=== PATIENT | female | born 1945 | race Caucasian/White ===

== ENCOUNTER → 2016-06-01 | Outpatient (CLI) | payer MEDICARE, OTHER ==
--- NOTE | 2016-06-01 11:43 | MM ---
Reason for exam: additional evaluation requested from prior study. Last mammogram was performed 1 year ago. History: Patient is postmenopausal. Benign MG pre op needle loc LT of the left breast, September 06, 2015. Physical Findings: Nurse did not find any significant physical abnormalities on exam. MG 3D Diag Mammo W/Cad DAMIEN Bilateral CC and MLO view(s) were taken. Prior study comparison: May 20, 2015, left breast MG 3d diag mammo w/cad LT. February 09, 2015, bilateral MG screening mammo w CAD. There are scattered fibroglandular densities. Surgical clips in the left breast. Surgical maker on left breast. These results were verbally communicated with the patient and result sheet given to the patient on 06/01/16. ASSESSMENT: Benign, BI-RAD 2 RECOMMENDATION: Routine screening mammogram of both breasts in 1 year.
== END | disposition home or self-care (01) ==
LOC: RADMAMWWP 10:39
PROVIDERS: ATTEND Surgery
DX: R92.8 Other abnormal and inconclusive findings on diagnostic imaging of breast (principal)
CPT/HCPCS: G0204; G0279

== ENCOUNTER → 2016-09-17 | Outpatient (CLI) | payer MEDICARE, OTHER ==
[~2016-09-17] MED LIST: REGADENOSON 0.4 MG/5 ML SYRINGE IV ONE
--- NOTE | 2016-09-17 10:57 | EST ---
DATE OF SERVICE: 09/17/2016 AGE: 71Y SEX: F HT: 5'7" WT: 267 lbs. Lexiscan Cardiolite Stress Test *Heart Rate Blood Pressure *Rest: 102 Rest: 185/76 * *Max. Achieved: 116 Maximum BP: 237/75 85% PMHR: 128 100% PMHR: 151 *METS: - INDICATIONS: Coronary artery disease. MEDICATIONS: - Baseline EKG revealed a sinus rhythm with sinus tachycardia without significant ST-T changes. With Lexiscan administration, patient complained of fatigue and transient nausea that resolved. Heart rate was about 110 beats per minute, blood pressure changed to 180/70 to 220/80 and came back to baseline. EKG revealed inferolateral ST abnormality of a mild degree raising the possibility of ischemia without subjective symptoms of angina or arrhythmia. By EKG criteria, this is a borderline positive stress test with Lexiscan administration, without subjective symptoms of angina. The nuclear scan results, which are more pertinent, will be reported by the radiologist.
--- NOTE | 2016-09-17 11:21 | NM ---
EXAMINATION TYPE: NM stress lexiscan cardiolite DATE OF EXAM: 09/17/2016 11:03 AM COMPARISON: 07/30/2015 HISTORY: Precordial chest pain TECHNIQUE: After the intravenous administration of 10.5 mCi Tc 99m Sestamibi - Cardiolite resting SP ECT images acquired 45 minutes post injection. The patient received 0.4mg Lexiscan, 26.6 mCi Tc 99m Sestamibi - Stress images obtained [address] injection FINDINGS: Review of stress and rest SPECT images demonstrates stress-induced decreased perfusion involving the lateral wall, cardiac apex as well as the anterior wall compatible with stress-induced ischemia. [place] d analysis shows normal wall motion with an estimated left ventricular ejection fraction of 48 %. Hyp okinesia anterior wall. Left ventricular cavity appears to be slightly enlarged. IMPRESSION: Findings compatible with stress-induced ischemia.
== END | disposition home or self-care (01) ==
LOC: RADNMMAIN 08:27
PROVIDERS: ATTEND Family Medicine
DX: I99.8 Other disorder of circulatory system (principal); I25.10 Atherosclerotic heart disease of native coronary artery without angina pectoris
CPT/HCPCS: 93017; 78452; A9500; J2785

== ENCOUNTER → 2016-09-23 | Outpatient (CLI) | payer MEDICARE, OTHER ==
[2016-09-23 17:28] LABS: CH 25.3; CHCM 30.5; HCT 37.8 % (34.0-46.0); HDW 2.58; HGB 11.7 gm/dL (11.4-16.0); Hypochromasia Moderate; MCH 25.7 pg (25.0-35.0); MCHC 30.9 g/dL (31.0-37.0); MCV 83.1 fL (80.0-100.0); RBC 4.55 m/uL (3.80-5.40); RDW 15.7 % (11.5-15.5); WBC 10.1 k/uL (3.8-10.6)
[2016-09-23 17:35] LABS: Anion Gap 10 mmol/L; Blood Urea Nitrogen 15 mg/dL (7-17); Carbon Dioxide 28 mmol/L (22-30); Chloride 100 mmol/L (98-107); Non-African American GFR(MDRD) >60 (>60 ml/min/1.73 sqM); Potassium 4.4 mmol/L (3.5-5.1); Sodium 138 mmol/L (137-145)
== END | disposition home or self-care (01) ==
LOC: LABPAT 16:48
PROVIDERS: ATTEND Internal Medicine Cardiovascular Disease
DX: Z01.812 Encounter for preprocedural laboratory examination (principal); R94.30 Abnormal result of cardiovascular function study, unspecified
CPT/HCPCS: 80051; 82565; 84520; 85027

== ENCOUNTER 2016-09-24 10:47 | Day surgery (SDC) | payer MEDICARE, OTHER ==
[2016-09-23 11:21] VITALS: BMI 41.5
[~2016-09-24 10:47] MED LIST changes: +ALPRAZolam 0.25 MG TAB PO PRN; +ASPIRIN 325 MG TAB PO ONE; +NITROGLYCERIN SL TABS 0.4 MG TAB SUBLINGUAL PRN; -REGADENOSON 0.4 MG/5 ML SYRINGE IV ONE; +SODIUM CHLORIDE 0.9% 1,000 ML in EMPTY BAG 1 BAG IV ONE
[2016-09-24 11:20] LABS: Glucose,Whole Blood 193 mg/dL (75-99)
[2016-09-24 11:21] VITALS: RESP 16
[2016-09-24] MEDS ORDERED: SODIUM CHLORIDE 0.9% 1,000 ML IV ONE (11:21)
[2016-09-24 11:26] LABS: Basophils % (A) 0 %; CH 25.2; CHCM 30.6; Eosinophils # (A) 0.2 k/uL (0-0.7); Eosinophils % (A) 2 %; HCT 40.5 % (34.0-46.0); HDW 2.63; HGB 12.5 gm/dL (11.4-16.0); Hypochromasia Moderate; Luc # (Auto) 0.21; Luc % (Auto) 2; Lymphocytes # (A) 2.5 k/uL (1.0-4.8); Lymphocytes % (A) 24 %; MCH 25.6 pg (25.0-35.0); MCHC 30.9 g/dL (31.0-37.0); MCV 82.9 fL (80.0-100.0); Mean Platelet Volume 6.9; Monocytes # (A) 0.4 k/uL (0-1.0); Monocytes % (A) 4 %; Neutrophils # (A) 7.2 k/uL (1.3-7.7); Neutrophils % (A) 68 %; RBC 4.88 m/uL (3.80-5.40); RDW 15.5 % (11.5-15.5); WBC 10.6 k/uL (3.8-10.6); WBC (Perox) 10.93
[2016-09-24 11:39] LABS: Anion Gap 9 mmol/L; Blood Urea Nitrogen 15 mg/dL (7-17); Calcium 9.5 mg/dL (8.4-10.2); Carbon Dioxide 29 mmol/L (22-30); Chloride 103 mmol/L (98-107); Glucose 180 mg/dL (74-99); Non-African American GFR(MDRD) >60 (>60 ml/min/1.73 sqM); Sodium 141 mmol/L (137-145)
[2016-09-24] MEDS ORDERED: LIDOCAINE 2% INJ 20 MG/ML (20 ML MDV) ONE (12:19)
[2016-09-24] MEDS ORDERED: MIDAZOLAM 2 MG/2 ML VIAL IV ONE (12:20)
[2016-09-24] MEDS ORDERED: fentaNYL (PF) 50 MCG/ML 2 ML AMP ONE (12:21)
[2016-09-24] MEDS ORDERED: MIDAZOLAM 2 MG/2 ML VIAL ONE (12:21)
[2016-09-24] MEDS ORDERED: fentaNYL (PF) 50 MCG/ML 2 ML AMP IV ONE ×2 (12:22)
[2016-09-24] MEDS ORDERED: LIDOCAINE 2% INJ 20 MG/ML SQ ONE (12:26)
[2016-09-24] MEDS ORDERED: IOHEXOL 350 MG/ML 125ML BOTTLE INJ ONE (12:49)
[2016-09-24] MEDS ORDERED: RX INFO: IV CONTRAST WAS GIVEN 1 EACH MISC MISCELLANE PRN (12:56)
[2016-09-24] MEDS ORDERED: SODIUM CHLORIDE 0.9% 1,000 ML IV SCH (13:00)
[2016-09-24 13:47] LABS: Glucose,Whole Blood 142 mg/dL (75-99)
[2016-09-24] MEDS ORDERED: NITROGLYCERIN SL TABS 0.4 MG TAB SUBLINGUAL PRN (15:02)
[2016-09-24] MEDS ORDERED: amLODIPine 5 MG TAB ONE (15:09)
[2016-09-24] MEDS ORDERED: NITROGLYCERIN OINT 1 INCH/GM PACKET TOPICAL ONE (15:09)
[2016-09-24] MEDS ORDERED: NITROGLYCERIN OINT 1 INCH/GM PACKET TOPICAL STA (15:15)
[2016-09-24] MEDS ORDERED: amLODIPine 5 MG TAB PO STA (15:15)
[2016-09-24] MEDS ORDERED: METOCLOPRAMIDE 10 MG TAB PO SCH (16:00)
[2016-09-24 17:17] LABS: Glucose,Whole Blood 188 mg/dL (75-99)
[2016-09-24] MEDS ORDERED: INSULIN LISPRO (humaLOG) 300 UNIT/3 ML VIAL SQ SCH (17:30)
[2016-09-24 19:35] VITALS: TEMP 98.5
[2016-09-24 20:24] LABS: Glucose,Whole Blood 222 mg/dL (75-99)
[2016-09-24] MEDS ORDERED: traMADol 50 MG TAB PO SCH (21:00)
[2016-09-24] MEDS ORDERED: METOPROLOL TARTRATE 50 MG TAB PO SCH (21:00)
[2016-09-24] MEDS ORDERED: MONTELUKAST 10 MG TAB PO SCH (21:00)
[2016-09-24] MEDS ORDERED: ASPIRIN 325 MG TAB PO SCH (21:00)
[2016-09-24] MEDS ORDERED: PANTOPRAZOLE 40 MG TABLET PO SCH (21:00)
[2016-09-24 21:08] VITALS: BP 161/78; PULSE 74
[2016-09-24 21:10] LABS: Glucose,Whole Blood 253 mg/dL (75-99)
[2016-09-25] MEDS ORDERED: CLOPIDOGREL 75 MG TAB PO SCH (09:00)
[2016-09-25] MEDS ORDERED: LISINOPRIL 20 MG TAB PO SCH (09:00)
[2016-09-25] MEDS ORDERED: ISOSORBIDE MONONITRATE ER 60 MG TAB.ER.24H PO SCH (09:00)
[2016-09-25] MEDS ORDERED: [UNRECOGNIZED DRUG - OTHER] PO SCH (09:00)
[2016-09-25] MEDS ORDERED: MAGNESIUM OXIDE 400 MG TAB PO SCH (09:00)
[2016-09-25] MEDS ORDERED: MULTIVITAMINS, THERA 1 EACH TAB PO SCH (12:00)
[2016-09-25] MEDS ORDERED: CHOLECALCIFEROL 1,000 UNIT TAB PO SCH (12:00)
[2016-09-25] MEDS ORDERED: B COMPLEX-VIT C-VIT E-ZINC 1 EACH TAB PO SCH (12:00)
--- NOTE | 2016-09-30 00:06 | P.PCN ---
Date of Procedure: 09/24/16 Preoperative Diagnosis: Chest pain and positive stress test. History of previous stent placement Postoperative Diagnosis: Stable coronary artery disease with patent stents Procedure(s) Performed: Implants: Indications for Procedure: Operative Findings: Description of Procedure: HISTORY: This is a 71-year-old female with history of multiple stents in the LAD , RCA and also circumflex was been experiencing increasing chest pains. Patient was evaluated by stress correlation study. This study was reported as showing ischemia in the anteroapical area. Patient is advised to have a cardiac catheterization for definitive diagnosis. CONSENT:I have discussed the risks, benefits and alternative therapies for the above-mentioned procedure and for both sedation/analgesia as well as necessary blood product administration, if indicated, as they pertain to this patient. The patient has indicated understanding and acceptance of the risks and procedures discussed. PROCEDURE: Patient was brought to the lab in a fasting state. Patient was give IV Versed and fentanyl for conscious sedation. The duration of the sedation was about 15-20 minutes. The right groin is infiltrated with lidocaine and right femoral artery was entered using Seldinger technique. A 6-Nepali catheter was left in place and selective coronary arteriography and left ventriculography was performed. Patient tolerated the procedure well. Femoral angiogram was performed and Angio-Seal was applied for hemostasis. No immediate complications were noted and patient was transferred to [facility] in a stable condition HEMODYNAMICS: The aortic pressure is 150/80. Left ankle end-diastolic pressure is 15-20. There was no gradient across the aortic valve. SELECTIVE CORONARY ARTERIOGRAPHY: LEFT MAIN: This is a normal length and patent. THE LEFT ANTERIOR DESCENDING CORONARY ARTERY: This is a good caliber vessel with patent stent in the proximal portion. There is a stenosis of the diagonal branch at the ostium which is chronic without any significant change. The second diagonal branch which also has ostial stenosis. THE LEFT CIRCUMFLEX AND IS CORONARY ARTERY: This is a good caliber vessel with a diffuse irregularities with patent stent in the midportion. THE RIGHT CORONARY ARTERY: This is a moderate caliber vessel giving rise to good-sized acute marginal branch. The vessel is patent with mild diffuse plaque without any significant focal lesion LEFT VENTRICULOGRAPHY: Not performed FINAL IMPRESSION: Stable coronary artery disease with patent stents in the LAD, circumflex and right coronary artery. Significant ostial stenosis of the first diagonal and also significant stenosis of the second diagonals, which is a small branch. These stenoses are stable PLAN: Maximum medical therapy and this factor modification PROGNOSIS: Fair
== END 2016-09-24 21:35 | disposition home or self-care (01) ==
LOC: CATHCVL 10:47 → 3OBS 11:15 → CATHCVL 21:35
PROVIDERS: ATTEND Internal Medicine Cardiovascular Disease
DX: I25.110 Atherosclerotic heart disease of native coronary artery with unstable angina pectoris (principal); Z95.5 Presence of coronary angioplasty implant and graft; I10 Essential (primary) hypertension; Z87.891 Personal history of nicotine dependence; E11.9 Type 2 diabetes mellitus without complications; Z79.4 Long term (current) use of insulin; Z79.84 Long term (current) use of oral hypoglycemic drugs; E78.2 Mixed hyperlipidemia; Z79.02 Long term (current) use of antithrombotics/antiplatelets; Z79.82 Long term (current) use of aspirin; Z79.891 Long term (current) use of opiate analgesic; Z79.899 Other long term (current) drug therapy
CPT/HCPCS: 93458; 80048; 85025; 99152; 99153; C1894; C1769; J2001; J2250; J3010; Q9967

== ENCOUNTER 2016-10-30 07:52 | Day surgery (SDC) | payer MEDICARE, OTHER ==
[2016-10-27 16:02] VITALS: BMI 41.3
[~2016-10-30 07:52] MED LIST changes: -ALPRAZolam 0.25 MG TAB PO PRN; -ASPIRIN 325 MG TAB PO ONE; +LACTATED RINGERS 1,000 ML IV SCH; +LIDOCAINE 1% 20 ML VIAL (10MG/ML) FOR IV START INTRADERMA PRN; -NITROGLYCERIN SL TABS 0.4 MG TAB SUBLINGUAL PRN; -SODIUM CHLORIDE 0.9% 1,000 ML in EMPTY BAG 1 BAG IV ONE
[2016-10-30 08:07] VITALS: RESP 16; TEMP 98.2
[2016-10-30 08:14] LABS: Glucose,Whole Blood 185 mg/dL (75-99)
[2016-10-30] MEDS ORDERED: PROPOFOL 10 MG/ML 20 ML VIAL IV ONE (08:22)
--- NOTE | 2016-10-30 08:35 | P.GSHP ---
History of Present Illness H&P Date: 10/30/16 Chief Complaint: GERD This is a 71-year-old female for from Dr. Medardo Cee. Patient presents today for EGD. She's had issues with GERD. Past Medical History Past Medical History: Asthma, Coronary Artery Disease (CAD), Chest Pain / Angina , COPD, Diabetes Mellitus, GERD/Reflux, Hyperlipidemia, Hypertension, Myocardial Infarction ([place]), Osteoarthritis (OA), Pneumonia, Sleep Apnea/CPAP/ BIPAP Additional Past Medical History / Comment(s): hx migraines, NEUROPATHY FEET, [place] x 2, no cpap used, Last Myocardial Infarction Date:: 02/2015 History of Any Multi-Drug Resistant Organisms: None Reported Past Surgical History: Appendectomy, Breast Surgery, Cholecystectomy, Heart Catheterization With Stent Additional Past Surgical History / Comment(s): left breast biopsy, Heart cath x 3 with stents (2008 & 2014)., 06/2013 thoracotomy R lung Past Anesthesia/Blood Transfusion Reactions: Family History of Problems w/ Anesthesia, Motion Sickness, Postoperative Nausea & Vomiting (PONV) Additional Past Anesthesia/Blood Transfusion Reaction / Comment(s): Pt has received blood without reaction, "sister had problem coming out" Date of Last Stent Placement:: 2014 Smoking Status: Former smoker - Past Family History Father Family Medical History: Coronary Artery Disease (CAD), Myocardial Infarction ([place] ) Additional Family Medical History / Comment(s): Father of a [place] at the age of 77yrs. Mother Family Medical History: Cancer Additional Family Medical History / Comment(s): Mother of a [place] at the age of 74yrs. Medications and Allergies Home Medications Medication Instructions Recorded Confirmed Type Aspirin EC [Ecotrin] 325 mg PO HS 02/26/15 10/30/16 History Cholecalciferol [Vitamin D3] 1,000 unit PO DAILY 02/26/15 10/30/16 History Insulin Aspart [NovoLOG Flexpen] 22 units SQ BID-W/MEALS 02/26/15 10/30/16 History Isosorbide Mononitrate ER [Imdur] 30 mg PO DAILY 02/26/15 10/30/16 History Metoclopramide [Reglan] 10 mg PO QID 02/26/15 10/30/16 History Multivitamins, Thera [Multivitamin 1 tab PO DAILY 02/26/15 10/30/16 History (formulary)] Simvastatin [Zocor] 20 mg PO HS 02/26/15 10/30/16 History Vitamin B Complex 1 cap PO DAILY 02/26/15 10/30/16 History Clopidogrel [Plavix] 75 mg PO QAM 09/05/15 10/30/16 History Omeprazole 20 mg PO HS 09/05/15 10/30/16 History metFORMIN HCL 1,000 mg PO BID 09/05/15 10/30/16 History traMADol HCL [Ultram] 50 mg PO Q12HR 09/23/16 10/30/16 History Fat Fightner 1 tab PO BID 10/27/16 10/30/16 History Lisinopril [Zestril] 40 mg PO DAILY 10/27/16 10/30/16 History Magnesium Oxide [Magnesium] 250 mg PO PC-SUPPER 10/27/16 10/30/16 History Allergies Allergy/AdvReac Type Severity Reaction Status Date / Time adhesive tape Allergy bruises Verified 10/30/16 07:56 Surgical - Exam Vital Signs Temp Pulse Resp BP Pulse Ox 98.2 F 83 16 144/62 98 10/30/16 08:06 10/30/16 08:06 10/30/16 08:06 10/30/16 08:06 10/30/16 08:06 - General well developed, no distress - Eyes PERRL - ENT normal pinna - Neck no masses - Respiratory normal expansion, normal respiratory effort - Cardiovascular Rhythm: regular - Abdomen Abdomen: soft, non tender Results - Labs Abnormal Lab Results - Last 24 Hours (Table) 10/30/16 Range/Units 08:10 POC Glucose (mg/dL) 185 H (75-99) mg/dL Assessment and Plan Plan: GERD. We'll perform EGD.
--- NOTE | 2016-10-30 08:43 | P.OP ---
Date of Procedure: 10/30/16 Preoperative Diagnosis: GERD Postoperative Diagnosis: Gastritis Mild esophagitis Procedure(s) Performed: EGD Implants: Anesthesia: MAC Surgeon: Gino Santacruz Pathology: other (Antrum, esophagus) Condition: stable Disposition: PACU Indications for Procedure: Operative Findings: Description of Procedure: The patient's placed on the endoscopy table lateral position. She received IV sedation. The gastro-placed oropharynx and passed into the esophagus and stomach. Scope was then placed through the pylorus. The first and second portion of the duodenum appeared normal. The scope was then brought back the antrum and this appeared mildly inflamed. A biopsy was performed. The scope was then retroflexed and remainder stomach appeared normal. There was a minimal hiatal hernia. The GE junction was at 40 cm. The distal esophagus appeared mildly inflamed a biopsies performed. The proximal esophagus appeared normal. The scope was withdrawn for patient.
[2016-10-30 09:00] VITALS: BP 104/60; PULSE 67
[2016-10-30 09:00] LABS: Glucose,Whole Blood 197 mg/dL (75-99)
== END 2016-10-30 09:29 | disposition home or self-care (01) ==
LOC: ORWHC2ENDO 07:52
PROVIDERS: ATTEND Surgery
DX: K21.0 Gastro-esophageal reflux disease with esophagitis (principal); K29.50 Unspecified chronic gastritis without bleeding; K44.9 Diaphragmatic hernia without obstruction or gangrene; I25.10 Atherosclerotic heart disease of native coronary artery without angina pectoris; I10 Essential (primary) hypertension; Z95.5 Presence of coronary angioplasty implant and graft; E78.5 Hyperlipidemia, unspecified; J44.9 Chronic obstructive pulmonary disease, unspecified; G47.33 Obstructive sleep apnea (adult) (pediatric); E11.9 Type 2 diabetes mellitus without complications; Z79.4 Long term (current) use of insulin; Z79.84 Long term (current) use of oral hypoglycemic drugs; I25.2 Old myocardial infarction; Z87.891 Personal history of nicotine dependence; M19.90 Unspecified osteoarthritis, unspecified site; Z79.02 Long term (current) use of antithrombotics/antiplatelets; Z79.891 Long term (current) use of opiate analgesic; Z79.899 Other long term (current) drug therapy; Z91.09 Other allergy status, other than to drugs and biological substances
CPT/HCPCS: 88305; 88342; 43239; J2704

== ENCOUNTER 2017-11-28 19:44 | Inpatient (IN) | payer MEDICARE, OTHER ==
[2017-11-28] MEDS ORDERED: ASPIRIN 81 MG PO STA (20:06)
[2017-11-28] MEDS ORDERED: HEPARIN SODIUM,PORCINE 5,000 UNIT/ML 1 ML VIAL IV STA (20:19)
[2017-11-28] MEDS ORDERED: NITROGLYCERIN OINT 1 INCH/GM PACKET TOPICAL STA (20:19)
--- NOTE | 2017-11-28 20:20 | ED ---
General Adult HPI - General Chief complaint: Chest Pain Stated complaint: chest pain Time Seen by Provider: 11/28/17 20:06 Source: patient Mode of arrival: wheelchair Limitations: no limitations - History of Present Illness Initial comments: Lorelei is a 72-year-old female with extensive past medical history most significant for coronary artery disease status post stenting multiple times in the past. The patient presents to the emergency department today for evaluation of chest pain. Patient reports that over the past month she's had increasing frequency of chest pain which she describes as feeling as though her heart is squeezing and palpating. She reports that she has made an appointment with her primary care physician to follow up about this. However over the past 2 days the patient states that she has had nearly constant chest pain. It's worse when she is laying down and she begins to feel palpitations and chest pressure. She states that she's taken approximately 5 nitro per day for the past 2-3 days due to the pain. She reports that her pain improves momentarily after the nitro but then recurs. Patient reports that this afternoon she attempted to rest but began feeling palpitations and chest pain. She then stood and felt as though there is a knife stabbing through her chest and that her heart squeezing. She took a nitro with only minimal improvement which time she told her son who decided to bring her to the ER for evaluation. Is currently on Plavix and states that she is compliant with her daily full dose aspirin. Her last aspirin dose was last night. Her last nitro was a couple hours prior to arrival. Patient also reports episodic shortness of breath, she does have a history of COPD. She has attempted using breathing treatments for improvement of her chest pain with minimal improvement. She denies any fevers, chills, nausea, vomiting, change in appetite or activity. She denies any change in bowel or bladder habits. Patient reports that she previously followed closely with the sales representative supervisor however due to insurance problems she has been unable follow up recently. She states she is concerned because she is about to run out of her nitro doesn't know what to do that she's having more chest pain. - Related Data Home Medications Medication Instructions Recorded Confirmed Aspirin EC [Ecotrin] 325 mg PO HS 02/26/15 11/28/17 Cholecalciferol [Vitamin D3] 1,000 unit PO DAILY 02/26/15 11/28/17 Insulin Aspart [NovoLOG Flexpen] 22 units SQ BID-W/MEALS 02/26/15 11/28/17 Isosorbide Mononitrate ER [Imdur] 30 mg PO DAILY 02/26/15 11/28/17 Metoclopramide [Reglan] 10 mg PO QID 02/26/15 11/28/17 Multivitamins, Thera [Multivitamin 1 tab PO DAILY 02/26/15 11/28/17 (formulary)] Simvastatin [Zocor] 20 mg PO HS 02/26/15 11/28/17 Vitamin B Complex 1 cap PO DAILY 02/26/15 11/28/17 Clopidogrel [Plavix] 75 mg PO QAM 09/05/15 11/28/17 metFORMIN HCL 1,000 mg PO BID 09/05/15 11/28/17 Lisinopril [Zestril] 40 mg PO DAILY 10/27/16 11/28/17 Magnesium Oxide [Magnesium] 250 mg PO PC-SUPPER 10/27/16 11/28/17 Melatonin 5 mg PO HS 11/28/17 11/28/17 Multivit with Calcium,Iron,Min 1 tab PO DAILY 11/28/17 11/28/17 [Women's Multivitamin] Quinapril HCl 10 mg PO DAILY 11/28/17 11/28/17 rOPINIRole HCL 0.5 mg PO HS 11/28/17 11/28/17 Previous Rx's Medication Instructions Recorded Sucralfate [Carafate] 1 gm PO QID #120 tablet 03/04/15 Metoprolol Tartrate [Lopressor] 50 mg PO BID #60 tab 10/25/15 Montelukast Sodium [Singulair] 10 mg PO HS #30 tab 10/25/15 Nitroglycerin Sl Tabs [Nitrostat] 0.4 mg SUBLINGUAL Q5M PRN #0 tab 09/24/16 Allergies Allergy/AdvReac Type Severity Reaction Status Date / Time adhesive tape Allergy bruises Verified 11/28/17 19:51 Review of Systems ROS Statement: Those systems with pertinent positive or pertinent negative responses have been documented in the HPI. ROS Other: All systems not noted in ROS Statement are negative. Constitutional: Denies: fever Respiratory: Reports: dyspnea, wheezes. Denies: cough Cardiovascular: Reports: chest pain, palpitations, dyspnea on exertion, edema. Denies: syncope Endocrine: Denies: fatigue Gastrointestinal: Denies: abdominal pain, nausea, vomiting Genitourinary: Denies: urgency, dysuria Musculoskeletal: Denies: back pain Skin: Denies: rash Neurological: Denies: headache, weakness Psychiatric: Denies: anxiety, depression Hematological/Lymphatic: Reports: easy bleeding, easy bruising Past Medical History Past Medical History: Asthma, Coronary Artery Disease (CAD), Chest Pain / Angina , COPD, Diabetes Mellitus, GERD/Reflux, Hyperlipidemia, Hypertension, Myocardial Infarction ([place]), Osteoarthritis (OA), Pneumonia, Sleep Apnea/CPAP/ BIPAP Additional Past Medical History / Comment(s): hx migraines, NEUROPATHY FEET, [place] x 2, no cpap used, restless leg syndrome Last Myocardial Infarction Date:: 02/2015 History of Any Multi-Drug Resistant Organisms: None Reported Past Surgical History: Appendectomy, Breast Surgery, Cholecystectomy, Heart Catheterization With Stent Additional Past Surgical History / Comment(s): left breast biopsy, Heart cath x 3 with stents (2008 & 2014)., 06/2013 thoracotomy R lung Past Anesthesia/Blood Transfusion Reactions: Family History of Problems w/ Anesthesia, Motion Sickness, Postoperative Nausea & Vomiting (PONV) Additional Past Anesthesia/Blood Transfusion Reaction / Comment(s): Pt has received blood without reaction, "sister had problem coming out" Date of Last Stent Placement:: 2014 Past Psychological History: No Psychological Hx Reported Smoking Status: Former smoker Past Alcohol Use History: None Reported Past Drug Use History: None Reported - Past Family History Father Family Medical History: Coronary Artery Disease (CAD), Myocardial Infarction ([place] ) Additional Family Medical History / Comment(s): Father of a [place] at the age of 77yrs. Mother Family Medical History: Cancer Additional Family Medical History / Comment(s): Mother of a [place] at the age of 74yrs. General Exam Limitations: no limitations General appearance: alert, in no apparent distress Head exam: Present: atraumatic, normocephalic Eye exam: Present: PERRL ENT exam: Present: normal exam Respiratory exam: Present: normal lung sounds bilaterally Cardiovascular Exam: Present: regular rate GI/Abdominal exam: Present: soft. Absent: distended Rectal exam: Present: deferred Extremities exam: Present: normal inspection Back exam: Present: normal inspection Neurological exam: Present: alert, oriented X3 Psychiatric exam: Present: normal affect, normal mood Skin exam: Present: warm, dry Course Vital Signs 11/28/17 11/28/17 11/28/17 19:47 20:12 20:43 Temperature 99.1 F Pulse Rate 91 87 84 Respiratory 18 22 18 Rate Blood Pressure 216/99 184/72 181/77 O2 Sat by Pulse 92 L 95 95 Oximetry Medical Decision Making - Medical Decision Making The patient was seen and evaluated, history was obtained from the patient and son at bedside Patient has a significant cardiac history including multiple stents, currently on Plavix and aspirin. Patient increasingly experiencing chest pain which is relieved momentarily by nitro. Patient reports taking 5 nitro per day in the past 2 days. Workup was ordered EKG reveals sinus rhythm with a first-degree AV block. There are no acute ST elevations or depressions. Cardiac workup, nitro ointment, aspirin and heparin were ordered Labs with no elevation of troponin cardiac markers Chest x-ray with no acute findings EKG was normal sinus rhythm, rate of 93, normal axis, prolonged NM 212, acute ST elevations or depressions. No evidence of acute ischemia or infarction Patient care was discussed with patient's PCP Dr. Grande who agrees with plan to admit the patient for cardiology evaluation. - Lab Data Result diagrams: 11/28/17 20:41 11/28/17 19:55 Lab Results 11/28/17 11/28/17 11/28/17 Range/Units 19:55 19:55 19:55 WBC (3.8-10.6) k/uL RBC (3.80-5.40) m/uL Hgb (11.4-16.0) gm/dL Hct (34.0-46.0) % MCV (80.0-100.0) fL MCH (25.0-35.0) pg MCHC (31.0-37.0) g/dL RDW (11.5-15.5) % Plt Count (150-450) k/uL Neutrophils % % Lymphocytes % % Monocytes % % Eosinophils % % Basophils % % Neutrophils # (1.3-7.7) k/uL Lymphocytes # (1.0-4.8) k/uL Monocytes # (0-1.0) k/uL Eosinophils # (0-0.7) k/uL Basophils # (0-0.2) k/uL Anisocytosis Microcytosis PT 9.3 (9.0-12.0) sec INR 0.9 (<1.2) APTT 18.0 L (22.0-30.0) sec Sodium 138 (137-145) mmol/L Potassium 4.4 (3.5-5.1) mmol/L Chloride 103 (98-107) mmol/L Carbon Dioxide 25 (22-30) mmol/L Anion Gap 10 mmol/L BUN 26 H (7-17) mg/dL Creatinine 0.80 (0.52-1.04) mg/dL Est GFR (CKD-EPI)AfAm 87 (>60 ml/min/1.73 sqM) Est GFR (CKD-EPI)NonAf 75 (>60 ml/min/1.73 sqM) Glucose 162 H (74-99) mg/dL Calcium 9.9 (8.4-10.2) mg/dL Magnesium 1.6 (1.6-2.3) mg/dL Total Bilirubin 0.2 (0.2-1.3) mg/dL AST 33 (14-36) U/L ALT 42 (9-52) U/L Alkaline Phosphatase 115 (38-126) U/L Total Creatine Kinase 30 (30-135) U/L CK-MB (CK-2) 0.6 (0.0-2.4) ng/mL CK-MB (CK-2) Rel Index 2.0 Troponin I <0.012 (0.000-0.034) ng/mL Total Protein 6.5 (6.3-8.2) g/dL Albumin 3.7 (3.5-5.0) g/dL 11/28/17 Range/Units 20:41 WBC 9.6 (3.8-10.6) k/uL RBC 5.03 (3.80-5.40) m/uL Hgb 11.9 (11.4-16.0) gm/dL Hct 38.5 (34.0-46.0) % MCV 76.5 L (80.0-100.0) fL MCH 23.7 L (25.0-35.0) pg MCHC 31.0 (31.0-37.0) g/dL RDW 16.2 H (11.5-15.5) % Plt Count 245 (150-450) k/uL Neutrophils % 61 % Lymphocytes % 29 % Monocytes % 6 % Eosinophils % 2 % Basophils % 0 % Neutrophils # 5.8 (1.3-7.7) k/uL Lymphocytes # 2.8 (1.0-4.8) k/uL Monocytes # 0.5 (0-1.0) k/uL Eosinophils # 0.2 (0-0.7) k/uL Basophils # 0.0 (0-0.2) k/uL Anisocytosis Slight Microcytosis Slight PT (9.0-12.0) sec INR (<1.2) APTT (22.0-30.0) sec Sodium (137-145) mmol/L Potassium (3.5-5.1) mmol/L Chloride (98-107) mmol/L Carbon Dioxide (22-30) mmol/L Anion Gap mmol/L BUN (7-17) mg/dL Creatinine (0.52-1.04) mg/dL Est GFR (CKD-EPI)AfAm (>60 ml/min/1.73 sqM) Est GFR (CKD-EPI)NonAf (>60 ml/min/1.73 sqM) Glucose (74-99) mg/dL Calcium (8.4-10.2) mg/dL Magnesium (1.6-2.3) mg/dL Total Bilirubin (0.2-1.3) mg/dL AST (14-36) U/L ALT (9-52) U/L Alkaline Phosphatase (38-126) U/L Total Creatine Kinase (30-135) U/L CK-MB (CK-2) (0.0-2.4) ng/mL CK-MB (CK-2) Rel Index Troponin I (0.000-0.034) ng/mL Total Protein (6.3-8.2) g/dL Albumin (3.5-5.0) g/dL Disposition Clinical Impression: Chest pain Disposition: ADMITTED IP TO THIS HOSP Referrals: Medardo Grande MD [Primary Care Provider] - 1-2 days Decision Time: 21:16
[2017-11-28] MEDS ORDERED: HEPARIN SOD,PORK IN 0.45% NACL 25,000 UNIT in 0.45% NACL 1 500ML.BAG IV SCH (20:30)
[2017-11-28 20:40] LABS: Albumin 3.7 g/dL (3.5-5.0); Calcium 9.9 mg/dL (8.4-10.2); Magnesium 1.6 mg/dL (1.6-2.3); Potassium 4.4 mmol/L (3.5-5.1); Total Bilirubin 0.2 mg/dL (0.2-1.3); Total Protein 6.5 g/dL (6.3-8.2)
--- NOTE | 2017-11-28 20:42 | XR ---
EXAMINATION TYPE: XR chest 2V DATE OF EXAM: 11/28/2017 COMPARISON: Prior chest 10/22/2015 HISTORY: Chest pain TECHNIQUE: Frontal and lateral views of the chest are obtained. FINDINGS: There is no focal air space opacity, pleural effusion, or pneumothorax seen. The cardiac silhouette size is stable. There is chronic elevation of the right hemidiaphragm. The osseous struct ures are unchanged, deformity the posterior right sixth rib again noted. There are overlying cardiac leads. IMPRESSION: No acute cardiopulmonary process.
[2017-11-28 20:45] LABS: INR 0.9 (<1.2); Prothrombin Time 9.3 sec (9.0-12.0)
[2017-11-28 20:49] LABS: Anisocytosis Slight; Basophils % (A) 0 %; Eosinophils # (A) 0.2 k/uL (0-0.7); Eosinophils % (A) 2 %; HCT 38.5 % (34.0-46.0); HGB 11.9 gm/dL (11.4-16.0); Lymphocytes # (A) 2.8 k/uL (1.0-4.8); Lymphocytes % (A) 29 %; MCH 23.7 pg (25.0-35.0); MCV 76.5 fL (80.0-100.0); Mean Platelet Volume 6.8; Microcytosis Slight; Monocytes # (A) 0.5 k/uL (0-1.0); Monocytes % (A) 6 %; Neutrophils # (A) 5.8 k/uL (1.3-7.7); Neutrophils % (A) 61 %; Platelet Count 245 k/uL (150-450); RBC 5.03 m/uL (3.80-5.40); RDW 16.2 % (11.5-15.5); WBC 9.6 k/uL (3.8-10.6)
[2017-11-28 20:56] LABS: Creatine Kinase 30 U/L (30-135)
[2017-11-28 21:05] LABS: Creatine Kinase MB 0.6 ng/mL (0.0-2.4)
[2017-11-28 21:09] LABS: Troponin I <0.012 ng/mL (0.000-0.034)
[2017-11-28] MEDS ORDERED: NALOXONE 0.4 MG/ML 1 ML VIAL IV PRN (21:16)
[2017-11-28 22:33] VITALS: BMI 42.3
[2017-11-29] MEDS: METOCLOPRAMIDE 10 MG TAB PO SCH ×5 (00:51→20:34)
[2017-11-29] MEDS: METOPROLOL TARTRATE 50 MG TAB PO SCH ×3 (00:52→20:34)
[2017-11-29] MEDS: MELATONIN 5 MG TABLET PO SCH ×2 (00:52→20:34)
[2017-11-29] MEDS: MONTELUKAST 10 MG TAB PO SCH ×2 (00:52→20:34)
[2017-11-29] MEDS: metFORMIN 500 MG TAB PO SCH ×3 (00:52→18:02)
[2017-11-29] MEDS: SUCRALFATE 1 GM TAB PO SCH ×5 (00:52→20:34)
[2017-11-29] MEDS: ATORVASTATIN 10 MG TAB PO SCH ×2 (01:33→20:34)
[2017-11-29 07:58] LABS: Glucose,Whole Blood 194 mg/dL (75-99)
[2017-11-29 08:05] LABS: Creatine Kinase 29 U/L (30-135)
[2017-11-29 08:18] LABS: Creatine Kinase MB 0.8 ng/mL (0.0-2.4); Troponin I <0.012 ng/mL (0.000-0.034)
[2017-11-29] MEDS ORDERED: AMINOPHYLLINE 500 MG/20 ML VIAL IV PRN (08:36)
[2017-11-29] MEDS ORDERED: REGADENOSON 0.4 MG/5 ML SYRINGE IV ONE (08:36)
--- NOTE | 2017-11-29 08:54 | P.CRDCN ---
History of Present Illness History of present illness: Patient interviewed and examined. Known CAD presenting with recurrent chest discomfort when she lies flat in bed that is relieved with nitroglycerin. Suggest proceed with Lexiscan cardio light stress test and further recommendations thereafter. Please see full dictation is practitioner Past Medical History Past Medical History: Asthma, Coronary Artery Disease (CAD), Chest Pain / Angina , COPD, Diabetes Mellitus, GERD/Reflux, Hyperlipidemia, Hypertension, Myocardial Infarction ([place]), Osteoarthritis ([place]), Pneumonia, Sleep Apnea/CPAP/ BIPAP Additional Past Medical History / Comment(s): hx migraines, NEUROPATHY FEET, [place] x 2, no cpap used, restless leg syndrome Last Myocardial Infarction Date:: 02/2015 History of Any Multi-Drug Resistant Organisms: None Reported Past Surgical History: Appendectomy, Breast Surgery, Cholecystectomy, Heart Catheterization With Stent Additional Past Surgical History / Comment(s): left breast biopsy, Heart cath x 3 with stents (2008 & 2014)., 06/2013 thoracotomy R lung Past Anesthesia/Blood Transfusion Reactions: Family History of Problems w/ Anesthesia, Motion Sickness, Postoperative Nausea & Vomiting (PONV) Additional Past Anesthesia/Blood Transfusion Reaction / Comment(s): Pt has received blood without reaction, "sister had problem coming out" Date of Last Stent Placement:: 2014 Past Psychological History: No Psychological Hx Reported Additional Psychological History / Comment(s): claustrophobia Smoking Status: Former smoker Past Alcohol Use History: None Reported Additional Past Alcohol Use History / Comment(s): STARTED SMOKING AGE 18 (1963) AND QUIT 1994. SMOKED 1 PPD. STATES SHE IS AN ALCOHOLIC AND QUIT DRINKING 27 yrs ago Past Drug Use History: None Reported - Past Family History Father Family Medical History: Coronary Artery Disease (CAD), Myocardial Infarction ([place] ) Additional Family Medical History / Comment(s): Father of a [place] at the age of 77yrs. Mother Family Medical History: Cancer Additional Family Medical History / Comment(s): Mother of a [place] at the age of 74yrs. Medications and Allergies Home Medications Medication Instructions Recorded Confirmed Type Aspirin EC [Ecotrin] 325 mg PO HS 02/26/15 11/28/17 History Cholecalciferol [Vitamin D3] 1,000 unit PO DAILY 02/26/15 11/28/17 History Insulin Aspart [NovoLOG Flexpen] 22 units SQ BID-W/MEALS 02/26/15 11/28/17 History Isosorbide Mononitrate ER [Imdur] 30 mg PO DAILY 02/26/15 11/28/17 History Metoclopramide [Reglan] 10 mg PO QID 02/26/15 11/28/17 History Multivitamins, Thera [Multivitamin 1 tab PO DAILY 02/26/15 11/28/17 History (formulary)] Simvastatin [Zocor] 20 mg PO HS 02/26/15 11/28/17 History Vitamin B Complex 1 cap PO DAILY 02/26/15 11/28/17 History Sucralfate [Carafate] 1 gm PO QID #120 tablet 03/04/15 11/28/17 Rx Clopidogrel [Plavix] 75 mg PO QAM 09/05/15 11/28/17 History metFORMIN HCL 1,000 mg PO BID 09/05/15 11/28/17 History Metoprolol Tartrate [Lopressor] 50 mg PO BID #60 tab 10/25/15 11/28/17 Rx Montelukast Sodium [Singulair] 10 mg PO HS #30 tab 10/25/15 11/28/17 Rx Nitroglycerin Sl Tabs [Nitrostat] 0.4 mg SUBLINGUAL Q5M PRN #0 tab 09/24/16 Rx Lisinopril [Zestril] 40 mg PO DAILY 10/27/16 11/28/17 History Magnesium Oxide [Magnesium] 250 mg PO PC-SUPPER 10/27/16 11/28/17 History Melatonin 5 mg PO HS 11/28/17 11/28/17 History Multivit with Calcium,Iron,Min 1 tab PO DAILY 11/28/17 11/28/17 History [Women's Multivitamin] Quinapril HCl 10 mg PO DAILY 11/28/17 11/28/17 History rOPINIRole HCL 0.5 mg PO HS 11/28/17 11/28/17 History Allergies Allergy/AdvReac Type Severity Reaction Status Date / Time adhesive tape Allergy bruises Verified 11/28/17 19:51 Physical Exam Vitals: Vital Signs Temp Pulse Pulse Resp BP BP BP 11/29/17 08:07 11/29/17 08:00 98.1 F 68 18 163/73 11/29/17 04:00 98.5 F 73 16 167/90 11/29/17 03:41 16 11/29/17 00:00 73 16 11/28/17 22:00 98.3 F 79 16 168/84 11/28/17 21:30 98.0 F 77 18 164/75 11/28/17 20:43 84 18 181/77 11/28/17 20:12 87 22 184/72 11/28/17 19:47 99.1 F 91 18 216/99 Pulse Ox 11/29/17 08:07 96 11/29/17 08:00 96 11/29/17 04:00 96 11/29/17 03:41 11/29/17 00:00 11/28/17 22:00 93 L 11/28/17 21:30 99 11/28/17 20:43 95 11/28/17 20:12 95 11/28/17 19:47 92 L Intake and Output 11/28/17 11/29/17 11/29/17 22:59 06:59 14:59 Intake Total 136.101 Balance 136.101 Intake: Intake, IV Titration 136.101 Amount Heparin Sod,Pork in 0.45% 136.101 NaCl 25,000 unit In 0.45 % NaCl 1 500ml.bag @ 8 UNITS/KG/HR 19.63 mls/hr IV .Q24H [facility] Rx#: [id number] Other: Voiding Method Toilet Toilet # Voids 1 3 Weight 122.742 kg Results 11/28/17 20:41 11/28/17 19:55 Cardiac Enzymes 11/28/17 11/28/17 11/29/17 Range/Units 19:55 19:55 06:53 AST 33 (14-36) U/L CK-MB (CK-2) 0.6 0.8 (0.0-2.4) ng/mL Troponin I <0.012 <0.012 (0.000-0.034) ng/mL Coagulation 11/28/17 11/29/17 Range/Units 19:55 03:21 PT 9.3 (9.0-12.0) sec APTT 18.0 L 25.3 (22.0-30.0) sec CBC 11/28/17 Range/Units 20:41 WBC 9.6 (3.8-10.6) k/uL RBC 5.03 (3.80-5.40) m/uL Hgb 11.9 (11.4-16.0) gm/dL Hct 38.5 (34.0-46.0) % Plt Count 245 (150-450) k/uL Comprehensive Metabolic Panel 11/28/17 Range/Units 19:55 Sodium 138 (137-145) mmol/L Potassium 4.4 (3.5-5.1) mmol/L Chloride 103 (98-107) mmol/L Carbon Dioxide 25 (22-30) mmol/L BUN 26 H (7-17) mg/dL Creatinine 0.80 (0.52-1.04) mg/dL Glucose 162 H (74-99) mg/dL Calcium 9.9 (8.4-10.2) mg/dL AST 33 (14-36) U/L ALT 42 (9-52) U/L Alkaline Phosphatase 115 (38-126) U/L Total Protein 6.5 (6.3-8.2) g/dL Albumin 3.7 (3.5-5.0) g/dL Current Medications Generic Name Dose Route Start Last Admin Trade Name Freq PRN Reason Stop Dose Admin Aminophylline 100 mg 11/29/17 08:36 Aminophylline IV 11/29/17 23:59 ONCE PRN Patient Response Atorvastatin Calcium 10 mg 11/28/17 23:45 11/29/17 01:33 Lipitor PO Not Given HS [facility] Cholecalciferol 1,000 unit 11/29/17 09:00 Vitamin D3 PO DAILY [facility] Clopidogrel Bisulfate 75 mg 11/29/17 09:00 Plavix PO QAM [facility] Insulin Aspart 22 unit 11/29/17 07:30 Novolog SQ BID-W/MEALS [facility] Isosorbide Mononitrate 30 mg 11/29/17 09:00 Imdur PO DAILY [facility] Lisinopril 40 mg 11/29/17 09:00 Zestril PO DAILY [facility] Magnesium Oxide 200 mg 11/29/17 18:30 Mag-Ox PO PC-SUPPER [facility] Melatonin 5 mg 11/28/17 23:45 11/29/17 00:52 Melatonin PO 5 mg HS [facility] Administration Metformin HCl 1,000 mg 11/28/17 23:45 11/29/17 00:52 Glucophage PO 1,000 mg AC-BID [facility] Administration Metoclopramide HCl 10 mg 11/28/17 23:45 11/29/17 00:51 Reglan PO 10 mg QID [facility] Administration Metoprolol Tartrate 50 mg 11/28/17 23:45 11/29/17 00:52 Lopressor PO 50 mg BID [facility] Administration Montelukast Sodium 10 mg 11/28/17 23:45 11/29/17 00:52 Singulair PO 10 mg HS [facility] Administration Multivitamins 1 each 11/29/17 09:00 Theragran PO DAILY [facility] Naloxone HCl 0.2 mg 11/28/17 21:16 Narcan IV Q2M PRN Opioid Reversal Ropinirole HCl 0.5 mg 11/28/17 23:45 11/29/17 00:51 Requip PO 0.5 mg HS [facility] Administration Sucralfate 1 gm 11/28/17 23:45 11/29/17 00:52 Carafate PO 1 gm ACHS [facility] Administration Vitamin B Complex/Vit C/Vit E/Zinc 1 each 11/29/17 09:00 Z-Bec PO DAILY [facility] Intake and Output 11/28/17 11/29/17 11/29/17 22:59 06:59 14:59 Intake Total 136.101 Balance 136.101 Intake: Intake, IV Titration 136.101 Amount Heparin Sod,Pork in 0.45% 136.101 NaCl 25,000 unit In 0.45 % NaCl 1 500ml.bag @ 8 UNITS/KG/HR 19.63 mls/hr IV .Q24H [facility] Rx#: [id number] Other: Voiding Method Toilet Toilet # Voids 1 3 Weight 122.742 kg 11/28/17 20:41 11/28/17 19:55
[2017-11-29] MEDS: B COMPLEX-VIT C-VIT E-ZINC 1 EACH TAB PO SCH (08:56)
[2017-11-29] MEDS: MULTIVITAMINS, THERA 1 EACH TAB PO SCH (08:56)
[2017-11-29] MEDS: CHOLECALCIFEROL 1,000 UNIT TAB PO SCH (08:56)
[2017-11-29] MEDS: CLOPIDOGREL 75 MG TAB PO SCH (08:56)
[2017-11-29] MEDS ORDERED: NON-FORMULARY DRUG (Multivit With Calcium,Iron,Min [Women's Multivitamin] 1 TAB) PO SCH (09:00)
[2017-11-29] MEDS ORDERED: LISINOPRIL 20 MG TAB PO SCH (09:00)
[2017-11-29] MEDS ORDERED: QUINAPRIL HCL 10 MG PO SCH (09:00)
--- NOTE | 2017-11-29 11:28 | HP ---
HISTORY AND PHYSICAL CHIEF COMPLAINT: A 72-year-old white female with recurrent chest pain when she lies flat in bed. Relieved with nitroglycerin. Admitted to rule out myocardial infarct. No tachypnea, tachycardia. No dysuria. No hemoptysis, no lightheadedness, dizziness or syncope. PAST MEDICAL HISTORY: Coronary artery disease, chest pain, angina, diabetes mellitus, GERD, dyslipidemia, hypertension, myocardial infarction, osteoarthritis, pneumonia, sleep apnea, restless legs syndrome, neuropathy of the feet, migraines. SURGICAL HISTORY: Appendectomy, breast surgery, cholecystectomy, heart catheterization with stents, left breast biopsy, thoracotomy right lung. SOCIAL HISTORY: Former smoker. No alcohol. Started smoking at 18, one pack a day, quit 27 years ago. FAMILY HISTORY: Father, coronary disease, myocardial infarction. Mother with cancer, age 74. MEDICATIONS INCLUDE: 1. Ecotrin. 2. Vitamin D. 3. Novolog Flex Pen. 4. Imdur. 5. Reglan. 6. Multivitamin. 7. Zocor. 8. Vitamin B. 9. Carafate. 10.[QAMARKER. 11.Metformin. 12.Metoprolol. 13.Singular. 14.Nitrostat. 15.Zestril. 16.Magnesium. 17.Quinapril. 18. . ALLERGIES: ADHESIVE TAPE. PHYSICAL EXAM: Temp 98.1, pulse 60s to 70s, blood pressure 160s to 216/70s to 90s, O2 92%-98% on room air. CARDIOVASCULAR: S1, S2. LUNGS: Scattered wheeze x4. GI: Soft, distant endocrine, BMI is over 40. : No suprapubic tenderness. HEMATOLOGIC: Negative Homans VASCULAR: Normal dorsalis pedis, posterior tibial pulses. BUN 26, creatinine 0.8. White count 9.6, hemoglobin is 11.9, BUN is 138, potassium 4.4. ASSESSMENT: 1. Atypical chest pain. Rule out myocardial infarction. 2. Asthma. 3. Coronary artery disease. 4. Chronic obstructive pulmonary disease. 5. Diabetes mellitus. 6. Gastroesophageal reflux disease. 7. Dyslipidemia. 8. Hypertension. 9. Osteoarthritis. 10.Sleep apnea. 11.History of migraines. 12.Neuropathy. 13.Restless legs syndrome. PLAN: Continue with current treatment. Stress test will be done to rule out myocardial infarction. Follow up in next 24 to 48 hours. MMODL / IJN: [id number] /
[2017-11-29] MEDS: HYDROcodone/APAP 7.5-325MG 1 EACH TAB PO PRN (11:37)
[2017-11-29] MEDS: ISOSORBIDE MONONITRATE ER 30 MG TAB.ER.24H PO SCH (12:05)
[2017-11-29 12:14] LABS: Hemoglobin A1C 7.9 % (4.0-6.0)
[2017-11-29 12:29] LABS: Glucose,Whole Blood 228 mg/dL (75-99)
[2017-11-29] MEDS: INSULIN ASPART 100 UNIT/ML 1 ML 10 ML VIAL SQ SCH ×2 (12:55→20:35)
--- NOTE | 2017-11-29 13:12 | P.CRDCN ---
History of Present Illness History of present illness: Mrs. Brand is a pleasant 72-year-old female past medical history significant for coronary artery disease, asthma, COPD, diabetes mellitus, dyslipidemia, hypertension, sleep apnea and gastroesophageal reflux disease. She follows with Dr. Mcculluogh in the office. Most recent cardiac catheterization performed September 2016 revealed a patent stent of the proximal LAD, mid circumflex and RCA with ostial disease of both first and second diagonal branches. Maximal medical therapy was recommended at that time. We've asked to see her in consultation for symptoms of chest pain. She c/o squeezing type pain mid-sternal/epigastric region intermittently for the last month. Pain is worse when she lays down, improves with sitting up. has been taking more SL nitro lately. If she takes a nitro the pain goes away but then once she lays down again the pain comes back. She denies associated shortness of breath, dizziness, palpitations, nausea, vomiting or diaphoresis. He states he been going on for approximately one month. Blood pressure on admission 216/99. This morning 167/90 heart rate 73. EKG reveals sinus mechanism with first-degree AV block. Chest x-ray negative for an acute cardiopulmonary process. Laboratory data reviewed, hemoglobin 11.9, platelets 245, sodium 138, potassium 4.4, magnesium 1.6, cardiac enzymes negative 3, proBNP 207. Current cardiac medications include aspirin 325 mg daily, Plavix 75 mg daily, Imdur 30 mg daily, lisinopril 40 mg daily, Lopressor 50 mg twice a day, simvastatin 20 mg daily and quinapril 10 mg daily. She also takes Ultram, ropinirole, metformin, Carafate, insulin and Singulair. Review of Systems At the time of my exam: CONSTITUTIONAL: Denies fever. Denies chills. EYES: Denies blurred vision. Denies vision changes. Denies eye pain. EARS, NOSE, MOUTH & THROAT: Denies headache. Denies sore throat. Denies ear pain. CARDIOVASCULAR: Denies chest pain. Denies shortness of breath. Denies orthopnea. Denies PND. Denies palpitations. RESPIRATORY: Denies cough. GASTROINTESTINAL: Denies abdominal pain. Denies diarrhea. Denies constipation. Denies nausea. Denies vomiting. MUSCULOSKELETAL: Denies myalgias. INTEGUMENTARY: Denies pruitis. Denies rash. NEUROLOGIC: Denies numbness. Denies tingling. Denies weakness. PSYCHIATRIC: Denies anxiety. Denies depression. ENDOCRINE: Denies fatigue. Denies weight change. Denies polydipsia. Denies polyurina. GENITOURINARY: Denies burning, hematuria or urgency with micturation. HEMATOLOGIC: Denies history of anemia. Denies bleeding. Past Medical History Past Medical History: Asthma, Coronary Artery Disease (CAD), Chest Pain / Angina , COPD, Diabetes Mellitus, GERD/Reflux, Hyperlipidemia, Hypertension, Myocardial Infarction ([place]), Osteoarthritis (OA), Pneumonia, Sleep Apnea/CPAP/ BIPAP Additional Past Medical History / Comment(s): hx migraines, NEUROPATHY FEET, [place] x 2, no cpap used, restless leg syndrome Last Myocardial Infarction Date:: 02/2015 History of Any Multi-Drug Resistant Organisms: None Reported Past Surgical History: Appendectomy, Breast Surgery, Cholecystectomy, Heart Catheterization With Stent Additional Past Surgical History / Comment(s): left breast biopsy, Heart cath x 3 with stents (2008 & 2014)., 06/2013 thoracotomy R lung Past Anesthesia/Blood Transfusion Reactions: Family History of Problems w/ Anesthesia, Motion Sickness, Postoperative Nausea & Vomiting (PONV) Additional Past Anesthesia/Blood Transfusion Reaction / Comment(s): Pt has received blood without reaction, "sister had problem coming out" Date of Last Stent Placement:: 2014 Past Psychological History: No Psychological Hx Reported Additional Psychological History / Comment(s): claustrophobia Smoking Status: Former smoker Past Alcohol Use History: None Reported Additional Past Alcohol Use History / Comment(s): STARTED SMOKING AGE 18 (1963) AND QUIT 1994. SMOKED 1 PPD. STATES SHE IS AN ALCOHOLIC AND QUIT DRINKING 27 yrs ago Past Drug Use History: None Reported - Past Family History Father Family Medical History: Coronary Artery Disease (CAD), Myocardial Infarction ([place] ) Additional Family Medical History / Comment(s): Father of a [place] at the age of 77yrs. Mother Family Medical History: Cancer Additional Family Medical History / Comment(s): Mother of a [place] at the age of 74yrs. Medications and Allergies Home Medications Medication Instructions Recorded Confirmed Type Aspirin EC [Ecotrin] 325 mg PO HS 02/26/15 11/29/17 History Cholecalciferol [Vitamin D3] 1,000 unit PO DAILY 02/26/15 11/29/17 History Insulin Aspart [NovoLOG Flexpen] 22 units SQ BID-W/MEALS 02/26/15 11/28/17 History Isosorbide Mononitrate ER [Imdur] 30 mg PO DAILY 02/26/15 11/29/17 History Metoclopramide [Reglan] 10 mg PO QID 02/26/15 11/29/17 History Multivitamins, Thera [Multivitamin 1 tab PO DAILY 02/26/15 11/29/17 History (formulary)] Simvastatin [Zocor] 20 mg PO HS 02/26/15 11/29/17 History Vitamin B Complex 1 cap PO DAILY 02/26/15 11/29/17 History Sucralfate [Carafate] 1 gm PO QID #120 tablet 03/04/15 11/29/17 Rx Clopidogrel [Plavix] 75 mg PO QAM 09/05/15 11/29/17 History metFORMIN HCL 1,000 mg PO BID 09/05/15 11/29/17 History Metoprolol Tartrate [Lopressor] 50 mg PO BID #60 tab 10/25/15 11/29/17 Rx Montelukast Sodium [Singulair] 10 mg PO HS #30 tab 10/25/15 11/29/17 Rx Nitroglycerin Sl Tabs [Nitrostat] 0.4 mg SUBLINGUAL Q5M PRN #0 tab 09/24/16 Rx Lisinopril [Zestril] 40 mg PO DAILY 10/27/16 11/29/17 History Magnesium Oxide [Magnesium] 250 mg PO PC-SUPPER 10/27/16 11/29/17 History Melatonin 5 mg PO HS 11/28/17 11/28/17 History Quinapril HCl 10 mg PO DAILY 11/28/17 11/29/17 History rOPINIRole HCL 0.5 mg PO HS 11/28/17 11/29/17 History Insulin Aspart [NovoLOG Flexpen] See Protocol SQ AC-TID 11/29/17 11/29/17 History Webb-3 Fatty Acids/Fish Oil [Fish 1 cap PO DAILY 11/29/17 11/29/17 History Oil 1,000 mg Softgel] traMADol HCL [Ultram] 50 mg PO Q12H PRN 11/29/17 11/29/17 History Allergies Allergy/AdvReac Type Severity Reaction Status Date / Time adhesive tape Allergy bruises Verified 11/29/17 09:11 Physical Exam Vitals: Vital Signs Temp Pulse Pulse Resp BP BP Pulse Ox 11/29/17 08:07 96 11/29/17 04:00 98.5 F 73 16 167/90 96 11/29/17 03:41 16 11/29/17 00:00 73 16 11/28/17 22:00 98.3 F 79 16 168/84 93 L 11/28/17 21:30 98.0 F 77 18 164/75 99 11/28/17 20:43 84 18 181/77 95 11/28/17 20:12 87 22 184/72 95 11/28/17 19:47 99.1 F 91 18 216/99 92 L Intake and Output 11/28/17 11/29/17 11/29/17 22:59 06:59 14:59 Intake Total 136.101 Balance 136.101 Intake: Intake, IV Titration 136.101 Amount Heparin Sod,Pork in 0.45% 136.101 NaCl 25,000 unit In 0.45 % NaCl 1 500ml.bag @ 8 UNITS/KG/HR 19.63 mls/hr IV .Q24H [facility] Rx#: [id number] Other: Voiding Method Toilet # Voids 1 3 Weight 122.742 kg GENERAL: This is a 72-year-old occasion female in no apparent distress at the time of my examination. Morbidly obese. HEENT: Head is atraumatic, normocephalic. Pupils are equal, round. Sclerae anicteric. Conjunctivae are clear. Mucous membranes of the mouth are moist. Neck is supple. There is no jugular venous distention. No carotid bruit is heard. LUNGS: Clear to auscultation no wheezes, rales or rhonchi. No chest wall tenderness is noted on palpation or with deep breathing. HEART: Regular rate and rhythm without murmurs, rubs or gallops. S1 and S2 heard. ABDOMEN: Soft, nontender. Bowel sounds are heard. No organomegaly noted. EXTREMITIES: No evidence of peripheral edema and no calf tenderness noted. VASCULAR: Radial and dorsalis pedis pulses palpated, no evidence of clubbing. NEUROLOGIC: Patient is awake, alert and oriented x3. Results 11/28/17 20:41 11/28/17 19:55 Cardiac Enzymes 11/28/17 11/28/17 Range/Units 19:55 19:55 AST 33 (14-36) U/L CK-MB (CK-2) 0.6 (0.0-2.4) ng/mL Troponin I <0.012 (0.000-0.034) ng/mL Coagulation 11/28/17 11/29/17 Range/Units 19:55 03:21 PT 9.3 (9.0-12.0) sec APTT 18.0 L 25.3 (22.0-30.0) sec CBC 11/28/17 Range/Units 20:41 WBC 9.6 (3.8-10.6) k/uL RBC 5.03 (3.80-5.40) m/uL Hgb 11.9 (11.4-16.0) gm/dL Hct 38.5 (34.0-46.0) % Plt Count 245 (150-450) k/uL Comprehensive Metabolic Panel 11/28/17 Range/Units 19:55 Sodium 138 (137-145) mmol/L Potassium 4.4 (3.5-5.1) mmol/L Chloride 103 (98-107) mmol/L Carbon Dioxide 25 (22-30) mmol/L BUN 26 H (7-17) mg/dL Creatinine 0.80 (0.52-1.04) mg/dL Glucose 162 H (74-99) mg/dL Calcium 9.9 (8.4-10.2) mg/dL AST 33 (14-36) U/L ALT 42 (9-52) U/L Alkaline Phosphatase 115 (38-126) U/L Total Protein 6.5 (6.3-8.2) g/dL Albumin 3.7 (3.5-5.0) g/dL Current Medications Generic Name Dose Route Start Last Admin Trade Name Freq PRN Reason Stop Dose Admin Atorvastatin Calcium 10 mg 11/28/17 23:45 11/29/17 01:33 Lipitor PO Not Given HS [facility] Cholecalciferol 1,000 unit 11/29/17 09:00 Vitamin D3 PO DAILY [facility] Clopidogrel Bisulfate 75 mg 11/29/17 09:00 Plavix PO QAM [facility] Heparin Sodium/Sodium Chloride 500 mls @ 19.63 mls/hr 11/28/17 20:30 03:59 25,000 unit/ Sodium Chloride IV 11.2 units/kg/hr .Q24H [facility] 27.5 mls/hr Titration Protocol 8 UNITS/KG/HR Insulin Aspart 22 unit 11/29/17 07:30 Novolog SQ BID-W/MEALS [facility] Isosorbide Mononitrate 30 mg 11/29/17 09:00 Imdur PO DAILY [facility] Lisinopril 40 mg 11/29/17 09:00 Zestril PO DAILY [facility] Magnesium Oxide 200 mg 11/29/17 18:30 Mag-Ox PO PC-SUPPER [facility] Melatonin 5 mg 11/28/17 23:45 11/29/17 00:52 Melatonin PO 5 mg HS [facility] Administration Metformin HCl 1,000 mg 11/28/17 23:45 11/29/17 00:52 Glucophage PO 1,000 mg AC-BID [facility] Administration Metoclopramide HCl 10 mg 11/28/17 23:45 11/29/17 00:51 Reglan PO 10 mg QID [facility] Administration Metoprolol Tartrate 50 mg 11/28/17 23:45 11/29/17 00:52 Lopressor PO 50 mg BID [facility] Administration Montelukast Sodium 10 mg 11/28/17 23:45 11/29/17 00:52 Singulair PO 10 mg HS [facility] Administration Multivitamins 1 each 11/29/17 09:00 Theragran PO DAILY [facility] Naloxone HCl 0.2 mg 11/28/17 21:16 Narcan IV Q2M PRN Opioid Reversal Ropinirole HCl 0.5 mg 11/28/17 23:45 11/29/17 00:51 Requip PO 0.5 mg HS [facility] Administration Sucralfate 1 gm 11/28/17 23:45 11/29/17 00:52 Carafate PO 1 gm ACHS [facility] Administration Vitamin B Complex/Vit C/Vit E/Zinc 1 each 11/29/17 09:00 Z-Bec PO DAILY [facility] Intake and Output 11/28/17 11/29/17 11/29/17 22:59 06:59 14:59 Intake Total 136.101 Balance 136.101 Intake: Intake, IV Titration 136.101 Amount Heparin Sod,Pork in 0.45% 136.101 NaCl 25,000 unit In 0.45 % NaCl 1 500ml.bag @ 8 UNITS/KG/HR 19.63 mls/hr IV .Q24H [facility] Rx#: [id number] Other: Voiding Method Toilet # Voids 1 3 Weight 122.742 kg 11/28/17 20:41 11/28/17 19:55 Assessment and Plan Assessment: ASSESSMENT Chest pain, atypical. An acute coronary event has been ruled out with no EKG evidence of ischemia and negative cardiac enzymes. Hypertension, accelerated History of coronary artery disease recent cardiac catheterization last year revealed patent stents of the LAD, circumflex and RCA with 70-80% ostial disease of first and second diagonal branches. Maximum medical therapy recommended at that time. Dyslipidemia Diabetes mellitus COPD Sleep apnea Gastroesophageal reflux disease PLAN Discontinue Nitropaste. Obtain 2-D echocardiogram and Doppler study to assess cardiac structure and function. Perform Lexiscan stress test to assess for reversible cardiac ischemia. Check lipid panel. Increase lisinopril to 40 mg twice a day. Add small dose amlodipine 5 mg daily. Continue with aspirin, Imdur, Lopressor and simvastatin as was previously ordered. Further recommendations to follow based upon clinical course. Thank you kindly for this consultation. Nurse Practitioner note has been reviewed, I agree with a documented findings and plan of care. Patient was seen and examined.
--- NOTE | 2017-11-29 13:14 | NM ---
EXAMINATION TYPE: NM stress lexiscan cardiolite DATE OF EXAM: 11/29/2017 COMPARISON: 09/17/2016. HISTORY: 72-year-old female with chest pain TECHNIQUE: After the intravenous administration of 10.7 mCi Tc 99m Sestamibi - Cardiolite resting SP ECT images acquired 45 minutes post injection. The patient received 0.4mg Lexiscan, 26.0 mCi Tc 99m Sestamibi - Stress images obtained 120 minutes p ost injection FINDINGS: Review of stress and rest SPECT images demonstrates reversibility along the mid to apical anterior, a nterolateral wall and inferior apex. Some thinning of the anterior wall on both rest and stress may r elate to attenuation artifacts. Gated analysis shows dyskinesia along the anterolateral and lateral w all with an estimated left ventricular ejection fraction of 43 %. TIS is calculated at 0.99, within normal limits. IMPRESSION: 1. Redemonstrated findings suggesting inducible ischemia along the anterior, anterolateral wall, and inferior apex. 2. Decreased LVEF of 43% versus 48%, previously.
[2017-11-29] MEDS ORDERED: NITROGLYCERIN SL TABS 0.4 MG TAB SUBLINGUAL PRN (14:42)
[2017-11-29] MEDS ORDERED: SODIUM CHLORIDE 0.9% 1,000 ML in EMPTY BAG 1 BAG IV ONE (14:42)
[2017-11-29] MEDS ORDERED: ALPRAZolam 0.25 MG TAB PO PRN (14:42)
[2017-11-29 14:58] LABS: Cholesterol 144 mg/dL (<200); HDL Cholesterol 99 mg/dL (40-60); Triglycerides 435 mg/dL (<150)
[2017-11-29] MEDS: amLODIPine 5 MG TAB PO SCH (15:00)
--- NOTE | 2017-11-29 15:04 | ECHOF ---
Referral Reason:cp MEASUREMENTS -------- HEIGHT: 170.2 cm WEIGHT: 122.5 kg BP: IVSd: 1.5 cm (0.6 - 1.1) LVIDd: 5.1 cm (3.9 - 5.3) LVPWd: 1.4 cm (0.6 - 1.1) IVSs: 1.8 cm LVIDs: 3.5 cm LVPWs: 1.9 cm RVIDd: 3.7 cm (< 3.3) Ao Diam: 3.4 cm (2.0 - 3.7) LA Diam: 4.1 cm (2.7 - 3.8) AV Cusp: 1.7 cm (1.5 - 2.6) MV E Dorian: 1.06 m/s MV DecT: 134 ms MV A Dorian: 1.13 m/s MV E/A Ratio: 0.94 FINDINGS -------- Sinus rhythm. This was a techncally difficult study with suboptimal views, , Lumason utilized for enhancement of im ages. The left ventricular size is normal. There is moderate concentric left ventricular hypertrophy. O verall left ventricular systolic function is low-normal with, an EF between 50 - 55 %. The right ventricle is moderately enlarged. The left atrium is mildly dilated. The right atrial size is normal. There is mild aortic valve sclerosis. There is no evidence of aortic regurgitation. Mild mitral annular calcification present. Mild mitral regurgitation is present. Mild tricuspid regurgitation present. Right ventricular systolic pressure is normal at < 35 mmHg. There is no evidence of pulmonary hypertension. There is no pulmonic regurgitation present. The aortic root size is normal. There is no pericardial effusion. CONCLUSIONS -------- 1. This was a techncally difficult study with suboptimal views, , Lumason utilized for enhancement of images. 2. The left ventricular size is normal. 3. There is moderate concentric left ventricular hypertrophy. 4. Overall left ventricular systolic function is low-normal with, an EF between 50 - 55 %. 5. The right ventricle is moderately enlarged. 6. The left atrium is mildly dilated. 7. The right atrial size is normal. 8. There is mild aortic valve sclerosis. 9. Mild mitral annular calcification present. 10. Mild mitral regurgitation is present. 11. Mild tricuspid regurgitation present. 12. Right ventricular systolic pressure is normal at < 35 mmHg. 13. There is no evidence of pulmonary hypertension. 14. There is no pulmonic regurgitation present. 15. The aortic root size is normal. 16. There is no pericardial effusion. STACKER AND SORTER OPERATOR: Sarah England RDCS
[2017-11-29 15:38] LABS: Creatine Kinase MB 0.9 ng/mL (0.0-2.4); Troponin I 0.019 ng/mL (0.000-0.034)
--- NOTE | 2017-11-29 16:04 | EST ---
EXERCISE STRESS AGE: 72 SEX: Female HT: 67" WT: 270 PROTOCOL: Lexiscan Cardiolite STAGE: DURATION OF EXERCISE: HEART RATE REST: 79 BLOOD PRESSURE REST: 160/100 MAXIMUM HEART RATE ACHIEVED: 96 MAXIMUM BLOOD PRESSURE: 176/89 85% MPHR: 128 100% MPHR: 150 METS: INDICATIONS: Recurrent chest pain. CLINICAL INFORMATION: Baseline heart rate 79 beats per minute. Baseline blood pressure 160/100 Hg. Baseline 12-lead ECG shows normal sinus rhythm with normal cardiac intervals. The patient received Lexiscan infusion per protocol. There was no significant change in her heart rate or blood pressure. She complained of chest pain through the infusion. ST depression of 1 mm was noted inferolaterally. Nuclear portion of the stress test will be reported separately. MMODL / IJN: [id number] /
[2017-11-29 17:24] LABS: Glucose,Whole Blood 165 mg/dL (75-99)
[2017-11-29] MEDS: MAGNESIUM OXIDE 400 MG TAB PO SCH (17:56)
[2017-11-29 20:19] LABS: Glucose,Whole Blood 240 mg/dL (75-99)
[2017-11-29] MEDS: LISINOPRIL 20 MG TAB PO SCH (20:34)
[2017-11-29] MEDS ORDERED: diphenhydrAMINE 25 MG CAP PO STA (23:29)
[2017-11-29] MEDS: ALPRAZolam 0.5 MG TAB PO PRN (23:37)
[2017-11-30] MEDS: ALPRAZolam 0.5 MG TAB PO PRN (05:14)
[2017-11-30] MEDS: ISOSORBIDE MONONITRATE ER 30 MG TAB.ER.24H PO SCH (06:40)
[2017-11-30] MEDS: CLOPIDOGREL 75 MG TAB PO SCH (06:40)
[2017-11-30] MEDS: amLODIPine 5 MG TAB PO SCH (06:40)
[2017-11-30] MEDS: METOPROLOL TARTRATE 50 MG TAB PO SCH ×2 (06:40→20:22)
[2017-11-30] MEDS: LISINOPRIL 20 MG TAB PO SCH ×2 (06:41→20:22)
[2017-11-30 06:49] LABS: Glucose,Whole Blood 221 mg/dL (75-99)
[2017-11-30] MEDS: metFORMIN 500 MG TAB PO SCH ×2 (08:36→17:11)
[2017-11-30] MEDS: INSULIN ASPART 100 UNIT/ML 1 ML 10 ML VIAL SQ SCH ×2 (08:36→17:35)
[2017-11-30] MEDS: SUCRALFATE 1 GM TAB PO SCH ×4 (08:36→22:04)
[2017-11-30] MEDS: ASPIRIN 325 MG TAB PO SCH (08:47)
[2017-11-30] MEDS ORDERED: IV FLUID CONTINUATION 475 ML IV ONE (10:25)
[2017-11-30] MEDS: fentaNYL (PF) 50 MCG/ML 2 ML AMP IV ONE ×2 (10:43→11:22)
[2017-11-30] MEDS ORDERED: fentaNYL (PF) 50 MCG/ML 2 ML AMP ONE (10:43)
[2017-11-30] MEDS ORDERED: LIDOCAINE 2% SYG (PF) 100 MG/5 ML MISCELLANE ONE (10:46)
[2017-11-30] MEDS ORDERED: BIVALIRUDIN BOLUS 250 MG/50 ML IV ONE (11:17)
[2017-11-30] MEDS ORDERED: BIVALIRUDIN 250 MG in SODIUM CHLORIDE 0.9% 50 ML IV ONE (11:18)
[2017-11-30] MEDS ORDERED: CLOPIDOGREL 75 MG TAB ONE (11:30)
[2017-11-30] MEDS ORDERED: CLOPIDOGREL 75 MG TAB PO ONE (11:31)
[2017-11-30] MEDS ORDERED: IOPAMIDOL-370 125ML BTL INJ ONE (11:33)
[2017-11-30] MEDS ORDERED: IOPAMIDOL-370 100ML BTL INJ ONE (11:34)
[2017-11-30] MEDS ORDERED: RX INFO: IV CONTRAST WAS GIVEN 1 EACH MISC MISCELLANE PRN (11:40)
[2017-11-30] MEDS ORDERED: NITROGLYCERIN SL TABS 0.4 MG TAB SUBLINGUAL PRN (11:40)
[2017-11-30] MEDS ORDERED: ZOLPIDEM 5 MG TAB PO PRN (11:40)
[2017-11-30] MEDS ORDERED: ATROPINE SULFATE 0.1 MG/ML 10ML SYRINGE IV PRN (11:40)
[2017-11-30] MEDS ORDERED: MAG HYDROX/AL HYDROX/SIMETH 30 ML CUP PO PRN (11:40)
[2017-11-30] MEDS ORDERED: SODIUM CHLORIDE 0.9% 1,000 ML IV SCH (11:45)
[2017-11-30] MEDS: MULTIVITAMINS, THERA 1 EACH TAB PO SCH (12:42)
[2017-11-30] MEDS: CHOLECALCIFEROL 1,000 UNIT TAB PO SCH (12:43)
[2017-11-30] MEDS: HYDROcodone/APAP 7.5-325MG 1 EACH TAB PO PRN ×2 (12:45→22:04)
[2017-11-30] MEDS: METOCLOPRAMIDE 10 MG TAB PO SCH ×4 (12:52→22:04)
--- NOTE | 2017-11-30 12:53 | PTCA ---
PERCUTANEOUSTRANS CORORONARY ANGIOGRAPHY DATE OF SERVICE: 11/30/2017 PERFORMING PHYSICIAN: Freddie Caro MD, produce associate. PROCEDURE PERFORMED: Successful stenting of the mid left circumflex using 2.75 x 15 mm Xience GLEN with good angiographic results. INDICATION: This is a pleasant 72-year-old female patient who is known to have coronary artery disease and prior stenting of the LAD and left circumflex was experiencing chest discomfort. The patient does follow with Dr. Mccullough. She underwent a heart catheterization and that revealed severe disease involving the mid left circumflex with patent stent in the OM branch of the left circumflex. APPROACH: Right common femoral artery. COMPLICATION: None. LEVEL OF SEDATION: Moderate, sedation length of 21 minutes. PROCEDURE DESCRIPTION: After diagnostic heart catheterization was performed by Dr. Mccullough and after reviewing the angiogram, we decided to pursue with intervention on the left circumflex. Anticoagulation was initiated using Angiomax. Subsequently I did engage the left main using JL4 guide. I did wire the left circumflex using a whisper wire, angioplasty using 2.5 x 12 mm balloon before I deployed a 2.75 x 15 mm Xience GLEN where the stent was positioned under fluoroscopy guidance and deployed under 10 atmospheres for 20 seconds with the following angiogram showing good angiographic results. The procedure was completed without any complication. POSTPROCEDURE MANAGEMENT: 1. Dual antiplatelet therapy. 2. Risk factor modifications. 3. Follow up with the patient. MMODL / IJN: [id number] /
[2017-11-30 13:02] LABS: Glucose,Whole Blood 204 mg/dL (75-99)
[2017-11-30] MEDS: B COMPLEX-VIT C-VIT E-ZINC 1 EACH TAB PO SCH (16:06)
[2017-11-30 16:55] LABS: Glucose,Whole Blood 211 mg/dL (75-99)
[2017-11-30] MEDS: MAGNESIUM OXIDE 400 MG TAB PO SCH (18:31)
[2017-11-30] MEDS: ATORVASTATIN 10 MG TAB PO SCH (20:22)
[2017-11-30 20:56] LABS: Glucose,Whole Blood 203 mg/dL (75-99)
[2017-11-30] MEDS: MONTELUKAST 10 MG TAB PO SCH (22:04)
[2017-11-30] MEDS: MELATONIN 5 MG TABLET PO SCH (22:35)
--- NOTE | 2017-11-30 23:23 | PN ---
PROGRESS NOTE SUBJECTIVE: A 72-year-old white female, status post angioplasty of right coronary artery. She is having less chest pain, less shortness of breath. VITAL SIGNS: Stable, afebrile. CARDIOVASCULAR: S1, S2. LUNGS: Transmitted upper breath sounds. HEMATOLOGIC: Negative Homans'. ASSESSMENT: Status post percutaneous transluminal coronary angioplasty for unstable angina, right coronary artery. Risk factor modifications explained to her, medications adjusted. Possible discharge home in the next 24-48 hours. MMODL / IJN: [id number] /
[2017-12-01] MEDS: metFORMIN 500 MG TAB PO SCH (05:14)
[2017-12-01 06:02] LABS: Glucose,Whole Blood 215 mg/dL (75-99)
[2017-12-01] MEDS: SUCRALFATE 1 GM TAB PO SCH ×2 (06:59→11:43)
[2017-12-01] MEDS: INSULIN ASPART 100 UNIT/ML 1 ML 10 ML VIAL SQ SCH (06:59)
[2017-12-01 07:00] LABS: Anisocytosis Slight; Basophils # (A) 0.1 k/uL (0-0.2); Basophils % (A) 1 %; Eosinophils # (A) 0.3 k/uL (0-0.7); Eosinophils % (A) 3 %; HCT 38.7 % (34.0-46.0); HGB 12.2 gm/dL (11.4-16.0); Hypochromasia Slight; Lymphocytes # (A) 2.9 k/uL (1.0-4.8); Lymphocytes % (A) 31 %; MCH 24.9 pg (25.0-35.0); MCHC 31.6 g/dL (31.0-37.0); MCV 78.8 fL (80.0-100.0); Mean Platelet Volume 6.6; Microcytosis Slight; Monocytes # (A) 0.5 k/uL (0-1.0); Monocytes % (A) 6 %; Neutrophils # (A) 5.4 k/uL (1.3-7.7); Neutrophils % (A) 57 %; Platelet Count 254 k/uL (150-450); RBC 4.91 m/uL (3.80-5.40); RDW 16.6 % (11.5-15.5); WBC 9.4 k/uL (3.8-10.6)
[2017-12-01 07:35] LABS: Calcium 9.3 mg/dL (8.4-10.2); Potassium 4.5 mmol/L (3.5-5.1)
--- NOTE | 2017-12-01 08:52 | P.CARDCATH ---
Date of Procedure: 12/01/17 Preoperative Diagnosis: Chest pain with positive stress test Postoperative Diagnosis: Significant lesion involving the mid circumflex with patent stents with a distal circumflex, RCA and LAD. Critical lesion involving the ostium of the diagonal Procedure(s) Performed: Stent placement of circumflex Description of Procedure: HISTORY: This is a 72-year-old female with history of ischemic heart disease with multiple stents placement who was admitted to the hospital with chest pain and patient had a Lexiscan stress test yesterday and developed be ST-T changes during the infusion. Nuclear stress test was reported as showing ischemia involving the anterior, anterolateral, and also inferoapical regions. She was advised to have a cardiac cath for definitive diagnosis. CONSENT:I have discussed the risks, benefits and alternative therapies for the above-mentioned procedure and for both sedation/analgesia as well as necessary blood product administration, if indicated, as they pertain to this patient. The patient has indicated understanding and acceptance of the risks and procedures discussed. PROCEDURE: Patient was brought to the lab in a fasting state. Patient was given some IV sedation. The right groin is infiltrated with lidocaine and right femoral artery was entered using Seldinger technique. A 6-Nepali catheter was left in place and selective coronary arteriography was performed. Patient tolerated the procedure well. . No immediate complications were noted and patient went on to have stent placement of circumflex by Dr. Gonzalez Conscious Sedation: Versed 0.5 mg Fentanyl 25 g Duration 25 minutes HEMODYNAMICS:. The aortic pressure is about 120/70. Left ankle end-diastolic pressure is about 15-18. There was no gradient across the aortic valve SELECTIVE CORONARY ARTERIOGRAPHY: LEFT MAIN: Short and patent THE LEFT ANTERIOR DESCENDING CORONARY ARTERY:. This is a moderate caliber vessel with mild diffuse disease with a patent stent in the proximal portion. There is a moderate caliber diagonal branch which has about 80-90% ostial stenosis which is unchanged compared to the previous studies. THE LEFT CIRCUMFLEX AND IS CORONARY ARTERY: This is a moderate caliber vessel with a patent stent in the distal portion involving the PLV branch. There is about 70-80% stenosis involving the mid circumflex THE RIGHT CORONARY ARTERY:. This is a moderate caliber vessel with a patent stent in the proximal and midportion. The rest of the vessel is diffuse disease without any significant obstructive disease LEFT VENTRICULOGRAPHY:. Not performed FINAL IMPRESSION:. Critical lesion involving mid circumflex with patent stents in the distal circumflex, proximal RCA and also proximal LAD PLAN: Stent placement of the midcircumflex to be done by Dr. Gonzalez PROGNOSIS: Fair
[2017-12-01] MEDS: LISINOPRIL 20 MG TAB PO SCH (09:33)
[2017-12-01] MEDS: MULTIVITAMINS, THERA 1 EACH TAB PO SCH (09:33)
[2017-12-01] MEDS: CLOPIDOGREL 75 MG TAB PO SCH (09:33)
[2017-12-01] MEDS: ISOSORBIDE MONONITRATE ER 30 MG TAB.ER.24H PO SCH (09:33)
[2017-12-01] MEDS: METOPROLOL TARTRATE 50 MG TAB PO SCH (09:33)
[2017-12-01] MEDS: amLODIPine 5 MG TAB PO SCH (09:33)
[2017-12-01] MEDS: ASPIRIN 325 MG TAB PO SCH (09:33)
[2017-12-01] MEDS: METOCLOPRAMIDE 10 MG TAB PO SCH ×2 (09:34→15:39)
[2017-12-01] MEDS: CHOLECALCIFEROL 1,000 UNIT TAB PO SCH (09:34)
[2017-12-01 11:46] LABS: Glucose,Whole Blood 242 mg/dL (75-99)
[2017-12-01 12:23] VITALS: RESP 18
--- NOTE | 2017-12-01 14:44 | P.PN ---
Subjective Progress Note Date: 12/01/17 This is a pleasant 72-year-old female with a past medical history significant for CAD, asthma, COPD, diabetes mellitus, dyslipidemia, hypertension , sleep apnea and gastroesophageal reflux disease. She follows with Dr. Mccullough in the office. She presented to the emergency department with symptoms of chest discomfort. He complained of a squeezing type pain midsternal /epigastric region intermittently for the last month. Pain is worse placed down and improves with sitting. She's been taking more sublingual nitro lately. She underwent a Lexiscan Cardiolite stress test that showed findings suggesting inducible ischemia along the anterior, anterolateral wall and inferior apex with a decreased LV ejection fraction of 43%. She subsequently underwent cardiac catheterization by Dr. Mccullough which revealed significant lesion involving the mid circumflex with patent stents within the distal circumflex, RCA and LAD as well as a critical lesion involving the ostium of the diagonal. She subsequently underwent successful stent placement to the mid circumflex by Dr. Caro. On examination, patient is resting comfortably in bed. Denies further complaints of chest discomfort. He has no shortness of breath , dizziness, lightheadedness or edema. Objective - Vital Signs Vital signs: Vital Signs Temp 98.4 F 12/01/17 09:38 Pulse 75 12/01/17 11:28 Resp 20 12/01/17 11:28 BP 139/78 12/01/17 09:38 Pulse Ox 91 L 12/01/17 09:38 Intake & Output 11/30/17 12/01/17 12/01/17 18:59 06:59 18:59 Intake Total 581.33 480 Balance 581.33 480 Intake: IV 101.33 Oral 480 480 Other: Voiding Method Toilet Toilet Toilet # Voids 3 # Bowel Movements 2 - Exam PHYSICAL EXAMINATION: HEENT: Head is atraumatic, normocephalic. Pupils equal, round. Neck is supple. There is no elevated jugular venous pressure. HEART EXAMINATION: Heart sounds regular, S1 and S2 normal. No murmur or gallop heard. CHEST EXAMINATION: Lungs are clear to auscultation and precussion. No chest wall tenderness is noted on palpation or with deep breathing. Right femoral puncture site soft without ecchymosis or hematoma ABDOMEN: Soft, nontender. Bowel sounds are heard. No organomegaly noted. EXTREMITIES: 2+ peripheral pulses with no evidence of peripheral edema and no calf tenderness noted. NEUROLOGIC patient is awake, alert and oriented x3. . - Labs CBC & Chem 7: 12/01/17 06:28 18 06:28 Labs: Abnormal Lab Results - Last 24 Hours (Table) 11/30/17 11/30/17 11/30/17 Range/Units 12:26 16:45 20:54 MCV (80.0-100.0) fL MCH (25.0-35.0) pg RDW (11.5-15.5) % BUN (7-17) mg/dL Glucose (74-99) mg/dL POC Glucose (mg/dL) 204 H 211 H 203 H (75-99) mg/dL 12/01/17 12/01/17 12/01/17 Range/Units 06:00 06:28 06:28 MCV 78.8 L (80.0-100.0) fL MCH 24.9 L (25.0-35.0) pg RDW 16.6 H (11.5-15.5) % BUN 18 H (7-17) mg/dL Glucose 197 H (74-99) mg/dL POC Glucose (mg/dL) 215 H (75-99) mg/dL 12/01/17 Range/Units 11:34 MCV (80.0-100.0) fL MCH (25.0-35.0) pg RDW (11.5-15.5) % BUN (7-17) mg/dL Glucose (74-99) mg/dL POC Glucose (mg/dL) 242 H (75-99) mg/dL Assessment and Plan Assessment: #1 CAD with symptoms of atypical chest pain, status post stent placement to the mid circumflex and critical lesion involving the ostium of the diagonal patent stents of the distal circumflex, RCA and LAD. #2 hypertension #3 dyslipidemia #4 diabetes mellitus #5 COPD #6 sleep apnea #7 gastroesophageal reflux disease Plan: From cardiology perspective, continue Norvasc 5 mg by mouth daily, aspirin, atorvastatin, Plavix, Imdur, lisinopril and metoprolol. Patient may be discharged home today and follow-up with Dr. Peralta in one week. HOOP BENDER TANK note has been reviewed, I agree with a documented findings and plan of care. Patient was seen and examined.
[2017-12-01 15:35] VITALS: BP 127/57; PULSE 70; TEMP 97.7
== END 2017-12-01 16:25 | disposition home or self-care (01) | DRG 247 ==
LOC: EC 19:44 → 3SUR 21:22 → 3OBS 11-29 07:39 → OBSVTOIN 11-29 15:38 → 6SEL 11-30 11:35
PROVIDERS: ADMIT Family Medicine; ATTEND Family Medicine
PROC: 4A023N7 Measurement of Cardiac Sampling and Pressure, Left Heart, Percutaneous Approach (ICD-10-PCS; principal; 2017-11-29)
PROC: 027034Z Dilation of Coronary Artery, One Artery with Drug-eluting Intraluminal Device, Percutaneous Approach (ICD-10-PCS; 2017-11-29)
PROC: B2111ZZ Fluoroscopy of Multiple Coronary Arteries using Low Osmolar Contrast (ICD-10-PCS; 2017-11-29)
DX: I25.110 Atherosclerotic heart disease of native coronary artery with unstable angina pectoris (principal); Z68.41 Body mass index [BMI] 40.0-44.9, adult; I10 Essential (primary) hypertension; Z95.5 Presence of coronary angioplasty implant and graft; Z87.891 Personal history of nicotine dependence; E78.5 Hyperlipidemia, unspecified; F40.240 Claustrophobia; G25.81 Restless legs syndrome; G47.30 Sleep apnea, unspecified; E11.42 Type 2 diabetes mellitus with diabetic polyneuropathy; Z79.4 Long term (current) use of insulin; I25.2 Old myocardial infarction; I44.0 Atrioventricular block, first degree; J44.9 Chronic obstructive pulmonary disease, unspecified; K21.9 Gastro-esophageal reflux disease without esophagitis; M19.90 Unspecified osteoarthritis, unspecified site; Z79.02 Long term (current) use of antithrombotics/antiplatelets; Z79.82 Long term (current) use of aspirin; Z79.899 Other long term (current) drug therapy; Z80.9 Family history of malignant neoplasm, unspecified; Z82.49 Family history of ischemic heart disease and other diseases of the circulatory system; E66.01 Morbid (severe) obesity due to excess calories; F10.21 Alcohol dependence, in remission; Z87.01 Personal history of pneumonia (recurrent); I25.9 Chronic ischemic heart disease, unspecified
CPT/HCPCS: 36415; 71046; 78452; 80048; 80053; 80061; 82550; 82553; 83036; 83735; 83880; 84484; 85025; 85610; 85730; 93005; 93017; 93306; 93454; 94760; 96365; 96376; 99285

== ENCOUNTER → 2018-01-05 | Outpatient (CLI) | payer MEDICARE, OTHER ==
--- NOTE | 2018-01-05 09:09 | MM ---
Reason for exam: additional evaluation requested from prior study. Last mammogram was performed 1 year and 7 months ago. History: Patient is postmenopausal. Benign MG pre op needle loc LT of the left breast, September 06, 2015. Physical Findings: Nurse did not find any significant physical abnormalities on exam. MG 3D Diag Mammo W/Cad DAMIEN Bilateral CC and MLO view(s) were taken. Prior study comparison: June 01, 2016, bilateral MG 3d diag mammo w/cad DAMIEN. May 20, 2015, left breast MG 3d diag mammo w/cad LT. There are scattered fibroglandular densities. No significant new findings when compared with previous films. These results were verbally communicated with the patient and result sheet given to the patient on 01/05/18. ASSESSMENT: Benign, BI-RAD 2 RECOMMENDATION: Routine screening mammogram of both breasts in 1 year.
== END | disposition home or self-care (01) ==
LOC: RADMAMWWP 07:36
PROVIDERS: ATTEND Family Medicine
DX: R92.8 Other abnormal and inconclusive findings on diagnostic imaging of breast (principal)
CPT/HCPCS: 77066; G0279; 77062

== ENCOUNTER → 2018-01-06 | Outpatient (CLI) | payer MEDICARE, OTHER ==
--- NOTE | 2018-01-06 12:13 | CT ---
EXAMINATION TYPE: CT chest w con DATE OF EXAM: 01/06/2018 COMPARISON: Prior chest CT 07/18/2013 HISTORY: Hypoxia CT DLP: 886.1 mGycm Automated exposure control for dose reduction was used. CONTRAST: CT scan of the chest is performed with IV Contrast, patient injected with 100 mL of Isovue 300. FINDINGS: LUNGS: The lungs are grossly clear, there is no concerning parenchymal mass or nodule identified. Em physematous change present in the upper lobes. There is no pleural effusion or pneumothorax seen. Th e tracheobronchial tree is patent. MEDIASTINUM: There are no greater than 1 cm hilar or mediastinal lymph nodes. No pericardial effusi on is seen. Coronary artery calcifications are present. AORTA: No additional significant abnormality is seen. OTHER: Clinical clips left breast. Posterior rib deformities from radiation oncology on the right kn ee. Low-attenuation within the liver could be due to hepatic steatosis, patient is post cholecystecto my. IMPRESSION: Emphysema. Additional findings above.
== END | disposition home or self-care (01) ==
LOC: RADCTMAIN 07:34
PROVIDERS: ATTEND Family Medicine
DX: J43.9 Emphysema, unspecified (principal)
CPT/HCPCS: 82565; 84520; 71260; 36415; Q9967

== ENCOUNTER 2018-02-15 06:56 | Day surgery (SDC) | payer MEDICARE, OTHER ==
[2018-02-09 16:13] VITALS: BMI 42.5
[2018-02-15 07:16] VITALS: TEMP 98.8
[2018-02-15 07:23] LABS: Glucose,Whole Blood 146 mg/dL (75-99)
[2018-02-15] MEDS ORDERED: LACTATED RINGERS 1,000 ML IV ONE ×2 (07:26)
[2018-02-15] MEDS ORDERED: MIDAZOLAM 2 MG/2 ML VIAL ONE (07:49)
[2018-02-15] MEDS ORDERED: PROPOFOL 10 MG/ML 20 ML VIAL IV ONE (07:49)
--- NOTE | 2018-02-15 07:55 | P.GSHP ---
History of Present Illness H&P Date: 02/15/18 Chief Complaint: GERD This is a 72-year-old female who presents today for EGD. Patient's had issues with GERD. Past Medical History Past Medical History: Asthma, Coronary Artery Disease (CAD), Chest Pain / Angina , COPD, Diabetes Mellitus, GERD/Reflux, Hyperlipidemia, Hypertension, Myocardial Infarction ([place]), Osteoarthritis (OA), Pneumonia, Sleep Apnea/CPAP/ BIPAP Additional Past Medical History / Comment(s): hx migraines, NEUROPATHY FEET, [place] x 2, has cpap, restless leg syndrome Last Myocardial Infarction Date:: 02/2015 History of Any Multi-Drug Resistant Organisms: None Reported Past Surgical History: Appendectomy, Breast Surgery, Cholecystectomy, Heart Catheterization With Stent Additional Past Surgical History / Comment(s): left breast biopsy, Heart cath with stents x5 ., thoracotomy R lung Past Anesthesia/Blood Transfusion Reactions: Family History of Problems w/ Anesthesia, Motion Sickness, Postoperative Nausea & Vomiting (PONV) Additional Past Anesthesia/Blood Transfusion Reaction / Comment(s): Pt has received blood without reaction Date of Last Stent Placement:: 11/30/2017 Smoking Status: Former smoker - Past Family History Brother(s) Family Medical History: Cancer Father Family Medical History: Coronary Artery Disease (CAD), Myocardial Infarction ([place] ) Additional Family Medical History / Comment(s): Father of a [place] at the age of 77yrs. Mother Family Medical History: Cancer Additional Family Medical History / Comment(s): Mother of a [place] at the age of 74yrs. Medications and Allergies Home Medications Medication Instructions Recorded Confirmed Type Cholecalciferol [Vitamin D3] 1,000 unit PO DAILY 02/26/15 02/09/18 History Isosorbide Mononitrate ER [Imdur] 30 mg PO DAILY 02/26/15 02/09/18 History Multivitamins, Thera [Multivitamin 1 tab PO DAILY 02/26/15 02/09/18 History (formulary)] Simvastatin [Zocor] 20 mg PO HS 02/26/15 02/09/18 History Sucralfate [Carafate] 1 gm PO QID #120 tablet 03/04/15 02/09/18 Rx Clopidogrel [Plavix] 75 mg PO QAM 09/05/15 02/09/18 History metFORMIN HCL 1,000 mg PO BID 09/05/15 02/09/18 History Montelukast Sodium [Singulair] 10 mg PO HS #30 tab 10/25/15 02/09/18 Rx Nitroglycerin Sl Tabs [Nitrostat] 0.4 mg SUBLINGUAL Q5M PRN #0 tab 09/24/16 Rx rOPINIRole HCL 0.5 mg PO BID 11/28/17 02/09/18 History Aspirin 325 mg PO DAILY tab 12/01/17 02/09/18 Rx Lisinopril [Zestril] 40 mg PO BID tab 12/01/17 02/09/18 Rx amLODIPine [Norvasc] 5 mg PO DAILY tab 12/01/17 02/09/18 Rx Dulaglutide [Trulicity] 0.75 mg SQ SA 02/09/18 02/09/18 History HYDROcodone/APAP 7.5-325MG [[place] 1 tab PO BID 02/09/18 02/09/18 History 7.5-325] Insulin Aspart Protam & Aspart 30 unit SQ AC-BID 02/09/18 02/09/18 History [NovoLOG MIX 70-30 Flexpen] Melatonin 5 mg PO HS 02/09/18 02/09/18 History Metoclopramide [Reglan] 10 mg PO ACHS 02/09/18 02/09/18 History Metoprolol Tartrate [Lopressor] 50 mg PO BID 02/09/18 02/09/18 History [place]-3 Acid Ethyl Esters [Lovaza] 2 tab PO BID 02/09/18 02/09/18 History Ranitidine HCl 300 mg PO DAILY 02/09/18 02/09/18 History Allergies Allergy/AdvReac Type Severity Reaction Status Date / Time adhesive tape Allergy bruises Verified 02/09/18 15:38 Iodine and Iodide Containing Allergy Anaphylaxis Verified 02/09/18 15:39 Produc sun dried tomatoes Allergy Swelling Uncoded 02/09/18 16:23 Surgical - Exam Vital Signs Temp Pulse Resp BP Pulse Ox 98.8 F 77 20 179/76 93 L 02/15/18 07:14 02/15/18 07:14 02/15/18 07:14 02/15/18 07:14 02/15/18 07:14 Patient's morbid obesity BMI 43 - General well developed, no distress - Eyes PERRL - ENT normal pinna - Neck no masses - Abdomen Abdomen: soft, non tender Results - Labs Abnormal Lab Results - Last 24 Hours (Table) 02/15/18 Range/Units 07:20 POC Glucose (mg/dL) 146 H (75-99) mg/dL Assessment and Plan Assessment: GERD. We'll perform EGD.
--- NOTE | 2018-02-15 08:06 | P.OP ---
Date of Procedure: 02/15/18 Preoperative Diagnosis: GERD Postoperative Diagnosis: Antral gastritis Hiatal hernia Mild esophagitis Procedure(s) Performed: EGD Anesthesia: MAC Surgeon: Gino Santacruz Pathology: other (Antrum, esophagus) Condition: stable Disposition: PACU Description of Procedure: The patient's placed on the endoscopy table in the lateral position. She received IV sedation. The gastroscope some placed oropharynx passed in the esophagus and stomach. Scope was placed through the pylorus. The first and second portion of the duodenum appeared normal. Scope was then brought back the antrum this. Mildly inflamed. A biopsies performed. Scope was retroflexed and remainder stomach appeared normal. The GE junction was at 39 cm. There was a sliding hiatal hernia. The distal esophagus appeared mildly inflamed a biopsies performed. The proximal esophagus appeared normal. Scope was withdrawn from patient.
[2018-02-15 08:34] VITALS: BP 161/78; PULSE 71; RESP 18
== END 2018-02-15 08:51 | disposition home or self-care (01) ==
LOC: ORWHC2ENDO 06:56
PROVIDERS: ATTEND Surgery
DX: K29.50 Unspecified chronic gastritis without bleeding (principal); K21.0 Gastro-esophageal reflux disease with esophagitis; K44.9 Diaphragmatic hernia without obstruction or gangrene; I13.0 Hypertensive heart and chronic kidney disease with heart failure and stage 1 through stage 4 chronic kidney disease, or unspecified chronic kidney disease; N18.3 Chronic kidney disease, stage 3 (moderate); I50.30 Unspecified diastolic (congestive) heart failure; E11.22 Type 2 diabetes mellitus with diabetic chronic kidney disease; E11.42 Type 2 diabetes mellitus with diabetic polyneuropathy; J44.9 Chronic obstructive pulmonary disease, unspecified; E66.01 Morbid (severe) obesity due to excess calories; Z68.41 Body mass index [BMI] 40.0-44.9, adult; M51.16 Intervertebral disc disorders with radiculopathy, lumbar region; K58.9 Irritable bowel syndrome, unspecified; E78.5 Hyperlipidemia, unspecified; I25.110 Atherosclerotic heart disease of native coronary artery with unstable angina pectoris; G47.33 Obstructive sleep apnea (adult) (pediatric); M75.00 Adhesive capsulitis of unspecified shoulder; N60.29 Fibroadenosis of unspecified breast; L84 Corns and callosities; F32.9 Major depressive disorder, single episode, unspecified; L30.9 Dermatitis, unspecified; B35.1 Tinea unguium; M17.10 Unilateral primary osteoarthritis, unspecified knee; G47.09 Other insomnia; N95.2 Postmenopausal atrophic vaginitis; G25.81 Restless legs syndrome; G43.909 Migraine, unspecified, not intractable, without status migrainosus; I25.2 Old myocardial infarction; Z99.89 Dependence on other enabling machines and devices; Z95.5 Presence of coronary angioplasty implant and graft; Z79.82 Long term (current) use of aspirin; Z79.4 Long term (current) use of insulin; Z79.891 Long term (current) use of opiate analgesic; Z79.52 Long term (current) use of systemic steroids; Z79.02 Long term (current) use of antithrombotics/antiplatelets; Z79.899 Other long term (current) drug therapy; Z91.018 Allergy to other foods; Z91.048 Other nonmedicinal substance allergy status; Z91.09 Other allergy status, other than to drugs and biological substances; Z90.49 Acquired absence of other specified parts of digestive tract; Z87.891 Personal history of nicotine dependence
CPT/HCPCS: 88305; 43239; J2250; J2704

== ENCOUNTER 2018-05-24 06:46 | Day surgery (SDC) | payer MEDICARE, OTHER ==
[2018-05-18 14:58] VITALS: BMI 42.4
[~2018-05-24 06:46] MED LIST changes: -LIDOCAINE 1% 20 ML VIAL (10MG/ML) FOR IV START INTRADERMA PRN
[2018-05-24 07:21] VITALS: TEMP 98.8
[2018-05-24] MEDS ORDERED: LACTATED RINGERS 1,000 ML IV ONE ×2 (07:25)
[2018-05-24 07:30] LABS: Glucose,Whole Blood 131 mg/dL (75-99)
[2018-05-24] MEDS ORDERED: LIDOCAINE 1% INJ 10MG/ML (20 ML MDV) ONE (07:42)
[2018-05-24] MEDS ORDERED: PROPOFOL 10 MG/ML 20 ML VIAL IV ONE (07:42)
--- NOTE | 2018-05-24 07:48 | P.GSHP ---
History of Present Illness H&P Date: 05/24/18 Chief Complaint: History of diarrhea This is a 72-year-old female referred from Dr. Medardo Cee. Patient's liquid diarrhea. She presents today for colonoscopy. Past Medical History Past Medical History: Asthma, Coronary Artery Disease (CAD), Chest Pain / Angina , COPD, Diabetes Mellitus, GERD/Reflux, Hyperlipidemia, Hypertension, Myocardial Infarction ([place]), Osteoarthritis (OA), Pneumonia, Sleep Apnea/CPAP/ BIPAP Additional Past Medical History / Comment(s): hx NEUROPATHY FEET, [place] x 2, has cpap, restless leg syndrome Last Myocardial Infarction Date:: 02/2015 History of Any Multi-Drug Resistant Organisms: None Reported Past Surgical History: Appendectomy, Breast Surgery, Cholecystectomy, Heart Catheterization With Stent Additional Past Surgical History / Comment(s): left breast biopsy, Heart cath with stents x5 ., thoracotomy R lung Past Anesthesia/Blood Transfusion Reactions: Motion Sickness, Postoperative Nausea & Vomiting (PONV) Additional Past Anesthesia/Blood Transfusion Reaction / Comment(s): Pt has received blood without reaction Date of Last Stent Placement:: 11/30/2017 Smoking Status: Former smoker - Past Family History Brother(s) Family Medical History: Cancer Father Family Medical History: Coronary Artery Disease (CAD), Myocardial Infarction ([place] ) Additional Family Medical History / Comment(s): Father of a [place] at the age of 77yrs. Mother Family Medical History: Cancer Additional Family Medical History / Comment(s): Mother of a [place] at the age of 74yrs. Medications and Allergies Home Medications Medication Instructions Recorded Confirmed Type Cholecalciferol [Vitamin D3] 1,000 unit PO DAILY 02/26/15 05/18/18 History Isosorbide Mononitrate ER [Imdur] 30 mg PO QAM 02/26/15 05/18/18 History Simvastatin [Zocor] 20 mg PO HS 02/26/15 05/18/18 History Sucralfate [Carafate] 1 gm PO QID #120 tablet 03/04/15 05/18/18 Rx Clopidogrel [Plavix] 75 mg PO QAM 09/05/15 05/18/18 History metFORMIN HCL 1,000 mg PO BID 09/05/15 05/18/18 History Montelukast Sodium [Singulair] 10 mg PO HS #30 tab 10/25/15 05/18/18 Rx Nitroglycerin Sl Tabs [Nitrostat] 0.4 mg SUBLINGUAL Q5M PRN #0 tab 09/24/1607/05 Rx rOPINIRole HCL 0.5 mg PO BID 11/28/17 05/18/18 History Aspirin 325 mg PO DAILY tab 12/01/17 05/18/18 Rx Lisinopril [Zestril] 40 mg PO BID tab 12/01/17 05/18/18 Rx Dulaglutide [Trulicity] 0.75 mg SQ SA 02/09/18 05/18/18 History HYDROcodone/APAP 7.5-325MG [[place] 1 tab PO BID 02/09/18 05/18/18 History 7.5-325] Insulin Aspart Protam & Aspart 30 unit SQ AC-BID 02/09/18 05/18/18 History [NovoLOG MIX 70-30 Flexpen] Melatonin 5 mg PO HS 02/09/18 05/18/18 History Metoclopramide [Reglan] 10 mg PO ACHS 02/09/18 05/18/18 History Metoprolol Tartrate [Lopressor] 50 mg PO BID 02/09/18 05/18/18 History [place]-3 Acid Ethyl Esters [Lovaza] 2 tab PO BID 02/09/18 05/18/18 History Ranitidine HCl 300 mg PO DAILY 02/09/18 05/18/18 History Dicyclomine [Bentyl] 10 mg PO DAILY 05/18/18 05/18/18 History Fluticasone/Umeclidin/Vilanter 1 inhalation INHALATION QAM 05/18/18 05/18/18 History [Trelegy Ellipta 100-62.5-25] amLODIPine [Norvasc] 5 mg PO QAM 05/18/18 05/18/18 History Allergies Allergy/AdvReac Type Severity Reaction Status Date / Time adhesive tape Allergy bruises,"paper Verified 05/18/18 14:47 tape is ok" Iodinated Contrast- Oral and Allergy Anaphylaxis Verified 05/18/18 14:47 IV Dye Iodine and Iodide Containing Allergy Anaphylaxis Verified 05/18/18 14:47 Produc stress test injection Allergy Anaphylaxis Uncoded 05/18/18 14:47 sun dried tomatoes Allergy lip Uncoded 05/18/18 14:47 swelling Surgical - Exam Vital Signs Pulse Resp BP Pulse Ox 63 18 130/60 95 05/24/18 07:19 05/24/18 07:19 05/24/18 07:19 05/24/18 07:19 - General well developed, no distress - Eyes PERRL - ENT normal pinna - Neck no masses - Respiratory normal expansion - Cardiovascular Rhythm: regular - Abdomen Abdomen: soft, non tender Results - Labs Abnormal Lab Results - Last 24 Hours (Table) 05/24/18 Range/Units 07:26 POC Glucose (mg/dL) 131 H (75-99) mg/dL Assessment and Plan Assessment: Diarrhea. We'll perform colonoscopy.
--- NOTE | 2018-05-24 08:06 | P.OP ---
Date of Procedure: 05/24/18 Preoperative Diagnosis: Diarrhea Postoperative Diagnosis: External hemorrhoids Rectal polyp Severe diverticulosis of sigmoid and left colon Procedure(s) Performed: Colonoscopy Anesthesia: MAC Surgeon: Gino Santacruz Pathology: other (Rectal polyp) Condition: stable Disposition: PACU Description of Procedure: The patient's placed on the endoscopy table in the lateral position. She received IV sedation. Digital rectal exam was performed which revealed external hemorrhoids. The flexible colonoscope was then placed patient anus and passed throughout the entire colon. The ileocecal valve sutures. The cecum , ascending and transverse colon appeared normal. In the descending and sigmoid colon there is moderate to severe diverticulosis. There is no evidence of diverticulitis. The scope was then brought back the rectum and a small sessile polyp was visualized. This was removed with the cold forcep. Scope was withdrawn for patient and external hemorrhoids were noted.
[2018-05-24 08:09] LABS: Glucose,Whole Blood 134 mg/dL (75-99)
[2018-05-24 08:20] VITALS: BP 110/67; PULSE 62; RESP 20
== END 2018-05-24 08:30 | disposition home or self-care (01) ==
LOC: ORWHC2ENDO 06:46
PROVIDERS: ATTEND Surgery
DX: K57.30 Diverticulosis of large intestine without perforation or abscess without bleeding (principal); K62.1 Rectal polyp; K64.4 Residual hemorrhoidal skin tags; I25.119 Atherosclerotic heart disease of native coronary artery with unspecified angina pectoris; J44.9 Chronic obstructive pulmonary disease, unspecified; K21.9 Gastro-esophageal reflux disease without esophagitis; E78.5 Hyperlipidemia, unspecified; I10 Essential (primary) hypertension; M19.90 Unspecified osteoarthritis, unspecified site; G47.30 Sleep apnea, unspecified; E11.40 Type 2 diabetes mellitus with diabetic neuropathy, unspecified; G25.81 Restless legs syndrome; I25.2 Old myocardial infarction; Z90.49 Acquired absence of other specified parts of digestive tract; Z95.5 Presence of coronary angioplasty implant and graft; Z99.89 Dependence on other enabling machines and devices; Z79.02 Long term (current) use of antithrombotics/antiplatelets; Z79.82 Long term (current) use of aspirin; Z79.4 Long term (current) use of insulin; Z79.51 Long term (current) use of inhaled steroids; Z79.899 Other long term (current) drug therapy; Z91.041 Radiographic dye allergy status; Z91.018 Allergy to other foods; Z91.048 Other nonmedicinal substance allergy status; Z91.09 Other allergy status, other than to drugs and biological substances; Z87.891 Personal history of nicotine dependence
CPT/HCPCS: 88305; 45380; J2001; J2704

== ENCOUNTER → 2018-09-29 | Outpatient (CLI) | payer MEDICARE, OTHER ==
[2018-09-29 13:22] LABS: Anisocytosis Slight; HGB 10.7 gm/dL (11.4-16.0); Hypochromasia Moderate; MCH 22.9 pg (25.0-35.0); MCHC 29.8 g/dL (31.0-37.0); MCV 76.7 fL (80.0-100.0); Mean Platelet Volume 6.7; Microcytosis Slight; Platelet Count 295 k/uL (150-450); RDW 16.9 % (11.5-15.5); WBC 10.2 k/uL (3.8-10.6)
[2018-09-29 13:35] LABS: Potassium 4.9 mmol/L (3.5-5.1)
== END | disposition home or self-care (01) ==
LOC: LABPAT 11:52
PROVIDERS: ATTEND Internal Medicine Cardiovascular Disease
DX: Z01.812 Encounter for preprocedural laboratory examination (principal)
CPT/HCPCS: 80051; 82565; 84520; 85027

== ENCOUNTER 2018-09-30 06:36 | Day surgery (SDC) | payer MEDICARE, OTHER ==
[2018-09-29 13:46] VITALS: BMI 43.8
[~2018-09-30 06:36] MED LIST changes: +ALPRAZolam 0.25 MG TAB PO PRN; +ALPRAZolam 0.5 MG TAB PO PRN; +ASPIRIN 325 MG TAB PO STA; +ATORVASTATIN 80 MG TAB PO STA; -LACTATED RINGERS 1,000 ML IV SCH; +NITROGLYCERIN SL TABS 0.4 MG TAB SUBLINGUAL PRN; +SODIUM CHLORIDE 0.9% 1,000 ML in EMPTY BAG 1 BAG IV ONE
[2018-09-30] MEDS ORDERED: diphenhydrAMINE 50 MG CAP PO ONE ×2 (06:48→07:24)
[2018-09-30] MEDS ORDERED: predniSONE 50 MG TAB PO ONE (06:48)
[2018-09-30] MEDS ORDERED: FAMOTIDINE 20 MG TAB PO STA (06:50)
[2018-09-30] MEDS ORDERED: ASPIRIN 325 MG TAB PO ONE (07:07)
[2018-09-30] MEDS ORDERED: METOPROLOL TARTRATE 50 MG TAB PO ONE ×2 (07:08→16:44)
[2018-09-30] MEDS ORDERED: CLOPIDOGREL 75 MG TAB PO ONE (07:08)
[2018-09-30] MEDS ORDERED: amLODIPine 5 MG TAB PO ONE ×2 (07:09→14:36)
[2018-09-30] MEDS ORDERED: HEPARIN SODIUM 1,000 UN/ML (10ML VL) ONE (07:18)
[2018-09-30] MEDS ORDERED: VERAPAMIL 2.5 MG/ML 2 ML AMP ONE (07:18)
[2018-09-30] MEDS ORDERED: fentaNYL (PF) 50 MCG/ML 2 ML AMP ONE (07:18)
[2018-09-30] MEDS ORDERED: LIDOCAINE 1% INJ 10MG/ML (20 ML MDV) ONE (07:18)
[2018-09-30] MEDS ORDERED: SODIUM CHLORIDE 0.9% 1,000 ML IV ONE (07:19)
[2018-09-30] MEDS ORDERED: INSULIN ASPART (NovoLOG) 100 UNIT/ML VIAL SQ ONE ×2 (07:19→12:20)
[2018-09-30 07:20] LABS: Glucose,Whole Blood 255 mg/dL (75-99)
[2018-09-30] MEDS ORDERED: FAMOTIDINE 20 MG TAB PO ONE (07:23)
[2018-09-30] MEDS: amLODIPine 5 MG TAB PO SCH (07:27)
[2018-09-30] MEDS: ISOSORBIDE MONONITRATE ER 30 MG TAB.ER.24H PO SCH (07:27)
[2018-09-30] MEDS: METOPROLOL TARTRATE 50 MG TAB PO SCH ×2 (07:28→16:49)
[2018-09-30] MEDS: LISINOPRIL 20 MG TAB PO SCH (07:28)
[2018-09-30] MEDS ORDERED: MIDAZOLAM (PF) 2 MG/2 ML VIAL IV ONE (07:42)
[2018-09-30] MEDS ORDERED: fentaNYL (PF) 50 MCG/ML 2 ML AMP IV ONE (07:42)
[2018-09-30] MEDS ORDERED: LIDOCAINE 1% INJ 10MG/ML (20 ML MDV) SQ ONE (07:45)
[2018-09-30] MEDS: VERAPAMIL SYRINGE (5 MG/10 ML) INTRAARTER ONE ×2 (07:46→08:03)
[2018-09-30] MEDS ORDERED: HEPARIN SODIUM 1,000 UN/ML (10ML VL) IV ONE (07:52)
[2018-09-30] MEDS ORDERED: ENALAPRILAT 1.25 MG/ML 1 ML VIAL ONE (07:54)
[2018-09-30] MEDS ORDERED: ENALAPRILAT 1.25 MG/ML 1 ML VIAL IV ONE (07:56)
[2018-09-30] MEDS ORDERED: METOPROLOL TARTRATE 5 MG/5 ML VIAL IVP ONE ×2 (08:01→08:03)
[2018-09-30] MEDS ORDERED: IOPAMIDOL-370 125ML BTL INJ ONE (08:04)
[2018-09-30] MEDS ORDERED: RX INFO: IV CONTRAST WAS GIVEN 1 EACH MISC MISCELLANE PRN (08:15)
[2018-09-30] MEDS ORDERED: NITROGLYCERIN OINT 1 INCH/GM PACKET TOPICAL ONE ×2 (08:18)
--- NOTE | 2018-09-30 08:29 | P.CARDCATH ---
Date of Procedure: 09/30/18 Preoperative Diagnosis: New-onset angina Postoperative Diagnosis: Diffuse but stable coronary artery disease Procedure(s) Performed: Left heart catheterization without left ventriculography Description of Procedure: HISTORY: This is a 73-year-old female with history of ischemic heart disease with previous stent placement of the right coronary artery LAD and also circumflex. Patient came to the office with complaints of recurrent chest pains size to of angina which is new onset. Patient is advised to have cardiac catheterization for definitive diagnosis CONSENT:I have discussed the risks, benefits and alternative therapies for the above-mentioned procedure and for both sedation/analgesia as well as necessary blood product administration, if indicated, as they pertain to this patient. The patient has indicated understanding and acceptance of the risks and procedures discussed. PROCEDURE: Patient was brought to the lab in a fasting state. Patient was given some IV sedation. The right wrist is infiltrated with lidocaine and right radial artery was entered using Seldinger technique. A 6-[place] catheter was left in place and selective coronary arteriography was performed. Patient tolerated the procedure well. TR band was applied for hemostasis. No immediate complications were noted and patient was transferred to [facility] in a stable condition Conscious Sedation: Versed 1mg Fentanyl 50 g Duration 21minutes HEMODYNAMICS: The aortic pressure was about 190/90. Left ventricular end- diastolic pressure is 20. There was no gradient across the aortic valve SELECTIVE CORONARY ARTERIOGRAPHY: LEFT MAIN: Short and free of any significant focal lesions. The whole coronary system is calcified THE LEFT ANTERIOR DESCENDING CORONARY ARTERY: Good caliber vessel giving rise to 3 diagonal branches. The first diagonal branch ostial 95% stenosis which is chronic. The rest of the LAD is diffuse mild plaque without any Sigmund focal occlusive lesions THE LEFT CIRCUMFLEX AND IS CORONARY ARTERY:. This is a good caliber vessel. The vessel is free of any significant focal lesions. The previous stents are patent. There is diffuse plaque involving the small caliber distal PLV branch. THE RIGHT CORONARY ARTERY: This is a nondominant in distribution. Appears to be free of any significant occlusive disease LEFT VENTRICULOGRAPHY: Not performed FINAL IMPRESSION: Stable diffuse coronary artery disease with patent stents in the LAD, circumflex, and also PDA of the right. Critical lesion involving first diagonal branch. Seemed to be stable compared to the previous studies PLAN: Maximum medical therapy and this factor modification PROGNOSIS: Fair
[2018-09-30 08:36] LABS: Glucose,Whole Blood 270 mg/dL (75-99)
[2018-09-30] MEDS ORDERED: NITROGLYCERIN SL TABS 0.4 MG TAB SUBLINGUAL PRN (08:39)
[2018-09-30] MEDS ORDERED: ASPIRIN 325 MG TAB PO SCH (09:00)
[2018-09-30] MEDS ORDERED: CLOPIDOGREL 75 MG TAB PO SCH (09:00)
[2018-09-30] MEDS ORDERED: VILANTER INHALATION SCH (09:00)
[2018-09-30] MEDS ORDERED: [UNRECOGNIZED DRUG - OTHER] INHALATION SCH (09:00)
[2018-09-30] MEDS ORDERED: NON-FORMULARY DRUG (Vitamin B Complex [Vitamin B Complex] 1 EACH) PO SCH (09:00)
[2018-09-30] MEDS ORDERED: UMECLIDIN INHALATION SCH (09:00)
[2018-09-30] MEDS ORDERED: OMEGA PO SCH (09:00)
[2018-09-30] MEDS ORDERED: FLUTICASONE INHALATION SCH (09:00)
[2018-09-30] MEDS ORDERED: FATTY ACIDS PO SCH (09:00)
[2018-09-30] MEDS ORDERED: INSULN ASP PRT/INSULIN ASPART 100 UNIT/ML 10 ML VIAL SQ ONE (10:30)
[2018-09-30] MEDS ORDERED: LABETALOL SYRINGE 5 MG/ML IVP STA (12:24)
[2018-09-30] MEDS ORDERED: amLODIPine 5 MG TAB PO STA (12:25)
[2018-09-30 12:41] LABS: Glucose,Whole Blood 342 mg/dL (75-99)
[2018-09-30] MEDS ORDERED: LABETALOL 5 MG/ML VIAL MDV IVP ONE (14:36)
[2018-09-30] MEDS ORDERED: cloNIDine HCL 0.1 MG TAB PO STA (15:07)
[2018-09-30] MEDS: SODIUM CHLORIDE 0.9% 1,000 ML IV SCH (16:10)
[2018-09-30 16:22] LABS: Glucose,Whole Blood 306 mg/dL (75-99)
[2018-09-30] MEDS: INSULIN ASPART (NovoLOG) 100 UNIT/ML VIAL SQ SCH ×2 (16:45→21:53)
[2018-09-30] MEDS: SUCRALFATE 1 GM TAB PO SCH ×2 (16:45→21:47)
[2018-09-30] MEDS: REPAGLINIDE 1 MG TAB PO SCH (16:53)
[2018-09-30] MEDS: METOCLOPRAMIDE 10 MG TAB PO SCH ×2 (16:53→21:49)
[2018-09-30] MEDS: DICYCLOMINE 10 MG CAP PO SCH (20:13)
[2018-09-30 20:18] LABS: Glucose,Whole Blood 309 mg/dL (75-99)
[2018-09-30] MEDS: INSULN ASP PRT/INSULIN ASPART 100 UNIT/ML 10 ML VIAL SQ SCH (20:20)
[2018-09-30] MEDS: CHOLECALCIFEROL 1,000 UNIT TAB PO SCH (20:20)
[2018-09-30] MEDS: ALBUTEROL NEBULIZED 2.5 MG/3 ML INHALATION SCH ×2 (20:32→23:13)
[2018-09-30] MEDS: SYMBICORT 80-4.5 MCG INHALER INHALATION SCH (20:32)
[2018-09-30] MEDS: IPRATROPIUM 0.5 MG/2.5 ML NEBU INHALATION SCH (20:41)
[2018-09-30] MEDS ORDERED: ATORVASTATIN 10 MG TAB PO SCH (21:00)
[2018-09-30] MEDS ORDERED: MONTELUKAST 10 MG TAB PO SCH (21:00)
[2018-09-30] MEDS: HYDROcodone/APAP 7.5-325MG 1 EACH TAB PO SCH (21:47)
[2018-10-01 00:19] LABS: Glucose,Whole Blood 188 mg/dL (75-99)
[2018-10-01] MEDS: SODIUM CHLORIDE 0.9% 1,000 ML IV SCH (02:35)
[2018-10-01] MEDS: ALBUTEROL NEBULIZED 2.5 MG/3 ML INHALATION SCH ×3 (03:19→12:01)
[2018-10-01 06:02] LABS: Glucose,Whole Blood 134 mg/dL (75-99)
[2018-10-01] MEDS: INSULIN ASPART (NovoLOG) 100 UNIT/ML VIAL SQ SCH ×2 (06:04→12:13)
[2018-10-01] MEDS: INSULN ASP PRT/INSULIN ASPART 100 UNIT/ML 10 ML VIAL SQ SCH (06:35)
[2018-10-01] MEDS: LISINOPRIL 20 MG TAB PO SCH (08:44)
[2018-10-01] MEDS: CHOLECALCIFEROL 1,000 UNIT TAB PO SCH (08:44)
[2018-10-01] MEDS: DICYCLOMINE 10 MG CAP PO SCH (08:44)
[2018-10-01] MEDS: SUCRALFATE 1 GM TAB PO SCH (08:44)
[2018-10-01] MEDS: ISOSORBIDE MONONITRATE ER 30 MG TAB.ER.24H PO SCH (08:45)
[2018-10-01] MEDS: METOCLOPRAMIDE 10 MG TAB PO SCH (08:45)
[2018-10-01] MEDS: amLODIPine 5 MG TAB PO SCH (08:45)
[2018-10-01] MEDS: METOPROLOL TARTRATE 50 MG TAB PO SCH (08:45)
[2018-10-01] MEDS: HYDROcodone/APAP 7.5-325MG 1 EACH TAB PO SCH (08:45)
[2018-10-01] MEDS: SYMBICORT 80-4.5 MCG INHALER INHALATION SCH (08:47)
[2018-10-01] MEDS: IPRATROPIUM 0.5 MG/2.5 ML NEBU INHALATION SCH ×2 (08:47→12:01)
[2018-10-01] MEDS ORDERED: cloNIDine HCL 0.1 MG TAB PO SCH (09:00)
[2018-10-01] MEDS ORDERED: FAMOTIDINE 20 MG TAB PO SCH (09:00)
[2018-10-01] MEDS ORDERED: CLOPIDOGREL 75 MG TAB PO SCH (09:00)
[2018-10-01] MEDS ORDERED: ASPIRIN 325 MG TAB PO SCH (09:00)
[2018-10-01 09:20] VITALS: RESP 20
--- NOTE | 2018-10-01 11:18 | PN ---
PROGRESS NOTE Mrs. Brand is a 73-year-old female who has underwent cardiac catheterization yesterday by Dr. Mccullough and was found to have no evidence of progression of disease. She was kept overnight because her blood pressure is elevated. She is doing well this morning. Her breathing has been stable. She denies any dizziness or palpitation. She denies any nausea. She continues to be on amlodipine 5 mg daily, aspirin once a day, atorvastatin 10 mg daily, clonidine 0.1 mg daily, Plavix 75 mg daily, insulin, lisinopril 40 mg daily, metoprolol 50 mg twice a day. PHYSICAL EXAMINATION: Blood pressure 138/60 with a heart rate in the 80s. LUNGS: Clear. HEART: Regular rate and rhythm, S1, S2. No S3. No rub. ABDOMEN: Soft, nontender, obese. EXTREMITIES: No edema. Right radial pulse intact. IMPRESSION: 1. Coronary artery disease with no evidence of progression of disease. 2. History of hypertension. 3. Hyperlipidemia. 4. Diabetes mellitus. RECOMMENDATION: Patient should be able to be discharged home today and followed as an outpatient with Dr. Mccullough. MMODL / IJN: [id number] /
[2018-10-01 11:54] LABS: Glucose,Whole Blood 171 mg/dL (75-99)
[2018-10-01 12:00] VITALS: BP 101/49; PULSE 76; TEMP 98.5
[2018-10-01] MEDS: REPAGLINIDE 1 MG TAB PO SCH (12:07)
== END 2018-10-01 15:14 | disposition home or self-care (01) ==
LOC: CATHCVL 06:36 → 3SCARD 18:20 → CATHCVL 10-01 15:14
PROVIDERS: ATTEND Internal Medicine Cardiovascular Disease
DX: I25.119 Atherosclerotic heart disease of native coronary artery with unspecified angina pectoris (principal); E11.9 Type 2 diabetes mellitus without complications; E78.2 Mixed hyperlipidemia; F17.210 Nicotine dependence, cigarettes, uncomplicated; I10 Essential (primary) hypertension; Z95.5 Presence of coronary angioplasty implant and graft; Z91.041 Radiographic dye allergy status; Z79.02 Long term (current) use of antithrombotics/antiplatelets; Z79.4 Long term (current) use of insulin; Z79.899 Other long term (current) drug therapy
CPT/HCPCS: 94640 ×2; 93458; C1894; J2001; J3010; J1644; Q9967; J2250

== ENCOUNTER 2018-11-16 09:49 | Observation (INO) | payer MEDICARE, OTHER ==
[2018-11-16] MEDS ORDERED: SODIUM CHLORIDE 0.9% 1,000 ML IV STA ×2 (10:14)
--- NOTE | 2018-11-16 10:28 | ED ---
Chest Pain HPI - General Chief Complaint: Chest Pain Stated Complaint: Abnormal EKG Time Seen by Provider: 11/16/18 09:55 Source: patient, RN notes reviewed, old records reviewed Mode of arrival: wheelchair Limitations: no limitations - History of Present Illness Initial Comments: is a 73-year-old female with a history of intermittent chest pain, dyspnea on exertion for the past few weeks. She states that she was taking nitro at home to relieve the chest pain. She's had previous cardiac history including 5 stents. Patient states that she went to her primary care doctor's office today with initial complaint of lower back pain with walking. Patient states that she told her primary care Dr. Aviles symptoms of chest pain and EKG was performed. Patient's PCP sent her to emergency department for further evaluation due to abnormal EKG at that time. Patient states she has no chest pain upon arrival. She states that she has no significant back pain as well, but only with walking. She denies any nausea, vomiting, fevers, chills, or coughing. She denies any lower extremity swelling. - Related Data Home Medications Medication Instructions Recorded Confirmed Cholecalciferol [Vitamin D3 (25 1,000 unit PO DAILY 02/26/15 11/16/18 Mcg = 1000 Iu)] Isosorbide Mononitrate ER [Imdur] 30 mg PO QAM 02/26/15 11/16/18 Simvastatin [Zocor] 20 mg PO HS 02/26/15 11/16/18 Clopidogrel [Plavix] 75 mg PO QAM 09/05/15 11/16/18 metFORMIN HCL 1,000 mg PO BID 09/05/15 11/16/18 Dulaglutide [Trulicity] 0.75 mg SQ SA 02/09/18 11/16/18 HYDROcodone/APAP 7.5-325MG [[place] 1 tab PO BID 02/09/18 11/16/18 7.5-325] Insulin Aspart Protam & Aspart 30 unit SQ AC-BID 02/09/18 11/16/18 [NovoLOG MIX 70-30 Flexpen] Melatonin 5 mg PO HS 02/09/18 11/16/18 Metoclopramide [Reglan] 10 mg PO QID 02/09/18 11/16/18 Metoprolol Tartrate [Lopressor] 50 mg PO BID 02/09/18 11/16/18 Ranitidine HCl 300 mg PO DAILY 02/09/18 11/16/18 Dicyclomine [Bentyl] 10 mg PO DAILY 05/18/18 11/16/18 amLODIPine [Norvasc] 5 mg PO QAM 05/18/18 11/16/18 Albuterol Inhaler [Ventolin Hfa 1 puff INHALATION RT-Q4H 09/29/18 11/16/18 Inhaler] Fluticasone/Umeclidin/Vilanter 1 puff INHALATION RT-DAILY 09/29/18 11/16/18 [Trelegy Ellipta 100-62.5-25] Lisinopril [Zestril] 40 mg PO DAILY 09/29/18 11/16/18 [place]-3 Fatty Acids [[place]-3] 2,000 mg PO QAM 09/29/18 11/16/18 Repaglinide [Prandin] 0.5 mg PO QAM 09/29/18 11/16/18 Vitamin B Complex 1 cap PO DAILY 09/29/18 11/16/18 rOPINIRole HCL [Requip] 1 mg PO TID 09/29/18 11/16/18 Previous Rx's Medication Instructions Recorded Sucralfate [Carafate] 1 gm PO QID #120 tablet 03/04/15 Montelukast Sodium [Singulair] 10 mg PO HS #30 tab 10/25/15 Nitroglycerin Sl Tabs [Nitrostat] 0.4 mg SUBLINGUAL Q5M PRN #0 tab 09/24/16 Aspirin 325 mg PO DAILY tab 12/01/17 Allergies Allergy/AdvReac Type Severity Reaction Status Date / Time adhesive tape Allergy bruises,"paper Verified 11/16/18 09:59 tape is ok" Iodinated Contrast- Oral and Allergy Anaphylaxis Verified 11/16/18 09:59 IV Dye Iodine and Iodide Containing Allergy Anaphylaxis Verified 11/16/18 09:59 Produc albuterol AdvReac Rapid Verified 11/16/18 09:59 Heart Rate stress test injection Allergy Anaphylaxis Uncoded 11/16/18 09:59 sun dried tomatoes Allergy lip Uncoded 11/16/18 09:59 swelling Review of Systems ROS Statement: Those systems with pertinent positive or pertinent negative responses have been documented in the HPI. ROS Other: All systems not noted in ROS Statement are negative. EKG Findings - EKG Comments: EKG Findings:: EKG performed at 1004 shows sinus rhythm first degree AV block. Nonspecific ST and T wave abnormality. Abnormal EKG. Ventricular rate of 64 bpm. Pulse 226 most seconds. QRS duration is 98 ms. QT QTc is 416/429 ms. Past Medical History Past Medical History: Asthma, COPD, Diabetes Mellitus, Myocardial Infarction (AR), Osteoarthritis (OA), Pneumonia, Sleep Apnea/CPAP/BIPAP Additional Past Medical History / Comment(s): hx NEUROPATHY FEET, AR x 2, hx migraines, restless leg syndrome, see Dr Mccullough H&P, no cpap used, uses oxygen 2L at night, diarrhea, Last Myocardial Infarction Date:: 2017 History of Any Multi-Drug Resistant Organisms: None Reported Past Surgical History: Appendectomy, Breast Surgery, Cholecystectomy, Heart Catheterization With Stent Additional Past Surgical History / Comment(s): left breast biopsy, Heart cath with stents x5 , thoracotomy R lung, Past Anesthesia/Blood Transfusion Reactions: No Reported Reaction Additional Past Anesthesia/Blood Transfusion Reaction / Comment(s): severe claustrophobia Date of Last Stent Placement:: 11/30/2017 Past Psychological History: No Psychological Hx Reported Smoking Status: Former smoker Past Alcohol Use History: None Reported Past Drug Use History: None Reported - Past Family History Brother(s) Family Medical History: Cancer Father Additional Family Medical History / Comment(s): Father of a AR at the age of 77yrs. Mother Family Medical History: Cancer Additional Family Medical History / Comment(s): Mother of a AR at the age of 74yrs. General Exam - General Exam Comments Initial Comments: 73-year-old female. Alert and oriented 3. No significant distress. Limitations: no limitations General appearance: alert, in no apparent distress Head exam: Present: atraumatic, normocephalic, normal inspection Eye exam: Present: normal appearance, PERRL, EOMI. Absent: scleral icterus, conjunctival injection, periorbital swelling ENT exam: Present: normal exam, mucous membranes moist Neck exam: Present: normal inspection. Absent: tenderness, meningismus, lymphadenopathy Respiratory exam: Present: normal lung sounds bilaterally. Absent: respiratory distress, wheezes, rales, rhonchi, stridor Cardiovascular Exam: Present: regular rate, normal rhythm, normal heart sounds. Absent: systolic murmur, diastolic murmur, rubs, gallop, clicks GI/Abdominal exam: Present: soft, normal bowel sounds. Absent: distended, tenderness, guarding, rebound, rigid Extremities exam: Present: normal inspection, full ROM, normal capillary refill. Absent: tenderness, pedal edema, joint swelling, calf tenderness Back exam: Present: normal inspection Neurological exam: Present: alert Psychiatric exam: Present: normal affect, normal mood Skin exam: Present: warm, dry, intact, normal color. Absent: rash Course Vital Signs 11/16/18 11/16/18 09:51 10:50 Temperature 98.2 F Pulse Rate 77 65 Respiratory 18 Rate Blood Pressure 199/75 152/66 O2 Sat by Pulse 96 96 Oximetry Chest Pain [facility] Patient is a 73-year-old female who presented to the emergency department after seeing her PCP. Patient complaint of her PCP was lower back pain worse with walking. She also mentioned she was having some chest pain, and dyspnea on exertion and EKG was performed out patiently. Patient was sent in for abnormal EKG. She is extensive cardiac history including 5 stents. Her bridal consultant is Dr. Mccullough. I did review patient's EKG there are some acute changes with T-wave inversions over the lateral lead. Patient states initial troponin test is negative. Chest x-ray is normal. Patient is given an aspirin. Her lumbar spine x-ray was negative for any acute process. No acute fracture or malalignment is seen in the lumbar spine. Moderate multilevel degenerative changes of the spine. Chest x-ray is negative for any acute cardiac process. Patient's case discussed with Dr. Mccoy Will discuss this patient's PCP Dr. Grande. Patient will be admitted at this time with consult to cardiology. Disposition Clinical Impression: CAD (coronary artery disease), Diabetes, HTN (hypertension), Hyperlipemia, Chronic lower back pain Disposition: ADMITTED IP TO THIS HOSP Condition: Good Is patient prescribed a controlled substance at d/c from ED?: No Referrals: Medardo Grande MD [Primary Care Provider] - 1-2 days Time of Disposition: 12:04
[2018-11-16 10:47] LABS: Anisocytosis Slight; Basophils % (A) 0 %; Eosinophils # (A) 0.2 k/uL (0-0.7); Eosinophils % (A) 2 %; HCT 35.9 % (34.0-46.0); Hypochromasia Slight; Lymphocytes # (A) 2.6 k/uL (1.0-4.8); Lymphocytes % (A) 23 %; MCH 22.8 pg (25.0-35.0); MCHC 30.6 g/dL (31.0-37.0); MCV 74.6 fL (80.0-100.0); Mean Platelet Volume 6.6; Microcytosis Moderate; Monocytes # (A) 0.6 k/uL (0-1.0); Monocytes % (A) 5 %; Neutrophils # (A) 7.8 k/uL (1.3-7.7); Neutrophils % (A) 68 %; Platelet Count 313 k/uL (150-450); RBC 4.82 m/uL (3.80-5.40); RDW 17.4 % (11.5-15.5); WBC 11.4 k/uL (3.8-10.6)
--- NOTE | 2018-11-16 10:51 | XR ---
EXAMINATION TYPE: XR chest 2V DATE OF EXAM: 11/16/2018 COMPARISON: 11/28/2018 HISTORY: Chest pain TECHNIQUE: Frontal and lateral views of the chest are obtained. FINDINGS: There is no focal air space opacity, pleural effusion, or pneumothorax seen. The cardiac silhouette size is mildly enlarged. Chronic elevation of the right hemidiaphragm is noted. Old rib f racture deformity of the posterior sixth right rib. Chronic blunting of the right costophrenic angle likely from pleural reaction. The osseous structures are intact. Mild degenerative changes of the spi ne. Left breast surgical clips. IMPRESSION: No acute cardiopulmonary process.
[2018-11-16 10:55] LABS: Albumin 3.7 g/dL (3.5-5.0); Calcium 9.6 mg/dL (8.4-10.2); Magnesium 1.5 mg/dL (1.6-2.3); Potassium 4.9 mmol/L (3.5-5.1); Total Bilirubin 0.3 mg/dL (0.2-1.3); Total Protein 6.4 g/dL (6.3-8.2)
[2018-11-16 10:59] LABS: INR 0.9 (<1.2); Partial Thromboplastin Time 23.6 sec (22.0-30.0); Prothrombin Time 9.4 sec (9.0-12.0)
--- NOTE | 2018-11-16 11:37 | XR ---
EXAMINATION TYPE: XR lumbar spine 2 or 3V DATE OF EXAM: 11/16/2018 CLINICAL HISTORY: Back pain TECHNIQUE: Frontal and lateral images of the lumbar spine are obtained. COMPARISON: None FINDINGS: There are 5 lumbar type vertebral bodies identified. Mild multilevel degenerative changes are seen as small anterior osteophytes and multilevel facet arthropathy. Extensive atherosclerosis o f the abdominal aorta. The lumbar spine shows satisfactory alignment without evidence of acute fractu re or dislocation. Vertebral body heights and disk space heights are within normal limits.. The over lying soft tissue appears unremarkable. Cholecystectomy clips are noted. Mild generalized osseous dem ineralization. IMPRESSION: No acute fracture or malalignment is seen in the lumbar spine. Moderate multilevel degen erative changes of the spine.
[2018-11-16] MEDS ORDERED: NITROGLYCERIN SL TABS 0.4 MG TAB SUBLINGUAL PRN ×2 (12:13→13:36)
[2018-11-16] MEDS ORDERED: HEPARIN SODIUM,PORCINE 5,000 UNIT/ML 1 ML VIAL IV STA (12:15)
[2018-11-16] MEDS: HEPARIN SOD,PORK IN 0.45% NACL 25,000 UNIT in 0.45% NACL 1 250ML.BAG IV SCH (12:27)
--- NOTE | 2018-11-16 12:59 | HP ---
HISTORY AND PHYSICAL SUBJECTIVE: This is a 73-year-old white female with unstable angina with exertional chest pain for which she takes nitroglycerin sublingual. EKG in my office today with chest pain showed ischemia in all the anterior lateral leads, greatly changed from August 2018 EKG at which time she was admitted for unstable angina with Cardiology consult. She apparently had some kind of reaction to the last stress test she had. She had a heart catheterization 3 or 4 months ago which was okay with no acute coronary artery occlusions but due to worsening unstable angina, relieved by nitroglycerin and abnormal EKG, she is admitted to the cardiac floor for 23 hours. She has a history insulin-dependent diabetes mellitus, coronary artery disease, obesity, obstructive sleep apnea, asthma. MEDICATIONS: See list. REVIEW OF SYSTEMS: As mentioned above. Otherwise, 14-point review of systems negative. VITAL SIGNS: Stable, afebrile. CARDIOVASCULAR: S1, S2. LUNGS: Wheezes x4. ENDOCRINE: BMI is over 40. PSYCH: Fair mood and affect. NEUROLOGIC: Alert and orient x3. GI: Soft, nontender. HEMATOLOGY: 2 to 3+ edema. ASSESSMENT: Unstable angina, exertional chest pain, abnormal EKG, rule out myocardial infarction. Cardiology possibly do a heart catheterization. MMODL / IJN: [id number] /
[2018-11-16] MEDS ORDERED: Magnesium Replacement Protocol 1 EACH MISC MISCELLANE PRN (13:36)
[2018-11-16] MEDS ORDERED: IPRATROPIUM-ALBUTEROL 3 ML NEB INHALATION PRN (13:40)
[2018-11-16] MEDS: HYDROcodone/APAP 7.5-325MG 1 EACH TAB PO PRN (14:06)
[2018-11-16] MEDS: MAGNESIUM SULFATE-D5W PMX 1 GM in DEXTROSE/WATER 1 100ML.BAG IVPB SCH ×2 (14:24→16:22)
[2018-11-16] MEDS: IPRATROPIUM-ALBUTEROL 3 ML NEB INHALATION SCH ×2 (14:52→18:32)
[2018-11-16 16:37] LABS: Glucose,Whole Blood 155 mg/dL (75-99)
[2018-11-16] MEDS: INSULN ASP PRT/INSULIN ASPART 100 UNIT/ML 10 ML VIAL SQ SCH (17:08)
[2018-11-16] MEDS: INSULIN ASPART (NovoLOG) 100 UNIT/ML VIAL SQ SCH ×2 (17:08→20:37)
[2018-11-16] MEDS: SUCRALFATE 1 GM TAB PO SCH ×2 (17:09→20:36)
[2018-11-16] MEDS: METOCLOPRAMIDE 10 MG TAB PO SCH ×2 (17:09→20:36)
[2018-11-16] MEDS: HEPARIN SODIUM,PORCINE 5,000 UNIT/ML 1 ML VIAL IV PRN (18:11)
[2018-11-16] MEDS ORDERED: ACETAMINOPHEN TAB 325 MG TAB PO PRN (18:16)
[2018-11-16 20:13] LABS: Glucose,Whole Blood 144 mg/dL (75-99)
[2018-11-16] MEDS: metFORMIN 500 MG TAB PO SCH (20:36)
[2018-11-16] MEDS: METOPROLOL TARTRATE 50 MG TAB PO SCH (20:36)
[2018-11-16] MEDS ORDERED: MELATONIN 5 MG TABLET PO SCH (21:00)
[2018-11-16] MEDS ORDERED: ATORVASTATIN 10 MG TAB PO SCH (21:00)
[2018-11-16] MEDS ORDERED: MONTELUKAST 10 MG TAB PO SCH (21:00)
[2018-11-17] MEDS: HYDROcodone/APAP 7.5-325MG 1 EACH TAB PO PRN (01:26)
[2018-11-17] MEDS: HEPARIN SODIUM,PORCINE 5,000 UNIT/ML 1 ML VIAL IV PRN (02:06)
[2018-11-17] MEDS: HEPARIN SOD,PORK IN 0.45% NACL 25,000 UNIT in 0.45% NACL 1 250ML.BAG IV SCH (02:26)
[2018-11-17 04:01] VITALS: RESP 16
[2018-11-17 07:00] LABS: Glucose,Whole Blood 102 mg/dL (75-99)
[2018-11-17 07:33] VITALS: BP 174/80; PULSE 77; TEMP 98.7
[2018-11-17] MEDS: IPRATROPIUM-ALBUTEROL 3 ML NEB INHALATION SCH ×2 (07:48→10:29)
[2018-11-17] MEDS ORDERED: SYMBICORT 80-4.5 MCG INHALER INHALATION SCH (08:00)
[2018-11-17] MEDS: INSULIN ASPART (NovoLOG) 100 UNIT/ML VIAL SQ SCH ×2 (08:57→12:30)
[2018-11-17] MEDS ORDERED: ASPIRIN 325 MG TAB PO SCH (09:00)
[2018-11-17] MEDS ORDERED: FAMOTIDINE 20 MG TAB PO SCH (09:00)
[2018-11-17] MEDS ORDERED: CLOPIDOGREL 75 MG TAB PO SCH (09:00)
[2018-11-17] MEDS ORDERED: OMEGA PO SCH (09:00)
[2018-11-17] MEDS ORDERED: amLODIPine 5 MG TAB PO SCH (09:00)
[2018-11-17] MEDS ORDERED: LISINOPRIL 20 MG TAB PO SCH (09:00)
[2018-11-17] MEDS ORDERED: CHOLECALCIFEROL 1,000 UNIT TAB PO SCH (09:00)
[2018-11-17] MEDS ORDERED: DICYCLOMINE 10 MG CAP PO SCH (09:00)
[2018-11-17] MEDS ORDERED: REPAGLINIDE 1 MG TAB PO SCH (09:00)
[2018-11-17] MEDS ORDERED: NON-FORMULARY DRUG (Vitamin B Complex [Vitamin B Complex] 1 CAP) PO SCH (09:00)
[2018-11-17] MEDS ORDERED: FATTY ACIDS PO SCH (09:00)
--- NOTE | 2018-11-17 09:06 | P.CRDCN ---
History of Present Illness Consult date: 11/17/18 History of present illness: This is a 73-year-old female with history of ischemic heart disease with a previous stent placement of the right coronary , left anterior and also circumflex and is coronary artery. Patient had a cardiac catheterization in September of this year because of recurrent chest pain suggestive of angina. Cardiac catheterization revealed patent stents in all 3 vessels. There was a critical lesion in the small diagonal branch which was chronic. Patient was advised the maximum medical therapy. Yesterday patient went to see Dr. Bergman mainly complrandy armstrong of lower back pain. She also mentions that she's been getting intermittent chest pains the last episode being about a week ago. She claims she takes couple of nitroglycerin with relief. So far EKGs showed mild nonspecific ST-T abnormalities. Enzymes 1 is negative. If subsequent to enzymes are negative, patient could be discharged home. Further evaluation as an outpatient may be considered. Patient may be having angina from small diagonal branch. However, at this time, patient could be discharged home on medical therapy. Review of Systems As per the chart Past Medical History Past Medical History: Asthma, COPD, Diabetes Mellitus, Myocardial Infarction ([place]), Osteoarthritis ([place]), Pneumonia, Sleep Apnea/CPAP/BIPAP Additional Past Medical History / Comment(s): hx NEUROPATHY FEET, [place] x 2, hx migraines, restless leg syndrome, see Dr Mccullough H&P, no cpap used, uses oxygen 2L at night, diarrhea, Last Myocardial Infarction Date:: 2017 History of Any Multi-Drug Resistant Organisms: None Reported Past Surgical History: Appendectomy, Breast Surgery, Cholecystectomy, Heart Catheterization With Stent Additional Past Surgical History / Comment(s): left breast biopsy, Heart cath with stents x5 , thoracotomy R lung, Past Anesthesia/Blood Transfusion Reactions: No Reported Reaction Additional Past Anesthesia/Blood Transfusion Reaction / Comment(s): severe claustrophobia Date of Last Stent Placement:: 11/30/2017 Past Psychological History: No Psychological Hx Reported Additional Psychological History / Comment(s): claustrophobia Smoking Status: Former smoker Past Alcohol Use History: None Reported Additional Past Alcohol Use History / Comment(s): STARTED SMOKING AGE 18 (1963) AND QUIT 1994. SMOKED 1 PPD. STATES SHE IS AN ALCOHOLIC AND QUIT DRINKING 29 yrs ago Past Drug Use History: None Reported - Past Family History Brother(s) Family Medical History: Cancer Father Additional Family Medical History / Comment(s): Father of a [place] at the age of 77yrs. Mother Family Medical History: Cancer Additional Family Medical History / Comment(s): Mother of a [place] at the age of 74yrs. Medications and Allergies Home Medications Medication Instructions Recorded Confirmed Type Cholecalciferol [Vitamin D3 (25 1,000 unit PO DAILY 02/26/15 11/16/18 History Mcg = 1000 Iu)] Isosorbide Mononitrate ER [Imdur] 30 mg PO QAM 02/26/15 11/16/18 History Simvastatin [Zocor] 20 mg PO HS 02/26/15 11/16/18 History Sucralfate [Carafate] 1 gm PO QID #120 tablet 03/04/15 11/16/18 Rx Clopidogrel [Plavix] 75 mg PO QAM 09/05/15 11/16/18 History metFORMIN HCL 1,000 mg PO BID 09/05/15 11/16/18 History Montelukast Sodium [Singulair] 10 mg PO HS #30 tab 10/25/15 11/16/18 Rx Nitroglycerin Sl Tabs [Nitrostat] 0.4 mg SUBLINGUAL Q5M PRN #0 tab 09/24/16 11/16/18 Rx Aspirin 325 mg PO DAILY tab 12/01/17 11/16/18 Rx Dulaglutide [Trulicity] 0.75 mg SQ SA 02/09/18 11/16/18 History HYDROcodone/APAP 7.5-325MG [[place] 1 tab PO BID 02/09/18 11/16/18 History 7.5-325] Insulin Aspart Protam & Aspart 30 unit SQ AC-BID 02/09/18 11/16/18 History [NovoLOG MIX 70-30 Flexpen] Melatonin 5 mg PO HS 02/09/18 11/16/18 History Metoclopramide [Reglan] 10 mg PO QID 02/09/18 11/16/18 History Metoprolol Tartrate [Lopressor] 50 mg PO BID 02/09/18 11/16/18 History Ranitidine HCl 300 mg PO DAILY 02/09/18 11/16/18 History Dicyclomine [Bentyl] 10 mg PO DAILY 05/18/18 11/16/18 History amLODIPine [Norvasc] 5 mg PO QAM 05/18/18 11/16/18 History Albuterol Inhaler [Ventolin Hfa 1 puff INHALATION RT-Q4H 09/29/18 11/16/18 History Inhaler] Fluticasone/Umeclidin/Vilanter 1 puff INHALATION RT-DAILY 09/29/18 11/16/18 History [Trelegy Ellipta 100-62.5-25] Lisinopril [Zestril] 40 mg PO DAILY 09/29/18 11/16/18 History [place]-3 Fatty Acids [[place]-3] 2,000 mg PO QAM 09/29/18 11/16/18 History Repaglinide [Prandin] 0.5 mg PO QAM 09/29/18 11/16/18 History Vitamin B Complex 1 cap PO DAILY 09/29/18 11/16/18 History rOPINIRole HCL [Requip] 1 mg PO TID 09/29/18 11/16/18 History Allergies Allergy/AdvReac Type Severity Reaction Status Date / Time adhesive tape Allergy bruises,"paper Verified 11/16/18 09:59 tape is ok" Iodinated Contrast- Oral and Allergy Anaphylaxis Verified 11/16/18 09:59 IV Dye Iodine and Iodide Containing Allergy Anaphylaxis Verified 11/16/18 09:59 Produc albuterol AdvReac Rapid Verified 11/16/18 09:59 Heart Rate stress test injection Allergy Anaphylaxis Uncoded 11/16/18 09:59 sun dried tomatoes Allergy lip Uncoded 11/16/18 09:59 swelling Physical Exam Vitals: Vital Signs Temp Pulse Pulse Resp BP BP BP 11/17/18 07:32 98.7 F 77 16 174/80 11/17/18 04:00 98.0 F 72 16 159/64 11/16/18 23:41 98.2 F 74 18 176/75 11/16/18 19:39 98.3 F 76 16 178/70 11/16/18 15:45 11/16/18 15:44 97.9 F 84 18 149/78 11/16/18 13:04 97.7 F 69 18 154/71 11/16/18 12:00 67 16 158/71 11/16/18 11:00 64 16 152/66 11/16/18 10:50 65 152/66 11/16/18 09:51 98.2 F 77 18 199/75 Pulse Ox 11/17/18 07:32 93 L 11/17/18 04:00 90 L 11/16/18 23:41 92 L 11/16/18 19:39 90 L 11/16/18 15:45 98 11/16/18 15:44 94 L 11/16/18 13:04 92 L 11/16/18 12:00 94 L 11/16/18 11:00 96 11/16/18 10:50 96 11/16/18 09:51 96 Intake and Output 11/16/18 11/17/18 11/17/18 22:59 06:59 14:59 Intake Total 477.644 142.626 Balance 477.644 142.626 Intake: Intake, IV Titration 57.644 142.626 Amount Heparin Sod,Pork in 0.45% 57.644 142.626 NaCl 25,000 unit In 0.45 % NaCl 1 250ml.bag @ 7.76 UNITS/KG/HR 9.996 mls/hr IV .Q24H [facility] Rx#: [id number] Oral 420 Other: Voiding Method Toilet Toilet Toilet # Voids 2 1 GENERAL EXAM: Patient is alert and oriented and doesn't appear to be in any acute distress HEENT: Normocephalic. Normal reaction of pupils, equal size, normal range of extraocular motion. No erythema or exudates in the throat. NECK: No masses, no nuchal rigidity. CHEST: No chest wall deformity. LUNGS: Equal air entry with no crackles or wheeze. HEART: S1 and S2 normal with no audible mumurs or gallops. Regular rhythm, femorals equal on both sides.. ABDOMEN: No hepatosplenomegaly, normal bowel sounds, no guarding or rigidity. SKIN: No rashes CENTRAL NERVOUS SYSTEM: No focal deficits. EXTREMITIES: No cyanosis, clubbing or edema. Results 11/16/18 10:17 11/16/18 10:17 Cardiac Enzymes 11/16/18 11/16/18 11/16/18 Range/Units 10:17 10:17 17:17 AST 30 (14-36) U/L Troponin I <0.012 <0.012 (0.000-0.034) ng/mL 11/16/18 Range/Units 22:31 AST (14-36) U/L Troponin I <0.012 (0.000-0.034) ng/mL Coagulation 11/16/18 11/16/18 11/17/18 Range/Units 10:17 17:17 01:18 PT 9.4 (9.0-12.0) sec APTT 23.6 26.3 42.7 H (22.0-30.0) sec CBC 11/16/18 Range/Units 10:17 WBC 11.4 H (3.8-10.6) k/uL RBC 4.82 (3.80-5.40) m/uL Hgb 11.0 L (11.4-16.0) gm/dL Hct 35.9 (34.0-46.0) % Plt Count 313 (150-450) k/uL Comprehensive Metabolic Panel 11/16/18 Range/Units 10:17 Sodium 137 (137-145) mmol/L Potassium 4.9 (3.5-5.1) mmol/L Chloride 101 (98-107) mmol/L Carbon Dioxide 25 (22-30) mmol/L BUN 17 (7-17) mg/dL Creatinine 0.77 (0.52-1.04) mg/dL Glucose 96 (74-99) mg/dL Calcium 9.6 (8.4-10.2) mg/dL AST 30 (14-36) U/L ALT 33 (9-52) U/L Alkaline Phosphatase 85 (38-126) U/L Total Protein 6.4 (6.3-8.2) g/dL Albumin 3.7 (3.5-5.0) g/dL Current Medications Generic Name Dose Route Start Last Admin Trade Name Freq PRN Reason Stop Dose Admin Acetaminophen 650 mg 11/16/18 18:16 Tylenol Tab PO Q6HR PRN Fever and/ or Mild Pain Hydrocodone Bitart/Acetaminophen 1 each 11/16/18 13:36 11/17/18 01:26 [place] 7.5-325 PO 1 each BID PRN Administration Pain Albuterol/Ipratropium 3 ml 11/16/18 16:00 11/17/18 07:48 Duoneb 0.5 Mg-3 Mg/3 Ml Soln INHALATION Not Given RT-QID [facility] Albuterol/Ipratropium 3 ml 11/16/18 13:40 Duoneb 0.5 Mg-3 Mg/3 Ml Soln INHALATION RT-Q2H PRN Shortness Of Breath Or Wheezing Amlodipine Besylate 5 mg 11/17/18 09:00 Norvasc PO QAM [facility] Aspirin 325 mg 11/17/18 09:00 Aspirin PO DAILY [facility] Atorvastatin Calcium 10 mg 11/16/18 21:00 11/16/18 20:35 Lipitor PO 10 mg HS [facility] Administration Budesonide/Formoterol Fumarate 2 puff 11/17/18 08:00 11/17/18 07:48 Symbicort 80-4.5 Mcg Inhaler INHALATION 2 puff RT-BID [facility] Administration Cholecalciferol 1,000 unit 11/17/18 09:00 Vitamin D3 (25 Mcg = 1000 Iu) PO DAILY [facility] Clopidogrel Bisulfate 75 mg 11/17/18 09:00 Plavix PO QAM [facility] Dicyclomine HCl 10 mg 11/17/18 09:00 Bentyl PO DAILY [facility] Famotidine 40 mg 11/17/18 09:00 Pepcid PO DAILY [facility] Heparin Sodium (Porcine) 0 unit 11/16/18 17:55 11/17/18 02:06 Heparin IV 3,200 unit PER PROTOCOL PRN Administration Low PTT Protocol Heparin Sodium/Sodium Chloride 250 mls @ 9.996 mls/hr 11/16/18 12:15 11/17/18 02:26 25,000 unit/ Sodium Chloride IV 15.35 units/kg/hr .Q24H [facility] 19.774 mls/hr Administration Protocol 7.76 UNITS/KG/HR Insulin Aspart 30 unit 11/16/18 17:30 11/16/18 17:08 Novolog Mix 70-30 Vial SQ 30 unit AC-BID [facility] Administration Insulin Aspart 0 unit 11/16/18 17:30 11/17/18 08:57 Novolog SQ Not Given ACHS [facility] Protocol Isosorbide Mononitrate 30 mg 11/17/18 09:00 Imdur PO QAM [facility] Lisinopril 40 mg 11/17/18 09:00 Zestril PO DAILY [facility] Melatonin 5 mg 11/16/18 21:00 11/16/18 20:36 Melatonin PO 5 mg HS [facility] Administration Metformin HCl 1,000 mg 11/16/18 21:00 07/03/19 20:36 Glucophage PO 1,000 mg BID [facility] Administration Metoclopramide HCl 10 mg 11/16/18 18:00 11/16/18 20:36 Reglan PO 10 mg QID [facility] Administration Metoprolol Tartrate 50 mg 11/16/18 21:00 11/16/18 20:36 Lopressor PO 50 mg BID [facility] Administration Miscellaneous Information 1 each 11/16/18 13:36 Magnesium Per Protocol MISCELLANE DAILY PRN Per Protocol Protocol Montelukast Sodium 10 mg 11/16/18 21:00 11/16/18 20:36 Singulair PO 10 mg HS [facility] Administration Nitroglycerin 0.4 mg 11/16/18 12:13 Nitrostat SUBLINGUAL Q5M PRN Chest Pain Non-Formulary Medication 0.75 mg 11/19/18 12:00 Dulaglutide [Trulicity] SQ SA [facility] Repaglinide 0.5 mg 11/17/18 09:00 Prandin PO QAM [facility] Ropinirole HCl 1 mg 11/16/18 16:00 11/16/18 20:36 Requip PO 1 mg TID [facility] Administration Sucralfate 1 gm 11/16/18 18:00 11/16/18 20:36 Carafate PO 1 gm QID [facility] Administration Intake and Output 11/16/18 11/17/18 11/17/18 22:59 06:59 14:59 Intake Total 477.644 142.626 Balance 477.644 142.626 Intake: Intake, IV Titration 57.644 142.626 Amount Heparin Sod,Pork in 0.45% 57.644 142.626 NaCl 25,000 unit In 0.45 % NaCl 1 250ml.bag @ 7.76 UNITS/KG/HR 9.996 mls/hr IV .Q24H [facility] Rx#: [id number] Oral 420 Other: Voiding Method Toilet Toilet Toilet # Voids 2 1 11/16/18 10:17 11/16/18 10:17 EKG Interpretations (text) Sinus rhythm with mild nonspecific changes, especially in the lateral leads Assessment and Plan (1) CAD (coronary artery disease) Current Visit: Yes Status: Acute Code(s): I25.10 - ATHSCL HEART DISEASE OF [place] CORONARY ARTERY W/O ANG PCTRS SNOMED Code(s): 47601637 (2) Chronic lower back pain Current Visit: Yes Status: Acute Code(s): M54.5 - LOW BACK PAIN; G89.29 - OTHER CHRONIC PAIN SNOMED Code(s): 114352819 (3) Diabetes Current Visit: Yes Status: Acute Code(s): E11.9 - TYPE 2 DIABETES MELLITUS WITHOUT COMPLICATIONS SNOMED Code(s): 87316980 (4) HTN (hypertension) Current Visit: Yes Status: Acute Code(s): I10 - ESSENTIAL (PRIMARY) HYPERTENSION SNOMED Code(s): 89703448 (5) Hyperlipemia Current Visit: Yes Status: Acute Code(s): E78.5 - HYPERLIPIDEMIA, UNSPECIF IED SNOMED Code(s): 73284136 (6) Chest pain Current Visit: No Status: Acute Code(s): R07.9 - CHEST PAIN, UNSPECIFIED SNOMED Code(s): 13761376 Plan: Patient has been having intermittent chest pains which has been chronic. Patient is also complaining of lower back pain. EKGs show nonspecific changes. She had a cardiac catheterization in September of this year which showed patent stents in all 3 vessels except had significant lesion in the small diagonal branch. We'll maximize medical therapy. If cardiac enzymes are negative, patient could be discharged home.
[2018-11-17] MEDS: INSULN ASP PRT/INSULIN ASPART 100 UNIT/ML 10 ML VIAL SQ SCH (09:07)
[2018-11-17] MEDS: METOCLOPRAMIDE 10 MG TAB PO SCH (09:08)
[2018-11-17] MEDS: metFORMIN 500 MG TAB PO SCH (09:08)
[2018-11-17] MEDS: SUCRALFATE 1 GM TAB PO SCH (09:08)
[2018-11-17] MEDS: METOPROLOL TARTRATE 50 MG TAB PO SCH (09:09)
[2018-11-17 09:14] LABS: Calcium 9.4 mg/dL (8.4-10.2); Magnesium 1.7 mg/dL (1.6-2.3); Potassium 4.2 mmol/L (3.5-5.1)
[2018-11-17] MEDS: ISOSORBIDE MONONITRATE ER 30 MG TAB.ER.24H PO SCH ×2 (09:15→12:30)
[2018-11-17 09:34] LABS: Anisocytosis Slight; Basophils # (A) 0.1 k/uL (0-0.2); Basophils % (A) 1 %; Eosinophils # (A) 0.2 k/uL (0-0.7); Eosinophils % (A) 2 %; HCT 37.3 % (34.0-46.0); HGB 11.3 gm/dL (11.4-16.0); Hypochromasia Moderate; Lymphocytes # (A) 2.4 k/uL (1.0-4.8); Lymphocytes % (A) 24 %; MCH 23.1 pg (25.0-35.0); MCHC 30.2 g/dL (31.0-37.0); MCV 76.2 fL (80.0-100.0); Mean Platelet Volume 6.6; Microcytosis Slight; Monocytes # (A) 0.5 k/uL (0-1.0); Monocytes % (A) 5 %; Neutrophils # (A) 6.4 k/uL (1.3-7.7); Neutrophils % (A) 66 %; Platelet Count 259 k/uL (150-450); RDW 17.6 % (11.5-15.5); WBC 9.7 k/uL (3.8-10.6)
--- NOTE | 2018-11-17 11:31 | P.DS ---
Providers Date of admission: 11/16/18 11:52 Expected date of discharge: 11/17/18 Attending physician: Medardo Grande Consults: 11/16/18 12:13 Consult Physician Urgent Consulting Provider: Sergey Mccullough Consult Reason/Comments: Chest pain Do you want consulting provider notified?: Yes Primary care physician: Medardo Grande [facility] Course: Final Diagnoses: -Unstable angina, exertional chest pain, abnormal EKG. Recent cardiac catheterization reporting patent stents, significant lesion in the small diagonal branch. Evaluated by cardiology, maximizing medical therapy. -CAD -Hypertension -Chronic lower back pain -DM -Morbid obesity, BMI 44.5 Hospital course: This is a 73-year-old female admitted with exertional chest pain, unstable angina, abnormal EKG-refer to H&P for specific, full details. Troponin is negative 3. Follow-up EKG reporting sinus rhythm with first-degree AV block, nonspecific ST/T-wave abnormalities. Evaluated by cardiology, maximizing medical therapy. No further chest pain, back pain controlled.Significant clinical improvement. Patient is being discharged home in a stable condition with guarded prognosis. EXAM: GENERAL: Sitting up in bed, no acute distress. CARDIOVASCULAR: S1, S2 regular.. No murmur RESPIRATION: Breath sounds diminished in the bases. No rhonchi or crackles. No bronchial breathing. ABDOMEN: Soft, nontender . No guarding. no masses palpable. Bowel sounds heard. NERVOUS SYSTEM: No focal deficits. The impression and plan of care has been dictated as directed. : I performed a history and examination of this patient, discussed the same with the dictator. I agree with the dictator's note ,documented as a scribe. Any additional findings or plans will be noted. Time taken: 35 minutes Patient Condition at Discharge: Stable Plan - Discharge Summary Discharge Rx Participant: No New Discharge Prescriptions: New Isosorbide Mononitrate ER [Imdur] 60 mg PO DAILY #30 tab.er.24h amLODIPine [Norvasc] 10 mg PO QAM #30 tab Continue Simvastatin [Zocor] 20 mg PO HS Cholecalciferol [Vitamin D3 (25 Mcg = 1000 Iu)] 1,000 unit PO DAILY Sucralfate [Carafate] 1 gm PO QID #120 tablet Clopidogrel [Plavix] 75 mg PO QAM metFORMIN HCL 1,000 mg PO BID Montelukast Sodium [Singulair] 10 mg PO HS #30 tab Nitroglycerin Sl Tabs [Nitrostat] 0.4 mg SUBLINGUAL Q5M PRN #0 tab PRN Reason: Chest Pain Aspirin 325 mg PO DAILY tab Metoprolol Tartrate [Lopressor] 50 mg PO BID Metoclopramide [Reglan] 10 mg PO QID Melatonin 5 mg PO HS Ranitidine HCl 300 mg PO DAILY Insulin Aspart Protam & Aspart [NovoLOG MIX 70-30 Flexpen] 30 unit SQ AC-BID HYDROcodone/APAP 7.5-325MG [[place] 7.5-325] 1 tab PO BID Dulaglutide [Trulicity] 0.75 mg SQ SA Dicyclomine [Bentyl] 10 mg PO DAILY Albuterol Inhaler [Ventolin Hfa Inhaler] 1 puff INHALATION RT-Q4H Fluticasone/Umeclidin/Vilanter [Trelegy Ellipta 100-62.5-25] 1 puff INHALATION RT-DAILY Lisinopril [Zestril] 40 mg PO DAILY [place]-3 Fatty Acids [[place]-3] 2,000 mg PO QAM Repaglinide [Prandin] 0.5 mg PO QAM rOPINIRole HCL [Requip] 1 mg PO TID Vitamin B Complex 1 cap PO DAILY Discontinued Isosorbide Mononitrate ER [Imdur] 30 mg PO QAM amLODIPine [Norvasc] 5 mg PO QAM Discharge Medication List Cholecalciferol [Vitamin D3 (25 Mcg = 1000 Iu)] 1,000 unit PO DAILY 02/26/15 [History] Simvastatin [Zocor] 20 mg PO HS 02/26/15 [History] Sucralfate [Carafate] 1 gm PO QID #120 tablet 03/04/15 [Rx] Clopidogrel [Plavix] 75 mg PO QAM 09/05/15 [History] metFORMIN HCL 1,000 mg PO BID 09/05/15 [History] Montelukast Sodium [Singulair] 10 mg PO HS #30 tab 10/25/15 [Rx] Nitroglycerin Sl Tabs [Nitrostat] 0.4 mg SUBLINGUAL Q5M PRN #0 tab 09/24/16 [Rx] Aspirin 325 mg PO DAILY tab 12/01/17 [Rx] Dulaglutide [Trulicity] 0.75 mg SQ SA 02/09/18 [History] HYDROcodone/APAP 7.5-325MG [[place] 7.5-325] 1 tab PO BID 02/09/18 [History] Insulin Aspart Protam & Aspart [NovoLOG MIX 70-30 Flexpen] 30 unit SQ AC-BID 02/09/18 [History] Melatonin 5 mg PO HS 02/09/18 [History] Metoclopramide [Reglan] 10 mg PO QID 02/09/18 [History] Metoprolol Tartrate [Lopressor] 50 mg PO BID 02/09/18 [History] Ranitidine HCl 300 mg PO DAILY 02/09/18 [History] Dicyclomine [Bentyl] 10 mg PO DAILY 05/18/18 [History] Albuterol Inhaler [Ventolin Hfa Inhaler] 1 puff INHALATION RT-Q4H 09/29/18 [History] Fluticasone/Umeclidin/Vilanter [Trelegy Ellipta 100-62.5-25] 1 puff INHALATION RT-DAILY 09/29/18 [History] Lisinopril [Zestril] 40 mg PO DAILY 09/29/18 [History] [place]-3 Fatty Acids [[place]-3] 2,000 mg PO QAM 09/29/18 [History] Repaglinide [Prandin] 0.5 mg PO QAM 09/29/18 [History] Vitamin B Complex 1 cap PO DAILY 09/29/18 [History] rOPINIRole HCL [Requip] 1 mg PO TID 09/29/18 [History] Isosorbide Mononitrate ER [Imdur] 60 mg PO DAILY #30 tab.er.24h 11/17/18 [Rx] amLODIPine [Norvasc] 10 mg PO QAM #30 tab 11/17/18 [Rx] Follow up Appointment(s)/Referral(s): Medardo Grande MD [Primary Care Provider] - 1 Week Sergey Mccullough MD [STAFF PHYSICIAN] - 1 Week Ambulatory/Diagnostic Orders: Complete Blood Count w/diff [LAB.AMB] Time Frame: 3 Days, Location: None Selected
[2018-11-18] MEDS ORDERED: amLODIPine 10 MG TAB PO SCH (09:00)
[2018-11-18] MEDS ORDERED: ISOSORBIDE MONONITRATE ER 60 MG TAB.ER.24H PO SCH (09:00)
[2018-11-19] MEDS ORDERED: NON-FORMULARY DRUG (Dulaglutide [Trulicity] 0.75 MG) SQ SCH (12:00)
== END 2018-11-17 12:40 ==
LOC: EC 09:49 → 1SOBS 11:52
PROVIDERS: ADMIT Family Medicine; ATTEND Family Medicine
DX: I25.110 Atherosclerotic heart disease of native coronary artery with unstable angina pectoris (principal); G89.29 Other chronic pain; M54.5 Low back pain; E11.40 Type 2 diabetes mellitus with diabetic neuropathy, unspecified; E66.01 Morbid (severe) obesity due to excess calories; Z68.41 Body mass index [BMI] 40.0-44.9, adult; I44.0 Atrioventricular block, first degree; J44.9 Chronic obstructive pulmonary disease, unspecified; I10 Essential (primary) hypertension; E78.5 Hyperlipidemia, unspecified; G47.33 Obstructive sleep apnea (adult) (pediatric); I25.2 Old myocardial infarction; M19.90 Unspecified osteoarthritis, unspecified site; G25.81 Restless legs syndrome; G43.909 Migraine, unspecified, not intractable, without status migrainosus; R19.7 Diarrhea, unspecified; Z99.81 Dependence on supplemental oxygen; F40.240 Claustrophobia; Z90.49 Acquired absence of other specified parts of digestive tract; Z87.01 Personal history of pneumonia (recurrent); Z87.891 Personal history of nicotine dependence; Z95.5 Presence of coronary angioplasty implant and graft; Z79.02 Long term (current) use of antithrombotics/antiplatelets; Z79.4 Long term (current) use of insulin; Z79.899 Other long term (current) drug therapy; Z79.891 Long term (current) use of opiate analgesic; Z79.82 Long term (current) use of aspirin; Z91.041 Radiographic dye allergy status; Z88.8 Allergy status to other drugs, medicaments and biological substances; Z91.018 Allergy to other foods; Z91.048 Other nonmedicinal substance allergy status; Z82.49 Family history of ischemic heart disease and other diseases of the circulatory system; Z80.9 Family history of malignant neoplasm, unspecified
CPT/HCPCS: 96366 ×2; 96368; 96376 ×3; 96361; 96365; 99285; 36415; 94640; 93005; 83880; 80061; 80053; 80048; 83735 ×2; 84484; 85025 ×2; 85610; 85730 ×2; 72100; 71046; G0378 ×2; J1644 ×4; J3475

== ENCOUNTER 2019-04-16 05:14 | Observation (INO) | payer MEDICARE, OTHER ==
[2019-04-16] MEDS ORDERED: ASPIRIN 81 MG PO STA ×2 (05:39→05:51)
[2019-04-16 05:51] LABS: Anisocytosis Slight; Basophils % (A) 0 %; Eosinophils # (A) 0.3 k/uL (0-0.7); Eosinophils % (A) 2 %; HCT 36.9 % (34.0-46.0); HGB 11.6 gm/dL (11.4-16.0); Hypochromasia Slight; Lymphocytes % (A) 24 %; MCH 24.3 pg (25.0-35.0); MCHC 31.6 g/dL (31.0-37.0); MCV 77.1 fL (80.0-100.0); Mean Platelet Volume 6.6; Microcytosis Slight; Monocytes # (A) 0.7 k/uL (0-1.0); Monocytes % (A) 6 %; Neutrophils # (A) 8.1 k/uL (1.3-7.7); Neutrophils % (A) 65 %; Platelet Count 311 k/uL (150-450); RBC 4.79 m/uL (3.80-5.40); RDW 16.8 % (11.5-15.5); WBC 12.5 k/uL (3.8-10.6)
[2019-04-16] MEDS ORDERED: NITROGLYCERIN OINT 1 INCH/GM PACKET TOPICAL STA (05:51)
[2019-04-16 05:52] LABS: Appearance,Urine Clear (Clear); Bilirubin,Urine Negative (Negative); Blood,Urine Negative (Negative); Color,Urine Light Yellow; Glucose,Urine (UA) Negative (Negative); Ketones,Urine Negative (Negative); Leukocyte Esterase,Urine Negative (Negative); Nitrite,Urine Negative (Negative); Protein,Urine 1+ (Negative); RBC,Urine 1 /hpf (0-5); Specific Gravity,Urine 1.007 (1.001-1.035); Squamous Epithelial Cell,Urine <1 /hpf (0-4); Urobilinogen,Urine <2.0 mg/dL (<2.0); WBC,Urine 1 /hpf (0-5)
--- NOTE | 2019-04-16 05:57 | ED ---
Chest Pain HPI - General Chief Complaint: Chest Pain Stated Complaint: Chest Pressure Time Seen by Provider: 04/16/19 05:39 Source: patient Mode of arrival: ambulatory Limitations: no limitations - History of Present Illness Initial Comments: Patient 73-year-old woman presenting to be evaluated for substernal chest discomfort. She states this been going on for perhaps a month or so. She has seen her physician Dr. Grande. She states that she also does have some exertional dyspnea associated. She does have some bilateral leg edema area the patient states that since arriving here she is feeling a little bit better and is not having chest discomfort at my history and physical. MD Complaint: chest pain Onset/Timin -: month(s) Onset: during rest Pain Location: substernal Pain Radiation: none Severity: moderate Quality: heaviness Consistency: constant Improves With: nitroglycerin Worsens With: exertion Treatments Prior to Arrival: none - Related Data Home Medications Medication Instructions Recorded Confirmed Cholecalciferol [Vitamin D3 (25 1,000 unit PO DAILY 02/26/15 04/16/19 Mcg = 1000 Iu)] Simvastatin [Zocor] 20 mg PO HS 02/26/15 04/16/19 Clopidogrel [Plavix] 75 mg PO QAM 09/05/15 04/16/19 metFORMIN HCL 1,000 mg PO BID 09/05/15 04/16/19 HYDROcodone/APAP 7.5-325MG [[place] 1 tab PO QID 02/09/18 04/16/19 7.5-325] Insulin Aspart Protam & Aspart 30 unit SQ AC-BID 02/09/18 04/16/19 [NovoLOG MIX 70-30 Flexpen] Melatonin 5 mg PO HS 02/09/18 04/16/19 Metoclopramide [Reglan] 10 mg PO QID PRN 02/09/18 04/16/19 Metoprolol Tartrate [Lopressor] 50 mg PO BID 02/09/18 04/16/19 Ranitidine HCl 300 mg PO DAILY 02/09/18 04/16/19 Fluticasone/Umeclidin/Vilanter 1 puff INHALATION RT-DAILY 09/29/18 04/16/19 [Trelegy Ellipta 100-62.5-25] Lisinopril [Zestril] 40 mg PO DAILY 09/29/18 04/16/19 [place]-3 Fatty Acids [[place]-3] 2,000 mg PO QAM 09/29/18 04/16/19 Vitamin B Complex 1 cap PO DAILY 09/29/18 04/16/19 rOPINIRole HCL [Requip] 1 mg PO QID 09/29/18 04/16/19 Dicyclomine [Bentyl] 10 mg PO DAILY 04/16/19 04/16/19 Furosemide [Lasix] 20 mg PO DAILY 04/16/19 04/16/19 Potassium Chlor 20meq Packet 1 packet PO DAILY 04/16/19 04/16/19 Previous Rx's Medication Instructions Recorded Sucralfate [Carafate] 1 gm PO QID #120 tablet 03/04/15 Montelukast Sodium [Singulair] 10 mg PO HS #30 tab 10/25/15 Nitroglycerin Sl Tabs [Nitrostat] 0.4 mg SUBLINGUAL Q5M PRN #0 tab 09/24/16 Isosorbide Mononitrate ER [Imdur] 60 mg PO DAILY #30 tab.er.24h 11/17/18 Aspirin 81 mg PO DAILY chew 04/17/19 Ranolazine [Ranexa] 500 mg PO Q12HR #60 tab.er.12h 04/17/19 amLODIPine [Norvasc] 10 mg PO QAM #30 tab 04/17/19 Allergies Allergy/AdvReac Type Severity Reaction Status Date / Time adhesive tape Allergy bruises,"paper Verified 04/16/19 07:55 tape is ok" albuterol AdvReac Rapid Verified 04/16/19 07:55 Heart Rate stress test injection Allergy Anaphylaxis Uncoded 04/16/19 05:26 sun dried tomatoes Allergy lip Uncoded 04/16/19 05:26 swelling Review of Systems ROS Statement: Those systems with pertinent positive or pertinent negative responses have been documented in the HPI. ROS Other: All systems not noted in ROS Statement are negative. Constitutional: Denies: fever, chills Respiratory: Reports: dyspnea. Denies: cough, wheezes Cardiovascular: Reports: chest pain, orthopnea. Denies: palpitations, dyspnea on exertion, edema, syncope Gastrointestinal: Denies: abdominal pain, nausea, vomiting, diarrhea Musculoskeletal: Denies: back pain Skin: Denies: rash Neurological: Denies: headache, weakness, numbness Past Medical History Past Medical History: Asthma, COPD, Diabetes Mellitus, Myocardial Infarction ([place]), Osteoarthritis ([place]), Pneumonia, Sleep Apnea/CPAP/BIPAP Additional Past Medical History / Comment(s): hx NEUROPATHY FEET, [place] x 2, hx migraines, restless leg syndrome, see Dr Mccullough H&P, no cpap used, uses oxygen 2L at night, diarrhea, Last Myocardial Infarction Date:: 2017 History of Any Multi-Drug Resistant Organisms: None Reported Past Surgical History: Appendectomy, Breast Surgery, Cholecystectomy, Heart Catheterization With Stent Additional Past Surgical History / Comment(s): left breast biopsy, Heart cath with stents x5 , thoracotomy R lung, Past Anesthesia/Blood Transfusion Reactions: No Reported Reaction Additional Past Anesthesia/Blood Transfusion Reaction / Comment(s): severe claustrophobia Date of Last Stent Placement:: 11/30/2017 Past Psychological History: No Psychological Hx Reported Smoking Status: Former smoker Past Alcohol Use History: None Reported Past Drug Use History: None Reported - Past Family History Brother(s) Family Medical History: Cancer Father Additional Family Medical History / Comment(s): Father of a [place] at the age of 77yrs. Mother Family Medical History: Cancer Additional Family Medical History / Comment(s): Mother of a [place] at the age of 74yrs. General Exam Limitations: no limitations General appearance: alert, in no apparent distress Head exam: Present: atraumatic, normocephalic Eye exam: Present: normal appearance. Absent: scleral icterus, conjunctival injection Respiratory exam: Present: rales (Bilateral bases). Absent: respiratory distress, wheezes, rhonchi, stridor, accessory muscle use, decreased breath so unds, prolonged expiratory Cardiovascular Exam: Present: regular rate, normal rhythm, normal heart sounds. Absent: systolic murmur, diastolic murmur, rubs, gallop GI/Abdominal exam: Present: soft. Absent: distended, tenderness, guarding, rebound, rigid Extremities exam: Present: normal inspection, normal capillary refill, pedal edema (Mild edema to above the ankle bilaterally). Absent: calf tenderness Neurological exam: Present: alert Skin exam: Present: warm, dry, intact, normal color. Absent: rash Course Vital Signs 12/01/19 12/01/19 12/01/19 05:22 05:44 06:50 Temperature 98.5 F 98.4 F Pulse Rate 85 70 Pulse Rate [ Pulse Oximetery ] Respiratory 28 H 18 18 Rate Blood Pressure 180/67 152/53 Blood Pressure [Left Arm] O2 Sat by Pulse 92 L 98 Oximetry 04/16/19 04/16/19 07:15 07:28 Temperature 98.5 F Pulse Rate 70 Pulse Rate [ 82 Pulse Oximetery ] Respiratory 118 H 20 Rate Blood Pressure 150/64 Blood Pressure 222/86 [Left Arm] O2 Sat by Pulse 97 92 L Oximetry Disposition Clinical Impression: Chest pain Disposition: ADMITTED IP TO THIS HOSP Condition: Fair Is patient prescribed a controlled substance at d/c from ED?: No
[2019-04-16 06:02] LABS: Albumin 4.1 g/dL (3.5-5.0); Calcium 9.5 mg/dL (8.4-10.2); Magnesium 1.6 mg/dL (1.6-2.3); Potassium 4.5 mmol/L (3.5-5.1); Total Bilirubin 0.4 mg/dL (0.2-1.3); Total Protein 7.1 g/dL (6.3-8.2)
--- NOTE | 2019-04-16 06:15 | XR ---
EXAM: XR Chest, 2 Views CLINICAL HISTORY: Chest pain. TECHNIQUE: Frontal and lateral views of the chest. COMPARISON: 11/16/2018. FINDINGS: Lungs: Unremarkable. No consolidation. Pleural space: Unremarkable. No pneumothorax. Heart: Mild cardiomegaly. Mediastinum: Unremarkable. Bones/joints: Osteopenia. Upper abdomen: There is minimal elevation of the right hemidiaphragm, unchanged. Other findings: There is hypoaeration. Minimal blunting of the right CP angle, unchanged. IMPRESSION: Hypoaeration. Mild cardiomegaly. Blunting of the right CP angle. Osteopenia. These findings are stable and unchanged from 11/16/2018.
[2019-04-16 06:32] LABS: INR 0.8 (<1.2); Partial Thromboplastin Time 23.6 sec (22.0-30.0); Prothrombin Time 9.4 sec (9.0-12.0)
[2019-04-16] MEDS ORDERED: NITROGLYCERIN SL TABS 0.4 MG TAB SUBLINGUAL PRN (06:53)
[2019-04-16] MEDS ORDERED: ALBUTEROL NEBULIZED 2.5 MG/3 ML INHALATION SCH (08:00)
[2019-04-16] MEDS ORDERED: SYMBICORT 80-4.5 MCG INHALER INHALATION SCH (08:00)
[2019-04-16] MEDS: ISOSORBIDE MONONITRATE ER 60 MG TAB.ER.24H PO SCH (08:30)
[2019-04-16] MEDS: METOPROLOL TARTRATE 50 MG TAB PO SCH ×2 (08:30→20:18)
[2019-04-16] MEDS: CHOLECALCIFEROL 1,000 UNIT TAB PO SCH (08:30)
[2019-04-16] MEDS: CLOPIDOGREL 75 MG TAB PO SCH (08:30)
[2019-04-16] MEDS: DICYCLOMINE 10 MG CAP PO SCH (08:30)
[2019-04-16] MEDS: amLODIPine 10 MG TAB PO SCH (08:30)
[2019-04-16] MEDS: METOCLOPRAMIDE 10 MG TAB PO SCH ×4 (08:30→20:18)
[2019-04-16] MEDS: SUCRALFATE 1 GM TAB PO SCH ×4 (08:30→20:18)
[2019-04-16] MEDS: LISINOPRIL 20 MG TAB PO SCH (08:30)
[2019-04-16 08:56] LABS: Glucose,Whole Blood 187 mg/dL (75-99)
[2019-04-16] MEDS ORDERED: FAMOTIDINE 20 MG TAB PO SCH (09:00)
[2019-04-16] MEDS ORDERED: HYDROcodone/APAP 7.5-325MG 1 EACH TAB PO SCH (09:00)
[2019-04-16] MEDS: metFORMIN 500 MG TAB PO SCH ×2 (10:40→17:25)
[2019-04-16] MEDS: REPAGLINIDE 1 MG TAB PO SCH (10:40)
[2019-04-16] MEDS: IPRATROPIUM 0.5 MG/2.5 ML NEBU INHALATION SCH ×2 (10:48→11:13)
[2019-04-16 11:55] LABS: Glucose,Whole Blood 263 mg/dL (75-99)
[2019-04-16] MEDS ORDERED: POTASSIUM CHLORIDE ER 20 MEQ TAB.ER PO SCH ×2 (14:00→14:09)
[2019-04-16] MEDS: ACETAMINOPHEN TAB 325 MG TAB PO PRN (14:48)
[2019-04-16] MEDS: FUROSEMIDE 20 MG TAB PO SCH (15:41)
[2019-04-16] MEDS: HYDROcodone/APAP 7.5-325MG 1 EACH TAB PO SCH ×2 (15:42→22:43)
[2019-04-16] MEDS: [UNRECOGNIZED DRUG - OTHER] INHALATION SCH (15:54)
[2019-04-16] MEDS: POTASSIUM CHLORIDE 20 MEQ PO SCH (15:54)
[2019-04-16] MEDS: TRELEGY ELLIPTA INHALATION SCH (15:54)
[2019-04-16 16:55] LABS: Glucose,Whole Blood 166 mg/dL (75-99)
[2019-04-16] MEDS: INSULIN ASPART (NovoLOG) 100 UNIT/ML VIAL SQ SCH ×2 (17:24→20:37)
[2019-04-16] MEDS: INSULN ASP PRT/INSULIN ASPART 100 UNIT/ML 10 ML VIAL SQ SCH (17:24)
[2019-04-16 20:35] LABS: Glucose,Whole Blood 145 mg/dL (75-99)
[2019-04-16] MEDS ORDERED: MELATONIN 5 MG TABLET PO SCH (21:00)
[2019-04-16] MEDS ORDERED: ATORVASTATIN 10 MG TAB PO SCH (21:00)
[2019-04-16] MEDS ORDERED: MONTELUKAST 10 MG TAB PO SCH (21:00)
[2019-04-16 23:06] LABS: Cholesterol 127 mg/dL (<200); HDL Cholesterol 46 mg/dL (40-60); LDL Cholesterol,Calculated 39 mg/dL (0-99); Triglycerides 211 mg/dL (<150)
--- NOTE | 2019-04-17 01:35 | HP ---
HISTORY AND PHYSICAL CHIEF COMPLAINT: A 73-year-old white female admitted with substernal chest discomfort, taking 3-4 nitroglycerin a day. Woke up in the middle of the night with severe chest pain despite wearing her CPAP machine at night. The chest pain has been recurrent exertional and worse over the past few weeks. Substernal chest pressure, moderate severity, heaviness with exertion; nitroglycerin off. HOME MEDICATIONS: See list. ALLERGIES: See list. REVIEW OF SYSTEMS: Fourteen-point review of systems negative except for mentioned in HPI. PAST MEDICAL HISTORY: Asthma, COPD, diabetes mellitus, myocardial infarction, osteoarthritis, pneumonia, sleep apnea, CPAP, neuropathy, migraines, restless legs syndrome. SURGERIES: Appendectomy, breast surgery, cholecystectomy, heart catheterization with stent, left breast biopsy, heart catheterization, stent x5, thoracic right lung thoracotomy in the right lung. SOCIAL HISTORY: Former smoker, she gained a lot of weight, a lot of swelling of the legs recently; increased her Lasix due to significant swelling in her legs. FAMILY HISTORY: Brother with cancer. Father myocardial infarction in his 70s. Mother cancer in her 70s. HEENT normocephalic atraumatic. BMI is over 40. PSYCH: Alert and oriented x3. VASCULAR: Normal dorsalis pedis, posterior tibial and radial pulse 2+ pedal edema, bilaterally. CARDIOVASCULAR: Regular rate and rhythm. LUNGS: How wheezes, rhonchi, decreased breath sounds. GI soft, nontender. NEUROLOGIC: Alert and oriented x3. SKIN: Warm, dry, intact. Temp 98.5, pulse 80 to 85, respiratory rate 18 to 28, blood pressure 188/67, O2 92% on room air. ASSESSMENT: 1. Atypical chest pain. Unstable angina. 2. History of coronary disease with stents. Heart catheterization will be done tomorrow. Continue on current med. Please see further orders. MMODL / IJN: [id number] /
[2019-04-17] MEDS: metFORMIN 500 MG TAB PO SCH ×2 (04:35→17:19)
[2019-04-17] MEDS: HYDROcodone/APAP 7.5-325MG 1 EACH TAB PO SCH ×2 (06:10→13:30)
[2019-04-17 06:15] LABS: Glucose,Whole Blood 158 mg/dL (75-99)
[2019-04-17] MEDS: INSULIN ASPART (NovoLOG) 100 UNIT/ML VIAL SQ SCH ×3 (06:22→17:21)
[2019-04-17] MEDS: [UNRECOGNIZED DRUG - OTHER] INHALATION SCH (07:29)
[2019-04-17] MEDS: TRELEGY ELLIPTA INHALATION SCH (07:29)
[2019-04-17] MEDS ORDERED: ASPIRIN 325 MG TAB PO SCH ×2 (09:00)
[2019-04-17] MEDS ORDERED: FAMOTIDINE 20 MG TAB PO SCH (09:00)
[2019-04-17] MEDS ORDERED: TRELEGY ELLIPTA INHALATION SCH (09:00)
[2019-04-17] MEDS ORDERED: CAFFEINE CITRATE 60 MG/3 ML VIAL IV PRN (09:54)
[2019-04-17] MEDS ORDERED: AMINOPHYLLINE 500 MG/20 ML VIAL IV PRN (09:54)
[2019-04-17] MEDS ORDERED: RANOLAZINE 500 MG TAB.ER.12H PO SCH (10:00)
[2019-04-17] MEDS ORDERED: DIPYRIDAMOLE 70 MG in SODIUM CHLORIDE 0.9% 50 ML IV ONE (10:00)
--- NOTE | 2019-04-17 10:49 | PN ---
PROGRESS NOTE Mrs. Brand is a 73-year-old female with known history of coronary artery disease, hypertension, hyperlipidemia, diabetes mellitus, who presented with symptoms of chest discomfort. She has underwent cardiac catheterization by Dr. Mccullough in September, was found to have a patent stent with obstructive disease in a small diagonal branch that has been chronic. She continues to have episodes of chest discomfort on and off with no enzymatic or electrocardiographic changes. Her breathing is stable. She has occasional palpitation. Continues to be on amlodipine 10 mg daily, aspirin once a day, Lipitor 10 mg daily, Plavix 75 mg daily, furosemide 20 mg daily, isosorbide mononitrate 60 mg daily, lisinopril 40 mg daily, metformin 1 gram twice a day, metoprolol tartrate 50 mg twice a day. PHYSICAL EXAMINATION: Blood pressure running in the 130s with a heart rate in the 60s. LUNGS: Clear. HEART: Regular rate and rhythm, S1, S2. No S3 with systolic ejection murmur, no diastolic murmur. ABDOMEN: Soft, nontender. EXTREMITIES: No edema. LAB DATA: Revealed troponin less than 0.012. BUN and creatinine 31 and 1.17, potassium of 4.5. LDL is 127. IMPRESSION: 1. Chest discomfort of unclear etiology. Patient had a cardiac catheterization in September and revealed no progression of disease. There is no enzymatic or electrocardiographic changes. 2. History of coronary artery disease with multiple stenting, patent. 3. Hypertension. 4. Hyperlipidemia. 5. Diabetes mellitus. RECOMMENDATION: I have added to her regimen Ranexa 500 mg twice a day. I will increase the dose of her statin. I would recommend to proceed with a myocardial perfusion imaging to have to assess her cardiac perfusion and depending on that, further recommendation will be made. The rationale behind the procedure as well as the plan were discussed with the patient. She is in full understanding and agreement. MMODL / IJN: [id number] /
[2019-04-17] MEDS: INSULN ASP PRT/INSULIN ASPART 100 UNIT/ML 10 ML VIAL SQ SCH ×2 (11:39→17:21)
[2019-04-17] MEDS: SUCRALFATE 1 GM TAB PO SCH ×3 (11:53→17:20)
[2019-04-17] MEDS: METOCLOPRAMIDE 10 MG TAB PO SCH ×3 (11:53→17:20)
[2019-04-17] MEDS: DICYCLOMINE 10 MG CAP PO SCH (11:53)
[2019-04-17] MEDS: FUROSEMIDE 20 MG TAB PO SCH (11:53)
[2019-04-17] MEDS: METOPROLOL TARTRATE 50 MG TAB PO SCH (11:53)
[2019-04-17] MEDS: ISOSORBIDE MONONITRATE ER 60 MG TAB.ER.24H PO SCH (11:53)
[2019-04-17] MEDS: CHOLECALCIFEROL 1,000 UNIT TAB PO SCH (11:54)
[2019-04-17] MEDS: REPAGLINIDE 1 MG TAB PO SCH (11:54)
[2019-04-17] MEDS: amLODIPine 10 MG TAB PO SCH (11:54)
[2019-04-17] MEDS: ACETAMINOPHEN TAB 325 MG TAB PO PRN (11:54)
[2019-04-17] MEDS: LISINOPRIL 20 MG TAB PO SCH (11:54)
[2019-04-17] MEDS: CLOPIDOGREL 75 MG TAB PO SCH (11:54)
[2019-04-17] MEDS: POTASSIUM CHLORIDE 20 MEQ PO SCH (11:55)
[2019-04-17 11:56] LABS: Glucose,Whole Blood 138 mg/dL (75-99)
--- NOTE | 2019-04-17 15:34 | NM ---
EXAMINATION TYPE: NM myocardial SPECT single DATE OF EXAM: 04/17/2019 COMPARISON: Prior stress test November 29, 2017 HISTORY: Chest pain and difficulty breathing.. History of hypertension and diabetes as well as three- vessel angioplasty. History of COPD and asthma and family history of heart attack. Following administration of 9.72 mCi Tc 99m Sestamibi. Images obtained 55 minutes post injection. FINDINGS: Some nonspecific diminished uptake rest images anterolateral wall near apex. Patient refuse d stress imaging to further evaluate this level. Calculated ejection fraction is 46% on current study. IMPRESSION: As above. Incomplete/nondiagnostic study.
[2019-04-17 16:17] VITALS: BP 171/70; PULSE 63; RESP 16; TEMP 98.6
[2019-04-17 17:12] LABS: Glucose,Whole Blood 185 mg/dL (75-99)
[2019-04-17] MEDS ORDERED: ATORVASTATIN 40 MG TAB PO SCH (21:00)
[2019-04-18] MEDS ORDERED: ASPIRIN 81 MG PO SCH (09:00)
--- NOTE | 2019-04-21 10:36 | DS ---
DISCHARGE SUMMARY DATE OF ADMISSION: 04/16/2019. DATE OF DISCHARGE: 04/17/2019. DISCHARGE MEDICATIONS: 1. Zocor 20 mg daily. 2. Carafate 1 g q.i.d. 3. Plavix 75 mg daily. 4. Metformin 1000 b.i.d. 5. Singulair 10 daily. 6. Nitrostat sublingual p.r.n. 7. Aspirin 325 daily. 8. Lopressor 50 b.i.d. 9. Reglan 10 mg q.i.d. 10.Melatonin 5 daily. 11.Ranitidine 300 daily. 12.Insulin nebulizer 70/30. 13.FlexPen 30 units subcu b.i.d. 14.[place] 7.5 q.i.d. 15.Trelegy Ellipta 100/2.5 twenty-five one daily. 16.Zestril 40 mg daily. 17.[place]-3 fatty acids 2000 mg q.a.m. 18.Requip 1 mg q.i.d.. 19.Imdur 60 mg daily. 20.Lasix 20 mg daily. 21.Bentyl 10 mg daily. 22.Potassium chloride 20 mEq packet daily. 23.Norvasc 5 mg daily. 24.Aspirin 81 mg daily. 25.Norvasc 10 mg daily. 26.Ranexa 500 mg b.i.d. CONDITION: Stable. PROGNOSIS: Guarded. Ambulate as tolerated. A 73-year-old white white female came in to the hospital with atypical chest pain, unstable angina. Cardiology saw her, did some kind of SPECT scan, inflammatory process Nuclear medicine test which is a myocardial SPECT test. It is an incomplete study as patient refused imaging with dye due to allergies at which time Dr. Hernandez, Filler Picker cleared her for discharge to follow up as an outpatient. There is no enzymatic increase for cardiac enzymes or EKG changes. He added Ranexa 500 b.i.d. to her regimen. Increased her statins and follow up as an outpatient. MMODL / IJN: [id number] /
[2019-04-22] MEDS ORDERED: NON FORMULARY DRUG (Dulaglutide [Trulicity] 0.75 MG) SQ SCH (09:00)
== END 2019-04-17 18:07 | disposition home or self-care (01) ==
LOC: EC 05:14 → 3SCARD 06:53
PROVIDERS: ADMIT Family Medicine; ATTEND Family Medicine
DX: I20.0 Unstable angina (principal); I10 Essential (primary) hypertension; Z87.891 Personal history of nicotine dependence; R06.00 Dyspnea, unspecified; R60.0 Localized edema; J44.9 Chronic obstructive pulmonary disease, unspecified; E11.42 Type 2 diabetes mellitus with diabetic polyneuropathy; Z79.4 Long term (current) use of insulin; M19.90 Unspecified osteoarthritis, unspecified site; G47.30 Sleep apnea, unspecified; Z99.89 Dependence on other enabling machines and devices; Z87.01 Personal history of pneumonia (recurrent); G43.909 Migraine, unspecified, not intractable, without status migrainosus; G25.81 Restless legs syndrome; F40.240 Claustrophobia; Z90.49 Acquired absence of other specified parts of digestive tract; Z95.5 Presence of coronary angioplasty implant and graft; E78.5 Hyperlipidemia, unspecified; Z82.49 Family history of ischemic heart disease and other diseases of the circulatory system; Z80.9 Family history of malignant neoplasm, unspecified; Z79.02 Long term (current) use of antithrombotics/antiplatelets; Z79.82 Long term (current) use of aspirin; Z79.891 Long term (current) use of opiate analgesic; Z99.81 Dependence on supplemental oxygen; Z79.51 Long term (current) use of inhaled steroids; Z79.899 Other long term (current) drug therapy; Z88.8 Allergy status to other drugs, medicaments and biological substances; Z91.018 Allergy to other foods; Z91.09 Other allergy status, other than to drugs and biological substances
CPT/HCPCS: 93005 ×2; 99285; 36415; 94640; 94760 ×2; 83880; 80061; 80053; 83735; 84484; 85025; 85610; 85730; 81001; 71046; 78451; G0378 ×2; A9500

== ENCOUNTER 2019-06-13 10:25 | Inpatient (IN) | payer MEDICARE, OTHER ==
[2019-06-13] MEDS ORDERED: NITROGLYCERIN SL TABS 0.4 MG TAB SUBLINGUAL PRN (13:09)
[2019-06-13] MEDS ORDERED: METOCLOPRAMIDE 10 MG TAB PO PRN (13:09)
[2019-06-13] MEDS ORDERED: RANOLAZINE 500 MG TAB.ER.12H PO SCH (13:15)
[2019-06-13 13:50] LABS: Anisocytosis Slight; HCT 37.1 % (34.0-46.0); HGB 11.5 gm/dL (11.4-16.0); Hypochromasia Slight; MCH 23.6 pg (25.0-35.0); MCHC 31.1 g/dL (31.0-37.0); Microcytosis Slight; Platelet Count 362 k/uL (150-450); RBC 4.89 m/uL (3.80-5.40); RDW 16.6 % (11.5-15.5); WBC 14.3 k/uL (3.8-10.6)
[2019-06-13 13:59] LABS: Calcium 9.4 mg/dL (8.4-10.2)
[2019-06-13 14:35] LABS: Potassium 6.2 mmol/L (3.5-5.1)
[2019-06-13] MEDS: SODIUM CHLORIDE 0.9% 1,000 ML IV SCH (14:55)
[2019-06-13] MEDS ORDERED: PIPERACILLIN-TAZOBACTAM 3.375 GM in SODIUM CHLORIDE 0.9% 100 ML IVPB SCH (16:00)
[2019-06-13 16:41] LABS: Glucose,Whole Blood 106 mg/dL (75-99)
[2019-06-13] MEDS: SUCRALFATE 1 GM TAB PO SCH ×2 (17:16→21:01)
[2019-06-13] MEDS: FUROSEMIDE 40 MG TAB PO SCH (17:16)
[2019-06-13] MEDS: metFORMIN 500 MG TAB PO SCH (17:17)
[2019-06-13] MEDS: INSULIN ASPART (NovoLOG) 100 UNIT/ML VIAL SQ SCH ×2 (17:18→21:04)
[2019-06-13] MEDS: INSULN ASP PRT/INSULIN ASPART 100 UNIT/ML 10 ML VIAL SQ SCH (17:22)
[2019-06-13 18:47] LABS: Amorphous Sediment,Urine Rare /hpf; Appearance,Urine Clear (Clear); Bacteria,Urine Many /hpf; Bilirubin,Urine Negative (Negative); Blood,Urine Negative (Negative); Color,Urine Yellow; Glucose,Urine (UA) Negative (Negative); Ketones,Urine Negative (Negative); Leukocyte Esterase,Urine Small (Negative); Mucus,Urine Rare /hpf; Nitrite,Urine Positive (Negative); PH, Urine 5.5 (5.0-8.0); Protein,Urine Negative (Negative); RBC,Urine <1 /hpf (0-5); Specific Gravity,Urine 1.011 (1.001-1.035); Squamous Epithelial Cell,Urine 1 /hpf (0-4); Urobilinogen,Urine <2.0 mg/dL (<2.0); WBC,Urine 5 /hpf (0-5)
[2019-06-13 20:15] LABS: Glucose,Whole Blood 87 mg/dL (75-99)
[2019-06-13] MEDS: MELATONIN 5 MG TABLET PO SCH (20:50)
[2019-06-13] MEDS: METOPROLOL TARTRATE 50 MG TAB PO SCH (20:50)
[2019-06-13] MEDS: ATORVASTATIN 10 MG TAB PO SCH (20:50)
[2019-06-13] MEDS: RANOLAZINE 500 MG TAB.ER.12H PO SCH (20:51)
[2019-06-13] MEDS: MONTELUKAST 10 MG TAB PO SCH (20:51)
[2019-06-13] MEDS: HYDROcodone/APAP 7.5-325MG 1 EACH TAB PO PRN (20:57)
[2019-06-13] MEDS ORDERED: SULFAMETHOX-TMP 800-160MG 1 EACH TAB PO SCH (21:00)
[2019-06-13] MEDS: AMPICILLIN-SULBACTAM 3 GM in SODIUM CHLORIDE 0.9% 100 ML IVPB SCH (23:25)
[2019-06-14 02:20] LABS: Hemoglobin A1C 7.1 % (4.0-6.0)
[2019-06-14 06:45] LABS: Glucose,Whole Blood 105 mg/dL (75-99)
--- NOTE | 2019-06-14 07:57 | CONS ---
CONSULTATION DATE OF SERVICE: 06/13/2019 REASON FOR CONSULTATION: Bilateral diabetic foot wound and cellulitis. HISTORY OF PRESENT ILLNESS: The patient is a 73-year-old female, past medical history significant for diabetes mellitus. The patient has developed a callus on bilateral feet, on the right foot at the base of the first metatarsal head and left more on the medial side of the big toe. The patient had these for a while. Apparently the patient tried to open and cut her left foot callus that had led to superficial ulceration. However, she mentioned that the right foot callus has opened by itself with evidence of ulceration. She has been treated in the outpatient setting with antibiotic and local wound care with Silvadene. However, the patient did have persistent bleeding from it. The patient's primary care physician was called and who advised the patient to go to the hospital for admission. She has been admitted to the observation unit. Infectious Disease had been consulted for further recommendations. The patient did have underlying diabetic neuropathy and hence denies pain to the bilateral foot ulceration area. She did have some blood-stained drainage with minimal surrounding swelling and redness, but no foul smelling drainage. Denies high-grade fever. The patient on admission to the hospital had elevated white count at 14.3. She was started on Zosyn. Infectious Disease was consulted for further recommendations regarding antibiotic. REVIEW OF SYSTEMS: Positive points have been mentioned in HPI. Rest of systems negative. PAST MEDICAL HISTORY: Diabetes mellitus, osteoarthritis, [place], asthma, pneumonia, sleep apnea. PAST SURGICAL HISTORY: Appendectomy, cholecystectomy, heart catheterization with stent, left breast biopsy. SOCIAL HISTORY: Remote history of smoking. No drinking or drug use. FAMILY HISTORY: No pertinent findings noticed. ALLERGIES: ALBUTEROL and SUN-DRIED TOMATO. MEDICATIONS: Medications include the patient is currently on Bactrim DS, Carafate, saline, Requip, Ranexa, Zosyn, Trulicity, Nitrostat, Singulair, Lopressor, Reglan, Glucophage, melatonin, Zestril, Imdur, NovoLog, Lasix, Pepcid, Bentyl, Lipitor, aspirin, Norvasc, and [place]. PHYSICAL EXAMINATION: Blood pressure 125/67 with pulse of 76, temperature 97.2. She is 92% on room air. General description is an elderly female lying in bed in no distress. No tachypnea or accessory muscle of respiration use. HEENT: Examination shows no pallor or scleral icterus. Oral mucous membranes dry. No pharyngeal erythema or thrush. NECK: Trachea central. No thyromegaly. LUNGS: Unlabored breathing, clear to auscultation anteriorly. No wheeze or crackle. HEART: S1, S2. Regular rate and rhythm. No added sounds. ABDOMEN: Soft, no tenderness. EXTREMITIES: No edema of the feet. Examination of right foot plantar wound with surrounding callus. The wound base is clean. Minimal surrounding redness, slightly warm. No purulent drainage. Left medial foot callus, no open wound, significant swelling, redness or any drainage. LABS: Hemoglobin is 11.5, white count 14.3. BUN of 44, creatinine is 1.71. Wound cultures obtained currently pending. DIAGNOSTIC IMPRESSION AND PLAN: Patient with bilateral diabetic foot wound with secondary cellulitis likely secondary to a gram-positive skin myesha, infection not entirely excluded, currently with no evidence of any deep infection clinically. PLAN: 1. Discontinue Zosyn and Bactrim DS. 2. Start the patient on Unasyn 3 grams q.6 hours. 3. Local wound care with dry Aquacel silver dressing and Kerlix. Keep the area off the pressure. 4. We will follow her clinical condition and culture to further adjust medication if needed. Thank you for this consultation. Will follow this patient along with you. MMODL / IJN: [id number] /
[2019-06-14] MEDS: SYMBICORT 80-4.5 MCG INHALER INHALATION SCH ×2 (08:12→19:42)
[2019-06-14] MEDS: IPRATROPIUM 0.5 MG/2.5 ML NEBU INHALATION SCH ×4 (08:12→19:42)
[2019-06-14] MEDS: INSULIN ASPART (NovoLOG) 100 UNIT/ML VIAL SQ SCH ×4 (08:21→21:26)
[2019-06-14] MEDS: AMPICILLIN-SULBACTAM 3 GM in SODIUM CHLORIDE 0.9% 100 ML IVPB SCH ×4 (08:33→23:38)
[2019-06-14] MEDS: INSULN ASP PRT/INSULIN ASPART 100 UNIT/ML 10 ML VIAL SQ SCH ×2 (08:33→17:12)
[2019-06-14] MEDS: SUCRALFATE 1 GM TAB PO SCH ×4 (08:35→21:24)
[2019-06-14] MEDS: ASPIRIN 81 MG PO SCH (08:36)
[2019-06-14] MEDS: RANOLAZINE 500 MG TAB.ER.12H PO SCH ×2 (08:36→20:18)
[2019-06-14] MEDS: FUROSEMIDE 40 MG TAB PO SCH ×2 (08:36→16:27)
[2019-06-14] MEDS: metFORMIN 500 MG TAB PO SCH ×2 (08:36→17:12)
[2019-06-14] MEDS: CHOLECALCIFEROL 1,000 UNIT TAB PO SCH (08:36)
[2019-06-14] MEDS: amLODIPine 10 MG TAB PO SCH (08:36)
[2019-06-14] MEDS: CLOPIDOGREL 75 MG TAB PO SCH (08:36)
[2019-06-14] MEDS: HYDROcodone/APAP 7.5-325MG 1 EACH TAB PO PRN ×3 (08:37→21:47)
[2019-06-14] MEDS: METOPROLOL TARTRATE 50 MG TAB PO SCH ×2 (08:37→20:18)
[2019-06-14] MEDS: ISOSORBIDE MONONITRATE ER 60 MG TAB.ER.24H PO SCH (08:37)
[2019-06-14] MEDS: DICYCLOMINE 10 MG CAP PO SCH (08:37)
[2019-06-14] MEDS: SODIUM CHLORIDE 0.9% 1,000 ML IV SCH ×2 (08:38→12:17)
[2019-06-14] MEDS: FAMOTIDINE 20 MG TAB PO SCH (08:48)
[2019-06-14] MEDS ORDERED: FATTY ACIDS PO SCH (09:00)
[2019-06-14] MEDS ORDERED: LISINOPRIL 20 MG TAB PO SCH (09:00)
[2019-06-14] MEDS ORDERED: POTASSIUM CHLORIDE ER 20 MEQ TAB.ER PO SCH (09:00)
[2019-06-14] MEDS ORDERED: NON FORMULARY DRUG (Vitamin B Complex [Vitamin B Complex] 1 CAP) PO SCH (09:00)
[2019-06-14] MEDS ORDERED: OMEGA PO SCH (09:00)
[2019-06-14 11:41] LABS: Glucose,Whole Blood 123 mg/dL (75-99)
--- NOTE | 2019-06-14 12:28 | CONS ---
CONSULTATION REASON FOR CONSULT: Renal failure, hyperkalemia. HISTORY OF PRESENT ILLNESS: Patient is a 73-year-old female who was admitted to the hospital with complaints of drainage from her wounds in the feet mainly on the right foot and as well as the left big toe. Patient states that she initially had a vesicle which she popped at home and then had significant bleeding from it as well. She denied any fever, chills, nausea, vomiting, abdominal pain. There is no history of any prior kidney issues. Patient denied any previous history of high potassium. However, she states that her potassium had been low and her primary care physician had prescribed potassium supplementation about 2-3 weeks ago. Patient denied use of any nonsteroidal anti-inflammatory agents prior. Serum potassium was 6.2 it and it is down to 5.3 this morning. Creatinine was 1.7 and review of previous labs shows a serum creatinine of 0.78 on 11/17/2018 and 1.17 on 04/16/2019. Patient was maintained on PAPI inhibitors at home. PAST MEDICAL HISTORY: Diabetes, hypertension, history of obstructive sleep apnea, osteoarthritis, coronary artery disease, history of [place]. PAST SURGICAL HISTORY: Appendectomy, cholecystectomy, cardiac catheterization, coronary stent placement, left breast biopsy. SOCIAL HISTORY: No history of smoking, drug abuse or alcohol abuse. There is a remote history of smoking. FAMILY HISTORY: Noncontributory. REVIEW OF SYSTEMS: As per HPI. Other systems negative. MEDICATIONS: Prior to admission included Zocor, Nitrostat, Singulair, Reglan, melatonin, Trulicity, Bactrim, Lasix, potassium, metformin, Requip, vitamin B, Carafate, ranitidine, lisinopril, Lopressor, Imdur, [place], Bentyl, Plavix, Norvasc, vitamin D3, Ranexa, aspirin. PHYSICAL EXAMINATION: On examination, patient is comfortable, awake, alert, oriented x3, not in any acute distress. Blood pressure was 139/82, heart rate 72 per minute. She is afebrile. Examination of the heart S1, S2. Examination of the lungs, bilateral breath sounds are heard. Abdomen is soft, nontender, obese. Examination of the lower extremities shows both feet to be currently wrapped, no significant edema noted bilaterally. 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 Labs show sodium 129, potassium 6.2, chloride 97, CO2 is 19, BUN 44, creatinine 1.7. UA shows nitrite positive, WBCs 5, no protein. Hemoglobin 11.5, white cell count 14.3. ASSESSMENT: 1. Acute kidney injury associated with use of Bactrim as well as possible acute tubular necrosis and an element of intravascular volume depletion. Currently nonoliguric. We will repeat labs today. Maintain patient off PAPI inhibitors as well as Bactrim. Check ultrasound of the kidneys. UA does not show any proteinuria or hematuria. 2. Hyperkalemia associated with acute kidney injury, use of Bactrim and use of PAPI inhibitors prior to admission, currently improved. Maintain patient off PAPI inhibitors and Bactrim. 3. Hyponatremia, possibly hypovolemic. PLAN: 1. Maintain patient on IV fluids. Repeat labs today as well as in a.m. Discontinue potassium supplementation. DC lisinopril as well and hold off on Bactrim, repeat labs today and then again in a.m. Check ultrasound of the kidneys as well. 2. Wounds bilateral feet being followed by ID, maintained on antibiotics. 3. Hypertension. 4. History of hypokalemia, currently hyperkalemic. 5. Thank you for this consultation. Will continue to follow the patient with you during her hospitalization. MMODL / IJN: [id number] /
[2019-06-14 12:50] LABS: Calcium 9.2 mg/dL (8.4-10.2); Potassium 5.2 mmol/L (3.5-5.1)
--- NOTE | 2019-06-14 13:49 | US ---
EXAMINATION TYPE: US kidneys/renal and bladder DATE OF EXAM: 06/14/2019 COMPARISON: CT abdomen pelvis dated 02/26/2015 CLINICAL HISTORY: rf. Renal failure EXAM MEASUREMENTS: Right Kidney: 11.7 x 4.6 x 5.7 cm Left Kidney: 12.1 x 5.5 x 5.5 cm Large pt body habitus, difficult exam Right Kidney: Visualized portions appeared wnl Left Kidney: Visualized portions appeared wnl Bladder: Empty, pt just voided prior to exam There is no evidence for hydronephrosis at this point in time. No nephrolithiasis is seen. No keke s are identified. The urinary bladder is anechoic. Bilateral ureteral jets are seen. IMPRESSION: No hydronephrosis nor nephrolithiasis. No sonographic sequela of chronic medical renal di sease.
--- NOTE | 2019-06-14 14:29 | NM ---
EXAMINATION TYPE: NM bone 3 phase DATE OF EXAM: 06/14/2019 COMPARISON: NONE HISTORY: Osteomyelitis. Bilateral plantar decubitus ulceration. Triple phase bone scintigraphy was performed following the injection of 23.1 mCi Tc 99m MDP. Immedia te images and 6 hours post injection images acquired. FINDINGS: There is symmetric flow to the bilateral lower extremities. There is a nearly symmetric flow to the b ilateral lower extremity. Delayed images demonstrate multifocal uptake within the hindfeet and mid fe et and forefeet predominantly the first metatarsophalangeal joints of the forefeet. Additionally ther e is a punctate focus of radiotracer uptake of the plantar surface of the right calcaneus on the late ral delayed image. IMPRESSION: Overall symmetric and diffuse uptake on all 3 phases of the bilateral lower extremities is most sugge stive of degenerative change. There is a punctate focus of uptake of the right plantar surface of the calcaneal that could represent early osteomyelitis given the calcaneal plantar ulcer.
--- NOTE | 2019-06-14 15:34 | HP ---
HISTORY AND PHYSICAL A 73-year-old white female with diabetes mellitus who developed three open wounds on bilateral feet at the base of the first metatarsal heads bilaterally and on the top of the left anterior toes with increased swelling and redness. She was admitted to the hospital with cellulitis of the legs, rule out osteomyelitis. She was admitted and placed on IV antibiotics. White count was elevated at 14.3. Started on Zosyn. Consult with Infectious Disease. Bone scan was pending. A 14-point review of systems is negative except for mentioned in the HPI. PAST SURGICAL HISTORY: Appendectomy, cholecystectomy, heart catheterization with stent, left breast biopsy. SOCIAL HISTORY: No history of smoking. No drinking or drugs. ALLERGIES: ALBUTEROL AND TOMATOES. MEDICATIONS: 1. Bactrim DS. 2. Carafate. 3. Requip. 4. Ranexa. 5. Zosyn. 6. Trulicity. 7. Singulair. 8. Nitrostat. 9. Lopressor. 10.Reglan. 11.Glucophage. 12.Melatonin. 13.Zestril. 14.Imdur. 15.NovoLog. 16.Lipitor. 17.Norvasc. 18.Aspirin. 19.Pepcid. 20.[place]. PHYSICAL EXAMINATION: Blood pressure 120s over 60s, pulse 67, temperature 97.2, O2 92% on room air. ENDOCRINE: BMI is over 40. LUNGS: Scattered rhonchi and wheeze x4. HEART: S1, S2. NECK: No mass. ABDOMEN: Distended, obesity. EXTREMITIES: 2+ edema bilaterally. Stasis changes. She has open wounds on bilateral metatarsophalangeal joints of the great toes bilaterally and in the dorsum of the left anterior midfoot, which is slightly warm. Labs are reviewed with elevated white count. Cultures were taken. ASSESSMENT: Bilateral diabetic wound infections, cellulitis of the skin, rule out bone involvement with a bone scan. Continue with broad-spectrum IV antibiotics. Unasyn 3 grams q.6 hours through the IV has been ordered. Aquacel, silver, and Kerlix dressing changes. Await bone scan report. Please see further orders. Home medicines will be restarted. MMODL / IJN: [id number] /
[2019-06-14 16:37] LABS: Glucose,Whole Blood 97 mg/dL (75-99)
--- NOTE | 2019-06-14 17:40 | PN ---
PROGRESS NOTE DATE OF SERVICE: 06/14/2019 REASON FOR FOLLOWUP: Bilateral diabetic foot ulcers and cellulitis. INTERVAL HISTORY: The patient is currently afebrile. The patient is breathing comfortably. Pain to the bilateral foot plantar wound areas is currently controlled. Denies having any chest pain, shortness of breath or cough. No abdominal pain or diarrhea. PHYSICAL EXAMINATION: Blood pressure 137/68 with a pulse of 74, temperature is 97.7. She is 93% on room air. General description is an elderly female lying in bed in no distress. RESPIRATORY SYSTEM: Unlabored breathing. Clear to auscultation anteriorly. HEART: S1, S2. Regular rate and rhythm. ABDOMEN: Soft. No tenderness. Right foot plantar wound has no slough tissue, minimal drainage. Surrounding redness is improved. LABS: Wound culture currently pending. DIAGNOSTIC IMPRESSION AND PLAN: Patient with bilateral diabetic foot wounds with ulcers on the plantar aspects with secondary cellulitis. Cultures are currently pending. To continue with Unasyn, adjusting antibiotic further on the basis of culture report. Local care to continue with Aquacel Silver dressing and continue supportive care. MMODL / IJN: [id number] /
[2019-06-14] MEDS: ATORVASTATIN 10 MG TAB PO SCH (20:18)
[2019-06-14] MEDS: MELATONIN 5 MG TABLET PO SCH (20:18)
[2019-06-14] MEDS: MONTELUKAST 10 MG TAB PO SCH (20:18)
[2019-06-14 20:45] LABS: Glucose,Whole Blood 145 mg/dL (75-99)
[2019-06-15] MEDS: AMPICILLIN-SULBACTAM 3 GM in SODIUM CHLORIDE 0.9% 100 ML IVPB SCH ×4 (06:40→23:10)
[2019-06-15] MEDS: SODIUM CHLORIDE 0.9% 1,000 ML IV SCH (06:41)
[2019-06-15 06:45] LABS: Glucose,Whole Blood 110 mg/dL (75-99)
[2019-06-15] MEDS: SYMBICORT 80-4.5 MCG INHALER INHALATION SCH ×2 (08:06→19:30)
[2019-06-15] MEDS: IPRATROPIUM 0.5 MG/2.5 ML NEBU INHALATION SCH ×4 (08:06→19:30)
[2019-06-15] MEDS: INSULIN ASPART (NovoLOG) 100 UNIT/ML VIAL SQ SCH ×4 (09:17→20:12)
[2019-06-15] MEDS: INSULN ASP PRT/INSULIN ASPART 100 UNIT/ML 10 ML VIAL SQ SCH ×2 (09:24→17:23)
[2019-06-15] MEDS: SUCRALFATE 1 GM TAB PO SCH ×4 (09:25→20:12)
[2019-06-15] MEDS: CLOPIDOGREL 75 MG TAB PO SCH (09:25)
[2019-06-15] MEDS: FAMOTIDINE 20 MG TAB PO SCH (09:25)
[2019-06-15] MEDS: METOPROLOL TARTRATE 50 MG TAB PO SCH ×2 (09:25→20:11)
[2019-06-15] MEDS: CHOLECALCIFEROL 1,000 UNIT TAB PO SCH (09:25)
[2019-06-15] MEDS: ISOSORBIDE MONONITRATE ER 60 MG TAB.ER.24H PO SCH (09:25)
[2019-06-15] MEDS: RANOLAZINE 500 MG TAB.ER.12H PO SCH ×2 (09:25→20:11)
[2019-06-15] MEDS: FUROSEMIDE 40 MG TAB PO SCH ×2 (09:25→17:22)
[2019-06-15] MEDS: ASPIRIN 81 MG PO SCH (09:25)
[2019-06-15] MEDS: DICYCLOMINE 10 MG CAP PO SCH (09:25)
[2019-06-15] MEDS: amLODIPine 10 MG TAB PO SCH (09:25)
[2019-06-15] MEDS: metFORMIN 500 MG TAB PO SCH ×2 (09:26→17:22)
[2019-06-15] MEDS: HYDROcodone/APAP 7.5-325MG 1 EACH TAB PO PRN ×3 (09:35→23:09)
[2019-06-15 10:24] LABS: Calcium 9.1 mg/dL (8.4-10.2); Potassium 4.9 mmol/L (3.5-5.1)
[2019-06-15 11:42] LABS: Glucose,Whole Blood 91 mg/dL (75-99)
--- NOTE | 2019-06-15 12:23 | PN ---
PROGRESS NOTE Patient is seen for followup for acute kidney injury and hyperkalemia. She is currently maintained on IV fluids, renal function has improved. Patient is eating fairly well. I will discontinue the IV fluids. The potassium has improved as well. It is down to 4.9 from 6.2 on initial admission. PHYSICAL EXAMINATION: Patient is comfortable. Blood pressure is 137/75, heart rate 75 per minute, she is afebrile examination of the heart S1, S2. Examination of the lungs, bilateral breath sounds are heard. Abdomen is soft, non-tender. Examination of the lower extremities shows no significant edema. Both feet are currently wrapped. 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 LABS: Revealed sodium 133, potassium 4.9, chloride 97, BUN 33, creatinine 1.29. ASSESSMENT: 1. Acute kidney injury associated with use of Bactrim, some degree of volume depletion in the setting of use of PAPI inhibitors currently improved. 2. Hyperkalemia associated with acute kidney injury, use of Bactrim and PAPI inhibitors, now resolved. Continue with low-dose loop diuretics. Maintain patient on low-potassium diet. 3. Hypovolemic, hyponatremia now improved. PLAN: Discontinue IV fluids, may continue with low-dose loop diuretics to maintain normal kalemia. Repeat labs as outpatient. Follow up as outpatient for CKD. Follow up as outpatient as well. MMODL / IJN: [id number] /
[2019-06-15 16:53] LABS: Glucose,Whole Blood 103 mg/dL (75-99)
[2019-06-15 19:58] LABS: Glucose,Whole Blood 102 mg/dL (75-99)
[2019-06-15] MEDS: MONTELUKAST 10 MG TAB PO SCH (20:11)
[2019-06-15] MEDS: ATORVASTATIN 10 MG TAB PO SCH (20:11)
[2019-06-15] MEDS: MELATONIN 5 MG TABLET PO SCH (20:11)
--- NOTE | 2019-06-15 23:02 | PN ---
PROGRESS NOTE DATE OF SERVICE: 06/15/2019. REASON FOR FOLLOWUP: Bilateral diabetic foot wounds and cellulitis. INTERVAL HISTORY: The patient is currently afebrile. The patient has been breathing comfortably. Denies having any chest pain or any cough. No nausea, vomiting, abdominal pain or pain to the bilateral foot areas. PHYSICAL EXAMINATION: Blood pressure 135/71 with a pulse of 79, temperature 98. She is 98% on room air. General description is an elderly female lying in bed in no distress. RESPIRATORY SYSTEM: Unlabored breathing. Clear to auscultation anteriorly. HEART: S1, S2. Regular rate and rhythm. ABDOMEN: Soft. No tenderness. Bilateral foot wounds are currently dressed up. No drainage on the dressings. LABS: BUN of 33, creatinine 1.29. Wound culture is currently pending. DIAGNOSTIC IMPRESSION AND PLAN: Patient with bilateral diabetic foot wounds with secondary cellulitis. Overall wounds look clean. Cellulitis has improved. Patient did have a bone scan ordered by Admitting which has been mostly cellulitis and osteoarthritis. Clinical suspicion low for underlying osteomyelitis. Plan will be to finish therapy with oral Augmentin. Local care with Aquacel Silver dressing. Continue with supportive care. MMODL / IJN: [id number] /
--- NOTE | 2019-06-16 06:30 | PN ---
PROGRESS NOTE A 73-year-old white female remains on IV antibiotics, awaiting culture sensitivity to put in a PICC line and see and determine how long IV antibiotics will be needed, orally versus IV. Diabetes has been controlled. She has history of coronary artery disease. She is stable. VITAL SIGNS: Stable, afebrile. CARDIOVASCULAR: S1, S2. LUNGS: Clear. GI: Soft. EXTREMITIES:With decreasing redness and sores. Wilbur wraps and gauze wraps with antibiotic cream were being used. ASSESSMENT: 1. Cellulitis of the legs. 2. Possible osteomyelitis of the feet. 3. Possible PICC line, long-standing IV antibiotics. 4. custodial versus home will be worked on. 5. Continue with diabetes control. 6. Chronic obstructive pulmonary disease. 7. Congestive heart failure. 8. Coronary artery disease. Treatment will be continued. ANTHONY / FELICITASN: [id number] /
[2019-06-16] MEDS: AMPICILLIN-SULBACTAM 3 GM in SODIUM CHLORIDE 0.9% 100 ML IVPB SCH ×3 (06:57→17:18)
[2019-06-16 07:15] LABS: Glucose,Whole Blood 127 mg/dL (75-99)
[2019-06-16] MEDS: IPRATROPIUM 0.5 MG/2.5 ML NEBU INHALATION SCH ×4 (07:36→19:29)
[2019-06-16] MEDS: SYMBICORT 80-4.5 MCG INHALER INHALATION SCH ×2 (07:36→19:29)
[2019-06-16] MEDS: INSULIN ASPART (NovoLOG) 100 UNIT/ML VIAL SQ SCH ×3 (07:38→16:52)
[2019-06-16 07:50] VITALS: RESP 18
[2019-06-16] MEDS: DICYCLOMINE 10 MG CAP PO SCH (08:26)
[2019-06-16] MEDS: metFORMIN 500 MG TAB PO SCH ×2 (08:26→17:18)
[2019-06-16] MEDS: ISOSORBIDE MONONITRATE ER 60 MG TAB.ER.24H PO SCH (08:26)
[2019-06-16] MEDS: SUCRALFATE 1 GM TAB PO SCH ×3 (08:26→18:22)
[2019-06-16] MEDS: METOPROLOL TARTRATE 50 MG TAB PO SCH (08:27)
[2019-06-16] MEDS: FAMOTIDINE 20 MG TAB PO SCH (08:27)
[2019-06-16] MEDS: amLODIPine 10 MG TAB PO SCH (08:27)
[2019-06-16] MEDS: CLOPIDOGREL 75 MG TAB PO SCH (08:27)
[2019-06-16] MEDS: INSULN ASP PRT/INSULIN ASPART 100 UNIT/ML 10 ML VIAL SQ SCH ×2 (08:27→17:19)
[2019-06-16] MEDS: CHOLECALCIFEROL 1,000 UNIT TAB PO SCH (08:27)
[2019-06-16] MEDS: RANOLAZINE 500 MG TAB.ER.12H PO SCH (08:27)
[2019-06-16] MEDS: FUROSEMIDE 40 MG TAB PO SCH ×2 (08:27→17:18)
[2019-06-16] MEDS: ASPIRIN 81 MG PO SCH (08:27)
[2019-06-16 10:24] LABS: Anisocytosis Slight; HCT 36.2 % (34.0-46.0); HGB 11.5 gm/dL (11.4-16.0); MCH 23.8 pg (25.0-35.0); MCHC 31.8 g/dL (31.0-37.0); MCV 74.7 fL (80.0-100.0); Microcytosis Moderate; Platelet Count 323 k/uL (150-450); RBC 4.84 m/uL (3.80-5.40); RDW 17.1 % (11.5-15.5)
[2019-06-16] MEDS ORDERED: ACETAMINOPHEN TAB 325 MG TAB PO PRN (10:28)
[2019-06-16 10:34] LABS: Calcium 9.7 mg/dL (8.4-10.2); Potassium 4.7 mmol/L (3.5-5.1)
--- NOTE | 2019-06-16 11:46 | PN ---
PROGRESS NOTE Patient is seen for followup for acute kidney injury and hyperkalemia. Her serum creatinine is down to 1.10. She is currently doing very well. Patient denies any nausea, vomiting, abdominal pain or diarrhea. PHYSICAL EXAMINATION: On examination, blood pressure was 110/68, heart rate 79 per minute, she is afebrile. Examination of the heart S1, S2. Examination of the lungs, bilateral breath sounds are heard. Abdomen is soft, nontender. Examination of the lower extremities shows no evidence of edema. 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 LABS: Show sodium 130, potassium 4.7, chloride 94, CO2 is 24, BUN 36, creatinine 1.10. ASSESSMENT: 1. Acute kidney injury associated with use of Bactrim, some degree of volume depletion in the setting of use of PAPI inhibitors currently significantly improved. The blood pressure remains elevated. Patient can be restarted on her PAPI inhibitors as outpatient. 2. Hypertension, currently controlled. 3. Hyperkalemia associated with acute kidney injury use of PPAI inhibitors and Bactrim, now resolved and patient was on potassium supplements, which are currently on hold. 4. Mild volume overload maintained on Lasix which patient can continue post discharge as well. PLAN: Patient is stable for discharge from Nephrology standpoint. She should continue to avoid use of NSAIDs. Avoid Bactrim in the future. She can resume the PAPI inhibitors as outpatient. If blood pressure is elevated, currently it is good at systolic of 110- 120 mmHg and monitor labs periodically as outpatient. MMODL / IJN: [id number] /
[2019-06-16 11:52] LABS: Glucose,Whole Blood 116 mg/dL (75-99)
[2019-06-16 13:29] VITALS: BMI 42.3
--- NOTE | 2019-06-16 13:45 | CDI ---
Documentation Clarification Form Date: 06/16/2019 01:26:42 PM From: Courtney Lopez RN CCDS Admit Date: 06/14/2019 03:16:00 PM Patient Name: Lorelei Brand Visit Number: [id number] Discharge Date: ATTENTION: The Clinical Documentation Specialists (CDI) and [facility] Coding Staff appreciate your assistance in clarifying documentation. Please respond to the clarification below the line at the bottom and electronically sign. The CDI & [facility] Coding staff will review the response and follow-up if needed. Please note: Queries are made part of the Legal Health Record. If you have any questions, please contact the author of this message via ITS. Dr. Medardo Grande Congestive heart failure is documented in your progress note 06/15/19 History/Risk Factors: 73-year-old female presents to the ED with open wounds on bilateral feet. Medical history of DM; NC; Clinical Indicators: Nephrology progress note 06/16/19 mild volume overload maintained on Lasix which can continue post discharge as well. VS/Pulse OX: 145/71 77 98.2 94% ra Echocardiogram Results: 11/29/2017 Moderate concentric left ventricular hypertrophy. Overall left ventricular systolic function is low normal with, an EF between 50 -55% right ventricles is moderately enlarged, left atrium is mildly dilated, Treatment: 06/13 Lasix po BID; 06/14 Imdur 60mg po Daily; In your professional opinion, can you please clarify the acuity and type of CHF if known? * Chronic Diastolic Heart Failure: * Heart failure ruled out * Unable to Determine * Other, please specify (Last Revision: August 2017) MTDD
[2019-06-16 16:14] VITALS: BP 146/75; PULSE 78; TEMP 98
--- NOTE | 2019-06-16 16:14 | P.DS ---
Providers Date of admission: 06/14/19 15:16 Expected date of discharge: 06/16/19 Attending physician: Medardo Grande Consults: 06/13/19 13:01 Consult Physician Routine Consulting Provider: Joanne Perez Consult Reason/Comments: diabetic ulcer/foot wounds Do you want consulting provider notified?: Yes 06/13/19 16:24 Consult Physician Routine Consulting Provider: Angeles Watt Consult Reason/Comments: acute renal failure Do you want consulting provider notified?: Yes [facility] Course: Final diagnoses bilateral diabetic foot wounds with secondary cellulitis, improving. Acute renal failure secondary to dehydration, medications-Bactrim, PAPI inhibitor Hyperkalemia secondary to renal failure Diabetes mellitus Former nicotine dependence Acute mild CHF exacerbation, EF currently unknown echo pending COPD CAD Hospital course is a 73-year-old female admitted with bilateral foot wounds, secondary cellulitis. Bone scan completed reporting mostly cellulitis and osteoarthritis with low suspicion for underlying osteomyelitis. Wound cultures reporting moderate anaerobic gram positive cocci. Evaluated by infectious disease. Maintained on IV antibiotic therapy and local wound care. Patient will be discharged to [facility] subacute rehab in a stable condition with guarded prognosis pending ID clearance, discharge antibiotic and wound care recommendations. PHYSICAL EXAM: GENERAL: Sitting up in bed, no acute distress. Alert and oriented 3. CARDIOVASCULAR: S1, S2 regular. No murmur RESPIRATION: Breath sounds diminished in the bases. ABDOMEN: Soft, nontender . No guarding. no masses palpable. Bowel sounds heard. EXTREMITIES: Bilateral foot dressings clean dry and intact. NERVOUS SYSTEM:No focal deficits. The impression and plan of care has been dictated as directed. : I performed a history and examination of this patient, discussed the same with the dictator. I agree with the dictator's note ,documented as a scribe. Any additional findings or plans will be noted. Patient Condition at Discharge: Stable Plan - Discharge Summary Discharge Rx Participant: No New Discharge Prescriptions: New HYDROcodone/APAP 7.5-325MG [[place] 7.5-325] 1 each PO QID PRN #12 tab PRN Reason: Moderate pain INSULIN LISPRO (HumaLOG) [humaLOG] 0 unit SQ ACHS #1 vial Continue Simvastatin [Zocor] 20 mg PO HS Cholecalciferol [Vitamin D3 (25 Mcg = 1000 Iu)] 1,000 unit PO DAILY Sucralfate [Carafate] 1 gm PO QID #120 tablet Clopidogrel [Plavix] 75 mg PO QAM metFORMIN HCL 1,000 mg PO BID Montelukast Sodium [Singulair] 10 mg PO HS #30 tab Nitroglycerin Sl Tabs [Nitrostat] 0.4 mg SUBLINGUAL Q5M PRN #0 tab PRN Reason: Chest Pain Metoprolol Tartrate [Lopressor] 50 mg PO BID Metoclopramide [Reglan] 10 mg PO QID PRN PRN Reason: Nausea Melatonin 5 mg PO HS Ranitidine HCl 300 mg PO DAILY Insulin Aspart Protam & Aspart [NovoLOG MIX 70-30 Flexpen] 30 unit SQ AC-BID Fluticasone/Umeclidin/Vilanter [Trelegy Ellipta 100-62.5-25] 1 puff INHALATION RT-DAILY Etoile-3 Fatty Acids [Etoile-3] 2,000 mg PO QAM rOPINIRole HCL [Requip] 1 mg PO QID Vitamin B Complex 1 cap PO DAILY Isosorbide Mononitrate ER [Imdur] 60 mg PO DAILY #30 tab.er.24h Dicyclomine [Bentyl] 10 mg PO DAILY Aspirin 81 mg PO DAILY chew amLODIPine [Norvasc] 10 mg PO QAM #30 tab Ranolazine [Ranexa] 500 mg PO Q12HR #60 tab.er.12h Furosemide [Lasix] 40 mg PO BID Ranolazine [Ranolazine ER] 500 mg PO Q12H Potassium Chloride ER [K-Dur 20] 40 meq PO DAILY Discontinued HYDROcodone/APAP 7.5-325MG [[place] 7.5-325] 1 tab PO QID SILVER sulfADIAZINE Cream [Silvadene 1% Cream] 1 applic TOPICAL BID Sulfamethox-Tmp 800-160Mg [Bactrim DS 800-160 mg] 1 tab PO Q12HR Dulaglutide [Trulicity] 1.5 mg SQ SA Discharge Medication List Cholecalciferol [Vitamin D3 (25 Mcg = 1000 Iu)] 1,000 unit PO DAILY 02/26/15 [History] Simvastatin [Zocor] 20 mg PO HS 02/26/15 [History] Sucralfate [Carafate] 1 gm PO QID #120 tablet 03/04/15 [Rx] Clopidogrel [Plavix] 75 mg PO QAM 09/05/15 [History] metFORMIN HCL 1,000 mg PO BID 09/05/15 [History] Montelukast Sodium [Singulair] 10 mg PO HS #30 tab 10/25/15 [Rx] Nitroglycerin Sl Tabs [Nitrostat] 0.4 mg SUBLINGUAL Q5M PRN #0 tab 09/24/16 [Rx] Insulin Aspart Protam & Aspart [NovoLOG MIX 70-30 Flexpen] 30 unit SQ AC-BID 02/09/18 [History] Melatonin 5 mg PO HS 02/09/18 [History] Metoclopramide [Reglan] 10 mg PO QID PRN 02/09/18 [History] Metoprolol Tartrate [Lopressor] 50 mg PO BID 02/09/18 [History] Ranitidine HCl 300 mg PO DAILY 02/09/18 [History] Fluticasone/Umeclidin/Vilanter [Trelegy Ellipta 100-62.5-25] 1 puff INHALATION RT-DAILY 09/29/18 [History] Etoile-3 Fatty Acids [Etoile-3] 2,000 mg PO QAM 09/29/18 [History] Vitamin B Complex 1 cap PO DAILY 09/29/18 [History] rOPINIRole HCL [Requip] 1 mg PO QID 09/29/18 [History] Isosorbide Mononitrate ER [Imdur] 60 mg PO DAILY #30 tab.er.24h 11/17/18 [Rx] Dicyclomine [Bentyl] 10 mg PO DAILY 04/16/19 [History] Aspirin 81 mg PO DAILY chew 04/17/19 [Rx] Ranolazine [Ranexa] 500 mg PO Q12HR #60 tab.er.12h 04/17/19 [Rx] amLODIPine [Norvasc] 10 mg PO QAM #30 tab 04/17/19 [Rx] Furosemide [Lasix] 40 mg PO BID 06/13/19 [History] Potassium Chloride ER [K-Dur 20] 40 meq PO DAILY 06/13/19 [History] Ranolazine [Ranolazine ER] 500 mg PO Q12H 06/13/19 [History] HYDROcodone/APAP 7.5-325MG [[place] 7.5-325] 1 each PO QID PRN #12 tab 06/16/19 [Rx] INSULIN LISPRO (HumaLOG) [humaLOG] 0 unit SQ ACHS #1 vial 06/16/19 [Rx] Activity/Diet/Wound Care/Special Instructions: [facility]. Trulicity on hold while at rehab. DC antibiotics/Wound Care as per infectious disease CBC, BMP Diet: Consistent carb Discharge Disposition: TRANSFER TO SNF/ECF
[2019-06-16 16:32] LABS: Glucose,Whole Blood 130 mg/dL (75-99)
[2019-06-16] MEDS: HYDROcodone/APAP 7.5-325MG 1 EACH TAB PO PRN (18:25)
--- NOTE | 2019-06-16 19:17 | ECHOF ---
Referral Reason:LV fx MEASUREMENTS -------- HEIGHT: 170.2 cm WEIGHT: 122.5 kg BP: RVIDd: 3.4 cm (< 3.3) IVSd: 1.3 cm (0.6 - 1.1) LVIDd: 3.5 cm (3.9 - 5.3) LVPWd: 1.8 cm (0.6 - 1.1) IVSs: 1.9 cm LVIDs: 2.0 cm LVPWs: 2.1 cm Ao Diam: 2.7 cm (2.0 - 3.7) AV Cusp: 1.8 cm (1.5 - 2.6) LA Diam: 3.2 cm (2.7 - 3.8) MV EXCURSION: 10.412 mm (> 18.000) MV EF SLOPE: 32 mm/s (70 - 150) EPSS: 1.1 cm MV E Dorian: 0.84 m/s MV DecT: 207 ms MV A Dorian: 1.08 m/s MV E/A Ratio: 0.78 RAP: 5.00 mmHg RVSP: 11.51 mmHg FINDINGS -------- Sinus rhythm. This was a technically difficult study with suboptimal views. The left ventricular size is normal. There is moderate concentric left ventricular hypertrophy. O verall left ventricular systolic function is normal with, an EF between 55 - 60 %. The right ventricle is mildly enlarged. The left atrial size is normal. The right atrial size is normal. xx ml of Lumason was utilized for enhancement of images. The aortic valve was not well visualized. The mitral valve is normal. There is trace mitral regurgitation. The tricuspid valve appears structurally normal. Trace tricuspid regurgitation present. Right kaya tricular systolic pressure is normal at < 35 mmHg. There is no pulmonic regurgitation present. The aortic root size is normal. IVC Not well visulized. There is no pericardial effusion. CONCLUSIONS -------- 1. Sinus rhythm. 2. This was a technically difficult study with suboptimal views. 3. The left ventricular size is normal. 4. There is moderate concentric left ventricular hypertrophy. 5. Overall left ventricular systolic function is normal with, an EF between 55 - 60 %. 6. The right ventricle is mildly enlarged. 7. The left atrial size is normal. 8. The right atrial size is normal. 9. xx ml of Lumason was utilized for enhancement of images. 10. The aortic valve was not well visualized. 11. The mitral valve is normal. 12. There is trace mitral regurgitation. 13. The tricuspid valve appears structurally normal. 14. Trace tricuspid regurgitation present. 15. Right ventricular systolic pressure is normal at < 35 mmHg. 16. There is no pulmonic regurgitation present. 17. The aortic root size is normal. 18. IVC Not well visulized. 19. There is no pericardial effusion. HARDWARE [employer]PPLIES SALES REPRESENTATIVE: Nathalie Acosta RDCS
--- NOTE | 2019-06-16 21:49 | PN ---
PROGRESS NOTE DATE OF SERVICE: 06/16/2019 REASON FOR FOLLOWUP: Bilateral diabetic foot wound and cellulitis. INTERVAL HISTORY: The patient was seen on rounds early this afternoon. The patient has been afebrile, breathing comfortably. Denies any chest pain or cough. No nausea, vomiting. No abdominal pain. No pain about the foot wound or area. PHYSICAL EXAMINATION: Blood pressure 146/75 with a pulse of 78, temperature of 98. She is 91% on 3 L nasal cannula. General description is an elderly female lying in bed in no distress. Respiratory system: Unlabored breathing. Clear to auscultation anteriorly. Heart S1, S2. Regular rate and rhythm. Abdomen soft, no tenderness. Right foot plantar wound surrounding redness improved. No drainage. LABS: Hemoglobin is 11.5, white count 20,000. Wound culture aerobic gram-positive cocci. DIAGNOSTIC IMPRESSION AND PLAN: Patient with bilateral diabetic foot wound with secondary cellulitis of the right foot. Local wound care to continue with Aquacel Silver dressing. Offloading shoes. Antibiotic switched to Augmentin 875 b.i.d. Prescription was sent to the pharmacy. Continue supportive care. MMODL / IJN: [id number] /
[2019-06-17] MEDS ORDERED: Dulaglutide [Trulicity] 1.5 MG SQ SCH (09:00)
[2019-06-17] MEDS ORDERED: FAMOTIDINE 20 MG TAB PO SCH (09:00)
--- NOTE | 2019-06-17 13:10 | DS ---
DISCHARGE SUMMARY ADDENDUM TO DISCHARGE SUMMARY: Acute on chronic diastolic heart failure. MMODL / IJN: [id number] /
== END 2019-06-16 19:36 | DRG 637 ==
LOC: 1SOBS 12:12 → OBSVTOIN 06-14 15:16 → 1SOBS 06-14 23:50
PROVIDERS: ADMIT Family Medicine; ATTEND Family Medicine
DX: E11.628 Type 2 diabetes mellitus with other skin complications (principal); I50.33 Acute on chronic diastolic (congestive) heart failure; L03.115 Cellulitis of right lower limb; L03.116 Cellulitis of left lower limb; E87.1 Hypo-osmolality and hyponatremia; Z68.41 Body mass index [BMI] 40.0-44.9, adult; L97.511 Non-pressure chronic ulcer of other part of right foot limited to breakdown of skin; N17.9 Acute kidney failure, unspecified; L97.521 Non-pressure chronic ulcer of other part of left foot limited to breakdown of skin; E11.40 Type 2 diabetes mellitus with diabetic neuropathy, unspecified; E11.621 Type 2 diabetes mellitus with foot ulcer; I11.0 Hypertensive heart disease with heart failure; M19.90 Unspecified osteoarthritis, unspecified site; J44.9 Chronic obstructive pulmonary disease, unspecified; G47.33 Obstructive sleep apnea (adult) (pediatric); E87.5 Hyperkalemia; I25.10 Atherosclerotic heart disease of native coronary artery without angina pectoris; E86.0 Dehydration; T36.8X5A Adverse effect of other systemic antibiotics, initial encounter; T46.4X5A Adverse effect of angiotensin-converting-enzyme inhibitors, initial encounter; E86.1 Hypovolemia; L84 Corns and callosities; E66.9 Obesity, unspecified; B96.89 Other specified bacterial agents as the cause of diseases classified elsewhere; I25.2 Old myocardial infarction; Z71.3 Dietary counseling and surveillance; Z79.02 Long term (current) use of antithrombotics/antiplatelets; Z79.82 Long term (current) use of aspirin; Z79.4 Long term (current) use of insulin; Z79.899 Other long term (current) drug therapy; Z90.49 Acquired absence of other specified parts of digestive tract; Z95.5 Presence of coronary angioplasty implant and graft; Z98.890 Other specified postprocedural states; Z87.01 Personal history of pneumonia (recurrent); Z87.891 Personal history of nicotine dependence; Z88.8 Allergy status to other drugs, medicaments and biological substances; Z91.018 Allergy to other foods
CPT/HCPCS: 76770; 78315; 80048; 81001; 83036; 84132; 85027; 85652; 87070; 87075; 87205; 93306; 94640; 94760

== ENCOUNTER 2019-06-25 06:36 | Inpatient (IN) | payer MEDICARE, OTHER ==
[2019-06-25] MEDS ORDERED: SODIUM CHLORIDE 0.9% 500 ML 500 ML IV ONE (06:46)
[2019-06-25] MEDS ORDERED: SODIUM CHLORIDE 0.9% 1,000 ML IV ONE (06:46)
[2019-06-25] MEDS ORDERED: ONDANSETRON 4 MG/2 ML VIAL IVP STA (06:46)
[2019-06-25] MEDS ORDERED: DIAZEPAM 5 MG/ML 2 ML INJ IVP STA (06:52)
[2019-06-25] MEDS ORDERED: ACETAMINOPHEN TAB 325 MG TAB PO STA (07:08)
--- NOTE | 2019-06-25 07:12 | ED ---
General Adult HPI - General Source: patient, EMS, RN notes reviewed Mode of arrival: EMS Limitations: no limitations <Sundar Choi - Last Filed: 06/25/19 08:37> <Maria Luisa Campbell - Last Filed: 07/01/19 18:03> - General Chief complaint: Nausea/Vomiting/Diarrhea Stated complaint: V/D Time Seen by Provider: 06/25/19 06:38 - History of Present Illness Initial comments: This is a 73-year-old female presents emergency Department with chief complaint of nausea vomiting diarrhea. Patient was recently discharged from the hospital tomorrow would for rehab and treatment of her wound on her feet. Patient states that last night she ate a salad states that she did not feel well, has been dry heaving, vomiting throughout the night. Patient states she has diffuse abdominal discomfort but states that she was constipated for last 5 days and they have bowel movement but recent started having diarrhea. She has no compl aints of dysuria denies any chest pain, shortness breath, cough or any URI symptoms. Patient was given 4 Zofran by EMS states that she still feels nauseated. Patient states that she has restless leg syndrome has not been able take her Requip. Patient denies knowing that she had a fever, current temp 100.1. (Sundar Choi) - Related Data Home Medications Medication Instructions Recorded Confirmed Cholecalciferol [Vitamin D3 (25 1,000 unit PO DAILY 02/26/15 06/25/19 Mcg = 1000 Iu)] Simvastatin [Zocor] 20 mg PO HS 02/26/15 06/25/19 Clopidogrel [Plavix] 75 mg PO QAM 09/05/15 06/25/19 Melatonin 5 mg PO HS 02/09/18 06/25/19 Metoclopramide [Reglan] 10 mg PO QID PRN 02/09/18 06/25/19 Metoprolol Tartrate [Lopressor] 50 mg PO BID 02/09/18 06/25/19 Ranitidine HCl 300 mg PO DAILY 02/09/18 06/25/19 Fluticasone/Umeclidin/Vilanter 1 puff INHALATION RT-DAILY 09/29/18 06/25/19 [Trelestan Ellipta 100-62.5-25] Seltzer-3 Fatty Acids [Seltzer-3] 2,000 mg PO QAM 09/29/18 06/25/19 Vitamin B Complex 1 cap PO DAILY 09/29/18 06/25/19 rOPINIRole HCL [Requip] 1 mg PO QID 09/29/18 06/25/19 Dicyclomine [Bentyl] 10 mg PO DAILY 04/16/19 06/25/19 Ranolazine [Ranolazine ER] 500 mg PO Q12H 06/13/19 06/25/19 INSULIN LISPRO (HumaLOG) [humaLOG] See Protocol SQ ACHS 06/21/19 06/25/19 Lisinopril 40 mg PO DAILY 06/21/19 06/25/19 Previous Rx's Medication Instructions Recorded Sucralfate [Carafate] 1 gm PO QID #120 tablet 03/04/15 Montelukast Sodium [Singulair] 10 mg PO HS #30 tab 10/25/15 Nitroglycerin Sl Tabs [Nitrostat] 0.4 mg SUBLINGUAL Q5M PRN #0 tab 09/24/16 Isosorbide Mononitrate ER [Imdur] 60 mg PO DAILY #30 tab.er.24h 11/17/18 Aspirin 81 mg PO DAILY chew 04/17/19 amLODIPine [Norvasc] 10 mg PO QAM #30 tab 04/17/19 Acetaminophen Tab [Tylenol] 500 mg PO Q6HR PRN tab 06/23/19 HYDROcodone/APAP 7.5-325MG [[place] 1 tab PO QID PRN #12 tab 06/29/19 7.5-325] metroNIDAZOLE [Flagyl] 500 mg PO TID #30 tab 06/29/19 Allergies Allergy/AdvReac Type Severity Reaction Status Date / Time adhesive tape AdvReac bruises,"paper Verified 06/25/19 09:43 tape is ok" albuterol AdvReac Rapid Verified 06/25/19 09:43 Heart Rate stress test injection Allergy Anaphylaxis Uncoded 06/25/19 06:43 sun dried tomatoes Allergy lip Uncoded 06/25/19 06:43 swelling Review of Systems ROS Other: All systems not noted in ROS Statement are negative. <Sundar Choi - Last Filed: 06/25/19 08:37> ROS Other: All systems not noted in ROS Statement are negative. <Damer,Maria Luisa A - Last Filed: 07/01/19 18:03> ROS Statement: Those systems with pertinent positive or pertinent negative responses have been documented in the HPI. Past Medical History Past Medical History: Asthma, Coronary Artery Disease (CAD), Heart Failure, COPD, Diabetes Mellitus, Hyperlipidemia, Hypertension, Myocardial Infarction (KS), Osteoarthritis (OA), Pneumonia, Renal Disease, Skin Disorder, Sleep Apnea/CPAP/BIPAP Additional Past Medical History / Comment(s): Pt recently admitted to [facility] on 06/14/19 with bilateral diabetic foot wounds with 2ndary cellulitis. Other hx: Pt states she recently has been told that she has some renal insufficiency, NIDDM type II, neuropathy bilateral feet, IRA with no device, home oxygen at 2L/NC at HS, RLS, diarrhea. Last Myocardial Infarction Date:: 2017 History of Any Multi-Drug Resistant Organisms: None Reported Past Surgical History: Appendectomy, Breast Surgery, Cholecystectomy, Heart Catheterization, Heart Catheterization With Stent Additional Past Surgical History / Comment(s): PCI with stents, R lung thoracotomy/decortication for empyema, L breast benign bx, colonoscopy Past Anesthesia/Blood Transfusion Reactions: No Reported Reaction Additional Past Anesthesia/Blood Transfusion Reaction / Comment(s): severe claustrophobia Date of Last Stent Placement:: 11/30/2017 Past Psychological History: No Psychological Hx Reported Smoking Status: Former smoker - Past Family History Brother(s) Family Medical History: Cancer Father Additional Family Medical History / Comment(s): Father of a KS at the age of 77yrs. Mother Family Medical History: Cancer Additional Family Medical History / Comment(s): Mother of a KS at the age of 74yrs. <Sundar Choi - Last Filed: 06/25/19 08:37> General Exam Limitations: no limitations General appearance: alert, in no apparent distress Head exam: Present: atraumatic, normocephalic, normal inspection ENT exam: Present: normal exam, mucous membranes moist Neck exam: Present: normal inspection. Absent: tenderness, meningismus, lymphadenopathy Respiratory exam: Present: decreased breath sounds. Absent: normal lung sounds bilaterally, respiratory distress, wheezes, rales, rhonchi, stridor Cardiovascular Exam: Present: normal rhythm, tachycardia, normal heart sounds. Absent: systolic murmur, diastolic murmur, rubs, gallop, clicks GI/Abdominal exam: Present: soft, tenderness (Mild diffuse), normal bowel sounds. Absent: distended, guarding, rebound, rigid Back exam: Absent: CVA tenderness (R), CVA tenderness (L) Neurological exam: Present: alert, oriented X3 Skin exam: Present: warm, dry, intact, normal color. Absent: rash <Sundar Choi - Last Filed: 06/25/19 08:37> Course Vital Signs 06/25/19 06/25/19 06/25/19 06:39 07:03 07:23 Temperature 100.1 F H Pulse Rate 109 H 108 H Respiratory 18 16 Rate Blood Pressure 193/79 183/86 O2 Sat by Pulse 90 L 90 L 95 Oximetry 06/25/19 06/25/19 06/25/19 08:00 08:11 09:00 Temperature 99.3 F Pulse Rate 107 H 107 H 105 H Respiratory 18 18 18 Rate Blood Pressure 185/80 165/65 O2 Sat by Pulse 98 98 95 Oximetry Medical Decision Making - Lab Data Result diagrams: 06/25/19 06:47 06/25/19 06:47 <Sundar Choi - Last Filed: 06/25/19 08:37> - Lab Data Result diagrams: 06/29/19 07:26 06/29/19 07:26 <Maria Luisa Campbell - Last Filed: 07/01/19 18:03> - Medical Decision Making Chest x-ray reveals evidence of right lung pneumonia, CT of abdomen and pelvis was obtained which shows left-sided colitis. Patient was given initial dose of Rocephin will be given Flagyl at this time. Patient does have moderate marina kocytosis, dehydration. Patient will be admitted for IV and Biaxin hydration and further evaluation. (Sundar Choi) I was available for consultation in the emergency department. The history and physical exam were done by the midlevel provider. I was consulted for this fadi ents care. I reviewed the case with the midlevel provider and based on their presentation of the patient, I agree with the assessment, medical decision making and plan of care as documented. Chart was dictated using [facility] dictation software. Attempts were made to correct any dictation errors however some typographical errors may persist. (Maria Luisa Campbell) - Lab Data Lab Results 06/25/19 06/25/19 06/25/19 Range/Units 06:47 06:47 06:47 WBC 21.7 H (3.8-10.6) k/uL RBC 5.29 (3.80-5.40) m/uL Hgb 12.4 (11.4-16.0) gm/dL Hct 39.2 (34.0-46.0) % MCV 74.1 L (80.0-100.0) fL MCH 23.5 L (25.0-35.0) pg MCHC 31.7 (31.0-37.0) g/dL RDW 17.5 H (11.5-15.5) % Plt Count 371 (150-450) k/uL Neutrophils % 88 % Lymphocytes % 8 % Monocytes % 3 % Eosinophils % 0 % Basophils % 1 % Neutrophils # 19.1 H (1.3-7.7) k/uL Lymphocytes # 1.8 (1.0-4.8) k/uL Monocytes # 0.6 (0-1.0) k/uL Eosinophils # 0.1 (0-0.7) k/uL Basophils # 0.1 (0-0.2) k/uL Anisocytosis Slight Microcytosis Moderate Sodium 127 L (137-145) mmol/L Potassium 4.4 (3.5-5.1) mmol/L Chloride 93 L (98-107) mmol/L Carbon Dioxide 19 L (22-30) mmol/L Anion Gap 15 mmol/L BUN 14 (7-17) mg/dL Creatinine 0.79 (0.52-1.04) mg/dL Est GFR (CKD-EPI)AfAm 88 (>60 ml/min/1.73 sqM) Est GFR (CKD-EPI)NonAf 76 (>60 ml/min/1.73 sqM) Glucose 283 H (74-99) mg/dL Plasma Lactic Acid Mesfin (0.7-2.0) mmol/L Calcium 10.1 (8.4-10.2) mg/dL Total Bilirubin 0.6 (0.2-1.3) mg/dL AST 30 (14-36) U/L ALT 24 (4-34) U/L Alkaline Phosphatase 95 (38-126) U/L Total Protein 7.3 (6.3-8.2) g/dL Albumin 4.2 (3.5-5.0) g/dL Lipase 50 (23-300) U/L Influenza Type A RNA Not Detected (Not Detectd) Influenza Type B (PCR) Not Detected (Not Detectd) 06/25/19 Range/Units 07:23 WBC (3.8-10.6) k/uL RBC (3.80-5.40) m/uL Hgb (11.4-16.0) gm/dL Hct (34.0-46.0) % MCV (80.0-100.0) fL MCH (25.0-35.0) pg MCHC (31.0-37.0) g/dL RDW (11.5-15.5) % Plt Count (150-450) k/uL Neutrophils % % Lymphocytes % % Monocytes % % Eosinophils % % Basophils % % Neutrophils # (1.3-7.7) k/uL Lymphocytes # (1.0-4.8) k/uL Monocytes # (0-1.0) k/uL Eosinophils # (0-0.7) k/uL Basophils # (0-0.2) k/uL Anisocytosis Microcytosis Sodium (137-145) mmol/L Potassium (3.5-5.1) mmol/L Chloride (98-107) mmol/L Carbon Dioxide (22-30) mmol/L Anion Gap mmol/L BUN (7-17) mg/dL Creatinine (0.52-1.04) mg/dL Est GFR (CKD-EPI)AfAm (>60 ml/min/1.73 sqM) Est GFR (CKD-EPI)NonAf (>60 ml/min/1.73 sqM) Glucose (74-99) mg/dL Plasma Lactic Acid Mesfin 1.5 (0.7-2.0) mmol/L Calcium (8.4-10.2) mg/dL Total Bilirubin (0.2-1.3) mg/dL AST (14-36) U/L ALT (4-34) U/L Alkaline Phosphatase (38-126) U/L Total Protein (6.3-8.2) g/dL Albumin (3.5-5.0) g/dL Lipase (23-300) U/L Influenza Type A RNA (Not Detectd) Influenza Type B (PCR) (Not Detectd) Disposition <Sundar Choi - Last Filed: 06/25/19 08:37> <Maria Luisa Campbell - Last Filed: 07/01/19 18:03> Clinical Impression: Nausea & vomiting, Hyponatremia, Pneumonia, Colitis Disposition: ADMITTED IP TO THIS HOSP Condition: Stable
[2019-06-25 07:17] LABS: Anisocytosis Slight; Basophils # (A) 0.1 k/uL (0-0.2); Basophils % (A) 1 %; Eosinophils # (A) 0.1 k/uL (0-0.7); Eosinophils % (A) 0 %; HCT 39.2 % (34.0-46.0); HGB 12.4 gm/dL (11.4-16.0); Lymphocytes # (A) 1.8 k/uL (1.0-4.8); Lymphocytes % (A) 8 %; MCH 23.5 pg (25.0-35.0); MCHC 31.7 g/dL (31.0-37.0); MCV 74.1 fL (80.0-100.0); Mean Platelet Volume 6.5; Microcytosis Moderate; Monocytes # (A) 0.6 k/uL (0-1.0); Monocytes % (A) 3 %; Neutrophils # (A) 19.1 k/uL (1.3-7.7); Neutrophils % (A) 88 %; Platelet Count 371 k/uL (150-450); RBC 5.29 m/uL (3.80-5.40); RDW 17.5 % (11.5-15.5); WBC 21.7 k/uL (3.8-10.6)
[2019-06-25 07:26] LABS: Albumin 4.2 g/dL (3.5-5.0); Calcium 10.1 mg/dL (8.4-10.2); Potassium 4.4 mmol/L (3.5-5.1); Total Bilirubin 0.6 mg/dL (0.2-1.3); Total Protein 7.3 g/dL (6.3-8.2)
--- NOTE | 2019-06-25 07:48 | XR ---
EXAMINATION TYPE: XR chest 2V DATE OF EXAM: 06/25/2019 HISTORY: fever. REFERENCE: Previous study dated 06/20/2019. FINDINGS: Heart size upper limits of normal. There is chronic apparent elevation right hemidiaphragm. There is a patchy infiltrate in the right midlung. This is progressed from previous. The left lung i s clear. I could not exclude a small right effusion. IMPRESSION: 1. SMALL INFILTRATE, RIGHT MIDLUNG. 2. I CANNOT EXCLUDE A SMALL RIGHT EFFUSION.
[2019-06-25] MEDS ORDERED: cefTRIAXone IN SWFI 1,000 MG/10 ML SYRINGE IVP STA (07:54)
--- NOTE | 2019-06-25 08:19 | CT ---
EXAMINATION TYPE: CT abdomen pelvis w con DATE OF EXAM: 06/25/2019 REFERENCE: Previous study dated 02/26/2015 HISTORY: Abdominal pain, fever HISTORY: Nausea and lower pelvic pain CT DLP: 2306.6 mGy Automated exposure control for dose reduction was used. TECHNIQUE: Helical acquisition through the abdomen and pelvis was obtained following the oral ingesti on of without Oral Contrast and following intravenous administration of 100 mL of Isovue 300. The maurice a was reformatted in axial, coronal and sagittal projections. FINDINGS: Visualized portions of the lungs are clear. There is no pleural or pericardial fluid. The heart is mildly enlarged. There is a mild hiatal hernia. Within the abdomen, the gallbladder has been removed. The liver is prominent measuring 19 cm. This is largely due to a prominent Jaquan's lobe. The spleen is unremarkable. Both adrenal glands are normal. Both kidneys demonstrate function. There is a stable fatty lesion in the periphery of the mid polar r egion of the right kidney measuring approximately 1.5 cm. This undoubtedly represents an angiomyolipo ma. The pancreas appears unremarkable. There is moderate atheromatous calcification of the visualized arterial tree. There is no significant retroperitoneal, iliac or inguinal adenopathy. There is follicular change in the right ovary. Left ovary is unremarkable. The uterus is unremarkable . The bladder is mildly distended but otherwise unremarkable. There is diffuse thickening of the sigmoid colon, descending colon and much of the transverse colon. There is diverticular change within the sigmoid colon. There is no radiographic evidence of diverticu litis. The appendix is not visualized with certainty. Small bowel loops are of normal caliber. There is no free fluid and no free air. There is facet arthropathy in the lower lumbar spine and there is hypertrophic spondylosis in the low er dorsal spine. IMPRESSION: 1. FINDINGS CONSISTENT WITH DIFFUSE LEFT-SIDED COLITIS. 2. UNCOMPLICATED DIVERTICULOSIS OF THE LEFT SIDE OF THE COLON. 3. MILD HEPATOMEGALY. 4. MILD CARDIOMEGALY. 5. 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 6. SMALL HIATAL HERNIA.
[2019-06-25] MEDS ORDERED: metroNIDAZOLE-NS PMX 500 MG in SALINE 1 100ML.BAG IVPB STA (08:39)
[2019-06-25] MEDS ORDERED: PIPERACILLIN-TAZOBACTAM 3.375 GM in SODIUM CHLORIDE 0.9% 100 ML IVPB STA (08:40)
[2019-06-25] MEDS ORDERED: LEVOFLOXACIN 750MG-D5W PMX 750 MG in DEXTROSE/WATER 1 150ML.BAG IVPB STA (08:40)
[2019-06-25] MEDS ORDERED: PNEUMONIA PROTOCOL UTILIZED 1 EACH MISC PO PRN (08:40)
[2019-06-25 09:09] LABS: Appearance,Urine Clear (Clear); Bilirubin,Urine Negative (Negative); Blood,Urine Small (Negative); Color,Urine Light Yellow; Glucose,Urine (UA) 4+ (Negative); Ketones,Urine Negative (Negative); Leukocyte Esterase,Urine Negative (Negative); Mucus,Urine Rare /hpf; Nitrite,Urine Negative (Negative); Protein,Urine 2+ (Negative); RBC,Urine 2 /hpf (0-5); Specific Gravity,Urine 1.031 (1.001-1.035); Urobilinogen,Urine <2.0 mg/dL (<2.0); WBC,Urine 1 /hpf (0-5)
[2019-06-25] MEDS: SODIUM CHLORIDE 0.9% 1,000 ML IV SCH (09:14)
[2019-06-25] MEDS: ONDANSETRON 4 MG/2 ML VIAL IVP PRN ×2 (11:46→17:35)
[2019-06-25] MEDS: HYDROmorphone 0.5 MG/0.5 ML SYRINGE IVP PRN ×3 (11:46→19:30)
[2019-06-25 11:51] LABS: Glucose,Whole Blood 239 mg/dL (75-99)
[2019-06-25] MEDS: INSULIN ASPART (NovoLOG) 100 UNIT/ML VIAL SQ SCH ×3 (13:14→21:48)
[2019-06-25] MEDS ORDERED: ACETAMINOPHEN TAB 500 MG TAB PO PRN (14:09)
[2019-06-25] MEDS ORDERED: NITROGLYCERIN SL TABS 0.4 MG TAB SUBLINGUAL PRN (14:09)
[2019-06-25] MEDS ORDERED: ALPRAZolam 0.25 MG TAB PO PRN (14:12)
[2019-06-25] MEDS ORDERED: TEMAZEPAM 15 MG CAP PO PRN (14:12)
[2019-06-25] MEDS: DICYCLOMINE 10 MG CAP PO SCH (15:22)
[2019-06-25] MEDS: ASPIRIN 81 MG PO SCH (15:22)
[2019-06-25] MEDS: CLOPIDOGREL 75 MG TAB PO SCH (15:22)
[2019-06-25] MEDS: amLODIPine 10 MG TAB PO SCH (15:29)
[2019-06-25] MEDS: RANOLAZINE 500 MG TAB.ER.12H PO SCH (15:49)
[2019-06-25] MEDS: metroNIDAZOLE-NS PMX 500 MG in SALINE 1 100ML.BAG IVPB SCH (15:49)
[2019-06-25] MEDS ORDERED: metroNIDAZOLE-NS PMX 500 MG in SALINE 1 100ML.BAG IVPB SCH (16:00)
[2019-06-25] MEDS: IPRATROPIUM 0.5 MG/2.5 ML NEBU INHALATION SCH ×2 (16:26→19:08)
[2019-06-25 17:04] LABS: Glucose,Whole Blood 178 mg/dL (75-99)
[2019-06-25] MEDS: SUCRALFATE 1 GM TAB PO SCH ×2 (17:35→21:47)
[2019-06-25] MEDS: VANCOMYCIN ORAL SOLUTION 250 MG/5 ML BOTTLE PO SCH (17:36)
--- NOTE | 2019-06-25 19:22 | HP ---
HISTORY AND PHYSICAL I am covering for Dr. Grande. DATE OF SERVICE: 06/25/2019 CHIEF COMPLAINT: Nausea, vomiting, diarrhea, abdominal discomfort. HISTORY OF PRESENT ILLNESS: This 73-year-old woman with a past medical history of multiple medical problems including history of asthma, CAD, COPD, CHF, history of diabetes, hypertension, history of DJD, history of sleep apnea, being followed by Dr. Grande in the outpatient setting was recently admitted to [facility] with renal failure, weakness. The patient also had a fall also. The patient also lactic acidemia. The patient also had bilateral leg ulcers, diabetic ulcers. The patient improved significantly. Patient subsequently was evaluated by the PT/OT and the patient was under the care of [facility], but the patient was initially on IV Unasyn and 5 days of Augmentin was recommended by Dr. Perez, but after going to the rehab, the patient had significant abdominal discomfort, diarrhea, nausea, vomiting, unable to keep anything down. The patient also had diffuse abdominal discomfort and the patient came to [facility] and was admitted to the hospital for further evaluation and treatment. The patient previously had constipation. There is no history of fever, rigors or chills. No history of headache, loss of consciousness, seizures. Patient had some Zofran from the EMS with some relief at this time. PAST MEDICAL HISTORY: History of recent renal failure, gait dysfunction and weakness. Otherwise, asthma, CHF, COPD, diabetes type 2, hypertension, history of myocardial infarction, DJD, history of sleep apnea, history of appendectomy, breast surgery. MEDICATIONS: Home medications are: 1. Melatonin 5 mg q.h.s. 2. Requip 1 mg p.o. q.i.d. 3. Norvasc 10 mg q.a.m. 4. Vitamin B complex 1 p.o. daily. 5. Carafate 1 g p.o. q.i.d. 6. Zocor 20 mg q.h.s. 7. Penicillin 500 mg p.o. b.i.d. 8. Ranitidine 300 mg p.o. daily. 9. [place]-3 2 g q.a.m. 10.Nitrostat 0.4 sublingual p.r.n. 11.Singulair 10 mg at bedtime. 12.Lopressor 50 mg p.o. b.i.d. 13.Reglan 10 mg q.i.d. p.r.n. 14.Lisinopril 40 mg p.o. daily. 15.Imdur 60 mg p.o. daily. 16.Humalog before meals and q.h.s. 17.[place]wingle 1 tab q.i.d. p.r.n. 18.Trilogy 1 puff daily. 19.Bentyl 10 mg p.o. daily. 20.Plavix 75 mg q.a.m. 21.Vitamin D3 1000 daily. 22.Aspirin 81 mg. 23.Augmentin 875 mg 1 p.o. b.i.d. 24.Tylenol 500 mg q.6h p.r.n. ALLERGIES: ADHESIVE TAPE, ALBUTEROL, STRESS TEST INJECTION, FAMILY HISTORY: Cancer. SOCIAL HISTORY: Previous history of smoking. No history of current smoking or alcohol intake. REVIEW OF SYSTEMS: ENT: No diminished vision. No diminished hearing. CARDIOVASCULAR system: No angina or palpitations. RESPIRATORY: As mentioned earlier. GASTROINTESTINAL: As mentioned earlier. : As mentioned earlier. Nervous system as mentioned earlier. ALLERGY/IMMUNOLOGY: As mentioned earlier. MUSCULOSKELETAL: As mentioned earlier. HEMATOLOGY/ONCOLOGY: No history of anemia. ENDOCRINE: As mentioned earlier. CONSTITUTIONAL: As mentioned earlier. DERMATOLOGY: Negative. RHEUMATOLOGY negative. PSYCHIATRY as mentioned earlier. PHYSICAL EXAMINATION: The patient is alert and oriented times three. Pulse 107, blood pressure 160/66, respiration 18, temperature 99.2, pulse ox 98% on 2 L. HEENT: Conjunctivae normal. Oral mucosa dry. NECK is no jugular venous distention. No carotid bruit. No lymph node enlargement. Cardiovascular system: S1, S2 muffled. No S3, no S4. RESPIRATORY: Breath sounds diminished in the bases. A few scattered rhonchi and crackles. ABDOMEN: Soft, obese, nontender. No mass palpable. LEGS: No edema. No swelling. Diabetic ulcer present. NERVOUS SYSTEM: Higher functions as mentioned earlier. Moves all 4 limbs. Mild diffuse weakness. Lymphatics: No lymph nodes palpable in the neck, axillae or groin. SKIN: No ulcer, no rashes and no bleeding. JOINTS: No active deforming arthropathy. LABS: WBC 21.6, hemoglobin 12.1, sodium 127. ASSESSMENT: 1. Acute nausea, vomiting and diarrhea, possible acute gastroenteritis, rule out C difficile colitis. 2. Dehydration, present on admission. 3. Hyponatremia, possibly hypovolemic. 4. Increased WBC possibly reactive. 5. History of asthma, chronic obstructive pulmonary disease. 6. History of recent renal failure with lactic acidemia. 7. Gait dysfunction and falls. 8. Chronic kidney stage 3 history. 9. History of asthma/chronic obstructive pulmonary disease. 10.History of congestive heart failure, ejection fraction unknown. 11.Diabetes type 2. 12.Hypertension. 13.Hyperlipidemia. 14.History of myocardial infarction. 15.History of degenerative joint disease. 16.History of pneumonia. 17.History of sleep apnea. 18.History of bilateral diabetic foot wounds with secondary cellulitis. 19.Chronic hypoxic respiratory failure on 2 L nasal cannula at home. 20.History of appendectomy. 21.History of breast surgery. 22.History of coronary artery disease/stent. 23.Remote history of nicotine dependence. 24.Obesity with body mass index of 42.6. RECOMMENDATIONS AND DISCUSSION: This 73-year-old woman who presented with multiple complex medical issues, at this time, I recommend to continue the current medications, management and symptomatic treatment. We will check C difficile and treat accordingly. I would also recommend to continue with consult with Dr. Perez regarding the ongoing management of the diabetic wounds. The possibility of either C difficile colitis or to be considered. Resume the rest of the home medications. Monitor blood pressure closely. Continue IV fluids. Prognosis extremely guarded because of multiple complex medical issues. Discussed with the patient who understands and agrees. Further recommendations to follow. A copy of this dictation being forwarded to Dr. Grande who is the primary physician. Dr. Dr. Grande will follow tomorrow. JEYL / FELICITASN: [id number] / MTDD
[2019-06-25 21:21] LABS: Glucose,Whole Blood 190 mg/dL (75-99)
[2019-06-25] MEDS: ATORVASTATIN 10 MG TAB PO SCH (21:47)
[2019-06-25] MEDS: MONTELUKAST 10 MG TAB PO SCH (21:47)
[2019-06-25] MEDS: METOPROLOL TARTRATE 50 MG TAB PO SCH (21:47)
[2019-06-25] MEDS: MELATONIN 5 MG TABLET PO SCH (21:47)
[2019-06-25] MEDS: HEPARIN SODIUM,PORCINE 5,000 UNIT/ML 1 ML VIAL SQ SCH (21:48)
--- NOTE | 2019-06-25 22:13 | P.CONS ---
History of Present Illness - Reason for Consult Consult date: 06/25/19 colitis Requesting physician: Marcelle Gee - Chief Complaint diarrhea 1 day - History of Present Illness patient is a 73-year-old female who was recently admitted to this facility with bilateral diabetic foot plantar wound with secondary cellulitis for the patient was treated with IV Unasyn subsequent discharged to assisted on Wednesday with a short course of oral Augmentin, patient did not have any diarrhea during her hospital stay and the patient mentioned she was constipated she was given laxative and afterwards the patient did have persistent diarrhea over the last 24 hours patient did have multiple loose stool with no blood or mucus in the stool. the patient has been complaining of pain to the left lower abdominal area which is radiating across lower abdomen more of a sharp characteristic intensity about 7 out of 10, patient has complaining of nausea but no vomiting denies having any chest pain shortness of cough no pain to bilateral foot plantar wound with the symptoms and the patient was sent back to the [facility] ER with the patient was evaluated on admission the patient did have low-grade fever 100.1 she was tachycardic and did have a white count of 21,000 patient did have a CT of abdominal pelvis that has been suggestive of colitis influenza serology negative stool for C. diff requested are completed patient has been admitted to the hospital infectious disease was consulted for further recommendation of her antibiotic therapy Review of Systems Positive point has been mentioned in the HPI rest of the systems are negative Past Medical History Past Medical History: Asthma, Coronary Artery Disease (CAD), Heart Failure, COPD, Diabetes Mellitus, Hyperlipidemia, Hypertension, Myocardial Infarction (MA), Osteoarthritis (OA), Pneumonia, Renal Disease, Skin Disorder, Sleep Apnea/CPAP/BIPAP Additional Past Medical History / Comment(s): Pt recently admitted to [facility] on 06/14/19 with bilateral diabetic foot wounds with 2ndary cellulitis. Other hx: Pt states she recently has been told that she has some renal insufficiency, N IDDM type II, neuropathy bilateral feet, IRA with no device, home oxygen at 2L/NC at HS, RLS, diarrhea. Last Myocardial Infarction Date:: 2017 History of Any Multi-Drug Resistant Organisms: None Reported Past Surgical History: Appendectomy, Breast Surgery, Cholecystectomy, Heart Catheterization, Heart Catheterization With Stent Additional Past Surgical History / Comment(s): PCI with stents, R lung thoracotomy/decortication for empyema, L breast benign bx, colonoscopy Past Anesthesia/Blood Transfusion Reactions: No Reported Reaction Additional Past Anesthesia/Blood Transfusion Reaction / Comm: severe claustrophobia Date of Last Stent Placement:: 11/30/2017 Past Psychological History: No Psychological Hx Reported Additional Psychological History / Comment(s): Severe claustrophobia. Pt resides alone in her home. Currently at [facility] for rehab, 06/25/19. She has 14 stair steps to get up to her bathroom/bedroom. She is established with [facility] home care. Her son, Frank, is assisting her with wound dressings on her bilateral feet. Smoking Status: Former smoker Past Alcohol Use History: None Reported Additional Past Alcohol Use History / Comment(s): STARTED SMOKING AGE 18 (1963) AND QUIT 1994. SMOKED 1 PPD. STATES SHE IS AN ALCOHOLIC AND QUIT DRINKING 29 yrs ago Past Drug Use History: None Reported - Past Family History Brother(s) Family Medical History: Cancer Father Additional Family Medical History / Comment(s): Father of a MA at the age of 77yrs. Mother Family Medical History: Cancer Additional Family Medical History / Comment(s): Mother of a MA at the age of 74yrs. Medications and Allergies Home Medications Medication Instructions Recorded Confirmed Type Cholecalciferol [Vitamin D3 (25 1,000 unit PO DAILY 02/26/15 06/25/19 History Mcg = 1000 Iu)] Simvastatin [Zocor] 20 mg PO HS 02/26/15 06/25/19 History Sucralfate [Carafate] 1 gm PO QID #120 tablet 03/04/15 06/25/19 Rx Clopidogrel [Plavix] 75 mg PO QAM 09/05/15 06/25/19 History Montelukast Sodium [Singulair] 10 mg PO HS #30 tab 10/25/15 06/25/19 Rx Nitroglycerin Sl Tabs [Nitrostat] 0.4 mg SUBLINGUAL Q5M PRN #0 tab 09/24/16 06/25/19 Rx Melatonin 5 mg PO HS 02/09/18 06/25/19 History Metoclopramide [Reglan] 10 mg PO QID PRN 02/09/18 06/25/19 History Metoprolol Tartrate [Lopressor] 50 mg PO BID 02/09/18 06/25/19 History Ranitidine HCl 300 mg PO DAILY 02/09/18 06/25/19 History Fluticasone/Umeclidin/Vilanter 1 puff INHALATION RT-DAILY 09/29/18 06/25/19 History [Stoney Ellipta 100-62.5-25] [place]-3 Fatty Acids [[place]-3] 2,000 mg PO QAM 09/29/18 06/25/19 History Vitamin B Complex 1 cap PO DAILY 09/29/18 06/25/19 History rOPINIRole HCL [Requip] 1 mg PO QID 09/29/18 06/25/19 History Isosorbide Mononitrate ER [Imdur] 60 mg PO DAILY #30 tab.er.24h 11/17/18 06/25/19 Rx Dicyclomine [Bentyl] 10 mg PO DAILY 04/16/19 06/25/19 History Aspirin 81 mg PO DAILY chew 04/17/19 06/25/19 Rx amLODIPine [Norvasc] 10 mg PO QAM #30 tab 04/17/19 06/25/19 Rx Ranolazine [Ranolazine ER] 500 mg PO Q12H 06/13/19 06/25/19 History INSULIN LISPRO (HumaLOG) [humaLOG] See Protocol SQ ACHS 06/21/19 06/25/19 History Lisinopril 40 mg PO DAILY 06/21/19 06/25/19 History Acetaminophen Tab [Tylenol] 500 mg PO Q6HR PRN tab 06/23/19 06/25/19 Rx Amoxic-Pot Clav 875-125Mg 1 tab PO Q12HR 5 Days #20 tablet 06/23/19 06/25/19 Rx [Augmentin 875-125] HYDROcodone/APAP 7.5-325MG [[place] 1 tab PO QID PRN #12 tab 06/23/19 06/25/19 Rx 7.5-325] Allergies Allergy/AdvReac Type Severity Reaction Status Date / Time adhesive tape AdvReac bruises,"paper Verified 06/25/19 09:43 tape is ok" albuterol AdvReac Rapid Verified 06/25/19 09:43 Heart Rate stress test injection Allergy Anaphylaxis Uncoded 06/25/19 06:43 sun dried tomatoes Allergy lip Uncoded 06/25/19 06:43 swelling Physical Exam Vitals: Vital Signs Temp Pulse Pulse Resp BP BP Pulse Ox 06/25/19 15:39 98.3 F 96 18 158/79 92 L 06/25/19 09:00 105 H 18 165/65 95 06/25/19 08:11 99.3 F 107 H 18 98 06/25/19 08:00 107 H 18 185/80 98 06/25/19 07:23 95 06/25/19 07:03 108 H 16 183/86 90 L 06/25/19 06:39 100.1 F H 109 H 18 193/79 90 L Intake and Output 06/25/19 06/25/19 06/25/19 06:59 14:59 22:59 Intake Total 925 Balance 925 Intake: IV 850 Levofloxacin 750Mg-D5w 150 Pmx 750 mg In Dextrose/ Water 1 150ml.bag @ 100 mls/hr IVPB ONCE STA Rx#: [id number] Sodium Chloride 0.9% 1, 600 000 ml @ 75 mls/hr IV . [id number] [facility] Rx#:[id number] metroNIDAZOLE-NS PMX 500 100 mg In Saline 1 100ml.bag @ 100 mls/hr IVPB ONCE STA Rx#:[id number] Amount of Fluid Infused ( 75 ml) Oral 0 Other: # Voids 1 1 Weight 123.377 kg 123.377 kg GENERAL DESCRIPTION: elderly female lying in bed, no distress. No tachypnea or accessory muscle of respiration use. HEENT: Shows Pallor , no scleral icterus. Oral mucous membrane is dry. No pharyngeal erythema or thrush NECK: Trachea central, no thyromegaly. LUNGS: Unlabored breathing. Clear to auscultation anteriorly. No wheeze or crackle. HEART: S1, S2, regular rate and rhythm. No loud murmur ABDOMEN: Soft, lower abdominal tenderness , no guarding or rigidity, no organomegaly EXTREMITIES: No edema of feet. bilateral foot plantar wounds have dried out no cellulitis SKIN: No rash, no masses palpable. NEUROLOGICAL: The patient is awake, alert, oriented x3, mood and affect normal. Results CBC & Chem 7: 06/25/19 06:47 06/25/19 06:47 Labs: Abnormal Lab Results - Last 24 Hours (Table) 06/25/19 06/25/19 06/25/19 Range/Units 06:47 06:47 08:46 WBC 21.7 H (3.8-10.6) k/uL MCV 74.1 L (80.0-100.0) fL MCH 23.5 L (25.0-35.0) pg RDW 17.5 H (11.5-15.5) % Neutrophils # 19.1 H (1.3-7.7) k/uL Sodium 127 L (137-145) mmol/L Chloride 93 L (98-107) mmol/L Carbon Dioxide 19 L (22-30) mmol/L Glucose 283 H (74-99) mg/dL POC Glucose (mg/dL) (75-99) mg/dL Urine Protein 2+ H (Negative) Urine Glucose (UA) 4+ H (Negative) Urine Blood Small H (Negative) Urine Mucus Rare H (None) /hpf 06/25/19 06/25/19 06/25/19 Range/Units 11:50 17:02 21:20 WBC (3.8-10.6) k/uL MCV (80.0-100.0) fL MCH (25.0-35.0) pg RDW (11.5-15.5) % Neutrophils # (1.3-7.7) k/uL Sodium (137-145) mmol/L Chloride (98-107) mmol/L Carbon Dioxide (22-30) mmol/L Glucose (74-99) mg/dL POC Glucose (mg/dL) 239 H 178 H 190 H (75-99) mg/dL Urine Protein (Negative) Urine Glucose (UA) (Negative) Urine Blood (Negative) Urine Mucus (None) /hpf Assessment and Plan Assessment: 1- patient presented to hospital with sepsis in this patient who did have a fever tachycardia and elevated white count in this patient did have significant diarrhea the CT showing colitis likely representing C. diff colitis in this patient recently hospitalized exposed to anybody for her diabetic foot ulcers (1) Colitis Current Visit: Yes Status: Acute Code(s): K52.9 - NONINFECTIVE GASTROENTERITIS AND COLITIS, UNSPECIFIED SNOMED Code(s): 44607379 (2) Sepsis Current Visit: No Status: Acute Code(s): A41.9 - SEPSIS, UNSPECIFIED ORGANISM SNOMED Code(s): 40132232 Plan: 1-we will check stool for C. diff 2-vancomycin 250 mg by mouth every 6 hours 3-Questran 4 g twice a day and avoid antimotility agent 4- IV fluid We will follow on clinical condition and cultures to further adjust medication if needed Thank you for this consultation will follow this patient with you Time with Patient: Greater than 30
[2019-06-26] MEDS: metroNIDAZOLE-NS PMX 500 MG in SALINE 1 100ML.BAG IVPB SCH ×4 (00:03→23:10)
[2019-06-26] MEDS: ONDANSETRON 4 MG/2 ML VIAL IVP PRN ×3 (00:03→16:17)
[2019-06-26] MEDS: SODIUM CHLORIDE 0.9% 1,000 ML IV SCH ×3 (00:04→23:08)
[2019-06-26] MEDS: VANCOMYCIN ORAL SOLUTION 250 MG/5 ML BOTTLE PO SCH ×5 (00:05→23:07)
[2019-06-26] MEDS: HYDROmorphone 0.5 MG/0.5 ML SYRINGE IVP PRN ×5 (00:16→23:17)
[2019-06-26] MEDS: RANOLAZINE 500 MG TAB.ER.12H PO SCH ×2 (03:18→16:17)
[2019-06-26 07:10] LABS: Anisocytosis Slight; Basophils # (A) 0.1 k/uL (0-0.2); Basophils % (A) 0 %; Eosinophils # (A) 0.1 k/uL (0-0.7); Eosinophils % (A) 1 %; HCT 39.2 % (34.0-46.0); HGB 12.5 gm/dL (11.4-16.0); Hypochromasia Slight; Lymphocytes # (A) 2.5 k/uL (1.0-4.8); Lymphocytes % (A) 13 %; MCH 24.3 pg (25.0-35.0); MCHC 31.7 g/dL (31.0-37.0); MCV 76.6 fL (80.0-100.0); Microcytosis Slight; Monocytes # (A) 0.9 k/uL (0-1.0); Monocytes % (A) 5 %; Neutrophils # (A) 14.8 k/uL (1.3-7.7); Neutrophils % (A) 80 %; Platelet Count 350 k/uL (150-450); RBC 5.12 m/uL (3.80-5.40); RDW 17.4 % (11.5-15.5); WBC 18.6 k/uL (3.8-10.6)
[2019-06-26 07:23] LABS: Glucose,Whole Blood 218 mg/dL (75-99)
[2019-06-26 07:27] LABS: African American GFR (CKD) >90 (>60 ml/min/1.73 sqM); Anion Gap 10 mmol/L; Blood Urea Nitrogen 9 mg/dL (7-17); Calcium 9.2 mg/dL (8.4-10.2); Carbon Dioxide 25 mmol/L (22-30); Chloride 95 mmol/L (98-107); Glucose 190 mg/dL (74-99); Non-African American GFR(CKD) 85 (>60 ml/min/1.73 sqM); Potassium 4.8 mmol/L (3.5-5.1); Sodium 130 mmol/L (137-145)
[2019-06-26] MEDS: INSULIN ASPART (NovoLOG) 100 UNIT/ML VIAL SQ SCH ×4 (07:37→21:05)
--- NOTE | 2019-06-26 08:30 | XR ---
EXAMINATION TYPE: XR chest 2V DATE OF EXAM: 06/26/2019 COMPARISON: 06/25/2019 HISTORY: Clinical pneumonia. Shortness of breath. TECHNIQUE: Frontal and lateral views of the chest are obtained. FINDINGS: Mild diffuse interstitial prominence is unchanged. Very trace right pleural effusion blun ts the costophrenic angle. No pneumothorax. The cardiac silhouette size is within normal limits. The osseous structures are intact. IMPRESSION: Mild diffuse interstitial prominence remains unchanged. This may be on the basis of very mild interstitial edema or atypical pneumonia.
[2019-06-26] MEDS: FATTY ACIDS PO SCH (09:17)
[2019-06-26] MEDS: amLODIPine 10 MG TAB PO SCH (09:17)
[2019-06-26] MEDS: FAMOTIDINE 20 MG TAB PO SCH (09:17)
[2019-06-26] MEDS: DICYCLOMINE 10 MG CAP PO SCH (09:17)
[2019-06-26] MEDS: METOPROLOL TARTRATE 50 MG TAB PO SCH ×2 (09:17→20:28)
[2019-06-26] MEDS: ASPIRIN 81 MG PO SCH (09:17)
[2019-06-26] MEDS: CHOLECALCIFEROL 1,000 UNIT TAB PO SCH (09:17)
[2019-06-26] MEDS: HEPARIN SODIUM,PORCINE 5,000 UNIT/ML 1 ML VIAL SQ SCH ×2 (09:17→20:28)
[2019-06-26] MEDS: ISOSORBIDE MONONITRATE ER 60 MG TAB.ER.24H PO SCH (09:17)
[2019-06-26] MEDS: OMEGA PO SCH (09:17)
[2019-06-26] MEDS: CLOPIDOGREL 75 MG TAB PO SCH (09:17)
[2019-06-26] MEDS: NON FORMULARY DRUG (Vitamin B Complex [Vitamin B Complex] 1 CAP) PO SCH (09:18)
[2019-06-26] MEDS: HYDROcodone/APAP 7.5-325MG 1 EACH TAB PO PRN ×2 (09:29→20:27)
[2019-06-26] MEDS: SUCRALFATE 1 GM TAB PO SCH ×4 (09:30→21:05)
[2019-06-26] MEDS: CHOLESTYRAMINE (WITH SUGAR) 4 GM PACKET PO SCH ×2 (09:30→21:06)
[2019-06-26] MEDS: LISINOPRIL 20 MG TAB PO SCH (09:30)
[2019-06-26] MEDS: SYMBICORT 80-4.5 MCG INHALER INHALATION SCH ×2 (09:46→19:45)
[2019-06-26] MEDS: IPRATROPIUM 0.5 MG/2.5 ML NEBU INHALATION SCH ×4 (09:47→19:45)
[2019-06-26 12:07] LABS: Glucose,Whole Blood 167 mg/dL (75-99)
[2019-06-26 17:08] LABS: Glucose,Whole Blood 182 mg/dL (75-99)
--- NOTE | 2019-06-26 17:16 | P.PN ---
Subjective Progress Note Date: 06/26/19 This is 73-year-old female admitted with sepsis, nausea vomiting, diarrhea, possibly colitis, ruling out C. difficile and multiple other medical issues. Maintained on oral vancomycin as per ID. CT of abdomen and pelvis suggestive of colitis. Afebrile, WBC trending down to 18.6. Maintained on gentle IV fluid hydration, sodium improving, up to 130. Good Diet intake, consuming 75%. Fluctuating nausea. No diarrhea. Complains of abdominal cramping. Chest x-ray reports unchanged, mild interstitial edema or atypical pneumonia. Objective - Vital Signs Vital signs: Vital Signs Temp 98.5 F 06/26/19 07:20 Pulse 83 06/26/19 07:20 Resp 16 06/26/19 07:20 BP 149/76 06/26/19 07:20 Pulse Ox 95 06/26/19 07:20 Intake & Output 06/25/19 06/26/19 06/26/19 18:59 06:59 18:59 Intake Total 925 1200 600 Balance 925 1200 600 Weight 123.377 kg Intake: IV 850 1200 600 Levofloxacin 750Mg-D5w 150 Pmx 750 mg In Dextrose/ Water 1 150ml.bag @ 100 mls/hr IVPB ONCE STA Rx#: [id number] Sodium Chloride 0.9% 1, 600 1200 600 000 ml @ 75 mls/hr IV . [id number] [facility] Rx#:[id number] metroNIDAZOLE-NS PMX 500 100 mg In Saline 1 100ml.bag @ 100 mls/hr IVPB ONCE STA Rx#:[id number] Amount of Fluid Infused ( 75 ml) Oral 0 Other: Voiding Method Toilet Toilet # Voids 1 1 1 # Bowel Movements 0 - Exam PHYSICAL EXAM: VITAL SIGNS: [As above] GENERAL: Sitting up in bed, no acute distress HEENT: Conjunctivae normal. eyes normal. NECK: No JVD. No thyroid enlargement. No LNs CARDIOVASCULAR: S1, S2 regular.. No murmur RESPIRATION: Nonlabored, Breath sounds diminished in the bases. No rhonchi or crackles. No bronchial breathing. ABDOMEN: Soft, nondistended, bilateral lower quadrant tenderness, No guarding. no masses palpable. No ascites, No hepatosplenomegaly.Bowel sounds heard. LEGS: No edema. no swelling PSYCHIATRY: Alert and oriented X3, mood and affect normal. NERVOUS SYSTEM: Cranial N 2-12 grossly normal. Diffuse weakness No focal deficits. Strength and sensation grossly intact. Skin: no rash. No cellulitis. Bilateral plantar foot wounds dry. - Labs CBC & Chem 7: 06/26/19 06:24 06/26/19 06:24 Labs: Abnormal Lab Results - Last 24 Hours (Table) 06/25/19 06/25/19 06/26/19 Range/Units 17:02 21:20 06:24 WBC 18.6 H (3.8-10.6) k/uL MCV 76.6 L (80.0-100.0) fL MCH 24.3 L (25.0-35.0) pg RDW 17.4 H (11.5-15.5) % Neutrophils # 14.8 H (1.3-7.7) k/uL Sodium (137-145) mmol/L Chloride (98-107) mmol/L Glucose (74-99) mg/dL POC Glucose (mg/dL) 178 H 190 H (75-99) mg/dL 06/26/19 06/26/19 06/26/19 Range/Units 06:24 07:22 12:04 WBC (3.8-10.6) k/uL MCV (80.0-100.0) fL MCH (25.0-35.0) pg RDW (11.5-15.5) % Neutrophils # (1.3-7.7) k/uL Sodium 130 L (137-145) mmol/L Chloride 95 L (98-107) mmol/L Glucose 190 H (74-99) mg/dL POC Glucose (mg/dL) 218 H 167 H (75-99) mg/dL Microbiology - Last 24 Hours (Table) 06/25/19 10:41 Blood Culture - Preliminary Blood No Growth after 24 hours 06/25/19 10:48 Blood Culture - Preliminary Blood No Growth after 24 hours 06/25/19 06:47 Blood Culture - Preliminary Blood No Growth after 24 hours Assessment and Plan Assessment: Acute nausea vomiting and diarrhea, possible acute gastroenteritis, ruling out C. difficile colitis Sepsis, present on admission secondary to the above Leukocytosis secondary to the above Dehydration, secondary to the above, present on admission Hyponatremia, hypovolemic Chronic kidney disease stage III Diabetes mellitus CAD, history of ID Chronic intermittent asthma, stable COPD, stable Degenerative joint disease with gait dysfunction with history of falls Recently hospitalized with bilateral diabetic foot wounds with secondary cellulitis Chronic hypoxic respiratory failure, wears 2 L nasal cannula at home History of nicotine dependence Morbid obesity, BMI 42.6 Plan: Continue on current medication regime ,monitoring and symptomatic treatment. Gentle IV fluid hydration. Questran between meals .Stool for C. diff pending. Maintained on oral vancomycin as per infectious disease. The impression and plan of care has been dictated as directed. : I performed a history and examination of this patient, discussed the same with the dictator. I agree with the dictator's note ,documented as a scribe. Any additional findings or plans will be noted.
[2019-06-26] MEDS: ATORVASTATIN 10 MG TAB PO SCH (20:27)
[2019-06-26] MEDS: MELATONIN 5 MG TABLET PO SCH (20:27)
[2019-06-26] MEDS: MONTELUKAST 10 MG TAB PO SCH (20:28)
[2019-06-26 20:36] LABS: Glucose,Whole Blood 167 mg/dL (75-99)
[2019-06-27] MEDS: RANOLAZINE 500 MG TAB.ER.12H PO SCH ×2 (01:49→14:54)
[2019-06-27] MEDS: ONDANSETRON 4 MG/2 ML VIAL IVP PRN ×2 (04:25→19:52)
[2019-06-27] MEDS: HYDROmorphone 0.5 MG/0.5 ML SYRINGE IVP PRN ×4 (04:26→19:51)
[2019-06-27] MEDS: VANCOMYCIN ORAL SOLUTION 250 MG/5 ML BOTTLE PO SCH ×3 (05:53→17:32)
--- NOTE | 2019-06-27 06:23 | PN ---
PROGRESS NOTE DATE OF SERVICE: 06/26/2019. REASON FOR FOLLOWUP: Colitis, likely C difficile. INTERVAL HISTORY: The patient is currently afebrile, has been breathing comfortably. The patient overall diarrhea has improved. Still some nausea but no vomiting. Still complaining of abdominal pain though decreased intensity. No chest pain, shortness of breath or cough. PHYSICAL EXAMINATION: Blood pressure 151/79 with a pulse of 87, temperature 98.2. She is 94% on 2 L nasal cannula. General description is an elderly female who is lying in bed in no distress. Respiratory system: Unlabored breathing. Clear to auscultation anteriorly. Heart S1, S2. Regular rate and rhythm. Abdomen soft, not as tender as it was yesterday. No guarding or rigidity. LABS: Hemoglobin is 12.5, white count down to 18.6. Creatinine is normal. Stool for C diff requested. Not done as apparently the patient did have any further bowel movement. DIAGNOSTIC IMPRESSION AND PLAN: Patient admitted to hospital with acute nausea, vomiting, diarrhea and abdominal pain in this patient who did have evidence of colitis, possible likely C difficile. We are waiting for the stool for C diff to finalize. The patient is covered with oral vancomycin and Questran to continue to monitor clinical course closely. Continue supportive care. MMODL / IJN: [id number] /
[2019-06-27] MEDS: SYMBICORT 80-4.5 MCG INHALER INHALATION SCH ×2 (07:00→21:18)
[2019-06-27] MEDS: IPRATROPIUM 0.5 MG/2.5 ML NEBU INHALATION SCH ×4 (07:00→21:19)
[2019-06-27 07:47] LABS: Glucose,Whole Blood 174 mg/dL (75-99)
[2019-06-27 07:50] LABS: Anisocytosis Slight; Basophils # (A) 0.1 k/uL (0-0.2); Basophils % (A) 1 %; Eosinophils # (A) 0.2 k/uL (0-0.7); Eosinophils % (A) 1 %; HCT 37.9 % (34.0-46.0); HGB 11.6 gm/dL (11.4-16.0); Lymphocytes % (A) 20 %; MCH 23.7 pg (25.0-35.0); MCHC 30.7 g/dL (31.0-37.0); MCV 77.2 fL (80.0-100.0); Mean Platelet Volume 7.1; Microcytosis Slight; Monocytes # (A) 0.8 k/uL (0-1.0); Monocytes % (A) 5 %; Neutrophils # (A) 10.6 k/uL (1.3-7.7); Neutrophils % (A) 72 %; Platelet Count 288 k/uL (150-450); RBC 4.91 m/uL (3.80-5.40); RDW 17.9 % (11.5-15.5); WBC 14.9 k/uL (3.8-10.6)
[2019-06-27] MEDS: metroNIDAZOLE-NS PMX 500 MG in SALINE 1 100ML.BAG IVPB SCH (07:50)
[2019-06-27] MEDS: INSULIN ASPART (NovoLOG) 100 UNIT/ML VIAL SQ SCH ×4 (07:50→20:57)
[2019-06-27 07:58] LABS: African American GFR (CKD) >90 (>60 ml/min/1.73 sqM); Anion Gap 8 mmol/L; Blood Urea Nitrogen 9 mg/dL (7-17); Calcium 8.8 mg/dL (8.4-10.2); Carbon Dioxide 27 mmol/L (22-30); Chloride 93 mmol/L (98-107); Glucose 153 mg/dL (74-99); Non-African American GFR(CKD) 89 (>60 ml/min/1.73 sqM); Potassium 4.6 mmol/L (3.5-5.1); Sodium 128 mmol/L (137-145)
[2019-06-27] MEDS: OMEGA PO SCH (09:04)
[2019-06-27] MEDS: NON FORMULARY DRUG (Vitamin B Complex [Vitamin B Complex] 1 CAP) PO SCH (09:04)
[2019-06-27] MEDS: FATTY ACIDS PO SCH (09:04)
[2019-06-27] MEDS: CHOLESTYRAMINE (WITH SUGAR) 4 GM PACKET PO SCH ×2 (09:10→20:48)
[2019-06-27] MEDS: ISOSORBIDE MONONITRATE ER 60 MG TAB.ER.24H PO SCH (09:24)
[2019-06-27] MEDS: CLOPIDOGREL 75 MG TAB PO SCH (09:24)
[2019-06-27] MEDS: METOPROLOL TARTRATE 50 MG TAB PO SCH ×2 (09:24→20:48)
[2019-06-27] MEDS: ASPIRIN 81 MG PO SCH (09:24)
[2019-06-27] MEDS: amLODIPine 10 MG TAB PO SCH (09:24)
[2019-06-27] MEDS: CHOLECALCIFEROL 1,000 UNIT TAB PO SCH (09:24)
[2019-06-27] MEDS: SUCRALFATE 1 GM TAB PO SCH ×4 (09:24→20:49)
[2019-06-27] MEDS: FAMOTIDINE 20 MG TAB PO SCH (09:24)
[2019-06-27] MEDS: LISINOPRIL 20 MG TAB PO SCH (09:24)
[2019-06-27] MEDS: DICYCLOMINE 10 MG CAP PO SCH (09:24)
[2019-06-27] MEDS: HEPARIN SODIUM,PORCINE 5,000 UNIT/ML 1 ML VIAL SQ SCH ×2 (09:25→20:49)
[2019-06-27 11:37] LABS: Glucose,Whole Blood 198 mg/dL (75-99)
[2019-06-27] MEDS: SODIUM CHLORIDE 0.9% 1,000 ML IV SCH ×2 (14:55→19:12)
--- NOTE | 2019-06-27 16:38 | P.PN ---
Subjective Progress Note Date: 06/27/19 This is 73-year-old female admitted with sepsis, nausea vomiting, diarrhea, possibly colitis, ruling out C. difficile and multiple other medical issues. Maintained on oral vancomycin as per ID. CT of abdomen and pelvis suggestive of colitis. Afebrile, WBC trending down to 18.6. Maintained on gentle IV fluid hydration, sodium improving, up to 130. Good Diet intake, consuming 75%. Fluctuating nausea. No diarrhea. Complains of abdominal cramping. Chest x-ray reports unchanged, mild interstitial edema or atypical pneumonia. [id number] reports nausea with exertion, declining to work with PT. No emesis, No flatus, no diarrhea, no bowel movement. Currently Denies abdominal pain, but talks of fluctuating bilateral lower abdominal cramping. Afebrile. Denies chest pain, palpitations or shortness of breath. Maintained on oral vancomycin. Diet intake fluctuates from 0-75%. Objective - Vital Signs Vital signs: Vital Signs Temp 98.4 F 06/27/19 07:00 Pulse 84 06/27/19 07:00 Resp 16 06/27/19 07:00 BP 130/78 06/27/19 07:00 Pulse Ox 92 L 06/27/19 07:00 Intake & Output 06/26/19 06/27/19 06/27/19 18:59 06:59 18:59 Intake Total 600 825 0 Balance 600 825 0 Intake: IV 600 825 Sodium Chloride 0.9% 1, 600 825 000 ml @ 75 mls/hr IV . [id number] [facility] Rx#:[id number] Oral 0 Other: Voiding Method Toilet Toilet # Voids 1 2 1 # Bowel Movements 0 - Exam PHYSICAL EXAM: VITAL SIGNS: [As above] GENERAL: Sitting up in bed, no acute distress, conversing HEENT: Conjunctivae normal. eyes normal. NECK: No JVD. No thyroid enlargement. No LNs CARDIOVASCULAR: S1, S2 regular.. No murmur RESPIRATION: Nonlabored, Breath sounds diminished in the bases. No rhonchi or crackles. No wheezing. ABDOMEN: Soft, nontender, nondistended, bilateral lower quadrant tenderness, No guarding. no masses palpable. Bowel sounds heard. LEGS: No edema. no swelling PSYCHIATRY: Alert and oriented X3, mood and affect normal. NERVOUS SYSTEM: Cranial N 2-12 grossly normal. Diffuse weakness No focal deficits. Strength and sensation grossly intact. Skin: no rash. No cellulitis. Bilateral plantar foot wounds dry. - Labs CBC & Chem 7: 06/27/19 06:37 06/27/19 06:37 Labs: Abnormal Lab Results - Last 24 Hours (Table) 06/26/19 06/26/19 06/27/19 Range/Units 17:05 20:35 06:37 WBC 14.9 H (3.8-10.6) k/uL MCV 77.2 L (80.0-100.0) fL MCH 23.7 L (25.0-35.0) pg MCHC 30.7 L (31.0-37.0) g/dL RDW 17.9 H (11.5-15.5) % Neutrophils # 10.6 H (1.3-7.7) k/uL Sodium (137-145) mmol/L Chloride (98-107) mmol/L Glucose (74-99) mg/dL POC Glucose (mg/dL) 182 H 167 H (75-99) mg/dL 06/27/19 06/27/19 06/27/19 Range/Units 06:37 07:44 11:35 WBC (3.8-10.6) k/uL MCV (80.0-100.0) fL MCH (25.0-35.0) pg MCHC (31.0-37.0) g/dL RDW (11.5-15.5) % Neutrophils # (1.3-7.7) k/uL Sodium 128 L (137-145) mmol/L Chloride 93 L (98-107) mmol/L Glucose 153 H (74-99) mg/dL POC Glucose (mg/dL) 174 H 198 H (75-99) mg/dL Microbiology - Last 24 Hours (Table) 06/25/19 10:48 Blood Culture - Preliminary Blood No Growth after 48 hours 06/25/19 10:41 Blood Culture - Preliminary Blood No Growth after 48 hours 06/25/19 06:47 Blood Culture - Preliminary Blood No Growth after 48 hours Assessment and Plan Assessment: Acute nausea vomiting and diarrhea, possible acute gastroenteritis, ruling out C. difficile colitis Sepsis, present on admission secondary to the above Leukocytosis secondary to the above Dehydration, secondary to the above, present on admission Hyponatremia, hypovolemic Chronic kidney disease stage III Diabetes mellitus CAD, history of [place] Chronic intermittent asthma, stable COPD, stable Degenerative joint disease with gait dysfunction with history of falls Recently hospitalized with bilateral diabetic foot wounds with secondary cellulitis Chronic hypoxic respiratory failure, wears 2 L nasal cannula at home History of nicotine dependence Morbid obesity, BMI 42.6 Plan: Continue on current medication regime ,monitoring and symptomatic treatment. Gentle IV fluid hydration. Questran between meals .Stool for C. diff pending. Maintained on oral vancomycin as per infectious disease. Surgery consulted. The impression and plan of care has been dictated as directed. : I performed a history and examination of this patient, discussed the same with the dictator. I agree with the dictator's note ,documented as a scribe. Any additional findings or plans will be noted.
[2019-06-27 16:51] LABS: Glucose,Whole Blood 174 mg/dL (75-99)
[2019-06-27] MEDS: MELATONIN 5 MG TABLET PO SCH (20:48)
[2019-06-27] MEDS: ATORVASTATIN 10 MG TAB PO SCH (20:49)
[2019-06-27] MEDS: MONTELUKAST 10 MG TAB PO SCH (20:49)
[2019-06-27 20:59] LABS: Glucose,Whole Blood 190 mg/dL (75-99)
--- NOTE | 2019-06-27 23:27 | PN ---
PROGRESS NOTE DATE OF SERVICE: 06/27/2019 REASON FOR FOLLOWUP: Colitis, likely C difficile. INTERVAL HISTORY: The patient is currently afebrile. The patient has been breathing comfortably. The patient denies having any diarrhea. Her abdominal pain has improved. The patient denies having any chest pain or shortness of breath or cough. PHYSICAL EXAMINATION: On examination, her blood pressure is 130/78 with a pulse of 84, temperature 98.4. She is 95% on room air. General description is an elderly female up in the bed in no distress. RESPIRATORY SYSTEM: Unlabored breathing. Clear to auscultation anteriorly. HEART: S1, S2. Regular rate and rhythm. ABDOMEN: Soft. No tenderness. LABS: Hemoglobin is 11.6, white count 14.9, and creatinine 0.66. DIAGNOSTIC IMPRESSION AND PLAN: Patient presented to hospital with intractable diarrhea, abdominal pain and vomiting with CT suggestive of colitis, highly suspicion for C difficile colitis. Unfortunately, stool studies were not collected. Patient to continue with vancomycin and was to increase probiotic and yogurt intake and continue with supportive care. MMODL / IJN: [id number] /
[2019-06-28] MEDS: VANCOMYCIN ORAL SOLUTION 250 MG/5 ML BOTTLE PO SCH ×5 (01:41→23:24)
[2019-06-28] MEDS: RANOLAZINE 500 MG TAB.ER.12H PO SCH ×2 (02:21→17:10)
[2019-06-28] MEDS: ONDANSETRON 4 MG/2 ML VIAL IVP PRN ×2 (04:19→17:12)
[2019-06-28] MEDS: HYDROmorphone 0.5 MG/0.5 ML SYRINGE IVP PRN ×4 (04:20→20:05)
[2019-06-28] MEDS: SYMBICORT 80-4.5 MCG INHALER INHALATION SCH ×2 (06:49→20:26)
[2019-06-28] MEDS: IPRATROPIUM 0.5 MG/2.5 ML NEBU INHALATION SCH ×4 (06:50→20:26)
[2019-06-28 07:14] LABS: Glucose,Whole Blood 187 mg/dL (75-99)
[2019-06-28] MEDS: INSULIN ASPART (NovoLOG) 100 UNIT/ML VIAL SQ SCH ×4 (07:32→22:02)
[2019-06-28 07:59] LABS: Anisocytosis Slight; Basophils # (A) 0.1 k/uL (0-0.2); Basophils % (A) 0 %; Eosinophils # (A) 0.2 k/uL (0-0.7); Eosinophils % (A) 1 %; HCT 37.5 % (34.0-46.0); HGB 11.7 gm/dL (11.4-16.0); Lymphocytes # (A) 3.1 k/uL (1.0-4.8); Lymphocytes % (A) 23 %; MCH 23.7 pg (25.0-35.0); MCV 76.3 fL (80.0-100.0); Mean Platelet Volume 6.9; Microcytosis Slight; Monocytes # (A) 0.7 k/uL (0-1.0); Monocytes % (A) 6 %; Neutrophils # (A) 9.1 k/uL (1.3-7.7); Neutrophils % (A) 68 %; Platelet Count 306 k/uL (150-450); RBC 4.92 m/uL (3.80-5.40); RDW 17.7 % (11.5-15.5); WBC 13.3 k/uL (3.8-10.6)
[2019-06-28 08:01] LABS: ALT 16 U/L (4-34); AST 20 U/L (14-36); African American GFR (CKD) >90 (>60 ml/min/1.73 sqM); Albumin 3.2 g/dL (3.5-5.0); Alkaline Phosphatase 78 U/L (38-126); Anion Gap 6 mmol/L; Blood Urea Nitrogen 8 mg/dL (7-17); Calcium 8.5 mg/dL (8.4-10.2); Carbon Dioxide 28 mmol/L (22-30); Chloride 92 mmol/L (98-107); Glucose 164 mg/dL (74-99); Non-African American GFR(CKD) 88 (>60 ml/min/1.73 sqM); Potassium 4.3 mmol/L (3.5-5.1); Sodium 126 mmol/L (137-145); Total Bilirubin 0.4 mg/dL (0.2-1.3); Total Protein 5.8 g/dL (6.3-8.2)
[2019-06-28] MEDS ORDERED: POLYETHYLENE GLYCOL 3350 17 GM POWD.PACK PO PRN (08:22)
[2019-06-28] MEDS: HEPARIN SODIUM,PORCINE 5,000 UNIT/ML 1 ML VIAL SQ SCH ×2 (10:17→22:05)
[2019-06-28] MEDS: FAMOTIDINE 20 MG TAB PO SCH (10:18)
[2019-06-28] MEDS: ISOSORBIDE MONONITRATE ER 60 MG TAB.ER.24H PO SCH (10:18)
[2019-06-28] MEDS: LISINOPRIL 20 MG TAB PO SCH (10:18)
[2019-06-28] MEDS: CLOPIDOGREL 75 MG TAB PO SCH (10:18)
[2019-06-28] MEDS: SUCRALFATE 1 GM TAB PO SCH ×4 (10:18→22:02)
[2019-06-28] MEDS: amLODIPine 10 MG TAB PO SCH (10:19)
[2019-06-28] MEDS: CHOLECALCIFEROL 1,000 UNIT TAB PO SCH (10:19)
[2019-06-28] MEDS: METOPROLOL TARTRATE 50 MG TAB PO SCH ×2 (10:19→22:03)
[2019-06-28] MEDS: ASPIRIN 81 MG PO SCH (10:19)
[2019-06-28] MEDS: DICYCLOMINE 10 MG CAP PO SCH (10:19)
[2019-06-28] MEDS: OMEGA PO SCH (10:20)
[2019-06-28] MEDS: NON FORMULARY DRUG (Vitamin B Complex [Vitamin B Complex] 1 CAP) PO SCH (10:20)
[2019-06-28] MEDS: FATTY ACIDS PO SCH (10:20)
[2019-06-28] MEDS: CHOLESTYRAMINE (WITH SUGAR) 4 GM PACKET PO SCH ×2 (10:44→22:05)
[2019-06-28 11:42] LABS: Glucose,Whole Blood 229 mg/dL (75-99)
[2019-06-28 13:43] VITALS: BMI 42.5
[2019-06-28 16:47] LABS: Glucose,Whole Blood 165 mg/dL (75-99)
[2019-06-28] MEDS: SODIUM CHLORIDE 0.9% 1,000 ML IV SCH ×2 (17:10→22:36)
--- NOTE | 2019-06-28 17:57 | P.PN ---
Subjective Progress Note Date: 06/28/19 This is 73-year-old female admitted with sepsis, nausea vomiting, diarrhea, possibly colitis, ruling out C. difficile and multiple other medical issues. Maintained on oral vancomycin as per ID. CT of abdomen and pelvis suggestive of colitis. Afebrile, WBC trending down to 18.6. Maintained on gentle IV fluid hydration, sodium improving, up to 130. Good Diet intake, consuming 75%. Fluctuating nausea. No diarrhea. Complains of abdominal cramping. Chest x-ray reports unchanged, mild interstitial edema or atypical pneumonia. reports nausea with exertion, declining to work with PT. No emesis, No flatus, no diarrhea, no bowel movement. Currently Denies abdominal pain, but talks of fluctuating bilateral lower abdominal cramping. Afebrile. Denies chest pain, palpitations or shortness of breath. Maintained on oral vancomycin. Diet intake fluctuates from 0-75%. 06/28/2019 patient reports she had been up with physical therapy, tolerated well with no nausea or vomiting. Diffuse abdominal pain continues. Surgical consult in place, recommendations pending. Afebrile, WBC trending down to 13.3. Blood cultures reporting no growth at 72 hours. Objective - Vital Signs Vital signs: Vital Signs Temp 98.9 F 06/28/19 15:00 Pulse 72 06/28/19 15:00 Resp 17 06/28/19 15:00 BP 150/66 06/28/19 15:00 Pulse Ox 91 L 06/28/19 15:00 Intake & Output 06/27/19 06/28/19 06/28/19 18:59 06:59 18:59 Intake Total 0 Output Total 500 Balance 0 -500 Weight 123.377 kg Intake: Oral 0 Output: Urine 500 Other: Voiding Method Toilet Toilet # Voids 1 2 1 # Bowel Movements 0 - Exam PHYSICAL EXAM: VITAL SIGNS: [As above] GENERAL: Sitting up in bed, no acute distress, conversing HEENT: Conjunctivae normal. eyes normal. NECK: No JVD. No thyroid enlargement. No LNs CARDIOVASCULAR: S1, S2 regular.. No murmur RESPIRATION: Nonlabored, Breath sounds diminished in the bases. No rhonchi or crackles. No wheezing. ABDOMEN: Soft, nontender, nondistended, diffuse tenderness, No guarding. no masses palpable. Bowel sounds heard. LEGS: No edema. no swelling PSYCHIATRY: Alert and oriented X3, mood and affect normal. NERVOUS SYSTEM: Cranial N 2-12 grossly normal. Diffuse weakness No focal deficits. Strength and sensation grossly intact. Skin: no rash. No cellulitis. Bilateral plantar foot wounds dry. - Labs CBC & Chem 7: 06/28/19 06:38 06/28/19 06:38 Labs: Abnormal Lab Results - Last 24 Hours (Table) 06/27/19 06/28/19 06/28/19 Range/Units 20:50 06:38 06:38 WBC 13.3 H (3.8-10.6) k/uL MCV 76.3 L (80.0-100.0) fL MCH 23.7 L (25.0-35.0) pg RDW 17.7 H (11.5-15.5) % Neutrophils # 9.1 H (1.3-7.7) k/uL Sodium 126 L (137-145) mmol/L Chloride 92 L (98-107) mmol/L Glucose 164 H (74-99) mg/dL POC Glucose (mg/dL) 190 H (75-99) mg/dL Total Protein 5.8 L (6.3-8.2) g/dL Albumin 3.2 L (3.5-5.0) g/dL 06/28/19 06/28/19 06/28/19 Range/Units 07:12 11:41 16:45 WBC (3.8-10.6) k/uL MCV (80.0-100.0) fL MCH (25.0-35.0) pg RDW (11.5-15.5) % Neutrophils # (1.3-7.7) k/uL Sodium (137-145) mmol/L Chloride (98-107) mmol/L Glucose (74-99) mg/dL POC Glucose (mg/dL) 187 H 229 H 165 H (75-99) mg/dL Total Protein (6.3-8.2) g/dL Albumin (3.5-5.0) g/dL Microbiology - Last 24 Hours (Table) 06/25/19 10:48 Blood Culture - Preliminary Blood No Growth after 72 hours 06/25/19 10:41 Blood Culture - Preliminary Blood No Growth after 72 hours 06/25/19 06:47 Blood Culture - Preliminary Blood No Growth after 72 hours Assessment and Plan Assessment: Acute nausea vomiting and diarrhea, possible acute gastroenteritis, ruling out C. difficile colitis Sepsis, present on admission secondary to the above Leukocytosis secondary to the above Dehydration, secondary to the above, present on admission Hyponatremia, hypovolemic Chronic kidney disease stage III Diabetes mellitus CAD, history of [place] Chronic intermittent asthma, stable COPD, stable Degenerative joint disease with gait dysfunction with history of falls Recently hospitalized with bilateral diabetic foot wounds with secondary cellulitis Chronic hypoxic respiratory failure, wears 2 L nasal cannula at home History of nicotine dependence Morbid obesity, BMI 42.6 Plan: Continue on current medication regime ,monitoring and symptomatic treatment. Surgical consult in place, recommendations pending. Patient requesting different ECF at discharge. Discharge planning in progress for tomorrow. The impression and plan of care has been dictated as directed. : I performed a history and examination of this patient, discussed the same with the dictator. I agree with the dictator's note ,documented as a scribe. Any additional findings or plans will be noted.
[2019-06-28 21:03] LABS: Glucose,Whole Blood 235 mg/dL (75-99)
[2019-06-28] MEDS: MELATONIN 5 MG TABLET PO SCH (22:02)
[2019-06-28] MEDS: ATORVASTATIN 10 MG TAB PO SCH (22:03)
[2019-06-28] MEDS: MONTELUKAST 10 MG TAB PO SCH (22:03)
--- NOTE | 2019-06-28 22:43 | PN ---
PROGRESS NOTE DATE OF SERVICE: 06/28/2019. REASON FOR FOLLOWUP: Colitis, possible C difficile colitis. INTERVAL HISTORY: The patient is currently afebrile. She has been breathing comfortably. Denies having any chest pain or shortness of breath or cough. No nausea, no vomiting. Abdominal pain has slightly decreased in intensity. She did not have any bowel movement. PHYSICAL EXAMINATION: Blood pressure 152/73 with a pulse of 72, temperature 98.5. She is 93% on 2 L nasal cannula. General description is an elderly female lying in bed in no distress. RESPIRATORY SYSTEM: Unlabored breathing. Clear to auscultation anteriorly. HEART: S1, S2. Regular rate and rhythm. ABDOMEN: Soft. No tenderness. LABS: White count is down to 13,000. DIAGNOSTIC IMPRESSION AND PLAN: Patient with presentation to hospital acute nausea, vomiting and diarrhea and concern for colitis, likely Clostridium difficile, in this patient who has been exposed to antibiotic recently. Patient has clinically responded to vancomycin. That will continue. We will discontinue the Questran and monitor clinical course closely. MMODL / IJN: [id number] /
[2019-06-29] MEDS: RANOLAZINE 500 MG TAB.ER.12H PO SCH ×2 (01:35→14:41)
[2019-06-29] MEDS: VANCOMYCIN ORAL SOLUTION 250 MG/5 ML BOTTLE PO SCH ×2 (05:52→12:03)
[2019-06-29 07:13] LABS: Glucose,Whole Blood 171 mg/dL (75-99)
[2019-06-29] MEDS: INSULIN ASPART (NovoLOG) 100 UNIT/ML VIAL SQ SCH ×2 (07:36→12:02)
[2019-06-29] MEDS: ONDANSETRON 4 MG/2 ML VIAL IVP PRN (07:38)
--- NOTE | 2019-06-29 07:48 | P.GSCN ---
History of Present Illness Consult date: 06/28/19 History of present illness: CHIEF COMPLAINT: Abdominal pain HISTORY OF PRESENT ILLNESS: 73-year-old female who presented to the emergency room a chief complaint of abdominal pain and diarrhea. Patient states she was constipated prior to coming to the hospital and received some [id number] medication to help her have a bowel movement. She reports she had some episodes of diarrhea after that. She denies having any diarrhea or bowel movement at all since coming to the hospital. She reports lower quadrant abdominal pain. Tolerating diaper reports decreased intake. Denies nausea or vomiting. PAST MEDICAL HISTORY: See list. PAST SURGICAL HISTORY: See list. SOCIAL HISTORY: No illicit drug use. REVIEW OF SYSTEMS: CONSTITUTIONAL: Denies fever or chills. HEENT: Denies blurred vision, vision changes, or eye pain. Denies hemoptysis CARDIOVASCULAR: Denies chest pain or pressure. RESPIRATORY: No shortness of breath. GASTROINTESTINAL: Refer to [facility] for pertinent findings HEMATOLOGIC: Denies bleeding disorders. GENITOURINARY: Denies any blood in urine. SKIN: Denies pruitis. Denies rash. PHYSICAL EXAM: VITAL SIGNS: Reviewed. GENERAL: Well-developed in no acute distress. HEENT: No sclera icterus. Extraocular movements grossly intact. Moist buccal mucosa. Head is atraumatic, normocephalic. ABDOMEN: Soft. Nondistended. Mild tenderness with palpation to bilateral lower quadrants. NEUROLOGIC: Alert and oriented. Cranial nerves II through XII grossly intact. LABORATORY DATA: WBC 13.3. Hemoglobin 11.7. Platelet count 306. IMAGING: CT abdomen and pelvis: Diffuse left-sided colitis. Uncomplicated diverticulosis of the left side of the colon. ASSESSMENT: 1. Abdominal pain 2. Left-sided colitis 3. Diverticulosis PLAN: Continue antibiotics per infectious disease. Continue diet as tolerated. No surgical regimen recommended. We will continue to follow and make recommendations as needed. Thank you for this consultation Nurse practitioner note has been reviewed by physician. Signing provider agrees with the documented findings, assessment, and plan of care. Past Medical History Past Medical History: Asthma, Coronary Artery Disease (CAD), Heart Failure, COPD, Diabetes Mellitus, Hyperlipidemia, Hypertension, Myocardial Infarction ([place]), Osteoarthritis (OA), Pneumonia, Renal Disease, Skin Disorder, Sleep Apnea/CPAP/BIPAP Additional Past Medical History / Comment(s): Pt recently admitted to [facility] on 06/14/19 with bilateral diabetic foot wounds with 2ndary cellulitis. Other hx: Pt states she recently has been told that she has some renal insufficiency, NIDDM type II, neuropathy bilateral feet, IRA with no device, home oxygen at 2L/NC at HS, RLS, diarrhea. Last Myocardial Infarction Date:: 2017 History of Any Multi-Drug Resistant Organisms: None Reported Past Surgical History: Appendectomy, Breast Surgery, Cholecystectomy, Heart Catheterization, Heart Catheterization With Stent Additional Past Surgical History / Comment(s): PCI with stents, R lung thoracotomy/decortication for empyema, L breast benign bx, colonoscopy Past Anesthesia/Blood Transfusion Reactions: No Reported Reaction Additional Past Anesthesia/Blood Transfusion Reaction / Comm: severe claustrophobia Date of Last Stent Placement:: 11/30/2017 Past Psychological History: No Psychological Hx Reported Additional Psychological History / Comment(s): Severe claustrophobia. Pt resides alone in her home. Currently at [facility] for rehab, 06/25/19. She has 14 stair steps to get up to her bathroom/bedroom. She is established with [facility] home care. Her son, Frank, is assisting her with wound dressings on her bilateral feet. Smoking Status: Former smoker Past Alcohol Use History: None Reported Additional Past Alcohol Use History / Comment(s): STARTED SMOKING AGE 18 (1963) AND QUIT 1994. SMOKED 1 PPD. STATES SHE IS AN ALCOHOLIC AND QUIT DRINKING 29 yrs ago Past Drug Use History: None Reported - Past Family History Brother(s) Family Medical History: Cancer Father Additional Family Medical History / Comment(s): Father of a [place] at the age of 77yrs. Mother Family Medical History: Cancer Additional Family Medical History / Comment(s): Mother of a [place] at the age of 74yrs. Medications and Allergies Home Medications Medication Instructions Recorded Confirmed Type Cholecalciferol [Vitamin D3 (25 1,000 unit PO DAILY 02/26/15 06/25/19 History Mcg = 1000 Iu)] Simvastatin [Zocor] 20 mg PO HS 02/26/15 06/25/19 History Sucralfate [Carafate] 1 gm PO QID #120 tablet 03/04/15 06/25/19 Rx Clopidogrel [Plavix] 75 mg PO QAM 09/05/15 06/25/19 History Montelukast Sodium [Singulair] 10 mg PO HS #30 tab 10/25/15 06/25/19 Rx Nitroglycerin Sl Tabs [Nitrostat] 0.4 mg SUBLINGUAL Q5M PRN #0 tab 09/24/16 06/25/19 Rx Melatonin 5 mg PO HS 02/09/18 06/25/19 History Metoclopramide [Reglan] 10 mg PO QID PRN 02/09/18 06/25/19 History Metoprolol Tartrate [Lopressor] 50 mg PO BID 02/09/18 06/25/19 History Ranitidine HCl 300 mg PO DAILY 02/09/18 06/25/19 History Fluticasone/Umeclidin/Vilanter 1 puff INHALATION RT-DAILY 09/29/18 06/25/19 History [Trelestan Ellipta 100-62.5-25] Dawson-3 Fatty Acids [Dawson-3] 2,000 mg PO QAM 09/29/18 06/25/19 History Vitamin B Complex 1 cap PO DAILY 09/29/18 06/25/19 History rOPINIRole HCL [Requip] 1 mg PO QID 09/29/18 06/25/19 History Isosorbide Mononitrate ER [Imdur] 60 mg PO DAILY #30 tab.er.24h 11/17/18 06/25/19 Rx Dicyclomine [Bentyl] 10 mg PO DAILY 04/16/19 06/25/19 History Aspirin 81 mg PO DAILY chew 04/17/19 06/25/19 Rx amLODIPine [Norvasc] 10 mg PO QAM #30 tab 04/17/19 06/25/19 Rx Ranolazine [Ranolazine ER] 500 mg PO Q12H 06/13/19 06/25/19 History INSULIN LISPRO (HumaLOG) [humaLOG] See Protocol SQ ACHS 06/21/19 06/25/19 History Lisinopril 40 mg PO DAILY 06/21/19 06/25/19 History Acetaminophen Tab [Tylenol] 500 mg PO Q6HR PRN tab 06/23/19 06/25/19 Rx Amoxic-Pot Clav 875-125Mg 1 tab PO Q12HR 5 Days #20 tablet 06/23/19 06/25/19 Rx [Augmentin 875-125] HYDROcodone/APAP 7.5-325MG [[place] 1 tab PO QID PRN #12 tab 06/23/19 06/25/19 Rx 7.5-325] Allergies Allergy/AdvReac Type Severity Reaction Status Date / Time adhesive tape AdvReac bruises,"paper Verified 06/25/19 09:43 tape is ok" albuterol AdvReac Rapid Verified 06/25/19 09:43 Heart Rate stress test injection Allergy Anaphylaxis Uncoded 06/25/19 06:43 sun dried tomatoes Allergy lip Uncoded 06/25/19 06:43 swelling Surgical - Exam Vital Signs Temp Pulse Resp BP Pulse Ox 100.1 F H 109 H 18 193/79 90 L 06/25/19 06:39 06/25/19 06:39 06/25/19 06:39 06/25/19 06:39 06/25/19 06:39 Results - Labs 06/28/19 06:38 06/28/19 06:38 Abnormal Lab Results - Last 24 Hours (Table) 06/27/19 06/27/19 06/27/19 Range/Units 11:35 16:49 20:50 WBC (3.8-10.6) k/uL MCV (80.0-100.0) fL MCH (25.0-35.0) pg RDW (11.5-15.5) % Neutrophils # (1.3-7.7) k/uL Sodium (137-145) mmol/L Chloride (98-107) mmol/L Glucose (74-99) mg/dL POC Glucose (mg/dL) 198 H 174 H 190 H (75-99) mg/dL Total Protein (6.3-8.2) g/dL Albumin (3.5-5.0) g/dL 06/28/19 06/28/19 06/28/19 Range/Units 06:38 06:38 07:12 WBC 13.3 H (3.8-10.6) k/uL MCV 76.3 L (80.0-100.0) fL MCH 23.7 L (25.0-35.0) pg RDW 17.7 H (11.5-15.5) % Neutrophils # 9.1 H (1.3-7.7) k/uL Sodium 126 L (137-145) mmol/L Chloride 92 L (98-107) mmol/L Glucose 164 H (74-99) mg/dL POC Glucose (mg/dL) 187 H (75-99) mg/dL Total Protein 5.8 L (6.3-8.2) g/dL Albumin 3.2 L (3.5-5.0) g/dL Microbiology - Last 24 Hours (Table) 06/25/19 06:47 Blood Culture - Preliminary Blood No Growth after 72 hours 06/25/19 10:48 Blood Culture - Preliminary Blood No Growth after 48 hours 06/25/19 10:41 Blood Culture - Preliminary Blood No Growth after 48 hours Diabetes panel 06/28/19 Range/Units 06:38 Sodium 126 L (137-145) mmol/L Potassium 4.3 (3.5-5.1) mmol/L Chloride 92 L (98-107) mmol/L Carbon Dioxide 28 (22-30) mmol/L BUN 8 (7-17) mg/dL Creatinine 0.68 (0.52-1.04) mg/dL Glucose 164 H (74-99) mg/dL Calcium 8.5 (8.4-10.2) mg/dL AST 20 (14-36) U/L ALT 16 (4-34) U/L Alkaline Phosphatase 78 (38-126) U/L Total Protein 5.8 L (6.3-8.2) g/dL Albumin 3.2 L (3.5-5.0) g/dL Calcium panel 06/28/19 Range/Units 06:38 Calcium 8.5 (8.4-10.2) mg/dL Albumin 3.2 L (3.5-5.0) g/dL Pituitary panel 06/28/19 Range/Units 06:38 Sodium 126 L (137-145) mmol/L Potassium 4.3 (3.5-5.1) mmol/L Chloride 92 L (98-107) mmol/L Carbon Dioxide 28 (22-30) mmol/L BUN 8 (7-17) mg/dL Creatinine 0.68 (0.52-1.04) mg/dL Glucose 164 H (74-99) mg/dL Calcium 8.5 (8.4-10.2) mg/dL Adrenal panel 06/28/19 Range/Units 06:38 Sodium 126 L (137-145) mmol/L Potassium 4.3 (3.5-5.1) mmol/L Chloride 92 L (98-107) mmol/L Carbon Dioxide 28 (22-30) mmol/L BUN 8 (7-17) mg/dL Creatinine 0.68 (0.52-1.04) mg/dL Glucose 164 H (74-99) mg/dL Calcium 8.5 (8.4-10.2) mg/dL Total Bilirubin 0.4 (0.2-1.3) mg/dL AST 20 (14-36) U/L ALT 16 (4-34) U/L Alkaline Phosphatase 78 (38-126) U/L Total Protein 5.8 L (6.3-8.2) g/dL Albumin 3.2 L (3.5-5.0) g/dL
[2019-06-29 07:52] VITALS: BP 171/74; RESP 17; TEMP 99
[2019-06-29 08:24] LABS: Anisocytosis Slight; Basophils % (A) 0 %; Eosinophils # (A) 0.2 k/uL (0-0.7); Eosinophils % (A) 1 %; HCT 37.8 % (34.0-46.0); HGB 11.8 gm/dL (11.4-16.0); Lymphocytes # (A) 2.5 k/uL (1.0-4.8); Lymphocytes % (A) 19 %; MCH 23.6 pg (25.0-35.0); MCHC 31.3 g/dL (31.0-37.0); MCV 75.4 fL (80.0-100.0); Mean Platelet Volume 6.8; Microcytosis Moderate; Monocytes # (A) 0.7 k/uL (0-1.0); Monocytes % (A) 5 %; Neutrophils # (A) 9.9 k/uL (1.3-7.7); Neutrophils % (A) 74 %; Platelet Count 312 k/uL (150-450); RBC 5.01 m/uL (3.80-5.40); RDW 17.7 % (11.5-15.5); WBC 13.5 k/uL (3.8-10.6)
[2019-06-29 08:35] LABS: African American GFR (CKD) >90 (>60 ml/min/1.73 sqM); Anion Gap 10 mmol/L; Blood Urea Nitrogen 8 mg/dL (7-17); Calcium 8.6 mg/dL (8.4-10.2); Carbon Dioxide 25 mmol/L (22-30); Chloride 91 mmol/L (98-107); Glucose 170 mg/dL (74-99); Non-African American GFR(CKD) 89 (>60 ml/min/1.73 sqM); Potassium 4.3 mmol/L (3.5-5.1); Sodium 126 mmol/L (137-145)
[2019-06-29] MEDS: DICYCLOMINE 10 MG CAP PO SCH (08:46)
[2019-06-29] MEDS: LISINOPRIL 20 MG TAB PO SCH (08:46)
[2019-06-29] MEDS: ASPIRIN 81 MG PO SCH (08:46)
[2019-06-29] MEDS: amLODIPine 10 MG TAB PO SCH (08:46)
[2019-06-29] MEDS: ISOSORBIDE MONONITRATE ER 60 MG TAB.ER.24H PO SCH (08:46)
[2019-06-29] MEDS: CLOPIDOGREL 75 MG TAB PO SCH (08:46)
[2019-06-29] MEDS: OMEGA PO SCH (08:47)
[2019-06-29] MEDS: FAMOTIDINE 20 MG TAB PO SCH (08:47)
[2019-06-29] MEDS: CHOLECALCIFEROL 1,000 UNIT TAB PO SCH (08:47)
[2019-06-29] MEDS: HEPARIN SODIUM,PORCINE 5,000 UNIT/ML 1 ML VIAL SQ SCH (08:47)
[2019-06-29] MEDS: NON FORMULARY DRUG (Vitamin B Complex [Vitamin B Complex] 1 CAP) PO SCH (08:47)
[2019-06-29] MEDS: FATTY ACIDS PO SCH (08:47)
[2019-06-29] MEDS: SUCRALFATE 1 GM TAB PO SCH ×3 (08:47→17:22)
[2019-06-29] MEDS: HYDROmorphone 0.5 MG/0.5 ML SYRINGE IVP PRN (08:47)
[2019-06-29] MEDS: METOPROLOL TARTRATE 50 MG TAB PO SCH (08:47)
[2019-06-29] MEDS: SYMBICORT 80-4.5 MCG INHALER INHALATION SCH (08:54)
[2019-06-29] MEDS: IPRATROPIUM 0.5 MG/2.5 ML NEBU INHALATION SCH ×3 (08:55→15:12)
--- NOTE | 2019-06-29 10:38 | P.DS ---
Providers Date of admission: 06/25/19 08:41 Expected date of discharge: 06/29/19 Attending physician: Medardo Grande Consults: 06/25/19 14:08 Consult Physician Routine Consulting Provider: Joanne Perez Consult Reason/Comments: c diff Do you want consulting provider notified?: Yes 06/27/19 12:28 Consult Physician Routine Consulting Provider: Gino Santacruz Consult Reason/Comments: abdominal pain Do you want consulting provider notified?: Yes Primary care physician: [place] [facility] Course: Final Diagnoses: Acute nausea vomiting and diarrhea, possible acute gastroenteritis, possible left-sided colitis, C. difficile colitisculture pending Sepsis, present on admission secondary to the above, resolved Leukocytosis secondary to the above Dehydration, secondary to the above, present on admission Hyponatremia, hypovolemic Chronic kidney disease stage III Diabetes mellitus CAD, history of [place] Chronic intermittent asthma, stable COPD, stable Degenerative joint disease with gait dysfunction with history of falls Recently hospitalized with bilateral diabetic foot wounds with secondary cellulitis Chronic hypoxic respiratory failure, wears 2 L nasal cannula at home History of nicotine dependence Morbid obesity, BMI 42.6 Hospital course: This is 73-year-old female admitted with sepsis, nausea vomiting, diarrhea, possibly colitis, ruling out C. difficile and multiple other medical issues. Maintained on oral vancomycin as per ID. CT of abdomen and pelvis suggestive of colitis. Afebrile, WBC trending down to 18.6. Maintained on gentle IV fluid hydration, sodium improving, up to 130. Good Diet intake, consuming 75%. Fluctuating nausea. No diarrhea. Complains of abdominal cramping. Chest x-ray reports unchanged, mild interstitial edema or atypical pneumonia. reports nausea with exertion, declining to work with PT. No emesis, No flatus, no diarrhea, no bowel movement. Currently Denies abdominal pain, but talks of fluctuating bilateral lower abdominal cramping. Afebrile. Denies chest pain, palpitations or shortness of breath. Maintained on oral vancomycin. Diet intake fluctuates from 0-75%. 06/28/2019 patient reports she had been up with physical therapy, tolerated well with no nausea or vomiting. Diffuse abdominal pain continues. Surgical consult in place, recommendations pending. Afebrile, WBC trending down to 13.3. Blood cultures reporting no growth at 72 hours. Evaluated by surgery, no surgical intervention recommended at this time. C. difficile culture are pending. Patient will be discharged to [facility] in a stable condition with guarded prognosis, pending clearance and final DC recommendations from surgery and infectious disease. EXAM: GENERAL: A&OX3,NAD CARDIOVASCULAR: S1, S2 regular.. No murmur RESPIRATION: Nonlabored, Breath sounds diminished in the bases. ABDOMEN: Soft, nontender, nondistended, no tenderness, No guarding. no masses palpable. Bowel sounds heard. NERVOUS SYSTEM: Cranial N 2-12 grossly normal. Diffuse weakness No focal deficits. The impression and plan of care has been dictated as directed. : I performed a history and examination of this patient, discussed the same with the dictator. I agree with the dictator's note ,documented as a scribe. Any additional findings or plans will be noted. Patient Condition at Discharge: Stable Plan - Discharge Summary Discharge Rx Participant: No New Discharge Prescriptions: Continue Simvastatin [Zocor] 20 mg PO HS Cholecalciferol [Vitamin D3 (25 Mcg = 1000 Iu)] 1,000 unit PO DAILY Sucralfate [Carafate] 1 gm PO QID #120 tablet Clopidogrel [Plavix] 75 mg PO QAM Montelukast Sodium [Singulair] 10 mg PO HS #30 tab Nitroglycerin Sl Tabs [Nitrostat] 0.4 mg SUBLINGUAL Q5M PRN #0 tab PRN Reason: Chest Pain Metoprolol Tartrate [Lopressor] 50 mg PO BID Metoclopramide [Reglan] 10 mg PO QID PRN PRN Reason: Nausea Melatonin 5 mg PO HS Ranitidine HCl 300 mg PO DAILY Fluticasone/Umeclidin/Vilanter [Trelegy Ellipta 100-62.5-25] 1 puff INHALATION RT-DAILY [place]-3 Fatty Acids [[place]-3] 2,000 mg PO QAM rOPINIRole HCL [Requip] 1 mg PO QID Vitamin B Complex 1 cap PO DAILY Isosorbide Mononitrate ER [Imdur] 60 mg PO DAILY #30 tab.er.24h Dicyclomine [Bentyl] 10 mg PO DAILY Aspirin 81 mg PO DAILY chew amLODIPine [Norvasc] 10 mg PO QAM #30 tab Ranolazine [Ranolazine ER] 500 mg PO Q12H INSULIN LISPRO (HumaLOG) [humaLOG] See Protocol SQ ACHS Lisinopril 40 mg PO DAILY Acetaminophen Tab [Tylenol] 500 mg PO Q6HR PRN tab PRN Reason: Fever And/ Or Pain HYDROcodone/APAP 7.5-325MG [[place] 7.5-325] 1 tab PO QID PRN #12 tab PRN Reason: Moderate pain Discontinued Amoxic-Pot Clav 875-125Mg [Augmentin 875-125] 1 tab PO Q12HR 5 Days #20 tablet Discharge Medication List Cholecalciferol [Vitamin D3 (25 Mcg = 1000 Iu)] 1,000 unit PO DAILY 02/26/15 [History] Simvastatin [Zocor] 20 mg PO HS 02/26/15 [History] Sucralfate [Carafate] 1 gm PO QID #120 tablet 03/04/15 [Rx] Clopidogrel [Plavix] 75 mg PO QAM 09/05/15 [History] Montelukast Sodium [Singulair] 10 mg PO HS #30 tab 10/25/15 [Rx] Nitroglycerin Sl Tabs [Nitrostat] 0.4 mg SUBLINGUAL Q5M PRN #0 tab 09/24/16 [Rx] Melatonin 5 mg PO HS 02/09/18 [History] Metoclopramide [Reglan] 10 mg PO QID PRN 02/09/18 [History] Metoprolol Tartrate [Lopressor] 50 mg PO BID 02/09/18 [History] Ranitidine HCl 300 mg PO DAILY 02/09/18 [History] Fluticasone/Umeclidin/Vilanter [Trelegy Ellipta 100-62.5-25] 1 puff INHALATION RT-DAILY 09/29/18 [History] [place]-3 Fatty Acids [[place]-3] 2,000 mg PO QAM 09/29/18 [History] Vitamin B Complex 1 cap PO DAILY 09/29/18 [History] rOPINIRole HCL [Requip] 1 mg PO QID 09/29/18 [History] Isosorbide Mononitrate ER [Imdur] 60 mg PO DAILY #30 tab.er.24h 11/17/18 [Rx] Dicyclomine [Bentyl] 10 mg PO DAILY 04/16/19 [History] Aspirin 81 mg PO DAILY chew 04/17/19 [Rx] amLODIPine [Norvasc] 10 mg PO QAM #30 tab 04/17/19 [Rx] Ranolazine [Ranolazine ER] 500 mg PO Q12H 06/13/19 [History] INSULIN LISPRO (HumaLOG) [humaLOG] See Protocol SQ ACHS 06/21/19 [History] Lisinopril 40 mg PO DAILY 06/21/19 [History] Acetaminophen Tab [Tylenol] 500 mg PO Q6HR PRN tab 06/23/19 [Rx] HYDROcodone/APAP 7.5-325MG [[place] 7.5-325] 1 tab PO QID PRN #12 tab 06/29/19 [Rx] Follow up Appointment(s)/Referral(s): Medardo Grande MD [Primary Care Provider] - 3 Days Gino Santacruz MD [STAFF PHYSICIAN] - 1 Week Activity/Diet/Wound Care/Special Instructions: PH MEDI cbc,bmp in 3 days Antibiotics as per ID, C. diff culture pending
--- NOTE | 2019-06-29 11:07 | CDI ---
Documentation Clarification Form Date: 06/29/2019 10:55:38 AM From: Jennifer BalLermaDIAMOND stubbs, CCDS Admit Date: 06/25/2019 08:41:00 AM Patient Name: Lorelei Brand Visit Number: [id number] Discharge Date: ATTENTION: The Clinical Documentation Specialists (CDI) and [facility] Coding Staff appreciate your assistance in clarifying documentation. Please respond to the clarification below the line at the bottom and electronically sign. The CDI & [facility] Coding staff will review the response and follow-up if needed. Please note: Queries are made part of the Legal Health Record. If you have any questions, please contact the author of this message via ITS. Dr. Medardo Grande: Per the 06/29 Discharge Summary: "Complains of abdominal cramping. Chest x-ray reports unchanged, mild interstitial edema or atypical pneumonia." Referring to 06/26 CXR: "Mild diffuse interstitial prominence remains unchanged. This may be on the basis of very mild interstitial edema or atypical pneumonia." History/Risk Factors: Asthma, CAD, COPD, CHF, DM, Hypertension, DJD, Sleep apnea, SC & former smoker. Clinical Indicators: Presented to the ED on 06/25 with nausea, vomiting, diarrhea & abdominal discomfort. Diagnosed with Sepsis secondary to "likely" C Diff colitis per Infectious Disease & as stated in the discharge summary. Vital signs 06/25: T 100.1^, P 109^, R 18, BP 193/79, PO 90 RA to 90 4Lnc. LAB: WBC 21.7^, Neut 19.1^, Lactic Acid 1.5. Blood cultures x2 06/25: negative after 72 hrs. RAD: 06/25 CXR: Small infiltrate, right midlung. Cannot exclude small right effusion. 06/26 CXR: Mild interstitial edema or atypical pneumonia. Lung Assessment: 06/25: SOB, subsequent days: normal, non-labored Treatment 06/25: IV Zofran, IV fluid bolus x2, IV Rocephin, IV Flagyl, IV Levaquin, INH, Albuterol & Symbicort (ordered, not given.) In order to capture the severity of condition, please clarify if the condition signifies and you are treating for: Pneumonia is ruled out Viral Pneumonia, specify casual organism (if known) Healthcare Acquired Pneumonia/Pneumonia, unspecified Other, please specify Unable to determine (Last Revision: August 2017) MTDD
[2019-06-29 11:48] LABS: Glucose,Whole Blood 205 mg/dL (75-99)
[2019-06-29] MEDS: HYDROcodone/APAP 7.5-325MG 1 EACH TAB PO PRN (12:05)
--- NOTE | 2019-06-29 15:16 | P.PN ---
Subjective Progress Note Date: 06/29/19 CHIEF COMPLAINT: Abdominal pain HISTORY OF PRESENT ILLNESS: Patient examined at the bedside. She denies abdominal pain. Denies nausea or vomiting. She is tolerating diet. Passing flatus. Reports BM today. PHYSICAL EXAM: VITAL SIGNS: Reviewed. GENERAL: Well-developed in no acute distress. HEENT: No sclera icterus. Extraocular movements grossly intact. Moist buccal mucosa. Head is atraumatic, normocephalic. ABDOMEN: Soft. Nondistended. Nontender. NEUROLOGIC: Alert and oriented. Cranial nerves II through XII grossly intact. ASSESSMENT: 1. Abdominal pain 2. Left-sided colitis 3. Diverticulosis PLAN: Continue antibiotics per infectious disease. Continue diet as tolerated. No surgical regimen recommended. She is stable for discharge from a surgical standpoint. Nurse practitioner note has been reviewed by physician. Signing provider agrees with the documented findings, assessment, and plan of care. Objective - Vital Signs Vital signs: Vital Signs Temp 99 F 06/29/19 07:05 Pulse 82 06/29/19 12:36 Resp 17 06/29/19 07:05 BP 171/74 06/29/19 07:05 Pulse Ox 91 L 06/29/19 07:05 Intake & Output 06/28/19 06/29/19 06/29/19 18:59 06:59 18:59 Output Total 1 Balance -1 Weight 123.377 kg Output: Urine 1 Other: Voiding Method Toilet Toilet Toilet # Voids 1 1 1 # Bowel Movements 2 - Labs CBC & Chem 7: 06/29/19 07:26 06/29/19 07:26 Labs: Abnormal Lab Results - Last 24 Hours (Table) 06/28/19 06/28/19 06/29/19 Range/Units 16:45 21:02 07:10 WBC (3.8-10.6) k/uL MCV (80.0-100.0) fL MCH (25.0-35.0) pg RDW (11.5-15.5) % Neutrophils # (1.3-7.7) k/uL Sodium (137-145) mmol/L Chloride (98-107) mmol/L Glucose (74-99) mg/dL POC Glucose (mg/dL) 165 H 235 H 171 H (75-99) mg/dL 02/06/29/19 06/29/19 Range/Units 07:26 07:26 11:47 WBC 13.5 H (3.8-10.6) k/uL MCV 75.4 L (80.0-100.0) fL MCH 23.6 L (25.0-35.0) pg RDW 17.7 H (11.5-15.5) % Neutrophils # 9.9 H (1.3-7.7) k/uL Sodium 126 L (137-145) mmol/L Chloride 91 L (98-107) mmol/L Glucose 170 H (74-99) mg/dL POC Glucose (mg/dL) 205 H (75-99) mg/dL Microbiology - Last 24 Hours (Table) 06/25/19 10:48 Blood Culture - Preliminary Blood No Growth after 96 hours 06/25/19 10:41 Blood Culture - Preliminary Blood No Growth after 96 hours 06/25/19 06:47 Blood Culture - Preliminary Blood No Growth after 96 hours
[2019-06-29 15:24] VITALS: PULSE 80
--- NOTE | 2019-06-29 15:50 | PN ---
PROGRESS NOTE DATE OF SERVICE: 06/29/2019 REASON FOR FOLLOWUP: Colitis, possibly infectious. INTERVAL HISTORY: The patient is currently afebrile. The patient has been feeling better, breathing comfortably. The patient's abdominal pain has improved. Denies having any nausea, no vomiting. The patient did have soft bowel movement with no blood or mucus in the stool. PHYSICAL EXAMINATION: Blood pressure 171/74 with a pulse of 81, temperature 99. She is 91% on room air. General description is an elderly female lying in bed in no distress. RESPIRATORY SYSTEM: Unlabored breathing. Clear to auscultation anteriorly. HEART: S1, S2. Regular rate and rhythm. ABDOMEN: Soft. No tenderness. LABS: White count of 13.5. Stool for C difficile came back negative. DIAGNOSTIC IMPRESSION AND PLAN: Patient admitted to hospital with acute nausea, vomiting and diarrhea in this patient whose CT did show evidence of colitis. Plan at this point is to finish therapy with oral Flagyl 500 mg p.o. q.8 hours, as the patient's white count apparently did improve IV Flagyl, and that will cover other pathogens besides the C difficile. Monitor clinical course closely. MMODL / IJN: [id number] /
--- NOTE | 2019-06-30 05:34 | DS ---
DISCHARGE SUMMARY ADDITION TO THE DISCHARGE SUMMARY: Please add to the discharge summary: Community-acquired pneumonia. MMODL / IJN: [id number] /
== END 2019-06-29 18:13 | disposition home or self-care (01) | DRG 871 ==
LOC: EC 06:36 → 4SSUR 08:41
PROVIDERS: ADMIT Family Medicine; ATTEND Family Medicine
DX: A41.9 Sepsis, unspecified organism (principal); J18.9 Pneumonia, unspecified organism; Z68.41 Body mass index [BMI] 40.0-44.9, adult; E87.1 Hypo-osmolality and hyponatremia; J96.11 Chronic respiratory failure with hypoxia; A04.72 Enterocolitis due to Clostridium difficile, not specified as recurrent; I13.0 Hypertensive heart and chronic kidney disease with heart failure and stage 1 through stage 4 chronic kidney disease, or unspecified chronic kidney disease; J44.0 Chronic obstructive pulmonary disease with (acute) lower respiratory infection; L97.919 Non-pressure chronic ulcer of unspecified part of right lower leg with unspecified severity; L97.929 Non-pressure chronic ulcer of unspecified part of left lower leg with unspecified severity; M19.90 Unspecified osteoarthritis, unspecified site; N18.3 Chronic kidney disease, stage 3 (moderate); E11.22 Type 2 diabetes mellitus with diabetic chronic kidney disease; E78.5 Hyperlipidemia, unspecified; I25.10 Atherosclerotic heart disease of native coronary artery without angina pectoris; I50.9 Heart failure, unspecified; K59.00 Constipation, unspecified; E86.0 Dehydration; J45.20 Mild intermittent asthma, uncomplicated; R26.9 Unspecified abnormalities of gait and mobility; K57.90 Diverticulosis of intestine, part unspecified, without perforation or abscess without bleeding; G25.81 Restless legs syndrome; E86.1 Hypovolemia; E11.622 Type 2 diabetes mellitus with other skin ulcer; E66.01 Morbid (severe) obesity due to excess calories; I25.2 Old myocardial infarction; Z99.89 Dependence on other enabling machines and devices; Z90.89 Acquired absence of other organs; Z98.890 Other specified postprocedural states; Z91.81 History of falling; Z79.02 Long term (current) use of antithrombotics/antiplatelets; Z79.899 Other long term (current) drug therapy; Z79.82 Long term (current) use of aspirin; Z87.01 Personal history of pneumonia (recurrent); Z90.49 Acquired absence of other specified parts of digestive tract; Z87.891 Personal history of nicotine dependence; Z82.49 Family history of ischemic heart disease and other diseases of the circulatory system; Z95.5 Presence of coronary angioplasty implant and graft; Z91.013 Allergy to seafood; Z88.8 Allergy status to other drugs, medicaments and biological substances; Z91.048 Other nonmedicinal substance allergy status
CPT/HCPCS: 36415; 71046; 74177; 80048; 80053; 81001; 83605; 83690; 85025; 87040; 87324; 87502; 94640; 96361; 96374; 96375; 99285

== ENCOUNTER 2019-07-07 11:56 | Inpatient (IN) | payer MEDICARE, OTHER ==
[2019-07-07 12:33] LABS: Glucose,Whole Blood 242 mg/dL (75-99)
[2019-07-07] MEDS ORDERED: PANTOPRAZOLE 40 MG/10 ML VIAL IVP STA (12:37)
[2019-07-07] MEDS ORDERED: HYDROmorphone 1 MG/ML 1 ML SYRINGE IVP STA ×2 (12:37→15:30)
[2019-07-07] MEDS ORDERED: ONDANSETRON 4 MG/2 ML VIAL IVP STA (12:37)
[2019-07-07] MEDS ORDERED: SODIUM CHLORIDE 0.9% 1,000 ML IV STA ×2 (12:37)
[2019-07-07] MEDS ORDERED: LABETALOL 5 MG/ML VIAL MDV IVP STA (12:54)
[2019-07-07] MEDS ORDERED: ACETAMINOPHEN TAB 500 MG TAB PO STA (12:55)
--- NOTE | 2019-07-07 12:55 | ED ---
Abdominal Pain HPI - General Chief Complaint: Abdominal Pain Stated Complaint: Abdominal Pain Time Seen by Provider: 07/07/19 12:21 Source: EMS, RN notes reviewed, old records reviewed Mode of arrival: EMS Limitations: no limitations - History of Present Illness Initial Comments: 73 -year-old female presents today for evaluation for nausea, weakness, w orsening abdominal pain. [facility] [place] She was recently treated at this hospital for colitis and pneumonia. She is complaining of some generalized abdominal pain worsening over the last 3-4 days. She reports that she was treated with Flagyl for colitis. At that time patient's C. diff testing was negative. She had consults to surgery and infectious disease at that time. She states she has a poor appetite from this. She reports that she's also been having some diarrhea. She denies any changes in urination. She does feel nauseated but denies vomiting. - Related Data Home Medications Medication Instructions Recorded Confirmed Cholecalciferol [Vitamin D3 (25 1,000 unit PO DAILY 02/26/15 06/25/19 Mcg = 1000 Iu)] Simvastatin [Zocor] 20 mg PO HS 02/26/15 06/25/19 Clopidogrel [Plavix] 75 mg PO QAM 09/05/15 06/25/19 Melatonin 5 mg PO HS 02/09/18 06/25/19 Metoclopramide [Reglan] 10 mg PO QID PRN 02/09/18 06/25/19 Metoprolol Tartrate [Lopressor] 50 mg PO BID 02/09/18 06/25/19 Ranitidine HCl 300 mg PO DAILY 02/09/18 06/25/19 Fluticasone/Umeclidin/Vilanter 1 puff INHALATION RT-DAILY 09/29/18 06/25/19 [Trel[place]an Ellipta 100-62.5-25] Jonancy-3 Fatty Acids [Jonancy-3] 2,000 mg PO QAM 09/29/18 06/25/19 Vitamin B Complex 1 cap PO DAILY 09/29/18 06/25/19 rOPINIRole HCL [Requip] 1 mg PO QID 09/29/18 06/25/19 Dicyclomine [Bentyl] 10 mg PO DAILY 04/16/19 06/25/19 Ranolazine [Ranolazine ER] 500 mg PO Q12H 06/13/19 06/25/19 INSULIN LISPRO (HumaLOG) [humaLOG] See Protocol SQ ACHS 06/21/19 06/25/19 Lisinopril 40 mg PO DAILY 06/21/19 06/25/19 Previous Rx's Medication Instructions Recorded Sucralfate [Carafate] 1 gm PO QID #120 tablet 03/04/15 Montelukast Sodium [Singulair] 10 mg PO HS #30 tab 10/25/15 Nitroglycerin Sl Tabs [Nitrostat] 0.4 mg SUBLINGUAL Q5M PRN #0 tab 09/24/16 Isosorbide Mononitrate ER [Imdur] 60 mg PO DAILY #30 tab.er.24h 11/17/18 Aspirin 81 mg PO DAILY chew 04/17/19 amLODIPine [Norvasc] 10 mg PO QAM #30 tab 04/17/19 Acetaminophen Tab [Tylenol] 500 mg PO Q6HR PRN tab 06/23/19 HYDROcodone/APAP 7.5-325MG [[place] 1 tab PO QID PRN #12 tab 06/29/19 7.5-325] metroNIDAZOLE [Flagyl] 500 mg PO TID #30 tab 06/29/19 Allergies Allergy/AdvReac Type Severity Reaction Status Date / Time adhesive tape AdvReac bruises,"paper Verified 07/07/19 12:07 tape is ok" albuterol AdvReac Rapid Verified 07/07/19 12:07 Heart Rate stress test injection Allergy Anaphylaxis Uncoded 07/07/19 12:07 sun dried tomatoes Allergy lip Uncoded 07/07/19 12:07 swelling Review of Systems ROS Statement: Those systems with pertinent positive or pertinent negative responses have been documented in the HPI. ROS Other: All systems not noted in ROS Statement are negative. Past Medical History Past Medical History: Asthma, Coronary Artery Disease (CAD), Heart Failure, COPD, Diabetes Mellitus, Hyperlipidemia, Hypertension, Myocardial Infarction (VA), Osteoarthritis (OA), Pneumonia, Renal Disease, Skin Disorder, Sleep Apnea/CPAP/BIPAP Additional Past Medical History / Comment(s): Pt recently admitted to [facility] on 06/14/19 with bilateral diabetic foot wounds with 2ndary cellulitis. Other hx: Pt states she recently has been told that she has some renal insufficiency, NIDDM type II, neuropathy bilateral feet, IRA with no device, home oxygen at 2L/NC at HS, RLS, diarrhea. Last Myocardial Infarction Date:: 2017 History of Any Multi-Drug Resistant Organisms: None Reported Past Surgical History: Appendectomy, Breast Surgery, Cholecystectomy, Heart Catheterization, Heart Catheterization With Stent Additional Past Surgical History / Comment(s): PCI with stents, R lung thoracotomy/decortication for empyema, L breast benign bx, colonoscopy Past Anesthesia/Blood Transfusion Reactions: No Reported Reaction Additional Past Anesthesia/Blood Transfusion Reaction / Comment(s): severe claustrophobia Date of Last Stent Placement:: 11/30/2017 Past Psychological History: No Psychological Hx Reported Smoking Status: Former smoker Past Alcohol Use History: None Reported Past Drug Use History: None Reported - Past Family History Brother(s) Family Medical History: Cancer Father Additional Family Medical History / Comment(s): Father of a VA at the age of 77yrs. Mother Family Medical History: Cancer Additional Family Medical History / Comment(s): Mother of a VA at the age of 74yrs. General Exam - General Exam Comments Initial Comments: This is a 73-year-old female. Alert and oriented. Patient appears in no significant distress. Limitations: no limitations General appearance: alert, in no apparent distress Head exam: Present: atraumatic, normocephalic, normal inspection Eye exam: Present: normal appearance, PERRL, EOMI. Absent: scleral icterus, conjunctival injection, periorbital swelling ENT exam: Present: normal exam, mucous membranes moist Neck exam: Present: normal inspection Respiratory exam: Present: normal lung sounds bilaterally Cardiovascular Exam: Present: regular rate, normal rhythm, normal heart sounds. Absent: systolic murmur, diastolic murmur, rubs, gallop, clicks GI/Abdominal exam: Present: soft, tenderness (Diffuse abdominal tenderness), normal bowel sounds. Absent: distended, guarding, rebound, rigid Extremities exam: Present: normal inspection, full ROM, normal capillary refill. Absent: tenderness, pedal edema, joint swelling, calf tenderness Back exam: Present: normal inspection Neurological exam: Present: alert, oriented X3, CN II-XII intact Psychiatric exam: Present: normal affect, normal mood Course Vital Signs 07/07/19 07/07/19 07/07/19 12:01 12:04 14:00 Temperature 99.8 F H Pulse Rate 72 81 Respiratory 16 21 Rate Blood Pressure 198/92 204/81 O2 Sat by Pulse 100 100 Oximetry 07/07/19 14:21 Temperature Pulse Rate Respiratory Rate Blood Pressure 169/75 O2 Sat by Pulse Oximetry Medical Decision Making - Medical Decision Making 73-[facility] presents for generalized weakness worsening abdominal pain. General low-grade temperature 99.8 and was hypertensive. Patient has had no bowel movements or vomiting and emergency department. She does have some minor abdominal discomfort to palpation. Patient at this time has hyponatremia with a sodium level of 123. She is given fluid boluses. Fay ent was given Dilaudid, Zofran and Protonix. She is given labetalol for blood pressure. On reevaluation patient's previous charts she had been on Unasyn and Augmentin prior to being on Flagyl. I discussed at this time repeating checking for C. diff stool sample. Patient's case was discussed with Dr. Butler from discussed the case with Dr. Ramsay. Once a consult to GI and Dr. Oquendo. - Lab Data Result diagrams: 07/07/19 13:25 07/07/19 13:25 Lab Results 07/07/19 07/07/19 07/07/19 Range/Units 12:32 13:25 13:25 WBC 10.1 (3.8-10.6) k/uL RBC 5.13 (3.80-5.40) m/uL Hgb 12.4 (11.4-16.0) gm/dL Hct 38.7 (34.0-46.0) % MCV 75.4 L (80.0-100.0) fL MCH 24.1 L (25.0-35.0) pg MCHC 32.0 (31.0-37.0) g/dL RDW 17.7 H (11.5-15.5) % Plt Count 366 (150-450) k/uL Neutrophils % 76 % Lymphocytes % 18 % Monocytes % 3 % Eosinophils % 1 % Basophils % 0 % Neutrophils # 7.7 (1.3-7.7) k/uL Lymphocytes # 1.8 (1.0-4.8) k/uL Monocytes # 0.3 (0-1.0) k/uL Eosinophils # 0.1 (0-0.7) k/uL Basophils # 0.0 (0-0.2) k/uL Anisocytosis Slight Microcytosis Moderate PT (9.0-12.0) sec INR (<1.2) APTT (22.0-30.0) sec Sodium 123 L (137-145) mmol/L Potassium 4.6 (3.5-5.1) mmol/L Chloride 90 L (98-107) mmol/L Carbon Dioxide 22 (22-30) mmol/L Anion Gap 11 mmol/L BUN 15 (7-17) mg/dL Creatinine 0.72 (0.52-1.04) mg/dL Est GFR (CKD-EPI)AfAm >90 (>60 ml/min/1.73 sqM) Est GFR (CKD-EPI)NonAf 85 (>60 ml/min/1.73 sqM) Glucose 225 H (74-99) mg/dL POC Glucose (mg/dL) 242 H (75-99) mg/dL POC Glu Technical Specialist Marjan Saldana Plasma Lactic Acid Mesfin (0.7-2.0) mmol/L Calcium 8.9 (8.4-10.2) mg/dL Total Bilirubin 0.5 (0.2-1.3) mg/dL AST 40 H (14-36) U/L ALT 32 (4-34) U/L Alkaline Phosphatase 86 (38-126) U/L Troponin I (0.000-0.034) ng/mL Total Protein 6.4 (6.3-8.2) g/dL Albumin 3.5 (3.5-5.0) g/dL Amylase 31 (30-110) U/L Lipase 58 (23-300) U/L Urine Color Urine Appearance (Clear) Urine pH (5.0-8.0) Ur Specific [place] (1.001-1.035) Urine Protein (Negative) Urine Glucose (UA) (Negative) Urine Ketones (Negative) Urine Blood (Negative) Urine Nitrite (Negative) Urine Bilirubin (Negative) Urine Urobilinogen (<2.0) mg/dL Ur Leukocyte Esterase (Negative) Urine WBC (0-5) /hpf Ur Squamous Epith Cells (0-4) /hpf Urine Bacteria (None) /hpf Urine Mucus (None) /hpf Influenza Type A RNA (Not Detectd) Influenza Type B (PCR) (Not Detectd) 07/07/19 07/07/19 07/07/19 Range/Units 13:25 13:25 13:30 WBC (3.8-10.6) k/uL RBC (3.80-5.40) m/uL Hgb (11.4-16.0) gm/dL Hct (34.0-46.0) % MCV (80.0-100.0) fL MCH (25.0-35.0) pg MCHC (31.0-37.0) g/dL RDW (11.5-15.5) % Plt Count (150-450) k/uL Neutrophils % % Lymphocytes % % Monocytes % % Eosinophils % % Basophils % % Neutrophils # (1.3-7.7) k/uL Lymphocytes # (1.0-4.8) k/uL Monocytes # (0-1.0) k/uL Eosinophils # (0-0.7) k/uL Basophils # (0-0.2) k/uL Anisocytosis Microcytosis PT (9.0-12.0) sec INR (<1.2) APTT (22.0-30.0) sec Sodium (137-145) mmol/L Potassium (3.5-5.1) mmol/L Chloride (98-107) mmol/L Carbon Dioxide (22-30) mmol/L Anion Gap mmol/L BUN (7-17) mg/dL Creatinine (0.52-1.04) mg/dL Est GFR (CKD-EPI)AfAm (>60 ml/min/1.73 sqM) Est GFR (CKD-EPI)NonAf (>60 ml/min/1.73 sqM) Glucose (74-99) mg/dL POC Glucose (mg/dL) (75-99) mg/dL POC Glu Technical Specialist ID Plasma Lactic Acid Mesfin 2.0 (0.7-2.0) mmol/L Calcium (8.4-10.2) mg/dL Total Bilirubin (0.2-1.3) mg/dL AST (14-36) U/L ALT (4-34) U/L Alkaline Phosphatase (38-126) U/L Troponin I <0.012 (0.000-0.034) ng/mL Total Protein (6.3-8.2) g/dL Albumin (3.5-5.0) g/dL Amylase (30-110) U/L Lipase (23-300) U/L Urine Color Urine Appearance (Clear) Urine pH (5.0-8.0) Ur Specific [place] (1.001-1.035) Urine Protein (Negative) Urine Glucose (UA) (Negative) Urine Ketones (Negative) Urine Blood (Negative) Urine Nitrite (Negative) Urine Bilirubin (Negative) Urine Urobilinogen (<2.0) mg/dL Ur Leukocyte Esterase (Negative) Urine WBC (0-5) /hpf Ur Squamous Epith Cells (0-4) /hpf Urine Bacteria (None) /hpf Urine Mucus (None) /hpf Influenza Type A RNA Not Detected (Not Detectd) Influenza Type B (PCR) Not Detected (Not Detectd) 07/07/19 07/07/19 Range/Units 14:07 14:15 WBC (3.8-10.6) k/uL RBC (3.80-5.40) m/uL Hgb (11.4-16.0) gm/dL Hct (34.0-46.0) % MCV (80.0-100.0) fL MCH (25.0-35.0) pg MCHC (31.0-37.0) g/dL RDW (11.5-15.5) % Plt Count (150-450) k/uL Neutrophils % % Lymphocytes % % Monocytes % % Eosinophils % % Basophils % % Neutrophils # (1.3-7.7) k/uL Lymphocytes # (1.0-4.8) k/uL Monocytes # (0-1.0) k/uL Eosinophils # (0-0.7) k/uL Basophils # (0-0.2) k/uL Anisocytosis Microcytosis PT 10.6 (9.0-12.0) sec INR 1.0 (<1.2) APTT 21.8 L (22.0-30.0) sec Sodium (137-145) mmol/L Potassium (3.5-5.1) mmol/L Chloride (98-107) mmol/L Carbon Dioxide (22-30) mmol/L Anion Gap mmol/L BUN (7-17) mg/dL Creatinine (0.52-1.04) mg/dL Est GFR (CKD-EPI)AfAm (>60 ml/min/1.73 sqM) Est GFR (CKD-EPI)NonAf (>60 ml/min/1.73 sqM) Glucose (74-99) mg/dL POC Glucose (mg/dL) (75-99) mg/dL POC Glu Technical Specialist ID Plasma Lactic Acid Mesfin (0.7-2.0) mmol/L Calcium (8.4-10.2) mg/dL Total Bilirubin (0.2-1.3) mg/dL AST (14-36) U/L ALT (4-34) U/L Alkaline Phosphatase (38-126) U/L Troponin I (0.000-0.034) ng/mL Total Protein (6.3-8.2) g/dL Albumin (3.5-5.0) g/dL Amylase (30-110) U/L Lipase (23-300) U/L Urine Color Light Yellow Urine Appearance Clear (Clear) Urine pH 7.0 (5.0-8.0) Ur Specific [place] 1.008 (1.001-1.035) Urine Protein 1+ H (Negative) Urine Glucose (UA) 3+ H (Negative) Urine Ketones 1+ H (Negative) Urine Blood Negative (Negative) Urine Nitrite Negative (Negative) Urine Bilirubin Negative (Negative) Urine Urobilinogen <2.0 (<2.0) mg/dL Ur Leukocyte Esterase Negative (Negative) Urine WBC <1 (0-5) /hpf Ur Squamous Epith Cells 2 (0-4) /hpf Urine Bacteria Rare H (None) /hpf Urine Mucus Rare H (None) /hpf Influenza Type A RNA (Not Detectd) Influenza Type B (PCR) (Not Detectd) 07/07/19 15:03 EKG performed at 1252 shows sinus rhythm with first-degree AV block. Otherwise normal EKG. Ventricular rate of 75 bpm. Verbal is 05/18/2013 milliseconds. QS ration is 96 most seconds pre-QT QTc is 424/473 ms. - Radiology Data Radiology results: report reviewed Chest x-ray is negative for any acute crit a primary process. KUB is negative for any acute process. Disposition Clinical Impression: Hyponatremia, Nausea & vomiting, Abdominal pain Disposition: ADMITTED IP TO THIS HOSP Condition: Stable Is patient prescribed a controlled substance at d/c from ED?: No Referrals: Medardo Grande MD [Primary Care Provider] - 1-2 days Time of Disposition: 15:35
[2019-07-07] MEDS ORDERED: IBUPROFEN IV 800 MG in SODIUM CHLORIDE 0.9% 250 ML IV ONE (12:56)
[2019-07-07 13:44] LABS: Anisocytosis Slight; Basophils % (A) 0 %; Eosinophils # (A) 0.1 k/uL (0-0.7); Eosinophils % (A) 1 %; HCT 38.7 % (34.0-46.0); HGB 12.4 gm/dL (11.4-16.0); Lymphocytes # (A) 1.8 k/uL (1.0-4.8); Lymphocytes % (A) 18 %; MCH 24.1 pg (25.0-35.0); MCV 75.4 fL (80.0-100.0); Mean Platelet Volume 7.3; Microcytosis Moderate; Monocytes # (A) 0.3 k/uL (0-1.0); Monocytes % (A) 3 %; Neutrophils # (A) 7.7 k/uL (1.3-7.7); Neutrophils % (A) 76 %; Platelet Count 366 k/uL (150-450); RBC 5.13 m/uL (3.80-5.40); RDW 17.7 % (11.5-15.5); WBC 10.1 k/uL (3.8-10.6)
[2019-07-07 13:57] LABS: ALT 32 U/L (4-34); AST 40 U/L (14-36); African American GFR (CKD) >90 (>60 ml/min/1.73 sqM); Albumin 3.5 g/dL (3.5-5.0); Alkaline Phosphatase 86 U/L (38-126); Amylase 31 U/L (30-110); Anion Gap 11 mmol/L; Blood Urea Nitrogen 15 mg/dL (7-17); Calcium 8.9 mg/dL (8.4-10.2); Carbon Dioxide 22 mmol/L (22-30); Chloride 90 mmol/L (98-107); Glucose 225 mg/dL (74-99); Non-African American GFR(CKD) 85 (>60 ml/min/1.73 sqM); Potassium 4.6 mmol/L (3.5-5.1); Sodium 123 mmol/L (137-145); Total Bilirubin 0.5 mg/dL (0.2-1.3); Total Protein 6.4 g/dL (6.3-8.2)
--- NOTE | 2019-07-07 14:07 | XR ---
EXAMINATION TYPE: XR chest 2V DATE OF EXAM: 07/07/2019 COMPARISON: Colitis abdominal pain vomiting INDICATION: 06/26/2019 TECHNIQUE: Frontal and lateral views of the chest are obtained. FINDINGS: The heart size is normal. The pulmonary vasculature is normal. The lungs are clear. IMPRESSION: 1. No acute pulmonary process.
--- NOTE | 2019-07-07 14:16 | XR ---
KUB HISTORY: Pain and vomiting Frontal KUB and 2 images correlated to prior CT dated 06/25/2019 Surgical clips are present in the right upper quadrant. Generative disc changes are present in the vi sualized spine. Lung bases are clear. There are vascular calcifications within the pelvis. No evident pneumoperitoneum or bowel obstruction. Oval areas of increased attenuation in the right lower quadra nt may be related to bowel content. IMPRESSION: No acute abnormality is evident. Additional findings above.
[2019-07-07 14:28] LABS: Appearance,Urine Clear (Clear); Bacteria,Urine Rare /hpf; Bilirubin,Urine Negative (Negative); Blood,Urine Negative (Negative); Color,Urine Light Yellow; Glucose,Urine (UA) 3+ (Negative); Ketones,Urine 1+ (Negative); Leukocyte Esterase,Urine Negative (Negative); Mucus,Urine Rare /hpf; Nitrite,Urine Negative (Negative); Protein,Urine 1+ (Negative); Specific Gravity,Urine 1.008 (1.001-1.035); Squamous Epithelial Cell,Urine 2 /hpf (0-4); Urobilinogen,Urine <2.0 mg/dL (<2.0); WBC,Urine <1 /hpf (0-5)
[2019-07-07 14:59] LABS: Partial Thromboplastin Time 21.8 sec (22.0-30.0); Prothrombin Time 10.6 sec (9.0-12.0)
[2019-07-07] MEDS ORDERED: HYDROmorphone 1 MG/ML 1 ML SYRINGE IVP PRN (15:36)
[2019-07-07] MEDS ORDERED: ACETAMINOPHEN TAB 325 MG TAB PO PRN (15:36)
[2019-07-07] MEDS ORDERED: HYDROmorphone 0.5 MG/0.5 ML SYRINGE IVP PRN (15:36)
[2019-07-07] MEDS ORDERED: NALOXONE 0.4 MG/ML 1 ML VIAL IV PRN (15:36)
[2019-07-07] MEDS ORDERED: IBUPROFEN 400 MG TAB PO PRN (15:36)
[2019-07-07] MEDS: ONDANSETRON 4 MG/2 ML VIAL IVP PRN (15:49)
[2019-07-07] MEDS: SODIUM CHLORIDE 0.9% 1,000 ML IV SCH (16:09)
[2019-07-07] MEDS ORDERED: ACETAMINOPHEN TAB 500 MG TAB PO PRN (16:28)
[2019-07-07 17:24] LABS: Glucose,Whole Blood 233 mg/dL (75-99)
[2019-07-07] MEDS: INSULIN ASPART (NovoLOG) 100 UNIT/ML VIAL SQ SCH ×2 (17:40→21:29)
[2019-07-07] MEDS: IOPAMIDOL CONTRAST (ORAL USE) VIAL PO PRN ×2 (17:40→18:25)
--- NOTE | 2019-07-07 19:54 | CT ---
EXAMINATION TYPE: CT abdomen pelvis w con DATE OF EXAM: 07/07/2019 COMPARISON: 06/25/2019 . HISTORY: abdominal pain CT DLP: 4.8 mGycm Automated exposure control for dose reduction was used. CONTRAST: Performed with IV Contrast, patient injected with 100 mL of Isovue 300. Multiple axial sections were obtained from the diaphragm to the floor the pelvis with oral and intrav enous contrast. FINDINGS: Lung bases are clear of infiltrate. There is no pleural effusion. Heart size is normal. There is no p ericardial effusion. There are clips from cholecystectomy. Liver spleen stomach pancreas appear corinne l. Bile ducts are not dilated. There is no adrenal mass. Kidneys show satisfactory contrast opacification. There is no hydronephrosi s. There is no retroperitoneal adenopathy. There are numerous diverticula in the sigmoid colon. There is no evidence of diverticulitis. There is no inguinal hernia. Bladder distends smoothly. There is n o free fluid in the pelvis. Appendix is not seen. No sign of thickened appendix. Small bowel pattern is normal. There is no ascites. There is no free air. There is no evidence of a bowel obstruction. Vertebra have normal alignment. Posterior elements are intact. Bony pelvis intact. IMPRESSION: There is some colonic diverticulosis without diverticulitis. No sign of acute abdomen and pelvis. Ath erosclerotic vascular disease. No adverse change compared to old exam.
[2019-07-07 20:16] LABS: Glucose,Whole Blood 173 mg/dL (75-99)
[2019-07-07] MEDS ORDERED: NON FORMULARY DRUG (Omeprazole [Omeprazole] 20 MG) PO SCH (21:00)
[2019-07-07] MEDS: MELATONIN 5 MG TABLET PO SCH (21:29)
[2019-07-07] MEDS: metroNIDAZOLE 500 MG TAB PO SCH (21:29)
[2019-07-07] MEDS: METOPROLOL TARTRATE 50 MG TAB PO SCH (21:29)
[2019-07-07] MEDS: MONTELUKAST 10 MG TAB PO SCH (21:29)
[2019-07-08 07:08] LABS: Glucose,Whole Blood 166 mg/dL (75-99)
[2019-07-08] MEDS: PANTOPRAZOLE 40 MG/10 ML VIAL IV SCH (08:09)
[2019-07-08] MEDS: ONDANSETRON 4 MG/2 ML VIAL IVP PRN (08:10)
[2019-07-08] MEDS: INSULIN ASPART (NovoLOG) 100 UNIT/ML VIAL SQ SCH ×4 (08:17→21:05)
[2019-07-08] MEDS: ASPIRIN 81 MG PO SCH (08:17)
[2019-07-08] MEDS: CLOPIDOGREL 75 MG TAB PO SCH (08:17)
[2019-07-08] MEDS: CHOLECALCIFEROL 1,000 UNIT TAB PO SCH (08:17)
[2019-07-08] MEDS: amLODIPine 10 MG TAB PO SCH (08:17)
[2019-07-08] MEDS: ISOSORBIDE MONONITRATE ER 60 MG TAB.ER.24H PO SCH (08:17)
[2019-07-08] MEDS: METOPROLOL TARTRATE 50 MG TAB PO SCH ×2 (08:18→21:05)
[2019-07-08] MEDS: metroNIDAZOLE 500 MG TAB PO SCH (08:18)
[2019-07-08] MEDS ORDERED: OMEGA PO SCH (09:00)
[2019-07-08] MEDS ORDERED: FATTY ACIDS PO SCH (09:00)
[2019-07-08] MEDS: SYMBICORT 80-4.5 MCG INHALER INHALATION SCH ×2 (09:22→20:14)
[2019-07-08] MEDS: IPRATROPIUM 0.5 MG/2.5 ML NEBU INHALATION SCH ×4 (09:22→20:14)
--- NOTE | 2019-07-08 10:04 | CONS ---
CONSULTATION DATE OF DICTATION: 07/08/2019 REASON FOR CONSULTATION: Epigastric pain, nausea, weakness for the last 3 days' duration. HISTORY OF PRESENT ILLNESS: This patient is a 73-year-old pleasant white female who is presently at [facility] undergoing rehab therapy. She was just discharged from the hospital a week ago, at which time she was admitted for possible C difficile colitis, though C difficile toxin was negative as well as pneumonia. All her symptoms started about 3 weeks ago when she had a fall at home and was admitted to the hospital with dehydration and subsequently diagnosed with pneumonia, treated with antibiotics and was discharged. She came back on July 01 with abdominal pain and diarrhea. C difficile was negative, but she was treated empirically with Flagyl and was discharged back to the senior care for rehab therapy on Flagyl and currently receiving it. For the last few days she started developing intense nausea, epigastric discomfort, decreased appetite, not feeling well, continued to have 3-4 loose bowel movements daily. No blood or mucus in the stool. She did not feel well despite getting Zofran and hence was brought back to the emergency room and now admitted to the hospital for further evaluation. Today she still has some epigastric discomfort. No emesis. She has been receiving IV Zofran every 8 hours and the nausea is much better. She had 3 loose watery bowel movements yesterday. No blood in the stool. MEDICATIONS: Medications at home include Zocor, Plavix, melatonin, Reglan, Lopressor, vitamin D3, Zantac, Bentyl, Humalog, lisinopril, and she just finished a course of Flagyl. ALLERGIES: ALBUTEROL, ADHESIVE TAPE. SOCIAL HISTORY: No smoking. No alcohol use. PAST MEDICAL HISTORY: Asthma, coronary artery disease, congestive heart failure, COPD, diabetes mellitus, hypertension, hyperlipidemia, coronary artery disease, degenerative joint disease, recent pneumonia. PAST SURGICAL HISTORY: Breast surgery, appendectomy, cholecystectomy, cardiac catheterization, PCI with stents, right lung thoracotomy, left breast biopsy, colonoscopy. FAMILY HISTORY: Father at age 77. Mother had some cancer. REVIEW OF SYSTEMS: CARDIOPULMONARY: She denies any chest pain or shortness of breath. GENITOURINARY: No dysuria or hematuria. MUSCULOSKELETAL: Unremarkable other than weakness. NEUROLOGY: Unremarkable. PSYCHIATRIC: Unremarkable. ENT/VISION: Unremarkable. CONSTITUTIONAL: Weight loss of 10 pounds. No fever, chills, night sweats. HEMATOLOGY: Unremarkable. ENDOCRINE: Unremarkable. PHYSICAL EXAMINATION: She appears comfortable. No apparent distress. Vital signs are stable. Blood pressure 149/79, temperature 98, pulse rate 62. HEENT examination unremarkable. Conjunctivae pink. Sclerae anicteric. Oral cavity no lesions. NECK: No JVD or lymph node enlargement. CHEST: Clear to auscultation. HEART: Regular rate and rhythm. ABDOMEN: Very benign. Bowel sounds are positive. No organomegaly. It was non-tender. EXTREMITIES: No pedal edema. SKIN: No rashes. NEUROLOGIC: Alert and oriented x3. No focal deficits. LABS: WBC 10.1, hemoglobin 12.4, platelets normal. Basic metabolic panel is within normal limits. Sodium was 123, potassium 4.6, chloride 90, CO2 22. BUN and creatinine normal. AST, ALT, T-bilirubin, alkaline phosphatase are within normal limits. Urinalysis is negative. Stool occult blood was negative. Repeat C difficile toxin yesterday was negative. IMPRESSION: 1. This is a lady who had 2 hospitalizations in the last one month, the first one with diabetic foot ulcers/pneumonia treated with antibiotics, and the last admission was for severe diarrhea, possible Clostridium difficile colitis, but C difficile toxin was negative. She was treated both times with antibiotics. The last one was with Flagyl. She was discharged to [facility]. While there she has been having persistent nausea with some epigastric discomfort, which she never had in the past. No history of peptic ulcer disease. No recent NSAID use. Most likely we are dealing with medication-related side effects, especially with the Flagyl. Doubt peptic ulcer disease. 2. Diarrhea for the last 2 weeks. C difficile toxin on two different occasions was negative. She is at present having 3-4 loose bowel movements daily. Repeat C difficile was negative yesterday. She just finished a course of Flagyl for 10 days and she was also treated with vancomycin during her last hospitalization. 3. Mild abdominal pain. CT of the abdomen done in the emergency room yesterday was unremarkable. 4. History of congestive heart failure/coronary artery disease. 5. Recent pneumonia, treated with antibiotics, and recent diabetic foot ulcer, treated with antibiotics. RECOMMENDATIONS: 1. Continue with Protonix 40 mg daily. 2. Zofran as needed. 3. Discontinue Flagyl. 4. clear liquids and advance diet as tolerated. 5. If she continues to have symptoms, then we will consider an endoscopic intervention during this hospitalization, but for now we will continue with conservative approach. Thank you for this consultation. ANTHONY / JIMENA: [id number] /
--- NOTE | 2019-07-08 10:49 | P.CONS ---
History of Present Illness - Reason for Consult Consult date: 07/07/19 colitis Requesting physician: Medardo Grande - Chief Complaint abdominal pain and nausea x 1 day - History of Present Illness Patient is a 73-year female who was recently admitted to this facility with the patient initially was treated for bilateral diabetic foot ulcer with second cellulitis with oral vancomycin after Augmentin with subsequent resolution of her cellulitis subsequently the patient was admitted to hospital with abdominal pain and diarrhea patient did have CT of abdominal pelvis last admission we did shows evidence of colitis with concern for likely C. difficile she was treated with oral vancomycin with subsequent resolution of her diarrhea and her white count normalized stool for C. difficile came back negative and the patient was discharged back to correction on oral Flagyl patient is now presenting to the hospital with a chief complaints of abdominal pain patient pain is mostly in the upper abdominal area more of a dull aching to sharp intensity could be a 5 out of 10 and no radiation the patient felt nauseated did mention overall resolution of her diarrhea at the patient did have soft bowel movement with no blood or mucus in the stool with the symptom had the patient has been evaluated by the ER physician on arrival to the ER the patient have low-grade fever of 99.8, the patient have a normal white count, patient did have stool for C. difficile which came back negative influenza serology is negative patient did have a acute abdominal series that was negative patient has been admitted to hospital effectively was consulted for colitis. Review of Systems Positive point has been mentioned HPI rest of the systems are negative. Past Medical History Past Medical History: Asthma, Coronary Artery Disease (CAD), Heart Failure, COPD, Diabetes Mellitus, Hyperlipidemia, Hypertension, Myocardial Infarction (MA), Osteoarthritis (OA), Pneumonia, Renal Disease, Skin Disorder, Sleep Apnea/CPAP/BIPAP Additional Past Medical History / Comment(s): Pt recently admitted to [facility] on 06/14/19 with bilateral diabetic foot wounds with 2ndary cellulitis. Other hx: Pt states she recently has been told that she has some renal insufficiency, NIDDM type II, neuropathy bilateral feet, IRA with no device, home oxygen at 2L/NC at HS, RLS, diarrhea. Last Myocardial Infarction Date:: 2017 History of Any Multi-Drug Resistant Organisms: None Reported Past Surgical History: Appendectomy, Breast Surgery, Cholecystectomy, Heart Catheterization, Heart Catheterization With Stent Additional Past Surgical History / Comment(s): PCI with stents, R lung thoracotomy/decortication for empyema, L breast benign bx, colonoscopy Past Anesthesia/Blood Transfusion Reactions: No Reported Reaction Additional Past Anesthesia/Blood Transfusion Reaction / Comm: severe claustrophobia Date of Last Stent Placement:: 11/30/2017 Past Psychological History: No Psychological Hx Reported Smoking Status: Former smoker Past Alcohol Use History: None Reported Past Drug Use History: None Reported - Past Family History Brother(s) Family Medical History: Cancer Father Additional Family Medical History / Comment(s): Father of a MA at the age of 77yrs. Mother Family Medical History: Cancer Additional Family Medical History / Comment(s): Mother of a MA at the age of 74yrs. Medications and Allergies Home Medications Medication Instructions Recorded Confirmed Type Cholecalciferol [Vitamin D3 (25 1,000 unit PO DAILY 02/26/15 07/07/19 History Mcg = 1000 Iu)] Clopidogrel [Plavix] 75 mg PO QAM 09/05/15 07/07/19 History Montelukast Sodium [Singulair] 10 mg PO HS #30 tab 10/25/15 07/07/19 Rx Nitroglycerin Sl Tabs [Nitrostat] 0.4 mg SUBLINGUAL Q5M PRN #0 tab 09/24/16 07/07/19 Rx Melatonin 5 mg PO HS 02/09/18 07/07/19 History Metoprolol Tartrate [Lopressor] 50 mg PO BID 02/09/18 07/07/19 History [place]-3 Fatty Acids [[place]-3] 2,000 mg PO QAM 09/29/18 07/07/19 History Isosorbide Mononitrate ER [Imdur] 60 mg PO DAILY #30 tab.er.24h 11/17/18 07/07/19 Rx Dicyclomine [Bentyl] 10 mg PO DAILY@1400 04/16/19 07/07/19 History Aspirin 81 mg PO DAILY chew 04/17/19 07/07/19 Rx INSULIN LISPRO (HumaLOG) [humaLOG] See Protocol SQ ACHS 06/21/19 07/07/19 History Acetaminophen Tab [Tylenol] 500 mg PO Q6HR PRN tab 06/23/19 07/07/19 Rx metroNIDAZOLE [Flagyl] 500 mg PO TID #30 tab 06/29/19 07/07/19 Rx Fluticasone/Umeclidin/Vilanter 1 puff INHALATION RT-DAILY 07/07/19 07/07/19 History [Trelegy Ellipta 100-62.5-25] HYDROcodone/APAP 7.5-325MG [[place] 1 tab PO Q6H PRN 07/07/19 07/07/19 History 7.5-325] Omeprazole 20 mg PO HS 07/07/19 07/07/19 History Allergies Allergy/AdvReac Type Severity Reaction Status Date / Time adhesive tape AdvReac bruises,"paper Verified 07/07/19 16:20 tape is ok" albuterol AdvReac Rapid Verified 07/07/19 16:20 Heart Rate stress test injection Allergy Anaphylaxis Uncoded 07/07/19 12:07 sun dried tomatoes Allergy lip Uncoded 07/07/19 12:07 swelling Physical Exam Vitals: Vital Signs Temp Pulse Resp BP Pulse Ox 07/07/19 16:30 18 07/07/19 16:22 98.1 F 92 18 127/63 97 07/07/19 15:00 88 16 190/86 07/07/19 14:21 169/75 07/07/19 14:00 81 21 204/81 07/07/19 12:04 99.8 F H 72 16 198/92 100 07/07/19 12:01 100 Intake and Output 07/07/19 07/07/19 07/07/19 06:59 14:59 22:59 Other: Weight 114.305 kg GENERAL DESCRIPTION: Elderly female lying in bed, no distress. No tachypnea or accessory muscle of respiration use. HEENT: Shows Pallor , no scleral icterus. Oral mucous membrane is dry. No pharyngeal erythema or thrush NECK: Trachea central, no thyromegaly. LUNGS: Unlabored breathing. Clear to auscultation anteriorly. No wheeze or crackle. HEART: S1, S2, regular rate and rhythm. No loud murmur ABDOMEN: Soft, mild epigastric tenderness , guarding or rigidity, no organomegaly EXTREMITIES: No edema of feet. SKIN: No rash, no masses palpable. NEUROLOGICAL: The patient is awake, alert, oriented x3, mood and affect normal. Results CBC & Chem 7: 07/07/19 13:25 07/07/19 13:25 Labs: Abnormal Lab Results - Last 24 Hours (Table) 07/07/19 07/07/19 07/07/19 Range/Units 12:32 13:25 13:25 MCV 75.4 L (80.0-100.0) fL MCH 24.1 L (25.0-35.0) pg RDW 17.7 H (11.5-15.5) % APTT (22.0-30.0) sec Sodium 123 L (137-145) mmol/L Chloride 90 L (98-107) mmol/L Glucose 225 H (74-99) mg/dL POC Glucose (mg/dL) 242 H (75-99) mg/dL AST 40 H (14-36) U/L Urine Protein (Negative) Urine Glucose (UA) (Negative) Urine Ketones (Negative) Urine Bacteria (None) /hpf Urine Mucus (None) /hpf 07/07/19 07/07/19 Range/Units 14:07 14:15 MCV (80.0-100.0) fL MCH (25.0-35.0) pg RDW (11.5-15.5) % APTT 21.8 L (22.0-30.0) sec Sodium (137-145) mmol/L Chloride (98-107) mmol/L Glucose (74-99) mg/dL POC Glucose (mg/dL) (75-99) mg/dL AST (14-36) U/L Urine Protein 1+ H (Negative) Urine Glucose (UA) 3+ H (Negative) Urine Ketones 1+ H (Negative) Urine Bacteria Rare H (None) /hpf Urine Mucus Rare H (None) /hpf Assessment and Plan Assessment: 1-patient presented to the hospital abdominal pain and nausea this patient recently treated for colitis thought to be infectious in this patient diarrhea is currently resolved and predominantly has pain in the epigastric area with nausea with a question of possible gastritis versus underlying pancreatitis, colitis less likely in view of the patient with no fever elevated white count a nd no diarrhea (1) Abdominal pain Current Visit: Yes Status: Acute Code(s): R10.9 - UNSPECIFIED ABDOMINAL PAIN SNOMED Code(s): 48443564 (2) Nausea & vomiting Current Visit: Yes Status: Acute Code(s): R11.2 - NAUSEA WITH VOMITING, UNSPECIFIED SNOMED Code(s): 62222120 Plan: 1-we will obtain a CT of abdominal pelvis with IV and oral contrast to better define underlying intra-abdominal pathology 2-hold on any systemic antibiotic therapy at this point 3-symptomatic treatment of her nausea and vomiting 4-IV fluid We will follow on clinical condition and cultures to further adjust medication if needed Thank you for this consultation will follow this patient along with you Time with Patient: Greater than 30
[2019-07-08] MEDS: HYDROcodone/APAP 7.5-325MG 1 EACH TAB PO PRN ×2 (11:01→21:04)
[2019-07-08] MEDS: SODIUM CHLORIDE 0.9% 1,000 ML IV SCH ×2 (11:02→12:58)
[2019-07-08 11:18] LABS: Glucose,Whole Blood 215 mg/dL (75-99)
[2019-07-08] MEDS: DICYCLOMINE 10 MG CAP PO SCH (12:55)
--- NOTE | 2019-07-08 13:52 | PN ---
PROGRESS NOTE DATE OF SERVICE: 07/08/2019 REASON FOR FOLLOWUP: Colitis. INTERVAL HISTORY: The patient is currently afebrile. The patient's symptoms of have resolved. The patient currently denies having any diarrhea. The patient denies having any chest pain or shortness of breath or cough and no nausea or vomiting. PHYSICAL EXAMINATION: Blood pressure 131/57 with a pulse of 66, temperature 98.1. She is % on room air. General description is an elderly female up in the bed in no distress. RESPIRATORY SYSTEM: Unlabored breathing. Clear to auscultation anteriorly. HEART: S1, S2. Regular rate and rhythm. ABDOMEN: Soft. No tenderness. LABS/IMAGING: INR is 1.0. Her white count was normal yesterday, not repeated today. She did have a CT of abdomen and pelvis with no evidence of any colitis. DIAGNOSTIC IMPRESSION AND PLAN: Patient admitted to hospital with nausea, possibly medication-related. There was concern about colitis, as she did recently have colitis with elevated white count. However, CT completed last night did not show any evidence of colitis. There is no need for antibiotic therapy at this point. Patient's Flagyl has been discontinued, which may have been responsible for symptoms of nausea. Questions and concerns were answered. MMODL / IJN: [id number] /
[2019-07-08 17:02] LABS: Glucose,Whole Blood 209 mg/dL (75-99)
[2019-07-08 20:06] LABS: Glucose,Whole Blood 197 mg/dL (75-99)
[2019-07-08] MEDS: MONTELUKAST 10 MG TAB PO SCH (21:05)
[2019-07-08] MEDS: MELATONIN 5 MG TABLET PO SCH (21:05)
--- NOTE | 2019-07-08 23:02 | HP ---
HISTORY AND PHYSICAL CHIEF COMPLAINT: A 73-year-old white female with 3 days history of epigastric pain, nausea, weakness and vomiting. She was discharged a week ago for possible C diff colitis, treated for C diff colitis and pneumonia. States she was dehydrated 3 weeks ago, diagnosed with pneumonia and discharge with empiric treatment with Flagyl. Sent back to the hospital due to severe nausea and epigastric pain and not feeling well. She is given Zofran for nausea, some epigastric discomfort, 3 watery bowel movements since admission. No blood in the stool. HOME MEDICINES: Zocor, Plavix, melatonin, Reglan, Lopressor, Zantac, Bentyl, Humalog, lisinopril, vitamin D3. SOCIAL HISTORY: No smoking. No alcohol. ALLERGIES: ALBUTEROL, ADHESIVE. SURGICAL HISTORY: Breast surgery, appendectomy, cholecystectomy, heart catheterization, PCI with stents, right lung thoracotomy, left breast biopsy, colonoscopy. FAMILY HISTORY: Father age 77. Mother had some cancer. REVIEW OF SYSTEMS: Fourteen-point review of systems negative except for mentioned in HPI. Hematology: 2+ edema. Endocrine: BMI is over 40. Cardiovascular: S1, S2. Lungs: Rales at the base. Psych: Fair mood and affect. ASSESSMENT: 1. Colitis of unclear etiology. 2. Dehydration. 3. Abdominal pain. 4. Colitis. 5. History of congestive heart failure. 6. Diabetes mellitus. 7. Coronary artery disease. 8. Gastroparesis. 9. Recent pneumonia. 10.Recent diabetic foot ulcers treated with antibiotics. Continue with Protonix, Zofran, discontinue vaginal, clear liquid diet, possibly endoscopy if she continues to have symptoms. Otherwise, see if Liya gets rid of her GI upset by stopping it. Please see further orders. MMODL / IJN: [id number] /
[2019-07-09] MEDS: SODIUM CHLORIDE 0.9% 1,000 ML IV SCH ×3 (06:01→17:51)
[2019-07-09 07:09] LABS: Glucose,Whole Blood 170 mg/dL (75-99)
[2019-07-09] MEDS: NITROGLYCERIN SL TABS 0.4 MG TAB SUBLINGUAL PRN ×2 (07:18→17:08)
[2019-07-09 07:34] LABS: Anisocytosis Slight; Basophils % (A) 1 %; Eosinophils # (A) 0.2 k/uL (0-0.7); Eosinophils % (A) 2 %; HCT 37.1 % (34.0-46.0); HGB 11.6 gm/dL (11.4-16.0); Lymphocytes # (A) 2.1 k/uL (1.0-4.8); Lymphocytes % (A) 26 %; MCH 24.2 pg (25.0-35.0); MCHC 31.3 g/dL (31.0-37.0); MCV 77.5 fL (80.0-100.0); Microcytosis Slight; Monocytes # (A) 0.5 k/uL (0-1.0); Monocytes % (A) 6 %; Neutrophils # (A) 4.9 k/uL (1.3-7.7); Neutrophils % (A) 62 %; Platelet Count 369 k/uL (150-450); RBC 4.79 m/uL (3.80-5.40); RDW 18.3 % (11.5-15.5); WBC 7.9 k/uL (3.8-10.6)
[2019-07-09 07:55] LABS: ALT 25 U/L (4-34); AST 30 U/L (14-36); African American GFR (CKD) >90 (>60 ml/min/1.73 sqM); Albumin 3.1 g/dL (3.5-5.0); Alkaline Phosphatase 65 U/L (38-126); Anion Gap 6 mmol/L; Blood Urea Nitrogen 8 mg/dL (7-17); Calcium 8.9 mg/dL (8.4-10.2); Carbon Dioxide 23 mmol/L (22-30); Chloride 103 mmol/L (98-107); Glucose 161 mg/dL (74-99); Non-African American GFR(CKD) 89 (>60 ml/min/1.73 sqM); Potassium 4.6 mmol/L (3.5-5.1); Sodium 132 mmol/L (137-145); Total Bilirubin 0.5 mg/dL (0.2-1.3); Total Protein 5.7 g/dL (6.3-8.2)
[2019-07-09] MEDS: INSULIN ASPART (NovoLOG) 100 UNIT/ML VIAL SQ SCH ×4 (08:18→20:10)
[2019-07-09] MEDS: PANTOPRAZOLE 40 MG/10 ML VIAL IV SCH (08:18)
[2019-07-09] MEDS: METOPROLOL TARTRATE 50 MG TAB PO SCH ×2 (08:19→20:11)
[2019-07-09] MEDS: CLOPIDOGREL 75 MG TAB PO SCH (08:19)
[2019-07-09] MEDS: ASPIRIN 81 MG PO SCH (08:19)
[2019-07-09] MEDS: ISOSORBIDE MONONITRATE ER 60 MG TAB.ER.24H PO SCH (08:20)
[2019-07-09] MEDS: amLODIPine 10 MG TAB PO SCH (08:20)
[2019-07-09] MEDS: CHOLECALCIFEROL 1,000 UNIT TAB PO SCH (08:20)
[2019-07-09] MEDS: HYDROcodone/APAP 7.5-325MG 1 EACH TAB PO PRN ×2 (08:20→20:12)
[2019-07-09] MEDS: IPRATROPIUM 0.5 MG/2.5 ML NEBU INHALATION SCH ×4 (08:26→21:21)
[2019-07-09] MEDS: SYMBICORT 80-4.5 MCG INHALER INHALATION SCH ×3 (08:26→21:20)
[2019-07-09] MEDS: ONDANSETRON 4 MG/2 ML VIAL IVP PRN (08:26)
--- NOTE | 2019-07-09 11:12 | PN ---
PROGRESS NOTE DATE OF DICTATION: July 09, 2019 Patient is a 73-year-old pleasant white female admitted to hospital with epigastric pain, nausea, and loose stools going on for the last few days duration. She was recently treated for possible C difficile colitis with Flagyl on an outpatient basis and the patient felt that her symptoms were related to antibiotic therapy. Flagyl was discontinued yesterday. Repeat stool studies are still pending. Today, she is feeling much better. Abdominal pain has improved. Nausea has improved. On a regular diet tolerating well. She had about 2-3 loose, soft bowel movements yesterday. She had a CT of the abdomen and pelvis done that showed some colonic diverticulosis without diverticulitis, otherwise unremarkable. PHYSICAL EXAMINATION: She appears comfortable. No apparent distress. Vital signs stable. Blood pressure is 190/80, pulse rate 80, temperature 97.8. HEENT examination unremarkable. Conjunctivae pink. Sclerae anicteric. Oral cavity no lesions. NECK: No JVD or lymph node enlargement. CHEST: Clear to auscultation. HEART: Regular rate and rhythm. ABDOMEN: Soft. Bowel sounds are positive. No organomegaly. EXTREMITIES: No pedal edema. SKIN no rashes. NEUROLOGIC: Alert and oriented x3. No focal deficits. LABS: WBC 7.9, hemoglobin 11.6, platelets normal. Basic metabolic panel is normal. Stool for C difficile toxin is negative. Occult blood is negative. IMPRESSION: 1. Nausea, vomiting, and epigastric pain, probably medication related side effects. She is feeling much better today. Flagyl has been discontinued yesterday. Overall doing well. 2. History of C diff colitis, recent C difficile is negative. 3. Hyponatremia gradually improving. 4. Mild anemia. RECOMMENDATIONS: 1. Advance diet as tolerated. 2. Continue with Protonix 40 mg twice daily. 3. No plans for any endoscopy intervention at the present time as the symptoms are gradually improving. 4. We will follow with you closely. Thank you for this consultation. MMODL / IJN: [id number] /
[2019-07-09 11:30] LABS: Glucose,Whole Blood 200 mg/dL (75-99)
[2019-07-09] MEDS: DICYCLOMINE 10 MG CAP PO SCH (14:00)
[2019-07-09 17:17] LABS: Glucose,Whole Blood 149 mg/dL (75-99)
--- NOTE | 2019-07-09 17:24 | PN ---
PROGRESS NOTE DATE OF SERVICE: 07/09/2019 REASON FOR FOLLOW UP: Abdominal pain and question of colitis. INTERVAL HISTORY: The patient is currently afebrile. The patient mentioned she was having some chest pain this morning that seemed to have resolved. The patient currently denies having any further nausea, vomiting. No abdominal pain and no diarrhea. PHYSICAL EXAMINATION: Blood pressure 150/79 with a pulse of 59, temperature 98.7, she is 99% on 2 L nasal cannula. General description is an elderly female up in the chair in no distress. Respiratory system: Unlabored breathing. Clear to auscultation anteriorly. Heart S1, S2. Regular rate and rhythm. Abdomen soft, no tenderness. LABS: Hemoglobin 11.6, white count 10.9, BUN of 8, creatinine 0.67. DIAGNOSTIC IMPRESSION AND PLAN: Patient presented to hospital with epigastric discomfort, unknown more likely related to the gastritis. CT was negative for any colitis. The patient has no fever and no diarrhea and hence no need for any systemic antibiotic therapy at this point. Son was present at bedside. His questions and concerns were answered. MMODL / IJN: [id number] /
[2019-07-09 19:34] LABS: Glucose,Whole Blood 181 mg/dL (75-99)
[2019-07-09] MEDS: MONTELUKAST 10 MG TAB PO SCH (20:11)
[2019-07-09] MEDS: MELATONIN 5 MG TABLET PO SCH (22:02)
--- NOTE | 2019-07-09 22:31 | PN ---
PROGRESS NOTE SUBJECTIVE: 73-year-old white female came in to the hospital with abdominal pain, nausea, loose stools. She has been better since she has been off Flagyl. Had 2-3 loose bowel movements yesterday. PHYSICAL EXAMINATION: Vital signs reviewed. Cardiovascular S1-S2. Lungs soft. GI increased bowel sounds. White count 7.9, hemoglobin 11.6. Stool C diff is negative. Occult blood is negative. ASSESSMENT/PLAN: 1. Acute drug reaction due to Flagyl, gastroenteritis. 2. History of C diff colitis. 3. Hyponatremia, improving. 4. Mild anemia. 5. Advance diet. 6. Protonix. 7. Possible discharge home in next 24-48 hours. MMODL / IJN: [id number] /
[2019-07-10] MEDS: SODIUM CHLORIDE 0.9% 1,000 ML IV SCH ×2 (05:02→12:56)
[2019-07-10 07:00] LABS: Glucose,Whole Blood 163 mg/dL (75-99)
[2019-07-10] MEDS: INSULIN ASPART (NovoLOG) 100 UNIT/ML VIAL SQ SCH ×4 (08:01→21:23)
[2019-07-10] MEDS: METOPROLOL TARTRATE 50 MG TAB PO SCH ×2 (08:01→21:24)
[2019-07-10] MEDS: ASPIRIN 81 MG PO SCH (08:01)
[2019-07-10] MEDS: PANTOPRAZOLE 40 MG/10 ML VIAL IV SCH (08:01)
[2019-07-10] MEDS: amLODIPine 10 MG TAB PO SCH (08:02)
[2019-07-10] MEDS: ISOSORBIDE MONONITRATE ER 60 MG TAB.ER.24H PO SCH (08:02)
[2019-07-10] MEDS: CHOLECALCIFEROL 1,000 UNIT TAB PO SCH (08:02)
[2019-07-10] MEDS: CLOPIDOGREL 75 MG TAB PO SCH (08:02)
[2019-07-10] MEDS: IPRATROPIUM 0.5 MG/2.5 ML NEBU INHALATION SCH ×4 (08:24→19:19)
[2019-07-10] MEDS: SYMBICORT 80-4.5 MCG INHALER INHALATION SCH ×2 (08:24→19:19)
[2019-07-10 11:28] LABS: Glucose,Whole Blood 208 mg/dL (75-99)
[2019-07-10] MEDS: DICYCLOMINE 10 MG CAP PO SCH (12:56)
[2019-07-10 16:54] LABS: Glucose,Whole Blood 206 mg/dL (75-99)
--- NOTE | 2019-07-10 18:26 | DS ---
DISCHARGE SUMMARY DATE OF DISCHARGE: 07/10/2019 DISCHARGE MEDICATIONS: 1. Norvasc 10 mg daily. 2. Aspirin 81 mg daily. 3. Symbicort 2 puffs b.i.d. 80/4.5. 4. Vitamin D 1000 units daily. 5. Plavix 75 daily. 6. Bentyl 10 mg before meals t.i.d. 7. [place] 7.5 q.8 hours. 8. Accu-Chek protocol before meals and at bedtime. 9. DuoNeb updrafts q.i.d. 10.Imdur 60 mg daily. 11.Melatonin 5 mg daily. 12.Lopressor 50 b.i.d. 13.Singular 10 daily. 14.Protonix 40 mg daily. 15.Requip 1 mg t.i.d. CONDITION: Stable. PROGNOSIS: Guarded. Ambulate as tolerated. Patient came in with severe abdominal pain, acute colitis flare. Flagyl was discontinued. Seen by the GI doctor, cleared her for discharge. She was stabilized and was sent home on medications as mentioned above. I will follow up with her in the [facility]. Continue with PT and OT for generalized weakness. Set her up for [facility] for discharge when she leaves the [facility]. MMODL / IJN: [id number] /
[2019-07-10] MEDS: HYDROcodone/APAP 7.5-325MG 1 EACH TAB PO PRN (19:39)
[2019-07-10 20:24] LABS: Glucose,Whole Blood 209 mg/dL (75-99)
[2019-07-10] MEDS: MELATONIN 5 MG TABLET PO SCH (21:23)
[2019-07-10] MEDS: MONTELUKAST 10 MG TAB PO SCH (21:24)
[2019-07-11 04:38] VITALS: BP 172/72; PULSE 74; RESP 20; TEMP 98.1
[2019-07-11] MEDS: SODIUM CHLORIDE 0.9% 1,000 ML IV SCH (05:38)
[2019-07-11 07:09] LABS: Glucose,Whole Blood 214 mg/dL (75-99)
[2019-07-11] MEDS ORDERED: PANTOPRAZOLE 40 MG TABLET PO SCH (07:30)
[2019-07-11] MEDS: CLOPIDOGREL 75 MG TAB PO SCH (07:40)
[2019-07-11] MEDS: ISOSORBIDE MONONITRATE ER 60 MG TAB.ER.24H PO SCH (07:40)
[2019-07-11] MEDS: METOPROLOL TARTRATE 50 MG TAB PO SCH (07:40)
[2019-07-11] MEDS: amLODIPine 10 MG TAB PO SCH (07:40)
[2019-07-11] MEDS: ASPIRIN 81 MG PO SCH (07:40)
[2019-07-11] MEDS: INSULIN ASPART (NovoLOG) 100 UNIT/ML VIAL SQ SCH ×2 (07:41→12:23)
[2019-07-11] MEDS: CHOLECALCIFEROL 1,000 UNIT TAB PO SCH (07:41)
[2019-07-11] MEDS: SYMBICORT 80-4.5 MCG INHALER INHALATION SCH (08:08)
[2019-07-11] MEDS: IPRATROPIUM 0.5 MG/2.5 ML NEBU INHALATION SCH ×2 (08:09→12:01)
[2019-07-11 11:26] LABS: Glucose,Whole Blood 171 mg/dL (75-99)
[2019-07-11] MEDS: DICYCLOMINE 10 MG CAP PO SCH (12:23)
== END 2019-07-11 14:52 | DRG 394 ==
LOC: EC 11:56 → 5NMEDONC 14:55 → OBSVTOIN 14:55 → 5NMEDONC 17:15
PROVIDERS: ADMIT Family Medicine; ATTEND Family Medicine
DX: K52.1 Toxic gastroenteritis and colitis (principal); E87.1 Hypo-osmolality and hyponatremia; L97.519 Non-pressure chronic ulcer of other part of right foot with unspecified severity; E11.40 Type 2 diabetes mellitus with diabetic neuropathy, unspecified; K31.84 Gastroparesis; I11.0 Hypertensive heart disease with heart failure; E11.43 Type 2 diabetes mellitus with diabetic autonomic (poly)neuropathy; I50.9 Heart failure, unspecified; E11.621 Type 2 diabetes mellitus with foot ulcer; D64.9 Anemia, unspecified; K57.30 Diverticulosis of large intestine without perforation or abscess without bleeding; L97.529 Non-pressure chronic ulcer of other part of left foot with unspecified severity; E78.5 Hyperlipidemia, unspecified; E86.0 Dehydration; T37.3X5A Adverse effect of other antiprotozoal drugs, initial encounter; J44.9 Chronic obstructive pulmonary disease, unspecified; G47.33 Obstructive sleep apnea (adult) (pediatric); G25.81 Restless legs syndrome; I25.10 Atherosclerotic heart disease of native coronary artery without angina pectoris; I25.2 Old myocardial infarction; M19.90 Unspecified osteoarthritis, unspecified site; Z79.82 Long term (current) use of aspirin; Z79.51 Long term (current) use of inhaled steroids; Z79.4 Long term (current) use of insulin; Z79.02 Long term (current) use of antithrombotics/antiplatelets; Z79.899 Other long term (current) drug therapy; Z87.01 Personal history of pneumonia (recurrent); Z90.49 Acquired absence of other specified parts of digestive tract; Z95.5 Presence of coronary angioplasty implant and graft; Z87.891 Personal history of nicotine dependence; Z86.19 Personal history of other infectious and parasitic diseases; Z98.890 Other specified postprocedural states; Z88.8 Allergy status to other drugs, medicaments and biological substances; Z91.018 Allergy to other foods; Z91.048 Other nonmedicinal substance allergy status; Z80.9 Family history of malignant neoplasm, unspecified; Z82.49 Family history of ischemic heart disease and other diseases of the circulatory system; Z91.81 History of falling
CPT/HCPCS: 36415; 71046; 74018; 74177; 80053; 81001; 82150; 82272; 83605; 83690; 84484; 85025; 85610; 85730; 87040; 87045; 87046; 87324; 87502; 93005; 94640; 96361; 96365; 96375; 96376; 99285

== ENCOUNTER 2019-08-15 10:46 | Inpatient (IN) | payer MEDICARE, OTHER ==
[2019-08-15 12:11] LABS: Glucose,Whole Blood 113 mg/dL (75-99)
[2019-08-15] MEDS: INSULIN ASPART (NovoLOG) 100 UNIT/ML VIAL SQ SCH ×3 (13:11→20:40)
[2019-08-15] MEDS ORDERED: NITROGLYCERIN SL TABS 0.4 MG TAB SUBLINGUAL PRN (14:36)
[2019-08-15] MEDS ORDERED: METOCLOPRAMIDE 10 MG TAB PO PRN (14:36)
[2019-08-15] MEDS ORDERED: ACETAMINOPHEN TAB 500 MG TAB PO PRN (14:36)
[2019-08-15] MEDS: SODIUM CHLORIDE 0.9% 1,000 ML IV SCH (14:40)
[2019-08-15] MEDS: HYDROcodone/APAP 7.5-325MG 1 EACH TAB PO PRN (15:58)
[2019-08-15] MEDS: PIPERACILLIN-TAZOBACTAM 3.375 GM in SODIUM CHLORIDE 0.9% 100 ML IVPB SCH (16:00)
[2019-08-15 17:12] LABS: Glucose,Whole Blood 154 mg/dL (75-99)
[2019-08-15] MEDS: SUCRALFATE 1 GM TAB PO SCH ×2 (17:30→20:41)
[2019-08-15] MEDS: SYMBICORT 80-4.5 MCG INHALER INHALATION SCH (19:26)
[2019-08-15] MEDS: IPRATROPIUM 0.5 MG/2.5 ML NEBU INHALATION SCH (19:28)
[2019-08-15 20:07] LABS: Glucose,Whole Blood 177 mg/dL (75-99)
[2019-08-15] MEDS: METOPROLOL TARTRATE 50 MG TAB PO SCH (20:41)
[2019-08-15] MEDS: MONTELUKAST 10 MG TAB PO SCH (20:43)
[2019-08-15] MEDS: metFORMIN 500 MG TAB PO SCH (20:43)
[2019-08-15] MEDS: PANTOPRAZOLE 40 MG TABLET PO SCH (20:43)
[2019-08-15] MEDS: FUROSEMIDE 40 MG TAB PO SCH (20:43)
[2019-08-15] MEDS: MELATONIN 5 MG TABLET PO SCH (20:43)
[2019-08-15] MEDS: INSULN ASP PRT/INSULIN ASPART 100 UNIT/ML 10 ML VIAL SQ SCH (20:49)
--- NOTE | 2019-08-15 21:53 | XR ---
EXAMINATION TYPE: XR foot complete bilateral DATE OF EXAM: 08/15/2019 COMPARISON: NONE HISTORY: Osteomyelitis. TECHNIQUE: 3 views each foot FINDINGS: There is bilateral plantar calcaneal spurring. There is right side Achilles calcaneal spurr ing. There is soft tissue swelling of the forefoot bilaterally. There is ulceration of the plantar as pect of the forefoot on the lateral view of both feet. I see no focal bone destruction. There is no s ign of fracture nor dislocation. There is some spurring at the first MP joints. IMPRESSION: No specific sign of osteomyelitis. Ulcer soft tissue defect on the plantar aspect of the forefoot bilaterally. Soft tissue swelling.
[2019-08-15 22:18] LABS: Anisocytosis Slight; Basophils % (A) 0 %; Eosinophils # (A) 0.2 k/uL (0-0.7); Eosinophils % (A) 1 %; HCT 32.6 % (34.0-46.0); HGB 10.4 gm/dL (11.4-16.0); Hypochromasia Slight; Lymphocytes # (A) 2.8 k/uL (1.0-4.8); Lymphocytes % (A) 21 %; MCH 24.6 pg (25.0-35.0); MCHC 31.8 g/dL (31.0-37.0); MCV 77.3 fL (80.0-100.0); Mean Platelet Volume 7.2; Microcytosis Slight; Monocytes # (A) 0.6 k/uL (0-1.0); Monocytes % (A) 5 %; Neutrophils # (A) 9.4 k/uL (1.3-7.7); Neutrophils % (A) 70 %; Platelet Count 441 k/uL (150-450); RBC 4.21 m/uL (3.80-5.40); RDW 16.5 % (11.5-15.5); WBC 13.3 k/uL (3.8-10.6)
[2019-08-15 22:22] LABS: Albumin 3.6 g/dL (3.5-5.0); Calcium 9.1 mg/dL (8.4-10.2); Potassium 3.5 mmol/L (3.5-5.1); Total Bilirubin 0.4 mg/dL (0.2-1.3); Total Protein 6.7 g/dL (6.3-8.2)
[2019-08-15 23:13] LABS: Erythrocyte Sedimentation Rate 64 mm/hr (0-20)
[2019-08-16] MEDS: PIPERACILLIN-TAZOBACTAM 3.375 GM in SODIUM CHLORIDE 0.9% 100 ML IVPB SCH ×3 (00:10→15:49)
[2019-08-16 06:57] LABS: Glucose,Whole Blood 147 mg/dL (75-99)
[2019-08-16] MEDS: HYDROcodone/APAP 7.5-325MG 1 EACH TAB PO PRN ×3 (08:09→21:27)
[2019-08-16] MEDS: ASPIRIN 81 MG PO SCH (08:10)
[2019-08-16] MEDS: FUROSEMIDE 40 MG TAB PO SCH ×2 (08:10→21:29)
[2019-08-16] MEDS: INSULN ASP PRT/INSULIN ASPART 100 UNIT/ML 10 ML VIAL SQ SCH ×2 (08:10→21:29)
[2019-08-16] MEDS: DICYCLOMINE 10 MG CAP PO SCH (08:10)
[2019-08-16] MEDS: CHOLECALCIFEROL 1,000 UNIT TAB PO SCH (08:10)
[2019-08-16] MEDS: amLODIPine 10 MG TAB PO SCH (08:11)
[2019-08-16] MEDS: METOPROLOL TARTRATE 50 MG TAB PO SCH ×2 (08:11→21:28)
[2019-08-16] MEDS: SUCRALFATE 1 GM TAB PO SCH ×4 (08:11→21:28)
[2019-08-16] MEDS: ISOSORBIDE MONONITRATE ER 60 MG TAB.ER.24H PO SCH (08:11)
[2019-08-16] MEDS: metFORMIN 500 MG TAB PO SCH ×2 (08:11→21:28)
[2019-08-16] MEDS: CLOPIDOGREL 75 MG TAB PO SCH (08:11)
[2019-08-16] MEDS: INSULIN ASPART (NovoLOG) 100 UNIT/ML VIAL SQ SCH ×4 (08:12→21:29)
[2019-08-16] MEDS ORDERED: Potassium Replacement Protocol 1 EACH MISC MISCELLANE PRN (08:44)
--- NOTE | 2019-08-16 08:58 | P.CONS ---
History of Present Illness - Reason for Consult Consult date: 08/15/19 bilateral feet wounds and cellulitis Requesting physician: Medardo Grande - Chief Complaint bilateral feet wounds and redness x few days - History of Present Illness Patient is a 74-year female with a past medical he significant for diabetes mellitus the patient also has a history of bilateral foot plantar callus at the base of big toe both feet which apparently has been debrided by the wound care nurse at [facility] on the bee x2 for the last 2 weeks patient says she was discharged from [facility] last patient did have a follow-up visit with her primary care physician this morning she was noted to have significant swelling of bilateral feet along with redness with concern for diabetic foot wound infection she has been admitted directly to the hospital infectious disease was consulted for further management of the wound and antibiotic therapy. Patient denies having any fever or any chills patient to have diabetic neuropathy denies significant pain to the ulcer area patient did have a swelling or redness which is mostly bound to the left foot she did have some drainage no significant foul-smelling though currently no nausea no vomiting no abdominal pain or any diarrhea. Review of Systems Positive point has been mentioned in HPI rest of the systems are negative Past Medical History Past Medical History: Asthma, Coronary Artery Disease (CAD), Heart Failure, COPD, Diabetes Mellitus, Hyperlipidemia, Hypertension, Myocardial Infarction (CO), Osteoarthritis (OA), Pneumonia, Renal Disease, Skin Disorder, Sleep Apnea/CPAP/BIPAP Additional Past Medical History / Comment(s): NIDDM type II, neuropathy bilateral feet, bilateral diabetic great toe ulcers with 2ndary cellulitis, colitis with recent flare, recent r side pneumonia, renal insufficiency, IRA with no device, home oxygen at 2L/NC at HS, RLS, diarrhea. Last Myocardial Infarction Date:: 2017 History of Any Multi-Drug Resistant Organisms: None Reported Past Surgical History: Appendectomy, Breast Surgery, Cholecystectomy, Heart Catheterization, Heart Catheterization With Stent Additional Past Surgical History / Comment(s): PCI with stents, R lung thoracotomy/decortication for empyema, L breast benign bx, colonoscopy Past Anesthesia/Blood Transfusion Reactions: No Reported Reaction Additional Past Anesthesia/Blood Transfusion Reaction / Comm: severe claustrophobia Date of Last Stent Placement:: 11/30/2017 Smoking Status: Former smoker - Past Family History Brother(s) Family Medical History: Cancer Father Family Medical History: Chest Pain / Angina Additional Family Medical History / Comment(s): Father of a CO at the age of 77yrs. Mother Family Medical History: Chest Pain / Angina Additional Family Medical History / Comment(s): Mother of a CO at the age of 74yrs. Medications and Allergies Home Medications Medication Instructions Recorded Confirmed Type Cholecalciferol [Vitamin D3 (25 1,000 unit PO DAILY 02/26/15 08/15/19 History Mcg = 1000 Iu)] Clopidogrel [Plavix] 75 mg PO QAM 09/05/15 08/15/19 History Montelukast Sodium [Singulair] 10 mg PO HS #30 tab 10/25/15 08/15/19 Rx Nitroglycerin Sl Tabs [Nitrostat] 0.4 mg SUBLINGUAL Q5M PRN #0 tab 09/24/16 08/15/19 Rx Melatonin 5 mg PO HS 02/09/18 08/15/19 History Metoprolol Tartrate [Lopressor] 50 mg PO BID 02/09/18 08/15/19 History Roxbury-3 Fatty Acids [Roxbury-3] 2,000 mg PO QAM 09/29/18 08/15/19 History Isosorbide Mononitrate ER [Imdur] 60 mg PO DAILY #30 tab.er.24h 11/17/18 08/15/19 Rx Dicyclomine [Bentyl] 10 mg PO DAILY 04/16/19 08/15/19 History Aspirin 81 mg PO DAILY chew 04/17/19 08/15/19 Rx Acetaminophen Tab [Tylenol] 500 mg PO Q6HR PRN tab 06/23/19 08/15/19 Rx Fluticasone/Umeclidin/Vilanter 1 puff INHALATION RT-DAILY 07/07/19 08/15/19 History [Trelegy Ellipta 100-62.5-25] HYDROcodone/APAP 7.5-325MG [Geff 1 tab PO Q6H PRN 07/07/19 08/15/19 History 7.5-325] Omeprazole 20 mg PO HS 07/07/19 08/15/19 History amLODIPine [Norvasc] 10 mg PO QAM tab 07/09/19 08/15/19 Rx rOPINIRole HCL [Requip] 1 mg PO TID tab 07/09/19 08/15/19 Rx Dulaglutide [Trulicity] 1.5 mg SQ WE 08/15/19 08/15/19 History Furosemide [Lasix] 40 mg PO BID 08/15/19 08/15/19 History Insulin Aspart Protam & Aspart 30 unit SQ BID 08/15/19 08/15/19 History [NovoLOG MIX 70-30 Flexpen] Metoclopramide [Reglan] 10 mg PO QID PRN 08/15/19 08/15/19 History Sucralfate [Carafate] 1 gm PO QID 08/15/19 08/15/19 History Sulfamethoxazole/Trimethoprim 1 tab PO BID 08/15/19 08/15/19 History [Sulfamethoxazole-Tmp Ds Tablet] metFORMIN HCL 1,000 mg PO BID 08/15/19 08/15/19 History Allergies Allergy/AdvReac Type Severity Reaction Status Date / Time adhesive tape AdvReac bruises,"paper Verified 08/15/19 12:33 tape is ok" albuterol AdvReac Rapid Verified 08/15/19 12:33 Heart Rate stress test injection Allergy Anaphylaxis Uncoded 07/07/19 12:07 sun dried tomatoes Allergy lip Uncoded 07/07/19 12:07 swelling Physical Exam Vitals: Vital Signs Temp Pulse Resp BP Pulse Ox 08/15/19 11:50 98.1 F 76 18 141/60 93 L Intake and Output 08/15/19 08/15/19 08/15/19 06:59 14:59 22:59 Other: # Voids 1 Weight 120.656 kg GENERAL DESCRIPTION: Elderly female lying in bed, no distress. No tachypnea or accessory muscle of respiration use. HEENT: Shows Pallor , no scleral icterus. Oral mucous membrane is dry. NECK: Trachea central, no thyromegaly. LUNGS: Unlabored breathing. Clear to auscultation anteriorly. No wheeze or crackle. HEART: S1, S2, regular rate and rhythm. ABDOMEN: Soft, no tenderness , guarding or rigidity EXTREMITIES: Bilateral feet plantar ulcers at the base of the big toe minimal slough tissue at the base with surrounding swelling and redness no significant foul-smelling drainage. SKIN: No rash, no masses palpable. NEUROLOGICAL: The patient is awake, alert, oriented x3, mood and affect normal. Results CBC & Chem 7: 08/15/19 21:40 08/15/19 21:40 Labs: Abnormal Lab Results - Last 24 Hours (Table) 08/15/19 08/15/19 Range/Units 12:10 17:10 POC Glucose (mg/dL) 113 H 154 H (75-99) mg/dL Microbiology - Last 24 Hours (Table) 08/15/19 12:15 Wound Culture - Preliminary Foot - Left 08/15/19 12:15 Anaerobic Culture - Preliminary Foot - Left 08/15/19 12:15 Wound Culture - Preliminary Foot - Right 08/15/19 12:15 Anaerobic Culture - Preliminary Foot - Right Assessment and Plan Assessment: patient with bilateral diabetic foot ulcers from debridement of calluses now with evidence of secondary cellulitis most marked on the left foot compared to the right foot and this patient has been in the hospital will need to call for resistant gram negatives in addition to the skin myesha (1) Diabetic foot ulcer Current Visit: Yes Status: Acute Code(s): E11.621 - TYPE 2 DIABETES MELLITUS WITH FOOT ULCER; L97.509 - NON-PRESSURE CHRONIC ULCER OTH PRT UNSP FOOT W UNSP SEVERITY SNOMED Code(s): 054931036 (2) Cellulitis of both feet Current Visit: Yes Status: Acute Code(s): L03.115 - CELLULITIS OF RIGHT LOWER LIMB; L03.116 - CELLULITIS OF LEFT LOWER LIMB SNOMED Code(s): 134958339 Plan: 1-wound culture has been obtained to guide further antibiotic therapy 2-x-ray done did not show any evidence of bony changes in the wound does not track down to the bone either clinically 3-continue with empiric Zosyn at 3.375 g every 8 hour 4-local wound care with the meta honey followed by moist dressing We will follow on clinical condition and cultures to further adjust medication if needed Thank you for this consultation we will follow the patient along with you Time with Patient: Greater than 30
[2019-08-16] MEDS: SYMBICORT 80-4.5 MCG INHALER INHALATION SCH ×2 (09:00→20:19)
--- NOTE | 2019-08-16 10:49 | NM ---
EXAMINATION TYPE: NM bone 3 phase DATE OF EXAM: 08/16/2019 COMPARISON: NONE HISTORY: bilat foot wounds Triple phase bone scintigraphy was performed following the injection of 24.1 mCi Tc 99m MDP. Immedia te images and 3.25 hours post injection images acquired. FINDINGS: On the angiographic and blood images. There is mild increased soft tissue uptake identified involving the soft tissues about the great toes bilaterally. No additional increased uptake is seen. On the delayed images there is increased uptake involving the first metatarsophalangeal joints bilat erally compatible with degenerative uptake. IMPRESSION: Soft tissue uptake suggests cellulitis. I do not see evidence for osteomyelitis at this time.
[2019-08-16] MEDS: IPRATROPIUM 0.5 MG/2.5 ML NEBU INHALATION SCH ×3 (11:12→20:19)
[2019-08-16 11:41] LABS: Glucose,Whole Blood 141 mg/dL (75-99)
--- NOTE | 2019-08-16 13:58 | HP ---
HISTORY AND PHYSICAL A 74-year-old white female recently got discharged from the nursing [facility]hab center where she had calluses on the bottom of both feet at the big toe debrided less than a week ago. They have been treating her with wound care at home, which she has increased swelling and foul discharge from both holes on the bottom of her big toes at the base of the big toe. She is a diabetic. Her sugars have been running in the little high also. She is admitted for possible osteomyelitis with severe diabetic wound infection of the legs with foul smelling discharge from both wounds. She has history of diabetic neuropathy, unable to tell if her feet hurt. Significant drainage, foul smelling. No nausea, vomiting, or diarrhea. 14 POINT REVIEW OF SYSTEMS: Negative except for as mentioned in HPI. PAST MEDICAL HISTORY: Type 2 diabetes, bilateral neuropathy of the legs, COPD, coronary artery disease with stents, chronic renal insufficiency, obstructive sleep apnea. SURGERIES: Appendectomy, breast surgeries, cholecystectomy, heart catheterization with stents. She has had stents in her heart, right lung thoracotomy, decortication for empyema, left breast benign biopsy. She has severe claustrophobia. She recently quit smoking. FAMILY HISTORY: Brother cancer. Father angina. Mother with angina and heart problems. MEDICATIONS: At home, see list. ALLERGIES: ADHESIVE TAPE, ALBUTEROL, and possibly STRESS TEST INJECTION MATERIAL. PHYSICAL EXAMINATION: Temp 98.1, pulse 70s to 80s, respiratory rate 16-20, blood pressure 130s to 140s/60s to 70s, O2 is 93% on room air. Endocrine BMI is over 40. HEENT sounds shows some pallor. No scleral icterus. Lungs shows wheezes x4. Mild unlabored breathing. HEART: S1, S2. Abdomen is soft, distended due to obesity. EXTREMITIES: She has quarter-sized lesions on the plantar ulcers at the base of the big toe with deep wounds with foul smelling drainage of the left pad of the left foot. INTEGUMENT: Redness throughout the big toes, going up to the mid foot bilaterally. NEUROLOGIC: Alert, oriented x3. Labs are reviewed. Cultures were taken. ASSESSMENT: Diabetic foot ulcer, cellulitis of bilateral feet, rule out osteomyelitis, left foot is worse than the right foot, wound cultures are pending. Continue with antibiotics. X- ray and bone scan are done. Again, Medihoiris on the wounds. Please see further orders. MMODL / IJN: [id number] /
[2019-08-16] MEDS: SODIUM CHLORIDE 0.9% 1,000 ML IV SCH (15:15)
[2019-08-16 15:16] LABS: Hemoglobin A1C 7.9 % (4.0-6.0)
[2019-08-16 16:47] LABS: Glucose,Whole Blood 130 mg/dL (75-99)
--- NOTE | 2019-08-16 16:49 | PN ---
PROGRESS NOTE DATE OF SERVICE: 08/16/2019 REASON FOR FOLLOWUP: Bilateral diabetic foot wound and cellulitis. INTERVAL HISTORY: The patient is currently afebrile. The patient has been breathing comfortably. The patient denies having any chest pain or shortness of breath or cough. No nausea or vomiting. No abdominal pain or pain to the bilateral foot wound areas. PHYSICAL EXAMINATION: Blood pressure 119/50 with a pulse of 83, temperature 98.1. She is 93% on room air. General description is an elderly female lying in bed in no distress. RESPIRATORY SYSTEM: Unlabored breathing. Clear to auscultation anteriorly. HEART: S1, S2. Regular rate and rhythm. ABDOMEN: Soft. No tenderness. LABS: Wound culture now showing Enterococcus. Bone scan was negative for any osteomyelitis. DIAGNOSTIC IMPRESSION AND PLAN: Patient with bilateral diabetic foot wounds with secondary cellulitis. Culture now showing Enterococcus. Antibiotic will be adjusted to Unasyn 3 grams q.6 hours. Local wound care to continue with Santyl followed by moist dressing and monitor her clinical course closely. Continue with supportive care. MMODL / IJN: [id number] /
[2019-08-16 20:58] LABS: Glucose,Whole Blood 175 mg/dL (75-99)
[2019-08-16] MEDS: MELATONIN 5 MG TABLET PO SCH (21:26)
[2019-08-16] MEDS: MONTELUKAST 10 MG TAB PO SCH (21:26)
[2019-08-16] MEDS: PANTOPRAZOLE 40 MG TABLET PO SCH (21:29)
[2019-08-16] MEDS: AMPICILLIN-SULBACTAM 3 GM in SODIUM CHLORIDE 0.9% 100 ML IVPB SCH (23:41)
[2019-08-17] MEDS: AMPICILLIN-SULBACTAM 3 GM in SODIUM CHLORIDE 0.9% 100 ML IVPB SCH ×3 (05:22→17:22)
[2019-08-17 07:08] LABS: Glucose,Whole Blood 129 mg/dL (75-99)
[2019-08-17] MEDS: INSULIN ASPART (NovoLOG) 100 UNIT/ML VIAL SQ SCH ×4 (07:16→21:36)
[2019-08-17] MEDS: SYMBICORT 80-4.5 MCG INHALER INHALATION SCH ×2 (08:25→21:10)
[2019-08-17] MEDS: IPRATROPIUM 0.5 MG/2.5 ML NEBU INHALATION SCH ×4 (08:25→21:09)
[2019-08-17] MEDS: METOPROLOL TARTRATE 50 MG TAB PO SCH ×2 (08:41→21:39)
[2019-08-17] MEDS: metFORMIN 500 MG TAB PO SCH ×2 (08:41→21:38)
[2019-08-17] MEDS: SUCRALFATE 1 GM TAB PO SCH ×4 (08:42→21:38)
[2019-08-17] MEDS: ASPIRIN 81 MG PO SCH (08:42)
[2019-08-17] MEDS: CHOLECALCIFEROL 1,000 UNIT TAB PO SCH (08:42)
[2019-08-17] MEDS: FUROSEMIDE 40 MG TAB PO SCH ×2 (08:42→21:38)
[2019-08-17] MEDS: DICYCLOMINE 10 MG CAP PO SCH (08:42)
[2019-08-17] MEDS: ISOSORBIDE MONONITRATE ER 60 MG TAB.ER.24H PO SCH (08:42)
[2019-08-17] MEDS: INSULN ASP PRT/INSULIN ASPART 100 UNIT/ML 10 ML VIAL SQ SCH ×2 (08:42→21:37)
[2019-08-17] MEDS: amLODIPine 10 MG TAB PO SCH (08:42)
[2019-08-17] MEDS: CLOPIDOGREL 75 MG TAB PO SCH (08:42)
[2019-08-17] MEDS: HYDROcodone/APAP 7.5-325MG 1 EACH TAB PO PRN ×3 (08:49→21:37)
[2019-08-17] MEDS: METOCLOPRAMIDE 10 MG TAB PO SCH ×4 (10:06→21:42)
--- NOTE | 2019-08-17 11:48 | CDI ---
Documentation Clarification Form Date: 08/17/2019 11:29:05 AM From: Courtney Lopez RN CCDS Admit Date: 08/15/2019 11:01:00 AM Patient Name: Lorelei Brand Visit Number: [id number] Discharge Date: ATTENTION: The Clinical Documentation Specialists (CDI) and [facility] Coding Staff appreciate your assistance in clarifying documentation. Please respond to the clarification below the line at the bottom and electronically sign. The CDI & [facility] Coding staff will review the response and follow-up if needed. Please note: Queries are made part of the Legal Health Record. If you have any questions, please contact the author of this message via ITS. Dr. Medardo Grande Heart Failure is documented in the ID consult 08/15/19 History/Risk Factors: [id number] female presents to [facility] for Increased swelling and foul discharge from bilateral diabetic great toe ulcers. Medical history DM 2, home oxygen 2Lns at , CAD, HLD, HTN and CT in 2017 Clinical Indicators: VS/Pulse OX: 08/15 140/69 92 98.3 Temporal 92% room air 08/15/19 BNP: 840 06/16/19 Echocardiogram Results: There is moderate concentric left ventricular hypertrophy. Overall left ventricular systolic function is normal with an EF between 55-60%. The right ventricle is mildly enlarged. Treatment: 08/14 Lasix 40mg po Bid, Imdur 60mg po Daily, Lopressor 50mg po Bid, In your professional opinion, can you please clarify the acuity and type of CHF if known? Chronic Diastolic Heart Failure Heart Failure Ruled Out. Unable to Determine Other, please specify (Last Revision: August 2017) MTDD
[2019-08-17] MEDS: SODIUM CHLORIDE 0.9% 1,000 ML IV SCH (11:52)
[2019-08-17 12:17] LABS: Glucose,Whole Blood 103 mg/dL (75-99)
[2019-08-17 17:10] LABS: Glucose,Whole Blood 104 mg/dL (75-99)
[2019-08-17 20:57] LABS: Glucose,Whole Blood 149 mg/dL (75-99)
[2019-08-17] MEDS: MELATONIN 5 MG TABLET PO SCH (21:38)
[2019-08-17] MEDS: MONTELUKAST 10 MG TAB PO SCH (21:38)
[2019-08-17] MEDS: PANTOPRAZOLE 40 MG TABLET PO SCH (21:38)
[2019-08-18] MEDS: AMPICILLIN-SULBACTAM 3 GM in SODIUM CHLORIDE 0.9% 100 ML IVPB SCH ×5 (00:34→23:45)
[2019-08-18] MEDS: HYDROcodone/APAP 7.5-325MG 1 EACH TAB PO PRN ×4 (04:22→21:06)
--- NOTE | 2019-08-18 05:08 | PN ---
PROGRESS NOTE DATE OF SERVICE: 08/17/2019 REASON FOR FOLLOWUP: Bilateral diabetic foot wound with cellulitis. INTERVAL HISTORY: The patient is currently afebrile, has been breathing comfortably. Denies having any chest pain. No shortness of breath or cough. No nausea, vomiting, abdominal pain. No pain to the bilateral foot wound area. PHYSICAL EXAMINATION: Blood pressure 118/66 with a pulse of 77 temperature is 97.8. She is 97% on room air. General description is an elderly female lying in bed in no distress. RESPIRATORY SYSTEM: Unlabored breathing, clear to auscultation anteriorly. HEART: S1, S2. Regular rate and rhythm. ABDOMEN: Soft. No tenderness. Examination of bilateral foot overall swelling and redness have improved, no drainage. LABS: Wound culture with Enterococcus faecalis. No CBC was done. DIAGNOSTIC IMPRESSION AND PLAN: Patient with bilateral diabetic foot wound with secondary cellulitis, culture with Enterococcus faecalis. Bone scan was negative for osteomyelitis. Antibiotic will be switched over to oral Augmentin on discharge. The patient will be re-evaluated tomorrow. Local care to continue with [facility]. Continue with supportive care. MMODL / IJN: [id number] /
[2019-08-18 07:02] LABS: Glucose,Whole Blood 128 mg/dL (75-99)
[2019-08-18] MEDS: CLOPIDOGREL 75 MG TAB PO SCH (07:56)
[2019-08-18] MEDS: metFORMIN 500 MG TAB PO SCH ×2 (07:56→22:24)
[2019-08-18] MEDS: FUROSEMIDE 40 MG TAB PO SCH ×2 (07:56→21:11)
[2019-08-18] MEDS: METOPROLOL TARTRATE 50 MG TAB PO SCH ×2 (07:56→21:19)
[2019-08-18] MEDS: SUCRALFATE 1 GM TAB PO SCH ×4 (07:56→21:18)
[2019-08-18] MEDS: DICYCLOMINE 10 MG CAP PO SCH (07:56)
[2019-08-18] MEDS: METOCLOPRAMIDE 10 MG TAB PO SCH ×4 (07:56→22:27)
[2019-08-18] MEDS: CHOLECALCIFEROL 1,000 UNIT TAB PO SCH (07:56)
[2019-08-18] MEDS: INSULN ASP PRT/INSULIN ASPART 100 UNIT/ML 10 ML VIAL SQ SCH ×2 (07:57→21:11)
[2019-08-18] MEDS: ISOSORBIDE MONONITRATE ER 60 MG TAB.ER.24H PO SCH (07:57)
[2019-08-18] MEDS: amLODIPine 10 MG TAB PO SCH (07:57)
[2019-08-18] MEDS: ASPIRIN 81 MG PO SCH (07:57)
[2019-08-18] MEDS: INSULIN ASPART (NovoLOG) 100 UNIT/ML VIAL SQ SCH ×4 (08:02→21:21)
[2019-08-18] MEDS: IPRATROPIUM 0.5 MG/2.5 ML NEBU INHALATION SCH ×4 (08:04→19:59)
[2019-08-18] MEDS: SYMBICORT 80-4.5 MCG INHALER INHALATION SCH ×2 (08:04→20:01)
[2019-08-18] MEDS: SODIUM CHLORIDE 0.9% 1,000 ML IV SCH (10:35)
[2019-08-18 12:06] LABS: Glucose,Whole Blood 88 mg/dL (75-99)
[2019-08-18 17:14] LABS: Glucose,Whole Blood 130 mg/dL (75-99)
[2019-08-18 20:03] LABS: Glucose,Whole Blood 202 mg/dL (75-99)
--- NOTE | 2019-08-18 20:47 | PN ---
PROGRESS NOTE This patient is a 74-year-old white female with osteomyelitis of the feet, cellulitis of the feet. Waiting for wound cultures. If positive, going to start her on Augmentin and possibly send her home tomorrow with wound care. She still has some pus coming out of the left foot on the dorsum of the big toe. Vital signs are stable. Afebrile. CARDIOVASCULAR: S1, S2. LUNGS: Clear. GI: Soft. HEMATOLOGY: Negative Homans. PSYCH: Fair mood and affect. Microbiology on the wounds came back positive for Enterococcus faecalis of the right foot, left foot Enterococcus faecalis, anaerobic Gram-positive cocci. Dr. Preez wants her discharged home on IV Zosyn tonight and then switch to oral antibiotics in the morning for diabetic wound infection for discharge home on local care with Medihoney and Augmentin. MMODL / IJN: [id number] /
[2019-08-18] MEDS: MELATONIN 5 MG TABLET PO SCH (21:18)
[2019-08-18] MEDS: PANTOPRAZOLE 40 MG TABLET PO SCH (21:20)
[2019-08-18] MEDS: MONTELUKAST 10 MG TAB PO SCH (22:24)
[2019-08-19] MEDS: HYDROcodone/APAP 7.5-325MG 1 EACH TAB PO PRN ×2 (02:09→08:05)
[2019-08-19] MEDS: AMPICILLIN-SULBACTAM 3 GM in SODIUM CHLORIDE 0.9% 100 ML IVPB SCH ×2 (05:37→10:59)
[2019-08-19 07:07] LABS: Glucose,Whole Blood 149 mg/dL (75-99)
[2019-08-19] MEDS: INSULIN ASPART (NovoLOG) 100 UNIT/ML VIAL SQ SCH ×2 (07:32→12:23)
[2019-08-19] MEDS: SYMBICORT 80-4.5 MCG INHALER INHALATION SCH (07:55)
[2019-08-19] MEDS: IPRATROPIUM 0.5 MG/2.5 ML NEBU INHALATION SCH ×2 (07:56→12:36)
[2019-08-19] MEDS: METOCLOPRAMIDE 10 MG TAB PO SCH ×2 (08:06→12:22)
[2019-08-19] MEDS: ISOSORBIDE MONONITRATE ER 60 MG TAB.ER.24H PO SCH (08:06)
[2019-08-19] MEDS: FUROSEMIDE 40 MG TAB PO SCH (08:06)
[2019-08-19] MEDS: metFORMIN 500 MG TAB PO SCH (08:07)
[2019-08-19] MEDS: DICYCLOMINE 10 MG CAP PO SCH (08:07)
[2019-08-19] MEDS: SUCRALFATE 1 GM TAB PO SCH ×2 (08:07→12:23)
[2019-08-19] MEDS: amLODIPine 10 MG TAB PO SCH (08:07)
[2019-08-19] MEDS: METOPROLOL TARTRATE 50 MG TAB PO SCH (08:08)
[2019-08-19] MEDS: CLOPIDOGREL 75 MG TAB PO SCH (08:08)
[2019-08-19] MEDS: ASPIRIN 81 MG PO SCH (08:08)
[2019-08-19] MEDS: CHOLECALCIFEROL 1,000 UNIT TAB PO SCH (08:08)
[2019-08-19] MEDS: INSULN ASP PRT/INSULIN ASPART 100 UNIT/ML 10 ML VIAL SQ SCH (08:09)
[2019-08-19 11:35] LABS: Glucose,Whole Blood 163 mg/dL (75-99)
[2019-08-19 13:42] VITALS: BP 158/71; PULSE 78; RESP 14; TEMP 98.1
--- NOTE | 2019-08-21 08:09 | CDI ---
Documentation Clarification Form Date: 08/17/2019 11:29:05 AM From: Courtney Lopez RN CCDS Admit Date: 08/15/2019 11:01:00 AM Patient Name: Lorelei Brand Visit Number: [id number] Discharge Date: ATTENTION: The Clinical Documentation Specialists (CDI) and [facility] Coding Staff appreciate your assistance in clarifying documentation. Please respond to the clarification below the line at the bottom and electronically sign. The CDI & [facility] Coding staff will review the response and follow-up if needed. Please note: Queries are made part of the Legal Health Record. If you have any questions, please contact the author of this message via ITS. Dr. Medadro Grande Heart Failure is documented in the ID consult 08/15/19 History/Risk Factors: [id number] female presents to [facility] for Increased swelling and foul discharge from bilateral diabetic great toe ulcers. Medical history DM 2, home oxygen 2Lns at , CAD, HLD, HTN and [place] in 2017 Clinical Indicators: VS/Pulse OX: 08/15 140/69 92 98.3 Temporal 92% room air 08/15/19 BNP: 840 06/16/19 Echocardiogram Results: There is moderate concentric left ventricular hypertrophy. Overall left ventricular systolic function is normal with an EF between 55-60%. The right ventricle is mildly enlarged. Treatment: 08/14 Lasix 40mg po Bid, Imdur 60mg po Daily, Lopressor 50mg po Bid, In your professional opinion, can you please clarify the acuity and type of CHF if known? Chronic Diastolic Heart Failure Heart Failure Ruled Out. Unable to Determine Other, please specify (Last Revision: August 2017) MTDD
--- NOTE | 2019-08-21 12:59 | DS ---
DISCHARGE SUMMARY ADDENDUM: Please add to discharge summary acute on chronic diastolic heart failure. MMODL / IJN: [id number] /
--- NOTE | 2019-08-22 07:20 | CDI ---
Documentation Clarification Form Date: 08/22/2019 07:03:19 AM From: Farideh Jimenez Phone: If you have a question about this query, please contact Mary Dalton, Finish Inspector at [phone] between 8am and 5pm. Admit Date: 08/15/2019 11:01:00 AM Patient Name: Lorelei Brand Visit Number: [id number] Discharge Date: 08/19/2019 02:07:00 PM ATTENTION: The Clinical Documentation Specialists (CDI) and [facility] Coding Staff appreciate your assistance in clarifying documentation. Please respond to the clarification below the line at the bottom and electronically sign. The CDI & [facility] Coding staff will review the response and follow-up if needed. Please note: Queries are made part of the Legal Health Record. If you have any questions, please contact the author of this message via ITS. Dr. Medardo Grande Conflicting documentation has been found in the medical record: 08/15 Bone scan "no evidence for osteomyelitis at this time. PN 08/17 74 y/o w/f with osteomyelitis cellulitis. Per ID consult, "wound does not track down to bone." Please clarify, did patient have osteomyelitis or was this ruled out. History/Risk Factors:DM neuropathy, cellulitis bilateral lower limbs recent foot debridement, recently quit smoking, bilateral DFU's Clinical Indicators: Treatment: Continue empiric Zosyn at 3.375 g every 8 hr. Local wound care with the metahoney followed by moist dressings. In your opinion, what is the most clinically appropriate diagnosis for this patient? Osteomyelitis Osteomyelitis ruled out Other explanation of clinical findings Unable to determine (no explanation for clinical findings) MTDD
--- NOTE | 2019-08-28 10:52 | CDI ---
Documentation Clarification Form Date: 08/22/2019 06:03:00 AM From: Farideh Jimenez Phone: If you have a question about this query, please contact Mary Dalton, Program Director Substance Abuse at [phone] between 8am and 5pm. Admit Date: 08/15/2019 11:01:00 AM Patient Name: Lorelei Brand Visit Number: [id number] Discharge Date: 08/19/2019 02:07:00 PM ATTENTION: The Clinical Documentation Specialists (CDI) and [facility] Coding Staff appreciate your assistance in clarifying documentation. Please respond to the clarification below the line at the bottom and electronically sign. The CDI & [facility] Coding staff will review the response and follow-up if needed. Please note: Queries are made part of the Legal Health Record. If you have any questions, please contact the author of this message via ITS. Dr. Medardo Grande Conflicting documentation has been found in the medical record: 08/15 Bone scan "no evidence for osteomyelitis at this time. PN 08/17 74 y/o w/f with osteomyelitis cellulitis. Per ID consult, "wound does not track down to bone." Please clarify, did patient have osteomyelitis or was this ruled out. History/Risk Factors:DM neuropathy, cellulitis bilateral lower limbs recent foot debridement, recently quit smoking, bilateral DFU's Clinical Indicators: Treatment: Continue empiric Zosyn at 3.375 g every 8 hr. Local wound care with the metahoney followed by moist dressings. In your opinion, what is the most clinically appropriate diagnosis for this patient? Osteomyelitis Osteomyelitis ruled out Other explanation of clinical findings Unable to determine (no explanation for clinical findings) MTDD
--- NOTE | 2019-08-28 23:29 | DS ---
DISCHARGE SUMMARY ADDENDUM TO DISCHARGE SUMMARY: Osteomyelitis ruled out. Cellulitis and diabetic wound infections of the foot into the deep dermis. MMODL / IJN: [id number] /
== END 2019-08-19 14:07 | disposition home health service (06) | DRG 637 ==
LOC: 6NMEDSUR 11:01
PROVIDERS: ADMIT Family Medicine; ATTEND Family Medicine
DX: E11.621 Type 2 diabetes mellitus with foot ulcer (principal); I50.33 Acute on chronic diastolic (congestive) heart failure; L03.116 Cellulitis of left lower limb; L03.115 Cellulitis of right lower limb; I13.0 Hypertensive heart and chronic kidney disease with heart failure and stage 1 through stage 4 chronic kidney disease, or unspecified chronic kidney disease; Z68.41 Body mass index [BMI] 40.0-44.9, adult; E11.628 Type 2 diabetes mellitus with other skin complications; B95.2 Enterococcus as the cause of diseases classified elsewhere; Z79.4 Long term (current) use of insulin; E11.22 Type 2 diabetes mellitus with diabetic chronic kidney disease; E11.40 Type 2 diabetes mellitus with diabetic neuropathy, unspecified; E78.5 Hyperlipidemia, unspecified; F40.240 Claustrophobia; I25.10 Atherosclerotic heart disease of native coronary artery without angina pectoris; I25.2 Old myocardial infarction; J44.9 Chronic obstructive pulmonary disease, unspecified; L84 Corns and callosities; L97.519 Non-pressure chronic ulcer of other part of right foot with unspecified severity; L97.529 Non-pressure chronic ulcer of other part of left foot with unspecified severity; N18.9 Chronic kidney disease, unspecified; Z79.02 Long term (current) use of antithrombotics/antiplatelets; Z79.82 Long term (current) use of aspirin; Z79.899 Other long term (current) drug therapy; Z82.49 Family history of ischemic heart disease and other diseases of the circulatory system; Z87.891 Personal history of nicotine dependence; Z95.5 Presence of coronary angioplasty implant and graft; Z87.01 Personal history of pneumonia (recurrent); Z99.89 Dependence on other enabling machines and devices; M19.90 Unspecified osteoarthritis, unspecified site; E66.9 Obesity, unspecified
CPT/HCPCS: 78315; 80053; 83036; 83880; 84443; 85025; 85652; 87040; 87070; 87075; 87077; 87186; 87205; 94640; 94760

== ENCOUNTER 2019-08-30 11:08 | Inpatient (IN) | payer MEDICARE, OTHER ==
[2019-08-30] MEDS ORDERED: ACETAMINOPHEN TAB 500 MG TAB PO PRN (12:58)
[2019-08-30] MEDS ORDERED: NITROGLYCERIN SL TABS 0.4 MG TAB SUBLINGUAL PRN (12:58)
[2019-08-30] MEDS ORDERED: PIPERACILLIN-TAZOBACTAM 3.375 GM in SODIUM CHLORIDE 0.9% 100 ML IVPB SCH (13:00)
[2019-08-30] MEDS ORDERED: PATIENT'S OWN MED (Dulaglutide [Trulicity] 1.5 MG) SQ SCH (13:00)
[2019-08-30] MEDS: CLOPIDOGREL 75 MG TAB PO SCH (14:15)
[2019-08-30] MEDS: amLODIPine 10 MG TAB PO SCH (14:15)
[2019-08-30] MEDS: ISOSORBIDE MONONITRATE ER 60 MG TAB.ER.24H PO SCH (14:16)
[2019-08-30] MEDS: metFORMIN 500 MG TAB PO SCH ×2 (14:16→20:37)
[2019-08-30] MEDS: LISINOPRIL 20 MG TAB PO SCH (14:16)
[2019-08-30] MEDS: DICYCLOMINE 10 MG CAP PO SCH (14:16)
[2019-08-30] MEDS: PANTOPRAZOLE 40 MG/10 ML VIAL IVP SCH (14:16)
[2019-08-30] MEDS: METOPROLOL TARTRATE 50 MG TAB PO SCH ×2 (14:16→20:37)
[2019-08-30] MEDS ORDERED: HYDROcodone/APAP 7.5-325MG 1 EACH TAB ONE (14:23)
[2019-08-30] MEDS: HYDROcodone/APAP 7.5-325MG 1 EACH TAB PO PRN ×2 (14:27→21:12)
[2019-08-30] MEDS: FUROSEMIDE 40 MG TAB PO SCH (14:28)
[2019-08-30] MEDS ORDERED: VANCOMYCIN IV PER PHARMACY 1 EACH MISC MISCELLANE PRN (14:49)
[2019-08-30 15:15] LABS: Basophils % (A) 0 %; Eosinophils # (A) 0.6 k/uL (0-0.7); Eosinophils % (A) 4 %; HCT 33.3 % (34.0-46.0); HGB 10.4 gm/dL (11.4-16.0); Hypochromasia Moderate; Lymphocytes # (A) 3.3 k/uL (1.0-4.8); Lymphocytes % (A) 24 %; MCH 24.2 pg (25.0-35.0); MCHC 31.3 g/dL (31.0-37.0); MCV 77.4 fL (80.0-100.0); Mean Platelet Volume 6.9; Microcytosis Slight; Monocytes # (A) 0.6 k/uL (0-1.0); Monocytes % (A) 5 %; Neutrophils # (A) 9.2 k/uL (1.3-7.7); Neutrophils % (A) 66 %; Platelet Count 413 k/uL (150-450); RDW 15.5 % (11.5-15.5)
[2019-08-30] MEDS ORDERED: VANCOMYCIN 1,750 MG in SODIUM CHLORIDE 0.9% 500 ML 500 ML IVPB ONE (15:15)
--- NOTE | 2019-08-30 15:20 | XR ---
EXAMINATION TYPE: XR foot complete bilateral DATE OF EXAM: 08/30/2019 CLINICAL HISTORY: pain TECHNIQUE: Frontal, lateral and oblique images of the right foot are obtained. COMPARISON: None. FINDINGS: There is no acute fracture/dislocation evident. The joint spaces appear within normal bella its. Ulceration noted plantar aspect of the right. No evidence for osteomyelitis. Soft tissue swelli ng noted likely reflecting cellulitis. Plantar calcaneal spur formation. Moderate hallux valgus defor mity first metatarsophalangeal joint. IMPRESSION: Ulceration noted plantar aspect of the right. No evidence for osteomyelitis. Soft tissue swelling no severo likely reflecting cellulitis. ICD 10 NO FRACTURE, INITIAL EVALUATION EXAMINATION TYPE: XR foot complete bilateral DATE OF EXAM: 08/30/2019 CLINICAL HISTORY: pain TECHNIQUE: Frontal, lateral and oblique images of the left foot are obtained. COMPARISON: None. FINDINGS: There is no acute fracture/dislocation evident. The joint spaces appear within normal bella its. Ulceration noted plantar aspect of the left. No evidence for osteomyelitis. Soft tissue swelling noted likely reflecting cellulitis. IMPRESSION: Ulceration noted plantar aspect of the left. No evidence for osteomyelitis. Soft tissue swelling note d likely reflecting cellulitis. ICD 10 NO FRACTURE, INITIAL EVALUATION
[2019-08-30 15:23] LABS: Albumin 3.7 g/dL (3.5-5.0); Calcium 9.4 mg/dL (8.4-10.2); Potassium 3.7 mmol/L (3.5-5.1); Total Bilirubin 0.4 mg/dL (0.2-1.3); Total Protein 6.9 g/dL (6.3-8.2)
[2019-08-30] MEDS ORDERED: IPRATROPIUM 0.5 MG/2.5 ML NEBU INHALATION ONE (15:45)
[2019-08-30] MEDS: COLLAGENASE 250 UNIT/GM OINTMENT 30 GM TUBE TOPICAL SCH (16:59)
[2019-08-30 17:08] LABS: Glucose,Whole Blood 138 mg/dL (75-99)
[2019-08-30 17:30] LABS: Erythrocyte Sedimentation Rate 74 mm/hr (0-20)
[2019-08-30] MEDS: metroNIDAZOLE 500 MG TAB PO SCH ×2 (17:41→21:18)
[2019-08-30] MEDS: INSULIN ASPART (NovoLOG) 100 UNIT/ML VIAL SQ SCH ×2 (17:41→21:18)
[2019-08-30] MEDS: SUCRALFATE 1 GM TAB PO SCH ×2 (18:17→20:37)
[2019-08-30] MEDS: METOCLOPRAMIDE 10 MG TAB PO SCH ×2 (18:18→20:37)
[2019-08-30] MEDS: INSULN ASP PRT/INSULIN ASPART 100 UNIT/ML 10 ML VIAL SQ SCH (18:18)
[2019-08-30] MEDS: AMPICILLIN-SULBACTAM 3 GM in SODIUM CHLORIDE 0.9% 100 ML IVPB SCH (20:06)
[2019-08-30 20:30] LABS: Glucose,Whole Blood 127 mg/dL (75-99)
--- NOTE | 2019-08-30 20:35 | PCN ---
PROCEDURE NOTE This is a 74-year-old female patient who has a diagnosis of bilateral chronic wounds, right and left foot, plantar aspect base of the big toe. Right foot wound measures 2 x 2 cm and left measures 2 x 0.5 cm with some callus formation and some devitalized tissue. Patient has a history of neuropathy. Wound was prepped and drapes were applied in the usual sterile manner. Using sharp scissors, we did selective debridement. Some devitalized tissue was removed, which was sent for deep culture. No active bleeding was noted. Then the left foot was prepped and drapes were applied in a sterile manner. Using sharp scissors, we did selective debridement. Devitalized tissue was removed. Some callus was also removed. No active bleeding was noted. Wound was irrigated with saline. Santyl cream was applied to the wound. PLAN: Change the wound dressing daily with Santyl cream, and if she is discharged from the hospital, patient will follow up in the wound clinic. MMODL / IJN: [id number] /
[2019-08-30] MEDS: ATORVASTATIN 10 MG TAB PO SCH (20:36)
[2019-08-30] MEDS: MELATONIN 5 MG TABLET PO SCH (20:36)
[2019-08-30] MEDS: MONTELUKAST 10 MG TAB PO SCH (20:37)
[2019-08-30] MEDS: CALCIUM CARBONATE 500 MG CHEWABLE PO PRN (21:20)
--- NOTE | 2019-08-30 22:09 | CONS ---
DATE OF CONSULTATION: 08/30/2019 This is a 74-year-old diabetic female. She has a history of callus formation noted on the plantar aspect of the right and left foot, base of the big toe, for the last one month. The patient has been treated with local wound care using Medihoney and she came in with infected wound of right and left foot. The patient is under the care of Infectious Disease and is at present on IV antibiotic. MEDICAL HISTORY: History of diabetes, coronary artery disease, post coronary artery stent. On examination, neck is supple. Trachea central. CHEST: Clear on auscultation. ABDOMEN: Soft. Femorals are 1+, PT, DP Doppler. Patient has a right foot plantar aspect wound measuring 2 x 2 cm with some devitalized tissue. Left foot has a wound on the plantar aspect base of the big toe, 2 x 1.5 cm, with some devitalized tissue and some callus formation. PLAN: Debridement of the wound and deep culture. IV antibiotic. Follow with you. MMODL / IJN: [id number] / SE
--- NOTE | 2019-08-30 23:34 | CONS ---
CONSULTATION DATE OF SERVICE: 08/30/2019 REASON FOR CONSULTATION: Bilateral diabetic foot wounds and cellulitis. HISTORY OF PRESENT ILLNESS: The patient is a 74-year-old female with a past medical history significant for bilateral plantar wounds with secondary cellulitis. She was recently admitted at this facility. Local wound cultures were positive for enterococcus and anaerobes. The patient was treated with IV Unasyn. She did have a bone scan that was negative for any osteomyelitis. After overall significant improvement, she was discharged home on oral Augmentin. Unfortunately, the patient developed some blisters but no rash, so she stopped taking her Augmentin. The patient is currently being followed in the home care setting by home care nurses, and apparently they noticed some maceration around the wound, calling it pus pocket, which is not correct. Subsequently the patient has been admitted to the hospital for worsening of her wound. She was started on Zosyn. Infectious Disease was consulted for further recommendations regarding antibiotic therapy. The patient currently denies having any fever or any chills. Denies having any chest pain or shortness of breath or cough. No abdominal pain or any diarrhea. She did have underlying diabetic neuropathy and hence denies significant pain to bilateral diabetic foot wound areas. REVIEW OF SYSTEMS: Positive points have been mentioned in HPI. Rest of systems negative. PAST MEDICAL HISTORY: Asthma, coronary artery disease, heart failure, COPD, diabetes mellitus, hypertension, hyperlipidemia, [place], osteoarthritis, pneumonia, renal insufficiency, sleep apnea and diabetic foot ulcer with cellulitis. PAST SURGICAL HISTORY: Appendectomy, cholecystectomy, PTCA with stent and bilateral diabetic foot wound debridement. SOCIAL HISTORY: Remote history of smoking. No drinking or drug use. FAMILY HISTORY: Father with history of angina. Mother also has history of angina, from [place] at the age of 74. ALLERGIES: Listed as AUGMENTIN. However, it was mostly oral sores and FLAGYL was gastric upset and not true allergies. MEDICATIONS: The patient is currently on Tylenol, [place], Norvasc, Zosyn, Symbicort, Tums, vitamin D3, Plavix, Bentyl, Lasix, NovoLog, Zestril, melatonin, Glucophage, Reglan, Lopressor, Singulair, Protonix, Requip and Carafate. PHYSICAL EXAMINATION: On examination, her blood pressure is 125/67 with a pulse of 84, temperature 98.3. She is 90% on room air. General description is an elderly female lying in bed in no distress. No tachypnea or accessory muscle of respiration use. HEENT examination shows pallor. No scleral icterus. Oral mucosa membrane is dry. No pharyngeal erythema or thrush. NECK: Trachea is central. No thyromegaly. LUNGS: Unlabored breathing. Clear to auscultation anteriorly. No wheeze or crackle. HEART: S1, S2. Regular rate and rhythm. No added sound. ABDOMEN: Soft. No tenderness. No guarding or rigidity. EXTREMITIES: No edema of the feet. On examination of bilateral feet, the plantar aspect did have a wound with some slough tissue, especially the right foot plantar wound area, with minimal surrounding swelling, redness. No foul-smelling drainage. Neurologically the patient is awake, alert, oriented x3. Mood and affect normal. LABS/IMAGING: Hemoglobin is 10.4, white count of 14. BUN of 17, creatinine 0.80. Electrolytes have been normal. Liver enzymes are normal. X-rays were negative for any bony changes. DIAGNOSTIC IMPRESSION AND PLAN: 1. Patient with bilateral diabetic foot plantar ulcers with secondary cellulitis in this patient with recent culture positive for enterococcus and anaerobes. The patient did have a bedside debridement of these wounds by Vascular Surgery. Hopefully culture has been sent, which will be followed. We will need to cover for the same pathogen she grew last time after the new cultures are available. 2. Patient with a listed allergy to Augmentin and Flagyl, which is more of a side effect than true allergies. PLAN: 1. Discontinue Zosyn. 2. Start the patient on Unasyn 3 grams q.6 hours. 3. Local wound care with Santyl followed by moist dressing. 4. Will follow on clinical condition and culture to further adjust medication if needed. Thank you for this consultation. Will follow this patient along with you. MMODL / IJN: [id number] / MTDD
[2019-08-31] MEDS: AMPICILLIN-SULBACTAM 3 GM in SODIUM CHLORIDE 0.9% 100 ML IVPB SCH ×5 (01:06→23:01)
[2019-08-31] MEDS: HYDROcodone/APAP 7.5-325MG 1 EACH TAB PO PRN ×3 (05:31→20:39)
[2019-08-31 07:07] LABS: Glucose,Whole Blood 132 mg/dL (75-99)
--- NOTE | 2019-08-31 07:32 | HP ---
HISTORY AND PHYSICAL A 74-year-old white female with past medical history of plantar wounds secondary cellulitis admitted after failing outpatient treatment after having a PICC line for multiple weeks. She was admitted with worsening redness and swelling to her entire feet with deepening wounds into her feet for which need debridement. She is probably high risk for losing her toes and part of her feet bilaterally. She denies abdominal pain, diarrhea, or some mild chills but no fevers, high risk for recurrent infection and possible osteomyelitis. PAST MEDICAL HISTORY: Asthma, coronary artery disease, COPD, heart failure, diabetes mellitus, hypertension, myocardial infarction, osteoarthritis, pneumonia, renal insufficiency, sleep apnea, diabetic foot ulcer, cellulitis. SURGICAL HISTORY: Appendectomy, cholecystectomy, PTCA with stents, bilateral diabetic foot wound debridement. SOCIAL HISTORY: Remote history of smoking. No drinking. No drug use. FAMILY HISTORY: Mother with angina. Dad from [place]. ALLERGIES: Questionable if she is allergic to any FLAGYL or AUGMENTIN. MEDICATIONS: See list. PHYSICAL EXAMINATION: Blood pressure is 120s over 60s, O2 saturation is 90% on room air. She is a little bit short of breath also. Temp 98.3, pulse 84. CARDIOVASCULAR: S1, S2. LUNGS: Show rales at the bases. HEART: S1, S2. ABDOMEN: Soft. EXTREMITIES: Edema, redness, swelling, deep ulcerations into the bilateral plantar wound areas of bilateral feet with foul smelling discharge. NEUROLOGIC: Alert and orient x3. LABS: Hemoglobin is 10.4, white count 14. BUN is 17, creatinine 0.8. LFTs are normal. ASSESSMENT: Bilateral diabetic foot plantar ulcers with cellulitis with diabetic wound infections, deep. Will need incision and drainage in the OR with Dr. Bowles and IV antibiotics are being started. Local wound care will be done. Infectious Disease and Vascular consults for debridement. MMODL / IJN: [id number] /
[2019-08-31] MEDS: INSULN ASP PRT/INSULIN ASPART 100 UNIT/ML 10 ML VIAL SQ SCH ×2 (07:52→17:03)
[2019-08-31] MEDS: INSULIN ASPART (NovoLOG) 100 UNIT/ML VIAL SQ SCH ×4 (07:54→20:30)
[2019-08-31] MEDS: PANTOPRAZOLE 40 MG/10 ML VIAL IVP SCH (07:55)
[2019-08-31] MEDS: ASPIRIN 81 MG PO SCH (08:00)
[2019-08-31] MEDS ORDERED: NON FORMULARY DRUG (Fluticasone/Umeclidin/Vilanter [Trelegy Ellipta 100-62.5-25] 1 PUFF) INHALATION SCH (08:00)
[2019-08-31] MEDS: ISOSORBIDE MONONITRATE ER 60 MG TAB.ER.24H PO SCH (08:00)
[2019-08-31] MEDS: amLODIPine 10 MG TAB PO SCH (08:00)
[2019-08-31] MEDS: metFORMIN 500 MG TAB PO SCH ×2 (08:00→20:36)
[2019-08-31] MEDS: CLOPIDOGREL 75 MG TAB PO SCH (08:00)
[2019-08-31] MEDS: DICYCLOMINE 10 MG CAP PO SCH (08:00)
[2019-08-31] MEDS: SUCRALFATE 1 GM TAB PO SCH ×4 (08:00→20:36)
[2019-08-31] MEDS: FUROSEMIDE 40 MG TAB PO SCH ×2 (08:01→15:29)
[2019-08-31] MEDS: METOPROLOL TARTRATE 50 MG TAB PO SCH ×2 (08:01→20:36)
[2019-08-31] MEDS: LISINOPRIL 20 MG TAB PO SCH (08:01)
[2019-08-31] MEDS: METOCLOPRAMIDE 10 MG TAB PO SCH ×4 (08:02→20:36)
[2019-08-31] MEDS: CHOLECALCIFEROL 1,000 UNIT TAB PO SCH (08:02)
[2019-08-31] MEDS: COLLAGENASE 250 UNIT/GM OINTMENT 30 GM TUBE TOPICAL SCH (08:02)
[2019-08-31 08:19] LABS: Basophils % (A) 0 %; Eosinophils # (A) 0.5 k/uL (0-0.7); Eosinophils % (A) 3 %; HCT 33.8 % (34.0-46.0); HGB 10.7 gm/dL (11.4-16.0); Hypochromasia Slight; Lymphocytes % (A) 15 %; MCH 24.4 pg (25.0-35.0); MCHC 31.6 g/dL (31.0-37.0); MCV 77.2 fL (80.0-100.0); Microcytosis Slight; Monocytes # (A) 0.7 k/uL (0-1.0); Monocytes % (A) 5 %; Neutrophils % (A) 74 %; Platelet Count 402 k/uL (150-450); RBC 4.38 m/uL (3.80-5.40); RDW 15.9 % (11.5-15.5); WBC 13.5 k/uL (3.8-10.6)
[2019-08-31] MEDS: IPRATROPIUM 0.5 MG/2.5 ML NEBU INHALATION SCH ×4 (08:32→19:56)
[2019-08-31 08:39] LABS: African American GFR (CKD) >90 (>60 ml/min/1.73 sqM); Anion Gap 9 mmol/L; Blood Urea Nitrogen 15 mg/dL (7-17); Calcium 9.3 mg/dL (8.4-10.2); Carbon Dioxide 30 mmol/L (22-30); Chloride 95 mmol/L (98-107); Glucose 136 mg/dL (74-99); Non-African American GFR(CKD) 87 (>60 ml/min/1.73 sqM); Potassium 3.9 mmol/L (3.5-5.1); Sodium 134 mmol/L (137-145)
[2019-08-31] MEDS: SYMBICORT 80-4.5 MCG INHALER INHALATION SCH ×2 (08:48→19:58)
[2019-08-31] MEDS ORDERED: OMEGA PO SCH (09:00)
[2019-08-31] MEDS ORDERED: FATTY ACIDS PO SCH (09:00)
[2019-08-31 11:57] LABS: Glucose,Whole Blood 109 mg/dL (75-99)
--- NOTE | 2019-08-31 15:25 | P.CNPUL ---
History of Present Illness Consult date: 08/31/19 Reason for consult: dyspnea, COPD Chief complaint: Shortness of breath History of present illness: This is a 74-year-old female who was seen evaluated examined, patient to admitted into the hospital with bilateral plantar wound also has a baseline history of COPD and GERD, patient denies any chest pain breathing has been stable, bilateral plantar wound have been debrided by Dr. Bowles polymicrobial bacteria has been noted positive for enterococcus and anaerobes, on specific questioning patient denies any chest pain or shortness of breath currently her COPD has been stable, she is getting broad-spectrum antibiotics for her plantar wound, Review of Systems All systems: negative Past Medical History Past Medical History: Asthma, Coronary Artery Disease (CAD), Heart Failure, COPD, Diabetes Mellitus, Hyperlipidemia, Hypertension, Myocardial Infarction ([place]), Osteoarthritis (OA), Pneumonia, Renal Disease, Skin Disorder, Sleep Apnea/ CPAP/BIPAP Additional Past Medical History / Comment(s): NIDDM type II, neuropathy bilateral feet, bilateral diabetic great toe ulcers with 2ndary cellulitis, colitis with recent flare, recent r side pneumonia, renal insufficiency, IRA with no device, home oxygen at 2L/NC at HS, RLS, diarrhea. Last Myocardial Infarction Date:: 2017 History of Any Multi-Drug Resistant Organisms: None Reported Past Surgical History: Appendectomy, Breast Surgery, Cholecystectomy, Heart Catheterization, Heart Catheterization With Stent Additional Past Surgical History / Comment(s): PCI with stents, R lung thoracotomy/decortication for empyema, L breast benign bx, colonoscopy Past Anesthesia/Blood Transfusion Reactions: No Reported Reaction Additional Past Anesthesia/Blood Transfusion Reaction / Comment(s): severe claustrophobia Date of Last Stent Placement:: 11/30/2017 Past Psychological History: No Psychological Hx Reported Additional Psychological History / Comment(s): Severe claustrophobia. Pt resides alone in her home. She has 14 stair steps to get up to her bathroom/bedroom. She is established with [facility]- a nurse for wound care and PT. Smoking Status: Former smoker Past Alcohol Use History: None Reported Additional Past Alcohol Use History / Comment(s): STARTED SMOKING AGE 18 (1963) AND QUIT 1994. SMOKED 1 PPD. STATES SHE IS AN ALCOHOLIC AND QUIT DRINKING 29 yrs ago Past Drug Use History: None Reported - Past Family History Brother(s) Family Medical History: Cancer Father Family Medical History: Chest Pain / Angina Additional Family Medical History / Comment(s): Father of a MT at the age of 77yrs. Mother Family Medical History: Chest Pain / Angina Additional Family Medical History / Comment(s): Mother of a MT at the age of 74yrs. Medications and Allergies Home Medications Medication Instructions Recorded Confirmed Type Cholecalciferol [Vitamin D3 (25 1,000 unit PO DAILY 02/26/15 08/30/19 History Mcg = 1000 Iu)] Clopidogrel [Plavix] 75 mg PO DAILY 09/05/15 08/30/19 History Montelukast Sodium [Singulair] 10 mg PO HS #30 tab 10/25/15 08/30/19 Rx Nitroglycerin Sl Tabs [Nitrostat] 0.4 mg SUBLINGUAL Q5M PRN #0 tab 09/24/16 08/30/19 Rx Melatonin 5 mg PO HS 02/09/18 08/30/19 History Metoprolol Tartrate [Lopressor] 50 mg PO BID 02/09/18 08/30/19 History Downs-3 Fatty Acids [Downs-3] 2,000 mg PO DAILY 09/29/18 08/30/19 History Isosorbide Mononitrate ER [Imdur] 60 mg PO DAILY #30 tab.er.24h 11/17/18 08/30/19 Rx Dicyclomine [Bentyl] 10 mg PO DAILY 04/16/19 08/30/19 History Aspirin 81 mg PO DAILY chew 04/17/19 08/30/19 Rx Acetaminophen Tab [Tylenol] 500 mg PO Q6HR PRN tab 06/23/19 08/30/19 Rx Fluticasone/Umeclidin/Vilanter 1 puff INHALATION RT-DAILY 07/07/19 08/30/19 History [Trelegy Ellipta 100-62.5-25] HYDROcodone/APAP 7.5-325MG [[place] 1 tab PO Q6H PRN 07/07/19 08/30/19 History 7.5-325] Omeprazole 20 mg PO HS 07/07/19 08/30/19 History rOPINIRole HCL [Requip] 1 mg PO TID tab 07/09/19 08/30/19 Rx Dulaglutide [Trulicity] 1.5 mg SQ WE 08/15/19 08/30/19 History Furosemide [Lasix] 40 mg PO BID 08/15/19 08/30/19 History Insulin Aspart Protam & Aspart 30 unit SQ BID 08/15/19 08/30/19 History [NovoLOG MIX 70-30 Flexpen] Metoclopramide [Reglan] 10 mg PO QID 08/15/19 08/30/19 History Sucralfate [Carafate] 1 gm PO QID 08/15/19 08/30/19 History metFORMIN HCL 1,000 mg PO BID 08/15/19 08/30/19 History Ciprofloxacin HCl [Cipro] 500 mg PO Q12H 08/30/19 08/30/19 History Lisinopril 40 mg PO DAILY 08/30/19 08/30/19 History Simvastatin [Zocor] 20 mg PO HS 08/30/19 08/30/19 History amLODIPine [Norvasc] 10 mg PO DAILY 08/30/19 08/30/19 History Allergies Allergy/AdvReac Type Severity Reaction Status Date / Time amoxicillin [From Augmentin] Allergy Rash/Hives Verified 08/30/19 12:27 clavulanic acid Allergy Rash/Hives Verified 08/30/19 12:27 [From Augmentin] metronidazole [From Flagyl] Allergy Nausea & Verified 08/30/19 15:31 Vomiting adhesive tape AdvReac bruises,"paper Verified 08/15/19 12:33 tape is ok" albuterol AdvReac Rapid Verified 08/15/19 12:33 Heart Rate stress test injection Allergy Anaphylaxis Uncoded 07/07/19 12:07 sun dried tomatoes Allergy lip Uncoded 07/07/19 12:07 swelling Physical Exam Vitals: Vital Signs Temp Pulse Pulse Resp BP Pulse Ox 08/31/19 12:06 84 08/31/19 12:00 88 08/31/19 08:39 86 08/31/19 08:00 89 17 08/31/19 07:00 98.6 F 89 17 140/78 97 08/30/19 20:00 86 08/30/19 19:58 98.3 F 84 17 125/67 90 L 08/30/19 19:53 86 Intake and Output 08/31/19 08/31/19 08/31/19 06:59 14:59 22:59 Other: # Voids 1 - Constitutional General appearance: average body habitus, cooperative, disheveled, no acute distress - EENT Eyes: EOMI, PERRLA ENT: normal oropharynx Ears: bilateral: normal - Neck Carotids: bilateral: upstroke normal Thyroid: bilateral: normal size - Respiratory Respiratory: bilateral: CTA - Cardiovascular Rhythm: regular Heart sounds: normal: S1, S2 - Gastrointestinal General gastrointestinal: soft - Integumentary Integumentary: normal turgor - Neurologic Neurologic: CNII-XII intact - Musculoskeletal Musculoskeletal: gait normal, generalized weakness, strength equal bilaterally - Psychiatric Psychiatric: A&O x's 3, appropriate affect, intact judgment & insight Results - Laboratory Findings CBC and BMP: 08/31/19 07:32 08/31/19 07:32 Abnormal lab findings: Abnormal Labs 08/30/19 08/30/19 08/30/19 14:51 14:51 17:06 WBC 14.0 H Hgb 10.4 L Hct 33.3 L MCV 77.4 L MCH 24.2 L RDW Neutrophils # 9.2 H ESR 74 H Sodium 133 L Chloride 93 L Glucose 139 H POC Glucose (mg/dL) 138 H 08/30/19 08/31/19 08/31/19 20:29 07:05 07:32 WBC 13.5 H Hgb 10.7 L Hct 33.8 L MCV 77.2 L MCH 24.4 L RDW 15.9 H Neutrophils # 10.0 H ESR Sodium Chloride Glucose POC Glucose (mg/dL) 127 H 132 H 08/31/19 08/31/19 07:32 11:54 WBC Hgb Hct MCV MCH RDW Neutrophils # ESR Sodium 134 L Chloride 95 L Glucose 136 H POC Glucose (mg/dL) 109 H Assessment and Plan Assessment: COPD without any exacerbation respiratory status stable Bilateral plantar infection of both feet on antibiotics status post wound deep wound cleaning Congestive heart failure Type 2 diabetes mellitus Hypertension hypertensive cardiovascular disease [place] Prior history of pneumonia Obstructive sleep apnea Recent cellulitis and diabetic foot Plan: From pulmonary standpoint monitor and observe patient closely can do nebulizer as needed Continue broad-spectrum antibiotics bilateral plantar wounds Increase activity as tolerated Follow clinical course closely Time with Patient: Greater than 30
[2019-08-31 16:53] LABS: Glucose,Whole Blood 120 mg/dL (75-99)
[2019-08-31 20:28] LABS: Glucose,Whole Blood 124 mg/dL (75-99)
[2019-08-31] MEDS: MONTELUKAST 10 MG TAB PO SCH (20:36)
[2019-08-31] MEDS: MELATONIN 5 MG TABLET PO SCH (20:36)
[2019-08-31] MEDS: ATORVASTATIN 10 MG TAB PO SCH (20:36)
--- NOTE | 2019-08-31 21:51 | PN ---
PROGRESS NOTE DATE OF SERVICE: 08/31/2019 REASON FOR FOLLOWUP: Bilateral diabetic foot ulcer and cellulitis. INTERVAL HISTORY: The patient is currently afebrile. She is breathing comfortably. The patient denies having any chest pain or shortness of breath or cough. No nausea or vomiting. Pain to the foot area is currently controlled. PHYSICAL EXAMINATION: Blood pressure 132/63 with a pulse of 79, temperature 98.5. She is 93% on room air. General description is an elderly female up in the room in no distress. RESPIRATORY SYSTEM: Unlabored breathing. Clear to auscultation anteriorly. HEART: S1, S2. Regular rate and rhythm. ABDOMEN: Soft. No tenderness. LABS: White count 13.5. Wound culture currently pending. Creatinine 0.70. DIAGNOSTIC IMPRESSION AND PLAN: Patient with bilateral diabetic foot infection, status post debridement of the wounds. Cultures are currently pending. We will continue the patient on Unasyn, adjusting antibiotic further on the basis of the culture report. Continue with supportive care. MMODL / IJN: [id number] /
[2019-09-01] MEDS: HYDROcodone/APAP 7.5-325MG 1 EACH TAB PO PRN ×4 (03:22→20:13)
[2019-09-01] MEDS: AMPICILLIN-SULBACTAM 3 GM in SODIUM CHLORIDE 0.9% 100 ML IVPB SCH ×3 (06:04→17:34)
[2019-09-01 06:55] LABS: Glucose,Whole Blood 126 mg/dL (75-99)
[2019-09-01] MEDS: INSULIN ASPART (NovoLOG) 100 UNIT/ML VIAL SQ SCH ×4 (06:56→21:09)
[2019-09-01] MEDS: SYMBICORT 80-4.5 MCG INHALER INHALATION SCH ×2 (07:17→19:38)
[2019-09-01] MEDS: IPRATROPIUM 0.5 MG/2.5 ML NEBU INHALATION SCH ×4 (07:17→19:37)
[2019-09-01] MEDS: COLLAGENASE 250 UNIT/GM OINTMENT 30 GM TUBE TOPICAL SCH (08:14)
[2019-09-01] MEDS: ASPIRIN 81 MG PO SCH (08:15)
[2019-09-01] MEDS: LISINOPRIL 20 MG TAB PO SCH (08:16)
[2019-09-01] MEDS: CHOLECALCIFEROL 1,000 UNIT TAB PO SCH (08:16)
[2019-09-01] MEDS: DICYCLOMINE 10 MG CAP PO SCH (08:16)
[2019-09-01] MEDS: ISOSORBIDE MONONITRATE ER 60 MG TAB.ER.24H PO SCH (08:16)
[2019-09-01] MEDS: amLODIPine 10 MG TAB PO SCH (08:16)
[2019-09-01] MEDS: SUCRALFATE 1 GM TAB PO SCH ×4 (08:16→20:26)
[2019-09-01] MEDS: CLOPIDOGREL 75 MG TAB PO SCH (08:16)
[2019-09-01] MEDS: FUROSEMIDE 40 MG TAB PO SCH ×2 (08:16→16:00)
[2019-09-01] MEDS: METOPROLOL TARTRATE 50 MG TAB PO SCH ×2 (08:16→20:26)
[2019-09-01] MEDS: metFORMIN 500 MG TAB PO SCH ×2 (08:16→21:08)
[2019-09-01] MEDS: METOCLOPRAMIDE 10 MG TAB PO SCH ×4 (08:17→20:26)
[2019-09-01] MEDS: PANTOPRAZOLE 40 MG/10 ML VIAL IVP SCH (08:20)
[2019-09-01] MEDS: INSULN ASP PRT/INSULIN ASPART 100 UNIT/ML 10 ML VIAL SQ SCH ×2 (08:25→17:33)
[2019-09-01 11:09] LABS: Glucose,Whole Blood 121 mg/dL (75-99)
[2019-09-01 16:33] LABS: Glucose,Whole Blood 114 mg/dL (75-99)
--- NOTE | 2019-09-01 18:40 | P.PN ---
Subjective Progress Note Date: 09/01/19 This is a 74-year-old female admitted with plantar infection of bilateral feet and multiple other medical issues. Status post debridement, tolerated well. Pain controlled. Maintained on Unasyn. Blood sugars controlled. Denies any chest pain, palpitations or shortness of breath. Objective - Vital Signs Vital signs: Vital Signs Temp 97.6 F 09/01/19 14:06 Pulse 76 09/01/19 15:42 Resp 15 09/01/19 14:06 BP 133/74 09/01/19 14:06 Pulse Ox 94 L 09/01/19 14:06 Intake & Output 08/31/19 09/01/19 09/01/19 18:59 06:59 18:59 Intake Total 580 856 Balance 580 856 Intake: Intake, IV Titration 100 100 Amount Ampicillin-Sulbactam 3 gm 100 100 In Sodium Chloride 0.9% 100 ml @ 200 mls/hr IVPB Q6HR REPLACED BY [facility] Rx#:[id number] Oral 480 756 Other: Voiding Method Toilet Toilet # Voids 1 2 - Exam PHYSICAL EXAM: VITAL SIGNS: As above GENERAL: Sitting up in bed, no acute distress HEENT: Conjunctivae normal. eyes normal. Oral mucosa moist NECK: No JVD. No thyroid enlargement. No LNs CARDIOVASCULAR: S1, S2 regular.. No murmur RESPIRATION: Breath sounds diminished in the bases. No rhonchi or crackles. ABDOMEN: Soft, nontender . No guarding. no masses palpable. Bowel sounds heard. LEGS: Bilateral feet dressings clean dry and intact PSYCHIATRY: Alert and oriented X3, mood and affect normal. NERVOUS SYSTEM: Cranial N 2-12 grossly normal. Moves all 4 limbs. Diffuse weakness No focal deficits. Strength and sensation grossly intact.. Skin: no lesions, no rash Joints: No active swelling. No inflammation. Lymphatic system. No LN neck axilla or groin. Microbiology 08/30/19 16:40 Toe - Left First Anaerobic Culture - Preliminary 08/30/19 16:40 Toe - Left First Gram Stain - Preliminary 08/30/19 16:40 Toe - Left First Wound Culture - Preliminary - Labs CBC & Chem 7: 08/31/19 07:32 08/31/19 07:32 Labs: Abnormal Lab Results - Last 24 Hours (Table) 08/31/19 09/01/19 09/01/19 Range/Units 20:23 06:54 11:08 POC Glucose (mg/dL) 124 H 126 H 121 H (75-99) mg/dL 09/01/19 Range/Units 16:32 POC Glucose (mg/dL) 114 H (75-99) mg/dL Microbiology - Last 24 Hours (Table) 08/30/19 16:40 Anaerobic Culture - Preliminary Toe - Left First Assessment and Plan Assessment: Chronic Plantar wounds of bilateral feet status post I&D. Refer to nursing documentation. Recently hospitalized with bilateral diabetic foot wounds with secondary cellulitis COPD, stable CHF Diabetes mellitus type II hypertension CAD, history of [place] Obstructive sleep apnea Morbid obesity, BMI 39.8 Chronic kidney disease stage III Degenerative joint disease with gait dysfunction, history of falls Chronic hypoxic respiratory failure, wears 2 L nasal cannula at home History of nicotine dependence Plan: Continue on current medication regime ,monitoring and symptomatic treatment. Maintain nebulized bronchodilators and wound care as per infectious disease. Potential PICC line pending final cultures. Discharge planning in progress for possibly Wednesday to [facility] subacute rehab. The impression and plan of care has been dictated as directed. : I performed a history and examination of this patient, discussed the same with the dictator. I agree with the dictator's note ,documented as a scribe. Any additional findings or plans will be noted.
[2019-09-01] MEDS: MONTELUKAST 10 MG TAB PO SCH (20:25)
[2019-09-01] MEDS: MELATONIN 5 MG TABLET PO SCH (20:26)
[2019-09-01] MEDS: ATORVASTATIN 10 MG TAB PO SCH (20:26)
[2019-09-01 20:47] LABS: Glucose,Whole Blood 131 mg/dL (75-99)
[2019-09-02] MEDS: AMPICILLIN-SULBACTAM 3 GM in SODIUM CHLORIDE 0.9% 100 ML IVPB SCH ×4 (00:34→18:23)
--- NOTE | 2019-09-02 00:44 | PN ---
PROGRESS NOTE DATE OF SERVICE: 09/01/2019. REASON FOR FOLLOWUP: Bilateral diabetic foot ulcers and cellulitis. INTERVAL HISTORY: The patient is currently afebrile. She is breathing comfortably. Denies having any chest pain or shortness of breath or cough. No nausea, vomiting or pain to the bilateral foot wound area. PHYSICAL EXAMINATION: Blood pressure 130/62 with a pulse of 72, temperature 98.7. She is 93% on room air. General description is an elderly female up in the room in no distress. Respiratory system: Unlabored breathing. Clear to auscultation anteriorly. Heart S1, S2. Regular rate and rhythm. Abdomen soft, no tenderness. Examination of bilateral foot wound overall surrounding swelling, redness has improved. No drainage was noticed. LABS: Wound cultures so far negative. DIAGNOSTIC IMPRESSION AND PLAN: Patient with bilateral diabetic foot ulcer with secondary cellulitis, status post debridement. Culture has been negative for resistant pathogen. The patient is covered with Unasyn to continue local wound care with Santyl and monitor clinical course closely. MMODL / IJN: [id number] /
[2019-09-02] MEDS: HYDROcodone/APAP 7.5-325MG 1 EACH TAB PO PRN ×4 (03:31→21:58)
[2019-09-02] MEDS: CALCIUM CARBONATE 500 MG CHEWABLE PO PRN ×3 (03:32→19:18)
[2019-09-02 06:46] LABS: Glucose,Whole Blood 146 mg/dL (75-99)
[2019-09-02 06:56] LABS: Basophils % (A) 0 %; Eosinophils # (A) 0.6 k/uL (0-0.7); Eosinophils % (A) 5 %; HCT 30.2 % (34.0-46.0); HGB 9.6 gm/dL (11.4-16.0); Hypochromasia Marked; Lymphocytes # (A) 2.3 k/uL (1.0-4.8); Lymphocytes % (A) 19 %; MCH 24.8 pg (25.0-35.0); MCHC 31.8 g/dL (31.0-37.0); MCV 77.8 fL (80.0-100.0); Mean Platelet Volume 7.2; Microcytosis Slight; Monocytes # (A) 0.6 k/uL (0-1.0); Monocytes % (A) 5 %; Neutrophils # (A) 8.6 k/uL (1.3-7.7); Neutrophils % (A) 69 %; Platelet Count 386 k/uL (150-450); RBC 3.89 m/uL (3.80-5.40); RDW 15.2 % (11.5-15.5); WBC 12.4 k/uL (3.8-10.6)
[2019-09-02 07:12] LABS: African American GFR (CKD) >90 (>60 ml/min/1.73 sqM); Anion Gap 11 mmol/L; Blood Urea Nitrogen 18 mg/dL (7-17); Calcium 8.9 mg/dL (8.4-10.2); Carbon Dioxide 25 mmol/L (22-30); Chloride 97 mmol/L (98-107); Glucose 121 mg/dL (74-99); Non-African American GFR(CKD) 86 (>60 ml/min/1.73 sqM); Sodium 133 mmol/L (137-145)
[2019-09-02] MEDS: INSULIN ASPART (NovoLOG) 100 UNIT/ML VIAL SQ SCH ×4 (08:18→20:48)
[2019-09-02] MEDS: IPRATROPIUM 0.5 MG/2.5 ML NEBU INHALATION SCH ×5 (08:19→20:19)
[2019-09-02] MEDS: SYMBICORT 80-4.5 MCG INHALER INHALATION SCH ×2 (08:19→20:18)
[2019-09-02] MEDS: PANTOPRAZOLE 40 MG/10 ML VIAL IVP SCH (08:20)
[2019-09-02] MEDS: INSULN ASP PRT/INSULIN ASPART 100 UNIT/ML 10 ML VIAL SQ SCH ×2 (08:20→18:01)
[2019-09-02] MEDS: METOPROLOL TARTRATE 50 MG TAB PO SCH ×2 (08:21→20:49)
[2019-09-02] MEDS: metFORMIN 500 MG TAB PO SCH ×2 (08:21→20:49)
[2019-09-02] MEDS: METOCLOPRAMIDE 10 MG TAB PO SCH ×4 (08:21→20:49)
[2019-09-02] MEDS: CLOPIDOGREL 75 MG TAB PO SCH (08:22)
[2019-09-02] MEDS: ISOSORBIDE MONONITRATE ER 60 MG TAB.ER.24H PO SCH (08:22)
[2019-09-02] MEDS: amLODIPine 10 MG TAB PO SCH (08:22)
[2019-09-02] MEDS: DICYCLOMINE 10 MG CAP PO SCH (08:22)
[2019-09-02] MEDS: SUCRALFATE 1 GM TAB PO SCH ×4 (08:22→20:49)
[2019-09-02] MEDS: ASPIRIN 81 MG PO SCH (08:22)
[2019-09-02] MEDS: LISINOPRIL 20 MG TAB PO SCH (08:22)
[2019-09-02] MEDS: FUROSEMIDE 40 MG TAB PO SCH ×2 (08:22→15:12)
[2019-09-02 11:46] LABS: Glucose,Whole Blood 184 mg/dL (75-99)
[2019-09-02] MEDS: COLLAGENASE 250 UNIT/GM OINTMENT 30 GM TUBE TOPICAL SCH (13:02)
[2019-09-02] MEDS: CHOLECALCIFEROL 1,000 UNIT TAB PO SCH (13:02)
--- NOTE | 2019-09-02 15:39 | P.PN ---
Subjective Progress Note Date: 09/01/19 Principal diagnosis: COPD without any exacerbation respiratory status stable Bilateral plantar infection of both feet on antibiotics status post wound deep wound cleaning Congestive heart failure Type 2 diabetes mellitus Hypertension hypertensive cardiovascular disease [place] Prior history of pneumonia Obstructive sleep apnea Recent cellulitis and diabetic foot 09/01/2019, patient seen and evaluated examined during the rounds labs reviewed medications reviewed respiratory status remains stable, patient is getting long- term antibioticsc will be placed in ECF This is a 74-year-old female who was seen evaluated examined, patient to admitted into the hospital with bilateral plantar wound also has a baseline history of COPD and GERD, patient denies any chest pain breathing has been stable, bilateral plantar wound have been debrided by Dr. Bowles polymicrobial bacteria has been noted positive for enterococcus and anaerobes, on specific questioning patient denies any chest pain or shortness of breath currently her COPD has been stable, she is getting broad-spectrum antibiotics for her plantar wound, Objective - Vital Signs Vital signs: Vital Signs Temp 98.6 F Pulse 72 Resp 18 BP 165/73 Pulse Ox 96 on 2 L nasal cannula - Exam - Constitutional General appearance: average body habitus, cooperative, disheveled, no acute distress - EENT Eyes: EOMI, PERRLA ENT: normal oropharynx Ears: bilateral: normal - Neck Carotids: bilateral: upstroke normal Thyroid: bilateral: normal size - Respiratory Respiratory: bilateral: CTA - Cardiovascular Rhythm: regular Heart sounds: normal: S1, S2 - Gastrointestinal General gastrointestinal: soft - Integumentary Integumentary: normal turgor - Neurologic Neurologic: CNII-XII intact - Musculoskeletal Musculoskeletal: gait normal, generalized weakness, strength equal bilaterally - Psychiatric Psychiatric: A&O x's 3, appropriate affect, intact judgment & insight - Labs CBC & Chem 7: 09/02/19 06:12 09/02/19 06:12 Labs: Abnormal Lab Results - Last 24 Hours (Table) 09/01/19 09/01/19 09/02/19 Range/Units 16:32 20:42 06:12 WBC 12.4 H (3.8-10.6) k/uL Hgb 9.6 L (11.4-16.0) gm/dL Hct 30.2 L (34.0-46.0) % MCV 77.8 L (80.0-100.0) fL MCH 24.8 L (25.0-35.0) pg Neutrophils # 8.6 H (1.3-7.7) k/uL Sodium (137-145) mmol/L Chloride (98-107) mmol/L BUN (7-17) mg/dL Glucose (74-99) mg/dL POC Glucose (mg/dL) 114 H 131 H (75-99) mg/dL 09/02/19 09/02/19 09/02/19 Range/Units 06:12 06:45 11:45 WBC (3.8-10.6) k/uL Hgb (11.4-16.0) gm/dL Hct (34.0-46.0) % MCV (80.0-100.0) fL MCH (25.0-35.0) pg Neutrophils # (1.3-7.7) k/uL Sodium 133 L (137-145) mmol/L Chloride 97 L (98-107) mmol/L BUN 18 H (7-17) mg/dL Glucose 121 H (74-99) mg/dL POC Glucose (mg/dL) 146 H 184 H (75-99) mg/dL Microbiology - Last 24 Hours (Table) 08/30/19 16:40 Gram Stain - Final Toe - Left First Wound Culture - Final 08/30/19 16:40 Anaerobic Culture - Preliminary Toe - Left First Assessment and Plan Assessment: COPD without any exacerbation respiratory status stable Bilateral plantar infection of both feet on antibiotics status post wound deep wound cleaning Congestive heart failure Type 2 diabetes mellitus Hypertension hypertensive cardiovascular disease [place] Prior history of pneumonia Obstructive sleep apnea Recent cellulitis and diabetic foot Plan: From pulmonary standpoint monitor and observe patient closely can do nebulizer as needed Continue broad-spectrum antibiotics bilateral plantar wounds Increase activity as tolerated Follow clinical course closely Time with Patient: Greater than 30
--- NOTE | 2019-09-02 15:41 | P.PN ---
Subjective Progress Note Date: 09/02/19 Principal diagnosis: COPD without any exacerbation respiratory status stable Bilateral plantar infection of both feet on antibiotics status post wound deep wound cleaning Congestive heart failure Type 2 diabetes mellitus Hypertension hypertensive cardiovascular disease [place] Prior history of pneumonia Obstructive sleep apnea Recent cellulitis and diabetic foot 09/02/2019 patient seen and evaluated examined doing well denies any chest pain respiratory status remained stable and denies any cough or sputum production Ammann patient is being considered for long-term antibiotic and placement ECF 09/01/2019, patient seen and evaluated examined during the rounds labs reviewed medications reviewed respiratory status remains stable, patient is getting long- term antibioticsc will be placed in ECF This is a 74-year-old female who was seen evaluated examined, patient to a dmitted into the hospital with bilateral plantar wound also has a baseline history of COPD and GERD, patient denies any chest pain breathing has been stable, bilateral plantar wound have been debrided by Dr. Bowles polymicrobial bacteria has been noted positive for enterococcus and anaerobes, on specific questioning patient denies any chest pain or shortness of breath currently her COPD has been stable, she is getting broad-spectrum antibiotics for her plantar wound, Objective - Vital Signs Vital signs: Vital Signs Temp 98.4 F 09/02/19 15:00 Pulse 76 09/02/19 15:38 Resp 18 09/02/19 15:00 BP 148/63 09/02/19 15:00 Pulse Ox 96 09/02/19 15:00 Intake & Output 09/01/19 09/02/19 09/02/19 18:59 06:59 18:59 Intake Total 856 300 Balance 856 300 Intake: Intake, IV Titration 100 Amount Ampicillin-Sulbactam 3 gm 100 In Sodium Chloride 0.9% 100 ml @ 200 mls/hr IVPB Q6HR [facility] Rx#:[id number] Oral 756 300 Other: Voiding Method Toilet Toilet # Voids 1 - Exam - Constitutional General appearance: average body habitus, cooperative, disheveled, no acute distress - EENT Eyes: EOMI, PERRLA ENT: normal oropharynx Ears: bilateral: normal - Neck Carotids: bilateral: upstroke normal Thyroid: bilateral: normal size - Respiratory Respiratory: bilateral: CTA - Cardiovascular Rhythm: regular Heart sounds: normal: S1, S2 - Gastrointestinal General gastrointestinal: soft - Integumentary Integumentary: normal turgor - Neurologic Neurologic: CNII-XII intact - Musculoskeletal Musculoskeletal: gait normal, generalized weakness, strength equal bilaterally - Psychiatric Psychiatric: A&O x's 3, appropriate affect, intact judgment & insight - Labs CBC & Chem 7: 09/02/19 06:12 09/02/19 06:12 Labs: Abnormal Lab Results - Last 24 Hours (Table) 09/01/19 09/01/19 09/02/19 Range/Units 16:32 20:42 06:12 WBC 12.4 H (3.8-10.6) k/uL Hgb 9.6 L (11.4-16.0) gm/dL Hct 30.2 L (34.0-46.0) % MCV 77.8 L (80.0-100.0) fL MCH 24.8 L (25.0-35.0) pg Neutrophils # 8.6 H (1.3-7.7) k/uL Sodium (137-145) mmol/L Chloride (98-107) mmol/L BUN (7-17) mg/dL Glucose (74-99) mg/dL POC Glucose (mg/dL) 114 H 131 H (75-99) mg/dL 09/02/19 09/02/19 09/02/19 Range/Units 06:12 06:45 11:45 WBC (3.8-10.6) k/uL Hgb (11.4-16.0) gm/dL Hct (34.0-46.0) % MCV (80.0-100.0) fL MCH (25.0-35.0) pg Neutrophils # (1.3-7.7) k/uL Sodium 133 L (137-145) mmol/L Chloride 97 L (98-107) mmol/L BUN 18 H (7-17) mg/dL Glucose 121 H (74-99) mg/dL POC Glucose (mg/dL) 146 H 184 H (75-99) mg/dL Microbiology - Last 24 Hours (Table) 08/30/19 16:40 Gram Stain - Final Toe - Left First Wound Culture - Final 08/30/19 16:40 Anaerobic Culture - Preliminary Toe - Left First Assessment and Plan Assessment: COPD without any exacerbation respiratory status stable Bilateral plantar infection of both feet on antibiotics status post wound deep wound cleaning Congestive heart failure Type 2 diabetes mellitus Hypertension hypertensive cardiovascular disease [place] Prior history of pneumonia Obstructive sleep apnea Recent cellulitis and diabetic foot Plan: From pulmonary standpoint monitor and observe patient closely can do nebulizer as needed Continue broad-spectrum antibiotics bilateral plantar wounds Increase activity as tolerated Follow clinical course closely agree with discharge planning Time with Patient: Greater than 30
[2019-09-02 16:49] LABS: Glucose,Whole Blood 110 mg/dL (75-99)
[2019-09-02 20:28] LABS: Glucose,Whole Blood 150 mg/dL (75-99)
[2019-09-02] MEDS: ATORVASTATIN 10 MG TAB PO SCH (20:49)
[2019-09-02] MEDS: MONTELUKAST 10 MG TAB PO SCH (20:49)
[2019-09-02] MEDS: MELATONIN 5 MG TABLET PO SCH (20:49)
--- NOTE | 2019-09-02 23:47 | PN ---
PROGRESS NOTE DATE OF SERVICE: 09/02/2019 REASON FOR FOLLOWUP: Bilateral diabetic foot wound and cellulitis. INTERVAL HISTORY: The patient is currently afebrile. She is breathing comfortably. Denies having any chest pain or any cough. No nausea, vomiting. No abdominal pain. Pain to the bilateral foot wound is currently controlled. PHYSICAL EXAMINATION: Blood pressure 135/73 with a pulse of 92, temperature 98.8. She is 95% on room air. General description: The patient is an elderly female up in the chair in no distress. Respiratory system: Unlabored breathing. Clear to auscultation anteriorly. Heart S1, S2. Regular rate and rhythm. ABDOMEN: Soft, no tenderness. Bilateral foot wounds are currently dressed up. No obvious drainage on the dressing. LABS: Hemoglobin 9.6, white count 13.4, BUN of 18, creatinine 0.71. DIAGNOSTIC IMPRESSION AND PLAN: Patient with bilateral diabetic foot ulcers and secondary cellulitis. Previous culture positive for Enterococcus faecalis and anaerobes. The patient is covered with Unasyn. She will get a mid line on Wednesday to continue with IV antibiotic for another 10 days to 2 weeks. Local care to continue with Santyl along with offloading shoes. Continue supportive care. MMODL / IJN: [id number] /
--- NOTE | 2019-09-03 00:18 | PN ---
PROGRESS NOTE 74-year-old white female. Remains on IV Zosyn and Santyl, Bentyl for cellulitis versus osteomyelitis of the lower bilateral feet, 1st digit tarsal head. Cardiovascular S1-S2. Lungs transmitted upper airway sounds. Hematology negative Homans. Psych: Fair mood and affect. PLANS: Continue current treatment. Follow up in the next 24 to 48 hours. Continue current treatments with a PICC line. Follow up in the next 24-48 hours. MMODL / IJN: [id number] /
[2019-09-03] MEDS: AMPICILLIN-SULBACTAM 3 GM in SODIUM CHLORIDE 0.9% 100 ML IVPB SCH ×5 (00:23→23:29)
[2019-09-03] MEDS: HYDROcodone/APAP 7.5-325MG 1 EACH TAB PO PRN ×4 (04:10→22:04)
[2019-09-03 06:53] LABS: Glucose,Whole Blood 123 mg/dL (75-99)
[2019-09-03] MEDS: CALCIUM CARBONATE 500 MG CHEWABLE PO PRN ×2 (07:04→15:08)
[2019-09-03 07:08] LABS: Basophils % (A) 0 %; Eosinophils # (A) 0.5 k/uL (0-0.7); Eosinophils % (A) 5 %; HCT 30.8 % (34.0-46.0); HGB 9.5 gm/dL (11.4-16.0); Hypochromasia Slight; Lymphocytes # (A) 2.6 k/uL (1.0-4.8); Lymphocytes % (A) 24 %; MCH 24.1 pg (25.0-35.0); MCHC 30.9 g/dL (31.0-37.0); MCV 77.7 fL (80.0-100.0); Mean Platelet Volume 7.4; Microcytosis Slight; Monocytes # (A) 0.6 k/uL (0-1.0); Monocytes % (A) 6 %; Neutrophils # (A) 6.8 k/uL (1.3-7.7); Neutrophils % (A) 62 %; Platelet Count 381 k/uL (150-450); RBC 3.97 m/uL (3.80-5.40); RDW 15.7 % (11.5-15.5)
[2019-09-03] MEDS: PANTOPRAZOLE 40 MG/10 ML VIAL IVP SCH (07:19)
[2019-09-03] MEDS: amLODIPine 10 MG TAB PO SCH (07:20)
[2019-09-03] MEDS: LISINOPRIL 20 MG TAB PO SCH (07:20)
[2019-09-03] MEDS: METOPROLOL TARTRATE 50 MG TAB PO SCH ×2 (07:21→21:13)
[2019-09-03] MEDS: ISOSORBIDE MONONITRATE ER 60 MG TAB.ER.24H PO SCH (07:21)
[2019-09-03] MEDS: ASPIRIN 81 MG PO SCH (07:21)
[2019-09-03] MEDS: metFORMIN 500 MG TAB PO SCH ×2 (07:21→21:13)
[2019-09-03] MEDS: METOCLOPRAMIDE 10 MG TAB PO SCH ×4 (07:22→21:13)
[2019-09-03] MEDS: CHOLECALCIFEROL 1,000 UNIT TAB PO SCH (07:22)
[2019-09-03] MEDS: SUCRALFATE 1 GM TAB PO SCH ×4 (07:22→21:13)
[2019-09-03] MEDS: FUROSEMIDE 40 MG TAB PO SCH ×2 (07:22→16:35)
[2019-09-03] MEDS: DICYCLOMINE 10 MG CAP PO SCH (07:22)
[2019-09-03] MEDS: CLOPIDOGREL 75 MG TAB PO SCH (07:22)
[2019-09-03] MEDS: COLLAGENASE 250 UNIT/GM OINTMENT 30 GM TUBE TOPICAL SCH (07:24)
[2019-09-03 07:31] LABS: Albumin 3.2 g/dL (3.5-5.0); Calcium 8.8 mg/dL (8.4-10.2); Total Bilirubin 0.3 mg/dL (0.2-1.3); Total Protein 6.5 g/dL (6.3-8.2)
[2019-09-03] MEDS: IPRATROPIUM 0.5 MG/2.5 ML NEBU INHALATION SCH ×4 (07:57→19:06)
[2019-09-03] MEDS: SYMBICORT 80-4.5 MCG INHALER INHALATION SCH ×2 (07:57→19:09)
[2019-09-03] MEDS: INSULIN ASPART (NovoLOG) 100 UNIT/ML VIAL SQ SCH ×4 (07:58→21:13)
[2019-09-03] MEDS: INSULN ASP PRT/INSULIN ASPART 100 UNIT/ML 10 ML VIAL SQ SCH ×2 (07:59→17:16)
[2019-09-03 11:55] LABS: Glucose,Whole Blood 87 mg/dL (75-99)
--- NOTE | 2019-09-03 13:09 | P.PN ---
Subjective Progress Note Date: 09/03/19 Principal diagnosis: COPD without any exacerbation respiratory status stable Bilateral plantar infection of both feet on antibiotics status post wound deep wound cleaning Congestive heart failure Type 2 diabetes mellitus Hypertension hypertensive cardiovascular disease [place] Prior history of pneumonia Obstructive sleep apnea Recent cellulitis and diabetic foot 09/03/2019 the patient sitting upright in the chair breathing comfortably remains on room air, 92% oxygen saturation, remains afebrile, blood pressure is 154/60 to denies any chest pain cough congestion shortness of breath patient is scheduled for PICC line tomorrow 09/02/2019 patient seen and evaluated examined doing well denies any chest pain respiratory status remained stable and denies any cough or sputum production Ammann patient is being considered for long-term antibiotic and placement ECF 09/01/2019, patient seen and evaluated examined during the rounds labs reviewed medications reviewed respiratory status remains stable, patient is getting long- term antibioticsc will be placed in ECF This is a 74-year-old female who was seen evaluated examined, patient to admitted into the hospital with bilateral plantar wound also has a baseline history of COPD and GERD, patient denies any chest pain breathing has been stable, bilateral plantar wound have been debrided by Dr. Bowles polymicrobial bacteria has been noted positive for enterococcus and anaerobes, on specific questioning patient denies any chest pain or shortness of breath currently her COPD has been stable, she is getting broad-spectrum antibiotics for her plantar wound, Objective - Vital Signs Vital signs: Vital Signs Temp 98.0 F 09/03/19 07:00 Pulse 76 09/03/19 11:38 Resp 18 09/03/19 07:00 BP 154/62 09/03/19 07:00 Pulse Ox 92 L 09/03/19 07:00 Intake & Output 09/02/19 09/03/19 09/03/19 18:59 06:59 18:59 Other: Voiding Method Toilet - Exam - Constitutional General appearance: average body habitus, cooperative, disheveled, no acute distress - EENT Eyes: EOMI, PERRLA ENT: normal oropharynx Ears: bilateral: normal - Neck Carotids: bilateral: upstroke normal Thyroid: bilateral: normal size - Respiratory Respiratory: bilateral: CTA - Cardiovascular Rhythm: regular Heart sounds: normal: S1, S2 - Gastrointestinal General gastrointestinal: soft - Integumentary Integumentary: normal turgor - Neurologic Neurologic: CNII-XII intact - Musculoskeletal Musculoskeletal: gait normal, generalized weakness, strength equal bilaterally - Psychiatric Psychiatric: A&O x's 3, appropriate affect, intact judgment & insight - Labs CBC & Chem 7: 09/03/19 05:46 09/03/19 05:46 Labs: Abnormal Lab Results - Last 24 Hours (Table) 09/02/19 09/02/19 09/03/19 Range/Units 16:48 20:26 05:46 WBC 11.0 H (3.8-10.6) k/uL Hgb 9.5 L (11.4-16.0) gm/dL Hct 30.8 L (34.0-46.0) % MCV 77.7 L (80.0-100.0) fL MCH 24.1 L (25.0-35.0) pg MCHC 30.9 L (31.0-37.0) g/dL RDW 15.7 H (11.5-15.5) % Sodium (137-145) mmol/L Chloride (98-107) mmol/L BUN (7-17) mg/dL Glucose (74-99) mg/dL POC Glucose (mg/dL) 110 H 150 H (75-99) mg/dL Albumin (3.5-5.0) g/dL 09/03/19 09/03/19 Range/Units 05:46 06:52 WBC (3.8-10.6) k/uL Hgb (11.4-16.0) gm/dL Hct (34.0-46.0) % MCV (80.0-100.0) fL MCH (25.0-35.0) pg MCHC (31.0-37.0) g/dL RDW (11.5-15.5) % Sodium 132 L (137-145) mmol/L Chloride 95 L (98-107) mmol/L BUN 18 H (7-17) mg/dL Glucose 115 H (74-99) mg/dL POC Glucose (mg/dL) 123 H (75-99) mg/dL Albumin 3.2 L (3.5-5.0) g/dL Assessment and Plan Assessment: COPD without any exacerbation respiratory status stable Bilateral plantar infection of both feet on antibiotics status post wound deep wound cleaning Congestive heart failure Type 2 diabetes mellitus Hypertension hypertensive cardiovascular disease [place] Prior history of pneumonia Obstructive sleep apnea Recent cellulitis and diabetic foot Plan: From pulmonary standpoint monitor and observe patient closely can do nebulizer as needed Continue broad-spectrum antibiotics bilateral plantar wounds Increase activity as tolerated Follow clinical course closely agree with discharge planning Time with Patient: Greater than 30
[2019-09-03 16:52] LABS: Glucose,Whole Blood 161 mg/dL (75-99)
[2019-09-03 21:04] LABS: Glucose,Whole Blood 133 mg/dL (75-99)
[2019-09-03] MEDS: MELATONIN 5 MG TABLET PO SCH (21:12)
[2019-09-03] MEDS: ATORVASTATIN 10 MG TAB PO SCH (21:13)
[2019-09-03] MEDS: MONTELUKAST 10 MG TAB PO SCH (22:04)
--- NOTE | 2019-09-04 00:05 | PN ---
PROGRESS NOTE SUBJECTIVE: A 74-year-old white female who was admitted for cellulitis, chronic wound infections. CARDIOVASCULAR: S1, S2. LUNGS: Transmitted upper airway sounds. GI: Soft. HEMATOLOGY: Negative Homans. PSYCH: Fair mood, affect. INTEGUMENT: Bilateral feet dorsum of the great toe is open wounds. Continue with IV antibiotics through a PICC line and go to the rehab center over the next 24 to 48 hours. MMODL / IJN: [id number] /
--- NOTE | 2019-09-04 02:49 | PN ---
PROGRESS NOTE DATE OF SERVICE: 09/03/2019 REASON FOR FOLLOWUP: Bilateral diabetic foot ulcer and cellulitis. INTERVAL HISTORY: The patient is currently afebrile. She is breathing comfortably. Denies having any chest pain or cough. No nausea, vomiting, or abdominal pain. Pain to the bilateral foot wound area. PHYSICAL EXAMINATION: Blood pressure 146/62 with a pulse of 91, temperature 99.1. She is 94% on room air. General description is an elderly female up in the chair in no distress. RESPIRATORY SYSTEM: Unlabored breathing, clear to auscultation anteriorly. HEART: S1, S2. Regular rate and rhythm. ABDOMEN: Soft, no tenderness. Bilateral foot wounds are currently dressed up. No obvious drainage on the dressing. LABS: Hemoglobin 9.5, white count 11. Wound culture anaerobic gram-positive cocci. DIAGNOSTIC IMPRESSION AND PLAN: Patient with bilateral diabetic foot plantar ulcer with secondary cellulitis. The patient wound culture with anaerobic gram-positive. The patient is covered with Unasyn. She will get a Midline tomorrow to continue with IV Unasyn 3 grams q.6 hours for 2 weeks. Local care with Santyl and moist dressing keep the area off the pressure. MMODL / IJN: [id number] /
[2019-09-04 05:24] VITALS: RESP 18
[2019-09-04] MEDS: AMPICILLIN-SULBACTAM 3 GM in SODIUM CHLORIDE 0.9% 100 ML IVPB SCH ×2 (06:01→15:35)
[2019-09-04 07:07] LABS: Glucose,Whole Blood 123 mg/dL (75-99)
[2019-09-04] MEDS: INSULIN ASPART (NovoLOG) 100 UNIT/ML VIAL SQ SCH ×3 (07:29→18:18)
[2019-09-04] MEDS: IPRATROPIUM 0.5 MG/2.5 ML NEBU INHALATION SCH ×3 (07:42→15:52)
[2019-09-04] MEDS: SYMBICORT 80-4.5 MCG INHALER INHALATION SCH (07:42)
[2019-09-04] MEDS: ISOSORBIDE MONONITRATE ER 60 MG TAB.ER.24H PO SCH (07:43)
[2019-09-04] MEDS: HYDROcodone/APAP 7.5-325MG 1 EACH TAB PO PRN ×2 (07:43→15:35)
[2019-09-04] MEDS: CLOPIDOGREL 75 MG TAB PO SCH (07:43)
[2019-09-04] MEDS: metFORMIN 500 MG TAB PO SCH (07:43)
[2019-09-04] MEDS: FUROSEMIDE 40 MG TAB PO SCH ×2 (07:43→15:35)
[2019-09-04] MEDS: CHOLECALCIFEROL 1,000 UNIT TAB PO SCH (07:44)
[2019-09-04] MEDS: LISINOPRIL 20 MG TAB PO SCH (07:44)
[2019-09-04] MEDS: ASPIRIN 81 MG PO SCH (07:44)
[2019-09-04] MEDS: METOPROLOL TARTRATE 50 MG TAB PO SCH (07:44)
[2019-09-04] MEDS: DICYCLOMINE 10 MG CAP PO SCH (07:45)
[2019-09-04] MEDS: INSULN ASP PRT/INSULIN ASPART 100 UNIT/ML 10 ML VIAL SQ SCH ×2 (07:45→18:18)
[2019-09-04] MEDS: SUCRALFATE 1 GM TAB PO SCH ×3 (07:54→18:41)
[2019-09-04] MEDS: METOCLOPRAMIDE 10 MG TAB PO SCH ×3 (07:54→18:18)
[2019-09-04] MEDS: amLODIPine 10 MG TAB PO SCH (07:54)
[2019-09-04] MEDS: COLLAGENASE 250 UNIT/GM OINTMENT 30 GM TUBE TOPICAL SCH (07:54)
[2019-09-04] MEDS: PANTOPRAZOLE 40 MG/10 ML VIAL IVP SCH (08:08)
[2019-09-04 11:26] LABS: Glucose,Whole Blood 98 mg/dL (75-99)
--- NOTE | 2019-09-04 14:25 | P.DS ---
Providers Date of admission: 08/30/19 11:41 Expected date of discharge: 09/04/19 Attending physician: Medardo Grande Consults: 08/30/19 12:55 Consult Physician Routine Consulting Provider: Joanne Perez Consult Reason/Comments: bilateral LE wounds/cellulitis Do you want consulting provider notified?: Yes Placement Type Exists?: Yes 08/30/19 14:45 Consult Physician Routine Consulting Provider: Phi Bowles Consult Reason/Comments: wound debridement Do you want consulting provider notified?: Yes 08/31/19 07:05 Consult Physician Routine Consulting Provider: Helder Browne Consult Reason/Comments: copd Do you want consulting provider notified?: Yes [facility] Course: Final Diagnoses: Chronic Plantar wounds of bilateral feet status post I&D. Refer to nursing documentation. Cultures reporting Anaerobic Gram Positive Cocci. Recently hospitalized with bilateral diabetic foot wounds with secondary cellulitis COPD, stable CHF Diabetes mellitus type II hypertension CAD, history of [place] Obstructive sleep apnea Morbid obesity, BMI 39.8 Chronic kidney disease stage III Degenerative joint disease with gait dysfunction, history of falls Chronic hypoxic respiratory failure, wears 2 L nasal cannula at home History of nicotine dependence Hospital course:This is a 74-year-old female admitted with plantar infection of bilateral feet and multiple other medical issues. Status post debridement, tolerated well. Pain controlled. Maintained on Unasyn. Blood sugars controlled. Denies any chest pain, palpitations or shortness of breath. Maintained on wound care/and IV antibiotics as per infectious disease. Significant clinical improvement. Patient will be discharged to subacute rehab in a stable condition with guarded prognosis pending midline placement, discharge IV antibiotics of Unasyn as per ID. Microbiology 08/30/19 16:40 Toe - Left First Anaerobic Culture - Final Anaerobic Gram Positive Cocci 08/30/19 16:40 Toe - Left First Gram Stain - Final 08/30/19 16:40 Toe - Left First Wound Culture - Final The impression and plan of care has been dictated as directed. : I performed a history and examination of this patient, discussed the same with the dictator. I agree with the dictator's note ,documented as a scribe. Any additional findings or plans will be noted. Patient Condition at Discharge: Stable Plan - Discharge Summary Discharge Rx Participant: Yes New Discharge Prescriptions: No Action Cholecalciferol [Vitamin D3 (25 Mcg = 1000 Iu)] 1,000 unit PO DAILY Clopidogrel [Plavix] 75 mg PO DAILY Montelukast Sodium [Singulair] 10 mg PO HS #30 tab Nitroglycerin Sl Tabs [Nitrostat] 0.4 mg SUBLINGUAL Q5M PRN #0 tab PRN Reason: Chest Pain Metoprolol Tartrate [Lopressor] 50 mg PO BID Melatonin 5 mg PO HS [place]-3 Fatty Acids [[place]-3] 2,000 mg PO DAILY Isosorbide Mononitrate ER [Imdur] 60 mg PO DAILY #30 tab.er.24h Dicyclomine [Bentyl] 10 mg PO DAILY Aspirin 81 mg PO DAILY chew Acetaminophen Tab [Tylenol] 500 mg PO Q6HR PRN tab PRN Reason: Fever And/ Or Pain HYDROcodone/APAP 7.5-325MG [[place] 7.5-325] 1 tab PO Q6H PRN PRN Reason: Pain Omeprazole 20 mg PO HS Fluticasone/Umeclidin/Vilanter [Trelegy Ellipta 100-62.5-25] 1 puff INHALATION RT-DAILY rOPINIRole HCL [Requip] 1 mg PO TID tab Sucralfate [Carafate] 1 gm PO QID Insulin Aspart Protam & Aspart [NovoLOG MIX 70-30 Flexpen] 30 unit SQ BID Dulaglutide [Trulicity] 1.5 mg SQ WE Metoclopramide [Reglan] 10 mg PO QID metFORMIN HCL 1,000 mg PO BID Furosemide [Lasix] 40 mg PO BID Simvastatin [Zocor] 20 mg PO HS Lisinopril 40 mg PO DAILY Ciprofloxacin HCl [Cipro] 500 mg PO Q12H amLODIPine [Norvasc] 10 mg PO DAILY Discharge Medication List Cholecalciferol [Vitamin D3 (25 Mcg = 1000 Iu)] 1,000 unit PO DAILY 02/26/15 [History] Clopidogrel [Plavix] 75 mg PO DAILY 09/05/15 [History] Montelukast Sodium [Singulair] 10 mg PO HS #30 tab 10/25/15 [Rx] Nitroglycerin Sl Tabs [Nitrostat] 0.4 mg SUBLINGUAL Q5M PRN #0 tab 09/24/16 [Rx] Melatonin 5 mg PO HS 02/09/18 [History] Metoprolol Tartrate [Lopressor] 50 mg PO BID 02/09/18 [History] [place]-3 Fatty Acids [[place]-3] 2,000 mg PO DAILY 09/29/18 [History] Isosorbide Mononitrate ER [Imdur] 60 mg PO DAILY #30 tab.er.24h 11/17/18 [Rx] Dicyclomine [Bentyl] 10 mg PO DAILY 04/16/19 [History] Aspirin 81 mg PO DAILY chew 04/17/19 [Rx] Acetaminophen Tab [Tylenol] 500 mg PO Q6HR PRN tab 06/23/19 [Rx] Fluticasone/Umeclidin/Vilanter [Trelegy Ellipta 100-62.5-25] 1 puff INHALATION RT-DAILY 07/07/19 [History] HYDROcodone/APAP 7.5-325MG [[place] 7.5-325] 1 tab PO Q6H PRN 07/07/19 [History] Omeprazole 20 mg PO HS 07/07/19 [History] rOPINIRole HCL [Requip] 1 mg PO TID tab 07/09/19 [Rx] Dulaglutide [Trulicity] 1.5 mg SQ WE 08/15/19 [History] Furosemide [Lasix] 40 mg PO BID 08/15/19 [History] Insulin Aspart Protam & Aspart [NovoLOG MIX 70-30 Flexpen] 30 unit SQ BID 08/15/19 [History] Metoclopramide [Reglan] 10 mg PO QID 08/15/19 [History] Sucralfate [Carafate] 1 gm PO QID 08/15/19 [History] metFORMIN HCL 1,000 mg PO BID 08/15/19 [History] Ciprofloxacin HCl [Cipro] 500 mg PO Q12H 08/30/19 [History] Lisinopril 40 mg PO DAILY 08/30/19 [History] Simvastatin [Zocor] 20 mg PO HS 08/30/19 [History] amLODIPine [Norvasc] 10 mg PO DAILY 08/30/19 [History] Follow up Appointment(s)/Referral(s): Wound Healing,Center [NON-STAFF] - 1 Week (Wednesday with Dr Bowles) Activity/Diet/Wound Care/Special Instructions: Carrie alejandre,lotus in 3 days [facility] [phone] Discharge Disposition: TRANSFER TO SNF/ECF
[2019-09-04 15:44] VITALS: BP 129/54; PULSE 78; TEMP 98.2
[2019-09-04 16:26] LABS: Glucose,Whole Blood 133 mg/dL (75-99)
--- NOTE | 2019-09-04 19:26 | CDI ---
Documentation Clarification Form Date: 09/04/2019 07:17:07 PM From: Eulalia Greer RN, CCDS Admit Date: 08/30/2019 11:41:00 AM Patient Name: Lorelei Brand Visit Number: [id number] ATTENTION: The Clinical Documentation Specialists (CDI) and [facility] Coding Staff appreciate your assistance in clarifying documentation. Please respond to the clarification below the line at the bottom and electronically sign. The CDI & [facility] Coding staff will review the response and follow-up if needed. Please note: Queries are made part of the Legal Health Record. If you have any questions, please contact the author of this message via ITS. Dr. Medardo Grande CHF is documented in the H&P, progress notes, and D/C Summary and requires further specificity. History/Risk Factors: CHF, ISAC, HTN, AK, DM2, CKD stage 3 Clinical Indicators: 08/29 1303 VS/Pulse OX: Temp 98.3, HR 80, RR 18, B/P 101/60, Spo2 93% ra BNP: not checked 06/16/2019 Echocardiogram Results: EF 55-60%, moderate concentric lvh Treatment: Norvasc 10 mg PO QD Lasix 40 mg PO QD Imdur 60 mg PO QD Zestril 40 mg PO QD Lopressor 50 mg PO BID In your professional opinion, can you please clarify the acuity and type of CHF if known? Diastolic Heart Failure: Acute Chronic Acute on Chronic Systolic & Diastolic Heart Failure: Acute Chronic Acute on Chronic Heart Failure Unable to Determine Other, please specify (Last Revision: August 2017) MTDD
--- NOTE | 2019-09-04 19:34 | CDI ---
Documentation Clarification Form Date: 09/04/2019 07:27:49 PM From: Eulalia Greer RN, CCDS Admit Date: 08/30/2019 11:41:00 AM Patient Name: Lorelei Brand Visit Number: [id number] ATTENTION: The Clinical Documentation Specialists (CDI) and [facility] Coding Staff appreciate your assistance in clarifying documentation. Please respond to the clarification below the line at the bottom and electronically sign. The CDI & [facility] Coding staff will review the response and follow-up if needed. Please note: Queries are made part of the Legal Health Record. If you have any questions, please contact the author of this message via ITS. Dr. Phi Bowles Per your progress notes/operative note, a debridement was performed on 08/30/2019 History/Risk Factors: "This is a 74-year-old female patient who has a diagnosis of bilateral chronic wounds, right and left foot, plantar aspect base of the big toe. Right foot wound measures 2 x 2 cm and left measures 2 x 0.5 cm with some callus formation and some devitalized tissue. Patient has a history of neuropathy." Clinical Indicators & Treatment: 08/29 Procedure note: "Using sharp scissors, we did selective debridement. Some devitalized tissue was removed, which was sent for deep culture. Then the left foot was prepped and drapes were applied in a sterile manner. Using sharp scissors, we did selective debridement. Devitalized tissue was removed. Some callus was also removed" Five elements required for accurate and compliant documentation of a debridement: 1. Technique used (e.g., excisional, excised, cutting, etc.) 2. Instrument(s) used (e.g., scalpel, curette, etc.) 3. Nature of the tissue removed (e.g., necrotic, devitalized tissues, non- viable tissue, etc.) 4. Appearance and size of the wound (e.g., down to fresh bleeding tissue, 7cm x 10cm, etc.) 5. Depth of the debridement* (e.g., skin, subcutaneous tissue, fascia, muscle, bone, etc.) In order to capture the severity of condition and code the appropriate procedure; could you please document the following: Excisional debridement (the removal of necrotic, devitalized tissue or slough by means of cutting away of tissue) Non-excisional debridement (the removal of necrotic, devitalized tissue or slough by means of flushing, brushing, or washing. (Irrigation) Other; please specify Unable to determine (Last Revision: August 2017) MTDD
--- NOTE | 2019-09-11 13:38 | CDI ---
Documentation Clarification Form 2nd Request Date: 09/04/2019 07:27:49 PM From: Eulalia Greer RN, CCDS Admit Date: 08/30/2019 11:41:00 AM Patient Name: Lorelei Brand Visit Number: [id number] ATTENTION: The Clinical Documentation Specialists (CDI) and [facility] Coding Staff appreciate your assistance in clarifying documentation. Please respond to the clarification below the line at the bottom and electronically sign. The CDI & [facility] Coding staff will review the response and follow-up if needed. Please note: Queries are made part of the Legal Health Record. If you have any questions, please contact the author of this message via ITS. Dr. Phi Bowles Per your progress notes/operative note, a debridement was performed on 08/30/2019 History/Risk Factors: "This is a 74-year-old female patient who has a diagnosis of bilateral chronic wounds, right and left foot, plantar aspect base of the big toe. Right foot wound measures 2 x 2 cm and left measures 2 x 0.5 cm with some callus formation and some devitalized tissue. Patient has a history of neuropathy." Clinical Indicators & Treatment: 08/29 Procedure note: "Using sharp scissors, we did selective debridement. Some devitalized tissue was removed, which was sent for deep culture. Then the left foot was prepped and drapes were applied in a sterile manner. Using sharp scissors, we did selective debridement. Devitalized tissue was removed. Some callus was also removed" Five elements required for accurate and compliant documentation of a debridement: 1. Technique used (e.g., excisional, excised, cutting, etc.) 2. Instrument(s) used (e.g., scalpel, curette, etc.) 3. Nature of the tissue removed (e.g., necrotic, devitalized tissues, non- viable tissue, etc.) 4. Appearance and size of the wound (e.g., down to fresh bleeding tissue, 7cm x 10cm, etc.) 5. Depth of the debridement* (e.g., skin, subcutaneous tissue, fascia, muscle, bone, etc.) In order to capture the severity of condition and code the appropriate procedure; could you please document the following: Excisional debridement (the removal of necrotic, devitalized tissue or slough by means of cutting away of tissue) Non-excisional debridement (the removal of necrotic, devitalized tissue or slough by means of flushing, brushing, or washing. (Irrigation) Other; please specify Unable to determine (Last Revision: August 2017) MTDD
--- NOTE | 2019-09-18 10:59 | CDI ---
Documentation Clarification Form 3rd request Date: 09/04/2019 07:27:49 PM From: Eulalia Greer RN, CCDS Admit Date: 08/30/2019 11:41:00 AM Patient Name: Lorelei Brand Visit Number: [id number] ATTENTION: The Clinical Documentation Specialists (CDI) and [facility] Coding Staff appreciate your assistance in clarifying documentation. Please respond to the clarification below the line at the bottom and electronically sign. The CDI & [facility] Coding staff will review the response and follow-up if needed. Please note: Queries are made part of the Legal Health Record. If you have any questions, please contact the author of this message via ITS. Dr. Phi Bowles Per your progress notes/operative note, a debridement was performed on 08/30/2019 History/Risk Factors: "This is a 74-year-old female patient who has a diagnosis of bilateral chronic wounds, right and left foot, plantar aspect base of the big toe. Right foot wound measures 2 x 2 cm and left measures 2 x 0.5 cm with some callus formation and some devitalized tissue. Patient has a history of neuropathy." Clinical Indicators & Treatment: 08/29 Procedure note: "Using sharp scissors, we did selective debridement. Some devitalized tissue was removed, which was sent for deep culture. Then the left foot was prepped and drapes were applied in a sterile manner. Using sharp scissors, we did selective debridement. Devitalized tissue was removed. Some callus was also removed" Five elements required for accurate and compliant documentation of a debridement: 1. Technique used (e.g., excisional, excised, cutting, etc.) 2. Instrument(s) used (e.g., scalpel, curette, etc.) 3. Nature of the tissue removed (e.g., necrotic, devitalized tissues, non- viable tissue, etc.) 4. Appearance and size of the wound (e.g., down to fresh bleeding tissue, 7cm x 10cm, etc.) 5. Depth of the debridement* (e.g., skin, subcutaneous tissue, fascia, muscle, bone, etc.) In order to capture the severity of condition and code the appropriate procedure; could you please document the following: Excisional debridement (the removal of necrotic, devitalized tissue or slough by means of cutting away of tissue) Non-excisional debridement (the removal of necrotic, devitalized tissue or slough by means of flushing, brushing, or washing. (Irrigation) Other; please specify Unable to determine (Last Revision: August 2017) Excisional Debridement MTDD
--- NOTE | 2019-09-21 14:33 | CDI ---
Subcutaneous tissue Documentation Clarification Form Date: 09/21/19 From: Sofie Calderón CCS Phone: If you have a question about this query, please contact Mary Dalton, [employer] at [phone] between 8am and 5pm. Admit Date: 08/30/19 Discharge Date:09/04/19 Patient Name: Lorelei Brand Visit Number: [id number] ATTENTION: The Clinical Documentation Specialists (CDI) and [facility] Coding Staff appreciate your assistance in clarifying documentation. Please respond to the clarification below the line at the bottom and electronically sign. The CDI & [facility] Coding staff will review the response and follow-up if needed. Please note: Queries are made part of the Legal Health Record. If you have any questions, please contact the author of this message via ITS. Dear Dr. Bowles, Per your progress notes/operative note, an excisional debridement was performed on 08/29 History/Risk Factors: DM w/ foot ulcer, HTN, Cellulitis, CKD, Morbid Obesity Clinical Indicators: Bilateral chronic wounds Treatment: Excisional Debridement In order to capture the severity of condition and code the appropriate procedure; could you please document the following: Depth of the debridement* (e.g., skin, subcutaneous tissue, fascia, muscle, bone, etc.) Other; please specify __subcutaneous tissue Unable to determine MTDD
== END 2019-09-04 19:39 | DRG 623 ==
LOC: 4SSUR 11:41
PROVIDERS: ADMIT Family Medicine; ATTEND Family Medicine
PROC: 0JBR0ZZ Excision of Left Foot Subcutaneous Tissue and Fascia, Open Approach (ICD-10-PCS; principal; 2019-08-30)
PROC: 0JBQ0ZZ Excision of Right Foot Subcutaneous Tissue and Fascia, Open Approach (ICD-10-PCS; 2019-08-30)
PROC: 05HC33Z Insertion of Infusion Device into Left Basilic Vein, Percutaneous Approach (ICD-10-PCS; 2019-09-04)
DX: E11.621 Type 2 diabetes mellitus with foot ulcer (principal); J96.11 Chronic respiratory failure with hypoxia; I13.0 Hypertensive heart and chronic kidney disease with heart failure and stage 1 through stage 4 chronic kidney disease, or unspecified chronic kidney disease; L03.116 Cellulitis of left lower limb; L03.115 Cellulitis of right lower limb; E11.40 Type 2 diabetes mellitus with diabetic neuropathy, unspecified; L97.521 Non-pressure chronic ulcer of other part of left foot limited to breakdown of skin; L97.511 Non-pressure chronic ulcer of other part of right foot limited to breakdown of skin; I50.9 Heart failure, unspecified; E11.628 Type 2 diabetes mellitus with other skin complications; N18.3 Chronic kidney disease, stage 3 (moderate); E11.22 Type 2 diabetes mellitus with diabetic chronic kidney disease; J44.9 Chronic obstructive pulmonary disease, unspecified; I25.10 Atherosclerotic heart disease of native coronary artery without angina pectoris; M19.90 Unspecified osteoarthritis, unspecified site; E66.01 Morbid (severe) obesity due to excess calories; E78.5 Hyperlipidemia, unspecified; K21.9 Gastro-esophageal reflux disease without esophagitis; B95.2 Enterococcus as the cause of diseases classified elsewhere; G47.33 Obstructive sleep apnea (adult) (pediatric); Z68.39 Body mass index [BMI] 39.0-39.9, adult; F40.240 Claustrophobia; I25.2 Old myocardial infarction; Z79.02 Long term (current) use of antithrombotics/antiplatelets; Z79.82 Long term (current) use of aspirin; Z79.4 Long term (current) use of insulin; Z79.899 Other long term (current) drug therapy; Z99.81 Dependence on supplemental oxygen; Z87.01 Personal history of pneumonia (recurrent); Z95.5 Presence of coronary angioplasty implant and graft; Z90.49 Acquired absence of other specified parts of digestive tract; Z87.891 Personal history of nicotine dependence; Z91.81 History of falling; Z87.19 Personal history of other diseases of the digestive system; Z88.1 Allergy status to other antibiotic agents; Z88.0 Allergy status to penicillin; Z82.49 Family history of ischemic heart disease and other diseases of the circulatory system
CPT/HCPCS: 36410; 76937; 80048; 80053; 84484; 85025; 85652; 87070; 87075; 87205; 93005; 94640

== ENCOUNTER 2019-11-02 12:32 | Inpatient (IN) | payer MEDICARE, OTHER ==
[2019-11-02] MEDS ORDERED: IPRATROPIUM-ALBUTEROL 3 ML NEB INHALATION PRN (15:08)
[2019-11-02] MEDS ORDERED: ACETAMINOPHEN TAB 325 MG TAB PO PRN (15:16)
[2019-11-02 15:36] LABS: Anisocytosis Slight; Basophils % (A) 0 %; Eosinophils # (A) 0.3 k/uL (0-0.7); Eosinophils % (A) 2 %; HGB 9.4 gm/dL (11.4-16.0); Hypochromasia Marked; Lymphocytes # (A) 3.2 k/uL (1.0-4.8); Lymphocytes % (A) 21 %; MCH 21.6 pg (25.0-35.0); MCHC 29.5 g/dL (31.0-37.0); MCV 73.1 fL (80.0-100.0); Mean Platelet Volume 6.3; Microcytosis Moderate; Monocytes # (A) 0.7 k/uL (0-1.0); Monocytes % (A) 5 %; Neutrophils # (A) 10.8 k/uL (1.3-7.7); Neutrophils % (A) 71 %; Platelet Count 418 k/uL (150-450); RBC 4.38 m/uL (3.80-5.40); RDW 16.9 % (11.5-15.5); WBC 15.2 k/uL (3.8-10.6)
[2019-11-02 15:43] LABS: Albumin 3.9 g/dL (3.5-5.0); Calcium 9.6 mg/dL (8.4-10.2); Potassium 3.8 mmol/L (3.5-5.1); Total Bilirubin 0.3 mg/dL (0.2-1.3); Total Protein 7.3 g/dL (6.3-8.2)
[2019-11-02] MEDS: SODIUM CHLORIDE 0.9% 1,000 ML IV SCH (16:04)
[2019-11-02] MEDS: PANTOPRAZOLE 40 MG/10 ML VIAL IVP SCH (16:06)
[2019-11-02 17:10] LABS: Glucose,Whole Blood 160 mg/dL (75-99)
[2019-11-02] MEDS: INSULIN ASPART (NovoLOG) 100 UNIT/ML VIAL SQ SCH ×2 (17:21→20:41)
[2019-11-02] MEDS: AMPICILLIN-SULBACTAM 3 GM in SODIUM CHLORIDE 0.9% 100 ML IVPB SCH (17:21)
[2019-11-02] MEDS: HYDROcodone/APAP 7.5-325MG 1 EACH TAB PO PRN (17:55)
[2019-11-02] MEDS ORDERED: AMPICILLIN-SULBACTAM 3 GM VIAL IVPB SCH (18:00)
[2019-11-02] MEDS: IPRATROPIUM-ALBUTEROL 3 ML NEB INHALATION SCH ×2 (19:30→19:51)
[2019-11-02] MEDS: SYMBICORT 160-4.5 MCG INHALER INHALATION SCH (19:51)
[2019-11-02 20:28] LABS: Glucose,Whole Blood 210 mg/dL (75-99)
[2019-11-02] MEDS: rOPINIRole HCL 4 MG TABLET PO SCH (20:41)
[2019-11-02] MEDS: MELATONIN 5 MG TABLET PO SCH (20:41)
[2019-11-03] MEDS: AMPICILLIN-SULBACTAM 3 GM in SODIUM CHLORIDE 0.9% 100 ML IVPB SCH ×5 (01:20→23:53)
[2019-11-03] MEDS: HYDROcodone/APAP 7.5-325MG 1 EACH TAB PO PRN ×3 (02:46→18:10)
[2019-11-03 06:51] LABS: Glucose,Whole Blood 216 mg/dL (75-99)
[2019-11-03] MEDS: rOPINIRole HCL 4 MG TABLET PO SCH ×3 (06:58→22:04)
[2019-11-03] MEDS: PANTOPRAZOLE 40 MG/10 ML VIAL IVP SCH (06:58)
[2019-11-03] MEDS: INSULIN ASPART (NovoLOG) 100 UNIT/ML VIAL SQ SCH ×4 (06:58→22:06)
[2019-11-03 07:13] LABS: Anisocytosis Slight; Basophils % (A) 0 %; Eosinophils # (A) 0.1 k/uL (0-0.7); Eosinophils % (A) 1 %; HCT 31.2 % (34.0-46.0); HGB 9.2 gm/dL (11.4-16.0); Hypochromasia Marked; Lymphocytes # (A) 1.8 k/uL (1.0-4.8); Lymphocytes % (A) 16 %; MCH 21.3 pg (25.0-35.0); MCHC 29.6 g/dL (31.0-37.0); Mean Platelet Volume 6.8; Microcytosis Moderate; Monocytes # (A) 0.5 k/uL (0-1.0); Monocytes % (A) 5 %; Neutrophils # (A) 8.8 k/uL (1.3-7.7); Neutrophils % (A) 77 %; Platelet Count 375 k/uL (150-450); RBC 4.34 m/uL (3.80-5.40); RDW 17.5 % (11.5-15.5); WBC 11.4 k/uL (3.8-10.6)
[2019-11-03 07:22] LABS: African American GFR (CKD) >90 (>60 ml/min/1.73 sqM); Anion Gap 8 mmol/L; Blood Urea Nitrogen 15 mg/dL (7-17); Calcium 9.1 mg/dL (8.4-10.2); Carbon Dioxide 26 mmol/L (22-30); Chloride 102 mmol/L (98-107); Glucose 193 mg/dL (74-99); Non-African American GFR(CKD) 88 (>60 ml/min/1.73 sqM); Potassium 4.1 mmol/L (3.5-5.1); Sodium 136 mmol/L (137-145)
--- NOTE | 2019-11-03 07:59 | P.CONS ---
History of Present Illness - Reason for Consult Consult date: 11/02/19 Bilateral diabetic foot ulcer and cellulitis Requesting physician: Medardo Grande - Chief Complaint Bilateral foot ulcer with redness x few days - History of Present Illness Patient is a 74-year-old female with a past medical history significant for bilateral feet plantar ulcers with the patient has for a couple of months now patient is currently being treated for the results of by her home care nurse practitioner Ann, patient mentioned that had been using some special time of dressing on these wounds, patient was evaluated by her primary care physician in the office today where she was noticed to have more redness around the wound with concern for cellulitis patient has been admitted directly to the hospital and facet disease was consulted for further management of antibiotic therapy, on today's evaluation that is 11/02/2019 but denies having any fever or any chills, she been coming of some dull aching pressure-like pain around the wound with a density about 3-4 out of 10 and no radiation but denies any foul-smelling drainage from the wound, denies having any chest pain shortness of breath or cough no nausea no vomiting no abdominal pain no di arrhea, patient was noticed to have elevated white count 15,000 on admission Review of Systems Positive point has been mentioned in the HPI rest of the systems are negative Past Medical History Past Medical History: Asthma, Coronary Artery Disease (CAD), Heart Failure, COPD, Diabetes Mellitus, Hyperlipidemia, Hypertension, Myocardial Infarction ([place]), Osteoarthritis (OA), Pneumonia, Renal Disease, Skin Disorder, Sleep Apnea/CPAP/BIPAP Additional Past Medical History / Comment(s): NIDDM type II, neuropathy bilateral feet, bilateral diabetic great toe ulcers with 2ndary cellulitis, colitis with recent flare, recent r side pneumonia, renal insufficiency, IRA with no device, home oxygen at 2L/NC at HS, RLS, diarrhea. Last Myocardial Infarction Date:: 2017 History of Any Multi-Drug Resistant Organisms: None Reported Past Surgical History: Appendectomy, Breast Surgery, Cholecystectomy, Heart Catheterization, Heart Catheterization With Stent Additional Past Surgical History / Comment(s): PCI with stents, R lung thoracotomy/decortication for empyema, L breast benign bx, colonoscopy Past Anesthesia/Blood Transfusion Reactions: No Reported Reaction Additional Past Anesthesia/Blood Transfusion Reaction / Comm: severe claustrophobia Date of Last Stent Placement:: 11/30/2017 Past Psychological History: No Psychological Hx Reported Additional Psychological History / Comment(s): Severe claustrophobia. Pt resides alone in her home. She has 14 stair steps to get up to her bathroom/bedroom. She is established with [facility]- a nurse for wound care and PT. Smoking Status: Former smoker Past Alcohol Use History: None Reported Additional Past Alcohol Use History / Comment(s): STARTED SMOKING AGE 18 (1963) AND QUIT 1994. SMOKED 1 PPD. STATES SHE IS AN ALCOHOLIC AND QUIT DRINKING 29 y rs ago Past Drug Use History: None Reported - Past Family History Brother(s) Family Medical History: Cancer Father Family Medical History: Chest Pain / Angina Additional Family Medical History / Comment(s): Father of a [place] at the age of 77yrs. Mother Family Medical History: Chest Pain / Angina Additional Family Medical History / Comment(s): Mother of a [place] at the age of 74yrs. Medications and Allergies Home Medications Medication Instructions Recorded Confirmed Type Cholecalciferol [Vitamin D3 (25 1,000 unit PO DAILY 02/26/15 11/02/19 History Mcg = 1000 Iu)] Clopidogrel [Plavix] 75 mg PO DAILY 09/05/15 11/02/19 History Montelukast Sodium [Singulair] 10 mg PO HS #30 tab 10/25/15 11/02/19 Rx Nitroglycerin Sl Tabs [Nitrostat] 0.4 mg SUBLINGUAL Q5M PRN #0 tab 09/24/16 11/02/19 Rx Metoprolol Tartrate [Lopressor] 50 mg PO BID 02/09/18 11/02/19 History [place]-3 Fatty Acids [[place]-3] 2,000 mg PO DAILY 09/29/18 11/02/19 History Isosorbide Mononitrate ER [Imdur] 60 mg PO DAILY #30 tab.er.24h 11/17/18 11/02/19 Rx Dicyclomine [Bentyl] 10 mg PO DAILY 04/16/19 11/02/19 History Aspirin 81 mg PO DAILY chew 04/17/19 11/02/19 Rx Acetaminophen Tab [Tylenol] 500 mg PO Q6HR PRN tab 06/23/19 11/02/19 Rx Fluticasone/Umeclidin/Vilanter 1 puff INHALATION RT-DAILY 07/07/19 11/02/19 History [Stoney Ellipta 100-62.5-25] Omeprazole 20 mg PO HS 07/07/19 11/02/19 History Dulaglutide [Trulicity] 1.5 mg SQ KISER 08/15/19 11/02/19 History Furosemide [Lasix] 40 mg PO BID 08/15/19 11/02/19 History Insulin Aspart Protam & Aspart 30 unit SQ BID 08/15/19 11/02/19 History [NovoLOG MIX 70-30 Flexpen] Metoclopramide [Reglan] 10 mg PO QID PRN 08/15/19 11/02/19 History Sucralfate [Carafate] 1 gm PO QID 08/15/19 11/02/19 History metFORMIN HCL 1,000 mg PO BID 08/15/19 11/02/19 History Lisinopril 40 mg PO DAILY 08/30/19 11/02/19 History Simvastatin [Zocor] 20 mg PO HS 08/30/19 11/02/19 History amLODIPine [Norvasc] 10 mg PO DAILY 08/30/19 11/02/19 History HYDROcodone/APAP 7.5-325MG [[place] 1 tab PO Q6H PRN #12 tab 09/04/19 11/02/19 Rx 7.5-325] Magnesium Oxide 400 mg PO DAILY 11/02/19 11/02/19 History Potassium Chloride ER [K-Dur 20] 20 meq PO BID 11/02/19 11/02/19 History rOPINIRole HCL [Requip] 4 mg PO TID 11/02/19 11/02/19 History Allergies Allergy/AdvReac Type Severity Reaction Status Date / Time amoxicillin [From Augmentin] Allergy Rash/Hives Verified 11/02/19 16:19 clavulanic acid Allergy Rash/Hives Verified 11/02/19 16:19 [From Augmentin] metronidazole [From Flagyl] Allergy Nausea & Verified 11/02/19 16:19 Vomiting adhesive tape AdvReac bruises,"paper Verified 11/02/19 16:19 tape is ok" albuterol AdvReac Rapid Verified 11/02/19 16:19 Heart Rate stress test injection Allergy Anaphylaxis Uncoded 07/07/19 12:07 sun dried tomatoes Allergy lip Uncoded 07/07/19 12:07 swelling Physical Exam Vitals: Vital Signs Temp Pulse Resp BP Pulse Ox 11/02/19 16:00 16 11/02/19 15:00 98.9 F 82 16 145/63 92 L Intake and Output 11/02/19 11/02/19 11/02/19 06:59 14:59 22:59 Other: Weight 119.748 kg GENERAL DESCRIPTION: An elderly female lying in bed, no distress. No tachypnea or accessory muscle of respiration use. HEENT: Shows Pallor , no scleral icterus. Oral mucous membrane is dry. No pharyn geal erythema or thrush NECK: Trachea central, no thyromegaly. LUNGS: Unlabored breathing. Clear to auscultation anteriorly. No wheeze or crackle. HEART: S1, S2, regular rate and rhythm. No loud murmur ABDOMEN: Soft, no tenderness , guarding or rigidity, no organomegaly EXTREMITIES: Bilateral feet plantar ulcers at the base of the first metatarsal head wound base is no significant slough tissue or any foul-smelling drainage however there is some surrounding erythema and swelling slightly warm to touch SKIN: No rash, no masses palpable. NEUROLOGICAL: The patient is awake, alert, oriented x3, mood and affect normal. Results CBC & Chem 7: 11/03/19 06:21 11/03/19 06:21 Labs: Abnormal Lab Results - Last 24 Hours (Table) 11/02/19 11/02/19 Range/Units 15:26 15:26 WBC 15.2 H (3.8-10.6) k/uL Hgb 9.4 L (11.4-16.0) gm/dL Hct 32.0 L (34.0-46.0) % MCV 73.1 L (80.0-100.0) fL MCH 21.6 L (25.0-35.0) pg MCHC 29.5 L (31.0-37.0) g/dL RDW 16.9 H (11.5-15.5) % Neutrophils # 10.8 H (1.3-7.7) k/uL Sodium 134 L (137-145) mmol/L BUN 23 H (7-17) mg/dL Glucose 162 H (74-99) mg/dL ALT 36 H (4-34) U/L Assessment and Plan Assessment: 1- patient with bilateral diabetic foot ulcer with secondary cellulitis in this patient predominantly has grown gram-positive in her cultures from previous admissions 2-Patient with multiple antibiotic ALLERGIES that would limit the number of antibiotic safe to use (1) Diabetes mellitus with foot ulcer Current Visit: Yes Status: Acute Code(s): E11.621 - TYPE 2 DIABETES MELLITUS WITH FOOT ULCER; L97.509 - NON-PRESSURE CHRONIC ULCER OTH PRT UNSP FOOT W UNSP SEVERITY SNOMED Code(s): 45471655 (2) Cellulitis of both feet Current Visit: Yes Status: Acute Code(s): L03.115 - CELLULITIS OF RIGHT LOWER LIMB; L03.116 - CELLULITIS OF LEFT LOWER LIMB SNOMED Code(s): 159886259 Plan: 1- we will obtain local wound culture both aerobic and anaerobic 2-x-rays of both feet to rule out any bony changes 3- Unasyn 3 g every 6 hours 4- local wound care with Aquacel silver dressing and keep the area of the pressure We will follow on clinical condition and cultures to further adjust medication if needed Thank you for this consultation will follow this patient with you
[2019-11-03] MEDS ORDERED: NON FORMULARY DRUG (Fluticasone/Umeclidin/Vilanter [Trelegy Ellipta 100-62.5-25] 1 PUFF) INHALATION SCH (08:00)
[2019-11-03] MEDS ORDERED: OMEGA PO SCH (09:45)
[2019-11-03] MEDS ORDERED: FATTY ACIDS PO SCH (09:45)
--- NOTE | 2019-11-03 09:51 | HP ---
HISTORY AND PHYSICAL A 74-year-old white female sent to the hospital for worsening wound infection of the bilateral feet, of the great toe, metatarsal, tarsal joints with open ulcerations and increased redness surrounding entire big toes on bilateral feet, extending up to mid foot. She was admitted with IV antibiotics and Infectious Disease consult. She has also been having increasing amounts of unstable angina. She has 5 stents in her cardiac history. She takes 6 nitroglycerin every day due to severe pain in her chest, which relieves the pain. EKG shows STT inversions in multiple leads. Cardiology is consulted for possible heart catheterization also. In the mean time, she will stay on IV antibiotics with Rocephin which was started with Infectious Disease consult. She has increasing shortness of breath in the house and worsening chest pain as mentioned above. Home medicines include Requip 4 mg t.i.d. for restless legs syndrome, Mag oxide 400 mg daily, metformin 1000 b.i.d., Norvasc 10 mg daily, Carafate 1 g q.i.d., potassium chloride 20 mEq b.i.d., Lopressor 50 b.i.d., lisinopril 40 mg daily, Imdur 60 mg daily, 70/30 NovoLog insulin, 30 units subcu b.i.d., Sinclair 7.5 q.i.d., Lasix 40 mg b.i.d., 1 puff daily, Bentyl 10 mg daily, Plavix 75 mg daily, aspirin 81 mg daily, Zocor 20 mg daily, omeprazole 20 mg daily, Singulair 10 mg daily, Reglan 10 mg q.i.d. for gastroparesis, Trulicity 1.5 mg subcu weekly. 14 POINT REVIEW OF SYSTEMS: Negative except for as mentioned in HPI. Temperature 97.9, pulse is 70s to 80s, respiratory 16 to 18, blood pressure is 113/70s, O2 94% on 2 L. CARDIOVASCULAR: S1-S2. LUNGS: Show wheezes x4. She has been without her nebulizer treatments at home, although she does take Incruse and Symbicort for inhalers every day and Ventolin. ENDOCRINE: BMI is over 40. GI: Distended, obesity. PSYCH: Fair mood and affect. NEUROLOGIC: Moves all 4 extremities. INTEGUMENT: Shows swelling over the bilateral big toes and surrounding half-dollar type ulcerations extending a cm deep into bilateral feet and half-dollar size on both dorsum of each foot at the tarsometatarsal of the great toe joint area. I do not see much of a purulent drainage from those areas, but there is increasing redness around the entire toe and up to the mid foot area. ASSESSMENT: Severe cellulitis, diabetic foot wound infection, bilateral feet, unstable angina, abnormal EKG, suspect she may need a heart catheterization. Continue with IV antibiotics. Wait for Cardiology Infectious Disease consults. Continue home medications. Accu-Chek protocol, continue DuoNeb updrafts for COPD and restless leg medications. Hypertension medications, cholesterol medications. Please see further orders. MMODL / IJN: [id number] /
[2019-11-03] MEDS: ASPIRIN 81 MG PO SCH (10:20)
[2019-11-03] MEDS: FUROSEMIDE 40 MG TAB PO SCH ×2 (10:20→22:06)
[2019-11-03] MEDS: amLODIPine 10 MG TAB PO SCH (10:20)
[2019-11-03] MEDS: LISINOPRIL 20 MG TAB PO SCH (10:20)
[2019-11-03] MEDS: metFORMIN 500 MG TAB PO SCH ×2 (10:20→22:05)
[2019-11-03] MEDS: ISOSORBIDE MONONITRATE ER 60 MG TAB.ER.24H PO SCH (10:20)
[2019-11-03] MEDS: MAGNESIUM OXIDE 400 MG TAB PO SCH (10:21)
[2019-11-03] MEDS: DICYCLOMINE 10 MG CAP PO SCH (10:21)
[2019-11-03] MEDS: CHOLECALCIFEROL 1,000 UNIT TAB PO SCH (10:21)
[2019-11-03] MEDS: CLOPIDOGREL 75 MG TAB PO SCH (10:21)
[2019-11-03] MEDS: METOPROLOL TARTRATE 50 MG TAB PO SCH ×2 (10:21→22:04)
[2019-11-03] MEDS: INSULN ASP PRT/INSULIN ASPART 100 UNIT/ML 10 ML VIAL SQ SCH ×2 (10:22→22:06)
[2019-11-03] MEDS: ONDANSETRON 4 MG/2 ML VIAL IVP PRN ×2 (10:39→18:03)
[2019-11-03] MEDS: NITROGLYCERIN SL TABS 0.4 MG TAB SUBLINGUAL PRN ×6 (10:39→22:44)
[2019-11-03] MEDS: SYMBICORT 160-4.5 MCG INHALER INHALATION SCH ×2 (11:30→18:55)
[2019-11-03] MEDS: IPRATROPIUM-ALBUTEROL 3 ML NEB INHALATION SCH ×4 (11:30→18:55)
[2019-11-03] MEDS: SODIUM CHLORIDE 0.9% 1,000 ML IV SCH (11:31)
[2019-11-03 11:34] LABS: Glucose,Whole Blood 285 mg/dL (75-99)
[2019-11-03] MEDS ORDERED: TRIMETHOBENZAMIDE 100 MG/ML 2 ML VIAL IM ONE (12:04)
[2019-11-03] MEDS: RANOLAZINE 500 MG TAB.ER.12H PO SCH ×2 (13:17→22:05)
[2019-11-03] MEDS: NITROGLYCERIN OINT 1 INCH/GM PACKET TOPICAL SCH ×3 (15:15→23:53)
[2019-11-03] MEDS: SUCRALFATE 1 GM TAB PO SCH ×4 (15:16→22:04)
[2019-11-03] MEDS: METOCLOPRAMIDE 10 MG TAB PO PRN (15:19)
[2019-11-03] MEDS: ACETAMINOPHEN TAB 500 MG TAB PO PRN (15:23)
--- NOTE | 2019-11-03 15:54 | P.CRDCN ---
History of Present Illness Consult date: 11/03/19 History of present illness: This is a 80-year-old female with history of ischemic heart disease with a previous stent placement of the heart. 3 vessels with recent Cardec catheterization showing patent stents, COPD, diabetes, hyperlipidemia and hypertension is admitted to the hospital with a cellulitis. Infectious disease consult is initiated for further care. Patient has been complaining of some chest pain. Today she is complaining more and abdominal discomfort and nausea. The chest discomfort apparently was relieved with nitroglycerin. EKG showed some ST depression in inferolateral leads suggestive of possible ischemia. Patient was once again admitted to the fourth floor and subsequently transferred to stepdown unit. Patient incision and Nitropaste. Cardiac enzymes are being followed. Patient needs treatment for nausea and abdominal discomfort. Further examination depend upon the findings on the about testing. If the troponins are positive, may need cardiac catheterization. If not, we'll continue maximal medical therapy. We'll make add Ranexa for anginal control. Last Cardec catheterization revealed patent stents in all 3 major vessels with a stable disease in the diagonal Review of Systems As per the chart Past Medical History Past Medical History: Asthma, Coronary Artery Disease (CAD), Heart Failure, COPD, Diabetes Mellitus, Hyperlipidemia, Hypertension, Myocardial Infarction (DC), Osteoarthritis (OA), Pneumonia, Renal Disease, Skin Disorder, Sleep Apnea/CPAP/BIPAP Additional Past Medical History / Comment(s): NIDDM type II, neuropathy bilateral feet, bilateral diabetic great toe ulcers with 2ndary cellulitis, colitis with recent flare, recent r side pneumonia, renal insufficiency, IRA with no device, home oxygen at 2L/NC at HS, RLS, diarrhea. Last Myocardial Infarction Date:: 2017 History of Any Multi-Drug Resistant Organisms: None Reported Past Surgical History: Appendectomy, Breast Surgery, Cholecystectomy, Heart Catheterization, Heart Catheterization With Stent Additional Past Surgical History / Comment(s): PCI with stents, R lung thoracotomy/decortication for empyema, L breast benign bx, colonoscopy Past Anesthesia/Blood Transfusion Reactions: No Reported Reaction Additional Past Anesthesia/Blood Transfusion Reaction / Comment(s): severe claustrophobia Date of Last Stent Placement:: 11/30/2017 Past Psychological History: No Psychological Hx Reported Additional Psychological History / Comment(s): Severe claustrophobia. Pt resides alone in her home. She has 14 stair steps to get up to her bathroom/bedroom. She is established with [facility]- a nurse for wound care and PT. Smoking Status: Former smoker Past Alcohol Use History: None Reported Additional Past Alcohol Use History / Comment(s): STARTED SMOKING AGE 18 (1963) AND QUIT 1994. SMOKED 1 PPD. STATES SHE IS AN ALCOHOLIC AND QUIT DRINKING 29 yrs ago Past Drug Use History: None Reported - Past Family History Brother(s) Family Medical History: Cancer Father Family Medical History: Chest Pain / Angina Additional Family Medical History / Comment(s): Father of a DC at the age of 77yrs. Mother Family Medical History: Chest Pain / Angina Additional Family Medical History / Comment(s): Mother of a DC at the age of 74yrs. Medications and Allergies Home Medications Medication Instructions Recorded Confirmed Type Cholecalciferol [Vitamin D3 (25 1,000 unit PO DAILY 02/26/15 11/02/19 History Mcg = 1000 Iu)] Clopidogrel [Plavix] 75 mg PO DAILY 09/05/15 11/02/19 History Montelukast Sodium [Singulair] 10 mg PO HS #30 tab 10/25/15 11/02/19 Rx Nitroglycerin Sl Tabs [Nitrostat] 0.4 mg SUBLINGUAL Q5M PRN #0 tab 09/24/16 11/02/19 Rx Metoprolol Tartrate [Lopressor] 50 mg PO BID 02/09/18 11/02/19 History [place]-3 Fatty Acids [[place]-3] 2,000 mg PO DAILY 09/29/18 11/02/19 History Isosorbide Mononitrate ER [Imdur] 60 mg PO DAILY #30 tab.er.24h 11/17/18 11/02/19 Rx Dicyclomine [Bentyl] 10 mg PO DAILY 04/16/19 11/02/19 History Aspirin 81 mg PO DAILY chew 04/17/19 11/02/19 Rx Acetaminophen Tab [Tylenol] 500 mg PO Q6HR PRN tab 06/23/19 11/02/19 Rx Fluticasone/Umeclidin/Vilanter 1 puff INHALATION RT-DAILY 07/07/19 11/02/19 History [Trelegy Ellipta 100-62.5-25] Omeprazole 20 mg PO HS 07/07/19 11/02/19 History Dulaglutide [Trulicity] 1.5 mg SQ KISER 08/15/19 11/02/19 History Furosemide [Lasix] 40 mg PO BID 08/15/19 11/02/19 History Insulin Aspart Protam & Aspart 30 unit SQ BID 08/15/19 11/02/19 History [NovoLOG MIX 70-30 Flexpen] Metoclopramide [Reglan] 10 mg PO QID PRN 08/15/19 11/02/19 History Sucralfate [Carafate] 1 gm PO QID 08/15/19 11/02/19 History metFORMIN HCL 1,000 mg PO BID 08/15/19 11/02/19 History Lisinopril 40 mg PO DAILY 08/30/19 11/02/19 History Simvastatin [Zocor] 20 mg PO HS 08/30/19 11/02/19 History amLODIPine [Norvasc] 10 mg PO DAILY 08/30/19 11/02/19 History HYDROcodone/APAP 7.5-325MG [[place] 1 tab PO Q6H PRN #12 tab 09/04/19 11/02/19 Rx 7.5-325] Magnesium Oxide 400 mg PO DAILY 11/02/19 11/02/19 History Potassium Chloride ER [K-Dur 20] 20 meq PO BID 11/02/19 11/02/19 History rOPINIRole HCL [Requip] 4 mg PO TID 11/02/19 11/02/19 History Allergies Allergy/AdvReac Type Severity Reaction Status Date / Time amoxicillin [From Augmentin] Allergy Rash/Hives Verified 11/02/19 16:19 clavulanic acid Allergy Rash/Hives Verified 11/02/19 16:19 [From Augmentin] metronidazole [From Flagyl] Allergy Nausea & Verified 11/02/19 16:19 Vomiting adhesive tape AdvReac bruises,"paper Verified 11/02/19 16:19 tape is ok" albuterol AdvReac Rapid Verified 11/02/19 16:19 Heart Rate stress test injection Allergy Anaphylaxis Uncoded 07/07/19 12:07 sun dried tomatoes Allergy lip Uncoded 07/07/19 12:07 swelling Physical Exam Vitals: Vital Signs Temp Pulse Pulse Resp BP Pulse Ox 11/03/19 14:57 72 18 132/62 92 L 11/03/19 12:31 93 131/69 06/19/20 12:27 94 114/75 11/03/19 11:45 82 11/03/19 11:30 74 11/03/19 10:53 102 H 133/66 11/03/19 10:47 91 134/65 94 L 11/03/19 07:45 17 11/03/19 07:00 98.1 F 91 17 139/77 96 11/03/19 03:19 88 11/03/19 03:11 86 11/03/19 00:33 97.9 F 86 16 137/73 94 L 11/02/19 20:02 76 11/02/19 19:53 72 11/02/19 19:05 99.0 F 87 16 151/62 92 L 11/02/19 16:00 16 Intake and Output 11/03/19 11/03/19 11/03/19 06:59 14:59 22:59 Intake Total 200 Balance 200 Intake: Intake, IV Titration 200 Amount Sodium Chloride 0.9% 1, 200 000 ml @ 50 mls/hr IV . Q20H [facility] Rx#:[id number] GENERAL EXAM: Patient is alert and oriented and doesn't appear to be in any acute distress HEENT: Normocephalic. Normal reaction of pupils, equal size, normal range of extraocular motion. No erythema or exudates in the throat. NECK: No masses, no nuchal rigidity. CHEST: No chest wall deformity. LUNGS: Equal air entry with no crackles or wheeze. HEART: S1 and S2 normal with no audible mumurs or gallops. Regular rhythm, femorals equal on both sides.. ABDOMEN: No hepatosplenomegaly, normal bowel sounds, no guarding or rigidity. SKIN: No rashes CENTRAL NERVOUS SYSTEM: No focal deficits. EXTREMITIES: Also some cellulitis as described by ID Results 11/03/19 06:21 11/03/19 06:21 Cardiac Enzymes 11/02/19 11/03/19 Range/Units 15:26 06:21 Troponin I <0.012 0.016 (0.000-0.034) ng/mL CBC 11/03/19 Range/Units 06:21 WBC 11.4 H (3.8-10.6) k/uL RBC 4.34 (3.80-5.40) m/uL Hgb 9.2 L (11.4-16.0) gm/dL Hct 31.2 L (34.0-46.0) % Plt Count 375 (150-450) k/uL Comprehensive Metabolic Panel 11/03/19 Range/Units 06:21 Sodium 136 L (137-145) mmol/L Potassium 4.1 (3.5-5.1) mmol/L Chloride 102 (98-107) mmol/L Carbon Dioxide 26 (22-30) mmol/L BUN 15 (7-17) mg/dL Creatinine 0.67 (0.52-1.04) mg/dL Glucose 193 H (74-99) mg/dL Calcium 9.1 (8.4-10.2) mg/dL Current Medications Generic Name Dose Route Start Last Admin Trade Name Freq PRN Reason Stop Dose Admin Acetaminophen 500 mg 11/03/19 09:39 11/03/19 15:23 Tylenol Tab PO 500 mg Q6HR PRN Administration Fever and/ or Pain Hydrocodone Bitart/Acetaminophen 1 each 11/02/19 17:43 11/03/19 09:53 [place] 7.5-325 PO 1 each Q6H PRN Administration Pain Albuterol/Ipratropium 3 ml 11/02/19 16:00 11/03/19 11:50 Duoneb 0.5 Mg-3 Mg/3 Ml Soln INHALATION Not Given RT-QID ANDREW Albuterol/Ipratropium 3 ml 11/02/19 15:08 11/03/19 03:11 Duoneb 0.5 Mg-3 Mg/3 Ml Soln INHALATION 3 ml RT-Q2H PRN Administration Shortness Of Breath Or Wheezing Amlodipine Besylate 10 mg 11/03/19 09:45 11/03/19 10:20 Norvasc PO 10 mg DAILY ANDREW Administration Aspirin 81 mg 11/03/19 09:45 11/03/19 10:20 Aspirin PO 81 mg DAILY ANDREW Administration Atorvastatin Calcium 10 mg 11/03/19 21:00 Lipitor PO HS [facility] Budesonide/Formoterol Fumarate 2 puff 11/02/19 20:00 11/03/19 11:30 Symbicort 160-4.5 Mcg Inhaler INHALATION 2 puff RT-BID ANDREW Administration Cholecalciferol 1,000 unit 11/03/19 09:45 11/03/19 10:21 Vitamin D3 (25 Mcg = 1000 Iu) PO 1,000 unit DAILY ANDREW Administration Clopidogrel Bisulfate 75 mg 11/03/19 09:45 11/03/19 10:21 Plavix PO 75 mg DAILY ANDREW Administration Dicyclomine HCl 10 mg 11/03/19 09:45 11/03/19 10:21 Bentyl PO 10 mg DAILY ANDREW Administration Furosemide 40 mg 11/03/19 09:45 11/03/19 10:20 Lasix PO 40 mg BID ANDREW Administration Sodium Chloride 1,000 mls @ 50 mls/hr 11/02/19 15:15 11/03/19 11:31 Saline 0.9% IV 50 mls/hr .Q20H ANDREW Administration Ampicillin Sodium/Sulbactam 100 mls @ 200 mls/hr 11/02/19 18:00 11/03/19 11:33 Sodium 3 gm/ Sodium Chloride IVPB 200 mls/hr Q6HR ANDREW Administration Insulin Aspart 0 unit 11/02/19 17:30 11/03/19 11:37 Novolog SQ 7 unit ACHS ANDREW Administration Protocol Insulin Aspart 30 unit 11/03/19 09:45 11/03/19 10:22 Novolog Mix 70-30 Vial SQ 30 unit BID ANDREW Administration Isosorbide Mononitrate 60 mg 11/03/19 09:45 11/03/19 10:20 Imdur PO 60 mg DAILY ANDREW Administration Lisinopril 40 mg 11/03/19 09:45 11/03/19 10:20 Zestril PO 40 mg DAILY ANDREW Administration Magnesium Oxide 400 mg 11/03/19 09:45 11/03/19 10:21 Mag-Ox PO 400 mg DAILY ANDREW Administration Melatonin 5 mg 11/02/19 21:00 11/02/19 20:41 Melatonin PO 5 mg HS ANDREW Administration Metformin HCl 1,000 mg 11/03/19 09:45 11/03/19 10:20 Glucophage PO 1,000 mg BID ANDREW Administration Metoclopramide HCl 10 mg 11/03/19 09:39 11/03/19 15:19 Reglan PO 10 mg QID PRN Administration Nausea Metoprolol Tartrate 50 mg 11/03/19 09:45 11/03/19 10:21 Lopressor PO 50 mg BID ANDREW Administration Montelukast Sodium 10 mg 11/03/19 21:00 Singulair PO HS ANDREW Nitroglycerin 0.4 mg 11/03/19 09:39 11/03/19 12:23 Nitrostat SUBLINGUAL 0.4 mg Q5M PRN Administration Chest Pain Nitroglycerin 1 inch 11/03/19 14:00 11/03/19 15:15 Nitro-Bid Oint TOPICAL 1 inch Q6HR ANDREW Administration (Dulaglutide [ 1.5 mg 11/05/19 09:00 Trulicity] 1.5 Mg) SQ KISER ANDREW Ondansetron HCl 4 mg 11/03/19 10:24 11/03/19 10:39 Zofran IVP 4 mg Q6HR PRN Administration Nausea And Vomiting Pantoprazole Sodium 40 mg 11/02/19 15:15 11/03/19 06:58 Protonix IVP 40 mg DAILY ANDREW Administration Ranolazine 500 mg 11/03/19 11:30 11/03/19 13:17 Ranexa PO Not Given Q12HR ANDREW Ropinirole HCl 4 mg 11/02/19 22:00 11/03/19 06:58 Requip PO 4 mg TID ANDREW Administration Sucralfate 1 gm 11/03/19 13:00 11/03/19 15:19 Carafate PO 1 gm QID ANDREW Administration Intake and Output 11/03/19 11/03/19 11/03/19 06:59 14:59 22:59 Intake Total 200 Balance 200 Intake: Intake, IV Titration 200 Amount Sodium Chloride 0.9% 1, 200 000 ml @ 50 mls/hr IV . Q20H ANDREW Rx#:[id number] 11/03/19 06:21 11/03/19 06:21 EKG Interpretations (text) Sinus rhythm with a diffuse ST-T changes inferolateral leads Assessment and Plan (1) Cellulitis of both feet Current Visit: Yes Status: Acute Code(s): L03.115 - CELLULITIS OF RIGHT LOWER LIMB; L03.116 - CELLULITIS OF LEFT LOWER LIMB SNOMED Code(s): 192067415 (2) Diabetes mellitus with foot ulcer Current Visit: Yes Status: Acute Code(s): E11.621 - TYPE 2 DIABETES MELLITUS WITH FOOT ULCER; L97.509 - NON-PRESSURE CHRONIC ULCER OTH PRT UNSP FOOT W UNSP SEVERITY SNOMED Code(s): 48834739 (3) Abdominal pain Current Visit: No Status: Acute Code(s): R10.9 - UNSPECIFIED ABDOMINAL PAIN SNOMED Code(s): 39343887 (4) CAD (coronary artery disease) Current Visit: No Status: Acute Code(s): I25.10 - ATHSCL HEART DISEASE OF [place] CORONARY ARTERY W/O ANG PCTRS SNOMED Code(s): 68143456 (5) Chest pain Current Visit: No Status: Acute Code(s): R07.9 - CHEST PAIN, UNSPECIFIED SNOMED Code(s): 20064453 Plan: Continue to monitor her Cardec enzymes. Add nitro paste and Ranexa. Get an echocardiogram. ID consult. Further recommendation will depend upon the clinical course
--- NOTE | 2019-11-03 16:00 | ECHOF ---
Referral Reason:chest pain MEASUREMENTS -------- HEIGHT: 170.2 cm WEIGHT: 119.7 kg BP: RVIDd: 2.8 cm (< 3.3) IVSd: 1.6 cm (0.6 - 1.1) LVIDd: 3.9 cm (3.9 - 5.3) LVPWd: 1.8 cm (0.6 - 1.1) IVSs: 2.0 cm LVIDs: 2.0 cm LVPWs: 2.6 cm Ao Diam: 2.5 cm (2.0 - 3.7) AV Cusp: 1.9 cm (1.5 - 2.6) LA Diam: 4.0 cm (2.7 - 3.8) MV EXCURSION: 11.280 mm (> 18.000) MV EF SLOPE: 64 mm/s (70 - 150) EPSS: 1.3 cm MV E Dorian: 0.98 m/s MV DecT: 224 ms MV A Dorian: 0.99 m/s MV E/A Ratio: 0.99 RAP: 5.00 mmHg RVSP: 8.15 mmHg FINDINGS -------- Sinus rhythm. This was a technically difficult study with suboptimal views. The left ventricular size is normal. There is severe concentric left ventricular hypertrophy. Ove rall left ventricular systolic function is normal with, an EF between 55 - 60 %. The right ventricle is normal in size. The left atrial size is normal. The right atrial size is normal. xx ml of Lumason was utilized for enhancement of images. The aortic valve is trileaflet and appears structurally normal. The mitral valve was not well visualized. The tricuspid valve was not well visualized. The pulmonic valve was not well visualized. The aortic root size is normal. There is no pericardial effusion. CONCLUSIONS -------- 1. Sinus rhythm. 2. This was a technically difficult study with suboptimal views. 3. The left ventricular size is normal. 4. There is severe concentric left ventricular hypertrophy. 5. Overall left ventricular systolic function is normal with, an EF between 55 - 60 %. 6. The right ventricle is normal in size. 7. The left atrial size is normal. 8. The right atrial size is normal. 9. xx ml of Lumason was utilized for enhancement of images. 10. The aortic valve is trileaflet and appears structurally normal. 11. The mitral valve was not well visualized. 12. The tricuspid valve was not well visualized. 13. The pulmonic valve was not well visualized. 14. The aortic root size is normal. 15. There is no pericardial effusion. [employer]: Nathalie Acosta RDCS
[2019-11-03 16:47] LABS: Glucose,Whole Blood 218 mg/dL (75-99)
[2019-11-03 20:10] LABS: Glucose,Whole Blood 244 mg/dL (75-99)
[2019-11-03] MEDS ORDERED: NON FORMULARY DRUG (Omeprazole [Omeprazole] 20 MG) PO SCH (21:00)
[2019-11-03] MEDS: MELATONIN 5 MG TABLET PO SCH (22:05)
[2019-11-03] MEDS: MONTELUKAST 10 MG TAB PO SCH (22:05)
[2019-11-03] MEDS: ATORVASTATIN 10 MG TAB PO SCH (22:06)
[2019-11-03] MEDS ORDERED: HYDROmorphone 0.5 MG/0.5 ML SYRINGE IVP STA (22:51)
[2019-11-03] MEDS ORDERED: HEPARIN SODIUM,PORCINE 5,000 UNIT/ML 1 ML VIAL IV ONE (22:54)
[2019-11-03] MEDS ORDERED: HEPARIN SODIUM,PORCINE 5,000 UNIT/ML 1 ML VIAL IV PRN (22:54)
[2019-11-03] MEDS: HEPARIN SOD,PORK IN 0.45% NACL 25,000 UNIT in 0.45% NACL 1 250ML.BAG IV SCH (23:07)
--- NOTE | 2019-11-03 23:11 | PN ---
PROGRESS NOTE DATE OF SERVICE: 11/03/2019 REASON FOR FOLLOWUP: Bilateral diabetic foot wounds and cellulitis. INTERVAL HISTORY: The patient was seen on rounds this morning. The patient was complaining of nausea and episodes of vomiting and some epigastric discomfort. No chest pain or shortness of breath or cough. No abdominal pain or pain to the bilateral foot areas. PHYSICAL EXAMINATION: Blood pressure 139/77 with a pulse of 91, temperature 98.1. She is 96% on 2 L nasal cannula. General description is an elderly female up in the bed in no distress. RESPIRATORY SYSTEM: Unlabored breathing with decreased breath sounds at the base. No wheeze. HEART: S1, S2. Regular rate and rhythm. ABDOMEN: Soft. No tenderness. Bilateral foot wounds are currently dressed up. No obvious drainage on the dressing. LABS: Hemoglobin 9.2, white count 11.4, BUN of 15, creatinine 0.67. DIAGNOSTIC IMPRESSION AND PLAN: Patient with bilateral diabetic foot wounds with secondary cellulitis in this patient who did have x-rays of the feet in the outpatient setting showing soft tissue ulcers but no evidence of osteomyelitis. The plan is to continue with Unasyn 3 grams q.6 hours. Local care with Aquacel Silver dressing and cultures will be followed. MMODL / IJN: [id number] /
[2019-11-03 23:48] LABS: Anisocytosis Slight; Basophils % (A) 0 %; Eosinophils # (A) 0.1 k/uL (0-0.7); Eosinophils % (A) 0 %; HCT 32.6 % (34.0-46.0); HGB 9.3 gm/dL (11.4-16.0); Hypochromasia Marked; Lymphocytes # (A) 1.2 k/uL (1.0-4.8); Lymphocytes % (A) 9 %; MCH 20.7 pg (25.0-35.0); MCHC 28.6 g/dL (31.0-37.0); MCV 72.5 fL (80.0-100.0); Mean Platelet Volume 7.1; Microcytosis Moderate; Monocytes # (A) 0.5 k/uL (0-1.0); Monocytes % (A) 4 %; Neutrophils % (A) 86 %; Platelet Count 395 k/uL (150-450); RBC 4.49 m/uL (3.80-5.40); RDW 17.5 % (11.5-15.5); WBC 13.8 k/uL (3.8-10.6)
[2019-11-03 23:53] LABS: INR 0.9 (<1.2); Prothrombin Time 9.8 sec (9.0-12.0)
[2019-11-04] MEDS: AMPICILLIN-SULBACTAM 3 GM in SODIUM CHLORIDE 0.9% 100 ML IVPB SCH ×4 (05:56→23:51)
[2019-11-04] MEDS: NITROGLYCERIN OINT 1 INCH/GM PACKET TOPICAL SCH ×4 (05:56→23:52)
[2019-11-04 06:03] LABS: Anisocytosis Slight; Basophils % (A) 0 %; Eosinophils % (A) 0 %; HCT 31.8 % (34.0-46.0); HGB 9.6 gm/dL (11.4-16.0); Hypochromasia Marked; Lymphocytes % (A) 14 %; MCH 21.7 pg (25.0-35.0); MCHC 30.2 g/dL (31.0-37.0); Mean Platelet Volume 6.8; Microcytosis Moderate; Monocytes # (A) 0.5 k/uL (0-1.0); Monocytes % (A) 4 %; Neutrophils # (A) 11.5 k/uL (1.3-7.7); Neutrophils % (A) 81 %; Platelet Count 417 k/uL (150-450); RBC 4.42 m/uL (3.80-5.40); RDW 17.6 % (11.5-15.5); WBC 14.1 k/uL (3.8-10.6)
[2019-11-04] MEDS: HYDROcodone/APAP 7.5-325MG 1 EACH TAB PO PRN ×3 (06:09→23:52)
[2019-11-04] MEDS: ONDANSETRON 4 MG/2 ML VIAL IVP PRN ×3 (06:10→20:45)
[2019-11-04 06:29] LABS: Glucose,Whole Blood 221 mg/dL (75-99)
[2019-11-04] MEDS: INSULIN ASPART (NovoLOG) 100 UNIT/ML VIAL SQ SCH ×4 (07:01→20:43)
[2019-11-04] MEDS: SODIUM CHLORIDE 0.9% 1,000 ML IV SCH (07:06)
[2019-11-04 07:44] LABS: Erythrocyte Sedimentation Rate 58 mm/hr (0-20)
[2019-11-04] MEDS: SYMBICORT 160-4.5 MCG INHALER INHALATION SCH ×2 (07:58→19:23)
[2019-11-04] MEDS: IPRATROPIUM-ALBUTEROL 3 ML NEB INHALATION SCH ×4 (07:58→19:22)
[2019-11-04] MEDS: LISINOPRIL 20 MG TAB PO SCH (09:53)
[2019-11-04] MEDS: DICYCLOMINE 10 MG CAP PO SCH (09:53)
[2019-11-04] MEDS: rOPINIRole HCL 4 MG TABLET PO SCH ×3 (09:53→20:44)
[2019-11-04] MEDS: PANTOPRAZOLE 40 MG/10 ML VIAL IVP SCH (09:53)
[2019-11-04] MEDS: INSULN ASP PRT/INSULIN ASPART 100 UNIT/ML 10 ML VIAL SQ SCH ×2 (09:53→20:43)
[2019-11-04] MEDS: metFORMIN 500 MG TAB PO SCH ×2 (09:54→20:43)
[2019-11-04] MEDS: ISOSORBIDE MONONITRATE ER 60 MG TAB.ER.24H PO SCH (09:54)
[2019-11-04] MEDS: METOCLOPRAMIDE 10 MG TAB PO PRN ×3 (09:54→23:53)
[2019-11-04] MEDS: ASPIRIN 81 MG PO SCH (09:54)
[2019-11-04] MEDS: SUCRALFATE 1 GM TAB PO SCH ×4 (09:54→20:45)
[2019-11-04] MEDS: CHOLECALCIFEROL 1,000 UNIT TAB PO SCH (09:54)
[2019-11-04] MEDS: METOPROLOL TARTRATE 50 MG TAB PO SCH ×2 (09:54→20:45)
[2019-11-04] MEDS: amLODIPine 10 MG TAB PO SCH (09:54)
[2019-11-04] MEDS: MAGNESIUM OXIDE 400 MG TAB PO SCH (09:54)
[2019-11-04] MEDS: FUROSEMIDE 40 MG TAB PO SCH ×2 (09:54→20:44)
[2019-11-04] MEDS: RANOLAZINE 500 MG TAB.ER.12H PO SCH ×2 (09:54→20:44)
[2019-11-04] MEDS: CLOPIDOGREL 75 MG TAB PO SCH (09:54)
[2019-11-04 12:20] LABS: Glucose,Whole Blood 167 mg/dL (75-99)
--- NOTE | 2019-11-04 15:26 | P.PN ---
Subjective Progress Note Date: 11/11/19 This patient with history of ischemic heart disease and also cellulitis and ulcers in the foot, was admitted to the hospital with nausea, abdominal discomfort and also some chest discomfort. Patient has been having intermittent chest and also abdominal discomfort with nausea. Her troponins have been nor mal. EKG showed nonspecific ST-T abnormalities. The etiology of her symptomatology not clear. She is being treated with antibiotics for cellulitis. I'm going to ask J consult for evaluation of his nausea and abdominal pain. If that work is negative, we'll may consider further cardiac evaluation. Meanwhile we'll treat him to telemetry for the anti-angina medications. Objective - Vital Signs Vital signs: Vital Signs Temp 97.9 F 11/04/19 08:00 Pulse 66 11/04/19 12:00 Resp 19 11/04/19 12:00 BP 158/72 11/04/19 12:00 Pulse Ox 99 11/04/19 12:00 Intake & Output 11/03/19 11/04/19 11/04/19 18:59 06:59 18:59 Intake Total 200 74.724 283.62 Output Total 1300 Balance 200 -1225.276 283.62 Weight 118.1 kg Intake: Intake, IV Titration 200 74.724 103.62 Amount Heparin Sod,Pork in 0.45% 74.724 103.62 NaCl 25,000 unit In 0.45 % NaCl 1 250ml.bag @ 8 UNITS/KG/HR 9.58 mls/hr IV .Q24H ANDREW Rx#: [id number] Sodium Chloride 0.9% 1, 200 000 ml @ 50 mls/hr IV . Q20H ANDREW Rx#:[id number] Oral 180 Output: Urine 1300 Other: Voiding Method Toilet # Voids 0 # Bowel Movements 0 - Exam GENERAL EXAM: Patient is alert and oriented and doesn't appear to be in any acute distress HEENT: Normocephalic. Normal reaction of pupils, equal size, normal range of extraocular motion. No erythema or exudates in the throat. NECK: No masses, no nuchal rigidity. CHEST: No chest wall deformity. LUNGS: Equal air entry with no crackles or wheeze. HEART: S1 and S2 normal with no audible mumurs or gallops. Regular rhythm, femorals equal on both sides.. ABDOMEN: No hepatosplenomegaly, normal bowel sounds, no guarding or rigidity. SKIN: No rashes CENTRAL NERVOUS SYSTEM: No focal deficits. EXTREMITIES: Also on the right foot - Labs CBC & Chem 7: 11/04/19 05:22 11/03/19 06:21 Labs: Abnormal Lab Results - Last 24 Hours (Table) 11/03/19 11/03/19 11/03/19 Range/Units 16:46 20:08 23:07 WBC 13.8 H (3.8-10.6) k/uL Hgb 9.3 L (11.4-16.0) gm/dL Hct 32.6 L (34.0-46.0) % MCV 72.5 L (80.0-100.0) fL MCH 20.7 L (25.0-35.0) pg MCHC 28.6 L (31.0-37.0) g/dL RDW 17.5 H (11.5-15.5) % Neutrophils # 12.0 H (1.3-7.7) k/uL ESR (0-20) mm/hr POC Glucose (mg/dL) 218 H 244 H (75-99) mg/dL C-Reactive Protein (<10.0) mg/L 11/04/19 11/04/19 11/04/19 Range/Units 05:22 05:22 06:28 WBC 14.1 H (3.8-10.6) k/uL Hgb 9.6 L (11.4-16.0) gm/dL Hct 31.8 L (34.0-46.0) % MCV 72.0 L (80.0-100.0) fL MCH 21.7 L (25.0-35.0) pg MCHC 30.2 L (31.0-37.0) g/dL RDW 17.6 H (11.5-15.5) % Neutrophils # 11.5 H (1.3-7.7) k/uL ESR 58 H (0-20) mm/hr POC Glucose (mg/dL) 221 H (75-99) mg/dL C-Reactive Protein 51.7 H (<10.0) mg/L 11/04/19 Range/Units 12:18 WBC (3.8-10.6) k/uL Hgb (11.4-16.0) gm/dL Hct (34.0-46.0) % MCV (80.0-100.0) fL MCH (25.0-35.0) pg MCHC (31.0-37.0) g/dL RDW (11.5-15.5) % Neutrophils # (1.3-7.7) k/uL ESR (0-20) mm/hr POC Glucose (mg/dL) 167 H (75-99) mg/dL C-Reactive Protein (<10.0) mg/L Assessment and Plan (1) Cellulitis of both feet Current Visit: Yes Status: Acute Code(s): L03.115 - CELLULITIS OF RIGHT LOWER LIMB; L03.116 - CELLULITIS OF LEFT LOWER LIMB SNOMED Code(s): 558037200 (2) Diabetes mellitus with foot ulcer Current Visit: Yes Status: Acute Code(s): E11.621 - TYPE 2 DIABETES MELLITUS WITH FOOT ULCER; L97.509 - NON-PRESSURE CHRONIC ULCER OTH PRT UNSP FOOT W UNSP SEVERITY SNOMED Code(s): 23285041 (3) Abdominal pain Current Visit: No Status: Acute Code(s): R10.9 - UNSPECIFIED ABDOMINAL PAIN SNOMED Code(s): 92736866 (4) CAD (coronary artery disease) Current Visit: No Status: Acute Code(s): I25.10 - ATHSCL HEART DISEASE OF [place] CORONARY ARTERY W/O ANG PCTRS SNOMED Code(s): 85318117 (5) Chest pain Current Visit: No Status: Acute Code(s): R07.9 - CHEST PAIN, UNSPECIFIED SNOMED Code(s): 05159772 Plan: Still having intermittent abdominal pain, nausea and also some chest pain. Troponins have been negative. GI consult is being obtained. Continue current antibiotic therapy. Further recommended lipid about critical course
[2019-11-04 16:35] LABS: Glucose,Whole Blood 154 mg/dL (75-99)
[2019-11-04 20:33] LABS: Glucose,Whole Blood 166 mg/dL (75-99)
[2019-11-04] MEDS: MELATONIN 5 MG TABLET PO SCH (20:44)
[2019-11-04] MEDS: ATORVASTATIN 10 MG TAB PO SCH (20:44)
[2019-11-04] MEDS: MONTELUKAST 10 MG TAB PO SCH (20:45)
[2019-11-04] MEDS: HEPARIN SOD,PORK IN 0.45% NACL 25,000 UNIT in 0.45% NACL 1 250ML.BAG IV SCH (21:10)
--- NOTE | 2019-11-04 22:37 | PN ---
PROGRESS NOTE 74-year-old white female who had severe heartburn and GERD last night. Took 4 nitros. She was seen by Cardiology. Troponins have been normal. Nonspecific ST changes. She has a history of 5 stents. She is on IV antibiotics for cellulitis abscess of the feet. Wastewater Superintendent has seen her and recommends GI recommendations, which we will do. Abdomen with increased bowel sounds. No guarding. Psych fair mood and affect. Lungs are clear. Heart S1, S2. Neck is supple. Neurologic alert orient x3. White count 14 1, hemoglobin 9.6. Sodium 136, potassium 4.1, BUN is 15, creatinine 0.67. ASSESSMENT: 1. Cellulitis of both feet. 2. Diabetes mellitus. 3. Foot ulcer. 4. Abdominal pain. 5. Possible severe gastroesophageal reflux disease. 6. Coronary artery disease. 7. Atypical chest pain. His troponins have been negative. GI consult is obtained. Further recommendations from Cardiology and GI. MMPERIL / JIMENA: [id number] /
--- NOTE | 2019-11-04 23:10 | PN ---
PROGRESS NOTE DATE OF SERVICE: 11/04/2019 REASON FOR FOLLOWUP: Bilateral diabetic foot ulcers and cellulitis. INTERVAL HISTORY: Patient is currently afebrile, has been breathing comfortably. Still complaining of nausea and a question of some vomiting and epigastric discomfort. No chest pain, shortness of breath or cough. Pain to the bilateral foot wound area. PHYSICAL EXAMINATION: Blood pressure 151/75, pulse of 83, temperature 98.3. She is 92% on room air. General description is an elderly female up in the bed in no distress. Respiratory system: Unlabored breathing, clear to auscultation anteriorly. Heart S1, S2. Regular rate and rhythm. Abdomen soft, no tenderness. LABS: White count 14.1. Wound culture so far negative. DIAGNOSTIC IMPRESSION AND PLAN: Patient admitted to hospital with bilateral diabetic foot ulcer with secondary cellulitis. X-rays were negative for any osteomyelitis. Wound cultures currently pending. Continue with Unasyn. Local wound care with Aquacel Silver dressing and monitor clinical course closely. MMODL / IJN: [id number] /
[2019-11-05] MEDS: SODIUM CHLORIDE 0.9% 1,000 ML IV SCH ×2 (05:14→23:01)
[2019-11-05 05:54] LABS: Glucose,Whole Blood 90 mg/dL (75-99)
[2019-11-05] MEDS: AMPICILLIN-SULBACTAM 3 GM in SODIUM CHLORIDE 0.9% 100 ML IVPB SCH ×4 (05:59→23:01)
[2019-11-05] MEDS: NITROGLYCERIN OINT 1 INCH/GM PACKET TOPICAL SCH ×4 (05:59→23:00)
[2019-11-05] MEDS: INSULIN ASPART (NovoLOG) 100 UNIT/ML VIAL SQ SCH ×4 (06:59→21:31)
[2019-11-05] MEDS: SYMBICORT 160-4.5 MCG INHALER INHALATION SCH ×2 (08:18→19:12)
[2019-11-05] MEDS: IPRATROPIUM-ALBUTEROL 3 ML NEB INHALATION SCH ×4 (08:18→19:11)
[2019-11-05] MEDS ORDERED: (Dulaglutide [Trulicity] 1.5 MG) SQ SCH (09:00)
[2019-11-05] MEDS: PANTOPRAZOLE 40 MG/10 ML VIAL IVP SCH ×2 (09:19→21:33)
[2019-11-05] MEDS: INSULN ASP PRT/INSULIN ASPART 100 UNIT/ML 10 ML VIAL SQ SCH ×2 (09:20→21:31)
[2019-11-05] MEDS: ONDANSETRON 4 MG/2 ML VIAL IVP PRN (09:20)
[2019-11-05] MEDS: HYDROcodone/APAP 7.5-325MG 1 EACH TAB PO PRN ×2 (09:20→17:27)
[2019-11-05] MEDS: metFORMIN 500 MG TAB PO SCH ×2 (09:21→21:32)
[2019-11-05] MEDS: ASPIRIN 81 MG PO SCH (09:21)
[2019-11-05] MEDS: ISOSORBIDE MONONITRATE ER 60 MG TAB.ER.24H PO SCH (09:21)
[2019-11-05] MEDS: CHOLECALCIFEROL 1,000 UNIT TAB PO SCH (09:21)
[2019-11-05] MEDS: CLOPIDOGREL 75 MG TAB PO SCH (09:21)
[2019-11-05] MEDS: LISINOPRIL 20 MG TAB PO SCH (09:22)
[2019-11-05] MEDS: DICYCLOMINE 10 MG CAP PO SCH (09:22)
[2019-11-05] MEDS: METOPROLOL TARTRATE 50 MG TAB PO SCH ×2 (09:22→21:32)
[2019-11-05] MEDS: SUCRALFATE 1 GM TAB PO SCH ×4 (09:22→21:33)
[2019-11-05] MEDS: RANOLAZINE 500 MG TAB.ER.12H PO SCH ×2 (09:22→21:32)
[2019-11-05] MEDS: MAGNESIUM OXIDE 400 MG TAB PO SCH (09:22)
[2019-11-05] MEDS: rOPINIRole HCL 4 MG TABLET PO SCH ×3 (09:22→21:33)
[2019-11-05] MEDS: amLODIPine 10 MG TAB PO SCH (09:22)
[2019-11-05] MEDS: FUROSEMIDE 40 MG TAB PO SCH ×2 (09:22→21:33)
[2019-11-05] MEDS: HEPARIN SOD,PORK IN 0.45% NACL 25,000 UNIT in 0.45% NACL 1 250ML.BAG IV SCH (09:25)
[2019-11-05 11:27] LABS: Glucose,Whole Blood 135 mg/dL (75-99)
[2019-11-05] MEDS: METOCLOPRAMIDE 10 MG TAB PO PRN ×2 (12:04→17:27)
--- NOTE | 2019-11-05 12:44 | P.PN ---
Subjective Progress Note Date: 11/05/19 This patient with history of ischemic heart disease and also cellulitis and ulcers in the foot, was admitted to the hospital with nausea, abdominal discomfort and also some chest discomfort. Patient has been having intermittent chest and also abdominal discomfort with nausea. Her troponins have been nor mal. EKG showed nonspecific ST-T abnormalities. The etiology of her symptomatology not clear. She is being treated with antibiotics for cellulitis. I'm going to ask J consult for evaluation of his nausea and abdominal pain. If that work is negative, we'll may consider further cardiac evaluation. Meanwhile we'll treat him to telemetry for the anti-angina medications. 11/04: Patient states that she does not feel too good right now. She is still experiencing abdominal and chest pain after eating. There is a GI consult in place. She has been afebrile, heart rate 89, blood pressure 176/74, pulse ox 90% on room air. Echocardiogram reveals EF of 55-60% with severe concentric left ventricular hypertrophy. Physical examination: GENERAL EXAM: Patient is alert and oriented and doesn't appear to be in any acute distress HEENT: Normocephalic. Normal reaction of pupils, equal size, normal range of extraocular motion. No erythema or exudates in the throat. NECK: No masses, no nuchal rigidity. CHEST: No chest wall deformity. LUNGS: Equal air entry with no crackles or wheeze. HEART: S1 and S2 normal with no audible mumurs or gallops. Regular rhythm, femorals equal on both sides.. ABDOMEN: No hepatosplenomegaly, normal bowel sounds, no guarding or rigidity. SKIN: No rashes CENTRAL NERVOUS SYSTEM: No focal deficits. EXTREMITIES: Diabetic foot ulcers Assessment: Atypical chest pain with negative troponins, acute coronary syndrome ruled out History of coronary artery disease Abdominal pain Bilateral diabetic foot wounds and cellulitis Diabetes mellitus Plan: Discontinue heparin drip Obtain GI consult regarding abdominal pain Treat diabetic ulcers Continue current cardiac medications Nurse practitioner note has been reviewed, I agree with documented findings and plan of care. Patient was seen and examined. Objective - Vital Signs Vital signs: Vital Signs Temp 97.9 F 11/05/19 04:00 Pulse 64 11/05/19 04:00 Resp 17 11/05/19 04:00 BP 135/59 11/05/19 04:00 Pulse Ox 91 L 11/05/19 04:00 Intake & Output 11/04/19 11/05/19 11/05/19 18:59 06:59 18:59 Intake Total 643.62 71.935 509.034 Balance 643.62 71.935 509.034 Weight 117.6 kg Intake: Intake, IV Titration 103.62 71.935 249.034 Amount Heparin Sod,Pork in 0.45% 103.62 71.935 249.034 NaCl 25,000 unit In 0.45 % NaCl 1 250ml.bag @ 8 UNITS/KG/HR 9.58 mls/hr IV .Q24H [facility] Rx#: [id number] Oral 540 260 Other: Voiding Method Toilet Toilet # Voids 0 1 # Bowel Movements 0 - Labs CBC & Chem 7: 11/04/19 05:22 11/03/19 06:21 Labs: Abnormal Lab Results - Last 24 Hours (Table) 11/04/19 11/04/19 11/04/19 Range/Units 12:18 16:33 20:32 APTT (22.0-30.0) sec POC Glucose (mg/dL) 167 H 154 H 166 H (75-99) mg/dL 11/05/19 Range/Units 03:37 APTT 43.8 H (22.0-30.0) sec POC Glucose (mg/dL) (75-99) mg/dL Microbiology - Last 24 Hours (Table) 11/02/19 17:24 Gram Stain - Final Foot - Left Wound Culture - Final
[2019-11-05 16:28] LABS: Glucose,Whole Blood 102 mg/dL (75-99)
--- NOTE | 2019-11-05 17:34 | P.CONS ---
History of Present Illness - Reason for Consult Consult date: 11/05/19 Epigastric abdominal pain Requesting physician: Medardo Grande - Chief Complaint Lower extremity redness and bilateral ulcers - History of Present Illness 74-year-old female with multiple medical comorbidities including COPD, diabetes mellitus, hyperlipidemia, hypertension, coronary artery disease, osteoarthritis who was sent into the hospital for evaluation of lower extremity erythema. Currently she is being treated for bilateral cellulitis in association with bilateral plantar foot ulcers. Patient has complained of chest pain on her admission. She reports chest pain which she states has been similar when she is had myocardial infarctions in the past as well as with her reflux. The patient was seen by the cardiology service requested gastroenterology see the patient. She has a long-standing history of reflux disease and is on therapy in the outpatient setting with Carafate and Prilosec on questioning the patient does not take her Prilosec prior to meals. She denies any dysphagia or odynophagia but does report nausea and occasional regurgitation. She reports use of Tums at home for breakthrough reflux. The patient was given nitroglycerin for chest pain with no improvement of her symptoms. She has had endoscopic evaluation in the past with upper endoscopy for evaluation of reflux on 10/30/2016 significant for gastritis and esophagitis and upper endoscopy on 02/15/2018 significant for esophagitis, gastritis and a hiatal hernia. Last colonoscopy was in 05/24/2018 and significant for hemorrhoids and a rectal polyp. Laboratory evaluation significant for WBC 14.1, hemoglobin 9.6 and platelet count of 417,000. Review of Systems REVIEW OF SYSTEMS: CONSTITUTIONAL: Denies any fevers, chills, weight change or fatigue. CARDIOVASCULAR: Denies any palpitations, high or low blood pressure, but did rep ort chest pain unrelieved with nitroglycerin. RESPIRATORY: Denies any shortness of breath, hemoptysis or cough. GENITOURINARY: No dysuria or hematuria. MUSCULOSKELETAL: No weakness reported. SKIN: Denies any jaundice or pallor, does have bilateral lower extremity erythema and plantar ulcers. PSYCHIATRIC: Denies any depression or anxiety. NEUROLOGY: Denies headache, denies any new focal deficits. EARS/NOSE/THROAT: No recent hearing change, congestion, nasal discharge or sore throat. EYES: No pain in eyes, discharge or change in vision. GASTROINTESTINAL: As per HPI. Past Medical History Past Medical History: Asthma, Coronary Artery Disease (CAD), Heart Failure, COPD, Diabetes Mellitus, Hyperlipidemia, Hypertension, Myocardial Infarction ([place]), Osteoarthritis (OA), Pneumonia, Renal Disease, Skin Disorder, Sleep Apnea/CPAP/BIPAP Additional Past Medical History / Comment(s): NIDDM type II, neuropathy bilater al feet, bilateral diabetic great toe ulcers with 2ndary cellulitis, colitis with recent flare, recent r side pneumonia, renal insufficiency, IRA with no device, home oxygen at 2L/NC at HS, RLS, diarrhea. Last Myocardial Infarction Date:: 2017 History of Any Multi-Drug Resistant Organisms: None Reported Past Surgical History: Appendectomy, Breast Surgery, Cholecystectomy, Heart Catheterization, Heart Catheterization With Stent Additional Past Surgical History / Comment(s): PCI with stents, R lung thoracotomy/decortication for empyema, L breast benign bx, colonoscopy Past Anesthesia/Blood Transfusion Reactions: No Reported Reaction Additional Past Anesthesia/Blood Transfusion Reaction / Comm: severe claustrophobia Date of Last Stent Placement:: 11/30/2017 Past Psychological History: No Psychological Hx Reported Additional Psychological History / Comment(s): Severe claustrophobia. Pt resides alone in her home. She has 14 stair steps to get up to her bathroom/be droom. She is established with [facility]- a nurse for wound care and PT. Smoking Status: Former smoker Past Alcohol Use History: None Reported Additional Past Alcohol Use History / Comment(s): STARTED SMOKING AGE 18 (1963) AND QUIT 1994. SMOKED 1 PPD. STATES SHE IS AN ALCOHOLIC AND QUIT DRINKING 29 yrs ago Past Drug Use History: None Reported - Past Family History Brother(s) Family Medical History: Cancer Father Family Medical History: Chest Pain / Angina Additional Family Medical History / Comment(s): Father of a KS at the age of 77yrs. Mother Family Medical History: Chest Pain / Angina Additional Family Medical History / Comment(s): Mother of a KS at the age of 74yrs. Medications and Allergies Home Medications Medication Instructions Recorded Confirmed Type Cholecalciferol [Vitamin D3 (25 1,000 unit PO DAILY 02/26/15 11/02/19 History Mcg = 1000 Iu)] Clopidogrel [Plavix] 75 mg PO DAILY 09/05/15 11/02/19 History Montelukast Sodium [Singulair] 10 mg PO HS #30 tab 10/25/15 11/02/19 Rx Nitroglycerin Sl Tabs [Nitrostat] 0.4 mg SUBLINGUAL Q5M PRN #0 tab 09/24/16 11/02/19 Rx Metoprolol Tartrate [Lopressor] 50 mg PO BID 02/09/18 11/02/19 History [place]-3 Fatty Acids [[place]-3] 2,000 mg PO DAILY 09/29/18 11/02/19 History Isosorbide Mononitrate ER [Imdur] 60 mg PO DAILY #30 tab.er.24h 11/17/18 11/02/19 Rx Dicyclomine [Bentyl] 10 mg PO DAILY 04/16/19 11/02/19 History Aspirin 81 mg PO DAILY chew 04/17/19 11/02/19 Rx Acetaminophen Tab [Tylenol] 500 mg PO Q6HR PRN tab 06/23/19 11/02/19 Rx Fluticasone/Umeclidin/Vilanter 1 puff INHALATION RT-DAILY 07/07/19 11/02/19 History [Trelegy Ellipta 100-62.5-25] Omeprazole 20 mg PO HS 07/07/19 11/02/19 History Dulaglutide [Trulicity] 1.5 mg SQ KISER 08/15/19 11/02/19 History Furosemide [Lasix] 40 mg PO BID 08/15/19 11/02/19 History Insulin Aspart Protam & Aspart 30 unit SQ BID 08/15/19 11/02/19 History [NovoLOG MIX 70-30 Flexpen] Metoclopramide [Reglan] 10 mg PO QID PRN 08/15/19 11/02/19 History Sucralfate [Carafate] 1 gm PO QID 08/15/19 11/02/19 History metFORMIN HCL 1,000 mg PO BID 08/15/19 11/02/19 History Lisinopril 40 mg PO DAILY 08/30/19 11/02/19 History Simvastatin [Zocor] 20 mg PO HS 08/30/19 11/02/19 History amLODIPine [Norvasc] 10 mg PO DAILY 08/30/19 11/02/19 History HYDROcodone/APAP 7.5-325MG [[place] 1 tab PO Q6H PRN #12 tab 09/04/19 11/02/19 Rx 7.5-325] Magnesium Oxide 400 mg PO DAILY 11/02/19 11/02/19 History Potassium Chloride ER [K-Dur 20] 20 meq PO BID 11/02/19 11/02/19 History rOPINIRole HCL [Requip] 4 mg PO TID 11/02/19 11/02/19 History Allergies Allergy/AdvReac Type Severity Reaction Status Date / Time amoxicillin [From Augmentin] Allergy Rash/Hives Verified 11/02/19 16:19 clavulanic acid Allergy Rash/Hives Verified 11/02/19 16:19 [From Augmentin] metronidazole [From Flagyl] Allergy Nausea & Verified 11/02/19 16:19 Vomiting adhesive tape AdvReac bruises,"paper Verified 11/02/19 16:19 tape is ok" albuterol AdvReac Rapid Verified 11/02/19 16:19 Heart Rate stress test injection Allergy Anaphylaxis Uncoded 07/07/19 12:07 sun dried tomatoes Allergy lip Uncoded 07/07/19 12:07 swelling Physical Exam Vitals: Vital Signs Temp Pulse Pulse Resp BP Pulse Ox 11/05/19 04:00 97.9 F 64 17 135/59 91 L 11/05/19 00:00 98.4 F 67 19 151/67 94 L 11/04/19 20:00 98.3 F 83 18 151/75 92 L 11/04/19 19:35 90 11/04/19 19:23 88 11/04/19 16:00 90 72 20 135/61 98 11/04/19 15:45 90 99 11/04/19 12:00 66 19 158/72 99 11/04/19 11:21 88 11/04/19 11:11 80 Intake and Output 11/04/19 11/05/19 11/05/19 22:59 06:59 14:59 Intake Total 431.935 509.034 Balance 431.935 509.034 Intake: Intake, IV Titration 71.935 249.034 Amount Heparin Sod,Pork in 0.45% 71.935 249.034 NaCl 25,000 unit In 0.45 % NaCl 1 250ml.bag @ 8 UNITS/KG/HR 9.58 mls/hr IV .Q24H [facility] Rx#: [id number] Oral 360 260 Other: Voiding Method Toilet Toilet # Voids 1 1 Weight 117.6 kg On physical examination, patient appears comfortable in no apparent distress. HEAD: Normocephalic, atraumatic. EYES: No scleral icterus. No conjunctival injection. MOUTH: No lesions, tongue midline. NECK: Trachea midline, no gross abnormalities. CHEST: Decreased air entry in all lung [place]. HEART: S1-S2 appreciated. ABDOMEN: Soft, obese. Bowel sounds are positive. No organomegaly. No guarding or rigidity. EXTREMITIES: No pedal edema. SKIN: Bilateral lower extremity erythema and plantar ulcers with wounds currently dressed. NEUROLOGIC: Alert and oriented x3. No focal deficits. Results CBC & Chem 7: 11/04/19 05:22 11/03/19 06:21 Labs: Abnormal Lab Results - Last 24 Hours (Table) 11/04/19 11/04/19 11/04/19 Range/Units 12:18 16:33 20:32 APTT (22.0-30.0) sec POC Glucose (mg/dL) 167 H 154 H 166 H (75-99) mg/dL 11/05/19 Range/Units 03:37 APTT 43.8 H (22.0-30.0) sec POC Glucose (mg/dL) (75-99) mg/dL Microbiology - Last 24 Hours (Table) 11/02/19 17:24 Gram Stain - Final Foot - Left Wound Culture - Final Assessment and Plan (1) Abdominal pain Narrative/Plan: 74-year-old female with multiple medical comorbidities currently hospitalized with bilateral lower extremity cellulitis and plantar ulcers who is complained of chest pain. Gravity to be noncardiac in nature at this time with cardiology evaluating the patient and her reporting no improvement in symptoms with nitroglycerin. She does have a long-standing history of gastroesophageal reflux disease with endoscopies performed in evaluation of reflux in 2017 and 2018 significant for gastritis, esophagitis and a moderate hiatal hernia. Patient's current reflux regimen includes Carafate and Prilosec which she takes at night. Patient denies any dysphagia or odynophagia. She does report some nausea and occasional regurgitation. She uses Tums at home for breakthrough reflux. Unclear etiology of pain with suspicion for uncontrolled reflux disease. Extensive discussion with patient about GERD lifestyle modifications. However cannot rule out other etiology of symptoms including diabetic gastroparesis, functional bowel disorder, peptic ulcer disease or other etiology. Current Visit: No Status: Acute Code(s): R10.9 - UNSPECIFIED ABDOMINAL PAIN SNOMED Code(s): 14180120 (2) Hiatal hernia Current Visit: Yes Status: Acute Code(s): K44.9 - DIAPHRAGMATIC HERNIA WITHOUT OBSTRUCTION OR GANGRENE SNOMED Code(s): 97388832 (3) GERD (gastroesophageal reflux disease) Current Visit: Yes Status: Acute Code(s): K21.9 - GASTRO-ESOPHAGEAL REFLUX DISEASE WITHOUT ESOPHAGITIS SNOMED Code(s): 316483442 Plan: Supportive care Okay for diet as tolerated Reports from a prior endoscopic evaluations reviewed Continue Carafate 4 times a day Protonix increased to twice daily and patient instructed to take PPI therapy including her home omeprazole prior to eating for optimal results Pepcid daily at bedtime added Continue Bentyl therapy, can consider increasing to 20 mg if patient remains symptomatic Gastric emptying study can be considered in the outpatient setting however the patient would have to be off of any narcotic therapy which she is currently receiving or prokinetic such as Reglan Thank you for allowing us to participate in the care of this patient we will racheal gatica to follow
--- NOTE | 2019-11-05 20:06 | PN ---
PROGRESS NOTE DATE OF SERVICE: 11/05/2019 REASON FOR FOLLOWUP: Bilateral diabetic foot ulcer with cellulitis. INTERVAL HISTORY: Patient is currently afebrile. The patient is breathing comfortably. Still complaining of feeling nauseated and vomiting. Did have MRSA this morning. Abdominal pain has improved. No chest pain, shortness of breath or cough. No pain to bilateral foot wound area. PHYSICAL EXAMINATION: Blood pressure 162/70 with a pulse of 67, temperature 98. She is 93% on 2 L nasal cannula. General description is an elderly female up in the bed in no distress. Respiratory system: Unlabored breathing. Clear to auscultation anteriorly. Heart S1, S2. Regular rate and rhythm. Abdomen soft, no tenderness. Bilateral foot secondary wounds currently dressed up. No obvious drainage on the dressing. LABS: No new labs have been obtained today. The wound culture so far negative. DIAGNOSTIC IMPRESSION AND PLAN: Patient bilateral diabetic foot ulcer with secondary cellulitis. Currently covered with Unasyn. Local care to continue with Aquacel dressing and monitor clinical course closely. Continue supportive care. MMODL / IJN: [id number] /
[2019-11-05 21:01] LABS: Glucose,Whole Blood 135 mg/dL (75-99)
[2019-11-05] MEDS: MONTELUKAST 10 MG TAB PO SCH (21:32)
[2019-11-05] MEDS: MELATONIN 5 MG TABLET PO SCH (21:32)
[2019-11-05] MEDS: FAMOTIDINE 20 MG TAB PO SCH (21:33)
[2019-11-05] MEDS: ATORVASTATIN 10 MG TAB PO SCH (21:33)
[2019-11-06 00:34] LABS: Glucose,Whole Blood 74 mg/dL (75-99)
[2019-11-06 00:52] LABS: Glucose,Whole Blood 107 mg/dL (75-99)
[2019-11-06 05:52] LABS: Glucose,Whole Blood 115 mg/dL (75-99)
[2019-11-06] MEDS: NITROGLYCERIN OINT 1 INCH/GM PACKET TOPICAL SCH ×4 (06:16→23:05)
[2019-11-06] MEDS: AMPICILLIN-SULBACTAM 3 GM in SODIUM CHLORIDE 0.9% 100 ML IVPB SCH ×4 (06:16→23:05)
[2019-11-06] MEDS: INSULIN ASPART (NovoLOG) 100 UNIT/ML VIAL SQ SCH ×4 (06:46→20:47)
--- NOTE | 2019-11-06 07:31 | PN ---
PROGRESS NOTE 74 -year-old white female who has had greatly improved abdominal pain, nausea, vomiting, and GI upset. No chest pain overnight. Cultures are negative for osteomyelitis. Home IV antibiotics are being assessed with antibiotics per culture and sensitivity. Lungs are clear. Cardiovascular S1, S2. GI is minimal tenderness epigastric, distended. Obesity. Psych: Fair mood and affect. ASSESSMENT: 1. Atypical chest pain. 2. Coronary artery disease 5 stents. 3. Stable angina. 4. Suspect gastroesophageal reflux disease versus peptic ulcer disease, irritable bowel syndrome, gastroparesis. 5. Diabetic foot infection, bilateral feet with ulcerations, deep into the dermis on both 1st tarsals. Continue current treatment. Please see further orders. MMODL / IJN: [id number] /
[2019-11-06] MEDS: IPRATROPIUM-ALBUTEROL 3 ML NEB INHALATION SCH ×4 (08:41→20:18)
[2019-11-06] MEDS: SYMBICORT 160-4.5 MCG INHALER INHALATION SCH ×2 (08:41→20:18)
[2019-11-06] MEDS: CLOPIDOGREL 75 MG TAB PO SCH (09:45)
[2019-11-06] MEDS: METOCLOPRAMIDE 10 MG TAB PO PRN ×2 (09:45→16:18)
[2019-11-06] MEDS: ASPIRIN 81 MG PO SCH (09:45)
[2019-11-06] MEDS: CHOLECALCIFEROL 1,000 UNIT TAB PO SCH (09:45)
[2019-11-06] MEDS: ISOSORBIDE MONONITRATE ER 60 MG TAB.ER.24H PO SCH (09:45)
[2019-11-06] MEDS: HYDROcodone/APAP 7.5-325MG 1 EACH TAB PO PRN ×2 (09:45→16:18)
[2019-11-06] MEDS: DICYCLOMINE 10 MG CAP PO SCH (09:45)
[2019-11-06] MEDS: RANOLAZINE 500 MG TAB.ER.12H PO SCH ×2 (09:46→20:46)
[2019-11-06] MEDS: METOPROLOL TARTRATE 50 MG TAB PO SCH ×2 (09:46→20:46)
[2019-11-06] MEDS: SUCRALFATE 1 GM TAB PO SCH ×4 (09:46→20:46)
[2019-11-06] MEDS: LISINOPRIL 20 MG TAB PO SCH (09:46)
[2019-11-06] MEDS: metFORMIN 500 MG TAB PO SCH ×2 (09:46→20:46)
[2019-11-06] MEDS: rOPINIRole HCL 4 MG TABLET PO SCH ×3 (09:47→21:21)
[2019-11-06] MEDS: MAGNESIUM OXIDE 400 MG TAB PO SCH (09:47)
[2019-11-06] MEDS: PANTOPRAZOLE 40 MG/10 ML VIAL IVP SCH ×2 (09:47→20:46)
[2019-11-06] MEDS: amLODIPine 10 MG TAB PO SCH (09:47)
[2019-11-06] MEDS: INSULN ASP PRT/INSULIN ASPART 100 UNIT/ML 10 ML VIAL SQ SCH ×2 (09:47→20:47)
[2019-11-06] MEDS: FUROSEMIDE 40 MG TAB PO SCH ×2 (09:47→20:46)
[2019-11-06] MEDS: MAG HYDROX/AL HYDROX/SIMETH 30 ML CUP PO SCH ×3 (11:36→20:46)
[2019-11-06] MEDS: ONDANSETRON 4 MG/2 ML VIAL IVP PRN (11:36)
[2019-11-06] MEDS ORDERED: LACTATED RINGERS 1,000 ML IV SCH (12:45)
[2019-11-06 13:27] LABS: Glucose,Whole Blood 125 mg/dL (75-99)
--- NOTE | 2019-11-06 14:21 | P.PN ---
Subjective Progress Note Date: 11/06/19 This is 74-year-old female patient with history of ischemic heart disease and cellulitis with ulcers in the foot who was admitted to the hospital with nausea and abdominal discomfort and some vague chest discomfort. Troponins were negative, EKG showed normal sinus rhythm with nonspecific ST-T wave changes. She is currently on antibiotics for the cellulitis. She was seen in consultation by Dr. Mccullough for her atypical chest pain. Troponins were negative. EKG showed a normal sinus rhythm with ST-T wave changes noted in the inferior lateral leads. Patient has had a similar EKG to that in the past. Objective - Vital Signs Vital signs: Vital Signs Temp 98.4 F 11/06/19 12:00 Pulse 68 11/06/19 12:00 Resp 16 11/06/19 12:00 BP 165/71 11/06/19 12:00 Pulse Ox 97 11/06/19 12:00 Intake & Output 11/05/19 11/06/19 11/06/19 18:59 06:59 18:59 Intake Total 589.034 540 120 Output Total 4 2 Balance 589.034 536 118 Weight 117.4 kg Intake: Intake, IV Titration 249.034 Amount Heparin Sod,Pork in 0.45% 249.034 NaCl 25,000 unit In 0.45 % NaCl 1 250ml.bag @ 8 UNITS/KG/HR 9.58 mls/hr IV .Q24H [facility] Rx#: [id number] Oral 340 540 120 Output: Stool 4 2 Other: Voiding Method Toilet Toilet # Voids 0 - Exam GENERAL EXAM: Patient is alert and oriented and doesn't appear to be in any acute distress HEENT: Normocephalic. Normal reaction of pupils, equal size, normal range of extraocular motion. No erythema or exudates in the throat. NECK: No masses, no nuchal rigidity. CHEST: No chest wall deformity. LUNGS: Equal air entry with no crackles or wheeze. HEART: S1 and S2 normal with no audible mumurs or gallops. Regular rhythm, femorals equal on both sides.. ABDOMEN: No hepatosplenomegaly, normal bowel sounds, no guarding or rigidity. SKIN: No rashes CENTRAL NERVOUS SYSTEM: No focal deficits. EXTREMITIES: Diabetic foot ulcers - Labs CBC & Chem 7: 11/04/19 05:22 11/03/19 06:21 Labs: Abnormal Lab Results - Last 24 Hours (Table) 11/05/19 11/05/19 11/06/19 Range/Units 16:27 21:00 00:32 POC Glucose (mg/dL) 102 H 135 H 74 L (75-99) mg/dL 11/06/19 11/06/19 11/06/19 Range/Units 00:50 05:51 13:25 POC Glucose (mg/dL) 107 H 115 H 125 H (75-99) mg/dL Assessment and Plan Plan: Assessment and plan: #1 Atypical chest pain with negative troponins, acute coronary syndrome ruled out #2 History of coronary artery disease #3 Abdominal pain #4 Bilateral diabetic foot wounds and cellulitis #5 Diabetes mellitus #6 hyperlipidemia Plan From cardiology's perspective, we will follow this patient along with you now on an as-needed basis only, her echo revealed a normal left ventricular systolic function. On discharge we recommend an appointment in the office. DNP note has been reviewed, I agree with a documented findings and plan of care. Patient was seen and examined.
[2019-11-06] MEDS: ACETAMINOPHEN TAB 500 MG TAB PO PRN (15:09)
[2019-11-06 16:28] LABS: Glucose,Whole Blood 126 mg/dL (75-99)
--- NOTE | 2019-11-06 16:38 | PN ---
PROGRESS NOTE DATE OF DICTATION: 11/06/2019 This patient is a 74-year-old pleasant white female admitted to the hospital with epigastric pain associated with nausea and vomiting for the last 3-4 days' duration. Her symptoms are progressively getting worse. She is on Protonix 40 mg twice daily, Carafate and antiemetics, and continues to remain symptomatic. She continues to complain of severe heartburn. Her last upper endoscopy in October of 2016 showed evidence of gastritis and esophagitis. PHYSICAL EXAMINATION: Appears comfortable. No apparent distress. VITAL SIGNS: Stable. Blood pressure 112/82, pulse rate 86 and afebrile. HEENT EXAMINATION: Unremarkable. Conjunctivae pink. Sclerae anicteric. Oral cavity no lesions. NECK: No JVD or lymph node enlargement. CHEST: Clear to auscultation. HEART: Regular rate and rhythm. ABDOMEN: Soft. Bowel sounds are positive. Mild tenderness in the epigastric area. EXTREMITIES: No pedal edema. SKIN: No rashes. NEUROLOGIC: Alert and oriented x3. No focal deficits. LABS: No labs are available from today. IMPRESSION: 1. Epigastric pain associated with nausea, vomiting, and lower sternal chest pain for the last 3-4 days' duration. The patient has longstanding history of GERD and has been on Prilosec at home. Cardiac workup so far has been negative. 2. 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 Rule out occult GI blood loss. 3. History of hypertension and hypercholesteremia. 4. History of diabetes mellitus. RECOMMENDATIONS: 1. Hold aspirin and Plavix. 2. Will proceed with an upper endoscopy tomorrow. 3. Continue with Protonix 40 mg twice daily as well as Carafate as needed. 4. We will follow with you closely. Thank you for this consultation. MMODL / IJN: [id number] /
--- NOTE | 2019-11-06 18:29 | PN ---
PROGRESS NOTE DATE OF SERVICE: 11/06/2019 REASON FOR FOLLOWUP: Bilateral diabetic foot ulcers with cellulitis. INTERVAL HISTORY: Patient is currently afebrile. The patient has been complaining of feeling nauseated but no vomiting. No chest pain. No shortness of breath or cough. No abdominal pain or pain to the bilateral foot wound areas. PHYSICAL EXAMINATION: Blood pressure is 163/71 with a pulse of 66, temperature 97.5. She is 93% on room air. General description is an elderly female up in the chair in no distress. RESPIRATORY SYSTEM: Unlabored breathing. Clear to auscultation anteriorly. HEART: S1, S2. Regular rate and rhythm. ABDOMEN: Soft. No tenderness. Bilateral foot wounds are currently dressed up. Overall swelling and redness have improved. LABS: No new labs have been obtained today. DIAGNOSTIC IMPRESSION AND PLAN: Patient with bilateral diabetic foot ulcers with cellulitis. Patient is currently covered with Unasyn. Culture has been negative. X-rays were negative for any bony changes. Currently on Unasyn; to continue and finish therapy with oral antibiotics and monitor her clinical course closely. MMODL / IJN: [id number] /
[2019-11-06 20:30] LABS: Glucose,Whole Blood 159 mg/dL (75-99)
[2019-11-06] MEDS: SODIUM CHLORIDE 0.9% 1,000 ML IV SCH (20:35)
[2019-11-06] MEDS: ATORVASTATIN 10 MG TAB PO SCH (20:46)
[2019-11-06] MEDS: FAMOTIDINE 20 MG TAB PO SCH (20:46)
[2019-11-06] MEDS: MONTELUKAST 10 MG TAB PO SCH (20:46)
[2019-11-06] MEDS: MELATONIN 5 MG TABLET PO SCH (20:46)
[2019-11-07 00:59] LABS: Glucose,Whole Blood 68 mg/dL (75-99)
[2019-11-07 01:15] LABS: Glucose,Whole Blood 77 mg/dL (75-99)
[2019-11-07 02:24] LABS: Glucose,Whole Blood 109 mg/dL (75-99)
[2019-11-07] MEDS: AMPICILLIN-SULBACTAM 3 GM in SODIUM CHLORIDE 0.9% 100 ML IVPB SCH ×4 (05:35→23:08)
[2019-11-07] MEDS: NITROGLYCERIN OINT 1 INCH/GM PACKET TOPICAL SCH ×4 (05:35→23:08)
[2019-11-07 06:05] LABS: Glucose,Whole Blood 97 mg/dL (75-99)
[2019-11-07] MEDS: INSULIN ASPART (NovoLOG) 100 UNIT/ML VIAL SQ SCH ×4 (06:07→20:21)
[2019-11-07] MEDS: IPRATROPIUM-ALBUTEROL 3 ML NEB INHALATION SCH ×4 (07:51→18:47)
[2019-11-07] MEDS: SYMBICORT 160-4.5 MCG INHALER INHALATION SCH ×2 (07:51→18:47)
[2019-11-07] MEDS: amLODIPine 10 MG TAB PO SCH (08:07)
[2019-11-07] MEDS: metFORMIN 500 MG TAB PO SCH ×2 (08:07→20:28)
[2019-11-07] MEDS: RANOLAZINE 500 MG TAB.ER.12H PO SCH ×2 (08:07→20:27)
[2019-11-07] MEDS: LISINOPRIL 20 MG TAB PO SCH (08:07)
[2019-11-07] MEDS: MAG HYDROX/AL HYDROX/SIMETH 30 ML CUP PO SCH ×4 (08:07→20:28)
[2019-11-07] MEDS: FUROSEMIDE 40 MG TAB PO SCH ×2 (08:07→20:28)
[2019-11-07] MEDS: PANTOPRAZOLE 40 MG/10 ML VIAL IVP SCH ×2 (08:07→20:28)
[2019-11-07] MEDS: MAGNESIUM OXIDE 400 MG TAB PO SCH (08:08)
[2019-11-07] MEDS: CHOLECALCIFEROL 1,000 UNIT TAB PO SCH (08:08)
[2019-11-07] MEDS: ISOSORBIDE MONONITRATE ER 60 MG TAB.ER.24H PO SCH (08:08)
[2019-11-07] MEDS: ASPIRIN 81 MG PO SCH (08:08)
[2019-11-07] MEDS: DICYCLOMINE 10 MG CAP PO SCH (08:08)
[2019-11-07] MEDS: CLOPIDOGREL 75 MG TAB PO SCH (08:08)
[2019-11-07] MEDS: HYDROcodone/APAP 7.5-325MG 1 EACH TAB PO PRN ×2 (08:08→17:49)
[2019-11-07] MEDS: SUCRALFATE 1 GM TAB PO SCH ×4 (08:08→20:27)
[2019-11-07] MEDS: METOCLOPRAMIDE 10 MG TAB PO PRN ×2 (08:08→17:49)
[2019-11-07] MEDS: METOPROLOL TARTRATE 50 MG TAB PO SCH ×2 (08:08→20:28)
[2019-11-07] MEDS: INSULN ASP PRT/INSULIN ASPART 100 UNIT/ML 10 ML VIAL SQ SCH ×2 (08:10→20:21)
[2019-11-07] MEDS: rOPINIRole HCL 4 MG TABLET PO SCH ×3 (08:12→20:27)
--- NOTE | 2019-11-07 08:50 | PN ---
PROGRESS NOTE DATE OF SERVICE: 11/06/2019 74-year-old white female. She continues to have bilateral feet cellulitis been seeing Dr. Perez. She will have an EGD tomorrow for progressive nausea, epigastric pain, affecting her breathing at night, not responding to PPIs and Carafate and Reglan. PHYSICAL EXAMINATION: Vital signs are reviewed. Cardiovascular S1-S2. Psych: Fair mood and affect. Neurologic: Alert and oriented x3. ASSESSMENT: 1. Bilateral feet cellulitis, open wounds, diabetic wound infections. 2. Insulin-dependent diabetes mellitus. 3. Gastroesophageal reflux disease. 4. Atypical chest pain, coronary artery disease with stents. Cardiology wants GI workup, which is going to be EGD tomorrow. 5. See further orders. MMODL / IJN: [id number] /
[2019-11-07 11:48] LABS: Glucose,Whole Blood 62 mg/dL (75-99)
[2019-11-07] MEDS ORDERED: DEXTROSE 5%-0.9% NACL 1,000 ML IV SCH (12:00)
[2019-11-07 12:07] LABS: Glucose,Whole Blood 75 mg/dL (75-99)
--- NOTE | 2019-11-07 12:12 | CDI ---
Documentation Clarification Form Date: 11/07/2019 11:56:41 AM From: Jennifer BalLermaDIAMOND stubbs, CCDS Admit Date: 11/02/2019 02:23:00 PM Patient Name: Lorelei Brand Visit Number: [id number] Discharge Date: ATTENTION: The Clinical Documentation Specialists (CDI) and [facility] Coding Staff appreciate your assistance in clarifying documentation. Please respond to the clarification below the line at the bottom and electronically sign. The CDI & [facility] Coding staff will review the response and follow-up if needed. Please note: Queries are made part of the Legal Health Record. If you have any questions, please contact the author of this message via ITS. Dr. Nader Altman: Heart Failure without further specificity is documented in the Cardiology Consult, the Gastrointestinal Consult & the Infectious Disease Consult. History/Risk Factors: CAD w/coronary stents, DM with neuropathy, Hyperlipidemia, COPD, Sleep apnea, Pneumonia, Home O2 dependent. Former smoker. Clinical Indicators: Admit on 11/01 from home with ulcerations bilateral feet & increased redness on big toes up to mid foot. Wheezing, unlabored breathing. Swelling & erythema surrounding big toes, no pedal edema. Diagnosed with severe cellulitis, diabetic foot wound infections bilateral feet and unstable angina with abnormal EKG. VS on admission: T 98.9, P 82, R 16, BP 145/63, PO 92 RA LAB 11/01: WBC 15.2^, Hgb 9.4*, Neut 10.8^, Na 134*, BUN 23^, Gluc 162^. BNP: not done Echocardiogram Results 11/02: Technically difficult study. Severe concentric LVH. Systolic wnl w/EF 55-60%, Chest X Ray: No chest CR this admission. EKG 11/01: R 89 sinus rhythm w/1st deg AV block. 11/02: R 84 sinus rhythm w/1st deg AV block w/PVCs. 11/02: R 95 nsr w/sinus arrhythmia. Treatment: INH Albuterol/Ipratropium duoneb, IV Protonix, IV [place], IV Ampicilin, po ASA, po Plavix, po Lasix 40 mg BID (home dose) on 11/02. In your professional opinion, can you please clarify the acuity and type of CHF if known? Heart Failure is ruled out Systolic Heart Failure: o Chronic o Acute on Chronic Diastolic Heart Failure: o Chronic o Acute on Chronic Systolic & Diastolic Heart Failure: o Chronic o Acute on Chronic Heart Failure Unable to Determine Other, please specify (Last Revision: August 2017) MTDD
[2019-11-07 12:18] LABS: Glucose,Whole Blood 68 mg/dL (75-99)
--- NOTE | 2019-11-07 12:23 | CDI ---
Documentation Clarification Form Date: 11/07/2019 12:13:56 PM From: Jennifer Lerma CCS, CCDS Admit Date: 11/02/2019 02:23:00 PM Patient Name: Lorelei Brand Visit Number: [id number] Discharge Date: ATTENTION: The Clinical Documentation Specialists (CDI) and [facility] Coding Staff appreciate your assistance in clarifying documentation. Please respond to the clarification below the line at the bottom and electronically sign. The CDI & [facility] Coding staff will review the response and follow-up if needed. Please note: Queries are made part of the Legal Health Record. If you have any questions, please contact the author of this message via ITS. Dr. Medardo Grande: Renal insufficiency is documented in the Cardiology, Infectious Disease & Gastrointestinal Consults on 11/01 & 11/02 without further specificity. History/Risk Factors: CAD with previous [place] & coronary stents, CHF nos, IDDM II,Neuropathy bilateral feet, Hyperlipidemia, Hypertension, Osteoarthritis, Pneumonia, "Renal Disease", Sleep apnea on home O2. Patients Historical BUN/CR/GFR: GFR 09/24/2016: >60, GFR 11/03/2019: 88. Clinical Indicators: Patient presented with bilateral foot & toe diabetic ulcers. Current BUN/Creatinine & GFR: 23^/Cr 0.87/67 - 88 Treatment: INH Duoneb, IV Protonix, IV Ampicillin, Insulin sq 30 units BID po Metformin 1,000 mg BID, IV Dextrose 1000 mls @ 50/hr Nephrology is not consulted. In order to capture the severity of condition, please clarify the stage of the CKD, if known: CKD is ruled out CKD Stage 1 (GFR > 90) CKD Stage 2 (GFR 60-89) Other, please specify Unable to determine (Last Revision: June 2019) MTDD
[2019-11-07 12:33] LABS: Glucose,Whole Blood 70 mg/dL (75-99)
[2019-11-07 12:50] LABS: Glucose,Whole Blood 68 mg/dL (75-99)
[2019-11-07] MEDS ORDERED: LIDOCAINE 1% INJ 10MG/ML (20 ML MDV) ONE (13:05)
[2019-11-07] MEDS ORDERED: PROPOFOL 10 MG/ML 20 ML VIAL IV ONE (13:05)
[2019-11-07] MEDS ORDERED: IV FLUID CONTINUATION 1,000 ML IV ONE ×2 (13:09)
[2019-11-07 13:16] LABS: Glucose,Whole Blood 68 mg/dL (75-99)
--- NOTE | 2019-11-07 13:29 | P.PCN ---
Date of Procedure: 11/07/19 Procedure(s) Performed: BRIEF HISTORY: Patient is a 74-year-old, pleasant, female via hospital with acute onset of severe epigastric pain associated with nausea vomiting for the last 3 days' duration. She is hence scheduled for an upper endoscopy to evaluate further.. PROCEDURE PERFORMED: Esophagogastroduodenoscopy. PREOPERATIVE DIAGNOSIS: Epigastric pain/nausea vomiting of 3 days' duration. IV sedation per anesthesia. PROCEDURE: After informed consent was obtained, the patient was brought into the endoscopy unit. IV sedation was administered by Anesthesia under continuous monitoring. Initially the Olympus GIF-140 video endoscope was inserted into the mouth. Esophagus intubated without any difficulty. It was gradually advanced into the stomach and duodenum and carefully examined. The bulb and the second part of the duodenum appeared normal. The scope at this time was withdrawn to the stomach, adequately insufflated with air, and upon careful examination, mucosa of the antrum had mild diffuse gastritis. Biopsies were not done because patient is on Plavix. The, body, cardia and the fundus appeared normal. The scope was then withdrawn into the esophagus. The GE junction was located at 39 cm from the incisors. The esophagus appeared normal. There were no erosions or ulcerations seen and the patient tolerated the procedure well. IMPRESSION: 1. Mild diffuse antral gastritis. 2. No evidence of esophagitis or peptic ulcer. RECOMMENDATIONS: The findings of this examination were discussed with the patient. She'll continue with Protonix 40 mg daily and antiemetics for now. We'll advance diet as tolerated..
[2019-11-07 16:43] LABS: Glucose,Whole Blood 114 mg/dL (75-99)
[2019-11-07 19:58] LABS: Glucose,Whole Blood 128 mg/dL (75-99)
[2019-11-07] MEDS: MONTELUKAST 10 MG TAB PO SCH (20:27)
[2019-11-07] MEDS: FAMOTIDINE 20 MG TAB PO SCH (20:28)
[2019-11-07] MEDS: MELATONIN 5 MG TABLET PO SCH (20:28)
[2019-11-07] MEDS: ATORVASTATIN 10 MG TAB PO SCH (20:28)
--- NOTE | 2019-11-07 23:40 | PN ---
PROGRESS NOTE DATE OF SERVICE: 11/07/2019. REASON FOR FOLLOWUP: Bilateral diabetic foot ulcer and cellulitis. INTERVAL HISTORY: The patient is currently afebrile. The patient is breathing comfortably. The nausea and vomiting has improved. She was able to tolerate her lunch. Denies any pain to the lower extremity. PHYSICAL EXAMINATION: Blood pressure 153/69 with a pulse of 75, temperature 98.2. She is 93% on 2 L nasal cannula. General description is an elderly female up in the bed in no distress. RESPIRATORY SYSTEM: Unlabored breathing, clear to auscultation anteriorly. HEART: S1, S2. Regular rate and rhythm. ABDOMEN: Soft. No tenderness. Bilateral foot wounds are currently dressed up, no obvious drainage on the dressing. LABS: No new labs have been obtained today. DIAGNOSTIC IMPRESSION AND PLAN: Patient with bilateral diabetic foot ulcer with secondary cellulitis. Culture had been negative for resistant pathogen. The patient is currently on Unasyn to finish therapy with oral antibiotics. Local care to continue with Aquacel Silver dressing and continue supportive care. MMODL / IJN: [id number] /
--- NOTE | 2019-11-08 02:49 | PN ---
PROGRESS NOTE A 74-year-old white female with bilateral feet cellulitis on IV antibiotics and switched to oral. EGD showed significant findings. CARDIOVASCULAR: S1, S2. LUNGS: Clear. ABDOMEN: Soft. EXTREMITIES: No cyanosis, clubbing, edema. Ulcerations of the tarsal posterior bilateral great toes. Continue current treatment. ASSESSMENT: 1. Bilateral feet cellulitis. 2. Insulin-dependent diabetes mellitus. 3. Possible gastroparesis. Current treatment, possible discharge home if cleared by Cardiology. MMODL / IJN: [id number] /
[2019-11-08 03:38] VITALS: RESP 20
[2019-11-08] MEDS: NITROGLYCERIN OINT 1 INCH/GM PACKET TOPICAL SCH ×2 (05:16→12:12)
[2019-11-08] MEDS: AMPICILLIN-SULBACTAM 3 GM in SODIUM CHLORIDE 0.9% 100 ML IVPB SCH ×2 (05:16→12:29)
[2019-11-08 06:05] LABS: Glucose,Whole Blood 130 mg/dL (75-99)
[2019-11-08] MEDS: INSULIN ASPART (NovoLOG) 100 UNIT/ML VIAL SQ SCH ×2 (06:09→12:12)
[2019-11-08] MEDS: SYMBICORT 160-4.5 MCG INHALER INHALATION SCH (07:30)
[2019-11-08] MEDS: IPRATROPIUM-ALBUTEROL 3 ML NEB INHALATION SCH ×3 (07:30→15:28)
--- NOTE | 2019-11-08 08:05 | CDI ---
Documentation Clarification Form Date: 11/07/2019 12:13:00 PM From: Jennifer Lerma CCS, CCDS Admit Date: 11/02/2019 02:23:00 PM Patient Name: Lorelei Brand Visit Number: [id number] Discharge Date: ATTENTION: The Clinical Documentation Specialists (CDI) and [facility] Coding Staff appreciate your assistance in clarifying documentation. Please respond to the clarification below the line at the bottom and electronically sign. The CDI & [facility] Coding staff will review the response and follow-up if needed. Please note: Queries are made part of the Legal Health Record. If you have any questions, please contact the author of this message via ITS. Dr. Medardo Grande: Renal insufficiency is documented in the Cardiology, Infectious Disease & Gastrointestinal Consults on 11/01 & 11/02 without further specificity. History/Risk Factors: CAD with previous [place] & coronary stents, CHF nos, IDDM II,Neuropathy bilateral feet, Hyperlipidemia, Hypertension, Osteoarthritis, Pneumonia, "Renal Disease", Sleep apnea on home O2. Patients Historical BUN/CR/GFR: GFR 09/24/2016: >60, GFR 11/03/2019: 88. Clinical Indicators: Patient presented with bilateral foot & toe diabetic ulcers. Current BUN/Creatinine & GFR: 23^/Cr 0.87/67 - 88 Treatment: INH Duoneb, IV Protonix, IV Ampicillin, Insulin sq 30 units BID po Metformin 1,000 mg BID, IV Dextrose 1000 mls @ 50/hr Nephrology is not consulted. In order to capture the severity of condition, please clarify the stage of the CKD, if known: CKD is ruled out CKD Stage 1 (GFR > 90) CKD Stage 2 (GFR 60-89) Other Renal Insufficiency, please specify: Other, please specify Unable to determine (Last Revision: June 2019) MTDD
[2019-11-08] MEDS: FUROSEMIDE 40 MG TAB PO SCH (09:23)
[2019-11-08] MEDS: amLODIPine 10 MG TAB PO SCH (09:23)
[2019-11-08] MEDS: METOPROLOL TARTRATE 50 MG TAB PO SCH (09:23)
[2019-11-08] MEDS: RANOLAZINE 500 MG TAB.ER.12H PO SCH (09:23)
[2019-11-08] MEDS: CLOPIDOGREL 75 MG TAB PO SCH (09:23)
[2019-11-08] MEDS: LISINOPRIL 20 MG TAB PO SCH (09:23)
[2019-11-08] MEDS: SUCRALFATE 1 GM TAB PO SCH ×3 (09:23→16:02)
[2019-11-08] MEDS: MAGNESIUM OXIDE 400 MG TAB PO SCH (09:23)
[2019-11-08] MEDS: DICYCLOMINE 10 MG CAP PO SCH (09:23)
[2019-11-08] MEDS: ISOSORBIDE MONONITRATE ER 60 MG TAB.ER.24H PO SCH (09:23)
[2019-11-08] MEDS: CHOLECALCIFEROL 1,000 UNIT TAB PO SCH (09:23)
[2019-11-08] MEDS: MAG HYDROX/AL HYDROX/SIMETH 30 ML CUP PO SCH ×2 (09:23→12:29)
[2019-11-08] MEDS: rOPINIRole HCL 4 MG TABLET PO SCH (09:24)
[2019-11-08] MEDS: ASPIRIN 81 MG PO SCH (09:24)
[2019-11-08] MEDS: metFORMIN 500 MG TAB PO SCH (09:32)
[2019-11-08] MEDS: PANTOPRAZOLE 40 MG/10 ML VIAL IVP SCH (09:33)
[2019-11-08] MEDS: INSULN ASP PRT/INSULIN ASPART 100 UNIT/ML 10 ML VIAL SQ SCH (09:33)
[2019-11-08 12:10] LABS: Glucose,Whole Blood 106 mg/dL (75-99)
[2019-11-08] MEDS ORDERED: METOCLOPRAMIDE 10 MG TAB PO SCH (12:30)
[2019-11-08 13:08] VITALS: BP 119/56; PULSE 62; TEMP 97.9
--- NOTE | 2019-11-08 15:31 | PN ---
PROGRESS NOTE DATE OF SERVICE: 11/08/2019 REASON FOR FOLLOWUP: Bilateral diabetic foot ulcer and cellulitis. INTERVAL HISTORY: The patient is currently afebrile. She is complaining of some lower abdominal pain. No further nausea, vomiting and no diarrhea. No chest pain, shortness of breath or cough. No pain to the bilateral foot wound areas. PHYSICAL EXAMINATION: Blood pressure 119/56, pulse of 62, temperature 97.9. She is 96% on 2 L nasal cannula. General description is an elderly female up in the chair in no distress. RESPIRATORY SYSTEM: Unlabored breathing. Clear to auscultation anteriorly. HEART: S1, S2. Regular rate and rhythm. ABDOMEN: Soft. No tenderness. Bilateral feet are currently dressed up. No obvious drainage on the dressings. LABS: No new labs have been obtained today. DIAGNOSTIC IMPRESSION AND PLAN: Patient with bilateral diabetic foot ulcers with secondary cellulitis. Cultures have been negative for any resistant pathogen. Overall improvement on Unasyn. Switch antibiotic therapy to oral mg 3 times a day for another 10 days. Local wound care with dry Aquacel Silver dressing and close outpatient followup. MMODL / IJN: [id number] /
--- NOTE | 2019-11-08 16:44 | PN ---
PROGRESS NOTE DATE OF DICTATION: 11/08/2019 This patient is a 74-year-old pleasant white female admitted to the hospital with severe epigastric pain, nausea, vomiting for 3 or 4 days' duration. She had an upper endoscopy done that showed mild diffuse gastritis. She is on Protonix 40 mg daily, Reglan and Carafate, and is doing much better. She had some epigastric pain this morning but overall feeling much better. PHYSICAL EXAMINATION: Appears comfortable. No apparent distress. VITAL SIGNS: Stable. Blood pressure 119/56, pulse rate 62, temperature 97.9. HEENT examination unremarkable. Conjunctivae pink. Sclerae anicteric. Oral cavity no lesions. NECK: No JVD or lymph node enlargement. CHEST: Clear to auscultation. HEART: Regular rate and rhythm. ABDOMEN: Soft. Bowel sounds are positive. No organomegaly. EXTREMITIES: No pedal edema. NEUROLOGIC: Alert and oriented x3. No focal deficits. LABS: No labs from today. IMPRESSION: 1. Severe epigastric pain associated with nausea and vomiting for the last few days' duration, status post esophagogastroduodenoscopy yesterday that showed diffuse gastritis. Overall she is doing much better on Protonix, Reglan and Carafate. 2. Microcytic anemia. 3. History of irritable bowel syndrome. 4. History of hypertension and hyperlipidemia. RECOMMENDATIONS: 1. Continue with Protonix, Reglan and Carafate. 2. Advance diet as tolerated. 3. Small frequent meals. 4. Patient is being discharged home today. She was advised to follow up in the office in 2 weeks following discharge from the hospital. Thank you for this consultation. MMODL / IJN: [id number] /
--- NOTE | 2019-11-09 08:48 | CDI ---
Documentation Clarification Form Date: 11/07/2019 12:13:00 PM From: Jennifer Lerma CCS, CCDS Admit Date: 11/02/2019 02:23:00 PM Patient Name: Lorelei Brand Visit Number: [id number] Discharge Date: 11/08/2019 04:49:00 PM ATTENTION: The Clinical Documentation Specialists (CDI) and [facility] Coding Staff appreciate your assistance in clarifying documentation. Please respond to the clarification below the line at the bottom and electronically sign. The CDI & [facility] Coding staff will review the response and follow-up if needed. Please note: Queries are made part of the Legal Health Record. If you have any questions, please contact the author of this message via ITS. Dr. Medardo Grande: Renal insufficiency is documented in the Cardiology, Infectious Disease & Gastrointestinal Consults on 11/01 & 11/02 without further specificity. History/Risk Factors: CAD with previous [place] & coronary stents, CHF nos, IDDM II,Neuropathy bilateral feet, Hyperlipidemia, Hypertension, Osteoarthritis, Pneumonia, "Renal Disease", Sleep apnea on home O2. Patients Historical BUN/CR/GFR: GFR 09/24/2016: >60, GFR 11/03/2019: 88. Clinical Indicators: Patient presented with bilateral foot & toe diabetic ulcers. Current BUN/Creatinine & GFR: 23^/Cr 0.87/67 - 88 Treatment: INH Duoneb, IV Protonix, IV Ampicillin, Insulin sq 30 units BID po Metformin 1,000 mg BID, IV Dextrose 1000 mls @ 50/hr Nephrology is not consulted. In order to capture the severity of condition, please clarify the stage of the CKD, if known: CKD is ruled out CKD Stage 1 (GFR > 90) CKD Stage 2 (GFR 60-89) Other, please specify Unable to determine (Last Revision: June 2019) Query response documented in 11/08 Discharge Summary: Dr Grande on 11/08. RAJINDER/eveline MTDD
--- NOTE | 2019-11-09 15:59 | P.DS ---
Providers Date of admission: 11/02/19 14:23 Expected date of discharge: 11/08/19 Attending physician: Medardo Grande Consults: 11/02/19 16:00 Consult Physician Routine Consulting Provider: Freddie Caro Consult Reason/Comments: [place] Do you want consulting provider notified?: Yes 11/02/19 16:01 Consult Physician Routine Consulting Provider: Joanne Perez Consult Reason/Comments: cellulitis feet Do you want consulting provider notified?: Yes 11/04/19 15:22 Consult Physician Routine Consulting Provider: Zunilda Altman Consult Reason/Comments: abd pain,nausea Do you want consulting provider notified?: Yes 11/04/19 21:33 Consult Physician Routine Consulting Provider: Zunilda Altman Consult Reason/Comments: epigastric pain Do you want consulting provider notified?: Yes Primary care physician: [facility] Course: Final Diagnoses: Atypical chest pain, negative troponins, acute coronary syndrome ruled out Epigastric pain with nausea, vomiting .Status post EGD reporting mild diffuse antral gastritis, no esophagitis or peptic ulcer disease bilateral diabetic foot wounds with secondary cellulitis Chronic Plantar wounds of bilateral feet, recent post I&D. Refer to nursing documentation. Prior Cultures reporting Anaerobic Gram Positive Cocci. COPD, stable CHF Diabetes mellitus type II hypertension CAD, history of CT Obstructive sleep apnea Morbid obesity, BMI 39.8 Chronic kidney disease stage III Degenerative joint disease with gait dysfunction, history of falls Chronic hypoxic respiratory failure, wears 2 L nasal cannula at home History of nicotine dependence Hospital course: This a 74-year-old female admitted with multiple medical issues including chest pain, abdominal pain, nausea, vomiting, bilateral diabetic foot ulcers with secondary cellulitis with prior cultures predominantly growing gram- positive cocci. Evaluated by cardiology, GI and infectious disease. Ranexa added to med regimen as per cardiology. Maintained on IV antibiotics and local wound care. Underwent EGD reporting mild diffuse antral gastritis, no evidence of esophagitis or peptic ulcer disease. Maintained on Protonix 40 mg daily. Tolerated diet advancement and no further nausea vomiting or diarrhea. Clear bile consults for discharge. Patient is being discharged home in stable condition with guarded prognosis. The impression and plan of care has been dictated as directed. : I performed a history and examination of this patient, discussed the same with the dictator. I agree with the dictator's note ,documented as a scribe. Any additional findings or plans will be noted. Patient Condition at Discharge: Stable Plan - Discharge Summary New Discharge Prescriptions: New Ranolazine [Ranexa] 500 mg PO Q12HR #60 tab.er.12h Omeprazole [PriLOSEC] 40 mg PO HS #30 cap Cephalexin [Keflex] 500 mg PO Q8HR #30 cap Continue Cholecalciferol [Vitamin D3 (25 Mcg = 1000 Iu)] 1,000 unit PO DAILY Clopidogrel [Plavix] 75 mg PO DAILY Montelukast Sodium [Singulair] 10 mg PO HS #30 tab Nitroglycerin Sl Tabs [Nitrostat] 0.4 mg SUBLINGUAL Q5M PRN #0 tab PRN Reason: Chest Pain Metoprolol Tartrate [Lopressor] 50 mg PO BID Lennox-3 Fatty Acids [Lennox-3] 2,000 mg PO DAILY Isosorbide Mononitrate ER [Imdur] 60 mg PO DAILY #30 tab.er.24h Dicyclomine [Bentyl] 10 mg PO DAILY Aspirin 81 mg PO DAILY chew Acetaminophen Tab [Tylenol] 500 mg PO Q6HR PRN tab PRN Reason: Fever And/ Or Pain Fluticasone/Umeclidin/Vilanter [Trelegy Ellipta 100-62.5-25] 1 puff INHALATION RT-DAILY Sucralfate [Carafate] 1 gm PO QID Insulin Aspart Protam & Aspart [NovoLOG MIX 70-30 Flexpen] 30 unit SQ BID Dulaglutide [Trulicity] 1.5 mg SQ KISER Metoclopramide [Reglan] 10 mg PO QID PRN PRN Reason: Nausea metFORMIN HCL 1,000 mg PO BID Furosemide [Lasix] 40 mg PO BID Simvastatin [Zocor] 20 mg PO HS Lisinopril 40 mg PO DAILY amLODIPine [Norvasc] 10 mg PO DAILY HYDROcodone/APAP 7.5-325MG [[place] 7.5-325] 1 tab PO Q6H PRN #12 tab PRN Reason: Pain rOPINIRole HCL [Requip] 4 mg PO TID Potassium Chloride ER [K-Dur 20] 20 meq PO BID Magnesium Oxide 400 mg PO DAILY Discontinued Omeprazole 20 mg PO HS Discharge Medication List Cholecalciferol [Vitamin D3 (25 Mcg = 1000 Iu)] 1,000 unit PO DAILY 02/26/15 [History] Clopidogrel [Plavix] 75 mg PO DAILY 09/05/15 [History] Montelukast Sodium [Singulair] 10 mg PO HS #30 tab 10/25/15 [Rx] Nitroglycerin Sl Tabs [Nitrostat] 0.4 mg SUBLINGUAL Q5M PRN #0 tab 09/24/16 [Rx] Metoprolol Tartrate [Lopressor] 50 mg PO BID 02/09/18 [History] Lennox-3 Fatty Acids [Lennox-3] 2,000 mg PO DAILY 09/29/18 [History] Isosorbide Mononitrate ER [Imdur] 60 mg PO DAILY #30 tab.er.24h 11/17/18 [Rx] Dicyclomine [Bentyl] 10 mg PO DAILY 04/16/19 [History] Aspirin 81 mg PO DAILY chew 04/17/19 [Rx] Acetaminophen Tab [Tylenol] 500 mg PO Q6HR PRN tab 06/23/19 [Rx] Fluticasone/Umeclidin/Vilanter [Trelegy Ellipta 100-62.5-25] 1 puff INHALATION RT-DAILY 07/07/19 [History] Dulaglutide [Trulicity] 1.5 mg SQ KISER 08/15/19 [History] Furosemide [Lasix] 40 mg PO BID 08/15/19 [History] Insulin Aspart Protam & Aspart [NovoLOG MIX 70-30 Flexpen] 30 unit SQ BID 08/15/19 [History] Metoclopramide [Reglan] 10 mg PO QID PRN 08/15/19 [History] Sucralfate [Carafate] 1 gm PO QID 08/15/19 [History] metFORMIN HCL 1,000 mg PO BID 08/15/19 [History] Lisinopril 40 mg PO DAILY 08/30/19 [History] Simvastatin [Zocor] 20 mg PO HS 08/30/19 [History] amLODIPine [Norvasc] 10 mg PO DAILY 08/30/19 [History] HYDROcodone/APAP 7.5-325MG [[place] 7.5-325] 1 tab PO Q6H PRN #12 tab 09/04/19 [Rx] Magnesium Oxide 400 mg PO DAILY 11/02/19 [History] Potassium Chloride ER [K-Dur 20] 20 meq PO BID 11/02/19 [History] rOPINIRole HCL [Requip] 4 mg PO TID 11/02/19 [History] Cephalexin [Keflex] 500 mg PO Q8HR #30 cap 11/08/19 [Rx] Omeprazole [PriLOSEC] 40 mg PO HS #30 cap 11/08/19 [Rx] Ranolazine [Ranexa] 500 mg PO Q12HR #60 tab.er.12h 11/08/19 [Rx] Follow up Appointment(s)/Referral(s): Medardo Grande MD [Primary Care Provider] - 11/13/19 1:45 am Patient Instructions/Handouts: Cellulitis (DC) Activity/Diet/Wound Care/Special Instructions: Pending DC recommendations including antibiotics, wound care, clearance as per ID. Attendant Home [facility]: [phone] Diet consistent carb Discharge Disposition: HOME SELF-CARE
--- NOTE | 2019-11-09 23:24 | DS ---
DISCHARGE SUMMARY Chronic kidney disease stage 3. MMODL / IJN: [id number] /
--- NOTE | 2019-11-10 22:43 | DS ---
DISCHARGE SUMMARY ADDENDUM TO DISCHARGE SUMMARY: Chronic renal disease, stage 2. MMODL / IJN: [id number] /
== END 2019-11-08 16:49 | disposition home health service (06) | DRG 638 ==
LOC: 4SSUR 14:23 → 3SCARD 11-03 13:47
PROVIDERS: ADMIT Family Medicine; ATTEND Family Medicine
PROC: 0DJ08ZZ Inspection of Upper Intestinal Tract, Via Natural or Artificial Opening Endoscopic (ICD-10-PCS; principal; 2019-11-07 13:10)
DX: E11.621 Type 2 diabetes mellitus with foot ulcer (principal); L03.115 Cellulitis of right lower limb; J96.11 Chronic respiratory failure with hypoxia; I13.0 Hypertensive heart and chronic kidney disease with heart failure and stage 1 through stage 4 chronic kidney disease, or unspecified chronic kidney disease; L03.116 Cellulitis of left lower limb; L02.612 Cutaneous abscess of left foot; L02.611 Cutaneous abscess of right foot; I50.32 Chronic diastolic (congestive) heart failure; D63.1 Anemia in chronic kidney disease; E11.43 Type 2 diabetes mellitus with diabetic autonomic (poly)neuropathy; E11.22 Type 2 diabetes mellitus with diabetic chronic kidney disease; E11.42 Type 2 diabetes mellitus with diabetic polyneuropathy; E11.628 Type 2 diabetes mellitus with other skin complications; L97.521 Non-pressure chronic ulcer of other part of left foot limited to breakdown of skin; L97.511 Non-pressure chronic ulcer of other part of right foot limited to breakdown of skin; J44.9 Chronic obstructive pulmonary disease, unspecified; E66.01 Morbid (severe) obesity due to excess calories; Z79.4 Long term (current) use of insulin; K31.84 Gastroparesis; G25.81 Restless legs syndrome; M19.90 Unspecified osteoarthritis, unspecified site; E78.5 Hyperlipidemia, unspecified; G47.33 Obstructive sleep apnea (adult) (pediatric); K44.9 Diaphragmatic hernia without obstruction or gangrene; K29.70 Gastritis, unspecified, without bleeding; K21.9 Gastro-esophageal reflux disease without esophagitis; I25.10 Atherosclerotic heart disease of native coronary artery without angina pectoris; R07.89 Other chest pain; K58.9 Irritable bowel syndrome, unspecified; I25.2 Old myocardial infarction; Z68.39 Body mass index [BMI] 39.0-39.9, adult; Z79.02 Long term (current) use of antithrombotics/antiplatelets; Z79.82 Long term (current) use of aspirin; N18.2 Chronic kidney disease, stage 2 (mild); Z79.899 Other long term (current) drug therapy; Z91.81 History of falling; Z86.010 Personal history of colon polyps; Z95.5 Presence of coronary angioplasty implant and graft; Z87.01 Personal history of pneumonia (recurrent); Z99.81 Dependence on supplemental oxygen; Z90.49 Acquired absence of other specified parts of digestive tract; Z98.890 Other specified postprocedural states; Z91.048 Other nonmedicinal substance allergy status; Z87.891 Personal history of nicotine dependence; Z88.1 Allergy status to other antibiotic agents; Z88.0 Allergy status to penicillin; Z88.8 Allergy status to other drugs, medicaments and biological substances; Z91.018 Allergy to other foods; Z82.49 Family history of ischemic heart disease and other diseases of the circulatory system
CPT/HCPCS: 43235; 80048; 80053; 84484; 85025; 85610; 85652; 85730; 86140; 87070; 87075; 87205; 87324; 93005; 93306; 94640

== ENCOUNTER → 2019-11-02 | Outpatient (CLI) | payer MEDICARE, OTHER ==
--- NOTE | 2019-11-02 14:34 | XR ---
EXAMINATION TYPE: XR foot complete bilateral DATE OF EXAM: 11/02/2019 CLINICAL HISTORY: Bilateral diabetic foot ulcers. TECHNIQUE: Frontal, lateral, and oblique images of the bilateral feet are obtained. COMPARISON: Prior bilateral feet x-ray August 30, 2019. FINDINGS: Left foot demonstrate demineralization. Overlying gauze or bandage material near first prox imal phalanx proximal metadiaphysis remains present. Ulcer along the plantar surface near this level again seen. Hallux valgus positioning first metatarsophalangeal joint. Flexion in the toes. No suspic ious new cortical destruction or periosteal reaction. Small inferior calcaneal spur redemonstrated. M oderate diffuse subcutaneous edema again seen. Right foot shows demineralization with more prominent hallux valgus positioning first metatarsophalan geal joint. Overlying gauze or bandage material near this level is now present. Lucency consistent wi th ulceration along the plantar surface appears slightly larger in length on the lateral view versus prior radiograph. No suspicious new cortical destruction or periosteal reaction is present. Persisten t fairly large superior and inferior calcaneal spurs. Flexion in the toes is redemonstrated. IMPRESSION: There is redemonstration of known soft tissue foot ulcers without convincing new radiogr aphic evidence for acute osteomyelitis.
== END | disposition home or self-care (01) ==
LOC: RADXRMAIN 13:57
PROVIDERS: ATTEND Family Medicine
DX: L97.529 Non-pressure chronic ulcer of other part of left foot with unspecified severity (principal); L97.519 Non-pressure chronic ulcer of other part of right foot with unspecified severity

== ENCOUNTER 2019-11-26 19:40 | Inpatient (IN) | payer MEDICARE, OTHER ==
[2019-11-26] MEDS ORDERED: ASPIRIN 81 MG PO STA (19:55)
[2019-11-26] MEDS ORDERED: NITROGLYCERIN-D5W PMX 50 MG in DEXTROSE/WATER 1 250ML.BAG IV STA (19:55)
--- NOTE | 2019-11-26 19:56 | ED ---
General Adult HPI - General Chief complaint: Chest Pain Stated complaint: Chest pain Time Seen by Provider: 11/26/19 19:45 Source: patient, RN notes reviewed, old records reviewed Mode of arrival: ambulatory Limitations: no limitations - History of Present Illness Initial comments: This is a 74-year-old female with a past medical history significant for diabetes 5 stent placements hypertension high cholesterol and COPD. Patient comes in today because she started having chest pain at 6:00 is in the center of her chest and it has no radiation but it does make her short of breath. Patient states she also was diaphoretic when she had the pain. Patient states the pain is very reminiscent of the pain she's had in the past when she's had a heart att ack. Patient denies any recent fever chills or cough per patient denies lightheadedness or dizziness. Patient states she took 5 nitroglycerin and they did not have any effect. Patient states she has not yet taken her aspirin for the day. Patient denies any abdominal pain patient denies nausea vomiting diarrhea. - Related Data Home Medications Medication Instructions Recorded Confirmed Cholecalciferol [Vitamin D3 (25 1,000 unit PO DAILY 02/26/15 11/02/19 Mcg = 1000 Iu)] Clopidogrel [Plavix] 75 mg PO DAILY 09/05/15 11/02/19 Metoprolol Tartrate [Lopressor] 50 mg PO BID 02/09/18 11/02/19 Omro-3 Fatty Acids [Omro-3] 2,000 mg PO DAILY 09/29/18 11/02/19 Dicyclomine [Bentyl] 10 mg PO DAILY 04/16/19 11/02/19 Fluticasone/Umeclidin/Vilanter 1 puff INHALATION RT-DAILY 07/07/19 11/02/19 [Trelegy Ellipta 100-62.5-25] Dulaglutide [Trulicity] 1.5 mg SQ KISER 08/15/19 11/02/19 Furosemide [Lasix] 40 mg PO BID 08/15/19 11/02/19 Insulin Aspart Protam & Aspart 30 unit SQ BID 08/15/19 11/02/19 [NovoLOG MIX 70-30 Flexpen] Metoclopramide [Reglan] 10 mg PO QID PRN 08/15/19 11/02/19 Sucralfate [Carafate] 1 gm PO QID 08/15/19 11/02/19 metFORMIN HCL 1,000 mg PO BID 08/15/19 11/02/19 Lisinopril 40 mg PO DAILY 08/30/19 11/02/19 Simvastatin [Zocor] 20 mg PO HS 08/30/19 11/02/19 amLODIPine [Norvasc] 10 mg PO DAILY 08/30/19 11/02/19 Magnesium Oxide 400 mg PO DAILY 11/02/19 11/02/19 Potassium Chloride ER [K-Dur 20] 20 meq PO BID 11/02/19 11/02/19 rOPINIRole HCL [Requip] 4 mg PO TID 11/02/19 11/02/19 Previous Rx's Medication Instructions Recorded Montelukast Sodium [Singulair] 10 mg PO HS #30 tab 10/25/15 Nitroglycerin Sl Tabs [Nitrostat] 0.4 mg SUBLINGUAL Q5M PRN #0 tab 09/24/16 Isosorbide Mononitrate ER [Imdur] 60 mg PO DAILY #30 tab.er.24h 11/17/18 Aspirin 81 mg PO DAILY chew 04/17/19 Acetaminophen Tab [Tylenol] 500 mg PO Q6HR PRN tab 06/23/19 HYDROcodone/APAP 7.5-325MG [[place] 1 tab PO Q6H PRN #12 tab 09/04/19 7.5-325] Cephalexin [Keflex] 500 mg PO Q8HR #30 cap 11/08/19 Omeprazole [PriLOSEC] 40 mg PO HS #30 cap 11/08/19 Ranolazine [Ranexa] 500 mg PO Q12HR #60 tab.er.12h 11/08/19 Allergies Allergy/AdvReac Type Severity Reaction Status Date / Time amoxicillin [From Augmentin] Allergy Rash/Hives Verified 11/26/19 19:46 clavulanic acid Allergy Rash/Hives Verified 11/26/19 19:46 [From Augmentin] metronidazole [From Flagyl] Allergy Nausea & Verified 11/26/19 19:46 Vomiting adhesive tape AdvReac bruises,"paper Verified 11/26/19 19:46 tape is ok" albuterol AdvReac Rapid Verified 11/26/19 19:46 Heart Rate stress test injection Allergy Anaphylaxis Uncoded 11/26/19 19:46 sun dried tomatoes Allergy lip Uncoded 11/26/19 19:46 swelling Review of Systems ROS Statement: Those systems with pertinent positive or pertinent negative responses have been documented in the HPI. ROS Other: All systems not noted in ROS Statement are negative. Past Medical History Past Medical History: Asthma, Coronary Artery Disease (CAD), Heart Failure, COPD, Diabetes Mellitus, Hyperlipidemia, Hypertension, Myocardial Infarction (SC), Osteoarthritis (OA), Pneumonia, Renal Disease, Skin Disorder, Sleep Apnea/CPAP/BIPAP Additional Past Medical History / Comment(s): NIDDM type II, neuropathy bilateral feet, bilateral diabetic great toe ulcers with 2ndary cellulitis, colitis with recent flare, recent r side pneumonia, renal insufficiency, IRA with no device, home oxygen at 2L/NC at HS, RLS, diarrhea. Last Myocardial Infarction Date:: 2017 History of Any Multi-Drug Resistant Organisms: None Reported Past Surgical History: Appendectomy, Breast Surgery, Cholecystectomy, Heart Ca theterization, Heart Catheterization With Stent Additional Past Surgical History / Comment(s): PCI with stents, R lung thoracotomy/decortication for empyema, L breast benign bx, colonoscopy Past Anesthesia/Blood Transfusion Reactions: No Reported Reaction Additional Past Anesthesia/Blood Transfusion Reaction / Comment(s): severe claustrophobia Date of Last Stent Placement:: 11/30/2017 Past Psychological History: No Psychological Hx Reported Smoking Status: Former smoker Past Alcohol Use History: None Reported Past Drug Use History: None Reported - Past Family History Brother(s) Family Medical History: Cancer Father Family Medical History: Chest Pain / Angina Additional Family Medical History / Comment(s): Father of a SC at the age of 77yrs. Mother Family Medical History: Chest Pain / Angina Additional Family Medical History / Comment(s): Mother of a SC at the age of 74yrs. General Exam - General Exam Comments Initial Comments: GENERAL: Patient is well-developed and well-nourished. Patient is nontoxic and well- hydrated and is in mild distress. ENT: Neck is soft and supple. No significant lymphadenopathy is noted. Oropharynx is clear. Moist mucous membranes. Neck has full range of motion without eliciting any pain. EYES: The sclera were anicteric and conjunctiva were pink and moist. Extraocular movements were intact and pupils were equal round and reactive to light. Eyelids were unremarkable. PULMONARY: Unlabored respirations. Good breath sounds bilaterally. No audible rales rhonchi or wheezing was noted. CARDIOVASCULAR: There is a regular rate and rhythm without any murmurs gallops or rubs. ABDOMEN: Soft and nontender with normal bowel sounds. SKIN: Skin is clear with no lesions or rashes and otherwise unremarkable. NEUROLOGIC: Patient is alert and oriented x3. Cranial nerves II through XII are grossly intact. Motor and sensory are also intact. Normal speech, volume and content. Symmetrical smile. MUSCULOSKELETAL: Normal extremities with adequate strength and full range of motion. Patient had no calf tenderness bilaterally LYMPHATICS: No significant lymphadenopathy is noted PSYCHIATRIC: Normal psychiatric evaluation. Limitations: no limitations Course Vital Signs 11/26/19 11/26/19 11/26/19 19:43 19:51 20:07 Temperature 99.4 F Pulse Rate 95 96 94 Respiratory 22 24 24 Rate Blood Pressure 145/70 161/92 167/75 O2 Sat by Pulse 96 92 L 97 Oximetry 11/26/19 11/26/19 11/26/19 20:15 20:21 20:41 Temperature Pulse Rate 95 96 98 Respiratory 20 20 24 Rate Blood Pressure 148/85 141/92 115/76 O2 Sat by Pulse 97 95 96 Oximetry Medical Decision Making - Medical Decision Making EKG shows normal sinus rhythm at 97 bpm VA interval is 200 QRS is 98 QT interval 376 QTC is 477. Patient's EKG shows no ST segment elevation however there is slight ST segment depression in leads II, III, and F aVF however there was seen on an old EKG. EKG shows sinus rhythm with occasional PAC at 96 bpm VA interval is 196 dresses 104 QT interval 382 QTC is 482. Patient's EKG shows no ST segment elevation or depression. Chest x-ray shows no acute abnormality. I started the patient heparin. I spoke with Dr. Medardo Grande he agreed to admit the patient admitted the patient remaining orders consult cardiology continued heparin Nitropaste on the floor - Lab Data Result diagrams: 11/26/19 19:56 11/26/19 19:56 Lab Results 11/26/19 11/26/19 11/26/19 Range/Units 19:56 19:56 19:56 WBC 15.1 H (3.8-10.6) k/uL RBC 4.59 (3.80-5.40) m/uL Hgb 9.2 L (11.4-16.0) gm/dL Hct 31.8 L (34.0-46.0) % MCV 69.4 L (80.0-100.0) fL MCH 20.1 L (25.0-35.0) pg MCHC 29.0 L (31.0-37.0) g/dL RDW 18.0 H (11.5-15.5) % Plt Count 503 H (150-450) k/uL Neutrophils % 65 % Lymphocytes % 26 % Monocytes % 5 % Eosinophils % 2 % Basophils % 1 % Neutrophils # 9.8 H (1.3-7.7) k/uL Lymphocytes # 3.9 (1.0-4.8) k/uL Monocytes # 0.8 (0-1.0) k/uL Eosinophils # 0.3 (0-0.7) k/uL Basophils # 0.1 (0-0.2) k/uL Hypochromasia Marked Poikilocytosis Slight Anisocytosis Slight Microcytosis Marked PT 9.6 (9.0-12.0) sec INR 0.9 (<1.2) APTT 23.2 (22.0-30.0) sec Sodium 131 L (137-145) mmol/L Potassium 4.7 (3.5-5.1) mmol/L Chloride 96 L (98-107) mmol/L Carbon Dioxide 21 L (22-30) mmol/L Anion Gap 14 mmol/L BUN 25 H (7-17) mg/dL Creatinine 1.21 H (0.52-1.04) mg/dL Est GFR (CKD-EPI)AfAm 52 (>60 ml/min/1.73 sqM) Est GFR (CKD-EPI)NonAf 45 (>60 ml/min/1.73 sqM) Glucose 198 H (74-99) mg/dL Calcium 9.6 (8.4-10.2) mg/dL Magnesium 1.7 (1.6-2.3) mg/dL Total Bilirubin 0.4 (0.2-1.3) mg/dL AST 22 (14-36) U/L ALT 22 (4-34) U/L Alkaline Phosphatase 138 H (38-126) U/L Troponin I (0.000-0.034) ng/mL Total Protein 7.2 (6.3-8.2) g/dL Albumin 4.0 (3.5-5.0) g/dL 11/26/19 Range/Units 19:56 WBC (3.8-10.6) k/uL RBC (3.80-5.40) m/uL Hgb (11.4-16.0) gm/dL Hct (34.0-46.0) % MCV (80.0-100.0) fL MCH (25.0-35.0) pg MCHC (31.0-37.0) g/dL RDW (11.5-15.5) % Plt Count (150-450) k/uL Neutrophils % % Lymphocytes % % Monocytes % % Eosinophils % % Basophils % % Neutrophils # (1.3-7.7) k/uL Lymphocytes # (1.0-4.8) k/uL Monocytes # (0-1.0) k/uL Eosinophils # (0-0.7) k/uL Basophils # (0-0.2) k/uL Hypochromasia Poikilocytosis Anisocytosis Microcytosis PT (9.0-12.0) sec INR (<1.2) APTT (22.0-30.0) sec Sodium (137-145) mmol/L Potassium (3.5-5.1) mmol/L Chloride (98-107) mmol/L Carbon Dioxide (22-30) mmol/L Anion Gap mmol/L BUN (7-17) mg/dL Creatinine (0.52-1.04) mg/dL Est GFR (CKD-EPI)AfAm (>60 ml/min/1.73 sqM) Est GFR (CKD-EPI)NonAf (>60 ml/min/1.73 sqM) Glucose (74-99) mg/dL Calcium (8.4-10.2) mg/dL Magnesium (1.6-2.3) mg/dL Total Bilirubin (0.2-1.3) mg/dL AST (14-36) U/L ALT (4-34) U/L Alkaline Phosphatase (38-126) U/L Troponin I 0.013 (0.000-0.034) ng/mL Total Protein (6.3-8.2) g/dL Albumin (3.5-5.0) g/dL Critical Care Time Critical Care Time: Yes Total Critical Care Time: 35 Disposition Clinical Impression: Unstable angina pectoris Disposition: ADMITTED IP TO THIS HOSP Referrals: Medardo Grande MD [Primary Care Provider] - 1-2 days Time of Disposition: 20:52
[2019-11-26 20:05] LABS: Anisocytosis Slight; Basophils # (A) 0.1 k/uL (0-0.2); Basophils % (A) 1 %; Eosinophils # (A) 0.3 k/uL (0-0.7); Eosinophils % (A) 2 %; HCT 31.8 % (34.0-46.0); HGB 9.2 gm/dL (11.4-16.0); Hypochromasia Marked; Lymphocytes # (A) 3.9 k/uL (1.0-4.8); Lymphocytes % (A) 26 %; MCH 20.1 pg (25.0-35.0); MCV 69.4 fL (80.0-100.0); Mean Platelet Volume 6.7; Microcytosis Marked; Monocytes # (A) 0.8 k/uL (0-1.0); Monocytes % (A) 5 %; Neutrophils # (A) 9.8 k/uL (1.3-7.7); Neutrophils % (A) 65 %; Platelet Count 503 k/uL (150-450); Poikilocytosis Slight; RBC 4.59 m/uL (3.80-5.40); WBC 15.1 k/uL (3.8-10.6)
[2019-11-26 20:19] LABS: INR 0.9 (<1.2); Partial Thromboplastin Time 23.2 sec (22.0-30.0); Prothrombin Time 9.6 sec (9.0-12.0)
[2019-11-26 20:28] LABS: Calcium 9.6 mg/dL (8.4-10.2); Magnesium 1.7 mg/dL (1.6-2.3); Potassium 4.7 mmol/L (3.5-5.1); Total Bilirubin 0.4 mg/dL (0.2-1.3); Total Protein 7.2 g/dL (6.3-8.2)
--- NOTE | 2019-11-26 20:49 | XR ---
EXAMINATION TYPE: XR chest 2V DATE OF EXAM: 11/26/2019 COMPARISON: 07/07/2019 HISTORY: Colitis. Pain. TECHNIQUE: 2 views FINDINGS: There is some blunting right costophrenic angle. There is no heart failure nor confluent pn eumonic infiltrate. Heart appears slightly enlarged. IMPRESSION: Mild pleural reaction right lung base. Heart appears increased in size compared to old ex am. There is no gross heart failure.
[2019-11-26] MEDS ORDERED: NITROGLYCERIN SL TABS 0.4 MG TAB SUBLINGUAL PRN (20:52)
[2019-11-26] MEDS ORDERED: HYDROcodone/APAP 7.5-325MG 1 EACH TAB PO ONE (21:22)
[2019-11-26] MEDS ORDERED: rOPINIRole HCL 4 MG TABLET PO STA (21:23)
[2019-11-26] MEDS ORDERED: MORPHINE SULFATE 2 MG/ML SYRINGE IVP STA (21:24)
[2019-11-26] MEDS: rOPINIRole HCL 4 MG TABLET PO SCH (23:21)
[2019-11-26] MEDS: HYDROcodone/APAP 7.5-325MG 1 EACH TAB PO PRN (23:21)
[2019-11-26] MEDS: MORPHINE SULFATE 2 MG/ML SYRINGE IVP PRN (23:22)
[2019-11-27] MEDS: NITROGLYCERIN OINT 1 INCH/GM PACKET TOPICAL SCH ×2 (01:40→01:42)
[2019-11-27] MEDS ORDERED: HEPARIN SODIUM,PORCINE 5,000 UNIT/ML 1 ML VIAL IV ONE (03:32)
[2019-11-27] MEDS ORDERED: HEPARIN SODIUM,PORCINE 5,000 UNIT/ML 1 ML VIAL IV PRN (03:32)
[2019-11-27] MEDS ORDERED: HEPARIN SOD,PORK IN 0.45% NACL 25,000 UNIT in 0.45% NACL 1 250ML.BAG IV SCH (03:45)
[2019-11-27 06:05] LABS: Glucose,Whole Blood 203 mg/dL (75-99)
[2019-11-27 06:07] LABS: Cholesterol 128 mg/dL (<200); HDL Cholesterol 59 mg/dL (40-60); LDL Cholesterol,Calculated 47 mg/dL (0-99); Triglycerides 110 mg/dL (<150)
[2019-11-27] MEDS: INSULIN ASPART (NovoLOG) 100 UNIT/ML VIAL SQ SCH ×3 (06:59→17:21)
[2019-11-27] MEDS: rOPINIRole HCL 4 MG TABLET PO SCH ×3 (08:27→21:59)
[2019-11-27] MEDS: HYDROcodone/APAP 7.5-325MG 1 EACH TAB PO PRN ×2 (08:27→21:57)
[2019-11-27] MEDS ORDERED: ASPIRIN 325 MG TAB PO SCH (09:00)
[2019-11-27] MEDS ORDERED: FUROSEMIDE 10 MG/ML 4 ML VIAL IV STA (09:42)
[2019-11-27] MEDS ORDERED: IPRATROPIUM-ALBUTEROL 3 ML NEB INHALATION PRN (09:43)
[2019-11-27] MEDS: MORPHINE SULFATE 2 MG/ML SYRINGE IVP PRN ×2 (10:44→14:35)
[2019-11-27] MEDS ORDERED: LIDOCAINE 1% INJ 10MG/ML (20 ML MDV) ONE (11:43)
[2019-11-27 11:55] LABS: Glucose,Whole Blood 218 mg/dL (75-99)
[2019-11-27] MEDS ORDERED: IV FLUID CONTINUATION 1,000 ML IV ONE (12:00)
[2019-11-27] MEDS ORDERED: MIDAZOLAM 2 MG/2 ML VIAL IVP ONE (12:04)
[2019-11-27] MEDS ORDERED: LIDOCAINE 1% INJ 10MG/ML (20 ML MDV) SQ ONE (12:07)
[2019-11-27] MEDS: IPRATROPIUM-ALBUTEROL 3 ML NEB INHALATION SCH ×4 (12:33→21:06)
--- NOTE | 2019-11-27 12:45 | P.CARDCATH ---
Date of Procedure: 11/27/19 Preoperative Diagnosis: Non-STEMI with chest pains Postoperative Diagnosis: Total occlusion of the RCA Procedure(s) Performed: Left heart cath without left ventriculography Description of Procedure: HISTORY: This is a 74-year-old female with history of ischemic or disease and multiple stent placement in multiple vessels was admitted to the hospital with complaints of chest pain and mild ST-T changes in inferior leads. Patient has positive troponins with ongoing chest pains. Patient is advised to have a cardiac cath for definitive diagnosis CONSENT:I have discussed the risks, benefits and alternative therapies for the above-mentioned procedure and for both sedation/analgesia as well as necessary blood product administration, if indicated, as they pertain to this patient. The patient has indicated understanding and acceptance of the risks and procedures discussed. PROCEDURE: Patient was brought to the lab in a fasting state. Patient was given some IV sedation. The right groin is infiltrated with lidocaine and right femoral artery was entered using Seldinger technique. A 6-Urdu catheter was left in place and selective coronary arteriography was performed. Patient tolerated the procedure well. No immediate complications were noted . Patient is waiting to have stent placement of the RCA by Dr. Gonzalez Conscious Sedation: Versed 1mg Fentanyl 0 g Duration 22minutes HEMODYNAMICS: The aortic pressure is 130/70. Left ventricle end-diastolic pressures were not measured SELECTIVE CORONARY ARTERIOGRAPHY: LEFT MAIN: The left main coronary artery is short and divides into left anterior descending and also left coronary system artery. The left coronary system is calcified THE LEFT ANTERIOR DESCENDING CORONARY ARTERY: This is a fair caliber vessel with stent in the proximal portion. There appears to be some in-stent stenosis involving the proximal area with eccentric 70-80% lesion. Rest of the vessel appears to be free of any significant occlusive disease . THE LEFT CIRCUMFLEX AND IS CORONARY ARTERY: This is a fair caliber vessel with patent stent in the midportion. The right coronary artery: This is totally occluded in the proximal portion. There are collaterals from the left system to the right LEFT VENTRICULOGRAPHY: Not performed FINAL IMPRESSION: Total occlusion of the RCA. Possible critical lesion in the proximal LAD. Patent stent in the circumflex PLAN: Dr. Gonzalez to evaluate patient for possible stenting of the RCA and also look at the knees in the LAD and if necessary do FFR PROGNOSIS: Guarded
[2019-11-27] MEDS ORDERED: IOPAMIDOL-370 100ML BTL INJ ONE ×2 (13:02→13:41)
[2019-11-27] MEDS ORDERED: MORPHINE SULFATE 4 MG/ML SYRINGE ONE (13:14)
[2019-11-27] MEDS ORDERED: FUROSEMIDE 10 MG/ML 4 ML VIAL ONE (13:14)
--- NOTE | 2019-11-27 13:16 | CONS ---
CONSULTATION This is a 74-year-old lady, a patient who sees Dr. Mccullough in the outpatient setting, came into the hospital with episode of chest discomfort suggestive of angina. Initial troponin was normal. Subsequently, she had recurrent chest pain requiring morphine while I was rounding and troponin also went up to 1.79. She has history of diabetes, multivessel stenting in the past. She has hypertension, hyperlipidemia. She apparently had diaphoresis, shortness of breath and took some nitroglycerin, felt lightheaded and came into the hospital. She was having discomfort in the chest, but there was significant improvement with the morphine. She is resting comfortably without symptoms. PAST MEDICAL HISTORY: 1. CAD with multivessel PCI. 2. Hypertension. 3. Hyperlipidemia. 4. Type 2 diabetes mellitus. 5. History of sleep apnea syndrome wears a CPAP. MEDICATIONS: At home include Lasix 40 mg b.i.d. insulin, Reglan 10 mg b.i.d., metformin 1000 mg b.i.d., lisinopril 40 mg daily, Zocor 20 mg daily, amlodipine 10 mg daily. She also takes Singulair 10 mg daily, Ranexa 500 mg b.i.d. EXAMINATION: On examination, blood pressure is 138/70, pulse rate is about 90 per minute regular HEENT unremarkable. Fundus was not examined by me. NECK: Supple there is JVD of 1 cm. No carotid bruit heart exam reveals S1, S2 with a short systolic murmur. Lungs reveal diminished air entry. Abdomen is soft, nontender. Lower extremities reveal diminished pulses. Central nervous system grossly no focal deficits but there is generalized weakness EKG revealed a sinus mechanism, mild IVCD, mild IVCD and nonspecific ST and T abnormality wave abnormality. LAB: Data revealed a troponin went up to 1.79. IMPRESSION: 1. Non ST elevation [place]. 2. Type 2 diabetes. 3. History of CAD with multivessel PCI. 4. Hypertension. 5. Hyperlipidemia. RECOMMENDATIONS: I am recommending that we continue heparin and also other medications. I am advising coronary angiography to be performed as soon as possible. Rationale, risks, benefits, and options explained to the patient. She understands all details and wishes to proceed. Dr. Mccullough will perform the procedure today. She has had a previous multivessel stenting performed by Dr. Skaf. Discussed my thoughts in detail with the patient. She will go for coronary angiography today. MMODL / IJN: [id number] /
[2019-11-27] MEDS: FUROSEMIDE 10 MG/ML 4 ML VIAL IV ONE ×2 (13:17→13:23)
[2019-11-27] MEDS: MORPHINE SULFATE 4 MG/ML SYRINGE IV ONE ×2 (13:18→13:28)
[2019-11-27] MEDS ORDERED: BIVALIRUDIN BOLUS 250 MG/50 ML IV ONE (13:22)
[2019-11-27] MEDS ORDERED: BIVALIRUDIN 250 MG in SODIUM CHLORIDE 0.9% 50 ML IV ONE (13:23)
[2019-11-27] MEDS ORDERED: NITROGLYCERIN 1000MCG/10ML SYRINGE INTRACORON ONE (13:25)
[2019-11-27] MEDS ORDERED: CLOPIDOGREL 75 MG TAB ONE (13:47)
[2019-11-27] MEDS ORDERED: CLOPIDOGREL 75 MG TAB PO ONE (13:49)
[2019-11-27 14:05] LABS: Glucose,Whole Blood 205 mg/dL (75-99)
[2019-11-27] MEDS ORDERED: ATROPINE SULFATE 0.1 MG/ML 10ML SYRINGE IV PRN (14:14)
[2019-11-27] MEDS ORDERED: ZOLPIDEM 5 MG TAB PO PRN (14:14)
[2019-11-27] MEDS ORDERED: RX INFO: IV CONTRAST WAS GIVEN 1 EACH MISC MISCELLANE PRN (14:14)
[2019-11-27] MEDS ORDERED: MAG HYDROX/AL HYDROX/SIMETH 30 ML CUP PO PRN (14:14)
--- NOTE | 2019-11-27 14:21 | P.CNPUL ---
History of Present Illness Consult date: 11/27/19 Reason for consult: dyspnea, chest pain, COPD, obstructive sleep apnea Chief complaint: Shortness of breath, wheezing History of present illness: This is a 74-year-old morbidly obese female history of sleep disorder breathing and sleep apnea patient presented into the hospital with the episode ache chest pain at the time admission and the prolapse were within normal limit her pain subsided but she had a relapse of pain followed by a rise in troponin they were nonspecific anterior lead changes are present, patient was seen evaluated by cardiovascular services had a cardiac cath and angiogram and stent has been flora nahun in LAD proximal part she has a prior history of diffuse coronary artery disease with multiple stent placement in the past as well, with respect to her hypertension dyslipidemia morbid obesity and also has sleeps disorder breathing and sleep apnea she was evaluated after cardiac cath angiogram very short of breath and wheezing Review of Systems All systems: negative Past Medical History Past Medical History: Asthma, Coronary Artery Disease (CAD), Heart Failure, COPD, Diabetes Mellitus, Hyperlipidemia, Hypertension, Myocardial Infarction (FL), Osteoarthritis (OA), Pneumonia, Renal Disease, Skin Disorder, Sleep Apnea/CPAP/BIPAP Additional Past Medical History / Comment(s): NIDDM type II, neuropathy bilateral feet, bilateral diabetic ulcers with 2ndary cellulitis, colitis with recent flare, recent r side pneumonia, renal insufficiency, IRA with no device, home oxygen at 2L/NC at HS, RLS, diarrhea. Last Myocardial Infarction Date:: 2017 History of Any Multi-Drug Resistant Organisms: None Reported Past Surgical History: Appendectomy, Breast Surgery, Cholecystectomy, Heart Catheterization, Heart Catheterization With Stent Additional Past Surgical History / Comment(s): PCI with stents, R lung thoracotomy/decortication for empyema, L breast benign bx, colonoscopy Past Anesthesia/Blood Transfusion Reactions: No Reported Reaction Additional Past Anesthesia/Blood Transfusion Reaction / Comment(s): severe claustrophobia Date of Last Stent Placement:: 11/30/2017 Past Psychological History: No Psychological Hx Reported Additional Psychological History / Comment(s): Severe claustrophobia. Pt resides alone in her home. She has 14 stair steps to get up to her bathroom/bedroom. She is established with [facility]- a nurse for wound care and PT. Smoking Status: Former smoker Past Alcohol Use History: None Reported Additional Past Alcohol Use History / Comment(s): STARTED SMOKING AGE 18 (1963) AND QUIT 1994. SMOKED 1 PPD. STATES SHE IS AN ALCOHOLIC AND QUIT DRINKING 29 yrs ago Past Drug Use History: None Reported - Past Family History Brother(s) Family Medical History: Cancer Father Family Medical History: Chest Pain / Angina Additional Family Medical History / Comment(s): Father of a FL at the age of 77yrs. Mother Family Medical History: Chest Pain / Angina Additional Family Medical History / Comment(s): Mother of a FL at the age of 74yrs. Medications and Allergies Home Medications Medication Instructions Recorded Confirmed Type Cholecalciferol [Vitamin D3 (25 1,000 unit PO DAILY 02/26/15 11/26/19 History Mcg = 1000 Iu)] Clopidogrel [Plavix] 75 mg PO DAILY 09/05/15 11/26/19 History Montelukast Sodium [Singulair] 10 mg PO HS #30 tab 10/25/15 11/26/19 Rx Nitroglycerin Sl Tabs [Nitrostat] 0.4 mg SUBLINGUAL Q5M PRN #0 tab 09/24/16 11/26/19 Rx Metoprolol Tartrate [Lopressor] 50 mg PO BID 02/09/18 11/26/19 History [place]-3 Fatty Acids [[place]-3] 2,000 mg PO DAILY 09/29/18 11/26/19 History Isosorbide Mononitrate ER [Imdur] 60 mg PO DAILY #30 tab.er.24h 11/17/18 11/26/19 Rx Dicyclomine [Bentyl] 10 mg PO DAILY 04/16/19 11/26/19 History Aspirin 81 mg PO DAILY chew 04/17/19 11/26/19 Rx Acetaminophen Tab [Tylenol] 500 mg PO Q6HR PRN tab 06/23/19 11/26/19 Rx Fluticasone/Umeclidin/Vilanter 1 puff INHALATION RT-DAILY 07/07/19 11/26/19 History [Trelegy Ellipta 100-62.5-25] Dulaglutide [Trulicity] 1.5 mg SQ KISER 08/15/19 11/26/19 History Furosemide [Lasix] 40 mg PO BID 08/15/19 11/26/19 History Insulin Aspart Protam & Aspart 30 unit SQ BID 08/15/19 11/26/19 History [NovoLOG MIX 70-30 Flexpen] Metoclopramide [Reglan] 10 mg PO QID PRN 08/15/19 11/26/19 History Sucralfate [Carafate] 1 gm PO QID 08/15/19 11/26/19 History metFORMIN HCL 1,000 mg PO BID 08/15/19 11/26/19 History Lisinopril 40 mg PO DAILY 08/30/19 11/26/19 History Simvastatin [Zocor] 20 mg PO HS 08/30/19 11/26/19 History amLODIPine [Norvasc] 10 mg PO DAILY 08/30/19 11/26/19 History HYDROcodone/APAP 7.5-325MG [Sharon 1 tab PO Q6H PRN #12 tab 09/04/19 11/26/19 Rx 7.5-325] Magnesium Oxide 400 mg PO DAILY 11/02/19 11/26/19 History Potassium Chloride ER [K-Dur 20] 20 meq PO BID 11/02/19 11/26/19 History rOPINIRole HCL [Requip] 4 mg PO TID 11/02/19 11/26/19 History Omeprazole [PriLOSEC] 40 mg PO HS #30 cap 11/08/19 11/26/19 Rx Ranolazine [Ranexa] 500 mg PO Q12HR #60 tab.er.12h 11/08/19 11/26/19 Rx Formoterol Fumarate [Perforomist] 20 mcg INHALATION RT-BID 11/26/19 11/26/19 History Levalbuterol HCl 0.63 mg INHALATION RT-QID 11/26/19 11/26/19 History Allergies Allergy/AdvReac Type Severity Reaction Status Date / Time amoxicillin [From Augmentin] Allergy Rash/Hives Verified 11/26/19 22:06 clavulanic acid Allergy Rash/Hives Verified 11/26/19 22:06 [From Augmentin] metronidazole [From Flagyl] Allergy Nausea & Verified 11/26/19 22:06 Vomiting adhesive tape AdvReac bruises,"paper Verified 11/26/19 22:06 tape is ok" albuterol AdvReac Rapid Verified 11/26/19 22:06 Heart Rate stress test injection Allergy Anaphylaxis Uncoded 11/26/19 22:07 sun dried tomatoes Allergy lip Uncoded 11/26/19 22:07 swelling Physical Exam Vitals: Vital Signs Temp Pulse Pulse Resp BP BP Pulse Ox 11/27/19 11:10 97.7 F 18 119/56 97 11/27/19 08:15 98.3 F 87 16 131/64 88 L 11/27/19 04:00 98.1 F 94 20 144/86 98 11/27/19 00:00 100 20 11/26/19 21:48 98.5 F 100 20 152/90 99 11/26/19 21:41 98.3 F 98 26 H 127/75 96 11/26/19 21:24 100 28 H 139/90 94 L 11/26/19 21:18 99 28 H 143/69 96 11/26/19 21:02 94 26 H 127/56 96 11/26/19 20:46 98 26 H 105/92 97 11/26/19 20:41 98 24 115/76 96 11/26/19 20:21 96 20 141/92 95 11/26/19 20:15 95 20 148/85 97 11/26/19 20:07 94 24 167/75 97 11/26/19 19:51 96 24 161/92 92 L 11/26/19 19:43 99.4 F 95 22 145/70 96 Intake and Output 11/26/19 11/27/19 11/27/19 22:59 06:59 14:59 Intake Total 2.1 340 Balance 2.1 340 Intake: IV 340 Intake, IV Titration 2.1 Amount Nitroglycerin-D5w Pmx 50 2.1 mg In Dextrose/Water 1 250ml.bag @ 10 MCG/MIN 3 mls/hr IV .Q24H [facility] Rx#: [id number] Oral 0 Other: Weight 117.934 kg 119.2 kg - Constitutional General appearance: disheveled, mild distress, morbidly obese - EENT Eyes: EOMI, PERRLA ENT: hard of hearing Ears: bilateral: normal - Neck Neck: normal ROM Carotids: bilateral: upstroke normal Thyroid: bilateral: normal size - Respiratory Respiratory: bilateral: diminished, wheezing - Cardiovascular Rhythm: regular Heart sounds: normal: S1, S2 - Gastrointestinal General gastrointestinal: distended, normal bowel sounds, soft - Integumentary Integumentary: decreased turgor - Neurologic Neurologic: CNII-XII intact - Musculoskeletal Musculoskeletal: gait normal, generalized weakness, strength equal bilaterally - Psychiatric Psychiatric: A&O x's 3, appropriate affect, intact judgment & insight Results - Laboratory Findings CBC and BMP: 11/26/19 19:56 11/26/19 19:56 PT/INR, D-dimer PT 9.6 sec (9.0-12.0) 11/26/19 19:56 INR 0.9 (<1.2) 11/26/19 19:56 D-Dimer 1.55 mg/L FEU (<0.60) H 11/27/19 07:11 Abnormal lab findings: Abnormal Labs 11/26/19 11/26/19 11/27/19 19:56 19:56 02:03 WBC 15.1 H Hgb 9.2 L Hct 31.8 L MCV 69.4 L MCH 20.1 L MCHC 29.0 L RDW 18.0 H Plt Count 503 H Neutrophils # 9.8 H D-Dimer Sodium 131 L Chloride 96 L Carbon Dioxide 21 L BUN 25 H Creatinine 1.21 H Glucose 198 H POC Glucose (mg/dL) Alkaline Phosphatase 138 H Troponin I 1.790 H* 11/27/19 11/27/19 11/27/19 06:03 07:11 11:29 WBC Hgb Hct MCV MCH MCHC RDW Plt Count Neutrophils # D-Dimer 1.55 H Sodium Chloride Carbon Dioxide BUN Creatinine Glucose POC Glucose (mg/dL) 203 H 218 H Alkaline Phosphatase Troponin I 11/27/19 14:03 WBC Hgb Hct MCV MCH MCHC RDW Plt Count Neutrophils # D-Dimer Sodium Chloride Carbon Dioxide BUN Creatinine Glucose POC Glucose (mg/dL) 205 H Alkaline Phosphatase Troponin I - Diagnostic Findings Chest x-ray: report reviewed, image reviewed (Right lower lobe pneumonia cannot be excluded) Assessment and Plan Assessment: Non-ST segment elevated [place] Coronary artery disease with new stent placement in proximal LAD with history of multiple stent placement Acute COPD exacerbation Right lower lobe pneumonia cannot be excluded Sleep disorder breathing and sleep apnea Hypertension and hypertensive cardiovascular disease Dyslipidemia Plan: Cardiovascular services evaluation as noted above and outlined Will continue patient on bronchodilator with DuoNeb and Pulmicort We will give her Rocephin 1 g daily IV steroids Supplemental oxygen as needed Monitor clinical course closely further recommendations pending as per clinical response of the patient Time with Patient: Greater than 30
[2019-11-27] MEDS ORDERED: MORPHINE SULFATE 2 MG/ML SYRINGE IVP STA (14:31)
[2019-11-27] MEDS ORDERED: LORazepam 2 MG/ML INJ ONE (14:49)
[2019-11-27] MEDS: LORazepam 2 MG/ML INJ IV PRN ×2 (14:53→22:23)
--- NOTE | 2019-11-27 15:09 | PTCA ---
PERCUTANEOUSTRANS CORORONARY ANGIOGRAPHY DATE OF SERVICE: 11/26/2019 PERFORMING PHYSICIAN: Freddie Caro MD. PROCEDURE PERFORMED: Successful stenting of the proximal left anterior descending artery, using 3.0 x 15 mm Xience GLEN which was post-dilated using 3.25 mm balloon with an excellent angiographic result and reduction of stenosis from 80% to 0%. INDICATION: This is a very pleasant 74-year-old female patient with prior angioplasty of the LAD, LCX, and RCA who sees Dr. Mccullough and presented to the hospital with chest discomfort and underwent a heart catheterization by Dr. Mccullough. The heart catheterization revealed critical disease involving the proximal left anterior descending artery. Because of that, we decided to pursue an intervention on the LAD. APPROACH: Right common femoral artery. COMPLICATION: None. LEVEL OF SEDATION: Moderate with sedation length of 47 minutes. PROCEDURE DESCRIPTION: Please refer to diagnostic heart catheterization was performed by Dr. Mccullough. Anticoagulation was initiated using Angiomax. Subsequently, I did engage the left main using JL3.5 guide. I did wire the LAD using a run-through wire. Balloon angioplasty was achieved by 2.5 mm AngioSculpt balloon. After that, I deployed a 3.0 x 15 mm Xience GLEN where the stent was positioned under fluoroscopy guidance and deployed under 14 atmospheres for 20 seconds. I post-dilated the stent using 3.25 mm NC balloon which was inflated under 22 atmospheres for 20 seconds with the following angiogram showed good angiographic results and the procedure was completed without any complication. MMODL / IJN: [id number] /
--- NOTE | 2019-11-27 15:12 | XR ---
EXAMINATION TYPE: XR chest 1V DATE OF EXAM: 11/27/2019 HISTORY: Shortness of breath. COMPARISON: 11/26/2019 TECHNIQUE: Single view of the chest is submitted. FINDINGS: Demonstrated are scattered senescent parenchymal change. Noted are mixed interstitial and alveolar infiltrates with interval progression identified. Small rig ht-sided pleural effusion. The heart is stable. Hilar and mediastinal structures are within normal limits. Degenerative changes are seen of the dorsal spine. IMPRESSION: 1. Noted are mixed interstitial and alveolar infiltrates with interval progression identified. Small right-sided pleural effusion.
[2019-11-27] MEDS ORDERED: LEVALBUTEROL HCL 0.63 MG INHALATION SCH (16:00)
[2019-11-27 16:01] LABS: Glucose,Whole Blood 315 mg/dL (75-99)
[2019-11-27] MEDS: FUROSEMIDE 40 MG TAB PO SCH (16:13)
[2019-11-27 16:14] LABS: ABG Base Excess 0.5 mmol/L; ABG HCO3 26 mmol/L (21-25); ABG Oxygen Saturation 89.7 % (94-97); ABG PCO2 44 mmHg (35-45); ABG PH 7.38 (7.35-7.45); ABG PO2 62 mmHg (83-108); ABG TCO2 27 mmol/L (19-24); Allen Test Performed? Yes
[2019-11-27] MEDS ORDERED: METOPROLOL TARTRATE 5 MG/5 ML VIAL IVP SCH (16:45)
[2019-11-27] MEDS: methylPREDNISolone SOD SUCCI 40 MG/ML 1 ML VIAL IV SCH ×2 (16:46→22:04)
[2019-11-27] MEDS: SUCRALFATE 1 GM TAB PO SCH ×2 (17:11→21:52)
--- NOTE | 2019-11-27 17:11 | P.PN ---
Subjective Progress Note Date: 11/27/19 (Critical care time 35 minutes) Principal diagnosis: Acute on chronic systolic heart failure, acute respiratory failure, altered mental status, pulmonary edema, Rapid response was called on this patient, patient was extremely short of breath, 40 mg of Lasix have been given IV followed by placement of Jauregui's catheter 1.1 L of urine has been evacuated patient remains very short of breath and lethargic transferred to the ICU does open eyes due to simple commands recommended using a BiPAP she declined continue to wear 100% nonrebreather mask subsequently switched to high flow oxygen, chest x-ray reviewed significant change compared to admit x-ray consistent with fluid overload and pulmonary edema, plan is to give another dose of Lasix later on tonight and also check a chemistry if patient becomes more somnolent and lethargic we'll use the BiPAP, arterial blood gases revealed pH of 7.38 pCO2 44 pO2 only 6200% oxygen blood drink was went up to 315, lactic acid 4.6 BNP is 7440 This is a 74-year-old morbidly obese female history of sleep disorder breathing and sleep apnea patient presented into the hospital with the episode ache chest pain at the time admission and the prolapse were within normal limit her pain subsided but she had a relapse of pain followed by a rise in troponin they were nonspecific anterior lead changes are present, patient was seen evaluated by cardiovascular services had a cardiac cath and angiogram and stent has been placed in LAD proximal part she has a prior history of diffuse coronary artery disease with multiple stent placement in the past as well, with respect to her hypertension dyslipidemia morbid obesity and also has sleeps disorder breathing and sleep apnea she was evaluated after cardiac cath angiogram very short of breath and wheezing Objective - Vital Signs Vital signs: Vital Signs Temp 97.7 F 11/27/19 11:10 Pulse 90 11/27/19 17:00 Resp 29 H 11/27/19 17:00 BP 90/36 11/27/19 16:50 Pulse Ox 92 L 11/27/19 17:00 Intake & Output 11/26/19 11/27/19 11/27/19 18:59 06:59 18:59 Intake Total 2.1 390 Output Total 0 Balance 2.1 390 Weight 119.2 kg Intake: IV 390 cefTRIAXone 1 gm In 50 Sodium Chloride 0.9% 50 ml @ 100 mls/hr IVPB Q24HR [facility] Rx#:[id number] Intake, IV Titration 2.1 Amount Nitroglycerin-D5w Pmx 50 2.1 mg In Dextrose/Water 1 250ml.bag @ 10 MCG/MIN 3 mls/hr IV .Q24H [facility] Rx#: [id number] Oral 0 Output: Urine 0 Other: # Voids 0 - Exam - Constitutional General appearance: disheveled, moderate to severe respiratory distress, morbidly obese - EENT Eyes: EOMI, PERRLA ENT: hard of hearing Ears: bilateral: normal - Neck Neck: normal ROM Carotids: bilateral: upstroke normal Thyroid: bilateral: normal size - Respiratory Respiratory: bilateral: diminished, wheezing, bilateral crackles - Cardiovascular Rhythm: regular Heart sounds: normal: S1, S2 - Gastrointestinal General gastrointestinal: distended, normal bowel sounds, soft - Integumentary Integumentary: decreased turgor - Neurologic Neurologic: CNII-XII intact - Musculoskeletal Musculoskeletal: gait normal, generalized weakness, strength equal bilaterally - Psychiatric Psychiatric: A&O x's 3, somnolent but arousable appropriate affect, intact judgment & insight - Labs CBC & Chem 7: 11/26/19 19:56 11/26/19 19:56 Labs: Abnormal Lab Results - Last 24 Hours (Table) 11/26/19 11/26/19 11/27/19 Range/Units 19:56 19:56 02:03 WBC 15.1 H (3.8-10.6) k/uL Hgb 9.2 L (11.4-16.0) gm/dL Hct 31.8 L (34.0-46.0) % MCV 69.4 L (80.0-100.0) fL MCH 20.1 L (25.0-35.0) pg MCHC 29.0 L (31.0-37.0) g/dL RDW 18.0 H (11.5-15.5) % Plt Count 503 H (150-450) k/uL Neutrophils # 9.8 H (1.3-7.7) k/uL D-Dimer (<0.60) mg/L FEU ABG pO2 (83-108) mmHg ABG HCO3 (21-25) mmol/L ABG Total CO2 (19-24) mmol/L ABG O2 Saturation (94-97) % Sodium 131 L (137-145) mmol/L Chloride 96 L (98-107) mmol/L Carbon Dioxide 21 L (22-30) mmol/L BUN 25 H (7-17) mg/dL Creatinine 1.21 H (0.52-1.04) mg/dL Glucose 198 H (74-99) mg/dL POC Glucose (mg/dL) (75-99) mg/dL Plasma Lactic Acid Mesfin (0.7-2.0) mmol/L Alkaline Phosphatase 138 H (38-126) U/L Troponin I 1.790 H* (0.000-0.034) ng/mL 11/27/19 11/27/19 11/27/19 Range/Units 06:03 07:11 11:29 WBC (3.8-10.6) k/uL Hgb (11.4-16.0) gm/dL Hct (34.0-46.0) % MCV (80.0-100.0) fL MCH (25.0-35.0) pg MCHC (31.0-37.0) g/dL RDW (11.5-15.5) % Plt Count (150-450) k/uL Neutrophils # (1.3-7.7) k/uL D-Dimer 1.55 H (<0.60) mg/L FEU ABG pO2 (83-108) mmHg ABG HCO3 (21-25) mmol/L ABG Total CO2 (19-24) mmol/L ABG O2 Saturation (94-97) % Sodium (137-145) mmol/L Chloride (98-107) mmol/L Carbon Dioxide (22-30) mmol/L BUN (7-17) mg/dL Creatinine (0.52-1.04) mg/dL Glucose (74-99) mg/dL POC Glucose (mg/dL) 203 H 218 H (75-99) mg/dL Plasma Lactic Acid Mesfin (0.7-2.0) mmol/L Alkaline Phosphatase (38-126) U/L Troponin I (0.000-0.034) ng/mL 11/27/19 11/27/19 11/27/19 Range/Units 14:03 14:42 15:22 WBC (3.8-10.6) k/uL Hgb (11.4-16.0) gm/dL Hct (34.0-46.0) % MCV (80.0-100.0) fL MCH (25.0-35.0) pg MCHC (31.0-37.0) g/dL RDW (11.5-15.5) % Plt Count (150-450) k/uL Neutrophils # (1.3-7.7) k/uL D-Dimer (<0.60) mg/L FEU ABG pO2 62 L (83-108) mmHg ABG HCO3 26 H (21-25) mmol/L ABG Total CO2 27 H (19-24) mmol/L ABG O2 Saturation 89.7 L (94-97) % Sodium (137-145) mmol/L Chloride (98-107) mmol/L Carbon Dioxide (22-30) mmol/L BUN (7-17) mg/dL Creatinine (0.52-1.04) mg/dL Glucose (74-99) mg/dL POC Glucose (mg/dL) 205 H (75-99) mg/dL Plasma Lactic Acid Mesfin 4.6 H* (0.7-2.0) mmol/L Alkaline Phosphatase (38-126) U/L Troponin I (0.000-0.034) ng/mL 11/27/19 Range/Units 15:41 WBC (3.8-10.6) k/uL Hgb (11.4-16.0) gm/dL Hct (34.0-46.0) % MCV (80.0-100.0) fL MCH (25.0-35.0) pg MCHC (31.0-37.0) g/dL RDW (11.5-15.5) % Plt Count (150-450) k/uL Neutrophils # (1.3-7.7) k/uL D-Dimer (<0.60) mg/L FEU ABG pO2 (83-108) mmHg ABG HCO3 (21-25) mmol/L ABG Total CO2 (19-24) mmol/L ABG O2 Saturation (94-97) % Sodium (137-145) mmol/L Chloride (98-107) mmol/L Carbon Dioxide (22-30) mmol/L BUN (7-17) mg/dL Creatinine (0.52-1.04) mg/dL Glucose (74-99) mg/dL POC Glucose (mg/dL) 315 H (75-99) mg/dL Plasma Lactic Acid Mesfin (0.7-2.0) mmol/L Alkaline Phosphatase (38-126) U/L Troponin I (0.000-0.034) ng/mL Assessment and Plan Assessment: Acute pulmonary edema Acute hypoxic respiratory failure Altered mental status multifactorial related to benzodiazepine given for the procedure as well as sleep apnea and pulmonary edema Non-ST segment elevated [place] Coronary artery disease with new stent placement in proximal LAD with history of multiple stent placement Acute COPD exacerbation Right lower lobe pneumonia cannot be excluded Sleep disorder breathing and sleep apnea Hypertension and hypertensive cardiovascular disease Dyslipidemia Plan: Continue diuresis as planned noted above BiPAP/air wall as tolerated We'll observe closely in ICU [facility] evaluation as noted above and outlined Will continue patient on bronchodilator with DuoNeb and Pulmicort Rocephin 1 g daily IV steroids Supplemental oxygen as needed to keep saturation over 92% Monitor clinical course closely further recommendations pending as per clinical response of the patient Time with Patient: Greater than 30
[2019-11-27] MEDS ORDERED: METOPROLOL TARTRATE 5 MG/5 ML VIAL IVP ONE (17:13)
[2019-11-27 17:17] LABS: Glucose,Whole Blood 264 mg/dL (75-99)
[2019-11-27] MEDS ORDERED: FUROSEMIDE 10 MG/ML 4 ML VIAL IV ONE (18:00)
[2019-11-27] MEDS ORDERED: FORMOTEROL FUMARATE 20 MCG/2 ML NEBU INHALATION SCH (20:00)
[2019-11-27] MEDS ORDERED: BUDESONIDE 0.5 MG/2 ML NEBU INHALATION SCH (20:00)
[2019-11-27] MEDS ORDERED: METOPROLOL TARTRATE 50 MG TAB PO SCH (21:00)
[2019-11-27] MEDS ORDERED: ATORVASTATIN 10 MG TAB PO SCH (21:00)
[2019-11-27 21:01] LABS: Calcium 9.3 mg/dL (8.4-10.2); Potassium 4.8 mmol/L (3.5-5.1)
[2019-11-27 21:09] LABS: Glucose,Whole Blood 285 mg/dL (75-99)
[2019-11-27] MEDS: SYMBICORT 80-4.5 MCG INHALER INHALATION SCH (21:44)
[2019-11-27] MEDS ORDERED: INSULIN ASPART (NovoLOG) 100 UNIT/ML VIAL SQ ONE (21:45)
[2019-11-27] MEDS: PANTOPRAZOLE 40 MG TABLET PO SCH (21:52)
[2019-11-27] MEDS: POTASSIUM CHLORIDE ER 20 MEQ TAB.ER PO SCH (21:52)
[2019-11-27] MEDS: MONTELUKAST 10 MG TAB PO SCH (21:52)
[2019-11-27] MEDS: RANOLAZINE 500 MG TAB.ER.12H PO SCH (21:59)
[2019-11-27] MEDS: INSULN ASP PRT/INSULIN ASPART 100 UNIT/ML 10 ML VIAL SQ SCH (21:59)
--- NOTE | 2019-11-27 23:32 | HP ---
HISTORY AND PHYSICAL A 74-year-old white female who came in today with elevated troponin and recurrent chest pain. She was recently seen by Cardiology in the hospital less than 2 weeks ago and was cleared for worsening chest pain. 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 She had stenting of the proximal LAD, 80% to 0%. She went to the ICU due to shortness of breath. She is on Accu-Chek protocol. She went to ICU for worsening breathing tonight, status post stent placement. She has diabetes mellitus, hypertensive, COPD, asthma, renal disease, skin disorder, sleep apnea, colitis, obstructive sleep apnea. SURGERIES: Appendectomy, breast surgery, cholecystectomy, heart catheterization with stents, PCI with stents, right lung thoracotomy, decortication for empyema, left breast benign biopsy, colonoscopy. She has claustrophobia. She smoked a pack a day, quit in 1994. She was an alcoholic, quit 29 years ago. FAMILY HISTORY: Brother had cancer. Father chest pain and angina. Mother chest pain and angina. HOME MEDICATIONS: See list. REVIEW OF SYSTEMS: Fourteen-point review of systems negative except for mentioned in HPI. PHYSICAL EXAMINATION: Temperature 98 to 99, pulse 90s, respiratory rate 18 to 22, blood pressure 120s to 160s over 70s to 90s, O2 of 94% to 96% on room air. CARDIOVASCULAR: S1, S2. Cardiac regular rate and rhythm. LUNGS: Mild wheeze. ABDOMEN: Soft, nontender. EXTREMITIES: No cyanosis, clubbing, edema. White count 15.1, hemoglobin 9.2, BUN 25, creatinine to 1.21, sodium 131. ASSESSMENT: 1. [id number] elevated myocardial infarction. 2. Coronary artery disease with new stent in the LAD, which accounts for chest pain for a long time. 3. Acute chronic obstructive pulmonary disease exacerbation. 4. Right lower lobe pneumonia. 5. Possibly obstructive sleep apnea. 6. Hypertensive. 7. Dyslipidemia. Continue bronchodilators, DuoNeb, Pulmicort, Rocephin for antibiotics, IV steroids, sliding scale for sugar. ICU TIME: 60 minutes. Prognosis guarded. Much better since she had a stent in her LAD. MMODL / IJN: [id number] /
[2019-11-28 02:54] LABS: Glucose,Whole Blood 256 mg/dL (75-99)
[2019-11-28 04:29] LABS: Anisocytosis Slight; Basophils % (A) 0 %; Eosinophils % (A) 0 %; HCT 33.5 % (34.0-46.0); HGB 9.6 gm/dL (11.4-16.0); Hypochromasia Marked; Lymphocytes # (A) 1.2 k/uL (1.0-4.8); Lymphocytes % (A) 8 %; MCH 20.2 pg (25.0-35.0); MCHC 28.6 g/dL (31.0-37.0); MCV 70.9 fL (80.0-100.0); Mean Platelet Volume 7.1; Microcytosis Marked; Monocytes # (A) 0.4 k/uL (0-1.0); Monocytes % (A) 2 %; Neutrophils # (A) 14.6 k/uL (1.3-7.7); Neutrophils % (A) 89 %; Platelet Count 502 k/uL (150-450); Poikilocytosis Slight; RBC 4.73 m/uL (3.80-5.40); WBC 16.3 k/uL (3.8-10.6)
[2019-11-28 04:46] LABS: Calcium 9.4 mg/dL (8.4-10.2); Potassium 5.4 mmol/L (3.5-5.1)
[2019-11-28 06:40] LABS: Glucose,Whole Blood 303 mg/dL (75-99)
[2019-11-28] MEDS: INSULIN ASPART (NovoLOG) 100 UNIT/ML VIAL SQ SCH ×4 (06:43→20:58)
[2019-11-28] MEDS: METOCLOPRAMIDE 10 MG TAB PO PRN (07:11)
[2019-11-28] MEDS: SUCRALFATE 1 GM TAB PO SCH ×4 (07:11→21:00)
[2019-11-28] MEDS ORDERED: IPRATROPIUM 0.5 MG/2.5 ML NEBU INHALATION SCH (08:00)
--- NOTE | 2019-11-28 08:46 | XR ---
EXAMINATION TYPE: XR chest 1V DATE OF EXAM: 11/28/2019 COMPARISON: 11/27/2019 INDICATION: Short of breath TECHNIQUE: Single frontal view of the chest is obtained. FINDINGS: The heart size is borderline prominent. The pulmonary vasculature is prominent. There is small bilateral pleural effusions. Mild left lower lobe infiltrate is present. Findings are worsening from comparison. IMPRESSION: 1. Clinical correlation recommended for worsening congestive heart failure.
[2019-11-28] MEDS: IPRATROPIUM-ALBUTEROL 3 ML NEB INHALATION SCH ×4 (08:57→20:14)
[2019-11-28] MEDS: SYMBICORT 80-4.5 MCG INHALER INHALATION SCH ×2 (08:58→20:14)
[2019-11-28] MEDS ORDERED: FATTY ACIDS PO SCH (09:00)
[2019-11-28] MEDS ORDERED: amLODIPine 10 MG TAB PO SCH (09:00)
[2019-11-28] MEDS ORDERED: lisinopriL 20 MG TAB PO SCH (09:00)
[2019-11-28] MEDS ORDERED: OMEGA PO SCH (09:00)
--- NOTE | 2019-11-28 09:09 | P.PN ---
Subjective Progress Note Date: 11/28/19 (Critical care time 35 minutes) Principal diagnosis: Acute on chronic systolic heart failure, acute respiratory failure, altered mental status, pulmonary edema, 11/28/2019, patient seen and evaluated examined during the rounds labs reviewed medications reviewed, patient is still very short of breath tachypneic on high flow oxygen, labs from today's reviewed white cell count is up to 16,000, hemoglobin is 9.6, sodium is 132 potential 5.4, BUN/creatinine is 28 1.02, chest x-ray reviewed consistent with congestive heart failure and pulmonary edema findings along with left lower lobe pneumonia is seen patient remained short of breath however able to complete full sentences, we'll continue to observe closely in ICU, continue bronchodilators and IV steroids and antibiotics and gentle diuresis, repeat labs including x-ray for tomorrow Rapid response was called on this patient, patient was extremely short of breath, 40 mg of Lasix have been given IV followed by placement of Jauregui's catheter 1.1 L of urine has been evacuated patient remains very short of breath and lethargic transferred to the ICU does open eyes due to simple commands recommended using a BiPAP she declined continue to wear 100% nonrebreather mask subsequently switched to high flow oxygen, chest x-ray reviewed significant change compared to admit x-ray consistent with fluid overload and pulmonary becca ma, plan is to give another dose of Lasix later on tonight and also check a chemistry if patient becomes more somnolent and lethargic we'll use the BiPAP, arterial blood gases revealed pH of 7.38 pCO2 44 pO2 only 6200% oxygen blood drink was went up to 315, lactic acid 4.6 BNP is 7440 This is a 74-year-old morbidly obese female history of sleep disorder breathing and sleep apnea patient presented into the hospital with the episode ache chest pain at the time admission and the prolapse were within normal limit her pain subsided but she had a relapse of pain followed by a rise in troponin they were nonspecific anterior lead changes are present, patient was seen evaluated by cardiovascular services had a cardiac cath and angiogram and stent has been placed in LAD proximal part she has a prior history of diffuse coronary artery disease with multiple stent placement in the past as well, with respect to her hypertension dyslipidemia morbid obesity and also has sleeps disorder breathing and sleep apnea she was evaluated after cardiac cath angiogram very short of breath and wheezing Objective - Vital Signs Vital signs: Vital Signs Temp 98.2 F 11/28/19 04:00 Pulse 82 11/28/19 08:59 Resp 23 11/28/19 07:00 BP 97/69 11/28/19 07:00 Pulse Ox 95 11/28/19 07:00 Intake & Output 11/27/19 11/28/19 11/28/19 18:59 06:59 18:59 Intake Total 390 110 10 Output Total 1675 757 60 Balance -1285 -647 -50 Weight 112 kg Intake: IV 390 110 10 .9 110 10 cefTRIAXone 1 gm In 50 Sodium Chloride 0.9% 50 ml @ 100 mls/hr IVPB Q24HR [facility] Rx#:[id number] Oral 0 Output: Urine 2180 757 60 Other: Voiding Method Indwelling Catheter Indwelling Catheter - Exam - Constitutional General appearance: disheveled, moderate to severe respiratory distress, morbidly obese - EENT Eyes: EOMI, PERRLA ENT: hard of hearing Ears: bilateral: normal - Neck Neck: normal ROM Carotids: bilateral: upstroke normal Thyroid: bilateral: normal size - Respiratory Respiratory: bilateral: diminished, wheezing, bilateral crackles - Cardiovascular Rhythm: regular Heart sounds: normal: S1, S2 - Gastrointestinal General gastrointestinal: distended, normal bowel sounds, soft - Integumentary Integumentary: decreased turgor - Neurologic Neurologic: CNII-XII intact - Musculoskeletal Musculoskeletal: gait normal, generalized weakness, strength equal bilaterally - Psychiatric Psychiatric: A&O x's 3, somnolent but arousable appropriate affect, intact judgment & insight - Labs CBC & Chem 7: 11/28/19 03:34 11/28/19 03:34 Labs: Abnormal Lab Results - Last 24 Hours (Table) 11/27/19 11/27/19 11/27/19 Range/Units 11:29 14:03 14:42 WBC (3.8-10.6) k/uL Hgb (11.4-16.0) gm/dL Hct (34.0-46.0) % MCV (80.0-100.0) fL MCH (25.0-35.0) pg MCHC (31.0-37.0) g/dL RDW (11.5-15.5) % Plt Count (150-450) k/uL Neutrophils # (1.3-7.7) k/uL ABG pO2 (83-108) mmHg ABG HCO3 (21-25) mmol/L ABG Total CO2 (19-24) mmol/L ABG O2 Saturation (94-97) % Sodium (137-145) mmol/L Potassium (3.5-5.1) mmol/L Chloride (98-107) mmol/L BUN (7-17) mg/dL Glucose (74-99) mg/dL POC Glucose (mg/dL) 218 H 205 H (75-99) mg/dL Plasma Lactic Acid Mesfin 4.6 H* (0.7-2.0) mmol/L Troponin I (0.000-0.034) ng/mL 11/27/19 11/27/19 11/27/19 Range/Units 15:22 15:41 17:16 WBC (3.8-10.6) k/uL Hgb (11.4-16.0) gm/dL Hct (34.0-46.0) % MCV (80.0-100.0) fL MCH (25.0-35.0) pg MCHC (31.0-37.0) g/dL RDW (11.5-15.5) % Plt Count (150-450) k/uL Neutrophils # (1.3-7.7) k/uL ABG pO2 62 L (83-108) mmHg ABG HCO3 26 H (21-25) mmol/L ABG Total CO2 27 H (19-24) mmol/L ABG O2 Saturation 89.7 L (94-97) % Sodium (137-145) mmol/L Potassium (3.5-5.1) mmol/L Chloride (98-107) mmol/L BUN (7-17) mg/dL Glucose (74-99) mg/dL POC Glucose (mg/dL) 315 H 264 H (75-99) mg/dL Plasma Lactic Acid Mesfin (0.7-2.0) mmol/L Troponin I (0.000-0.034) ng/mL 11/27/19 11/27/19 11/27/19 Range/Units 17:37 20:35 21:08 WBC (3.8-10.6) k/uL Hgb (11.4-16.0) gm/dL Hct (34.0-46.0) % MCV (80.0-100.0) fL MCH (25.0-35.0) pg MCHC (31.0-37.0) g/dL RDW (11.5-15.5) % Plt Count (150-450) k/uL Neutrophils # (1.3-7.7) k/uL ABG pO2 (83-108) mmHg ABG HCO3 (21-25) mmol/L ABG Total CO2 (19-24) mmol/L ABG O2 Saturation (94-97) % Sodium 133 L (137-145) mmol/L Potassium (3.5-5.1) mmol/L Chloride 96 L (98-107) mmol/L BUN 24 H (7-17) mg/dL Glucose 263 H (74-99) mg/dL POC Glucose (mg/dL) 285 H (75-99) mg/dL Plasma Lactic Acid Mesfin 2.3 H* (0.7-2.0) mmol/L Troponin I (0.000-0.034) ng/mL 11/28/19 11/28/19 11/28/19 Range/Units 02:52 03:34 03:34 WBC 16.3 H (3.8-10.6) k/uL Hgb 9.6 L (11.4-16.0) gm/dL Hct 33.5 L (34.0-46.0) % MCV 70.9 L (80.0-100.0) fL MCH 20.2 L (25.0-35.0) pg MCHC 28.6 L (31.0-37.0) g/dL RDW 18.0 H (11.5-15.5) % Plt Count 502 H (150-450) k/uL Neutrophils # 14.6 H (1.3-7.7) k/uL ABG pO2 (83-108) mmHg ABG HCO3 (21-25) mmol/L ABG Total CO2 (19-24) mmol/L ABG O2 Saturation (94-97) % Sodium 132 L (137-145) mmol/L Potassium 5.4 H (3.5-5.1) mmol/L Chloride 97 L (98-107) mmol/L BUN 28 H (7-17) mg/dL Glucose 245 H (74-99) mg/dL POC Glucose (mg/dL) 256 H (75-99) mg/dL Plasma Lactic Acid Mesfin (0.7-2.0) mmol/L Troponin I (0.000-0.034) ng/mL 11/28/19 11/28/19 Range/Units 03:34 06:38 WBC (3.8-10.6) k/uL Hgb (11.4-16.0) gm/dL Hct (34.0-46.0) % MCV (80.0-100.0) fL MCH (25.0-35.0) pg MCHC (31.0-37.0) g/dL RDW (11.5-15.5) % Plt Count (150-450) k/uL Neutrophils # (1.3-7.7) k/uL ABG pO2 (83-108) mmHg ABG HCO3 (21-25) mmol/L ABG Total CO2 (19-24) mmol/L ABG O2 Saturation (94-97) % Sodium (137-145) mmol/L Potassium (3.5-5.1) mmol/L Chloride (98-107) mmol/L BUN (7-17) mg/dL Glucose (74-99) mg/dL POC Glucose (mg/dL) 303 H (75-99) mg/dL Plasma Lactic Acid Mesfin (0.7-2.0) mmol/L Troponin I 22.900 H* (0.000-0.034) ng/mL Assessment and Plan Assessment: Acute pulmonary edema Acute hypoxic respiratory failure Altered mental status multifactorial related to benzodiazepine given for the procedure as well as sleep apnea and pulmonary edema, improved now Non-ST segment elevated [place] Coronary artery disease with new stent placement in proximal LAD with history of multiple stent placement, together she have total of 6 to stand now Acute COPD exacerbation Left lower lobe pneumonia Sleep disorder breathing and sleep apnea Hypertension and hypertensive cardiovascular disease Dyslipidemia Plan: Continue diuresis as planned noted above BiPAP/air vo/high flow oxygen as tolerated and keep saturation around 92% and above We'll observe closely in ICU Repeat labs and x-ray tomorrow Continue IV steroids antibiotics bronchodilators for now Keep eyes and nose are negative side 500-1 L Cardiovascular services evaluation as noted above and outlined Will continue patient on bronchodilator with DuoNeb and Pulmicort Rocephin 1 g daily IV steroids Supplemental oxygen as needed to keep saturation over 92% Monitor clinical course closely further recommendations pending as per clinical response of the patient Time with Patient: Greater than 30
[2019-11-28] MEDS: ISOSORBIDE MONONITRATE ER 60 MG TAB.ER.24H PO SCH (09:29)
[2019-11-28] MEDS: methylPREDNISolone SOD SUCCI 40 MG/ML 1 ML VIAL IV SCH ×2 (09:29→20:59)
[2019-11-28] MEDS: FUROSEMIDE 40 MG TAB PO SCH ×2 (09:29→17:01)
[2019-11-28] MEDS: MAGNESIUM OXIDE 400 MG TAB PO SCH (09:29)
[2019-11-28] MEDS: ASPIRIN 81 MG PO SCH (09:29)
[2019-11-28] MEDS: METOPROLOL TARTRATE 25 MG TAB PO SCH ×3 (09:29→21:00)
[2019-11-28] MEDS: CLOPIDOGREL 75 MG TAB PO SCH (09:29)
[2019-11-28] MEDS: lisinopriL 10 MG TAB PO SCH ×2 (09:31→21:02)
[2019-11-28] MEDS: POTASSIUM CHLORIDE ER 20 MEQ TAB.ER PO SCH (09:41)
[2019-11-28] MEDS: INSULN ASP PRT/INSULIN ASPART 100 UNIT/ML 10 ML VIAL SQ SCH ×2 (09:51→20:52)
[2019-11-28 10:26] VITALS: BMI 38.7
[2019-11-28] MEDS: DICYCLOMINE 10 MG CAP PO SCH (10:32)
[2019-11-28] MEDS: RANOLAZINE 500 MG TAB.ER.12H PO SCH ×2 (10:33→21:07)
[2019-11-28] MEDS: rOPINIRole HCL 4 MG TABLET PO SCH ×3 (10:33→21:00)
[2019-11-28] MEDS: HYDROcodone/APAP 7.5-325MG 1 EACH TAB PO PRN (10:33)
--- NOTE | 2019-11-28 10:41 | PN ---
PROGRESS NOTE Mrs Brand is a patient who has significant CAD, diabetes. She had a stenting of LAD, which was the restenotic lesion by Dr. Caro. Post procedure, she had some shortness of breath, but this morning she feels very well. She has no chest pain. Breathing is easier. Troponin has gone up to 22. She has a total RCA occlusion, patent circumflex and stent in the RCA, which was redilated yesterday and re-stented. Vitals are stable., no JVD S1, S2 heard normally. ESM audible. Lungs revealed diminished air entry. Abdomen and lower extremity exam unchanged. I am recommending a repeat echocardiogram and another troponin. I will decrease the Lopressor to 25 mg t.i.d. and decrease lisinopril in view of hyperkalemia and also discontinue potassium supplements. EKG shows Inf ST abn Plan is to continue current medical regimen. I explained to the patient that she did have a non-ST elevation DC. We will continue medical therapy for now and see how she does. MMODL / IJN: [id number] / MTDD
[2019-11-28 11:51] LABS: Glucose,Whole Blood 222 mg/dL (75-99)
--- NOTE | 2019-11-28 13:47 | ECHOF ---
Referral Reason:post cardiac stenting MEASUREMENTS -------- HEIGHT: 170.2 cm WEIGHT: 111.6 kg BP: RVIDd: 3.5 cm (< 3.3) IVSd: 1.3 cm (0.6 - 1.1) LVIDd: 5.1 cm (3.9 - 5.3) LVPWd: 1.4 cm (0.6 - 1.1) IVSs: 1.6 cm LVIDs: 4.0 cm LVPWs: 1.9 cm LA Diam: 5.5 cm (2.7 - 3.8) LAESV Index (A-L): 40.71 ml/m Ao Diam: 3.1 cm (2.0 - 3.7) AV Cusp: 1.7 cm (1.5 - 2.6) LA Diam: 4.1 cm (2.7 - 3.8) MV EXCURSION: 16.009 mm (> 18.000) MV EF SLOPE: 38 mm/s (70 - 150) EPSS: 1.5 cm MV E Dorian: 0.68 m/s MV DecT: 188 ms MV A Odrian: 0.76 m/s MV E/A Ratio: 0.90 RAP: 5.00 mmHg RVSP: 10.49 mmHg FINDINGS -------- Sinus rhythm. This was a techncally difficult study with suboptimal views, , Lumason utilized for enhancement of im ages. The left ventricular size is normal. There is mild concentric left ventricular hypertrophy. Overa ll left ventricular systolic function is moderate-severely impaired with, an EF between 30 - 35 %. Mid anterior LV wall motion is hypokinetic. Mid anteroseptal LV wall motion is hypokinetic. Api jan anterior LV wall motion is hypokinetic. Apical lateral LV wall motion is hypokinetic. Apica l inferior LV wall motion is hypokinetic. Apical septum LV wall motion is hypokinetic. The right ventricle is mildly enlarged. LA is severely dilated >40 ml/m2 The right atrial size is normal. 5.0mg OF Lumason UTLIZED: 2 OR MORE WALL SEGMENTS NOT VISUALIZED. There is mild aortic valve sclerosis. Mild mitral annular calcification present. Mild mitral regurgitation is present. Mild tricuspid regurgitation present. Right ventricular systolic pressure is normal at < 35 mmHg. There is no pulmonic regurgitation present. The aortic root size is normal. There is no pericardial effusion. CONCLUSIONS -------- 1. This was a techncally difficult study with suboptimal views, , Lumason utilized for enhancement of images. 2. There is mild concentric left ventricular hypertrophy. 3. Overall left ventricular systolic function is moderate-severely impaired with, an EF between 30 - 35 %. 4. Mid anterior LV wall motion is hypokinetic. 5. Mid anteroseptal LV wall motion is hypokinetic. 6. Apical anterior LV wall motion is hypokinetic. 7. Apical lateral LV wall motion is hypokinetic. 8. Apical inferior LV wall motion is hypokinetic. 9. Apical septum LV wall motion is hypokinetic. 10. The right ventricle is mildly enlarged. 11. LA is severely dilated >40 ml/m2 12. 5.0mg OF Lumason UTLIZED: 2 OR MORE WALL SEGMENTS NOT VISUALIZED. 13. There is mild aortic valve sclerosis. 14. Mild mitral annular calcification present. 15. Mild mitral regurgitation is present. 16. Mild tricuspid regurgitation present. 17. There is no pericardial effusion. HAT MODEL: Sarah England RDCS
[2019-11-28 16:54] LABS: Glucose,Whole Blood 239 mg/dL (75-99)
[2019-11-28] MEDS: ATORVASTATIN 40 MG TAB PO SCH (20:59)
[2019-11-28] MEDS: MONTELUKAST 10 MG TAB PO SCH (20:59)
[2019-11-28] MEDS: PANTOPRAZOLE 40 MG TABLET PO SCH (20:59)
[2019-11-28 21:21] LABS: Glucose,Whole Blood 251 mg/dL (75-99)
--- NOTE | 2019-11-28 23:11 | PN ---
PROGRESS NOTE Status post PTCA of the LAD 80% ejection fraction 30% to 35%, hypokinetic left ventricular wall and mid anterior septal LV wall. Left atrium severely dilated. She has mild regurgitation of multiple valves. Cardiology is stabilizing her, trying to wean her off oxygen, as she went into cardiogenic shock, status post PTCA and non- STEMI. Remains in the ICU. Breathing is easier. Ejection fraction 30% to 35%. Prognosis guarded. Wean oxygen. PT/OT. Possible discharge home soon; 24 to 48 hours. Medications reviewed. ICU time 20 minutes. MMPERIL / IJN: [id number] /
[2019-11-29 04:37] LABS: Anisocytosis Slight; Basophils % (A) 0 %; Eosinophils # (A) 0.1 k/uL (0-0.7); Eosinophils % (A) 0 %; HCT 30.8 % (34.0-46.0); HGB 9.1 gm/dL (11.4-16.0); Hypochromasia Marked; Lymphocytes # (A) 1.2 k/uL (1.0-4.8); Lymphocytes % (A) 8 %; MCH 21.4 pg (25.0-35.0); MCHC 29.5 g/dL (31.0-37.0); MCV 72.4 fL (80.0-100.0); Mean Platelet Volume 6.7; Microcytosis Moderate; Monocytes # (A) 0.4 k/uL (0-1.0); Monocytes % (A) 3 %; Neutrophils # (A) 12.4 k/uL (1.3-7.7); Neutrophils % (A) 88 %; Platelet Count 452 k/uL (150-450); Poikilocytosis Slight; RBC 4.25 m/uL (3.80-5.40); RDW 17.7 % (11.5-15.5); WBC 14.2 k/uL (3.8-10.6)
[2019-11-29 04:38] LABS: Calcium 9.2 mg/dL (8.4-10.2); Potassium 5.1 mmol/L (3.5-5.1)
[2019-11-29 06:35] LABS: Glucose,Whole Blood 279 mg/dL (75-99)
[2019-11-29] MEDS: INSULIN ASPART (NovoLOG) 100 UNIT/ML VIAL SQ SCH ×7 (06:47→21:49)
[2019-11-29] MEDS: SUCRALFATE 1 GM TAB PO SCH ×4 (06:47→20:01)
[2019-11-29] MEDS: METOCLOPRAMIDE 10 MG TAB PO PRN ×2 (07:00→12:14)
--- NOTE | 2019-11-29 07:12 | XR ---
EXAMINATION TYPE: XR chest 1V portable DATE OF EXAM: 11/29/2019 HISTORY: Shortness of breath. COMPARISON: 11/28/2019 TECHNIQUE: Single view of the chest is submitted. FINDINGS: Demonstrated are scattered senescent parenchymal change. Patchy basilar infiltrates and small effusions remain unchanged. Pulmonary venous congestion also not ed. The heart is stable. Hilar and mediastinal structures are within normal limits. Degenerative changes are seen of the dorsal spine. IMPRESSION: 1. Essentially stable chest.
[2019-11-29] MEDS: IPRATROPIUM-ALBUTEROL 3 ML NEB INHALATION SCH ×4 (07:49→20:21)
[2019-11-29] MEDS: SYMBICORT 80-4.5 MCG INHALER INHALATION SCH ×2 (07:49→20:21)
[2019-11-29] MEDS: methylPREDNISolone SOD SUCCI 40 MG/ML 1 ML VIAL IV SCH ×2 (08:40→20:02)
[2019-11-29] MEDS: lisinopriL 10 MG TAB PO SCH ×2 (08:40→20:03)
[2019-11-29] MEDS: amLODIPine 5 MG TAB PO SCH (08:40)
[2019-11-29] MEDS: METOPROLOL TARTRATE 25 MG TAB PO SCH ×3 (08:40→20:02)
[2019-11-29] MEDS: CLOPIDOGREL 75 MG TAB PO SCH (08:40)
[2019-11-29] MEDS: ASPIRIN 81 MG PO SCH (08:40)
[2019-11-29] MEDS: FUROSEMIDE 10 MG/ML 4 ML VIAL IV SCH ×2 (08:40→20:02)
[2019-11-29] MEDS: INSULN ASP PRT/INSULIN ASPART 100 UNIT/ML 10 ML VIAL SQ SCH ×2 (08:41→21:49)
[2019-11-29] MEDS: ISOSORBIDE MONONITRATE ER 60 MG TAB.ER.24H PO SCH (08:41)
[2019-11-29] MEDS: rOPINIRole HCL 4 MG TABLET PO SCH ×3 (08:42→21:41)
[2019-11-29] MEDS: DICYCLOMINE 10 MG CAP PO SCH (08:43)
[2019-11-29] MEDS: RANOLAZINE 500 MG TAB.ER.12H PO SCH ×2 (08:43→21:41)
[2019-11-29] MEDS: HYDROcodone/APAP 7.5-325MG 1 EACH TAB PO PRN ×3 (08:59→20:01)
[2019-11-29] MEDS: MAGNESIUM OXIDE 400 MG TAB PO SCH (09:21)
--- NOTE | 2019-11-29 10:47 | P.PN ---
Subjective Progress Note Date: 11/29/19 Principal diagnosis: Acute on chronic systolic heart failure, acute respiratory failure, altered mental status, pulmonary edema, 11/29/2019, patient seen eval examined during the rounds labs reviewed medications reviewed care plan discussed with the patient as well as RN at [facility] patient remains on high flow oxygen however oxygen gradually being titrated, patient denies any cough or sputum production shortness of breath activity is been present, echocardiogram results and reports have been reviewed ejection fraction 35%, labs reviewed white cell count continue to come down, he renal functions have been stable, patient is in process of being moved out of ICU to the [facility] care 11/28/2019, patient seen and evaluated examined during the rounds labs reviewed medications reviewed, patient is still very short of breath tachypneic on high flow oxygen, labs from today's reviewed white cell count is up to 16,000, hemoglobin is 9.6, sodium is 132 potential 5.4, BUN/creatinine is 28 1.02, chest x-ray reviewed consistent with congestive heart failure and pulmonary edema find ings along with left lower lobe pneumonia is seen patient remained short of breath however able to complete full sentences, we'll continue to observe closely in ICU, continue bronchodilators and IV steroids and antibiotics and gentle diuresis, repeat labs including x-ray for tomorrow Rapid response was called on this patient, patient was extremely short of breath, 40 mg of Lasix have been given IV followed by placement of Jauregui's catheter 1.1 L of urine has been evacuated patient remains very short of breath and lethargic transferred to the ICU does open eyes due to simple commands recommended using a BiPAP she declined continue to wear 100% nonrebreather mask subsequently switched to high flow oxygen, chest x-ray reviewed significant change compared to admit x-ray consistent with fluid overload and pulmonary edema, plan is to give another dose of Lasix later on tonight and also check a chemistry if patient becomes more somnolent and lethargic we'll use the BiPAP, arterial blood gases revealed pH of 7.38 pCO2 44 pO2 only 6200% oxygen blood drink was went up to 315, lactic acid 4.6 BNP is 7440 This is a 74-year-old morbidly obese female history of sleep disorder breathing and sleep apnea patient presented into the hospital with the episode ache chest pain at the time admission and the prolapse were within normal limit her pain subsided but she had a relapse of pain followed by a rise in troponin they were nonspecific anterior lead changes are present, patient was seen evaluated by cardiovascular services had a cardiac cath and angiogram and stent has been placed in LAD proximal part she has a prior history of diffuse coronary artery disease with multiple stent placement in the past as well, with respect to her hypertension dyslipidemia morbid obesity and also has sleeps disorder breathing and sleep apnea she was evaluated after cardiac cath angiogram very short of b reath and wheezing Objective - Vital Signs Vital signs: Vital Signs Temp 98.5 F 11/29/19 04:00 Pulse 82 11/29/19 08:00 Resp 17 11/29/19 07:00 BP 130/62 11/29/19 07:00 Pulse Ox 100 11/29/19 07:00 Intake & Output 11/28/19 11/29/19 11/29/19 18:59 06:59 18:59 Intake Total 780 480 Output Total 530 825 Balance 250 -345 Weight 112 kg 116 kg Intake: IV 210 130 .9 110 130 cefTRIAXone 1 gm In 100 Sodium Chloride 0.9% 50 ml @ 100 mls/hr IVPB Q24HR [facility] Rx#:[id number] Oral 570 150 Tube Feeding 200 Output: Urine 530 825 Other: Voiding Method Indwelling Catheter Indwelling Catheter - Exam - Constitutional General appearance: disheveled, moderate to severe respiratory distress, morbidly obese - EENT Eyes: EOMI, PERRLA ENT: hard of hearing Ears: bilateral: normal - Neck Neck: normal ROM Carotids: bilateral: upstroke normal Thyroid: bilateral: normal size - Respiratory Respiratory: bilateral: diminished, wheezing, bilateral crackles - Cardiovascular Rhythm: regular Heart sounds: normal: S1, S2 - Gastrointestinal General gastrointestinal: distended, normal bowel sounds, soft - Integumentary Integumentary: decreased turgor - Neurologic Neurologic: CNII-XII intact - Musculoskeletal Musculoskeletal: gait normal, generalized weakness, strength equal bilaterally - Psychiatric Psychiatric: A&O x's 3, somnolent but arousable appropriate affect, intact judgment & insight - Labs CBC & Chem 7: 11/29/19 03:31 11/29/19 03:31 Labs: Abnormal Lab Results - Last 24 Hours (Table) 11/28/19 11/28/19 11/28/19 Range/Units 11:49 16:53 20:45 WBC (3.8-10.6) k/uL Hgb (11.4-16.0) gm/dL Hct (34.0-46.0) % MCV (80.0-100.0) fL MCH (25.0-35.0) pg MCHC (31.0-37.0) g/dL RDW (11.5-15.5) % Plt Count (150-450) k/uL Neutrophils # (1.3-7.7) k/uL Sodium (137-145) mmol/L Chloride (98-107) mmol/L BUN (7-17) mg/dL Glucose (74-99) mg/dL POC Glucose (mg/dL) 222 H 239 H 251 H (75-99) mg/dL 11/29/19 11/29/19 11/29/19 Range/Units 03:31 03:31 06:32 WBC 14.2 H (3.8-10.6) k/uL Hgb 9.1 L (11.4-16.0) gm/dL Hct 30.8 L (34.0-46.0) % MCV 72.4 L (80.0-100.0) fL MCH 21.4 L (25.0-35.0) pg MCHC 29.5 L (31.0-37.0) g/dL RDW 17.7 H (11.5-15.5) % Plt Count 452 H (150-450) k/uL Neutrophils # 12.4 H (1.3-7.7) k/uL Sodium 130 L (137-145) mmol/L Chloride 96 L (98-107) mmol/L BUN 35 H (7-17) mg/dL Glucose 222 H (74-99) mg/dL POC Glucose (mg/dL) 279 H (75-99) mg/dL Microbiology - Last 24 Hours (Table) 11/27/19 14:42 Blood Culture - Preliminary Blood No Growth after 24 hours Assessment and Plan Assessment: Acute pulmonary edema Acute hypoxic respiratory failure Altered mental status multifactorial related to benzodiazepine given for the procedure as well as sleep apnea and pulmonary edema, improved now Non-ST segment elevated [place] Ischemic cardiomyopathy with acute on chronic systolic failure echocardiogram recent revealed ejection fraction of 35% Coronary artery disease with new stent placement in proximal LAD with history of multiple stent placement, together she have total of 6 to stand now Acute COPD exacerbation Left lower lobe pneumonia Sleep disorder breathing and sleep apnea Hypertension and hypertensive cardiovascular disease Dyslipidemia Plan: Continue diuresis as planned noted above BiPAP/air vo/high flow oxygen as tolerated and keep saturation around 92% and above Patient can be moved out of the ICU Continue IV steroids antibiotics bronchodilators for now Cardiovascular services evaluation as noted above and outlined Will continue patient on bronchodilator with DuoNeb and Pulmicort Rocephin 1 g daily IV steroids Supplemental oxygen as needed to keep saturation over 92% Monitor clinical course closely further recommendations pending as per clinical response of the patient Time with Patient: Greater than 30
--- NOTE | 2019-11-29 11:41 | CDI ---
Documentation Clarification Form Date: 11/29/2019 11:25:18 AM From: Eulalia Greer RN, CCDS Admit Date: 11/28/2019 07:21:00 AM Patient Name: Lorelei Brand Visit Number: [id number] ATTENTION: The Clinical Documentation Specialists (CDI) and [facility] Coding Staff appreciate your assistance in clarifying documentation. Please respond to the clarification below the line at the bottom and electronically sign. The CDI & [facility] Coding staff will review the response and follow-up if needed. Please note: Queries are made part of the Legal Health Record. If you have any questions, please contact the author of this message via ITS. Dr. Medardo Grande Altered Mental Status was documented in the 11/26-11/28 Pulmonary Progress Notes. History/Risk Factors: NSTEMI, Cardiogenic shock, acute hypoxic respiratory failure, acute COPD Exacerbation, IRA Clinical Indicators: 11/26-11/28 Pulmonary Progress: Altered mental status multifactorial related to benzodiazepine given for the procedure as well as sleep apnea and pulmonary edema, improved now." 11/25-11/28 Labs: WBC 15.1/16.3/14.2, Hgb 9.2/9.6/9.1, K+ 4.8/5.4/5.1, BUN 25/24/28/35, cr 1.21/1.01/1.02/1.04, troponin .031/1.79/19.4 11/25 CXR: "Mild pleural reaction right lung base. Heart appears increased in size compared to old exam. There is no gross heart failure." Treatment: [place] 7.5/325 PO Q 6 hrs PRN MS IVP 2mg IVP Q 4hrs PRN Ceftriaxone 1 gm IVPB Q 24 hrs Ativan .5mg IVP Q 6 hrs PRN In your professional opinion, please clarify the etiology of the Altered Mental Status, if known. Toxic Encephalopathy (specify Underlying Medical Illness) Metabolic Encephalopathy (specify Underlying Medical Illness) Other condition (please specify) Unable to determine (Last Revision: August 2017) MTDD
[2019-11-29 12:01] LABS: Glucose,Whole Blood 206 mg/dL (75-99)
--- NOTE | 2019-11-29 14:30 | PN ---
PROGRESS NOTE Mrs. Brand underwent stenting of the RCA. She is doing better. She has mild congestive heart failure. However, she is breathing much easier. Vitals are stable. JVD 1 cm, no carotid bruit. S1-S2 heard normally, short systolic murmur noted. Lungs reveal bilateral fine rales. Abdomen and lower extremity exam unchanged. Plan is to continue the Lasix but we will switch her from oral to IV Lasix and decrease the amlodipine. Continue cautious diuresis. Same medications, watch her renal function and see how she does. Prognosis remains guarded. MMODL / IJN: [id number] /
[2019-11-29 17:07] LABS: Glucose,Whole Blood 286 mg/dL (75-99)
[2019-11-29] MEDS: MONTELUKAST 10 MG TAB PO SCH (20:02)
[2019-11-29] MEDS: PANTOPRAZOLE 40 MG TABLET PO SCH (20:02)
[2019-11-29] MEDS: ATORVASTATIN 40 MG TAB PO SCH (20:02)
[2019-11-29 21:11] LABS: Glucose,Whole Blood 344 mg/dL (75-99)
[2019-11-30 06:38] LABS: Anisocytosis Slight; Basophils % (A) 0 %; Eosinophils % (A) 0 %; HCT 29.1 % (34.0-46.0); HGB 8.6 gm/dL (11.4-16.0); Hypochromasia Marked; Lymphocytes # (A) 1.2 k/uL (1.0-4.8); Lymphocytes % (A) 12 %; MCH 21.3 pg (25.0-35.0); MCHC 29.6 g/dL (31.0-37.0); Mean Platelet Volume 6.7; Microcytosis Moderate; Monocytes # (A) 0.5 k/uL (0-1.0); Monocytes % (A) 5 %; Neutrophils # (A) 8.9 k/uL (1.3-7.7); Neutrophils % (A) 82 %; Platelet Count 439 k/uL (150-450); Poikilocytosis Slight; RBC 4.04 m/uL (3.80-5.40); RDW 17.4 % (11.5-15.5); WBC 10.8 k/uL (3.8-10.6)
[2019-11-30 06:50] LABS: Calcium 8.8 mg/dL (8.4-10.2); Potassium 5.2 mmol/L (3.5-5.1)
[2019-11-30 06:58] LABS: Glucose,Whole Blood 319 mg/dL (75-99)
[2019-11-30] MEDS: INSULIN ASPART (NovoLOG) 100 UNIT/ML VIAL SQ SCH ×7 (06:59→21:24)
--- NOTE | 2019-11-30 07:40 | XR ---
EXAMINATION TYPE: XR chest 1V portable DATE OF EXAM: 11/30/2019 COMPARISON: Prior chest x-ray 11/29/2019 HISTORY: Shortness of breath TECHNIQUE: Single frontal view of the chest is obtained. FINDINGS: Bibasilar densities are similar, interstitium is mildly increased. Heart is enlarged. Ther e is no evident pneumothorax. Aorta is dense. IMPRESSION: There may be basilar atelectasis versus edema, correlate for possible interstitial edema , pneumonia not excluded.
[2019-11-30] MEDS: INSULN ASP PRT/INSULIN ASPART 100 UNIT/ML 10 ML VIAL SQ SCH ×2 (07:52→21:25)
[2019-11-30] MEDS: rOPINIRole HCL 4 MG TABLET PO SCH ×3 (07:53→21:24)
[2019-11-30] MEDS: RANOLAZINE 500 MG TAB.ER.12H PO SCH ×2 (07:53→21:24)
[2019-11-30] MEDS: methylPREDNISolone SOD SUCCI 40 MG/ML 1 ML VIAL IV SCH ×2 (07:54→21:26)
[2019-11-30] MEDS: FUROSEMIDE 10 MG/ML 4 ML VIAL IV SCH (07:55)
[2019-11-30] MEDS: DICYCLOMINE 10 MG CAP PO SCH (07:58)
[2019-11-30] MEDS: METOPROLOL TARTRATE 25 MG TAB PO SCH ×3 (07:58→21:23)
[2019-11-30] MEDS: ISOSORBIDE MONONITRATE ER 60 MG TAB.ER.24H PO SCH (07:58)
[2019-11-30] MEDS: lisinopriL 10 MG TAB PO SCH ×2 (07:58→21:23)
[2019-11-30] MEDS: MAGNESIUM OXIDE 400 MG TAB PO SCH (07:58)
[2019-11-30] MEDS: ASPIRIN 81 MG PO SCH (07:58)
[2019-11-30] MEDS: CLOPIDOGREL 75 MG TAB PO SCH (07:58)
[2019-11-30] MEDS: amLODIPine 5 MG TAB PO SCH (07:58)
[2019-11-30] MEDS: IPRATROPIUM-ALBUTEROL 3 ML NEB INHALATION SCH ×4 (08:04→19:57)
[2019-11-30] MEDS: SYMBICORT 80-4.5 MCG INHALER INHALATION SCH ×2 (08:04→19:56)
[2019-11-30] MEDS: SUCRALFATE 1 GM TAB PO SCH ×4 (08:20→21:24)
[2019-11-30] MEDS: HYDROcodone/APAP 7.5-325MG 1 EACH TAB PO PRN ×3 (08:21→21:37)
[2019-11-30] MEDS ORDERED: FUROSEMIDE 40 MG TAB PO SCH (09:00)
[2019-11-30] MEDS: METOCLOPRAMIDE 10 MG TAB PO PRN ×3 (09:25→19:19)
--- NOTE | 2019-11-30 09:51 | P.PN ---
Subjective Progress Note Date: 11/30/19 Principal diagnosis: Acute on chronic systolic heart failure, acute respiratory failure, altered mental status, pulmonary edema, 11/30/2019, patient seen eval examined during the rounds labs reviewed medications reviewed him a hemodynamic status stable saturation 92% on high flow oxygen 40%, test x-ray stable no specific complaints except shortness of breath Exertion and activity, patient can be moved out of the ICU 11/29/2019, patient seen eval examined during the rounds labs reviewed medications reviewed care plan discussed with the patient as well as RN at length patient remains on high flow oxygen however oxygen gradually being titrated, patient denies any cough or sputum production shortness of breath activity is been present, echocardiogram results and reports have been reviewed ejection fraction 35%, labs reviewed white cell count continue to come down, he renal functions have been stable, patient is in process of being moved out of ICU to [facility] care 11/28/2019, patient seen and evaluated examined during the rounds labs reviewed medications reviewed, patient is still very short of breath tachypneic on high flow oxygen, labs from today's reviewed white cell count is up to 16,000, hemoglobin is 9.6, sodium is 132 potential 5.4, BUN/creatinine is 28 1.02, chest x-ray reviewed consistent with congestive heart failure and pulmonary edema findings along with left lower lobe pneumonia is seen patient remained short of breath however able to complete full sentences, we'll continue to observe closely in ICU, continue bronchodilators and IV steroids and antibiotics and gentle diuresis, repeat labs including x-ray for tomorrow Rapid response was called on this patient, patient was extremely short of breath, 40 mg of Lasix have been given IV followed by placement of Jauregui's catheter 1.1 L of urine has been evacuated patient remains very short of breath and lethargic transferred to the ICU does open eyes due to simple commands recommended using a BiPAP she declined continue to wear 100% nonrebreather mask subsequently switched to high flow oxygen, chest x-ray reviewed significant change compared to admit x-ray consistent with fluid overload and pulmonary edema, plan is to give another dose of Lasix later on tonight and also check a chemistry if patient becomes more somnolent and lethargic we'll use the BiPAP, arterial blood gases revealed pH of 7.38 pCO2 44 pO2 only 6200% oxygen blood drink was went up to 315, lactic acid 4.6 BNP is 7440 This is a 74-year-old morbidly obese female history of sleep disorder breathing and sleep apnea patient presented into the hospital with the episode ache chest pain at the time admission and the prolapse were within normal limit her pain subsided but she had a relapse of pain followed by a rise in troponin they were nonspecific anterior lead changes are present, patient was seen evaluated by cardiovascular services had a cardiac cath and angiogram and stent has been placed in LAD proximal part she has a prior history of diffuse coronary artery disease with multiple stent placement in the past as well, with respect to her hypertension dyslipidemia morbid obesity and also has sleeps disorder breathing and sleep apnea she was evaluated after cardiac cath angiogram very short of breath and wheezing Objective - Vital Signs Vital signs: Vital Signs Temp 97.8 F 11/30/19 08:00 Pulse 86 11/30/19 09:00 Resp 21 11/30/19 09:00 BP 136/61 11/30/19 09:00 Pulse Ox 92 L 11/30/19 09:00 Intake & Output 11/29/19 11/30/19 11/30/19 18:59 06:59 18:59 Intake Total 1210 120 360 Output Total 1065 1475 1200 Balance 145 -1355 -840 Weight 119 kg Intake: IV 190 120 120 .9 90 120 20 cefTRIAXone 1 gm In 100 100 Sodium Chloride 0.9% 50 ml @ 100 mls/hr IVPB Q24HR [facility] Rx#:[id number] Oral 1020 240 Output: Urine 1065 1475 1200 Other: Voiding Method Indwelling Catheter Indwelling Catheter - Exam - Constitutional General appearance: disheveled, moderate to severe respiratory distress, morbidly obese - EENT Eyes: EOMI, PERRLA ENT: hard of hearing Ears: bilateral: normal - Neck Neck: normal ROM Carotids: bilateral: upstroke normal Thyroid: bilateral: normal size - Respiratory Respiratory: bilateral: diminished, wheezing, bilateral crackles - Cardiovascular Rhythm: regular Heart sounds: normal: S1, S2 - Gastrointestinal General gastrointestinal: distended, normal bowel sounds, soft - Integumentary Integumentary: decreased turgor - Neurologic Neurologic: CNII-XII intact - Musculoskeletal Musculoskeletal: gait normal, generalized weakness, strength equal bilaterally - Psychiatric Psychiatric: A&O x's 3, somnolent but arousable appropriate affect, intact judgment & insight - Labs CBC & Chem 7: 11/30/19 05:48 11/30/19 05:48 Labs: Abnormal Lab Results - Last 24 Hours (Table) 11/29/19 11/29/19 11/29/19 Range/Units 12:00 17:05 21:09 WBC (3.8-10.6) k/uL Hgb (11.4-16.0) gm/dL Hct (34.0-46.0) % MCV (80.0-100.0) fL MCH (25.0-35.0) pg MCHC (31.0-37.0) g/dL RDW (11.5-15.5) % Neutrophils # (1.3-7.7) k/uL Sodium (137-145) mmol/L Potassium (3.5-5.1) mmol/L Chloride (98-107) mmol/L BUN (7-17) mg/dL Glucose (74-99) mg/dL POC Glucose (mg/dL) 206 H 286 H 344 H (75-99) mg/dL 11/30/19 11/30/19 11/30/19 Range/Units 05:48 05:48 06:57 WBC 10.8 H (3.8-10.6) k/uL Hgb 8.6 L (11.4-16.0) gm/dL Hct 29.1 L (34.0-46.0) % MCV 72.0 L (80.0-100.0) fL MCH 21.3 L (25.0-35.0) pg MCHC 29.6 L (31.0-37.0) g/dL RDW 17.4 H (11.5-15.5) % Neutrophils # 8.9 H (1.3-7.7) k/uL Sodium 129 L (137-145) mmol/L Potassium 5.2 H (3.5-5.1) mmol/L Chloride 96 L (98-107) mmol/L BUN 37 H (7-17) mg/dL Glucose 273 H (74-99) mg/dL POC Glucose (mg/dL) 319 H (75-99) mg/dL Microbiology - Last 24 Hours (Table) 11/27/19 14:42 Blood Culture - Preliminary Blood No Growth after 48 hours Assessment and Plan Assessment: Acute pulmonary edema Acute hypoxic respiratory failure Altered mental status multifactorial related to benzodiazepine given for the p rocedure as well as sleep apnea and pulmonary edema, improved now Non-ST segment elevated ID Ischemic cardiomyopathy with acute on chronic systolic failure echocardiogram recent revealed ejection fraction of 35% Coronary artery disease with new stent placement in proximal LAD with history of multiple stent placement, together she have total of 6 to stand now Acute COPD exacerbation Left lower lobe pneumonia Sleep disorder breathing and sleep apnea Hypertension and hypertensive cardiovascular disease Dyslipidemia Plan: Continue diuresis as planned noted above BiPAP/air vo/high flow oxygen as tolerated and keep saturation around 92% and above Patient can be moved out of the ICU Continue IV steroids antibiotics bronchodilators for now Cardiovascular services evaluation as noted above and outlined Will continue patient on bronchodilator with DuoNeb and Pulmicort Rocephin 1 g daily IV steroids Supplemental oxygen as needed to keep saturation over 92% Monitor clinical course closely further recommendations pending as per clinical response of the patient Time with Patient: Greater than 30
[2019-11-30 11:55] LABS: Glucose,Whole Blood 254 mg/dL (75-99)
--- NOTE | 2019-11-30 14:33 | PN ---
PROGRESS NOTE Mrs. Brand underwent stenting of circumflex performed by Dr. Caro. She is doing better today. She still requires BiPAP at night. Vital signs stable. JVD 1 cm. No carotid bruit. S1-S2 heard normally. Lungs reveal diminished air entry. Abdomen and lower extremity exam unchanged. PLAN: Plan is to discontinue IV Lasix and switch her to oral Lasix 40 mg b.i.d. and continue to see how she does. Hopefully she will be weaned off her BiPAP by Dr. Browne, who will be seeing her shortly. Prognosis remains guarded. Cardiac-agosto, she is more stable today. MMODL / IJN: [id number] /
--- NOTE | 2019-11-30 15:03 | PN ---
PROGRESS NOTE This 74-year-old white female remains in ICU at this time, status post PTCA and cardiogenic shock of the LAD stent. She is doing much better. She has IV Lasix. Since her breathing is improved, we are going to cut it from IV to oral and Pepcid. Wean some blood pressure medicines due to lower blood pressure. She is doing much better. She feels much better than yesterday. Sitting up in a chair in the ICU. Lungs are rales at the bases, otherwise clear. GI is distended, obesity. Cardiovascular S1-S2. Psych fair mood and affect. Hematologic 2+ edema. Continue current treatments. Wean oxygen. Wean blood pressure pills. PT OT. Possible discharge home in the next 24-48 hours. ICU time 20 minutes. ANTHONY / JIMENA: [id number] /
[2019-11-30] MEDS: FUROSEMIDE 40 MG TAB PO SCH (16:09)
[2019-11-30 16:58] LABS: Glucose,Whole Blood 247 mg/dL (75-99)
[2019-11-30 20:35] LABS: Glucose,Whole Blood 297 mg/dL (75-99)
--- NOTE | 2019-11-30 20:42 | DS ---
DISCHARGE SUMMARY ADDENDUM TO DISCHARGE SUMMARY: Metabolic encephalopathy. MMODL / IJN: [id number] /
[2019-11-30] MEDS: ATORVASTATIN 40 MG TAB PO SCH (21:24)
[2019-11-30] MEDS: PANTOPRAZOLE 40 MG TABLET PO SCH (21:24)
[2019-11-30] MEDS: MONTELUKAST 10 MG TAB PO SCH (21:24)
--- NOTE | 2019-12-01 00:36 | PN ---
PROGRESS NOTE A 74-year-old white female, status post circumflex stenting by Dr. Caro, doing better, is on BiPAP at night. Breathing is greatly improved. CARDIOVASCULAR: S1, S2. GI: Soft. HEMATOLOGY: Negative Homans. ASSESSMENT: Status post stenting right coronary artery. Continue current treatment. Follow up in next 24 to 48 hours for possible discharge. improved. Breathing is improved. Wean oxygen as tolerated. ICU TIME: 20 minutes. MMODL / IJN: [id number] /
[2019-12-01 05:37] LABS: Anisocytosis Slight; Basophils % (A) 0 %; Eosinophils # (A) 0.1 k/uL (0-0.7); Eosinophils % (A) 1 %; HCT 31.7 % (34.0-46.0); HGB 9.5 gm/dL (11.4-16.0); Hypochromasia Marked; Lymphocytes # (A) 1.5 k/uL (1.0-4.8); Lymphocytes % (A) 12 %; MCH 21.7 pg (25.0-35.0); MCHC 29.9 g/dL (31.0-37.0); MCV 72.5 fL (80.0-100.0); Mean Platelet Volume 6.5; Microcytosis Moderate; Monocytes # (A) 0.7 k/uL (0-1.0); Monocytes % (A) 6 %; Neutrophils # (A) 10.8 k/uL (1.3-7.7); Neutrophils % (A) 81 %; Platelet Count 471 k/uL (150-450); Poikilocytosis Slight; RBC 4.37 m/uL (3.80-5.40); RDW 17.2 % (11.5-15.5); WBC 13.3 k/uL (3.8-10.6)
[2019-12-01 05:47] LABS: Albumin 3.9 g/dL (3.5-5.0); Calcium 9.4 mg/dL (8.4-10.2); Potassium 5.3 mmol/L (3.5-5.1); Total Bilirubin 0.5 mg/dL (0.2-1.3)
[2019-12-01 06:56] LABS: Glucose,Whole Blood 264 mg/dL (75-99)
[2019-12-01] MEDS: HYDROcodone/APAP 7.5-325MG 1 EACH TAB PO PRN ×2 (06:58→14:57)
[2019-12-01] MEDS: METOCLOPRAMIDE 10 MG TAB PO PRN ×2 (06:58)
[2019-12-01] MEDS: SUCRALFATE 1 GM TAB PO SCH ×4 (06:59→21:44)
[2019-12-01] MEDS: INSULIN ASPART (NovoLOG) 100 UNIT/ML VIAL SQ SCH ×7 (06:59→20:55)
[2019-12-01] MEDS: SYMBICORT 80-4.5 MCG INHALER INHALATION SCH ×2 (07:19→21:22)
[2019-12-01] MEDS: IPRATROPIUM-ALBUTEROL 3 ML NEB INHALATION SCH ×4 (07:19→21:21)
[2019-12-01] MEDS: lisinopriL 10 MG TAB PO SCH ×2 (08:31→20:54)
[2019-12-01] MEDS: ASPIRIN 81 MG PO SCH (08:31)
[2019-12-01] MEDS: METOPROLOL TARTRATE 25 MG TAB PO SCH ×3 (08:32→20:54)
[2019-12-01] MEDS: CLOPIDOGREL 75 MG TAB PO SCH (08:34)
[2019-12-01] MEDS: FUROSEMIDE 40 MG TAB PO SCH ×2 (08:34→15:02)
[2019-12-01] MEDS: MAGNESIUM OXIDE 400 MG TAB PO SCH (08:34)
[2019-12-01] MEDS: ISOSORBIDE MONONITRATE ER 60 MG TAB.ER.24H PO SCH (08:35)
[2019-12-01] MEDS: methylPREDNISolone SOD SUCCI 40 MG/ML 1 ML VIAL IV SCH (08:35)
[2019-12-01] MEDS: INSULN ASP PRT/INSULIN ASPART 100 UNIT/ML 10 ML VIAL SQ SCH ×2 (08:36→20:55)
[2019-12-01 08:37] LABS: Glucose,Whole Blood 248 mg/dL (75-99)
[2019-12-01] MEDS: rOPINIRole HCL 4 MG TABLET PO SCH ×2 (08:38→15:02)
[2019-12-01] MEDS: RANOLAZINE 500 MG TAB.ER.12H PO SCH ×2 (08:38→20:53)
[2019-12-01] MEDS: DICYCLOMINE 10 MG CAP PO SCH (08:39)
[2019-12-01] MEDS: amLODIPine 5 MG TAB PO SCH (08:41)
[2019-12-01] MEDS: hydroCHLOROthiazide 25 MG TAB PO SCH (08:59)
--- NOTE | 2019-12-01 09:32 | PN ---
PROGRESS NOTE Mrs Brand is doing better, feels better. She is off the Airvoo and on 4-5 L of nasal cannula. No chest pain. Shortness of breath is better. Sodium has come up to 133. Vitals are stable. JVD 1 cm. No carotid bruit S1-S2 heard normally, short systolic murmur. Lungs reveal improved air entry. Abdomen and lower extremity exam is unchanged. This patient has potassium which is slightly higher. I will add hydrochlorothiazide 25 mg daily to her regimen and continue her other medications. Hopefully she can be moved to telemetry if bed is available. MMODL / IJN: [id number] / MTDD
--- NOTE | 2019-12-01 10:34 | P.PN ---
Subjective Progress Note Date: 12/01/19 Principal diagnosis: Acute on chronic systolic heart failure, acute respiratory failure, altered mental status, pulmonary edema, 12/01/2019, patient seen eval examined during the rounds labs reviewed medications reviewed care plan discussed, patient is on 5 L oxygen now sitting u pright in chair breathing comfortably denies any chest pain remains afebrile hemodynamic status is stable, on 5 L oxygen is 95%, he shouldn't is being stepped down to selective 11/30/2019, patient seen eval examined during the rounds labs reviewed medications reviewed him a hemodynamic status stable saturation 92% on high flow oxygen 40%, test x-ray stable no specific complaints except shortness of breath Exertion and activity, patient can be moved out of the ICU 11/29/2019, patient seen eval examined during the rounds labs reviewed medications reviewed care plan discussed with the patient as well as RN at length patient remains on high flow oxygen however oxygen gradually being titrated, patient denies any cough or sputum production shortness of breath activity is been present, echocardiogram results and reports have been reviewed ejection fraction 35%, labs reviewed white cell count continue to come down, he renal functions have been stable, patient is in process of being moved out of ICU to selective care 11/28/2019, patient seen and evaluated examined during the rounds labs reviewed medications reviewed, patient is still very short of breath tachypneic on high flow oxygen, labs from today's reviewed white cell count is up to 16,000, hemoglobin is 9.6, sodium is 132 potential 5.4, BUN/creatinine is 28 1.02, chest x-ray reviewed consistent with congestive heart failure and pulmonary edema findings along with left lower lobe pneumonia is seen patient remained short of breath however able to complete full sentences, we'll continue to observe closely in ICU, continue bronchodilators and IV steroids and antibiotics and gentle diuresis, repeat labs including x-ray for tomorrow Rapid response was called on this patient, patient was extremely short of breath, 40 mg of Lasix have been given IV followed by placement of Jauregui's catheter 1.1 L of urine has been evacuated patient remains very short of breath and lethargic transferred to the ICU does open eyes due to simple commands recommended using a BiPAP she declined continue to wear 100% nonrebreather mask subsequently switched to high flow oxygen, chest x-ray reviewed significant change compared to admit x-ray consistent with fluid overload and pulmonary edema, plan is to give another dose of Lasix later on tonight and also check a chemistry if patient becomes more somnolent and lethargic we'll use the BiPAP, arterial blood gases revealed pH of 7.38 pCO2 44 pO2 only 6200% oxygen blood drink was went up to 315, lactic acid 4.6 BNP is 7440 This is a 74-year-old morbidly obese female history of sleep disorder breathing and sleep apnea patient presented into the hospital with the episode ache chest pain at the time admission and the prolapse were within normal limit her pain subsided but she had a relapse of pain followed by a rise in troponin they were nonspecific anterior lead changes are present, patient was seen evaluated by cardiovascular services had a cardiac cath and angiogram and stent has been placed in LAD proximal part she has a prior history of diffuse coronary artery disease with multiple stent placement in the past as well, with respect to her hypertension dyslipidemia morbid obesity and also has sleeps disorder breathing and sleep apnea she was evaluated after cardiac cath angiogram very short of breath and wheezing Objective - Vital Signs Vital signs: Vital Signs Temp 97.7 F 12/01/19 08:00 Pulse 87 12/01/19 08:00 Resp 13 12/01/19 08:00 BP 125/52 12/01/19 08:00 Pulse Ox 96 12/01/19 08:00 Intake & Output 11/30/19 12/01/19 12/01/19 18:59 06:59 18:59 Intake Total 1290 400 Output Total 4000 1050 150 Balance -2710 -650 -150 Weight 117.3 kg Intake: IV 150 .9 50 cefTRIAXone 1 gm In 100 Sodium Chloride 0.9% 50 ml @ 100 mls/hr IVPB Q24HR [facility] Rx#:[id number] Oral 1140 400 Output: Urine 4000 1050 150 Other: Voiding Method Indwelling Catheter Indwelling Catheter Indwelling Catheter - Exam - Constitutional General appearance: disheveled, moderate to severe respiratory distress, morbidly obese - EENT Eyes: EOMI, PERRLA ENT: hard of hearing Ears: bilateral: normal - Neck Neck: normal ROM Carotids: bilateral: upstroke normal Thyroid: bilateral: normal size - Respiratory Respiratory: bilateral: diminished, wheezing, bilateral crackles - Cardiovascular Rhythm: regular Heart sounds: normal: S1, S2 - Gastrointestinal General gastrointestinal: distended, normal bowel sounds, soft - Integumentary Integumentary: decreased turgor - Neurologic Neurologic: CNII-XII intact - Musculoskeletal Musculoskeletal: gait normal, generalized weakness, strength equal bilaterally - Psychiatric Psychiatric: A&O x's 3, somnolent but arousable appropriate affect, intact judgment & insight - Labs CBC & Chem 7: 12/01/19 05:12 12/01/19 05:12 Labs: Abnormal Lab Results - Last 24 Hours (Table) 11/30/19 11/30/19 11/30/19 Range/Units 11:53 16:57 20:33 WBC (3.8-10.6) k/uL Hgb (11.4-16.0) gm/dL Hct (34.0-46.0) % MCV (80.0-100.0) fL MCH (25.0-35.0) pg MCHC (31.0-37.0) g/dL RDW (11.5-15.5) % Plt Count (150-450) k/uL Neutrophils # (1.3-7.7) k/uL Sodium (137-145) mmol/L Potassium (3.5-5.1) mmol/L Chloride (98-107) mmol/L BUN (7-17) mg/dL Glucose (74-99) mg/dL POC Glucose (mg/dL) 254 H 247 H 297 H (75-99) mg/dL ALT (4-34) U/L 12/01/19 12/01/19 12/01/19 Range/Units 05:12 05:12 06:54 WBC 13.3 H (3.8-10.6) k/uL Hgb 9.5 L (11.4-16.0) gm/dL Hct 31.7 L (34.0-46.0) % MCV 72.5 L (80.0-100.0) fL MCH 21.7 L (25.0-35.0) pg MCHC 29.9 L (31.0-37.0) g/dL RDW 17.2 H (11.5-15.5) % Plt Count 471 H (150-450) k/uL Neutrophils # 10.8 H (1.3-7.7) k/uL Sodium 133 L (137-145) mmol/L Potassium 5.3 H (3.5-5.1) mmol/L Chloride 97 L (98-107) mmol/L BUN 35 H (7-17) mg/dL Glucose 267 H (74-99) mg/dL POC Glucose (mg/dL) 264 H (75-99) mg/dL ALT 43 H (4-34) U/L 12/01/19 Range/Units 08:36 WBC (3.8-10.6) k/uL Hgb (11.4-16.0) gm/dL Hct (34.0-46.0) % MCV (80.0-100.0) fL MCH (25.0-35.0) pg MCHC (31.0-37.0) g/dL RDW (11.5-15.5) % Plt Count (150-450) k/uL Neutrophils # (1.3-7.7) k/uL Sodium (137-145) mmol/L Potassium (3.5-5.1) mmol/L Chloride (98-107) mmol/L BUN (7-17) mg/dL Glucose (74-99) mg/dL POC Glucose (mg/dL) 248 H (75-99) mg/dL ALT (4-34) U/L Microbiology - Last 24 Hours (Table) 11/27/19 14:42 Blood Culture - Preliminary Blood No Growth after 72 hours Assessment and Plan Assessment: Acute pulmonary edema Acute hypoxic respiratory failure Altered mental status multifactorial related to benzodiazepine given for the procedure as well as sleep apnea and pulmonary edema, improved now Non-ST segment elevated RI Ischemic cardiomyopathy with acute on chronic systolic failure echocardiogram recent revealed ejection fraction of 35% Coronary artery disease with new stent placement in proximal LAD with history of multiple stent placement, together she have total of 6 to stand now Acute COPD exacerbation Left lower lobe pneumonia Sleep disorder breathing and sleep apnea Hypertension and hypertensive cardiovascular disease Dyslipidemia Plan: Continue diuresis as planned noted above Titrate oxygen as tolerated and keep saturation around 92% and above Patient can be moved out of the ICU Continue IV steroids, however can be tapered down to 40 mg daily, continue antibiotics bronchodilators for now Cardiovascular services evaluation as noted above and outlined Will continue patient on bronchodilator with DuoNeb and Pulmicort Rocephin 1 g daily Supplemental oxygen as needed to keep saturation over 92% Monitor clinical course closely further recommendations pending as per clinical response of the patient Time with Patient: Greater than 30
[2019-12-01 12:06] LABS: Glucose,Whole Blood 158 mg/dL (75-99)
[2019-12-01 17:01] LABS: Glucose,Whole Blood 288 mg/dL (75-99)
[2019-12-01 19:48] LABS: Glucose,Whole Blood 418 mg/dL (75-99)
[2019-12-01] MEDS: MONTELUKAST 10 MG TAB PO SCH (20:54)
[2019-12-01] MEDS: ATORVASTATIN 40 MG TAB PO SCH (20:54)
[2019-12-01] MEDS: PANTOPRAZOLE 40 MG TABLET PO SCH (20:54)
--- NOTE | 2019-12-02 05:59 | PN ---
PROGRESS NOTE The patient is seen. She is sitting up in bed. She is down to 2 L oxygen. Await for her improvement in her oxygen level prior to going home. Cardiovascular S1, S2. Lungs clear. GI is soft. Hematology negative Homans. Status post STEMI, acute on chronic anemia, hyponatremia, hyperkalemia, pulmonary edema, acute hypoxemic respiratory failure, altered mental status, non STEMI, ischemic cardiomyopathy, coronary artery disease with stent in LAD, COPD, left lower lobe pneumonia, sleep disorder, hypotension, vascular disease. Prognosis is extremely guarded, but is improving slowly. Once she weans off oxygen, to be able to be discharged when she is down to 2 L. Get PT OT to get moving and possible to be discharged home in the next 24-48 hours. ICU time 30 minutes. ANTHONY / JIMENA: [id number] /
[2019-12-02 06:30] LABS: Glucose,Whole Blood 173 mg/dL (75-99)
[2019-12-02] MEDS: INSULIN ASPART (NovoLOG) 100 UNIT/ML VIAL SQ SCH ×7 (06:55→21:02)
[2019-12-02 07:08] LABS: Anisocytosis Slight; Basophils % (A) 0 %; Eosinophils # (A) 0.2 k/uL (0-0.7); Eosinophils % (A) 1 %; HCT 34.8 % (34.0-46.0); HGB 10.3 gm/dL (11.4-16.0); Hypochromasia Marked; Lymphocytes % (A) 22 %; MCH 20.4 pg (25.0-35.0); MCHC 29.7 g/dL (31.0-37.0); Mean Platelet Volume 6.3; Microcytosis Marked; Monocytes # (A) 1.2 k/uL (0-1.0); Monocytes % (A) 9 %; Neutrophils % (A) 65 %; Platelet Count 527 k/uL (150-450); Poikilocytosis Slight; RBC 5.05 m/uL (3.80-5.40); RDW 17.3 % (11.5-15.5); WBC 13.7 k/uL (3.8-10.6)
[2019-12-02 07:21] LABS: Albumin 3.9 g/dL (3.5-5.0); Calcium 9.7 mg/dL (8.4-10.2); Potassium 4.2 mmol/L (3.5-5.1); Total Bilirubin 0.6 mg/dL (0.2-1.3); Total Protein 7.1 g/dL (6.3-8.2)
[2019-12-02] MEDS: IPRATROPIUM-ALBUTEROL 3 ML NEB INHALATION SCH ×4 (07:42→19:50)
[2019-12-02] MEDS: SYMBICORT 80-4.5 MCG INHALER INHALATION SCH ×2 (07:42→19:50)
[2019-12-02] MEDS: RANOLAZINE 500 MG TAB.ER.12H PO SCH ×2 (09:18→21:00)
[2019-12-02] MEDS: CLOPIDOGREL 75 MG TAB PO SCH (09:18)
[2019-12-02] MEDS: lisinopriL 20 MG TAB PO SCH ×3 (09:18→21:01)
[2019-12-02] MEDS: MAGNESIUM OXIDE 400 MG TAB PO SCH (09:18)
[2019-12-02] MEDS: ASPIRIN 81 MG PO SCH (09:18)
[2019-12-02] MEDS: ISOSORBIDE MONONITRATE ER 60 MG TAB.ER.24H PO SCH (09:19)
[2019-12-02] MEDS: DICYCLOMINE 10 MG CAP PO SCH (09:19)
[2019-12-02] MEDS: SUCRALFATE 1 GM TAB PO SCH ×4 (09:19→21:01)
[2019-12-02] MEDS: METOPROLOL TARTRATE 25 MG TAB PO SCH ×3 (09:19→21:00)
[2019-12-02] MEDS: FUROSEMIDE 40 MG TAB PO SCH ×2 (09:19→16:25)
[2019-12-02] MEDS: hydroCHLOROthiazide 25 MG TAB PO SCH (09:19)
[2019-12-02] MEDS: INSULN ASP PRT/INSULIN ASPART 100 UNIT/ML 10 ML VIAL SQ SCH ×2 (09:23→21:02)
[2019-12-02] MEDS: HYDROcodone/APAP 7.5-325MG 1 EACH TAB PO PRN ×3 (10:05→20:59)
[2019-12-02] MEDS: rOPINIRole HCL 4 MG TABLET PO SCH ×3 (10:06→20:59)
--- NOTE | 2019-12-02 10:20 | P.PN ---
Subjective Progress Note Date: 12/02/19 Principal diagnosis: Acute on chronic systolic heart failure, acute respiratory failure, altered mental status, pulmonary edema, 12/02/2019, patient seen eval examined during the rounds labs reviewed medications reviewed patient is on 2 L oxygen shortness of breath and respirator y status significantly improved cuff congestion is better, 12/01/2019, patient seen eval examined during the rounds labs reviewed medications reviewed care plan discussed, patient is on 5 L oxygen now sitting upright in chair breathing comfortably denies any chest pain remains afebrile hemodynamic status is stable, on 5 L oxygen is 95%, he shouldn't is being stepped down to selective 11/30/2019, patient seen eval examined during the rounds labs reviewed medications reviewed him a hemodynamic status stable saturation 92% on high flow oxygen 40%, test x-ray stable no specific complaints except shortness of breath Exertion and activity, patient can be moved out of the ICU 11/29/2019, patient seen eval examined during the rounds labs reviewed medications reviewed care plan discussed with the patient as well as RN at length patient remains on high flow oxygen however oxygen gradually being titrated, patient denies any cough or sputum production shortness of breath activity is been present, echocardiogram results and reports have been reviewed ejection fraction 35%, labs reviewed white cell count continue to come down, he renal functions have been stable, patient is in process of being moved out of ICU to selective care 11/28/2019, patient seen and evaluated examined during the rounds labs reviewed medications reviewed, patient is still very short of breath tachypneic on high flow oxygen, labs from today's reviewed white cell count is up to 16,000, hemoglobin is 9.6, sodium is 132 potential 5.4, BUN/creatinine is 28 1.02, chest x-ray reviewed consistent with congestive heart failure and pulmonary edema findings along with left lower lobe pneumonia is seen patient remained short of breath however able to complete full sentences, we'll continue to observe closely in ICU, continue bronchodilators and IV steroids and antibiotics and gentle diuresis, repeat labs including x-ray for tomorrow Rapid response was called on this patient, patient was extremely short of breath, 40 mg of Lasix have been given IV followed by placement of Jauregui's catheter 1.1 L of urine has been evacuated patient remains very short of breath and lethargic transferred to the ICU does open eyes due to simple commands recommended using a BiPAP she declined continue to wear 100% nonrebreather mask subsequently switched to high flow oxygen, chest x-ray reviewed significant change compared to admit x-ray consistent with fluid overload and pulmonary edema, plan is to give another dose of Lasix later on tonight and also check a chemistry if patient becomes more somnolent and lethargic we'll use the BiPAP, arterial blood gases revealed pH of 7.38 pCO2 44 pO2 only 6200% oxygen blood drink was went up to 315, lactic acid 4.6 BNP is 7440 This is a 74-year-old morbidly obese female history of sleep disorder breathing and sleep apnea patient presented into the hospital with the episode ache chest pain at the time admission and the prolapse were within normal limit her pain subsided but she had a relapse of pain followed by a rise in troponin they were nonspecific anterior lead changes are present, patient was seen evaluated by cardiovascular services had a cardiac cath and angiogram and stent has been placed in LAD proximal part she has a prior history of diffuse coronary artery disease with multiple stent placement in the past as well, with respect to her hypertension dyslipidemia morbid obesity and also has sleeps disorder breathing and sleep apnea she was evaluated after cardiac cath angiogram very short of breath and wheezing Objective - Vital Signs Vital signs: Vital Signs Temp 98.7 F 12/02/19 09:06 Pulse 77 12/02/19 09:06 Resp 18 12/02/19 09:06 BP 123/72 12/02/19 09:06 Pulse Ox 97 12/02/19 09:06 Intake & Output 12/01/19 12/02/19 12/02/19 18:59 06:59 18:59 Intake Total 400 120 Output Total 2150 3050 Balance -1750 -3050 120 Weight 110.4 kg Intake: Oral 400 120 Output: Urine 2150 3050 Other: Voiding Method Indwelling Catheter Indwelling Catheter # Bowel Movements 1 - Exam - Constitutional General appearance: disheveled, moderate to severe respiratory distress, morbidly obese - EENT Eyes: EOMI, PERRLA ENT: hard of hearing Ears: bilateral: normal - Neck Neck: normal ROM Carotids: bilateral: upstroke normal Thyroid: bilateral: normal size - Respiratory Respiratory: bilateral: diminished, wheezing, bilateral crackles - Cardiovascular Rhythm: regular Heart sounds: normal: S1, S2 - Gastrointestinal General gastrointestinal: distended, normal bowel sounds, soft - Integumentary Integumentary: decreased turgor - Neurologic Neurologic: CNII-XII intact - Musculoskeletal Musculoskeletal: gait normal, generalized weakness, strength equal bilaterally - Psychiatric Psychiatric: A&O x's 3, somnolent but arousable appropriate affect, intact judgment & insight - Labs CBC & Chem 7: 12/02/19 06:58 12/02/19 06:58 Labs: Abnormal Lab Results - Last 24 Hours (Table) 12/01/19 12/01/19 12/01/19 Range/Units 12:05 16:59 19:47 WBC (3.8-10.6) k/uL Hgb (11.4-16.0) gm/dL MCV (80.0-100.0) fL MCH (25.0-35.0) pg MCHC (31.0-37.0) g/dL RDW (11.5-15.5) % Plt Count (150-450) k/uL Neutrophils # (1.3-7.7) k/uL Monocytes # (0-1.0) k/uL Sodium (137-145) mmol/L Chloride (98-107) mmol/L Carbon Dioxide (22-30) mmol/L BUN (7-17) mg/dL Glucose (74-99) mg/dL POC Glucose (mg/dL) 158 H 288 H 418 H (75-99) mg/dL ALT (4-34) U/L 12/02/19 12/02/19 12/02/19 Range/Units 06:29 06:58 06:58 WBC 13.7 H (3.8-10.6) k/uL Hgb 10.3 L (11.4-16.0) gm/dL MCV 69.0 L (80.0-100.0) fL MCH 20.4 L (25.0-35.0) pg MCHC 29.7 L (31.0-37.0) g/dL RDW 17.3 H (11.5-15.5) % Plt Count 527 H (150-450) k/uL Neutrophils # 9.0 H (1.3-7.7) k/uL Monocytes # 1.2 H (0-1.0) k/uL Sodium 134 L (137-145) mmol/L Chloride 92 L (98-107) mmol/L Carbon Dioxide 33 H (22-30) mmol/L BUN 35 H (7-17) mg/dL Glucose 140 H (74-99) mg/dL POC Glucose (mg/dL) 173 H (75-99) mg/dL ALT 36 H (4-34) U/L Microbiology - Last 24 Hours (Table) 11/27/19 14:42 Blood Culture - Preliminary Blood No Growth after 96 hours Assessment and Plan Assessment: Acute pulmonary edema Acute hypoxic respiratory failure Altered mental status multifactorial related to benzodiazepine given for the procedure as well as sleep apnea and pulmonary edema, improved now Non-ST segment elevated FL Ischemic cardiomyopathy with acute on chronic systolic failure echocardiogram recent revealed ejection fraction of 35% Coronary artery disease with new stent placement in proximal LAD with history of multiple stent placement, together she have total of 6 to stand now Acute COPD exacerbation Left lower lobe pneumonia Sleep disorder breathing and sleep apnea Hypertension and hypertensive cardiovascular disease Dyslipidemia Plan: Continue diuresis as planned noted above Titrate oxygen as tolerated and keep saturation around 92% and above Continue antibiotics however can be changed to oral as well as steroid bronchodilators for now Cardiovascular services evaluation as noted above and outlined Will continue patient on bronchodilator with DuoNeb and Pulmicort Supplemental oxygen as needed to keep saturation over 92% Monitor clinical course closely further recommendations pending as per clinical response of the patient Time with Patient: Greater than 30
[2019-12-02] MEDS: METOCLOPRAMIDE 10 MG TAB PO PRN ×2 (11:42→16:24)
[2019-12-02 11:49] LABS: Glucose,Whole Blood 169 mg/dL (75-99)
--- NOTE | 2019-12-02 16:18 | PN ---
PROGRESS NOTE Mrs Brand is a lady with history of COPD, bronchial asthma, CAD prior and PCI. Her blood pressure is reasonably well controlled. Her ejection fraction is in the 35% to 40% range. We will discontinue amlodipine, increase lisinopril 20 mg b.i.d. Breathing is somewhat easier today. No chest discomfort. Vitals are stable. JVD is evident. S1-S2 heard normally. Short systolic murmur noted. Lungs reveal fair air entry. Abdomen and lower extremity exam unchanged. PLAN: Continue current medications. Based on clinical course we will make further recommendations. Hopefully she can be discharged soon. MMODL / IJN: [id number] /
[2019-12-02 16:53] LABS: Glucose,Whole Blood 234 mg/dL (75-99)
[2019-12-02 20:43] LABS: Glucose,Whole Blood 179 mg/dL (75-99)
[2019-12-02] MEDS: ATORVASTATIN 40 MG TAB PO SCH (21:00)
[2019-12-02] MEDS: PANTOPRAZOLE 40 MG TABLET PO SCH (21:01)
[2019-12-02] MEDS: MONTELUKAST 10 MG TAB PO SCH (21:01)
--- NOTE | 2019-12-02 23:19 | PN ---
PROGRESS NOTE 74-year-old white female, acute on chronic systolic heart failure, acute respiratory distress, pulmonary edema, altered mental status, status post STEMI, PTCA to the LAD. She has weaned down to 2 L. Temp 97, pulse 77, respiratory 16-20, blood pressure 123/72, O2 97. Cardiovascular S1-S2. Lungs transmitted upper airway sounds. Hematology negative Homans. Psych fair mood and affect. Neurologic, alert orient x3. Ophthalmologic, pupils equal, round, reactive to light and accommodation. Neurologic alert orient x3. Psych fair mood and affect. White count 30.7, hemoglobin 10.3, BUN 35, creatinine 0.95. ASSESSMENT: 1. Chronic obstructive pulmonary disease exacerbation. 2. Left lower lobe pneumonia. 3. Sleep disorder. 4. Hypertension. 5. Dyslipidemia. 6. Insulin-dependent diabetes mellitus. 7. Acute pulmonary edema. 8. Acute hypoxemic respiratory failure. 9. Non ST elevated myocardial infarction. 10.Ischemic cardiomyopathy, ejection fraction 35%. 11.Coronary artery disease with stent to left anterior descending, six stents. Prognosis guarded. Follow up as an outpatient. Hopefully discharge in 24 to 48 hours. MMODL / IJN: [id number] /
[2019-12-03 06:22] LABS: Glucose,Whole Blood 161 mg/dL (75-99)
[2019-12-03] MEDS: INSULIN ASPART (NovoLOG) 100 UNIT/ML VIAL SQ SCH ×4 (07:09→12:41)
[2019-12-03] MEDS: METOPROLOL TARTRATE 25 MG TAB PO SCH ×2 (08:00→15:09)
[2019-12-03] MEDS: FUROSEMIDE 40 MG TAB PO SCH ×2 (08:00→15:10)
[2019-12-03] MEDS: hydroCHLOROthiazide 25 MG TAB PO SCH (08:00)
[2019-12-03] MEDS: ASPIRIN 81 MG PO SCH (08:00)
[2019-12-03] MEDS: RANOLAZINE 500 MG TAB.ER.12H PO SCH (08:01)
[2019-12-03] MEDS: DICYCLOMINE 10 MG CAP PO SCH (08:01)
[2019-12-03] MEDS: HYDROcodone/APAP 7.5-325MG 1 EACH TAB PO PRN ×2 (08:01→15:10)
[2019-12-03] MEDS: CLOPIDOGREL 75 MG TAB PO SCH (08:01)
[2019-12-03] MEDS: SUCRALFATE 1 GM TAB PO SCH ×3 (08:01→15:10)
[2019-12-03] MEDS: METOCLOPRAMIDE 10 MG TAB PO PRN ×3 (08:02→15:09)
[2019-12-03] MEDS: MAGNESIUM OXIDE 400 MG TAB PO SCH (08:02)
[2019-12-03] MEDS: ISOSORBIDE MONONITRATE ER 60 MG TAB.ER.24H PO SCH (08:02)
[2019-12-03] MEDS: lisinopriL 20 MG TAB PO SCH (08:02)
[2019-12-03] MEDS: INSULN ASP PRT/INSULIN ASPART 100 UNIT/ML 10 ML VIAL SQ SCH (08:03)
[2019-12-03] MEDS: IPRATROPIUM-ALBUTEROL 3 ML NEB INHALATION SCH ×3 (08:07→16:12)
[2019-12-03] MEDS: SYMBICORT 80-4.5 MCG INHALER INHALATION SCH (08:07)
[2019-12-03 08:48] LABS: Anisocytosis Slight; Basophils % (A) 0 %; Eosinophils # (A) 0.3 k/uL (0-0.7); Eosinophils % (A) 2 %; HCT 35.6 % (34.0-46.0); HGB 10.2 gm/dL (11.4-16.0); Hypochromasia Marked; Lymphocytes # (A) 2.9 k/uL (1.0-4.8); Lymphocytes % (A) 21 %; MCHC 28.6 g/dL (31.0-37.0); Mean Platelet Volume 6.8; Microcytosis Marked; Monocytes # (A) 0.8 k/uL (0-1.0); Monocytes % (A) 6 %; Neutrophils # (A) 9.6 k/uL (1.3-7.7); Neutrophils % (A) 69 %; Platelet Count 523 k/uL (150-450); RBC 5.08 m/uL (3.80-5.40); RDW 17.3 % (11.5-15.5)
[2019-12-03 08:55] LABS: Albumin 3.4 g/dL (3.5-5.0); Calcium 9.2 mg/dL (8.4-10.2); Potassium 4.4 mmol/L (3.5-5.1); Total Bilirubin 0.5 mg/dL (0.2-1.3); Total Protein 6.4 g/dL (6.3-8.2)
[2019-12-03 11:23] LABS: Glucose,Whole Blood 128 mg/dL (75-99)
--- NOTE | 2019-12-03 13:38 | PN ---
PROGRESS NOTE Mrs. Brand is doing better. She is comfortable resting. Denies any chest pain or shortness of breath. She had stenting of circumflex performed. Vitals are stable. There is JVD of 1 cm. No carotid bruit. S1-S2 heard normally. Short systolic murmur noted. Lungs reveal improved air entry. Abdomen and lower extremity exam unchanged. Plan is to continue current medications and increase activity and she can be discharged today. MMODL / IJN: [id number] /
[2019-12-03 15:09] VITALS: BP 102/56; RESP 16; TEMP 99
[2019-12-03 16:33] VITALS: PULSE 80
[2019-12-03 16:55] LABS: Glucose,Whole Blood 224 mg/dL (75-99)
== END 2019-12-03 17:05 | disposition home or self-care (01) | DRG 246 ==
LOC: EC 19:40 → 3SCARD 20:53 → 3NCARDOBS 11-27 04:19 → 3SCARD 11-27 04:24 → 2SICU 11-27 15:35 → OBSVTOIN 11-28 07:21 → 3SCARD 12-01 18:47
PROVIDERS: ADMIT Family Medicine; ATTEND Family Medicine
PROC: 027034Z Dilation of Coronary Artery, One Artery with Drug-eluting Intraluminal Device, Percutaneous Approach (ICD-10-PCS; principal; 2019-11-27 13:55)
PROC: B2111ZZ Fluoroscopy of Multiple Coronary Arteries using Low Osmolar Contrast (ICD-10-PCS; 2019-11-27 13:55)
PROC: 4A023N7 Measurement of Cardiac Sampling and Pressure, Left Heart, Percutaneous Approach (ICD-10-PCS; 2019-11-27 13:55)
DX: I21.4 Non-ST elevation (NSTEMI) myocardial infarction (principal); I50.23 Acute on chronic systolic (congestive) heart failure; J96.01 Acute respiratory failure with hypoxia; G93.41 Metabolic encephalopathy; J18.9 Pneumonia, unspecified organism; R57.0 Cardiogenic shock; J44.1 Chronic obstructive pulmonary disease with (acute) exacerbation; J44.0 Chronic obstructive pulmonary disease with (acute) lower respiratory infection; I11.0 Hypertensive heart disease with heart failure; G47.33 Obstructive sleep apnea (adult) (pediatric); E87.5 Hyperkalemia; E78.5 Hyperlipidemia, unspecified; E66.01 Morbid (severe) obesity due to excess calories; E78.00 Pure hypercholesterolemia, unspecified; E11.40 Type 2 diabetes mellitus with diabetic neuropathy, unspecified; I25.5 Ischemic cardiomyopathy; I25.10 Atherosclerotic heart disease of native coronary artery without angina pectoris; Z20.828 Contact with and (suspected) exposure to other viral communicable diseases; M19.90 Unspecified osteoarthritis, unspecified site; Z87.891 Personal history of nicotine dependence; Z79.899 Other long term (current) drug therapy; Z95.5 Presence of coronary angioplasty implant and graft; Z79.82 Long term (current) use of aspirin; Z79.4 Long term (current) use of insulin; Z79.02 Long term (current) use of antithrombotics/antiplatelets; Z88.0 Allergy status to penicillin; Z88.8 Allergy status to other drugs, medicaments and biological substances; Z91.018 Allergy to other foods; Z91.09 Other allergy status, other than to drugs and biological substances; Z87.01 Personal history of pneumonia (recurrent); I25.2 Old myocardial infarction; Z68.38 Body mass index [BMI] 38.0-38.9, adult; Z90.49 Acquired absence of other specified parts of digestive tract; Z90.89 Acquired absence of other organs; Z98.890 Other specified postprocedural states; Z80.9 Family history of malignant neoplasm, unspecified; Z82.49 Family history of ischemic heart disease and other diseases of the circulatory system
CPT/HCPCS: 36415; 36600; 71045; 71046; 80048; 80053; 80061; 82805; 83605; 83735; 83880; 84484; 85025; 85379; 85610; 85730; 87040; 93005; 93306; 93454; 94640; 94660; 94760; 96365; 96366; 96375; 99291

== ENCOUNTER 2020-02-09 09:37 | Inpatient (IN) | payer MEDICARE, OTHER ==
[2020-02-09] MEDS ORDERED: MORPHINE SULFATE 4 MG/ML SYRINGE IV STA (09:54)
[2020-02-09] MEDS ORDERED: ASPIRIN 81 MG PO STA (09:54)
[2020-02-09] MEDS ORDERED: NITROGLYCERIN SL TABS 0.4 MG TAB SUBLINGUAL STA (09:54)
[2020-02-09] MEDS ORDERED: ONDANSETRON 4 MG/2 ML VIAL IVP STA ×2 (09:59→17:26)
--- NOTE | 2020-02-09 09:59 | ED ---
General Adult HPI - General Chief complaint: Chest Pain Stated complaint: Chest pain sob nausea Time Seen by Provider: 02/09/20 09:44 Source: patient Mode of arrival: wheelchair Limitations: no limitations - History of Present Illness Initial comments: Dictation was produced using [employer] dictation software. please excuse any grammatical, word or spelling errors. This patient was cared for during a federal and state declared state of emergency secondary to Covid 19 Chief Complaint: 74-year-old feel past medical history of coronary artery disease presents with chest pain History of Present Illness: Patient is a 74-year-old female presents today with chest pain. Patient has history of coronary artery disease. Most recently she had a coronary artery stent placed one month ago here at our hospital. Patient states she has a pressure-like sensation over her anterior chest. Denies any relation to the shoulders jaw or extremities. Patient states that pain is constant. She complains of nausea and diaphoresis. Patient explained exposure does not take any other anticoagulation medications. Patient states she's been trying to take nitroglycerin at home with no improvement of her pain symptoms. The ROS documented in this emergency department record has been reviewed and confirmed by me. Those systems with pertinent positive or negative responses have been documented in the HPI. All other systems are other negative and/or noncontributory. PHYSICAL EXAM: General Impression: Alert and oriented x3, mild distress secondary to pain HEENT: Normocephalic atraumatic, extra-ocular movements intact, pupils equal and reactive to light bilaterally, mucous membranes moist. Cardiovascular: Heart regular rate and rhythm, no murmurs Chest: Able to complete full sentences, no retractions, no tachypnea, lungs clear to auscultation bilaterally Abdomen: abdomen soft, non-tender, non-distended, no organomegaly Musculoskeletal: Pulses present and equal in all extremities, no peripheral edema Motor: no focal deficits noted Neurological: CN II-XII grossly intact, no focal motor or sensory deficits noted Skin: Intact with no visualized rashes Psych: Normal affect and mood ED course: 74-year-old female presents with chest pain concerning for acute coronary syndrome signs upon arrival are within acceptable limits. Chart review was performed. On November 26 patient and identified 80% blockage of left anterior descending artery. Coronary stent was placed at that time. EKG today is benign showing no findings of infarction. There is perhaps mild ST depressions in the lateral precordial leads. Patient given aspirin and nitroglycerin. Serial EKGs were ordered showing no dynamic changes. Patient reevaluated at bedside still has some chest symptoms and dizziness. Perhaps patient's symptoms are GI in nature. Patient given GI cocktail. So far at this point there is no objective findings to suggest that patient's symptoms are secondary to acute coronary syndrome. Patient given aspirin. Nonetheless patient will be admitted for cardiac monitoring, cardiology consult. Patient is agreeable to plan. EKG interpretation: Ventricular rate 83, sinus rhythm, MI interval 212, QRS 90, QTc 453. No MI prolongation, no QTC prolongation. When compared to EKG from 11/26/[address] depressions in lateral precordial leads. - Related Data Home Medications Medication Instructions Recorded Confirmed Cholecalciferol [Vitamin D3 (25 1,000 unit PO DAILY 02/26/15 02/09/20 Mcg = 1000 Iu)] Clopidogrel [Plavix] 75 mg PO DAILY 09/05/15 02/09/20 [place]-3 Fatty Acids [[place]-3] 2,000 mg PO DAILY 09/29/18 02/09/20 Dicyclomine [Bentyl] 10 mg PO DAILY 04/16/19 02/09/20 Fluticasone/Umeclidin/Vilanter 1 puff INHALATION RT-DAILY 07/07/19 02/09/20 [Trelegy Ellipta 100-62.5-25] Dulaglutide [Trulicity] 1.5 mg SQ KISER 08/15/19 02/09/20 Furosemide [Lasix] 40 mg PO BID 08/15/19 02/09/20 Insulin Aspart Protam & Aspart 30 unit SQ BID 08/15/19 02/09/20 [NovoLOG MIX 70-30 Flexpen] Metoclopramide [Reglan] 10 mg PO QID PRN 08/15/19 02/09/20 Magnesium Oxide 400 mg PO DAILY 11/02/19 02/09/20 rOPINIRole HCL [Requip] 4 mg PO TID 11/02/19 02/09/20 Formoterol Fumarate [Perforomist] 20 mcg INHALATION RT-BID 11/26/19 02/09/20 levalbuterol HCL [Levalbuterol HCl] 0.63 mg INHALATION RT-QID 11/26/19 02/09/20 Aspirin EC [Ecotrin] 325 mg PO DAILY 02/09/20 02/09/20 Atorvastatin [Lipitor] 80 mg PO HS 02/09/20 02/09/20 Ciprofloxacin HCl [Cipro] 500 mg PO Q12HR 02/09/20 02/09/20 Ferrous Sulfate [Feosol] 325 mg PO DAILY 02/09/20 02/09/20 Metoprolol Tartrate [Lopressor] 50 mg PO BID 02/09/20 02/09/20 metFORMIN HCL 1,000 mg PO BID 02/09/20 02/09/20 Previous Rx's Medication Instructions Recorded Montelukast Sodium [Singulair] 10 mg PO HS #30 tab 10/25/15 Nitroglycerin Sl Tabs [Nitrostat] 0.4 mg SUBLINGUAL Q5M PRN #0 tab 09/24/16 Isosorbide Mononitrate ER [Imdur] 60 mg PO DAILY #30 tab.er.24h 11/17/18 Acetaminophen Tab [Tylenol] 500 mg PO Q6HR PRN tab 06/23/19 HYDROcodone/APAP 7.5-325MG [Peel 1 tab PO Q6H PRN #12 tab 09/04/19 7.5-325] Omeprazole [PriLOSEC] 40 mg PO HS #30 cap 11/08/19 Ranolazine [Ranexa] 500 mg PO Q12HR #60 tab.er.12h 11/08/19 lisinopriL [Zestril] 20 mg PO BID tab 12/03/19 Allergies Allergy/AdvReac Type Severity Reaction Status Date / Time amoxicillin [From Augmentin] Allergy Rash/Hives Verified 02/09/20 10:47 clavulanic acid Allergy Rash/Hives Verified 02/09/20 10:47 [From Augmentin] metronidazole [From Flagyl] Allergy Nausea & Verified 02/09/20 10:47 Vomiting adhesive tape AdvReac bruises,"paper Verified 02/09/20 10:47 tape is ok" albuterol AdvReac Rapid Verified 02/09/20 10:47 Heart Rate stress test injection Allergy Anaphylaxis Uncoded 02/09/20 09:41 sun dried tomatoes Allergy lip Uncoded 02/09/20 09:41 swelling Review of Systems ROS Statement: Those systems with pertinent positive or pertinent negative responses have been documented in the HPI. ROS Other: All systems not noted in ROS Statement are negative. Past Medical History Past Medical History: Asthma, Coronary Artery Disease (CAD), Heart Failure, COPD, Diabetes Mellitus, Hyperlipidemia, Hypertension, Myocardial Infarction ([place]), Osteoarthritis (OA), Pneumonia, Renal Disease, Skin Disorder, Sleep Apnea/CPAP/BIPAP Additional Past Medical History / Comment(s): NIDDM type II, neuropathy bilateral feet, bilateral diabetic ulcers with 2ndary cellulitis, colitis with recent flare, recent r side pneumonia, renal insufficiency, IRA with no device, home oxygen at 2L/NC at HS, RLS, diarrhea. Last Myocardial Infarction Date:: 2017 History of Any Multi-Drug Resistant Organisms: None Reported Past Surgical History: Appendectomy, Breast Surgery, Cholecystectomy, Heart Catheterization, Heart Catheterization With Stent Additional Past Surgical History / Comment(s): PCI with stents, R lung thoracotomy/decortication for empyema, L breast benign bx, colonoscopy Past Anesthesia/Blood Transfusion Reactions: No Reported Reaction Additional Past Anesthesia/Blood Transfusion Reaction / Comment(s): severe claustrophobia Date of Last Stent Placement:: 11/30/2017 Past Psychological History: No Psychological Hx Reported Smoking Status: Former smoker Past Alcohol Use History: None Reported Past Drug Use History: None Reported - Past Family History Brother(s) Family Medical History: Cancer Father Family Medical History: Chest Pain / Angina Additional Family Medical History / Comment(s): Father of a [place] at the age of 77yrs. Mother Family Medical History: Chest Pain / Angina Additional Family Medical History / Comment(s): Mother of a [place] at the age of 74yrs. General Exam Limitations: no limitations Course Vital Signs 02/09/20 02/09/20 02/09/20 09:38 10:30 12:24 Temperature 98.2 F Pulse Rate 71 73 79 Respiratory 18 20 16 Rate Blood Pressure 173/75 160/72 189/79 O2 Sat by Pulse 98 96 97 Oximetry Medical Decision Making - Lab Data Result diagrams: 02/09/20 10:17 02/09/20 10:17 Lab Results 02/09/20 02/09/20 02/09/20 Range/Units 10:17 10:17 10:17 WBC 16.3 H (3.8-10.6) k/uL RBC 5.06 (3.80-5.40) m/uL Hgb 10.4 L (11.4-16.0) gm/dL Hct 33.8 L (34.0-46.0) % MCV 66.8 L (80.0-100.0) fL MCH 20.5 L (25.0-35.0) pg MCHC 30.7 L (31.0-37.0) g/dL RDW 17.3 H (11.5-15.5) % Plt Count 446 (150-450) k/uL Neutrophils % 73 % Lymphocytes % 20 % Monocytes % 4 % Eosinophils % 2 % Basophils % 0 % Neutrophils # 11.9 H (1.3-7.7) k/uL Lymphocytes # 3.2 (1.0-4.8) k/uL Monocytes # 0.6 (0-1.0) k/uL Eosinophils # 0.3 (0-0.7) k/uL Basophils # 0.0 (0-0.2) k/uL Hypochromasia Marked Anisocytosis Slight Microcytosis Marked PT 9.4 (9.0-12.0) sec INR 0.9 (<1.2) APTT 24.2 (22.0-30.0) sec D-Dimer 1.58 H (<0.60) mg/L FEU Sodium 125 L (137-145) mmol/L Potassium 5.2 H (3.5-5.1) mmol/L Chloride 91 L (98-107) mmol/L Carbon Dioxide 23 (22-30) mmol/L Anion Gap 11 mmol/L BUN 14 (7-17) mg/dL Creatinine 0.76 (0.52-1.04) mg/dL Est GFR (CKD-EPI)AfAm >90 (>60 ml/min/1.73 sqM) Est GFR (CKD-EPI)NonAf 79 (>60 ml/min/1.73 sqM) Glucose 130 H (74-99) mg/dL Calcium 9.6 (8.4-10.2) mg/dL Magnesium 1.3 L (1.6-2.3) mg/dL Total Bilirubin 0.5 (0.2-1.3) mg/dL AST 33 (14-36) U/L ALT 24 (4-34) U/L Alkaline Phosphatase 104 (38-126) U/L Troponin I (0.000-0.034) ng/mL Total Protein 7.2 (6.3-8.2) g/dL Albumin 4.0 (3.5-5.0) g/dL Lipase 68 (23-300) U/L 02/09/20 Range/Units 10:17 WBC (3.8-10.6) k/uL RBC (3.80-5.40) m/uL Hgb (11.4-16.0) gm/dL Hct (34.0-46.0) % MCV (80.0-100.0) fL MCH (25.0-35.0) pg MCHC (31.0-37.0) g/dL RDW (11.5-15.5) % Plt Count (150-450) k/uL Neutrophils % % Lymphocytes % % Monocytes % % Eosinophils % % Basophils % % Neutrophils # (1.3-7.7) k/uL Lymphocytes # (1.0-4.8) k/uL Monocytes # (0-1.0) k/uL Eosinophils # (0-0.7) k/uL Basophils # (0-0.2) k/uL Hypochromasia Anisocytosis Microcytosis PT (9.0-12.0) sec INR (<1.2) APTT (22.0-30.0) sec D-Dimer (<0.60) mg/L FEU Sodium (137-145) mmol/L Potassium (3.5-5.1) mmol/L Chloride (98-107) mmol/L Carbon Dioxide (22-30) mmol/L Anion Gap mmol/L BUN (7-17) mg/dL Creatinine (0.52-1.04) mg/dL Est GFR (CKD-EPI)AfAm (>60 ml/min/1.73 sqM) Est GFR (CKD-EPI)NonAf (>60 ml/min/1.73 sqM) Glucose (74-99) mg/dL Calcium (8.4-10.2) mg/dL Magnesium (1.6-2.3) mg/dL Total Bilirubin (0.2-1.3) mg/dL AST (14-36) U/L ALT (4-34) U/L Alkaline Phosphatase (38-126) U/L Troponin I <0.012 (0.000-0.034) ng/mL Total Protein (6.3-8.2) g/dL Albumin (3.5-5.0) g/dL Lipase (23-300) U/L Disposition Clinical Impression: Chest pain Disposition: ADMITTED IP TO THIS HOSP Condition: Fair Referrals: Medardo Grande MD [Primary Care Provider] - 1-2 days Decision Time: 12:38
[2020-02-09 10:36] LABS: Anisocytosis Slight; Basophils % (A) 0 %; Eosinophils # (A) 0.3 k/uL (0-0.7); Eosinophils % (A) 2 %; HCT 33.8 % (34.0-46.0); HGB 10.4 gm/dL (11.4-16.0); Hypochromasia Marked; Lymphocytes # (A) 3.2 k/uL (1.0-4.8); Lymphocytes % (A) 20 %; MCH 20.5 pg (25.0-35.0); MCHC 30.7 g/dL (31.0-37.0); MCV 66.8 fL (80.0-100.0); Mean Platelet Volume 6.3; Microcytosis Marked; Monocytes # (A) 0.6 k/uL (0-1.0); Monocytes % (A) 4 %; Neutrophils # (A) 11.9 k/uL (1.3-7.7); Neutrophils % (A) 73 %; Platelet Count 446 k/uL (150-450); RBC 5.06 m/uL (3.80-5.40); RDW 17.3 % (11.5-15.5); WBC 16.3 k/uL (3.8-10.6)
--- NOTE | 2020-02-09 10:38 | XR ---
EXAMINATION TYPE: XR chest 2V DATE OF EXAM: 02/09/2020 COMPARISON: 11/30/2019 INDICATION: Short of breath TECHNIQUE: Frontal and lateral views of the chest are obtained. FINDINGS: The heart size is normal. The pulmonary vasculature is somewhat prominent. The lungs are clear. IMPRESSION: 1. Correlate for mild volume overload.
[2020-02-09 10:49] LABS: ALT 24 U/L (4-34); AST 33 U/L (14-36); African American GFR (CKD) >90 (>60 ml/min/1.73 sqM); Alkaline Phosphatase 104 U/L (38-126); Anion Gap 11 mmol/L; Blood Urea Nitrogen 14 mg/dL (7-17); Calcium 9.6 mg/dL (8.4-10.2); Carbon Dioxide 23 mmol/L (22-30); Chloride 91 mmol/L (98-107); Glucose 130 mg/dL (74-99); Magnesium 1.3 mg/dL (1.6-2.3); Non-African American GFR(CKD) 79 (>60 ml/min/1.73 sqM); Potassium 5.2 mmol/L (3.5-5.1); Sodium 125 mmol/L (137-145); Total Bilirubin 0.5 mg/dL (0.2-1.3); Total Protein 7.2 g/dL (6.3-8.2)
[2020-02-09 10:51] LABS: INR 0.9 (<1.2); Partial Thromboplastin Time 24.2 sec (22.0-30.0); Prothrombin Time 9.4 sec (9.0-12.0)
[2020-02-09 11:06] LABS: D-Dimer 1.58 mg/L FEU (<0.60)
--- NOTE | 2020-02-09 12:24 | CT ---
EXAMINATION TYPE: CT angio chest DATE OF EXAM: 02/09/2020 COMPARISON: CT 01/06/2018 HISTORY: Shortness of breath and chest pain CT DLP: 467.5 mGycm Automated exposure control for dose reduction was used. CONTRAST: CTA scan of the thorax is performed with IV Contrast, patient injected with 100 mL of Isovue 300, pul monary embolism protocol. MIP images are created and reviewed. 3D reconstructed images are created on an independent workstation and reviewed. FINDINGS: LUNGS: The lungs are stable, there is no concerning parenchymal mass or nodule identified, centrilobu lar emphysematous changes are again noted. There is no pleural effusion or pneumothorax seen. The tracheobronchial tree is patent. AORTA: No additional significant abnormality is seen. MEDIASTINUM: There is satisfactory enhancement of the pulmonary artery and its branches, there is no CT evidence for pulmonary embolism. There are no greater than 1 cm hilar or mediastinal lymph nodes. Intimal pericardial effusion is seen. There are coronary artery calcifications. OTHER: Distortion of the posterior right ribs is again seen. IMPRESSION: NO PULMONARY EMBOLISM. EMPHYSEMA. CORONARY ARTERY DISEASE.
[2020-02-09] MEDS ORDERED: METOCLOPRAMIDE 5 MG/ML 2 ML VIAL IVP STA (12:25)
[2020-02-09] MEDS ORDERED: MAG HYDROX/AL HYDROX/SIMETH 30 ML, HYOSCYAMINE ELIXIR 10 ML, LIDOCAINE VISCOUS 2% 10 ML PO STA ×3 (12:30)
[2020-02-09] MEDS ORDERED: SODIUM CHLORIDE 0.9% 1,000 ML IV STA (12:41)
[2020-02-09] MEDS: MAGNESIUM SULFATE-D5W PMX 1 GM in DEXTROSE/WATER 1 100ML.BAG IVPB SCH ×2 (12:52→15:46)
--- NOTE | 2020-02-09 14:44 | P.CRDCN ---
History of Present Illness Consult date: 02/09/20 Chief complaint: Chest pain History of present illness: This is a very pleasant 74-year-old female patient was coronary artery disease and prior coronary stenting where she underwent double vessel stenting in the past as well as diabetes and hypertension and dyslipidemia presented to the emergency room complaining of chest discomfort. The patient was in her usual state of health until earlier today when she started experiencing discomfort in the mid of the chest as a pressure on the chest without any radiation to the arms or neck or shoulders and without any associated symptoms of sweating or dizziness or lightheadedness or feeling of heart racing or fluttering or syncope. Currently she is chest pain-free. The EKG showed sinus mechanism without any significant ST or T-wave abnormalities. The first set of troponin came in to be unremarkable. D-dimer came in to be elevated but subsequent CTA of the chest did not show any pulmonary embolism. As a mentioned earlier the patient currently chest pain-free. Her WBC came in to be elevated presented to the hospital. The patient stated that she has been compliant with all of her m edications until she presented to the hospital. Past Medical History Past Medical History: Asthma, Coronary Artery Disease (CAD), Heart Failure, COPD, Diabetes Mellitus, GERD/Reflux, Hyperlipidemia, Hypertension, Myocardial Infarction (MO), Osteoarthritis (OA), Pneumonia, Renal Disease, Skin Disorder, Sleep Apnea/CPAP/BIPAP Additional Past Medical History / Comment(s): Pt states just admitted to [facility] as a direct admit for bilateral foot sores/infection and they determined she did not have osteomyelitis. 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 with cardiogenic shock/pulmonary edema/respiratory failure, cardiomyopathy, NIDDM type II, neuropathy bilateral feet, bilateral diabetic foot ulcers, past cellulitis, pneumonias, past R lung pne with empyema/surgery, gastritis, colitis/frequent diarrhea, benign colon polyps, renal disease stage III, IRA with no device used d/t severe clausterphobia, home oxygen at 2L/NC at HS, occasional lower leg edema, RLS, Last Myocardial Infarction Date:: 2019 History of Any Multi-Drug Resistant Organisms: None Reported Past Surgical History: Appendectomy, Breast Surgery, Cholecystectomy, Heart Catheterization, Heart Catheterization With Stent Additional Past Surgical History / Comment(s): PCI with stents, R lung thoracotomy/decortication for empyema, bilateral feet/sores debrided, L breast benign bx, colonoscopy/benign polypectomy, EGD Past Anesthesia/Blood Transfusion Reactions: No Reported Reaction Additional Past Anesthesia/Blood Transfusion Reaction / Comment(s): severe claustrophobia Date of Last Stent Placement:: 11/27/19 Past Psychological History: No Psychological Hx Reported Additional Psychological History / Comment(s): Severe claustrophobia. Pt resides alone in her home. She has 14 stair steps to get up to her bathroom/bedroom. She is established with [facility]- a nurse for wound care and PT and has Dr. Kebede for home wound care. Smoking Status: Former smoker Past Alcohol Use History: None Reported Additional Past Alcohol Use History / Comment(s): STARTED SMOKING AGE 18 (1961) AND QUIT 1994. SMOKED 1 PPD. STATES SHE IS AN ALCOHOLIC AND QUIT DRINKING over 30 yrs ago Past Drug Use History: None Reported - Past Family History Brother(s) Family Medical History: Cancer Additional Family Medical History / Comment(s): Colon cancer Father Family Medical History: Chest Pain / Angina Additional Family Medical History / Comment(s): Father of a MO at the age of 77yrs. Mother Family Medical History: Chest Pain / Angina Additional Family Medical History / Comment(s): Mother of a MO at the age of 74yrs. Medications and Allergies Home Medications Medication Instructions Recorded Confirmed Type Cholecalciferol [Vitamin D3 (25 1,000 unit PO DAILY 02/26/15 02/09/20 History Mcg = 1000 Iu)] Clopidogrel [Plavix] 75 mg PO DAILY 09/05/15 02/09/20 History Montelukast Sodium [Singulair] 10 mg PO HS #30 tab 10/25/15 02/09/20 Rx Nitroglycerin Sl Tabs [Nitrostat] 0.4 mg SUBLINGUAL Q5M PRN #0 tab 09/24/16 02/09/20 Rx [place]-3 Fatty Acids [[place]-3] 2,000 mg PO DAILY 09/29/18 02/09/20 History Isosorbide Mononitrate ER [Imdur] 60 mg PO DAILY #30 tab.er.24h 11/17/18 02/09/20 Rx Dicyclomine [Bentyl] 10 mg PO DAILY 04/16/19 02/09/20 History Acetaminophen Tab [Tylenol] 500 mg PO Q6HR PRN tab 06/23/19 02/09/20 Rx Fluticasone/Umeclidin/Vilanter 1 puff INHALATION RT-DAILY 07/07/19 02/09/20 History [[place] Ellipta 100-62.5-25] Dulaglutide [Trulicity] 1.5 mg SQ KISER 08/15/19 02/09/20 History Furosemide [Lasix] 40 mg PO BID 08/15/19 02/09/20 History Insulin Aspart Protam & Aspart 30 unit SQ BID 08/15/19 02/09/20 History [NovoLOG MIX 70-30 Flexpen] Metoclopramide [Reglan] 10 mg PO QID PRN 08/15/19 02/09/20 History HYDROcodone/APAP 7.5-325MG [[place] 1 tab PO Q6H PRN #12 tab 09/04/19 02/09/20 Rx 7.5-325] Magnesium Oxide 400 mg PO DAILY 11/02/19 02/09/20 History rOPINIRole HCL [Requip] 4 mg PO TID 11/02/19 02/09/20 History Omeprazole [PriLOSEC] 40 mg PO HS #30 cap 11/08/19 02/09/20 Rx Ranolazine [Ranexa] 500 mg PO Q12HR #60 tab.er.12h 11/08/19 02/09/20 Rx Formoterol Fumarate [Perforomist] 20 mcg INHALATION RT-BID 11/26/19 02/09/20 History levalbuterol HCL [Levalbuterol HCl] 0.63 mg INHALATION RT-QID 11/26/19 02/09/20 History lisinopriL [Zestril] 20 mg PO BID tab 12/03/19 02/09/20 Rx Aspirin EC [Ecotrin] 325 mg PO DAILY 02/09/20 02/09/20 History Atorvastatin [Lipitor] 80 mg PO HS 02/09/20 02/09/20 History Ciprofloxacin HCl [Cipro] 500 mg PO Q12HR 02/09/20 02/09/20 History Ferrous Sulfate [Feosol] 325 mg PO DAILY 02/09/20 02/09/20 History Metoprolol Tartrate [Lopressor] 50 mg PO BID 02/09/20 02/09/20 History metFORMIN HCL 1,000 mg PO BID 02/09/20 02/09/20 History Allergies Allergy/AdvReac Type Severity Reaction Status Date / Time amoxicillin [From Augmentin] Allergy Rash/Hives Verified 02/09/20 10:47 clavulanic acid Allergy Rash/Hives Verified 02/09/20 10:47 [From Augmentin] metronidazole [From Flagyl] Allergy Nausea & Verified 02/09/20 10:47 Vomiting adhesive tape AdvReac bruises,"paper Verified 02/09/20 10:47 tape is ok" albuterol AdvReac Rapid Verified 02/09/20 10:47 Heart Rate stress test injection Allergy Anaphylaxis Uncoded 02/09/20 09:41 sun dried tomatoes Allergy lip Uncoded 02/09/20 09:41 swelling Physical Exam Vitals: Vital Signs Temp Pulse Resp BP Pulse Ox 02/09/20 14:05 85 16 163/67 99 02/09/20 12:24 79 16 189/79 97 02/09/20 10:30 73 20 160/72 96 02/09/20 09:38 98.2 F 71 18 173/75 98 Intake and Output 02/08/20 02/09/20 02/09/20 22:59 06:59 14:59 Other: Weight 109.769 kg - Constitutional General appearance: no acute distress - Respiratory Respiratory: bilateral: CTA - Cardiovascular Rhythm: regular Heart sounds: normal: S1, S2 Results 02/09/20 10:17 02/09/20 10:17 Cardiac Enzymes 02/09/20 02/09/20 Range/Units 10:17 10:17 AST 33 (14-36) U/L Troponin I <0.012 (0.000-0.034) ng/mL Coagulation 02/09/20 Range/Units 10:17 PT 9.4 (9.0-12.0) sec APTT 24.2 (22.0-30.0) sec CBC 02/09/20 Range/Units 10:17 WBC 16.3 H (3.8-10.6) k/uL RBC 5.06 (3.80-5.40) m/uL Hgb 10.4 L (11.4-16.0) gm/dL Hct 33.8 L (34.0-46.0) % Plt Count 446 (150-450) k/uL Comprehensive Metabolic Panel 02/09/20 Range/Units 10:17 Sodium 125 L (137-145) mmol/L Potassium 5.2 H (3.5-5.1) mmol/L Chloride 91 L (98-107) mmol/L Carbon Dioxide 23 (22-30) mmol/L BUN 14 (7-17) mg/dL Creatinine 0.76 (0.52-1.04) mg/dL Glucose 130 H (74-99) mg/dL Calcium 9.6 (8.4-10.2) mg/dL AST 33 (14-36) U/L ALT 24 (4-34) U/L Alkaline Phosphatase 104 (38-126) U/L Total Protein 7.2 (6.3-8.2) g/dL Albumin 4.0 (3.5-5.0) g/dL Current Medications Generic Name Dose Route Start Last Admin Trade Name Freq PRN Reason Stop Dose Admin Aspirin 325 mg 02/10/20 09:00 Aspirin 325 Mg Tab PO DAILY ANDREW Magnesium Sulfate/Dextrose 1 100 mls @ 100 mls/hr 02/09/20 12:45 02/09/20 12:52 gm/ IV Solution IVPB 02/09/20 14:44 100 mls/hr Q1H ANDREW Administration Nitroglycerin 0.4 mg 02/09/20 12:35 Nitroglycerin Sl Tabs 0.4 Mg Tab SUBLINGUAL Q5M PRN Chest Pain Intake and Output 02/08/20 02/09/20 02/09/20 22:59 06:59 14:59 Other: Weight 109.769 kg Patient Weight 02/10/20 06:59 Weight 109.769 kg 02/09/20 10:17 02/09/20 10:17 Assessment and Plan Assessment: Assessment #1 chest discomfort which has improved #2 coronary artery disease #3 hypertension #4 dyslipidemia #5 elevated WBC Plan #1 rule out acute coronary event #2 PE was ruled out #3 monitor the patient for additional 24 hours #4 further recommendation to follow that #5 of pressure control #6 follow up with the patient
[2020-02-09] MEDS: NITROGLYCERIN SL TABS 0.4 MG TAB SUBLINGUAL PRN ×6 (15:55→21:10)
[2020-02-09 17:56] LABS: Glucose,Whole Blood 245 mg/dL (75-99)
[2020-02-09] MEDS ORDERED: NITROGLYCERIN OINT 1 INCH/GM PACKET TOPICAL STA (19:10)
[2020-02-09 20:04] LABS: Glucose,Whole Blood 242 mg/dL (75-99)
[2020-02-09] MEDS ORDERED: ACETAMINOPHEN TAB 500 MG TAB PO PRN (20:39)
[2020-02-09] MEDS ORDERED: CIPROFLOXACIN HCL 500 MG TAB PO SCH (21:00)
[2020-02-09] MEDS ORDERED: METOPROLOL TARTRATE 50 MG TAB PO SCH (21:00)
[2020-02-09] MEDS: ONDANSETRON 4 MG/2 ML VIAL IVP PRN (21:06)
[2020-02-09] MEDS ORDERED: amLODIPine 5 MG TAB PO STA (21:38)
[2020-02-09] MEDS ORDERED: hydrALAZINE HCL 50 MG TAB PO PRN (21:41)
[2020-02-09] MEDS ORDERED: Magnesium Replacement Protocol 1 EACH MISC MISCELLANE PRN (21:42)
[2020-02-09] MEDS ORDERED: FUROSEMIDE 10 MG/ML 2 ML VIAL IV ONE (21:42)
--- NOTE | 2020-02-09 21:51 | P.HPIM ---
History of Present Illness On-call hospitalist covering for Dr. Grande This is a pleasant 74 years old female with multiple medical problems including asthma/COPD, coronary artery disease, heart failure, diabetes mellitus, hypertension, hyperlipidemia, GERD, osteoarthritis, sleep apnea on CPAP/BiPAP. Diabetic neuropathy, CTD stage III, chronic respiratory failure on 3L oxygen via nasal cannula. Patient was recently discharged from [facility] for Bilateral Feet Source with No Evidence of Osteomyelitis As per Patient. Presents Because of Chest Pain Which Started Yesterday and Last Night about 3- 4/10 in Severity, Central Nonradiating and [place] like Pressure Associated with Little Dyspnea and Nausea with Vomiting Once, Mainly Bile with No Blood. However Patient Denies Abdominal Pain and No Change in Her Urine Habits or Bowel Habits. She Denies Smoking, Alcohol or Illicit Drugs. Vitals are stable, blood pressure on the high side 183/77. Heart rate is 92. Labs showing WBC of 16.3 K, however her WBC is chronically elevated with baseline 11-16 K. Hemoglobin and platelets are normal, d-dimer was 1.5. Sodium was low is 125, however its chronically low around 130-133. EKG showed normal sinus rhythm at [address]-T changes. On admission she has CTA which was negative for PE Review of Systems CONSTITUTIONAL: No fever, no malaise, no fatigue. HEENT: No recent visual problems or hearing problems. Denied any sore throat. CARDIOVASCULAR: No orthopnea, PND, no palpitations, no syncope. PULMONARY: No shortness of breath, no cough, no hemoptysis. GASTROINTESTINAL: No diarrhea, no nausea, no vomiting, no abdominal pain. Normoactive bowel sounds. NEUROLOGICAL: No headaches, no weakness, no numbness. HEMATOLOGICAL: Denies any bleeding or petechiae. GENITOURINARY: Denies any burning micturition, frequency, or urgency. MUSCULOSKELETAL/RHEUMATOLOGICAL: Denies any joint pain, swelling, or any muscle pain. ENDOCRINE: Denies any polyuria or polydipsia. Past Medical History Past Medical History: Asthma, Coronary Artery Disease (CAD), Heart Failure, COPD, Diabetes Mellitus, GERD/Reflux, Hyperlipidemia, Hypertension, Myocardial Infarction (LA), Osteoarthritis (OA), Pneumonia, Renal Disease, Skin Disorder, Sleep Apnea/CPAP/BIPAP Additional Past Medical History / Comment(s): Pt states just admitted to [facility] as a direct admit for bilateral foot sores/infection and they determined she did not have osteomyelitis. Other hx: MIs with last LA 11/2019 with cardiogenic shock/pulmonary edema/respiratory failure, cardiomyopathy, NIDDM type II, neuropathy bilateral feet, bilateral diabetic foot ulcers, past cellulitis, pneumonias, past R lung pne with empyema/surgery, gastritis, colitis/frequent diarrhea, benign colon polyps, renal disease stage III, IRA with no device used d/t severe clausterphobia, home oxygen at 2L/NC at HS, occasional lower leg edema, RLS, Last Myocardial Infarction Date:: 2019 History of Any Multi-Drug Resistant Organisms: None Reported Past Surgical History: Appendectomy, Breast Surgery, Cholecystectomy, Heart Catheterization, Heart Catheterization With Stent Additional Past Surgical History / Comment(s): PCI with stents, R lung thoracotomy/decortication for empyema, bilateral feet/sores debrided, L breast benign bx, colonoscopy/benign polypectomy, EGD Past Anesthesia/Blood Transfusion Reactions: No Reported Reaction Additional Past Anesthesia/Blood Transfusion Reaction / Comment(s): severe claustrophobia Date of Last Stent Placement:: 11/27/19 Past Psychological History: No Psychological Hx Reported Additional Psychological History / Comment(s): Severe claustrophobia. Pt resides alone in her home. She has 14 stair steps to get up to her bathr oom/bedroom. She is established with [facility]- a nurse for wound care and PT and has Dr. Kebede for home wound care. Smoking Status: Former smoker Past Alcohol Use History: None Reported Additional Past Alcohol Use History / Comment(s): STARTED SMOKING AGE 18 (1961) AND QUIT 1994. SMOKED 1 PPD. STATES SHE IS AN ALCOHOLIC AND QUIT DRINKING over 30 yrs ago Past Drug Use History: None Reported - Past Family History Brother(s) Family Medical History: Cancer Additional Family Medical History / Comment(s): Colon cancer Father Family Medical History: Chest Pain / Angina Additional Family Medical History / Comment(s): Father of a LA at the age of 77yrs. Mother Family Medical History: Chest Pain / Angina Additional Family Medical History / Comment(s): Mother of a LA at the age of 74yrs. Medications and Allergies Home Medications Medication Instructions Recorded Confirmed Type Cholecalciferol [Vitamin D3 (25 1,000 unit PO DAILY 02/26/15 02/09/20 History Mcg = 1000 Iu)] Clopidogrel [Plavix] 75 mg PO DAILY 09/05/15 02/09/20 History Montelukast Sodium [Singulair] 10 mg PO HS #30 tab 10/25/15 02/09/20 Rx Nitroglycerin Sl Tabs [Nitrostat] 0.4 mg SUBLINGUAL Q5M PRN #0 tab 09/24/16 02/09/20 Rx [place]-3 Fatty Acids [[place]-3] 2,000 mg PO DAILY 09/29/18 02/09/20 History Isosorbide Mononitrate ER [Imdur] 60 mg PO DAILY #30 tab.er.24h 11/17/18 02/09/20 Rx Dicyclomine [Bentyl] 10 mg PO DAILY 04/16/19 02/09/20 History Acetaminophen Tab [Tylenol] 500 mg PO Q6HR PRN tab 06/23/19 02/09/20 Rx Fluticasone/Umeclidin/Vilanter 1 puff INHALATION RT-DAILY 07/07/19 02/09/20 History [[place] Ellipta 100-62.5-25] Dulaglutide [Trulicity] 1.5 mg SQ KISER 08/15/19 02/09/20 History Furosemide [Lasix] 40 mg PO BID 08/15/19 02/09/20 History Insulin Aspart Protam & Aspart 30 unit SQ BID 08/15/19 02/09/20 History [NovoLOG MIX 70-30 Flexpen] Metoclopramide [Reglan] 10 mg PO QID PRN 08/15/19 02/09/20 History HYDROcodone/APAP 7.5-325MG [[place] 1 tab PO Q6H PRN #12 tab 09/04/19 02/09/20 Rx 7.5-325] Magnesium Oxide 400 mg PO DAILY 11/02/19 02/09/20 History rOPINIRole HCL [Requip] 4 mg PO TID 11/02/19 02/09/20 History Omeprazole [PriLOSEC] 40 mg PO HS #30 cap 11/08/19 02/09/20 Rx Ranolazine [Ranexa] 500 mg PO Q12HR #60 tab.er.12h 11/08/19 02/09/20 Rx Formoterol Fumarate [Perforomist] 20 mcg INHALATION RT-BID 11/26/19 02/09/20 History levalbuterol HCL [Levalbuterol HCl] 0.63 mg INHALATION RT-QID 11/26/19 02/09/20 History lisinopriL [Zestril] 20 mg PO BID tab 12/03/19 02/09/20 Rx Aspirin EC [Ecotrin] 325 mg PO DAILY 02/09/20 02/09/20 History Atorvastatin [Lipitor] 80 mg PO HS 02/09/20 02/09/20 History Ciprofloxacin HCl [Cipro] 500 mg PO Q12HR 02/09/20 02/09/20 History Ferrous Sulfate [Feosol] 325 mg PO DAILY 02/09/20 02/09/20 History Metoprolol Tartrate [Lopressor] 50 mg PO BID 02/09/20 02/09/20 History metFORMIN HCL 1,000 mg PO BID 02/09/20 02/09/20 History Allergies Allergy/AdvReac Type Severity Reaction Status Date / Time amoxicillin [From Augmentin] Allergy Rash/Hives Verified 02/09/20 10:47 clavulanic acid Allergy Rash/Hives Verified 02/09/20 10:47 [From Augmentin] metronidazole [From Flagyl] Allergy Nausea & Verified 02/09/20 10:47 Vomiting adhesive tape AdvReac bruises,"paper Verified 02/09/20 10:47 tape is ok" albuterol AdvReac Rapid Verified 02/09/20 10:47 Heart Rate stress test injection Allergy Anaphylaxis Uncoded 02/09/20 09:41 sun dried tomatoes Allergy lip Uncoded 02/09/20 09:41 swelling Physical Exam Vitals: Vital Signs Temp Pulse Resp BP Pulse Ox 02/09/20 14:05 85 16 163/67 99 02/09/20 12:24 79 16 189/79 97 02/09/20 10:30 73 20 160/72 96 02/09/20 09:38 98.2 F 71 18 173/75 98 Intake and Output 02/09/20 02/09/20 02/09/20 06:59 14:59 22:59 Other: Weight 109.769 kg -GENERAL: The patient is alert and oriented x3, not in any acute distress. obese HEENT: Pupils are round and equally reacting to light. EOMI. No scleral icterus. No conjunctival pallor. Normocephalic, atraumatic. No pharyngeal erythema. No thyromegaly. CARDIOVASCULAR: S1 and S2 present. No murmurs, rubs, or gallops. PULMONARY: Chest is clear to auscultation, no wheezing or crackles. ABDOMEN: Soft, nontender, nondistended, normoactive bowel sounds. No palpable organomegaly. MUSCULOSKELETAL: No joint swelling or deformity. -EXTREMITIES: No cyanosis, clubbing,. Bilateral mild pedal edema. Bilateral small ulcers, deep about half inch in depth with clear-cut margin and no surrounding cellulitis NEUROLOGICAL: Gross neurological examination did not reveal any focal deficits. SKIN: No rashes. No petechiae Results CBC & Chem 7: 02/09/20 10:17 02/09/20 10:17 Labs: Abnormal Lab Results - Last 24 Hours (Table) 02/09/20 02/09/20 02/09/20 Range/Units 10:17 10:17 10:17 WBC 16.3 H (3.8-10.6) k/uL Hgb 10.4 L (11.4-16.0) gm/dL Hct 33.8 L (34.0-46.0) % MCV 66.8 L (80.0-100.0) fL MCH 20.5 L (25.0-35.0) pg MCHC 30.7 L (31.0-37.0) g/dL RDW 17.3 H (11.5-15.5) % Neutrophils # 11.9 H (1.3-7.7) k/uL D-Dimer 1.58 H (<0.60) mg/L FEU Sodium 125 L (137-145) mmol/L Potassium 5.2 H (3.5-5.1) mmol/L Chloride 91 L (98-107) mmol/L Glucose 130 H (74-99) mg/dL Magnesium 1.3 L (1.6-2.3) mg/dL Thrombosis Risk Factor Assmnt - Choose All That Apply Any of the Below Risk Factors Present?: Yes Each Factor Represents 1 point: Abnormal pulmonary function (COPD), Obesity (BMI >25), Swollen legs (current) Other Risk Factors: Yes Each Risk Factor Represents 2 Points: Age 61-74 years Other congenital or acquired thrombophilia - If yes, enter type in comment: No Thrombosis Risk Factor Assessment Total Risk Factor Score: 5 Thrombosis Risk Factor Assessment Level: High Risk Assessment and Plan Assessment: Chest pain, rule out cardiac causes. Chronic leukocytosis Recent history of bilateral small infections, she has bilateral small wounds with no surrounding cellulitis. Rule out DVT Hyponatremia Diabetes mellitus type 2 Hypertension, uncontrolled Hyperlipidemia Heart failure, chronic History of coronary artery disease COPD/asthma, not an active tissue GERD Osteoarthritis Sleep apnea on CPAP/BiPAP Diabetic neuropathy Chronic kidney disease stage III Chronic respiratory hypoxic failure on 2 L oxygen via nasal cannula Obesity Plan: This is a pleasant 74 years old female who presents with chest pain. Cardiology consult. Serial troponin. Check Doppler of the lower extremity to rule out DV T. Labs and medication were reviewed.. Continue same treatment. Continue with symptomatic treatment. Resume home medication. Monitor lytes and vitals. DVT and GI prophylaxis. Further recommendations depends on the clinical course of the patient DVT prophylaxis: Subcutaneous heparin GI Prophylaxis: Pepcid Prognosis is guarded
[2020-02-09] MEDS: HYDROcodone/APAP 7.5-325MG 1 EACH TAB PO PRN (21:56)
[2020-02-09] MEDS: ATORVASTATIN 80 MG TAB PO SCH (22:00)
[2020-02-09] MEDS: MONTELUKAST 10 MG TAB PO SCH (22:00)
[2020-02-09] MEDS: METOPROLOL TARTRATE 50 MG TAB PO SCH (22:00)
[2020-02-09] MEDS: lisinopriL 20 MG TAB PO SCH (22:00)
[2020-02-09] MEDS: RANOLAZINE 500 MG TAB.ER.12H PO SCH (22:00)
--- NOTE | 2020-02-09 22:31 | US ---
EXAMINATION TYPE: US venous doppler duplex LE DATE OF EXAM: 02/09/2020 10:17 PM COMPARISON: US CLINICAL HISTORY: Rule out DVT. Prior Right upper Femoral Vein and Upper DFV non occluding DVT 2013; severe chest pains, on Plavix; coronary artery stents per patient. SIDE PERFORMED: Bilateral TECHNIQUE: The lower extremity deep venous system is examined utilizing real time linear array sonog patricio with graded compression, doppler sonography and color-flow sonography. VESSELS IMAGED: Common Femoral Vein Deep Femoral Vein Greater Saphenous Vein * Femoral Vein Popliteal Vein Small Saphenous Vein * Proximal Calf Veins (* superficial vessels) Right Leg: is Positive for non occluding DVT Right upper Deep Femoral Vein (echogenic wall changes a re seen) Left Leg: Negative for DVT. Limited evaluation here as patient was having severe chest pains with co nstant patient movement and patient' s RN was at bedside. IMPRESSION: No evidence of deep vein thrombosis in the left leg. There is some chronic deep vein thro mbosis in the right leg.
[2020-02-09 23:17] LABS: Glucose,Whole Blood 228 mg/dL (75-99)
[2020-02-09] MEDS: rOPINIRole HCL 4 MG TABLET PO SCH (23:45)
[2020-02-09] MEDS: INSULIN ASPART (NovoLOG) 100 UNIT/ML VIAL SQ SCH (23:45)
[2020-02-10] MEDS: ONDANSETRON 4 MG/2 ML VIAL IVP PRN ×2 (03:06→17:05)
[2020-02-10 06:35] LABS: Glucose,Whole Blood 240 mg/dL (75-99)
[2020-02-10] MEDS: INSULIN ASPART (NovoLOG) 100 UNIT/ML VIAL SQ SCH ×4 (06:46→21:21)
[2020-02-10] MEDS: SYMBICORT 80-4.5 MCG INHALER INHALATION SCH ×2 (07:18→19:25)
[2020-02-10] MEDS: FORMOTEROL FUMARATE 20 MCG/2 ML NEBU INHALATION SCH ×2 (07:18→19:26)
[2020-02-10] MEDS: IPRATROPIUM 0.5 MG/2.5 ML NEBU INHALATION SCH ×4 (07:18→19:26)
[2020-02-10 07:47] LABS: Anisocytosis Slight; Basophils % (A) 0 %; Eosinophils # (A) 0.1 k/uL (0-0.7); Eosinophils % (A) 0 %; HCT 36.6 % (34.0-46.0); HGB 11.1 gm/dL (11.4-16.0); Hypochromasia Moderate; Lymphocytes # (A) 2.2 k/uL (1.0-4.8); Lymphocytes % (A) 11 %; MCHC 30.3 g/dL (31.0-37.0); MCV 65.8 fL (80.0-100.0); Mean Platelet Volume 6.7; Microcytosis Marked; Monocytes % (A) 5 %; Neutrophils % (A) 82 %; Platelet Count 497 k/uL (150-450); RBC 5.56 m/uL (3.80-5.40); RDW 17.6 % (11.5-15.5); WBC 19.5 k/uL (3.8-10.6)
[2020-02-10 08:04] LABS: African American GFR (CKD) >90 (>60 ml/min/1.73 sqM); Anion Gap 12 mmol/L; Blood Urea Nitrogen 11 mg/dL (7-17); Calcium 9.6 mg/dL (8.4-10.2); Carbon Dioxide 28 mmol/L (22-30); Chloride 86 mmol/L (98-107); Cholesterol 113 mg/dL (<200); Glucose 206 mg/dL (74-99); HDL Cholesterol 70 mg/dL (40-60); LDL Cholesterol,Calculated 21 mg/dL (0-99); Magnesium 1.6 mg/dL (1.6-2.3); Non-African American GFR(CKD) 87 (>60 ml/min/1.73 sqM); Potassium 4.5 mmol/L (3.5-5.1); Sodium 126 mmol/L (137-145); Triglycerides 110 mg/dL (<150)
[2020-02-10] MEDS: METOPROLOL TARTRATE 50 MG TAB PO SCH ×2 (08:31→20:00)
[2020-02-10] MEDS: DICYCLOMINE 10 MG CAP PO SCH (08:32)
[2020-02-10] MEDS: HEPARIN SODIUM,PORCINE 5,000 UNIT/ML 1 ML VIAL SQ SCH ×2 (08:32→19:59)
[2020-02-10] MEDS: ISOSORBIDE MONONITRATE ER 60 MG TAB.ER.24H PO SCH (08:32)
[2020-02-10] MEDS: CHOLECALCIFEROL 1,000 UNIT TAB PO SCH (08:32)
[2020-02-10] MEDS: lisinopriL 20 MG TAB PO SCH ×2 (08:32→20:00)
[2020-02-10] MEDS: amLODIPine 10 MG TAB PO SCH (08:32)
[2020-02-10] MEDS: MAGNESIUM OXIDE 400 MG TAB PO SCH (08:32)
[2020-02-10] MEDS: FERROUS SULFATE 325 MG TAB PO SCH (08:32)
[2020-02-10] MEDS: ASPIRIN 325 MG TAB PO SCH ×2 (08:32)
[2020-02-10] MEDS: RANOLAZINE 500 MG TAB.ER.12H PO SCH ×2 (08:32→20:01)
[2020-02-10] MEDS: CLOPIDOGREL 75 MG TAB PO SCH (08:32)
[2020-02-10] MEDS: rOPINIRole HCL 4 MG TABLET PO SCH ×3 (08:32→21:21)
[2020-02-10] MEDS ORDERED: FUROSEMIDE 10 MG/ML 4 ML VIAL IV STA (10:00)
--- NOTE | 2020-02-10 10:01 | P.PN ---
Subjective On-call hospitalist covering for Dr. Grande This is a pleasant 74 years old female with multiple medical problems including asthma/COPD, coronary artery disease, heart failure, diabetes mellitus, hypertension, hyperlipidemia, GERD, osteoarthritis, sleep apnea on CPAP/BiPAP. Diabetic neuropathy, CTD stage III, chronic respiratory failure on 3L oxygen via nasal cannula. Patient was recently discharged from [facility] for Bilateral Feet Source with No Evidence of Osteomyelitis As per Patient. Presents Because of Chest Pain Which Started Yesterday and Last Night about 3- 4/10 in Severity, Central Nonradiating and [place] like Pressure Associated with Little Dyspnea and Nausea with Vomiting Once, Mainly Bile with No Blood. However Patient Denies Abdominal Pain and No Change in Her Urine Habits or Bowel Habits. She Denies Smoking, Alcohol or Illicit Drugs. Vitals are stable, blood pressure on the high side 183/77. Heart rate is 92. Labs showing WBC of 16.3 K, however her WBC is chronically elevated with baseline 11-16 K. Hemoglobin and platelets are normal, d-dimer was 1.5. Sodium was low is 125, however its chronically low around 130-133. EKG showed normal sinus rhythm at [address]-T changes. On admission she has CTA which was negative for PE 02/10/2020 Patient is awake and alert, she was sitting at the bedside. She had dropped night because she complains from pain attack during the night and her left breast area that states was 10 point pain but now this is down to 2/10, however on palpation her pain was mainly in the xiphisternal Angle. Patient also complaining of from significant nausea but no vomiting, she was able to eat some of her breakfast this morning about 25%. We will start patient on IV Protonix. And will follow up with buffet waiter/waitress team about recommendation. The has been ruled out. Her WBC went up to 19.5 K today. Patient told me she supposed to be on Cipro for 14 days which is been added Sodium is a slightly improved to 126. We will give 1 dose of Lasix today. Doppler showing chronic right leg DVT. Review of systems CONSTITUTIONAL: No fever, no malaise, no fatigue. HEENT: No recent visual problems or hearing problems. Denied any sore throat. CARDIOVASCULAR: No orthopnea, PND, no palpitations, no syncope. PULMONARY: No shortness of breath, no cough, no hemoptysis. GASTROINTESTINAL: No diarrhea, no nausea, no vomiting, no abdominal pain. Normoactive bowel sounds. NEUROLOGICAL: No headaches, no weakness, no numbness. HEMATOLOGICAL: Denies any bleeding or petechiae. GENITOURINARY: Denies any burning micturition, frequency, or urgency. MUSCULOSKELETAL/RHEUMATOLOGICAL: Denies any joint pain, swelling, or any muscle pain. ENDOCRINE: Denies any polyuria or polydipsia. Active Medications Generic Name Dose Route Start Last Admin Trade Name Freq PRN Reason Stop Dose Admin Acetaminophen 500 mg 02/09/20 20:39 Acetaminophen Tab 500 Mg Tab PO Q6HR PRN Fever and/ or Pain Hydrocodone Bitart/Acetaminophen 1 each 02/09/20 20:39 02/09/20 21:56 Hydrocodone/Apap 7.5-325mg 1 Each Tab PO 1 each Q6H PRN Administration Pain Amlodipine Besylate 10 mg 02/10/20 09:00 02/10/20 08:32 Amlodipine 10 Mg Tab PO 10 mg DAILY ANRDEW Administration Aspirin 325 mg 02/10/20 09:00 02/10/20 08:32 Aspirin 325 Mg Tab PO 325 mg DAILY ANDREW Administration Aspirin 325 mg 02/10/20 09:00 02/10/20 08:32 Aspirin 325 Mg Tab PO Not Given DAILY ANDREW Atorvastatin Calcium 80 mg 02/09/20 21:00 02/09/20 22:00 Atorvastatin 80 Mg Tab PO 80 mg HS ANDREW Administration Budesonide/Formoterol Fumarate 2 puff 02/10/20 08:00 02/10/20 07:18 Symbicort 80-4.5 Mcg Inhaler INHALATION Not Given RT-BID ANDREW Cholecalciferol 1,000 unit 02/10/20 09:00 02/10/20 08:32 Cholecalciferol 1,000 Unit Tab PO 1,000 unit DAILY ANDREW Administration Ciprofloxacin 500 mg 02/10/20 10:00 Ciprofloxacin Hcl 500 Mg Tab PO BID ANDREW Clopidogrel Bisulfate 75 mg 02/10/20 09:00 02/10/20 08:32 Clopidogrel 75 Mg Tab PO 75 mg DAILY ANDREW Administration Dicyclomine HCl 10 mg 02/10/20 09:00 02/10/20 08:32 Dicyclomine 10 Mg Cap PO 10 mg DAILY ANDREW Administration Ferrous Sulfate 325 mg 02/10/20 09:00 02/10/20 08:32 Ferrous Sulfate 325 Mg Tab PO 325 mg DAILY ANDREW Administration Formoterol Fumarate 20 mcg 02/10/20 08:00 02/10/20 07:18 Formoterol Fumarate 20 Mcg/2 Ml Nebu INHALATION Not Given RT-BID ANDREW Heparin Sodium (Porcine) 5,000 unit 02/10/20 09:00 02/10/20 08:32 Heparin Sodium,Porcine 5,000 Unit/Ml 1 Ml Vial SQ 5,000 unit Q12HR ANDREW Administration Hydralazine HCl 100 mg 02/09/20 21:41 Hydralazine Hcl 50 Mg Tab PO ONCE PRN Blood Pressure - High Insulin Aspart 0 unit 02/09/20 22:48 02/10/20 06:46 Insulin Aspart (Novolog) 100 Unit/Ml Vial SQ 5 unit ACHS ANDREW Administration Protocol Ipratropium [place] 0.5 mg 02/10/20 08:00 02/10/20 07:18 Ipratropium 0.5 Mg/2.5 Ml Nebu INHALATION Not Given RT-QID ANDREW Isosorbide Mononitrate 60 mg 02/10/20 09:00 02/10/20 08:32 Isosorbide Mononitrate Er 60 Mg Tab.Er.24h PO 60 mg DAILY ANDREW Administration Lisinopril 20 mg 02/09/20 21:00 02/10/20 08:32 Lisinopril 20 Mg Tab PO 20 mg BID ANDREW Administration Magnesium Oxide 400 mg 02/10/20 09:00 02/10/20 08:32 Magnesium Oxide 400 Mg Tab PO 400 mg DAILY ANDREW Administration Metoclopramide HCl 10 mg 02/09/20 20:39 Metoclopramide 10 Mg Tab PO QID PRN Nausea Metoprolol Tartrate 100 mg 02/09/20 21:45 02/10/20 08:31 Metoprolol Tartrate 50 Mg Tab PO 100 mg BID ANDREW Administration Miscellaneous Information 1 each 02/09/20 21:42 Magnesium Replacement Protocol 1 Each Misc MISCELLANE DAILY PRN Per Protocol Protocol Montelukast Sodium 10 mg 02/09/20 21:00 02/09/20 22:00 Montelukast 10 Mg Tab PO 10 mg HS ANDREW Administration Nitroglycerin 0.4 mg 02/09/20 12:35 02/09/20 21:10 Nitroglycerin Sl Tabs 0.4 Mg Tab SUBLINGUAL 0.4 mg Q5M PRN Administration Chest Pain Ondansetron HCl 4 mg 02/09/20 17:27 02/10/20 03:06 Ondansetron 4 Mg/2 Ml Vial IVP 4 mg Q6HR PRN Administration Nausea And Vomiting Ranolazine 500 mg 02/09/20 21:00 02/10/20 08:32 Ranolazine 500 Mg Tab.Er.12h PO 500 mg Q12HR ANDREW Administration Ropinirole HCl 4 mg 02/09/20 22:00 02/10/20 08:32 Ropinirole Hcl 4 Mg Tablet PO 4 mg TID ANDREW Administration Objective - Vital Signs Vital signs: Vital Signs Temp 98.4 F 02/10/20 08:00 Pulse 80 02/10/20 08:00 Resp 18 02/10/20 08:00 BP 169/82 02/10/20 08:00 Pulse Ox 96 02/10/20 08:00 Intake & Output 02/09/20 02/10/20 02/10/20 18:59 06:59 18:59 Intake Total 125 Output Total 1500 Balance -1500 125 Weight 109.769 kg 108.4 kg Intake: Oral 125 Output: Urine 1500 Other: Voiding Method Bedside Commode Diaper # Voids 1 - Exam -GENERAL: The patient is alert and oriented x3, not in any acute distress. obese HEENT: Pupils are round and equally reacting to light. EOMI. No scleral icterus. No conjunctival pallor. Normocephalic, atraumatic. No pharyngeal erythema. No thyromegaly. -CARDIOVASCULAR: S1 and S2 present. No murmurs, rubs, or gallops. Mild xiphisternal tenderness PULMONARY: Chest is clear to auscultation, no wheezing or crackles. ABDOMEN: Soft, nontender, nondistended, normoactive bowel sounds. No palpable organomegaly. MUSCULOSKELETAL: No joint swelling or deformity. -EXTREMITIES: No cyanosis, clubbing,. Bilateral mild pedal edema. Bilateral small ulcers, deep about half inch in depth with clear-cut margin and no surrounding cellulitis NEUROLOGICAL: Gross neurological examination did not reveal any focal deficits. SKIN: No rashes. No petechiae - Labs CBC & Chem 7: 02/10/20 06:52 02/10/20 06:52 Labs: Abnormal Lab Results - Last 24 Hours (Table) 02/09/20 02/09/20 02/09/20 Range/Units 10:17 10:17 10:17 WBC 16.3 H (3.8-10.6) k/uL RBC (3.80-5.40) m/uL Hgb 10.4 L (11.4-16.0) gm/dL Hct 33.8 L (34.0-46.0) % MCV 66.8 L (80.0-100.0) fL MCH 20.5 L (25.0-35.0) pg MCHC 30.7 L (31.0-37.0) g/dL RDW 17.3 H (11.5-15.5) % Plt Count (150-450) k/uL Neutrophils # 11.9 H (1.3-7.7) k/uL D-Dimer 1.58 H (<0.60) mg/L FEU Sodium 125 L (137-145) mmol/L Potassium 5.2 H (3.5-5.1) mmol/L Chloride 91 L (98-107) mmol/L Glucose 130 H (74-99) mg/dL POC Glucose (mg/dL) (75-99) mg/dL Magnesium 1.3 L (1.6-2.3) mg/dL HDL Cholesterol (40-60) mg/dL 02/09/20 02/09/20 02/09/20 Range/Units 17:55 20:02 23:15 WBC (3.8-10.6) k/uL RBC (3.80-5.40) m/uL Hgb (11.4-16.0) gm/dL Hct (34.0-46.0) % MCV (80.0-100.0) fL MCH (25.0-35.0) pg MCHC (31.0-37.0) g/dL RDW (11.5-15.5) % Plt Count (150-450) k/uL Neutrophils # (1.3-7.7) k/uL D-Dimer (<0.60) mg/L FEU Sodium (137-145) mmol/L Potassium (3.5-5.1) mmol/L Chloride (98-107) mmol/L Glucose (74-99) mg/dL POC Glucose (mg/dL) 245 H 242 H 228 H (75-99) mg/dL Magnesium (1.6-2.3) mg/dL HDL Cholesterol (40-60) mg/dL 02/10/20 02/10/20 02/10/20 Range/Units 06:34 06:52 06:52 WBC 19.5 H (3.8-10.6) k/uL RBC 5.56 H (3.80-5.40) m/uL Hgb 11.1 L (11.4-16.0) gm/dL Hct (34.0-46.0) % MCV 65.8 L (80.0-100.0) fL MCH 20.0 L (25.0-35.0) pg MCHC 30.3 L (31.0-37.0) g/dL RDW 17.6 H (11.5-15.5) % Plt Count 497 H (150-450) k/uL Neutrophils # 16.0 H (1.3-7.7) k/uL D-Dimer (<0.60) mg/L FEU Sodium 126 L (137-145) mmol/L Potassium (3.5-5.1) mmol/L Chloride 86 L (98-107) mmol/L Glucose 206 H (74-99) mg/dL POC Glucose (mg/dL) 240 H (75-99) mg/dL Magnesium (1.6-2.3) mg/dL HDL Cholesterol 70 H (40-60) mg/dL Assessment and Plan Assessment: Chest pain, rule out cardiac causes. Differential diagnosis including esophagitis, gastritis. Chronic leukocytosis Recent history of bilateral small infections, she has bilateral small wounds with no surrounding cellulitis. It was suspicious for osteomyelitis however bone scan was negative as per ID team. Continue with Cipro Rule out DVT Hyponatremia bilateral leg edema and chronic right leg DVT, new onset Diabetes mellitus type 2 Hypertension, uncontrolled Hyperlipidemia Heart failure, chronic History of coronary artery disease COPD/asthma, not an active tissue GERD Osteoarthritis Sleep apnea on CPAP/BiPAP Diabetic neuropathy Chronic kidney disease stage III Chronic respiratory hypoxic failure on 2 L oxygen via nasal cannula Obesity Plan: This is a pleasant 74 years old female who presents with chest pain. Cardiology consult. Serial troponin. Continue with Protonix. Follow cardiology's recommendation. Monitor sodium level. So the patient on Cipro on follow-up WBC. Consult hematology for chronic right leg DVT. Labs and medication were reviewed.. Continue same treatment. Continue with symptomatic treatment. Resume home medication. Monitor lytes and vitals. DVT and GI prophylaxis. Further recommendations depends on the clinical course of the patient DVT prophylaxis: Subcutaneous heparin GI Prophylaxis: Pepcid Prognosis is guarded
--- NOTE | 2020-02-10 10:46 | P.PN ---
Subjective Progress Note Date: 02/10/20 Principal diagnosis: Chest pain This is a very pleasant 74-year-old female patient was coronary artery disease and prior coronary stenting where she underwent double vessel stenting in the past as well as diabetes and hypertension and dyslipidemia presented to the emergency room complaining of chest discomfort. The patient was in her usual state of health until earlier today when she started experiencing discomfort in the mid of the chest as a pressure on the chest without any radiation to the arms or neck or shoulders and without any associated symptoms of sweating or di zziness or lightheadedness or feeling of heart racing or fluttering or syncope. Currently she is chest pain-free. The EKG showed sinus mechanism without any significant ST or T-wave abnormalities. The first set of troponin came in to be unremarkable. D-dimer came in to be elevated but subsequent CTA of the chest did not show any pulmonary embolism. The patient was seen today February [id number]. She is chest pain-free. WBCs elevated and currently she is on antibiotic for possible osteomyelitis. The blood pressure is elevated and she is on maximize medical treatment. I am going to add hydrochlorothiazide to the current medical regimen. We will continue following up with the patient Objective - Vital Signs Vital signs: Vital Signs Temp 98.4 F 02/10/20 08:00 Pulse 80 02/10/20 08:00 Resp 18 02/10/20 08:00 BP 169/82 02/10/20 08:00 Pulse Ox 96 02/10/20 08:00 Intake & Output 02/09/20 02/10/20 02/10/20 18:59 06:59 18:59 Intake Total 125 Output Total 1500 Balance -1500 125 Weight 109.769 kg 108.4 kg Intake: Oral 125 Output: Urine 1500 Other: Voiding Method Bedside Commode Diaper # Voids 1 - Constitutional General appearance: Present: no acute distress - Respiratory Respiratory: bilateral: CTA - Cardiovascular Rhythm: regular Heart sounds: normal: S1, S2 - Labs CBC & Chem 7: 02/10/20 06:52 02/10/20 06:52 Labs: Abnormal Lab Results - Last 24 Hours (Table) 02/09/20 02/09/20 02/09/20 Range/Units 10:17 10:17 17:55 WBC (3.8-10.6) k/uL RBC (3.80-5.40) m/uL Hgb (11.4-16.0) gm/dL MCV (80.0-100.0) fL MCH (25.0-35.0) pg MCHC (31.0-37.0) g/dL RDW (11.5-15.5) % Plt Count (150-450) k/uL Neutrophils # (1.3-7.7) k/uL D-Dimer 1.58 H (<0.60) mg/L FEU Sodium 125 L (137-145) mmol/L Potassium 5.2 H (3.5-5.1) mmol/L Chloride 91 L (98-107) mmol/L Glucose 130 H (74-99) mg/dL POC Glucose (mg/dL) 245 H (75-99) mg/dL Magnesium 1.3 L (1.6-2.3) mg/dL HDL Cholesterol (40-60) mg/dL 02/09/20 02/09/20 02/10/20 Range/Units 20:02 23:15 06:34 WBC (3.8-10.6) k/uL RBC (3.80-5.40) m/uL Hgb (11.4-16.0) gm/dL MCV (80.0-100.0) fL MCH (25.0-35.0) pg MCHC (31.0-37.0) g/dL RDW (11.5-15.5) % Plt Count (150-450) k/uL Neutrophils # (1.3-7.7) k/uL D-Dimer (<0.60) mg/L FEU Sodium (137-145) mmol/L Potassium (3.5-5.1) mmol/L Chloride (98-107) mmol/L Glucose (74-99) mg/dL POC Glucose (mg/dL) 242 H 228 H 240 H (75-99) mg/dL Magnesium (1.6-2.3) mg/dL HDL Cholesterol (40-60) mg/dL 02/10/20 02/10/20 Range/Units 06:52 06:52 WBC 19.5 H (3.8-10.6) k/uL RBC 5.56 H (3.80-5.40) m/uL Hgb 11.1 L (11.4-16.0) gm/dL MCV 65.8 L (80.0-100.0) fL MCH 20.0 L (25.0-35.0) pg MCHC 30.3 L (31.0-37.0) g/dL RDW 17.6 H (11.5-15.5) % Plt Count 497 H (150-450) k/uL Neutrophils # 16.0 H (1.3-7.7) k/uL D-Dimer (<0.60) mg/L FEU Sodium 126 L (137-145) mmol/L Potassium (3.5-5.1) mmol/L Chloride 86 L (98-107) mmol/L Glucose 206 H (74-99) mg/dL POC Glucose (mg/dL) (75-99) mg/dL Magnesium (1.6-2.3) mg/dL HDL Cholesterol 70 H (40-60) mg/dL Assessment and Plan Assessment: Assessment #1 chest discomfort which has improved #2 coronary artery disease #3 hypertension #4 dyslipidemia #5 elevated WBC Plan #1 acute coronary syndrome was ruled out #2 pulmonary embolism was ruled out #3 add hydrochlorothiazide to the current medical regimen #4 follow-up with the patient
[2020-02-10] MEDS: PANTOPRAZOLE 40 MG/10 ML VIAL IVP SCH ×2 (11:41→19:59)
[2020-02-10] MEDS: CIPROFLOXACIN HCL 500 MG TAB PO SCH ×2 (11:41→20:00)
[2020-02-10 11:59] LABS: Glucose,Whole Blood 206 mg/dL (75-99)
[2020-02-10] MEDS: METOCLOPRAMIDE 10 MG TAB PO PRN (13:04)
[2020-02-10] MEDS: HYDROcodone/APAP 7.5-325MG 1 EACH TAB PO PRN ×2 (14:56→19:59)
[2020-02-10 17:09] LABS: Glucose,Whole Blood 193 mg/dL (75-99)
[2020-02-10] MEDS: MONTELUKAST 10 MG TAB PO SCH (20:00)
[2020-02-10] MEDS: ATORVASTATIN 80 MG TAB PO SCH (20:00)
[2020-02-10 20:17] LABS: Glucose,Whole Blood 189 mg/dL (75-99)
[2020-02-11] MEDS: ONDANSETRON 4 MG/2 ML VIAL IVP PRN (00:05)
[2020-02-11 02:02] LABS: Magnesium 1.6 mg/dL (1.6-2.3); Potassium 4.1 mmol/L (3.5-5.1)
[2020-02-11] MEDS: MAGNESIUM SULFATE-D5W PMX 1 GM in DEXTROSE/WATER 1 100ML.BAG IVPB SCH ×2 (02:36→04:09)
[2020-02-11] MEDS: INSULIN ASPART (NovoLOG) 100 UNIT/ML VIAL SQ SCH ×4 (06:56→20:55)
[2020-02-11 07:01] LABS: Glucose,Whole Blood 203 mg/dL (75-99)
[2020-02-11] MEDS: FORMOTEROL FUMARATE 20 MCG/2 ML NEBU INHALATION SCH ×2 (07:49→19:00)
[2020-02-11] MEDS: SYMBICORT 80-4.5 MCG INHALER INHALATION SCH ×2 (07:49→19:00)
[2020-02-11] MEDS: IPRATROPIUM 0.5 MG/2.5 ML NEBU INHALATION SCH ×4 (07:49→19:00)
[2020-02-11] MEDS: ASPIRIN 325 MG TAB PO SCH ×2 (08:36→08:46)
[2020-02-11] MEDS: ISOSORBIDE MONONITRATE ER 60 MG TAB.ER.24H PO SCH (08:45)
[2020-02-11] MEDS: CHOLECALCIFEROL 1,000 UNIT TAB PO SCH (08:45)
[2020-02-11] MEDS: MAGNESIUM OXIDE 400 MG TAB PO SCH (08:45)
[2020-02-11] MEDS: lisinopriL 20 MG TAB PO SCH ×2 (08:46→20:53)
[2020-02-11] MEDS: PANTOPRAZOLE 40 MG/10 ML VIAL IVP SCH ×2 (08:46→20:55)
[2020-02-11] MEDS: amLODIPine 10 MG TAB PO SCH (08:46)
[2020-02-11] MEDS: CLOPIDOGREL 75 MG TAB PO SCH (08:46)
[2020-02-11] MEDS: CIPROFLOXACIN HCL 500 MG TAB PO SCH ×2 (08:46→20:52)
[2020-02-11] MEDS: FERROUS SULFATE 325 MG TAB PO SCH (08:46)
[2020-02-11] MEDS: DICYCLOMINE 10 MG CAP PO SCH (08:46)
[2020-02-11] MEDS: RANOLAZINE 500 MG TAB.ER.12H PO SCH ×2 (08:46→20:54)
[2020-02-11] MEDS: rOPINIRole HCL 4 MG TABLET PO SCH ×3 (08:46→20:55)
[2020-02-11] MEDS: METOPROLOL TARTRATE 50 MG TAB PO SCH ×2 (08:46→20:54)
[2020-02-11] MEDS: HEPARIN SODIUM,PORCINE 5,000 UNIT/ML 1 ML VIAL SQ SCH ×2 (08:47→20:55)
[2020-02-11] MEDS ORDERED: hydroCHLOROthiazide 25 MG TAB PO SCH (09:00)
[2020-02-11] MEDS ORDERED: TRIMETHOBENZAMIDE 300 MG CAP PO PRN (09:15)
[2020-02-11 09:30] LABS: Anisocytosis Slight; Basophils % (A) 0 %; Eosinophils # (A) 0.1 k/uL (0-0.7); Eosinophils % (A) 1 %; HCT 34.8 % (34.0-46.0); HGB 11.1 gm/dL (11.4-16.0); Hypochromasia Moderate; Lymphocytes # (A) 2.3 k/uL (1.0-4.8); Lymphocytes % (A) 16 %; MCH 21.1 pg (25.0-35.0); MCHC 31.9 g/dL (31.0-37.0); MCV 66.1 fL (80.0-100.0); Mean Platelet Volume 6.7; Microcytosis Marked; Monocytes # (A) 0.9 k/uL (0-1.0); Monocytes % (A) 6 %; Neutrophils # (A) 10.7 k/uL (1.3-7.7); Neutrophils % (A) 76 %; Platelet Count 426 k/uL (150-450); Poikilocytosis Slight; RBC 5.26 m/uL (3.80-5.40); RDW 17.6 % (11.5-15.5); WBC 14.2 k/uL (3.8-10.6)
[2020-02-11 09:39] LABS: African American GFR (CKD) >90 (>60 ml/min/1.73 sqM); Anion Gap 9 mmol/L; Blood Urea Nitrogen 11 mg/dL (7-17); Calcium 9.3 mg/dL (8.4-10.2); Carbon Dioxide 27 mmol/L (22-30); Chloride 86 mmol/L (98-107); Glucose 227 mg/dL (74-99); Magnesium 1.8 mg/dL (1.6-2.3); Non-African American GFR(CKD) 90 (>60 ml/min/1.73 sqM); Potassium 4.5 mmol/L (3.5-5.1); Sodium 122 mmol/L (137-145)
--- NOTE | 2020-02-11 12:31 | P.PN ---
Subjective Progress Note Date: 02/11/20 Principal diagnosis: Chest pain This is a very pleasant 74-year-old female patient was coronary artery disease and prior coronary stenting where she underwent double vessel stenting in the past as well as diabetes and hypertension and dyslipidemia presented to the emergency room complaining of chest discomfort. The patient was in her usual state of health until earlier today when she started experiencing discomfort in the mid of the chest as a pressure on the chest without any radiation to the arms or neck or shoulders and without any associated symptoms of sweating or di zziness or lightheadedness or feeling of heart racing or fluttering or syncope. Currently she is chest pain-free. The EKG showed sinus mechanism without any significant ST or T-wave abnormalities. The first set of troponin came in to be unremarkable. D-dimer came in to be elevated but subsequent CTA of the chest did not show any pulmonary embolism. The patient was seen today 02/11/2020. She continues to have abdominal discomfort and the abdomen is tender on examination. She might need to have a CT of the abdomen and pelvis to rule out any intra-abdominal process. Otherwise she denies any chest pain or chest discomfort. No shortness of breath. Hemodynamically she continues to be hypertensive. She is on maximize dose of metoprolol, lisinopril, and Norvasc. I am going to add Aldactone to the current medical regimen. Beside that she did have an episode of torsade yesterday which was aborted spontaneously. She has been given Zofran quite often which could be contributing to her episode of torsade. The magnesium was within normal limits. The potassium was on the low side. Objective - Vital Signs Vital signs: Vital Signs Temp 98.2 F 02/11/20 08:00 Pulse 82 02/11/20 08:00 Resp 18 02/11/20 08:00 BP 180/81 02/11/20 08:00 Pulse Ox 92 L 02/11/20 08:00 Intake & Output 02/10/20 02/11/20 02/11/20 18:59 06:59 18:59 Intake Total 275 Output Total 750 300 Balance -475 -300 Weight 108.4 kg 108.1 kg Intake: Oral 275 Output: Urine 750 300 Other: Voiding Method Toilet # Voids 1 - Constitutional General appearance: Present: no acute distress - Respiratory Respiratory: bilateral: CTA - Cardiovascular Rhythm: regular Heart sounds: normal: S1, S2 - Labs CBC & Chem 7: 02/11/20 08:58 02/11/20 08:58 Labs: Abnormal Lab Results - Last 24 Hours (Table) 02/10/20 02/10/20 02/11/20 Range/Units 17:01 20:13 06:50 WBC (3.8-10.6) k/uL Hgb (11.4-16.0) gm/dL MCV (80.0-100.0) fL MCH (25.0-35.0) pg RDW (11.5-15.5) % Neutrophils # (1.3-7.7) k/uL Sodium (137-145) mmol/L Chloride (98-107) mmol/L Glucose (74-99) mg/dL POC Glucose (mg/dL) 193 H 189 H 203 H (75-99) mg/dL 02/11/20 02/11/20 Range/Units 08:58 08:58 WBC 14.2 H (3.8-10.6) k/uL Hgb 11.1 L (11.4-16.0) gm/dL MCV 66.1 L (80.0-100.0) fL MCH 21.1 L (25.0-35.0) pg RDW 17.6 H (11.5-15.5) % Neutrophils # 10.7 H (1.3-7.7) k/uL Sodium 122 L (137-145) mmol/L Chloride 86 L (98-107) mmol/L Glucose 227 H (74-99) mg/dL POC Glucose (mg/dL) (75-99) mg/dL Assessment and Plan Assessment: Assessment #1 chest discomfort which has improved #2 coronary artery disease #3 hypertension not well-controlled #4 dyslipidemia #5 elevated WBC Plan #1 acute coronary syndrome was ruled out #2 pulmonary embolism was ruled out #3 continue the current medical regimen #4 add Aldactone to the current medical regimen #5 monitor the potassium and magnesium #6 we advise obtaining a computed tomography scan to rule out any intra- abdominal process Follow-up with the patient
[2020-02-11 12:51] LABS: Glucose,Whole Blood 190 mg/dL (75-99)
[2020-02-11] MEDS: HYDROcodone/APAP 7.5-325MG 1 EACH TAB PO PRN ×2 (12:52→20:53)
[2020-02-11] MEDS ORDERED: SENNOSIDES 8.6 MG TAB PO PRN (13:07)
[2020-02-11] MEDS: IOPAMIDOL CONTRAST (ORAL USE) VIAL PO PRN ×2 (13:33→14:46)
[2020-02-11] MEDS ORDERED: IOPAMIDOL CONTRAST (ORAL USE) VIAL PO PRN (13:38)
--- NOTE | 2020-02-11 13:45 | P.PN ---
Subjective On-call hospitalist covering for Dr. Grande This is a pleasant 74 years old female with multiple medical problems including asthma/COPD, coronary artery disease, heart failure, diabetes mellitus, hypertension, hyperlipidemia, GERD, osteoarthritis, sleep apnea on CPAP/BiPAP. Diabetic neuropathy, CTD stage III, chronic respiratory failure on 3L oxygen via nasal cannula. Patient was recently discharged from [facility] for Bilateral Feet Source with No Evidence of Osteomyelitis As per Patient. Presents Because of Chest Pain Which Started Yesterday and Last Night about 3- 4/10 in Severity, Central Nonradiating and [place] like Pressure Associated with Little Dyspnea and Nausea with Vomiting Once, Mainly Bile with No Blood. However Patient Denies Abdominal Pain and No Change in Her Urine Habits or Bowel Habits. She Denies Smoking, Alcohol or Illicit Drugs. Vitals are stable, blood pressure on the high side 183/77. Heart rate is 92. Labs showing WBC of 16.3 K, however her WBC is chronically elevated with baseline 11-16 K. Hemoglobin and platelets are normal, d-dimer was 1.5. Sodium was low is 125, however its chronically low around 130-133. EKG showed normal sinus rhythm at [address]-T changes. On admission she has CTA which was negative for PE 02/10/2020 Patient is awake and alert, she was sitting at the bedside. She had dropped night because she complains from pain attack during the night and her left breast area that states was 10 point pain but now this is down to 2/10, however on palpation her pain was mainly in the xiphisternal Angle. Patient also complaining of from significant nausea but no vomiting, she was able to eat some of her breakfast this morning about 25%. We will start patient on IV Protonix. And will follow up with plastics nurse team about recommendation. The has been ruled out. Her WBC went up to 19.5 K today. Patient told me she supposed to be on Cipro for 14 days which is been added Sodium is a slightly improved to 126. We will give 1 dose of Lasix today. Doppler showing chronic right leg DVT. 02/11/2020 Patient is awake and alert, no chest pain or dyspnea, however she still have persistent nausea, cardiology recommended CAT scan of the abdomen, we ordered a CT of the abdomen and pelvis with oral contrast only, I talked to the CAT scan Department and informed him to do the test comes with oral contrast and no IV contrast Her sodium went down to 123 today, I think that because she got hydrochlorothiazide which was stopped now, sent for urine and serum osmolality, also for urine sodium. Hydrochlorothiazide was discontinued already 2. sodium closely. Also CONSULT GI team for persistent nausea. Doppler showing chronic right leg DVT, we'll consult hematology Care of the patient will be resumed by Dr. Grande tomorrow Review of systems CONSTITUTIONAL: No fever, no malaise, no fatigue. HEENT: No recent visual problems or hearing problems. Denied any sore throat. CARDIOVASCULAR: No orthopnea, PND, no palpitations, no syncope. PULMONARY: No shortness of breath, no cough, no hemoptysis. GASTROINTESTINAL: No diarrhea, no nausea, no vomiting, no abdominal pain. Normoactive bowel sounds. NEUROLOGICAL: No headaches, no weakness, no numbness. HEMATOLOGICAL: Denies any bleeding or petechiae. GENITOURINARY: Denies any burning micturition, frequency, or urgency. MUSCULOSKELETAL/RHEUMATOLOGICAL: Denies any joint pain, swelling, or any muscle pain. ENDOCRINE: Denies any polyuria or polydipsia. Active Medications Generic Name Dose Route Start Last Admin Trade Name Freq PRN Reason Stop Dose Admin Acetaminophen 500 mg 02/09/20 20:39 Acetaminophen Tab 500 Mg Tab PO Q6HR PRN Fever and/ or Pain Hydrocodone Bitart/Acetaminophen 1 each 02/09/20 20:39 02/11/20 12:52 Hydrocodone/Apap 7.5-325mg 1 Each Tab PO 1 each Q6H PRN Administration Pain Amlodipine Besylate 10 mg 02/10/20 09:00 02/11/20 08:46 Amlodipine 10 Mg Tab PO 10 mg DAILY ANDREW Administration Aspirin 325 mg 02/10/20 09:00 02/11/20 08:46 Aspirin 325 Mg Tab PO 325 mg DAILY ANDREW Administration Aspirin 325 mg 02/10/20 09:00 02/11/20 08:36 Aspirin 325 Mg Tab PO Not Given DAILY ANDREW Atorvastatin Calcium 80 mg 02/09/20 21:00 02/10/20 20:00 Atorvastatin 80 Mg Tab PO 80 mg HS ANDREW Administration Budesonide/Formoterol Fumarate 2 puff 02/10/20 08:00 02/11/20 07:49 Symbicort 80-4.5 Mcg Inhaler INHALATION Not Given RT-BID ANDREW Cholecalciferol 1,000 unit 02/10/20 09:00 02/11/20 08:45 Cholecalciferol 1,000 Unit Tab PO 1,000 unit DAILY ANDREW Administration Ciprofloxacin 500 mg 02/10/20 10:00 02/11/20 08:46 Ciprofloxacin Hcl 500 Mg Tab PO 500 mg BID ANDREW Administration Clopidogrel Bisulfate 75 mg 02/10/20 09:00 02/11/20 08:46 Clopidogrel 75 Mg Tab PO 75 mg DAILY ANDREW Administration Dicyclomine HCl 10 mg 02/10/20 09:00 02/11/20 08:46 Dicyclomine 10 Mg Cap PO 10 mg DAILY ANDREW Administration Ferrous Sulfate 325 mg 02/10/20 09:00 02/11/20 08:46 Ferrous Sulfate 325 Mg Tab PO 325 mg DAILY ANDREW Administration Formoterol Fumarate 20 mcg 02/10/20 08:00 02/11/20 07:49 Formoterol Fumarate 20 Mcg/2 Ml Nebu INHALATION Not Given RT-BID ANDREW Heparin Sodium (Porcine) 5,000 unit 02/10/20 09:00 02/11/20 08:47 Heparin Sodium,Porcine 5,000 Unit/Ml 1 Ml Vial SQ 5,000 unit Q12HR ANDREW Administration Hydralazine HCl 100 mg 02/09/20 21:41 Hydralazine Hcl 50 Mg Tab PO ONCE PRN Blood Pressure - High Insulin Aspart 0 unit 02/09/20 22:48 02/11/20 12:51 Insulin Aspart (Novolog) 100 Unit/Ml Vial SQ 3 unit ACHS ANDREW Administration Protocol Iopamidol 30 ml 02/11/20 12:46 02/11/20 13:33 Iopamidol Contrast (Oral Use) Vial PO 02/12/20 12:47 30 ml Q60M PRN Administration CT Scan Ipratropium [place] 0.5 mg 02/10/20 08:00 02/11/20 10:56 Ipratropium 0.5 Mg/2.5 Ml Nebu INHALATION Not Given RT-QID ANDREW Isosorbide Mononitrate 60 mg 02/10/20 09:00 02/11/20 08:45 Isosorbide Mononitrate Er 60 Mg Tab.Er.24h PO 60 mg DAILY ANDREW Administration Lisinopril 20 mg 02/09/20 21:00 02/11/20 08:46 Lisinopril 20 Mg Tab PO 20 mg BID ANDREW Administration Magnesium Oxide 400 mg 02/10/20 09:00 02/11/20 08:45 Magnesium Oxide 400 Mg Tab PO 400 mg DAILY ANDREW Administration Metoclopramide HCl 10 mg 02/09/20 20:39 02/10/20 13:04 Metoclopramide 10 Mg Tab PO 10 mg QID PRN Administration Nausea Metoprolol Tartrate 100 mg 02/09/20 21:45 02/11/20 08:46 Metoprolol Tartrate 50 Mg Tab PO 100 mg BID ANDREW Administration Miscellaneous Information 1 each 02/09/20 21:42 Magnesium Replacement Protocol 1 Each Misc MISCELLANE DAILY PRN Per Protocol Protocol Montelukast Sodium 10 mg 02/09/20 21:00 02/10/20 20:00 Montelukast 10 Mg Tab PO 10 mg HS ANDREW Administration Nitroglycerin 0.4 mg 02/09/20 12:35 02/09/20 21:10 Nitroglycerin Sl Tabs 0.4 Mg Tab SUBLINGUAL 0.4 mg Q5M PRN Administration Chest Pain Ondansetron HCl 4 mg 02/09/20 17:27 02/11/20 00:05 Ondansetron 4 Mg/2 Ml Vial IVP 4 mg Q6HR PRN Administration Nausea And Vomiting Pantoprazole Sodium 40 mg 02/10/20 10:00 02/11/20 08:46 Pantoprazole 40 Mg/10 Ml Vial IVP 40 mg BID ANDREW Administration Ranolazine 500 mg 02/09/20 21:00 02/11/20 08:46 Ranolazine 500 Mg Tab.Er.12h PO 500 mg Q12HR ANDREW Administration Ropinirole HCl 4 mg 02/09/20 22:00 02/11/20 08:46 Ropinirole Hcl 4 Mg Tablet PO 4 mg TID ANDREW Administration Senna 8.6 mg 02/11/20 13:07 Sennosides 8.6 Mg Tab PO BID PRN Constipation Spironolactone 25 mg 02/12/20 09:00 Spironolactone 25 Mg Tab PO DAILY ANDREW Trimethobenzamide HCl 300 mg 02/11/20 09:15 Trimethobenzamide 300 Mg Cap PO TID PRN Nausea Objective - Vital Signs Vital signs: Vital Signs Temp 98.1 F 02/11/20 12:00 Pulse 64 02/11/20 12:00 Resp 18 02/11/20 12:00 BP 160/74 02/11/20 12:00 Pulse Ox 93 L 02/11/20 12:00 Intake & Output 02/10/20 02/11/20 02/11/20 18:59 06:59 18:59 Intake Total 275 Output Total 750 300 Balance -475 -300 Weight 108.4 kg 108.1 kg Intake: Oral 275 Output: Urine 750 300 Other: Voiding Method Toilet # Voids 1 - Exam -GENERAL: The patient is alert and oriented x3, not in any acute distress. obese HEENT: Pupils are round and equally reacting to light. EOMI. No scleral icterus. No conjunctival pallor. Normocephalic, atraumatic. No pharyngeal erythema. No thyromegaly. -CARDIOVASCULAR: S1 and S2 present. No murmurs, rubs, or gallops. Mild xiphisternal tenderness PULMONARY: Chest is clear to auscultation, no wheezing or crackles. ABDOMEN: Soft, nontender, nondistended, normoactive bowel sounds. No palpable or ganomegaly. MUSCULOSKELETAL: No joint swelling or deformity. -EXTREMITIES: No cyanosis, clubbing,. Bilateral mild pedal edema. Bilateral small ulcers, deep about half inch in depth with clear-cut margin and no surrounding cellulitis NEUROLOGICAL: Gross neurological examination did not reveal any focal deficits. SKIN: No rashes. No petechiae - Labs CBC & Chem 7: 02/11/20 08:58 02/11/20 08:58 Labs: Abnormal Lab Results - Last 24 Hours (Table) 02/10/20 02/10/20 02/11/20 Range/Units 17:01 20:13 06:50 WBC (3.8-10.6) k/uL Hgb (11.4-16.0) gm/dL MCV (80.0-100.0) fL MCH (25.0-35.0) pg RDW (11.5-15.5) % Neutrophils # (1.3-7.7) k/uL Sodium (137-145) mmol/L Chloride (98-107) mmol/L Glucose (74-99) mg/dL POC Glucose (mg/dL) 193 H 189 H 203 H (75-99) mg/dL 02/11/20 02/11/2020 Range/Units 08:58 08:58 12:50 WBC 14.2 H (3.8-10.6) k/uL Hgb 11.1 L (11.4-16.0) gm/dL MCV 66.1 L (80.0-100.0) fL MCH 21.1 L (25.0-35.0) pg RDW 17.6 H (11.5-15.5) % Neutrophils # 10.7 H (1.3-7.7) k/uL Sodium 122 L (137-145) mmol/L Chloride 86 L (98-107) mmol/L Glucose 227 H (74-99) mg/dL POC Glucose (mg/dL) 190 H (75-99) mg/dL Assessment and Plan Assessment: Chest pain, rule out cardiac causes. Differential diagnosis including esophagit is, gastritis. Worsening hyponatremia, multifactorial could be medication induced Persistent nausea Chronic leukocytosis Recent history of bilateral small infections, she has bilateral small wounds wi th no surrounding cellulitis. It was suspicious for osteomyelitis however bone scan was negative as per ID team. Continue with Cipro Rule out DVT Hyponatremia bilateral leg edema and chronic right leg DVT, new onset Diabetes mellitus type 2 Hypertension, uncontrolled Hyperlipidemia Heart failure, chronic History of coronary artery disease COPD/asthma, not an active tissue GERD Osteoarthritis Sleep apnea on CPAP/BiPAP Diabetic neuropathy Chronic kidney disease stage III Chronic respiratory hypoxic failure on 2 L oxygen via nasal cannula Obesity Plan: This is a pleasant 74 years old female who presents with chest pain. However she has multiple problems. Continue with Cipro for her bilateral feet infection and her leukocytosis is improving. However she developed worsening hyponatremia and we'll consult the nephrology team. Hydrochlorothiazide was stopped. With the patient on a fluid restriction 1500 mL per day. Also we'll do a CT of the abdomen and pelvis for persistent nausea and consult GI team. It looks like she has a right leg DVT on Doppler and we're consulted hematology team Cardiology team also on board, however her chest and looks improved no Labs and medication were reviewed.. Continue same treatment. Continue with symptomatic treatment. Resume home medication. Monitor lytes and vitals. DVT and GI prophylaxis. Further recommendations depends on the clinical course of the patient DVT prophylaxis: Subcutaneous heparin GI Prophylaxis: Pepcid Prognosis is guarded Dr. Mullally will resume the care of the patient tomorrow
[2020-02-11 17:21] LABS: Glucose,Whole Blood 184 mg/dL (75-99)
--- NOTE | 2020-02-11 19:17 | CT ---
EXAMINATION TYPE: CT abdomen pelvis wo con DATE OF EXAM: 02/11/2020 COMPARISON: 07/07/2019 HISTORY: Persistent nausea CT DLP: 1455.4 mGycm Automated exposure control for dose reduction was used. Lung bases are clear of infiltrate. There is no pleural effusion. Heart is slightly enlarged. There are clips from cholecystectomy. Liver spleen stomach pancreas appear intact. The bile ducts are not dilated. There is 1.5 cm hepato pancreatic lymph node. There is no adrenal mass. Kidneys have normal size and contour. There is no hydronephrosis. Ureters a re not dilated. There is no retroperitoneal adenopathy. Abdominal aorta is atheromatous. Bladder distends smoothly. There is no inguinal hernia. There are numerous diverticula in the sigmoid colon. There is oral contrast extending down to the ileum. There is no sign of a bowel obstruction. Appendix is not seen. There is no sign of thickened appendix. There is no mesenteric edema. There is no ascites or free air. There is no bowel obstruction. Lumbar vertebra have normal alignment. There is no compression fracture. The bony pelvis appears inta ct. Proximal femurs and hip joints are intact. Abdominal aorta is atheromatous. IMPRESSION: Sigmoid diverticulosis without diverticulitis. No sign of acute abdomen and pelvis. No evidence of shamir wel obstruction. No adverse change compared to old exam.
[2020-02-11 20:26] LABS: Glucose,Whole Blood 179 mg/dL (75-99)
[2020-02-11] MEDS: MONTELUKAST 10 MG TAB PO SCH (20:53)
[2020-02-11] MEDS: ATORVASTATIN 80 MG TAB PO SCH (20:54)
[2020-02-12] MEDS: HEPARIN SODIUM,PORCINE 5,000 UNIT/ML 1 ML VIAL SQ SCH ×3 (03:14→20:53)
[2020-02-12 06:22] LABS: Glucose,Whole Blood 192 mg/dL (75-99)
[2020-02-12] MEDS: INSULIN ASPART (NovoLOG) 100 UNIT/ML VIAL SQ SCH ×4 (06:47→21:14)
[2020-02-12 08:46] LABS: Anisocytosis Slight; Basophils # (A) 0.1 k/uL (0-0.2); Basophils % (A) 0 %; Eosinophils # (A) 0.1 k/uL (0-0.7); Eosinophils % (A) 1 %; HCT 34.3 % (34.0-46.0); HGB 10.4 gm/dL (11.4-16.0); Hypochromasia Moderate; Lymphocytes # (A) 2.5 k/uL (1.0-4.8); Lymphocytes % (A) 18 %; MCHC 30.3 g/dL (31.0-37.0); MCV 65.8 fL (80.0-100.0); Mean Platelet Volume 6.6; Microcytosis Marked; Monocytes # (A) 0.8 k/uL (0-1.0); Monocytes % (A) 6 %; Neutrophils % (A) 74 %; Platelet Count 442 k/uL (150-450); RBC 5.21 m/uL (3.80-5.40); RDW 17.8 % (11.5-15.5); WBC 13.6 k/uL (3.8-10.6)
[2020-02-12] MEDS: IPRATROPIUM 0.5 MG/2.5 ML NEBU INHALATION SCH ×4 (08:47→20:46)
[2020-02-12] MEDS: SYMBICORT 80-4.5 MCG INHALER INHALATION SCH ×2 (08:47→20:46)
[2020-02-12] MEDS: FORMOTEROL FUMARATE 20 MCG/2 ML NEBU INHALATION SCH ×2 (08:47→20:46)
[2020-02-12 09:04] LABS: African American GFR (CKD) >90 (>60 ml/min/1.73 sqM); Anion Gap 8 mmol/L; Blood Urea Nitrogen 12 mg/dL (7-17); Calcium 9.2 mg/dL (8.4-10.2); Carbon Dioxide 29 mmol/L (22-30); Chloride 82 mmol/L (98-107); Glucose 215 mg/dL (74-99); Magnesium 1.3 mg/dL (1.6-2.3); Non-African American GFR(CKD) 90 (>60 ml/min/1.73 sqM); Potassium 4.5 mmol/L (3.5-5.1)
[2020-02-12 09:17] LABS: Sodium 119 mmol/L (137-145)
[2020-02-12] MEDS: ISOSORBIDE MONONITRATE ER 60 MG TAB.ER.24H PO SCH (09:32)
[2020-02-12] MEDS: CHOLECALCIFEROL 1,000 UNIT TAB PO SCH (09:32)
[2020-02-12] MEDS: rOPINIRole HCL 4 MG TABLET PO SCH ×3 (09:32→21:03)
[2020-02-12] MEDS: CLOPIDOGREL 75 MG TAB PO SCH (09:32)
[2020-02-12] MEDS: ASPIRIN 81 MG PO SCH (09:32)
[2020-02-12] MEDS: RANOLAZINE 500 MG TAB.ER.12H PO SCH ×2 (09:32→21:08)
[2020-02-12] MEDS: METOCLOPRAMIDE 10 MG TAB PO PRN (09:33)
[2020-02-12] MEDS: lisinopriL 20 MG TAB PO SCH ×2 (09:33→20:57)
[2020-02-12] MEDS: FERROUS SULFATE 325 MG TAB PO SCH (09:33)
[2020-02-12] MEDS: amLODIPine 10 MG TAB PO SCH (09:33)
[2020-02-12] MEDS: CIPROFLOXACIN HCL 500 MG TAB PO SCH ×2 (09:33→21:08)
[2020-02-12] MEDS: DICYCLOMINE 10 MG CAP PO SCH (09:33)
[2020-02-12] MEDS: METOPROLOL TARTRATE 50 MG TAB PO SCH ×2 (09:33→20:53)
[2020-02-12] MEDS: MAGNESIUM OXIDE 400 MG TAB PO SCH (09:33)
[2020-02-12] MEDS: SPIRONOLACTONE 25 MG TAB PO SCH (09:34)
[2020-02-12] MEDS: PANTOPRAZOLE 40 MG/10 ML VIAL IVP SCH ×2 (09:34→21:03)
[2020-02-12] MEDS: HYDROcodone/APAP 7.5-325MG 1 EACH TAB PO PRN ×3 (09:40→21:13)
[2020-02-12] MEDS ORDERED: TOLVAPTAN 15 MG 1/2 TABLET PO ONE (10:59)
[2020-02-12] MEDS ORDERED: FUROSEMIDE 10 MG/ML 2 ML VIAL IV STA (10:59)
[2020-02-12] MEDS ORDERED: Magnesium Replacement Protocol 1 EACH MISC MISCELLANE PRN (11:14)
--- NOTE | 2020-02-12 11:15 | CDI ---
Documentation Clarification Form Date: 02/12/2020 10:58:40 AM From: Eulalia Greer RN, CCDS Admit Date: 02/09/2020 12:35:00 PM Patient Name: Lorelei Brand Visit Number: [id number] ATTENTION: The Clinical Documentation Specialists (CDI) and [facility] Coding Staff appreciate your assistance in clarifying documentation. Please respond to the clarification below the line at the bottom and electronically sign. The CDI & [facility] Coding staff will review the response and follow-up if needed. Please note: Queries are made part of the Legal Health Record. If you have any questions, please contact the author of this message via ITS. Dr. Medardo Grande CHF is documented in the H&P and progress notes and requires further specificity. History/Risk Factors: DM, HTN, Chronic CHF, CKD stage 3, CAD, COPD, Asthma, Chronic hypoxic respiratory failure with home O2 Clinical Indicators: 02/08-02/10 H&P and attending progress notes: "Heart failure, chronic" VS/Pulse OX: Temp 98.2, HR 71, RR 18, B/P 1173/75, spo2 98% ra BNP: not checked 11/28/2019 Echocardiogram Results: EF 30-35%, hypokinetic LV valadez. LA is severely dilated 02/08 Chest X Ray: mild volume overload Treatment: Norvasc 10 mg PO QD, 02/08 Lasix 20 mg IVP x 1 dose 02/09 Lasix 40 mg IVP x 1 dose 02/10 Hydroduiril 25 mg po QD x 1 dose Imdur 60 mg po QD Lopressor 100 mg Po BID In your professional opinion, can you please clarify the acuity and type of CHF if known? Systolic Heart Failure: Acute Chronic Acute on Chronic Systolic & Diastolic Heart Failure: Acute Chronic Acute on Chronic Heart Failure Unable to Determine Other, please specify (Last Revision: August 2017) MTDD
--- NOTE | 2020-02-12 11:19 | P.PN ---
Subjective Progress Note Date: 02/12/20 This is a 74-year-old female with history of coronary artery disease and prior PCI, diabetes, hypertension, hyperlipidemia, who presented to the hospital with symptoms of chest and abdominal discomfort. She was seen in consultation over the weekend by Dr. Gonzalez. Her troponin came back to be unr emarkable. The d-dimer did come back elevated but the CTA of the chest was negative for pulmonary embolism. A CAT scan of the abdomen was performed which showed sigmoid diverticulosis without any diverticulitis. No sign of acute abdomen and pelvis. No evidence of bowel obstruction. Blood pressure 146/68 with a heart rate in the 60s, 95% on 2 L of oxygen. White blood cell count 13.6, hemoglobin 10.4, platelet count 442. Sodium 119, potassium 4.5, BUN 12, creatinine 0.6. Magnesium level I.3. Patient was seen and examined this morning, generally stating that she just does not feel well, still having some nausea with dry heaves. Objective - Vital Signs Vital signs: Vital Signs Temp 97.9 F 02/12/20 09:30 Pulse 62 02/12/20 09:30 Resp 16 02/12/20 09:30 BP 147/68 02/12/20 09:30 Pulse Ox 95 02/12/20 09:30 Intake & Output 02/11/20 02/12/20 02/12/20 18:59 06:59 18:59 Intake Total 0 358 Output Total 850 Balance 0 -850 358 Weight 106.6 kg Intake: Oral 0 358 Output: Urine 850 Other: Voiding Method Toilet Toilet # Voids 1 - Exam PHYSICAL EXAMINATION: GENERAL: 74-year-old female in no acute distress at the time of my examination HEENT: Head is atraumatic, normocephalic. Pupils equal, round. Sclera anicteric. Conjunctiva are clear. Mucous membranes of the mouth are moist. Neck is supple. There is no elevated jugular venous pressure. No carotid bruit is heard. HEART EXAMINATION: Heart S1, S2 normal. No murmur or gallop heard. CHEST EXAMINATION: Lungs are clear to auscultation and precussion. No chest wall tenderness is noted on palpation or with deep breathing. ABDOMEN: Soft, nontender. Bowel sounds are heard. No organomegaly noted. EXTREMITIES: 2+ peripheral pulses with no evidence of peripheral edema and no calf tenderness noted. NEUROLOGIC patient is awake, alert and oriented 3 . - Labs CBC & Chem 7: 02/12/20 08:09 02/12/20 08:09 Labs: Abnormal Lab Results - Last 24 Hours (Table) 02/11/20 02/11/20 02/11/20 Range/Units 08:58 12:50 17:20 WBC (3.8-10.6) k/uL Hgb (11.4-16.0) gm/dL MCV (80.0-100.0) fL MCH (25.0-35.0) pg MCHC (31.0-37.0) g/dL RDW (11.5-15.5) % Neutrophils # (1.3-7.7) k/uL Sodium (137-145) mmol/L Chloride (98-107) mmol/L Glucose (74-99) mg/dL POC Glucose (mg/dL) 190 H 184 H (75-99) mg/dL Osmolality 262 L (280-301) mosm/kg Magnesium (1.6-2.3) mg/dL 02/11/20 02/12/20 02/12/20 Range/Units 20:20 06:18 08:09 WBC (3.8-10.6) k/uL Hgb (11.4-16.0) gm/dL MCV (80.0-100.0) fL MCH (25.0-35.0) pg MCHC (31.0-37.0) g/dL RDW (11.5-15.5) % Neutrophils # (1.3-7.7) k/uL Sodium 119 L* (137-145) mmol/L Chloride 82 L (98-107) mmol/L Glucose 215 H (74-99) mg/dL POC Glucose (mg/dL) 179 H 192 H (75-99) mg/dL Osmolality (280-301) mosm/kg Magnesium 1.3 L (1.6-2.3) mg/dL 02/12/20 Range/Units 08:09 WBC 13.6 H (3.8-10.6) k/uL Hgb 10.4 L (11.4-16.0) gm/dL MCV 65.8 L (80.0-100.0) fL MCH 20.0 L (25.0-35.0) pg MCHC 30.3 L (31.0-37.0) g/dL RDW 17.8 H (11.5-15.5) % Neutrophils # 10.0 H (1.3-7.7) k/uL Sodium (137-145) mmol/L Chloride (98-107) mmol/L Glucose (74-99) mg/dL POC Glucose (mg/dL) (75-99) mg/dL Osmolality (280-301) mosm/kg Magnesium (1.6-2.3) mg/dL Assessment and Plan Plan: Assessment #1 chest discomfort , atypical, acute coronary syndrome ruled out. #2 coronary artery disease, with prior PCI #3 hypertension #4 dyslipidemia #5 elevated WBC #6 abdominal discomfort with nausea. CT of the abdomen did not reveal any acute findings. Plan We will add some hydralazine to the patient's medication regime to optimize blood pressure control. Continue the rest of her medications. DNP note has been reviewed, I agree with a documented findings and plan of care. Patient was seen and examined.
[2020-02-12 11:58] LABS: Glucose,Whole Blood 196 mg/dL (75-99)
[2020-02-12] MEDS: MAGNESIUM SULFATE-D5W PMX 1 GM in DEXTROSE/WATER 1 100ML.BAG IVPB SCH ×3 (12:50→15:07)
[2020-02-12] MEDS: polyethylene glycoL 3350 17 GM POWD.PACK PO SCH (12:50)
[2020-02-12] MEDS: METOCLOPRAMIDE 10 MG TAB PO SCH ×3 (12:51→20:54)
[2020-02-12] MEDS: hydrALAZINE HCL 25 MG TAB PO SCH ×2 (12:52→20:54)
--- NOTE | 2020-02-12 13:35 | P.CONS ---
History of Present Illness - Reason for Consult Consult date: 02/12/20 Wound care - History of Present Illness This is a 74-year-old patient being seen on 3 S. by the wound care center for nonhealing ulcerations to bilateral plantar aspects of the forefoot. Patient states that the ulcerations have been there since June. She has been seen a visiting physician who has been doing wound care to the site. Patient states that they've been utilizing silver. Patient states that x-rays have been done and no ostium myelitis was seen. Patient past medical history significant for asthma, and coronary artery disease, heart failure, COPD, diabetes, acid reflux, hyperlipidemia, hypertension, myocardial infection, osteoporosis, neuropathy to bilateral feet, obstructive sleep apnea. Review of Systems Review Of Systems: Constitutional: No fever, no chills, no night sweats. No weight change. No weakness, fatigue or lethargy. No daytime sleepiness. Integumentary:reports wounds, no lesions. No rash or pruritus. No unusual bruising. No change in hair or nails. Past Medical History Past Medical History: Asthma, Coronary Artery Disease (CAD), Heart Failure, COPD, Diabetes Mellitus, GERD/Reflux, Hyperlipidemia, Hypertension, Myocardial Infarction (MD), Osteoarthritis (OA), Pneumonia, Renal Disease, Skin Disorder, Sleep Apnea/CPAP/BIPAP Additional Past Medical History / Comment(s): Pt states just admitted to [facility] as a direct admit for bilateral foot sores/infection and they determined she did not have osteomyelitis. 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 with cardiogenic shock/pulmonary edema/respiratory failure, cardiomyopathy, NIDDM type II, neuropathy bilateral feet, bilateral diabetic foot ulcers, past cellulitis, pneumonias, past R lung pne with empyema/surgery, gastritis, colitis/frequent diarrhea, benign colon polyps, renal disease stage III, IRA with no device used d/t severe clausterphobia, home oxygen at 2L/NC at HS, occasional lower leg edema, RLS, Last Myocardial Infarction Date:: 2019 History of Any Multi-Drug Resistant Organisms: None Reported Past Surgical History: Appendectomy, Breast Surgery, Cholecystectomy, Heart Catheterization, Heart Catheterization With Stent Additional Past Surgical History / Comment(s): PCI with stents, R lung th oracotomy/decortication for empyema, bilateral feet/sores debrided, L breast benign bx, colonoscopy/benign polypectomy, EGD Past Anesthesia/Blood Transfusion Reactions: No Reported Reaction Additional Past Anesthesia/Blood Transfusion Reaction / Comm: severe claustrophobia Date of Last Stent Placement:: 11/27/19 Past Psychological History: No Psychological Hx Reported Additional Psychological History / Comment(s): Severe claustrophobia. Pt resides alone in her home. She has 14 stair steps to get up to her bathroom/bedroom. She is established with [facility]- a nurse for wound care and PT and has Dr. Kebede for home wound care. Smoking Status: Former smoker Past Alcohol Use History: None Reported Additional Past Alcohol Use History / Comment(s): STARTED SMOKING AGE 18 (1961) AND QUIT 1994. SMOKED 1 PPD. STATES SHE IS AN ALCOHOLIC AND QUIT DRINKING over 30 yrs ago Past Drug Use History: None Reported - Past Family History Brother(s) Family Medical History: Cancer Additional Family Medical History / Comment(s): Colon cancer Father Family Medical History: Chest Pain / Angina Additional Family Medical History / Comment(s): Father of a MD at the age of 77yrs. Mother Family Medical History: Chest Pain / Angina Additional Family Medical History / Comment(s): Mother of a MD at the age of 74yrs. Medications and Allergies Home Medications Medication Instructions Recorded Confirmed Type Cholecalciferol [Vitamin D3 (25 1,000 unit PO DAILY 02/26/15 02/09/20 History Mcg = 1000 Iu)] Clopidogrel [Plavix] 75 mg PO DAILY 09/05/15 02/09/20 History Montelukast Sodium [Singulair] 10 mg PO HS #30 tab 10/25/15 02/09/20 Rx Nitroglycerin Sl Tabs [Nitrostat] 0.4 mg SUBLINGUAL Q5M PRN #0 tab 09/24/16 02/09/20 Rx [place]-3 Fatty Acids [[place]-3] 2,000 mg PO DAILY 09/29/18 02/09/20 History Isosorbide Mononitrate ER [Imdur] 60 mg PO DAILY #30 tab.er.24h 11/17/18 02/09/20 Rx Dicyclomine [Bentyl] 10 mg PO DAILY 04/16/19 02/09/20 History Acetaminophen Tab [Tylenol] 500 mg PO Q6HR PRN tab 06/23/19 02/09/20 Rx Fluticasone/Umeclidin/Vilanter 1 puff INHALATION RT-DAILY 07/07/19 02/09/20 His tory [Trelegy Ellipta 100-62.5-25] Dulaglutide [Trulicity] 1.5 mg SQ KISER 08/15/19 02/09/20 History Furosemide [Lasix] 40 mg PO BID 08/15/19 02/09/20 History Insulin Aspart Protam & Aspart 30 unit SQ BID 08/15/19 02/09/20 History [NovoLOG MIX 70-30 Flexpen] Metoclopramide [Reglan] 10 mg PO QID PRN 08/15/19 02/09/20 History HYDROcodone/APAP 7.5-325MG [[place] 1 tab PO Q6H PRN #12 tab 09/04/19 02/09/20 Rx 7.5-325] Magnesium Oxide 400 mg PO DAILY 11/02/19 02/09/20 History rOPINIRole HCL [Requip] 4 mg PO TID 11/02/19 02/09/20 History Omeprazole [PriLOSEC] 40 mg PO HS #30 cap 11/08/19 02/09/20 Rx Ranolazine [Ranexa] 500 mg PO Q12HR #60 tab.er.12h 11/08/19 02/09/20 Rx Formoterol Fumarate [Perforomist] 20 mcg INHALATION RT-BID 11/26/19 02/09/20 History levalbuterol HCL [Levalbuterol HCl] 0.63 mg INHALATION RT-QID 11/26/19 02/09/20 History lisinopriL [Zestril] 20 mg PO BID tab 12/03/19 02/09/20 Rx Aspirin EC [Ecotrin] 325 mg PO DAILY 02/09/20 02/09/20 History Atorvastatin [Lipitor] 80 mg PO HS 02/09/20 02/09/20 History Ciprofloxacin HCl [Cipro] 500 mg PO Q12HR 02/09/20 02/09/20 History Ferrous Sulfate [Feosol] 325 mg PO DAILY 02/09/20 02/09/20 History Metoprolol Tartrate [Lopressor] 50 mg PO BID 02/09/20 02/09/20 History metFORMIN HCL 1,000 mg PO BID 02/09/20 02/09/20 History Allergies Allergy/AdvReac Type Severity Reaction Status Date / Time amoxicillin [From Augmentin] Allergy Rash/Hives Verified 02/09/20 10:47 clavulanic acid Allergy Rash/Hives Verified 02/09/20 10:47 [From Augmentin] metronidazole [From Flagyl] Allergy Nausea & Verified 02/09/20 10:47 Vomiting adhesive tape AdvReac bruises,"paper Verified 02/09/20 10:47 tape is ok" albuterol AdvReac Rapid Verified 02/09/20 10:47 Heart Rate stress test injection Allergy Anaphylaxis Uncoded 02/09/20 09:41 sun dried tomatoes Allergy lip Uncoded 02/09/20 09:41 swelling Physical Exam Vitals: Vital Signs Temp Pulse Resp BP BP Pulse Ox 02/12/20 12:34 88/38 02/12/20 12:02 80/42 02/12/20 12:00 49 L 16 02/12/20 11:40 49 L 16 79/45 87/52 95 02/12/20 09:30 97.9 F 62 16 147/68 95 02/12/20 03:50 63 19 162/60 94 L 02/12/20 00:00 57 L 18 176/77 94 L 02/11/20 20:00 97.9 F 66 19 146/65 97 02/11/20 16:00 97.7 F 74 18 173/63 94 L 02/11/20 15:47 64 18 Intake and Output 02/11/20 02/12/20 02/12/20 22:59 06:59 14:59 Intake Total 0 358 Output Total 250 600 Balance -250 -600 358 Intake: Oral 0 358 Output: Urine 250 600 Other: Voiding Method Toilet Toilet Toilet # Voids 1 1 Weight 106.6 kg Physical exam: General Appearance: Alert, cooperative, no distress, appears stated age. Skin: Bilateral nonhealing ulcerations to the plantar aspect of the forefoot with fat layer exposure. Right ulceration measuring approximately 4 x 2.6 x 0.4 cm with undermining, wound edges not attached to the wound bed. Granulation seen throughout with minimal slough.. Room shows callus and scarring, left foot ulceration measures approximate 3.7 x 2.0 x 0.4 cm with fatty layer exposure positive undermining noted to wound edge. Wound edges not attached to the wound bed granulation seen throughout the wound bed, minimal slough, periwound shows callus all other Skin color, texture, tugor normal, no rashes or lesions. Neurologic: Alert oriented x3 Results CBC & Chem 7: 02/12/20 08:09 02/12/20 13:02 Labs: Abnormal Lab Results - Last 24 Hours (Table) 02/11/20 02/11/20 02/11/20 Range/Units 08:58 17:20 20:20 WBC (3.8-10.6) k/uL Hgb (11.4-16.0) gm/dL MCV (80.0-100.0) fL MCH (25.0-35.0) pg MCHC (31.0-37.0) g/dL RDW (11.5-15.5) % Neutrophils # (1.3-7.7) k/uL Sodium (137-145) mmol/L Chloride (98-107) mmol/L Glucose (74-99) mg/dL POC Glucose (mg/dL) 184 H 179 H (75-99) mg/dL Osmolality 262 L (280-301) mosm/kg Magnesium (1.6-2.3) mg/dL 02/12/20 02/12/20 02/12/20 Range/Units 06:18 08:09 08:09 WBC 13.6 H (3.8-10.6) k/uL Hgb 10.4 L (11.4-16.0) gm/dL MCV 65.8 L (80.0-100.0) fL MCH 20.0 L (25.0-35.0) pg MCHC 30.3 L (31.0-37.0) g/dL RDW 17.8 H (11.5-15.5) % Neutrophils # 10.0 H (1.3-7.7) k/uL Sodium 119 L* (137-145) mmol/L Chloride 82 L (98-107) mmol/L Glucose 215 H (74-99) mg/dL POC Glucose (mg/dL) 192 H (75-99) mg/dL Osmolality (280-301) mosm/kg Magnesium 1.3 L (1.6-2.3) mg/dL 02/12/20 02/12/20 Range/Units 11:57 13:02 WBC (3.8-10.6) k/uL Hgb (11.4-16.0) gm/dL MCV (80.0-100.0) fL MCH (25.0-35.0) pg MCHC (31.0-37.0) g/dL RDW (11.5-15.5) % Neutrophils # (1.3-7.7) k/uL Sodium 115 L* (137-145) mmol/L Chloride (98-107) mmol/L Glucose (74-99) mg/dL POC Glucose (mg/dL) 196 H (75-99) mg/dL Osmolality (280-301) mosm/kg Magnesium (1.6-2.3) mg/dL Assessment and Plan (1) Diabetic foot ulcer associated with type 2 diabetes mellitus, with fat layer exposed Current Visit: Yes Status: Acute Code(s): E11.621 - TYPE 2 DIABETES MELLITUS WITH FOOT ULCER; L97.502 - NON-PRS CHRONIC ULCER OTH PRT UNSP FOOT W FAT LAYER EXPOSED SNOMED Code(s): 6621485461248 (2) Non-healing ulcer of right foot with fat layer exposed Current Visit: Yes Status: Acute Code(s): L97.512 - NON-PRS CHRONIC ULCER OTH PRT RIGHT FOOT W FAT LAYER EXPOSED SNOMED Code(s): 248077983 (3) Non-healing ulcer of left foot with fat layer exposed Current Visit: Yes Status: Acute Code(s): L97.522 - NON-PRS CHRONIC ULCER OTH PRT LEFT FOOT W FAT LAYER EXPOSED SNOMED Code(s): 988347436 Plan: Applied absorptive silver, saline moistened gauze, dry gauze, rolled gauze secured paper tape and Wilbur wrap. Patient to walk on heels more than forefoot utilizing a walker. Patient will benefit from outpatient wound care which she is agreeable to. Thank you kindly for the consultation any questions please contact the wound care center DNP note has been reviewed and discussed with Dr. Hinson and the impression and plan of care has been directed as dictated.
[2020-02-12 13:45] LABS: Glucose,Whole Blood 293 mg/dL (75-99)
[2020-02-12] MEDS ORDERED: SODIUM CHLORIDE 3%(HYPERTONIC) 500 ML IV SCH (14:30)
--- NOTE | 2020-02-12 15:14 | P.CONS ---
History of Present Illness - Reason for Consult Consult date: 02/12/20 chronic RLE DVT Requesting physician: Reed E Sheet - Chief Complaint chest pain - History of Present Illness Mrs. Brand is a very pleasant 74-year-old female who recently had cardiac stent, on aspirin and Plavix. She came into the hospital with complaints of chest pain along with nausea and vomiting. CTA no evidence of pulmonary embolism, bilateral lower extremity Doppler did show a right lower extremity chronic DVT, nonocclusive. Patient states that she was told this was present as far back as 2013. I'm unable to find documentation of the same in the current system. Patient does not recall being on any blood thinners her anticoagulation, she had no idea that she had a blood clot in her leg. Patient does have chronic swelling of the lower extremities, chronic wound since June and frequent hospitalizations. She denies any pain in the legs or the pelvis at this time, bleeding or unusual bruising. Review of Systems 10 point review of systems is negative except as stated in HPI Past Medical History Past Medical History: Asthma, Coronary Artery Disease (CAD), Heart Failure, COPD, Diabetes Mellitus, Deep Vein Thrombosis (DVT), GERD/Reflux, Hyperlipidemia, Hypertension, Myocardial Infarction (AK), Osteoarthritis (OA), Pneumonia, Renal Disease, Skin Disorder, Sleep Apnea/CPAP/BIPAP Additional Past Medical History / Comment(s): Pt states just admitted to [facility] as a direct admit for bilateral foot sores/infection and they determined she did not have osteomyelitis. Other hx: MIs with last AK 11/2019 with cardiogenic shock/pulmonary edema/respiratory failure, cardiomyopathy, NIDDM type II, neuropathy bilateral feet, bilateral diabetic foot ulcers, past cellulitis, pneumonias, past R lung pne with empyema/surgery, gastritis, colitis/frequent diarrhea, benign colon polyps, renal disease stage III, IRA with no device used d/t severe clausterphobia, home oxygen at 2L/NC at HS, occasional lower leg edema, RLS, Last Myocardial Infarction Date:: 2019 History of Any Multi-Drug Resistant Organisms: None Reported Past Surgical History: Appendectomy, Breast Surgery, Cholecystectomy, Heart Catheterization, Heart Catheterization With Stent Additional Past Surgical History / Comment(s): PCI with stents, R lung thoracotomy/decortication for empyema, bilateral feet/sores debrided, L breast benign bx, colonoscopy/benign polypectomy, EGD Past Anesthesia/Blood Transfusion Reactions: No Reported Reaction Additional Past Anesthesia/Blood Transfusion Reaction / Comm: severe claustrophobia Date of Last Stent Placement:: 11/27/19 Past Psychological History: No Psychological Hx Reported Additional Psychological History / Comment(s): Severe claustrophobia. Pt resides alone in her home. She has 14 stair steps to get up to her bathroom/bedroom. She is established with [facility]- a nurse for wound care and PT and has Dr. Kebede for home wound care. Smoking Status: Former smoker Past Alcohol Use History: None Reported Additional Past Alcohol Use History / Comment(s): STARTED SMOKING AGE 18 (1961) AND QUIT 1994. SMOKED 1 PPD. STATES SHE IS AN ALCOHOLIC AND QUIT DRINKING over 30 yrs ago Past Drug Use History: None Reported - Past Family History Brother(s) Family Medical History: Cancer Additional Family Medical History / Comment(s): Colon cancer Father Family Medical History: Chest Pain / Angina Additional Family Medical History / Comment(s): Father of a AK at the age of 77yrs. Mother Family Medical History: Chest Pain / Angina Additional Family Medical History / Comment(s): Mother of a AK at the age of 74yrs. Medications and Allergies Home Medications Medication Instructions Recorded Confirmed Type Cholecalciferol [Vitamin D3 (25 1,000 unit PO DAILY 02/26/15 02/09/20 History Mcg = 1000 Iu)] Clopidogrel [Plavix] 75 mg PO DAILY 09/05/15 02/09/20 History Montelukast Sodium [Singulair] 10 mg PO HS #30 tab 10/25/15 02/09/20 Rx Nitroglycerin Sl Tabs [Nitrostat] 0.4 mg SUBLINGUAL Q5M PRN #0 tab 09/24/16 02/09/20 Rx [place]-3 Fatty Acids [[place]-3] 2,000 mg PO DAILY 09/29/18 02/09/20 History Isosorbide Mononitrate ER [Imdur] 60 mg PO DAILY #30 tab.er.24h 11/17/18 02/09/20 Rx Dicyclomine [Bentyl] 10 mg PO DAILY 04/16/19 02/09/20 History Acetaminophen Tab [Tylenol] 500 mg PO Q6HR PRN tab 06/23/19 02/09/20 Rx Fluticasone/Umeclidin/[place]an[place] 1 puff INHALATION RT-DAILY 07/07/19 02/09/20 History [Trelegy Ellipta 100-62.5-25] Dulaglutide [Trulicity] 1.5 mg SQ KISER 08/15/19 02/09/20 History Furosemide [Lasix] 40 mg PO BID 08/15/19 02/09/20 History Insulin Aspart Protam & Aspart 30 unit SQ BID 08/15/19 02/09/20 History [NovoLOG MIX 70-30 Flexpen] Metoclopramide [Reglan] 10 mg PO QID PRN 08/15/19 02/09/20 History HYDROcodone/APAP 7.5-325MG [[place] 1 tab PO Q6H PRN #12 tab 09/04/19 02/09/20 Rx 7.5-325] Magnesium Oxide 400 mg PO DAILY 11/02/19 02/09/20 History rOPINIRole HCL [Requip] 4 mg PO TID 11/02/19 02/09/20 History Omeprazole [PriLOSEC] 40 mg PO HS #30 cap 11/08/19 02/09/20 Rx Ranolazine [Ranexa] 500 mg PO Q12HR #60 tab.er.12h 11/08/19 02/09/20 Rx Formoterol Fumarate [Perforomist] 20 mcg INHALATION RT-BID 11/26/19 02/09/20 History levalbuterol HCL [Levalbuterol HCl] 0.63 mg INHALATION RT-QID 11/26/19 02/09/20 History lisinopriL [Zestril] 20 mg PO BID tab 12/03/19 02/09/20 Rx Aspirin EC [Ecotrin] 325 mg PO DAILY 02/09/20 02/09/20 History Atorvastatin [Lipitor] 80 mg PO HS 02/09/20 02/09/20 History Ciprofloxacin HCl [Cipro] 500 mg PO Q12HR 02/09/20 02/09/20 History Ferrous Sulfate [Feosol] 325 mg PO DAILY 02/09/20 02/09/20 History Metoprolol Tartrate [Lopressor] 50 mg PO BID 02/09/20 02/09/20 History metFORMIN HCL 1,000 mg PO BID 02/09/20 02/09/20 History Allergies Allergy/AdvReac Type Severity Reaction Status Date / Time amoxicillin [From Augmentin] Allergy Rash/Hives Verified 02/09/20 10:47 clavulanic acid Allergy Rash/Hives Verified 02/09/20 10:47 [From Augmentin] metronidazole [From Flagyl] Allergy Nausea & Verified 02/09/20 10:47 Vomiting adhesive tape AdvReac bruises,"paper Verified 02/09/20 10:47 tape is ok" albuterol AdvReac Rapid Verified 02/09/20 10:47 Heart Rate stress test injection Allergy Anaphylaxis Uncoded 02/09/20 09:41 sun dried tomatoes Allergy lip Uncoded 02/09/20 09:41 swelling Physical Exam Vitals: Vital Signs Temp Pulse Resp BP BP Pulse Ox 02/12/20 12:34 88/38 02/12/20 12:02 80/42 02/12/20 12:00 49 L 16 02/12/20 11:40 49 L 16 79/45 87/52 95 02/12/20 09:30 97.9 F 62 16 147/68 95 02/12/20 03:50 63 19 162/60 94 L 02/12/20 00:00 57 L 18 176/77 94 L 02/11/20 20:00 97.9 F 66 19 146/65 97 02/11/20 16:00 97.7 F 74 18 173/63 94 L 02/11/20 15:47 64 18 Intake and Output 02/11/20 02/12/20 02/12/20 22:59 06:59 14:59 Intake Total 0 358 Output Total 250 600 Balance -250 -600 358 Intake: Oral 0 358 Output: Urine 250 600 Other: Voiding Method Toilet Toilet Toilet # Voids 1 1 Weight 106.6 kg - Constitutional General appearance: cooperative, no acute distress, obese - EENT Eyes: anicteric sclerae, EOMI ENT: hearing grossly normal, normal oropharynx - Neck Neck: no lymphadenopathy - Respiratory Respiratory: bilateral: diminished - Cardiovascular Heart sounds: normal: S1, S2 leg Peripheral Edema: bilateral: Trace - Gastrointestinal General gastrointestinal: normal bowel sounds, soft - Neurologic Neurologic: CNII-XII intact - Musculoskeletal Musculoskeletal: generalized weakness - Psychiatric Psychiatric: A&O x's 3, appropriate affect, intact judgment & insight Results CBC & Chem 7: 02/12/20 08:09 02/12/20 13:02 Labs: Abnormal Lab Results - Last 24 Hours (Table) 02/11/20 02/11/20 02/12/20 Range/Units 17:20 20:20 06:18 WBC (3.8-10.6) k/uL Hgb (11.4-16.0) gm/dL MCV (80.0-100.0) fL MCH (25.0-35.0) pg MCHC (31.0-37.0) g/dL RDW (11.5-15.5) % Neutrophils # (1.3-7.7) k/uL Sodium (137-145) mmol/L Chloride (98-107) mmol/L Glucose (74-99) mg/dL POC Glucose (mg/dL) 184 H 179 H 192 H (75-99) mg/dL Magnesium (1.6-2.3) mg/dL 02/12/20 02/12/20 02/12/20 Range/Units 08:09 08:09 11:57 WBC 13.6 H (3.8-10.6) k/uL Hgb 10.4 L (11.4-16.0) gm/dL MCV 65.8 L (80.0-100.0) fL MCH 20.0 L (25.0-35.0) pg MCHC 30.3 L (31.0-37.0) g/dL RDW 17.8 H (11.5-15.5) % Neutrophils # 10.0 H (1.3-7.7) k/uL Sodium 119 L* (137-145) mmol/L Chloride 82 L (98-107) mmol/L Glucose 215 H (74-99) mg/dL POC Glucose (mg/dL) 196 H (75-99) mg/dL Magnesium 1.3 L (1.6-2.3) mg/dL 02/12/20 02/12/20 Range/Units 13:02 13:44 WBC (3.8-10.6) k/uL Hgb (11.4-16.0) gm/dL MCV (80.0-100.0) fL MCH (25.0-35.0) pg MCHC (31.0-37.0) g/dL RDW (11.5-15.5) % Neutrophils # (1.3-7.7) k/uL Sodium 115 L* (137-145) mmol/L Chloride (98-107) mmol/L Glucose (74-99) mg/dL POC Glucose (mg/dL) 293 H (75-99) mg/dL Magnesium (1.6-2.3) mg/dL Comments: Bilateral lower extremity Doppler report reviewed CT scan - abdomen: report reviewed CT scan - chest: report reviewed CT scan - pelvis: report reviewed Assessment and Plan (1) Deep vein thrombosis, lower right extremity Narrative/Plan: Review of the Doppler is most suggestive of a chronic DVT. Patient is currently on aspirin and Plavix for a recent cardiac stent placement. Venous thrombosis is typically treated with anticoagulants versus antiplatelet therapies. Patient's risk factors include frequent hospitalizations, inflammation due to chronic wounds, likely a degree of peripheral vascular disease secondary to cardiovascular disease and diabetes. Patient risk for bleeding though with both anticoagulation and antiplatelet therapy is significant. PE has been ruled out with CTA of chest, bilateral lower extremity Dopplers to not discuss any acute component to the clot. Dr. Quinones would like to find the results of the Doppler from 2014 to review. We're looking in the same. Final recommendations to follow. Current Visit: Yes Status: Chronic Priority: High Code(s): I82.401 - ACUTE EMBOLISM AND THOMBOS UNSP DEEP VEINS OF R LOW EXTREM SNOMED Code(s): 866301144 Plan: Doctor attests: I performed a history and physical examination of this patient, developed impression and plan of care. Discussed with dictator. I agree with dictators note, documented as a scribe.
--- NOTE | 2020-02-12 16:08 | P.CNPUL ---
History of Present Illness Consult date: 02/12/20 Reason for consult: other (As below) Chief complaint: Hypotension, bradycardia, ICU care History of present illness: This is a 74-year-old morbidly obese female came into the hospital with diffuse nonspecific complaints involving the chest discomfort abdominal pain, she underwent a computed tomography scan of the chest negative for pulmonary embolism, patient has a recent history of cardiac cath angiogram and stent p lacement has been on aspirin and Plavix, she has chronic DVT of the lower extremities, her past medical history significant for a COPD has been on home oxygen 3 L she also has a sleep apnea has been on CPAP other active problem" I artery disease is diabetes hypertension and dyslipidemia, patient was in fact slightly hypertensive this morning receive beta yoselyn since then her drop in blood pressure has been noted her systolic blood pressure ranges around 80s heart rate went down to 40s, patient transferred to the ICU however she is awake and alert no signs diaphoresis, she has been found to have a sodium of 1:15 does have a history of chronic hyponatremia into 130s, patient is to be given 3% saline as per renal service, her antihypertensive agents are being held, patient remains on broad-spectrum antibiotics for suspected sepsis of unclear etiology, her magnesium is found to be on a 1.3, along with an microcytic anemia, Review of Systems All systems: negative Past Medical History Past Medical History: Asthma, Coronary Artery Disease (CAD), Heart Failure, COPD, Diabetes Mellitus, Deep Vein Thrombosis (DVT), GERD/Reflux, Hyperlipidemia, Hypertension, Myocardial Infarction ([place]), Osteoarthritis (OA), Pneumonia, Renal Disease, Skin Disorder, Sleep Apnea/CPAP/BIPAP Additional Past Medical History / Comment(s): Pt states just admitted to [facility] as a direct admit for bilateral foot sores/infection and they determined she did not have osteomyelitis. Other hx: MIs with last [place] 11/2019 with cardiogenic shock/pulmonary edema/respiratory failure, cardiomyopathy, NIDDM type II, n europathy bilateral feet, bilateral diabetic foot ulcers, past cellulitis, pneumonias, past R lung pne with empyema/surgery, gastritis, colitis/frequent diarrhea, benign colon polyps, renal disease stage III, IAR with no device used d/t severe clausterphobia, home oxygen at 2L/NC at HS, occasional lower leg edema, RLS, Last Myocardial Infarction Date:: 2019 History of Any Multi-Drug Resistant Organisms: None Reported Past Surgical History: Appendectomy, Breast Surgery, Cholecystectomy, Heart Catheterization, Heart Catheterization With Stent Additional Past Surgical History / Comment(s): PCI with stents, R lung thoracotomy/decortication for empyema, bilateral feet/sores debrided, L breast benign bx, colonoscopy/benign polypectomy, EGD Past Anesthesia/Blood Transfusion Reactions: No Reported Reaction Additional Past Anesthesia/Blood Transfusion Reaction / Comment(s): severe claustrophobia Date of Last Stent Placement:: 11/27/19 Past Psychological History: No Psychological Hx Reported Additional Psychological History / Comment(s): Severe claustrophobia. Pt res ides alone in her home. She has 14 stair steps to get up to her bathroom/bedroom. She is established with [facility]- a nurse for wound care and PT and has Dr. Kebede for home wound care. Smoking Status: Former smoker Past Alcohol Use History: None Reported Additional Past Alcohol Use History / Comment(s): STARTED SMOKING AGE 18 (1963) AND QUIT 1994. SMOKED 1 PPD. STATES SHE IS AN ALCOHOLIC AND QUIT DRINKING over 30 yrs ago Past Drug Use History: None Reported - Past Family History Brother(s) Family Medical History: Cancer Additional Family Medical History / Comment(s): Colon cancer Father Family Medical History: Chest Pain / Angina Additional Family Medical History / Comment(s): Father of a [place] at the age of 77yrs. Mother Family Medical History: Chest Pain / Angina Additional Family Medical History / Comment(s): Mother of a [place] at the age of 74yrs. Medications and Allergies Home Medications Medication Instructions Recorded Confirmed Type Cholecalciferol [Vitamin D3 (25 1,000 unit PO DAILY 02/26/15 02/09/20 History Mcg = 1000 Iu)] Clopidogrel [Plavix] 75 mg PO DAILY 09/05/15 02/09/20 History Montelukast Sodium [Singulair] 10 mg PO HS #30 tab 10/25/15 02/09/20 Rx Nitroglycerin Sl Tabs [Nitrostat] 0.4 mg SUBLINGUAL Q5M PRN #0 tab 09/24/16 02/09/20 Rx Brooks-3 Fatty Acids [Brooks-3] 2,000 mg PO DAILY 09/29/18 02/09/20 History Isosorbide Mononitrate ER [Imdur] 60 mg PO DAILY #30 tab.er.24h 11/17/1802/08 Rx Dicyclomine [Bentyl] 10 mg PO DAILY 04/16/19 02/09/20 History Acetaminophen Tab [Tylenol] 500 mg PO Q6HR PRN tab 06/23/19 02/09/20 Rx Fluticasone/Umeclidin/Vilanter 1 puff INHALATION RT-DAILY 07/07/19 02/09/20 History [Trelegy Ellipta 100-62.5-25] Dulaglutide [Trulicity] 1.5 mg SQ KISER 08/15/19 02/09/20 History Furosemide [Lasix] 40 mg PO BID 08/15/19 02/09/20 History Insulin Aspart Protam & Aspart 30 unit SQ BID 08/15/19 02/09/20 History [NovoLOG MIX 70-30 Flexpen] Metoclopramide [Reglan] 10 mg PO QID PRN 08/15/19 02/09/20 History HYDROcodone/APAP 7.5-325MG [Mitchell 1 tab PO Q6H PRN #12 tab 09/04/19 02/09/20 Rx 7.5-325] Magnesium Oxide 400 mg PO DAILY 11/02/19 02/09/20 History rOPINIRole HCL [Requip] 4 mg PO TID 11/02/19 02/09/20 History Omeprazole [PriLOSEC] 40 mg PO HS #30 cap 11/08/19 02/09/20 Rx Ranolazine [Ranexa] 500 mg PO Q12HR #60 tab.er.12h 11/08/19 02/09/20 Rx Formoterol Fumarate [Perforomist] 20 mcg INHALATION RT-BID 11/26/19 02/09/20 History levalbuterol HCL [Levalbuterol HCl] 0.63 mg INHALATION RT-QID 11/26/19 02/09/20 History lisinopriL [Zestril] 20 mg PO BID tab 12/03/19 02/09/20 Rx Aspirin EC [Ecotrin] 325 mg PO DAILY 02/09/20 02/09/20 History Atorvastatin [Lipitor] 80 mg PO HS 02/09/20 02/09/20 History Ciprofloxacin HCl [Cipro] 500 mg PO Q12HR 02/09/20 02/09/20 History Ferrous Sulfate [Feosol] 325 mg PO DAILY 02/09/20 02/09/20 History Metoprolol Tartrate [Lopressor] 50 mg PO BID 02/09/20 02/09/20 History metFORMIN HCL 1,000 mg PO BID 02/09/20 02/09/20 History Allergies Allergy/AdvReac Type Severity Reaction Status Date / Time amoxicillin [From Augmentin] Allergy Rash/Hives Verified 02/09/20 10:47 clavulanic acid Allergy Rash/Hives Verified 02/09/20 10:47 [From Augmentin] metronidazole [From Flagyl] Allergy Nausea & Verified 02/09/20 10:47 Vomiting adhesive tape AdvReac bruises,"paper Verified 02/09/20 10:47 tape is ok" albuterol AdvReac Rapid Verified 02/09/20 10:47 Heart Rate stress test injection Allergy Anaphylaxis Uncoded 02/09/20 09:41 sun dried tomatoes Allergy lip Uncoded 02/09/20 09:41 swelling Physical Exam Vitals: Vital Signs Temp Pulse Resp BP BP Pulse Ox 02/12/20 12:34 88/38 02/12/20 12:02 80/42 02/12/20 12:00 49 L 16 02/12/20 11:40 49 L 16 79/45 87/52 95 02/12/20 09:30 97.9 F 62 16 147/68 95 02/12/20 03:50 63 19 162/60 94 L 02/12/20 00:00 57 L 18 176/77 94 L 02/11/20 20:00 97.9 F 66 19 146/65 97 02/11/20 16:00 97.7 F 74 18 173/63 94 L Intake and Output 02/12/20 02/12/20 02/12/20 06:59 14:59 22:59 Intake Total 358 Output Total 600 Balance -600 358 Intake: Oral 358 Output: Urine 600 Other: Voiding Method Toilet Toilet # Voids 1 Weight 106.6 kg - Constitutional General appearance: cooperative, no acute distress, obese - EENT Eyes: anicteric sclerae, EOMI ENT: hearing grossly normal, normal oropharynx - Neck Neck: no lymphadenopathy - Respiratory Respiratory: bilateral: diminished - Cardiovascular Heart sounds: normal: S1, S2 leg Peripheral Edema: bilateral: Trace - Gastrointestinal General gastrointestinal: normal bowel sounds, soft - Neurologic Neurologic: CNII-XII intact - Musculoskeletal Musculoskeletal: generalized weakness - Psychiatric Psychiatric: A&O x's 3, appropriate affect, intact judgment & insight Results - Laboratory Findings CBC and BMP: 02/12/20 08:09 02/12/20 13:02 PT/INR, D-dimer PT 9.4 sec (9.0-12.0) 02/09/20 10:17 INR 0.9 (<1.2) 02/09/20 10:17 D-Dimer 1.58 mg/L FEU (<0.60) H 02/09/20 10:17 Abnormal lab findings: Abnormal Labs 02/09/20 02/09/20 02/09/20 10:17 10:17 10:17 WBC 16.3 H RBC Hgb 10.4 L Hct 33.8 L MCV 66.8 L MCH 20.5 L MCHC 30.7 L RDW 17.3 H Plt Count Neutrophils # 11.9 H D-Dimer 1.58 H Sodium 125 L Potassium 5.2 H Chloride 91 L Glucose 130 H POC Glucose (mg/dL) Osmolality Magnesium 1.3 L HDL Cholesterol 02/09/20 02/09/20 02/09/20 17:55 20:02 23:15 WBC RBC Hgb Hct MCV MCH MCHC RDW Plt Count Neutrophils # D-Dimer Sodium Potassium Chloride Glucose POC Glucose (mg/dL) 245 H 242 H 228 H Osmolality Magnesium HDL Cholesterol 02/10/20 02/10/20 02/10/20 06:34 06:52 06:52 WBC 19.5 H RBC 5.56 H Hgb 11.1 L Hct MCV 65.8 L MCH 20.0 L MCHC 30.3 L RDW 17.6 H Plt Count 497 H Neutrophils # 16.0 H D-Dimer Sodium 126 L Potassium Chloride 86 L Glucose 206 H POC Glucose (mg/dL) 240 H Osmolality Magnesium HDL Cholesterol 70 H 02/10/20 02/10/20 02/10/20 11:45 17:01 20:13 WBC RBC Hgb Hct MCV MCH MCHC RDW Plt Count Neutrophils # D-Dimer Sodium Potassium Chloride Glucose POC Glucose (mg/dL) 206 H 193 H 189 H Osmolality Magnesium HDL Cholesterol 02/11/20 02/11/20 02/11/20 06:50 08:58 08:58 WBC 14.2 H RBC Hgb 11.1 L Hct MCV 66.1 L MCH 21.1 L MCHC RDW 17.6 H Plt Count Neutrophils # 10.7 H D-Dimer Sodium 122 L Potassium Chloride 86 L Glucose 227 H POC Glucose (mg/dL) 203 H Osmolality Magnesium HDL Cholesterol 02/11/20 02/11/20 02/11/20 08:58 12:50 17:20 WBC RBC Hgb Hct MCV MCH MCHC RDW Plt Count Neutrophils # D-Dimer Sodium Potassium Chloride Glucose POC Glucose (mg/dL) 190 H 184 H Osmolality 262 L Magnesium HDL Cholesterol 02/11/20 02/12/20 02/12/20 20:20 06:18 08:09 WBC RBC Hgb Hct MCV MCH MCHC RDW Plt Count Neutrophils # D-Dimer Sodium 119 L* Potassium Chloride 82 L Glucose 215 H POC Glucose (mg/dL) 179 H 192 H Osmolality Magnesium 1.3 L HDL Cholesterol 02/12/20 02/12/20 02/12/20 08:09 11:57 13:02 WBC 13.6 H RBC Hgb 10.4 L Hct MCV 65.8 L MCH 20.0 L MCHC 30.3 L RDW 17.8 H Plt Count Neutrophils # 10.0 H D-Dimer Sodium 115 L* Potassium Chloride Glucose POC Glucose (mg/dL) 196 H Osmolality Magnesium HDL Cholesterol 02/12/20 13:44 WBC RBC Hgb Hct MCV MCH MCHC RDW Plt Count Neutrophils # D-Dimer Sodium Potassium Chloride Glucose POC Glucose (mg/dL) 293 H Osmolality Magnesium HDL Cholesterol - Diagnostic Findings CT scan - chest: report reviewed, image reviewed Assessment and Plan Assessment: Hypotension bradycardia and likely associated with beta yoselyn patient is being slowly rehydrated being observe closely Leukocytosis I early sepsis, will do urine and blood culture Chronic DVT of the lower extremity anticoagulation for DVT prophylaxis Severe hypernatremia End-stage severe COPD Chronic hypoxic respiratory failure Obstructive sleep apnea Restless leg syndrome Microcytic anemia Plan: Gently hydrate the patient Monitor sodium very closely not to improve more than 12 mEq per 24 hours Will do urine and blood culture Monitor patient closely in ICU once the heart rate and blood pressure improved can be moved out of the ICU Further recommendations pending plan of care as per clinical response of the patient Time with Patient: Greater than 30
[2020-02-12 17:08] LABS: Glucose,Whole Blood 200 mg/dL (75-99)
[2020-02-12 18:56] LABS: Amorphous Sediment,Urine Moderate /hpf; Appearance,Urine Cloudy (Clear); Bacteria,Urine Rare /hpf; Bilirubin,Urine Negative (Negative); Blood,Urine Negative (Negative); Color,Urine Yellow; Glucose,Urine (UA) 1+ (Negative); Ketones,Urine Negative (Negative); Leukocyte Esterase,Urine Negative (Negative); Mucus,Urine Rare /hpf; Nitrite,Urine Negative (Negative); PH, Urine 7.5 (5.0-8.0); Protein,Urine 2+ (Negative); RBC,Urine 2 /hpf (0-5); Specific Gravity,Urine 1.015 (1.001-1.035); Squamous Epithelial Cell,Urine 5 /hpf (0-4); Urobilinogen,Urine <2.0 mg/dL (<2.0); WBC,Urine 2 /hpf (0-5)
[2020-02-12] MEDS: ATORVASTATIN 80 MG TAB PO SCH (20:53)
[2020-02-12 20:59] LABS: Glucose,Whole Blood 169 mg/dL (75-99)
[2020-02-12] MEDS: MONTELUKAST 10 MG TAB PO SCH (21:13)
--- NOTE | 2020-02-12 21:19 | CONS ---
CONSULTATION REASON FOR CONSULT: Hyponatremia history. HISTORY OF PRESENT ILLNESS: The patient is a 74-year-old female who was admitted to the hospital on 02/09/2020 because of chest pain which is currently resolved. The patient was found to have a low serum sodium of around 125. Her serum sodium did go down to 119 this morning. Patient did receive a L fluid bolus of saline on initial admission. She has not had any hypotension. Blood pressure had been around 150-160 mmHg. However, later on today, it looks like her blood pressure dropped into the 70s and 80s with heart rate at about 49 mL/minute. The patient denies any diarrhea, nausea, vomiting. No new medications started recently. The patient is maintained on Lasix 40 mg b.i.d. at home. I do not see any thiazide diuretics. PAST MEDICAL HISTORY: Asthma, coronary artery disease, CHF, COPD, type 2 diabetes, hyperlipidemia, hypertension, ND, osteoarthritis, gastroesophageal reflux disease, obstructive sleep apnea, history of respiratory failure, pulmonary edema, history of colitis. SOCIAL HISTORY: Negative for smoking, drug abuse or alcohol abuse. MEDICATIONS: Medications at home prior to admission included Zestril, Requip, Ranexa, Prilosec, Singulair, Lopressor, Reglan, magnesium, Imdur, Lasix, Trulicity, Bentyl, Plavix, Cipro, Lipitor, Ecotrin Tylenol. EXAMINATION: Patient is blood pressure earlier at around 4 o'clock to 162/60. However, later on blood pressure had dropped down to 79/45 today. Examination of the heart this morning the S1, S2. Examination of the lungs, bilateral breath sounds are heard. Abdomen is soft, nontender. Examination of lower extremities shows no evidence of edema. CAN RUNNER exam grossly intact. LABS: Show sodium of 119, potassium of 4.5, chloride 82, BUN 12, serum creatinine 0.63. UA shows urine osmolality 483. Random urine sodium was 101. ASSESSMENT: 1. Hyponatremia, initially did appear to be euvolemic as blood pressure was high at 162. However, later on this morning, patient's blood pressure dropped into the 79- 80 mmHg systolic. I will start her on 3% saline for now and transfer her to the ICU. We will repeat a serum sodium again in 3 hours time. Check random cortisol level. Check TSH. Increase protein intake and maintain patient on some degree of free water restriction. 2. Chest pain, currently resolved. 3. History of chronic obstructive pulmonary disease. 4. Type 2 diabetes. PLAN: Start patient on 3% saline. Check random cortisol level. Check TSH level. Repeat sodium in 3 hours time. Thank you for this consultation. We will continue to follow the patient with you during her hospitalization. ANTHONY / FELICITASN: [id number] /
--- NOTE | 2020-02-12 22:59 | PN ---
PROGRESS NOTE 74-year-old white female transferred to ICU with bradycardia and hyponatremia with sodium 115. She was given 3% normal saline per renal service in ICU. Antihypertensive agents have been held. Remains on broad-spectrum antibiotics. Suspected sepsis due to infection in her feet for which she did not want to do a great toe amputation that Dr. Bowles recommended. Her magnesium was 1.3 and microcytic anemia. She is sitting up in bed comfortably eating. Cardiovascular S1-S2. Lungs clear. GI soft, distended, obesity. Extremities: Legs are wrapped. Ulcers have been wrapped in a bandage. Temperature 97.9, blood pressures are low today in the low high 80s over 40s. LABS: Are reviewed. ICU notes were reviewed. Dr. Browne. ASSESSMENT: 1. Hypotension bradycardia associated with possibly medications and slow dehydration. 2. Hyponatremia, unclear etiology, possibly dehydration. 3. Chronic hypoxic respiratory distress. 4. Chronic obstructive pulmonary disease. 5. Congestive heart failure. 6. Sleep apnea. 7. Prior history of deep vein thromboses. Continue empiric antibiotics. Urine and blood cultures. Dr. Perez consult. Monitor sodium. Improved 12 mEq/24 hours. Gently hydrate, infectious Disease consult. ICU note 30 minutes. MMODL / IJN: [id number] /
[2020-02-13] MEDS: HYDROcodone/APAP 7.5-325MG 1 EACH TAB PO PRN ×4 (02:25→21:54)
[2020-02-13 05:32] LABS: Anisocytosis Slight; Basophils # (A) 0.1 k/uL (0-0.2); Basophils % (A) 0 %; Eosinophils # (A) 0.2 k/uL (0-0.7); Eosinophils % (A) 1 %; HCT 32.5 % (34.0-46.0); Hypochromasia Marked; Lymphocytes # (A) 3.4 k/uL (1.0-4.8); Lymphocytes % (A) 23 %; MCH 20.6 pg (25.0-35.0); MCHC 30.8 g/dL (31.0-37.0); MCV 66.7 fL (80.0-100.0); Mean Platelet Volume 6.6; Microcytosis Marked; Monocytes # (A) 0.9 k/uL (0-1.0); Monocytes % (A) 6 %; Neutrophils # (A) 10.4 k/uL (1.3-7.7); Neutrophils % (A) 69 %; Platelet Count 400 k/uL (150-450); RBC 4.88 m/uL (3.80-5.40); RDW 17.5 % (11.5-15.5); WBC 15.2 k/uL (3.8-10.6)
[2020-02-13 05:44] LABS: Albumin 3.2 g/dL (3.5-5.0); Calcium 8.7 mg/dL (8.4-10.2); Magnesium 2.2 mg/dL (1.6-2.3); Potassium 4.1 mmol/L (3.5-5.1); Total Bilirubin 0.5 mg/dL (0.2-1.3); Total Protein 5.9 g/dL (6.3-8.2)
[2020-02-13] MEDS: HEPARIN SODIUM,PORCINE 5,000 UNIT/ML 1 ML VIAL SQ SCH ×3 (06:08→20:38)
[2020-02-13 06:33] LABS: Glucose,Whole Blood 137 mg/dL (75-99)
[2020-02-13] MEDS: INSULIN ASPART (NovoLOG) 100 UNIT/ML VIAL SQ SCH ×4 (06:34→20:48)
[2020-02-13] MEDS: polyethylene glycoL 3350 17 GM POWD.PACK PO SCH (08:53)
[2020-02-13] MEDS: CHOLECALCIFEROL 1,000 UNIT TAB PO SCH (08:55)
[2020-02-13] MEDS: ASPIRIN 81 MG PO SCH (08:55)
[2020-02-13] MEDS: PANTOPRAZOLE 40 MG/10 ML VIAL IVP SCH ×2 (08:55→20:38)
[2020-02-13] MEDS: MAGNESIUM OXIDE 400 MG TAB PO SCH (08:55)
[2020-02-13] MEDS: CIPROFLOXACIN HCL 500 MG TAB PO SCH ×2 (08:55→20:39)
[2020-02-13] MEDS: CLOPIDOGREL 75 MG TAB PO SCH (08:56)
[2020-02-13] MEDS: FERROUS SULFATE 325 MG TAB PO SCH (08:56)
[2020-02-13] MEDS: ISOSORBIDE MONONITRATE ER 60 MG TAB.ER.24H PO SCH (08:56)
[2020-02-13] MEDS: SPIRONOLACTONE 25 MG TAB PO SCH (08:56)
[2020-02-13] MEDS: METOPROLOL TARTRATE 50 MG TAB PO SCH ×2 (08:56→20:38)
[2020-02-13] MEDS: RANOLAZINE 500 MG TAB.ER.12H PO SCH ×2 (08:57→20:38)
[2020-02-13] MEDS: METOCLOPRAMIDE 10 MG TAB PO SCH ×4 (08:57→20:39)
[2020-02-13] MEDS: rOPINIRole HCL 4 MG TABLET PO SCH ×3 (08:57→21:54)
--- NOTE | 2020-02-13 09:02 | CONS ---
CONSULTATION DATE OF SERVICE: February 12, 2020. REQUESTING PHYSICIAN: Dr. Medardo Grande. REASON FOR CONSULTATION: Nausea, vomiting. HISTORY OF PRESENT ILLNESS: The patient is a 74-year-old pleasant white female admitted to hospital because of chest discomfort, abdominal discomfort, nausea, vomiting for the last one week duration. History of coronary artery disease with recent stent placement presently on aspirin and Plavix. At the time of admission to the hospital, she was complaining of persistent nausea, vomiting, and vague abdominal discomfort. However, today the patient stated that she is feeling much better. She was just transferred to the intensive care unit because of severe hyponatremia with a sodium of 115. The patient denies any prior history of peptic ulcer disease or recent NSAID use. She does mention that she had longstanding history of gastroesophageal reflux disease and has been taking PPI on outpatient basis as needed. PAST MEDICAL HISTORY: Significant for coronary artery disease, congestive heart failure, COPD, diabetes mellitus, DVT in the past, GERD, hypertension, hyperlipidemia, and sleep apnea. PAST SURGICAL HISTORY: Breast surgery, appendectomy, cholecystectomy, cardiac catheterization, right lung thoracotomy, EGD and colonoscopy in the past. SOCIAL HISTORY: Former smoker. No alcohol use. FAMILY HISTORY: Brother had colon cancer. Father coronary artery disease. Mother coronary artery disease. MEDICATIONS: Medications at home include: Vitamin D3, Plavix, aspirin, Singulair, Nitrostat, Imdur, Bentyl, Tylenol, Trilepta, Trulicity, Lasix, Reglan, [place], magnesium oxide, Requip, Prilosec, Ranexa, Zestril, Ecotrin, Lipitor, Feosol, Lopressor, metformin. ALLERGIES: TO AUGMENTIN, FLAGYL, ADHESIVE TAPE, ALBUTEROL. REVIEW OF SYSTEMS: CARDIOPULMONARY: She denies any chest pain or shortness of breath. She did have some tightness this morning. Cardiology following the patient. NEUROLOGY unremarkable. PSYCHIATRIC unremarkable. ENT: Vision unremarkable. GI as mentioned above. HEMATOLOGY unremarkable. CONSTITUTIONAL: No recent weight loss. No fever, chills, night sweats. PHYSICAL EXAMINATION: She appears comfortable. No apparent distress. Vital signs stable. Blood pressure is 88/38, pulse rate 49, temperature 97.9. HEENT examination unremarkable. Conjunctivae pink. Sclerae anicteric. Oral cavity no lesions. NECK no JVD or lymph node enlargement. CHEST was clear to auscultation. HEART: Regular rate and rhythm. ABDOMEN: Obese. Bowel sounds are positive. No organomegaly. EXTREMITIES: No pedal edema. NEURO: She is alert and oriented x3. No focal deficits. LABS: From today WBC 13.6, hemoglobin 10.4, platelets 442. Sodium is 115, potassium 5.2, chloride 19, CO2 26, BUN and creatinine 8 and 0.62 respectively. IMPRESSION: 1. Severe hyponatremia. The patient was transferred to the intensive care unit and is being monitored closely. Nephrology has been consulted. 2. Nausea, vomiting and abdominal pain currently has resolved. Patient presently on Protonix 40 mg daily as well as antiemetics as needed. She was getting Reglan as needed along with Zofran. Overall feeling much better. 3. History of chronic deep vein thrombosis. Presently on aspirin and Plavix, doing well. 4. Chronic obstructive pulmonary disease on home O2. 5. Obstructive sleep apnea. RECOMMENDATIONS: 1. Continue with Protonix 40 mg daily. 2. Antiemetics as needed. 3. Reglan as needed. 4. Monitor in the ICU and management of hyponatremia as per meat press operator. 5. No plans on any endoscopic intervention. 6. We will follow with you closely. Thank you for this consultation. MMODL / IJN: [id number] /
[2020-02-13] MEDS: SYMBICORT 80-4.5 MCG INHALER INHALATION SCH ×2 (09:04→21:20)
[2020-02-13] MEDS: FORMOTEROL FUMARATE 20 MCG/2 ML NEBU INHALATION SCH ×2 (09:04→21:21)
[2020-02-13] MEDS: IPRATROPIUM 0.5 MG/2.5 ML NEBU INHALATION SCH ×4 (09:04→21:21)
--- NOTE | 2020-02-13 10:35 | PN ---
PROGRESS NOTE Mrs. Brand is a 74-year-old female with a history of coronary artery disease, history of percutaneous revascularization who presented with symptoms of abdominal and chest discomfort. She was transferred to the ICU yesterday because of worsening of hyponatremia. She is feeling better this morning. Her breathing is better. She denies any chest pain except when she rolled over in bed, and worsened by certain positions. She denies any dizziness or palpitations. She denies any change in her breathing. She continues to be at this time on amlodipine 10 mg daily, aspirin once a day, Lipitor 80 mg daily, Plavix 75 mg daily, iron, hydralazine 25 mg twice a day, isosorbide mononitrate 60 mg daily, Zestril 20 mg daily, metoprolol tartrate 100 mg twice a day, Protonix, Ranexa 500 mg twice a day, spironolactone 25 mg daily. PHYSICAL EXAMINATION: Blood pressure running in the 120s to 130 with a heart rate in the 70s. LUNGS: Clear. HEART exam S1, S2. No S3 with a systolic ejection murmur heard at the base. No diastolic murmur. No rub. ABDOMEN: Soft, nontender. EXTREMITIES: No significant edema. LAB DATA: Revealed a hemoglobin of 10, white blood cell of 15.2. Her sodium is up to 120s, a BUN and creatinine 21 and 1.12. Her TSH is 2.8. Her cortisol level is 12. IMPRESSION: 1. Abdominal discomfort. No evidence to suggest cardiac ischemia. 2. History of coronary artery disease. 3. Hyponatremia, improved. 4. Abdominal discomfort. 5. Hypertension. RECOMMENDATIONS: From the cardiac standpoint, we will continue current therapy. Cardiac-agosto, she appears to be stable. There is no indication for further cardiac workup at this point. We will continue to follow her sodium. Depending on her progress, further recommendations will be made. MMODL / IJN: [id number] /
--- NOTE | 2020-02-13 10:50 | PN ---
PROGRESS NOTE ADDENDUM: Please add: Acute on chronic systolic and diastolic heart failure both. MMODL / IJN: [id number] /
[2020-02-13 10:59] VITALS: BMI 38.7
[2020-02-13] MEDS: hydrALAZINE HCL 25 MG TAB PO SCH ×2 (11:01→22:09)
[2020-02-13] MEDS: DICYCLOMINE 10 MG CAP PO SCH (11:25)
--- NOTE | 2020-02-13 11:35 | PN ---
PROGRESS NOTE Patient is seen for followup for hyponatremia which initially appears to be euvolemic. However, patient's blood pressure had dropped significantly yesterday to 80 mmHg systolic. She was started on 3% saline and transferred to the ICU. Her blood pressure has improved. The patient's urine output had also dropped yesterday when her blood pressure was low. It has picked up now. Patient has been started on 3% saline. Her sodium is up to 120 today. She denies any significant complaints. Urine osmolality was elevated at 483. Therefore there was suspicion for possible SIADH. However, the hypotension does not go along with a picture of SIADH. Serum cortisol was 12, slightly on the lower side. Patient is currently eating. She does not have a history of increased water intake. PHYSICAL EXAMINATION: On examination today, blood pressure was 149/74, heart rate 71 per minute, she is afebrile. Examination of the heart S1, S2. Examination of lungs, decreased breath sounds at bases. Abdomen is soft, obese, nontender. Examination of the lower extremities shows no significant edema. APPLICATION DESIGNER exam is grossly intact. LABS: Show sodium 120, potassium 4.1, chloride 87, CO2 is 27, BUN 21, creatinine 1.12, hemoglobin 10.0 g/dL. ASSESSMENT: 1. Hyponatremia which worsened with saline administration on initial admission with elevated urine osmolality, suggestive of SIADH, but patient's blood pressure had dropped yesterday. She is maintained on 3% saline and repeat sodium is pending. Her sodium had improved to 120 this morning from 115. If her sodium continues to improve, I will discontinue the 3% saline and I will repeat urine osmolality later on today. Maintain off of diuretics. Consider repeating a normal saline challenge if sodium is not further elevated. 2. Nausea and vomiting, currently improved. 3. Acute kidney injury secondary to hypotension. Blood pressure is improved. Repeat labs in a.m. Avoid any other nephrotoxic medications. PLAN: Continue with 3% saline for now, repeat sodium and maintain patient off thiazide diuretics. Discontinue the Zestril and hold off on all antihypertensive medications as blood pressure remains low. MMODL / IJN: [id number] /
[2020-02-13 12:07] LABS: Glucose,Whole Blood 191 mg/dL (75-99)
--- NOTE | 2020-02-13 12:34 | P.PN ---
Subjective Progress Note Date: 02/13/20 Principal diagnosis: Nausea, vomiting This is a pleasant 74-year-old white female who is admitted to the hospital because of chest discomfort, abdominal discomfort, nausea, vomiting for the last 1 week duration. She has a history of coronary artery disease with recent stent placement presently on aspirin and Plavix. At the time of admission she was complaining of persistent nausea, vomiting and vague abdominal discomfort. Today she states she is still feeling well, no abdominal pain, nausea, or vomiting. Objective - Vital Signs Vital signs: Vital Signs Temp 98.6 F 02/13/20 12:00 Pulse 82 02/13/20 12:22 Resp 32 H 02/13/20 12:00 BP 117/53 02/13/20 12:00 Pulse Ox 97 02/13/20 12:00 Intake & Output 02/12/20 02/13/20 02/13/20 18:59 06:59 18:59 Intake Total 998 680 03887 Output Total 215 1227 1180 Balance 783 -547 80110 Weight 112 kg 112 kg Intake: Intake, IV Titration 280 280 30835 Amount Magnesium Sulfate-D5w Pmx 200 1 gm In Dextrose/Water 1 100ml.bag @ 100 mls/hr IVPB Q1H [facility] Rx#: [id number] Sodium Chloride 3%( 80 280 28747 Hypertonic) 500 ml @ 25 mls/hr IV .Q20H [facility] Rx#: [id number] Oral 718 400 480 Output: Urine 215 1227 1180 Other: Voiding Method Indwelling Catheter Indwelling Catheter Indwelling Catheter - Exam General appearance: The patient is alert, oriented, in no acute distress. HET: Head is normocephalic and atraumatic. Conjunctiva pink. Sclera anicteric. Neck: Supple without lymphadenopathy. Trachea midline. Abdomen: Soft, obese, nontender, nondistended with bowel sounds. No guarding or rigidity. Extremities: Normal skin color and turgor. Bilateral lower extremity edema. Neurological: No focal deficits. Alert and oriented 3. - Labs CBC & Chem 7: 02/13/20 05:11 02/13/20 10:15 Labs: Abnormal Lab Results - Last 24 Hours (Table) 02/12/20 02/12/20 02/12/20 Range/Units 13:02 13:44 16:50 WBC (3.8-10.6) k/uL Hgb (11.4-16.0) gm/dL Hct (34.0-46.0) % MCV (80.0-100.0) fL MCH (25.0-35.0) pg MCHC (31.0-37.0) g/dL RDW (11.5-15.5) % Neutrophils # (1.3-7.7) k/uL Sodium 115 L* (137-145) mmol/L Chloride (98-107) mmol/L BUN (7-17) mg/dL Creatinine (0.52-1.04) mg/dL Glucose (74-99) mg/dL POC Glucose (mg/dL) 293 H (75-99) mg/dL Total Protein (6.3-8.2) g/dL Albumin (3.5-5.0) g/dL Urine Appearance Cloudy H (Clear) Urine Protein 2+ H (Negative) Urine Glucose (UA) 1+ H (Negative) Ur Squamous Epith Cells 5 H (0-4) /hpf Amorphous Sediment Moderate H (None) /hpf Urine Bacteria Rare H (None) /hpf Urine Mucus Rare H (None) /hpf 02/12/20 02/12/20 02/12/20 Range/Units 16:58 17:07 20:52 WBC (3.8-10.6) k/uL Hgb (11.4-16.0) gm/dL Hct (34.0-46.0) % MCV (80.0-100.0) fL MCH (25.0-35.0) pg MCHC (31.0-37.0) g/dL RDW (11.5-15.5) % Neutrophils # (1.3-7.7) k/uL Sodium 115 L* 115 L* (137-145) mmol/L Chloride (98-107) mmol/L BUN (7-17) mg/dL Creatinine (0.52-1.04) mg/dL Glucose (74-99) mg/dL POC Glucose (mg/dL) 200 H (75-99) mg/dL Total Protein (6.3-8.2) g/dL Albumin (3.5-5.0) g/dL Urine Appearance (Clear) Urine Protein (Negative) Urine Glucose (UA) (Negative) Ur Squamous Epith Cells (0-4) /hpf Amorphous Sediment (None) /hpf Urine Bacteria (None) /hpf Urine Mucus (None) /hpf 02/12/20 02/13/20 02/13/20 Range/Units 20:58 05:11 05:11 WBC 15.2 H (3.8-10.6) k/uL Hgb 10.0 L (11.4-16.0) gm/dL Hct 32.5 L (34.0-46.0) % MCV 66.7 L (80.0-100.0) fL MCH 20.6 L (25.0-35.0) pg MCHC 30.8 L (31.0-37.0) g/dL RDW 17.5 H (11.5-15.5) % Neutrophils # 10.4 H (1.3-7.7) k/uL Sodium 120 L (137-145) mmol/L Chloride 87 L (98-107) mmol/L BUN 21 H (7-17) mg/dL Creatinine 1.12 H (0.52-1.04) mg/dL Glucose 119 H (74-99) mg/dL POC Glucose (mg/dL) 169 H (75-99) mg/dL Total Protein 5.9 L (6.3-8.2) g/dL Albumin 3.2 L (3.5-5.0) g/dL Urine Appearance (Clear) Urine Protein (Negative) Urine Glucose (UA) (Negative) Ur Squamous Epith Cells (0-4) /hpf Amorphous Sediment (None) /hpf Urine Bacteria (None) /hpf Urine Mucus (None) /hpf 02/13/20 02/13/20 02/13/20 Range/Units 06:29 10:15 12:05 WBC (3.8-10.6) k/uL Hgb (11.4-16.0) gm/dL Hct (34.0-46.0) % MCV (80.0-100.0) fL MCH (25.0-35.0) pg MCHC (31.0-37.0) g/dL RDW (11.5-15.5) % Neutrophils # (1.3-7.7) k/uL Sodium 124 L (137-145) mmol/L Chloride (98-107) mmol/L BUN (7-17) mg/dL Creatinine (0.52-1.04) mg/dL Glucose (74-99) mg/dL POC Glucose (mg/dL) 137 H 191 H (75-99) mg/dL Total Protein (6.3-8.2) g/dL Albumin (3.5-5.0) g/dL Urine Appearance (Clear) Urine Protein (Negative) Urine Glucose (UA) (Negative) Ur Squamous Epith Cells (0-4) /hpf Amorphous Sediment (None) /hpf Urine Bacteria (None) /hpf Urine Mucus (None) /hpf Assessment and Plan Assessment: 1. Severe hyponatremia. The patient was transferred to the intensive care unit as being monitored closely. Nephrology has been consulted. 2. Nausea, vomiting, and abdominal pain currently has resolved. Patient pr esently on Protonix 40 mg daily as well as antiemetics as needed. Overall is feeling much better. Reglan and Zofran are ordered as needed. 3. History of chronic deep vein thrombosis. Presently on aspirin and Plavix, doing well. Hematology is on consult. 4. Chronic obstructive pulmonary disease on home O2. 5. Obstructive sleep apnea. Plan: 1. Continue with Protonix 40 mg daily 2. Antiemetics as needed 3. Reglan as needed 4. 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 No plans on any endoscopic intervention 6. We will follow with you closely Thank you for this consultation The impression and plan of care has been dictated as directed. Dr. Jamila Altman I performed a history and examination of this patient, discussed the same with the dictator. I agree with the dictator's note ,documented as a scribe. Any additional findings or plans will be noted.
--- NOTE | 2020-02-13 15:14 | P.PN ---
Subjective Progress Note Date: 02/13/20 Principal diagnosis: DVT of the right lower extremity in follow-up today patient is getting her breathing treatment, she states feeling significantly better than she did yesterday. She has no acute complaints. Objective - Vital Signs Vital signs: Vital Signs Temp 98.6 F 02/13/20 12:00 Pulse 57 L 02/13/20 13:00 Resp 11 L 02/13/20 13:00 BP 100/60 02/13/20 13:00 Pulse Ox 90 L 02/13/20 13:00 Intake & Output 02/12/20 02/13/20 02/13/20 18:59 06:59 18:59 Intake Total 998 680 895 Output Total 215 1227 1240 Balance 120 -973 -243 Weight 112 kg 112 kg Intake: Intake, IV Titration 280 280 175 Amount Magnesium Sulfate-D5w Pmx 200 1 gm In Dextrose/Water 1 100ml.bag @ 100 mls/hr IVPB Q1H [facility] Rx#: [id number] Sodium Chloride 3%( 80 280 175 Hypertonic) 500 ml @ 25 mls/hr IV .Q20H [facility] Rx#: [id number] Oral 718 400 720 Output: Urine 215 1227 1240 Other: Voiding Method Indwelling Catheter Indwelling Catheter Indwelling Catheter - Constitutional General appearance: Present: average body habitus, cooperative, no acute distress - EENT Eyes: Present: anicteric sclerae, EOMI ENT: Present: hearing grossly normal - Respiratory Details: respirations even and unlabored, patient is able to carry on a conversation without shortness of breath - Neurologic Neurologic: Present: CNII-XII intact - Musculoskeletal Musculoskeletal: Present: generalized weakness - Psychiatric Psychiatric: Present: A&O x's 3, appropriate affect, intact judgment & insight - Labs CBC & Chem 7: 02/13/20 05:11 02/13/20 10:15 Labs: Abnormal Lab Results - Last 24 Hours (Table) 02/12/20 02/12/20 02/12/20 Range/Units 16:50 16:58 17:07 WBC (3.8-10.6) k/uL Hgb (11.4-16.0) gm/dL Hct (34.0-46.0) % MCV (80.0-100.0) fL MCH (25.0-35.0) pg MCHC (31.0-37.0) g/dL RDW (11.5-15.5) % Neutrophils # (1.3-7.7) k/uL Sodium 115 L* (137-145) mmol/L Chloride (98-107) mmol/L BUN (7-17) mg/dL Creatinine (0.52-1.04) mg/dL Glucose (74-99) mg/dL POC Glucose (mg/dL) 200 H (75-99) mg/dL Total Protein (6.3-8.2) g/dL Albumin (3.5-5.0) g/dL Urine Appearance Cloudy H (Clear) Urine Protein 2+ H (Negative) Urine Glucose (UA) 1+ H (Negative) Ur Squamous Epith Cells 5 H (0-4) /hpf Amorphous Sediment Moderate H (None) /hpf Urine Bacteria Rare H (None) /hpf Urine Mucus Rare H (None) /hpf 02/12/20 02/12/20 02/13/20 Range/Units 20:52 20:58 05:11 WBC 15.2 H (3.8-10.6) k/uL Hgb 10.0 L (11.4-16.0) gm/dL Hct 32.5 L (34.0-46.0) % MCV 66.7 L (80.0-100.0) fL MCH 20.6 L (25.0-35.0) pg MCHC 30.8 L (31.0-37.0) g/dL RDW 17.5 H (11.5-15.5) % Neutrophils # 10.4 H (1.3-7.7) k/uL Sodium 115 L* (137-145) mmol/L Chloride (98-107) mmol/L BUN (7-17) mg/dL Creatinine (0.52-1.04) mg/dL Glucose (74-99) mg/dL POC Glucose (mg/dL) 169 H (75-99) mg/dL Total Protein (6.3-8.2) g/dL Albumin (3.5-5.0) g/dL Urine Appearance (Clear) Urine Protein (Negative) Urine Glucose (UA) (Negative) Ur Squamous Epith Cells (0-4) /hpf Amorphous Sediment (None) /hpf Urine Bacteria (None) /hpf Urine Mucus (None) /hpf 02/13/20 02/13/20 02/13/20 Range/Units 05:11 06:29 10:15 WBC (3.8-10.6) k/uL Hgb (11.4-16.0) gm/dL Hct (34.0-46.0) % MCV (80.0-100.0) fL MCH (25.0-35.0) pg MCHC (31.0-37.0) g/dL RDW (11.5-15.5) % Neutrophils # (1.3-7.7) k/uL Sodium 120 L 124 L (137-145) mmol/L Chloride 87 L (98-107) mmol/L BUN 21 H (7-17) mg/dL Creatinine 1.12 H (0.52-1.04) mg/dL Glucose 119 H (74-99) mg/dL POC Glucose (mg/dL) 137 H (75-99) mg/dL Total Protein 5.9 L (6.3-8.2) g/dL Albumin 3.2 L (3.5-5.0) g/dL Urine Appearance (Clear) Urine Protein (Negative) Urine Glucose (UA) (Negative) Ur Squamous Epith Cells (0-4) /hpf Amorphous Sediment (None) /hpf Urine Bacteria (None) /hpf Urine Mucus (None) /hpf 02/13/20 Range/Units 12:05 WBC (3.8-10.6) k/uL Hgb (11.4-16.0) gm/dL Hct (34.0-46.0) % MCV (80.0-100.0) fL MCH (25.0-35.0) pg MCHC (31.0-37.0) g/dL RDW (11.5-15.5) % Neutrophils # (1.3-7.7) k/uL Sodium (137-145) mmol/L Chloride (98-107) mmol/L BUN (7-17) mg/dL Creatinine (0.52-1.04) mg/dL Glucose (74-99) mg/dL POC Glucose (mg/dL) 191 H (75-99) mg/dL Total Protein (6.3-8.2) g/dL Albumin (3.5-5.0) g/dL Urine Appearance (Clear) Urine Protein (Negative) Urine Glucose (UA) (Negative) Ur Squamous Epith Cells (0-4) /hpf Amorphous Sediment (None) /hpf Urine Bacteria (None) /hpf Urine Mucus (None) /hpf - Imaging and Cardiology Venous US: report reviewed (report from 07/03/13, compared to most recent Doppler dated 02/09/20) Assessment and Plan (1) Deep vein thrombosis, lower right extremity Narrative/Plan: Review of the Doppler is most suggestive of a chronic DVT. Patient is currently on aspirin and Plavix for a recent cardiac stent placement. Venous thrombosis is typically treated with anticoagulants versus antiplatelet therapies. Patient's risk factors include frequent hospitalizations, inflammation due to chronic wounds, likely a degree of peripheral vascular disease secondary to cardiovascular disease and diabetes. Patient risk for bleeding though with both anticoagulation and antiplatelet therapy is significant. PE has been ruled out with CTA of chest, bilateral lower extremity Dopplers to not discuss any acute component to the clot. Found venous duplex report for both lower extremities dated 07/03/13. Report reads: Deep venous system of both legs was interrogated from the external iliac vein to the proximal calf veins demonstrating good flow, augmentation and c ompressibility on the left. The deep femoral vein on the right, there is a non- occluding thrombus. Age of this is indeterminate. The current doppler and the previous doppler results described are similar, less likely acute, more likely chronic. Risks versus benefit recommendation is for patient to remain on her aspirin and Plavix, no additional anticoagulation at this time. Current Visit: Yes Status: Chronic Priority: High Code(s): I82.401 - ACUTE EMBOLISM AND THOMBOS UNSP DEEP VEINS OF R LOW EXTREM SNOMED Code(s): 965519841
[2020-02-13 17:12] LABS: Glucose,Whole Blood 231 mg/dL (75-99)
--- NOTE | 2020-02-13 17:51 | P.PN ---
Subjective Progress Note Date: 02/13/20 Principal diagnosis: Hypotension bradycardia and likely associated with beta yoselyn patient is being slowly rehydrated being observe closely Leukocytosis I early sepsis, will do urine and blood culture Chronic DVT of the lower extremity anticoagulation for DVT prophylaxis Severe hypernatremia End-stage severe COPD Chronic hypoxic respiratory failure Obstructive sleep apnea Restless leg syndrome Microcytic anemia 02/13/2020, patient seen eval examined in in intensive care unit during the rounds labs reviewed medications reviewed, patient is sitting upright on the c hair breathing comfortably, denies any chest pain, hemodynamics have significantly improved, she can be moved out of the ICU This is a 74-year-old morbidly obese female came into the hospital with diffuse nonspecific complaints involving the chest discomfort abdominal pain, she underwent a computed tomography scan of the chest negative for pulmonary embolism, patient has a recent history of cardiac cath angiogram and stent placement has been on aspirin and Plavix, she has chronic DVT of the lower extremities, her past medical history significant for a COPD has been on home oxygen 3 L she also has a sleep apnea has been on CPAP other active problem" I artery disease is diabetes hypertension and dyslipidemia, patient was in fact slightly hypertensive this morning receive beta yoselyn since then her drop in blood pressure has been noted her systolic blood pressure ranges around 80s heart rate went down to 40s, patient transferred to the ICU however she is awake and alert no signs diaphoresis, she has been found to have a sodium of 1:15 does have a history of chronic hyponatremia into 130s, patient is to be given 3% saline as per renal service, her antihypertensive agents are being held, patient remains on broad-spectrum antibiotics for suspected sepsis of unclear etiology, her magnesium is found to be on a 1.3, along with an microcytic anemia, Objective - Vital Signs Vital signs: Vital Signs Temp 98.6 F 02/13/20 12:00 Pulse 55 L 02/13/20 17:00 Resp 21 02/13/20 17:00 BP 102/50 02/13/20 17:00 Pulse Ox 99 02/13/20 17:00 Intake & Output 02/12/20 02/13/20 02/13/20 18:59 06:59 18:59 Intake Total 999 680 895 Output Total 234 9575 1285 Balance 771 -54 -791 Weight 112 kg 112 kg Intake: Intake, IV Titration 280 280 175 Amount Magnesium Sulfate-D5w Pmx 200 1 gm In Dextrose/Water 1 100ml.bag @ 100 mls/hr IVPB Q1H [facility] Rx#: [id number] Sodium Chloride 3%( 80 280 175 Hypertonic) 500 ml @ 25 mls/hr IV .Q20H [facility] Rx#: [id number] Oral 718 400 720 Output: Urine 215 1227 1285 Other: Voiding Method Indwelling Catheter Indwelling Catheter Indwelling Catheter - Exam - Constitutional General appearance: cooperative, no acute distress, obese - EENT Eyes: anicteric sclerae, EOMI ENT: hearing grossly normal, normal oropharynx - Neck Neck: no lymphadenopathy - Respiratory Respiratory: bilateral: diminished - Cardiovascular Heart sounds: normal: S1, S2 leg Peripheral Edema: bilateral: Trace - Gastrointestinal General gastrointestinal: normal bowel sounds, soft - Neurologic Neurologic: CNII-XII intact - Musculoskeletal Musculoskeletal: generalized weakness - Psychiatric Psychiatric: A&O x's 3, appropriate affect, intact judgment & insight - Labs CBC & Chem 7: 02/13/20 05:11 02/13/20 10:15 Labs: Abnormal Lab Results - Last 24 Hours (Table) 02/12/20 02/12/20 02/12/20 Range/Units 16:50 20:52 20:58 WBC (3.8-10.6) k/uL Hgb (11.4-16.0) gm/dL Hct (34.0-46.0) % MCV (80.0-100.0) fL MCH (25.0-35.0) pg MCHC (31.0-37.0) g/dL RDW (11.5-15.5) % Neutrophils # (1.3-7.7) k/uL Sodium 115 L* (137-145) mmol/L Chloride (98-107) mmol/L BUN (7-17) mg/dL Creatinine (0.52-1.04) mg/dL Glucose (74-99) mg/dL POC Glucose (mg/dL) 169 H (75-99) mg/dL Total Protein (6.3-8.2) g/dL Albumin (3.5-5.0) g/dL Urine Appearance Cloudy H (Clear) Urine Protein 2+ H (Negative) Urine Glucose (UA) 1+ H (Negative) Ur Squamous Epith Cells 5 H (0-4) /hpf Amorphous Sediment Moderate H (None) /hpf Urine Bacteria Rare H (None) /hpf Urine Mucus Rare H (None) /hpf 02/13/20 02/13/20 02/13/20 Range/Units 05:11 05:11 06:29 WBC 15.2 H (3.8-10.6) k/uL Hgb 10.0 L (11.4-16.0) gm/dL Hct 32.5 L (34.0-46.0) % MCV 66.7 L (80.0-100.0) fL MCH 20.6 L (25.0-35.0) pg MCHC 30.8 L (31.0-37.0) g/dL RDW 17.5 H (11.5-15.5) % Neutrophils # 10.4 H (1.3-7.7) k/uL Sodium 120 L (137-145) mmol/L Chloride 87 L (98-107) mmol/L BUN 21 H (7-17) mg/dL Creatinine 1.12 H (0.52-1.04) mg/dL Glucose 119 H (74-99) mg/dL POC Glucose (mg/dL) 137 H (75-99) mg/dL Total Protein 5.9 L (6.3-8.2) g/dL Albumin 3.2 L (3.5-5.0) g/dL Urine Appearance (Clear) Urine Protein (Negative) Urine Glucose (UA) (Negative) Ur Squamous Epith Cells (0-4) /hpf Amorphous Sediment (None) /hpf Urine Bacteria (None) /hpf Urine Mucus (None) /hpf 02/13/20 02/13/20 02/13/20 Range/Units 10:15 12:05 17:11 WBC (3.8-10.6) k/uL Hgb (11.4-16.0) gm/dL Hct (34.0-46.0) % MCV (80.0-100.0) fL MCH (25.0-35.0) pg MCHC (31.0-37.0) g/dL RDW (11.5-15.5) % Neutrophils # (1.3-7.7) k/uL Sodium 124 L (137-145) mmol/L Chloride (98-107) mmol/L BUN (7-17) mg/dL Creatinine (0.52-1.04) mg/dL Glucose (74-99) mg/dL POC Glucose (mg/dL) 191 H 231 H (75-99) mg/dL Total Protein (6.3-8.2) g/dL Albumin (3.5-5.0) g/dL Urine Appearance (Clear) Urine Protein (Negative) Urine Glucose (UA) (Negative) Ur Squamous Epith Cells (0-4) /hpf Amorphous Sediment (None) /hpf Urine Bacteria (None) /hpf Urine Mucus (None) /hpf Assessment and Plan Assessment: Hypotension bradycardia and likely associated with beta yoselyn patient is being slowly rehydrated being observe closely, hemodynamics including both hypotension bradycardia resolving Leukocytosis I early sepsis, will do urine and blood culture, results are pending today Chronic DVT of the lower extremity anticoagulation for DVT prophylaxis Severe hypernatremia End-stage severe COPD Chronic hypoxic respiratory failure Obstructive sleep apnea Restless leg syndrome Microcytic anemia Plan: Gently hydrate the patient Monitor sodium very closely not to improve more than 12 mEq per 24 hours Follow-up urine and blood culture From critical care standpoint she can be moved out of the ICU Further recommendations pending plan of care as per clinical response of the patient Time with Patient: Greater than 30
[2020-02-13] MEDS: ATORVASTATIN 80 MG TAB PO SCH (20:38)
[2020-02-13] MEDS: MONTELUKAST 10 MG TAB PO SCH (20:38)
[2020-02-13 20:47] LABS: Glucose,Whole Blood 220 mg/dL (75-99)
[2020-02-13 21:51] LABS: Hemoglobin A1C 6.9 % (4.0-6.0)
[2020-02-14] MEDS: HEPARIN SODIUM,PORCINE 5,000 UNIT/ML 1 ML VIAL SQ SCH ×3 (04:13→21:05)
[2020-02-14] MEDS: HYDROcodone/APAP 7.5-325MG 1 EACH TAB PO PRN ×3 (04:13→21:11)
[2020-02-14 04:22] LABS: Anisocytosis Slight; Basophils % (A) 0 %; Eosinophils # (A) 0.1 k/uL (0-0.7); Eosinophils % (A) 1 %; HCT 33.3 % (34.0-46.0); HGB 10.1 gm/dL (11.4-16.0); Hypochromasia Marked; Lymphocytes # (A) 2.1 k/uL (1.0-4.8); Lymphocytes % (A) 16 %; MCH 20.6 pg (25.0-35.0); MCHC 30.2 g/dL (31.0-37.0); MCV 68.1 fL (80.0-100.0); Mean Platelet Volume 6.9; Microcytosis Marked; Monocytes # (A) 0.7 k/uL (0-1.0); Monocytes % (A) 5 %; Neutrophils # (A) 9.9 k/uL (1.3-7.7); Neutrophils % (A) 76 %; Platelet Count 289 k/uL (150-450); RBC 4.89 m/uL (3.80-5.40); RDW 18.3 % (11.5-15.5)
[2020-02-14 04:36] LABS: Calcium 9.2 mg/dL (8.4-10.2); Potassium 5.5 mmol/L (3.5-5.1)
[2020-02-14 06:35] LABS: Glucose,Whole Blood 242 mg/dL (75-99)
[2020-02-14] MEDS: INSULIN ASPART (NovoLOG) 100 UNIT/ML VIAL SQ SCH ×4 (06:37→21:05)
--- NOTE | 2020-02-14 07:10 | PN ---
PROGRESS NOTE FOLLOWUP: Hyponatremia. She is euvolemic at this time. Blood pressure is decreased down. She was started on 3% saline transfer to the ICU. Blood pressure is improved. Sodium dropped to 125. Urine output has dropped yesterday. Blood pressure is low, picked up now with the saline, says 120. Denies any significant complaints. Sitting up in bed, eating. Urine osmolality elevated at 43. Possible SIADH. Cortisol was 12, on the lower side. Currently eating. She does not have a history of increased water intake. Blood pressure is 140s over 70s now. Heart rate 70s, afebrile. CARDIAC: S1, S2. Lungs decreased breath sounds. Abdomen is soft, distended. Extremities show significant wounds over the dorsum of bilateral great toes. Sodium 120, potassium 4.1, CO2 27, BUN 21, creatinine 1.12, hemoglobin is 10. ASSESSMENT: Hyponatremia which worsened with saline administration on initial admission, but elevated urine osmolality, possible SIADH. Blood pressure is now normal. Continues on 3% sodium. Sat is 120 down from 115. Maintain off diuretics complete. Renal physician is going to do another normal saline challenge if sodium does not go up higher. Nausea, vomiting improved. Acute kidney injury secondary to hypotension. Blood pressure is improved. Continue with 3% sodium. Saline for now. Repeat sodium. Maintained off thiazide diuretics. Discontinue the Zestril. Will hold off on all antihypertensive medication. Blood pressure is low. PROGNOSIS: Guarded. ICU time 30 minutes. MMODL / IJN: [id number] /
[2020-02-14] MEDS: IPRATROPIUM 0.5 MG/2.5 ML NEBU INHALATION SCH ×4 (07:50→20:09)
[2020-02-14] MEDS: FORMOTEROL FUMARATE 20 MCG/2 ML NEBU INHALATION SCH ×2 (07:51→20:08)
[2020-02-14] MEDS: ASPIRIN 81 MG PO SCH (08:13)
[2020-02-14] MEDS: PANTOPRAZOLE 40 MG/10 ML VIAL IVP SCH ×2 (08:13→21:06)
[2020-02-14] MEDS: METOPROLOL TARTRATE 50 MG TAB PO SCH (08:13)
[2020-02-14] MEDS: MAGNESIUM OXIDE 400 MG TAB PO SCH (08:13)
[2020-02-14] MEDS: SYMBICORT 80-4.5 MCG INHALER INHALATION SCH ×2 (08:14→20:08)
[2020-02-14] MEDS: CIPROFLOXACIN HCL 500 MG TAB PO SCH (08:14)
[2020-02-14] MEDS: FERROUS SULFATE 325 MG TAB PO SCH (08:14)
[2020-02-14] MEDS: rOPINIRole HCL 4 MG TABLET PO SCH ×3 (08:14→21:13)
[2020-02-14] MEDS: SPIRONOLACTONE 25 MG TAB PO SCH (08:14)
[2020-02-14] MEDS: CHOLECALCIFEROL 1,000 UNIT TAB PO SCH (08:14)
[2020-02-14] MEDS: polyethylene glycoL 3350 17 GM POWD.PACK PO SCH (08:14)
[2020-02-14] MEDS: ISOSORBIDE MONONITRATE ER 60 MG TAB.ER.24H PO SCH (08:14)
[2020-02-14] MEDS: CLOPIDOGREL 75 MG TAB PO SCH (08:14)
[2020-02-14] MEDS: RANOLAZINE 500 MG TAB.ER.12H PO SCH ×2 (08:15→21:12)
[2020-02-14] MEDS: DICYCLOMINE 10 MG CAP PO SCH (08:15)
[2020-02-14] MEDS: hydrALAZINE HCL 25 MG TAB PO SCH (08:15)
[2020-02-14] MEDS: METOCLOPRAMIDE 10 MG TAB PO SCH ×4 (08:15→21:12)
--- NOTE | 2020-02-14 09:48 | P.PN ---
Subjective Progress Note Date: 02/14/20 Principal diagnosis: Hypotension bradycardia and likely associated with beta yoselyn patient is being slowly rehydrated being observe closely Leukocytosis I early sepsis, will do urine and blood culture Chronic DVT of the lower extremity anticoagulation for DVT prophylaxis Severe hypernatremia End-stage severe COPD Chronic hypoxic respiratory failure Obstructive sleep apnea Restless leg syndrome Microcytic anemia 02/14/2020, patient seen eval examined during the rounds labs reviewed medications reviewed restrictive status continued to improved now, oxygen saturation 96% on 2 L remains afebrile, white cell count improving, sodium however remains on the low side 124, blood culture so far no growth, urine culture results are pending renal functions slightly elevated but overall stable patient can moved of out from the ICU from pulmonary standpoint 02/13/2020, patient seen eval examined in in intensive care unit during the rounds labs reviewed medications reviewed, patient is sitting upright on the chair breathing comfortably, denies any chest pain, hemodynamics have significantly improved, she can be moved out of the ICU This is a 74-year-old morbidly obese female came into the hospital with diffuse nonspecific complaints involving the chest discomfort abdominal pain, she underwent a computed tomography scan of the chest negative for pulmonary emboli sm, patient has a recent history of cardiac cath angiogram and stent placement has been on aspirin and Plavix, she has chronic DVT of the lower extremities, her past medical history significant for a COPD has been on home oxygen 3 L she also has a sleep apnea has been on CPAP other active problem" I artery disease is diabetes hypertension and dyslipidemia, patient was in fact slightly hypertensive this morning receive beta yoselyn since then her drop in blood pressure has been noted her systolic blood pressure ranges around 80s heart rate went down to 40s, patient transferred to the ICU however she is awake and alert no signs diaphoresis, she has been found to have a sodium of 1:15 does have a history of chronic hyponatremia into 130s, patient is to be given 3% saline as per renal service, her antihypertensive agents are being held, patient remains on broad-spectrum antibiotics for suspected sepsis of unclear etiology, her magnesium is found to be on a 1.3, along with an microcytic anemia, Objective - Vital Signs Vital signs: Vital Signs Temp 98.1 F 02/14/20 04:00 Pulse 58 L 02/14/20 08:13 Resp 23 02/14/20 07:00 BP 148/54 02/14/20 04:00 Pulse Ox 96 02/14/20 07:00 Intake & Output 02/13/20 02/14/20 02/14/20 18:59 06:59 18:59 Intake Total 1135 440 120 Output Total 1380 870 50 Balance -245 -430 70 Weight 112 kg 111.7 kg Intake: Intake, IV Titration 175 Amount Sodium Chloride 3%( 175 Hypertonic) 500 ml @ 25 mls/hr IV .Q20H [facility] Rx#: [id number] Oral 960 440 120 Output: Urine 1380 870 50 Other: Voiding Method Indwelling Catheter Indwelling Catheter - Exam - Constitutional General appearance: cooperative, no acute distress, obese - EENT Eyes: anicteric sclerae, EOMI ENT: hearing grossly normal, normal oropharynx - Neck Neck: no lymphadenopathy - Respiratory Respiratory: bilateral: diminished - Cardiovascular Heart sounds: normal: S1, S2 leg Peripheral Edema: bilateral: Trace - Gastrointestinal General gastrointestinal: normal bowel sounds, soft - Neurologic Neurologic: CNII-XII intact - Musculoskeletal Musculoskeletal: generalized weakness - Psychiatric Psychiatric: A&O x's 3, appropriate affect, intact judgment & insight - Labs CBC & Chem 7: 02/14/20 03:31 02/14/20 03:27 Labs: Abnormal Lab Results - Last 24 Hours (Table) 02/13/20 02/13/20 02/13/20 Range/Units 05:11 10:15 12:05 WBC (3.8-10.6) k/uL Hgb (11.4-16.0) gm/dL Hct (34.0-46.0) % MCV (80.0-100.0) fL MCH (25.0-35.0) pg MCHC (31.0-37.0) g/dL RDW (11.5-15.5) % Neutrophils # (1.3-7.7) k/uL Sodium 124 L (137-145) mmol/L Potassium (3.5-5.1) mmol/L Chloride (98-107) mmol/L BUN (7-17) mg/dL Creatinine (0.52-1.04) mg/dL Glucose (74-99) mg/dL POC Glucose (mg/dL) 191 H (75-99) mg/dL Hemoglobin A1c 6.9 H (4.0-6.0) % 02/13/20 02/13/20 02/13/20 Range/Units 17:11 17:29 20:45 WBC (3.8-10.6) k/uL Hgb (11.4-16.0) gm/dL Hct (34.0-46.0) % MCV (80.0-100.0) fL MCH (25.0-35.0) pg MCHC (31.0-37.0) g/dL RDW (11.5-15.5) % Neutrophils # (1.3-7.7) k/uL Sodium 123 L (137-145) mmol/L Potassium (3.5-5.1) mmol/L Chloride (98-107) mmol/L BUN (7-17) mg/dL Creatinine (0.52-1.04) mg/dL Glucose (74-99) mg/dL POC Glucose (mg/dL) 231 H 220 H (75-99) mg/dL Hemoglobin A1c (4.0-6.0) % 02/13/20 02/14/20 02/14/20 Range/Units 22:41 03:27 03:31 WBC 13.0 H (3.8-10.6) k/uL Hgb 10.1 L (11.4-16.0) gm/dL Hct 33.3 L (34.0-46.0) % MCV 68.1 L (80.0-100.0) fL MCH 20.6 L (25.0-35.0) pg MCHC 30.2 L (31.0-37.0) g/dL RDW 18.3 H (11.5-15.5) % Neutrophils # 9.9 H (1.3-7.7) k/uL Sodium 125 L 124 L (137-145) mmol/L Potassium 5.5 H (3.5-5.1) mmol/L Chloride 94 L (98-107) mmol/L BUN 27 H (7-17) mg/dL Creatinine 1.08 H (0.52-1.04) mg/dL Glucose 213 H (74-99) mg/dL POC Glucose (mg/dL) (75-99) mg/dL Hemoglobin A1c (4.0-6.0) % 02/14/20 Range/Units 06:34 WBC (3.8-10.6) k/uL Hgb (11.4-16.0) gm/dL Hct (34.0-46.0) % MCV (80.0-100.0) fL MCH (25.0-35.0) pg MCHC (31.0-37.0) g/dL RDW (11.5-15.5) % Neutrophils # (1.3-7.7) k/uL Sodium (137-145) mmol/L Potassium (3.5-5.1) mmol/L Chloride (98-107) mmol/L BUN (7-17) mg/dL Creatinine (0.52-1.04) mg/dL Glucose (74-99) mg/dL POC Glucose (mg/dL) 242 H (75-99) mg/dL Hemoglobin A1c (4.0-6.0) % Microbiology - Last 24 Hours (Table) 02/12/20 16:58 Blood Culture - Preliminary Blood No Growth after 24 hours Assessment and Plan Assessment: Hypotension bradycardia and likely associated with beta yoselyn patient is being slowly rehydrated being observe closely, hemodynamics including both hypotension bradycardia resolving Leukocytosis I early sepsis, will do urine and blood culture, results are pending today Chronic DVT of the lower extremity anticoagulation for DVT prophylaxis Severe hypernatremia End-stage severe COPD Chronic hypoxic respiratory failure Obstructive sleep apnea Restless leg syndrome Microcytic anemia Plan: Gently hydrate the patient Monitor sodium very closely Follow-up urine and blood culture From critical care standpoint she can be moved out of the ICU Further recommendations pending plan of care as per clinical response of the patient Time with Patient: Greater than 30
[2020-02-14] MEDS ORDERED: COSYNTROPIN 0.25 MG VIAL IVP ONE (11:20)
[2020-02-14 12:10] LABS: Glucose,Whole Blood 200 mg/dL (75-99)
--- NOTE | 2020-02-14 12:46 | PN ---
PROGRESS NOTE Mr. Brand is a 74-year-old female with a history of coronary artery disease, history of percutaneous revascularization. She was transferred to the ICU because of hyponatremia, has been treated. She is feeling better overall. She has some discomfort is positional. Her breathing is stable. She denies any dizziness or palpitation. She denies any nausea or vomiting. She is sitting up in the chair and continues to be in sinus mechanism. She continues to be at this time on aspirin once a day, Lipitor 80 mg daily, Plavix 75 mg daily, hydralazine 25 mg twice a day, isosorbide mononitrate 60 mg daily, metoprolol tartrate 100 mg twice a day, and Ranexa 500 mg twice a day, spironolactone 25 mg daily. Patient had episode of sinus bradycardia. PHYSICAL EXAMINATION: Today revealed a heart rate in the 50s with a blood pressure 148/50. LUNGS: Clear. HEART: Regular rate and rhythm, S1, S2. No S3. No rub. ABDOMEN: Soft, nontender. EXTREMITIES: No significant edema. LAB DATA: Revealed a sodium 124, potassium 5.5. Her BUN and creatinine 27 and 1.8, hemoglobin of 10.1. IMPRESSION: 1. Hyponatremia, stabilizing. 2. History of coronary artery disease. 3. Hypertension. 4. Bradycardia related to the beta yoselyn. 5. Abnormal renal functions. 6. Abdominal discomfort. RECOMMENDATION: From the cardiac standpoint, I will cut down the dose of her beta yoselyn, continue the rest of her medical regimen. She should be able to be transferred to telemetry floor and increase her activity. If she remains stable, I am hopeful she will be able to be discharged home soon. MMODL / IJN: [id number] /
[2020-02-14] MEDS: SODIUM CHLORIDE TAB 1 GM TAB PO SCH ×2 (12:49→21:06)
--- NOTE | 2020-02-14 12:52 | P.PN ---
Subjective Progress Note Date: 02/14/20 Principal diagnosis: Nausea, vomiting This is a pleasant 74-year-old white female who is admitted to the hospital because of chest discomfort, abdominal discomfort, nausea, vomiting for the last 1 week duration. She has a history of coronary artery disease with recent stent placement presently on aspirin and Plavix. At the time of admission she was complaining of persistent nausea, vomiting and vague abdominal discomfort. Today she states she is still feeling well, no abdominal pain, nausea, or vomiting. Objective - Vital Signs Vital signs: Vital Signs Temp 98.2 F 02/14/20 09:00 Pulse 54 L 02/14/20 12:00 Resp 31 H 02/14/20 12:00 BP 136/63 02/14/20 10:00 Pulse Ox 93 L 02/14/20 12:00 Intake & Output 02/13/20 02/14/20 02/14/20 18:59 06:59 18:59 Intake Total 1135 440 600 Output Total 1380 870 400 Balance -245 -430 200 Weight 112 kg 111.7 kg Intake: Intake, IV Titration 175 Amount Sodium Chloride 3%( 175 Hypertonic) 500 ml @ 25 mls/hr IV .Q20H [facility] Rx#: [id number] Oral 960 440 600 Output: Urine 1380 870 400 Other: Voiding Method Indwelling Catheter Indwelling Catheter Indwelling Catheter - Exam General appearance: The patient is alert, oriented, in no acute distress. HET: Head is normocephalic and atraumatic. Conjunctiva pink. Sclera anicteric. Neck: Supple without lymphadenopathy. Trachea midline. Abdomen: Soft, obese, nontender, nondistended with bowel sounds. No guarding or rigidity. Extremities: Normal skin color and turgor. Bilateral lower extremity edema. Neurological: No focal deficits. Alert and oriented 3. - Labs CBC & Chem 7: 02/14/20 03:31 02/14/20 03:27 Labs: Abnormal Lab Results - Last 24 Hours (Table) 02/13/20 02/13/20 02/13/20 Range/Units 05:11 17:11 17:29 WBC (3.8-10.6) k/uL Hgb (11.4-16.0) gm/dL Hct (34.0-46.0) % MCV (80.0-100.0) fL MCH (25.0-35.0) pg MCHC (31.0-37.0) g/dL RDW (11.5-15.5) % Neutrophils # (1.3-7.7) k/uL Sodium 123 L (137-145) mmol/L Potassium (3.5-5.1) mmol/L Chloride (98-107) mmol/L BUN (7-17) mg/dL Creatinine (0.52-1.04) mg/dL Glucose (74-99) mg/dL POC Glucose (mg/dL) 231 H (75-99) mg/dL Hemoglobin A1c 6.9 H (4.0-6.0) % 02/13/20 02/13/20 02/14/20 Range/Units 20:45 22:41 03:27 WBC (3.8-10.6) k/uL Hgb (11.4-16.0) gm/dL Hct (34.0-46.0) % MCV (80.0-100.0) fL MCH (25.0-35.0) pg MCHC (31.0-37.0) g/dL RDW (11.5-15.5) % Neutrophils # (1.3-7.7) k/uL Sodium 125 L 124 L (137-145) mmol/L Potassium 5.5 H (3.5-5.1) mmol/L Chloride 94 L (98-107) mmol/L BUN 27 H (7-17) mg/dL Creatinine 1.08 H (0.52-1.04) mg/dL Glucose 213 H (74-99) mg/dL POC Glucose (mg/dL) 220 H (75-99) mg/dL Hemoglobin A1c (4.0-6.0) % 02/14/20 02/14/20 02/14/20 Range/Units 03:31 06:34 12:08 WBC 13.0 H (3.8-10.6) k/uL Hgb 10.1 L (11.4-16.0) gm/dL Hct 33.3 L (34.0-46.0) % MCV 68.1 L (80.0-100.0) fL MCH 20.6 L (25.0-35.0) pg MCHC 30.2 L (31.0-37.0) g/dL RDW 18.3 H (11.5-15.5) % Neutrophils # 9.9 H (1.3-7.7) k/uL Sodium (137-145) mmol/L Potassium (3.5-5.1) mmol/L Chloride (98-107) mmol/L BUN (7-17) mg/dL Creatinine (0.52-1.04) mg/dL Glucose (74-99) mg/dL POC Glucose (mg/dL) 242 H 200 H (75-99) mg/dL Hemoglobin A1c (4.0-6.0) % Microbiology - Last 24 Hours (Table) 02/12/20 16:58 Blood Culture - Preliminary Blood No Growth after 24 hours Assessment and Plan Assessment: 1. Severe hyponatremia. The patient was transferred to the intensive care unit as being monitored closely. Nephrology has been consulted. 2. Nausea, vomiting, and abdominal pain currently has resolved. Patient presently on Protonix 40 mg daily as well as antiemetics as needed. Overall is feeling much better. Reglan and Zofran are ordered as needed. 3. History of chronic deep vein thrombosis. Presently on aspirin and Plavix, doing well. Hematology is on consult. 4. Chronic obstructive pulmonary disease on home O2. 5. Obstructive sleep apnea. Plan: 1. Continue with Protonix 40 mg daily 2. Antiemetics as needed 3. Reglan as needed 4. Monitor in the ICU and management of hyponatremia as per an tilting head band sawyer 5. No plans on any endoscopic intervention 6. We will sign off at this time, please do not hesitate to contact us for any further concerns Thank you for this consultation The impression and plan of care has been dictated as directed. Dr. Jamila Altman I performed a history and examination of this patient, discussed the same with the dictator. I agree with the dictator's note ,documented as a scribe. Any additional findings or plans will be noted.
--- NOTE | 2020-02-14 14:08 | P.CONS ---
History of Present Illness - Reason for Consult Consult date: 02/13/20 sepsis Requesting physician: Medardo Grande - Chief Complaint chest pain x 1 day , non healing wounds feet x months - History of Present Illness Patient is 74-year female with a past medical history significant for bilateral hand diabetic foot ulcer on the plantar aspect with recent admission at [facility] with cellulitis and concern for possible osteomyelitis culture positive for Citrobacter bone scan came back negative for osteomyelitis patient was advised Cipro local wound care with Aquacel silver dressing patient now presenting back to [facility] ER on February 09, 2020 for evaluation of chest pain describing to be more of a pressure-like with associated shortness of breath and diaphoresis no cough or sputum production patient on arrival to the ER was afebrile and no fever has been recorded since admission patient did have elevated white was 16.3 troponins were negative patient did have a CT of the chest which was negative for PE did shows no consolidation patient also have a CT of abdominal pelvis completed on the which did show sigmoid diverticulosis without diverticulitis no signs of acute abdominal pelvis patient be continued on oral Cipro infectious disease was consulted last night with concern for possible sepsis, patient currently denies having any pain to bilateral foot area, no swelling or redness around the wound or any foul-smelling drainage Review of Systems Positive point has been mentioned in the HPI rest of the systems are negative Past Medical History Past Medical History: Asthma, Coronary Artery Disease (CAD), Heart Failure, COPD, Diabetes Mellitus, Deep Vein Thrombosis (DVT), GERD/Reflux, Hyperlipidemia, Hypertension, Myocardial Infarction (WI), Osteoarthritis (OA), Pneumonia, Renal Disease, Skin Disorder, Sleep Apnea/CPAP/BIPAP Additional Past Medical History / Comment(s): Pt states just admitted to [facility] as a direct admit for bilateral foot sores/infection and they determined she did n ot have osteomyelitis. 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 with cardiogenic shock/pulmonary edema/respiratory failure, cardiomyopathy, NIDDM type II, neuropathy bilateral feet, bilateral diabetic foot ulcers, past cellulitis, pneumonias, past R lung pne with empyema/surgery, gastritis, colitis/frequent diarrhea, benign colon polyps, renal disease stage III, IRA with no device used d/t severe clausterphobia, home oxygen at 2L/NC at HS, occasional lower leg edema, RLS, Last Myocardial Infarction Date:: 2019 History of Any Multi-Drug Resistant Organisms: None Reported Past Surgical History: Appendectomy, Breast Surgery, Cholecystectomy, Heart Catheterization, Heart Catheterization With Stent Additional Past Surgical History / Comment(s): PCI with stents, R lung thoracotomy/decortication for empyema, bilateral feet/sores debrided, L breast benign bx, colonoscopy/benign polypectomy, EGD Past Anesthesia/Blood Transfusion Reactions: No Reported Reaction Additional Past Anesthesia/Blood Transfusion Reaction / Comm: severe claustrophobia Date of Last Stent Placement:: 11/27/19 Past Psychological History: No Psychological Hx Reported Additional Psychological History / Comment(s): Severe claustrophobia. Pt resides alone in her home. She has 14 stair steps to get up to her bathroom/bedroom. She is established with [facility]- a nurse for wound care and PT and has Dr. Kebede for home wound care. Smoking Status: Former smoker Past Alcohol Use History: None Reported Additional Past Alcohol Use History / Comment(s): STARTED SMOKING AGE 18 (1963) AND QUIT 1994. SMOKED 1 PPD. STATES SHE IS AN ALCOHOLIC AND QUIT DRINKING over 30 yrs ago Past Drug Use History: None Reported - Past Family History Brother(s) Family Medical History: Cancer Additional Family Medical History / Comment(s): Colon cancer Father Family Medical History: Chest Pain / Angina Additional Family Medical History / Comment(s): Father of a WI at the age of 77yrs. Mother Family Medical History: Chest Pain / Angina Additional Family Medical History / Comment(s): Mother of a WI at the age of 74yrs. Medications and Allergies Home Medications Medication Instructions Recorded Confirmed Type Cholecalciferol [Vitamin D3 (25 1,000 unit PO DAILY 02/26/15 02/09/20 History Mcg = 1000 Iu)] Clopidogrel [Plavix] 75 mg PO DAILY 09/05/15 02/09/20 History Montelukast Sodium [Singulair] 10 mg PO HS #30 tab 10/25/15 02/09/20 Rx Nitroglycerin Sl Tabs [Nitrostat] 0.4 mg SUBLINGUAL Q5M PRN #0 tab 09/24/16 02/09/20 Rx [place]-3 Fatty Acids [[place]-3] 2,000 mg PO DAILY 09/29/18 02/09/20 History Isosorbide Mononitrate ER [Imdur] 60 mg PO DAILY #30 tab.er.24h 11/17/18 02/09/20 Rx Dicyclomine [Bentyl] 10 mg PO DAILY 04/16/19 02/09/20 History Acetaminophen Tab [Tylenol] 500 mg PO Q6HR PRN tab 06/23/19 02/09/20 Rx Fluticasone/Umeclidin/Vilanter 1 puff INHALATION RT-DAILY 07/07/19 02/09/20 History [Trelegy Ellipta 100-62.5-25] Dulaglutide [Trulicity] 1.5 mg SQ KISER 08/15/19 02/09/20 History Furosemide [Lasix] 40 mg PO BID 08/15/19 02/09/20 History Insulin Aspart Protam & Aspart 30 unit SQ BID 08/15/19 02/09/20 History [NovoLOG MIX 70-30 Flexpen] Metoclopramide [Reglan] 10 mg PO QID PRN 08/15/19 02/09/20 History HYDROcodone/APAP 7.5-325MG [[place] 1 tab PO Q6H PRN #12 tab 09/04/19 02/09/20 Rx 7.5-325] Magnesium Oxide 400 mg PO DAILY 11/02/19 02/09/20 History rOPINIRole HCL [Requip] 4 mg PO TID 11/02/19 02/09/20 History Omeprazole [PriLOSEC] 40 mg PO HS #30 cap 11/08/19 02/09/20 Rx Ranolazine [Ranexa] 500 mg PO Q12HR #60 tab.er.12h 11/08/19 02/09/20 Rx Formoterol Fumarate [Perforomist] 20 mcg INHALATION RT-BID 11/26/19 02/09/20 History levalbuterol HCL [Levalbuterol HCl] 0.63 mg INHALATION RT-QID 11/26/19 02/09/20 History lisinopriL [Zestril] 20 mg PO BID tab 12/03/19 02/09/20 Rx Aspirin EC [Ecotrin] 325 mg PO DAILY 02/09/20 02/09/20 History Atorvastatin [Lipitor] 80 mg PO HS 02/09/20 02/09/20 History Ciprofloxacin HCl [Cipro] 500 mg PO Q12HR 02/09/20 02/09/20 History Ferrous Sulfate [Feosol] 325 mg PO DAILY 02/09/20 02/09/20 History Metoprolol Tartrate [Lopressor] 50 mg PO BID 02/09/20 02/09/20 History metFORMIN HCL 1,000 mg PO BID 02/09/20 02/09/20 History Allergies Allergy/AdvReac Type Severity Reaction Status Date / Time amoxicillin [From Augmentin] Allergy Rash/Hives Verified 02/09/20 10:47 clavulanic acid Allergy Rash/Hives Verified 02/09/20 10:47 [From Augmentin] metronidazole [From Flagyl] Allergy Nausea & Verified 02/09/20 10:47 Vomiting adhesive tape AdvReac bruises,"paper Verified 02/09/20 10:47 tape is ok" albuterol AdvReac Rapid Verified 02/09/20 10:47 Heart Rate stress test injection Allergy Anaphylaxis Uncoded 02/09/20 09:41 Physical Exam Vitals: Vital Signs Temp Pulse Resp BP Pulse Ox 02/13/20 15:00 56 L 20 96/41 98 02/13/20 14:00 57 L 22 93/54 97 02/13/20 13:00 57 L 11 L 100/60 90 L 02/13/20 12:22 82 02/13/20 12:10 82 02/13/20 12:00 98.6 F 52 L 32 H 117/53 97 02/13/20 11:00 54 L 28 H 150/64 94 L 02/13/20 10:00 64 31 H 137/56 96 02/13/20 09:28 72 02/13/20 09:14 72 02/13/20 09:04 72 02/13/20 09:00 71 20 149/74 95 02/13/20 08:00 98.0 F 83 19 145/98 95 02/13/20 07:00 73 27 H 110/61 96 02/13/20 06:00 70 16 148/49 97 02/13/20 05:00 68 17 118/44 94 L 02/13/20 04:00 60 11 L 139/58 94 L 02/13/20 03:00 60 28 H 124/59 93 L 02/13/20 02:00 53 L 31 H 113/51 93 L 02/13/20 01:00 52 L 23 113/51 95 02/13/20 00:19 45 L 14 96 02/13/20 00:00 47 L 29 H 102/44 96 02/12/20 23:00 52 L 29 H 118/45 94 L 02/12/20 22:00 55 L 30 H 116/50 93 L 02/12/20 21:00 50 L 26 H 109/44 98 02/12/20 20:55 50 L 02/12/20 20:54 50 L 02/12/20 20:46 50 L 02/12/20 20:00 97.9 F 46 L 14 100/41 95 02/12/20 19:00 55 L 26 H 112/46 93 L 02/12/20 18:00 52 L 26 H 107/47 97 02/12/20 17:00 48 L 34 H 89/41 94 L 02/12/20 16:42 47 L 02/12/20 16:33 46 L 02/12/20 16:00 98.4 F 45 L 12 85/43 95 Intake and Output 02/13/20 02/13/20 02/13/20 06:59 14:59 22:59 Intake Total 400 895 Output Total 1082 1260 25 Balance -682 -365 -25 Intake: Intake, IV Titration 200 175 Amount Sodium Chloride 3%( 200 175 Hypertonic) 500 ml @ 25 mls/hr IV .Q20H [facility] Rx#: [id number] Oral 200 720 Output: Urine 1082 1260 25 Other: Voiding Method Indwelling Catheter Indwelling Catheter Weight 112 kg 112 kg GENERAL DESCRIPTION: Elderly female up in the chair, no distress. No tachypnea or accessory muscle of respiration use. HEENT: Shows Pallor , no scleral icterus. Oral mucous membrane is dry. No pharyngeal erythema or thrush NECK: Trachea central, no thyromegaly. LUNGS: Unlabored breathing. Clear to auscultation anteriorly. No wheeze or crackle. HEART: S1, S2, regular rate and rhythm. No loud murmur ABDOMEN: Soft, no tenderness , guarding or rigidity, no organomegaly EXTREMITIES: Bilateral diabetic foot wound on the plantar aspect no slough tissue minimal surrounding callus minimal surrounding redness. SKIN: No rash, no masses palpable. NEUROLOGICAL: The patient is awake, alert, oriented x3, mood and affect normal. Results CBC & Chem 7: 02/14/20 03:31 02/14/20 03:27 Labs: Abnormal Lab Results - Last 24 Hours (Table) 02/12/20 02/12/20 02/12/20 Range/Units 16:50 16:58 17:07 WBC (3.8-10.6) k/uL Hgb (11.4-16.0) gm/dL Hct (34.0-46.0) % MCV (80.0-100.0) fL MCH (25.0-35.0) pg MCHC (31.0-37.0) g/dL RDW (11.5-15.5) % Neutrophils # (1.3-7.7) k/uL Sodium 115 L* (137-145) mmol/L Chloride (98-107) mmol/L BUN (7-17) mg/dL Creatinine (0.52-1.04) mg/dL Glucose (74-99) mg/dL POC Glucose (mg/dL) 200 H (75-99) mg/dL Total Protein (6.3-8.2) g/dL Albumin (3.5-5.0) g/dL Urine Appearance Cloudy H (Clear) Urine Protein 2+ H (Negative) Urine Glucose (UA) 1+ H (Negative) Ur Squamous Epith Cells 5 H (0-4) /hpf Amorphous Sediment Moderate H (None) /hpf Urine Bacteria Rare H (None) /hpf Urine Mucus Rare H (None) /hpf 02/12/20 02/12/20 02/13/20 Range/Units 20:52 20:58 05:11 WBC 15.2 H (3.8-10.6) k/uL Hgb 10.0 L (11.4-16.0) gm/dL Hct 32.5 L (34.0-46.0) % MCV 66.7 L (80.0-100.0) fL MCH 20.6 L (25.0-35.0) pg MCHC 30.8 L (31.0-37.0) g/dL RDW 17.5 H (11.5-15.5) % Neutrophils # 10.4 H (1.3-7.7) k/uL Sodium 115 L* (137-145) mmol/L Chloride (98-107) mmol/L BUN (7-17) mg/dL Creatinine (0.52-1.04) mg/dL Glucose (74-99) mg/dL POC Glucose (mg/dL) 169 H (75-99) mg/dL Total Protein (6.3-8.2) g/dL Albumin (3.5-5.0) g/dL Urine Appearance (Clear) Urine Protein (Negative) Urine Glucose (UA) (Negative) Ur Squamous Epith Cells (0-4) /hpf Amorphous Sediment (None) /hpf Urine Bacteria (None) /hpf Urine Mucus (None) /hpf 02/13/20 02/13/20 02/13/20 Range/Units 05:11 06:29 10:15 WBC (3.8-10.6) k/uL Hgb (11.4-16.0) gm/dL Hct (34.0-46.0) % MCV (80.0-100.0) fL MCH (25.0-35.0) pg MCHC (31.0-37.0) g/dL RDW (11.5-15.5) % Neutrophils # (1.3-7.7) k/uL Sodium 120 L 124 L (137-145) mmol/L Chloride 87 L (98-107) mmol/L BUN 21 H (7-17) mg/dL Creatinine 1.12 H (0.52-1.04) mg/dL Glucose 119 H (74-99) mg/dL POC Glucose (mg/dL) 137 H (75-99) mg/dL Total Protein 5.9 L (6.3-8.2) g/dL Albumin 3.2 L (3.5-5.0) g/dL Urine Appearance (Clear) Urine Protein (Negative) Urine Glucose (UA) (Negative) Ur Squamous Epith Cells (0-4) /hpf Amorphous Sediment (None) /hpf Urine Bacteria (None) /hpf Urine Mucus (None) /hpf 02/13/20 Range/Units 12:05 WBC (3.8-10.6) k/uL Hgb (11.4-16.0) gm/dL Hct (34.0-46.0) % MCV (80.0-100.0) fL MCH (25.0-35.0) pg MCHC (31.0-37.0) g/dL RDW (11.5-15.5) % Neutrophils # (1.3-7.7) k/uL Sodium (137-145) mmol/L Chloride (98-107) mmol/L BUN (7-17) mg/dL Creatinine (0.52-1.04) mg/dL Glucose (74-99) mg/dL POC Glucose (mg/dL) 191 H (75-99) mg/dL Total Protein (6.3-8.2) g/dL Albumin (3.5-5.0) g/dL Urine Appearance (Clear) Urine Protein (Negative) Urine Glucose (UA) (Negative) Ur Squamous Epith Cells (0-4) /hpf Amorphous Sediment (None) /hpf Urine Bacteria (None) /hpf Urine Mucus (None) /hpf Assessment and Plan Assessment: patient with bilateral diabetic foot ulcer on the plantar aspect at the base of the first metatarsal head with a recent culture done at [facility] were positive for Citrobacter patient did have a bone scan at that facility there was negative for osteomyelitis and the patient was an outpatient oral Cipro no admitted to hospital with chest pain in this patient who did have a work-up including CT angiogram that was negative for PE and pneumonia CT abdominal pelvis was negativ e, urine is not significantly positive and no significant cellulitis of bilateral feet (1) Diabetic foot ulcer associated with type 2 diabetes mellitus, with fat layer exposed Current Visit: Yes Status: Acute Code(s): E11.621 - TYPE 2 DIABETES MELLITUS WITH FOOT ULCER; L97.502 - NON-PRS CHRONIC ULCER OTH PRT UNSP FOOT W FAT LAYER EXPOSED SNOMED Code(s): 5429598347871 Plan: 1-we will switch her antibiotic therapy to Rocephin 2 g daily while inpatient 2-local wound care with dry Aquacel dressing to be changed to 48-hour We will follow on clinical condition and cultures to further adjust medication if needed Thank you for this consultation will follow this patient along with you
--- NOTE | 2020-02-14 15:48 | PN ---
PROGRESS NOTE Patient is seen for followup for hyponatremia. Her 3% saline has been discontinued and serum sodium is staying about 123 to 125 mEq/L. The patient's blood pressure drops after she gets her blood pressure medicines in the 90s associated with decreased urine output. Serum creatinine is staying at about 1.0 mg/dL. Potassium is also elevated today. No complaints of nausea, vomiting, abdominal pain or diarrhea. Initial cortisol level was low at 12, and I have ordered a Cortrosyn stimulation test to rule out adrenal insufficiency. PHYSICAL EXAMINATION: On examination today, blood pressure was 136/63, heart rate 55 per minute. She is afebrile. EXAMINATION OF THE HEART: S1 and S2. EXAMINATION OF LUNGS: Bilateral breath sounds are heard. ABDOMEN: Soft, non-tender. Examination of lower extremities shows no evidence of edema. SENIOR PRODUCT ANALYST exam is grossly intact. LABS: Labs show sodium 124, potassium 5.5, chloride 94, BUN 27, creatinine 1.08, hemoglobin 10.1 g/dL. ASSESSMENT: 1. Acute kidney injury secondary to hypotension, currently nonoliguric. Serum creatinine is slightly lower than yesterday. Continue to avoid hypotension. I will hold off on hydralazine and decrease the Lopressor to 50 mg twice a day. Also rule out adrenal insufficiency, given the mild hyperkalemia along with the hyponatremia and low blood pressure. 2. Rule out adrenal insufficiency. Initial cortisol level was 12. I will check a Cortrosyn stimulation test. 3. Hyperkalemia associated with mild acute kidney injury, low blood pressure and use of Aldactone. I will hold off on the Aldactone for now and repeat labs in a.m. Rule out adrenal insufficiency. 4. Hyponatremia, initially euvolemic, but later on blood pressure had dropped significantly, but patient's serum sodium had worsened with normal saline after initial admission, and her urine osmolality is also elevated. Therefore I have not started her on saline. I will add sodium chloride tabs instead and repeat sodium later on this evening. Continue to maintain free water restriction and increase protein in diet. Rule out adrenal insufficiency. PLAN: Check Cortrosyn stimulation test. Hold off on Aldactone. Decrease Lopressor dose and hold hydralazine, as blood pressure drops significantly post medications. Repeat sodium this evening. MMODL / IJN: [id number] /
--- NOTE | 2020-02-14 16:15 | P.PN ---
Subjective Progress Note Date: 02/14/20 Principal diagnosis: DVT of the right lower extremity in follow-up today patient is feeling good, no complaints. Objective - Vital Signs Vital signs: Vital Signs Temp 98.2 F 02/14/20 09:00 Pulse 63 02/14/20 15:00 Resp 29 H 02/14/20 15:41 BP 117/58 02/14/20 13:00 Pulse Ox 96 02/14/20 15:00 Intake & Output 02/13/20 02/14/20 02/14/20 18:59 06:59 18:59 Intake Total 1135 440 840 Output Total 1380 870 760 Balance -245 -430 80 Weight 112 kg 111.7 kg Intake: Intake, IV Titration 175 Amount Sodium Chloride 3%( 175 Hypertonic) 500 ml @ 25 mls/hr IV .Q20H [facility] Rx#: [id number] Oral 960 440 840 Output: Urine 1380 870 760 Other: Voiding Method Indwelling Catheter Indwelling Catheter Indwelling Catheter - Constitutional General appearance: Present: cooperative, no acute distress, obese - EENT Eyes: Present: anicteric sclerae, EOMI ENT: Present: hearing grossly normal - Respiratory Details: Pt carries on a conversation without significant SOB - Musculoskeletal Musculoskeletal: Present: generalized weakness, strength equal bilaterally - Psychiatric Psychiatric: Present: A&O x's 3, appropriate affect, intact judgment & insight - Labs CBC & Chem 7: 02/14/20 03:31 02/14/20 03:27 Labs: Abnormal Lab Results - Last 24 Hours (Table) 02/13/20 02/13/20 02/13/20 Range/Units 05:11 17:11 17:29 WBC (3.8-10.6) k/uL Hgb (11.4-16.0) gm/dL Hct (34.0-46.0) % MCV (80.0-100.0) fL MCH (25.0-35.0) pg MCHC (31.0-37.0) g/dL RDW (11.5-15.5) % Neutrophils # (1.3-7.7) k/uL Sodium 123 L (137-145) mmol/L Potassium (3.5-5.1) mmol/L Chloride (98-107) mmol/L BUN (7-17) mg/dL Creatinine (0.52-1.04) mg/dL Glucose (74-99) mg/dL POC Glucose (mg/dL) 231 H (75-99) mg/dL Hemoglobin A1c 6.9 H (4.0-6.0) % 02/13/20 02/13/20 02/14/20 Range/Units 20:45 22:41 03:27 WBC (3.8-10.6) k/uL Hgb (11.4-16.0) gm/dL Hct (34.0-46.0) % MCV (80.0-100.0) fL MCH (25.0-35.0) pg MCHC (31.0-37.0) g/dL RDW (11.5-15.5) % Neutrophils # (1.3-7.7) k/uL Sodium 125 L 124 L (137-145) mmol/L Potassium 5.5 H (3.5-5.1) mmol/L Chloride 94 L (98-107) mmol/L BUN 27 H (7-17) mg/dL Creatinine 1.08 H (0.52-1.04) mg/dL Glucose 213 H (74-99) mg/dL POC Glucose (mg/dL) 220 H (75-99) mg/dL Hemoglobin A1c (4.0-6.0) % 02/14/20 02/14/20 02/14/20 Range/Units 03:31 06:34 12:08 WBC 13.0 H (3.8-10.6) k/uL Hgb 10.1 L (11.4-16.0) gm/dL Hct 33.3 L (34.0-46.0) % MCV 68.1 L (80.0-100.0) fL MCH 20.6 L (25.0-35.0) pg MCHC 30.2 L (31.0-37.0) g/dL RDW 18.3 H (11.5-15.5) % Neutrophils # 9.9 H (1.3-7.7) k/uL Sodium (137-145) mmol/L Potassium (3.5-5.1) mmol/L Chloride (98-107) mmol/L BUN (7-17) mg/dL Creatinine (0.52-1.04) mg/dL Glucose (74-99) mg/dL POC Glucose (mg/dL) 242 H 200 H (75-99) mg/dL Hemoglobin A1c (4.0-6.0) % Microbiology - Last 24 Hours (Table) 02/12/20 16:58 Blood Culture - Preliminary Blood No Growth after 24 hours Assessment and Plan (1) Deep vein thrombosis, lower right extremity Narrative/Plan: Review of the Doppler is most suggestive of a chronic DVT. Patient is currently on aspirin and Plavix for a recent cardiac stent placement. Venous thrombosis is typically treated with anticoagulants versus antiplatelet therapies. Patient's risk factors include frequent hospitalizations, inflammation due to chronic wounds, likely a degree of peripheral vascular disease secondary to cardiovascular disease and diabetes. Patient risk for bleeding though with both anticoagulation and antiplatelet therapy is significant. PE has been ruled out with CTA of chest, bilateral lower extremity Dopplers to not discuss any acute component to the clot. Found venous duplex report for both lower extremities dated 07/03/13. Report reads: Deep venous system of both legs was interrogated from the external iliac vein to the proximal calf veins demonstrating good flow, augmentation and compressibility on the left. The deep femoral vein on the right, there is a non-occluding thrombus. Age of this is indeterminate. The current doppler and the previous doppler results described are similar, less likely acute, more likely chronic. Risks versus benefit recommendation is for patient to remain on her aspirin and Plavix, no additional anticoagulation at this time. I discussed the above again with pt today. Also, told her to ensure if she is hospitalized she needs to be certain she is on DVT prophylaxis with heparin and if she has any surgeries she needs to be on full dose anticoagulation for 4-6 weeks, based on her recovery time. She verbalized understanding and took notes on the recommendations. All questions addressed to pt satisfaction. Current Visit: Yes Status: Chronic Priority: High Code(s): I82.401 - ACUTE EMBOLISM AND THOMBOS UNSP DEEP VEINS OF R LOW EXTREM SNOMED Code(s): 652668794
[2020-02-14 16:51] LABS: Glucose,Whole Blood 191 mg/dL (75-99)
[2020-02-14 20:41] LABS: Glucose,Whole Blood 309 mg/dL (75-99)
[2020-02-14] MEDS: ATORVASTATIN 80 MG TAB PO SCH (21:08)
[2020-02-14] MEDS: METOPROLOL TARTRATE 25 MG TAB PO SCH (21:08)
[2020-02-14] MEDS: MONTELUKAST 10 MG TAB PO SCH (21:12)
--- NOTE | 2020-02-15 01:06 | PN ---
PROGRESS NOTE DATE OF SERVICE: 02/14/2020 REASON FOR FOLLOWUP: Bilateral diabetic foot wound and cellulitis. INTERVAL HISTORY: Patient is currently afebrile. The patient is breathing comfortably. Denies having any chest pain. No shortness of breath or cough. No nausea, no vomiting. No abdominal pain. Pain to the bilateral feet wound area. PHYSICAL EXAMINATION: Blood pressure 117/58, pulse of 60, temperature 98. She is 96% on room air. General description is an elderly female up in the chair in no distress. RESPIRATORY SYSTEM: Unlabored breathing, clear to auscultation anteriorly. HEART: S1, S2. Regular rate and rhythm. ABDOMEN: Soft, no tenderness. LABS: No new labs have been obtained today. Blood culture has been negative. DIAGNOSTIC IMPRESSION AND PLAN: Patient with bilateral diabetic foot ulcer with secondary cellulitis. Previous culture positive for Citrobacter. Patient covered with Rocephin 2 grams daily. Local wound care with dry Aquacel Silver dressing. Continue with supportive care. MMODL / IJN: [id number] /
--- NOTE | 2020-02-15 01:15 | PN ---
PROGRESS NOTE A 74-year-old white female with hyponatremia. Just continue on serum sodium, sodium went from 123 to 125. Blood pressure drops after she gets her blood pressure medicine in the 90s with decreased urine output, Creatinine about 1.0. Potassium is elevated. No nausea, vomiting, abdominal pain, diarrhea. Cortisol level is 12. They ordered a corticotropin Cortrosyn stimulation test to rule out adrenal insufficiency. Blood pressure 130s over 60s, heart rate 55, afebrile. CARDIOVASCULAR: S1, S2. LUNGS: Bilateral breath sounds heard. ABDOMEN: Soft, nontender. EXTREMITIES: No edema. ANIMATION CAMERA OPERATOR: Cranial nerves are intact. ASSESSMENT: 1. Acute renal injury secondary to hypotension, currently nonoliguric. Serum creatinine is slightly lower than yesterday. Hydralazine discontinued. Cut down Lopressor 50 b.i.d. 2. Rule out adrenal insufficiency with a test. 3. Hyperkalemia. 4. Hyponatremia. 5. Low blood pressure. 6. adrenal insufficiency. Please see further orders. ICU Time: 30 minutes. MMODL / IJN: [id number] /
[2020-02-15] MEDS ORDERED: ONDANSETRON 4 MG/2 ML VIAL IVP PRN (01:23)
[2020-02-15] MEDS: HEPARIN SODIUM,PORCINE 5,000 UNIT/ML 1 ML VIAL SQ SCH ×3 (03:40→21:13)
[2020-02-15] MEDS: HYDROcodone/APAP 7.5-325MG 1 EACH TAB PO PRN ×3 (05:36→21:11)
[2020-02-15 05:39] LABS: Anisocytosis Slight; Basophils % (A) 0 %; Eosinophils # (A) 0.2 k/uL (0-0.7); Eosinophils % (A) 1 %; HCT 35.5 % (34.0-46.0); HGB 10.3 gm/dL (11.4-16.0); Hypochromasia Marked; Lymphocytes # (A) 3.5 k/uL (1.0-4.8); Lymphocytes % (A) 19 %; MCHC 28.9 g/dL (31.0-37.0); MCV 69.4 fL (80.0-100.0); Microcytosis Marked; Monocytes % (A) 6 %; Neutrophils # (A) 13.2 k/uL (1.3-7.7); Neutrophils % (A) 73 %; Platelet Count 516 k/uL (150-450); RBC 5.12 m/uL (3.80-5.40); RDW 18.2 % (11.5-15.5); WBC 18.2 k/uL (3.8-10.6)
[2020-02-15 06:00] LABS: Calcium 9.8 mg/dL (8.4-10.2); Potassium 4.9 mmol/L (3.5-5.1)
[2020-02-15 06:47] LABS: Glucose,Whole Blood 203 mg/dL (75-99)
[2020-02-15] MEDS: INSULIN ASPART (NovoLOG) 100 UNIT/ML VIAL SQ SCH ×4 (07:00→21:13)
[2020-02-15] MEDS: FORMOTEROL FUMARATE 20 MCG/2 ML NEBU INHALATION SCH ×2 (07:34→20:33)
[2020-02-15] MEDS: IPRATROPIUM 0.5 MG/2.5 ML NEBU INHALATION SCH ×4 (07:34→20:33)
[2020-02-15] MEDS: SYMBICORT 80-4.5 MCG INHALER INHALATION SCH (07:35)
[2020-02-15] MEDS: ASPIRIN 81 MG PO SCH (09:21)
[2020-02-15] MEDS: DICYCLOMINE 10 MG CAP PO SCH (09:21)
[2020-02-15] MEDS: CLOPIDOGREL 75 MG TAB PO SCH (09:21)
[2020-02-15] MEDS: CHOLECALCIFEROL 1,000 UNIT TAB PO SCH (09:21)
[2020-02-15] MEDS: MAGNESIUM OXIDE 400 MG TAB PO SCH (09:22)
[2020-02-15] MEDS: METOCLOPRAMIDE 10 MG TAB PO SCH ×4 (09:22→21:12)
[2020-02-15] MEDS: ISOSORBIDE MONONITRATE ER 60 MG TAB.ER.24H PO SCH (09:22)
[2020-02-15] MEDS: FERROUS SULFATE 325 MG TAB PO SCH (09:22)
[2020-02-15] MEDS: PANTOPRAZOLE 40 MG/10 ML VIAL IVP SCH ×2 (09:23→21:10)
[2020-02-15] MEDS: METOPROLOL TARTRATE 25 MG TAB PO SCH ×2 (09:23→21:11)
[2020-02-15] MEDS: polyethylene glycoL 3350 17 GM POWD.PACK PO SCH (09:23)
[2020-02-15] MEDS: RANOLAZINE 500 MG TAB.ER.12H PO SCH ×2 (09:24→21:13)
[2020-02-15] MEDS: rOPINIRole HCL 4 MG TABLET PO SCH ×3 (09:24→21:12)
[2020-02-15] MEDS: SODIUM CHLORIDE TAB 1 GM TAB PO SCH (09:24)
[2020-02-15] MEDS: SPIRONOLACTONE 25 MG TAB PO SCH (09:24)
[2020-02-15] MEDS: hydrALAZINE HCL 25 MG TAB PO SCH ×2 (11:38→21:11)
[2020-02-15 12:08] LABS: Glucose,Whole Blood 211 mg/dL (75-99)
--- NOTE | 2020-02-15 13:34 | P.PN ---
Subjective Progress Note Date: 02/15/20 Principal diagnosis: Hypotension bradycardia and likely associated with beta yoselyn patient is being slowly rehydrated being observe closely Leukocytosis I early sepsis, will do urine and blood culture Chronic DVT of the lower extremity anticoagulation for DVT prophylaxis Severe hypernatremia End-stage severe COPD Chronic hypoxic respiratory failure Obstructive sleep apnea Restless leg syndrome Microcytic anemia 02/15/2020, patient seen eval examined during the rounds labs reviewed medications reviewed care plan discussed, chest pain or shortness of breath much improved now patient breathing comfortably able to walk with assistance with a walker, oxygen saturation 92% at room air, white cell count noted to be 18,000, sodium is up to 130, sugar continued to be running on the higher side, random cortisol level within normal range, Dr. Perez from infectious disease is following for leukocytosis 02/14/2020, patient seen eval examined during the rounds labs reviewed medications reviewed restrictive status continued to improved now, oxygen saturation 96% on 2 L remains afebrile, white cell count improving, sodium however remains on the low side 124, blood culture so far no growth, urine culture results are pending renal functions slightly elevated but overall stable patient can moved of out from the ICU from pulmonary standpoint 02/13/2020, patient seen eval examined in in intensive care unit during the rounds labs reviewed medications reviewed, patient is sitting upright on the chair breathing comfortably, denies any chest pain, hemodynamics have s ignificantly improved, she can be moved out of the ICU This is a 74-year-old morbidly obese female came into the hospital with diffuse nonspecific complaints involving the chest discomfort abdominal pain, she underwent a computed tomography scan of the chest negative for pulmonary embolism, patient has a recent history of cardiac cath angiogram and stent placement has been on aspirin and Plavix, she has chronic DVT of the lower extremities, her past medical history significant for a COPD has been on home oxygen 3 L she also has a sleep apnea has been on CPAP other active problem" I artery disease is diabetes hypertension and dyslipidemia, patient was in fact slightly hypertensive this morning receive beta yoselyn since then her drop in blood pressure has been noted her systolic blood pressure ranges around 80s heart rate went down to 40s, patient transferred to the ICU however she is awake and alert no signs diaphoresis, she has been found to have a sodium of 1:15 does have a history of chronic hyponatremia into 130s, patient is to be given 3% saline as per renal service, her antihypertensive agents are being held, patient remains on broad-spectrum antibiotics for suspected sepsis of unclear etiology, her magnesium is found to be on a 1.3, along with an microcytic anemia, Objective - Vital Signs Vital signs: Vital Signs Temp 98.4 F 02/15/20 08:00 Pulse 59 L 02/15/20 12:05 Resp 15 02/15/20 11:00 BP 166/64 02/15/20 11:00 Pulse Ox 92 L 02/15/20 11:00 Intake & Output 02/14/20 02/15/20 02/15/20 18:59 06:59 18:59 Intake Total 890 500 600 Output Total 900 1000 Balance -10 -500 600 Weight 111.2 kg Intake: Intake, IV Titration 50 100 Amount cefTRIAXone 2 gm In 50 100 Sodium Chloride 0.9% 50 ml @ 100 mls/hr IVPB Q24HR [facility] Rx#:[id number] Oral 840 500 500 Output: Urine 900 1000 Other: Voiding Method Indwelling Catheter Indwelling Catheter # Voids 2 - Exam - Constitutional General appearance: cooperative, no acute distress, obese - EENT Eyes: anicteric sclerae, EOMI ENT: hearing grossly normal, normal oropharynx - Neck Neck: no lymphadenopathy - Respiratory Respiratory: bilateral: diminished - Cardiovascular Heart sounds: normal: S1, S2 leg Peripheral Edema: bilateral: Trace - Gastrointestinal General gastrointestinal: normal bowel sounds, soft - Neurologic Neurologic: CNII-XII intact - Musculoskeletal Musculoskeletal: generalized weakness - Psychiatric Psychiatric: A&O x's 3, appropriate affect, intact judgment & insight - Labs CBC & Chem 7: 02/15/20 04:48 02/15/20 04:48 Labs: Abnormal Lab Results - Last 24 Hours (Table) 02/14/20 02/14/20 02/14/20 Range/Units 16:50 16:52 20:39 WBC (3.8-10.6) k/uL Hgb (11.4-16.0) gm/dL MCV (80.0-100.0) fL MCH (25.0-35.0) pg MCHC (31.0-37.0) g/dL RDW (11.5-15.5) % Plt Count (150-450) k/uL Neutrophils # (1.3-7.7) k/uL Sodium 129 L (137-145) mmol/L Chloride (98-107) mmol/L Glucose (74-99) mg/dL POC Glucose (mg/dL) 191 H 309 H (75-99) mg/dL 02/15/20 02/15/20 02/15/20 Range/Units 04:48 04:48 06:45 WBC 18.2 H (3.8-10.6) k/uL Hgb 10.3 L (11.4-16.0) gm/dL MCV 69.4 L (80.0-100.0) fL MCH 20.0 L (25.0-35.0) pg MCHC 28.9 L (31.0-37.0) g/dL RDW 18.2 H (11.5-15.5) % Plt Count 516 H (150-450) k/uL Neutrophils # 13.2 H (1.3-7.7) k/uL Sodium 130 L (137-145) mmol/L Chloride 96 L (98-107) mmol/L Glucose 173 H (74-99) mg/dL POC Glucose (mg/dL) 203 H (75-99) mg/dL 02/15/20 Range/Units 12:06 WBC (3.8-10.6) k/uL Hgb (11.4-16.0) gm/dL MCV (80.0-100.0) fL MCH (25.0-35.0) pg MCHC (31.0-37.0) g/dL RDW (11.5-15.5) % Plt Count (150-450) k/uL Neutrophils # (1.3-7.7) k/uL Sodium (137-145) mmol/L Chloride (98-107) mmol/L Glucose (74-99) mg/dL POC Glucose (mg/dL) 211 H (75-99) mg/dL Microbiology - Last 24 Hours (Table) 02/12/20 16:58 Blood Culture - Preliminary Blood No Growth after 48 hours Assessment and Plan Assessment: Hypotension bradycardia and likely associated with beta yoselyn patient is being slowly rehydrated being observe closely, hemodynamics including both hypotension bradycardia resolving Leukocytosis early sepsis, will do urine and blood culture, blood culture results are available however urine is still pending today, we'll send urine Chronic DVT of the lower extremity anticoagulation for DVT prophylaxis Severe hypernatremia End-stage severe COPD Chronic hypoxic respiratory failure Obstructive sleep apnea Restless leg syndrome Microcytic anemia Plan: Gently hydrate the patient Monitor sodium very closely Follow-up urine culture From critical care standpoint she can be moved out of the ICU as per availability on the bed Further recommendations pending plan of care as per clinical response of the patient Time with Patient: Greater than 30
--- NOTE | 2020-02-15 14:31 | PN ---
PROGRESS NOTE Mrs. Brand is a 74-year-old female with a history of coronary artery disease, status post percutaneous revascularization. She is feeling better overall today. Her breathing is stable. She has no chest discomfort. She has hyponatremia that is stable. She denies any dizziness or palpitation. She denies any nausea. She has been worked up at the time for the evaluation of her hyponatremia and possible adrenal insufficiency. Her medical regimen has been adjusted. She is at this time on aspirin once a day, Lipitor 80 mg daily, Plavix 75 mg daily, isosorbide mononitrate 60 mg daily, metoprolol tartrate 75 mg twice a day, Ranexa 500 mg twice a day, spironolactone 25 mg daily. PHYSICAL EXAMINATION: Her blood pressure is running in the 160-170 with a heart rate in the 60s. LUNGS: Clear. HEART: Regular rate and rhythm, S1, S2. No S3 with a systolic murmur, no diastolic murmur, no rub. ABDOMEN: Soft, nontender. EXTREMITIES: 1+ edema bilaterally. LAB DATA: Revealed BUN and creatinine 17 and 0.82. First sodium is 130, hemoglobin 10.3, white blood cell of 18.2. Her cortisol level is 37. IMPRESSION: 1. History of coronary disease, stable. 2. Hypertension elevated. 3. Hyponatremia, resolved. 4. Possible adrenal insufficiency. Workup in progress. 5. Bradycardia, resolved. RECOMMENDATION: From the cardiac standpoint, her blood pressure remain elevated. I will re- initiate treatment with Hydralazine at this time. Continue on the present dose of the beta yoselyn, continue to follow her renal function. Await further workup by the Nephrology Service and depending on her progress, further recommendation will be made. MMODL / IJN: [id number] / MTDD
[2020-02-15 16:57] LABS: Glucose,Whole Blood 246 mg/dL (75-99)
--- NOTE | 2020-02-15 16:57 | PN ---
PROGRESS NOTE Patient is seen for followup for hyponatremia. Patient was started on sodium chloride tabs yesterday. Her sodium level has improved to 130 today. Her blood pressure had been low; however, now her pressure is elevated to about 160 to 170 mmHg. Hydralazine has been restarted. I will discontinue the sodium chloride tabs as well. No significant complaints this morning. PHYSICAL EXAMINATION: On examination today, blood pressure was 173/49, heart rate 65 per minute. She is afebrile. EXAMINATION OF THE HEART: S1 and S2. EXAMINATION OF LUNGS: Bilateral breath sounds are heard. ABDOMEN: Soft, non-tender. Examination of lower extremities shows no significant edema. CREDIT CONTROL MANAGER exam is grossly intact. LABS: Labs show sodium 130, potassium 4.9, chloride 96. CO2 is 28, BUN 17, creatinine 0.82, hemoglobin 10.3 g/dL. ASSESSMENT: 1. Hyponatremia, currently euvolemic, status post 3% saline. Patient had elevated urine osmolality and her serum sodium had worsened with normal saline. Therefore there was component of SIADH. Patient's blood pressure had been low and currently it is back up. There was also suspicion for adrenal insufficiency, and a Cortrosyn stimulation test was performed yesterday which did show a significant increase in the cortisol level with the cosyntropin. At this point I will discontinue the sodium chloride tabs, maintain patient on fluid restriction and increase protein intake in diet. 2. Acute kidney injury secondary to hypotension, currently improved. 3. Hyperkalemia associated acute kidney injury, decreased urine output, now improved. Aldactone has been on hold. We can resume the Aldactone in and another day or so. 4. Hypertension. Blood pressure had been low. Therefore medications were held. However, now blood pressure is high and therefore hydralazine has been restarted. Lopressor is maintained and if pressure remains elevated we can also resume the Norvasc. 5. Dyslipidemia. PLAN: Discontinue sodium chloride tabs. Can resume Aldactone. Maintain fluid restriction. Repeat labs in a.m. MMODL / IJN: [id number] /
[2020-02-15] MEDS: metFORMIN 500 MG TAB PO SCH (18:07)
--- NOTE | 2020-02-15 19:54 | PN ---
PROGRESS NOTE Eggjcjg-vah-jinp-old white female with hypertension, bradycardia, leukocytosis, chronic DVT, severe hyp natremia, COPD, chronic respiratory failure, sleep apnea, restless legs syndrome. Sitting up in bed. She has been eating and drinking well, walking with a walker. Oxygen saturation 92 on room air. White count is 18. Sodium is up to 130. Sugar was on the higher side. She wants to be started back on her metformin. Random cortisol level is within normal range. Dr. Sargented to see her for leukocytosis. Lungs are clear. CARDIOVASCULAR: S1, S2. PSYCH: Fair mood and affect. NEUROLOGIC: Alert and oriented x3. ASSESSMENT: 1. Hypertension. 2. Bradycardia associated with beta blockers, being slowly rehydrated. 3. Leukocytosis. 4. Early sepsis. 5. Urine and blood cultures, possibly infection from the wounds or urinary tract infection. 6. Chronic deep venous thrombosis, on anticoagulation. 7. Severe hyponatremia, improving. 8. Chronic obstructive pulmonary disease. 9. Chronic hypoxemic respiratory failure. 10.Obstructive sleep apnea. 11.Restless legs syndrome. 12.Microcytic anemia. Follow up on the urine culture. Rehydrate. Monitor sodium. PT/OT. Please see further orders. Possible rehab placement. Depending on white count, she will be able to go home. MMODL / IJN: [id number] /
[2020-02-15 20:47] LABS: Glucose,Whole Blood 227 mg/dL (75-99)
[2020-02-15] MEDS: MONTELUKAST 10 MG TAB PO SCH (21:11)
[2020-02-15] MEDS: ATORVASTATIN 80 MG TAB PO SCH (21:11)
--- NOTE | 2020-02-15 23:46 | PN ---
PROGRESS NOTE DATE OF SERVICE: 02/15/2020 REASON FOR FOLLOWUP: 1. Bilateral diabetic foot wound and cellulitis. 2. Elevated white count. INTERVAL HISTORY: The patient is currently afebrile. Patient is breathing comfortably. Denies having any chest pain. No shortness of breath or cough. No abdominal pain, diarrhea or any pain to the bilateral diabetic foot wound. PHYSICAL EXAMINATION: Her blood pressure is 153/58 with the pulse of 68, temperature 98.4. General description is an elderly female up in the bed in no distress. RESPIRATORY SYSTEM: Unlabored breathing, clear to auscultation anteriorly. HEART: S1, S2. Regular rate and rhythm. ABDOMEN: Soft, no tenderness. Bilateral feet are currently dressed up. No obvious drainage on the dressing. LABS: Hemoglobin is 10.3, white count 18.2, BUN of 17, creatinine 0.82. Blood culture has been negative. DIAGNOSTIC IMPRESSION AND PLAN: Patient with bilateral diabetic foot wound with concern for secondary cellulitis, previous culture positive for Citrobacter. The patient is currently covered with the Rocephin 2 grams daily to continue. She did have slight jump in the white count from yesterday that will be monitored closely. Repeat inflammatory markers tomorrow. Continue supportive care. MMODL / IJN: [id number] /
[2020-02-16 04:38] LABS: Anisocytosis Slight; Basophils # (A) 0.1 k/uL (0-0.2); Basophils % (A) 0 %; Eosinophils # (A) 0.3 k/uL (0-0.7); Eosinophils % (A) 2 %; HCT 33.4 % (34.0-46.0); HGB 9.7 gm/dL (11.4-16.0); Hypochromasia Marked; Lymphocytes # (A) 2.7 k/uL (1.0-4.8); Lymphocytes % (A) 19 %; MCH 20.1 pg (25.0-35.0); MCHC 29.2 g/dL (31.0-37.0); MCV 68.8 fL (80.0-100.0); Mean Platelet Volume 6.8; Microcytosis Marked; Monocytes # (A) 0.8 k/uL (0-1.0); Monocytes % (A) 6 %; Neutrophils % (A) 71 %; Platelet Count 438 k/uL (150-450); RBC 4.85 m/uL (3.80-5.40); WBC 14.1 k/uL (3.8-10.6)
[2020-02-16 04:57] LABS: Calcium 9.5 mg/dL (8.4-10.2); Potassium 4.8 mmol/L (3.5-5.1)
[2020-02-16] MEDS: metFORMIN 500 MG TAB PO SCH ×2 (07:47→17:56)
[2020-02-16] MEDS: HEPARIN SODIUM,PORCINE 5,000 UNIT/ML 1 ML VIAL SQ SCH ×3 (07:47→20:55)
[2020-02-16 07:48] LABS: Glucose,Whole Blood 202 mg/dL (75-99)
[2020-02-16] MEDS: INSULIN ASPART (NovoLOG) 100 UNIT/ML VIAL SQ SCH ×4 (07:50→21:49)
[2020-02-16] MEDS: FORMOTEROL FUMARATE 20 MCG/2 ML NEBU INHALATION SCH ×2 (08:07→20:37)
[2020-02-16] MEDS: IPRATROPIUM 0.5 MG/2.5 ML NEBU INHALATION SCH ×4 (08:07→20:37)
[2020-02-16] MEDS: SPIRONOLACTONE 25 MG TAB PO SCH (08:34)
[2020-02-16] MEDS: METOPROLOL TARTRATE 25 MG TAB PO SCH ×2 (08:34→20:56)
[2020-02-16] MEDS: PANTOPRAZOLE 40 MG/10 ML VIAL IVP SCH (08:34)
[2020-02-16] MEDS: CHOLECALCIFEROL 1,000 UNIT TAB PO SCH (08:34)
[2020-02-16] MEDS: ASPIRIN 81 MG PO SCH (08:34)
[2020-02-16] MEDS: hydrALAZINE HCL 25 MG TAB PO SCH ×2 (08:34→20:56)
[2020-02-16] MEDS: ISOSORBIDE MONONITRATE ER 60 MG TAB.ER.24H PO SCH (08:34)
[2020-02-16] MEDS: FERROUS SULFATE 325 MG TAB PO SCH (08:34)
[2020-02-16] MEDS: MAGNESIUM OXIDE 400 MG TAB PO SCH (08:34)
[2020-02-16] MEDS: CLOPIDOGREL 75 MG TAB PO SCH (08:34)
[2020-02-16] MEDS: polyethylene glycoL 3350 17 GM POWD.PACK PO SCH (08:35)
[2020-02-16] MEDS: rOPINIRole HCL 4 MG TABLET PO SCH ×3 (08:35→21:01)
[2020-02-16] MEDS: DICYCLOMINE 10 MG CAP PO SCH (08:35)
[2020-02-16] MEDS: RANOLAZINE 500 MG TAB.ER.12H PO SCH ×2 (08:36→21:01)
[2020-02-16] MEDS: METOCLOPRAMIDE 10 MG TAB PO SCH ×4 (08:36→21:01)
[2020-02-16] MEDS: HYDROcodone/APAP 7.5-325MG 1 EACH TAB PO PRN ×3 (08:45→21:00)
--- NOTE | 2020-02-16 10:08 | P.PN ---
Subjective Progress Note Date: 02/16/20 Principal diagnosis: Hypotension bradycardia and likely associated with beta yoselyn patient is being slowly rehydrated being observe closely Leukocytosis I early sepsis, will do urine and blood culture Chronic DVT of the lower extremity anticoagulation for DVT prophylaxis Severe hypernatremia End-stage severe COPD Chronic hypoxic respiratory failure Obstructive sleep apnea Restless leg syndrome Microcytic anemia 02/16/2020, patient seen and evaluated examined during the rounds labs reviewed medications reviewed upright sitting on chair breathing comfortably on room air now cuff congestion shortness of breath improved denies any chest pain, white cell count is coming down, blood culture have been negative, urine culture is pending 02/15/2020, patient seen eval examined during the rounds labs reviewed medications reviewed care plan discussed, chest pain or shortness of breath much improved now patient breathing comfortably able to walk with assistance with a walker, oxygen saturation 92% at room air, white cell count noted to be 18,000, sodium is up to 130, sugar continued to be running on the higher side, random cortisol level within normal range, Dr. Perez from infectious disease is following for leukocytosis 02/14/2020, patient seen eval examined during the rounds labs reviewed medications reviewed restrictive status continued to improved now, oxygen saturation 96% on 2 L remains afebrile, white cell count improving, sodium however remains on the low side 124, blood culture so far no growth, urine culture results are pending renal functions slightly elevated but overall stable patient can moved of out from the ICU from pulmonary standpoint 02/13/2020, patient seen eval examined in in intensive care unit during the rounds labs reviewed medications reviewed, patient is sitting upright on the chair breathing comfortably, denies any chest pain, hemodynamics have significantly improved, she can be moved out of the ICU This is a 74-year-old morbidly obese female came into the hospital with diffuse nonspecific complaints involving the chest discomfort abdominal pain, she underwent a computed tomography scan of the chest negative for pulmonary embolism, patient has a recent history of cardiac cath angiogram and stent placement has been on aspirin and Plavix, she has chronic DVT of the lower extremities, her past medical history significant for a COPD has been on home oxygen 3 L she also has a sleep apnea has been on CPAP other active problem" I artery disease is diabetes hypertension and dyslipidemia, patient was in fact slightly hypertensive this morning receive beta yoselyn since then her drop in blood pressure has been noted her systolic blood pressure ranges around 80s heart rate went down to 40s, patient transferred to the ICU however she is awake and alert no signs diaphoresis, she has been found to have a sodium of 1:15 does have a history of chronic hyponatremia into 130s, patient is to be given 3% saline as per renal service, her antihypertensive agents are being held, patient remains on broad-spectrum antibiotics for suspected sepsis of unclear etiology, her magnesium is found to be on a 1.3, along with an microcytic anemia, Objective - Vital Signs Vital signs: Vital Signs Temp 98 F 02/16/20 08:00 Pulse 70 02/16/20 08:25 Resp 18 02/16/20 08:00 BP 138/67 02/16/20 08:00 Pulse Ox 98 02/16/20 08:00 Intake & Output 02/15/20 02/16/20 02/16/20 18:59 06:59 18:59 Intake Total 600 1000 Output Total 1300 Balance 600 -300 Weight 112.1 kg Intake: Intake, IV Titration 100 Amount cefTRIAXone 2 gm In 100 Sodium Chloride 0.9% 50 ml @ 100 mls/hr IVPB Q24HR [facility] Rx#:[id number] Oral 500 1000 Output: Urine 1300 Other: Voiding Method Indwelling Catheter Indwelling Catheter # Voids 2 - Exam - Constitutional General appearance: cooperative, no acute distress, obese - EENT Eyes: anicteric sclerae, EOMI ENT: hearing grossly normal, normal oropharynx - Neck Neck: no lymphadenopathy - Respiratory Respiratory: bilateral: diminished - Cardiovascular Heart sounds: normal: S1, S2 leg Peripheral Edema: bilateral: Trace - Gastrointestinal General gastrointestinal: normal bowel sounds, soft - Neurologic Neurologic: CNII-XII intact - Musculoskeletal Musculoskeletal: generalized weakness - Psychiatric Psychiatric: A&O x's 3, appropriate affect, intact judgment & insight - Labs CBC & Chem 7: 02/16/20 04:08 02/16/20 04:08 Labs: Abnormal Lab Results - Last 24 Hours (Table) 02/15/20 02/15/20 02/15/20 Range/Units 12:06 16:55 20:45 WBC (3.8-10.6) k/uL Hgb (11.4-16.0) gm/dL Hct (34.0-46.0) % MCV (80.0-100.0) fL MCH (25.0-35.0) pg MCHC (31.0-37.0) g/dL RDW (11.5-15.5) % Neutrophils # (1.3-7.7) k/uL Sodium (137-145) mmol/L Chloride (98-107) mmol/L BUN (7-17) mg/dL Creatinine (0.52-1.04) mg/dL Glucose (74-99) mg/dL POC Glucose (mg/dL) 211 H 246 H 227 H (75-99) mg/dL 02/16/20 02/16/20 02/16/20 Range/Units 04:08 04:08 07:46 WBC 14.1 H (3.8-10.6) k/uL Hgb 9.7 L (11.4-16.0) gm/dL Hct 33.4 L (34.0-46.0) % MCV 68.8 L (80.0-100.0) fL MCH 20.1 L (25.0-35.0) pg MCHC 29.2 L (31.0-37.0) g/dL RDW 19.0 H (11.5-15.5) % Neutrophils # 10.0 H (1.3-7.7) k/uL Sodium 131 L (137-145) mmol/L Chloride 97 L (98-107) mmol/L BUN 18 H (7-17) mg/dL Creatinine 1.05 H (0.52-1.04) mg/dL Glucose 159 H (74-99) mg/dL POC Glucose (mg/dL) 202 H (75-99) mg/dL Microbiology - Last 24 Hours (Table) 02/15/20 18:52 Urine Culture - Preliminary Urine,Clean Catch 02/12/20 16:58 Blood Culture - Preliminary Blood No Growth after 72 hours Assessment and Plan Assessment: Leukocytosis early sepsis, follow-up on urine culture Chronic DVT of the lower extremity anticoagulation for DVT prophylaxis Severe hyponatremia, stabilized End-stage severe COPD Chronic hypoxic respiratory failure Obstructive sleep apnea Restless leg syndrome Microcytic anemia Hypotension bradycardia and likely associated with beta yoselyn patient is being slowly rehydrated being observe closely, hemodynamics including both hypotension bradycardia resolved Plan: Gently hydrate the patient Monitor sodium very closely Follow-up urine culture From critical care standpoint she can be moved out of the ICU as per availability on the bed Further recommendations pending plan of care as per clinical response of the patient Time with Patient: Greater than 30
--- NOTE | 2020-02-16 11:29 | PN ---
PROGRESS NOTE Mrs. Brand is a 74-year-old female who presented with history of coronary artery disease status post percutaneous revascularization. She had episode of hyponatremia that improved. She has hypertension that is stable. She is feeling well this morning. She is feeling stronger. She denies any chest pain. No dizziness. No palpitation. She denies any nausea. Hemodynamically, she is stable. She continues to be on aspirin once a day, Lipitor 80 mg daily, iron, hydralazine 25 mg twice a day, isosorbide mononitrate 50 mg daily, metoprolol 75 mg twice a day, metformin 1 g twice a day, Ranexa 500 mg twice a day, spironolactone 25 mg daily. PHYSICAL EXAMINATION: Blood pressure running in the 120s to 140s with a heart in the 60s. LUNGS: Clear. HEART: Regular rate and rhythm. S1, S2. No S3. No rub. ABDOMEN: Soft, nontender. EXTREMITIES: No edema. LAB DATA: Revealed a hemoglobin 9.7, white blood cell of 14.1, BUN and creatinine of 18 and 1.05, potassium 4.8, sodium 131. IMPRESSION: 1. Hyponatremia, improved. 2. Hypertension. 3. History of coronary disease. 4. Bradycardia, resolved. 5. Atypical chest pain. RECOMMENDATION: From the cardiac standpoint, she is stable. I would expect he should be able to be discharged home soon. She will be followed as an outpatient. We will see her on as- needed basis. Please feel free to call us for any question. MMODL / IJN: [id number] /
[2020-02-16 12:10] LABS: Glucose,Whole Blood 154 mg/dL (75-99)
--- NOTE | 2020-02-16 14:01 | PN ---
PROGRESS NOTE Patient is seen for followup for hyponatremia. Her sodium has improved and staying at about 131 mEq/L. The patient is currently not on any diuretics. Her sodium has responded to fluid restriction and 3% saline that she received initially along with a couple of doses of sodium chloride tabs. Blood pressure medications have been restarted. Currently blood pressure is much better controlled. PHYSICAL EXAMINATION: On examination today, blood pressure was 138/67, heart rate 67 per minute. Patient is afebrile. Examination of the heart S1, S2. Examination of the lungs, bilateral breath sounds are heard. Abdomen is soft, nontender. Examination of lower extremities shows no evidence of edema. WARD AIDE exam grossly intact. LABS: Show sodium 131, potassium 4.8, chloride 97, CO2 is 27, BUN 18, creatinine 1.05. ASSESSMENT: 1. Hyponatremia, currently improved. Suspicion for SIADH as serum sodium had worsened with normal saline, but a few days earlier, patient was quite hypotensive and Cortrosyn stimulation test was performed which did not show any evidence of adrenal insufficiency. The patient received a couple of doses of sodium chloride tabs, which are now discontinued. Her serum sodium is staying at 131. She should continue with fluid restriction and monitor labs as outpatient. 2. Acute kidney injury secondary to low blood pressure, currently improved. 3. Hyperkalemia associated with acute kidney injury, decreased urine output and Aldactone, now resolved. Patient is back on the Aldactone. 4. Hypertension. Blood pressure had been low and medications were held. However, they have been restarted as her blood pressure was running high 2 days ago. 5. Dyslipidemia. PLAN: Continue off sodium chloride tabs. Maintain fluid restriction. Repeat labs and followup labs as outpatient. MMODL / IJN: [id number] /
[2020-02-16 16:53] LABS: Glucose,Whole Blood 170 mg/dL (75-99)
--- NOTE | 2020-02-16 19:17 | PN ---
PROGRESS NOTE DATE OF SERVICE: 02/16/2020 REASON FOR FOLLOWUP: Bilateral diabetic foot wound and cellulitis. INTERVAL HISTORY: Patient is currently afebrile. The patient is breathing comfortably the patient denies having any chest pain. No shortness of breath or cough. No nausea, vomiting, abdominal pain, worsening pain to bilateral feet area. PHYSICAL EXAMINATION: Blood pressure 168/63 with a pulse of 68, temperature 99.3. She is 94% on room air. General description: The patient is an elderly female lying in bed in no distress. Respiratory system: Unlabored breathing, clear to auscultation anteriorly. Heart S1, S2. Regular rate and rhythm. ABDOMEN: Soft. No tenderness. Wounds currently dressed up, no obvious drainage on the dressing. LABS: White count 14.1, creatinine 1.05. DIAGNOSTIC IMPRESSION AND PLAN: Patient with bilateral diabetic foot wound and secondary cellulitis. Previous culture positive for Citrobacter. Patient covered with Rocephin. Finish therapy with oral Cipro. Local wound care with Aquacel dressing. [facility]. MMODL / IJN: [id number] /
[2020-02-16] MEDS: MONTELUKAST 10 MG TAB PO SCH (20:56)
[2020-02-16] MEDS: PANTOPRAZOLE 40 MG TABLET PO SCH (20:56)
[2020-02-16] MEDS: ATORVASTATIN 80 MG TAB PO SCH (20:56)
[2020-02-16 21:46] LABS: Glucose,Whole Blood 243 mg/dL (75-99)
--- NOTE | 2020-02-16 23:29 | PN ---
PROGRESS NOTE Discussed her case further. Sodium is into the 130s. She will want to go home tomorrow. Continues on oral antibiotics for her wound infections in her feet. Follow up in the wound clinic. Continue with fluid restrictions at home. Home medicines are reviewed with her as well as diabetic medications reviewed with her. Sugars are better on her Glucophage, which she started a couple of days ago. CARDIOVASCULAR: S1, S2. LUNGS: Clear. GI: Soft. Distended due to obesity. HEMATOLOGY: Negative Homans. Legs are wrapped. ASSESSMENT: 1. Hyponatremia, severe in nature. Unclear etiology. 2. Diabetic wound infections of the feet. 3. Irritable bowel syndrome. 4. History of coronary artery disease with stents. 5. Dyslipidemia. 6. Chronic obstructive pulmonary disease. Please see further orders. Discharge home in the morning. MMODL / IJN: [id number] /
[2020-02-17] MEDS: HEPARIN SODIUM,PORCINE 5,000 UNIT/ML 1 ML VIAL SQ SCH ×2 (04:11→12:20)
[2020-02-17] MEDS: HYDROcodone/APAP 7.5-325MG 1 EACH TAB PO PRN (06:21)
[2020-02-17 06:54] LABS: Glucose,Whole Blood 173 mg/dL (75-99)
[2020-02-17] MEDS: metFORMIN 500 MG TAB PO SCH (06:59)
[2020-02-17] MEDS: INSULIN ASPART (NovoLOG) 100 UNIT/ML VIAL SQ SCH ×2 (07:00→12:19)
[2020-02-17] MEDS: FORMOTEROL FUMARATE 20 MCG/2 ML NEBU INHALATION SCH (07:26)
[2020-02-17] MEDS: IPRATROPIUM 0.5 MG/2.5 ML NEBU INHALATION SCH ×2 (07:26→10:37)
--- NOTE | 2020-02-17 09:29 | P.PN ---
Subjective patient is seen in follow-up for hyponatremia. Sodium level stable at 131 as of yesterday. She is maintained on fluid restriction. Oral intake is gradually improving. No vomiting or diarrhea. Vital signs are stable. General: The patient appeared well nourished and normally developed. HEENT: Head exam is unremarkable. Neck is without jugular venous distension. LUNGS: Lungs are clear to auscultation and percussion. Breath sounds decreased. HEART: Rate and Rhythm are regular. ABDOMEN: soft, nontender. EXTREMITITES: No clubbing, cyanosis, or edema. Objective - Vital Signs Vital signs: Vital Signs Temp 98.4 F 02/17/20 04:00 Pulse 61 02/17/20 07:48 Resp 16 02/17/20 04:00 BP 154/46 02/17/20 04:00 Pulse Ox 98 02/17/20 04:00 Intake & Output 02/16/20 02/17/20 02/17/20 18:59 06:59 18:59 Intake Total 350 Output Total 800 1100 Balance -450 -1100 Intake: Oral 350 Output: Urine 800 1100 Other: Voiding Method Indwelling Catheter Toilet # Voids 1 # Bowel Movements 1 - Labs CBC & Chem 7: 02/16/20 04:08 02/16/20 04:08 Labs: Abnormal Lab Results - Last 24 Hours (Table) 02/16/20 02/16/20 02/16/20 Range/Units 12:07 16:52 21:44 POC Glucose (mg/dL) 154 H 170 H 243 H (75-99) mg/dL 02/17/20 Range/Units 06:52 POC Glucose (mg/dL) 173 H (75-99) mg/dL Microbiology - Last 24 Hours (Table) 02/12/20 16:58 Blood Culture - Preliminary Blood No Growth after 96 hours Assessment and Plan Plan: assessment: 1. Hyponatremia. Euvolemic. 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 Status post sodium chloride tablets. Sodium level 131 as of yesterday. no evidence of adrenal insufficiency. TSH normal. 2. Acute kidney injury secondary to ATN secondary to hypotension. Stable. 3. Benign hypertension. Controlled. 4. Hyperkalemia secondary to acute kidney injury and Aldactone. Resolved. plan: encourage oral intake, particularly protein. I advised her to maintain less than 40 ounce fluid restriction per day upon discharge. Repeat BMP 2-3 days postdischarge. Follow up outpatient in 1-2 weeks.
[2020-02-17] MEDS: rOPINIRole HCL 4 MG TABLET PO SCH (10:06)
[2020-02-17] MEDS: METOPROLOL TARTRATE 25 MG TAB PO SCH (10:11)
[2020-02-17] MEDS: FERROUS SULFATE 325 MG TAB PO SCH (10:12)
[2020-02-17] MEDS: DICYCLOMINE 10 MG CAP PO SCH (10:12)
[2020-02-17] MEDS: METOCLOPRAMIDE 10 MG TAB PO SCH ×2 (10:12→12:20)
[2020-02-17] MEDS: PANTOPRAZOLE 40 MG TABLET PO SCH (10:12)
[2020-02-17] MEDS: MAGNESIUM OXIDE 400 MG TAB PO SCH (10:12)
[2020-02-17] MEDS: CLOPIDOGREL 75 MG TAB PO SCH (10:12)
[2020-02-17] MEDS: RANOLAZINE 500 MG TAB.ER.12H PO SCH (10:13)
[2020-02-17] MEDS: ISOSORBIDE MONONITRATE ER 60 MG TAB.ER.24H PO SCH (10:14)
[2020-02-17] MEDS: SPIRONOLACTONE 25 MG TAB PO SCH (10:18)
[2020-02-17] MEDS: CHOLECALCIFEROL 1,000 UNIT TAB PO SCH (10:18)
[2020-02-17] MEDS: ASPIRIN 81 MG PO SCH (10:18)
[2020-02-17] MEDS: hydrALAZINE HCL 25 MG TAB PO SCH (10:18)
[2020-02-17] MEDS: polyethylene glycoL 3350 17 GM POWD.PACK PO SCH (10:21)
[2020-02-17 11:09] VITALS: RESP 20
[2020-02-17 11:53] LABS: Glucose,Whole Blood 183 mg/dL (75-99)
[2020-02-17 12:56] VITALS: BP 140/54; PULSE 58; TEMP 99
--- NOTE | 2020-03-03 14:03 | DS ---
DISCHARGE SUMMARY DATE OF ADMISSION: 02/09/2020. DISCHARGE DATE: 02/17/2020. MEDICATIONS: 1. Vitamin D 1000 units daily. 2. Plavix 75 mg daily. 3. Singulair 10 mg daily. 4. Nitroglycerin sublingual p.r.n. 5. Imdur 60 mg daily. 6. Bentyl 10 mg daily. 7. Trilogy 1 puff daily. 8. NovoLog 70/30 30 units subcu b.i.d. 9. Trulicity 1.5 mg weekly. 10.Reglan 10 mg t.i.d. 11.Lasix 40 mg b.i.d. 12.[place] 7.5 q.6 hours. 13.Requip 4 mg t.i.d. 14.Mag oxide 400 daily. 15.Ranexa 500 mg q.12 hours. 16.Omeprazole 40 daily. 17.Perforomist 20 mcg b.i.d. 18.Zestril 20 mg b.i.d. 19.Metformin 1000 b.i.d. 20.Metoprolol 50 b.i.d. 21.Ferrous sulfate 325 daily. 22.Cipro 500 b.i.d. 23.Lipitor 80 q.h.s. 24.Aspirin 325 daily. 25.Aldactone 25 daily. 26.Hydralazine 25 b.i.d. 27.Metoprolol 25 b.i.d. CONDITION: Stable. PROGNOSIS: Guarded. Ambulate as tolerated. HISTORY: This is a 74-year-old white female who is seen for followup for hyponatremia. Sodium was 131. Maintain fluid restriction. We are not sure why she has severe hyponatremia into the 120s. She had a white count of 14.1, hemoglobin 9.7, BUN of 18, and creatinine 1.05. ASSESSMENT: Hyponatremia, euvolemic, etiology is SIADH. She was given sodium chloride tablets for few days. Sodium was 131. No adrenal insufficiency was seen. TSH was normal. We thought she had kidney injury due to ATN, hypotension, benign hypertension, hyperkalemia secondary to acute kidney injury. On Aldactone. Resolved. Encourage oral fluid intake and protein, 40 ounce fluid restriction. Follow up BMP next 2-3 days on discharge. MMODL / IJN: [id number] /
== END 2020-02-17 13:49 | disposition home or self-care (01) | DRG 391 ==
LOC: EC 09:37 → 3SCARD 12:35 → 2SICU 02-12 13:44
PROVIDERS: ADMIT Family Medicine; ATTEND Family Medicine
PROC: 05HF33Z Insertion of Infusion Device into Left Cephalic Vein, Percutaneous Approach (ICD-10-PCS; principal; 2020-02-13)
DX: K21.00 Gastro-esophageal reflux disease with esophagitis, without bleeding (principal); A41.9 Sepsis, unspecified organism; I50.43 Acute on chronic combined systolic (congestive) and diastolic (congestive) heart failure; N17.0 Acute kidney failure with tubular necrosis; E22.2 Syndrome of inappropriate secretion of antidiuretic hormone; E27.40 Unspecified adrenocortical insufficiency; I13.0 Hypertensive heart and chronic kidney disease with heart failure and stage 1 through stage 4 chronic kidney disease, or unspecified chronic kidney disease; I82.501 Chronic embolism and thrombosis of unspecified deep veins of right lower extremity; J96.11 Chronic respiratory failure with hypoxia; L03.116 Cellulitis of left lower limb; L03.115 Cellulitis of right lower limb; M86.9 Osteomyelitis, unspecified; D50.9 Iron deficiency anemia, unspecified; E11.40 Type 2 diabetes mellitus with diabetic neuropathy, unspecified; E11.621 Type 2 diabetes mellitus with foot ulcer; E66.01 Morbid (severe) obesity due to excess calories; E78.5 Hyperlipidemia, unspecified; E87.5 Hyperkalemia; F40.240 Claustrophobia; G25.81 Restless legs syndrome; G47.33 Obstructive sleep apnea (adult) (pediatric); I25.10 Atherosclerotic heart disease of native coronary artery without angina pectoris; N18.30 Chronic kidney disease, stage 3 unspecified; E11.22 Type 2 diabetes mellitus with diabetic chronic kidney disease; J44.9 Chronic obstructive pulmonary disease, unspecified; K57.30 Diverticulosis of large intestine without perforation or abscess without bleeding; K58.9 Irritable bowel syndrome, unspecified; L97.522 Non-pressure chronic ulcer of other part of left foot with fat layer exposed; M81.0 Age-related osteoporosis without current pathological fracture; T44.7X5A Adverse effect of beta-adrenoreceptor antagonists, initial encounter; M19.90 Unspecified osteoarthritis, unspecified site; R00.1 Bradycardia, unspecified; L97.512 Non-pressure chronic ulcer of other part of right foot with fat layer exposed; I25.2 Old myocardial infarction; Z68.38 Body mass index [BMI] 38.0-38.9, adult; Z88.1 Allergy status to other antibiotic agents; Z95.5 Presence of coronary angioplasty implant and graft; Z87.891 Personal history of nicotine dependence; Z82.49 Family history of ischemic heart disease and other diseases of the circulatory system; Z80.0 Family history of malignant neoplasm of digestive organs; Z79.899 Other long term (current) drug therapy; Z87.19 Personal history of other diseases of the digestive system; Z79.02 Long term (current) use of antithrombotics/antiplatelets; Z79.4 Long term (current) use of insulin; Z79.82 Long term (current) use of aspirin; Z99.81 Dependence on supplemental oxygen
CPT/HCPCS: 36410; 36415; 71046; 71275; 74176; 76937; 80048; 80053; 80061; 81001; 82533; 83036; 83690; 83735; 83930; 83935; 84132; 84295; 84300; 84443; 84484; 85025; 85379; 85610; 85730; 87040; 87077; 87086; 87186; 93005; 93970; 94640; 96361; 96365; 96366; 96375; 96376; 99285

== ENCOUNTER 2020-04-12 01:31 | Inpatient (IN) | payer MEDICARE, OTHER ==
[2020-04-12] MEDS ORDERED: NITROGLYCERIN OINT 1 INCH/GM PACKET TOPICAL STA (01:50)
[2020-04-12] MEDS ORDERED: NITROGLYCERIN SL TABS 0.4 MG TAB SUBLINGUAL STA (01:50)
[2020-04-12] MEDS ORDERED: MORPHINE SULFATE 2 MG/ML SYRINGE IVP STA (01:50)
[2020-04-12] MEDS ORDERED: ASPIRIN 81 MG PO STA (01:50)
[2020-04-12] MEDS ORDERED: MORPHINE SULFATE 4 MG/ML SYRINGE IV STA ×2 (01:50→02:44)
--- NOTE | 2020-04-12 02:02 | ED ---
Chest Pain HPI - General Chief Complaint: Chest Pain Stated Complaint: Chest pain Time Seen by Provider: 04/12/20 01:41 Source: patient Mode of arrival: wheelchair Limitations: no limitations - History of Present Illness Initial Comments: This patient is a 74-year-old woman who presents to be evaluated for substernal chest pain that is been going on since the morning. She states that she was having resolution of the pain with nitroglycerin, and she has taken a total of about 5 nitroglycerin over the course of the day. The pain as a heavy feeling. She has radiation to the left arm. She states that that seemed to stop working tonight. She also has noted the pain is a little better with standing and it seems to be worse with lying down. The patient also feels a little short of breath. MD Complaint: chest pain Onset/Timin -: hour(s) Onset: during rest Pain Location: substernal Pain Radiation: LUE Severity: severe Quality: heaviness Consistency: intermittent Improves With: nitroglycerin, other (Standing) Worsens With: supine Anginal Symptoms: dyspnea Treatments Prior to Arrival: nitroglycerin - Related Data Home Medications Medication Instructions Recorded Confirmed Cholecalciferol [Vitamin D3 (25 1,000 unit PO DAILY 02/26/15 04/12/20 Mcg = 1000 Iu)] Clopidogrel [Plavix] 75 mg PO DAILY 09/05/15 04/12/20 [place]-3 Fatty Acids [[place]-3] 2,000 mg PO DAILY 09/29/18 04/12/20 Dicyclomine [Bentyl] 10 mg PO DAILY 04/16/19 04/12/20 Dulaglutide [Trulicity] 1.5 mg SQ KISER 08/15/19 04/12/20 Insulin Aspart Protam & Aspart 30 unit SQ BID 08/15/19 04/12/20 [NovoLOG MIX 70-30 Flexpen] Metoclopramide [Reglan] 10 mg PO QID PRN 08/15/19 04/12/20 Magnesium Oxide 400 mg PO DAILY 11/02/19 04/12/20 rOPINIRole HCL [Requip] 4 mg PO TID 11/02/19 04/12/20 Formoterol Fumarate [Perforomist] 20 mcg INHALATION RT-BID 11/26/19 04/12/20 levalbuterol HCL [Levalbuterol HCl] 0.63 mg INHALATION RT-QID 11/26/19 04/12/20 Atorvastatin [Lipitor] 80 mg PO HS 02/09/20 04/12/20 Ferrous Sulfate [Iron (65 MG 325 mg PO DAILY 02/09/20 04/12/20 Elemental)] metFORMIN HCL 1,000 mg PO BID 02/09/20 04/12/20 Furosemide [Lasix] 40 mg PO BID@0900,1500 04/12/20 04/12/20 HYDROcodone/APAP 7.5-325MG [[place] 1 tab PO QID 04/12/20 04/12/20 7.5-325] Metoprolol Tartrate [Lopressor] 50 mg PO BID 04/12/20 04/12/20 Nitroglycerin Sl Tabs [Nitrostat] 0.4 mg SL Q5M PRN 04/12/20 04/12/20 Sucralfate [Carafate] 1 gm PO BID 04/12/20 04/12/20 amLODIPine [Norvasc] 10 mg PO DAILY 04/12/20 04/12/20 Previous Rx's Medication Instructions Recorded Montelukast Sodium [Singulair] 10 mg PO HS #30 tab 10/25/15 Acetaminophen Tab [Tylenol] 500 mg PO Q6HR PRN tab 06/23/19 Omeprazole [PriLOSEC] 40 mg PO HS #30 cap 11/08/19 Ranolazine [Ranexa] 500 mg PO Q12HR #60 tab.er.12h 11/08/19 hydrALAZINE HCL [Apresoline] 25 mg PO BID 30 Days #60 tab 02/16/20 Aspirin 81 mg PO DAILY chew 04/16/20 Allergies Allergy/AdvReac Type Severity Reaction Status Date / Time amoxicillin [From Augmentin] Allergy Rash/Hives Verified 04/12/20 07:18 clavulanic acid Allergy Rash/Hives Verified 04/12/20 07:18 [From Augmentin] metronidazole [From Flagyl] Allergy Nausea & Verified 04/12/20 07:18 Vomiting adhesive tape AdvReac bruises,"paper Verified 04/12/20 07:18 tape is ok" albuterol AdvReac Rapid Verified 04/12/20 07:18 Heart Rate stress test injection Allergy Anaphylaxis Uncoded 11/27/20 07:18 Review of Systems ROS Statement: Those systems with pertinent positive or pertinent negative responses have been documented in the HPI. ROS Other: All systems not noted in ROS Statement are negative. Constitutional: Denies: fever, chills, weakness Respiratory: Reports: dyspnea. Denies: cough, hemoptysis Cardiovascular: Reports: chest pain. Denies: palpitations, dyspnea on exertion, orthopnea, edema, syncope Gastrointestinal: Denies: abdominal pain, nausea, vomiting, diarrhea Genitourinary: Denies: dysuria, hematuria Musculoskeletal: Denies: back pain Skin: Denies: rash Neurological: Denies: headache, weakness, numbness EKG Findings - EKG Results: EKG: interpreted by ERMD, sinus rhythm, normal axis - Blocks, [place], Hypertrophy, ST Abn: AV and intraventricular conduction: 1 AV block Repolarization changes or abnormalities: ST suggestive of injury - ID, Pacemaker, Normal: Myocardial infarction: anterior ID (old age or indeterminate) Past Medical History Past Medical History: Asthma, Coronary Artery Disease (CAD), Heart Failure, COPD, Diabetes Mellitus, Deep Vein Thrombosis (DVT), GERD/Reflux, Hyperlipidemia, Hypertension, Myocardial Infarction (ID), Osteoarthritis (OA), Pneumonia, Renal Disease, Skin Disorder, Sleep Apnea/CPAP/BIPAP Additional Past Medical History / Comment(s): Pt states just admitted to [facility] as a direct admit for bilateral foot sores/infection and they determined she did not have osteomyelitis. 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, cardiomyopathy, NIDDM type II, neuropathy bilateral feet, bilateral diabetic foot ulcers, past cellulitis, pneumonias, past R lung pne with empyema/surgery, gastritis, colitis/frequent diarrhea, benign colon polyps, renal disease stage III, IRA with no device used d/t severe clausterphobia, home oxygen at 2L/NC at HS, occasional lower leg edema, RLS, Last Myocardial Infarction Date:: 2019 History of Any Multi-Drug Resistant Organisms: None Reported Past Surgical History: Appendectomy, Breast Surgery, Cholecystectomy, Heart Catheterization, Heart Catheterization With Stent Additional Past Surgical History / Comment(s): PCI with stents, R lung thoracotomy/decortication for empyema, bilateral feet/sores debrided, L breast benign bx, colonoscopy/benign polypectomy, EGD Past Anesthesia/Blood Transfusion Reactions: No Reported Reaction Additional Past Anesthesia/Blood Transfusion Reaction / Comment(s): severe claustrophobia Date of Last Stent Placement:: 11/27/19 Past Psychological History: No Psychological Hx Reported Smoking Status: Former smoker Past Alcohol Use History: None Reported Past Drug Use History: None Reported - Past Family History Brother(s) Family Medical History: Cancer Additional Family Medical History / Comment(s): Colon cancer Father Family Medical History: Chest Pain / Angina Additional Family Medical History / Comment(s): Father of a ID at the age of 77yrs. Mother Family Medical History: Chest Pain / Angina Additional Family Medical History / Comment(s): Mother of a ID at the age of 74yrs. General Exam Limitations: no limitations General appearance: alert, in no apparent distress Head exam: Present: atraumatic, normocephalic Eye exam: Present: normal appearance. Absent: scleral icterus, conjunctival injection ENT exam: Present: normal oropharynx Neck exam: Present: normal inspection Respiratory exam: Present: wheezes. Absent: respiratory distress, rales, rhonchi, stridor, chest wall tenderness, accessory muscle use Cardiovascular Exam: Present: regular rate, normal rhythm, normal heart sounds. Absent: systolic murmur, diastolic murmur, rubs, gallop GI/Abdominal exam: Present: soft. Absent: distended, tenderness, guarding, rebound, rigid, mass Extremities exam: Present: normal inspection, normal capillary refill. Absent: pedal edema, calf tenderness Back exam: Present: normal inspection. Absent: CVA tenderness (R), CVA tenderness (L) Neurological exam: Present: alert Skin exam: Present: warm, dry, intact, normal color. Absent: rash Course Vital Signs 04/12/20 04/12/20 04/12/20 01:33 01:42 02:23 Temperature 98.1 F Pulse Rate 100 107 H Respiratory 18 20 Rate Blood Pressure 177/79 162/96 177/107 O2 Sat by Pulse 99 100 Oximetry 04/12/20 04/12/20 04/12/20 02:45 03:15 04:30 Temperature Pulse Rate 94 94 90 Respiratory 18 19 18 Rate Blood Pressure 183/79 167/80 124/73 O2 Sat by Pulse 95 97 96 Oximetry 04/12/20 04/12/20 04/12/20 04:42 06:24 08:12 Temperature Pulse Rate 88 85 Respiratory 16 18 Rate Blood Pressure 164/77 164/79 138/67 O2 Sat by Pulse 92 L 97 Oximetry 04/12/20 09:47 Temperature 98 F Pulse Rate 85 Respiratory 18 Rate Blood Pressure 150/87 O2 Sat by Pulse 96 Oximetry Chest Pain MDM - MDM Patient 74-year-old lady with chest pain concerning for acute coronary syndrome. Symptoms have improved with medication and her initial troponin negative. Case is discussed with cardiology who will see the patient. Critical Care Time Critical Care Time: Yes (35 minutes) Disposition Clinical Impression: Acute coronary syndrome Disposition: ADMITTED IP TO THIS HOSP Condition: Serious
[2020-04-12] MEDS ORDERED: NITROGLYCERIN-D5W PMX 50 MG in DEXTROSE/WATER 1 250ML.BAG IV ONE (02:23)
[2020-04-12] MEDS ORDERED: HEPARIN SODIUM,PORCINE 5,000 UNIT/ML 1 ML VIAL IV PRN (02:25)
[2020-04-12] MEDS ORDERED: HEPARIN SODIUM,PORCINE 5,000 UNIT/ML 1 ML VIAL IV ONE (02:25)
[2020-04-12] MEDS ORDERED: HEPARIN SOD,PORK IN 0.45% NACL 25,000 UNIT in 0.45% NACL 1 250ML.BAG IV SCH (02:30)
[2020-04-12 02:33] LABS: Anisocytosis Slight; Basophils # (A) 0.1 k/uL (0-0.2); Basophils % (A) 0 %; Eosinophils # (A) 0.2 k/uL (0-0.7); Eosinophils % (A) 1 %; HGB 9.9 gm/dL (11.4-16.0); Hypochromasia Moderate; Lymphocytes # (A) 3.8 k/uL (1.0-4.8); Lymphocytes % (A) 27 %; MCH 22.1 pg (25.0-35.0); MCHC 31.9 g/dL (31.0-37.0); MCV 69.3 fL (80.0-100.0); Mean Platelet Volume 7.4; Microcytosis Marked; Monocytes % (A) 7 %; Neutrophils # (A) 9.2 k/uL (1.3-7.7); Neutrophils % (A) 63 %; Platelet Count 520 k/uL (150-450); Poikilocytosis Slight; RBC 4.47 m/uL (3.80-5.40); RDW 18.7 % (11.5-15.5); WBC 14.5 k/uL (3.8-10.6)
[2020-04-12 02:39] LABS: Calcium 9.9 mg/dL (8.4-10.2); Magnesium 1.6 mg/dL (1.6-2.3); Total Bilirubin 0.4 mg/dL (0.2-1.3); Total Protein 7.3 g/dL (6.3-8.2)
[2020-04-12 02:42] LABS: INR 0.9 (<1.2); Partial Thromboplastin Time 22.3 sec (22.0-30.0); Prothrombin Time 9.4 sec (9.0-12.0)
[2020-04-12] MEDS ORDERED: INSULIN REGULAR 100 UNIT/ML VIAL SQ STA (02:43)
--- NOTE | 2020-04-12 02:48 | XR ---
EXAM: XR Chest, 1 View CLINICAL HISTORY: ITS.REASON XR Reason: chest pain TECHNIQUE: Frontal view of the chest. COMPARISON: CXR 02/09/20 FINDINGS: Lungs: Bilateral interstitial opacities. Pleural space: No significant pleural effusion. No pneumothorax. Heart: Mild cardiomegaly. Pulmonary vascular congestion. Mediastinum: Unremarkable. Bones/joints: No acute osseous findings. IMPRESSION: 1. Mild cardiomegaly and pulmonary vascular congestion. 2. Bilateral interstitial opacities may reflect edema or pneumonia.
[2020-04-12 02:52] LABS: D-Dimer 1.42 mg/L FEU (<0.60)
[2020-04-12] MEDS ORDERED: SODIUM CHLORIDE 0.9% 500 ML 500 ML IV STA (03:09)
[2020-04-12] MEDS ORDERED: LABETALOL 5 MG/ML VIAL MDV IVP STA (03:22)
[2020-04-12] MEDS ORDERED: HYDROmorphone 0.5 MG/0.5 ML SYRINGE IVP STA (03:32)
[2020-04-12] MEDS ORDERED: SODIUM CHLORIDE 0.9% 1,000 ML in EMPTY BAG 1 BAG IV ONE (08:41)
[2020-04-12] MEDS ORDERED: NITROGLYCERIN SL TABS 0.4 MG TAB SUBLINGUAL PRN ×2 (08:41→12:46)
[2020-04-12] MEDS ORDERED: ALPRAZolam 0.25 MG TAB PO PRN (08:41)
[2020-04-12] MEDS ORDERED: ALPRAZolam 0.5 MG TAB PO PRN (08:41)
[2020-04-12] MEDS ORDERED: ATORVASTATIN 80 MG TAB PO STA (08:41)
[2020-04-12] MEDS: SODIUM CHLORIDE 0.9% 1,000 ML IV SCH ×2 (08:56→14:50)
[2020-04-12] MEDS: ASPIRIN 325 MG TAB PO STA ×2 (08:56→09:13)
[2020-04-12] MEDS ORDERED: FUROSEMIDE 40 MG TAB PO SCH (09:00)
[2020-04-12] MEDS ORDERED: hydrALAZINE HCL 25 MG TAB PO SCH (09:00)
[2020-04-12] MEDS ORDERED: SPIRONOLACTONE 25 MG TAB PO SCH (09:00)
[2020-04-12] MEDS ORDERED: lisinopriL 20 MG TAB PO SCH (09:00)
[2020-04-12] MEDS ORDERED: ISOSORBIDE MONONITRATE ER 60 MG TAB.ER.24H PO SCH (09:00)
[2020-04-12] MEDS ORDERED: CLOPIDOGREL 75 MG TAB PO SCH (09:00)
[2020-04-12] MEDS: amLODIPine 10 MG TAB PO SCH (09:13)
[2020-04-12] MEDS ORDERED: LIDOCAINE 1% INJ 10MG/ML (20 ML MDV) ONE (10:00)
[2020-04-12] MEDS ORDERED: IV FLUID CONTINUATION 1,000 ML IV ONE (10:09)
[2020-04-12] MEDS ORDERED: fentaNYL (PF) 50 MCG/ML 2 ML AMP ONE (10:11)
[2020-04-12] MEDS ORDERED: fentaNYL (PF) 50 MCG/ML 2 ML AMP IV ONE (10:25)
[2020-04-12] MEDS ORDERED: MIDAZOLAM 2 MG/2 ML VIAL IV ONE (10:25)
[2020-04-12] MEDS ORDERED: LIDOCAINE 1% INJ 10MG/ML (20 ML MDV) SQ ONE (10:26)
--- NOTE | 2020-04-12 11:02 | P.CRDCN ---
History of Present Illness Consult date: 04/12/20 History of present illness: CHIEF COMPLAINT: Chest pain HISTORY OF PRESENT ILLNESS: This is a 74-year old female with a past medical history significant for coronary artery disease, congestive heart failure, COPD, diabetes mellitus, hypertension, hyperlipidemia, osteoarthritis, and GERD. Patient follows in the office with Dr. Mccullough. We have been asked to see the patient in consultation for chest pain. Patient states she has been having chest pain since early this morning. She states the pain is in the middle of her chest and radiated down her arm. She describes the pain as a heavy pressure. The patient did take subcu with some improvement in her chest pain. Patient underwent a cardiac cath and November 2019 with stent placement to the proximal LAD. Echocardiogram from November 2019 reveals EF 30-35%, LV wall hy pokinesis, mild mitral regurgitation, and mild tricuspid regurgitation. DIAGNOSTICS: EKG reveals sinus rhythm with ST depression in Lead II, AVF, and V4 through V6 Chest xray mild cardiomegaly and pulmonary vascular congestion. Bilateral interstitial bases may reflect edema or pneumonia Laboratory data: WBC 14.5. Hemoglobin 9.9. Platelet count 520. D-dimer 1.42. Sodium 126. Potassium 5.0. BUN 43. Creatinine 1.45. BNP 1020. Troponin 0.012. 0.202. Current home cardiac medications include lisinopril 20 mg twice a day, hydralazine 25 mg twice a day, Norvasc 10 mg daily, Aldactone 25 mg daily, Toprol 50 mg twice a day, Imdur 60mg daily, Lasix 40 mg twice a day, Plavix 75 mg daily, Lipitor 80 mg daily, aspirin 3 and 25 mg daily REVIEW OF SYSTEMS: At the time of my exam: CONSTITUTIONAL: Denies fever or chills. HEENT: Denies blurred vision, vision changes, or eye pain. Denies hemoptysis CARDIOVASCULAR: Denies chest pain, orthopnea, PND or palpitations RESPIRATORY: No shortness of breath. GASTROINTESTINAL: Denies abdominal pain. Denies nausea or vomiting. HEMATOLOGIC: Denies bleeding disorders. GENITOURINARY: Denies any blood in urine. SKIN: Denies pruitis. Denies rash. PHYSICAL EXAM: VITAL SIGNS: Reviewed. GENERAL: Well-developed in no acute distress. HEENT: Head is normocephalic. Pupils are equal, round. Sclerae anicteric. Mucous membranes of the mouth are moist. Neck supple. No JVD or thyromegaly LUNGS: Respirations even and unlabored. Lungs essentially clear to auscultation bilaterally. HEART: Regular rate and rhythm. S1 and S2 heard. ABDOMEN: Soft. Nondistended. Nontender. EXTREMITIES: Normal range of motion. No clubbing or cyanosis. Peripheral pulses intact. Trace bilateral lower extremity edema NEUROLOGIC: Awake and alert. Oriented x 3. ASSESSMENT: Non-STEMI Acute kidney injury History of coronary artery disease with previous PCI to LAD, October 2019 History of congestive heart failure Ischemic cardiomyopathy, EF 30-35% Diabetes mellitus Hypertension Hyperlipidemia PLAN: Continue IV heparin drip Continue IV nitro Resume home medications. Hold Lasix, Aldactone, and lisinopril secondary to JAZZ Increase hydralazine to 50mg 3 times a day Patient to undergo cardiac cath today with Dr. Mccullough Further recommendations pending patient course Nurse practitioner note has been reviewed by physician. Signing provider agrees with the documented findings, assessment, and plan of care. Past Medical History Past Medical History: Asthma, Coronary Artery Disease (CAD), Heart Failure, COPD, Diabetes Mellitus, Deep Vein Thrombosis (DVT), GERD/Reflux, Hyperlipidemia, Hypertension, Myocardial Infarction (CO), Osteoarthritis (OA), Pneumonia, Renal Disease, Skin Disorder, Sleep Apnea/CPAP/BIPAP Additional Past Medical History / Comment(s): Pt states just admitted to [facility] as a direct admit for bilateral foot sores/infection and they determined she did not have osteomyelitis. Other hx: MIs with last CO 11/2019 with cardiogenic shock/pulmonary edema/respiratory failure, cardiomyopathy, NIDDM type II, neuropathy bilateral feet, bilateral diabetic foot ulcers, past cellulitis, pneumonias, past R lung pne with empyema/surgery, gastritis, colitis/frequent diarrhea, benign colon polyps, renal disease stage III, IRA with no device used d/t severe clausterphobia, home oxygen at 2L/NC at HS, occasional lower leg edema, RLS, Last Myocardial Infarction Date:: 2019 History of Any Multi-Drug Resistant Organisms: None Reported Past Surgical History: Appendectomy, Breast Surgery, Cholecystectomy, Heart Catheterization, Heart Catheterization With Stent Additional Past Surgical History / Comment(s): PCI with stents, R lung thoracotomy/decortication for empyema, bilateral feet/sores debrided, L breast benign bx, colonoscopy/benign polypectomy, EGD Past Anesthesia/Blood Transfusion Reactions: No Reported Reaction Additional Past Anesthesia/Blood Transfusion Reaction / Comment(s): severe cla ustrophobia Date of Last Stent Placement:: 11/27/19 Past Psychological History: No Psychological Hx Reported Smoking Status: Former smoker Past Alcohol Use History: None Reported Past Drug Use History: None Reported - Past Family History Brother(s) Family Medical History: Cancer Additional Family Medical History / Comment(s): Colon cancer Father Family Medical History: Chest Pain / Angina Additional Family Medical History / Comment(s): Father of a CO at the age of 77yrs. Mother Family Medical History: Chest Pain / Angina Additional Family Medical History / Comment(s): Mother of a CO at the age of 74yrs. Medications and Allergies Home Medications Medication Instructions Recorded Confirmed Type Cholecalciferol [Vitamin D3 (25 1,000 unit PO DAILY 02/26/15 04/12/20 History Mcg = 1000 Iu)] Clopidogrel [Plavix] 75 mg PO DAILY 09/05/15 04/12/20 History Montelukast Sodium [Singulair] 10 mg PO HS #30 tab 10/25/15 04/12/20 Rx [place]-3 Fatty Acids [[place]phi-3] 2,000 mg PO DAILY 09/29/18 04/12/20 History Isosorbide Mononitrate ER [Imdur] 60 mg PO DAILY #30 tab.er.24h 11/17/18 04/12/20 Rx Dicyclomine [Bentyl] 10 mg PO DAILY 04/16/19 04/12/20 History Acetaminophen Tab [Tylenol] 500 mg PO Q6HR PRN tab 06/23/19 04/12/20 Rx Dulaglutide [Trulicity] 1.5 mg SQ KISER 08/15/19 04/12/20 History Insulin Aspart Protam & Aspart 30 unit SQ BID 08/15/19 04/12/20 History [NovoLOG MIX 70-30 Flexpen] Metoclopramide [Reglan] 10 mg PO QID PRN 08/15/19 04/12/20 History Magnesium Oxide 400 mg PO DAILY 11/02/19 04/12/20 History rOPINIRole HCL [Requip] 4 mg PO TID 11/02/19 04/12/20 History Omeprazole [PriLOSEC] 40 mg PO HS #30 cap 11/08/19 04/12/20 Rx Ranolazine [Ranexa] 500 mg PO Q12HR #60 tab.er.12h 11/08/19 04/12/20 Rx Formoterol Fumarate [Perforomist] 20 mcg INHALATION RT-BID 11/26/19 04/12/20 History levalbuterol HCL [Levalbuterol HCl] 0.63 mg INHALATION RT-QID 11/26/19 04/12/20 History Aspirin EC [Ecotrin] 325 mg PO DAILY 02/09/20 04/12/20 History Atorvastatin [Lipitor] 80 mg PO HS 02/09/20 04/12/20 History Ferrous Sulfate [Iron (65 MG 325 mg PO DAILY 02/09/20 04/12/20 History Elemental)] metFORMIN HCL 1,000 mg PO BID 02/09/20 04/12/20 History Spironolactone [Aldactone] 25 mg PO DAILY 39 Days #39 tab 02/16/20 04/12/20 Rx hydrALAZINE HCL [Apresoline] 25 mg PO BID 30 Days #60 tab 02/16/20 04/12/20 Rx Furosemide [Lasix] 40 mg PO BID@0900,1500 04/12/20 04/12/20 History HYDROcodone/APAP 7.5-325MG [[place] 1 tab PO QID 04/12/20 04/12/20 History 7.5-325] Metoprolol Tartrate [Lopressor] 50 mg PO BID 04/12/20 04/12/20 History Nitroglycerin Sl Tabs [Nitrostat] 0.4 mg SL Q5M PRN 04/12/20 04/12/20 History Sucralfate [Carafate] 1 gm PO BID 04/12/20 04/12/20 History amLODIPine [Norvasc] 10 mg PO DAILY 04/12/20 04/12/20 History lisinopriL 20 mg PO BID 04/12/20 04/12/20 History Allergies Allergy/AdvReac Type Severity Reaction Status Date / Time amoxicillin [From Augmentin] Allergy Rash/Hives Verified 04/12/20 07:18 clavulanic acid Allergy Rash/Hives Verified 11/27/20 07:18 [From Augmentin] metronidazole [From Flagyl] Allergy Nausea & Verified 04/12/20 07:18 Vomiting adhesive tape AdvReac bruises,"paper Verified 04/12/20 07:18 tape is ok" albuterol AdvReac Rapid Verified 04/12/20 07:18 Heart Rate stress test injection Allergy Anaphylaxis Uncoded 04/12/20 07:18 Physical Exam Vitals: Vital Signs Temp Pulse Resp BP Pulse Ox 04/12/20 09:47 98 F 85 18 150/87 96 04/12/20 08:12 85 18 138/67 97 04/12/20 06:24 88 16 164/79 92 L 04/12/20 04:42 164/77 04/12/20 04:30 90 18 124/73 96 04/12/20 03:15 94 19 167/80 97 04/12/20 02:45 94 18 183/79 95 04/12/20 02:23 177/107 04/12/20 01:42 107 H 20 162/96 100 04/12/20 01:33 98.1 F 100 18 177/79 99 Intake and Output 04/11/20 04/12/20 04/12/20 22:59 06:59 14:59 Intake Total 6.9 Balance 6.9 Intake: Intake, IV Titration 6.9 Amount Nitroglycerin-D5w Pmx 50 6.9 mg In Dextrose/Water 1 250ml.bag @ 20 MCG/MIN 6 mls/hr IV .Q24H ONE Rx#: [id number] Other: Weight 109.769 kg Results 04/12/20 02:05 04/12/20 02:05 Cardiac Enzymes 04/12/20 04/12/20 04/12/20 Range/Units 02:05 02:05 05:14 AST 23 (14-36) U/L Troponin I <0.012 0.202 H* (0.000-0.034) ng/mL Coagulation 04/12/20 Range/Units 02:05 PT 9.4 (9.0-12.0) sec APTT 22.3 (22.0-30.0) sec CBC 04/12/20 Range/Units 02:05 WBC 14.5 H (3.8-10.6) k/uL RBC 4.47 (3.80-5.40) m/uL Hgb 9.9 L (11.4-16.0) gm/dL Hct 31.0 L (34.0-46.0) % Plt Count 520 H (150-450) k/uL Comprehensive Metabolic Panel 04/12/20 Range/Units 02:05 Sodium 126 L (137-145) mmol/L Potassium 5.0 (3.5-5.1) mmol/L Chloride 93 L (98-107) mmol/L Carbon Dioxide 21 L (22-30) mmol/L BUN 43 H (7-17) mg/dL Creatinine 1.45 H (0.52-1.04) mg/dL Glucose 234 H (74-99) mg/dL Calcium 9.9 (8.4-10.2) mg/dL AST 23 (14-36) U/L ALT 18 (4-34) U/L Alkaline Phosphatase 120 (38-126) U/L Total Protein 7.3 (6.3-8.2) g/dL Albumin 4.0 (3.5-5.0) g/dL Current Medications Generic Name Dose Route Start Last Admin Trade Name Freq PRN Reason Stop Dose Admin Alprazolam 0.25 mg 04/12/20 08:41 Alprazolam 0.25 Mg Tab PO Q6HR PRN Mild Anxiety Alprazolam 0.5 mg 04/12/20 08:41 Alprazolam 0.5 Mg Tab PO Q6HR PRN Moderate Anxiety Amlodipine Besylate 10 mg 04/12/20 09:00 04/12/20 09:13 Amlodipine 10 Mg Tab PO 10 mg DAILY [facility] Administration Aspirin 325 mg 04/13/20 09:00 Aspirin 325 Mg Tab PO DAILY [facility] Atorvastatin Calcium 80 mg 04/12/20 21:00 Atorvastatin 80 Mg Tab PO HS [facility] Clopidogrel Bisulfate 75 mg 04/12/20 09:00 Clopidogrel 75 Mg Tab PO DAILY [facility] Heparin Sodium (Porcine) 0 unit 04/12/20 02:25 Heparin Sodium,Porcine 5,000 Unit/Ml 1 Ml Vial IV PER PROTOCOL PRN Low PTT Protocol Hydralazine HCl 25 mg 04/12/20 09:00 Hydralazine Hcl 25 Mg Tab PO BID [facility] Nitroglycerin/Dextrose 50 mg/ 250 mls @ 6 mls/hr 04/12/20 02:23 04/12/20 03:43 IV Solution IV 04/13/20 02:22 40 mcg/min .Q24H ONE 12 mls/hr Titration Protocol 20 MCG/MIN Heparin Sodium/Sodium Chloride 250 mls @ 10 mls/hr 04/12/20 02:30 04/12/20 02:43 25,000 unit/ Sodium Chloride IV 9.11 units/kg/hr .Q24H ANDREW 10 mls/hr Administration Protocol 9.11 UNITS/KG/HR Sodium Chloride 1,000 mls @ 100 mls/hr 04/12/20 03:45 04/12/20 08:56 Saline 0.9% IV 100 mls/hr .Q10H ANDREW Administration Sodium Chloride 1,000 ml/ IV 1,000 mls @ 109.769 mls/hr 04/12/20 08:41 Solution IV 04/12/20 17:47 .Q9H7M ONE 1 ML/KG/HR Lisinopril 20 mg 04/12/20 09:00 Lisinopril 20 Mg Tab PO BID [facility]REW Metoprolol Tartrate 50 mg 04/12/20 09:00 Metoprolol Tartrate 50 Mg Tab PO BID [facility] Nitroglycerin 0.4 mg 04/12/20 08:41 Nitroglycerin Sl Tabs 0.4 Mg Tab SUBLINGUAL Q5M PRN Chest Pain Ranolazine 500 mg 04/12/20 09:00 Ranolazine 500 Mg Tab.Er.12h PO Q12HR [facility]REW Intake and Output 04/11/20 04/12/20 04/12/20 22:59 06:59 14:59 Intake Total 6.9 Balance 6.9 Intake: Intake, IV Titration 6.9 Amount Nitroglycerin-D5w Pmx 50 6.9 mg In Dextrose/Water 1 250ml.bag @ 20 MCG/MIN 6 mls/hr IV .Q24H ONE Rx#: [id number] Other: Weight 109.769 kg 04/12/20 02:05 04/12/20 02:05
[2020-04-12] MEDS ORDERED: BIVALIRUDIN BOLUS 250 MG/50 ML IV ONE (11:07)
[2020-04-12] MEDS ORDERED: BIVALIRUDIN 250 MG in SODIUM CHLORIDE 0.9% 50 ML IV ONE ×2 (11:08→11:45)
[2020-04-12] MEDS ORDERED: IOPAMIDOL-370 125ML BTL INJ ONE ×4 (11:15→12:21)
[2020-04-12] MEDS ORDERED: FUROSEMIDE 10 MG/ML 4 ML VIAL ONE ×2 (11:20→12:25)
[2020-04-12] MEDS: FUROSEMIDE 10 MG/ML 4 ML VIAL IV ONE ×2 (11:23→12:11)
[2020-04-12] MEDS ORDERED: FUROSEMIDE 10 MG/ML 4 ML VIAL IV ONE (12:25)
--- NOTE | 2020-04-12 12:35 | P.CARDCATH ---
Date of Procedure: 04/12/20 Preoperative Diagnosis: Unstable angina, non-STEMI Postoperative Diagnosis: Critical stenosis involving the ostium of the circumflex Procedure(s) Performed: Left heart catheterization with selective coronary arteriography. No LV gram Description of Procedure: HISTORY: This is a 74-year-old female with history of ischemic heart disease with previous stent placement of the RCA and also left anterior descending coronary artery. In November of this year patient had a repeat stent placement of the LAD for in-stent stenosis. Patient now presents to the hospital with complaints of recurrent chest pain and positive troponins suggestive of unstable angina. Patient is advised to have a cardiac catheterization for definitive diagnosis CONSENT:I have discussed the risks, benefits and alternative therapies for the above-mentioned procedure and for both sedation/analgesia as well as necessary blood product administration, if indicated, as they pertain to this patient. The patient has indicated understanding and acceptance of the risks and procedures discussed. PROCEDURE: Patient was brought to the lab in a fasting state. Patient was given some IV sedation. The right groin is infiltrated with lidocaine and right femoral artery was entered using Seldinger technique. A 6-Montserratian catheter was left in place and selective coronary arteriography was performed. Patient tolerated the procedure well. Patient is found to have critical stenosis involving the ostium of the circumflex. Patient went on to have stent placement by Dr. Hernandez Conscious Sedation: Versed 1mg Fentanyl 50 g Duration 20 minutes HEMODYNAMICS: . The aortic pressure is about 170/80. Left ventricular end- diastolic pressure was not measured SELECTIVE CORONARY ARTERIOGRAPHY: LEFT MAIN: Short and free of significant occlusive disease THE LEFT ANTERIOR DESCENDING CORONARY ARTERY: . Patent stent in the proximal portion. Rest of the LAD has mild diffuse disease with any critical lesions THE LEFT CIRCUMFLEX AND IS CORONARY ARTERY: 95-99% ostial stenosis followed by about 50% stenosis in the proximal portion. The rest of the circumflex is free of any significant lesions THE RIGHT CORONARY ARTERY: Heart selectively studied. Totally occluded on previous studies LEFT VENTRICULOGRAPHY: Not performed FINAL IMPRESSION: Critical lesion involving the ostium of the circumflex PLAN: Proceed with stent placement. Being done by Dr. Hernandez PROGNOSIS: Guarded
[2020-04-12] MEDS ORDERED: ATROPINE SULFATE 0.1 MG/ML 10ML SYRINGE IV PRN (12:46)
[2020-04-12] MEDS ORDERED: ZOLPIDEM 5 MG TAB PO PRN (12:46)
[2020-04-12] MEDS ORDERED: RX INFO: IV CONTRAST WAS GIVEN 1 EACH MISC MISCELLANE PRN (12:46)
--- NOTE | 2020-04-12 12:49 | HP ---
HISTORY AND PHYSICAL This is a 74-year-old white female with a past medical history of coronary artery disease, congestive heart failure, COPD, diabetes mellitus, hypertension, dyslipidemia, osteoarthritis, and GERD. She has taken 100 nitroglycerin over the past few days. She was supposed to get an outpatient stress test in the last few days. She woke up with chest pain radiating down her arm, heavy pressure. She had heart catheterization November 2019 with stent placed to the proximal LAD. Echo from November 2002 shows ejection fraction 30-35 percent, left ventricular wall hypokinesis, mild mitral regurgitation, mild tricuspid regurgitation. EKG shows ST depression in multiple leads. Chest x-ray, cardiomyopathy and pulmonary vascular congestion. Infiltrate, possibly edema or pneumonia. White count 14.5, hemoglobin is 9.9, platelets 520. D-dimer is 1.42. Sodium 126, potassium 5.0, creatinine 1.45, BUN 43. BNP 1020. Troponin 0.012 and then went to 0.202. MEDICATIONS: At home she takes lisinopril 20 b.i.d., hydralazine 25 b.i.d., Norvasc 10 daily, Aldactone 25 daily, Toprol 50 mg b.i.d.,Imdur 60 daily, Lasix 40 b.i.d., Plavix 75 mg daily, Lipitor 80 daily, aspirin 325 daily. REVIEW OF SYSTEM: Fourteen point review of systems is negative except for she has been treated for wound care at the dorsum of both the great big toes due to localized wounds and she has been admitted with different wound infections and chronic cellulitis of these feet twice in the last month. PHYSICAL EXAMINATION: VITAL SIGNS: Reviewed. GENERAL: She is well developed. BMI is 40. HEENT: Pupils equal, round, reactive. LUNGS: Scattered rhonchi and wheeze. HEART: S1, S2. No murmurs, rubs, gallops. ABDOMEN: Distended due to obesity. EXTREMITIES: Peripheral pulses are normal. She has a quarter-sized wounds about by half-inch deep on the dorsum of both great toes with limited surrounding redness. They appear clean with no purulent exudate. NEUROLOGIC: Cranial nerves are intact. ASSESSMENT: 1. Non STEMI. 2. Acute kidney injury secondary to prerenal renal failure. 3. History of coronary artery disease. She has a PCI to the LAD. 4. Sh has unstable angina. 5. History of congestive heart failure .. 6. Ischemic cardiomyopathy. 7. Diabetes mellitus. 8. Hypertension. 9. Dyslipidemia. 10.Heparin drip. 11.Nitroglycerin IV. 12.Hold lisinopril, aldactone and Lasix due to prerenal renal insufficiency. 13.Increase hydralazine to 50 t.i.d. She can have heart catheterization done as she took 100 nitroglycerin in the last 2 and half weeks. MMODL / IJN: [id number] /
[2020-04-12] MEDS ORDERED: SODIUM CHLORIDE 0.9% 1,000 ML IV SCH (13:00)
[2020-04-12] MEDS ORDERED: MORPHINE SULFATE 2 MG/ML SYRINGE IVP PRN (13:30)
--- NOTE | 2020-04-12 13:34 | PTCA ---
PERCUTANEOUSTRANS CORORONARY ANGIOGRAPHY Mrs Brand is a 74-year-old female with a known history of coronary artery disease status post multiple stenting, followed by Dr. Caro on a regular basis, who presented with symptoms of progressive dyspnea as well as symptoms of chest pain and troponin elevation. She underwent cardiac catheterization by Dr. Mccullough and was found to have critical stenosis involving the ostial left circumflex and ostial of the LAD. In view of that, recommendation made regarding angioplasty and stenting. The procedures, risks, and complications were discussed with the patient who is in full understanding and agreement. PROCEDURE: A 6-[place] FL4 guiding catheter was introduced into the system after cannulating the left main. A 0.014 balanced medium weight J-wire was advanced into the circumflex and positioned distally. Subsequently another 0.014 balanced medium weight J-wire was advanced in the LAD and positioned distally. Subsequent to that, a 2.5 x 12 NC Trek balloon was advanced and inflation in the left circumflex was performed up to 10 atmospheres. Following that the balloon was removed and a 3.0 x 15 mm Xience Aspen stent was advanced into the left circumflex and a 2.5 x 12 mm Trek balloon was advanced into the LAD. Subsequently, the left circumflex stent was deployed and post dilated to 16 atmospheres. Following that the balloon was removed and a 3.0 x 12 mm NC Emerge balloon was advanced into the left circumflex and one inflation at 14 atmospheres was done. Following that the balloon was removed and the 2.5 x 12 mm Trek balloon was advanced and inflation over the ostium of the left circumflex was done. Following that the balloon was removed and a 2.5 x 12 NC Trek balloon was advanced and inflation up to 14 atmospheres were done. Following that the balloon was removed and a 3.25 x 50 mm Xience Aspen stent was advanced into the LAD and positioned in the distal left main into the LAD. After removing the left circumflex wire, the stent was deployed, postdilated at 16 atmospheres. Following that the balloon was removed and a 3.5 x 8 mm NC Trek balloon was advanced in the distal left main and an inflation at 14 atmospheres was done. Following that the balloon was removed and the left circumflex was rewired using a 0.014 balanced medium weight J-wire. Subsequently, a 2.5 x 12 mm Trek balloon was advanced and inflation was done at the ostium. After removing that balloon, a 3.25 x 12 mm NC Trek balloon was advanced into the LAD and a 3.0 x 12 mm NC Emerge was advance into the Emerge, and a kissing balloon inflation was done at maximum of 14 atmospheres on both balloons. Following that, the balloon was removed and the intraventricular ultrasound, [place] [facility], was introduced in the left circumflex and images were obtained. Following that, the catheters were removed. The wire was removed. Images were obtained and repeated. Those images reveal stable successful stenting. At that point, the guiding catheter, the balloon and the guidewire were removed. The sheath was removed. Hemostasis was obtained with deployment of an Angio- Seal. There were no immediate complication. The patient was returned to room in stable condition. Of note, the patient had chest discomfort and EKG changes with the inflation that resolved at the end of the procedure. She had evidence of pulmonary edema and received intravenous diuretic with some improvement in her symptoms toward the end of the procedure. She received Angiomax per protocol and was continued on clopidogrel. RESULTS: 1. Successful stenting of the ostium of the left circumflex with reduction of stenosis from 99% to 0%. 2. Successful stenting of the distal left main and the proximal left anterior descending with reduction of stenosis from 70% to 0%. RECOMMENDATION: Patient will be continued on aspirin, Plavix, beta blockers and statin. The importance of dual antiplatelet treatment were discussed with the patient and her family and they are in full understanding and agreement. MMODL / IJN: [id number] /
[2020-04-12] MEDS: METOPROLOL TARTRATE 50 MG TAB PO SCH ×2 (14:48→21:15)
[2020-04-12] MEDS: RANOLAZINE 500 MG TAB.ER.12H PO SCH ×2 (14:50→21:14)
[2020-04-12 17:22] LABS: Glucose,Whole Blood 202 mg/dL (75-99)
[2020-04-12] MEDS: hydrALAZINE HCL 50 MG TAB PO SCH ×2 (17:42→22:59)
[2020-04-12] MEDS ORDERED: METOCLOPRAMIDE 10 MG TAB PO PRN (18:38)
[2020-04-12] MEDS ORDERED: ACETAMINOPHEN TAB 500 MG TAB PO PRN (18:38)
[2020-04-12] MEDS: HYDROcodone/APAP 7.5-325MG 1 EACH TAB PO SCH ×2 (18:53→22:58)
[2020-04-12] MEDS: rOPINIRole HCL 4 MG TABLET PO SCH ×2 (19:09→21:15)
[2020-04-12 20:28] LABS: Glucose,Whole Blood 179 mg/dL (75-99)
[2020-04-12] MEDS: MONTELUKAST 10 MG TAB PO SCH (21:14)
[2020-04-12] MEDS: ATORVASTATIN 80 MG TAB PO SCH (21:15)
[2020-04-12] MEDS: PANTOPRAZOLE 40 MG TABLET PO SCH (21:15)
[2020-04-12] MEDS: SUCRALFATE 1 GM TAB PO SCH (21:15)
[2020-04-12] MEDS: FUROSEMIDE 10 MG/ML 4 ML VIAL IV SCH (21:17)
[2020-04-12] MEDS: INSULIN ASPART (NovoLOG) 100 UNIT/ML VIAL SQ SCH (21:17)
[2020-04-13] MEDS ORDERED: METOCLOPRAMIDE 5 MG/ML 2 ML VIAL IVP PRN (03:05)
[2020-04-13 04:39] LABS: Anisocytosis Slight; Basophils % (A) 0 %; Eosinophils # (A) 0.3 k/uL (0-0.7); Eosinophils % (A) 2 %; HCT 32.5 % (34.0-46.0); HGB 9.7 gm/dL (11.4-16.0); Hypochromasia Marked; Lymphocytes # (A) 2.4 k/uL (1.0-4.8); Lymphocytes % (A) 16 %; MCH 21.3 pg (25.0-35.0); MCV 70.9 fL (80.0-100.0); Mean Platelet Volume 6.7; Microcytosis Marked; Monocytes # (A) 0.9 k/uL (0-1.0); Monocytes % (A) 6 %; Neutrophils % (A) 75 %; Platelet Count 381 k/uL (150-450); Poikilocytosis Slight; RBC 4.58 m/uL (3.80-5.40); RDW 18.9 % (11.5-15.5); WBC 14.8 k/uL (3.8-10.6)
[2020-04-13] MEDS: LEVALBUTEROL HCL 0.63 MG/3 ML INHALATION SCH ×3 (04:59→13:57)
[2020-04-13 05:58] LABS: Calcium 9.3 mg/dL (8.4-10.2); Potassium 4.7 mmol/L (3.5-5.1)
[2020-04-13 06:52] LABS: Glucose,Whole Blood 154 mg/dL (75-99)
--- NOTE | 2020-04-13 07:14 | XR ---
EXAMINATION TYPE: XR chest 1V portable DATE OF EXAM: 04/13/2020 CLINICAL HISTORY: Difficulty breathing progress study. TECHNIQUE: Single AP portable upright view of the chest is obtained. COMPARISON: Chest x-ray from one day earlier. CTA chest February 09, 2020. FINDINGS: Background chronic emphysematous and parenchymal fibrotic change with suspected small bila teral pleural effusions seen better on current study. Patchy new left basilar opacity. Cardiac silhou ette size stable and mildly enlarged with atherosclerotic aorta. Multilevel spurring in the thoracic spine. IMPRESSION: Chronic emphysematous and pulmonary fibrotic changes with mild cardiomegaly. Better visua lization of small to tiny bilateral pleural effusions. Slightly more prominent left basilar acute ate lectasis and/or infiltrate. Progress study advised.
[2020-04-13] MEDS ORDERED: NON FORMULARY DRUG (Omega-3 Fatty Acids [Omega-3] 1,000 MG Capsule) PO SCH (09:00)
[2020-04-13] MEDS ORDERED: ASPIRIN 325 MG TAB PO SCH (09:00)
[2020-04-13] MEDS: HYDROcodone/APAP 7.5-325MG 1 EACH TAB PO SCH ×4 (09:32→23:03)
[2020-04-13] MEDS: rOPINIRole HCL 4 MG TABLET PO SCH ×3 (09:32→23:03)
[2020-04-13] MEDS: FUROSEMIDE 10 MG/ML 4 ML VIAL IV SCH ×2 (09:36→20:04)
[2020-04-13] MEDS: FERROUS SULFATE 325 MG TAB PO SCH (09:36)
[2020-04-13] MEDS: CHOLECALCIFEROL 1,000 UNIT TAB PO SCH (09:37)
[2020-04-13] MEDS: ASPIRIN 81 MG PO SCH (09:37)
[2020-04-13] MEDS: CLOPIDOGREL 75 MG TAB PO SCH (09:37)
[2020-04-13] MEDS: RANOLAZINE 500 MG TAB.ER.12H PO SCH ×2 (09:39→20:04)
[2020-04-13] MEDS: DICYCLOMINE 10 MG CAP PO SCH (09:39)
[2020-04-13] MEDS: SUCRALFATE 1 GM TAB PO SCH ×2 (09:39→20:04)
[2020-04-13] MEDS: MAGNESIUM OXIDE 400 MG TAB PO SCH (09:39)
[2020-04-13] MEDS: METOPROLOL TARTRATE 50 MG TAB PO SCH ×2 (09:40→20:04)
--- NOTE | 2020-04-13 09:40 | P.PN ---
Subjective Progress Note Date: 04/13/20 This 74-year-old female with history of ischemic heart disease is admitted to the hospital with unstable angina/non-STEMI and also evidence of CHF. Patient underwent cardiac catheterization and was found to have critical stenosis involving the ostium of the circumflex. Patient had stent placement by Dr. Hernandez. Patient developed significant shortness of breath during and after the procedure. Consistent with pulmonary edema. Patient was treated with IV Lasix. Patient is feeling much better today. Denies any shortness of breath. Complaints of some mild localized pain and she motion to the chair. Her puncture site is soft without any evidence of hematoma. Lungs sound good. Patient is maintaining sinus rhythm. Patient is being transferred to telemetry unit and increase activity as tolerated. Objective - Vital Signs Vital signs: Vital Signs Temp 98.2 F 04/13/20 03:00 Pulse 68 04/13/20 08:00 Resp 18 04/13/20 08:00 BP 119/55 04/13/20 08:00 Pulse Ox 98 04/13/20 08:00 Intake & Output 04/12/20 04/13/20 04/13/20 18:59 06:59 18:59 Intake Total 878.9 906.2 Output Total 4150 975 Balance -3271.1 -68.8 Weight 104.5 kg Intake: IV 485 Intake, IV Titration 393.9 906.2 Amount Nitroglycerin-D5w Pmx 50 168.9 6.2 mg In Dextrose/Water 1 250ml.bag @ 20 MCG/MIN 6 mls/hr IV .Q24H ONE Rx#: [id number] Sodium Chloride 0.9% 1, 225 900 000 ml @ 75 mls/hr IV . [id number] [facility] Rx#:[id number] Output: Urine 4150 975 Other: Voiding Method Indwelling Catheter Indwelling Catheter - Labs CBC & Chem 7: 04/13/20 04:22 04/13/20 04:22 Labs: Abnormal Lab Results - Last 24 Hours (Table) 04/12/20 04/12/20 04/12/20 Range/Units 17:20 18:32 20:27 WBC (3.8-10.6) k/uL Hgb (11.4-16.0) gm/dL Hct (34.0-46.0) % MCV (80.0-100.0) fL MCH (25.0-35.0) pg MCHC (31.0-37.0) g/dL RDW (11.5-15.5) % Neutrophils # (1.3-7.7) k/uL Sodium (137-145) mmol/L BUN (7-17) mg/dL Glucose (74-99) mg/dL POC Glucose (mg/dL) 202 H 179 H (75-99) mg/dL Troponin I 12.100 H* (0.000-0.034) ng/mL 04/13/20 04/13/20 04/13/20 Range/Units 04:22 04:22 06:50 WBC 14.8 H (3.8-10.6) k/uL Hgb 9.7 L (11.4-16.0) gm/dL Hct 32.5 L (34.0-46.0) % MCV 70.9 L (80.0-100.0) fL MCH 21.3 L (25.0-35.0) pg MCHC 30.0 L (31.0-37.0) g/dL RDW 18.9 H (11.5-15.5) % Neutrophils # 11.0 H (1.3-7.7) k/uL Sodium 131 L (137-145) mmol/L BUN 30 H (7-17) mg/dL Glucose 143 H (74-99) mg/dL POC Glucose (mg/dL) 154 H (75-99) mg/dL Troponin I (0.000-0.034) ng/mL
[2020-04-13] MEDS: INSULIN ASPART (NovoLOG) 100 UNIT/ML VIAL SQ SCH ×4 (09:44→20:04)
[2020-04-13] MEDS: amLODIPine 10 MG TAB PO SCH (09:59)
[2020-04-13] MEDS: hydrALAZINE HCL 50 MG TAB PO SCH ×3 (09:59→23:03)
--- NOTE | 2020-04-13 11:00 | P.CNPUL ---
History of Present Illness Consult date: 04/13/20 Reason for consult: dyspnea, COPD, hypoxemia Chief complaint: Acute respiratory failure and ICU care History of present illness: This is a 74-year-old female well-known to me for history of coronary artery disease and chronic systolic heart failure, she also has a chronic history of atrial fibrillation, patient came into the hospital for evaluation of substernal chest heaviness and pain started yesterday morning, pain was persistent even after taking nitroglycerin throughout the day, came into the hospital for furt her evaluation and intervention and treatment patient has been well-known to cardiovascular services, patient had a cardiac cath and angiogram in November 2019 with a stent placed to LAD at that time ejection fraction was just 30% diffuse hypokinesia LV with mild TR and MR were noted, patient was place on IV heparin and IV nitro drip, a diagnosis of non-ST segment elevated [place] was made, patient underwent cardiac cath and angiogram, patient was noted to have a significant stenosis of origin of circumflex underwent stent placement by some on, post procedure patient developed cardiogenic pulmonary edema required IV furosemide oxygen was down to 6 L subsequently admitted into the ICU for close monitoring and observation, currently patient is sitting upright breathing comfortably on 2 L oxygen, hemodynamically stable last set of blood pressure was 127 a 66 she is afebrile, chest x-ray performed today revealed chronic emphysematous changes along with parenchymal fibrotic changes small bilateral pleural effusion with interstitial edema predominantly more so on the left side compared right side was noted, this is also identified, white cell count is 14,000 with a hemoglobin and hematocrit 9.7 and 32, sodium is 131 year and creatinine 30 and 1.0, specific questioning patient denies any chest pain denies any cough or sputum production she is been evaluated for possible transfer to stepdown unit now Review of Systems All systems: negative Past Medical History Past Medical History: Asthma, Coronary Artery Disease (CAD), Heart Failure, COPD, Diabetes Mellitus, Deep Vein Thrombosis (DVT), GERD/Reflux, Hyperl ipidemia, Hypertension, Myocardial Infarction (AZ), Osteoarthritis (OA), Pneumonia, Renal Disease, Skin Disorder, Sleep Apnea/CPAP/BIPAP Additional Past Medical History / Comment(s): Pt states just admitted to [facility] as a direct admit for bilateral foot sores/infection and they determined she did not have osteomyelitis. Other hx: MIs with last AZ 11/2019 with cardiogenic shock/pulmonary edema/respiratory failure, cardiomyopathy, NIDDM type II, neuropathy bilateral feet, bilateral diabetic foot ulcers, past cellulitis, pneumonias, past R lung pne with empyema/surgery, gastritis, colitis/frequent diarrhea, benign colon polyps, renal disease stage III, IRA with no device used d/t severe clausterphobia, home oxygen at 2L/NC at HS, occasional lower leg edema, RLS, Last Myocardial Infarction Date:: 2019 History of Any Multi-Drug Resistant Organisms: None Reported Past Surgical History: Appendectomy, Breast Surgery, Cholecystectomy, Heart Catheterization, Heart Catheterization With Stent Additional Past Surgical History / Comment(s): PCI with stents, R lung thora cotomy/decortication for empyema, bilateral feet/sores debrided, L breast benign bx, colonoscopy/benign polypectomy, EGD Past Anesthesia/Blood Transfusion Reactions: No Reported Reaction Additional Past Anesthesia/Blood Transfusion Reaction / Comment(s): severe claustrophobia Date of Last Stent Placement:: 11/27/19 Smoking Status: Former smoker - Past Family History Brother(s) Family Medical History: Cancer Additional Family Medical History / Comment(s): Colon cancer Father Family Medical History: Chest Pain / Angina Additional Family Medical History / Comment(s): Father of a AZ at the age of 77yrs. Mother Family Medical History: Chest Pain / Angina Additional Family Medical History / Comment(s): Mother of a AZ at the age of 74yrs. Medications and Allergies Home Medications Medication Instructions Recorded Confirmed Type Cholecalciferol [Vitamin D3 (25 1,000 unit PO DAILY 02/26/15 04/12/20 History Mcg = 1000 Iu)] Clopidogrel [Plavix] 75 mg PO DAILY 09/05/15 04/12/20 History Montelukast Sodium [Singulair] 10 mg PO HS #30 tab 10/25/15 04/12/20 Rx Canyon-3 Fatty Acids [Canyon-3] 2,000 mg PO DAILY 09/29/18 04/12/20 History Isosorbide Mononitrate ER [Imdur] 60 mg PO DAILY #30 tab.er.24h 11/17/18 04/12/20 Rx Dicyclomine [Bentyl] 10 mg PO DAILY 04/16/19 04/12/20 History Acetaminophen Tab [Tylenol] 500 mg PO Q6HR PRN tab 06/23/19 04/12/20 Rx Dulaglutide [Trulicity] 1.5 mg SQ KISER 08/15/19 04/12/20 History Insulin Aspart Protam & Aspart 30 unit SQ BID 08/15/19 04/12/20 History [NovoLOG MIX 70-30 Flexpen] Metoclopramide [Reglan] 10 mg PO QID PRN 08/15/19 04/12/20 History Magnesium Oxide 400 mg PO DAILY 11/02/19 04/12/20 History rOPINIRole HCL [Requip] 4 mg PO TID 11/02/19 04/12/20 History Omeprazole [PriLOSEC] 40 mg PO HS #30 cap 11/08/19 04/12/20 Rx Ranolazine [Ranexa] 500 mg PO Q12HR #60 tab.er.12h 11/08/19 04/12/20 Rx Formoterol Fumarate [Perforomist] 20 mcg INHALATION RT-BID 11/26/19 04/12/20 History levalbuterol HCL [Levalbuterol HCl] 0.63 mg INHALATION RT-QID 11/26/19 04/12/20 History Aspirin EC [Ecotrin] 325 mg PO DAILY 02/09/20 04/12/20 History Atorvastatin [Lipitor] 80 mg PO HS 02/09/20 04/12/20 History Ferrous Sulfate [Iron (65 MG 325 mg PO DAILY 02/09/20 04/12/20 History Elemental)] metFORMIN HCL 1,000 mg PO BID 02/09/20 04/12/20 History Spironolactone [Aldactone] 25 mg PO DAILY 39 Days #39 tab 02/16/20 04/12/20 Rx hydrALAZINE HCL [Apresoline] 25 mg PO BID 30 Days #60 tab 02/16/20 04/12/20 Rx Furosemide [Lasix] 40 mg PO BID@0900,1500 04/12/20 04/12/20 History HYDROcodone/APAP 7.5-325MG [[place] 1 tab PO QID 04/12/20 04/12/20 History 7.5-325] Metoprolol Tartrate [Lopressor] 50 mg PO BID 04/12/20 04/12/20 History Nitroglycerin Sl Tabs [Nitrostat] 0.4 mg SL Q5M PRN 04/12/20 04/12/20 History Sucralfate [Carafate] 1 gm PO BID 04/12/20 04/12/20 History amLODIPine [Norvasc] 10 mg PO DAILY 04/12/20 04/12/20 History lisinopriL 20 mg PO BID 04/12/20 04/12/20 History Allergies Allergy/AdvReac Type Severity Reaction Status Date / Time amoxicillin [From Augmentin] Allergy Rash/Hives Verified 04/12/20 07:18 clavulanic acid Allergy Rash/Hives Verified 04/12/20 07:18 [From Augmentin] metronidazole [From Flagyl] Allergy Nausea & Verified 04/12/20 07:18 Vomiting adhesive tape AdvReac bruises,"paper Verified 04/12/20 07:18 tape is ok" albuterol AdvReac Rapid Verified 04/12/20 07:18 Heart Rate stress test injection Allergy Anaphylaxis Uncoded 04/12/20 07:18 Physical Exam Vitals: Vital Signs Temp Pulse Pulse Resp BP BP BP 04/13/20 10:00 75 12 127/66 04/13/20 09:00 77 28 H 123/63 04/13/20 08:00 68 18 119/55 04/13/20 07:00 81 18 115/60 04/13/20 06:00 70 28 H 119/62 04/13/20 05:00 60 16 111/53 04/13/20 04:00 66 16 102/55 04/13/20 03:00 98.2 F 84 25 H 116/58 04/13/20 02:00 67 20 98/48 04/13/20 01:00 67 19 111/56 04/13/20 00:00 76 12 124/53 04/12/20 23:00 76 17 115/69 04/12/20 22:00 76 21 132/59 04/12/20 21:00 81 17 115/52 04/12/20 20:00 97.8 F 79 18 84/59 04/12/20 19:00 95 18 116/55 04/12/20 18:45 98 23 140/61 04/12/20 18:30 100 26 H 131/66 04/12/20 18:15 96 19 153/70 04/12/20 18:00 101 H 30 H 153/83 04/12/20 17:56 92 04/12/20 17:45 105 H 30 H 159/84 04/12/20 17:30 102 H 35 H 152/73 04/12/20 17:23 98.0 F 103 H 32 H 04/12/20 16:49 92 20 96/44 04/12/20 16:32 90 20 04/12/20 15:47 100 22 135/65 04/12/20 14:31 22 168/79 04/12/20 14:01 26 H 175/86 04/12/20 13:50 125 H 38 H 04/12/20 13:31 12 164/75 04/12/20 13:15 12 175/86 04/12/20 13:01 33 H 168/79 04/12/20 12:46 34 H 173/79 04/12/20 11:00 90 16 147/76 Pulse Ox 04/13/20 10:00 97 04/13/20 09:00 97 04/13/20 08:00 98 04/13/20 07:00 88 L 04/13/20 06:00 97 04/13/20 05:00 95 04/13/20 04:00 92 L 04/13/20 03:00 97 04/13/20 02:00 98 04/13/20 01:00 94 L 04/13/20 00:00 96 04/12/20 23:00 94 L 04/12/20 22:00 92 L 04/12/20 21:00 95 04/12/20 20:00 97 04/12/20 19:00 99 04/12/20 18:45 98 04/12/20 18:30 95 04/12/20 18:15 95 04/12/20 18:00 95 04/12/20 17:56 04/12/20 17:45 92 L 04/12/20 17:30 92 L 04/12/20 17:23 93 L 04/12/20 16:49 92 L 04/12/20 16:32 92 L 04/12/20 15:47 92 L 04/12/20 14:31 97 04/12/20 14:01 94 L 04/12/20 13:50 04/12/20 13:31 94 L 04/12/20 13:15 88 L 04/12/20 13:01 91 L 04/12/20 12:46 88 L 04/12/20 11:00 98 Intake and Output 04/12/20 04/13/20 04/13/20 22:59 06:59 14:59 Intake Total 491.5 600 225 Output Total 1505 520 125 Balance -1013.5 80 100 Intake: Intake, IV Titration 491.5 600 225 Amount Nitroglycerin-D5w Pmx 50 41.5 mg In Dextrose/Water 1 250ml.bag @ 20 MCG/MIN 6 mls/hr IV .Q24H ONE Rx#: [id number] Sodium Chloride 0.9% 1, 450 600 225 000 ml @ 75 mls/hr IV . [id number] [facility] Rx#:[id number] Output: Urine 1505 520 125 Other: Voiding Method Indwelling Catheter Indwelling Catheter Weight 104.5 kg 104.5 kg - Constitutional General appearance: disheveled, morbidly obese, no acute distress - EENT Eyes: PERRLA Ears: bilateral: normal - Neck Neck: normal ROM Carotids: bilateral: upstroke normal Thyroid: bilateral: normal size - Respiratory Respiratory: bilateral: CTA, diminished - Cardiovascular Rhythm: regular Heart sounds: normal: S1, S2 - Gastrointestinal General gastrointestinal: normal bowel sounds - Neurologic Neurologic: CNII-XII intact - Musculoskeletal Musculoskeletal: gait normal, generalized weakness - Psychiatric Psychiatric: A&O x's 3, appropriate affect, intact judgment & insight Results - Laboratory Findings CBC and BMP: 04/13/20 04:22 04/13/20 04:22 PT/INR, D-dimer PT 9.4 sec (9.0-12.0) 04/12/20 02:05 INR 0.9 (<1.2) 04/12/20 02:05 D-Dimer 1.42 mg/L FEU (<0.60) H 04/12/20 02:05 Abnormal lab findings: Abnormal Labs 04/12/20 04/12/20 04/12/20 02:05 02:05 02:05 WBC 14.5 H Hgb 9.9 L Hct 31.0 L MCV 69.3 L MCH 22.1 L MCHC RDW 18.7 H Plt Count 520 H Neutrophils # 9.2 H D-Dimer 1.42 H Sodium 126 L Chloride 93 L Carbon Dioxide 21 L BUN 43 H Creatinine 1.45 H Glucose 234 H POC Glucose (mg/dL) Troponin I 04/12/20 04/12/20 04/12/20 05:14 17:20 18:32 WBC Hgb Hct MCV MCH MCHC RDW Plt Count Neutrophils # D-Dimer Sodium Chloride Carbon Dioxide BUN Creatinine Glucose POC Glucose (mg/dL) 202 H Troponin I 0.202 H* 12.100 H* 04/12/20 04/13/20 04/13/20 20:27 04:22 04:22 WBC 14.8 H Hgb 9.7 L Hct 32.5 L MCV 70.9 L MCH 21.3 L MCHC 30.0 L RDW 18.9 H Plt Count Neutrophils # 11.0 H D-Dimer Sodium 131 L Chloride Carbon Dioxide BUN 30 H Creatinine Glucose 143 H POC Glucose (mg/dL) 179 H Troponin I 04/13/20 06:50 WBC Hgb Hct MCV MCH MCHC RDW Plt Count Neutrophils # D-Dimer Sodium Chloride Carbon Dioxide BUN Creatinine Glucose POC Glucose (mg/dL) 154 H Troponin I - Diagnostic Findings Chest x-ray: report reviewed, image reviewed (Finding as noted above) Assessment and Plan Assessment: Acute non-ST segment elevated [place] Acute hypoxic respiratory failure Acute pulmonary edema Acute on chronic systolic heart failure due to ischemic cardiomyopathy Acute kidney injury History of coronary artery disease Diabetes mellitus Morbid obesity History of DVT Sleep disorder breathing and sleep apnea refuses CPAP Plan: Continue supplemental oxygen Deep breathing exercise incentive spirometry Gentle diuresis Hold on antibiotics as white cell count is normal x-ray nonspecific symptoms are absent Increase activity as tolerated Maximal medical therapy for ischemic cardiomyopathy Can be transferred out of ICU to stepdown unit Further recommendations pending plan of care as per clinical response of patient Time with Patient: Greater than 30
--- NOTE | 2020-04-13 11:05 | PN ---
PROGRESS NOTE 74-year-old white female with an unstable angina and non STEMI and CHF. She underwent heart catheterization, found to have critical stenosis above the ostium of the circumflex. She had stent placement by Dr. Hernandez. Shortness of breath after procedure, pulmonary edema, treated with Lasix. She is feeling better today. She still has some chest pain treated with morphine post procedure. Lungs sounds fairly good. Heart is sinus rhythm. She will go to telemetry unit out of the ICU. Temperature 98.2, pulse 68, respiratory rate 18 to 20, blood pressure 110-120/55, O2 98. Cardiovascular: S1-S2. Lungs: Rales at the base. Hematology: Negative Homans. Psych: Fair mood and affect. GI distended, obesity. Extremities show a quarter-size lesion on dorsum of both great toes. Big toes on both feet. White count 14.3, hemoglobin is 9.7 sodium 131, potassium 4.7, BUN 30, creatinine 1.0. ASSESSMENT: 1. Status post stent placement, non STEMI, acute on chronic diastolic heart failure, congestive heart failure. 2. Diabetes mellitus. 3. Cellulitis with wound infections in the feet. Continue home medications. Prognosis is guarded as she continues to have multiple blockages in her heart. Hopefully some risk factor modification can be done with her diabetes and hypertension and her breathing and her diet. MMODL / IJN: [id number] /
--- NOTE | 2020-04-13 11:56 | ECHOF ---
Referral Reason:Chest pain and cardiomyopathy MEASUREMENTS -------- HEIGHT: 170.2 cm WEIGHT: 104.3 kg BP: IVSd: 1.3 cm (0.6 - 1.1) LVIDd: 5.2 cm (3.9 - 5.3) LVPWd: 1.4 cm (0.6 - 1.1) EDV(Teich): 131 ml IVSs: 2.1 cm LVIDs: 4.0 cm LVPWs: 1.1 cm %IVS Thck: 62 % ESV(Teich): 69 ml EF(Teich): 48 % %FS: 24 % SV(Teich): 62 ml LVOT Diam: 1.5 cm RVIDd: 2.6 cm (< 3.3) Ao Diam: 2.4 cm (2.0 - 3.7) LA Diam: 3.4 cm (2.7 - 3.8) AV Cusp: 1.2 cm (1.5 - 2.6) EPSS: 1.9 cm MV E Dorian: 0.98 m/s MV DecT: 196 ms MV Dec [place]: 5.0 m/s MV A Dorian: 0.98 m/s MV E/A Ratio: 1.00 MV PHT: 57 ms MR Vmax: 0.68 m/s MR maxP.85 mmHg AV Vmax: 1.27 m/s AV maxP.42 mmHg TR Vmax: 1.55 m/s TR maxP.63 mmHg RAP: 5.00 mmHg RVSP: 14.63 mmHg MV EF SLOPE: 33.85 mm/s (70 - 150) MV EXCURSION: 12.49 mm (> 18.000) FINDINGS -------- This was a technically difficult study with suboptimal views. The left ventricular size is normal. There is moderate concentric left ventricular hypertrophy. O verall left ventricular systolic function is low-normal with, an EF between 50 - 55 %. The right ventricle is normal in size. The left atrial size is normal. The right atrial size is normal. Lumason used Aortic valve is trileaflet and is mildly thickened. The mitral valve leaflets are mildly thickened. Mild mitral annular calcification present. Mild m itral regurgitation is present. The tricuspid valve appears structurally normal. Mild tricuspid regurgitation present. Right vent ricular systolic pressure is normal at < 35 mmHg. There is no pulmonic regurgitation present. The aortic root size is normal. IVC Not well visulized. There is no pericardial effusion. CONCLUSIONS -------- 1. The left ventricular size is normal. 2. There is moderate concentric left ventricular hypertrophy. 3. Overall left ventricular systolic function is low-normal with, an EF between 50 - 55 %. 4. Aortic valve is trileaflet and is mildly thickened. 5. The mitral valve leaflets are mildly thickened. 6. Mild mitral annular calcification present. 7. Mild mitral regurgitation is present. 8. Mild tricuspid regurgitation present. 9. There is no pericardial effusion. ON SITE SERVICES SPECIALIST: Nathalie Acosta RDCS
[2020-04-13 13:35] LABS: Glucose,Whole Blood 197 mg/dL (75-99)
[2020-04-13 16:56] LABS: Glucose,Whole Blood 182 mg/dL (75-99)
[2020-04-13 19:48] LABS: Glucose,Whole Blood 179 mg/dL (75-99)
[2020-04-13] MEDS: ATORVASTATIN 80 MG TAB PO SCH (20:04)
[2020-04-13] MEDS: MONTELUKAST 10 MG TAB PO SCH (20:04)
[2020-04-13] MEDS: PANTOPRAZOLE 40 MG TABLET PO SCH (20:04)
[2020-04-14 06:01] LABS: Glucose,Whole Blood 151 mg/dL (75-99)
[2020-04-14] MEDS: INSULIN ASPART (NovoLOG) 100 UNIT/ML VIAL SQ SCH ×4 (06:26→20:28)
[2020-04-14 07:52] LABS: Anisocytosis Slight; Basophils % (A) 0 %; Eosinophils # (A) 0.3 k/uL (0-0.7); Eosinophils % (A) 3 %; HGB 8.8 gm/dL (11.4-16.0); Hypochromasia Moderate; Lymphocytes # (A) 2.7 k/uL (1.0-4.8); Lymphocytes % (A) 22 %; MCH 22.1 pg (25.0-35.0); MCHC 31.5 g/dL (31.0-37.0); MCV 70.2 fL (80.0-100.0); Microcytosis Marked; Monocytes # (A) 0.7 k/uL (0-1.0); Monocytes % (A) 5 %; Neutrophils # (A) 8.3 k/uL (1.3-7.7); Neutrophils % (A) 68 %; Platelet Count 424 k/uL (150-450); Poikilocytosis Slight; RBC 3.99 m/uL (3.80-5.40); RDW 18.8 % (11.5-15.5); WBC 12.2 k/uL (3.8-10.6)
[2020-04-14 08:05] LABS: Calcium 9.3 mg/dL (8.4-10.2); Potassium 4.9 mmol/L (3.5-5.1)
[2020-04-14] MEDS: HYDROcodone/APAP 7.5-325MG 1 EACH TAB PO SCH ×4 (08:50→20:28)
[2020-04-14] MEDS: FERROUS SULFATE 325 MG TAB PO SCH (08:50)
[2020-04-14] MEDS: MAGNESIUM OXIDE 400 MG TAB PO SCH (08:51)
[2020-04-14] MEDS: amLODIPine 10 MG TAB PO SCH (08:51)
[2020-04-14] MEDS: CLOPIDOGREL 75 MG TAB PO SCH (08:51)
[2020-04-14] MEDS: ASPIRIN 81 MG PO SCH (08:51)
[2020-04-14] MEDS: CHOLECALCIFEROL 1,000 UNIT TAB PO SCH (08:51)
[2020-04-14] MEDS: RANOLAZINE 500 MG TAB.ER.12H PO SCH ×2 (08:52→20:28)
[2020-04-14] MEDS: DICYCLOMINE 10 MG CAP PO SCH (08:52)
[2020-04-14] MEDS: METOPROLOL TARTRATE 50 MG TAB PO SCH ×2 (08:52→20:28)
[2020-04-14] MEDS: rOPINIRole HCL 4 MG TABLET PO SCH ×3 (08:52→20:34)
[2020-04-14] MEDS: SUCRALFATE 1 GM TAB PO SCH ×2 (08:52→20:28)
[2020-04-14] MEDS: hydrALAZINE HCL 50 MG TAB PO SCH ×3 (08:52→20:28)
[2020-04-14] MEDS: FUROSEMIDE 10 MG/ML 4 ML VIAL IV SCH (08:52)
--- NOTE | 2020-04-14 11:35 | P.PN ---
Subjective Progress Note Date: 04/14/20 Principal diagnosis: Acute non-ST segment elevated [place] Acute hypoxic respiratory failure Acute pulmonary edema Acute on chronic systolic heart failure due to ischemic cardiomyopathy Acute kidney injury History of coronary artery disease Diabetes mellitus Morbid obesity History of DVT Sleep disorder breathing and sleep apnea refuses CPA 04/14/2020, patient seen eval examined during the rounds sitting upright in chair breathing comfortably, denies any chest pain ongoing slight shortness of breath is present, cell count continue to improve 12,000, CN saturation dropped down to 90% on 2 L 97-98%, This is a 74-year-old female well-known to me for history of coronary artery disease and chronic systolic heart failure, she also has a chronic history of atrial fibrillation, patient came into the hospital for evaluation of substernal chest heaviness and pain started yesterday morning, pain was persistent even after taking nitroglycerin throughout the day, came into the hospital for further evaluation and intervention and treatment patient has been well-known to cardiovascular services, patient had a cardiac cath and angiogram in November 2019 with a stent placed to LAD at that time ejection fraction was just 30% diffuse hypokinesia LV with mild TR and MR were noted, patient was place on IV heparin and IV nitro drip, a diagnosis of non-ST segment elevated [place] was made, patient underwent cardiac cath and angiogram, patient was noted to have a significant stenosis of origin of circumflex underwent stent placement by Dr. villegas on, post procedure patient developed cardiogenic pulmonary edema required IV furosemide oxygen was down to 6 L subsequently admitted into the ICU for close monitoring and observation, currently patient is sitting upright breathing comfortably on 2 L oxygen, hemodynamically stable last set of blood pressure was 127 a 66 she is afebrile, chest x-ray performed today revealed chronic emphysematous changes along with parenchymal fibrotic changes small bilateral pleural effusion with interstitial edema predominantly more so on the left side compared right side was noted, this is also identified, white cell count is 14,000 with a hemoglobin and hematocrit 9.7 and 32, sodium is 131 year and creatinine 30 and 1.0, specific questioning patient denies any chest pain denies any cough or sputum production she is been evaluated for possible transfer to stepdown unit now Objective - Vital Signs Vital signs: Vital Signs Temp 97.8 F 04/13/20 20:00 Pulse 89 04/14/20 08:00 Resp 19 04/14/20 08:00 BP 138/62 04/14/20 08:00 Pulse Ox 90 L 04/14/20 08:00 Intake & Output 04/13/20 04/14/20 04/14/20 18:59 06:59 18:59 Intake Total 701 360 Output Total 475 400 Balance 226 -400 360 Weight 104.5 kg 110.2 kg Intake: Intake, IV Titration 225 Amount Sodium Chloride 0.9% 1, 225 000 ml @ 75 mls/hr IV . [id number] [facility] Rx#:[id number] Oral 236 360 Tube Feeding 240 Output: Urine 475 400 Other: Voiding Method Indwelling Catheter Indwelling Catheter - Exam - Constitutional General appearance: disheveled, morbidly obese, no acute distress - EENT Eyes: PERRLA Ears: bilateral: normal - Neck Neck: normal ROM Carotids: bilateral: upstroke normal Thyroid: bilateral: normal size - Respiratory Respiratory: bilateral: CTA, diminished - Cardiovascular Rhythm: regular Heart sounds: normal: S1, S2 - Gastrointestinal General gastrointestinal: normal bowel sounds - Neurologic Neurologic: CNII-XII intact - Musculoskeletal Musculoskeletal: gait normal, generalized weakness - Psychiatric Psychiatric: A&O x's 3, appropriate affect, intact judgment & insight - Labs CBC & Chem 7: 04/14/20 06:56 04/14/20 06:56 Labs: Abnormal Lab Results - Last 24 Hours (Table) 04/13/20 04/13/20 04/13/20 Range/Units 13:34 16:47 19:45 WBC (3.8-10.6) k/uL Hgb (11.4-16.0) gm/dL Hct (34.0-46.0) % MCV (80.0-100.0) fL MCH (25.0-35.0) pg RDW (11.5-15.5) % Neutrophils # (1.3-7.7) k/uL Sodium (137-145) mmol/L Chloride (98-107) mmol/L BUN (7-17) mg/dL Creatinine (0.52-1.04) mg/dL Glucose (74-99) mg/dL POC Glucose (mg/dL) 197 H 182 H 179 H (75-99) mg/dL 04/14/20 04/14/20 04/14/20 Range/Units 05:59 06:56 06:56 WBC 12.2 H (3.8-10.6) k/uL Hgb 8.8 L (11.4-16.0) gm/dL Hct 28.0 L (34.0-46.0) % MCV 70.2 L (80.0-100.0) fL MCH 22.1 L (25.0-35.0) pg RDW 18.8 H (11.5-15.5) % Neutrophils # 8.3 H (1.3-7.7) k/uL Sodium 128 L (137-145) mmol/L Chloride 93 L (98-107) mmol/L BUN 31 H (7-17) mg/dL Creatinine 1.21 H (0.52-1.04) mg/dL Glucose 132 H (74-99) mg/dL POC Glucose (mg/dL) 151 H (75-99) mg/dL Assessment and Plan Assessment: Acute non-ST segment elevated [place] Acute hypoxic respiratory failure Acute pulmonary edema Acute on chronic systolic heart failure due to ischemic cardiomyopathy Acute kidney injury History of coronary artery disease Diabetes mellitus Morbid obesity History of DVT Sleep disorder breathing and sleep apnea refuses CPAP Plan: Continue supplemental oxygen Deep breathing exercise incentive spirometry Gentle diuresis Hold on antibiotics as white cell count is normal x-ray nonspecific symptoms are absent Increase activity as tolerated Maximal medical therapy for ischemic cardiomyopathy Further recommendations pending plan of care as per clinical response of patient Time with Patient: Greater than 30
[2020-04-14 12:29] LABS: Glucose,Whole Blood 161 mg/dL (75-99)
--- NOTE | 2020-04-14 15:28 | P.PN ---
Subjective Progress Note Date: 04/14/20 CHIEF COMPLAINT: Chest pain HISTORY OF PRESENT ILLNESS: Patient is status post cardiac cath with stent placement to the ostium of the circumflex. Patient examined at the bedside. She denies shortness of breath. She reports some chest discomfort this morning which has since resolved. She thinks this may be related to gas. Vital signs are stable. PHYSICAL EXAM: VITAL SIGNS: Reviewed. GENERAL: Well-developed in no acute distress. HEENT: Head is normocephalic. Pupils are equal, round. Sclerae anicteric. Mucous membranes of the mouth are moist. Neck supple. No JVD or thyromegaly LUNGS: Respirations even and unlabored. Lungs diminished. HEART: Regular rate and rhythm. S1 and S2 heard. ABDOMEN: Soft. Nondistended. Nontender. EXTREMITIES: Normal range of motion. No clubbing or cyanosis. Peripheral pulses intact. Trace bilateral lower extremity edema. Puncture site with pulse present. NEUROLOGIC: Awake and alert. Oriented x 3. ASSESSMENT: Non-STEMI Acute kidney injury History of coronary artery disease with previous PCI to LAD, October 2019 History of congestive heart failure Ischemic cardiomyopathy, EF 30-35% Diabetes mellitus Hypertension Hyperlipidemia PLAN: Continue current cardiac medications Discontinue IV Lasix. Begin oral Lasix 40mg twice a day Further recommendations pending patient course Nurse practitioner note has been reviewed by physician. Signing provider agrees with the documented findings, assessment, and plan of care. Objective - Vital Signs Vital signs: Vital Signs Temp 97.7 F 04/14/20 12:00 Pulse 77 04/14/20 13:12 Resp 19 04/14/20 13:12 BP 119/52 04/14/20 12:00 Pulse Ox 91 L 04/14/20 12:00 Intake & Output 04/13/20 04/14/20 04/14/20 18:59 06:59 18:59 Intake Total 701 600 Output Total 475 400 Balance 226 -400 600 Weight 104.5 kg 110.2 kg Intake: Intake, IV Titration 225 Amount Sodium Chloride 0.9% 1, 225 000 ml @ 75 mls/hr IV . [id number] [facility] Rx#:[id number] Oral 236 600 Tube Feeding 240 Output: Urine 475 400 Other: Voiding Method Indwelling Catheter Indwelling Catheter - Labs CBC & Chem 7: 04/14/20 06:56 04/14/20 06:56 Labs: Abnormal Lab Results - Last 24 Hours (Table) 04/13/20 04/13/20 04/14/20 Range/Units 16:47 19:45 05:59 WBC (3.8-10.6) k/uL Hgb (11.4-16.0) gm/dL Hct (34.0-46.0) % MCV (80.0-100.0) fL MCH (25.0-35.0) pg RDW (11.5-15.5) % Neutrophils # (1.3-7.7) k/uL Sodium (137-145) mmol/L Chloride (98-107) mmol/L BUN (7-17) mg/dL Creatinine (0.52-1.04) mg/dL Glucose (74-99) mg/dL POC Glucose (mg/dL) 182 H 179 H 151 H (75-99) mg/dL 04/14/20 04/14/20 04/14/20 Range/Units 06:56 06:56 12:26 WBC 12.2 H (3.8-10.6) k/uL Hgb 8.8 L (11.4-16.0) gm/dL Hct 28.0 L (34.0-46.0) % MCV 70.2 L (80.0-100.0) fL MCH 22.1 L (25.0-35.0) pg RDW 18.8 H (11.5-15.5) % Neutrophils # 8.3 H (1.3-7.7) k/uL Sodium 128 L (137-145) mmol/L Chloride 93 L (98-107) mmol/L BUN 31 H (7-17) mg/dL Creatinine 1.21 H (0.52-1.04) mg/dL Glucose 132 H (74-99) mg/dL POC Glucose (mg/dL) 161 H (75-99) mg/dL
[2020-04-14] MEDS: FUROSEMIDE 40 MG TAB PO SCH (16:27)
[2020-04-14 17:07] LABS: Glucose,Whole Blood 215 mg/dL (75-99)
[2020-04-14 20:05] LABS: Glucose,Whole Blood 218 mg/dL (75-99)
[2020-04-14] MEDS: MONTELUKAST 10 MG TAB PO SCH (20:28)
[2020-04-14] MEDS: ATORVASTATIN 80 MG TAB PO SCH (20:28)
[2020-04-14] MEDS: PANTOPRAZOLE 40 MG TABLET PO SCH (20:28)
[2020-04-14] MEDS: MAG HYDROX/AL HYDROX/SIMETH 30 ML CUP PO PRN (20:34)
--- NOTE | 2020-04-15 05:02 | PN ---
PROGRESS NOTE 74-year-old white female with acute non STEMI [place] status post PTCA, chronic systolic heart failure, ischemic cardiomyopathy, acute kidney injury, coronary artery disease, diabetes mellitus, sleeping disorder, and wound infections on bilateral toes. Breathing comfortably, sitting up in a chair. Her white count is 12,000. Oxygen level is 90% on 2 L. Hemoglobins is 8.8. Status post cardiac angiogram with some cardiogenic shock with some Lasix that was given. Blood pressure 130s over 60s, pulse 89, respiratory rate 18-20, temp 97.8. Cardiovascular S1, S2. Lungs are clear. GI soft. Hematology: Negative Homans. Integument: Quarter-sized lesions on the posterior 1st metatarsophalangeal joint. Psych: Fair mood and affect. Cranial nerves are intact. BUN is 31, creatinine 1.21. White count 12.2, hemoglobin 8.8, sodium 128. ASSESSMENT: 1. Acute non STEMI. 2. Acute hypoxemic respiratory failure. 3. Acute pulmonary edema. 4. Chronic systolic heart failure. 5. Ischemic cardiomyopathy. 6. Acute kidney injury. 7. Coronary artery disease. 8. Diabetes mellitus. 9. Cellulitis of the feet, diabetic wound infections of the feet. 10.History of DVT. 11.Sleep disorder. 12.General diuresis. Hold on antibiotics. Continue diuresis, status post PTCA. Wait for Cardiology to clear for discharge. Possibly home tomorrow. Breathing better. She normally wears 2 L oxygen at home anyway at this point home. Maintain water restriction due to sodium 128, hyponatremia. MMODL / IJN: [id number] /
[2020-04-15 06:04] LABS: Glucose,Whole Blood 167 mg/dL (75-99)
[2020-04-15] MEDS: INSULIN ASPART (NovoLOG) 100 UNIT/ML VIAL SQ SCH ×4 (06:28→22:41)
[2020-04-15] MEDS: HYDROcodone/APAP 7.5-325MG 1 EACH TAB PO SCH ×4 (08:35→20:40)
[2020-04-15] MEDS: METOPROLOL TARTRATE 50 MG TAB PO SCH ×2 (08:36→20:40)
[2020-04-15] MEDS: ASPIRIN 81 MG PO SCH (08:36)
[2020-04-15] MEDS: CHOLECALCIFEROL 1,000 UNIT TAB PO SCH (08:36)
[2020-04-15] MEDS: SUCRALFATE 1 GM TAB PO SCH ×2 (08:36→20:40)
[2020-04-15] MEDS: FERROUS SULFATE 325 MG TAB PO SCH (08:36)
[2020-04-15] MEDS: DICYCLOMINE 10 MG CAP PO SCH (08:36)
[2020-04-15] MEDS: RANOLAZINE 500 MG TAB.ER.12H PO SCH ×2 (08:37→20:40)
[2020-04-15] MEDS: hydrALAZINE HCL 50 MG TAB PO SCH ×3 (08:37→20:40)
[2020-04-15] MEDS: FUROSEMIDE 40 MG TAB PO SCH ×2 (08:37→15:05)
[2020-04-15] MEDS: rOPINIRole HCL 4 MG TABLET PO SCH ×3 (08:37→22:42)
[2020-04-15] MEDS: CLOPIDOGREL 75 MG TAB PO SCH (08:37)
[2020-04-15] MEDS: MAGNESIUM OXIDE 400 MG TAB PO SCH (08:37)
[2020-04-15] MEDS: amLODIPine 10 MG TAB PO SCH (08:37)
[2020-04-15 08:48] LABS: Anisocytosis Slight; Basophils # (A) 0.1 k/uL (0-0.2); Basophils % (A) 1 %; Eosinophils # (A) 0.2 k/uL (0-0.7); Eosinophils % (A) 2 %; HCT 28.1 % (34.0-46.0); HGB 8.8 gm/dL (11.4-16.0); Hypochromasia Moderate; Lymphocytes % (A) 17 %; MCHC 31.3 g/dL (31.0-37.0); MCV 70.3 fL (80.0-100.0); Microcytosis Marked; Monocytes # (A) 0.7 k/uL (0-1.0); Monocytes % (A) 6 %; Neutrophils # (A) 8.6 k/uL (1.3-7.7); Neutrophils % (A) 73 %; Platelet Count 423 k/uL (150-450); Poikilocytosis Slight; RBC 3.99 m/uL (3.80-5.40); RDW 18.9 % (11.5-15.5); WBC 11.8 k/uL (3.8-10.6)
--- NOTE | 2020-04-15 12:17 | P.PN ---
Subjective Progress Note Date: 04/15/20 Principal diagnosis: Acute non-ST segment elevated [place] Acute hypoxic respiratory failure Acute pulmonary edema Acute on chronic systolic heart failure due to ischemic cardiomyopathy Acute kidney injury History of coronary artery disease Diabetes mellitus Morbid obesity History of DVT Sleep disorder breathing and sleep apnea refuses CPA 04/15/2020, patient seen eval examined during the round labs reviewed medications reviewed care plan discussed, respiratory status remains stable, denies any chest pain, sitting upright on the chair, 04/14/2020, patient seen eval examined during the rounds sitting upright in chair breathing comfortably, denies any chest pain ongoing slight shortness of breath is present, cell count continue to improve 12,000, CN saturation dropped down to 90% on 2 L 97-98%, This is a 74-year-old female well-known to me for history of coronary artery disease and chronic systolic heart failure, she also has a chronic history of atrial fibrillation, patient came into the hospital for evaluation of substernal chest heaviness and pain started yesterday morning, pain was persistent even after taking nitroglycerin throughout the day, came into the hospital for further evaluation and intervention and treatment patient has been well-known to cardiovascular services, patient had a cardiac cath and angiogram in November 2019 with a stent placed to LAD at that time ejection fraction was just 30% diffuse hypokinesia LV with mild TR and MR were noted, patient was place on IV heparin and IV nitro drip, a diagnosis of non-ST segment elevated PA was made, patient underwent cardiac cath and angiogram, patient was noted to have a significant stenosis of origin of circumflex underwent stent placement by some on, post procedure patient developed cardiogenic pulmonary edema required IV furosemide oxygen was down to 6 L subsequently admitted into the ICU for close monitoring and observation, currently patient is sitting upright breathing comfortably on 2 L oxygen, hemodynamically stable last set of blood pressure was 127 a 66 she is afebrile, chest x-ray performed today revealed chronic emphysematous changes along with parenchymal fibrotic changes small bilateral pleural effusion with interstitial edema predominantly more so on the left side compared right side was noted, this is also identified, white cell count is 14,000 with a hemoglobin and hematocrit 9.7 and 32, sodium is 131 year and creatinine 30 and 1.0, specific questioning patient denies any chest pain denies any cough or sputum production she is been evaluated for possible transfer to stepdown unit now Objective - Vital Signs Vital signs: Vital Signs Temp 98.2 F 04/15/20 08:00 Pulse 72 04/15/20 08:00 Resp 18 04/15/20 03:58 BP 120/56 04/15/20 08:00 Pulse Ox 96 04/15/20 08:00 Intake & Output 04/14/20 04/15/20 04/15/20 18:59 06:59 18:59 Intake Total 840 240 Balance 840 240 Weight 110.1 kg Intake: Oral 840 240 Other: Voiding Method Indwelling Catheter # Voids 3 # Bowel Movements 0 - Exam - Constitutional General appearance: disheveled, morbidly obese, no acute distress - EENT Eyes: PERRLA Ears: bilateral: normal - Neck Neck: normal ROM Carotids: bilateral: upstroke normal Thyroid: bilateral: normal size - Respiratory Respiratory: bilateral: CTA, diminished - Cardiovascular Rhythm: regular Heart sounds: normal: S1, S2 - Gastrointestinal General gastrointestinal: normal bowel sounds - Neurologic Neurologic: CNII-XII intact - Musculoskeletal Musculoskeletal: gait normal, generalized weakness - Psychiatric Psychiatric: A&O x's 3, appropriate affect, intact judgment & insight - Labs CBC & Chem 7: 04/15/20 07:44 04/14/20 06:56 Labs: Abnormal Lab Results - Last 24 Hours (Table) 04/14/20 04/14/20 04/14/20 Range/Units 12:26 17:05 20:04 WBC (3.8-10.6) k/uL Hgb (11.4-16.0) gm/dL Hct (34.0-46.0) % MCV (80.0-100.0) fL MCH (25.0-35.0) pg RDW (11.5-15.5) % Neutrophils # (1.3-7.7) k/uL POC Glucose (mg/dL) 161 H 215 H 218 H (75-99) mg/dL 04/15/20 04/15/20 Range/Units 06:02 07:44 WBC 11.8 H (3.8-10.6) k/uL Hgb 8.8 L (11.4-16.0) gm/dL Hct 28.1 L (34.0-46.0) % MCV 70.3 L (80.0-100.0) fL MCH 22.0 L (25.0-35.0) pg RDW 18.9 H (11.5-15.5) % Neutrophils # 8.6 H (1.3-7.7) k/uL POC Glucose (mg/dL) 167 H (75-99) mg/dL Assessment and Plan Assessment: Acute non-ST segment elevated PA Acute hypoxic respiratory failure Acute pulmonary edema Acute on chronic systolic heart failure due to ischemic cardiomyopathy Acute kidney injury History of coronary artery disease Diabetes mellitus Morbid obesity History of DVT Sleep disorder breathing and sleep apnea refuses CPAP Plan: Continue supplemental oxygen Deep breathing exercise incentive spirometry Gentle diuresis Hold on antibiotics as white cell count is normal x-ray nonspecific symptoms are absent Increase activity as tolerated Maximal medical therapy for ischemic cardiomyopathy Further recommendations pending plan of care as per clinical response of patient Time with Patient: Greater than 30
[2020-04-15 12:25] LABS: Glucose,Whole Blood 178 mg/dL (75-99)
--- NOTE | 2020-04-15 13:02 | PN ---
PROGRESS NOTE A 74-year-old white female, status post PTCA of the circumflex for 2 days with congestive heart failure. The patient states she is breathing better today, but she wants to wait another day to go home. White count is 11.8, hemoglobin is 8.8. Sugars have been in the mid 100s, O2 saturation dropped down to 90 yesterday, it is back up to 96 on room air, temp 98.2, pulse 70s, respiratory 16 to 18. ASSESSMENT: Status post PTCA with congestive heart failure, hyponatremia, COPD, diabetes mellitus, chronic wound infections of the feet. Continue current treatment. PROGNOSIS: Guarded. Risk factor modification discussed with her. Increase ambulation. Possibly be discharged later today or tomorrow depending on the patient's wishes. MMODL / IJN: [id number] /
--- NOTE | 2020-04-15 13:07 | P.PN ---
Subjective Progress Note Date: 04/15/20 This is a 74-year-old female with past medical history significant for coronary artery disease, COPD, diabetes, hypertension, hyperlipidemia, GERD, who follows with Dr. Mccullough in the office. She presented to the hospital with symptoms of chest discomfort. Patient underwent a cardiac catheterization with subsequent angioplasty and stenting of the proximal LAD in November 2019, on this admission admission patient was taken to the cardiac catheterization lab where she underwent angioplasty and stenting of the circumflex artery. She was sitting up in the chair this morning, denied any chest discomfort and her breathing is stable. Blood pressure 120/60 with a heart rate in the 70s, 96% on room air. White blood cell count 11.8, hemoglobin 8.8, platelet count 423. Objective - Vital Signs Vital signs: Vital Signs Temp 98.2 F 04/15/20 08:00 Pulse 72 04/15/20 08:00 Resp 18 04/15/20 03:58 BP 120/56 04/15/20 08:00 Pulse Ox 96 04/15/20 08:00 Intake & Output 04/14/20 04/15/20 04/15/20 18:59 06:59 18:59 Intake Total 840 240 Balance 840 240 Weight 110.1 kg Intake: Oral 840 240 Other: Voiding Method Indwelling Catheter # Voids 3 # Bowel Movements 0 - Exam PHYSICAL EXAMINATION: GENERAL: 74-year-old female in no acute distress at the time of my examination HEENT: Head is atraumatic, normocephalic. Pupils equal, round. Sclera anicteric. Conjunctiva are clear. Mucous membranes of the mouth are moist. Neck is supple. There is no elevated jugular venous pressure. No carotid bruit is heard. HEART EXAMINATION: Heart S1, S2 normal. No murmur or gallop heard. CHEST EXAMINATION: Lungs are clear to auscultation and precussion. No chest wall tenderness is noted on palpation or with deep breathing. ABDOMEN: Soft, obese, nontender. Bowel sounds are heard. No organomegaly noted. EXTREMITIES: 2+ peripheral pulses with no evidence of peripheral edema and no calf tenderness noted. NEUROLOGIC patient is awake, alert and oriented 3 . - Labs CBC & Chem 7: 04/15/20 07:44 04/14/20 06:56 Labs: Abnormal Lab Results - Last 24 Hours (Table) 04/14/20 04/14/20 04/15/20 Range/Units 17:05 20:04 06:02 WBC (3.8-10.6) k/uL Hgb (11.4-16.0) gm/dL Hct (34.0-46.0) % MCV (80.0-100.0) fL MCH (25.0-35.0) pg RDW (11.5-15.5) % Neutrophils # (1.3-7.7) k/uL POC Glucose (mg/dL) 215 H 218 H 167 H (75-99) mg/dL 04/15/20 04/15/20 Range/Units 07:44 12:05 WBC 11.8 H (3.8-10.6) k/uL Hgb 8.8 L (11.4-16.0) gm/dL Hct 28.1 L (34.0-46.0) % MCV 70.3 L (80.0-100.0) fL MCH 22.0 L (25.0-35.0) pg RDW 18.9 H (11.5-15.5) % Neutrophils # 8.6 H (1.3-7.7) k/uL POC Glucose (mg/dL) 178 H (75-99) mg/dL Assessment and Plan Plan: Assessment and plan #1 non-STEMI, status post angioplasty and stenting of the circumflex artery #2 history of coronary artery disease with prior LAD stenting #3 ischemic cardiomyopathy #4 diabetes #5 hypertension #6 hyperlipidemia Plan From cardiology's perspective, patient may be able to be discharged home once cleared by primary. We will make her a follow-up appointment in the office to see Dr. Mccullough post discharge. We'll continue dual antiplatelet therapy along with statin, beta yoselyn, and sublingual nitroglycerin. DNP note has been reviewed, I agree with a documented findings and plan of care. Patient was seen and examined.
[2020-04-15 16:46] VITALS: RESP 18
[2020-04-15 17:51] LABS: Glucose,Whole Blood 208 mg/dL (75-99)
[2020-04-15 20:23] LABS: Glucose,Whole Blood 185 mg/dL (75-99)
[2020-04-15] MEDS: MAG HYDROX/AL HYDROX/SIMETH 30 ML CUP PO PRN (20:40)
[2020-04-15] MEDS: ATORVASTATIN 80 MG TAB PO SCH (20:40)
[2020-04-15] MEDS: MONTELUKAST 10 MG TAB PO SCH (20:40)
[2020-04-15] MEDS: PANTOPRAZOLE 40 MG TABLET PO SCH (20:40)
[2020-04-16 05:38] LABS: Glucose,Whole Blood 154 mg/dL (75-99)
[2020-04-16] MEDS: INSULIN ASPART (NovoLOG) 100 UNIT/ML VIAL SQ SCH ×2 (06:00→12:57)
[2020-04-16] MEDS: ASPIRIN 81 MG PO SCH (08:28)
[2020-04-16] MEDS: MAGNESIUM OXIDE 400 MG TAB PO SCH (08:29)
[2020-04-16] MEDS: FERROUS SULFATE 325 MG TAB PO SCH (08:29)
[2020-04-16] MEDS: CLOPIDOGREL 75 MG TAB PO SCH (08:29)
[2020-04-16] MEDS: FUROSEMIDE 40 MG TAB PO SCH ×2 (08:29→15:11)
[2020-04-16] MEDS: amLODIPine 10 MG TAB PO SCH (08:29)
[2020-04-16] MEDS: CHOLECALCIFEROL 1,000 UNIT TAB PO SCH (08:30)
[2020-04-16] MEDS: hydrALAZINE HCL 50 MG TAB PO SCH ×2 (08:30→15:11)
[2020-04-16] MEDS: DICYCLOMINE 10 MG CAP PO SCH (08:30)
[2020-04-16] MEDS: METOPROLOL TARTRATE 50 MG TAB PO SCH (08:31)
[2020-04-16] MEDS: rOPINIRole HCL 4 MG TABLET PO SCH ×2 (08:31→15:11)
[2020-04-16] MEDS: HYDROcodone/APAP 7.5-325MG 1 EACH TAB PO SCH ×2 (08:31→12:56)
[2020-04-16] MEDS: SUCRALFATE 1 GM TAB PO SCH (08:32)
[2020-04-16] MEDS ORDERED: ASPIRIN 81 MG PO SCH (09:00)
[2020-04-16] MEDS ORDERED: ASPIRIN 325 MG TAB PO SCH (09:00)
[2020-04-16 12:02] LABS: Glucose,Whole Blood 188 mg/dL (75-99)
[2020-04-16 12:47] VITALS: BP 134/58; TEMP 98.1
[2020-04-16] MEDS: RANOLAZINE 500 MG TAB.ER.12H PO SCH (12:56)
--- NOTE | 2020-04-16 13:54 | P.PN ---
Subjective This is a pleasant 74-year-old female past medical history significant for coronary artery disease, COPD, diabetes mellitus, hypertension and dyslipidemia. She is status post successful PCI of the ostium of the left circumflex as well as distal left main. She follows in the office with Dr. Mccullough. She is seen and examined sitting up in the chair in no acute distress. She has no symptoms of chest discomfort, shortness of breath, dizziness or palpitations. Blood pressure 134/58 heart rate 68 afebrile maintaining oxygen saturation on room air. Currently maintained on amlodipine 10 mg daily, aspirin 325 mg daily, atorvastatin 80 mg daily, Plavix 75 mg daily, hydralazine 50 mg 3 times a day, Lasix 40 mg twice a day, ranexa 500 mg BID and metoprolol 50 mg twice a day. GENERAL: Well-appearing, well-nourished and in no acute distress. NECK: Supple without JVD or thyromegaly. LUNGS: Breath sounds clear to auscultation bilaterally. Respiration equal and unlabored. No wheezes, rales or rhonchi. HEART: Regular rate and rhythm without murmurs, rubs or gallops. S1 and S2 heard. EXTREMITIES: Normal range of motion, no edema. No clubbing or cyanosis. Peripheral pulses intact. Right femoral artery access site clean, dry and intact with no evidence of hematoma or ecchymosis. ASSESSMENT Non-ST elevated IA s/p PCI circumflex and left main Coronary artery disease with prior PCI of the LAD earlier this year Ischemic cardiomyopathy Diabetes mellitus Hypertension Dyslipidemia PLAN Decrease aspirin to 81 mg daily. Follow up renal function in the outpatient setting in 3 days and we will address resuming lisinopril if her kidney function has stabilized. Follow up with Dr. Mccullough in the office in 1 week. Nurse Practitioner note has been reviewed, I agree with a documented findings and plan of care. Patient was seen and examined. Objective - Vital Signs Vital signs: Vital Signs Temp 98.1 F 04/16/20 12:00 Pulse 60 04/16/20 12:00 Resp 18 04/16/20 12:00 BP 134/58 04/16/20 12:00 Pulse Ox 94 L 04/16/20 12:00 Intake & Output 04/15/20 04/16/20 04/16/20 18:59 06:59 18:59 Intake Total 480 540 Output Total 400 Balance 480 140 Weight 108.9 kg Intake: Oral 480 540 Output: Urine 400 Other: Voiding Method Toilet Indwelling Catheter Toilet # Voids 2 - Labs CBC & Chem 7: 04/15/20 07:44 04/14/20 06:56 Labs: Abnormal Lab Results - Last 24 Hours (Table) 04/15/20 04/15/20 04/16/20 Range/Units 17:42 20:21 05:34 POC Glucose (mg/dL) 208 H 185 H 154 H (75-99) mg/dL 04/16/20 Range/Units 12:01 POC Glucose (mg/dL) 188 H (75-99) mg/dL
[2020-04-16 14:57] VITALS: PULSE 61
[2020-04-16 15:02] VITALS: BMI 37.5
--- NOTE | 2020-04-16 15:30 | CDI ---
Documentation Clarification Form Date: 04/16/2020 02:51:18 PM From: Courtney Lopez RN CCDS Admit Date: 04/12/2020 03:36:00 AM Patient Name: Lorelei Brand Visit Number: [id number] Discharge Date: ATTENTION: The Clinical Documentation Specialists (CDI) and [facility] Coding Staff appreciate your assistance in clarifying documentation. Please respond to the clarification below the line at the bottom and electronically sign. The CDI & [facility] Coding staff will review the response and follow-up if needed. Please note: Queries are made part of the Legal Health Record. If you have any questions, please contact the author of this message via ITS. Dr. Medardo Grande Conflicting documentation is found in the medical record Pulmonary Progress Notes 04/13, 04/14 & 04/15 Acute on chronic systolic heart failure Internal Medicine Progress Note 04/13 Acute on chronic diastolic heart failure History/Risk Factors: 74-year-old male presents to the ED with chest pain. Medical History COPD, DM, HTN, and CHF. Admission Diagnosis Non-ST elevated [place] Clinical Indicators: 04/12 VS/Pulse OX: B/P 117/79; HR 100; Temp 98.1 F Oral; RR 18; SpO2 99% room air 04/12 BNP: 1020 04/13 Echocardiogram Results: Moderate concentric left ventricular hypertrophy. Overall left ventricular systolic function is low normal wit, an EF between 50- 55%. 04/12 Chest X Ray: Mild cardiomegaly and pulmonary vascular congestion. Bilateral interstitial opacities Treatment: 04/12 Lasix ivp Q 12 changed to Oral 04/14;04/12 Lopressor Oral BID; In your professional opinion, can you please clarify the acuity and type of CHF if known? Acute on Chronic Systolic heart failure Unable to Determine Other, please specify (Last Revision: August 2017) MTDD
--- NOTE | 2020-04-16 18:46 | P.PN ---
Subjective Progress Note Date: 04/16/20 Principal diagnosis: Acute non-ST segment elevated [place] Acute hypoxic respiratory failure Acute pulmonary edema Acute on chronic systolic heart failure due to ischemic cardiomyopathy Acute kidney injury History of coronary artery disease Diabetes mellitus Morbid obesity History of DVT Sleep disorder breathing and sleep apnea refuses CPA 04/16/2020, patient seen eval examined during the rounds labs reviewed medications reviewed care plan discussed, respiratory status remains stable sitting upright in chair breathing comfortably continued to deny sleep study, oxygen saturation is 94%, hemodynamic status stable patient remains afebrile discussed with primary services plan is to discharge the patient on follow-up as outpatient 04/15/2020, patient seen eval examined during the round labs reviewed medications reviewed care plan discussed, respiratory status remains stable, denies any chest pain, sitting upright on the chair, 04/14/2020, patient seen eval examined during the rounds sitting upright in chair breathing comfortably, denies any chest pain ongoing slight shortness of breath is present, cell count continue to improve 12,000, CN saturation dropped down to 90% on 2 L 97-98%, This is a 74-year-old female well-known to me for history of coronary artery disease and chronic systolic heart failure, she also has a chronic history of atrial fibrillation, patient came into the hospital for evaluation of substernal chest heaviness and pain started yesterday morning, pain was persistent even after taking nitroglycerin throughout the day, came into the hospital for further evaluation and intervention and treatment patient has been well-known to cardiovascular services, patient had a cardiac cath and angiogram in November 2019 with a stent placed to LAD at that time ejection fraction was just 30% diffuse hypokinesia LV with mild TR and MR were noted, patient was place on IV heparin and IV nitro drip, a diagnosis of non-ST segment elevated [place] was made, patient underwent cardiac cath and angiogram, patient was noted to have a significant stenosis of origin of circumflex underwent stent placement by some on, post procedure patient developed cardiogenic pulmonary edema required IV furosemide oxygen was down to 6 L subsequently admitted into the ICU for close monitoring and observation, currently patient is sitting upright breathing comfortably on 2 L oxygen, hemodynamically stable last set of blood pressure was 127 a 66 she is afebrile, chest x-ray performed today revealed chronic emphysematous changes along with parenchymal fibrotic changes small bilateral pleural effusion with interstitial edema predominantly more so on the left side compared right side was noted, this is also identified, white cell count is 14,000 with a hemoglobin and hematocrit 9.7 and 32, sodium is 131 year and creatinine 30 and 1.0, specific questioning patient denies any chest pain denies any cough or sputum production she is been evaluated for possible transfer to stepdown unit now Objective - Vital Signs Vital signs: Vital Signs Temp 98.1 F 04/16/20 12:00 Pulse 61 04/16/20 14:00 Resp 18 04/16/20 14:00 BP 134/58 04/16/20 12:00 Pulse Ox 94 L 04/16/20 12:00 Intake & Output 04/15/20 04/16/20 04/16/20 18:59 06:59 18:59 Intake Total 480 540 Output Total 400 Balance 480 140 Weight 108.9 kg 108.9 kg Intake: Oral 480 540 Output: Urine 400 Other: Voiding Method Toilet Indwelling Catheter Toilet # Voids 2 - Exam - Constitutional General appearance: disheveled, morbidly obese, no acute distress - EENT Eyes: PERRLA Ears: bilateral: normal - Neck Neck: normal ROM Carotids: bilateral: upstroke normal Thyroid: bilateral: normal size - Respiratory Respiratory: bilateral: CTA, diminished - Cardiovascular Rhythm: regular Heart sounds: normal: S1, S2 - Gastrointestinal General gastrointestinal: normal bowel sounds - Neurologic Neurologic: CNII-XII intact - Musculoskeletal Musculoskeletal: gait normal, generalized weakness - Psychiatric Psychiatric: A&O x's 3, appropriate affect, intact judgment & insight - Labs CBC & Chem 7: 04/15/20 07:44 04/14/20 06:56 Labs: Abnormal Lab Results - Last 24 Hours (Table) 04/15/20 04/16/20 04/16/20 Range/Units 20:21 05:34 12:01 POC Glucose (mg/dL) 185 H 154 H 188 H (75-99) mg/dL Assessment and Plan Assessment: Acute non-ST segment elevated [place] Acute hypoxic respiratory failure Acute pulmonary edema Acute on chronic systolic heart failure due to ischemic cardiomyopathy Acute kidney injury History of coronary artery disease Diabetes mellitus Morbid obesity History of DVT Sleep disorder breathing and sleep apnea refuses CPAP Plan: Continue supplemental oxygen Deep breathing exercise incentive spirometry Gentle diuresis Hold on antibiotics as white cell count is normal x-ray nonspecific symptoms are absent Increase activity as tolerated Maximal medical therapy for ischemic cardiomyopathy Further recommendations pending plan of care as per clinical response of patient
--- NOTE | 2020-04-24 01:11 | PN ---
PROGRESS NOTE ADDENDUM: Acute on chronic systolic heart failure. MMODL / IJN: [id number] /
--- NOTE | 2020-04-24 16:21 | PN ---
PROGRESS NOTE [id number]-old white female with acute on chronic systolic heart failure. MMODL / IJN: [id number] /
== END 2020-04-16 16:10 | disposition home or self-care (01) | DRG 246 ==
LOC: EC 01:31 → 3SCARD 03:36 → 2SICU 12:25 → 3SCARD 04-13 13:53
PROVIDERS: ADMIT Family Medicine; ATTEND Family Medicine
PROC: 027135Z Dilation of Coronary Artery, Two Arteries with Two Drug-eluting Intraluminal Devices, Percutaneous Approach (ICD-10-PCS; principal; 2020-04-12 10:30)
PROC: B2111ZZ Fluoroscopy of Multiple Coronary Arteries using Low Osmolar Contrast (ICD-10-PCS; 2020-04-12 10:30)
PROC: 4A023N7 Measurement of Cardiac Sampling and Pressure, Left Heart, Percutaneous Approach (ICD-10-PCS; 2020-04-12 10:30)
PROC: 5A09357 Assistance with Respiratory Ventilation, Less than 24 Consecutive Hours, Continuous Positive Airway Pressure (ICD-10-PCS; 2020-04-12 10:30)
DX: I21.4 Non-ST elevation (NSTEMI) myocardial infarction (principal); J96.01 Acute respiratory failure with hypoxia; I50.23 Acute on chronic systolic (congestive) heart failure; E87.1 Hypo-osmolality and hyponatremia; Z68.41 Body mass index [BMI] 40.0-44.9, adult; N17.9 Acute kidney failure, unspecified; E78.5 Hyperlipidemia, unspecified; E66.01 Morbid (severe) obesity due to excess calories; E11.9 Type 2 diabetes mellitus without complications; I11.0 Hypertensive heart disease with heart failure; I25.110 Atherosclerotic heart disease of native coronary artery with unstable angina pectoris; I25.5 Ischemic cardiomyopathy; Z20.828 Contact with and (suspected) exposure to other viral communicable diseases; J44.9 Chronic obstructive pulmonary disease, unspecified; K21.9 Gastro-esophageal reflux disease without esophagitis; G47.30 Sleep apnea, unspecified; M19.90 Unspecified osteoarthritis, unspecified site; I25.2 Old myocardial infarction; Z79.02 Long term (current) use of antithrombotics/antiplatelets; Z79.4 Long term (current) use of insulin; Z79.82 Long term (current) use of aspirin; Z79.899 Other long term (current) drug therapy; Z88.1 Allergy status to other antibiotic agents; Z88.8 Allergy status to other drugs, medicaments and biological substances; Z91.09 Other allergy status, other than to drugs and biological substances; Z80.0 Family history of malignant neoplasm of digestive organs; Z86.718 Personal history of other venous thrombosis and embolism; Z87.19 Personal history of other diseases of the digestive system; Z82.49 Family history of ischemic heart disease and other diseases of the circulatory system; Z87.891 Personal history of nicotine dependence
CPT/HCPCS: 36415; 71045; 80048; 80053; 80061; 82150; 83690; 83735; 83880; 84484; 85025; 85379; 85610; 85730; 87635; 92978; 93005; 93306; 93454; 96365; 96366; 96368; 96375; 96376; 99291

== ENCOUNTER 2020-04-29 09:51 | Emergency (ER) | payer MEDICARE, OTHER ==
[2020-04-29 10:08] VITALS: RESP 18
[2020-04-29] MEDS ORDERED: SODIUM CHLORIDE 0.9% 1,000 ML IV STA (10:34)
[2020-04-29 10:57] LABS: Anisocytosis Slight; Basophils # (A) 0.1 k/uL (0-0.2); Basophils % (A) 1 %; Eosinophils # (A) 0.2 k/uL (0-0.7); Eosinophils % (A) 2 %; HGB 8.9 gm/dL (11.4-16.0); Hypochromasia Moderate; Lymphocytes # (A) 2.4 k/uL (1.0-4.8); Lymphocytes % (A) 19 %; MCH 22.7 pg (25.0-35.0); MCHC 31.7 g/dL (31.0-37.0); MCV 71.6 fL (80.0-100.0); Mean Platelet Volume 6.3; Microcytosis Marked; Monocytes # (A) 0.8 k/uL (0-1.0); Monocytes % (A) 6 %; Neutrophils # (A) 8.7 k/uL (1.3-7.7); Neutrophils % (A) 70 %; Platelet Count 360 k/uL (150-450); Poikilocytosis Slight; RBC 3.91 m/uL (3.80-5.40); RDW 18.1 % (11.5-15.5); WBC 12.4 k/uL (3.8-10.6)
--- NOTE | 2020-04-29 10:58 | ED ---
Female Urogenital HPI - General Chief complaint: Urogenital Stated complaint: Hypotensive, back pain Time Seen by Provider: 04/29/20 10:15 Source: patient Mode of arrival: wheelchair Limitations: no limitations - History of Present Illness Initial comments: Patient is a 74-year-old female, history heart disease, presenting to emergency Department with complaints of bilateral lower back pain, urinary frequency as well as low blood pressure. Patient states her visiting home nurse came today secondary to her chronic foot wounds when they took her blood pressure, it was low. Patient states she called her doctor, Dr. Grande who recommended patient come into the ER for evaluation. She recently had her cath procedure at the end of last month. She denies any chest pain at this time. She states she does have a little shortness of breath but that is normal for her as she has COPD. Patient does complain of increased urinary frequency, no fever or chills. She denies any abdominal pain, no nausea or vomiting. She states a low back pain is across both sides and feels achy. Patient has no other complaints at this time. Upon arrival to the ER, she is afebrile, blood pressure is 104/67. - Related Data Home Medications Medication Instructions Recorded Confirmed Cholecalciferol [Vitamin D3 (25 1,000 unit PO DAILY 02/26/15 04/29/20 Mcg = 1000 Iu)] Clopidogrel [Plavix] 75 mg PO DAILY 09/05/15 04/29/20 [place]-3 Fatty Acids [[place]-3] 2,000 mg PO DAILY 09/29/18 04/29/20 Dicyclomine [Bentyl] 10 mg PO DAILY 04/16/19 04/29/20 Dulaglutide [Trulicity] 1.5 mg SQ KISER 08/15/19 04/29/20 Insulin Aspart Protam & Aspart 30 unit SQ BID 08/15/19 04/29/20 [NovoLOG MIX 70-30 Flexpen] Metoclopramide [Reglan] 10 mg PO QID PRN 08/15/19 04/29/20 Magnesium Oxide 400 mg PO DAILY 11/02/19 04/29/20 rOPINIRole HCL [Requip] 4 mg PO TID 11/02/19 04/29/20 Formoterol Fumarate [Perforomist] 20 mcg INHALATION RT-BID PRN 11/26/19 04/29/20 levalbuterol HCL [Levalbuterol HCl] 0.63 mg INHALATION RT-QID PRN 11/26/19 04/29/20 Atorvastatin [Lipitor] 80 mg PO HS 02/09/20 04/29/20 Ferrous Sulfate [Iron (65 MG 325 mg PO DAILY 02/09/20 04/29/20 Elemental)] metFORMIN HCL 1,000 mg PO BID 02/09/20 04/29/20 Furosemide [Lasix] 40 mg PO BID@0900,1500 04/12/20 04/29/20 HYDROcodone/APAP 7.5-325MG [[place] 1 tab PO QID 04/12/20 04/29/20 7.5-325] Metoprolol Tartrate [Lopressor] 50 mg PO BID 04/12/20 04/29/20 Nitroglycerin Sl Tabs [Nitrostat] 0.4 mg SL Q5M PRN 04/12/20 04/29/20 Sucralfate [Carafate] 1 gm PO BID 04/12/20 04/29/20 amLODIPine [Norvasc] 10 mg PO DAILY 04/12/20 04/29/20 Isosorbide Mononitrate ER [Imdur] 30 mg PO DAILY 04/29/20 04/29/20 Previous Rx's Medication Instructions Recorded Montelukast Sodium [Singulair] 10 mg PO HS #30 tab 10/25/15 Acetaminophen Tab [Tylenol] 500 mg PO Q6HR PRN tab 06/23/19 Omeprazole [PriLOSEC] 40 mg PO HS #30 cap 11/08/19 Ranolazine [Ranexa] 500 mg PO Q12HR #60 tab.er.12h 11/08/19 hydrALAZINE HCL [Apresoline] 25 mg PO BID 30 Days #60 tab 02/16/20 Aspirin 81 mg PO DAILY chew 04/16/20 Cephalexin [Keflex] 500 mg PO BID 5 Days #10 cap 04/29/20 Allergies Allergy/AdvReac Type Severity Reaction Status Date / Time amoxicillin [From Augmentin] Allergy Rash/Hives Verified 04/29/20 10:45 clavulanic acid Allergy Rash/Hives Verified 04/29/20 10:45 [From Augmentin] metronidazole [From Flagyl] Allergy Nausea & Verified 04/29/20 10:45 Vomiting adhesive tape AdvReac bruises,"paper Verified 04/29/20 10:45 tape is ok" albuterol AdvReac Rapid Verified 04/29/20 10:45 Heart Rate stress test injection Allergy Anaphylaxis Uncoded 04/12/20 07:18 Review of Systems ROS Statement: Those systems with pertinent positive or pertinent negative responses have been documented in the HPI. ROS Other: All systems not noted in ROS Statement are negative. 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, cardiomyopathy, NIDDM type II, neuropathy bilateral feet, bilateral diabetic foot ulcers, past cellulitis, pneumonias, past R lung pne with empyema/surgery, gastritis, colitis/frequent diarrhea, benign colon polyps, renal disease stage III, IRA with no device used d/t severe clausterphobia, home oxygen at 2L/NC at HS, occasional lower leg edema, RLS, Last Myocardial Infarction Date:: 2019 History of Any Multi-Drug Resistant Organisms: None Reported Past Surgical History: Appendectomy, Breast Surgery, Cholecystectomy, Heart Catheterization, Heart Catheterization With Stent Additional Past Surgical History / Comment(s): PCI with stents, R lung thoracotomy/decortication for empyema, bilateral feet/sores debrided, L breast benign bx, colonoscopy/benign polypectomy, EGD Past Anesthesia/Blood Transfusion Reactions: No Reported Reaction Additional Past Anesthesia/Blood Transfusion Reaction / Comment(s): severe claustrophobia Date of Last Stent Placement:: 11/27/19 Past Psychological History: No Psychological Hx Reported Smoking Status: Former smoker Past Alcohol Use History: None Reported Past Drug Use History: None Reported - Past Family History Brother(s) Family Medical History: Cancer Additional Family Medical History / Comment(s): Colon cancer Father Family Medical History: Chest Pain / Angina Additional Family Medical History / Comment(s): Father of a ID at the age of 77yrs. Mother Family Medical History: Chest Pain / Angina Additional Family Medical History / Comment(s): Mother of a ID at the age of 74yrs. General Exam - General Exam Comments Initial Comments: GENERAL: Patient is well-developed and well-nourished. Patient is nontoxic and in no acute distress. HEAD: Atraumatic, normocephalic. EYES: Pupils equal round and reactive to light, extraocular movements intact, sclera anicteric, conjunctiva are normal. Eyelids were unremarkable. ENT: TMs normal, nares patent, oropharynx clear without exudates. Moist mucous membranes. NECK: Normal range of motion, supple without lymphadenopathy or JVD. LUNGS: Unlabored respirations. Breath sounds clear to auscultation bilaterally and equal. No wheezes rales or rhonchi. HEART: Regular rate and rhythm without murmurs, rubs or gallops. ABDOMEN: Soft, nontender, normoactive bowel sounds. No guarding, no rebound. No masses appreciated. : Deferred MUSCULOSKELETAL: Normal extremities with adequate strength and normal range of motion, no pitting or edema. No clubbing or cyanosis. No pain with palpation of the lumbar spine, lumbar paraspinals. NEUROLOGICAL: Patient is alert and oriented x 3. Motor and sensory are also intact. Cranial nerves II through XII grossly intact. Symmetrical smile. Normal speech, normal gait. PSYCH: Normal mood, normal affect. SKIN: Warm, Dry, normal turgor, no rashes or lesions noted. Limitations: no limitations Course Vital Signs 04/29/20 04/29/20 04/29/20 10:06 11:39 12:53 Temperature 98.5 F Pulse Rate 65 66 69 Respiratory 18 18 18 Rate Blood Pressure 104/67 95/55 108/56 O2 Sat by Pulse 96 98 98 Oximetry 04/29/20 13:19 Temperature 98.9 F Pulse Rate 66 Respiratory 18 Rate Blood Pressure 118/57 O2 Sat by Pulse 98 Oximetry Medical Decision Making - Medical Decision Making Patient is a 74-year-old female here with history of heart disease, COPD, presenting with urinary frequency, lightheadedness, low blood pressure started today. She was sent in by her PCP, Dr. Grande. Patient's blood pressure on arrival is 104/67, she is afebrile. Her exam is unremarkable, patient's white count is 12.4, this is chronically elevated. Sodium is 126 which is also chronic in nature, lactic acid, elevated at 2.7, troponin is negative. Urine shows evidence of infection, urine bacteria, urine culture is pending. EKG shows no acute process, chest x-ray is normal. Patient was given a liter fluids and also 1 g of Rocephin. I did discuss case with patient's PCP, Dr. Grande, who is okay with patient being discharged. Patient does not want to stay in the hospital. She will follow-up with his office in the next 1-2 days. Return austen nguyen were discussed with the patient and she verbalized understanding. I will send her a prescription of Keflex to continue with this evening. Case discussed with Dr. Nelson. - Lab Data Result diagrams: 04/29/20 10:38 04/29/20 10:38 Lab Results 04/29/20 04/29/20 04/29/20 Range/Units 10:38 10:38 10:38 WBC 12.4 H (3.8-10.6) k/uL RBC 3.91 (3.80-5.40) m/uL Hgb 8.9 L (11.4-16.0) gm/dL Hct 28.0 L (34.0-46.0) % MCV 71.6 L (80.0-100.0) fL MCH 22.7 L (25.0-35.0) pg MCHC 31.7 (31.0-37.0) g/dL RDW 18.1 H (11.5-15.5) % Plt Count 360 (150-450) k/uL MPV 6.3 Neutrophils % 70 % Lymphocytes % 19 % Monocytes % 6 % Eosinophils % 2 % Basophils % 1 % Neutrophils # 8.7 H (1.3-7.7) k/uL Lymphocytes # 2.4 (1.0-4.8) k/uL Monocytes # 0.8 (0-1.0) k/uL Eosinophils # 0.2 (0-0.7) k/uL Basophils # 0.1 (0-0.2) k/uL Hypochromasia Moderate Poikilocytosis Slight Anisocytosis Slight Microcytosis Marked Sodium 126 L (137-145) mmol/L Potassium 5.1 (3.5-5.1) mmol/L Chloride 93 L (98-107) mmol/L Carbon Dioxide 24 (22-30) mmol/L Anion Gap 9 mmol/L BUN 41 H (7-17) mg/dL Creatinine 1.26 H (0.52-1.04) mg/dL Est GFR (CKD-EPI)AfAm 49 (>60 ml/min/1.73 sqM) Est GFR (CKD-EPI)NonAf 43 (>60 ml/min/1.73 sqM) Glucose 100 H (74-99) mg/dL Lactic Ac Sepsis Rflx Plasma Lactic Acid Mesfin (0.7-2.0) mmol/L Calcium 9.1 (8.4-10.2) mg/dL Total Bilirubin 0.3 (0.2-1.3) mg/dL AST 23 (14-36) U/L ALT 19 (4-34) U/L Alkaline Phosphatase 91 (38-126) U/L Troponin I (0.000-0.034) ng/mL Total Protein 6.3 (6.3-8.2) g/dL Albumin 3.5 (3.5-5.0) g/dL Urine Color Yellow Urine Appearance Cloudy H (Clear) Urine pH 5.5 (5.0-8.0) Ur Specific [place] 1.008 (1.001-1.035) Urine Protein Negative (Negative) Urine Glucose (UA) Negative (Negative) Urine Ketones Negative (Negative) Urine Blood Negative (Negative) Urine Nitrite Negative (Negative) Urine Bilirubin Negative (Negative) Urine Urobilinogen <2.0 (<2.0) mg/dL Ur Leukocyte Esterase Moderate H (Negative) Urine RBC 4 (0-5) /hpf Urine WBC 9 H (0-5) /hpf Ur Squamous Epith Cells 3 (0-4) /hpf Amorphous Sediment Rare H (None) /hpf Urine Bacteria Occasional H (None) /hpf Hyaline Casts 11 H (0-2) /lpf Urine Mucus Rare H (None) /hpf 04/29/20 04/29/20 04/29/20 Range/Units 10:38 10:38 11:12 WBC (3.8-10.6) k/uL RBC (3.80-5.40) m/uL Hgb (11.4-16.0) gm/dL Hct (34.0-46.0) % MCV (80.0-100.0) fL MCH (25.0-35.0) pg MCHC (31.0-37.0) g/dL RDW (11.5-15.5) % Plt Count (150-450) k/uL MPV Neutrophils % % Lymphocytes % % Monocytes % % Eosinophils % % Basophils % % Neutrophils # (1.3-7.7) k/uL Lymphocytes # (1.0-4.8) k/uL Monocytes # (0-1.0) k/uL Eosinophils # (0-0.7) k/uL Basophils # (0-0.2) k/uL Hypochromasia Poikilocytosis Anisocytosis Microcytosis Sodium (137-145) mmol/L Potassium (3.5-5.1) mmol/L Chloride (98-107) mmol/L Carbon Dioxide (22-30) mmol/L Anion Gap mmol/L BUN (7-17) mg/dL Creatinine (0.52-1.04) mg/dL Est GFR (CKD-EPI)AfAm (>60 ml/min/1.73 sqM) Est GFR (CKD-EPI)NonAf (>60 ml/min/1.73 sqM) Glucose (74-99) mg/dL Lactic Ac Sepsis Rflx Y Plasma Lactic Acid Mesfin 2.7 H* (0.7-2.0) mmol/L Calcium (8.4-10.2) mg/dL Total Bilirubin (0.2-1.3) mg/dL AST (14-36) U/L ALT (4-34) U/L Alkaline Phosphatase (38-126) U/L Troponin I <0.012 (0.000-0.034) ng/mL Total Protein (6.3-8.2) g/dL Albumin (3.5-5.0) g/dL Urine Color Urine Appearance (Clear) Urine pH (5.0-8.0) Ur Specific [place] (1.001-1.035) Urine Protein (Negative) Urine Glucose (UA) (Negative) Urine Ketones (Negative) Urine Blood (Negative) Urine Nitrite (Negative) Urine Bilirubin (Negative) Urine Urobilinogen (<2.0) mg/dL Ur Leukocyte Esterase (Negative) Urine RBC (0-5) /hpf Urine WBC (0-5) /hpf Ur Squamous Epith Cells (0-4) /hpf Amorphous Sediment (None) /hpf Urine Bacteria (None) /hpf Hyaline Casts (0-2) /lpf Urine Mucus (None) /hpf - EKG Data EKG Comments: Sinus rhythm with first-degree AV block, T-wave abnormalities, similar to previous EKG on 03/10/2020. Jugular rate 69, P interval to 32, QTC 428. Disposition Clinical Impression: Urinary tract infection, Dehydration, Low back pain Disposition: HOME SELF-CARE Condition: Stable Instructions (If sedation given, give patient instructions): Urinary Tract Infection in Women (ED) Additional Instructions: Please return to the Emergency Department if symptoms worsen or any other concerns. Take antibiotic as prescribed. Follow up with your regular doctor. Prescriptions: Cephalexin [Keflex] 500 mg PO BID 5 Days #10 cap Is patient prescribed a controlled substance at d/c from ED?: No Referrals: Medardo Grande MD [Primary Care Provider] - 1-2 days
[2020-04-29 11:05] LABS: Albumin 3.5 g/dL (3.5-5.0); Calcium 9.1 mg/dL (8.4-10.2); Potassium 5.1 mmol/L (3.5-5.1); Total Bilirubin 0.3 mg/dL (0.2-1.3); Total Protein 6.3 g/dL (6.3-8.2)
[2020-04-29 11:18] LABS: Amorphous Sediment,Urine Rare /hpf; Appearance,Urine Cloudy (Clear); Bacteria,Urine Occasional /hpf; Bilirubin,Urine Negative (Negative); Blood,Urine Negative (Negative); Color,Urine Yellow; Glucose,Urine (UA) Negative (Negative); Hyaline Casts,Urine 11 /lpf (0-2); Ketones,Urine Negative (Negative); Leukocyte Esterase,Urine Moderate (Negative); Mucus,Urine Rare /hpf; Nitrite,Urine Negative (Negative); PH, Urine 5.5 (5.0-8.0); Protein,Urine Negative (Negative); RBC,Urine 4 /hpf (0-5); Specific Gravity,Urine 1.008 (1.001-1.035); Squamous Epithelial Cell,Urine 3 /hpf (0-4); Urobilinogen,Urine <2.0 mg/dL (<2.0); WBC,Urine 9 /hpf (0-5)
--- NOTE | 2020-04-29 12:22 | XR ---
EXAMINATION TYPE: XR chest 2V DATE OF EXAM: 04/29/2020 COMPARISON: 04/13/2020 HISTORY: Shortness of breath TECHNIQUE: Frontal and lateral views of the chest are obtained. FINDINGS: Scattered senescent parenchymal changes noted. Hyperinflation compatible with COPD. No evidence for infiltrate. No evidence for atelectasis. Blunting right costophrenic angle is unchang ed. Heart size is stable. Mediastinal structures are stable and grossly unremarkable. No evidence for hilar prominence. Degenerative changes dorsal spine. IMPRESSION: 1. No evidence for acute pulmonary disease.
[2020-04-29] MEDS ORDERED: cefTRIAXone IN SWFI 1,000 MG/10 ML SYRINGE IVP STA (13:04)
[2020-04-29 13:28] VITALS: BP 118/57; PULSE 66; TEMP 98.9
== END 2020-04-29 13:19 | disposition home or self-care (01) ==
LOC: EC 09:51
DX: E86.0 Dehydration (principal); N39.0 Urinary tract infection, site not specified; J44.9 Chronic obstructive pulmonary disease, unspecified; I50.9 Heart failure, unspecified; I25.10 Atherosclerotic heart disease of native coronary artery without angina pectoris; E11.40 Type 2 diabetes mellitus with diabetic neuropathy, unspecified; G25.81 Restless legs syndrome; N18.30 Chronic kidney disease, stage 3 unspecified; I13.0 Hypertensive heart and chronic kidney disease with heart failure and stage 1 through stage 4 chronic kidney disease, or unspecified chronic kidney disease; K21.9 Gastro-esophageal reflux disease without esophagitis; E78.5 Hyperlipidemia, unspecified; I25.2 Old myocardial infarction; M19.90 Unspecified osteoarthritis, unspecified site; G47.33 Obstructive sleep apnea (adult) (pediatric); Z79.02 Long term (current) use of antithrombotics/antiplatelets; Z79.4 Long term (current) use of insulin; Z79.899 Other long term (current) drug therapy; Z87.891 Personal history of nicotine dependence; Z95.5 Presence of coronary angioplasty implant and graft; Z90.49 Acquired absence of other specified parts of digestive tract; Z99.89 Dependence on other enabling machines and devices; Z88.0 Allergy status to penicillin; Z88.1 Allergy status to other antibiotic agents; Z88.8 Allergy status to other drugs, medicaments and biological substances; Z91.048 Other nonmedicinal substance allergy status; Z82.49 Family history of ischemic heart disease and other diseases of the circulatory system
CPT/HCPCS: 36415; 93005; 80053; 83605; 84484; 85025; 81001; 71046; 99285; 96374; 96361; J0696

== ENCOUNTER 2020-06-30 20:44 | Inpatient (IN) | payer MEDICARE, OTHER ==
--- NOTE | 2020-06-30 21:30 | XR ---
EXAMINATION TYPE: XR chest 2V DATE OF EXAM: 06/30/2020 COMPARISON: 04/29/2020. HISTORY: Chest pain. TECHNIQUE: Frontal and lateral views of the chest are obtained. FINDINGS: There is moderate interstitial edema with superimposed hazy and streaky opacities. No sign ificant pleural effusion, or pneumothorax seen. The cardiomegaly. The osseous structures are intac t. IMPRESSION: CHF with superimposed infiltrates not excluded.
[2020-06-30 21:40] LABS: Anisocytosis Slight; Basophils % (A) 0 %; Eosinophils # (A) 0.3 k/uL (0-0.7); Eosinophils % (A) 3 %; HCT 34.4 % (34.0-46.0); HGB 10.7 gm/dL (11.4-16.0); Hypochromasia Moderate; Lymphocytes # (A) 3.6 k/uL (1.0-4.8); Lymphocytes % (A) 31 %; MCHC 31.1 g/dL (31.0-37.0); MCV 70.8 fL (80.0-100.0); Mean Platelet Volume 6.6; Microcytosis Marked; Monocytes # (A) 0.8 k/uL (0-1.0); Monocytes % (A) 7 %; Neutrophils # (A) 6.6 k/uL (1.3-7.7); Neutrophils % (A) 57 %; Platelet Count 405 k/uL (150-450); RBC 4.86 m/uL (3.80-5.40); WBC 11.6 k/uL (3.8-10.6)
[2020-06-30 21:50] LABS: Albumin 4.2 g/dL (3.5-5.0); Calcium 9.7 mg/dL (8.4-10.2); Magnesium 1.7 mg/dL (1.6-2.3); Potassium 4.8 mmol/L (3.5-5.1); Total Bilirubin 0.4 mg/dL (0.2-1.3); Total Protein 7.3 g/dL (6.3-8.2)
[2020-06-30] MEDS ORDERED: MORPHINE SULFATE 4 MG/ML SYRINGE IVP STA (21:53)
[2020-06-30] MEDS ORDERED: SODIUM CHLORIDE 0.9% 1,000 ML IV ONE (21:54)
[2020-06-30 22:04] LABS: INR 0.9 (<1.2); Partial Thromboplastin Time 23.1 sec (22.0-30.0); Prothrombin Time 9.5 sec (9.0-12.0)
[2020-06-30] MEDS ORDERED: HEPARIN SODIUM,PORCINE 5,000 UNIT/ML 1 ML VIAL IV PRN (22:14)
[2020-06-30] MEDS ORDERED: HEPARIN SODIUM,PORCINE 5,000 UNIT/ML 1 ML VIAL IV ONE (22:14)
[2020-06-30] MEDS ORDERED: NITROGLYCERIN OINT 1 INCH/GM PACKET TOPICAL STA (22:16)
[2020-06-30] MEDS ORDERED: NALOXONE 0.4 MG/ML 1 ML VIAL IV PRN (22:46)
--- NOTE | 2020-06-30 22:46 | ED ---
Chest Pain HPI - General Chief Complaint: Chest Pain Stated Complaint: Chest Pain, arm pain Time Seen by Provider: 06/30/20 20:50 Source: patient Mode of arrival: wheelchair Limitations: no limitations - History of Present Illness Initial Comments: Patient is a 74-year-old female with past medical history of coronary artery disease who presents to the emergency room with reported chest pain. States the pain has been intermittent for the past 4 days. This appeared to be worse after food intake. States that she took 4 nitro at home today without any improvement in her pain. She will take 2 tums and 2 nitro together with only minimal improvement. Has admitted to nausea without associated vomiting. Denies shortness of breath. No fevers or chills. Denies cough. Pain radiates into the left arm. She did take 2 full dose aspirin today. Last catheterization was in March for which the patient did require stent placement. Follows with Dr. Ren. No other alleviating, precipitating or modifying factors - Related Data Home Medications Medication Instructions Recorded Confirmed Cholecalciferol [Vitamin D3 (25 1,000 unit PO DAILY 02/26/15 07/01/20 Mcg = 1000 Iu)] Clopidogrel [Plavix] 75 mg PO DAILY 09/05/15 07/01/20 [place]-3 Fatty Acids [[place]-3] 2,000 mg PO DAILY 09/29/18 07/01/20 Dicyclomine [Bentyl] 10 mg PO DAILY 04/16/19 07/01/20 Dulaglutide [Trulicity] 1.5 mg SQ KISER 08/15/19 07/01/20 Insulin Aspart Protam & Aspart 30 unit SQ BID 08/15/19 07/01/20 [NovoLOG MIX 70-30 Flexpen] Metoclopramide [Reglan] 10 mg PO QID PRN 08/15/19 07/01/20 Magnesium Oxide 400 mg PO DAILY 11/02/19 07/01/20 rOPINIRole HCL [Requip] 4 mg PO TID 11/02/19 07/01/20 Atorvastatin [Lipitor] 80 mg PO HS 02/09/20 07/01/20 Ferrous Sulfate [Iron (65 MG 325 mg PO DAILY 02/09/20 07/01/20 Elemental)] metFORMIN HCL 1,000 mg PO BID 02/09/20 07/01/20 Furosemide [Lasix] 40 mg PO DAILY 04/12/20 07/01/20 HYDROcodone/APAP 7.5-325MG [[place] 1 tab PO QID 04/12/20 07/01/20 7.5-325] Metoprolol Tartrate [Lopressor] 50 mg PO BID 04/12/20 07/01/20 Nitroglycerin Sl Tabs [Nitrostat] 0.4 mg SL Q5M PRN 04/12/20 07/01/20 Sucralfate [Carafate] 1 gm PO QID 04/12/20 07/01/20 Isosorbide Dinitrate 30 mg PO DAILY 07/01/20 07/01/20 lisinopriL [Zestril] 5 mg PO DAILY 07/01/20 07/01/20 Previous Rx's Medication Instructions Recorded Montelukast Sodium [Singulair] 10 mg PO HS #30 tab 10/25/15 Acetaminophen Tab [Tylenol] 500 mg PO Q6HR PRN tab 06/23/19 Omeprazole [PriLOSEC] 40 mg PO HS #30 cap 11/08/19 Ranolazine [Ranexa] 500 mg PO Q12HR #60 tab.er.12h 11/08/19 hydrALAZINE HCL [Apresoline] 25 mg PO BID 30 Days #60 tab 02/16/20 Aspirin 81 mg PO DAILY chew 04/16/20 Allergies Allergy/AdvReac Type Severity Reaction Status Date / Time amoxicillin [From Augmentin] Allergy Rash/Hives Verified 06/30/20 20:50 clavulanic acid Allergy Rash/Hives Verified 06/30/20 20:50 [From Augmentin] metronidazole [From Flagyl] Allergy Nausea & Verified 06/30/20 20:50 Vomiting adhesive tape AdvReac bruises,"paper Verified 06/30/20 20:50 tape is ok" albuterol AdvReac Rapid Verified 06/30/20 20:50 Heart Rate stress test injection Allergy Anaphylaxis Uncoded 04/12/20 07:18 Review of Systems ROS Statement: Those systems with pertinent positive or pertinent negative responses have been documented in the HPI. ROS Other: All systems not noted in ROS Statement are negative. EKG Findings - EKG Comments: EKG Findings:: EKG demonstrates a sinus rhythm with a first-degree block. Rate of 92. ME interval 228. QRS 108. QTC 452. Incomplete left bundle branch block. Significant ST depression in 2, 3 and aVF as well as V5 and V6. ST elevation in aVR. Frequent PVCs Past Medical History Past Medical History: Asthma, Coronary Artery Disease (CAD), Heart Failure, COPD, Diabetes Mellitus, Deep Vein Thrombosis (DVT), GERD/Reflux, Hyperlipidemia, Hypertension, Myocardial Infarction ([place]), Osteoarthritis (OA), Pneumonia, Renal Disease, Skin Disorder, Sleep Apnea/CPAP/BIPAP Additional Past Medical History / Comment(s): Other hx: MIs with last OK 11/2019 with cardiogenic shock/pulmonary edema/respiratory failure, cardiomyopathy, NIDDM type II, neuropathy bilateral feet, bilateral diabetic foot ulcers, past cellulitis, pneumonias, past R lung pne with empyema/surgery, gastritis, colitis/frequent diarrhea, benign colon polyps, renal disease stage III, IRA with no device used d/t severe clausterphobia, home oxygen at 2L/NC at HS, occasional lower leg edema, RLS, Last Myocardial Infarction Date:: 2019 History of Any Multi-Drug Resistant Organisms: None Reported Past Surgical History: Appendectomy, Breast Surgery, Cholecystectomy, Heart Catheterization, Heart Catheterization With Stent Additional Past Surgical History / Comment(s): PCI with stents, R lung thoracotomy/decortication for empyema, bilateral feet/sores debrided, L breast benign bx, colonoscopy/benign polypectomy, EGD Past Anesthesia/Blood Transfusion Reactions: No Reported Reaction Additional Past Anesthesia/Blood Transfusion Reaction / Comment(s): severe claustrophobia Date of Last Stent Placement:: 11/27/19 Past Psychological History: No Psychological Hx Reported Smoking Status: Former smoker Past Alcohol Use History: None Reported Past Drug Use History: None Reported - Past Family History Brother(s) Family Medical History: Cancer Additional Family Medical History / Comment(s): Colon cancer Father Family Medical History: Chest Pain / Angina Additional Family Medical History / Comment(s): Father of a OK at the age of 77yrs. Mother Family Medical History: Chest Pain / Angina Additional Family Medical History / Comment(s): Mother of a OK at the age of 74yrs. General Exam Limitations: no limitations General appearance: alert, in no apparent distress Head exam: Present: atraumatic, normocephalic, normal inspection Eye exam: Present: normal appearance, PERRL, EOMI. Absent: scleral icterus, conjunctival injection, periorbital swelling ENT exam: Present: normal exam, mucous membranes moist Neck exam: Present: normal inspection. Absent: tenderness, meningismus, lymphadenopathy Respiratory exam: Present: normal lung sounds bilaterally, other (speaks in full sentences with no signs of respiratory distress). Absent: respiratory distress, wheezes, rales, rhonchi, stridor Cardiovascular Exam: Present: regular rate, normal rhythm, normal heart sounds. Absent: systolic murmur, diastolic murmur, rubs, gallop, clicks GI/Abdominal exam: Present: soft, normal bowel sounds. Absent: distended, tenderness, guarding, rebound, rigid Extremities exam: Present: normal inspection, full ROM, normal capillary refill. Absent: tenderness, pedal edema, joint swelling, calf tenderness Back exam: Present: normal inspection Neurological exam: Present: alert, oriented X3, CN II-XII intact Psychiatric exam: Present: normal affect, normal mood Skin exam: Present: warm, dry, intact, normal color. Absent: rash Course Vital Signs 06/30/20 06/30/20 06/30/20 20:46 22:18 23:34 Temperature 97.7 F Pulse Rate 91 91 85 Pulse Rate [ Pulse Oximetery ] Respiratory 17 18 18 Rate Blood Pressure 159/70 169/84 145/89 Blood Pressure [Right Arm] O2 Sat by Pulse 98 97 99 Oximetry 07/01/20 07/01/20 07/01/20 02:00 03:00 05:00 Temperature Pulse Rate 88 87 90 Pulse Rate [ 115 H Pulse Oximetery ] Respiratory 24 20 24 Rate Blood Pressure 117/75 135/63 142/78 Blood Pressure 172/84 [Right Arm] O2 Sat by Pulse 97 98 97 Oximetry 07/01/20 07/01/20 07/01/20 06:00 07:00 07:20 Temperature 97.6 F 98.5 F Pulse Rate 92 87 Pulse Rate [ 122 H Pulse Oximetery ] Respiratory 20 18 18 Rate Blood Pressure 145/78 144/74 Blood Pressure 175/82 [Right Arm] O2 Sat by Pulse 97 92 L 97 Oximetry Chest Pain MDM - MDM Upon arrival patient was placed into trauma bay 2. A thorough history and physical exam was performed. Patient placed on continuous pulse ox and cardiac monitoring. 12-lead EKG was performed. Does demonstrate isolated elevation in aVR with reciprocal depression in the inferior and lateral leads. This is compared patient's previous EKG and does demonstrate some similar morphology however the depression is much more significant today. Patient has already taken 2 full dose aspirin. She was given a dose of morphine. Lab studies were conducted. Troponin is negative. Patient was given a dose of Protonix and a GI cocktail. Spoke with Dr. Altman at 2215 regarding patient's symptoms and EKG. Discussed concern for EKG changes, clinical symptoms and history of coronary disease. He is requesting heparinization at this time for unstable angina. States patient does not need immediate cath at this time for isolated AVR elevation. Patient also given Nitropaste. I recommended admission and discussed care with patient and her son. Discussed likelihood of cath tomorrow. Spoke with Dr. Rosas who agreed to admit the patient. Patient currently awaiting a bed on the floor Critical Care Time Critical Care Time: Yes Critical Care Time: 32 minutes Disposition Clinical Impression: Chest pain, Unstable angina pectoris Disposition: ADMITTED IP TO THIS [facility] Condition: Serious Is patient prescribed a controlled substance at d/c from ED?: No Decision to Admit Reason: Admit from EC Decision Date: 06/30/20 Decision Time: 22:46
[2020-06-30] MEDS: HEPARIN SOD,PORK IN 0.45% NACL 25,000 UNIT in 0.45% NACL 1 250ML.BAG IV SCH (23:00)
[2020-06-30] MEDS ORDERED: MAG HYDROX/AL HYDROX/SIMETH 30 ML, HYOSCYAMINE ELIXIR 10 ML, LIDOCAINE VISCOUS 2% 10 ML PO ONE ×3 (23:29)
[2020-07-01] MEDS: PANTOPRAZOLE 40 MG/10 ML VIAL IVP SCH ×2 (00:02→12:19)
[2020-07-01] MEDS: MORPHINE SULFATE 4 MG/ML SYRINGE IV PRN ×3 (03:30→17:04)
[2020-07-01 04:27] LABS: Calcium 9.3 mg/dL (8.4-10.2)
[2020-07-01 04:29] LABS: Anisocytosis Slight; Basophils % (A) 0 %; Eosinophils # (A) 0.2 k/uL (0-0.7); Eosinophils % (A) 2 %; HCT 33.9 % (34.0-46.0); HGB 10.2 gm/dL (11.4-16.0); Hypochromasia Marked; Lymphocytes # (A) 2.5 k/uL (1.0-4.8); Lymphocytes % (A) 25 %; MCH 22.1 pg (25.0-35.0); MCHC 30.2 g/dL (31.0-37.0); MCV 73.1 fL (80.0-100.0); Mean Platelet Volume 6.8; Microcytosis Marked; Monocytes # (A) 0.6 k/uL (0-1.0); Monocytes % (A) 6 %; Neutrophils # (A) 6.3 k/uL (1.3-7.7); Neutrophils % (A) 64 %; Platelet Count 324 k/uL (150-450); RBC 4.64 m/uL (3.80-5.40); RDW 19.9 % (11.5-15.5); WBC 9.8 k/uL (3.8-10.6)
[2020-07-01 04:47] LABS: Potassium 4.4 mmol/L (3.5-5.1)
[2020-07-01] MEDS: NITROGLYCERIN SL TABS 0.4 MG TAB SUBLINGUAL ONE ×2 (08:06→08:35)
[2020-07-01] MEDS ORDERED: FUROSEMIDE 10 MG/ML 10 ML VIAL IV STA (08:20)
[2020-07-01] MEDS ORDERED: NITROGLYCERIN-D5W PMX 50 MG in DEXTROSE/WATER 1 250ML.BAG IV SCH (08:30)
[2020-07-01] MEDS ORDERED: SODIUM CHLORIDE 0.9% 1,000 ML in EMPTY BAG 1 BAG IV ONE (08:59)
[2020-07-01] MEDS ORDERED: ALPRAZolam 0.25 MG TAB PO PRN (08:59)
[2020-07-01] MEDS ORDERED: ATORVASTATIN 80 MG TAB PO STA (08:59)
[2020-07-01] MEDS ORDERED: ASPIRIN 325 MG TAB PO STA (08:59)
[2020-07-01] MEDS ORDERED: ALPRAZolam 0.5 MG TAB PO PRN (08:59)
[2020-07-01] MEDS ORDERED: ASPIRIN 81 MG PO SCH (09:00)
[2020-07-01] MEDS ORDERED: METOPROLOL TARTRATE 25 MG TAB PO SCH (09:00)
[2020-07-01 11:30] LABS: Glucose,Whole Blood 214 mg/dL (75-99)
--- NOTE | 2020-07-01 11:43 | P.HPIM ---
History of Present Illness H&P Date: 07/01/20 Chief Complaint: Intermittent chest pain for last 4 days This is a 74-year-old female, seen evaluated examined on 6 floor, patient admitted into the hospital through the emergency department with retrosternal chest pain intermittent for the last 4 days has been progressive, some association with food is present, patient does take nitro as needed, she took 4 nitro without any improvement in pain decided to come into the hospital, patient also took aspirin, patient has a previous cardiac cath angiogram performed in March which was unremarkable, cardiology has been consulted, patient currently on heparin and nitro drip being transferred to ICU likely had a stat cardiac cath and angiogram, chest x-ray consistent with CHF-like changes, EKG incomplete left bundle branch block along with inferior ischemic changes Review of Systems All systems: negative Past Medical History Past Medical History: Asthma, Coronary Artery Disease (CAD), Heart Failure, COPD, Diabetes Mellitus, Deep Vein Thrombosis (DVT), GERD/Reflux, Hyperlipidemia, Hypertension, Myocardial Infarction (ND), Osteoarthritis (OA), Pneumonia, Renal Disease, Skin Disorder, Sleep Apnea/CPAP/BIPAP Additional Past Medical History / Comment(s): Other hx: 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/pulmonary edema/respiratory failure, cardiomyopathy, NIDDM type II, neuropathy bilateral feet, bilateral diabetic foot ulcers, past cellulitis, pneumonias, past R lung pne with empyema/surgery, gastritis, colitis/frequent diarrhea, benign colon polyps, renal disease stage III, IRA with no device used d/t severe clausterphobia, home oxygen at 2L/NC at HS, occasional lower leg edema, RLS, Colitis Last Myocardial Infarction Date:: 2019 History of Any Multi-Drug Resistant Organisms: None Reported Past Surgical History: Appendectomy, Breast Surgery, Cholecystectomy, Heart Catheterization, Heart Catheterization With Stent Additional Past Surgical History / Comment(s): PCI with stents, R lung tho racotomy/decortication for empyema, bilateral feet/sores debrided, L breast benign bx, colonoscopy/benign polypectomy, EGD Past Anesthesia/Blood Transfusion Reactions: No Reported Reaction Additional Past Anesthesia/Blood Transfusion Reaction / Comment(s): severe claustrophobia Date of Last Stent Placement:: 11/27/19 Past Psychological History: No Psychological Hx Reported Additional Psychological History / Comment(s): Severe claustrophobia. Pt resides alone in her home. She has 14 stair steps to get up to her bathroom/bedroom. She is established with [facility]- a nurse for wound care and PT and has Dr. Kebede for home wound care. Smoking Status: Former smoker Past Alcohol Use History: None Reported Additional Past Alcohol Use History / Comment(s): STARTED SMOKING AGE 18 (1963) AND QUIT 1994. SMOKED 1 PPD. STATES SHE IS AN ALCOHOLIC AND QUIT DRINKING over 30 yrs ago Past Drug Use History: None Reported - Past Family History Brother(s) Family Medical History: Cancer Additional Family Medical History / Comment(s): Colon cancer Father Family Medical History: Chest Pain / Angina Additional Family Medical History / Comment(s): Father of a ND at the age of 77yrs. Mother Family Medical History: Chest Pain / Angina Additional Family Medical History / Comment(s): Mother of a ND at the age of 74yrs. Medications and Allergies Home Medications Medication Instructions Recorded Confirmed Type Cholecalciferol [Vitamin D3 (25 1,000 unit PO DAILY 02/26/15 07/01/20 History Mcg = 1000 Iu)] Clopidogrel [Plavix] 75 mg PO DAILY 09/05/15 07/01/20 History Montelukast Sodium [Singulair] 10 mg PO HS #30 tab 10/25/15 07/01/20 Rx Dwight-3 Fatty Acids [[place]-3] 2,000 mg PO DAILY 09/29/18 07/01/20 History Dicyclomine [Bentyl] 10 mg PO DAILY 04/16/19 07/01/20 History Acetaminophen Tab [Tylenol] 500 mg PO Q6HR PRN tab 06/23/19 07/01/20 Rx Dulaglutide [Trulicity] 1.5 mg SQ KISER 08/15/19 07/01/20 History Insulin Aspart Protam & Aspart 30 unit SQ BID 08/15/19 07/01/20 History [NovoLOG MIX 70-30 Flexpen] Metoclopramide [Reglan] 10 mg PO QID PRN 08/15/19 07/01/20 History Magnesium Oxide 400 mg PO DAILY 11/02/19 07/01/20 History rOPINIRole HCL [Requip] 4 mg PO TID 11/02/19 07/01/20 History Omeprazole [PriLOSEC] 40 mg PO HS #30 cap 11/08/19 07/01/20 Rx Ranolazine [Ranexa] 500 mg PO Q12HR #60 tab.er.12h 11/08/19 07/01/20 Rx Atorvastatin [Lipitor] 80 mg PO HS 02/09/20 07/01/20 History Ferrous Sulfate [Iron (65 MG 325 mg PO DAILY 02/09/20 07/01/20 History Elemental)] metFORMIN HCL 1,000 mg PO BID 02/09/20 07/01/20 History hydrALAZINE HCL [Apresoline] 25 mg PO BID 30 Days #60 tab 02/16/20 07/01/20 Rx Furosemide [Lasix] 40 mg PO DAILY 04/12/20 07/01/20 History HYDROcodone/APAP 7.5-325MG [[place] 1 tab PO QID 04/12/20 07/01/20 History 7.5-325] Metoprolol Tartrate [Lopressor] 50 mg PO BID 04/12/20 07/01/20 History Nitroglycerin Sl Tabs [Nitrostat] 0.4 mg SL Q5M PRN 04/12/20 07/01/20 History Sucralfate [Carafate] 1 gm PO QID 04/12/20 07/01/20 History Aspirin 81 mg PO DAILY chew 04/16/20 07/01/20 Rx Isosorbide Dinitrate 30 mg PO DAILY 07/01/20 07/01/20 History lisinopriL [Zestril] 5 mg PO DAILY 07/01/20 07/01/20 History Allergies Allergy/AdvReac Type Severity Reaction Status Date / Time amoxicillin [From Augmentin] Allergy Rash/Hives Verified 06/30/20 20:50 clavulanic acid Allergy Rash/Hives Verified 06/30/20 20:50 [From Augmentin] metronidazole [From Flagyl] Allergy Nausea & Verified 06/30/20 20:50 Vomiting adhesive tape AdvReac bruises,"paper Verified 06/30/20 20:50 tape is ok" albuterol AdvReac Rapid Verified 06/30/20 20:50 Heart Rate stress test injection Allergy Anaphylaxis Uncoded 04/12/20 07:18 Physical Exam Vitals: Vital Signs Temp Pulse Pulse Resp BP BP Pulse Ox 07/01/20 08:00 120 H 07/01/20 07:20 98.5 F 87 18 144/74 97 07/01/20 07:00 97.6 F 122 H 18 175/82 92 L 07/01/20 06:00 92 20 145/78 97 07/01/20 05:00 90 24 142/78 97 07/01/20 03:00 87 20 135/63 98 07/01/20 02:00 88 115 H 24 117/75 172/84 97 06/30/20 23:34 85 18 145/89 99 06/30/20 22:18 91 18 169/84 97 06/30/20 20:46 97.7 F 91 17 159/70 98 Intake and Output 06/30/20 07/01/20 07/01/20 22:59 06:59 14:59 Intake Total 55.266 Balance 55.266 Intake: Intake, IV Titration 55.266 Amount Heparin Sod,Pork in 0.45% 55.266 NaCl 25,000 unit In 0.45 % NaCl 1 250ml.bag @ 8 UNITS/KG/HR 8.89 mls/hr IV .Q24H [facility] Rx#: [id number] Other: # Voids 1 Weight 111.13 kg 111.13 kg - Constitutional General appearance: average body habitus, cooperative, disheveled - EENT Eyes: EOMI, PERRLA ENT: normal oropharynx Ears: bilateral: normal - Neck Neck: normal ROM Carotids: bilateral: upstroke normal Thyroid: bilateral: normal size - Respiratory Respiratory: bilateral: CTA, diminished - Cardiovascular Rhythm: regular Heart sounds: normal: S1, S2 - Gastrointestinal General gastrointestinal: distended, normal bowel sounds, soft - Neurologic Neurologic: CNII-XII intact - Musculoskeletal Musculoskeletal: gait normal, generalized weakness, strength equal bilaterally - Psychiatric Psychiatric: A&O x's 3, appropriate affect, intact judgment & insight Results CBC & Chem 7: 07/01/20 03:57 07/01/20 03:57 Labs: Abnormal Lab Results - Last 24 Hours (Table) 06/30/20 06/30/20 07/01/20 Range/Units 21:17 21:17 03:57 WBC 11.6 H (3.8-10.6) k/uL Hgb 10.7 L (11.4-16.0) gm/dL Hct (34.0-46.0) % MCV 70.8 L (80.0-100.0) fL MCH 22.0 L (25.0-35.0) pg MCHC (31.0-37.0) g/dL RDW 20.0 H (11.5-15.5) % APTT 31.2 H (22.0-30.0) sec Sodium 126 L (137-145) mmol/L Chloride 89 L (98-107) mmol/L Carbon Dioxide (22-30) mmol/L BUN 48 H (7-17) mg/dL Creatinine 1.59 H (0.52-1.04) mg/dL Glucose 170 H (74-99) mg/dL POC Glucose (mg/dL) (75-99) mg/dL Alkaline Phosphatase 131 H (38-126) U/L Troponin I (0.000-0.034) ng/mL 07/01/20 07/01/20 07/01/20 Range/Units 03:57 03:57 03:57 WBC (3.8-10.6) k/uL Hgb 10.2 L (11.4-16.0) gm/dL Hct 33.9 L (34.0-46.0) % MCV 73.1 L (80.0-100.0) fL MCH 22.1 L (25.0-35.0) pg MCHC 30.2 L (31.0-37.0) g/dL RDW 19.9 H (11.5-15.5) % APTT (22.0-30.0) sec Sodium 128 L (137-145) mmol/L Chloride 95 L (98-107) mmol/L Carbon Dioxide 21 L (22-30) mmol/L BUN 44 H (7-17) mg/dL Creatinine 1.27 H (0.52-1.04) mg/dL Glucose 116 H (74-99) mg/dL POC Glucose (mg/dL) (75-99) mg/dL Alkaline Phosphatase (38-126) U/L Troponin I 0.167 H* (0.000-0.034) ng/mL 07/01/20 Range/Units 11:29 WBC (3.8-10.6) k/uL Hgb (11.4-16.0) gm/dL Hct (34.0-46.0) % MCV (80.0-100.0) fL MCH (25.0-35.0) pg MCHC (31.0-37.0) g/dL RDW (11.5-15.5) % APTT (22.0-30.0) sec Sodium (137-145) mmol/L Chloride (98-107) mmol/L Carbon Dioxide (22-30) mmol/L BUN (7-17) mg/dL Creatinine (0.52-1.04) mg/dL Glucose (74-99) mg/dL POC Glucose (mg/dL) 214 H (75-99) mg/dL Alkaline Phosphatase (38-126) U/L Troponin I (0.000-0.034) ng/mL Chest x-ray: report reviewed, image reviewed (CHF-like changes) Thrombosis Risk Factor Assmnt - Choose All That Apply Any of the Below Risk Factors Present?: Yes Each Factor Represents 1 point: Abnormal pulmonary function (COPD), Obesity (BMI >25) Other Risk Factors: Yes Each Risk Factor Represents 2 Points: Age 61-74 years Each Risk Factor Represents 3 Points: Family history of DVT/PE Thrombosis Risk Factor Assessment Total Risk Factor Score: 7 Thrombosis Risk Factor Assessment Level: High Risk Assessment and Plan Assessment: Retrosternal chest pain with ongoing shortness of breath and unstable angina with elevated tropes Unstable angina Chronic kidney disease Coronary artery disease Congestive heart failure acute on chronic systolic heart failure History of prior DVT COPD Sleep disorder breathing and sleep apnea refused CPAP or BiPAP machine Chronic hypoxic respiratory failure on home oxygen at bedtime Plan: Continue heparin with nitro cardiovascular services evaluated the patient, being considered for an emergent cardiac cath and angiogram further recommendations pending plan of care as per clinical response of patient Time with Patient: Greater than 30
[2020-07-01] MEDS: ONDANSETRON 4 MG/2 ML VIAL IVP PRN (11:51)
--- NOTE | 2020-07-01 11:58 | P.CRDCN ---
History of Present Illness History of present illness: HISTORY OF PRESENTING ILLNESS This is a pleasant 74-year-old female past medical history significant for coronary artery disease status post recent PCI of the ostial circumflex, pr oximal LAD and distal left main March 2020, hypertension, dyslipidemia, COPD, ischemic cardiomyopathy that has recently improved and history of cardiogenic shock. She follows in the office with Dr. Dr. Mccullough. We have been asked to see in consultation for chest pain. She states for the previous one week she has been experiencing frequent episodes of tightness in the midsternal region. It occurs at rest. When it happens she takes 2 nitroglycerin and 2 Tums tablets and shortly thereafter her discomfort improves. The symptoms have been happening more frequently prompting her to come to the hospital for further evaluation. Initially she denied any associated shortness of breath however this morning at the time of my exam she was seen sitting on the edge of the bed to tachyneic and in mild respiratory distress. She states this is the first time she had shortness of breath associated with chest pain. She states her chest feels tight. She was given SL nitro and IV morphine without relief. She denies feeling dizzy, palpitations or nausea/vomiting. She is not diaphoretic. DIAGNOSTICS EKG reveals sinus mechanism with first-degree AV block, frequent PVCs, incomplete left bundle branch block and [address] depression inferior laterally. Telemetry tracings reveals sinus mechanism. Chest xray moderate interstitial edema. Laboratory reviewed, WBC on admission 11.6 repeat today 9.8, hemoglobin 10.2, platelets 324, sodium 128, potassium 4.4, creatinine 1.27, magnesium 1.7, first 2 troponins were negative and third was 0.167, NT proBNP 2130. Current cardiac medications include atorvastatin 80 mg daily, Plavix 75 mg daily, Lasix 40 mg daily, hydralazine 25 mg twice a day, isosorbide dinitrate 30 mg daily, lisinopril 5 mg daily, Lopressor 50 mg twice a day, Ranexa 500 mg twice a day and aspirin 81 mg daily. REVIEW OF SYSTEMS At the time of my exam: CONSTITUTIONAL: Denies fever or chills. CARDIOVASCULAR: Complains of chest pain, orthopnea and shortness of breath. Denies PND or palpitations. RESPIRATORY: Denies cough. GASTROINTESTINAL: Denies abdominal pain, diarrhea, constipation, nausea or vomiting. MUSCULOSKELETAL: Denies myalgias. NEUROLOGIC: Denies numbness, tingling, headacbe or weakness. ENDOCRINE: Denies fatigue, weight change, polydipsia or polyurina. GENITOURINARY: Denies burning, hematuria or urgency with micturation. HEMATOLOGIC: Denies history of anemia or bleeding. PHYSICAL EXAMINATION Blood pressure 144/74 heart rate 120 afebrile and maintaining oxygen saturation on nasal cannula. CONSTITUTIONAL:Tachyneic. HEENT: Head is normocephalic. Pupils are equal, round. Sclerae anicteric. Mucous membranes of the mouth are moist. No JVD. No carotid bruit. CHEST EXAMINATION: Bibasilar rales, greater on the left. No chest wall tenderness is noted on palpation or with deep breathing. HEART EXAMINATION: Regular rate and rhythm. S1, S2 heard. No murmurs, gallops or rub. ABDOMEN: Soft, nontender. Positive bowel sounds. EXTREMITIES: Right lower extremity 1+ pitting edema, caste in place to left lower extremity. NEUROLOGIC EXAMINATION: Patient is awake, alert and oriented x3. ASSESSMENT Unstable angina Acute on chronic systolic and diastolic heart failure Coronary artery disease s/p recent PCI Hypertension Dyslipidemia Ischemic cardiomyopathy COPD Diabetes mellitus Former nicotine dependence Non-healing ulcer left lower extremity, follows in wound clinic PLAN Give one dose of IV lasix 60 mg now and then 40 mg IV BID. Initiate nitroglycerin drip and titrate for chest pain. Resume aspirin and plavix as previously ordered. Continue lopressor. Obtain 2D echocardiogram and doppler study to assess cardiac structure and function. Recommend cardiac catheterization. I have discussed the risks, benefits and alternative therapies for the above-mentioned procedure and for both sedation/analgesia as well as necessary blood product administration, if indicated, as they pertain to this patient. The patient has indicated understanding and acceptance of the risks and procedures discussed. Questions have been answered appropriately. The patient is concerned she will be unable to lay flat during the procedure due to her breathing. Discussed with Dr. Mccullough and we recommend anesthesia present during her procedure and possible intubation if she cannot maintain her airway. Transfer to ICU. Further recommendations to follow based on clinical course. Thank you kindly for this consultation. Nurse Practitioner note has been reviewed, I agree with a documented findings and plan of care. Patient was seen and examined. Past Medical History Past Medical History: Asthma, Coronary Artery Disease (CAD), Heart Failure, COPD, Diabetes Mellitus, Deep Vein Thrombosis (DVT), GERD/Reflux, Hyp erlipidemia, Hypertension, Myocardial Infarction (MD), Osteoarthritis (OA), Pneumonia, Renal Disease, Skin Disorder, Sleep Apnea/CPAP/BIPAP Additional Past Medical History / Comment(s): 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 with cardiogenic shock/pulmonary edema/respiratory failure, cardiomyopathy, NIDDM type II, neuropathy bilateral feet, bilateral diabetic foot ulcers, past cellulitis, pneumonias, past R lung pne with empyema/surgery, gastritis, colitis/frequent diarrhea, benign colon polyps, renal disease stage III, IRA with no device used d/t severe clausterphobia, home oxygen at 2L/NC at HS, occasional lower leg edema, RLS, Last Myocardial Infarction Date:: 2019 History of Any Multi-Drug Resistant Organisms: None Reported Past Surgical History: Appendectomy, Breast Surgery, Cholecystectomy, Heart Catheterization, Heart Catheterization With Stent Additional Past Surgical History / Comment(s): PCI with stents, R lung thoracotomy/decortication for empyema, bilateral feet/sores debrided, L breast benign bx, colonoscopy/benign polypectomy, EGD Past Anesthesia/Blood Transfusion Reactions: No Reported Reaction Additional Past Anesthesia/Blood Transfusion Reaction / Comment(s): severe claustrophobia Date of Last Stent Placement:: 11/27/19 Past Psychological History: No Psychological Hx Reported Smoking Status: Former smoker Past Alcohol Use History: None Reported Past Drug Use History: None Reported - Past Family History Brother(s) Family Medical History: Cancer Additional Family Medical History / Comment(s): Colon cancer Father Family Medical History: Chest Pain / Angina Additional Family Medical History / Comment(s): Father of a MD at the age of 77yrs. Mother Family Medical History: Chest Pain / Angina Additional Family Medical History / Comment(s): Mother of a MD at the age of 74yrs. Medications and Allergies Home Medications Medication Instructions Recorded Confirmed Type Cholecalciferol [Vitamin D3 (25 1,000 unit PO DAILY 02/26/15 07/01/20 History Mcg = 1000 Iu)] Clopidogrel [Plavix] 75 mg PO DAILY 09/05/15 07/01/20 History Montelukast Sodium [Singulair] 10 mg PO HS #30 tab 10/25/15 07/01/20 Rx Prewitt-3 Fatty Acids [Prewitt-3] 2,000 mg PO DAILY 09/29/18 07/01/20 History Dicyclomine [Bentyl] 10 mg PO DAILY 04/16/19 07/01/20 History Acetaminophen Tab [Tylenol] 500 mg PO Q6HR PRN tab 06/23/19 07/01/20 Rx Dulaglutide [Trulicity] 1.5 mg SQ KISER 08/15/19 07/01/20 History Insulin Aspart Protam & Aspart 30 unit SQ BID 08/15/19 07/01/20 History [NovoLOG MIX 70-30 Flexpen] Metoclopramide [Reglan] 10 mg PO QID PRN 08/15/19 07/01/20 History Magnesium Oxide 400 mg PO DAILY 11/02/19 07/01/20 History rOPINIRole HCL [Requip] 4 mg PO TID 11/02/19 07/01/20 History Omeprazole [PriLOSEC] 40 mg PO HS #30 cap 11/08/19 07/01/20 Rx Ranolazine [Ranexa] 500 mg PO Q12HR #60 tab.er.12h 11/08/19 07/01/20 Rx Atorvastatin [Lipitor] 80 mg PO HS 02/09/20 07/01/20 History Ferrous Sulfate [Iron (65 MG 325 mg PO DAILY 02/09/20 07/01/20 History Elemental)] metFORMIN HCL 1,000 mg PO BID 02/09/20 07/01/20 History hydrALAZINE HCL [Apresoline] 25 mg PO BID 30 Days #60 tab 02/16/20 07/01/20 Rx Furosemide [Lasix] 40 mg PO DAILY 04/12/20 07/01/20 History HYDROcodone/APAP 7.5-325MG [[place] 1 tab PO QID 04/12/20 07/01/20 History 7.5-325] Metoprolol Tartrate [Lopressor] 50 mg PO BID 04/12/20 07/01/20 History Nitroglycerin Sl Tabs [Nitrostat] 0.4 mg SL Q5M PRN 04/12/20 07/01/20 History Sucralfate [Carafate] 1 gm PO QID 04/12/20 07/01/20 History Aspirin 81 mg PO DAILY chew 04/16/20 07/01/20 Rx Isosorbide Dinitrate 30 mg PO DAILY 07/01/20 07/01/20 History lisinopriL [Zestril] 5 mg PO DAILY 07/01/20 07/01/20 History Allergies Allergy/AdvReac Type Severity Reaction Status Date / Time amoxicillin [From Augmentin] Allergy Rash/Hives Verified 06/30/20 20:50 clavulanic acid Allergy Rash/Hives Verified 06/30/20 20:50 [From Augmentin] metronidazole [From Flagyl] Allergy Nausea & Verified 06/30/20 20:50 Vomiting adhesive tape AdvReac bruises,"paper Verified 06/30/20 20:50 tape is ok" albuterol AdvReac Rapid Verified 06/30/20 20:50 Heart Rate stress test injection Allergy Anaphylaxis Uncoded 04/12/20 07:18 Physical Exam Vitals: Vital Signs Temp Pulse Resp BP Pulse Ox 07/01/20 07:20 98.5 F 87 18 144/74 97 07/01/20 06:00 92 20 145/78 97 07/01/20 05:00 90 24 142/78 97 07/01/20 03:00 87 20 135/63 98 07/01/20 02:00 88 20 117/75 97 06/30/20 23:34 85 18 145/89 99 06/30/20 22:18 91 18 169/84 97 06/30/20 20:46 97.7 F 91 17 159/70 98 Intake and Output 06/30/20 07/01/20 07/01/20 22:59 06:59 14:59 Intake Total 55.266 Balance 55.266 Intake: Intake, IV Titration 55.266 Amount Heparin Sod,Pork in 0.45% 55.266 NaCl 25,000 unit In 0.45 % NaCl 1 250ml.bag @ 8 UNITS/KG/HR 8.89 mls/hr IV .Q24H [facility] Rx#: [id number] Other: Weight 111.13 kg Results 07/01/20 03:57 07/01/20 03:57 Cardiac Enzymes 06/30/20 06/30/20 06/30/20 Range/Units 21:17 21:17 23:40 AST 26 (14-36) U/L Troponin I <0.012 0.013 (0.000-0.034) ng/mL 07/01/20 Range/Units 03:57 AST (14-36) U/L Troponin I 0.167 H* (0.000-0.034) ng/mL Coagulation 06/30/20 07/01/20 Range/Units 21:17 03:57 PT 9.5 (9.0-12.0) sec APTT 23.1 31.2 H (22.0-30.0) sec CBC 06/30/20 07/01/20 Range/Units 21:17 03:57 WBC 11.6 H 9.8 (3.8-10.6) k/uL RBC 4.86 4.64 (3.80-5.40) m/uL Hgb 10.7 L 10.2 L (11.4-16.0) gm/dL Hct 34.4 33.9 L (34.0-46.0) % Plt Count 405 324 (150-450) k/uL Comprehensive Metabolic Panel 06/30/20 07/01/20 Range/Units 21:17 03:57 Sodium 126 L 128 L (137-145) mmol/L Potassium 4.8 4.4 (3.5-5.1) mmol/L Chloride 89 L 95 L (98-107) mmol/L Carbon Dioxide 25 21 L (22-30) mmol/L BUN 48 H 44 H (7-17) mg/dL Creatinine 1.59 H 1.27 H (0.52-1.04) mg/dL Glucose 170 H 116 H (74-99) mg/dL Calcium 9.7 9.3 (8.4-10.2) mg/dL AST 26 (14-36) U/L ALT 23 (4-34) U/L Alkaline Phosphatase 131 H (38-126) U/L Total Protein 7.3 (6.3-8.2) g/dL Albumin 4.2 (3.5-5.0) g/dL Current Medications Generic Name Dose Route Start Last Admin Trade Name Freq PRN Reason Stop Dose Admin Aspirin 81 mg 07/01/20 09:00 Aspirin 81 Mg PO DAILY [facility] Clopidogrel Bisulfate 75 mg 07/01/20 09:00 Clopidogrel 75 Mg Tab PO DAILY [facility] Furosemide 60 mg 07/01/20 08:20 Furosemide 10 Mg/Ml 10 Ml Vial IV 07/01/20 08:21 ONCE STA Heparin Sodium (Porcine) 0 unit 06/30/20 22:14 07/01/20 05:21 Heparin Sodium,Porcine 5,000 Unit/Ml 1 Ml Vial IV 4,000 unit PER PROTOCOL PRN Administration Low PTT Protocol Heparin Sodium/Sodium Chloride 250 mls @ 8.89 mls/hr 06/30/20 22:15 07/01/20 05:13 25,000 unit/ Sodium Chloride IV 10.7 units/kg/hr .Q24H ANDREW 11.89 mls/hr Titration Protocol 8 UNITS/KG/HR Morphine Sulfate 4 mg 06/30/20 22:46 07/01/20 03:30 Morphine Sulfate 4 Mg/Ml Syringe IV 4 mg Q4HR PRN Administration Severe Pain Naloxone HCl 0.2 mg 06/30/20 22:46 Naloxone 0.4 Mg/Ml 1 Ml Vial IV Q2M PRN Opioid Reversal Pantoprazole Sodium 40 mg 06/30/20 23:30 07/01/20 00:02 Pantoprazole 40 Mg/10 Ml Vial IVP 40 mg DAILY ANDREW Administration Intake and Output 06/30/20 07/01/20 07/01/20 22:59 06:59 14:59 Intake Total 55.266 Balance 55.266 Intake: Intake, IV Titration 55.266 Amount Heparin Sod,Pork in 0.45% 55.266 NaCl 25,000 unit In 0.45 % NaCl 1 250ml.bag @ 8 UNITS/KG/HR 8.89 mls/hr IV .Q24H [facility] Rx#: [id number] Other: Weight 111.13 kg 07/01/20 03:57 07/01/20 03:57
[2020-07-01] MEDS: METOPROLOL TARTRATE 50 MG TAB PO SCH ×2 (12:19→22:19)
[2020-07-01] MEDS: CLOPIDOGREL 75 MG TAB PO SCH (12:20)
[2020-07-01] MEDS: ISOSORBIDE MONONITRATE ER 30 MG TAB.ER.24H PO SCH (12:20)
[2020-07-01] MEDS ORDERED: IV FLUID CONTINUATION 1,000 ML IV ONE (12:32)
[2020-07-01] MEDS ORDERED: PHENYLEPHRINE-0.9% NACL SYG 1,000 MCG/10 ML SYRINGE ONE (12:35)
[2020-07-01] MEDS ORDERED: ePHEDrine SULFATE/0.9% NACL/PF 50 MG/5 ML SYRINGE IV ONE (12:35)
[2020-07-01] MEDS ORDERED: ROCURONIUM 10 MG/ML (5 ML VIAL) IV ONE (12:35)
[2020-07-01] MEDS ORDERED: NITROGLYCERIN-D5W PMX 50 MG/250 ML BOTTLE IV ONE (12:35)
[2020-07-01] MEDS ORDERED: ETOMIDATE 2 MG/ML 10 ML VIAL ONE (12:35)
[2020-07-01] MEDS ORDERED: SUCCINYLCHOLINE CHLORIDE 100 MG/5 ML SYR IV ONE (12:35)
[2020-07-01] MEDS ORDERED: fentaNYL (PF) 50 MCG/ML 2 ML AMP ONE (12:35)
[2020-07-01] MEDS ORDERED: MIDAZOLAM 2 MG/2 ML VIAL ONE (12:35)
[2020-07-01] MEDS ORDERED: LIDOCAINE 1% INJ 10MG/ML (20 ML MDV) ONE (12:35)
[2020-07-01] MEDS ORDERED: LIDOCAINE 1% INJ 10MG/ML (20 ML MDV) SQ ONE (13:19)
[2020-07-01] MEDS ORDERED: RX INFO: IV CONTRAST WAS GIVEN 1 EACH MISC MISCELLANE PRN (13:40)
[2020-07-01] MEDS ORDERED: BIVALIRUDIN BOLUS 250 MG/50 ML IV ONE (14:00)
[2020-07-01] MEDS ORDERED: BIVALIRUDIN 250 MG in SODIUM CHLORIDE 0.9% 50 ML IV ONE (14:02)
[2020-07-01] MEDS ORDERED: IOPAMIDOL-370 125ML BTL INJ ONE (14:21)
[2020-07-01] MEDS ORDERED: IOPAMIDOL-370 100ML BTL INJ ONE (14:29)
[2020-07-01] MEDS: SODIUM CHLORIDE 0.9% 1,000 ML IV SCH (15:15)
--- NOTE | 2020-07-01 15:45 | XR ---
EXAMINATION TYPE: XR chest 1V portable DATE OF EXAM: 07/01/2020 Comparison: 06/30/2020 Clinical History: 74 year-old female tube placement Findings: ET tube tip at the level of the medial clavicular heads. NG tube courses below the diaphragm. Heart i s enlarged. Increasing interstitial and perihilar opacities as well as bibasilar densities. Suspect s mall right effusion. Impression: Mild cardiomegaly with increasing interstitial, perihilar, and basilar opacities. Possible small righ t effusion. Correlate for CHF with edema, ARDS, multifocal pneumonia, etc.
[2020-07-01 15:49] LABS: ABG Base Excess -0.7 mmol/L; ABG HCO3 26 mmol/L (21-25); ABG Oxygen Saturation 98.4 % (94-97); ABG PCO2 53 mmHg (35-45); ABG PO2 294 mmHg (83-108); ABG TCO2 27 mmol/L (19-24); Allen Test Performed? Yes
--- NOTE | 2020-07-01 17:48 | PTCA ---
PERCUTANEOUSTRANS CORORONARY ANGIOGRAPHY DATE OF SERVICE: 07/01/2020 PERFORMING PHYSICIAN: Freddie Caro M.D. PROCEDURES PERFORMED: 1. Successful stenting of the mid left circumflex coronary artery using a 3.25 x 15 mm Xience drug-eluting stent with excellent angiographic results. 2. Successful stenting of the ostial/proximal left circumflex coronary artery using a 3.5 x 12 mm Xience drug-eluting stent with excellent angiographic results. INDICATION: This is a 74-year-old female patient who was admitted to the hospital with chest discomfort and ruled in for acute coronary event. She underwent heart catheterization by Dr. Mccullough and that showed critical disease involving the ostial and proximal left circumflex coronary artery. APPROACH: Right common femoral artery. COMPLICATIONS: None. LEVEL OF SEDATION: Moderate, with sedation length of 10 minutes. PROCEDURE DESCRIPTION: Please refer to the diagnostic heart catheterization that was performed by Dr. Mccullough earlier today. Anticoagulation was initiated using Angiomax. Subsequently I did engage the left main using a JL4 guide. I did wire the LAD using a run-through wire and the left circumflex using a Whisper wire. Subsequently predilatation was performed using a 3.0 x 12 mm balloon for the lesion in the proximal as well as ostial left circumflex. After that I deployed in the mid left circumflex a 3.25 x 15 mm Xience drug-eluting stent and the in the ostial left circumflex a 3.5 x 12 mm Xience drug-eluting stent. The following angiogram showed excellent angiographic results and the procedure was completed without any complication. POST-PROCEDURE MANAGEMENT: 1. Dual anti-platelet therapy. 2. Risk factor modifications. 3. Follow up with the patient. MMODL / IJN: [id number] /
[2020-07-01 19:06] LABS: Glucose,Whole Blood 155 mg/dL (75-99)
[2020-07-01] MEDS: INSULIN ASPART (NovoLOG) 100 UNIT/ML VIAL SQ SCH (19:14)
[2020-07-01] MEDS: FUROSEMIDE 10 MG/ML 4 ML VIAL IV SCH (20:28)
[2020-07-01] MEDS: CHLORHEXIDINE GLUCONATE 15 ML CUP MUCOUS MEM SCH (20:28)
[2020-07-01] MEDS: HEPARIN SOD,PORK IN 0.45% NACL 25,000 UNIT in 0.45% NACL 1 250ML.BAG IV SCH (22:20)
[2020-07-02 00:28] LABS: Glucose,Whole Blood 137 mg/dL (75-99)
[2020-07-02] MEDS: MORPHINE SULFATE 4 MG/ML SYRINGE IV PRN (00:32)
[2020-07-02] MEDS: INSULIN ASPART (NovoLOG) 100 UNIT/ML VIAL SQ SCH ×4 (00:33→16:57)
[2020-07-02 03:58] LABS: Anisocytosis Moderate; Basophils % (A) 0 %; Eosinophils # (A) 0.3 k/uL (0-0.7); Eosinophils % (A) 2 %; HCT 30.5 % (34.0-46.0); HGB 9.2 gm/dL (11.4-16.0); Hypochromasia Marked; Lymphocytes # (A) 2.1 k/uL (1.0-4.8); Lymphocytes % (A) 16 %; MCH 22.3 pg (25.0-35.0); MCHC 30.3 g/dL (31.0-37.0); MCV 73.6 fL (80.0-100.0); Mean Platelet Volume 6.8; Microcytosis Moderate; Monocytes # (A) 0.9 k/uL (0-1.0); Monocytes % (A) 7 %; Neutrophils # (A) 9.4 k/uL (1.3-7.7); Neutrophils % (A) 73 %; Platelet Count 271 k/uL (150-450); RBC 4.14 m/uL (3.80-5.40); RDW 20.4 % (11.5-15.5); WBC 12.9 k/uL (3.8-10.6)
[2020-07-02 04:17] LABS: Potassium 4.3 mmol/L (3.5-5.1)
[2020-07-02 05:28] LABS: ABG Base Excess 1.9 mmol/L; ABG HCO3 27 mmol/L (21-25); ABG Oxygen Saturation 96.7 % (94-97); ABG PCO2 48 mmHg (35-45); ABG PH 7.37 (7.35-7.45); ABG PO2 106 mmHg (83-108); ABG TCO2 29 mmol/L (19-24); Allen Test Performed? Yes
[2020-07-02 05:34] LABS: Glucose,Whole Blood 128 mg/dL (75-99)
[2020-07-02] MEDS ORDERED: HEPARIN SODIUM,PORCINE 10,000 UNIT in SODIUM CHLORIDE 0.9% 1,000 ML IRRIGATION PRN (07:00)
[2020-07-02] MEDS ORDERED: HEPARIN SODIUM,PORCINE 2,500 UNIT in SODIUM CHLORIDE 0.9% 250 ML IRRIGATION PRN (07:00)
--- NOTE | 2020-07-02 08:37 | XR ---
EXAMINATION TYPE: XR chest 1V portable DATE OF EXAM: 07/02/2020 COMPARISON: 07/01/2020 INDICATION: Tube placement TECHNIQUE: Single frontal view of the chest is obtained. FINDINGS: The heart size is mildly prominent. The pulmonary vasculature is mildly prominent. Mild diffuse increased lung markings are present. This is improved from [place]. Minimal right pleural effusion is present. Endotracheal tube tip is above. Nasogastric tube transverses the thorax. IMPRESSION: 1. Findings can be compatible with some mild volume overload which appears to be improving. 2. Lines and catheters discussed above
[2020-07-02] MEDS: ISOSORBIDE MONONITRATE ER 30 MG TAB.ER.24H PO SCH (08:41)
[2020-07-02] MEDS: ASPIRIN 81 MG PO SCH (08:41)
[2020-07-02] MEDS: PANTOPRAZOLE 40 MG/10 ML VIAL IVP SCH (08:42)
[2020-07-02] MEDS: CHLORHEXIDINE GLUCONATE 15 ML CUP MUCOUS MEM SCH (08:42)
[2020-07-02] MEDS: FUROSEMIDE 10 MG/ML 4 ML VIAL IV SCH ×2 (08:42→19:52)
[2020-07-02] MEDS: METOPROLOL TARTRATE 50 MG TAB PO SCH ×2 (08:42→19:52)
[2020-07-02] MEDS: CLOPIDOGREL 75 MG TAB PO SCH (08:42)
--- NOTE | 2020-07-02 09:05 | P.PN ---
Subjective Progress Note Date: 07/02/20 Principal diagnosis: Acute coronary syndrome This is a very pleasant 74-year-old female patient was coronary artery disease as well as hypertension and dyslipidemia who was admitted to the hospital with acute coronary syndrome as well as acute respiratory failure. She underwent a heart catheterization yesterday by Dr. Dr. Mccullough and that revealed patent stents in the LAD was critical disease involving the ostial and proximal left circumflex coronary artery. She underwent successful stenting of the left circumflex from right groin approach The patient was seen today. She still intubated. She is hemodynamically stable. She is possibly going to be extubated later on today. She is on dual antiplatelet therapy. She is on heparin which I am going to stop. Objective - Vital Signs Vital signs: Vital Signs Temp 99.4 F 07/02/20 08:00 Pulse 79 07/02/20 08:00 Resp 16 07/02/20 08:00 BP 96/38 07/02/20 08:00 Pulse Ox 99 07/02/20 08:00 Intake & Output 07/01/20 07/02/20 07/02/20 18:59 06:59 18:59 Intake Total 596.509 753.886 100 Output Total 680 1635 135 Balance -83.491 -881.114 -35 Weight 114.3 kg 113.3 kg Intake: IV 531 600 100 Sodium Chloride 0.9% 1, 200 600 100 000 ml @ 50 mls/hr IV . Q20H [facility] Rx#:[id number] Intake, IV Titration 65.509 153.886 Amount Nitroglycerin-D5w Pmx 50 4.650 mg In Dextrose/Water 1 250ml.bag @ 5 MCG/MIN 1.5 mls/hr IV .Q24H [facility] Rx#: [id number] propofoL 500 mg In Empty 60.859 153.886 Bag 1 bag @ Titrate IV . Q0M [facility] Rx#:[id number] Output: Gastric Drainage 375 Urine 680 1260 135 Other: Voiding Method Indwelling Catheter Indwelling Catheter # Voids 1 - Constitutional General appearance: Present: no acute distress - Respiratory Respiratory: bilateral: diminished - Cardiovascular Rhythm: regular Heart sounds: normal: S1, S2 - Labs CBC & Chem 7: 07/02/20 03:42 07/02/20 03:42 Labs: Abnormal Lab Results - Last 24 Hours (Table) 07/01/20 07/01/20 07/01/20 Range/Units 11:29 15:41 19:04 WBC (3.8-10.6) k/uL Hgb (11.4-16.0) gm/dL Hct (34.0-46.0) % MCV (80.0-100.0) fL MCH (25.0-35.0) pg MCHC (31.0-37.0) g/dL RDW (11.5-15.5) % Neutrophils # (1.3-7.7) k/uL ABG pH 7.30 L (7.35-7.45) ABG pCO2 53 H (35-45) mmHg ABG pO2 294 H (83-108) mmHg ABG HCO3 26 H (21-25) mmol/L ABG Total CO2 27 H (19-24) mmol/L ABG O2 Saturation 98.4 H (94-97) % Sodium (137-145) mmol/L BUN (7-17) mg/dL Creatinine (0.52-1.04) mg/dL Glucose (74-99) mg/dL POC Glucose (mg/dL) 214 H 155 H (75-99) mg/dL 07/02/20 07/02/20 07/02/20 Range/Units 00:27 03:42 03:42 WBC 12.9 H (3.8-10.6) k/uL Hgb 9.2 L (11.4-16.0) gm/dL Hct 30.5 L (34.0-46.0) % MCV 73.6 L (80.0-100.0) fL MCH 22.3 L (25.0-35.0) pg MCHC 30.3 L (31.0-37.0) g/dL RDW 20.4 H (11.5-15.5) % Neutrophils # 9.4 H (1.3-7.7) k/uL ABG pH (7.35-7.45) ABG pCO2 (35-45) mmHg ABG pO2 (83-108) mmHg ABG HCO3 (21-25) mmol/L ABG Total CO2 (19-24) mmol/L ABG O2 Saturation (94-97) % Sodium 132 L (137-145) mmol/L BUN 36 H (7-17) mg/dL Creatinine 1.27 H (0.52-1.04) mg/dL Glucose 124 H (74-99) mg/dL POC Glucose (mg/dL) 137 H (75-99) mg/dL 07/02/20 07/02/20 Range/Units 05:27 05:32 WBC (3.8-10.6) k/uL Hgb (11.4-16.0) gm/dL Hct (34.0-46.0) % MCV (80.0-100.0) fL MCH (25.0-35.0) pg MCHC (31.0-37.0) g/dL RDW (11.5-15.5) % Neutrophils # (1.3-7.7) k/uL ABG pH (7.35-7.45) ABG pCO2 48 H (35-45) mmHg ABG pO2 (83-108) mmHg ABG HCO3 27 H (21-25) mmol/L ABG Total CO2 29 H (19-24) mmol/L ABG O2 Saturation (94-97) % Sodium (137-145) mmol/L BUN (7-17) mg/dL Creatinine (0.52-1.04) mg/dL Glucose (74-99) mg/dL POC Glucose (mg/dL) 128 H (75-99) mg/dL Assessment and Plan Assessment: Assessment #1 acute coronary syndrome #2 status post PCI of the LCx #3 coronary artery disease #4 renal failure #5 multiple comorbid conditions Plan #1 the patient underwent successful stenting of the LCx yesterday #2 continue the current medical regimen #3 continue monitor the kidney function and electrolytes #4 continue dual antiplatelet therapy #5 possible extubation later on today
[2020-07-02] MEDS: SODIUM CHLORIDE 0.9% 1,000 ML IV SCH (10:25)
[2020-07-02 11:28] LABS: Glucose,Whole Blood 150 mg/dL (75-99)
--- NOTE | 2020-07-02 14:58 | P.PN ---
Subjective Progress Note Date: 07/02/20 (Critical care time 35 minutes) 07/02/2020, patient seen eval reexamined in the ICU successfully weaned and extubated patient left on ventilator for ischemic heart disease status post cardiac cath and angiogram where radical stenosis was seen in left circumflex where stent was placed tolerated well due to hypoxia and desaturation patient was kept on respirator overnight this morning placed on CPAP 5 pressure support of 5 arterial blood gas were seen weaning parameters reviewed successfully extubated on supplemental oxygen, hemodynamic status remains stable, white cell count is slightly up 12,900 hemoglobin remained stable showing a downward trend with microcytosis Petrin, hyponatremia slightly improved renal functions also improved, This is a 74-year-old female, seen evaluated examined on 6 floor, patient admitted into the hospital through the emergency department with retrosternal chest pain intermittent for the last 4 days has been progressive, some association with food is present, patient does take nitro as needed, she took 4 nitro without any improvement in pain decided to come into the hospital, patient also took aspirin, patient has a previous cardiac cath angiogram performed in March which was unremarkable, cardiology has been consulted, patient currently on heparin and nitro drip being transferred to ICU likely had a stat cardiac cath and angiogram, chest x-ray consistent with CHF-like changes, EKG incomplete left bundle branch block along with inferior ischemic changes Objective - Vital Signs Vital signs: Vital Signs Temp 98.4 F 07/02/20 12:00 Pulse 98 07/02/20 14:00 Resp 18 07/02/20 14:00 BP 109/33 07/02/20 14:00 Pulse Ox 93 L 07/02/20 14:00 Intake & Output 07/01/20 07/02/20 07/02/20 18:59 06:59 18:59 Intake Total 596.509 753.886 550.906 Output Total 680 1635 1430 Balance -83.491 -881.114 -879.094 Weight 114.3 kg 113.3 kg Intake: IV 531 600 400 Sodium Chloride 0.9% 1, 200 600 400 000 ml @ 50 mls/hr IV . Q20H [facility] Rx#:[id number] Intake, IV Titration 65.509 153.886 50.906 Amount Nitroglycerin-D5w Pmx 50 4.650 mg In Dextrose/Water 1 250ml.bag @ 5 MCG/MIN 1.5 mls/hr IV .Q24H [facility] Rx#: [id number] propofoL 500 mg In Empty 60.859 153.886 50.906 Bag 1 bag @ Titrate IV . Q0M [facility] Rx#:[id number] Oral 100 Output: Gastric Drainage 375 Urine 680 1260 1430 Other: Voiding Method Indwelling Catheter Indwelling Catheter Indwelling Catheter # Voids 1 - Exam - Constitutional General appearance: average body habitus, cooperative, disheveled - EENT Eyes: EOMI, PERRLA ENT: normal oropharynx Ears: bilateral: normal - Neck Neck: normal ROM Carotids: bilateral: upstroke normal Thyroid: bilateral: normal size - Respiratory Respiratory: bilateral: CTA, diminished - Cardiovascular Rhythm: regular Heart sounds: normal: S1, S2 - Gastrointestinal General gastrointestinal: distended, normal bowel sounds, soft - Neurologic Neurologic: CNII-XII intact - Musculoskeletal Musculoskeletal: gait normal, generalized weakness, strength equal bilaterally - Psychiatric Psychiatric: A&O x's 3, appropriate affect, intact judgment & insight - Labs CBC & Chem 7: 07/02/20 03:42 07/02/20 03:42 Labs: Abnormal Lab Results - Last 24 Hours (Table) 07/01/20 07/01/20 07/02/20 Range/Units 15:41 19:04 00:27 WBC (3.8-10.6) k/uL Hgb (11.4-16.0) gm/dL Hct (34.0-46.0) % MCV (80.0-100.0) fL MCH (25.0-35.0) pg MCHC (31.0-37.0) g/dL RDW (11.5-15.5) % Neutrophils # (1.3-7.7) k/uL ABG pH 7.30 L (7.35-7.45) ABG pCO2 53 H (35-45) mmHg ABG pO2 294 H (83-108) mmHg ABG HCO3 26 H (21-25) mmol/L ABG Total CO2 27 H (19-24) mmol/L ABG O2 Saturation 98.4 H (94-97) % Sodium (137-145) mmol/L BUN (7-17) mg/dL Creatinine (0.52-1.04) mg/dL Glucose (74-99) mg/dL POC Glucose (mg/dL) 155 H 137 H (75-99) mg/dL 07/02/20 07/02/20 07/02/20 Range/Units 03:42 03:42 05:27 WBC 12.9 H (3.8-10.6) k/uL Hgb 9.2 L (11.4-16.0) gm/dL Hct 30.5 L (34.0-46.0) % MCV 73.6 L (80.0-100.0) fL MCH 22.3 L (25.0-35.0) pg MCHC 30.3 L (31.0-37.0) g/dL RDW 20.4 H (11.5-15.5) % Neutrophils # 9.4 H (1.3-7.7) k/uL ABG pH (7.35-7.45) ABG pCO2 48 H (35-45) mmHg ABG pO2 (83-108) mmHg ABG HCO3 27 H (21-25) mmol/L ABG Total CO2 29 H (19-24) mmol/L ABG O2 Saturation (94-97) % Sodium 132 L (137-145) mmol/L BUN 36 H (7-17) mg/dL Creatinine 1.27 H (0.52-1.04) mg/dL Glucose 124 H (74-99) mg/dL POC Glucose (mg/dL) (75-99) mg/dL 07/02/20 07/02/20 Range/Units 05:32 11:27 WBC (3.8-10.6) k/uL Hgb (11.4-16.0) gm/dL Hct (34.0-46.0) % MCV (80.0-100.0) fL MCH (25.0-35.0) pg MCHC (31.0-37.0) g/dL RDW (11.5-15.5) % Neutrophils # (1.3-7.7) k/uL ABG pH (7.35-7.45) ABG pCO2 (35-45) mmHg ABG pO2 (83-108) mmHg ABG HCO3 (21-25) mmol/L ABG Total CO2 (19-24) mmol/L ABG O2 Saturation (94-97) % Sodium (137-145) mmol/L BUN (7-17) mg/dL Creatinine (0.52-1.04) mg/dL Glucose (74-99) mg/dL POC Glucose (mg/dL) 128 H 150 H (75-99) mg/dL Assessment and Plan Assessment: Unstable angina with acute coronary artery disease status post stent of left circumflex Acute hypoxic respiratory failure Retrosternal chest pain with ongoing shortness of breath and unstable angina with elevated tropes Unstable angina Chronic kidney disease Coronary artery disease Congestive heart failure acute on chronic systolic heart failure History of prior DVT COPD Sleep disorder breathing and sleep apnea refused CPAP or BiPAP machine Chronic hypoxic respiratory failure on home oxygen at bedtime Plan: Successfully weaned and extubated Continue supplemental oxygen Start clear liquid diet as tolerated advanced to 1800 ADA diet Monitor renal functions closely Continue maximal medical therapy Continue dual agent antiplatelet therapy Findings of cardiac catheter angiogram reviewed Time with Patient: Greater than 30
--- NOTE | 2020-07-02 15:00 | ECHOF ---
Referral Reason:nstemi MEASUREMENTS -------- HEIGHT: 170.2 cm WEIGHT: 112.9 kg BP: 121/48 IVSd: 1.1 cm (0.6 - 1.1) LVIDd: 5.7 cm (3.9 - 5.3) LVPWd: 1.2 cm (0.6 - 1.1) IVSs: 1.8 cm LVIDs: 3.7 cm LVPWs: 1.8 cm LA Diam: 4.1 cm (2.7 - 3.8) RVIDd: 3.8 cm (< 3.3) LAESV Index (A-L): 27.90 ml/m Ao Diam: 3.1 cm (2.0 - 3.7) AV Cusp: 2.0 cm (1.5 - 2.6) EPSS: 1.2 cm MV E Dorian: 1.20 m/s MV DecT: 149 ms MV A Dorian: 1.03 m/s MV E/A Ratio: 1.16 AV maxP.44 mmHg AV meanP.67 mmHg RAP: 15.00 mmHg RVSP: 42.48 mmHg MV EF SLOPE: 82.51 mm/s (70 - 150) MV EXCURSION: 19.44 mm (> 18.000) FINDINGS -------- Sinus rhythm. This was a technically difficult study with suboptimal views. The left ventricle is mildly dilated. There is borderline concentric left ventricular hypertrophy. Overall left ventricular systolic function is moderately impaired with, an EF between 35 - 40 %. The right ventricle is mild to moderately enlarged. Normal LA size by volume 22+/-6 ml/m2. The right atrium is normal in size. 3 ml of Lumason was utilized for enhancement of images. Interatrial and interventricular septum intact. There is mild aortic valve sclerosis. The mitral valve leaflets are mildly thickened. Mild mitral annular calcification present. Mild-t o-moderate mitral regurgitation is present. Mild tricuspid regurgitation present. There is mild pulmonary hypertension. The right ventricular systolic pressure, as measured by Doppler, is 42.48mmHg. The pulmonic valve was not well visualized. The aortic root size is normal. The inferior vena cava is dilated with no significant inspiratory collapse which is consistent estima severo right atrial pressure of >15 mmHg. There is no pericardial effusion. CONCLUSIONS -------- 1. The left ventricle is mildly dilated. 2. There is borderline concentric left ventricular hypertrophy. 3. Overall left ventricular systolic function is moderately impaired with, an EF between 35 - 40 %. 4. The right ventricle is mild to moderately enlarged. 5. Normal LA size by volume 22+/-6 ml/m2. 6. 3 ml of Lumason was utilized for enhancement of images. 7. There is mild aortic valve sclerosis. 8. The mitral valve leaflets are mildly thickened. 9. Mild mitral annular calcification present. 10. [id number] mitral regurgitation is present. 11. Mild tricuspid regurgitation present. 12. There is mild pulmonary hypertension. 13. The right ventricular systolic pressure, as measured by Doppler, is 42.48mmHg. 14. The inferior vena cava is dilated with no significant inspiratory collapse which is consistent es timated right atrial pressure of >15 mmHg. 15. There is no pericardial effusion. AGRICULTURE ENGINEER: Shabana Nova RDCS
[2020-07-02 16:56] LABS: Glucose,Whole Blood 121 mg/dL (75-99)
[2020-07-03 00:14] LABS: Glucose,Whole Blood 145 mg/dL (75-99)
[2020-07-03] MEDS: INSULIN ASPART (NovoLOG) 100 UNIT/ML VIAL SQ SCH ×4 (00:31→19:06)
[2020-07-03] MEDS: SODIUM CHLORIDE 0.9% 1,000 ML IV SCH (04:10)
[2020-07-03 04:33] LABS: Anisocytosis Moderate; Basophils # (A) 0.1 k/uL (0-0.2); Basophils % (A) 1 %; Eosinophils # (A) 0.3 k/uL (0-0.7); Eosinophils % (A) 3 %; HGB 9.1 gm/dL (11.4-16.0); Hypochromasia Marked; Lymphocytes # (A) 2.4 k/uL (1.0-4.8); Lymphocytes % (A) 22 %; MCHC 29.5 g/dL (31.0-37.0); MCV 74.7 fL (80.0-100.0); Mean Platelet Volume 6.9; Microcytosis Moderate; Monocytes # (A) 0.9 k/uL (0-1.0); Monocytes % (A) 8 %; Neutrophils # (A) 7.1 k/uL (1.3-7.7); Neutrophils % (A) 65 %; Platelet Count 227 k/uL (150-450); RBC 4.15 m/uL (3.80-5.40); RDW 20.2 % (11.5-15.5); WBC 10.9 k/uL (3.8-10.6)
[2020-07-03 04:44] LABS: Calcium 9.1 mg/dL (8.4-10.2)
[2020-07-03 06:34] LABS: Glucose,Whole Blood 152 mg/dL (75-99)
--- NOTE | 2020-07-03 07:41 | P.PN ---
Subjective Progress Note Date: 07/03/20 Principal diagnosis: Acute coronary syndrome This is a very pleasant 74-year-old female patient was coronary artery disease as well as hypertension and dyslipidemia who was admitted to the hospital with acute coronary syndrome as well as acute respiratory failure. She underwent a heart catheterization yesterday by Dr. Dr. Mccullough and that revealed patent stents in the LAD was critical disease involving the ostial and proximal left circumflex coronary artery. She underwent successful stenting of the left circumflex from right groin approach The patient was seen today July 032020. She was extubated yesterday. She is asymptomatic from a cardiovascular standpoint overview. She is hemodynamically stable. She is on dual antiplatelet therapy. She continues to be on Lasix IV and the creatinine seems to be stable. I would continue that for additional 24 hours. From the cardiac standpoint the patient can be transferred to the floor \ Objective - Vital Signs Vital signs: Vital Signs Temp 98.6 F 07/03/20 04:00 Pulse 86 07/03/20 04:00 Resp 14 07/03/20 04:00 BP 120/50 07/03/20 04:00 Pulse Ox 95 07/03/20 04:00 Intake & Output 07/02/20 07/03/20 07/03/20 18:59 06:59 18:59 Intake Total 650.906 150 Output Total 1660 1725 Balance -1009.094 -1575 Weight 109.5 kg Intake: IV 500 150 Sodium Chloride 0.9% 1, 500 150 000 ml @ 50 mls/hr IV . Q20H [facility] Rx#:[id number] Intake, IV Titration 50.906 Amount propofoL 500 mg In Empty 50.906 Bag 1 bag @ Titrate IV . Q0M [facility] Rx#:[id number] Oral 100 Output: Urine 1660 1725 Other: Voiding Method Indwelling Catheter Indwelling Catheter - Constitutional General appearance: Present: no acute distress - Respiratory Respiratory: bilateral: diminished - Cardiovascular Rhythm: regular Heart sounds: normal: S1, S2 - Labs CBC & Chem 7: 07/03/20 03:45 07/03/20 03:45 Labs: Abnormal Lab Results - Last 24 Hours (Table) 07/02/20 07/02/20 07/03/20 Range/Units 11:27 16:54 00:12 WBC (3.8-10.6) k/uL Hgb (11.4-16.0) gm/dL Hct (34.0-46.0) % MCV (80.0-100.0) fL MCH (25.0-35.0) pg MCHC (31.0-37.0) g/dL RDW (11.5-15.5) % Sodium (137-145) mmol/L Chloride (98-107) mmol/L BUN (7-17) mg/dL Glucose (74-99) mg/dL POC Glucose (mg/dL) 150 H 121 H 145 H (75-99) mg/dL 07/03/20 07/03/20 07/03/20 Range/Units 03:45 03:45 06:33 WBC 10.9 H (3.8-10.6) k/uL Hgb 9.1 L (11.4-16.0) gm/dL Hct 31.0 L (34.0-46.0) % MCV 74.7 L (80.0-100.0) fL MCH 22.0 L (25.0-35.0) pg MCHC 29.5 L (31.0-37.0) g/dL RDW 20.2 H (11.5-15.5) % Sodium 131 L (137-145) mmol/L Chloride 97 L (98-107) mmol/L BUN 24 H (7-17) mg/dL Glucose 126 H (74-99) mg/dL POC Glucose (mg/dL) 152 H (75-99) mg/dL Assessment and Plan Assessment: Assessment #1 acute coronary syndrome #2 status post PCI of the LCx #3 coronary artery disease #4 renal failure #5 multiple comorbid conditions Plan #1 the patient underwent successful stenting of the LCx yesterday #2 continue the current medical regimen including Lasix for additional 24 hours #3 continue monitor the kidney function and electrolytes #4 continue dual antiplatelet therapy #5 the patient can be transferred to the floor
[2020-07-03] MEDS: CLOPIDOGREL 75 MG TAB PO SCH (08:15)
[2020-07-03] MEDS: ISOSORBIDE MONONITRATE ER 30 MG TAB.ER.24H PO SCH (08:15)
[2020-07-03] MEDS: rOPINIRole HCL 4 MG TABLET PO SCH ×3 (08:15→22:29)
--- NOTE | 2020-07-03 08:15 | XR ---
EXAMINATION TYPE: XR chest 1V portable DATE OF EXAM: 07/03/2020 HISTORY: Shortness of breath. COMPARISON: 07/02/2020 TECHNIQUE: Single view of the chest is submitted. FINDINGS: Interval removal of NG tube and endotracheal tube. Persistent small pleural effusions. Improving pulmonary venous congestion and basilar atelectasis. The heart is stable. Hilar and mediastinal structures are within normal limits. Degenerative changes are seen of the dorsal spine. IMPRESSION: 1. Persistent small pleural effusions. Improving pulmonary venous congestion and basilar atelectasis .
[2020-07-03] MEDS: METOPROLOL TARTRATE 50 MG TAB PO SCH ×2 (08:16→22:29)
[2020-07-03] MEDS: FUROSEMIDE 10 MG/ML 4 ML VIAL IV SCH ×2 (08:16→22:29)
[2020-07-03] MEDS: PANTOPRAZOLE 40 MG/10 ML VIAL IVP SCH (08:16)
[2020-07-03] MEDS: ASPIRIN 81 MG PO SCH (08:16)
--- NOTE | 2020-07-03 10:44 | P.PN ---
Subjective Progress Note Date: 07/03/20 Principal diagnosis: Unstable angina with acute coronary artery disease status post stent of left circumflex Acute hypoxic respiratory failure Retrosternal chest pain with ongoing shortness of breath and unstable angina with elevated tropes Unstable angina Chronic kidney disease Coronary artery disease Congestive heart failure acute on chronic systolic heart failure History of prior DVT COPD Sleep disorder breathing and sleep apnea refused CPAP or BiPAP machine Chronic hypoxic respiratory failure on home oxygen at bedtime 07/03/2020, patient seen eval reexamined during the rounds labs reviewed medications reviewed she is remains stable hemodynamically, has been diuresed, labs reviewed creatinine remained stable oxygen saturation is 95% on 2 L oxygen patient is downgraded to selective care him a hemoglobin remained stable at 9.1 with white cell count 10,900, BUN/creatinine improved to 24/.9 07/02/2020, patient seen eval reexamined in the ICU successfully weaned and extubated patient left on ventilator for ischemic heart disease status post cardiac cath and angiogram where radical stenosis was seen in left circumflex where stent was placed tolerated well due to hypoxia and desaturation patient was kept on respirator overnight this morning placed on CPAP 5 pressure support of 5 arterial blood gas were seen weaning parameters reviewed successfully ext ubated on supplemental oxygen, hemodynamic status remains stable, white cell count is slightly up 12,900 hemoglobin remained stable showing a downward trend with microcytosis Petrin, hyponatremia slightly improved renal functions also improved, This is a 74-year-old female, seen evaluated examined on 6 floor, patient admitted into the hospital through the emergency department with retrosternal c hest pain intermittent for the last 4 days has been progressive, some association with food is present, patient does take nitro as needed, she took 4 nitro without any improvement in pain decided to come into the hospital, patient also took aspirin, patient has a previous cardiac cath angiogram performed in March which was unremarkable, cardiology has been consulted, patient currently on heparin and nitro drip being transferred to ICU likely had a stat cardiac cath and angiogram, chest x-ray consistent with CHF-like changes, EKG incomplete left bundle branch block along with inferior ischemic changes Objective - Vital Signs Vital signs: Vital Signs Temp 97.8 F 07/03/20 08:00 Pulse 85 07/03/20 08:00 Resp 18 07/03/20 08:00 BP 106/84 07/03/20 08:00 Pulse Ox 98 07/03/20 08:24 Intake & Output 07/02/20 07/03/20 07/03/20 18:59 06:59 18:59 Intake Total 650.906 150 Output Total 1660 1725 Balance -1009.094 -1575 Weight 109.5 kg Intake: IV 500 150 Sodium Chloride 0.9% 1, 500 150 000 ml @ 50 mls/hr IV . Q20H [facility] Rx#:[id number] Intake, IV Titration 50.906 Amount propofoL 500 mg In Empty 50.906 Bag 1 bag @ Titrate IV . Q0M [facility]RE[facility] Rx#:[id number] Oral 100 Output: Urine 1660 1725 Other: Voiding Method Indwelling Catheter Indwelling Catheter Indwelling Catheter - Exam - Constitutional General appearance: average body habitus, cooperative, disheveled - EENT Eyes: EOMI, PERRLA ENT: normal oropharynx Ears: bilateral: normal - Neck Neck: normal ROM Carotids: bilateral: upstroke normal Thyroid: bilateral: normal size - Respiratory Respiratory: bilateral: CTA, diminished - Cardiovascular Rhythm: regular Heart sounds: normal: S1, S2 - Gastrointestinal General gastrointestinal: distended, normal bowel sounds, soft - Neurologic Neurologic: CNII-XII intact - Musculoskeletal Musculoskeletal: gait normal, generalized weakness, strength equal bilaterally - Psychiatric Psychiatric: A&O x's 3, appropriate affect, intact judgment & insight - Labs CBC & Chem 7: 07/03/20 03:45 07/03/20 03:45 Labs: Abnormal Lab Results - Last 24 Hours (Table) 07/02/20 07/02/20 07/03/20 Range/Units 11:27 16:54 00:12 WBC (3.8-10.6) k/uL Hgb (11.4-16.0) gm/dL Hct (34.0-46.0) % MCV (80.0-100.0) fL MCH (25.0-35.0) pg MCHC (31.0-37.0) g/dL RDW (11.5-15.5) % Sodium (137-145) mmol/L Chloride (98-107) mmol/L BUN (7-17) mg/dL Glucose (74-99) mg/dL POC Glucose (mg/dL) 150 H 121 H 145 H (75-99) mg/dL 07/03/20 07/03/20 07/03/20 Range/Units 03:45 03:45 06:33 WBC 10.9 H (3.8-10.6) k/uL Hgb 9.1 L (11.4-16.0) gm/dL Hct 31.0 L (34.0-46.0) % MCV 74.7 L (80.0-100.0) fL MCH 22.0 L (25.0-35.0) pg MCHC 29.5 L (31.0-37.0) g/dL RDW 20.2 H (11.5-15.5) % Sodium 131 L (137-145) mmol/L Chloride 97 L (98-107) mmol/L BUN 24 H (7-17) mg/dL Glucose 126 H (74-99) mg/dL POC Glucose (mg/dL) 152 H (75-99) mg/dL Assessment and Plan Assessment: Unstable angina with acute coronary artery disease status post stent of left circumflex Acute hypoxic respiratory failure Retrosternal chest pain with ongoing shortness of breath and unstable angina with elevated tropes Unstable angina Chronic kidney disease Coronary artery disease Congestive heart failure acute on chronic systolic heart failure History of prior DVT COPD Sleep disorder breathing and sleep apnea refused CPAP or BiPAP machine Chronic hypoxic respiratory failure on home oxygen at bedtime Plan: Successfully weaned and extubated Continue supplemental oxygen Start clear liquid diet as tolerated advanced to 1800 ADA diet Monitor renal functions closely Continue maximal medical therapy Continue dual agent antiplatelet therapy Findings of cardiac catheter angiogram reviewed Time with Patient: Greater than 30
[2020-07-04 00:03] LABS: Glucose,Whole Blood 155 mg/dL (75-99)
[2020-07-04] MEDS: INSULIN ASPART (NovoLOG) 100 UNIT/ML VIAL SQ SCH ×4 (00:23→17:04)
[2020-07-04 06:08] LABS: Glucose,Whole Blood 192 mg/dL (75-99)
[2020-07-04] MEDS: PANTOPRAZOLE 40 MG TABLET PO SCH (06:15)
[2020-07-04] MEDS: SODIUM CHLORIDE 0.9% 1,000 ML IV SCH (07:26)
[2020-07-04] MEDS: ISOSORBIDE MONONITRATE ER 30 MG TAB.ER.24H PO SCH (08:30)
[2020-07-04] MEDS: rOPINIRole HCL 4 MG TABLET PO SCH ×3 (08:30→20:41)
[2020-07-04] MEDS: METOPROLOL TARTRATE 50 MG TAB PO SCH ×2 (08:30→20:41)
[2020-07-04] MEDS: ASPIRIN 81 MG PO SCH (08:30)
[2020-07-04] MEDS: CLOPIDOGREL 75 MG TAB PO SCH (08:31)
[2020-07-04] MEDS: FUROSEMIDE 10 MG/ML 4 ML VIAL IV SCH (08:31)
--- NOTE | 2020-07-04 09:26 | P.PN ---
Subjective Progress Note Date: 07/04/20 Principal diagnosis: Unstable angina with acute coronary artery disease status post stent of left circumflex Acute hypoxic respiratory failure Retrosternal chest pain with ongoing shortness of breath and unstable angina with elevated tropes Unstable angina Chronic kidney disease Coronary artery disease Congestive heart failure acute on chronic systolic heart failure History of prior DVT COPD Sleep disorder breathing and sleep apnea refused CPAP or BiPAP machine Chronic hypoxic respiratory failure on home oxygen at bedtime 07/04/2020, patient is in a stepdown, denies any chest pain or shortness of breath, breathing comfortably, remains on supplemental oxygen, oxygen saturation is 96% on 2 L, hemodynamic status stable, last chest x-ray performed on the 217 continue show small pleural effusion improving atelectasis interstitial edema 07/03/2020, patient seen eval reexamined during the rounds labs reviewed medications reviewed she is remains stable hemodynamically, has been diuresed, labs reviewed creatinine remained stable oxygen saturation is 95% on 2 L oxygen patient is downgraded to selective care him a hemoglobin remained stable at 9.1 with white cell count 10,900, BUN/creatinine improved to 24/.9 07/02/2020, patient seen eval reexamined in the ICU successfully weaned and extubated patient left on ventilator for ischemic heart disease status post cardiac cath and angiogram where radical stenosis was seen in left circumflex where stent was placed tolerated well due to hypoxia and desaturation patient was kept on respirator overnight this morning placed on CPAP 5 pressure support of 5 arterial blood gas were seen weaning parameters reviewed successfully extubated on supplemental oxygen, hemodynamic status remains stable, white cell count is slightly up 12,900 hemoglobin remained stable showing a downward trend with microcytosis Petrin, hyponatremia slightly improved renal functions also improved, This is a 74-year-old female, seen evaluated examined on 6 floor, patient admitted into the hospital through the emergency department with retrosternal chest pain intermittent for the last 4 days has been progressive, some association with food is present, patient does take nitro as needed, she took 4 nitro without any improvement in pain decided to come into the hospital, patient also took aspirin, patient has a previous cardiac cath angiogram performed in March which was unremarkable, cardiology has been consulted, patient cur rently on heparin and nitro drip being transferred to ICU likely had a stat cardiac cath and angiogram, chest x-ray consistent with CHF-like changes, EKG incomplete left bundle branch block along with inferior ischemic changes Objective - Vital Signs Vital signs: Vital Signs Temp 97.9 F 07/04/20 08:00 Pulse 83 07/04/20 08:00 Resp 18 07/04/20 08:00 BP 156/69 07/04/20 08:00 Pulse Ox 96 07/04/20 08:00 Intake & Output 07/03/20 07/04/20 07/04/20 18:59 06:59 18:59 Intake Total 1680 100 Output Total 925 300 Balance 755 -200 Weight 107.9 kg Intake: IV 600 100 Sodium Chloride 0.9% 1, 600 100 000 ml @ 50 mls/hr IV . Q20H [facility] Rx#:[id number] Oral 1080 Output: Urine 925 300 Other: Voiding Method Indwelling Catheter Indwelling Catheter # Voids 1 - Exam - Constitutional General appearance: average body habitus, cooperative, disheveled - EENT Eyes: EOMI, PERRLA ENT: normal oropharynx Ears: bilateral: normal - Neck Neck: normal ROM Carotids: bilateral: upstroke normal Thyroid: bilateral: normal size - Respiratory Respiratory: bilateral: CTA, diminished - Cardiovascular Rhythm: regular Heart sounds: normal: S1, S2 - Gastrointestinal General gastrointestinal: distended, normal bowel sounds, soft - Neurologic Neurologic: CNII-XII intact - Musculoskeletal Musculoskeletal: gait normal, generalized weakness, strength equal bilaterally - Psychiatric Psychiatric: A&O x's 3, appropriate affect, intact judgment & insight - Labs CBC & Chem 7: 07/03/20 03:45 07/03/20 03:45 Labs: Abnormal Lab Results - Last 24 Hours (Table) 07/04/20 07/04/20 Range/Units 00:02 06:06 POC Glucose (mg/dL) 155 H 192 H (75-99) mg/dL Assessment and Plan Assessment: Unstable angina with acute coronary artery disease status post stent of left circumflex Acute hypoxic respiratory failure Retrosternal chest pain with ongoing shortness of breath and unstable angina with elevated tropes Unstable angina Chronic kidney disease Coronary artery disease Congestive heart failure acute on chronic systolic heart failure History of prior DVT COPD Sleep disorder breathing and sleep apnea refused CPAP or BiPAP machine Chronic hypoxic respiratory failure on home oxygen at bedtime Plan: Successfully weaned and extubated Continue supplemental oxygen Start clear liquid diet as tolerated advanced to 1800 ADA diet Monitor renal functions closely Continue maximal medical therapy Continue dual agent antiplatelet therapy Findings of cardiac catheter angiogram reviewed Time with Patient: Greater than 30
[2020-07-04 12:17] LABS: Glucose,Whole Blood 163 mg/dL (75-99)
--- NOTE | 2020-07-04 12:56 | P.PN ---
Subjective Progress Note Date: 07/04/20 HISTORY OF PRESENT ILLNESS: patient is status post cardiac cath with stent placement to the left circumflex. patient examined this morning at the bedside. She denies chest pain or pressure. She denies shortness of breath. She remains on IV Lasix. blood pressure 140/79. Heart rate in the 70s. PHYSICAL EXAM: VITAL SIGNS: Reviewed. GENERAL: Well-developed in no acute distress. NECK: Supple. No JVD or thyromegaly LUNGS: Respirations even and unlabored. Lungs diminished bilaterally. HEART: Regular rate and rhythm. S1 and S2 heard. EXTREMITIES: Normal range of motion. No clubbing or cyanosis. Peripheral pulses intact. Right groin soft with no hematoma noted. Pulse present. ASSESSMENT: Unstable angina, status post cardiac cath with stent placement to the left circumflex Acute exacerbation of chronic systolic and diastolic heart failure Coronary artery disease Hypertension Hyperlipidemia Ischemic cardiomyopathy COPD Diabetes mellitus PLAN: Continue current cardiac medications Discontinue IV lasix. Transition to oral lasix 40mg BID Patient is stable for DC home today from a cardiac standpoint. Will defer to internal medicine. Nurse practitioner note has been reviewed by physician. Signing provider agrees with the documented findings, assessment, and plan of care. Objective - Vital Signs Vital signs: Vital Signs Temp 97.9 F 07/04/20 08:00 Pulse 73 07/04/20 12:00 Resp 18 07/04/20 08:00 BP 157/71 07/04/20 12:00 Pulse Ox 97 07/04/20 12:00 Intake & Output 07/03/20 07/04/20 07/04/20 18:59 06:59 18:59 Intake Total 1680 100 Output Total 925 300 Balance 755 -200 Weight 107.9 kg Intake: IV 600 100 Sodium Chloride 0.9% 1, 600 100 000 ml @ 50 mls/hr IV . Q20H [facility] Rx#:[id number] Oral 1080 Output: Urine 925 300 Other: Voiding Method Indwelling Catheter Indwelling Catheter # Voids 1 - Labs CBC & Chem 7: 07/03/20 03:45 07/03/20 03:45 Labs: Abnormal Lab Results - Last 24 Hours (Table) 07/04/20 07/04/20 07/04/20 Range/Units 00:02 06:06 11:58 POC Glucose (mg/dL) 155 H 192 H 163 H (75-99) mg/dL
[2020-07-04] MEDS: lisinopriL 5 MG TAB PO SCH (15:26)
[2020-07-04] MEDS: FUROSEMIDE 40 MG TAB PO SCH (15:27)
[2020-07-04 16:36] LABS: Glucose,Whole Blood 171 mg/dL (75-99)
[2020-07-04] MEDS: hydrALAZINE HCL 25 MG TAB PO SCH (20:41)
--- NOTE | 2020-07-04 22:01 | PN ---
PROGRESS NOTE This is a 74-year-old white female who is status post cardiac catheterization with stent placement to the left circumflex. Denies chest pain or pressure. Denies shortness of breath. Remains on IV Lasix. Blood pressure is 140s over 79, heart rate in the 70s. Vital signs are stable. She is in no acute distress. CARDIOVASCULAR: S1, S2. LUNGS: Clear. EXTREMITIES: No cyanosis, clubbing, edema. ASSESSMENT: 1. Unstable angina, status post cardiac catheterization with stent placement to the left circumflex. 2. Systolic and diastolic heart failure, acute on chronic. 3. Coronary artery disease. 4. Hypertension. 5. Dyslipidemia. 6. Nicotine addiction. 7. Chronic obstructive pulmonary disease. 8. Ischemic cardiomyopathy. 9. Diabetes mellitus. Continue current medications. Will transition off IV Lasix and possibly discharge home in the next day or two, depending on patient's improvement status post stent. Wait for Pulmonology to clear her also. Possibly can send her home tomorrow. MMODL / IJN: [id number] /
[2020-07-05 00:02] LABS: Glucose,Whole Blood 188 mg/dL (75-99)
[2020-07-05] MEDS: INSULIN ASPART (NovoLOG) 100 UNIT/ML VIAL SQ SCH ×5 (00:25→20:06)
[2020-07-05 06:01] LABS: Glucose,Whole Blood 198 mg/dL (75-99)
[2020-07-05] MEDS: PANTOPRAZOLE 40 MG TABLET PO SCH (07:14)
[2020-07-05 08:10] LABS: African American GFR (CKD) >90 (>60 ml/min/1.73 sqM); Anion Gap 13 mmol/L; Blood Urea Nitrogen 14 mg/dL (7-17); Carbon Dioxide 25 mmol/L (22-30); Chloride 91 mmol/L (98-107); Glucose 170 mg/dL (74-99); Non-African American GFR(CKD) 89 (>60 ml/min/1.73 sqM); Potassium 3.8 mmol/L (3.5-5.1); Sodium 129 mmol/L (137-145)
[2020-07-05] MEDS: lisinopriL 5 MG TAB PO SCH (08:35)
[2020-07-05] MEDS: CLOPIDOGREL 75 MG TAB PO SCH (08:35)
[2020-07-05] MEDS: hydrALAZINE HCL 25 MG TAB PO SCH ×3 (08:35→20:06)
[2020-07-05] MEDS: ASPIRIN 81 MG PO SCH (08:35)
[2020-07-05] MEDS: rOPINIRole HCL 4 MG TABLET PO SCH ×3 (08:36→20:06)
[2020-07-05] MEDS: FUROSEMIDE 40 MG TAB PO SCH ×2 (08:36→17:14)
[2020-07-05] MEDS: METOPROLOL TARTRATE 50 MG TAB PO SCH ×2 (08:36→20:06)
[2020-07-05] MEDS: ISOSORBIDE MONONITRATE ER 30 MG TAB.ER.24H PO SCH (08:36)
--- NOTE | 2020-07-05 08:41 | CONS ---
CONSULTATION DATE OF SERVICE: 07/04/2020 REASON FOR CONSULTATION: Bilateral diabetic foot ulcer and local care. HISTORY OF PRESENT ILLNESS: The patient is a 74-year-old female well known to my service in this patient who did have bilateral diabetic foot plantar ulcer. The patient's left lower extremity is currently being treated with a pure dressing with overlying total contact cast was applied last Wednesday and was supposed to be removed yesterday. However, the patient ended up coming to the ER at [facility] on Wednesday for chest pain in this patient who has been diagnosed with SD. The patient was taken to the OR and is status post PTCA and stenting x2. The patient has been admitted to the cardiac floor. I was asked to see the patient today regarding her local wound care and need for the cast removal. The patient currently denies having any fever or any chills. The patient denies having any chest pain or shortness of breath or cough. Denies pain to the bilateral foot wound area. No nausea, no vomiting. No abdominal pain or any diarrhea. On presentation to hospital, the patient did have mild elevated white count 11.6 subsequently normalized. The patient did have a normal creatinine and no fever during this admission. REVIEW OF SYSTEMS: Positive points have been mentioned in HPI. The rest of the review of systems is negative. PAST MEDICAL HISTORY: Asthma, coronary artery disease, heart failure, diabetes mellitus, DVT, gastroesophageal reflux disease, hyperlipidemia, hypertension, osteoarthritis, and diabetic foot infection. PAST SURGICAL HISTORY: Appendectomy, back surgery, cholecystectomy, heart catheterization with stent and bilateral feet wound debridement. SOCIAL HISTORY: Remote history of smoking. No drinking or drug use. FAMILY HISTORY: No pertinent findings noticed. ALLERGIES: Allergies to AUGMENTIN, FLAGYL. MEDICATIONS: Medications include the patient is currently on Xanax, aspirin, Plavix, Lasix, hydralazine, NovoLog, Imdur, Zestril, Lopressor, morphine sulfate, Zofran, Requip. PHYSICAL EXAMINATION: Blood pressure is 159/68 with a pulse of 77, temperature 97.7. She is 91% on room air. General description is an elderly female lying in bed in no distress. No tachypnea or accessory muscle of respiration use. HEENT: Examination shows no pallor or scleral icterus. Oral mucous membrane is dry. No pharyngeal erythema or thrush. NECK: Trachea central. No thyromegaly. LUNGS: Unlabored breathing, clear to auscultation anteriorly. No wheeze or crackle. HEART: S1, S2. Regular rate and rhythm. ABDOMEN: Soft, no tenderness. No guarding or rigidity. EXTREMITIES: No edema of feet. Examination of the right foot plantar wound with no slough tissue. No surrounding swelling or redness or drainage. Left foot lower extremity covered with total contact cast and we did not have the instrument to remove the cast this evening. NEUROLOGICALLY: The patient is awake, alert, oriented x3. Mood and affect normal. LABS: BUN of 24, creatinine 0.90. Hemoglobin is 9.1, white count 10.9. DIAGNOSTIC IMPRESSION: 1. Patient admitted with right diabetic foot wound with no evidence of any secondary cellulitis, recommend local wound care. 2. Left diabetic foot wound, currently covered with a total contact cast and cannot be examined, though no evidence of any suspicious for secondary cellulitis. PLAN: 1. Recommend removing of the left leg total contact cast. Afterwards which she will be treated with Aquacel Silver dressing and the patient will [facility] for placement of another cast. 2. Patient with right foot plantar ulcer local care with Aquacel Silver dressing. 3. No need for any systemic antibiotic therapy. Thank you for this consultation. Will follow this patient along with you. MMODL / IJN: [id number] /
[2020-07-05 12:11] LABS: Glucose,Whole Blood 202 mg/dL (75-99)
--- NOTE | 2020-07-05 12:28 | P.PN ---
Subjective Progress Note Date: 07/05/20 HISTORY OF PRESENT ILLNESS: Patient is status post cardiac cath with stent placement to the left circumflex. Patient examined this morning at the bedside. She denies chest pain or pressure. She denies shortness of breath. She has been transitioned to oral Lasix. She continues to complain of difficulty ambulating. Patient's blood pressure remains elevated this morning. She was resumed on her hydralazine and lisinopril yesterday. PHYSICAL EXAM: VITAL SIGNS: Reviewed. GENERAL: Well-developed in no acute distress. NECK: Supple. No JVD or thyromegaly LUNGS: Respirations even and unlabored. Lungs diminished bilaterally. HEART: Regular rate and rhythm. S1 and S2 heard. EXTREMITIES: Normal range of motion. No clubbing or cyanosis. Peripheral pulses intact. Right groin soft with no hematoma noted. Pulse present. ASSESSMENT: Unstable angina, status post cardiac cath with stent placement to the left circumflex Acute exacerbation of chronic systolic and diastolic heart failure Coronary artery disease Hypertension Hyperlipidemia Ischemic cardiomyopathy COPD Diabetes mellitus PLAN: Continue current cardiac medications Increase hydralazine to TID dosing Increase lisinopril to 10 mg daily Monitor blood pressure Patient is stable for DC home today from a cardiac standpoint. Will defer to internal medicine. Nurse practitioner note has been reviewed by physician. Signing provider agrees with the documented findings, assessment, and plan of care. Objective - Vital Signs Vital signs: Vital Signs Temp 97.8 F 07/05/20 08:00 Pulse 80 07/05/20 08:00 Resp 18 07/05/20 08:00 BP 167/71 07/05/20 08:00 Pulse Ox 93 L 07/05/20 08:00 Intake & Output 07/04/20 07/05/20 07/05/20 18:59 06:59 18:59 Intake Total 720 660 240 Balance 720 660 240 Weight 108.3 kg Intake: Oral 720 660 240 Other: Voiding Method Indwelling Catheter # Voids 1 1 # Bowel Movements 1 - Labs CBC & Chem 7: 07/03/20 03:45 07/05/20 07:27 Labs: Abnormal Lab Results - Last 24 Hours (Table) 07/04/20 07/05/20 07/05/20 Range/Units 16:34 00:00 05:58 Sodium (137-145) mmol/L Chloride (98-107) mmol/L Glucose (74-99) mg/dL POC Glucose (mg/dL) 171 H 188 H 198 H (75-99) mg/dL 07/05/20 07/05/20 Range/Units 07:27 12:09 Sodium 129 L (137-145) mmol/L Chloride 91 L (98-107) mmol/L Glucose 170 H (74-99) mg/dL POC Glucose (mg/dL) 202 H (75-99) mg/dL
[2020-07-05] MEDS: ONDANSETRON 4 MG/2 ML VIAL IVP PRN ×2 (12:55→18:30)
[2020-07-05] MEDS ORDERED: lisinopriL 5 MG TAB PO STA (13:31)
--- NOTE | 2020-07-05 13:39 | PN ---
PROGRESS NOTE DATE OF SERVICE: 07/05/2020 REASON FOR FOLLOWUP: Bilateral diabetic foot ulcer. INTERVAL HISTORY: The patient is currently afebrile. The patient is feeling better. Breathing comfortably. Did have an episode of nausea and vomiting. No abdominal pain. No pain to the lower extremity. PHYSICAL EXAMINATION: Blood pressure 162/72 with a pulse of 67, temperature 97.8. She is 97% on room air. General description is an elderly female up in the chair in no distress. RESPIRATORY SYSTEM: Unlabored breathing, decreased intensity of breath sounds. No wheeze. HEART: S1, S2. Regular rate and rhythm. Lower extremity currently wrapped up. No obvious drainage on the dressing. LABS: BUN of 14, creatinine 0.65. DIAGNOSTIC IMPRESSION AND PLAN: Patient with bilateral lower extremity diabetic foot ulcer with no evidence of any secondary cellulitis. Local care to continue with Aquacel Silver dressing, keep the area off the pressure and a close outpatient followup. MMODL / IJN: [id number] /
--- NOTE | 2020-07-05 17:02 | P.PN ---
Subjective Progress Note Date: 07/05/20 Principal diagnosis: Unstable angina with acute coronary artery disease status post stent of left circumflex Acute hypoxic respiratory failure Retrosternal chest pain with ongoing shortness of breath and unstable angina with elevated tropes Unstable angina Chronic kidney disease Coronary artery disease Congestive heart failure acute on chronic systolic heart failure History of prior DVT COPD Sleep disorder breathing and sleep apnea refused CPAP or BiPAP machine Chronic hypoxic respiratory failure on home oxygen at bedtime 07/05/2020, patient remains on 2 L oxygen saturations remained stable however patient feels weak quality of sleep has been poor he would like to stay in the hospital, denies any cough or sputum production 07/04/2020, patient is in a stepdown, denies any chest pain or shortness of breath, breathing comfortably, remains on supplemental oxygen, oxygen saturation is 96% on 2 L, hemodynamic status stable, last chest x-ray performed on the 217 continue show small pleural effusion improving atelectasis interstitial edema 07/03/2020, patient seen eval reexamined during the rounds labs reviewed medications reviewed she is remains stable hemodynamically, has been diuresed, labs reviewed creatinine remained stable oxygen saturation is 95% on 2 L oxygen patient is downgraded to selective care him a hemoglobin remained stable at 9.1 with white cell count 10,900, BUN/creatinine improved to 24/.9 07/02/2020, patient seen eval reexamined in the ICU successfully weaned and extubated patient left on ventilator for ischemic heart disease status post cardiac cath and angiogram where radical stenosis was seen in left circumflex where stent was placed tolerated well due to hypoxia and desaturation patient was kept on respirator overnight this morning placed on CPAP 5 pressure support of 5 arterial blood gas were seen weaning parameters reviewed successfully extubated on supplemental oxygen, hemodynamic status remains stable, white cell count is slightly up 12,900 hemoglobin remained stable showing a downward trend with microcytosis Petrin, hyponatremia slightly improved renal functions also improved, This is a 74-year-old female, seen evaluated examined on 6 floor, patient admitted into the hospital through the emergency department with retrosternal chest pain intermittent for the last 4 days has been progressive, some associat ion with food is present, patient does take nitro as needed, she took 4 nitro without any improvement in pain decided to come into the hospital, patient also took aspirin, patient has a previous cardiac cath angiogram performed in March which was unremarkable, cardiology has been consulted, patient currently on heparin and nitro drip being transferred to ICU likely had a stat cardiac cath and angiogram, chest x-ray consistent with CHF-like changes, EKG incomplete left bundle branch block along with inferior ischemic changes Objective - Vital Signs Vital signs: Vital Signs Temp 97.8 F 07/05/20 16:00 Pulse 68 07/05/20 16:00 Resp 16 07/05/20 16:00 BP 133/64 07/05/20 16:00 Pulse Ox 98 07/05/20 16:00 Intake & Output 07/04/20 07/05/20 07/05/20 18:59 06:59 18:59 Intake Total 720 660 240 Output Total 5 Balance 720 660 235 Weight 108.3 kg 108.3 kg Intake: Oral 720 660 240 Output: Emesis 5 Other: Voiding Method Indwelling Catheter # Voids 1 1 # Bowel Movements 1 - Exam - Constitutional General appearance: average body habitus, cooperative, disheveled - EENT Eyes: EOMI, PERRLA ENT: normal oropharynx Ears: bilateral: normal - Neck Neck: normal ROM Carotids: bilateral: upstroke normal Thyroid: bilateral: normal size - Respiratory Respiratory: bilateral: CTA, diminished - Cardiovascular Rhythm: regular Heart sounds: normal: S1, S2 - Gastrointestinal General gastrointestinal: distended, normal bowel sounds, soft - Neurologic Neurologic: CNII-XII intact - Musculoskeletal Musculoskeletal: gait normal, generalized weakness, strength equal bilaterally - Psychiatric Psychiatric: A&O x's 3, appropriate affect, intact judgment & insight - Labs CBC & Chem 7: 07/03/20 03:45 07/05/20 07:27 Labs: Abnormal Lab Results - Last 24 Hours (Table) 07/05/20 07/05/20 07/05/20 Range/Units 00:00 05:58 07:27 Sodium 129 L (137-145) mmol/L Chloride 91 L (98-107) mmol/L Glucose 170 H (74-99) mg/dL POC Glucose (mg/dL) 188 H 198 H (75-99) mg/dL 07/05/20 Range/Units 12:09 Sodium (137-145) mmol/L Chloride (98-107) mmol/L Glucose (74-99) mg/dL POC Glucose (mg/dL) 202 H (75-99) mg/dL Assessment and Plan Assessment: Unstable angina with acute coronary artery disease status post stent of left circumflex Acute hypoxic respiratory failure Retrosternal chest pain with ongoing shortness of breath and unstable angina with elevated tropes Unstable angina Chronic kidney disease Coronary artery disease Congestive heart failure acute on chronic systolic heart failure History of prior DVT COPD Sleep disorder breathing and sleep apnea refused CPAP or BiPAP machine Chronic hypoxic respiratory failure on home oxygen at bedtime Plan: Successfully weaned and extubated Continue supplemental oxygen Start clear liquid diet as tolerated advanced to 1800 ADA diet Monitor renal functions closely Continue maximal medical therapy Continue dual agent antiplatelet therapy Findings of cardiac catheter angiogram reviewed Time with Patient: Greater than 30
[2020-07-05 17:05] LABS: Glucose,Whole Blood 212 mg/dL (75-99)
[2020-07-05 20:02] LABS: Glucose,Whole Blood 214 mg/dL (75-99)
[2020-07-05] MEDS: METOCLOPRAMIDE 10 MG TAB PO SCH (20:31)
[2020-07-05] MEDS ORDERED: SUCRALFATE 1 GM TAB PO STA (22:12)
--- NOTE | 2020-07-05 22:25 | PN ---
PROGRESS NOTE This patient is a 74-year-old white female with unstable angina, coronary artery disease, status post PTCA right coronary artery. She remains on 2 L oxygen. She wanted to stay in to keep PT/OT working with her before she gets discharged. CARDIOVASCULAR: S1, S2. LUNGS: Clear. GI: Soft. HEMATOLOGY: Negative Homans. PSYCH: Fair mood and affect. ASSESSMENT: 1. Unstable angina. 2. Acute coronary artery disease, status post stenting of the left circumflex. 3. Acute hypoxemic respiratory failure. 4. Chronic kidney disease. 5. Coronary artery disease. 6. Congestive heart failure. 7. Chronic obstructive pulmonary disease. . Continue with supplemental oxygen. Wean and monitor her renal functions. Possibly discharge home when Physical Therapy gets her ambulating a little bit more. MMODL / IJN: [id number] /
[2020-07-05] MEDS: DICYCLOMINE 10 MG CAP PO PRN (22:26)
[2020-07-05] MEDS ORDERED: hydrALAZINE HCL 25 MG TAB PO STA (23:31)
[2020-07-06] MEDS: HYDROcodone/APAP 7.5-325MG 1 EACH TAB PO PRN ×4 (00:09→20:01)
[2020-07-06] MEDS: NITROGLYCERIN SL TABS 0.4 MG TAB SUBLINGUAL PRN ×2 (04:35→04:40)
[2020-07-06 06:26] LABS: Glucose,Whole Blood 184 mg/dL (75-99)
[2020-07-06] MEDS: ONDANSETRON 4 MG/2 ML VIAL IVP PRN ×4 (06:35→20:01)
[2020-07-06] MEDS: PANTOPRAZOLE 40 MG TABLET PO SCH (06:35)
[2020-07-06] MEDS: DICYCLOMINE 10 MG CAP PO PRN ×2 (06:36→20:01)
[2020-07-06] MEDS: INSULIN ASPART (NovoLOG) 100 UNIT/ML VIAL SQ SCH ×4 (06:36→20:01)
[2020-07-06] MEDS: SUCRALFATE 1 GM TAB PO SCH ×3 (06:36→17:13)
[2020-07-06 07:24] LABS: Anisocytosis Slight; Basophils % (A) 0 %; Eosinophils # (A) 0.2 k/uL (0-0.7); Eosinophils % (A) 2 %; HGB 10.5 gm/dL (11.4-16.0); Hypochromasia Moderate; Lymphocytes # (A) 1.5 k/uL (1.0-4.8); Lymphocytes % (A) 14 %; MCH 22.7 pg (25.0-35.0); MCHC 31.7 g/dL (31.0-37.0); MCV 71.4 fL (80.0-100.0); Mean Platelet Volume 6.7; Microcytosis Marked; Monocytes # (A) 0.6 k/uL (0-1.0); Monocytes % (A) 5 %; Neutrophils # (A) 8.4 k/uL (1.3-7.7); Neutrophils % (A) 78 %; Platelet Count 295 k/uL (150-450); RBC 4.61 m/uL (3.80-5.40); RDW 19.6 % (11.5-15.5); WBC 10.7 k/uL (3.8-10.6)
[2020-07-06 07:53] LABS: Albumin 3.8 g/dL (3.5-5.0); Calcium 9.3 mg/dL (8.4-10.2); Potassium 3.6 mmol/L (3.5-5.1); Total Bilirubin 0.7 mg/dL (0.2-1.3)
--- NOTE | 2020-07-06 09:14 | XR ---
EXAMINATION TYPE: XR chest 1V portable DATE OF EXAM: 07/06/2020 HISTORY: Shortness of breath. COMPARISON: 07/03/2020 TECHNIQUE: Single view of the chest is submitted. FINDINGS: Demonstrated are scattered senescent parenchymal change. Cardiomegaly. Small bilateral pleural effusions. Pulmonary venous congestion. Overall stable appearan ce. Hilar and mediastinal structures are within normal limits. Degenerative changes are seen of the dorsal spine. IMPRESSION: 1. Stable chest.
--- NOTE | 2020-07-06 09:39 | P.PN ---
Subjective Progress Note Date: 07/06/20 This 74-year-old female with past medical history significant for coronary artery disease with prior stenting of the ostial circumflex, proximal LAD and distal left main in 2019, hypertension, hyperlipidemia, COPD, ischemic cardiomyopathy that recently improved, history of cardiogenic shock. She follows in the office with Dr. eleonoar Carpenter. She presented to the hospital on this admission with symptoms of chest discomfort was taken to the cardiac catheterization lab where she underwent stenting of the circumflex artery. The patient was seen and examined this morning sitting up in her chair at bedside. She complains that she has significant orthopnea and is unable to lie flat, she also states that for the past couple of days she's had several episodes of nausea and vomiting. CT of the abdomen had been requested but patient is unable to lie flat for that testing. Patient also states this morning she had an episode of chest pressure which lasted approximately half hours in duration, she was given 2 sublingual nitroglycerin with relief of symptoms. Her blood pressure this morning 156/70 with a heart rate in the 60s 94% on 2 L of oxygen. White blood cell count 10.7, hemoglobin 10.5, platelet count 295. Sodium 128, potassium 3.6, BUN 20, creatinine 0.9. Liver function tests are normal. Objective - Vital Signs Vital signs: Vital Signs Temp 97.9 F 07/06/20 03:46 Pulse 66 07/06/20 03:46 Resp 16 07/06/20 03:46 BP 156/72 07/06/20 04:43 Pulse Ox 94 L 07/06/20 07:55 Intake & Output 07/05/20 07/06/20 07/06/20 18:59 06:59 18:59 Intake Total 240 Output Total 5 Balance 235 Weight 108.3 kg 106.5 kg Intake: Oral 240 Output: Emesis 5 Other: Voiding Method Toilet # Voids 1 1 # Bowel Movements 1 - Exam PHYSICAL EXAMINATION Blood pressure 156/72 heart rate 66 afebrile and maintaining oxygen saturation on nasal cannula. CONSTITUTIONAL:Tachyneic. HEENT: Head is normocephalic. Pupils are equal, round. Sclerae anicteric. Mucous membranes of the mouth are moist. No JVD. No carotid bruit. CHEST EXAMINATION: Bibasilar rales, greater on the left. Diminished air entry bilaterally. No chest wall tenderness is noted on palpation or with deep breathing. HEART EXAMINATION: Regular rate and rhythm. S1, S2 heard. No murmurs, gallops or rub. ABDOMEN: Soft, nontender. Positive bowel sounds. EXTREMITIES: Right lower extremity 1+ pitting edema, caste in place to left lower extremity. NEUROLOGIC EXAMINATION: Patient is awake, alert and oriented x3. - Labs CBC & Chem 7: 07/06/20 07:13 07/06/20 07:13 Labs: Abnormal Lab Results - Last 24 Hours (Table) 07/05/20 07/05/20 07/05/20 Range/Units 12:09 17:04 20:01 WBC (3.8-10.6) k/uL Hgb (11.4-16.0) gm/dL Hct (34.0-46.0) % MCV (80.0-100.0) fL MCH (25.0-35.0) pg RDW (11.5-15.5) % Neutrophils # (1.3-7.7) k/uL Sodium (137-145) mmol/L Chloride (98-107) mmol/L Carbon Dioxide (22-30) mmol/L BUN (7-17) mg/dL Glucose (74-99) mg/dL POC Glucose (mg/dL) 202 H 212 H 214 H (75-99) mg/dL 07/06/20 07/06/20 07/06/20 Range/Units 06:25 07:13 07:13 WBC 10.7 H (3.8-10.6) k/uL Hgb 10.5 L (11.4-16.0) gm/dL Hct 33.0 L (34.0-46.0) % MCV 71.4 L (80.0-100.0) fL MCH 22.7 L (25.0-35.0) pg RDW 19.6 H (11.5-15.5) % Neutrophils # 8.4 H (1.3-7.7) k/uL Sodium 128 L (137-145) mmol/L Chloride 87 L (98-107) mmol/L Carbon Dioxide 32 H (22-30) mmol/L BUN 20 H (7-17) mg/dL Glucose 187 H (74-99) mg/dL POC Glucose (mg/dL) 184 H (75-99) mg/dL Assessment and Plan Plan: Assessment and plan #1 unstable angina, status post angioplasty and stenting of the circumflex artery #2 systolic congestive heart failure acute on chronic #3 known history of prior coronary artery disease #4 hypertension #5 hyperlipidemia #6 ischemic cardio myopathy #7 diabetes #8 COPD #9 episodes of nausea and vomiting Plan We will obtain a chest x-ray this morning because of the patient's complaints of shortness of breath and significant orthopnea. We will also obtain an EKG as the patient had an episode of chest discomfort earlier this morning. CAT scan of the abdomen has been requested. Continue dual antiplatelet therapy as well as the rest of the patient's medications. Further recommendations to follow. DNP note has been reviewed, I agree with a documented findings and plan of care. Patient was seen and examined.
[2020-07-06] MEDS: ASPIRIN 81 MG PO SCH (10:09)
[2020-07-06] MEDS: lisinopriL 10 MG TAB PO SCH (10:11)
[2020-07-06] MEDS: FUROSEMIDE 40 MG TAB PO SCH ×2 (10:13→16:43)
[2020-07-06] MEDS: CLOPIDOGREL 75 MG TAB PO SCH (10:13)
[2020-07-06] MEDS: rOPINIRole HCL 4 MG TABLET PO SCH ×3 (10:13→20:01)
[2020-07-06] MEDS: ISOSORBIDE MONONITRATE ER 30 MG TAB.ER.24H PO SCH (10:14)
[2020-07-06] MEDS: METOPROLOL TARTRATE 50 MG TAB PO SCH ×2 (10:14→20:01)
[2020-07-06] MEDS: hydrALAZINE HCL 50 MG TAB PO SCH ×3 (10:14→20:01)
[2020-07-06] MEDS: METOCLOPRAMIDE 10 MG TAB PO SCH ×4 (10:14→20:01)
[2020-07-06] MEDS: SPIRONOLACTONE 25 MG TAB PO SCH (11:55)
[2020-07-06 12:04] LABS: Glucose,Whole Blood 189 mg/dL (75-99)
--- NOTE | 2020-07-06 15:42 | PN ---
PROGRESS NOTE DATE OF SERVICE: 07/06/2020 REASON FOR FOLLOWUP: Bilateral diabetic foot plantar ulcer. INTERVAL HISTORY: The patient is currently afebrile. Patient is breathing comfortably. No nausea, no vomiting. No chest pain, shortness of breath. No abdominal pain or pain to the lower extremity. PHYSICAL EXAMINATION: Blood pressure 145/67 with a pulse of 64. Temperature 97.6. He is 100% on 2 L nasal cannula. General description is an elderly female up in the chair in no distress. Respiratory system: Unlabored breathing. Clear to auscultation anteriorly. Heart S1, S2. Regular rate and rhythm. Abdomen soft, no tenderness. Bilateral foot wound has decreased in depth. No slough tissue. No surrounding redness. LABS: Hemoglobin is 10.5, white count 10.7. Creatinine 0.91. DIAGNOSTIC IMPRESSION AND PLAN: Patient with bilateral diabetic foot plantar ulcer. No evidence of any secondary cellulitis. Local care to continue with Aquacel Silver dressing dry to be changed q.48 hours and as needed if this patient gets wet and continue supportive care. MMODL / IJN: [id number] /
[2020-07-06 17:04] LABS: Glucose,Whole Blood 189 mg/dL (75-99)
--- NOTE | 2020-07-06 18:29 | P.CONS ---
History of Present Illness - Reason for Consult Consult date: 07/06/20 Nausea Requesting physician: Medardo Grande - Chief Complaint Chest pain - History of Present Illness 74-year-old female with multiple medical comorbidities including COPD, diabetes mellitus, hyperlipidemia, hypertension, coronary artery disease, ischemic cardiomyopathy who presented to the hospital due to chest pain. The patient was taken for cardiac catheterization with stenting of the circumflex artery. Gastroenterology was consult dated to see the patient regarding complaints of nausea. The patient has a long-standing history of reflux disease and is treated with Carafate and Prilosec in the outpatient setting. She states that she takes Tums for breakthrough heartburn. She has had multiple endoscopic procedures in the past with EGD for reflux in 10/30/2016 significant for gastritis and esophagitis, EGD in 02/15/2018 significant for esophagitis, gastritis and a hiatal hernia, and recent EGD in 10/2019 for nausea with findings of gastritis. Last colonoscopy in 05/24/2018 significant for hemorrhoids and rectal polyp. Laboratory evaluation significant for WBC 10.7, hemoglobin 10.5, glucose 293,000 with total bilirubin 0.7, alkaline phosphatase 77, AST 19 and ALT 17. Review of Systems REVIEW OF SYSTEMS: CONSTITUTIONAL: Denies any fevers, chills, weight change or fatigue. CARDIOVASCULAR: Denies any chest pain currently she did have some chest pain this morning relieved with nitroglycerin , palpitations high or low blood pressures RESPIRATORY: Denies any shortness of breath, hemoptysis or cough. GENITOURINARY: No dysuria or hematuria. MUSCULOSKELETAL: No weakness reported. SKIN: Denies any new rashes or lesions, jaundice or pallor. PSYCHIATRIC: Denies any depression or anxiety. NEUROLOGY: Denies headache, denies any new focal deficits. EARS/NOSE/THROAT: No recent hearing change, congestion, nasal discharge or sore throat. EYES: No pain in eyes, discharge or change in vision. GASTROINTESTINAL: As per HPI. 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 edema/respiratory failure, cardiomyopathy, NIDDM type II, neuropathy bilateral feet, bilateral diabetic foot ulcers, past cellulitis, pneumonias, past R lung pne with empyema/surgery, gastritis, colitis/frequent diarrhea, benign colon polyps, renal disease stage III, IRA with no device used d/t severe clausterphobia, home oxygen at 2L/NC at HS, occasional lower leg edema, RLS, Last Myocardial Infarction Date:: 2019 History of Any Multi-Drug Resistant Organisms: None Reported Past Surgical History: Appendectomy, Breast Surgery, Cholecystectomy, Heart Catheterization, Heart Catheterization With Stent Additional Past Surgical History / Comment(s): PCI with stents, R lung th oracotomy/decortication for empyema, bilateral feet/sores debrided, L breast benign bx, colonoscopy/benign polypectomy, EGD Past Anesthesia/Blood Transfusion Reactions: No Reported Reaction Additional Past Anesthesia/Blood Transfusion Reaction / Comm: severe claustrophobia Date of Last Stent Placement:: 11/27/19 Past Psychological History: No Psychological Hx Reported Smoking Status: Former smoker Past Alcohol Use History: None Reported Past Drug Use History: None Reported - Past Family History Brother(s) Family Medical History: Cancer Additional Family Medical History / Comment(s): Colon cancer Father Family Medical History: Chest Pain / Angina Additional Family Medical History / Comment(s): Father of a NV at the age of 77yrs. Mother Family Medical History: Chest Pain / Angina Additional Family Medical History / Comment(s): Mother of a NV at the age of 74yrs. Medications and Allergies Home Medications Medication Instructions Recorded Confirmed Type Cholecalciferol [Vitamin D3 (25 1,000 unit PO DAILY 02/26/15 07/01/20 History Mcg = 1000 Iu)] Clopidogrel [Plavix] 75 mg PO DAILY 09/05/15 07/01/20 History Montelukast Sodium [Singulair] 10 mg PO HS #30 tab 10/25/15 07/01/20 Rx [place]-3 Fatty Acids [[place]-3] 2,000 mg PO DAILY 09/29/18 07/01/20 History Dicyclomine [Bentyl] 10 mg PO DAILY 04/16/19 07/01/20 History Acetaminophen Tab [Tylenol] 500 mg PO Q6HR PRN tab 06/23/19 07/01/20 Rx Dulaglutide [Trulicity] 1.5 mg SQ KISER 08/15/19 07/01/20 History Insulin Aspart Protam & Aspart 30 unit SQ BID 08/15/19 07/01/20 History [NovoLOG MIX 70-30 Flexpen] Metoclopramide [Reglan] 10 mg PO QID PRN 08/15/19 07/01/20 History Magnesium Oxide 400 mg PO DAILY 11/02/19 07/01/20 History rOPINIRole HCL [Requip] 4 mg PO TID 11/02/19 07/01/20 History Omeprazole [PriLOSEC] 40 mg PO HS #30 cap 11/08/19 07/01/20 Rx Ranolazine [Ranexa] 500 mg PO Q12HR #60 tab.er.12h 11/08/19 07/01/20 Rx Atorvastatin [Lipitor] 80 mg PO HS 02/09/20 07/01/20 History Ferrous Sulfate [Iron (65 MG 325 mg PO DAILY 02/09/20 07/01/20 History Elemental)] metFORMIN HCL 1,000 mg PO BID 02/09/20 07/01/20 History hydrALAZINE HCL [Apresoline] 25 mg PO BID 30 Days #60 tab 02/16/20 07/01/20 Rx HYDROcodone/APAP 7.5-325MG [[place] 1 tab PO QID 04/12/20 07/01/20 History 7.5-325] Metoprolol Tartrate [Lopressor] 50 mg PO BID 04/12/20 07/01/20 History Nitroglycerin Sl Tabs [Nitrostat] 0.4 mg SL Q5M PRN 04/12/20 07/01/20 History Sucralfate [Carafate] 1 gm PO QID 04/12/20 07/01/20 History Aspirin 81 mg PO DAILY chew 04/16/20 07/01/20 Rx Isosorbide Dinitrate 30 mg PO DAILY 07/01/20 07/01/20 History lisinopriL [Zestril] 5 mg PO DAILY 07/01/20 07/01/20 History Furosemide [Lasix] 40 mg PO BID@0900,1600 #60 tab 07/04/20 Rx Allergies Allergy/AdvReac Type Severity Reaction Status Date / Time amoxicillin [From Augmentin] Allergy Rash/Hives Verified 06/30/20 20:50 clavulanic acid Allergy Rash/Hives Verified 06/30/20 20:50 [From Augmentin] metronidazole [From Flagyl] Allergy Nausea & Verified 06/30/20 20:50 Vomiting adhesive tape AdvReac bruises,"paper Verified 06/30/20 20:50 tape is ok" albuterol AdvReac Rapid Verified 06/30/20 20:50 Heart Rate stress test injection Allergy Anaphylaxis Uncoded 04/12/20 07:18 Physical Exam Vitals: Vital Signs Temp Pulse Resp BP Pulse Ox 07/06/20 07:55 94 L 07/06/20 04:43 156/72 07/06/20 04:40 168/74 07/06/20 03:46 97.9 F 66 16 183/92 97 07/06/20 02:00 18 07/05/20 23:00 98.2 F 80 18 183/79 94 L 07/05/20 20:00 18 07/05/20 19:45 98.1 F 77 18 177/77 96 07/05/20 16:00 97.8 F 68 16 133/64 98 07/05/20 12:00 67 18 162/72 97 Intake and Output 07/05/20 07/06/20 07/06/20 22:59 06:59 14:59 Output Total 5 Balance -5 Output: Emesis 5 Other: Voiding Method Toilet Toilet # Voids 1 Weight 106.5 kg On physical examination, patient appears comfortable in no apparent distress. HEAD: Normocephalic, atraumatic. EYES: No scleral icterus. No conjunctival injection. MOUTH: No lesions, tongue midline. NECK: Trachea midline, no gross abnormalities. CHEST: Decreased air entry in all lung [place]. HEART: S1-S2 appreciated. ABDOMEN: Soft, obese and nontender to palpation. Bowel sounds are positive. No organomegaly. No guarding or rigidity. EXTREMITIES: Bilateral pedal edema. SKIN: No rashes, no jaundice. NEUROLOGIC: Alert and oriented x3. No focal deficits. Results CBC & Chem 7: 07/06/20 07:13 07/06/20 07:13 Labs: Abnormal Lab Results - Last 24 Hours (Table) 07/05/20 07/05/20 07/05/20 Range/Units 12:09 17:04 20:01 WBC (3.8-10.6) k/uL Hgb (11.4-16.0) gm/dL Hct (34.0-46.0) % MCV (80.0-100.0) fL MCH (25.0-35.0) pg RDW (11.5-15.5) % Neutrophils # (1.3-7.7) k/uL Sodium (137-145) mmol/L Chloride (98-107) mmol/L Carbon Dioxide (22-30) mmol/L BUN (7-17) mg/dL Glucose (74-99) mg/dL POC Glucose (mg/dL) 202 H 212 H 214 H (75-99) mg/dL 07/06/20 07/06/20 07/06/20 Range/Units 06:25 07:13 07:13 WBC 10.7 H (3.8-10.6) k/uL Hgb 10.5 L (11.4-16.0) gm/dL Hct 33.0 L (34.0-46.0) % MCV 71.4 L (80.0-100.0) fL MCH 22.7 L (25.0-35.0) pg RDW 19.6 H (11.5-15.5) % Neutrophils # 8.4 H (1.3-7.7) k/uL Sodium 128 L (137-145) mmol/L Chloride 87 L (98-107) mmol/L Carbon Dioxide 32 H (22-30) mmol/L BUN 20 H (7-17) mg/dL Glucose 187 H (74-99) mg/dL POC Glucose (mg/dL) 184 H (75-99) mg/dL Chest x-ray: report reviewed (X-ray of the chest with no acute findings) Assessment and Plan (1) Nausea & vomiting Narrative/Plan: 74-year-old female with multiple medical comorbidities presenting to the hospital with chest pain status post cardiac arthritis sedation with stent placement. She had complained of some nausea. Patient has had similar complaints in the past and has had multiple upper endoscopies with the last in 10/2019 with findings of mild gastritis. The patient is on omeprazole, Carafate and Reglan in the outpatient setting. Unclear etiology, patient's nausea is likely multifactorial related to uncontrolled reflux, possible gastroparesis in the setting of diabetes, medication effect or other etiology. Current Visit: No Status: Acute Code(s): R11.2 - NAUSEA WITH VOMITING, UNSPECIFIED SNOMED Code(s): 10620967 (2) GERD (gastroesophageal reflux disease) Current Visit: No Status: Acute Code(s): K21.9 - GASTRO-ESOPHAGEAL REFLUX DISEASE WITHOUT ESOPHAGITIS SNOMED Code(s): 800665006 Plan: Supportive care Okay for diet as tolerated, recommend low fiber/low fat with small frequent meals Protonix 40 mg daily, will increase to twice daily Continue Carafate before meals and at night Continue other antiemetic therapy as needed for nausea No plan for endoscopic evaluation given recent EGD in 10/2019 with findings of mild gastritis Continue other medical management per primary team and cardiology service Thank you for allowing us to participate in the care of the patient
[2020-07-06 19:55] LABS: Glucose,Whole Blood 169 mg/dL (75-99)
[2020-07-07 05:33] LABS: Glucose,Whole Blood 178 mg/dL (75-99)
[2020-07-07] MEDS: HYDROcodone/APAP 7.5-325MG 1 EACH TAB PO PRN ×2 (06:22→20:39)
[2020-07-07] MEDS: SUCRALFATE 1 GM TAB PO SCH ×3 (06:23→17:29)
[2020-07-07] MEDS: INSULIN ASPART (NovoLOG) 100 UNIT/ML VIAL SQ SCH ×4 (06:23→20:39)
[2020-07-07] MEDS: PANTOPRAZOLE 40 MG TABLET PO SCH ×2 (06:23→17:29)
[2020-07-07] MEDS: ONDANSETRON 4 MG/2 ML VIAL IVP PRN ×2 (06:23→20:39)
[2020-07-07] MEDS: DICYCLOMINE 10 MG CAP PO PRN ×2 (06:23→20:38)
[2020-07-07] MEDS: METOCLOPRAMIDE 10 MG TAB PO SCH ×4 (06:28→20:38)
[2020-07-07 07:05] LABS: Anisocytosis Slight; Basophils % (A) 0 %; Eosinophils # (A) 0.1 k/uL (0-0.7); Eosinophils % (A) 1 %; HCT 34.8 % (34.0-46.0); HGB 10.7 gm/dL (11.4-16.0); Hypochromasia Moderate; Lymphocytes # (A) 1.8 k/uL (1.0-4.8); Lymphocytes % (A) 20 %; MCHC 30.6 g/dL (31.0-37.0); MCV 71.8 fL (80.0-100.0); Mean Platelet Volume 6.4; Microcytosis Marked; Monocytes # (A) 0.5 k/uL (0-1.0); Monocytes % (A) 6 %; Neutrophils # (A) 6.5 k/uL (1.3-7.7); Neutrophils % (A) 72 %; Platelet Count 307 k/uL (150-450); RBC 4.85 m/uL (3.80-5.40); RDW 19.6 % (11.5-15.5)
[2020-07-07 07:16] LABS: Albumin 3.7 g/dL (3.5-5.0); Calcium 9.3 mg/dL (8.4-10.2); Potassium 3.7 mmol/L (3.5-5.1); Total Bilirubin 0.8 mg/dL (0.2-1.3); Total Protein 6.9 g/dL (6.3-8.2)
--- NOTE | 2020-07-07 07:47 | PN ---
PROGRESS NOTE She was seen by Dr. Perez for bilateral foot ulcers today. She showed no secondary cellulitis. Continue with Aquasol dressings every 48 hours. Supportive care. Will change her boot as an outpatient maybe on her left leg. Dr. Carter saw her on consultation at my request for severe nausea and vomiting and abdominal pain. She is status post PTCA of the circumflex x2. Dr. Carter, the GI doctor, said she is on Carafate and omeprazole and Reglan, he says probably multifactorial secondary to uncontrolled reflux, gastroparesis. He had no plan for endoscopy. Continue current management. He increased the Protonix to 40 b.i.d. Carafate and Reglan. Possibly to be discharged home in the next 2 days. LABS: Show white count 10.7, hemoglobin 10.5, sodium 128, potassium 3.6, albumin 3.8. I am going to order a urine spot sodium on her due to low sodium levels and continue current treatments, possibly due to dehydration from vomiting, status post PTCA, hyponatremia ,elevated CO2 due to hypercapnic respiratory distress secondary to COPD. She has history of coronary artery disease, diabetes, diabetic foot infection. PROGNOSIS: Extremely guarded. MMODL / IJN: [id number] /
[2020-07-07] MEDS: CLOPIDOGREL 75 MG TAB PO SCH (09:20)
[2020-07-07] MEDS: hydrALAZINE HCL 50 MG TAB PO SCH ×3 (09:20→20:38)
[2020-07-07] MEDS: ASPIRIN 81 MG PO SCH (09:20)
[2020-07-07] MEDS: FUROSEMIDE 40 MG TAB PO SCH ×2 (09:20→15:47)
[2020-07-07] MEDS: rOPINIRole HCL 4 MG TABLET PO SCH ×3 (09:21→20:38)
[2020-07-07] MEDS: ISOSORBIDE MONONITRATE ER 30 MG TAB.ER.24H PO SCH (09:21)
[2020-07-07] MEDS: SPIRONOLACTONE 25 MG TAB PO SCH (09:21)
[2020-07-07] MEDS: lisinopriL 10 MG TAB PO SCH (09:21)
[2020-07-07] MEDS: METOPROLOL TARTRATE 50 MG TAB PO SCH ×2 (09:21→20:38)
--- NOTE | 2020-07-07 10:17 | P.PN ---
Subjective Progress Note Date: 07/07/20 Principal diagnosis: Unstable angina with acute coronary artery disease status post stent of left circumflex Acute hypoxic respiratory failure Retrosternal chest pain with ongoing shortness of breath and unstable angina with elevated tropes Unstable angina Chronic kidney disease Coronary artery disease Congestive heart failure acute on chronic systolic heart failure History of prior DVT COPD Sleep disorder breathing and sleep apnea refused CPAP or BiPAP machine Chronic hypoxic respiratory failure on home oxygen at bedtime 07/07/2020, patient seen eval examined during the rounds labs reviewed remains on room air, respiratory status stable denies any chest pain does complain of some abdominal discomfort no diarrhea or vomiting is present she has services following and evaluating patient, , labs done today reviewed last check oxygen saturation 95% 2 L, last chest x-ray remains stable performed yesterday 07/05/2020, patient remains on 2 L oxygen saturations remained stable however patient feels weak quality of sleep has been poor he would like to stay in the hospital, denies any cough or sputum production 07/04/2020, patient is in a stepdown, denies any chest pain or shortness of breath, breathing comfortably, remains on supplemental oxygen, oxygen saturation is 96% on 2 L, hemodynamic status stable, last chest x-ray performed on the 217 continue show small pleural effusion improving atelectasis interstitial edema 07/03/2020, patient seen eval reexamined during the rounds labs reviewed medications reviewed she is remains stable hemodynamically, has been diuresed, labs reviewed creatinine remained stable oxygen saturation is 95% on 2 L oxygen patient is downgraded to selective care him a hemoglobin remained stable at 9.1 with white cell count 10,900, BUN/creatinine improved to 24/.9 07/02/2020, patient seen eval reexamined in the ICU successfully weaned and extubated patient left on ventilator for ischemic heart disease status post cardiac cath and angiogram where radical stenosis was seen in left circumflex where stent was placed tolerated well due to hypoxia and desaturation patient was kept on respirator overnight this morning placed on CPAP 5 pressure support of 5 arterial blood gas were seen weaning parameters reviewed successfully extubated on supplemental oxygen, hemodynamic status remains stable, white cell count is slightly up 12,900 hemoglobin remained stable showing a downward trend with microcytosis Petrin, hyponatremia slightly improved renal functions also improved, This is a 74-year-old female, seen evaluated examined on 6 floor, patient admitted into the hospital through the emergency department with retrosternal chest pain intermittent for the last 4 days has been progressive, some association with food is present, patient does take nitro as needed, she took 4 nitro without any improvement in pain decided to come into the hospital, patient also took aspirin, patient has a previous cardiac cath angiogram performed in March which was unremarkable, cardiology has been consulted, patient currently on heparin and nitro drip being transferred to ICU likely had a stat cardiac cath and angiogram, chest x-ray consistent with CHF-like changes, EKG incomplete left bundle branch block along with inferior ischemic changes Objective - Vital Signs Vital signs: Vital Signs Temp 97.9 F 07/07/20 08:00 Pulse 82 07/07/20 08:00 Resp 16 07/07/20 08:00 BP 140/67 07/07/20 08:00 Pulse Ox 95 07/07/20 08:00 Intake & Output 07/06/20 07/07/20 07/07/20 18:59 06:59 18:59 Intake Total 240 480 Output Total 700 Balance 240 -700 480 Weight 106.5 kg 106.3 kg Intake: Oral 240 480 Output: Urine 700 Other: Voiding Method Toilet Toilet # Voids 2 1 - Exam - Constitutional General appearance: average body habitus, cooperative, disheveled - EENT Eyes: EOMI, PERRLA ENT: normal oropharynx Ears: bilateral: normal - Neck Neck: normal ROM Carotids: bilateral: upstroke normal Thyroid: bilateral: normal size - Respiratory Respiratory: bilateral: CTA, diminished - Cardiovascular Rhythm: regular Heart sounds: normal: S1, S2 - Gastrointestinal General gastrointestinal: distended, normal bowel sounds, soft - Neurologic Neurologic: CNII-XII intact - Musculoskeletal Musculoskeletal: gait normal, generalized weakness, strength equal bilaterally - Psychiatric Psychiatric: A&O x's 3, appropriate affect, intact judgment & insight - Labs CBC & Chem 7: 07/07/20 06:51 07/07/20 06:51 Labs: Abnormal Lab Results - Last 24 Hours (Table) 07/06/20 07/06/20 07/06/20 Range/Units 12:02 17:02 19:49 Hgb (11.4-16.0) gm/dL MCV (80.0-100.0) fL MCH (25.0-35.0) pg MCHC (31.0-37.0) g/dL RDW (11.5-15.5) % Sodium (137-145) mmol/L Chloride (98-107) mmol/L Carbon Dioxide (22-30) mmol/L BUN (7-17) mg/dL Glucose (74-99) mg/dL POC Glucose (mg/dL) 189 H 189 H 169 H (75-99) mg/dL 07/07/20 07/07/20 07/07/20 Range/Units 05:30 06:51 06:51 Hgb 10.7 L (11.4-16.0) gm/dL MCV 71.8 L (80.0-100.0) fL MCH 22.0 L (25.0-35.0) pg MCHC 30.6 L (31.0-37.0) g/dL RDW 19.6 H (11.5-15.5) % Sodium 128 L (137-145) mmol/L Chloride 87 L (98-107) mmol/L Carbon Dioxide 34 H (22-30) mmol/L BUN 21 H (7-17) mg/dL Glucose 164 H (74-99) mg/dL POC Glucose (mg/dL) 178 H (75-99) mg/dL Assessment and Plan Assessment: Unstable angina with acute coronary artery disease status post stent of left circumflex Acute hypoxic respiratory failure Retrosternal chest pain with ongoing shortness of breath and unstable angina with elevated tropes Unstable angina Chronic kidney disease Coronary artery disease Congestive heart failure acute on chronic systolic heart failure History of prior DVT COPD Sleep disorder breathing and sleep apnea refused CPAP or BiPAP machine Chronic hypoxic respiratory failure on home oxygen at bedtime Plan: Successfully weaned and extubated Continue supplemental oxygen Start clear liquid diet as tolerated advanced to 1800 ADA diet Monitor renal functions closely Continue maximal medical therapy Continue dual agent antiplatelet therapy Findings of cardiac catheter angiogram reviewed Time with Patient: Greater than 30
--- NOTE | 2020-07-07 11:25 | P.PN ---
Subjective Progress Note Date: 07/07/20 This 74-year-old female with past medical history significant for coronary artery disease with prior stenting of the ostial circumflex, proximal LAD and distal left main in 2019, hypertension, hyperlipidemia, COPD, ischemic cardiomyopathy that recently improved, history of cardiogenic shock. She follows in the office with Dr. eleonora Carpenter. She presented to the hospital on this admission with symptoms of chest discomfort was taken to the cardiac catheterization lab where she underwent stenting of the circumflex artery. The patient was seen and examined this morning sitting up in her chair at bedside. She complains that she has significant orthopnea and is unable to lie flat, she also states that for the past couple of days she's had several episodes of nausea and vomiting. CT of the abdomen had been requested but patient is unable to lie flat for that testing. Patient also states this morning she had an episode of chest pressure which lasted approximately half hours in duration, she was given 2 sublingual nitroglycerin with relief of symptoms. Her blood pressure this morning 156/70 with a heart rate in the 60s 94% on 2 L of oxygen. White blood cell count 10.7, hemoglobin 10.5, platelet count 295. Sodium 128, potassium 3.6, BUN 20, creatinine 0.9. Liver function tests are normal. 06/28/2020 Patient seen and examined this morning, no longer having any vomiting, he was able to eat her breakfast and keep it down. Denies any chest pain and breathing overall is stable. Blood pressure 140/60 with a heart rate in the 80s, 95% on room air. White blood cell count 9.0, hemoglobin 10.7, platelet count 307, sodium 128, potassium 3.7, BUN 21, creatinine 0.8. Objective - Vital Signs Vital signs: Vital Signs Temp 97.9 F 07/07/20 08:00 Pulse 82 07/07/20 08:00 Resp 16 07/07/20 08:00 BP 140/67 07/07/20 08:00 Pulse Ox 95 07/07/20 08:00 Intake & Output 07/06/20 07/07/20 07/07/20 18:59 06:59 18:59 Intake Total 240 480 Output Total 700 Balance 240 -700 480 Weight 106.5 kg 106.3 kg 105.687 kg Intake: Oral 240 480 Output: Urine 700 Other: Voiding Method Toilet Toilet # Voids 2 1 - Exam PHYSICAL EXAMINATION Blood pressure 156/72 heart rate 66 afebrile and maintaining oxygen saturation on nasal cannula. CONSTITUTIONAL:Tachyneic. HEENT: Head is normocephalic. Pupils are equal, round. Sclerae anicteric. Mucous membranes of the mouth are moist. No JVD. No carotid bruit. CHEST EXAMINATION: Bibasilar rales, greater on the left. Diminished air entry bilaterally. No chest wall tenderness is noted on palpation or with deep breathing. HEART EXAMINATION: Regular rate and rhythm. S1, S2 heard. No murmurs, gallops or rub. ABDOMEN: Soft, nontender. Positive bowel sounds. EXTREMITIES: Right lower extremity 1+ pitting edema, caste in place to left lower extremity. NEUROLOGIC EXAMINATION: Patient is awake, alert and oriented x3. - Labs CBC & Chem 7: 07/07/20 06:51 07/07/20 06:51 Labs: Abnormal Lab Results - Last 24 Hours (Table) 07/06/20 07/06/20 07/06/20 Range/Units 12:02 17:02 19:49 Hgb (11.4-16.0) gm/dL MCV (80.0-100.0) fL MCH (25.0-35.0) pg MCHC (31.0-37.0) g/dL RDW (11.5-15.5) % Sodium (137-145) mmol/L Chloride (98-107) mmol/L Carbon Dioxide (22-30) mmol/L BUN (7-17) mg/dL Glucose (74-99) mg/dL POC Glucose (mg/dL) 189 H 189 H 169 H (75-99) mg/dL 07/07/20 07/07/20 07/07/20 Range/Units 05:30 06:51 06:51 Hgb 10.7 L (11.4-16.0) gm/dL MCV 71.8 L (80.0-100.0) fL MCH 22.0 L (25.0-35.0) pg MCHC 30.6 L (31.0-37.0) g/dL RDW 19.6 H (11.5-15.5) % Sodium 128 L (137-145) mmol/L Chloride 87 L (98-107) mmol/L Carbon Dioxide 34 H (22-30) mmol/L BUN 21 H (7-17) mg/dL Glucose 164 H (74-99) mg/dL POC Glucose (mg/dL) 178 H (75-99) mg/dL Assessment and Plan Plan: Assessment and plan #1 unstable angina, status post angioplasty and stenting of the circumflex artery #2 systolic congestive heart failure acute on chronic #3 known history of prior coronary artery disease #4 hypertension #5 hyperlipidemia #6 ischemic cardio myopathy #7 diabetes #8 COPD #9 episodes of nausea and vomiting Plan Chest x-ray was reviewed, no significant effusion. From cardiology's perspective, the patient may be able to be discharged once cleared by primary. Follow-up appointment in the office post discharge. DNP note has been reviewed, I agree with a documented findings and plan of care. Patient was seen and examined.
[2020-07-07 11:53] LABS: Glucose,Whole Blood 167 mg/dL (75-99)
[2020-07-07] MEDS ORDERED: LORazepam 2 MG/ML INJ IV STA (14:46)
--- NOTE | 2020-07-07 16:19 | CT ---
EXAMINATION TYPE: CT abdomen pelvis wo con DATE OF EXAM: 07/07/2020 COMPARISON: 02/11/2020 HISTORY: Nausea and vomiting CT DLP: mGycm Automated exposure control for dose reduction was used. Exam performed from the diaphragm to the floor the pelvis without contrast. There is bilateral pleural effusions and more on the left side. There is some mild subsegmental atele ctasis and linear density at the left lung base. Heart appears enlarged. There is no pericardial effu henry. There are clips from cholecystectomy. Liver shows no focal defect. The bile ducts are not dilated. Sp armani appears normal. There is no sign of pancreatic mass. The stomach is intact. There is no adrenal mass. Kidneys have normal size and contour. There is no hydronephrosis. Ureters a re not dilated. There is no retroperitoneal adenopathy. Bladder distends smoothly. There is no inguin al hernia. There is no free fluid in the pelvis. Uterus is anteverted. There is no evidence of a pelv ic mass. There are numerous sigmoid diverticula. There is no sign of diverticulitis. There is no mesenteric edema. There is no ascites or free air. There is no bowel obstruction. Appendi x is not seen. There is no sign of thickened appendix. There is some spurring in the lower thoracic spine. There is hypertrophic mild facet arthropathy. Abd ominal aorta is atheromatous. The bony pelvis is intact. Hip joints are intact. IMPRESSION: Sigmoid diverticulosis without diverticulitis. No acute abnormality within the abdomen and pelvis. There are new small bilateral pleural effusions and left basilar minimal infiltrate and atelectasis c ompared to old exam.
[2020-07-07 17:04] LABS: Glucose,Whole Blood 182 mg/dL (75-99)
--- NOTE | 2020-07-07 20:26 | PN ---
PROGRESS NOTE DATE OF SERVICE: 07/07/2020 REASON FOR FOLLOWUP: Bilateral diabetic foot ulcer. INTERVAL HISTORY: Patient is currently afebrile. The patient is breathing comfortably. Still complaining of nausea, but no vomiting. No chest pain, shortness of breath or cough. No abdominal pain or pain to the bilateral foot wound area. PHYSICAL EXAMINATION: Blood pressure is 150/84, pulse of 70, temperature of 98. She is 95% on room air. GENERAL DESCRIPTION: The patient is an elderly female up in the chair in no distress. RESPIRATORY SYSTEM: Unlabored breathing, clear to auscultation. HEART: S1, S2. Regular rate and rhythm. ABDOMEN: Soft, no tenderness. Bilateral feet wounds are currently dressed. No drainage on the dressing. LABS: Hemoglobin is 10.7, white count 9.0. BUN of 21, creatinine 0.84. DIAGNOSTIC IMPRESSION AND PLAN: Patient with bilateral feet, plantar ulcers with no evidence of any secondary cellulitis. Local wound care to continue with dry Aquacel dressing. Keep the area dry and off the pressure. No need for systemic antibiotic therapy. MMODL / IJN: [id number] /
[2020-07-07 20:32] LABS: Glucose,Whole Blood 168 mg/dL (75-99)
--- NOTE | 2020-07-07 21:06 | P.PN ---
Subjective Progress Note Date: 07/07/20 Principal diagnosis: Nausea and vomiting, GERD The patient is seen sitting bedside today. She was able to tolerate her breakfast. She reports some nausea but no vomiting. Objective - Vital Signs Vital signs: Vital Signs Temp 97.9 F 07/07/20 08:00 Pulse 82 07/07/20 08:00 Resp 16 07/07/20 08:00 BP 140/67 07/07/20 08:00 Pulse Ox 95 07/07/20 08:00 Intake & Output 07/06/20 07/07/20 07/07/20 18:59 06:59 18:59 Intake Total 240 480 Output Total 700 Balance 240 -700 480 Weight 106.5 kg 106.3 kg 105.687 kg Intake: Oral 240 480 Output: Urine 700 Other: Voiding Method Toilet Toilet # Voids 2 1 - Exam On physical examination, patient appears comfortable in no apparent distress. HEAD: Normocephalic, atraumatic. EYES: No scleral icterus. No conjunctival injection. MOUTH: No lesions, tongue midline. NECK: Trachea midline, no gross abnormalities. ABDOMEN: Soft, obese. Bowel sounds are positive. No organomegaly. No guarding or rigidity. EXTREMITIES: Bilateral pedal edema. SKIN: No rashes, no jaundice. NEUROLOGIC: Alert and oriented x3. No focal deficits. - Labs CBC & Chem 7: 07/07/20 06:51 07/07/20 06:51 Labs: Abnormal Lab Results - Last 24 Hours (Table) 07/06/20 07/06/20 07/06/20 Range/Units 12:02 17:02 19:49 Hgb (11.4-16.0) gm/dL MCV (80.0-100.0) fL MCH (25.0-35.0) pg MCHC (31.0-37.0) g/dL RDW (11.5-15.5) % Sodium (137-145) mmol/L Chloride (98-107) mmol/L Carbon Dioxide (22-30) mmol/L BUN (7-17) mg/dL Glucose (74-99) mg/dL POC Glucose (mg/dL) 189 H 189 H 169 H (75-99) mg/dL 07/07/20 07/07/20 07/07/20 Range/Units 05:30 06:51 06:51 Hgb 10.7 L (11.4-16.0) gm/dL MCV 71.8 L (80.0-100.0) fL MCH 22.0 L (25.0-35.0) pg MCHC 30.6 L (31.0-37.0) g/dL RDW 19.6 H (11.5-15.5) % Sodium 128 L (137-145) mmol/L Chloride 87 L (98-107) mmol/L Carbon Dioxide 34 H (22-30) mmol/L BUN 21 H (7-17) mg/dL Glucose 164 H (74-99) mg/dL POC Glucose (mg/dL) 178 H (75-99) mg/dL Assessment and Plan (1) Nausea & vomiting Narrative/Plan: 74-year-old female with multiple medical comorbidities presenting to the hospital with chest pain status post cardiac arthritis sedation with stent placement. She had complained of some nausea. Patient has had similar complaints in the past and has had multiple upper endoscopies with the last in 10/2019 with findings of mild gastritis. The patient is on omeprazole, Carafate and Reglan in the outpatient setting. Unclear etiology, patient's nausea is likely multifactorial related to uncontrolled reflux, possible gastroparesis in the setting of diabetes, medication effect or other etiology. No further vomiting. The patient is tolerating diet. Current Visit: No Status: Acute Code(s): R11.2 - NAUSEA WITH VOMITING, UNSPECIFIED SNOMED Code(s): 19707389 (2) GERD (gastroesophageal reflux disease) Current Visit: No Status: Acute Code(s): K21.9 - GASTRO-ESOPHAGEAL REFLUX DISEASE WITHOUT ESOPHAGITIS SNOMED Code(s): 012433612 Plan: Supportive care Okay for diet as tolerated, recommend low fiber/low fat with small frequent meals Protonix 40 mg twice daily Continue Carafate before meals and at night Continue other antiemetic therapy as needed for nausea No plan for endoscopic evaluation given recent EGD in 10/2019 with findings of mild gastritis Continue other medical management per primary team and cardiology service Thank you for allowing us to participate in the care of the patient
--- NOTE | 2020-07-07 23:25 | PN ---
PROGRESS NOTE States she has generalized weakness. Still has severe difficulty walking with abdominal pain. CT scan of the abdomen is pending Cardiovascular S1-S2. Lungs clear. GI soft. Hematology negative Homans. ASSESSMENT: 1. Status post PTCA. 2. Generalized weakness. 3. Hyponatremia. 4. Diabetic foot infection. 5. Congestive heart failure. 6. Chronic obstructive pulmonary disease. PROGNOSIS: Guarded. Continue PT/OT. Possible discharge home versus going to rehab. MMODL / IJN: [id number] /
[2020-07-08 06:15] LABS: Glucose,Whole Blood 159 mg/dL (75-99)
[2020-07-08] MEDS: SUCRALFATE 1 GM TAB PO SCH ×3 (06:25→17:18)
[2020-07-08] MEDS: INSULIN ASPART (NovoLOG) 100 UNIT/ML VIAL SQ SCH ×4 (06:25→19:58)
[2020-07-08] MEDS: PANTOPRAZOLE 40 MG TABLET PO SCH ×2 (06:25→17:18)
[2020-07-08] MEDS: HYDROcodone/APAP 7.5-325MG 1 EACH TAB PO PRN ×2 (06:27→19:58)
[2020-07-08] MEDS: hydrALAZINE HCL 50 MG TAB PO SCH ×3 (08:26→19:52)
[2020-07-08] MEDS: SPIRONOLACTONE 25 MG TAB PO SCH (08:26)
[2020-07-08] MEDS: METOPROLOL TARTRATE 50 MG TAB PO SCH ×2 (08:26→19:52)
[2020-07-08] MEDS: CLOPIDOGREL 75 MG TAB PO SCH (08:26)
[2020-07-08] MEDS: ASPIRIN 81 MG PO SCH (08:26)
[2020-07-08] MEDS: lisinopriL 10 MG TAB PO SCH ×2 (08:26→19:52)
[2020-07-08] MEDS: METOCLOPRAMIDE 10 MG TAB PO SCH ×4 (08:27→19:51)
[2020-07-08] MEDS: rOPINIRole HCL 4 MG TABLET PO SCH ×3 (08:27→19:52)
[2020-07-08] MEDS: ISOSORBIDE MONONITRATE ER 30 MG TAB.ER.24H PO SCH (08:27)
[2020-07-08] MEDS: FUROSEMIDE 40 MG TAB PO SCH ×2 (08:27→16:23)
[2020-07-08] MEDS: ONDANSETRON 4 MG/2 ML VIAL IVP PRN ×2 (08:30→17:23)
[2020-07-08] MEDS: NITROGLYCERIN SL TABS 0.4 MG TAB SUBLINGUAL PRN ×2 (09:28→09:33)
[2020-07-08] MEDS: ATORVASTATIN 80 MG TAB PO SCH (09:28)
--- NOTE | 2020-07-08 10:58 | P.PN ---
Subjective Progress Note Date: 07/08/20 Principal diagnosis: Unstable angina with acute coronary artery disease status post stent of left circumflex Acute hypoxic respiratory failure Retrosternal chest pain with ongoing shortness of breath and unstable angina with elevated tropes Unstable angina Chronic kidney disease Coronary artery disease Congestive heart failure acute on chronic systolic heart failure History of prior DVT COPD Sleep disorder breathing and sleep apnea refused CPAP or BiPAP machine Chronic hypoxic respiratory failure on home oxygen at bedtime 07/08/2020, respiratory status remains stable cough shortness of breath is improved, nausea or vomiting also improved and dynamic status stable him oxygen is on 2 L 93% to 95% 07/07/2020, patient seen eval examined during the rounds labs reviewed remains on room air, respiratory status stable denies any chest pain does complain of some abdominal discomfort no diarrhea or vomiting is present she has services following and evaluating patient, , labs done today reviewed last check oxygen saturation 95% 2 L, last chest x-ray remains stable performed yesterday 07/05/2020, patient remains on 2 L oxygen saturations remained stable however patient feels weak quality of sleep has been poor he would like to stay in the hospital, denies any cough or sputum production 07/04/2020, patient is in a stepdown, denies any chest pain or shortness of breath, breathing comfortably, remains on supplemental oxygen, oxygen saturation is 96% on 2 L, hemodynamic status stable, last chest x-ray performed on the 217 continue show small pleural effusion improving atelectasis interstitial edema 07/03/2020, patient seen eval reexamined during the rounds labs reviewed medications reviewed she is remains stable hemodynamically, has been diuresed, labs reviewed creatinine remained stable oxygen saturation is 95% on 2 L oxygen patient is downgraded to selective care him a hemoglobin remained stable at 9.1 with white cell count 10,900, BUN/creatinine improved to 24/.9 07/02/2020, patient seen eval reexamined in the ICU successfully weaned and extu bated patient left on ventilator for ischemic heart disease status post cardiac cath and angiogram where radical stenosis was seen in left circumflex where stent was placed tolerated well due to hypoxia and desaturation patient was kept on respirator overnight this morning placed on CPAP 5 pressure support of 5 arterial blood gas were seen weaning parameters reviewed successfully extubated on supplemental oxygen, hemodynamic status remains stable, white cell count is slightly up 12,900 hemoglobin remained stable showing a downward trend with microcytosis Petrin, hyponatremia slightly improved renal functions also improved, This is a 74-year-old female, seen evaluated examined on 6 floor, patient admitted into the hospital through the emergency department with retrosternal chest pain intermittent for the last 4 days has been progressive, some association with food is present, patient does take nitro as needed, she took 4 nitro without any improvement in pain decided to come into the hospital, patient also took aspirin, patient has a previous cardiac cath angiogram performed in March which was unremarkable, cardiology has been consulted, patient currently on heparin and nitro drip being transferred to ICU likely had a stat cardiac cath and angiogram, chest x-ray consistent with CHF-like changes, EKG incomplete left bundle branch block along with inferior ischemic changes Objective - Vital Signs Vital signs: Vital Signs Temp 98.0 F 07/08/20 08:00 Pulse 70 07/08/20 08:00 Resp 16 07/08/20 08:00 BP 151/67 07/08/20 08:00 Pulse Ox 95 07/08/20 08:00 Intake & Output 07/07/20 07/08/20 07/08/20 18:59 06:59 18:59 Intake Total 900 Output Total 925 1275 Balance -25 -1275 Weight 105.687 kg 105.2 kg Intake: Oral 900 Output: Urine 925 1275 Other: Voiding Method Toilet Toilet Toilet - Exam - Constitutional General appearance: average body habitus, cooperative, disheveled - EENT Eyes: EOMI, PERRLA ENT: normal oropharynx Ears: bilateral: normal - Neck Neck: normal ROM Carotids: bilateral: upstroke normal Thyroid: bilateral: normal size - Respiratory Respiratory: bilateral: CTA, diminished - Cardiovascular Rhythm: regular Heart sounds: normal: S1, S2 - Gastrointestinal General gastrointestinal: distended, normal bowel sounds, soft - Neurologic Neurologic: CNII-XII intact - Musculoskeletal Musculoskeletal: gait normal, generalized weakness, strength equal bilaterally - Psychiatric Psychiatric: A&O x's 3, appropriate affect, intact judgment & insight - Labs CBC & Chem 7: 07/07/20 06:51 07/07/20 06:51 Labs: Abnormal Lab Results - Last 24 Hours (Table) 07/07/20 07/07/20 07/07/20 Range/Units 11:51 17:02 20:31 POC Glucose (mg/dL) 167 H 182 H 168 H (75-99) mg/dL 07/08/20 Range/Units 06:13 POC Glucose (mg/dL) 159 H (75-99) mg/dL Assessment and Plan Assessment: Unstable angina with acute coronary artery disease status post stent of left circumflex Acute hypoxic respiratory failure Retrosternal chest pain with ongoing shortness of breath and unstable angina with elevated tropes Unstable angina Chronic kidney disease Coronary artery disease Congestive heart failure acute on chronic systolic heart failure History of prior DVT COPD Sleep disorder breathing and sleep apnea refused CPAP or BiPAP machine Chronic hypoxic respiratory failure on home oxygen at bedtime Plan: Successfully weaned and extubated Continue supplemental oxygen Start clear liquid diet as tolerated advanced to 1800 ADA diet Monitor renal functions closely Continue maximal medical therapy Continue dual agent antiplatelet therapy Findings of cardiac catheter angiogram reviewed Time with Patient: Greater than 30
--- NOTE | 2020-07-08 12:07 | PN ---
PROGRESS NOTE Mrs. Brand is a 74-year-old female with known history of coronary artery disease status post stenting of the proximal LAD and subsequently around Thanksgiving last year, stenting of the left main and the left circumflex, who was readmitted with symptoms of non STEMI and congestive heart failure requiring repeat stenting of the circumflex. She is doing well this morning. She has some chest discomfort but different from her anginal symptoms. She denies any dizziness or palpitation. She denies any nausea. Her echocardiogram revealed ejection fraction of 35% to 40% with mild to moderate mitral and mild tricuspid regurgitation. She continues to be at this time on aspirin once a day, Lipitor 80 mg daily, Plavix 75 mg daily, Lasix 40 mg twice a day, hydralazine 50 mg 3 times a day, lisinopril 10 mg daily, metoprolol tartrate 50 mg twice a day, spironolactone 25 mg daily. PHYSICAL EXAMINATION: VITAL SIGNS: Blood pressure running in the 140s to 150s with a heart rate in the 60s to 70s. LUNGS: Clear. HEART: Regular rate and rhythm, S1, S2. No S3 with systolic murmur, no diastolic murmur. ABDOMEN: Soft, obese. EXTREMITIES: No edema. LAB DATA: Revealed a sodium of 128 from yesterday, which has been stable. Her potassium is 3.7. IMPRESSION: 1. History of coronary artery disease status post stenting of the left circumflex with prior stenting of the left main and the left anterior descending. 2. Ischemic cardiomyopathy. 3. Abdominal discomfort with the nausea that has been evaluated by the GI Service. 4. History of hypertension. 5. History of hyperlipidemia. 6. History of diabetes. RECOMMENDATION: From the cardiac standpoint, I will continue present therapy. I will follow her renal function. We will follow her blood pressure to see further adjustment is needed. Will await the input of the GI service and depending on her progress, further recommendation will be made. MMODL / IJN: [id number] /
[2020-07-08 12:19] LABS: Glucose,Whole Blood 177 mg/dL (75-99)
[2020-07-08] MEDS: polyethylene glycoL 3350 17 GM POWD.PACK PO SCH (12:22)
[2020-07-08 14:21] VITALS: BMI 36.3
--- NOTE | 2020-07-08 14:35 | PN ---
PROGRESS NOTE DATE OF SERVICE: 07/08/2020 REASON FOR FOLLOWUP: Bilateral diabetic foot ulcers. INTERVAL HISTORY: The patient is currently afebrile. The patient is complaining of some nausea but no further vomiting. Denies any chest pain, shortness of breath or cough. No abdominal pain or pain to the lower extremity. PHYSICAL EXAMINATION: Blood pressure 155/77, pulse of 71, temperature 98.1. She is 96% on room air. General description is an elderly female up in the chair in no distress. Respiratory system: Unlabored breathing. Clear to auscultation anteriorly. Heart S1, S2. Regular rate and rhythm. ABDOMEN: Soft, no tenderness. Legs are currently wrapped up. No obvious drainage on the dressing. DIAGNOSTIC IMPRESSION AND PLAN: Patient with bilateral lower extremity ulcer with no evidence of any secondary cellulitis. Recommend local wound care with dry Aquacel dressing, offloading and hopefully to follow up in the [facility] for cast. Continue supportive care. MMODL / IJN: [id number] /
[2020-07-08 16:58] LABS: Glucose,Whole Blood 190 mg/dL (75-99)
--- NOTE | 2020-07-08 17:01 | P.PN ---
Subjective Progress Note Date: 07/08/20 Principal diagnosis: Nausea, vomiting Patient is seen and examined sitting up in her recliner. States she had episode of nausea this morning after taking her pills. States that seems like every time she eats anything she has some nausea following. SHe also reports she has not had a bowel movement since coming out of the ICU. Objective - Vital Signs Vital signs: Vital Signs Temp 98.0 F 07/08/20 08:00 Pulse 70 07/08/20 08:00 Resp 16 07/08/20 08:00 BP 151/67 07/08/20 08:00 Pulse Ox 95 07/08/20 08:00 Intake & Output 07/07/20 07/08/20 07/08/20 18:59 06:59 18:59 Intake Total 900 Output Total 925 1275 Balance -25 -1275 Weight 105.687 kg 105.2 kg Intake: Oral 900 Output: Urine 925 1275 Other: Voiding Method Toilet Toilet Toilet - Exam General appearance: The patient is alert, oriented, appears in no acute distress. Obese HET: Head is normocephalic and atraumatic. Conjunctiva pink. Sclera anicteric. Neck: Supple without lymphadenopathy. Abdomen: Soft, nontender, nondistended with bowel sounds. No guarding or rigidity. Extremities: Normal skin color and turgor. No pedal edema Skin: No rashes, no jaundice Neurological: No focal deficits. Alert and oriented 3. - Labs CBC & Chem 7: 07/07/20 06:51 07/07/20 06:51 Labs: Abnormal Lab Results - Last 24 Hours (Table) 07/07/20 07/07/20 07/07/20 Range/Units 11:51 17:02 20:31 POC Glucose (mg/dL) 167 H 182 H 168 H (75-99) mg/dL 07/08/20 Range/Units 06:13 POC Glucose (mg/dL) 159 H (75-99) mg/dL Assessment and Plan (1) Nausea & vomiting Narrative/Plan: 74-year-old female with multiple medical comorbidities presenting to the hospital with chest pain status post cardiac arthritis sedation with stent placement. She had complained of some nausea. Patient has had similar complaints in the past and has had multiple upper endoscopies with the last in 10/2019 with findings of mild gastritis. The patient is on omeprazole, Carafate and Reglan in the outpatient setting. Unclear etiology, patient's nausea is likely multifactorial related to uncontrolled reflux, possible gastroparesis in the setting of diabetes, medication effect or other etiology. Current Visit: No Status: Acute Code(s): R11.2 - NAUSEA WITH VOMITING, UNSPECIFIED SNOMED Code(s): 95229463 (2) GERD (gastroesophageal reflux disease) Current Visit: No Status: Acute Code(s): K21.9 - GASTRO-ESOPHAGEAL REFLUX DISEASE WITHOUT ESOPHAGITIS SNOMED Code(s): 992764685 Plan: 1. Supportive care 2. Will add MiraLAX daily 3. Continue with Protonix and Carafate 4. Diet as tolerated 5. Discuss with patient eats small frequent meals 6. Thank you for this consultation we will sign off Dr. Carter I agree with the dictator's note, documented as a scribe by Loly Ruiz.
--- NOTE | 2020-07-08 18:31 | PN ---
PROGRESS NOTE This patient is a 74-year-old white female, status post PTCA. She says she is having nausea still, possibly due to some of the medications; trying to discontinue some of the medicines she was on. She says she thinks that the new medicine makes her nausea, although I do not see anything that is new that has been added except Xanax. She wants to go to rehab at [facility], as she is unable to ambulate well due to leg weakness, status post PTCA of the right coronary artery. She has diabetic wound infections on both feet. Vital signs are reviewed. Temperature 98, respiratory rate 16 to 18, pulse 71 to 78, blood pressure 150s over 70s, oxygen 93% on room air. CARDIOVASCULAR: S1, S2. LUNGS: Clear. CONSTITUTIONAL: She feels weak, fatigued. GI: Soft. EXTREMITIES: No cyanosis, clubbing or edema. Dorsal wounds on bilateral feet under the great toes of significant nature. She remains on multiple blood pressure medications. Continue current treatments. Follow up in the next 24 to 48 hours for possible discharge to [facility]. MMODL / IJN: [id number] /
[2020-07-08 19:54] LABS: Glucose,Whole Blood 196 mg/dL (75-99)
[2020-07-09 06:10] LABS: Glucose,Whole Blood 182 mg/dL (75-99)
[2020-07-09] MEDS: PANTOPRAZOLE 40 MG TABLET PO SCH (06:44)
[2020-07-09] MEDS: INSULIN ASPART (NovoLOG) 100 UNIT/ML VIAL SQ SCH ×2 (06:44→12:11)
[2020-07-09] MEDS: SUCRALFATE 1 GM TAB PO SCH ×2 (06:44→12:11)
[2020-07-09] MEDS: ONDANSETRON 4 MG/2 ML VIAL IVP PRN (06:47)
[2020-07-09 08:11] LABS: Anisocytosis Slight; Basophils % (A) 0 %; Eosinophils # (A) 0.1 k/uL (0-0.7); Eosinophils % (A) 1 %; HCT 34.7 % (34.0-46.0); HGB 10.7 gm/dL (11.4-16.0); Hypochromasia Moderate; Lymphocytes # (A) 2.2 k/uL (1.0-4.8); Lymphocytes % (A) 22 %; MCH 22.2 pg (25.0-35.0); MCHC 30.8 g/dL (31.0-37.0); MCV 71.9 fL (80.0-100.0); Mean Platelet Volume 6.3; Microcytosis Marked; Monocytes # (A) 0.6 k/uL (0-1.0); Monocytes % (A) 6 %; Neutrophils % (A) 69 %; Platelet Count 321 k/uL (150-450); RBC 4.82 m/uL (3.80-5.40); RDW 19.5 % (11.5-15.5); WBC 10.1 k/uL (3.8-10.6)
[2020-07-09 08:39] LABS: Albumin 3.7 g/dL (3.5-5.0); Calcium 9.2 mg/dL (8.4-10.2); Potassium 3.9 mmol/L (3.5-5.1); Total Bilirubin 0.8 mg/dL (0.2-1.3); Total Protein 6.7 g/dL (6.3-8.2)
[2020-07-09] MEDS: ATORVASTATIN 80 MG TAB PO SCH (09:21)
[2020-07-09] MEDS: CLOPIDOGREL 75 MG TAB PO SCH (09:21)
[2020-07-09] MEDS: ISOSORBIDE MONONITRATE ER 30 MG TAB.ER.24H PO SCH (09:21)
[2020-07-09] MEDS: ASPIRIN 81 MG PO SCH (09:22)
[2020-07-09] MEDS: METOCLOPRAMIDE 10 MG TAB PO SCH ×2 (09:22→12:11)
[2020-07-09] MEDS: FUROSEMIDE 40 MG TAB PO SCH (09:22)
[2020-07-09] MEDS: lisinopriL 10 MG TAB PO SCH (09:22)
[2020-07-09] MEDS: SPIRONOLACTONE 25 MG TAB PO SCH (09:22)
[2020-07-09] MEDS: hydrALAZINE HCL 50 MG TAB PO SCH (09:23)
[2020-07-09] MEDS: METOPROLOL TARTRATE 50 MG TAB PO SCH (09:23)
[2020-07-09] MEDS: polyethylene glycoL 3350 17 GM POWD.PACK PO SCH (09:24)
[2020-07-09] MEDS: HYDROcodone/APAP 7.5-325MG 1 EACH TAB PO PRN (09:26)
[2020-07-09] MEDS: rOPINIRole HCL 4 MG TABLET PO SCH (09:27)
--- NOTE | 2020-07-09 11:32 | P.PN ---
Subjective Progress Note Date: 07/09/20 Principal diagnosis: Nausea, vomiting Should seen and examined sitting up in the bedside recliner. She states she is doing very well today. Denies any abdominal pain, nausea, or vomiting. States she had 4 bowel movements through the night and this morning after having her MiraLAX. Objective - Vital Signs Vital signs: Vital Signs Temp 97.8 F 07/09/20 08:00 Pulse 69 07/09/20 08:00 Resp 18 07/09/20 08:00 BP 103/47 07/09/20 08:00 Pulse Ox 93 L 07/09/20 08:31 Intake & Output 07/08/20 07/09/20 07/09/20 18:59 06:59 18:59 Intake Total 2150 720 480 Output Total 1550 500 150 Balance 600 220 330 Weight 105.6 kg 105.8 kg Intake: Oral 2150 720 480 Output: Urine 1550 500 150 Other: Voiding Method Toilet Toilet Toilet # Voids 1 1 # Bowel Movements 0 1 1 - Exam General appearance: The patient is alert, oriented, appears in no acute distress. Obese HET: Head is normocephalic and atraumatic. Conjunctiva pink. Sclera anicteric. Neck: Supple without lymphadenopathy. Abdomen: Soft, nontender, nondistended with bowel sounds. No guarding or rigidity. Extremities: Normal skin color and turgor. No pedal edema Skin: No rashes, no jaundice Neurological: No focal deficits. Alert and oriented 3. - Labs CBC & Chem 7: 07/09/20 07:44 07/09/20 07:44 Labs: Abnormal Lab Results - Last 24 Hours (Table) 07/08/20 07/08/20 07/08/20 Range/Units 12:12 16:54 19:46 Hgb (11.4-16.0) gm/dL MCV (80.0-100.0) fL MCH (25.0-35.0) pg MCHC (31.0-37.0) g/dL RDW (11.5-15.5) % Sodium (137-145) mmol/L Chloride (98-107) mmol/L BUN (7-17) mg/dL Creatinine (0.52-1.04) mg/dL Glucose (74-99) mg/dL POC Glucose (mg/dL) 177 H 190 H 196 H (75-99) mg/dL 07/09/20 07/09/20 07/09/20 Range/Units 06:06 07:44 07:44 Hgb 10.7 L (11.4-16.0) gm/dL MCV 71.9 L (80.0-100.0) fL MCH 22.2 L (25.0-35.0) pg MCHC 30.8 L (31.0-37.0) g/dL RDW 19.5 H (11.5-15.5) % Sodium 123 L (137-145) mmol/L Chloride 84 L (98-107) mmol/L BUN 28 H (7-17) mg/dL Creatinine 1.24 H (0.52-1.04) mg/dL Glucose 162 H (74-99) mg/dL POC Glucose (mg/dL) 182 H (75-99) mg/dL Assessment and Plan (1) Nausea & vomiting Narrative/Plan: 74-year-old female with multiple medical comorbidities presenting to the hospital with chest pain status post cardiac arthritis sedation with stent placement. She had complained of some nausea. Patient has had similar complaints in the past and has had multiple upper endoscopies with the last in 10/2019 with findings of mild gastritis. The patient is on omeprazole, Carafate and Reglan in the outpatient setting. Unclear etiology, patient's nausea is likely multifactorial related to uncontrolled reflux, possible gastroparesis in the setting of diabetes, medication effect or other etiology. I examined vomiting resolved. Current Visit: No Status: Acute Code(s): R11.2 - NAUSEA WITH VOMITING, UNSPECIFIED SNOMED Code(s): 57423576 (2) GERD (gastroesophageal reflux disease) Current Visit: No Status: Acute Code(s): K21.9 - GASTRO-ESOPHAGEAL REFLUX DISEASE WITHOUT ESOPHAGITIS SNOMED Code(s): 851704001 Plan: 1. Supportive care 2. MiraLAX as needed 3. Continue with Protonix and Carafate 4. Diet as tolerated 5. Discuss with patient eats small frequent meals 6. Thank you for this consultation we will sign off at this time Dr. Carter I agree with the dictator's note, documented as a scribe by Loly Ruiz.
[2020-07-09 11:38] LABS: Glucose,Whole Blood 179 mg/dL (75-99)
[2020-07-09 12:10] VITALS: BP 92/55; PULSE 61; RESP 15; TEMP 98
--- NOTE | 2020-07-09 13:10 | PN ---
PROGRESS NOTE Mrs. Brand is a 74-year-old female with a history of coronary artery disease, status post percutaneous revascularization. She is feeling much better today. Her nausea has resolved. Her chest discomfort resolved. Her breathing is stable. She has been ambulating without difficulty. She denies any dizziness or palpitation. She denies any nausea. She continues to be at this time on aspirin once a day, Lipitor 80 mg daily, Plavix 75 mg daily, Lasix 40 mg twice a day, hydralazine 50 mg 3 times a day, insulin, lisinopril 10 mg twice a day, metoprolol tartrate 50 mg twice a day, spironolactone 25 mg daily. PHYSICAL EXAMINATION: Blood pressure 103/50 with the heart rate in the 60s. LUNGS: Clear. HEART: Regular rate and rhythm. S1, S2. No S3 with systolic murmur. No diastolic murmur. ABDOMEN: Soft, nontender. EXTREMITIES: No edema. LAB DATA: Lab data revealed BUN and creatinine 28 and 1.24, potassium 3.9 hemoglobin of 10.7. IMPRESSION: 1. Status post non ST-elevation myocardial infarction and stenting of the left circumflex. 2. Prior stenting of the left main and the left anterior descending artery. 3. Cardiomyopathy. 4. Hypertension. RECOMMENDATION: From the cardiac standpoint, I will cut down the dose of her hydralazine, increase her level of activity. Decrease the dose of her diuretics. If she remains stable, hopefully she can be transferred to outpatient rehab and follow up with Dr. Mccullough on a regular basis. MMODL / IJN: [id number] /
--- NOTE | 2020-07-09 15:45 | PN ---
PROGRESS NOTE DATE OF SERVICE: 07/09/2020 REASON FOR FOLLOWUP: Bilateral diabetic foot ulcer. INTERVAL HISTORY: The patient is currently afebrile. Patient is breathing comfortably. No further nausea or vomiting. No chest pain, shortness of breath or cough and no pain to the lower extremities. PHYSICAL EXAMINATION: Blood pressure is 92/55 with pulse of 61, temperature 98. She is 95% on room air. General description is an elderly female up in the chair in no distress. RESPIRATORY SYSTEM: Unlabored breathing, clear to auscultation anteriorly. HEART: S1, S2. Regular rate and rhythm. ABDOMEN: Soft, no tenderness. Bilateral foot is currently dressed up. No obvious drainage on the dressing. LABS: Hemoglobin is 10.7, white count 10.1, BUN of 28, creatinine 1.24. DIAGNOSTIC IMPRESSION AND PLAN: Patient with bilateral diabetic foot ulcers. No cellulitis. Local care is currently with Aquacel Silver dressing. However, the patient benefit from the and to follow up in the wound care center. MMODL / IJN: [id number] /
[2020-07-09] MEDS ORDERED: hydrALAZINE HCL 50 MG TAB PO SCH (21:00)
--- NOTE | 2020-07-09 21:47 | DS ---
DISCHARGE SUMMARY This is a 74-year-old white female admitted to the hospital with hyponatremia, chest pain, unstable angina pectoris, chronic abdominal pain. Medications were adjusted. She underwent stenting of the right coronary artery. She has also been treated for diabetic wound infections on her legs, for which she will need long-term treatment. She sees Dr. Perez at the wound clinic once a week. Home medicines include Lasix 40 mg b.i.d., Aldactone 25 mg daily, Apresoline 50 t.i.d., MiraLAX 17 grams p.o. daily, Protonix 40 mg before meals b.i.d., vitamin D3 1000 units daily, Plavix 75 mg daily, Singulair 10 mg daily, omega-3 fatty acids 2000 mg daily, Bentyl 10 mg daily, NovoLog mix 70/30 30 units subcutaneously b.i.d., Trulicity 1.5 mg subcutaneously once a week on Sundays, Reglan 10 mg p.o. q.i.d., Reglan 4 mg t.i.d., magnesium oxide 400 mg daily, Ranexa 500 mg b.i.d., metformin 1000 b.i.d., ferrous sulfate 325 mg daily, Lipitor 80 mg daily, Lopressor 50 mg b.i.d., Carafate 1 gram q.i.d., [place] 7.5 q.i.d., nitroglycerin 0.4 mg sublingually p.r.n., aspirin 81 mg daily, Zestril 5 mg daily, Imdur 30 mg daily. Follow up with Dr. Grande at [facility] on the [place]. Condition stable. Prognosis guarded. Diet regular. PT/OT will be needed. Wound care per Dr. Perez for the wound infections of the feet. She will follow up with Dr. Perez in the wound clinic once a week. Her GI upset was increased with appropriate medicine. She is going to be given Aquacel Silver dressings b.i.d. to both feet. As mentioned, follow up in the wound care center with Dr. Perez and I will follow up with her at the long-term. Condition stable. Prognosis guarded. MMODL / IJN: [id number] /
[2020-07-10] MEDS ORDERED: FUROSEMIDE 40 MG TAB PO SCH (09:00)
== END 2020-07-09 17:35 | DRG 246 ==
LOC: EC 20:44 → 6NMEDSUR 22:50 → OBSVTOIN 07-01 11:27 → 2SICU 07-01 11:28 → 3SCARD 07-04 01:46
PROVIDERS: ADMIT Internal Medicine Sleep Medicine; ATTEND Internal Medicine Sleep Medicine
PROC: 027035Z Dilation of Coronary Artery, One Artery with Two Drug-eluting Intraluminal Devices, Percutaneous Approach (ICD-10-PCS; principal; 2020-07-01 11:35)
PROC: 5A1935Z Respiratory Ventilation, Less than 24 Consecutive Hours (ICD-10-PCS; 2020-07-01 11:35)
PROC: 0BH17EZ Insertion of Endotracheal Airway into Trachea, Via Natural or Artificial Opening (ICD-10-PCS; 2020-07-01 11:35)
DX: I25.110 Atherosclerotic heart disease of native coronary artery with unstable angina pectoris (principal); I50.43 Acute on chronic combined systolic (congestive) and diastolic (congestive) heart failure; J96.21 Acute and chronic respiratory failure with hypoxia; E87.1 Hypo-osmolality and hyponatremia; I13.0 Hypertensive heart and chronic kidney disease with heart failure and stage 1 through stage 4 chronic kidney disease, or unspecified chronic kidney disease; E11.22 Type 2 diabetes mellitus with diabetic chronic kidney disease; E11.43 Type 2 diabetes mellitus with diabetic autonomic (poly)neuropathy; E11.621 Type 2 diabetes mellitus with foot ulcer; E11.628 Type 2 diabetes mellitus with other skin complications; E78.5 Hyperlipidemia, unspecified; Z87.891 Personal history of nicotine dependence; F40.240 Claustrophobia; G47.33 Obstructive sleep apnea (adult) (pediatric); I25.2 Old myocardial infarction; I25.5 Ischemic cardiomyopathy; I44.0 Atrioventricular block, first degree; I44.7 Left bundle-branch block, unspecified; J44.9 Chronic obstructive pulmonary disease, unspecified; K21.9 Gastro-esophageal reflux disease without esophagitis; K31.84 Gastroparesis; Z86.010 Personal history of colon polyps; L08.9 Local infection of the skin and subcutaneous tissue, unspecified; L97.519 Non-pressure chronic ulcer of other part of right foot with unspecified severity; L97.529 Non-pressure chronic ulcer of other part of left foot with unspecified severity; N18.30 Chronic kidney disease, stage 3 unspecified; Z53.20 Procedure and treatment not carried out because of patient's decision for unspecified reasons; Z79.02 Long term (current) use of antithrombotics/antiplatelets; Z79.4 Long term (current) use of insulin; Z79.82 Long term (current) use of aspirin; Z79.899 Other long term (current) drug therapy; Z80.0 Family history of malignant neoplasm of digestive organs; Z82.49 Family history of ischemic heart disease and other diseases of the circulatory system; Z86.718 Personal history of other venous thrombosis and embolism; Z95.5 Presence of coronary angioplasty implant and graft; Z88.1 Allergy status to other antibiotic agents; Z88.0 Allergy status to penicillin; Z88.8 Allergy status to other drugs, medicaments and biological substances; Z99.81 Dependence on supplemental oxygen; I49.3 Ventricular premature depolarization; E66.9 Obesity, unspecified; Z68.36 Body mass index [BMI] 36.0-36.9, adult; Z79.891 Long term (current) use of opiate analgesic; G25.81 Restless legs syndrome; F10.21 Alcohol dependence, in remission; G89.29 Other chronic pain; R10.9 Unspecified abdominal pain; M19.90 Unspecified osteoarthritis, unspecified site; Z87.01 Personal history of pneumonia (recurrent)
CPT/HCPCS: 29700; 36415; 36600; 71045; 71046; 74176; 76937; 80048; 80053; 82805; 83735; 83880; 84300; 84484; 85025; 85347; 85610; 85730; 93005; 93306; 93454; 94002; 94003; 94760; 96361; 96374; 99291

== ENCOUNTER 2020-09-30 11:31 | Inpatient (IN) | payer MEDICARE, OTHER ==
[2020-09-30] MEDS ORDERED: NITROGLYCERIN SL TABS 0.4 MG TAB SUBLINGUAL PRN ×4 (11:48→14:34)
[2020-09-30] MEDS ORDERED: NITROGLYCERIN SL TABS 0.4 MG TAB SUBLINGUAL STA (11:48)
[2020-09-30] MEDS ORDERED: NITROGLYCERIN OINT 1 INCH/GM PACKET TOPICAL STA (11:48)
[2020-09-30] MEDS ORDERED: SODIUM CHLORIDE 0.9% 500 ML 500 ML IV STA (11:48)
[2020-09-30] MEDS ORDERED: ASPIRIN 81 MG PO STA (11:48)
--- NOTE | 2020-09-30 11:52 | ED ---
General Adult HPI - General Chief complaint: Chest Pain Stated complaint: Chest pain/sob Time Seen by Provider: 09/30/20 11:35 Source: patient, RN notes reviewed, old records reviewed Mode of arrival: wheelchair Limitations: no limitations - History of Present Illness Initial comments: This is a 75-year-old female with a past medical history significant for coronary artery disease and multiple stent placements. Patient also is a diabetic and hypertensive. Patient comes in today because 3 hours prior to arrival she started having anterior chest pain shortness of breath. Patient states is consistent with the patient had in the past for heart disease. Patient denies any radiation of the pain. Patient denies any diaphoretic episodes. Patient states she took multiple nitroglycerin with only minimal response. Patient denies any nausea vomiting. Patient denies any abdominal pain. Patient denies any fever chills or cough. Patient denies any additional swelling to the legs or calf tenderness. Patient denies any recent injury or trauma. - Related Data Home Medications Medication Instructions Recorded Confirmed Cholecalciferol [Vitamin D3 (25 1,000 unit PO DAILY 02/26/15 07/01/20 Mcg = 1000 Iu)] Clopidogrel [Plavix] 75 mg PO DAILY 09/05/15 07/01/20 [place]-3 Fatty Acids [[place]-3] 2,000 mg PO DAILY 09/29/18 07/01/20 Dicyclomine [Bentyl] 10 mg PO DAILY 04/16/19 07/01/20 Dulaglutide [Trulicity] 1.5 mg SQ KISER 08/15/19 07/01/20 Insulin Aspart Protam & Aspart 30 unit SQ BID 08/15/19 07/01/20 [NovoLOG MIX 70-30 Flexpen] Metoclopramide [Reglan] 10 mg PO QID PRN 08/15/19 07/01/20 Magnesium Oxide 400 mg PO DAILY 11/02/19 07/01/20 rOPINIRole HCL [Requip] 4 mg PO TID 11/02/19 07/01/20 Atorvastatin [Lipitor] 80 mg PO HS 02/09/20 07/01/20 Ferrous Sulfate [Iron (65 MG 325 mg PO DAILY 02/09/20 07/01/20 Elemental)] metFORMIN HCL 1,000 mg PO BID 02/09/20 07/01/20 HYDROcodone/APAP 7.5-325MG [[place] 1 tab PO QID 04/12/20 07/01/20 7.5-325] Metoprolol Tartrate [Lopressor] 50 mg PO BID 04/12/20 07/01/20 Nitroglycerin Sl Tabs [Nitrostat] 0.4 mg SL Q5M PRN 04/12/20 07/01/20 Sucralfate [Carafate] 1 gm PO QID 04/12/20 07/01/20 Isosorbide Dinitrate 30 mg PO DAILY 07/01/20 07/01/20 lisinopriL [Zestril] 5 mg PO DAILY 07/01/20 07/01/20 Previous Rx's Medication Instructions Recorded Montelukast Sodium [Singulair] 10 mg PO HS #30 tab 10/25/15 Ranolazine [Ranexa] 500 mg PO Q12HR #60 tab.er.12h 11/08/19 Aspirin 81 mg PO DAILY chew 04/16/20 Furosemide [Lasix] 40 mg PO BID@0900,1600 #60 tab 07/04/20 Pantoprazole [Protonix] 40 mg PO AC-BID 30 Days #60 07/08/20 tablet. Spironolactone [Aldactone] 25 mg PO DAILY 90 Days #90 tab 07/08/20 hydrALAZINE HCL [Apresoline] 50 mg PO TID 30 Days #90 tab 07/08/20 polyethylene glycoL 3350 [Miralax] 17 gm PO DAILY 30 Days #30 07/08/20 powd.pack Allergies Allergy/AdvReac Type Severity Reaction Status Date / Time amoxicillin [From Augmentin] Allergy Rash/Hives Verified 09/30/20 11:34 clavulanic acid Allergy Rash/Hives Verified 09/30/20 11:34 [From Augmentin] metronidazole [From Flagyl] Allergy Nausea & Verified 09/30/20 11:34 Vomiting adhesive tape AdvReac bruises,"paper Verified 09/30/20 11:34 tape is ok" albuterol AdvReac Rapid Verified 09/30/20 11:34 Heart Rate stress test injection Allergy Anaphylaxis Uncoded 09/30/20 11:34 Review of Systems ROS Statement: Those systems with pertinent positive or pertinent negative responses have been documented in the HPI. ROS Other: All systems not noted in ROS Statement are negative. 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 failure, cardiomyopathy, NIDDM type II, neuropathy bilateral feet, bilateral diabetic foot ulcers, past cellulitis, pneumonias, past R lung pne with empyema/surgery, gastritis, coliti s/frequent diarrhea, benign colon polyps, renal disease stage III, IRA with no device used d/t severe clausterphobia, home oxygen at 2L/NC at HS, occasional lower leg edema, RLS, Last Myocardial Infarction Date:: 2019 History of Any Multi-Drug Resistant Organisms: None Reported Past Surgical History: Appendectomy, Breast Surgery, Cholecystectomy, Heart Catheterization, Heart Catheterization With Stent Additional Past Surgical History / Comment(s): PCI with stents, R lung thoracotomy/decortication for empyema, bilateral feet/sores debrided, L breast benign bx, colonoscopy/benign polypectomy, EGD Past Anesthesia/Blood Transfusion Reactions: No Reported Reaction Additional Past Anesthesia/Blood Transfusion Reaction / Comment(s): severe claustrophobia Date of Last Stent Placement:: 11/27/19 Past Psychological History: No Psychological Hx Reported Smoking Status: Former smoker Past Alcohol Use History: None Reported Past Drug Use History: None Reported - Past Family History Brother(s) Family Medical History: Cancer Additional Family Medical History / Comment(s): Colon cancer Father Family Medical History: Chest Pain / Angina Additional Family Medical History / Comment(s): Father of a AK at the age of 77yrs. Mother Family Medical History: Chest Pain / Angina Additional Family Medical History / Comment(s): Mother of a AK at the age of 74yrs. General Exam - General Exam Comments Initial Comments: GENERAL: Patient is well-developed and well-nourished. Patient is nontoxic and well- hydrated and is in mild distress. ENT: Neck is soft and supple. No significant lymphadenopathy is noted. Oropharynx is clear. Moist mucous membranes. Neck has full range of motion without eliciting any pain. EYES: The sclera were anicteric and conjunctiva were pink and moist. Extraocular movements were intact and pupils were equal round and reactive to light. Eyelids were unremarkable. PULMONARY: Unlabored respirations. Good breath sounds bilaterally. No audible rales rhonchi or wheezing was noted. CARDIOVASCULAR: There is a regular rate and rhythm without any murmurs gallops or rubs. ABDOMEN: Soft and nontender with normal bowel sounds. SKIN: Skin is clear with no lesions or rashes and otherwise unremarkable. NEUROLOGIC: Patient is alert and oriented x3. Cranial nerves II through XII are grossly intact. Motor and sensory are also intact. Normal speech, volume and content. Symmetrical smile. MUSCULOSKELETAL: Normal extremities with adequate strength and full range of motion. No lower extremity swelling or edema. No calf tenderness. LYMPHATICS: No significant lymphadenopathy is noted PSYCHIATRIC: Normal psychiatric evaluation. Limitations: no limitations Course Vital Signs 09/30/20 11:33 Temperature 98 F Pulse Rate 96 Respiratory 18 Rate Blood Pressure 158/78 O2 Sat by Pulse 96 Oximetry Medical Decision Making - Medical Decision Making EKG shows normal sinus rhythm at [address] interval 298 QRSs 110 QT interval 360 QTC is 462. Patient's EKG shows ST segment depression in leads II, III, and F aVF as well as leads V4 V5 and V6. Patient also has T-wave inversions in 1 and aVL. Patient was given nitroglycerin as well as aspirin in the emergency. Patient was also started on heparin for the significant chest pain appears was experiencing. Chest x-ray shows pulmonary edema. I spoke with cardiology he agreed to come see the patient and decided to take the patient to the [facility]. Dr. Junior did come down and see the patient in the emergency department I spoke with Dr. Grande I wrote admitting orders I consult cardiology and I continued heparin and aspirin and Nitropaste on the floor - Lab Data Result diagrams: 09/30/20 11:58 09/30/20 11:58 Lab Results 09/30/20 09/30/20 09/30/20 Range/Units 11:58 11:58 11:58 WBC 13.1 H (3.8-10.6) k/uL RBC 4.18 (3.80-5.40) m/uL Hgb 10.0 L (11.4-16.0) gm/dL Hct 32.5 L (34.0-46.0) % MCV 77.7 L (80.0-100.0) fL MCH 23.8 L (25.0-35.0) pg MCHC 30.7 L (31.0-37.0) g/dL RDW 18.7 H (11.5-15.5) % Plt Count 351 (150-450) k/uL MPV 7.2 Neutrophils % 70 % Lymphocytes % 21 % Monocytes % 5 % Eosinophils % 2 % Basophils % 0 % Neutrophils # 9.1 H (1.3-7.7) k/uL Lymphocytes # 2.8 (1.0-4.8) k/uL Monocytes # 0.7 (0-1.0) k/uL Eosinophils # 0.2 (0-0.7) k/uL Basophils # 0.1 (0-0.2) k/uL Hypochromasia Moderate Anisocytosis Slight Microcytosis Slight PT 9.5 (9.0-12.0) sec INR 0.9 (<1.2) APTT 20.0 L (22.0-30.0) sec Sodium 136 L (137-145) mmol/L Potassium 5.2 H (3.5-5.1) mmol/L Chloride 103 (98-107) mmol/L Carbon Dioxide 21 L (22-30) mmol/L Anion Gap 12 mmol/L BUN 37 H (7-17) mg/dL Creatinine 1.30 H (0.52-1.04) mg/dL Est GFR (CKD-EPI)AfAm 47 (>60 ml/min/1.73 sqM) Est GFR (CKD-EPI)NonAf 41 (>60 ml/min/1.73 sqM) Glucose 205 H (74-99) mg/dL POC Glucose (mg/dL) (75-99) mg/dL POC Glu [employer] Pilot ID Calcium 9.5 (8.4-10.2) mg/dL Magnesium 1.6 (1.6-2.3) mg/dL Total Bilirubin 0.4 (0.2-1.3) mg/dL AST 23 (14-36) U/L ALT 21 (4-34) U/L Alkaline Phosphatase 111 (38-126) U/L Troponin I (0.000-0.034) ng/mL NT-Pro-B Natriuret Pep pg/mL Total Protein 6.9 (6.3-8.2) g/dL Albumin 3.9 (3.5-5.0) g/dL 09/30/20 09/30/20 09/30/20 Range/Units 11:58 11:58 12:12 WBC (3.8-10.6) k/uL RBC (3.80-5.40) m/uL Hgb (11.4-16.0) gm/dL Hct (34.0-46.0) % MCV (80.0-100.0) fL MCH (25.0-35.0) pg MCHC (31.0-37.0) g/dL RDW (11.5-15.5) % Plt Count (150-450) k/uL MPV Neutrophils % % Lymphocytes % % Monocytes % % Eosinophils % % Basophils % % Neutrophils # (1.3-7.7) k/uL Lymphocytes # (1.0-4.8) k/uL Monocytes # (0-1.0) k/uL Eosinophils # (0-0.7) k/uL Basophils # (0-0.2) k/uL Hypochromasia Anisocytosis Microcytosis PT (9.0-12.0) sec INR (<1.2) APTT (22.0-30.0) sec Sodium (137-145) mmol/L Potassium (3.5-5.1) mmol/L Chloride (98-107) mmol/L Carbon Dioxide (22-30) mmol/L Anion Gap mmol/L BUN (7-17) mg/dL Creatinine (0.52-1.04) mg/dL Est GFR (CKD-EPI)AfAm (>60 ml/min/1.73 sqM) Est GFR (CKD-EPI)NonAf (>60 ml/min/1.73 sqM) Glucose (74-99) mg/dL POC Glucose (mg/dL) 241 H (75-99) mg/dL POC Glu [employer]ile Control Pilot ID Laya, Roxie Calcium (8.4-10.2) mg/dL Magnesium (1.6-2.3) mg/dL Total Bilirubin (0.2-1.3) mg/dL AST (14-36) U/L ALT (4-34) U/L Alkaline Phosphatase (38-126) U/L Troponin I 0.012 (0.000-0.034) ng/mL NT-Pro-B Natriuret Pep 2330 pg/mL Total Protein (6.3-8.2) g/dL Albumin (3.5-5.0) g/dL Critical Care Time Critical Care Time: Yes Total Critical Care Time: 35 Disposition Clinical Impression: Unstable angina Disposition: ADMITTED IP TO THIS HOSP Referrals: Medardo Grande MD [Primary Care Provider] - 1-2 days Time of Disposition: 12:48
[2020-09-30 12:06] LABS: Anisocytosis Slight; Basophils # (A) 0.1 k/uL (0-0.2); Basophils % (A) 0 %; Eosinophils # (A) 0.2 k/uL (0-0.7); Eosinophils % (A) 2 %; HCT 32.5 % (34.0-46.0); Hypochromasia Moderate; Lymphocytes # (A) 2.8 k/uL (1.0-4.8); Lymphocytes % (A) 21 %; MCH 23.8 pg (25.0-35.0); MCHC 30.7 g/dL (31.0-37.0); MCV 77.7 fL (80.0-100.0); Mean Platelet Volume 7.2; Microcytosis Slight; Monocytes # (A) 0.7 k/uL (0-1.0); Monocytes % (A) 5 %; Neutrophils # (A) 9.1 k/uL (1.3-7.7); Neutrophils % (A) 70 %; Platelet Count 351 k/uL (150-450); RBC 4.18 m/uL (3.80-5.40); RDW 18.7 % (11.5-15.5); WBC 13.1 k/uL (3.8-10.6)
[2020-09-30 12:13] LABS: Glucose,Whole Blood 241 mg/dL (75-99)
[2020-09-30 12:24] LABS: Albumin 3.9 g/dL (3.5-5.0); Calcium 9.5 mg/dL (8.4-10.2); Magnesium 1.6 mg/dL (1.6-2.3); Potassium 5.2 mmol/L (3.5-5.1); Total Bilirubin 0.4 mg/dL (0.2-1.3); Total Protein 6.9 g/dL (6.3-8.2)
[2020-09-30 12:25] LABS: INR 0.9 (<1.2); Prothrombin Time 9.5 sec (9.0-12.0)
[2020-09-30] MEDS ORDERED: HEPARIN SODIUM 1,000 UN/ML (10ML VL) IV PRN (12:32)
[2020-09-30] MEDS ORDERED: HEPARIN SODIUM 1,000 UN/ML (10ML VL) IV ONE (12:32)
[2020-09-30] MEDS ORDERED: SODIUM CHLORIDE 0.9% 1,000 ML in EMPTY BAG 1 BAG IV ONE (12:45)
[2020-09-30] MEDS ORDERED: ALPRAZolam 0.25 MG TAB PO PRN (12:45)
[2020-09-30] MEDS ORDERED: NITROGLYCERIN OINT 1 INCH/GM PACKET TOPICAL SCH ×2 (12:45→18:00)
[2020-09-30] MEDS ORDERED: HEPARIN SOD,PORK IN 0.45% NACL 25,000 UNIT in 0.45% NACL 1 250ML.BAG IV SCH (12:45)
[2020-09-30] MEDS ORDERED: ASPIRIN 325 MG TAB PO STA (12:45)
[2020-09-30] MEDS ORDERED: ALPRAZolam 0.5 MG TAB PO PRN (12:45)
[2020-09-30] MEDS ORDERED: ATORVASTATIN 80 MG TAB PO STA (12:45)
[2020-09-30] MEDS: HYDROmorphone 0.5 MG/0.5 ML SYRINGE IVP PRN ×3 (12:52→17:35)
--- NOTE | 2020-09-30 12:55 | XR ---
EXAMINATION TYPE: XR chest 2V DATE OF EXAM: 09/30/2020 COMPARISON: Chest x-ray July 06, 2020 HISTORY: Chest pain and shortness of breath TECHNIQUE: Frontal and lateral views of the chest are obtained. FINDINGS: There is chronic parenchymal change and increased interstitial prominence bilaterally. Tin y bilateral pleural effusions remain present. The cardiac silhouette size remains enlarged. The oss eous structures are intact. IMPRESSION: Correlate for CHF exacerbation as there is cardiomegaly with tiny bilateral pleural effu sions and mild interstitial edema on background chronic change.
[2020-09-30] MEDS ORDERED: LIDOCAINE 1% INJ 10MG/ML (20 ML MDV) ONE ×2 (13:28→13:45)
[2020-09-30] MEDS ORDERED: VERAPAMIL 2.5 MG/ML 2 ML AMP ONE (13:28)
[2020-09-30] MEDS ORDERED: MORPHINE SULFATE 4 MG/ML SYRINGE ONE ×2 (13:33→17:46)
[2020-09-30] MEDS ORDERED: MORPHINE SULFATE 4 MG/ML SYRINGE IVP ONE (13:37)
[2020-09-30] MEDS ORDERED: IV FLUID CONTINUATION 400 ML IV ONE (13:42)
[2020-09-30] MEDS ORDERED: ROCURONIUM 10 MG/ML (5 ML VIAL) IV ONE (13:45)
[2020-09-30] MEDS ORDERED: fentaNYL (PF) 50 MCG/ML 2 ML AMP ONE (13:45)
[2020-09-30] MEDS ORDERED: SUCCINYLCHOLINE CHLORIDE 100 MG/5 ML SYR IV ONE (13:45)
[2020-09-30] MEDS ORDERED: MIDAZOLAM 2 MG/2 ML VIAL ONE (13:45)
[2020-09-30] MEDS ORDERED: GLYCOPYRROLATE 0.2 MG/ML 2 ML VIAL ONE (13:45)
[2020-09-30] MEDS ORDERED: NEOSTIGMINE 1 MG/ML 10 ML VIAL ONE (13:45)
[2020-09-30] MEDS ORDERED: ETOMIDATE 2 MG/ML 10 ML VIAL ONE (13:45)
--- NOTE | 2020-09-30 13:56 | P.CRDCN ---
History of Present Illness Consult date: 09/30/20 History of present illness: HISTORY OF PRESENT ILLNESS: This is a 75 year old female with a past medical history significant for coronary artery disease, COPD, diabetes mellitus, DVT, hypertension, and hyperlipidemia. Patient follows in the office with Dr. Mccullough. We have been asked to see the patient in consultation for chest pain. Patient examined at the bedside in the emergency room. Patient states she has been having chest pain over the past 3-4 days intermittently. She states this morning the pain was the worst that it has been and was not going away. She states the pain was in the middle of her chest and felt like a tight squeezing sensation. She denies radiation of the pain. She reports diaphoresis. Patient reports shortness of breath as well. She does wear home o2 at night. She states she took nitro this morning with minimal relief in her pain. EKG reveals sinus mechanism with ST depression in inferior and lateral leads. Chest xray correlate for CHF exacerbation as there is cardiomegaly with tiny bilateral pleural effusions and mild interstitial edema on background chronic changes. Laboratory data: WBC 13.1. Hemoglobin 10.0. Platelet count 351. Sodium 136. Potassium 5.2. BUN 37. Creatinine 1.30. troponin negative 1. Current home cardiac medications include lisinopril 20 mg twice a day, hydralazine 25 mg twice a day, Aldactone 25 mg daily, Ranexa 500 mg twice a day, metoprolol titrate 50 mg twice a day, isosorbide dinitrate 30mg daily, Lasix 40 mg twice a day, Plavix 75 mg daily, Lipitor 80 mg daily, and aspirin 81 mg daily Most recent echocardiogram obtained June 2020 revealed ejection fraction 35- 40% Cardiac catheterization history: 07/01/[address] Mccullough. Patient underwent stenting to the circumflex. Cath also revealed patent stent to the LAD. Total occlusion of RCA which is chronic. REVIEW OF SYSTEMS: At the time of my exam: CONSTITUTIONAL: Denies fever or chills. HEENT: Denies blurred vision, vision changes, or eye pain. Denies hemoptysis CARDIOVASCULAR: Reports chest pain. Denies palpitations RESPIRATORY: Reports shortness of breath. GASTROINTESTINAL: Denies abdominal pain. Denies nausea or vomiting. HEMATOLOGIC: Denies bleeding disorders. GENITOURINARY: Denies any blood in urine. SKIN: Denies pruitis. Denies rash. PHYSICAL EXAM: VITAL SIGNS: Reviewed. GENERAL: Well-developed in no acute distress. HEENT: Head is normocephalic. Pupils are equal, round. Sclerae anicteric. Mucous membranes of the mouth are moist. Neck supple. No JVD or thyromegaly LUNGS: Respirations even and unlabored. Lungs diminished bilaterally. HEART: Regular rate and rhythm. S1 and S2 heard. ABDOMEN: Soft. Nondistended. Nontender. EXTREMITIES: Normal range of motion. No clubbing or cyanosis. Peripheral pulses intact. Trace bilateral lower extremity edema. Cast in place to RLE which patient states is due to nonhealing ulcer NEUROLOGIC: Awake and alert. Oriented x 3. ASSESSMENT: Unstable angina Coronary artery disease, s/p recent PCI to circumflex and previous PCI to LAD Chronic systolic heart failure, EF 35-40% Hypertension Hyperlipidemia COPD Diabetes mellitus Nonhealing diabetic ulcer of right lower extremity PLAN: Resume home cardiac medications Begin IV heparin Continue Nitro paste Patient to undergo cardiac catheterization today with Dr. Caro Further recommendations pending patient course Nurse practitioner note has been reviewed by physician. Signing provider agrees with the documented findings, assessment, and plan of care. Past Medical History Past Medical History: Asthma, Coronary Artery Disease (CAD), Heart Failure, COPD, Diabetes Mellitus, Deep Vein Thrombosis (DVT), GERD/Reflux, Hyperlipidemia, Hypertension, Myocardial Infarction (DE), Osteoarthritis (OA), Pneumonia, Renal Disease, Skin Disorder, Sleep Apnea/CPAP/BIPAP Additional Past Medical History / Comment(s): Other hx: MIs with last DE 11/2019 with cardiogenic shock/pulmonary edema/respiratory failure, cardiomyopathy, NIDDM type II, neuropathy bilateral feet, bilateral diabetic foot ulcers, past cellulitis, pneumonias, past R lung pne with empyema/surgery, gastritis, colitis/frequent diarrhea, benign colon polyps, renal disease stage III, IRA with no device used d/t severe clausterphobia, home oxygen at 2L/NC at HS, occasional lower leg edema, RLS, Last Myocardial Infarction Date:: 2019 History of Any Multi-Drug Resistant Organisms: None Reported Past Surgical History: Appendectomy, Breast Surgery, Cholecystectomy, Heart Catheterization, Heart Catheterization With Stent Additional Past Surgical History / Comment(s): PCI with stents, R lung thoracotomy/decortication for empyema, bilateral feet/sores debrided, L breast benign bx, colonoscopy/benign polypectomy, EGD Past Anesthesia/Blood Transfusion Reactions: No Reported Reaction Additional Past Anesthesia/Blood Transfusion Reaction / Comment(s): severe claustrophobia Date of Last Stent Placement:: 11/27/19 Past Psychological History: No Psychological Hx Reported Smoking Status: Former smoker Past Alcohol Use History: None Reported Past Drug Use History: None Reported - Past Family History Brother(s) Family Medical History: Cancer Additional Family Medical History / Comment(s): Colon cancer Father Family Medical History: Chest Pain / Angina Additional Family Medical History / Comment(s): Father of a DE at the age of 77yrs. Mother Family Medical History: Chest Pain / Angina Additional Family Medical History / Comment(s): Mother of a DE at the age of 74yrs. Medications and Allergies Home Medications Medication Instructions Recorded Confirmed Type Cholecalciferol [Vitamin D3 (25 1,000 unit PO DAILY 02/26/15 09/30/20 History Mcg = 1000 Iu)] Clopidogrel [Plavix] 75 mg PO DAILY 09/05/15 09/30/20 History Montelukast Sodium [Singulair] 10 mg PO HS #30 tab 10/25/15 09/30/20 Rx [place]-3 Fatty Acids [[place]-3] 2,000 mg PO DAILY 09/29/18 09/30/20 History Dicyclomine [Bentyl] 10 mg PO DAILY 04/16/19 09/30/20 History Dulaglutide [Trulicity] 1.5 mg SQ KISER 08/15/19 09/30/20 History Insulin Aspart Protam & Aspart 30 unit SQ BID 08/15/19 09/30/20 History [NovoLOG MIX 70-30 Flexpen] Metoclopramide [Reglan] 10 mg PO QID PRN 08/15/19 09/30/20 History Magnesium Oxide 400 mg PO DAILY 11/02/19 09/30/20 History Ranolazine [Ranexa] 500 mg PO Q12HR #60 tab.er.12h 11/08/19 09/30/20 Rx Atorvastatin [Lipitor] 80 mg PO HS 02/09/20 09/30/20 History Ferrous Sulfate [Iron (65 MG 325 mg PO DAILY 02/09/20 09/30/20 History Elemental)] metFORMIN HCL 1,000 mg PO BID 02/09/20 09/30/20 History HYDROcodone/APAP 7.5-325MG [[place] 1 tab PO Q6H 04/12/20 09/30/20 History 7.5-325] Metoprolol Tartrate [Lopressor] 50 mg PO BID 04/12/20 09/30/20 History Nitroglycerin Sl Tabs [Nitrostat] 0.4 mg SL Q5M PRN 04/12/20 09/30/20 History Sucralfate [Carafate] 1 gm PO QID 04/12/20 09/30/20 History Aspirin 81 mg PO DAILY chew 04/16/20 09/30/20 Rx Isosorbide Dinitrate 30 mg PO DAILY 07/01/20 09/30/20 History Pantoprazole [Protonix] 40 mg PO AC-BID 30 Days #60 07/08/20 09/30/20 Rx tablet. Spironolactone [Aldactone] 25 mg PO DAILY 90 Days #90 tab 07/08/20 09/30/20 Rx polyethylene glycoL 3350 [Miralax] 17 gm PO DAILY 30 Days #30 07/08/20 09/30/20 Rx powd.pack Budesonide/Formoterol Fumarate 2 puff INHALATION RT-BID 09/30/20 09/30/20 Histo ry [Symbicort 160-4.5 Mcg Inhaler] Furosemide [Lasix] 40 mg PO BID 09/30/20 09/30/20 History Loperamide [Imodium] 2 mg PO Q6H PRN 09/30/20 09/30/20 History hydrALAZINE HCL [Apresoline] 25 mg PO BID 09/30/20 09/30/20 History lisinopriL [Zestril] 20 mg PO BID 09/30/20 09/30/20 History Allergies Allergy/AdvReac Type Severity Reaction Status Date / Time amoxicillin [From Augmentin] Allergy Rash/Hives Verified 09/30/20 13:10 clavulanic acid Allergy Rash/Hives Verified 09/30/20 13:10 [From Augmentin] metronidazole [From Flagyl] Allergy Nausea & Verified 09/30/20 13:10 Vomiting adhesive tape AdvReac bruises,"paper Verified 09/30/20 13:10 tape is ok" albuterol AdvReac Rapid Verified 09/30/20 13:10 Heart Rate stress test injection Allergy Anaphylaxis Uncoded 09/30/20 11:34 Physical Exam Vitals: Vital Signs Temp Pulse Resp BP Pulse Ox 09/30/20 13:13 98.0 F 115 H 18 176/68 97 09/30/20 11:33 98 F 96 18 158/78 96 Intake and Output 09/29/20 09/30/20 09/30/20 22:59 06:59 14:59 Other: Weight 112.037 kg Results 09/30/20 11:58 09/30/20 11:58 Cardiac Enzymes 09/30/20 09/30/20 Range/Units 11:58 11:58 AST 23 (14-36) U/L Troponin I 0.012 (0.000-0.034) ng/mL Coagulation 09/30/20 Range/Units 11:58 PT 9.5 (9.0-12.0) sec APTT 20.0 L (22.0-30.0) sec CBC 09/30/20 Range/Units 11:58 WBC 13.1 H (3.8-10.6) k/uL RBC 4.18 (3.80-5.40) m/uL Hgb 10.0 L (11.4-16.0) gm/dL Hct 32.5 L (34.0-46.0) % Plt Count 351 (150-450) k/uL Comprehensive Metabolic Panel 09/30/20 Range/Units 11:58 Sodium 136 L (137-145) mmol/L Potassium 5.2 H (3.5-5.1) mmol/L Chloride 103 (98-107) mmol/L Carbon Dioxide 21 L (22-30) mmol/L BUN 37 H (7-17) mg/dL Creatinine 1.30 H (0.52-1.04) mg/dL Glucose 205 H (74-99) mg/dL Calcium 9.5 (8.4-10.2) mg/dL AST 23 (14-36) U/L ALT 21 (4-34) U/L Alkaline Phosphatase 111 (38-126) U/L Total Protein 6.9 (6.3-8.2) g/dL Albumin 3.9 (3.5-5.0) g/dL Current Medications Generic Name Dose Route Start Last Admin Trade Name Freq PRN Reason Stop Dose Admin Alprazolam 0.25 mg 09/30/20 12:45 Alprazolam 0.25 Mg Tab PO Q6HR PRN Mild Anxiety Alprazolam 0.5 mg 09/30/20 12:45 Alprazolam 0.5 Mg Tab PO Q6HR PRN Moderate Anxiety Aspirin 81 mg 10/01/20 09:00 Aspirin 81 Mg PO DAILY [facility] Atorvastatin Calcium 80 mg 10/01/20 21:00 Atorvastatin 80 Mg Tab PO HS [facility] Clopidogrel Bisulfate 75 mg 10/01/20 09:00 Clopidogrel 75 Mg Tab PO DAILY [facility] Furosemide 40 mg 09/30/20 21:00 Furosemide 40 Mg Tab PO BID [facility] Heparin Sodium (Porcine) 0 unit 09/30/20 12:32 Heparin Sodium 1,000 Un/Ml (10ml Vl) IV PER PROTOCOL PRN Low PTT Protocol Hydralazine HCl 25 mg 09/30/20 21:00 Hydralazine Hcl 25 Mg Tab PO BID [facility] Hydromorphone HCl 0.5 mg 09/30/20 12:38 09/30/20 13:01 Hydromorphone 0.5 Mg/0.5 Ml Syringe IVP 0.5 mg Q3HR PRN Administration Pain Heparin Sodium/Sodium Chloride 250 mls @ 10 mls/hr 09/30/20 12:45 09/30/20 13:00 25,000 unit/ Sodium Chloride IV 8.926 units/kg/hr .Q24H ANDREW 10 mls/hr Administration Protocol 8.926 UNITS/KG/HR Heparin Sodium (Porcine) 10, 1,001 mls @ 999 mls/hr 10/01/20 07:00 000 unit/ Sodium Chloride IRRIGATION 10/01/20 23:00 ONCE PRN INTRA-OP Heparin Sodium (Porcine) 2,500 250.5 mls @ 250 mls/hr 10/01/20 07:00 unit/ Sodium Chloride IRRIGATION 10/01/20 23:00 ONCE PRN INTRA-OP Sodium Chloride 1,000 ml/ IV 1,000 mls @ 112.037 mls/hr 09/30/20 12:45 Solution IV 09/30/20 21:40 .Q8H56M ONE 1 ML/KG/HR Lisinopril 20 mg 09/30/20 21:00 Lisinopril 20 Mg Tab PO BID ANDREW Metoprolol Tartrate 50 mg 09/30/20 21:00 Metoprolol Tartrate 50 Mg Tab PO BID ANDREW Nitroglycerin 0.4 mg 09/30/20 11:48 Nitroglycerin Sl Tabs 0.4 Mg Tab SUBLINGUAL Q5M PRN Chest Pain Nitroglycerin 0.5 inch 09/30/20 12:45 09/30/20 13:00 Nitroglycerin Oint 1 Inch/Gm Packet TOPICAL Not Given Q8H ANDREW Nitroglycerin 0.4 mg 09/30/20 12:45 Nitroglycerin Sl Tabs 0.4 Mg Tab SUBLINGUAL Q5M PRN Chest Pain Nitroglycerin 0.4 mg 09/30/20 12:50 Nitroglycerin Sl Tabs 0.4 Mg Tab SUBLINGUAL Q5M PRN Chest Pain Nitroglycerin 1 inch 09/30/20 18:00 Nitroglycerin Oint 1 Inch/Gm Packet TOPICAL Q6HR ANDREW Ranolazine 500 mg 09/30/20 21:00 Ranolazine 500 Mg Tab.Er.12h PO Q12HR ANDREW Spironolactone 25 mg 10/01/20 09:00 Spironolactone 25 Mg Tab PO DAILY ANDREW Intake and Output 09/29/20 09/30/20 09/30/20 22:59 06:59 14:59 Other: Weight 112.037 kg Patient Weight 10/01/20 06:59 Weight 112.037 kg 09/30/20 11:58 09/30/20 11:58
[2020-09-30] MEDS ORDERED: LIDOCAINE 1% INJ 10MG/ML (10 ML MDV) SQ ONE (14:16)
[2020-09-30] MEDS ORDERED: IOPAMIDOL-300 100ML BTL INJ ONE (14:31)
[2020-09-30] MEDS ORDERED: RX INFO: IV CONTRAST WAS GIVEN 1 EACH MISC MISCELLANE PRN (14:34)
[2020-09-30] MEDS ORDERED: ATROPINE SULFATE 0.1 MG/ML 10ML SYRINGE IV PRN (14:34)
[2020-09-30] MEDS ORDERED: MAG HYDROX/AL HYDROX/SIMETH 30 ML CUP PO PRN (14:34)
[2020-09-30] MEDS ORDERED: ZOLPIDEM 5 MG TAB PO PRN (14:34)
[2020-09-30] MEDS ORDERED: SODIUM CHLORIDE 0.9% 1,000 ML IV SCH (14:45)
[2020-09-30] MEDS ORDERED: CLOPIDOGREL 75 MG TAB PO STA (14:58)
[2020-09-30] MEDS ORDERED: SODIUM CHLORIDE 0.9% 500 ML 500 ML IV ONE (15:23)
[2020-09-30] MEDS ORDERED: NITROGLYCERIN-D5W PMX 50 MG in DEXTROSE/WATER 1 250ML.BAG IV SCH (17:00)
[2020-09-30] MEDS: FUROSEMIDE 10 MG/ML 4 ML VIAL IV SCH (17:04)
[2020-09-30 17:30] LABS: Glucose,Whole Blood 202 mg/dL (75-99)
[2020-09-30] MEDS ORDERED: hydrALAZINE HCL 20 MG/ML 1 ML VIAL IVP STA (17:33)
[2020-09-30] MEDS: IPRATROPIUM-ALBUTEROL 3 ML NEB INHALATION SCH (17:37)
[2020-09-30] MEDS ORDERED: MORPHINE SULFATE 2 MG/ML SYRINGE IVP STA (17:44)
[2020-09-30] MEDS ORDERED: FUROSEMIDE 10 MG/ML 4 ML VIAL IV STA (17:45)
[2020-09-30] MEDS ORDERED: propofoL 100 ML IV ONE (18:35)
[2020-09-30] MEDS ORDERED: NALOXONE 0.4 MG/ML 1 ML VIAL IV PRN (18:51)
[2020-09-30 19:01] LABS: Glucose,Whole Blood 251 mg/dL (75-99)
[2020-09-30 20:09] LABS: ABG Base Excess -1.2 mmol/L; ABG HCO3 26 mmol/L (21-25); ABG Oxygen Saturation 98.8 % (94-97); ABG PCO2 55 mmHg (35-45); ABG PH 7.28 (7.35-7.45); ABG PO2 267 mmHg (83-108); ABG TCO2 27 mmol/L (19-24); Allen Test Performed? Yes
--- NOTE | 2020-09-30 20:25 | XR ---
EXAMINATION TYPE: XR chest 1V portable DATE OF EXAM: 09/30/2020 COMPARISON: Chest x-ray 09/30/2020 at earlier time HISTORY: Intubated TECHNIQUE: Single frontal view of the chest is obtained. FINDINGS: Endotracheal tube and NG tube have been placed in the interval and are overlying appropria te positions. No other significant interval change. IMPRESSION: No evident complication status post intubation.
--- NOTE | 2020-09-30 20:55 | CC ---
CARDIAC CATHETERIZATION REPORT DATE OF SERVICE: 09/30/2020 PERFORMING PHYSICIAN: Freddie Caro M.D. PROCEDURES PERFORMED: 1. Selective left coronary angiogram. 2. Successful balloon angioplasty of the ostial left circumflex using a 3.0 x 12 mm balloon with excellent angiographic results and reduction of stenosis from 99% to 0%. 3. Left heart catheterization. 4. Selective right common femoral artery angiogram. INDICATION: This is a pleasant 75-year-old female patient with coronary artery disease and prior stenting of the LAD and left circumflex and known chronic total occlusion of the RCA who presented to the hospital with chest discomfort, and she continues to have ongoing chest discomfort. APPROACH: Right common femoral artery. COMPLICATIONS: None. LEVEL OF SEDATION: Moderate, with sedation length of 17 minutes. PROCEDURE DESCRIPTION: After obtaining informed consent, the patient was brought to the cardiac cathodic protection technician. The patient requested to be intubated because she was in heart failure and she was in respiratory distress. The right common femoral artery was cannulated using micropuncture technique under ultrasound guidance, and the micropuncture wire passed easily. Then I placed a 6-Mongolian sheath. Anticoagulation was initiated using heparin. The patient was given a total of 10,000 units of heparin IV. Selective left coronary angiogram was performed using JL4 guiding catheter. I did not select the right coronary artery because it was known to be chronically occluded. After that I did selective left coronary angiogram which revealed critical disease involving the ostial left circumflex which is in-stent. After that I did intervene on the left circumflex. Please see separate paragraph for that. SELECTIVE CORONARY ANGIOGRAM: 1. The left main has mild disease only. It bifurcates into LCX and LAD. 2. The LCX is a large-caliber vessel. It is a codominant vessel. The ostial circumflex is stented with critical in-stent restenosis. 3. The LAD. The proximal LAD is stented and the stent is patent. PERCUTANEOUS CORONARY INTERVENTION OF THE LEFT CIRCUMFLEX: Anticoagulation was achieved with heparin. Continuous ACT was initiated. After that, I wired the left circumflex using a BMW wire and I wired the LAD using a run-through wire. After that PTCA ballooning was performed using 3.0 x 12 mm balloon with the following angiogram showing excellent angiographic results. The procedure was completed. HEMODYNAMICS: The LVEDP was about 20 mmHg without significant gradient across the aortic valve. CONCLUSION: 1. Critical in-stent restenosis of the left circumflex coronary artery. I did successful balloon angioplasty of the left circumflex without stenting with good angiographic results. 2. Patent stent in the proximal left anterior descending artery. 3. Elevated filling pressure with EDP of 20 mmHg. POST-PROCEDURE MANAGEMENT: 1. Maximize medical treatment. 2. Aggressive cholesterol control. 3. Follow up with the patient. MMODL / IJN: [id number] /
[2020-09-30] MEDS ORDERED: NOREPINEPHRIN 4 MG-0.9% NS PMX 4 MG/250 ML ML IV ONE (20:58)
[2020-09-30] MEDS ORDERED: FUROSEMIDE 10 MG/ML 10 ML VIAL IV SCH (21:00)
[2020-09-30] MEDS ORDERED: FUROSEMIDE 40 MG TAB PO SCH (21:00)
[2020-09-30] MEDS: hydrALAZINE HCL 25 MG TAB PO SCH (21:19)
[2020-09-30] MEDS: lisinopriL 20 MG TAB PO SCH (21:19)
[2020-09-30] MEDS: METOPROLOL TARTRATE 50 MG TAB PO SCH (21:20)
[2020-09-30] MEDS: RANOLAZINE 500 MG TAB.ER.12H PO SCH (21:32)
[2020-09-30] MEDS: NOREPINEPHRINE 4 MG in SODIUM CHLORIDE 0.9% 250 ML IV SCH (21:32)
[2020-09-30] MEDS: CHLORHEXIDINE GLUCONATE 15 ML CUP MUCOUS MEM SCH (21:33)
--- NOTE | 2020-09-30 23:30 | HP ---
HISTORY AND PHYSICAL DATE OF SERVICE: 09/30/2020 HISTORY OF PRESENT ILLNESS: 75-year-old white female past medical history coronary artery disease, COPD, diabetes mellitus, DVT, hypertension, dyslipidemia, diabetic wound infections with the right leg in a cast due to chronic ulcers in bilateral feet that are healing on the dorsum of the big toe, status post stent to the RCA with balloon angioplasty today. She feels shortness of breath. She was given a dose of Lasix post catheterization with stenting, admitting to the ICU. Possibly will have to be intubated. Examined her in the step- down ICU. Chest x-ray shows CHF, bilateral interstitial edema. White count 13.1, hemoglobin 11, platelets 351. Sodium 136, potassium 5.2, BUN 37, creatinine 1.3. HOME MEDICATIONS: Home medications are: Lisinopril 20 mg b.i.d., hydralazine 25 b.i.d., Aldactone 25 daily, Ranexa 500 b.i.d., metoprolol tartrate 50 b.i.d., isosorbide dinitrate 30 mg daily, Lasix 40 b.i.d., Plavix 75 mg daily, Lipitor 80 daily, aspirin 81 mg daily. Insulin per scale. She has ejection fraction 35 to 40% prior to come to the hospital. She had a stent in the circumflex 07/01/2020 and a stent to the LAD, total occlusion RCA, which is chronic. PAST SURGICAL HISTORY: Include appendectomy, breast surgery, cholecystectomy, heart catheterizations with stents, multiple debridements in the wound clinic for ulcers of the legs. FAMILY HISTORY: Mother with angina. ALLERGIES: TO AUGMENTIN, FLAGYL, ADHESIVE TAPE, ALBUTEROL AND STRESS TEST INJECTION. REVIEW OF SYSTEMS: Fourteen-point review of systems: Shortness of breath at rest, gasping for air. At this time, Lasix and Dilaudid are being given. Updrafts will be given and transferred to the ICU. PHYSICAL EXAMINATION: Vital signs are reviewed. Cardiovascular S1, S2. LUNGS: Rales and rhonchi and wheeze x4. GI is soft, distended. No mass, organomegaly. Extremities 2+ edema. Right leg in cast lower leg. Left leg great toe, dorsum of the toe has a bandage over it in the dorsum. Neurologic: Cranial nerves are intact. Psych: Fair mood and affect. ASSESSMENT: 1. Unstable angina status post balloon angioplasty to the circumflex artery. 2. History of multiple stents. 3. Chronic systolic heart failure. 4. Chronic obstructive pulmonary disease. 5. Insulin-dependent diabetes mellitus. 6. Hypertension. 7. Dyslipidemia. 8. Nonhealing diabetic ulcers, bilateral legs. 9. Heparin. 10.Nitro paste. 11.ICU admission. 12.Give updrafts. 13.Continue Accu-Cheks. 14.Prognosis extremely guarded. PROGNOSIS: Extremely guarded. MMODL / IJN: [id number] /
[2020-09-30 23:45] LABS: Glucose,Whole Blood 178 mg/dL (75-99)
[2020-10-01] MEDS: INSULIN ASPART (NovoLOG) 100 UNIT/ML VIAL SQ SCH ×4 (00:13→18:51)
[2020-10-01] MEDS: HYDROmorphone 0.5 MG/0.5 ML SYRINGE IVP PRN ×2 (01:50→06:29)
[2020-10-01 04:45] LABS: Anisocytosis Slight; Basophils % (A) 0 %; Eosinophils # (A) 0.2 k/uL (0-0.7); Eosinophils % (A) 2 %; HCT 28.4 % (34.0-46.0); HGB 9.3 gm/dL (11.4-16.0); Hypochromasia Slight; Lymphocytes # (A) 2.4 k/uL (1.0-4.8); Lymphocytes % (A) 18 %; MCHC 32.9 g/dL (31.0-37.0); MCV 76.1 fL (80.0-100.0); Mean Platelet Volume 7.2; Microcytosis Moderate; Monocytes % (A) 7 %; Neutrophils # (A) 9.7 k/uL (1.3-7.7); Neutrophils % (A) 72 %; Platelet Count 323 k/uL (150-450); RBC 3.72 m/uL (3.80-5.40); RDW 18.7 % (11.5-15.5); WBC 13.4 k/uL (3.8-10.6)
[2020-10-01 04:50] LABS: ABG Base Excess 0.1 mmol/L; ABG HCO3 26 mmol/L (21-25); ABG Oxygen Saturation 98.6 % (94-97); ABG PCO2 44 mmHg (35-45); ABG PH 7.37 (7.35-7.45); ABG PO2 144 mmHg (83-108); ABG TCO2 27 mmol/L (19-24); Allen Test Performed? Yes
[2020-10-01 04:54] LABS: Calcium 8.9 mg/dL (8.4-10.2); Magnesium 1.6 mg/dL (1.6-2.3); Phosphorus 4.4 mg/dL (2.5-4.5); Potassium 4.3 mmol/L (3.5-5.1)
[2020-10-01 05:22] LABS: INR 0.9 (<1.2); Prothrombin Time 10.2 sec (9.0-12.0)
[2020-10-01] MEDS: NOREPINEPHRINE 4 MG in SODIUM CHLORIDE 0.9% 250 ML IV SCH ×3 (05:33→21:52)
[2020-10-01] MEDS: MAGNESIUM SULFATE-D5W PMX 1 GM in DEXTROSE/WATER 1 100ML.BAG IVPB SCH ×2 (05:43→06:18)
[2020-10-01 05:59] LABS: Glucose,Whole Blood 147 mg/dL (75-99)
[2020-10-01] MEDS: FUROSEMIDE 10 MG/ML 4 ML VIAL IV SCH ×2 (06:17→18:51)
[2020-10-01] MEDS ORDERED: HEPARIN SODIUM,PORCINE 10,000 UNIT in SODIUM CHLORIDE 0.9% 1,000 ML IRRIGATION PRN (07:00)
[2020-10-01] MEDS ORDERED: HEPARIN SODIUM,PORCINE 2,500 UNIT in SODIUM CHLORIDE 0.9% 250 ML IRRIGATION PRN (07:00)
[2020-10-01] MEDS: IPRATROPIUM-ALBUTEROL 3 ML NEB INHALATION SCH ×4 (07:07→20:34)
[2020-10-01] MEDS ORDERED: ASPIRIN 325 MG TAB PO SCH (09:00)
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
[2020-10-01] MEDS: hydrALAZINE HCL 25 MG TAB PO SCH ×2 (10:12→19:54)
[2020-10-01] MEDS: METOPROLOL TARTRATE 50 MG TAB PO SCH ×2 (10:12→19:54)
[2020-10-01] MEDS: CHLORHEXIDINE GLUCONATE 15 ML CUP MUCOUS MEM SCH ×2 (10:12→19:56)
[2020-10-01] MEDS: ASPIRIN 81 MG PO SCH (10:12)
[2020-10-01] MEDS: CLOPIDOGREL 75 MG TAB PO SCH (10:12)
[2020-10-01] MEDS: SPIRONOLACTONE 25 MG TAB PO SCH (10:12)
[2020-10-01] MEDS: PANTOPRAZOLE 40 MG/10 ML VIAL IV SCH (10:13)
[2020-10-01] MEDS: ENOXAPARIN 40 MG/0.4 ML SYRINGE SQ SCH (10:13)
[2020-10-01] MEDS: lisinopriL 20 MG TAB PO SCH ×2 (10:13→19:54)
[2020-10-01] MEDS: RANOLAZINE 500 MG TAB.ER.12H PO SCH ×2 (10:14→20:40)
--- NOTE | 2020-10-01 10:51 | P.PN ---
Subjective Progress Note Date: 10/01/20 HISTORY OF PRESENT ILLNESS: This is a 75 year old female with a past medical history significant for coronary artery disease, COPD, diabetes mellitus, DVT, hypertension, and hyperlipidemia. Patient follows in the office with Dr. Mccullough. We have been asked to see the patient in consultation for chest pain. Patient examined at the bedside in the emergency room. Patient states she has been having chest pain over the past 3-4 days intermittently. She states this morning the pain was the worst that it has been and was not going away. She states the pain was in the middle of her chest and felt like a tight squeezing sensation. She denies radiation of the pain. She reports diaphoresis. Patient reports shortness of breath as well. She does wear home o2 at night. She states she took nitro this morning with minimal relief in her pain. EKG reveals sinus mechanism with ST depression in inferior and lateral leads. Chest xray correlate for CHF exacerbation as there is cardiomegaly with tiny bilateral pleural effusions and mild interstitial edema on background chronic changes. Laboratory data: WBC 13.1. Hemoglobin 10.0. Platelet count 351. Sodium 136. Potassium 5.2. BUN 37. Creatinine 1.30. troponin negative 1. Current home cardiac medications include lisinopril 20 mg twice a day, hydralazine 25 mg twice a day, Aldactone 25 mg daily, Ranexa 500 mg twice a day, metoprolol titrate 50 mg twice a day, isosorbide dinitrate 30mg daily, Lasix 40 mg twice a day, Plavix 75 mg daily, Lipitor 80 mg daily, and aspirin 81 mg daily Most recent echocardiogram obtained June 2020 revealed ejection fraction 35- 40% Cardiac catheterization history: 07/01/[address] Mccullough. Patient underwent stenting to the circumflex. Cath also revealed patent stent to the L AD. Total occlusion of RCA which is chronic. 10/01/2020 Patient examined this morning at the bedside. She remains in the ICU. She underwent cardiac cath yesterday with angioplasty to the circumflex which had critical in-stent restenosis. Patient is intubated this morning. Plans are to extubate today per pulmonary medicine. She remains on IV nitro and levophed. PHYSICAL EXAM: VITAL SIGNS: Reviewed. GENERAL: Well-developed in no acute distress. HEENT: Head is normocephalic. Pupils are equal, round. Sclerae anicteric. Mucous membranes of the mouth are moist. Neck supple. No JVD or thyromegaly LUNGS: Respirations even and unlabored. Lungs diminished bilaterally. HEART: Regular rate and rhythm. S1 and S2 heard. EXTREMITIES: Normal range of motion. No clubbing or cyanosis. Peripheral pulses intact. Trace bilateral lower extremity edema. Cast in place to RLE which patient stated yesterday is due to nonhealing ulcer ASSESSMENT: Unstable angina, s/p balloon angioplasty to circumflex Coronary artery disease, s/p recent PCI to circumflex and previous PCI to LAD Acute on chronic systolic heart failure, EF 35-40% Hypertension Hyperlipidemia COPD Diabetes mellitus Nonhealing diabetic ulcer of right lower extremity PLAN: Continue current cardiac medications Continue IV lasix Discontinue IV nitro Wean levophed as tolerated Further recommendations pending patient course Nurse practitioner note has been reviewed by physician. Signing provider agrees with the documented findings, assessment, and plan of care. Objective - Vital Signs Vital signs: Vital Signs Temp 98.6 F 10/01/20 08:00 Pulse 81 10/01/20 10:00 Resp 26 H 10/01/20 10:00 BP 146/56 10/01/20 10:00 Pulse Ox 99 10/01/20 10:00 Intake & Output 09/30/20 10/01/20 10/01/20 18:59 06:59 18:59 Intake Total 600 643.747 248.964 Output Total 7751 123 3224 Balance -1000 -96.253 -1451.036 Weight 112.037 kg 112.9 kg Intake: IV 500 110 40 0.9 110 40 Intake, IV Titration 100 533.747 208.964 Amount Magnesium Sulfate-D5w Pmx 200 1 gm In Dextrose/Water 1 100ml.bag @ 100 mls/hr IVPB Q1H [facility] Rx#: [id number] Norepinephrine 4 mg In 251.990 8.964 Sodium Chloride 0.9% 250 ml @ 0.05 MCG/KG/MIN 21. 343 mls/hr IV .[id number] [facility] Rx#:[id number] Sodium Chloride 0.9% 1, 100 000 ml @ 75 mls/hr IV . [id number] [facility] Rx#:[id number] propofoL 1,000 mg In 281.757 Empty Bag 1 bag @ Titrate IV .Q0M [facility] Rx#: [id number] Output: Urine 4398 180 3376 Other: Voiding Method Indwelling Catheter Indwelling Catheter ABP, PAP, CO, CI - Last Documented Arterial Blood Pressure 169/55 - Labs CBC & Chem 7: 10/01/20 04:20 10/01/20 04:20 Labs: Abnormal Lab Results - Last 24 Hours (Table) 09/30/20 09/30/20 09/30/20 Range/Units 11:58 11:58 11:58 WBC 13.1 H (3.8-10.6) k/uL RBC (3.80-5.40) m/uL Hgb 10.0 L (11.4-16.0) gm/dL Hct 32.5 L (34.0-46.0) % MCV 77.7 L (80.0-100.0) fL MCH 23.8 L (25.0-35.0) pg MCHC 30.7 L (31.0-37.0) g/dL RDW 18.7 H (11.5-15.5) % Neutrophils # 9.1 H (1.3-7.7) k/uL APTT 20.0 L (22.0-30.0) sec ABG pH (7.35-7.45) ABG pCO2 (35-45) mmHg ABG pO2 (83-108) mmHg ABG HCO3 (21-25) mmol/L ABG Total CO2 (19-24) mmol/L ABG O2 Saturation (94-97) % Sodium 136 L (137-145) mmol/L Potassium 5.2 H (3.5-5.1) mmol/L Carbon Dioxide 21 L (22-30) mmol/L BUN 37 H (7-17) mg/dL Creatinine 1.30 H (0.52-1.04) mg/dL Glucose 205 H (74-99) mg/dL POC Glucose (mg/dL) (75-99) mg/dL 09/30/20 09/30/20 09/30/20 Range/Units 12:12 17:18 18:59 WBC (3.8-10.6) k/uL RBC (3.80-5.40) m/uL Hgb (11.4-16.0) gm/dL Hct (34.0-46.0) % MCV (80.0-100.0) fL MCH (25.0-35.0) pg MCHC (31.0-37.0) g/dL RDW (11.5-15.5) % Neutrophils # (1.3-7.7) k/uL APTT (22.0-30.0) sec ABG pH (7.35-7.45) ABG pCO2 (35-45) mmHg ABG pO2 (83-108) mmHg ABG HCO3 (21-25) mmol/L ABG Total CO2 (19-24) mmol/L ABG O2 Saturation (94-97) % Sodium (137-145) mmol/L Potassium (3.5-5.1) mmol/L Carbon Dioxide (22-30) mmol/L BUN (7-17) mg/dL Creatinine (0.52-1.04) mg/dL Glucose (74-99) mg/dL POC Glucose (mg/dL) 241 H 202 H 251 H (75-99) mg/dL 09/30/20 09/30/20 10/01/20 Range/Units 20:05 23:43 04:20 WBC (3.8-10.6) k/uL RBC (3.80-5.40) m/uL Hgb (11.4-16.0) gm/dL Hct (34.0-46.0) % MCV (80.0-100.0) fL MCH (25.0-35.0) pg MCHC (31.0-37.0) g/dL RDW (11.5-15.5) % Neutrophils # (1.3-7.7) k/uL APTT (22.0-30.0) sec ABG pH 7.28 L (7.35-7.45) ABG pCO2 55 H (35-45) mmHg ABG pO2 267 H (83-108) mmHg ABG HCO3 26 H (21-25) mmol/L ABG Total CO2 27 H (19-24) mmol/L ABG O2 Saturation 98.8 H (94-97) % Sodium 136 L (137-145) mmol/L Potassium (3.5-5.1) mmol/L Carbon Dioxide (22-30) mmol/L BUN 36 H (7-17) mg/dL Creatinine 1.11 H (0.52-1.04) mg/dL Glucose 151 H (74-99) mg/dL POC Glucose (mg/dL) 178 H (75-99) mg/dL 10/01/20 10/01/20 10/01/20 Range/Units 04:20 04:46 05:57 WBC 13.4 H (3.8-10.6) k/uL RBC 3.72 L (3.80-5.40) m/uL Hgb 9.3 L (11.4-16.0) gm/dL Hct 28.4 L (34.0-46.0) % MCV 76.1 L (80.0-100.0) fL MCH (25.0-35.0) pg MCHC (31.0-37.0) g/dL RDW 18.7 H (11.5-15.5) % Neutrophils # 9.7 H (1.3-7.7) k/uL APTT (22.0-30.0) sec ABG pH (7.35-7.45) ABG pCO2 (35-45) mmHg ABG pO2 144 H (83-108) mmHg ABG HCO3 26 H (21-25) mmol/L ABG Total CO2 27 H (19-24) mmol/L ABG O2 Saturation 98.6 H (94-97) % Sodium (137-145) mmol/L Potassium (3.5-5.1) mmol/L Carbon Dioxide (22-30) mmol/L BUN (7-17) mg/dL Creatinine (0.52-1.04) mg/dL Glucose (74-99) mg/dL POC Glucose (mg/dL) 147 H (75-99) mg/dL Microbiology - Last 24 Hours (Table) 10/01/20 00:13 Sputum Culture - Preliminary Sputum
[2020-10-01 11:32] LABS: Glucose,Whole Blood 155 mg/dL (75-99)
--- NOTE | 2020-10-01 12:06 | XR ---
EXAMINATION TYPE: XR chest 1V portable DATE OF EXAM: 10/01/2020 COMPARISON: 09/30/2020 HISTORY: Tube placement TECHNIQUE: Single frontal view of the chest is obtained. FINDINGS: Endotracheal tube is seen above the jazz. Enteric catheter courses towards the stomach. Multiple overlying leads. Low lung volumes. Heart size is mildly prominent, stable. Athetotic aorta. Interstitial prominence and bibasilar airspace opacities are relatively stable. Probable small pleura l effusions. No pneumothorax. IMPRESSION: 1. No significant interval change.
[2020-10-01 17:20] LABS: Glucose,Whole Blood 160 mg/dL (75-99)
[2020-10-01] MEDS: ATORVASTATIN 80 MG TAB PO SCH (19:54)
[2020-10-01] MEDS: HYDROcodone/APAP 7.5-325MG 1 EACH TAB PO PRN (19:54)
--- NOTE | 2020-10-01 23:16 | CONS ---
CONSULTATION DATE OF SERVICE: 10/01/2020 REASON FOR CONSULTATION: Bilateral diabetic foot ulcers. HISTORY OF PRESENT ILLNESS: The patient is a 75-year-old female, well known to my service, as this patient does follow with me at the [facility] for bilateral diabetic foot ulcers. The patient's left foot ulcer has almost healed and is currently covered with a scab. The right foot ulcer is currently being treated with Aquacel Silver dressing with overlying total contact case that was applied last , and she was supposed to have it removed this weekend. The patient presented to the ER yesterday for evaluation of increasing shortness of breath and some chest pain. This patient has been diagnosed with acute MT. The patient was taken to the general laborer and is status post intervention to the left circumflex. The patient needed to be intubated. However, the patient was stabilized and subsequently extubated. However, the patient went into respiratory distress and had to be re-intubated and was transferred to the ICU. The patient is currently intubated on the vent requiring low-dose pressor support. FiO2 is currently stable. No significant purulent secretions through the ET or any diarrhea reported by nursing staff. I was asked to see the patient regarding her bilateral diabetic foot ulcers and further management. Most of the information has been obtained from review of the chart, talking to nursing staff, as the patient is currently intubated on the vent and he is unable to provide any history. REVIEW OF SYSTEMS: Positive points have been mentioned in the HPI. Rest of the systems are negative. PAST MEDICAL HISTORY: Diabetes mellitus, diabetic foot ulcer, coronary artery disease, heart failure, COPD, DVT, gastroesophageal reflux disease, hyperlipidemia, hypertension. PAST SURGICAL HISTORY: Appendectomy, breast surgery, cholecystectomy, heart catheterization with stent placement, and debridement of bilateral foot ulcerations. SOCIAL HISTORY: Remote history of smoking. No drinking or drug use. FAMILY HISTORY: No pertinent findings noticed. ALLERGIES: AUGMENTIN, FLAGYL. MEDICATIONS: The patient is currently on [place], Maalox, DuoNeb, aspirin, Lipitor, atropine, Plavix, Lovenox, Lasix, heparin, weight-based protocol, hydralazine, Dilaudid, NovoLog, Zestril, Lopressor, Narcan, Protonix, Requip, Aldactone and Ambien. PHYSICAL EXAMINATION: Blood pressure is 122/49 with a pulse of 73, temperature 98.7. He is 91% on 4 L nasal cannula. General description is an elderly female lying in bed in no distress. No tachypnea or accessory muscle of respiration use. HEENT: Examination shows pallor. No scleral icterus. Patient is orally intubated. NECK: Trachea is central. No thyromegaly. LUNGS: Unlabored breathing. Clear to auscultation anteriorly. No wheeze or crackle. HEART: S1, S2. Regular rate and rhythm. ABDOMEN: Soft. No tenderness. No guarding or rigidity. EXTREMITIES: No edema of the feet. Examination of left foot: Plantar wound is almost healed, covered with callus. No cellulitis. Right foot plantar wound is currently covered with total contact cast. NEUROLOGIC: The patient is currently sedated on the vent. LABS: Hemoglobin 9.3, white count 13.4, BUN of 36, creatinine 1.1. Electrolytes have been normal. DIAGNOSTIC IMPRESSION AND PLAN: 1. Patient with a left diabetic foot plantar ulcer with no evidence of secondary cellulitis. Wound is almost healed and covered with a callus. 2. Right diabetic foot ulcer, plantar, with underlying diabetes mellitus. No evidence of cellulitis. Currently being treated with a total contact cast with no evidence of any cellulitis. PLAN: 1. Dry protective dressing to the left foot ulcer. 2. Will keep the total contact cast for the next 48 hours. On the cast can be taken off and further local wound care will be advised depending upon the condition of the wound. 3. No need for systemic antibiotic therapy. Thank you for this consultation. Will follow this patient along with you. MMODL / IJN: [id number] /
[2020-10-01 23:58] LABS: Glucose,Whole Blood 155 mg/dL (75-99)
[2020-10-02] MEDS: INSULIN ASPART (NovoLOG) 100 UNIT/ML VIAL SQ SCH ×5 (00:26→20:51)
--- NOTE | 2020-10-02 03:00 | PN ---
PROGRESS NOTE 75-year-old white female who is reduced off the vent to oxygen sat 95% on 4 L. Blood pressure 129/53, pulse 75, respiratory 14 to 16. Cardiovascular S1-S2. Lungs: Rales at the base. Hematology: Negative Homans, 2+ edema. GI soft, obese. ASSESSMENT AND PLAN: 1. Status post balloon angioplasty of circumflex. 2. Coronary artery disease. 3. Systolic congestive heart failure. 4. Diabetic wound infections. 5. Insulin-dependent diabetes mellitus. 6. Prognosis guarded. 7. Continue with IV Lasix. 8. Continue home medications. 9. Get out of the ICU tomorrow hopefully, as she is improving her breathing. MMODL / IJN: [id number] /
[2020-10-02 04:12] LABS: Anisocytosis Slight; Basophils % (A) 0 %; Eosinophils # (A) 0.2 k/uL (0-0.7); Eosinophils % (A) 2 %; HGB 9.1 gm/dL (11.4-16.0); Hypochromasia Marked; Lymphocytes # (A) 2.3 k/uL (1.0-4.8); Lymphocytes % (A) 17 %; MCH 24.6 pg (25.0-35.0); MCHC 31.2 g/dL (31.0-37.0); MCV 78.7 fL (80.0-100.0); Mean Platelet Volume 6.9; Microcytosis Slight; Monocytes # (A) 1.2 k/uL (0-1.0); Monocytes % (A) 9 %; Neutrophils # (A) 9.6 k/uL (1.3-7.7); Neutrophils % (A) 70 %; Platelet Count 264 k/uL (150-450); RBC 3.69 m/uL (3.80-5.40); RDW 18.4 % (11.5-15.5); WBC 13.7 k/uL (3.8-10.6)
[2020-10-02 04:28] LABS: Calcium 9.2 mg/dL (8.4-10.2); Magnesium 1.8 mg/dL (1.6-2.3); Potassium 4.2 mmol/L (3.5-5.1)
[2020-10-02] MEDS: FUROSEMIDE 10 MG/ML 4 ML VIAL IV SCH (05:13)
[2020-10-02] MEDS: MAGNESIUM SULFATE-D5W PMX 1 GM in DEXTROSE/WATER 1 100ML.BAG IVPB SCH ×2 (05:14→06:08)
[2020-10-02] MEDS: BENZOCAINE/MENTHOL LOZENG 1 EACH LOZENGE MUCOUS MEM PRN ×2 (05:14→20:37)
[2020-10-02 06:13] LABS: Glucose,Whole Blood 147 mg/dL (75-99)
--- NOTE | 2020-10-02 08:32 | XR ---
EXAMINATION TYPE: XR chest 1V portable DATE OF EXAM: 10/02/2020 COMPARISON: 10/01/2020 HISTORY: Tube placement TECHNIQUE: Single frontal view of the chest is obtained. FINDINGS: Multiple overlying leads. The previously seen endotracheal tube and enteric catheter have been removed. Heart size enlarged. Atherosclerotic aorta. There is a small right pleural effusion. No left pleural effusion. No pneumothorax. Mild interstitial prominence and bibasilar airspace opacitie s have decreased since prior exam. IMPRESSION: 1. Increasing small right pleural effusion. 2. Decreased pulmonary interstitial prominence and bibasilar airspace opacities. 3. Mild cardiomegaly is stable. 4. Endotracheal tube and enteric catheter have been removed.
[2020-10-02] MEDS: IPRATROPIUM-ALBUTEROL 3 ML NEB INHALATION SCH ×4 (09:10→19:49)
--- NOTE | 2020-10-02 09:41 | P.PN ---
Subjective Progress Note Date: 10/02/20 Principal diagnosis: Acute exacerbation of CHF 75-year-old white female patient with past medical history of coronary artery disease, hypertension, hyperlipidemia, diabetes type II, COPD who presented to the emergency department with complaints of chest pain on 09/30/2020. EKG showed normal sinus rhythm with incomplete left bundle branch block, and ST depression in inferior and lateral leads, chest x-ray showed CHF exacerbation, with cardiomegaly, and a small bilateral pleural effusions and mild interstitial edema. Patient has a previous echocardiogram in June 2020 revealing ejection fraction of 35-40%. Admission lab work showed troponin of 0.012, proBNP of 2330, BUN 37, creatinine of 1.3, potassium is 5.2, white blood cell count of 13.1, and hemoglobin of 10. Patient was initially on room air, subsequently placed on supplemental oxygen for hypoxia. She was evaluated by cardiology and taken to the slab off mill tender on 09/30/2020 and underwent PTCA of the left circumflex with excellent angiographic results. LVEDP during the procedure was 20 mmHg without significant gradient across the aortic valve. Following the procedure patient was significant a short of breath, she was intubated in the slab off mill tender and a right in the intensive care unit. Initial blood gas showed pO2 of 267, pCO2 of 55, and pH of 7.28 this was on FiO2 of 100%. Patient was given a dose of IV Lasix, she was successfully weaned and extubated in the evening of 09/30/2020 however developed worsening shortness of breath and required reintubation and placement on mechanical ventilator. This morning she is resting comfortably on the ventilator, on assist-control with a rate of 26, tidal vitamins 450, FiO2 50% and PEEP of 5. Blood gas showed pO2 of 144, pCO2 44, and pH of 7.37 and this was done on FiO2 of 100% in the it had since been cut back to 50%. She is currently on propofol at 45 mics per kilo per minute, nitroglycerin is at 5 mics per kilo per minute, and liters head is at 8 mics per minute. Today's chest x-ray shows right lower lobe pleural effusion, and atelectasis, and interstitial edema. Patient remains on IV diuretics at 40 mg every 12 hours, and she is in negative 1096 mL net fluid balance over the last 24 hours. Is in sinus mechanism, no arrhythmias overnight. On 10/02/2020 patient seen in follow-up in the intensive care unit, she was successfully weaned and extubated yesterday, tolerating extubation quite well so far, she is on 3 L of oxygen, and her pulse ox is 93-97%, afebrile, hemodynamically she is stable. She is sitting up in the recliner, in no acute distress, breathing comfortably, no complaint of chest pain. No acute events overnight, she remains on diuretics at 40 mg every 12 hours, she is in -2.8 L over the last 24 hours. Today's chest x-ray showing increasing small right pleural effusion, and decrease pulmonary interstitial prominence and bibasilar airspace opacities, mild cardiomegaly. She is in sinus mechanism. She remains on Plavix, aspirin, and high-dose Lipitor 80 mg daily, lisinopril and Imdur. Objective - Vital Signs Vital signs: Vital Signs Temp 98.3 F 10/02/20 08:00 Pulse 104 H 10/02/20 08:00 Resp 16 10/02/20 08:00 BP 104/39 10/02/20 08:00 Pulse Ox 100 10/02/20 08:00 Intake & Output 10/01/20 10/02/20 10/02/20 18:59 06:59 18:59 Intake Total 548.103 188.328 2.561 Output Total 2600 920 115 Balance -2051.897 -731.672 -112.439 Weight 112.9 kg 110.9 kg Intake: IV 120 10 0.9 120 10 Intake, IV Titration 428.103 178.328 2.561 Amount Magnesium Sulfate-D5w Pmx 200 1 gm In Dextrose/Water 1 100ml.bag @ 100 mls/hr IVPB Q1H [facility] Rx#: [id number] Magnesium Sulfate-D5w Pmx 100 1 gm In Dextrose/Water 1 100ml.bag @ 100 mls/hr IVPB Q1H [facility] Rx#: [id number] Norepinephrine 4 mg In 228.103 78.328 2.561 Sodium Chloride 0.9% 250 ml @ 0.05 MCG/KG/MIN 21. 343 mls/hr IV .[id number] [facility] Rx#:[id number] Output: Urine 2600 920 115 Other: Voiding Method Indwelling Catheter Indwelling Catheter Indwelling Catheter ABP, PAP, CO, CI - Last Documented Arterial Blood Pressure 140/50 - Exam GENERAL EXAM: Alert, very pleasant, 75-year-old white female, on 3 L oxygen with pulse ox of 93-97%, comfortable in no apparent distress. HEAD: Normocephalic/atraumatic. EYES: Normal reaction of pupils, equal size. Conjunctiva pink, sclera white. NOSE: Clear with pink turbinates. THROAT: No erythema or exudates. NECK: No masses, no JVD, no thyroid enlargement, no adenopathy. CHEST: No chest wall deformity. Symmetrical expansion. LUNGS: Equal air entry with bibasilar crackles CVS: Regular rate and rhythm, normal S1 and S2, no gallops, no murmurs, no rubs ABDOMEN: Soft, nontender. No hepatosplenomegaly, normal bowel sounds, no guarding or rigidity. EXTREMITIES: No clubbing, no edema, no cyanosis, 2+ pulses and upper and lower extremities. Patient has right lower extremity cast in place MUSCULOSKELETAL: Muscle strength and tone normal. SPINE: No scoliosis or deformity SKIN: No rashes CENTRAL NERVOUS SYSTEM: Alert and oriented -3. No focal deficits, tone is normal in all 4 extremities. PSYCHIATRIC: Alert and oriented -3. Appropriate affect. Intact judgment and insight. - Labs CBC & Chem 7: 10/02/20 03:49 10/02/20 03:22 Labs: Abnormal Lab Results - Last 24 Hours (Table) 10/01/20 10/01/20 10/01/20 Range/Units 11:30 17:19 23:57 WBC (3.8-10.6) k/uL RBC (3.80-5.40) m/uL Hgb (11.4-16.0) gm/dL Hct (34.0-46.0) % MCV (80.0-100.0) fL MCH (25.0-35.0) pg RDW (11.5-15.5) % Neutrophils # (1.3-7.7) k/uL Monocytes # (0-1.0) k/uL Sodium (137-145) mmol/L BUN (7-17) mg/dL Glucose (74-99) mg/dL POC Glucose (mg/dL) 155 H 160 H 155 H (75-99) mg/dL 0510/02/20 10/02/20 Range/Units 03:22 03:49 06:12 WBC 13.7 H (3.8-10.6) k/uL RBC 3.69 L (3.80-5.40) m/uL Hgb 9.1 L (11.4-16.0) gm/dL Hct 29.0 L (34.0-46.0) % MCV 78.7 L (80.0-100.0) fL MCH 24.6 L (25.0-35.0) pg RDW 18.4 H (11.5-15.5) % Neutrophils # 9.6 H (1.3-7.7) k/uL Monocytes # 1.2 H (0-1.0) k/uL Sodium 135 L (137-145) mmol/L BUN 30 H (7-17) mg/dL Glucose 140 H (74-99) mg/dL POC Glucose (mg/dL) 147 H (75-99) mg/dL Microbiology - Last 24 Hours (Table) 10/01/20 00:13 Gram Stain - Preliminary Sputum Sputum Culture - Preliminary Assessment and Plan Plan: Assessment: #1. Acute on chronic hypoxic respiratory failure related to acute exacerbation of systolic CHF, requiring intubation and placement on mechanical ventilator on 09/30/2020 in the slab off mill tender for that PTCA of the left circumflex, extubated on 09/30/2020 in the ICU, and reintubated later on 09/30/2020. Patient was weaned and extubated again on 10/01/2020 #2. Coronary artery disease, status post PTCA of the left circumflex, on 09/30/2020, on Plavix 75 mg, aspirin 81 mg, and Lipitor 80 mg #3. Unstable angina #4. Previous history of PCI of the LAD #5. Chronic CHF with EF of 35-40% #6. Hypertension #7. Hyperlipidemia #8. COPD home oxygen at 2 L at bedtime, and previous history of smoking #9. Diabetes mellitus type 2 with diabetic neuropathy #10. Nonhealing diabetic ulcer of the right lower extremity #11. Previous history of DVT #12. Chronic kidney disease, unspecified #13. Previous history of pneumonia with empyema status post surgical decorticat ion Plan: Continue diuretics Patient is maintaining negative fluid balance, FiO2 is down to 3 L Provide incentive spirometer Has been stable overnight, No complaints of chest pain worsening dyspnea Follow-up chest x-ray in the morning Follow-up labs in the morning I performed a history & physical examination of the patient and discussed their management with my nurse practitioner, Rita Manuel. I reviewed the nurse practitioner's note and agree with the documented findings and plan of care. Lung sounds are positive for diminished breath sounds. The findings and the impression was discussed with the patient. I attest to the documentation by the nurse practitioner. Time with Patient: Less than 30
--- NOTE | 2020-10-02 10:41 | P.PN ---
Subjective Progress Note Date: 10/02/20 HISTORY OF PRESENT ILLNESS: This is a 75 year old female with a past medical history significant for coronary artery disease, COPD, diabetes mellitus, DVT, hypertension, and hyperlipidemia. Patient follows in the office with Dr. Mccullough. We have been asked to see the patient in consultation for chest pain. Patient examined at the bedside in the emergency room. Patient states she has been having chest pain over the past 3-4 days intermittently. She states this morning the pain was the worst that it has been and was not going away. She states the pain was in the middle of her chest and felt like a tight squeezing sensation. She denies radiation of the pain. She reports diaphoresis. Patient reports shortness of breath as well. She does wear home o2 at night. She states she took nitro this morning with minimal relief in her pain. EKG reveals sinus mechanism with ST depression in inferior and lateral leads. Chest xray correlate for CHF exacerbation as there is cardiomegaly with tiny bilateral pleural effusions and mild interstitial edema on background chronic changes. Laboratory data: WBC 13.1. Hemoglobin 10.0. Platelet count 351. Sodium 136. Potassium 5.2. BUN 37. Creatinine 1.30. troponin negative 1. Current home cardiac medications include lisinopril 20 mg twice a day, hydralazine 25 mg twice a day, Aldactone 25 mg daily, Ranexa 500 mg twice a day, metoprolol titrate 50 mg twice a day, isosorbide dinitrate 30mg daily, Lasix 40 mg twice a day, Plavix 75 mg daily, Lipitor 80 mg daily, and aspirin 81 mg daily Most recent echocardiogram obtained June 2020 revealed ejection fraction 35- 40% Cardiac catheterization history: 07/01/[address] Mccullough. Patient underwent stenting to the circumflex. Cath also revealed patent stent to the L AD. Total occlusion of RCA which is chronic. 10/01/2020 Patient examined this morning at the bedside. She remains in the ICU. She underwent cardiac cath yesterday with angioplasty to the circumflex which had critical in-stent restenosis. Patient is intubated this morning. Plans are to extubate today per pulmonary medicine. She remains on IV nitro and levophed. 10/02/2020 Patient examined this morning in the ICU. Patient was extubated yesterday. She is on 3L NC with oxygen saturations greater than 92%. Blood pressure 104/39. She remains off vasopressors. She remains on Lasix 40 mg IV every 12 hours. Chest x-ray this morning reveals increasing small right pleural effusion. Mild cardiomegaly which is stable. Decreased pulmonary interstitial prominence and bibasilar airspace opacities. Fluid balance over the last 24 hours is -2783cc. PHYSICAL EXAM: VITAL SIGNS: Reviewed. GENERAL: Well-developed in no acute distress. HEENT: Head is normocephalic. Pupils are equal, round. Sclerae anicteric. Mucous membranes of the mouth are moist. Neck supple. No JVD or thyromegaly LUNGS: Respirations even and unlabored. Lungs diminished bilaterally. HEART: Regular rate and rhythm. S1 and S2 heard. EXTREMITIES: Normal range of motion. No clubbing or cyanosis. Peripheral pulses intact. Trace bilateral lower extremity edema. Cast in place to RLE which patient stated yesterday is due to nonhealing ulcer ASSESSMENT: Unstable angina, s/p balloon angioplasty to circumflex Coronary artery disease, s/p recent PCI to circumflex and previous PCI to LAD Acute on chronic systolic heart failure, EF 35-40% Hypertension Hyperlipidemia COPD Diabetes mellitus Nonhealing diabetic ulcer of right lower extremity PLAN: Continue current cardiac medications Continue IV lasix Daily weights Accurate I&O Monitor kidney function Patient may transfer to Further recommendations pending patient course Nurse practitioner note has been reviewed by physician. Signing provider agrees with the documented findings, assessment, and plan of care. Objective - Vital Signs Vital signs: Vital Signs Temp 98.3 F 10/02/20 08:00 Pulse 104 H 10/02/20 08:00 Resp 16 10/02/20 08:00 BP 104/39 10/02/20 08:00 Pulse Ox 100 10/02/20 08:00 Intake & Output 10/01/20 10/02/20 10/02/20 18:59 06:59 18:59 Intake Total 548.103 188.328 2.561 Output Total 2600 920 115 Balance -2051.897 -731.672 -112.439 Weight 112.9 kg 110.9 kg Intake: IV 120 10 0.9 120 10 Intake, IV Titration 428.103 178.328 2.561 Amount Magnesium Sulfate-D5w Pmx 200 1 gm In Dextrose/Water 1 100ml.bag @ 100 mls/hr IVPB Q1H [facility] Rx#: [id number] Magnesium Sulfate-D5w Pmx 100 1 gm In Dextrose/Water 1 100ml.bag @ 100 mls/hr IVPB Q1H [facility] Rx#: [id number] Norepinephrine 4 mg In 228.103 78.328 2.561 Sodium Chloride 0.9% 250 ml @ 0.05 MCG/KG/MIN 21. 343 mls/hr IV .[id number] [facility] Rx#:[id number] Output: Urine 2600 920 115 Other: Voiding Method Indwelling Catheter Indwelling Catheter Indwelling Catheter ABP, PAP, CO, CI - Last Documented Arterial Blood Pressure 140/50 - Labs CBC & Chem 7: 10/02/20 03:49 10/02/20 03:22 Labs: Abnormal Lab Results - Last 24 Hours (Table) 10/01/20 10/01/20 10/01/20 Range/Units 11:30 17:19 23:57 WBC (3.8-10.6) k/uL RBC (3.80-5.40) m/uL Hgb (11.4-16.0) gm/dL Hct (34.0-46.0) % MCV (80.0-100.0) fL MCH (25.0-35.0) pg RDW (11.5-15.5) % Neutrophils # (1.3-7.7) k/uL Monocytes # (0-1.0) k/uL Sodium (137-145) mmol/L BUN (7-17) mg/dL Glucose (74-99) mg/dL POC Glucose (mg/dL) 155 H 160 H 155 H (75-99) mg/dL 10/02/20 10/02/20 10/02/20 Range/Units 03:22 03:49 06:12 WBC 13.7 H (3.8-10.6) k/uL RBC 3.69 L (3.80-5.40) m/uL Hgb 9.1 L (11.4-16.0) gm/dL Hct 29.0 L (34.0-46.0) % MCV 78.7 L (80.0-100.0) fL MCH 24.6 L (25.0-35.0) pg RDW 18.4 H (11.5-15.5) % Neutrophils # 9.6 H (1.3-7.7) k/uL Monocytes # 1.2 H (0-1.0) k/uL Sodium 135 L (137-145) mmol/L BUN 30 H (7-17) mg/dL Glucose 140 H (74-99) mg/dL POC Glucose (mg/dL) 147 H (75-99) mg/dL Microbiology - Last 24 Hours (Table) 10/01/20 00:13 Gram Stain - Preliminary Sputum Sputum Culture - Preliminary
[2020-10-02] MEDS: CHLORHEXIDINE GLUCONATE 15 ML CUP MUCOUS MEM SCH ×2 (10:50→20:36)
[2020-10-02] MEDS: CLOPIDOGREL 75 MG TAB PO SCH (10:51)
[2020-10-02] MEDS: ASPIRIN 81 MG PO SCH (10:51)
[2020-10-02] MEDS: ISOSORBIDE DINITRATE 10 MG TAB PO SCH (10:51)
[2020-10-02] MEDS: hydrALAZINE HCL 25 MG TAB PO SCH ×2 (10:51→22:12)
[2020-10-02] MEDS: ENOXAPARIN 40 MG/0.4 ML SYRINGE SQ SCH (10:51)
[2020-10-02] MEDS: lisinopriL 20 MG TAB PO SCH ×2 (10:52→22:12)
[2020-10-02] MEDS: PANTOPRAZOLE 40 MG/10 ML VIAL IV SCH (10:52)
[2020-10-02] MEDS: METOPROLOL TARTRATE 50 MG TAB PO SCH ×2 (10:52→22:12)
[2020-10-02] MEDS: RANOLAZINE 500 MG TAB.ER.12H PO SCH ×2 (10:52→21:14)
[2020-10-02] MEDS: SPIRONOLACTONE 25 MG TAB PO SCH (10:54)
[2020-10-02] MEDS: HYDROcodone/APAP 7.5-325MG 1 EACH TAB PO PRN ×2 (10:58→22:08)
[2020-10-02 12:11] LABS: Glucose,Whole Blood 205 mg/dL (75-99)
--- NOTE | 2020-10-02 16:36 | PN ---
PROGRESS NOTE DATE OF SERVICE: 10/02/2020 REASON FOR FOLLOWUP: Bilateral diabetic foot ulcer. INTERVAL HISTORY: The patient is afebrile. The patient has been extubated. The patient is breathing comfortably. The patient denies having any chest pain or cough. No abdominal pain. Denies pain to the lower extremity wound area. PHYSICAL EXAMINATION: Blood pressure 125/52 with a pulse of 74, temperature of 98. She is 99% on 3 L nasal cannula. General description is an elderly female up in the chair in no distress. RESPIRATORY SYSTEM: Unlabored breathing, some coarse breath sounds bilaterally. No wheeze. HEART: S1, S2. Regular rate and rhythm. ABDOMEN: Soft, no tenderness. Right foot wound is currently covered with a total contact cast. LABS: Hemoglobin is 9.1, white count 13.7, BUN of 30, creatinine 1.01. Sputum cultures currently pending. DIAGNOSTIC IMPRESSION AND PLAN: Patient with bilateral diabetic foot plantar ulcer with no evidence of any secondary cellulitis. Left foot is almost healed. Right foot is currently covered with total contact cast to continue. If the patient ends up staying beyond tomorrow, will recommend removal of the a total contact cast. Continue supportive care. MMODL / IJN: [id number] /
[2020-10-02 16:44] LABS: Glucose,Whole Blood 161 mg/dL (75-99)
[2020-10-02] MEDS: ATORVASTATIN 80 MG TAB PO SCH (20:37)
[2020-10-02 20:43] LABS: Glucose,Whole Blood 202 mg/dL (75-99)
[2020-10-02] MEDS: NOREPINEPHRINE 4 MG in SODIUM CHLORIDE 0.9% 250 ML IV SCH (21:15)
--- NOTE | 2020-10-02 23:47 | PN ---
PROGRESS NOTE This is a 75-year-old white female, status post ventilator, extubated, status post balloon angioplasty to the right circumflex. Breathing comfortably on 2-4 L. No abdominal pain. She denies pain to lower extremity wound area which is healed on the right foot. She has a cast over the wound on the left foot. Blood pressure 120s over 50s. Pulse is 70s, temp 98, O2 is 99 on 3 L. Endocrine: BMI is over 40. Cardiovascular S1-S2. Lungs are rales at the bases. Hematology: Negative Homans. She has a cast on the left foot. Abdomen is soft, nontender. White count 13.7, hemoglobin 4.1, BUN 30, creatinine 1.01. ASSESSMENT: 1. Bilateral diabetic foot plantar ulcer. No evidence of secondary cellulitis. Left foot is almost healed. Right foot, currently has a cast on entire foot. Continue to wean oxygen. 2. Treat for congestive heart failure, status post angioplasty. 3. Diabetic control with insulin. 4. Wound control per Dr. Perez. 5. Prognosis guarded. 6. ICU time 20. MMODL / IJN: [id number] /
[2020-10-03 03:40] LABS: Anisocytosis Slight; Basophils % (A) 0 %; Eosinophils # (A) 0.4 k/uL (0-0.7); Eosinophils % (A) 4 %; HCT 29.5 % (34.0-46.0); HGB 9.6 gm/dL (11.4-16.0); Hypochromasia Slight; Lymphocytes # (A) 2.1 k/uL (1.0-4.8); Lymphocytes % (A) 25 %; MCH 25.1 pg (25.0-35.0); MCHC 32.6 g/dL (31.0-37.0); MCV 76.9 fL (80.0-100.0); Mean Platelet Volume 6.9; Microcytosis Slight; Monocytes # (A) 0.6 k/uL (0-1.0); Monocytes % (A) 7 %; Neutrophils # (A) 5.2 k/uL (1.3-7.7); Neutrophils % (A) 62 %; Platelet Count 279 k/uL (150-450); RBC 3.83 m/uL (3.80-5.40); RDW 18.2 % (11.5-15.5); WBC 8.5 k/uL (3.8-10.6)
[2020-10-03 03:48] LABS: ALT 16 U/L (4-34); AST 24 U/L (14-36); African American GFR (CKD) >90 (>60 ml/min/1.73 sqM); Albumin 3.5 g/dL (3.5-5.0); Alkaline Phosphatase 90 U/L (38-126); Anion Gap 7 mmol/L; Blood Urea Nitrogen 22 mg/dL (7-17); Calcium 9.4 mg/dL (8.4-10.2); Carbon Dioxide 29 mmol/L (22-30); Chloride 99 mmol/L (98-107); Glucose 140 mg/dL (74-99); Magnesium 1.9 mg/dL (1.6-2.3); Non-African American GFR(CKD) 81 (>60 ml/min/1.73 sqM); Sodium 135 mmol/L (137-145); Total Bilirubin 0.4 mg/dL (0.2-1.3); Total Protein 6.1 g/dL (6.3-8.2)
[2020-10-03] MEDS: BENZOCAINE/MENTHOL LOZENG 1 EACH LOZENGE MUCOUS MEM PRN ×4 (05:24→22:53)
[2020-10-03 06:50] LABS: Glucose,Whole Blood 162 mg/dL (75-99)
[2020-10-03] MEDS: INSULIN ASPART (NovoLOG) 100 UNIT/ML VIAL SQ SCH ×4 (06:56→22:54)
[2020-10-03] MEDS: IPRATROPIUM-ALBUTEROL 3 ML NEB INHALATION SCH ×4 (07:25→19:18)
--- NOTE | 2020-10-03 09:16 | P.PN ---
Subjective Progress Note Date: 10/03/20 Principal diagnosis: Acute exacerbation of CHF 75-year-old white female patient with past medical history of coronary artery disease, hypertension, hyperlipidemia, diabetes type II, COPD who presented to the emergency department with complaints of chest pain on 09/30/2020. EKG showed normal sinus rhythm with incomplete left bundle branch block, and ST depression in inferior and lateral leads, chest x-ray showed CHF exacerbation, with cardiomegaly, and a small bilateral pleural effusions and mild interstitial edema. Patient has a previous echocardiogram in June 2020 revealing ejection fraction of 35-40%. Admission lab work showed troponin of 0.012, proBNP of 2330, BUN 37, creatinine of 1.3, potassium is 5.2, white blood cell count of 13.1, and hemoglobin of 10. Patient was initially on room air, subsequently placed on supplemental oxygen for hypoxia. She was evaluated by cardiology and taken to the energy systems laboratory director on 09/30/2020 and underwent PTCA of the left circumflex with excellent angiographic results. LVEDP during the procedure was 20 mmHg without significant gradient across the aortic valve. Following the procedure patient was significant a short of breath, she was intubated in the energy systems laboratory director and a right in the intensive care unit. Initial blood gas showed pO2 of 267, pCO2 of 55, and pH of 7.28 this was on FiO2 of 100%. Patient was given a dose of IV Lasix, she was successfully weaned and extubated in the evening of 09/30/2020 however developed worsening shortness of breath and required reintubation and placement on mechanical ventilator. This morning she is resting comfortably on the ventilator, on assist-control with a rate of 26, tidal vitamins 450, FiO2 50% and PEEP of 5. Blood gas showed pO2 of 144, pCO2 44, and pH of 7.37 and this was done on FiO2 of 100% in the it had since been cut back to 50%. She is currently on propofol at 45 mics per kilo per minute, nitroglycerin is at 5 mics per kilo per minute, and liters head is at 8 mics per minute. Today's chest x-ray shows right lower lobe pleural effusion, and atelectasis, and interstitial edema. Patient remains on IV diuretics at 40 mg every 12 hours, and she is in negative 1096 mL net fluid balance over the last 24 hours. Is in sinus mechanism, no arrhythmias overnight. On 10/02/2020 patient seen in follow-up in the intensive care unit, she was successfully weaned and extubated yesterday, tolerating extubation quite well so far, she is on 3 L of oxygen, and her pulse ox is 93-97%, afebrile, hemodynamically she is stable. She is sitting up in the recliner, in no acute distress, breathing comfortably, no complaint of chest pain. No acute events overnight, she remains on diuretics at 40 mg every 12 hours, she is in -2.8 L over the last 24 hours. Today's chest x-ray showing increasing small right pleural effusion, and decrease pulmonary interstitial prominence and bibasilar airspace opacities, mild cardiomegaly. She is in sinus mechanism. She remains on Plavix, aspirin, and high-dose Lipitor 80 mg daily, lisinopril and Imdur. On 10/03/2020 patient seen in follow-up in intensive care unit. She is awake and alert, oriented, in no acute distress, breathing comfortably, she is currently at 2 L of oxygen, pulse ox is 94%, she's been afebrile, blood pressure has been stable through the night, yesterday her systolic blood pressure was in the mid 70s through the day, we switched her IV Lasix to oral Lasix to 40 mg daily, today's chest x-ray is pending. She is on minimal supplemental oxygen, no complaints of shortness of breath, no complaints of chest pain. Patient is in -1.3 L over last 24 hours. Her blood pressure meds were held last night. Patient remains on dual antiplatelet therapy with aspirin and Plavix, Lopressor 50 mg twice daily, Imdur 30 mg daily, lisinopril 20 mg twice daily, although March 10 milligrams daily Objective - Vital Signs Vital signs: Vital Signs Temp 98.2 F 10/03/20 04:00 Pulse 90 10/03/20 07:00 Resp 22 10/03/20 07:00 BP 144/58 10/03/20 07:00 Pulse Ox 94 L 10/03/20 05:00 Intake & Output 10/02/20 10/03/20 10/03/20 18:59 06:59 18:59 Intake Total 2.561 0 0 Output Total 520 775 275 Balance -517.439 -775 -275 Weight 112.2 kg Intake: IV 0 0 0 0.9 0 0 0 Intake, IV Titration 2.561 Amount Norepinephrine 4 mg In 2.561 Sodium Chloride 0.9% 250 ml @ 0.05 MCG/KG/MIN 21. 343 mls/hr IV .[id number] [facility] Rx#:[id number] Output: Urine 520 775 275 Other: Voiding Method Indwelling Catheter Indwelling Catheter ABP, PAP, CO, CI - Last Documented Arterial Blood Pressure 140/50 - Exam GENERAL EXAM: Alert, very pleasant, 75-year-old white female, on 2 L oxygen with pulse ox of 94%, comfortable in no apparent distress. HEAD: Normocephalic/atraumatic. EYES: Normal reaction of pupils, equal size. Conjunctiva pink, sclera white. NOSE: Clear with pink turbinates. THROAT: No erythema or exudates. NECK: No masses, no JVD, no thyroid enlargement, no adenopathy. CHEST: No chest wall deformity. Symmetrical expansion. LUNGS: Equal air entry with bibasilar crackles CVS: Regular rate and rhythm, normal S1 and S2, no gallops, no murmurs, no rubs ABDOMEN: Soft, nontender. No hepatosplenomegaly, normal bowel sounds, no guarding or rigidity. EXTREMITIES: No clubbing, no edema, no cyanosis, 2+ pulses and upper and lower extremities. Patient has right lower extremity cast in place MUSCULOSKELETAL: Muscle strength and tone normal. SPINE: No scoliosis or deformity SKIN: No rashes CENTRAL NERVOUS SYSTEM: Alert and oriented -3. No focal deficits, tone is normal in all 4 extremities. PSYCHIATRIC: Alert and oriented -3. Appropriate affect. Intact judgment and insight. - Labs CBC & Chem 7: 10/03/20 03:17 10/03/20 03:17 Labs: Abnormal Lab Results - Last 24 Hours (Table) 10/02/20 10/02/20 10/02/20 Range/Units 12:10 16:44 20:41 Hgb (11.4-16.0) gm/dL Hct (34.0-46.0) % MCV (80.0-100.0) fL RDW (11.5-15.5) % Sodium (137-145) mmol/L BUN (7-17) mg/dL Glucose (74-99) mg/dL POC Glucose (mg/dL) 205 H 161 H 202 H (75-99) mg/dL Total Protein (6.3-8.2) g/dL 10/03/20 10/03/20 10/03/20 Range/Units 03:17 03:17 06:48 Hgb 9.6 L (11.4-16.0) gm/dL Hct 29.5 L (34.0-46.0) % MCV 76.9 L (80.0-100.0) fL RDW 18.2 H (11.5-15.5) % Sodium 135 L (137-145) mmol/L BUN 22 H (7-17) mg/dL Glucose 140 H (74-99) mg/dL POC Glucose (mg/dL) 162 H (75-99) mg/dL Total Protein 6.1 L (6.3-8.2) g/dL Assessment and Plan Plan: Assessment: #1. Acute on chronic hypoxic respiratory failure related to acute exacerbation of systolic CHF, requiring intubation and placement on mechanical ventilator on 09/30/2020 in the energy systems laboratory director for that PTCA of the left circumflex, extubated on 0 09/30/2020 in the ICU, and reintubated later on 09/30/2020. Patient was weaned and extubated again on 10/01/2020 #2. Coronary artery disease, status post PTCA of the left circumflex, on 09/30/2020, on Plavix 75 mg, aspirin 81 mg, and Lipitor 80 mg #3. Unstable angina #4. Previous history of PCI of the LAD #5. Chronic CHF with EF of 35-40% #6. Hypertension #7. Hyperlipidemia #8. COPD home oxygen at 2 L at bedtime, and previous history of smoking #9. Diabetes mellitus type 2 with diabetic neuropathy #10. Nonhealing diabetic ulcer of the right lower extremity #11. Previous history of DVT #12. Chronic kidney disease, unspecified #13. Previous history of pneumonia with empyema status post surgical decortication Plan: Patient is doing well Blood pressure was stable overnight Was transitioned to oral Lasix 40 mg daily In negative fluid balance On minimal supplemental oxygen currently at 2 L which could probably be removed Today's chest x-ray pending From pulmonary/critical care perspective patient is stable for transfer out of intensive care unit to [facility]. [facility] I performed a history & physical examination of the patient and discussed their management with my nurse practitioner, Rita Manuel. I reviewed the nurse practitioner's note and agree with the documented findings and plan of care. Lung sounds are positive for diminished breath sounds. The findings and the impression was discussed with the patient. I attest to the documentation by the nurse practitioner. Time with Patient: Less than 30
[2020-10-03] MEDS: NOREPINEPHRINE 4 MG in SODIUM CHLORIDE 0.9% 250 ML IV SCH (09:58)
[2020-10-03] MEDS: ASPIRIN 81 MG PO SCH (10:19)
[2020-10-03] MEDS: FUROSEMIDE 40 MG TAB PO SCH (10:19)
[2020-10-03] MEDS: CLOPIDOGREL 75 MG TAB PO SCH (10:19)
[2020-10-03] MEDS: hydrALAZINE HCL 25 MG TAB PO SCH ×2 (10:19→20:12)
[2020-10-03] MEDS: ENOXAPARIN 40 MG/0.4 ML SYRINGE SQ SCH (10:20)
[2020-10-03] MEDS: SPIRONOLACTONE 25 MG TAB PO SCH (10:20)
[2020-10-03] MEDS: lisinopriL 20 MG TAB PO SCH ×2 (10:20→20:13)
[2020-10-03] MEDS: PANTOPRAZOLE 40 MG/10 ML VIAL IV SCH (10:20)
[2020-10-03] MEDS: HYDROcodone/APAP 7.5-325MG 1 EACH TAB PO PRN ×3 (11:05→22:53)
[2020-10-03] MEDS: METOPROLOL TARTRATE 25 MG TAB PO SCH ×2 (11:07→20:12)
[2020-10-03] MEDS: ISOSORBIDE DINITRATE 10 MG TAB PO SCH (11:07)
[2020-10-03] MEDS: RANOLAZINE 500 MG TAB.ER.12H PO SCH ×2 (11:07→20:12)
[2020-10-03] MEDS: METOPROLOL TARTRATE 50 MG TAB PO SCH (11:17)
[2020-10-03 11:43] LABS: Glucose,Whole Blood 161 mg/dL (75-99)
--- NOTE | 2020-10-03 11:48 | P.PN ---
Subjective Progress Note Date: 10/03/20 HISTORY OF PRESENT ILLNESS: This is a 75 year old female with a past medical history significant for coronary artery disease, COPD, diabetes mellitus, DVT, hypertension, and hyperlipidemia. Patient follows in the office with Dr. Mccullough. We have been asked to see the patient in consultation for chest pain. Patient examined at the bedside in the emergency room. Patient states she has been having chest pain over the past 3-4 days intermittently. She states this morning the pain was the worst that it has been and was not going away. She states the pain was in the middle of her chest and felt like a tight squeezing sensation. She denies radiation of the pain. She reports diaphoresis. Patient reports shortness of breath as well. She does wear home o2 at night. She states she took nitro this morning with minimal relief in her pain. EKG reveals sinus mechanism with ST depression in inferior and lateral leads. Chest xray correlate for CHF exacerbation as there is cardiomegaly with tiny bilateral pleural effusions and mild interstitial edema on background chronic changes. Laboratory data: WBC 13.1. Hemoglobin 10.0. Platelet count 351. Sodium 136. Potassium 5.2. BUN 37. Creatinine 1.30. troponin negative 1. Current home cardiac medications include lisinopril 20 mg twice a day, hydralazine 25 mg twice a day, Aldactone 25 mg daily, Ranexa 500 mg twice a day, metoprolol titrate 50 mg twice a day, isosorbide dinitrate 30mg daily, Lasix 40 mg twice a day, Plavix 75 mg daily, Lipitor 80 mg daily, and aspirin 81 mg daily Most recent echocardiogram obtained June 2020 revealed ejection fraction 35- 40% Cardiac catheterization history: 07/01/[address] Mccullough. Patient underwent stenting to the circumflex. Cath also revealed patent stent to the L AD. Total occlusion of RCA which is chronic. 10/01/2020 Patient examined this morning at the bedside. She remains in the ICU. She underwent cardiac cath yesterday with angioplasty to the circumflex which had critical in-stent restenosis. Patient is intubated this morning. Plans are to extubate today per pulmonary medicine. She remains on IV nitro and levophed. 10/02/2020 Patient examined this morning in the ICU. Patient was extubated yesterday. She is on 3L NC with oxygen saturations greater than 92%. Blood pressure 104/39. She remains off vasopressors. She remains on Lasix 40 mg IV every 12 hours. Chest x-ray this morning reveals increasing small right pleural effusion. Mild cardiomegaly which is stable. Decreased pulmonary interstitial prominence and bibasilar airspace opacities. Fluid balance over the last 24 hours is -2783cc. 10/03/2020 Patient examined this morning at the bedside. She remains in the ICU, awaiting a bed on 3S. She states she is feeling well. Denies chest pain or pressure. She reports her shortness of breath is improving. She did get a little short of breath when walking from the chair to the bed. She has been using oxygen intermittently. She remains off vasopressors. Blood pressure was on the lower side yesterday but today is within normal limits. PHYSICAL EXAM: VITAL SIGNS: Reviewed. GENERAL: Well-developed in no acute distress. HEENT: Head is normocephalic. Pupils are equal, round. Sclerae anicteric. Mucous membranes of the mouth are moist. Neck supple. No JVD or thyromegaly LUNGS: Respirations even and unlabored. Lungs diminished bilaterally. HEART: Regular rate and rhythm. S1 and S2 heard. EXTREMITIES: Normal range of motion. No clubbing or cyanosis. Peripheral pulses intact. Trace bilateral lower extremity edema. ASSESSMENT: Unstable angina, s/p balloon angioplasty to circumflex Coronary artery disease, s/p recent PCI to circumflex and previous PCI to LAD Acute on chronic systolic heart failure, EF 35-40% Hypertension Hyperlipidemia COPD Diabetes mellitus Nonhealing diabetic ulcer of right lower extremity PLAN: Continue current cardiac medications Decrease metoprolol to 25mg BID Patient has been transitioned to oral lasix per pulmonary Daily weights Accurate I&O Monitor kidney function Patient may transfer to 3S Further recommendations pending patient course Nurse practitioner note has been reviewed by physician. Signing provider agrees with the documented findings, assessment, and plan of care. Objective - Vital Signs Vital signs: Vital Signs Temp 98.7 F 10/03/20 08:00 Pulse 86 10/03/20 11:00 Resp 19 10/03/20 11:00 BP 147/62 10/03/20 11:00 Pulse Ox 90 L 10/03/20 11:00 Intake & Output 10/02/20 10/03/20 10/03/20 18:59 06:59 18:59 Intake Total 2.561 0 0 Output Total 520 775 275 Balance -517.439 -775 -275 Weight 112.2 kg Intake: IV 0 0 0 0.9 0 0 0 Intake, IV Titration 2.561 Amount Norepinephrine 4 mg In 2.561 Sodium Chloride 0.9% 250 ml @ 0.05 MCG/KG/MIN 21. 343 mls/hr IV .[id number] [facility] Rx#:[id number] Output: Urine 520 775 275 Other: Voiding Method Indwelling Catheter Indwelling Catheter ABP, PAP, CO, CI - Last Documented Arterial Blood Pressure 140/50 - Labs CBC & Chem 7: 10/03/20 03:17 10/03/20 03:17 Labs: Abnormal Lab Results - Last 24 Hours (Table) 10/02/20 10/02/20 10/02/20 Range/Units 12:10 16:44 20:41 Hgb (11.4-16.0) gm/dL Hct (34.0-46.0) % MCV (80.0-100.0) fL RDW (11.5-15.5) % Sodium (137-145) mmol/L BUN (7-17) mg/dL Glucose (74-99) mg/dL POC Glucose (mg/dL) 205 H 161 H 202 H (75-99) mg/dL Total Protein (6.3-8.2) g/dL 10/03/20 10/03/20 10/03/20 Range/Units 03:17 03:17 06:48 Hgb 9.6 L (11.4-16.0) gm/dL Hct 29.5 L (34.0-46.0) % MCV 76.9 L (80.0-100.0) fL RDW 18.2 H (11.5-15.5) % Sodium 135 L (137-145) mmol/L BUN 22 H (7-17) mg/dL Glucose 140 H (74-99) mg/dL POC Glucose (mg/dL) 162 H (75-99) mg/dL Total Protein 6.1 L (6.3-8.2) g/dL 10/03/20 Range/Units 11:42 Hgb (11.4-16.0) gm/dL Hct (34.0-46.0) % MCV (80.0-100.0) fL RDW (11.5-15.5) % Sodium (137-145) mmol/L BUN (7-17) mg/dL Glucose (74-99) mg/dL POC Glucose (mg/dL) 161 H (75-99) mg/dL Total Protein (6.3-8.2) g/dL Microbiology - Last 24 Hours (Table) 10/01/20 00:13 Gram Stain - Final Sputum Sputum Culture - Final
[2020-10-03 13:27] VITALS: BMI 38.7
--- NOTE | 2020-10-03 16:16 | PN ---
PROGRESS NOTE DATE OF SERVICE: 10/03/2020 REASON FOR FOLLOWUP: Bilateral diabetic foot ulcers. No cellulitis. INTERVAL HISTORY: The patient is afebrile. The patient is breathing comfortably, currently on room air. The patient denies having any chest pain or shortness of breath. Occasional cough. No abdominal pain and no pain to the bilateral foot wound areas. PHYSICAL EXAMINATION: Blood pressure 106/45, pulse 80, temperature 98. She is 98% on room air. General description is an elderly female up in the bed in no distress. RESPIRATORY SYSTEM: Unlabored breathing. Clear to auscultation anteriorly. HEART: S1, S2. Regular rate and rhythm. ABDOMEN: Soft. No tenderness. Right leg still has the total contact cast. LABS: Hemoglobin 9.6, white count 8.5, BUN of 22, creatinine 0.74. DIAGNOSTIC IMPRESSION AND PLAN: 1. Patient with bilateral diabetic foot plantar ulcers with no evidence of any secondary cellulitis, admitted to hospital with acute myocardial infarction, status post percutaneous transluminal coronary angioplasty. Will the wound care evaluation for removal of the cast on the right leg. Afterwards will apply Aquacel Silver. 2. Elevated white cell count, reactive, and normalized. MMODL / IJN: [id number] /
[2020-10-03 17:00] LABS: Glucose,Whole Blood 183 mg/dL (75-99)
[2020-10-03] MEDS: ATORVASTATIN 80 MG TAB PO SCH (20:12)
[2020-10-03 22:45] LABS: Glucose,Whole Blood 150 mg/dL (75-99)
--- NOTE | 2020-10-04 03:47 | PN ---
PROGRESS NOTE White female is improving from congestive heart failure due to shock to the heart after PTCA. She is doing well, sitting up in a chair, breathing on room air in the low 90s. Cardiovascular S1-S2. Lungs clear. GI soft. Hematology: Negative Homans. She had a cast removed from her foot. Wound doctors figuring out what to do about this. Plan is to possibly discharge home tomorrow. I will decrease metoprolol to 25 b.i.d. due to bradycardia. Switched to oral Lasix today. Monitor renal function. Possible discharge home depending on wound care from Dr. Perez. MMODL / IJN: [id number] /
[2020-10-04 05:09] LABS: Anisocytosis Slight; Basophils % (A) 0 %; Eosinophils # (A) 0.3 k/uL (0-0.7); Eosinophils % (A) 4 %; HCT 27.8 % (34.0-46.0); Hypochromasia Moderate; Lymphocytes # (A) 1.8 k/uL (1.0-4.8); Lymphocytes % (A) 23 %; MCH 24.9 pg (25.0-35.0); MCHC 32.2 g/dL (31.0-37.0); MCV 77.2 fL (80.0-100.0); Mean Platelet Volume 6.8; Microcytosis Slight; Monocytes # (A) 0.5 k/uL (0-1.0); Monocytes % (A) 7 %; Neutrophils # (A) 5.1 k/uL (1.3-7.7); Neutrophils % (A) 65 %; Platelet Count 300 k/uL (150-450); RDW 18.2 % (11.5-15.5); WBC 7.9 k/uL (3.8-10.6)
[2020-10-04 05:18] LABS: African American GFR (CKD) >90 (>60 ml/min/1.73 sqM); Anion Gap 6 mmol/L; Blood Urea Nitrogen 16 mg/dL (7-17); Calcium 8.9 mg/dL (8.4-10.2); Carbon Dioxide 28 mmol/L (22-30); Chloride 98 mmol/L (98-107); Glucose 148 mg/dL (74-99); Magnesium 1.5 mg/dL (1.6-2.3); Non-African American GFR(CKD) 82 (>60 ml/min/1.73 sqM); Sodium 132 mmol/L (137-145)
[2020-10-04] MEDS: BENZOCAINE/MENTHOL LOZENG 1 EACH LOZENGE MUCOUS MEM PRN ×3 (06:14→18:03)
[2020-10-04 06:57] LABS: Glucose,Whole Blood 169 mg/dL (75-99)
[2020-10-04] MEDS: IPRATROPIUM-ALBUTEROL 3 ML NEB INHALATION SCH ×3 (07:03→15:46)
[2020-10-04] MEDS: INSULIN ASPART (NovoLOG) 100 UNIT/ML VIAL SQ SCH ×3 (07:09→17:08)
[2020-10-04] MEDS: MAGNESIUM SULFATE-D5W PMX 1 GM in DEXTROSE/WATER 1 100ML.BAG IVPB SCH ×2 (08:09→09:22)
[2020-10-04] MEDS: ENOXAPARIN 40 MG/0.4 ML SYRINGE SQ SCH (08:09)
[2020-10-04] MEDS: PANTOPRAZOLE 40 MG/10 ML VIAL IV SCH (08:09)
[2020-10-04] MEDS: ASPIRIN 81 MG PO SCH (08:10)
[2020-10-04] MEDS: FUROSEMIDE 40 MG TAB PO SCH (08:10)
[2020-10-04] MEDS: lisinopriL 20 MG TAB PO SCH (08:10)
[2020-10-04] MEDS: HYDROcodone/APAP 7.5-325MG 1 EACH TAB PO PRN ×2 (08:10→17:08)
[2020-10-04] MEDS: METOPROLOL TARTRATE 25 MG TAB PO SCH (08:10)
[2020-10-04] MEDS: CLOPIDOGREL 75 MG TAB PO SCH (08:10)
[2020-10-04] MEDS: SPIRONOLACTONE 25 MG TAB PO SCH (08:10)
[2020-10-04] MEDS: hydrALAZINE HCL 25 MG TAB PO SCH (08:10)
[2020-10-04] MEDS: RANOLAZINE 500 MG TAB.ER.12H PO SCH (08:10)
[2020-10-04] MEDS: ISOSORBIDE DINITRATE 10 MG TAB PO SCH (08:10)
--- NOTE | 2020-10-04 10:19 | P.PN ---
Subjective Progress Note Date: 10/04/20 Principal diagnosis: Unstable angina. 75-year-old white female patient with past medical history of coronary artery disease, hypertension, hyperlipidemia, diabetes type II, COPD who presented to the emergency department with complaints of chest pain on 09/30/2020. EKG showed normal sinus rhythm with incomplete left bundle branch block, and ST depression in inferior and lateral leads, chest x-ray showed CHF exacerbation, with cardiomegaly, and a small bilateral pleural effusions and mild interstitial edema. Patient has a previous echocardiogram in June 2020 revealing ejection fraction of 35-40%. Admission lab work showed troponin of 0.012, proBNP of 2330, BUN 37, creatinine of 1.3, potassium is 5.2, white blood cell count of 13.1, and hemoglobin of 10. Patient was initially on room air, subsequently placed on supplemental oxygen for hypoxia. She was evaluated by cardiology and taken to the brine room laborer on 09/30/2020 and underwent PTCA of the left circumflex with excellent angiographic results. LVEDP during the procedure was 20 mmHg without significant gradient across the aortic valve. Following the procedure patient was significant a short of breath, she was intubated in the brine room laborer and a right in the intensive care unit. Initial blood gas showed pO2 of 267, pCO2 of 55, and pH of 7.28 this was on FiO2 of 100%. Patient was given a dose of IV Lasix, she was successfully weaned and extubated in the evening of 09/30/2020 however developed worsening shortness of breath and required reintubation and placement on mechanical ventilator. This morning she is resting comfortably on the ventilator, on assist-control with a rate of 26, tidal vitamins 450, FiO2 50% and PEEP of 5. Blood gas showed pO2 of 144, pCO2 44, and pH of 7.37 and this was done on FiO2 of 100% in the it had since been cut back to 50%. She is currently on propofol at 45 mics per kilo per minute, nitroglycerin is at 5 mics per kilo per minute, and liters head is at 8 mics per minute. Today's chest x-ray shows right lower lobe pleural effusion, and atelectasis, and interstitial edema. Patient remains on IV diuretics at 40 mg every 12 hours, and she is in negative 1096 mL net fluid balance over the last 24 hours. Is in sinus mechanism, no arrhythmias overnight. On 10/02/2020 patient seen in follow-up in the intensive care unit, she was successfully weaned and extubated yesterday, tolerating extubation quite well so far, she is on 3 L of oxygen, and her pulse ox is 93-97%, afebrile, hemodynamically she is stable. She is sitting up in the recliner, in no acute distress, breathing comfortably, no complaint of chest pain. No acute events overnight, she remains on diuretics at 40 mg every 12 hours, she is in -2.8 L over the last 24 hours. Today's chest x-ray showing increasing small right pleural effusion, and decrease pulmonary interstitial prominence and bibasilar airspace opacities, mild cardiomegaly. She is in sinus mechanism. She remains on Plavix, aspirin, and high-dose Lipitor 80 mg daily, lisinopril and Imdur. On 10/03/2020 patient seen in follow-up in intensive care unit. She is awake and alert, oriented, in no acute distress, breathing comfortably, she is currently at 2 L of oxygen, pulse ox is 94%, she's been afebrile, blood pressure has been stable through the night, yesterday her systolic blood pressure was in the mid 70s through the day, we switched her IV Lasix to oral Lasix to 40 mg daily, today's chest x-ray is pending. She is on minimal supplemental oxygen, no complaints of shortness of breath, no complaints of chest pain. Patient is in -1.3 L over last 24 hours. Her blood pressure meds were held last night. Patient remains on dual antiplatelet therapy with aspirin and Plavix, Lopressor 50 mg twice daily, Imdur 30 mg daily, lisinopril 20 mg twice daily, although March 10 milligrams daily Progress note dated 10/04/2020. The patient is again seen in the ICU, room 250. Is currently on room air. She's got no IV fluids. She's actually just waiting for a bed on the cardiac floor, 3 S. The patient's doing well without major issues or complaints. She been this way now for a couple of days. Lab data includes a white count 7.9, hemoglobin 9, hematocrit 27.8, platelet count which is normal. Sodium is 132, potassium 4, chloride 98, CO2 28, anion gap 6, BUN 16, creatinine 0.73. Magnesium is 1.5. Microbiology is negative. No recent chest x-ray to review. Objective - Vital Signs Vital signs: Vital Signs Temp 98.2 F 10/04/20 08:00 Pulse 70 10/04/20 08:00 Resp 20 10/04/20 08:00 BP 127/53 10/04/20 08:00 Pulse Ox 97 10/04/20 08:00 Intake & Output 10/03/20 10/04/20 10/04/20 18:59 06:59 18:59 Intake Total 0 500 200 Output Total 1425 350 890 Balance -1425 150 -690 Weight 112.2 kg 109.7 kg Intake: IV 0 0 0.9 0 0 Intake, IV Titration 200 Amount Magnesium Sulfate-D5w Pmx 200 1 gm In Dextrose/Water 1 100ml.bag @ 100 mls/hr IVPB Q1H [facility] Rx#: [id number] Oral 500 Output: Urine 1425 350 890 Other: Voiding Method Indwelling Catheter Bedside Commode Bedside Commode # Bowel Movements 1 ABP, PAP, CO, CI - Last Documented Arterial Blood Pressure 140/50 - Exam No acute distress, oriented 3. No supplemental oxygen. Saturations 97%. HEENT examination is grossly unremarkable. Neck supple. Full range of motion. No adenopathy thyromegaly or neck vein distention. Cardiovascular examination reveals regular rhythm rate. S1-S2 normal. No S3 or S4. No discernible murmur noted. Heart sounds are distant. Heart rate 70 bpm. Lungs reveal bibasilar crackles. No wheezes or rhonchi. Breath sounds equal bilaterally. Abdomen soft bowel sounds are heard. No masses or tenderness. Extremities are intact. No cyanosis clubbing or edema. Right lower extremity cast. Skin is without rash or lesion. Neurologic examination is brief but nonfocal. - Labs CBC & Chem 7: 10/04/20 03:30 10/04/20 03:30 Labs: Abnormal Lab Results - Last 24 Hours (Table) 10/03/20 10/03/20 10/03/20 Range/Units 11:42 16:58 22:43 RBC (3.80-5.40) m/uL Hgb (11.4-16.0) gm/dL Hct (34.0-46.0) % MCV (80.0-100.0) fL MCH (25.0-35.0) pg RDW (11.5-15.5) % Sodium (137-145) mmol/L Glucose (74-99) mg/dL POC Glucose (mg/dL) 161 H 183 H 150 H (75-99) mg/dL Magnesium (1.6-2.3) mg/dL 10/04/20 10/04/20 10/04/20 Range/Units 03:30 03:30 06:54 RBC 3.60 L (3.80-5.40) m/uL Hgb 9.0 L (11.4-16.0) gm/dL Hct 27.8 L (34.0-46.0) % MCV 77.2 L (80.0-100.0) fL MCH 24.9 L (25.0-35.0) pg RDW 18.2 H (11.5-15.5) % Sodium 132 L (137-145) mmol/L Glucose 148 H (74-99) mg/dL POC Glucose (mg/dL) 169 H (75-99) mg/dL Magnesium 1.5 L (1.6-2.3) mg/dL Microbiology - Last 24 Hours (Table) 10/01/20 00:13 Gram Stain - Final Sputum Sputum Culture - Final Assessment and Plan Assessment: #1. Acute on chronic hypoxic respiratory failure related to acute exacerbation of systolic CHF, requiring intubation and placement on mechanical ventilator on 09/30/2020 in the brine room laborer for that PTCA of the left circumflex, extubated on 09/30/2020 in the ICU, and reintubated later on 09/30/2020. Patient was weaned and extubated again on 10/01/2020. #2. Coronary artery disease, status post PTCA of the left circumflex, on 09/30/2020, on Plavix 75 mg, aspirin 81 mg, and Lipitor 80 mg. #3. Unstable angina. #4. Previous history of PCI of the LAD. #5. Chronic CHF with EF of 35-40%. #6. Hypertension. #7. Hyperlipidemia. #8. COPD home oxygen at 2 L at bedtime, and previous history of smoking. #9. Diabetes mellitus type 2 with diabetic neuropathy. #10. Nonhealing diabetic ulcer of the right lower extremity. #11. Previous history of DVT. #12. Chronic kidney disease, unspecified. #13. Previous history of pneumonia with empyema status post surgical decortication. Plan: Plan dated 10/04/2020. Currently, the patient's doing very well. The patient is ready for discharge to the cardiac floor or 3 S. She's been ready for this for a couple days now. Clinically she's got no complaints. Her breathing status and hemodynamic status is very stable. She is currently not receiving any supplemental oxygen. No IV fluids. We will see the patient in the future, only as needed. No additional recommendations at this time. Time with Patient: Less than 30
--- NOTE | 2020-10-04 10:28 | P.PN ---
Subjective Progress Note Date: 10/04/20 HISTORY OF PRESENT ILLNESS: This is a 75 year old female with a past medical history significant for coronary artery disease, COPD, diabetes mellitus, DVT, hypertension, and hyperlipidemia. Patient follows in the office with Dr. Mccullough. We have been asked to see the patient in consultation for chest pain. Patient examined at the bedside in the emergency room. Patient states she has been having chest pain over the past 3-4 days intermittently. She states this morning the pain was the worst that it has been and was not going away. She states the pain was in the middle of her chest and felt like a tight squeezing sensation. She denies radiation of the pain. She reports diaphoresis. Patient reports shortness of breath as well. She does wear home o2 at night. She states she took nitro this morning with minimal relief in her pain. EKG reveals sinus mechanism with ST depression in inferior and lateral leads. Chest xray correlate for CHF exacerbation as there is cardiomegaly with tiny bilateral pleural effusions and mild interstitial edema on background chronic changes. Laboratory data: WBC 13.1. Hemoglobin 10.0. Platelet count 351. Sodium 136. Potassium 5.2. BUN 37. Creatinine 1.30. troponin negative 1. Current home cardiac medications include lisinopril 20 mg twice a day, hydralazine 25 mg twice a day, Aldactone 25 mg daily, Ranexa 500 mg twice a day, metoprolol titrate 50 mg twice a day, isosorbide dinitrate 30mg daily, Lasix 40 mg twice a day, Plavix 75 mg daily, Lipitor 80 mg daily, and aspirin 81 mg daily Most recent echocardiogram obtained June 2020 revealed ejection fraction 35- 40% Cardiac catheterization history: 07/01/[address] Mccullough. Patient underwent stenting to the circumflex. Cath also revealed patent stent to the L AD. Total occlusion of RCA which is chronic. 10/01/2020 Patient examined this morning at the bedside. She remains in the ICU. She underwent cardiac cath yesterday with angioplasty to the circumflex which had critical in-stent restenosis. Patient is intubated this morning. Plans are to extubate today per pulmonary medicine. She remains on IV nitro and levophed. 10/02/2020 Patient examined this morning in the ICU. Patient was extubated yesterday. She is on 3L NC with oxygen saturations greater than 92%. Blood pressure 104/39. She remains off vasopressors. She remains on Lasix 40 mg IV every 12 hours. Chest x-ray this morning reveals increasing small right pleural effusion. Mild cardiomegaly which is stable. Decreased pulmonary interstitial prominence and bibasilar airspace opacities. Fluid balance over the last 24 hours is -[id number]. 10/03/2020 Patient examined this morning at the bedside. She remains in the ICU, awaiting a bed on 3S. She states she is feeling well. Denies chest pain or pressure. She reports her shortness of breath is improving. She did get a little short of breath when walking from the chair to the bed. She has been using oxygen intermittently. She remains off vasopressors. Blood pressure was on the lower side yesterday but today is within normal limits. 10/04/2020 Patient examined this morning. She remains in the ICU, awaiting a bed on 3S. She is sitting up in the chair. She denies shortness of breath. She states she had an episode of chest discomfort this morning after eating breakfast, which did not last very long and was relieved with putting her oxygen on. She currently denies chest discomfort. She remains on oral lasix. She has been ambulating in the hallway. Vital signs stable. PHYSICAL EXAM: VITAL SIGNS: Reviewed. GENERAL: Well-developed in no acute distress. HEENT: Head is normocephalic. Pupils are equal, round. Sclerae anicteric. Mucous membranes of the mouth are moist. Neck supple. No JVD or thyromegaly LUNGS: Respirations even and unlabored. Lungs diminished bilaterally. HEART: Regular rate and rhythm. S1 and S2 heard. EXTREMITIES: Normal range of motion. No clubbing or cyanosis. Peripheral pulses intact. Trace bilateral lower extremity edema. ASSESSMENT: Unstable angina, s/p balloon angioplasty to circumflex Coronary artery disease, s/p recent PCI to circumflex and previous PCI to LAD Acute on chronic systolic heart failure, EF 35-40% Hypertension Hyperlipidemia COPD Diabetes mellitus Nonhealing diabetic ulcer of right lower extremity PLAN: Continue current cardiac medications Continue oral lasix Daily weights Accurate I&O Monitor kidney function Patient may be discharged home today from a cardiac standpoint Follow up outpatient with Dr. Mccullough Nurse practitioner note has been reviewed by physician. Signing provider agrees with the documented findings, assessment, and plan of care. Objective - Vital Signs Vital signs: Vital Signs Temp 98.2 F 10/04/20 08:00 Pulse 70 10/04/20 08:00 Resp 20 10/04/20 08:00 BP 127/53 10/04/20 08:00 Pulse Ox 97 10/04/20 08:00 Intake & Output 10/03/20 10/04/20 10/04/20 18:59 06:59 18:59 Intake Total 0 500 200 Output Total 1425 350 890 Balance -1425 150 -690 Weight 112.2 kg 109.7 kg Intake: IV 0 0 0.9 0 0 Intake, IV Titration 200 Amount Magnesium Sulfate-D5w Pmx 200 1 gm In Dextrose/Water 1 100ml.bag @ 100 mls/hr IVPB Q1H [facility] Rx#: [id number] Oral 500 Output: Urine 1425 350 890 Other: Voiding Method Indwelling Catheter Bedside Commode Bedside Commode # Bowel Movements 1 ABP, PAP, CO, CI - Last Documented Arterial Blood Pressure 140/50 - Labs CBC & Chem 7: 10/04/20 03:30 10/04/20 03:30 Labs: Abnormal Lab Results - Last 24 Hours (Table) 10/03/20 10/03/20 10/03/20 Range/Units 11:42 16:58 22:43 RBC (3.80-5.40) m/uL Hgb (11.4-16.0) gm/dL Hct (34.0-46.0) % MCV (80.0-100.0) fL MCH (25.0-35.0) pg RDW (11.5-15.5) % Sodium (137-145) mmol/L Glucose (74-99) mg/dL POC Glucose (mg/dL) 161 H 183 H 150 H (75-99) mg/dL Magnesium (1.6-2.3) mg/dL 10/04/20 10/04/20 10/04/20 Range/Units 03:30 03:30 06:54 RBC 3.60 L (3.80-5.40) m/uL Hgb 9.0 L (11.4-16.0) gm/dL Hct 27.8 L (34.0-46.0) % MCV 77.2 L (80.0-100.0) fL MCH 24.9 L (25.0-35.0) pg RDW 18.2 H (11.5-15.5) % Sodium 132 L (137-145) mmol/L Glucose 148 H (74-99) mg/dL POC Glucose (mg/dL) 169 H (75-99) mg/dL Magnesium 1.5 L (1.6-2.3) mg/dL Microbiology - Last 24 Hours (Table) 10/01/20 00:13 Gram Stain - Final Sputum Sputum Culture - Final
[2020-10-04 11:34] LABS: Glucose,Whole Blood 209 mg/dL (75-99)
[2020-10-04 13:35] VITALS: BP 117/59; PULSE 62; RESP 19; TEMP 98.3
--- NOTE | 2020-10-04 14:14 | PN ---
PROGRESS NOTE DATE OF SERVICE: 10/04/2020 REASON FOR FOLLOWUP: Bilateral diabetic foot plantar ulcer, no cellulitis. INTERVAL HISTORY: The patient is afebrile. The patient is breathing comfortably. The patient denies having any chest pain, shortness of breath. Occasional cough. No abdominal pain and no pain to bilateral foot wound area. PHYSICAL EXAMINATION: Blood pressure 127/53 with a pulse of 70, temperature 98.2. She is 97% on 2 L nasal cannula. General description is an elderly female up in the chair in no distress. RESPIRATORY SYSTEM: Unlabored breathing, clear to auscultation anteriorly. HEART: S1, S2. Regular rate and rhythm. ABDOMEN: Soft, no tenderness. Right foot plantar wound has significant decreased in size, no redness, no drainage. LABS: Hemoglobin 9, white count 7.9, BUN of 16, creatinine 0.73. DIAGNOSTIC IMPRESSION AND PLAN: Patient with bilateral plantar diabetic foot ulcer with no evidence of any cellulitis. Local care with dry Aquacel Silver dressing. [facility] for application of total contact cast. No need for antibiotic on discharge. MMODL / IJN: [id number] /
[2020-10-04 16:35] LABS: Glucose,Whole Blood 157 mg/dL (75-99)
[2020-10-04] MEDS ORDERED: SYMBICORT 160-4.5 MCG INHALER INHALATION SCH (20:00)
--- NOTE | 2020-10-09 10:24 | ECHOF ---
Referral Reason:chf MEASUREMENTS -------- HEIGHT: 170.2 cm WEIGHT: 112.5 kg BP: 122/48 IVSd: 1.4 cm (0.6 - 1.1) LVIDd: 4.1 cm (3.9 - 5.3) LVPWd: 1.6 cm (0.6 - 1.1) IVSs: 2.3 cm LVIDs: 3.6 cm LVPWs: 1.7 cm Ao Diam: 3.1 cm (2.0 - 3.7) AV Cusp: 2.0 cm (1.5 - 2.6) LA Diam: 3.7 cm (2.7 - 3.8) MV EXCURSION: 21.171 mm (> 18.000) MV EF SLOPE: 63 mm/s (70 - 150) EPSS: 1.1 cm MV E Dorian: 0.68 m/s MV DecT: 255 ms MV A Dorian: 0.75 m/s MV E/A Ratio: 0.90 RAP: 5.00 mmHg RVSP: 12.23 mmHg FINDINGS -------- This was a technically difficult study with suboptimal views. The left ventricular size is normal. There is moderate concentric left ventricular hypertrophy. O verall left ventricular systolic function is moderately impaired with, an EF between 35 - 40 %. The right ventricle is normal in size. The left atrial size is normal. The right atrial size is normal. Lumason used The aortic valve is trileaflet and appears structurally normal. The mitral valve is normal. There is trace mitral regurgitation. The tricuspid valve appears structurally normal. Trace tricuspid regurgitation present. Right kaya tricular systolic pressure is normal at < 35 mmHg. There is no pulmonic regurgitation present. The aortic root size is normal. IVC Not well visulized. There is no pericardial effusion. CONCLUSIONS -------- 1. The left ventricular size is normal. 2. There is moderate concentric left ventricular hypertrophy. 3. There is trace mitral regurgitation. 4. Trace tricuspid regurgitation present. 5. There is no pericardial effusion. ELECTROCARDIOGRAPH TECHNICIAN: Nathalie Acosta, [facility]
== END 2020-10-04 18:06 | disposition home or self-care (01) | DRG 250 ==
LOC: EC 11:31 → 3SCARD 12:50 → 2SICU 14:51
PROVIDERS: ADMIT Family Medicine; ATTEND Family Medicine
PROC: B2101ZZ Fluoroscopy of Single Coronary Artery using Low Osmolar Contrast (ICD-10-PCS; 2020-09-30)
PROC: B41F1ZZ Fluoroscopy of Right Lower Extremity Arteries using Low Osmolar Contrast (ICD-10-PCS; 2020-09-30)
PROC: 5A1945Z Respiratory Ventilation, 24-96 Consecutive Hours (ICD-10-PCS; 2020-09-30)
PROC: 0BH17EZ Insertion of Endotracheal Airway into Trachea, Via Natural or Artificial Opening (ICD-10-PCS; 2020-09-30)
PROC: B41F1ZZ Fluoroscopy of Right Lower Extremity Arteries using Low Osmolar Contrast (ICD-10-PCS; 2020-09-30)
PROC: 02703ZZ Dilation of Coronary Artery, One Artery, Percutaneous Approach (ICD-10-PCS; principal; 2020-09-30 19:20)
PROC: 4A023N7 Measurement of Cardiac Sampling and Pressure, Left Heart, Percutaneous Approach (ICD-10-PCS; 2020-09-30 19:20)
DX: T82.855A Stenosis of coronary artery stent, initial encounter (principal); J96.21 Acute and chronic respiratory failure with hypoxia; I50.23 Acute on chronic systolic (congestive) heart failure; I25.110 Atherosclerotic heart disease of native coronary artery with unstable angina pectoris; I13.0 Hypertensive heart and chronic kidney disease with heart failure and stage 1 through stage 4 chronic kidney disease, or unspecified chronic kidney disease; L97.919 Non-pressure chronic ulcer of unspecified part of right lower leg with unspecified severity; I42.9 Cardiomyopathy, unspecified; J98.11 Atelectasis; E11.622 Type 2 diabetes mellitus with other skin ulcer; E11.621 Type 2 diabetes mellitus with foot ulcer; L97.519 Non-pressure chronic ulcer of other part of right foot with unspecified severity; L97.529 Non-pressure chronic ulcer of other part of left foot with unspecified severity; E11.22 Type 2 diabetes mellitus with diabetic chronic kidney disease; E11.42 Type 2 diabetes mellitus with diabetic polyneuropathy; J44.9 Chronic obstructive pulmonary disease, unspecified; N18.30 Chronic kidney disease, stage 3 unspecified; Z79.4 Long term (current) use of insulin; Z20.822 Contact with and (suspected) exposure to COVID-19; Y83.1 Surgical operation with implant of artificial internal device as the cause of abnormal reaction of the patient, or of later complication, without mention of misadventure at the time of the procedure; R00.1 Bradycardia, unspecified; I25.82 Chronic total occlusion of coronary artery; I44.7 Left bundle-branch block, unspecified; G47.33 Obstructive sleep apnea (adult) (pediatric); E78.5 Hyperlipidemia, unspecified; K29.70 Gastritis, unspecified, without bleeding; K52.9 Noninfective gastroenteritis and colitis, unspecified; K21.9 Gastro-esophageal reflux disease without esophagitis; F40.240 Claustrophobia; G25.81 Restless legs syndrome; M19.90 Unspecified osteoarthritis, unspecified site; I25.2 Old myocardial infarction; Z99.81 Dependence on supplemental oxygen; Z95.5 Presence of coronary angioplasty implant and graft; Z90.49 Acquired absence of other specified parts of digestive tract; Z91.041 Radiographic dye allergy status; Z88.1 Allergy status to other antibiotic agents; Z88.8 Allergy status to other drugs, medicaments and biological substances; Z79.02 Long term (current) use of antithrombotics/antiplatelets; Z79.899 Other long term (current) drug therapy; Z79.82 Long term (current) use of aspirin; Z79.51 Long term (current) use of inhaled steroids; Z87.19 Personal history of other diseases of the digestive system; Z87.891 Personal history of nicotine dependence; Z86.010 Personal history of colon polyps; Z86.718 Personal history of other venous thrombosis and embolism; Z87.01 Personal history of pneumonia (recurrent); Z80.0 Family history of malignant neoplasm of digestive organs; Z82.49 Family history of ischemic heart disease and other diseases of the circulatory system; E11.40 Type 2 diabetes mellitus with diabetic neuropathy, unspecified; N18.9 Chronic kidney disease, unspecified
CPT/HCPCS: 29700; 36415; 71045; 71046; 80048; 80053; 80061; 82805; 83735; 83880; 84100; 84484; 85025; 85610; 85730; 87070; 87205; 87635; 92920; 93005; 93306; 93458; 94002; 94003; 94640; 96360; 99291

== ENCOUNTER 2020-12-01 20:01 | Inpatient (IN) | payer MEDICARE, OTHER ==
[2020-12-01] MEDS ORDERED: ASPIRIN 81 MG PO STA (20:15)
[2020-12-01] MEDS ORDERED: NITROGLYCERIN SL TABS 0.4 MG TAB SUBLINGUAL STA ×2 (20:47→20:53)
[2020-12-01 21:21] LABS: Anisocytosis Slight; Basophils % (A) 0 %; Eosinophils # (A) 0.2 k/uL (0-0.7); Eosinophils % (A) 2 %; HCT 29.4 % (34.0-46.0); HGB 9.8 gm/dL (11.4-16.0); Hypochromasia Slight; Lymphocytes # (A) 2.5 k/uL (1.0-4.8); Lymphocytes % (A) 25 %; MCH 24.8 pg (25.0-35.0); MCHC 33.3 g/dL (31.0-37.0); MCV 74.4 fL (80.0-100.0); Mean Platelet Volume 7.2; Microcytosis Moderate; Monocytes # (A) 0.5 k/uL (0-1.0); Monocytes % (A) 5 %; Neutrophils # (A) 6.7 k/uL (1.3-7.7); Neutrophils % (A) 66 %; Platelet Count 357 k/uL (150-450); RBC 3.95 m/uL (3.80-5.40); RDW 16.8 % (11.5-15.5); WBC 10.2 k/uL (3.8-10.6)
[2020-12-01 21:38] LABS: INR 0.9 (<1.2); Partial Thromboplastin Time 22.5 sec (22.0-30.0); Prothrombin Time 9.6 sec (9.0-12.0)
--- NOTE | 2020-12-01 21:49 | XR ---
EXAMINATION TYPE: XR chest 2V DATE OF EXAM: 12/01/2020 COMPARISON: 10/02/2020 HISTORY: Chest pain TECHNIQUE: 2 views FINDINGS: There is no heart failure nor confluent pneumonic infiltrate. There are chest leads. There is no pleural effusion or pneumothorax. There is coarsening of the lung markings. IMPRESSION: Coarse interstitial lung markings suggestive of pulmonary fibrosis similar to last exam. No heart failure.
[2020-12-01 22:00] LABS: Albumin 4.4 g/dL (3.5-5.0); Calcium 9.8 mg/dL (8.4-10.2); Total Bilirubin 0.2 mg/dL (0.2-1.3); Total Protein 7.1 g/dL (6.3-8.2)
[2020-12-01] MEDS ORDERED: MORPHINE SULFATE 4 MG/ML SYRINGE IVP STA (22:21)
[2020-12-01] MEDS ORDERED: NALOXONE 0.4 MG/ML 1 ML VIAL IV PRN (22:47)
[2020-12-01] MEDS ORDERED: ACETAMINOPHEN TAB 325 MG TAB PO PRN (22:47)
[2020-12-01] MEDS ORDERED: SODIUM CHLORIDE 0.9% 500 ML 500 ML IV ONE (23:07)
--- NOTE | 2020-12-01 23:43 | ED ---
General Adult HPI - General Chief complaint: Chest Pain Stated complaint: chest pain,SOB,headache Time Seen by Provider: 12/01/20 20:10 Source: patient, RN notes reviewed, old records reviewed Mode of arrival: ambulatory Limitations: no limitations - History of Present Illness Initial comments: She is a 75-year-old female with a past medical history of asthma, CAD, heart failure, COPD, diabetes, multiple cardiac stents, hypertension, unstable angina who presents emergency Department complaining of one-day history of chest pain and unstable angina. Patient states that chest pain started yesterday. It has been progressively worsening over the last week but since yesterday and this morning, she is been having worsening substernal chest pain across both chest. She nurses mild dyspnea with it. She is on 2 L nasal cannula at home at baseline. Patient did have myocardial infarction last year in November. She said multiple cardiac caths as well as multiple cardiac stents. Most recent cardiac cath was in September of this year which resulted in restenosis of the left circumflex coronary artery with balloon angioplasty. Patient states that the chest pain resolved with nitro, which she takes commonly at home, however has been more persistent since last night which is why she percents emergency department at this time. She denies any nausea, abdominal pain, vomiting. She has any headaches or weakness. She has no other acute complaint at this time. Chest pain worsens with activity, which is her typical presentation. - Related Data Home Medications Medication Instructions Recorded Confirmed Cholecalciferol [Vitamin D3 (25 1,000 unit PO DAILY 02/26/15 12/01/20 Mcg = 1000 Iu)] Clopidogrel [Plavix] 75 mg PO DAILY 09/05/15 12/01/20 Dulaglutide [Trulicity] 1.5 mg SQ KISER 08/15/19 12/01/20 Insulin Aspart Protam & Aspart 30 unit SQ BID 08/15/19 12/01/20 [NovoLOG MIX 70-30 Flexpen] Atorvastatin [Lipitor] 80 mg PO HS 02/09/20 12/01/20 metFORMIN HCL 1,000 mg PO BID 02/09/20 12/01/20 HYDROcodone/APAP 7.5-325MG [[place] 1 tab PO Q6H 04/12/20 12/01/20 7.5-325] Nitroglycerin Sl Tabs [Nitrostat] 0.4 mg SL Q5M PRN 04/12/20 12/01/20 Budesonide/Formoterol Fumarate 2 puff INHALATION RT-BID 09/30/20 12/01/20 [Symbicort 160-4.5 Mcg Inhaler] lisinopriL [Zestril] 20 mg PO BID 09/30/20 12/01/20 Isosorbide Mononitrate ER [Imdur] 60 mg PO DAILY 12/01/20 12/01/20 Metoclopramide [Reglan] 10 mg PO QID PRN 12/01/20 12/01/20 Metoprolol Tartrate [Lopressor] 75 mg PO BID 12/01/20 12/01/20 Sucralfate [Carafate] 1 gm PO QID 12/01/20 12/01/20 Tiotropium 18 Mcg/Puff [Spiriva] 1 puff INHALATION RT-BID 12/01/20 12/01/20 hydrALAZINE HCL [Apresoline] 50 mg PO BID 12/01/20 12/01/20 rOPINIRole HCL [Requip] 4 mg PO TID 12/01/20 12/01/20 Previous Rx's Medication Instructions Recorded Montelukast Sodium [Singulair] 10 mg PO HS #30 tab 10/25/15 Ranolazine [Ranexa] 500 mg PO Q12HR #60 tab.er.12h 11/08/19 Aspirin 81 mg PO DAILY chew 04/16/20 Pantoprazole [Protonix] 40 mg PO AC-BID 30 Days #60 07/08/20 tablet. Spironolactone [Aldactone] 25 mg PO DAILY 90 Days #90 tab 07/08/20 Furosemide [Lasix] 40 mg PO DAILY tab 10/04/20 Allergies Allergy/AdvReac Type Severity Reaction Status Date / Time amoxicillin [From Augmentin] Allergy Rash/Hives Verified 12/01/20 23:27 clavulanic acid Allergy Rash/Hives Verified 12/01/20 23:27 [From Augmentin] metronidazole [From Flagyl] Allergy Nausea & Verified 12/01/20 23:27 Vomiting adhesive tape AdvReac bruises,"paper Verified 12/01/20 23:27 tape is ok" albuterol AdvReac Rapid Verified 12/01/20 23:27 Heart Rate stress test injection Allergy Anaphylaxis Uncoded 12/01/20 20:06 Review of Systems ROS Statement: Those systems with pertinent positive or pertinent negative responses have been documented in the HPI. Review of Systems: CONST: Denies fever EYES: Denies blurry vision ENT: Denies nasal congestion C/V: Endorses chest pain RESP: Endorses dyspnea GI: Denies abdominal pain : Denies dysuria SKIN: Denies rash. MSK: Denies joint pain. NEURO: Denies headache ROS Other: All systems not noted in ROS Statement are negative. Past Medical History Past Medical History: Asthma, Coronary Artery Disease (CAD), Heart Failure, COPD, Diabetes Mellitus, Deep Vein Thrombosis (DVT), GERD/Reflux, Hyperlipidemia, Hypertension, Myocardial Infarction (LA), Osteoarthritis (OA), Pneumonia, Renal Disease, Skin Disorder, Sleep Apnea/CPAP/BIPAP Additional Past Medical History / Comment(s): Other hx: MIs with last LA 11/2019 with cardiogenic shock/pulmonary edema/respiratory failure, cardiomyopathy, NIDDM type II, neuropathy bilateral feet, bilateral diabetic foot ulcers, past cellulitis, pneumonias, past R lung pne with empyema/surgery, gastritis, colitis/frequent diarrhea, benign colon polyps, renal disease stage III, IRA with no device used d/t severe clausterphobia, home oxygen at 2L/NC at HS, occasional lower leg edema, RLS, Last Myocardial Infarction Date:: 2020 History of Any Multi-Drug Resistant Organisms: None Reported Past Surgical History: Appendectomy, Breast Surgery, Cholecystectomy, Heart Catheterization, Heart Catheterization With Stent Additional Past Surgical History / Comment(s): PCI with stents, R lung thoracotomy/decortication for empyema, bilateral feet/sores debrided, L breast benign bx, colonoscopy/benign polypectomy, EGD Past Anesthesia/Blood Transfusion Reactions: No Reported Reaction Additional Past Anesthesia/Blood Transfusion Reaction / Comment(s): severe claustrophobia Date of Last Stent Placement:: 11/27/19 Past Psychological History: No Psychological Hx Reported Smoking Status: Former smoker Past Alcohol Use History: None Reported Past Drug Use History: None Reported - Past Family History Brother(s) Family Medical History: Cancer Additional Family Medical History / Comment(s): Colon cancer Father Family Medical History: Chest Pain / Angina Additional Family Medical History / Comment(s): Father of a LA at the age of 77yrs. Mother Family Medical History: Chest Pain / Angina Additional Family Medical History / Comment(s): Mother of a LA at the age of 74yrs. General Exam - General Exam Comments Initial Comments: General: Appears in no acute distress. HEAD: Normal with no signs of head trauma. EYES: PERRLA, EOMI, conjunctiva normal, no discharge. ENT: Hearing grossly intact, normal oropharynx. RESPIRATORY: Clear breath sounds bilaterally. No wheezes, rales, or rhonchi. C/V: Regular rate and rhythm. S1 and S2 auscultated, no edema, peripheral pulses 2+ and intact throughout ABD: Abd is soft, nontender, nondistended EXT: Normal range of motion, no obvious deformity SKIN: No rashes or lesions observed on exposed skin. NEURO: Alert and oriented 4. No focal sensory or strength deficits. Limitations: no limitations Course Vital Signs 12/01/20 12/01/20 20:04 22:45 Temperature 98.5 F Pulse Rate 83 85 Respiratory 16 16 Rate Blood Pressure 148/66 138/46 O2 Sat by Pulse 100 96 Oximetry Medical Decision Making - Medical Decision Making Based on the patient's presentation and physical exam, she is likely experiencing her typical unstable angina. We will obtain a cardiac workup including troponin, EKG, chest x-ray. Repeat EKG was also ordered. She will be connected to continuous chronic monitoring will she is here in the department. She was given a sublingual nitroglycerin at her request. Patient was also missed her morphine for pain management. She was restarted on her home oxygen 2 L nasal. She was in agreement with this plan. Laboratory studies are remarkable for mild hyponatremia of 129. Patient has an AK I with an elevated creatinine of 2.31 and BUN of 98. Patient has a microcytic anemia of 9.8. Troponin is negative. EKG showed no acute ischemic changes but chronic ischemic changes as detailed in the EKG documentation. Chest x-ray revealed no acute cardiopulmonary process. On reevaluation, patient is feeling improved but is still having mild substernal chest pain. [facility]-the patient therefore would like to admitted to the hospital, considering she also has a pretty cheery and an AK I. She was in agreement with this plan. Patient was administered 1 L fluid bolus. I consult to cardiology, Dr. Caro to inform him of the patient, as he performed last cardiac cath in the patient has the chronic ischemic changes on EKG. He agreed to assess the patient in the morning. I contacted the patient's PCP, Dr. Grande who accepted the admission. Patient was therefore admitted and serous condition. - Lab Data Result diagrams: 12/01/20 20:15 12/01/20 20:15 Lab Results 12/01/20 12/01/20 12/01/20 Range/Units 20:15 20:15 20:15 WBC 10.2 (3.8-10.6) k/uL RBC 3.95 (3.80-5.40) m/uL Hgb 9.8 L (11.4-16.0) gm/dL Hct 29.4 L (34.0-46.0) % MCV 74.4 L (80.0-100.0) fL MCH 24.8 L (25.0-35.0) pg MCHC 33.3 (31.0-37.0) g/dL RDW 16.8 H (11.5-15.5) % Plt Count 357 (150-450) k/uL MPV 7.2 Neutrophils % 66 % Lymphocytes % 25 % Monocytes % 5 % Eosinophils % 2 % Basophils % 0 % Neutrophils # 6.7 (1.3-7.7) k/uL Lymphocytes # 2.5 (1.0-4.8) k/uL Monocytes # 0.5 (0-1.0) k/uL Eosinophils # 0.2 (0-0.7) k/uL Basophils # 0.0 (0-0.2) k/uL Hypochromasia Slight Anisocytosis Slight Microcytosis Moderate PT 9.6 (9.0-12.0) sec INR 0.9 (<1.2) APTT 22.5 (22.0-30.0) sec Sodium 129 L (137-145) mmol/L Potassium 5.0 (3.5-5.1) mmol/L Chloride 94 L (98-107) mmol/L Carbon Dioxide 20 L (22-30) mmol/L Anion Gap 15 mmol/L BUN 98 H (7-17) mg/dL Creatinine 2.31 H (0.52-1.04) mg/dL Est GFR (CKD-EPI)AfAm 23 (>60 ml/min/1.73 sqM) Est GFR (CKD-EPI)NonAf 20 (>60 ml/min/1.73 sqM) Glucose 121 H (74-99) mg/dL Calcium 9.8 (8.4-10.2) mg/dL Magnesium 2.0 (1.6-2.3) mg/dL Total Bilirubin 0.2 (0.2-1.3) mg/dL AST 22 (14-36) U/L ALT 19 (4-34) U/L Alkaline Phosphatase 103 (38-126) U/L Troponin I (0.000-0.034) ng/mL Total Protein 7.1 (6.3-8.2) g/dL Albumin 4.4 (3.5-5.0) g/dL 12/01/20 Range/Units 20:15 WBC (3.8-10.6) k/uL RBC (3.80-5.40) m/uL Hgb (11.4-16.0) gm/dL Hct (34.0-46.0) % MCV (80.0-100.0) fL MCH (25.0-35.0) pg MCHC (31.0-37.0) g/dL RDW (11.5-15.5) % Plt Count (150-450) k/uL MPV Neutrophils % % Lymphocytes % % Monocytes % % Eosinophils % % Basophils % % Neutrophils # (1.3-7.7) k/uL Lymphocytes # (1.0-4.8) k/uL Monocytes # (0-1.0) k/uL Eosinophils # (0-0.7) k/uL Basophils # (0-0.2) k/uL Hypochromasia Anisocytosis Microcytosis PT (9.0-12.0) sec INR (<1.2) APTT (22.0-30.0) sec Sodium (137-145) mmol/L Potassium (3.5-5.1) mmol/L Chloride (98-107) mmol/L Carbon Dioxide (22-30) mmol/L Anion Gap mmol/L BUN (7-17) mg/dL Creatinine (0.52-1.04) mg/dL Est GFR (CKD-EPI)AfAm (>60 ml/min/1.73 sqM) Est GFR (CKD-EPI)NonAf (>60 ml/min/1.73 sqM) Glucose (74-99) mg/dL Calcium (8.4-10.2) mg/dL Magnesium (1.6-2.3) mg/dL Total Bilirubin (0.2-1.3) mg/dL AST (14-36) U/L ALT (4-34) U/L Alkaline Phosphatase (38-126) U/L Troponin I <0.012 (0.000-0.034) ng/mL Total Protein (6.3-8.2) g/dL Albumin (3.5-5.0) g/dL - EKG Data -: EKG Interpreted by Me EKG Comments: 12-lead Electrocardiogram Interpretation Note EKG was reviewed and interpreted by myself. 12-lead ECG performed at 2017 is interpreted by me as revealing normal sinus rhythm with first-degree AV block at a rate of 86 beats per minute. Left axis deviation. MI interval is 230 ms, QRS duration is 110 ms, QTc is 445 ms.. Patient does have diffuse ST segment depressions in the anterior lateral distribution in leads 2, 3, aVF, V5 through V6. Chest has mild ST segment elevations in lead aVR. This is seen on prior EKGs multiple times and appears to be a chronic finding.. . By my interpretation, this EKG reveals chronic changes suggestive of chronic ischemia which fits her cardiac picture. Repeat EKG will be obtained to assess for dynamic changes. 12-lead Electrocardiogram Interpretation Note EKG was reviewed and interpreted by myself. 12-lead ECG performed at 2208 is interpreted by me as revealing normal sinus rhythm with first-degree AV block at a rate of 86 beats per minute. Left axis deviation. MI interval is 236 ms, QR uatsdin is 112 ms, QTc is 445 ms.. Patient has repeated ST segment depressions in the inferolateral distribution, leads 2, 3, aVF, V3 through V6. Patient has has mild ST segment elevation in lead aVR. This is the same as the prior EKG as well as the previous EKGs in our system for multiple months ago. There are no acute dynamic changes. By my interpretation this EKG is non-d iagnostic for acute ischemia. EKG reveals chronic ischemic changes secondary to her cardiac history. Disposition Clinical Impression: Unstable angina, Chest pain, JAZZ (acute kidney injury), Diabetes, Hyponatremia, Oxygen dependent, Debility Disposition: ADMITTED IP TO THIS HOSP Condition: Serious
[2020-12-01] MEDS ORDERED: SODIUM CHLORIDE 0.9% 500 ML 500 ML IV STA (23:51)
[2020-12-02] MEDS ORDERED: NON FORMULARY DRUG (Dulaglutide [Trulicity] 1.5 MG/0.5 ML Pen.Injctr) SQ SCH ×2 (00:15→19:00)
[2020-12-02] MEDS: MORPHINE SULFATE 4 MG/ML SYRINGE IV PRN ×3 (01:14→20:46)
[2020-12-02] MEDS: SUCRALFATE 1 GM TAB PO SCH ×4 (06:35→20:46)
[2020-12-02] MEDS: PANTOPRAZOLE 40 MG TABLET PO SCH ×2 (06:35→18:18)
[2020-12-02 06:40] LABS: Glucose,Whole Blood 103 mg/dL (75-99)
[2020-12-02] MEDS: INSULN ASP PRT/INSULIN ASPART 100 UNIT/ML 10 ML VIAL SQ SCH ×2 (06:44→18:18)
[2020-12-02] MEDS ORDERED: IPRATROPIUM-ALBUTEROL 3 ML NEB INHALATION SCH (08:00)
[2020-12-02] MEDS: SYMBICORT 160-4.5 MCG INHALER INHALATION SCH ×2 (08:53→19:46)
[2020-12-02] MEDS: IPRATROPIUM 0.5 MG/2.5 ML NEBU INHALATION SCH ×4 (08:53→19:46)
[2020-12-02] MEDS ORDERED: RANOLAZINE 500 MG TAB.ER.12H PO SCH (09:00)
[2020-12-02] MEDS: RANOLAZINE 500 MG TAB.ER.12H PO SCH ×2 (09:14→20:52)
[2020-12-02] MEDS: CLOPIDOGREL 75 MG TAB PO SCH (09:15)
[2020-12-02] MEDS: rOPINIRole HCL 4 MG TABLET PO SCH ×3 (09:15→20:47)
[2020-12-02] MEDS: ISOSORBIDE MONONITRATE ER 60 MG TAB.ER.24H PO SCH (09:15)
[2020-12-02] MEDS: hydrALAZINE HCL 50 MG TAB PO SCH ×2 (09:15→20:47)
[2020-12-02] MEDS: ASPIRIN 81 MG PO SCH (09:15)
[2020-12-02] MEDS: METOPROLOL TARTRATE 25 MG TAB PO SCH ×2 (09:16→20:46)
[2020-12-02] MEDS: FUROSEMIDE 40 MG TAB PO SCH (09:16)
[2020-12-02] MEDS: lisinopriL 20 MG TAB PO SCH ×2 (09:16→20:46)
[2020-12-02] MEDS: SPIRONOLACTONE 25 MG TAB PO SCH (09:16)
--- NOTE | 2020-12-02 10:29 | P.CRDCN ---
History of Present Illness Consult date: 12/02/20 History of present illness: HISTORY OF PRESENT ILLNESS: This is a 75-year-old female with a past medical history significant for coronary artery disease, COPD, diabetes mellitus, DVT, hypertension, hyperlipidemia, and nonhealing wound to the left lower extremity. Patient follows in the office with Dr. Mccullough. We have been asked to see the patient in consultation for chest pain. Patient examined at the bedside. Patient states yesterday morning she woke up with sharp pains in the middle of her chest. She states when she has chest pain that usually is a pressure sensation so this was different than her previous episodes of chest pain. She denies any radiation of the pain. She denied any dizziness or lightheadedness. She denied feeling diaphoretic. She denied having any nausea at that time. However she states she was recently started on Cipro for her left lower extremity wound which caused her to have some GI symptoms. Patient states she took a nitro and within 5 or 10 minutes her pain resolved. She states over the course of the day yesterday anytime she got up and would walk from her living room to her kitchen she would experience chest pain that was relieved when she would rest. Patient states she wears oxygen at home but only at night and has been considering wearing this during the day as well. Patient also notes that she has been taking nitro on a daily basis for some time now. She does report taking 5 nitro yesterday. She states she usually takes a nitro before she gets up in walks around at home. EKG reveals sinus mechanism with diffuse ST depression. Unchanged from previous EKGs. Chest xray coarse interstitial lung markings suggestive of pulmonary fibrosis similar to last exam. No heart failure. Laboratory data: WBC 10.2. Hemoglobin 9.8. Platelet count 357. Sodium 129. Potassium 5.0. BUN 98. Creatinine 2.31. Troponin negative 3. Current home cardiac medications include Lipitor 80 mg daily, metoprolol tartrate 75 mg twice a day, spironolactone 25 mg daily, Ranexa 500 mg every 12 hours, lisinopril 20 mg twice a day, hydralazine 50 mg twice a day, Imdur 60 mg daily, Lasix 40 mg daily, Plavix 75 mg daily, and aspirin 81 mg daily Most recent echocardiogram obtained in September 2020 reveals ejection fraction 35- 40%. Trace mitral regurgitation. Trace tricuspid regurgitation. Cardiac catheterization history: September 2020 revealing balloon angioplasty of the ostial left circumflex with reduction of stenosis from 99% to 0%. Patent stent in the proximal left anterior descending artery. Known chronic total occlusion of the RCA. REVIEW OF SYSTEMS: At the time of my exam: CONSTITUTIONAL: Denies fever or chills. HEENT: Denies blurred vision, vision changes, or eye pain. Denies hemoptysis CARDIOVASCULAR: Denies chest pain. Denies orthopnea. Denies PND. Denies palpitations RESPIRATORY: Denies shortness of breath. GASTROINTESTINAL: Denies abdominal pain. Denies nausea or vomiting. HEMATOLOGIC: Denies bleeding disorders. GENITOURINARY: Denies any blood in urine. SKIN: Denies pruitis. Denies rash. PHYSICAL EXAM: VITAL SIGNS: Reviewed. GENERAL: Well-developed in no acute distress. HEENT: Head is normocephalic. Pupils are equal, round. Sclerae anicteric. Mucous membranes of the mouth are moist. Neck supple. No JVD or thyromegaly LUNGS: Respirations even and unlabored. Lungs diminished bilaterally. HEART: Regular rate and rhythm. S1 and S2 heard. ABDOMEN: Soft. Nondistended. Nontender. EXTREMITIES: Normal range of motion. No clubbing or cyanosis. Peripheral pulses intact. No lower extremity edema. Cast to left lower extremity noted. NEUROLOGIC: Awake and alert. Oriented x 3. 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 If patient continues to have chest pain, will consider cardiac cath pending renal function Further recommendations pending patient course Nurse practitioner note has been reviewed by physician. Signing provider agrees with the documented findings, assessment, and plan of care. 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, cardiomyopathy, NIDDM type II, neuropathy bilateral feet, bilateral diabetic foot ulcers, past cellulitis, pneumonias, past R lung pne with empyema/surgery, gastritis, colitis/frequent diarrhea, benign colon polyps, renal disease stage III, IRA with no device used d/t severe clausterphobia, home oxygen at 2L/NC at HS, occasional lower leg edema, RLS, Last Myocardial Infarction Date:: 2020 History of Any Multi-Drug Resistant Organisms: None Reported Past Surgical History: Appendectomy, Breast Surgery, Cholecystectomy, Heart Catheterization, Heart Catheterization With Stent Additional Past Surgical History / Comment(s): PCI with stents, R lung thoraco erica/decortication for empyema, bilateral feet/sores debrided, L breast benign bx, colonoscopy/benign polypectomy, EGD Past Anesthesia/Blood Transfusion Reactions: No Reported Reaction Additional Past Anesthesia/Blood Transfusion Reaction / Comment(s): severe claustrophobia Date of Last Stent Placement:: 11/27/19 Past Psychological History: No Psychological Hx Reported Smoking Status: Former smoker Past Alcohol Use History: None Reported Past Drug Use History: None Reported - Past Family History Brother(s) Family Medical History: Cancer Additional Family Medical History / Comment(s): Colon cancer Father Family Medical History: Chest Pain / Angina Additional Family Medical History / Comment(s): Father of a MA at the age of 77yrs. Mother Family Medical History: Chest Pain / Angina Additional Family Medical History / Comment(s): Mother of a MA at the age of 74yrs. Medications and Allergies Home Medications Medication Instructions Recorded Confirmed Type Cholecalciferol [Vitamin D3 (25 1,000 unit PO DAILY 02/26/15 12/01/20 History Mcg = 1000 Iu)] Clopidogrel [Plavix] 75 mg PO DAILY 09/05/15 12/01/20 History Montelukast Sodium [Singulair] 10 mg PO HS #30 tab 10/25/15 12/01/20 Rx Dulaglutide [Trulicity] 1.5 mg SQ LEONARDO 08/15/19 12/01/20 History Insulin Aspart Protam & Aspart 30 unit SQ BID 08/15/19 12/01/20 History [NovoLOG MIX 70-30 Flexpen] Ranolazine [Ranexa] 500 mg PO Q12HR #60 tab.er.12h 11/08/19 12/01/20 Rx Atorvastatin [Lipitor] 80 mg PO HS 02/09/20 12/01/20 History metFORMIN HCL 1,000 mg PO BID 02/09/20 12/01/20 History HYDROcodone/APAP 7.5-325MG [[place] 1 tab PO Q6H 04/12/20 12/01/20 History 7.5-325] Nitroglycerin Sl Tabs [Nitrostat] 0.4 mg SL Q5M PRN 04/12/20 12/01/20 History Aspirin 81 mg PO DAILY chew 04/16/20 12/01/20 Rx Pantoprazole [Protonix] 40 mg PO AC-BID 30 Days #60 07/08/20 12/01/20 Rx tablet. Spironolactone [Aldactone] 25 mg PO DAILY 90 Days #90 tab 07/08/20 12/01/20 Rx Budesonide/Formoterol Fumarate 2 puff INHALATION RT-BID 09/30/20 12/01/20 History [Symbicort 160-4.5 Mcg Inhaler] lisinopriL [Zestril] 20 mg PO BID 09/30/20 12/01/20 History Furosemide [Lasix] 40 mg PO DAILY tab 10/04/20 12/01/20 Rx Isosorbide Mononitrate ER [Imdur] 60 mg PO DAILY 12/01/20 12/01/20 History Metoclopramide [Reglan] 10 mg PO QID PRN 12/01/20 12/01/20 History Metoprolol Tartrate [Lopressor] 75 mg PO BID 12/01/20 12/01/20 History Sucralfate [Carafate] 1 gm PO QID 12/01/20 12/01/20 History Tiotropium 18 Mcg/Puff [Spiriva] 1 puff INHALATION RT-BID 12/01/20 12/01/20 History hydrALAZINE HCL [Apresoline] 50 mg PO BID 12/01/20 12/01/20 History rOPINIRole HCL [Requip] 4 mg PO TID 12/01/20 12/01/20 History Allergies Allergy/AdvReac Type Severity Reaction Status Date / Time amoxicillin [From Augmentin] Allergy Rash/Hives Verified 12/01/20 23:27 clavulanic acid Allergy Rash/Hives Verified 12/01/20 23:27 [From Augmentin] metronidazole [From Flagyl] Allergy Nausea & Verified 12/01/20 23:27 Vomiting adhesive tape AdvReac bruises,"paper Verified 12/01/20 23:27 tape is ok" albuterol AdvReac Rapid Verified 12/01/20 23:27 Heart Rate stress test injection Allergy Anaphylaxis Uncoded 12/01/20 20:06 Physical Exam Vitals: Vital Signs Temp Pulse Pulse Resp BP BP Pulse Ox 12/02/20 04:00 97.8 F 78 19 132/79 100 12/02/20 02:00 76 18 12/02/20 00:00 98.3 F 76 18 122/75 98 12/01/20 23:28 98.3 F 76 18 122/75 98 12/01/20 22:45 85 16 138/46 96 12/01/20 20:04 98.5 F 83 16 148/66 100 Intake and Output 12/01/20 12/02/20 12/02/20 22:59 06:59 14:59 Intake Total 0 Output Total 800 Balance -800 0 Intake: Oral 0 Output: Urine 800 Other: Voiding Method Toilet # Voids 1 Weight 123.377 kg 111.4 kg Results 12/01/20 20:15 12/01/20 20:15 Cardiac Enzymes 12/01/20 12/01/20 12/02/20 Range/Units 20:15 20:15 00:05 AST 22 (14-36) U/L Troponin I <0.012 0.015 (0.000-0.034) ng/mL 12/02/20 Range/Units 02:39 AST (14-36) U/L Troponin I 0.023 (0.000-0.034) ng/mL Coagulation 12/01/20 Range/Units 20:15 PT 9.6 (9.0-12.0) sec APTT 22.5 (22.0-30.0) sec CBC 12/01/20 Range/Units 20:15 WBC 10.2 (3.8-10.6) k/uL RBC 3.95 (3.80-5.40) m/uL Hgb 9.8 L (11.4-16.0) gm/dL Hct 29.4 L (34.0-46.0) % Plt Count 357 (150-450) k/uL Comprehensive Metabolic Panel 12/01/20 Range/Units 20:15 Sodium 129 L (137-145) mmol/L Potassium 5.0 (3.5-5.1) mmol/L Chloride 94 L (98-107) mmol/L Carbon Dioxide 20 L (22-30) mmol/L BUN 98 H (7-17) mg/dL Creatinine 2.31 H (0.52-1.04) mg/dL Glucose 121 H (74-99) mg/dL Calcium 9.8 (8.4-10.2) mg/dL AST 22 (14-36) U/L ALT 19 (4-34) U/L Alkaline Phosphatase 103 (38-126) U/L Total Protein 7.1 (6.3-8.2) g/dL Albumin 4.4 (3.5-5.0) g/dL Current Medications Generic Name Dose Route Start Last Admin Trade Name Freq PRN Reason Stop Dose Admin Acetaminophen 650 mg 12/01/20 22:47 Acetaminophen Tab 325 Mg Tab PO Q6HR PRN Mild Pain or Fever > 100.5 Aspirin 81 mg 12/02/20 09:00 Aspirin 81 Mg PO DAILY [facility] Atorvastatin Calcium 80 mg 12/02/20 21:00 Atorvastatin 80 Mg Tab PO HS [facility] Budesonide/Formoterol Fumarate 2 puff 12/02/20 08:00 Symbicort 160-4.5 Mcg Inhaler INHALATION RT-BID [facility] Clopidogrel Bisulfate 75 mg 12/02/20 09:00 Clopidogrel 75 Mg Tab PO DAILY ANDREW Furosemide 40 mg 12/02/20 09:00 Furosemide 40 Mg Tab PO DAILY ANDREW Hydralazine HCl 50 mg 12/02/20 09:00 Hydralazine Hcl 50 Mg Tab PO BID ANDREW Insulin Aspart 30 unit 12/02/20 07:30 12/02/20 06:44 Insuln Asp Prt/Insulin Aspart 100 Unit/Ml 10 Ml Vial SQ Not Given AC-BID ANDREW Ipratropium [place] 0.5 mg 12/02/20 09:00 Ipratropium 0.5 Mg/2.5 Ml Nebu INHALATION QID [facility] Isosorbide Mononitrate 60 mg 12/02/20 09:00 Isosorbide Mononitrate Er 60 Mg Tab.Er.24h PO DAILY [facility] Lisinopril 20 mg 12/02/20 09:00 Lisinopril 20 Mg Tab PO BID [facility] Metformin HCl 1,000 mg 12/02/20 09:00 Metformin 500 Mg Tab PO BID [facility] Metoprolol Tartrate 75 mg 12/02/20 09:00 Metoprolol Tartrate 25 Mg Tab PO BID [facility] Montelukast Sodium 10 mg 12/02/20 21:00 Montelukast 10 Mg Tab PO HS [facility] Morphine Sulfate 4 mg 12/01/20 22:47 12/02/20 04:59 Morphine Sulfate 4 Mg/Ml Syringe IV 4 mg Q4HR PRN Administration Severe Pain Naloxone HCl 0.2 mg 12/01/20 22:47 Naloxone 0.4 Mg/Ml 1 Ml Vial IV Q2M PRN Opioid Reversal Non-Formulary Medication 1.5 mg 12/02/20 00:15 Dulaglutide [Trulicity] SQ [email or web address] [facility] Pantoprazole Sodium 40 mg 12/02/20 07:30 12/02/20 06:35 Pantoprazole 40 Mg Tablet PO 40 mg AC-BID [facility] Administration Ranolazine 500 mg 12/02/20 09:00 Ranolazine 500 Mg Tab.Er.12h PO Q12HR [facility] Ropinirole HCl 4 mg 12/02/20 09:00 Ropinirole Hcl 4 Mg Tablet PO TID [facility] Spironolactone 25 mg 12/02/20 09:00 Spironolactone 25 Mg Tab PO DAILY [facility] Sucralfate 1 gm 12/02/20 07:30 12/02/20 06:35 Sucralfate 1 Gm Tab PO 1 gm ACHS [facility] Administration Intake and Output 12/01/20 12/02/20 12/02/20 22:59 06:59 14:59 Intake Total 0 Output Total 800 Balance -800 0 Intake: Oral 0 Output: Urine 800 Other: Voiding Method Toilet # Voids 1 Weight 123.377 kg 111.4 kg 12/01/20 20:15 12/01/20 20:15
[2020-12-02 11:31] LABS: Glucose,Whole Blood 119 mg/dL (75-99)
[2020-12-02 11:40] VITALS: RESP 18
[2020-12-02] MEDS: metFORMIN 500 MG TAB PO SCH ×2 (12:50→20:46)
[2020-12-02 16:59] LABS: Glucose,Whole Blood 139 mg/dL (75-99)
[2020-12-02 20:01] LABS: Glucose,Whole Blood 115 mg/dL (75-99)
[2020-12-02] MEDS: ATORVASTATIN 80 MG TAB PO SCH (20:46)
[2020-12-02] MEDS: MONTELUKAST 10 MG TAB PO SCH (20:53)
[2020-12-03 06:23] LABS: Glucose,Whole Blood 92 mg/dL (75-99)
--- NOTE | 2020-12-03 06:48 | HP ---
HISTORY AND PHYSICAL 75-year-old white female came in with atypical chest pain. History of coronary artery disease, COPD, diabetes mellitus, DVT, hypertension, dyslipidemia, nonhealing wound to the left extremity, came to the hospital with chest pain, sharp in the middle of her chest, pressure sensation. No radiation. No dizziness. She does have heartburn and nausea but she just started on Cipro for left lower extremity wound, which has caused her to have GI symptoms. She took 5 nitroglycerin yesterday. EKG shows diffuse ST depression. Chest x-ray, pulmonary fibrosis. LABS: Hemoglobin 9.8, white count 10.2 sodium 129, potassium 5.0, BUN 98, creatinine 2.3. MEDICATION: Atorvastatin 80 mg today, metoprolol 75 b.i.d. spironolactone 25 mg daily, Ranexa 500 q.12 hours, lisinopril 20 b.i.d., hydralazine 50 b.i.d., Imdur 60 daily, Plavix 75 mg daily, aspirin 81 mg daily. Recent echo 35-40 percent ejection fraction, October 03, 2020 with an angioplasty of the circumflex. REVIEW OF SYSTEMS: 14-point review of systems negative except for mentioned in HPI. PHYSICAL EXAMINATION: Vital signs stable afebrile. ENDOCRINE: BMI is over 4. PSYCH: Fair mood and affect. NEUROLOGIC: Cranial nerves intact. Alert and oriented x3. CARDIOVASCULAR: S1, S2. LUNGS: Clear. GI: Soft. EXTREMITIES: Range of motion is decent. Has a cast on the left leg from below the knee to the foot. NEUROLOGIC: Alert and oriented x3. ASSESSMENT: 1. Exertional chest pain, coronary artery disease, status post PTCA, chronic systolic heart failure. 2. Acute kidney injury. 3. Hyponatremia. 4. Hypertension. 5. Dyslipidemia. 6. Diabetes mellitus. 7. History DVT. 8. Chronic nonhealing wound of the left lower extremity. 9. GERD. Monitor renal function. Will increase his Ranexa to a 1000 q.12. Rehydrate the patient, treat for GERD. Possible cardiac catheterization. Prognosis guarded. MMODL / IJN: [id number] /
[2020-12-03] MEDS: INSULN ASP PRT/INSULIN ASPART 100 UNIT/ML 10 ML VIAL SQ SCH ×3 (07:23→17:41)
[2020-12-03] MEDS: PANTOPRAZOLE 40 MG TABLET PO SCH ×3 (07:23→17:42)
[2020-12-03] MEDS: SUCRALFATE 1 GM TAB PO SCH ×5 (07:23→21:03)
[2020-12-03 07:57] LABS: Calcium 10.3 mg/dL (8.4-10.2); Potassium 5.1 mmol/L (3.5-5.1)
[2020-12-03] MEDS: SYMBICORT 160-4.5 MCG INHALER INHALATION SCH ×2 (08:40→20:01)
[2020-12-03] MEDS: IPRATROPIUM 0.5 MG/2.5 ML NEBU INHALATION SCH ×4 (08:40→20:02)
[2020-12-03] MEDS: METOPROLOL TARTRATE 25 MG TAB PO SCH ×2 (09:02→21:02)
[2020-12-03] MEDS: ASPIRIN 81 MG PO SCH (09:02)
[2020-12-03] MEDS: hydrALAZINE HCL 50 MG TAB PO SCH ×2 (09:03→21:03)
[2020-12-03] MEDS: SPIRONOLACTONE 25 MG TAB PO SCH (09:03)
[2020-12-03] MEDS: FUROSEMIDE 40 MG TAB PO SCH (09:03)
[2020-12-03] MEDS: CLOPIDOGREL 75 MG TAB PO SCH (09:03)
[2020-12-03] MEDS: ISOSORBIDE MONONITRATE ER 60 MG TAB.ER.24H PO SCH (09:03)
[2020-12-03] MEDS: rOPINIRole HCL 4 MG TABLET PO SCH ×3 (09:06→21:03)
[2020-12-03] MEDS: metFORMIN 500 MG TAB PO SCH ×2 (09:11→09:47)
[2020-12-03] MEDS: lisinopriL 20 MG TAB PO SCH ×2 (09:46→21:03)
[2020-12-03] MEDS: RANOLAZINE 500 MG TAB.ER.12H PO SCH ×2 (09:46→21:03)
--- NOTE | 2020-12-03 10:55 | P.PN ---
Subjective Progress Note Date: 12/03/20 HISTORY OF PRESENT ILLNESS: This is a 75-year-old female with a past medical history significant for coronary artery disease, COPD, diabetes mellitus, DVT, hypertension, hyperlipidemia, and nonhealing wound to the left lower extremity. Patient follows in the office with Dr. Mccullough. We have been asked to see the patient in consultation for chest pain. Patient examined at the bedside. Patient states yesterday morning she woke up with sharp pains in the middle of her chest. She states when she has chest pain that usually is a pressure sensation so this was different than her previous episodes of chest pain. She denies any radiation of the pain. She denied any dizziness or lightheadedness. She denied feeling diaphoretic. She denied having any nausea at that time. However she states she was recently started on Cipro for her left lower extremity wound which caused her to have some GI symptoms. Patient states she took a nitro and within 5 or 10 minutes her pain resolved. She states over the course of the day yesterday anytime she got up and would walk from her living room to her kitchen she would experience chest pain that was relieved when she would rest. Patient states she wears oxygen at home but only at night and has been considering wearing this during the day as well. Patient also notes that she has been taking nitro on a daily basis for some time now. She does report taking 5 nitro yesterday. She states she usually takes a nitro before she gets up in walks around at home. EKG reveals sinus mechanism with diffuse ST depression. Unchanged from previous EKGs. Chest xray coarse interstitial lung markings suggestive of pulmonary fibrosis s imilar to last exam. No heart failure. Laboratory data: WBC 10.2. Hemoglobin 9.8. Platelet count 357. Sodium 129. Potassium 5.0. BUN 98. Creatinine 2.31. Troponin negative 3. Current home cardiac medications include Lipitor 80 mg daily, metoprolol tartrate 75 mg twice a day, spironolactone 25 mg daily, Ranexa 500 mg every 12 hours, lisinopril 20 mg twice a day, hydralazine 50 mg twice a day, Imdur 60 mg daily, Lasix 40 mg daily, Plavix 75 mg daily, and aspirin 81 mg daily Most recent echocardiogram obtained in September 2020 reveals ejection fraction 35- 40%. Trace mitral regurgitation. Trace tricuspid regurgitation. Cardiac catheterization history: September 2020 revealing balloon angioplasty of the ostial left circumflex with reduction of stenosis from 99% to 0%. Patent stent in the proximal left anterior descending artery. Known chronic total occlusion of the RCA. 12/03/2020 Patient examined this morning at the bedside. Patient denies chest pain or pressure. She reports shortness of breath with exertion. Kidney function has improved today. Creatinine 1.36. She states she has been up ambulating in her room without difficulty. PHYSICAL EXAM: VITAL SIGNS: Reviewed. GENERAL: Well-developed in no acute distress. HEENT: Head is normocephalic. Pupils are equal, round. Sclerae anicteric. Mucous membranes of the mouth are moist. Neck supple. No JVD or thyromegaly LUNGS: Respirations even and unlabored. Lungs diminished bilaterally. HEART: Regular rate and rhythm. S1 and S2 heard. ABDOMEN: Soft. Nondistended. Nontender. EXTREMITIES: Normal range of motion. No clubbing or cyanosis. Peripheral pulses intact. No lower extremity edema. Cast to left lower extremity noted. NEUROLOGIC: Awake and alert. Oriented x 3. 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 She is to follow up outpatient with Dr. Mccullough Nurse practitioner note has been reviewed by physician. Signing provider agrees with the documented findings, assessment, and plan of care. Objective - Vital Signs Vital signs: Vital Signs Temp 98.4 F 12/03/20 08:00 Pulse 66 12/03/20 08:00 Resp 18 12/03/20 08:00 BP 124/58 12/03/20 08:00 Pulse Ox 100 12/03/20 08:00 Intake & Output 12/02/20 12/03/20 12/03/20 18:59 06:59 18:59 Intake Total 480 120 0 Output Total 1250 300 Balance -770 -180 0 Weight 107.9 kg Intake: Oral 480 120 0 Output: Urine 1250 300 Other: Voiding Method Toilet # Voids 1 - Labs CBC & Chem 7: 12/01/20 20:15 12/03/20 07:19 Labs: Abnormal Lab Results - Last 24 Hours (Table) 12/02/20 12/02/20 12/02/20 Range/Units 11:30 16:58 19:59 Sodium (137-145) mmol/L BUN (7-17) mg/dL Creatinine (0.52-1.04) mg/dL POC Glucose (mg/dL) 119 H 139 H 115 H (75-99) mg/dL Calcium (8.4-10.2) mg/dL 12/03/20 Range/Units 07:19 Sodium 135 L (137-145) mmol/L BUN 65 H (7-17) mg/dL Creatinine 1.36 H (0.52-1.04) mg/dL POC Glucose (mg/dL) (75-99) mg/dL Calcium 10.3 H (8.4-10.2) mg/dL
[2020-12-03 11:20] LABS: Glucose,Whole Blood 90 mg/dL (75-99)
--- NOTE | 2020-12-03 12:22 | P.CONS ---
History of Present Illness - Reason for Consult Consult date: 12/03/20 wound care - History of Present Illness this is a 74-year-old patient being seen on 3 S. by the wound care center for nonhealing ulceration to bilateral plantar aspects of the forefoot. Patient currently has a total contact cast in place to her left lower extremity. She is followed at [facility]. Her right plantar ulceration is being treated with absorptive Silver. Total contact cast has been on for a pproximately 6 days. Patient states that she will have it removed tomorrow. She is anticipating to be discharged tomorrow. Patient's past medical history significant for asthma, coronary artery disease, heart failure, COPD, diabetes, acid reflux, hyperlipidemia, hypertension, myocardial infarction, osteoporosis, neuropathy to bilateral feet, and obstructive sleep apnea Review Of Systems: Constitutional: No fever, no chills, no night sweats. No weight change. No weakness, fatigue or lethargy. No daytime sleepiness. Integumentary:reports wounds, no lesions. No rash or pruritus. No unusual bruising. No change in hair or nails. Physical exam: General Appearance: Alert, cooperative, no distress, appears stated age. Skin: See HPI all other Skin color, texture, tugor normal, no rashes or lesions. Neurologic: Alert oriented x3 Assessment/plan: 1. Diabetic foot ulcer right plantar.. Continue with absorptive silver 2. Diabetic foot ulcer left plantar. Total contact cast in place. Patient anticipates discharge tomorrow where she will then call [facility] to have a total contact cast removed. If she is unable to be discharged tomorrow. Please call the wound care center for removal of the total contact cast. thank you for the consultation any questions please contact the wound care center DNP note has been reviewed and discussed with Dr. Hinson and the impression and plan of care has been directed as dictated. 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, cardiomyopathy, NIDDM type II, neuropathy bilateral feet, bilateral diabetic foot ulcers, past cellulitis, pneumonias, past R lung pne with empyema/surgery, gastritis, colitis/frequent diarrhea, benign colon polyps, renal disease stage III, IRA with no device used d/t severe clausterphobia, home oxygen at 2L/NC at HS, occas ional lower leg edema, RLS, Last Myocardial Infarction Date:: 2020 History of Any Multi-Drug Resistant Organisms: None Reported Past Surgical History: Appendectomy, Breast Surgery, Cholecystectomy, Heart Catheterization, Heart Catheterization With Stent Additional Past Surgical History / Comment(s): PCI with stents, R lung thoracotomy/decortication for empyema, bilateral feet/sores debrided, L breast benign bx, colonoscopy/benign polypectomy, EGD Past Anesthesia/Blood Transfusion Reactions: No Reported Reaction Additional Past Anesthesia/Blood Transfusion Reaction / Comm: severe claustrophobia Date of Last Stent Placement:: 11/27/19 Past Psychological History: No Psychological Hx Reported Smoking Status: Former smoker Past Alcohol Use History: None Reported Past Drug Use History: None Reported - Past Family History Brother(s) Family Medical History: Cancer Additional Family Medical History / Comment(s): Colon cancer Father Family Medical History: Chest Pain / Angina Additional Family Medical History / Comment(s): Father of a NE at the age of 77yrs. Mother Family Medical History: Chest Pain / Angina Additional Family Medical History / Comment(s): Mother of a NE at the age of 74yrs. Medications and Allergies Home Medications Medication Instructions Recorded Confirmed Type Cholecalciferol [Vitamin D3 (25 1,000 unit PO DAILY 02/26/15 12/01/20 History Mcg = 1000 Iu)] Clopidogrel [Plavix] 75 mg PO DAILY 09/05/15 12/01/20 History Montelukast Sodium [Singulair] 10 mg PO HS #30 tab 10/25/15 12/01/20 Rx Dulaglutide [Trulicity] 1.5 mg SQ KISER 08/15/19 12/01/20 History Insulin Aspart Protam & Aspart 30 unit SQ BID 08/15/19 12/01/20 History [NovoLOG MIX 70-30 Flexpen] Ranolazine [Ranexa] 500 mg PO Q12HR #60 tab.er.12h 11/08/19 12/01/20 Rx Atorvastatin [Lipitor] 80 mg PO HS 02/09/20 12/01/20 History metFORMIN HCL 1,000 mg PO BID 02/09/20 12/01/20 History HYDROcodone/APAP 7.5-325MG [[place] 1 tab PO Q6H 04/12/20 12/01/20 History 7.5-325] Nitroglycerin Sl Tabs [Nitrostat] 0.4 mg SL Q5M PRN 04/12/20 12/01/20 History Aspirin 81 mg PO DAILY chew 04/16/20 12/01/20 Rx Pantoprazole [Protonix] 40 mg PO AC-BID 30 Days #60 07/08/20 12/01/20 Rx tablet. Spironolactone [Aldactone] 25 mg PO DAILY 90 Days #90 tab 07/08/20 12/01/20 Rx Budesonide/Formoterol Fumarate 2 puff INHALATION RT-BID 09/30/20 12/01/20 History [Symbicort 160-4.5 Mcg Inhaler] lisinopriL [Zestril] 20 mg PO BID 09/30/20 12/01/20 History Furosemide [Lasix] 40 mg PO DAILY tab 10/04/20 12/01/20 Rx Isosorbide Mononitrate ER [Imdur] 60 mg PO DAILY 12/01/20 12/01/20 History Metoclopramide [Reglan] 10 mg PO QID PRN 12/01/20 12/01/20 History Metoprolol Tartrate [Lopressor] 75 mg PO BID 12/01/20 12/01/20 History Sucralfate [Carafate] 1 gm PO QID 12/01/20 12/01/20 History Tiotropium 18 Mcg/Puff [Spiriva] 1 puff INHALATION RT-BID 12/01/20 12/01/20 History hydrALAZINE HCL [Apresoline] 50 mg PO BID 12/01/20 12/01/20 History rOPINIRole HCL [Requip] 4 mg PO TID 12/01/20 12/01/20 History Allergies Allergy/AdvReac Type Severity Reaction Status Date / Time amoxicillin [From Augmentin] Allergy Rash/Hives Verified 12/01/20 23:27 clavulanic acid Allergy Rash/Hives Verified 12/01/20 23:27 [From Augmentin] metronidazole [From Flagyl] Allergy Nausea & Verified 12/01/20 23:27 Vomiting adhesive tape AdvReac bruises,"paper Verified 12/01/20 23:27 tape is ok" albuterol AdvReac Rapid Verified 12/01/20 23:27 Heart Rate stress test injection Allergy Anaphylaxis Uncoded 12/01/20 20:06 Physical Exam Vitals: Vital Signs Temp Pulse Resp BP Pulse Ox 12/03/20 08:00 98.4 F 66 18 124/58 100 12/03/20 03:31 60 18 144/88 99 12/03/20 02:00 70 18 12/03/20 00:00 70 18 124/76 97 12/02/20 20:00 98.2 F 84 18 136/80 98 12/02/20 16:00 82 18 139/67 99 12/02/20 12:24 78 Intake and Output 12/02/20 12/03/20 12/03/20 22:59 06:59 14:59 Intake Total 240 120 0 Output Total 300 Balance -60 120 0 Intake: Oral 240 120 0 Output: Urine 300 Other: Voiding Method Toilet Toilet # Voids 1 Weight 107.9 kg Results CBC & Chem 7: 12/01/20 20:15 12/03/20 07:19 Labs: Abnormal Lab Results - Last 24 Hours (Table) 12/02/20 12/02/20 12/03/20 Range/Units 16:58 19:59 07:19 Sodium 135 L (137-145) mmol/L BUN 65 H (7-17) mg/dL Creatinine 1.36 H (0.52-1.04) mg/dL POC Glucose (mg/dL) 139 H 115 H (75-99) mg/dL Calcium 10.3 H (8.4-10.2) mg/dL Assessment and Plan (1) Diabetes mellitus with foot ulcer Current Visit: No Status: Acute Code(s): E11.621 - TYPE 2 DIABETES MELLITUS WITH FOOT ULCER; L97.509 - NON-PRESSURE CHRONIC ULCER OTH PRT UNSP FOOT W UNSP SEVERITY SNOMED Code(s): 56865780 (2) Non-healing ulcer of left foot with fat layer exposed Current Visit: No Status: Acute Code(s): L97.522 - NON-PRS CHRONIC ULCER OTH PRT LEFT FOOT W FAT LAYER EXPOSED SNOMED Code(s): 231608571 (3) Non-healing ulcer of right foot with fat layer exposed Current Visit: No Status: Acute Code(s): L97.512 - NON-PRS CHRONIC ULCER OTH PRT RIGHT FOOT W FAT LAYER EXPOSED SNOMED Code(s): 836948995
[2020-12-03 16:40] LABS: Glucose,Whole Blood 109 mg/dL (75-99)
[2020-12-03 20:27] LABS: Glucose,Whole Blood 68 mg/dL (75-99)
[2020-12-03 20:27] LABS: Glucose,Whole Blood 66 mg/dL (75-99)
[2020-12-03 20:39] LABS: Glucose,Whole Blood 71 mg/dL (75-99)
[2020-12-03] MEDS: ATORVASTATIN 80 MG TAB PO SCH (21:03)
[2020-12-03] MEDS: MONTELUKAST 10 MG TAB PO SCH (21:03)
[2020-12-03 21:07] LABS: Glucose,Whole Blood 85 mg/dL (75-99)
[2020-12-04] MEDS: metFORMIN 500 MG TAB PO SCH ×2 (00:03→09:12)
--- NOTE | 2020-12-04 00:20 | PN ---
PROGRESS NOTE 75-year-old white female who was admitted for his atypical chest pain. Cardiology was cleared for possible discharge in the morning. Seen by infectious disease doctor, recurrent diabetic foot ulcer continue with absorbable Silver total cast in place on the left foot, discharge tomorrow. Oral antibiotics for discharge. Unclear what Dr. Perez says. PHYSICAL EXAM: Vital signs stable. Afebrile. CARDIOVASCULAR: S1, S2. LUNGS: Clear. GI: Soft.. Cardiology is not going to do any heart catheterization. LABS: Labs reviewed. BUN is 98, creatinine 2.31. Troponin is negative. Creatinine is down to 1.36. She is ambulating with cast on her left foot. PLAN: Will be discharged home tomorrow, to follow up as an outpatient. Treat for GERD. Hold Cipro, which has upset her stomach. Most likely will be discharged home in the morning. MMODL / FELICITASN: [id number] /
[2020-12-04] MEDS: MORPHINE SULFATE 4 MG/ML SYRINGE IV PRN (00:28)
[2020-12-04 06:09] LABS: Glucose,Whole Blood 111 mg/dL (75-99)
[2020-12-04] MEDS: PANTOPRAZOLE 40 MG TABLET PO SCH (06:18)
[2020-12-04] MEDS: SUCRALFATE 1 GM TAB PO SCH ×2 (06:18→12:34)
[2020-12-04] MEDS: SYMBICORT 160-4.5 MCG INHALER INHALATION SCH (07:33)
[2020-12-04] MEDS: IPRATROPIUM 0.5 MG/2.5 ML NEBU INHALATION SCH ×2 (07:36→11:40)
[2020-12-04] MEDS: INSULN ASP PRT/INSULIN ASPART 100 UNIT/ML 10 ML VIAL SQ SCH (09:11)
[2020-12-04] MEDS: SPIRONOLACTONE 25 MG TAB PO SCH (09:12)
[2020-12-04] MEDS: ASPIRIN 81 MG PO SCH (09:12)
[2020-12-04] MEDS: METOPROLOL TARTRATE 25 MG TAB PO SCH (09:12)
[2020-12-04] MEDS: ISOSORBIDE MONONITRATE ER 60 MG TAB.ER.24H PO SCH (09:12)
[2020-12-04] MEDS: CLOPIDOGREL 75 MG TAB PO SCH (09:12)
[2020-12-04] MEDS: RANOLAZINE 500 MG TAB.ER.12H PO SCH (09:12)
[2020-12-04] MEDS: rOPINIRole HCL 4 MG TABLET PO SCH (09:12)
[2020-12-04] MEDS: FUROSEMIDE 40 MG TAB PO SCH (09:13)
[2020-12-04] MEDS: hydrALAZINE HCL 50 MG TAB PO SCH (09:13)
[2020-12-04] MEDS: lisinopriL 20 MG TAB PO SCH (09:13)
[2020-12-04 11:30] LABS: Glucose,Whole Blood 130 mg/dL (75-99)
--- NOTE | 2020-12-04 11:48 | PN ---
PROGRESS NOTE HISTORY: Mrs. Brand is a 75-year-old female with a history of coronary artery disease who presented with symptoms of dyspnea and mild elevation of troponin. She is feeling well this morning. She presented with symptoms of dyspnea and worsening renal function. She had no elevation of her troponin. She is feeling better today. Her breathing is stable. She has no significant chest pain. She denies any dizziness or palpitation. She denies any nausea. MEDICATIONS: She continues to be on aspirin once a day Lipitor 80 mg daily Plavix 75 mg daily, Lasix 40 mg daily, hydralazine 50 mg twice a day, isosorbide mononitrate 50 mg daily, Zestril 20 mg twice a day, metformin 1 gram twice a day, metoprolol tartrate 75 mg twice a day, Ranexa 1 gram twice a day, spironolactone 25 mg daily. PHYSICAL EXAMINATION: Blood pressure 134/70 with a heart rate in the 70s. LUNGS: Clear. HEART: Regular rate rhythm S1, S2. No S3. No rub. ABDOMEN: Soft, nontender, obese. EXTREMITIES: No edema. Left lower extremity wound noted on the left side. IMPRESSION: 1. Symptoms of dyspnea, improving, with no active congestive heart failure at this time. 2. History of coronary artery disease status post stenting of the left main, lad and left circumflex. 3. History of chronic obstructive pulmonary disease. 4. Diabetes mellitus. 5. History of nonhealing wound of the left lower extremity. RECOMMENDATIONS: From the cardiac standpoint, she is stable on her present medical regimen. I would expect that she should be able to be discharged home soon and followed as an outpatient with Dr. Mccullough. MMODL / IJN: [id number] /
[2020-12-04 12:09] VITALS: BP 101/47; PULSE 65; TEMP 97.6
== END 2020-12-04 14:15 | disposition home or self-care (01) | DRG 392 ==
LOC: EC 20:01 → 3SCARD 22:47
PROVIDERS: ADMIT Family Medicine; ATTEND Family Medicine
DX: K21.9 Gastro-esophageal reflux disease without esophagitis (principal); I13.0 Hypertensive heart and chronic kidney disease with heart failure and stage 1 through stage 4 chronic kidney disease, or unspecified chronic kidney disease; I50.32 Chronic diastolic (congestive) heart failure; E87.1 Hypo-osmolality and hyponatremia; N17.9 Acute kidney failure, unspecified; R07.89 Other chest pain; J44.9 Chronic obstructive pulmonary disease, unspecified; D50.9 Iron deficiency anemia, unspecified; E11.22 Type 2 diabetes mellitus with diabetic chronic kidney disease; L97.512 Non-pressure chronic ulcer of other part of right foot with fat layer exposed; Z99.81 Dependence on supplemental oxygen; E11.40 Type 2 diabetes mellitus with diabetic neuropathy, unspecified; E11.621 Type 2 diabetes mellitus with foot ulcer; L97.522 Non-pressure chronic ulcer of other part of left foot with fat layer exposed; G47.33 Obstructive sleep apnea (adult) (pediatric); Z87.01 Personal history of pneumonia (recurrent); N18.30 Chronic kidney disease, stage 3 unspecified; G25.81 Restless legs syndrome; T36.8X5A Adverse effect of other systemic antibiotics, initial encounter; I25.2 Old myocardial infarction; F40.240 Claustrophobia; I44.0 Atrioventricular block, first degree; Z86.010 Personal history of colon polyps; Z79.84 Long term (current) use of oral hypoglycemic drugs; Z86.718 Personal history of other venous thrombosis and embolism; Z88.1 Allergy status to other antibiotic agents; Z88.0 Allergy status to penicillin; Z88.8 Allergy status to other drugs, medicaments and biological substances
CPT/HCPCS: 36415; 71046; 80048; 80053; 83735; 84484; 85025; 85610; 85730; 93005; 94640; 94760; 99285

== ENCOUNTER 2020-12-15 19:13 | Inpatient (IN) | payer MEDICARE, OTHER ==
[2020-12-15] MEDS ORDERED: ASPIRIN 81 MG PO STA (19:34)
[2020-12-15] MEDS ORDERED: HEPARIN SODIUM 1,000 UN/ML (10ML VL) IV ONE (19:35)
--- NOTE | 2020-12-15 19:41 | ED ---
General Adult HPI - General Chief complaint: Chest Pain Stated complaint: Chest pain/pain down left arm Time Seen by Provider: 12/15/20 19:19 Source: patient Mode of arrival: wheelchair Limitations: no limitations - History of Present Illness Initial comments: Dictation was produced using [employer] dictation software. please excuse any grammatical, word or spelling errors. Chief Complaint: 75-year-old female with extensive history of coronary artery disease, heart failure, diabetes presents emergency department for chest pain History of Present Illness: 75-year-old female she presents to the emergency department for chest pain. Patient states that she has extensive history of coronary artery disease. She is had multiple heart attacks in the past. Patient has multiple coronary artery stents. States that today she began expe riencing substernal chest pressure diary down to the left upper extremity. States that her symptoms are similar to heart attack she's had a past. Patient is accompanied by son. She has been in the hospital 7 times this year for chest pain. Most recently back in September patient had cardiac catheterization where she had balloon angioplasty to treat in-stent restenosis. Denies any dyspnea. She took multiple after glycerin today with no relief. Just admitted to the hospital 2 weeks ago for the same thing. She had serial troponins that were found to be negative. Cardiology evaluated the patient and she was discharged with no intervention. The ROS documented in this emergency department record has been reviewed and confirmed by me. Those systems with pertinent positive or negative responses have been documented in the HPI. All other systems are other negative and/or noncontributory. PHYSICAL EXAM: General Impression: Alert and oriented x3, acute distress secondary to pain HEENT: Normocephalic atraumatic, extra-ocular movements intact, pupils equal and reactive to light bilaterally, mucous membranes moist. Cardiovascular: Heart regular rate and rhythm Chest: Able to complete full sentences, no retractions, no tachypnea Abdomen: abdomen soft, non-tender, non-distended, no organomegaly Musculoskeletal: Pulses present and equal in all extremities, no peripheral edema Motor: no focal deficits noted Neurological: CN II-XII grossly intact, no focal motor or sensory deficits noted Skin: Intact with no visualized rashes Psych: Normal affect and mood ED course: 75-year-old female presents to emergency department clinical presentation consistent with acute coronary syndrome. Vital signs upon arrival shows findings within acceptable limits. Repeat EKG was performed 10 minutes later showed no dynamic changes. EKG interpretation: Ventricular rate 98, sinus rhythm,. Interval to 10, QRS 112, QTc 439. No GA prolongation, no QTC prolongation, there are ST depressions and inferior leads and lateral precordial leads. EKG was compared to 12/01/2020. Patient has baseline ST depressions. Her EKG from today is similar to EKG from most recently 12/01/2020. Auditory evaluation obtained. CBC is within acceptable limits. Coag panel is negative. Metabolic panel shows sodium 129 likely secondary to dehydration. Bicarb of 17 with a gap of 14 and elevated renal markers again reflecting dehydration. Glucose level is 308. Troponin is negative. Chest x-ray is nonacute. Patient reevaluated at bedside at 8:30. She states that the morphine helped improve her symptoms. She states that she is chest pain-free and feels at baseline. Patient's EKGs all appear to be similar to most previous admission she was admitted at that time with a negative cardiac workup. She is asymptomatic currently. Patient is agreeable for admission. She is given an aspirin admitted to observation with cardiology consultation. Patient will have cardiac monitoring and serial troponins. - Related Data Home Medications Medication Instructions Recorded Confirmed Clopidogrel [Plavix] 75 mg PO DAILY 09/05/15 12/12/20 Dulaglutide [Trulicity] 1.5 mg SQ KISER 08/15/19 12/12/20 Insulin Aspart Protam & Aspart 30 unit SQ BID 08/15/19 12/12/20 [NovoLOG MIX 70-30 Flexpen] Atorvastatin [Lipitor] 80 mg PO HS 02/09/20 12/12/20 metFORMIN HCL [Glucophage] 1,000 mg PO BID 02/09/20 12/12/20 HYDROcodone/APAP 7.5-325MG [[place] 1 tab PO Q6H PRN 04/12/20 12/12/20 7.5-325] Nitroglycerin Sl Tabs [Nitrostat] 0.4 mg SL Q5M PRN 04/12/20 12/12/20 Budesonide/Formoterol Fumarate 2 puff INHALATION RT-BID 09/30/20 12/12/20 [Symbicort 160-4.5 Mcg Inhaler] lisinopriL [Zestril] 20 mg PO BID 09/30/20 12/12/20 Isosorbide Mononitrate ER [Imdur] 60 mg PO DAILY 12/01/20 12/12/20 Metoclopramide [Reglan] 10 mg PO QID PRN 12/01/20 12/12/20 Metoprolol Tartrate [Lopressor] 75 mg PO BID 12/01/20 12/12/20 Sucralfate [Carafate] 1 gm PO QID 12/01/20 12/12/20 Tiotropium 18 Mcg/Puff [Spiriva] 1 puff INHALATION RT-BID 12/01/20 12/12/20 hydrALAZINE HCL [Apresoline] 50 mg PO BID 12/01/20 12/12/20 rOPINIRole HCL [Requip] 4 mg PO TID 12/01/20 12/12/20 Aspirin EC [Ecotrin] 325 mg PO DAILY 12/15/20 12/15/20 Ferrous Sulfate [Feosol] 325 mg PO DAILY 12/15/20 12/15/20 Previous Rx's Medication Instructions Recorded Montelukast Sodium [Singulair] 10 mg PO HS #30 tab 10/25/15 Ranolazine [Ranexa] 500 mg PO Q12HR #60 tab.er.12h 11/08/19 Pantoprazole [Protonix] 40 mg PO AC-BID 30 Days #60 07/08/20 tablet. Spironolactone [Aldactone] 25 mg PO DAILY 90 Days #90 tab 07/08/20 Furosemide [Lasix] 40 mg PO DAILY tab 10/04/20 Allergies Allergy/AdvReac Type Severity Reaction Status Date / Time amoxicillin [From Augmentin] Allergy Rash/Hives Verified 12/15/20 20:22 cefuroxime Allergy Unknown Verified 12/15/20 20:22 ciprofloxacin [From Cipro] Allergy Unknown Verified 12/15/20 20:22 clavulanic acid Allergy Rash/Hives Verified 12/15/20 20:22 [From Augmentin] doxycycline Allergy Unknown Verified 12/15/20 20:22 metronidazole [From Flagyl] Allergy Nausea & Verified 12/15/20 20:22 Vomiting adhesive tape AdvReac bruises,"paper Verified 12/15/20 20:22 tape is ok" albuterol AdvReac Rapid Verified 12/15/20 20:22 Heart Rate stress test injection Allergy Anaphylaxis Uncoded 12/15/20 20:22 Review of Systems ROS Statement: Those systems with pertinent positive or pertinent negative responses have been documented in the HPI. ROS Other: All systems not noted in ROS Statement are negative. Past Medical History Past Medical History: Asthma, Coronary Artery Disease (CAD), Chest Pain / Angina, Heart Failure, COPD, Diabetes Mellitus, Deep Vein Thrombosis (DVT), GERD/Reflux, Hyperlipidemia, Hypertension, Myocardial Infarction (OR), Osteoarthritis (OA), Pneumonia, Renal Disease, Skin Disorder, Sleep Apnea/CPAP/BIPAP Additional Past Medical History / Comment(s): Other hx: MIs with last OR 11/2019 with cardiogenic shock/pulmonary edema/respiratory failure, cardiomyopathy, NIDDM type II, neuropathy bilateral feet, bilateral diabetic foot ulcers, past cellulitis, pneumonias, past R lung pne with empyema/surgery, gastritis, colitis/frequent diarrhea, benign colon polyps, renal disease stage III, IRA with no device used d/t severe clausterphobia, home oxygen at 2L/NC, occasional lower leg edema, RLS, recent fall with bruising, laquita feet lt foot 2nd toe wound has lt foot cast Last Myocardial Infarction Date:: 2020 History of Any Multi-Drug Resistant Organisms: None Reported Past Surgical History: Appendectomy, Breast Surgery, Cholecystectomy, Heart Catheterization, Heart Catheterization With Stent Additional Past Surgical History / Comment(s): PCI with stents, R lung thoracotomy/decortication for empyema, bilateral feet/sores debrided, L breast benign bx, colonoscopy/benign polypectomy, EGD Past Anesthesia/Blood Transfusion Reactions: No Reported Reaction Additional Past Anesthesia/Blood Transfusion Reaction / Comment(s): severe claustrophobia Date of Last Stent Placement:: 11/27/19 Past Psychological History: No Psychological Hx Reported Smoking Status: Former smoker Past Alcohol Use History: None Reported Past Drug Use History: None Reported - Past Family History Brother(s) Family Medical History: Cancer Additional Family Medical History / Comment(s): Colon cancer Father Family Medical History: Chest Pain / Angina Additional Family Medical History / Comment(s): Father of a OR at the age of 77yrs. Mother Family Medical History: Chest Pain / Angina Additional Family Medical History / Comment(s): Mother of a OR at the age of 74yrs. General Exam Limitations: no limitations Course Vital Signs 12/15/20 12/15/20 19:14 20:08 Temperature 98.8 F Pulse Rate 104 H 95 Respiratory 24 22 Rate Blood Pressure 146/108 O2 Sat by Pulse 98 Oximetry Medical Decision Making - Lab Data Result diagrams: 12/15/20 19:27 12/15/20 19:27 Lab Results 12/15/20 12/15/20 12/15/20 Range/Units 19:27 19:27 19:27 WBC 11.2 H (3.8-10.6) k/uL RBC 4.33 (3.80-5.40) m/uL Hgb 10.6 L (11.4-16.0) gm/dL Hct 33.5 L (34.0-46.0) % MCV 77.2 L (80.0-100.0) fL MCH 24.6 L (25.0-35.0) pg MCHC 31.8 (31.0-37.0) g/dL RDW 16.2 H (11.5-15.5) % Plt Count 315 (150-450) k/uL MPV 7.8 Neutrophils % 63 % Lymphocytes % 27 % Monocytes % 5 % Eosinophils % 3 % Basophils % 0 % Neutrophils # 7.0 (1.3-7.7) k/uL Lymphocytes # 3.0 (1.0-4.8) k/uL Monocytes # 0.6 (0-1.0) k/uL Eosinophils # 0.3 (0-0.7) k/uL Basophils # 0.0 (0-0.2) k/uL Hypochromasia Slight Anisocytosis Slight Microcytosis Slight PT 9.5 (9.0-12.0) sec INR 0.9 (<1.2) APTT 22.9 (22.0-30.0) sec Sodium 129 L (137-145) mmol/L Potassium 5.3 H (3.5-5.1) mmol/L Chloride 98 (98-107) mmol/L Carbon Dioxide 17 L (22-30) mmol/L Anion Gap 14 mmol/L BUN 87 H (7-17) mg/dL Creatinine 1.52 H (0.52-1.04) mg/dL Est GFR (CKD-EPI)AfAm 39 (>60 ml/min/1.73 sqM) Est GFR (CKD-EPI)NonAf 34 (>60 ml/min/1.73 sqM) Glucose 308 H (74-99) mg/dL Calcium 9.7 (8.4-10.2) mg/dL Troponin I (0.000-0.034) ng/mL 12/15/20 Range/Units 19:27 WBC (3.8-10.6) k/uL RBC (3.80-5.40) m/uL Hgb (11.4-16.0) gm/dL Hct (34.0-46.0) % MCV (80.0-100.0) fL MCH (25.0-35.0) pg MCHC (31.0-37.0) g/dL RDW (11.5-15.5) % Plt Count (150-450) k/uL MPV Neutrophils % % Lymphocytes % % Monocytes % % Eosinophils % % Basophils % % Neutrophils # (1.3-7.7) k/uL Lymphocytes # (1.0-4.8) k/uL Monocytes # (0-1.0) k/uL Eosinophils # (0-0.7) k/uL Basophils # (0-0.2) k/uL Hypochromasia Anisocytosis Microcytosis PT (9.0-12.0) sec INR (<1.2) APTT (22.0-30.0) sec Sodium (137-145) mmol/L Potassium (3.5-5.1) mmol/L Chloride (98-107) mmol/L Carbon Dioxide (22-30) mmol/L Anion Gap mmol/L BUN (7-17) mg/dL Creatinine (0.52-1.04) mg/dL Est GFR (CKD-EPI)AfAm (>60 ml/min/1.73 sqM) Est GFR (CKD-EPI)NonAf (>60 ml/min/1.73 sqM) Glucose (74-99) mg/dL Calcium (8.4-10.2) mg/dL Troponin I <0.012 (0.000-0.034) ng/mL Disposition Clinical Impression: Chest pain Disposition: ADMITTED IP TO THIS HOSP Condition: Fair Referrals: Medardo Grande MD [Primary Care Provider] - 1-2 days
[2020-12-15] MEDS ORDERED: MORPHINE SULFATE 4 MG/ML SYRINGE IV STA (19:48)
[2020-12-15 19:59] LABS: Anisocytosis Slight; Basophils % (A) 0 %; Eosinophils # (A) 0.3 k/uL (0-0.7); Eosinophils % (A) 3 %; HCT 33.5 % (34.0-46.0); HGB 10.6 gm/dL (11.4-16.0); Hypochromasia Slight; Lymphocytes % (A) 27 %; MCH 24.6 pg (25.0-35.0); MCHC 31.8 g/dL (31.0-37.0); MCV 77.2 fL (80.0-100.0); Mean Platelet Volume 7.8; Microcytosis Slight; Monocytes # (A) 0.6 k/uL (0-1.0); Monocytes % (A) 5 %; Neutrophils % (A) 63 %; Platelet Count 315 k/uL (150-450); RBC 4.33 m/uL (3.80-5.40); RDW 16.2 % (11.5-15.5); WBC 11.2 k/uL (3.8-10.6)
[2020-12-15] MEDS: HEPARIN SOD,PORK IN 0.45% NACL 25,000 UNIT in 0.45% NACL 1 250ML.BAG IV SCH (20:03)
[2020-12-15 20:04] LABS: Calcium 9.7 mg/dL (8.4-10.2)
--- NOTE | 2020-12-15 20:08 | XR ---
EXAMINATION TYPE: XR chest 2V DATE OF EXAM: 12/15/20201999 COMPARISON: Chest radiograph 12/01/2020 HISTORY: Chest pain radiating down the left arm TECHNIQUE: Frontal and lateral views of the chest are obtained. FINDINGS: Cardiomediastinal silhouette appears unchanged. Atherosclerotic ossifications of the aortic arch are seen. Lungs appear hyperexpanded. No focal consolidation, pleural effusion, or pneumothorax . No acute osseous abnormality. Visualized abdomen appears normal. Coronary stents are seen. IMPRESSION: No acute cardiopulmonary process.
[2020-12-15 20:10] LABS: Potassium 5.3 mmol/L (3.5-5.1)
[2020-12-15 20:22] LABS: INR 0.9 (<1.2); Partial Thromboplastin Time 22.9 sec (22.0-30.0); Prothrombin Time 9.5 sec (9.0-12.0)
[2020-12-15] MEDS ORDERED: MORPHINE SULFATE 4 MG/ML SYRINGE IV PRN (20:24)
[2020-12-15] MEDS: NITROGLYCERIN SL TABS 0.4 MG TAB SUBLINGUAL PRN ×2 (21:04→21:24)
[2020-12-15 21:20] LABS: Glucose,Whole Blood 251 mg/dL (75-99)
[2020-12-15] MEDS ORDERED: NON FORMULARY DRUG (Dulaglutide [Trulicity] 1.5 MG/0.5 ML Pen.Injctr) SQ SCH (22:00)
[2020-12-15] MEDS: ATORVASTATIN 80 MG TAB PO SCH (22:34)
[2020-12-15] MEDS: PANTOPRAZOLE 40 MG TABLET PO SCH (22:34)
[2020-12-15] MEDS: lisinopriL 20 MG TAB PO SCH (22:35)
[2020-12-15] MEDS: MONTELUKAST 10 MG TAB PO SCH (22:35)
[2020-12-15] MEDS: METOPROLOL TARTRATE 25 MG TAB PO SCH (22:35)
[2020-12-15] MEDS: SUCRALFATE 1 GM TAB PO SCH (22:35)
[2020-12-15] MEDS: metFORMIN 500 MG TAB PO SCH (22:35)
[2020-12-15] MEDS: RANOLAZINE 500 MG TAB.ER.12H PO SCH (22:36)
[2020-12-15] MEDS: hydrALAZINE HCL 50 MG TAB PO SCH (22:38)
[2020-12-15] MEDS: rOPINIRole HCL 4 MG TABLET PO SCH (22:38)
[2020-12-15] MEDS: INSULN ASP PRT/INSULIN ASPART 100 UNIT/ML 10 ML VIAL SQ SCH (22:38)
[2020-12-16] MEDS: NITROGLYCERIN SL TABS 0.4 MG TAB SUBLINGUAL PRN (01:17)
[2020-12-16] MEDS: HEPARIN SODIUM 1,000 UN/ML (10ML VL) IV PRN (03:45)
[2020-12-16 06:52] LABS: Glucose,Whole Blood 130 mg/dL (75-99)
[2020-12-16] MEDS ORDERED: HEPARIN SODIUM,PORCINE 2,500 UNIT in SODIUM CHLORIDE 0.9% 250 ML IRRIGATION PRN (07:00)
[2020-12-16] MEDS ORDERED: HEPARIN SODIUM,PORCINE 10,000 UNIT in SODIUM CHLORIDE 0.9% 1,000 ML IRRIGATION PRN (07:00)
[2020-12-16] MEDS: INSULIN ASPART (NovoLOG) 100 UNIT/ML VIAL SQ SCH ×4 (08:27→20:43)
[2020-12-16] MEDS: IPRATROPIUM 0.5 MG/2.5 ML NEBU INHALATION SCH ×4 (08:28→19:17)
[2020-12-16] MEDS ORDERED: NITROGLYCERIN SL TABS 0.4 MG TAB SUBLINGUAL PRN (08:31)
[2020-12-16] MEDS ORDERED: SODIUM CHLORIDE 0.9% 1,000 ML in EMPTY BAG 1 BAG IV ONE (08:31)
[2020-12-16] MEDS ORDERED: ATORVASTATIN 80 MG TAB PO STA (08:31)
[2020-12-16] MEDS ORDERED: ALPRAZolam 0.25 MG TAB PO PRN (08:31)
[2020-12-16] MEDS ORDERED: ALPRAZolam 0.5 MG TAB PO PRN (08:31)
[2020-12-16] MEDS ORDERED: ASPIRIN 325 MG TAB PO STA (08:31)
[2020-12-16] MEDS: lisinopriL 20 MG TAB PO SCH ×2 (08:55→20:38)
[2020-12-16] MEDS: METOPROLOL TARTRATE 25 MG TAB PO SCH ×2 (08:55→20:38)
[2020-12-16] MEDS: RANOLAZINE 500 MG TAB.ER.12H PO SCH ×2 (08:55→20:39)
[2020-12-16] MEDS: SPIRONOLACTONE 25 MG TAB PO SCH (08:55)
[2020-12-16] MEDS: ISOSORBIDE MONONITRATE ER 60 MG TAB.ER.24H PO SCH (08:55)
[2020-12-16] MEDS: SUCRALFATE 1 GM TAB PO SCH ×4 (08:55→20:39)
[2020-12-16] MEDS: rOPINIRole HCL 4 MG TABLET PO SCH ×3 (08:55→20:43)
[2020-12-16] MEDS: FERROUS SULFATE 325 MG TAB PO SCH (08:55)
[2020-12-16] MEDS: metFORMIN 500 MG TAB PO SCH ×3 (08:56→20:49)
[2020-12-16] MEDS: FUROSEMIDE 40 MG TAB PO SCH (08:56)
[2020-12-16] MEDS: hydrALAZINE HCL 50 MG TAB PO SCH ×2 (08:56→20:39)
[2020-12-16] MEDS: PANTOPRAZOLE 40 MG TABLET PO SCH ×2 (08:56→17:02)
[2020-12-16] MEDS ORDERED: ASPIRIN 325 MG TAB PO SCH ×2 (09:00)
[2020-12-16] MEDS: INSULN ASP PRT/INSULIN ASPART 100 UNIT/ML 10 ML VIAL SQ SCH ×2 (09:02→20:45)
[2020-12-16 09:31] LABS: Chol/HDL Ratio 2.21; LDL Cholesterol,Calculated 38.8 mg/dL (0.0-131.0); VLDL Calculation 13.2 mg/dL (5.00-40.00)
[2020-12-16 11:58] LABS: Glucose,Whole Blood 155 mg/dL (75-99)
[2020-12-16] MEDS: SYMBICORT 160-4.5 MCG INHALER INHALATION SCH ×2 (12:36→19:17)
--- NOTE | 2020-12-16 14:12 | CONS ---
CONSULTATION Mrs. Brand is a 75-year-old female with known history of coronary artery disease status post multiple percutaneous revascularization with prior percutaneous revascularization of the left main, the LAD and the left circumflex, who presented to the emergency room with symptoms of severe chest discomfort yesterday that persisted. She was admitted to the hospital for further evaluation. She has underwent her most recent intervention in September of this year and had angioplasty of the ostium of the left circumflex. Her left main LAD stent was patent. The patient was in the hospital a few weeks ago with symptoms of chest discomfort. Her troponins were negative. She was treated medically and done well until this admission. She had associated dyspnea. She had some diaphoresis. No dizziness or palpitation. She has occasional peripheral edema and she has a prior cast on the left side. She has a history of ischemic cardiomyopathy with ejection fraction of 35-40% by echocardiography in September of 2020. Her coronary risk factors are remarkable for the history of diabetes, hypertension and hyperlipidemia. MEDICATIONS: Include aspirin, Symbicort, Plavix 75 mg daily, Trulicity, iron, Lasix 40 mg daily, insulin, isosorbide mononitrate 60 mg daily, metoprolol tartrate 75 mg twice a day, Protonix 5 mg twice a day. Spironolactone 25 mg daily, hydralazine 50 mg twice a day, Zestril 20 mg twice a day, metformin 1 gram twice a day, Lipitor 80 mg daily, Requip, Reglan, Singulair 10 mg daily. REVIEW OF SYSTEMS: Respiratory system: She had dyspnea on exertion. No recent wheezing. No cough. GI system: She felt mildly nauseated. No GI bleeding. system: She had hematuria a few weeks ago, but no recurrence. Nervous system: No history of seizure. PAST MEDICAL HISTORY: Remarkable for history of coronary artery disease, ischemic cardiomyopathy and prior foot infection on the left side. PHYSICAL EXAMINATION: She is a 75-year-old female, alert, oriented, no apparent distress. Blood pressure 118/70 with a heart rate in the 60s. HEAD: Normocephalic. Eyes sclerae anicteric. NECK: Good carotid upstroke. No bruit. No jugular venous distention. LUNGS: Clear to auscultation. HEART: Regular rate and rhythm S1, S2. No S3 with systolic murmur heard at the base, ejection type. No diastolic murmur. No rub. ABDOMEN: Soft, obese, nontender. Positive bowel sounds. No megaly. EXTREMITIES: A cast noted on the left leg. LAB DATA: Lab data revealed a hemoglobin of 10.6, BUN and creatinine of 87 and 1.52. Troponin less than 0.012, 0.214, 0.103. EKG revealed a sinus mechanism with a rate of 100 with a left axis deviation, ST depression in the inferolateral leads with borderline intraventricular conduction delay and evidence of prior anteroseptal myocardial infarction. Similar ST-segment depression has been noted in the past. IMPRESSION: 1. Non ST-segment elevation myocardial infarction in a patient with known history of coronary artery disease and multiple percutaneous revascularization, most recently done by Dr. Caro in September of this year. 2. History of ischemic cardiomyopathy. 3. History of hypertension. 4. Hyperlipidemia. 5. Diabetes mellitus. RECOMMENDATION: I have discussed with the patient the finding. At this time, I would recommend to proceed with coronary angiography to further assess her status and guide her treatment. I have discussed her case with Dr. Mccullough who is her primary spun paste machine operator and depending on the results of testing, further recommendations will be made. Unfortunately, her prognosis is guarded and her cardiac catheterization carries a high risk in view of her chronic kidney disease. Thank you for this consult. We will follow with you. MMPERIL / IJN: [id number] /
[2020-12-16] MEDS: HEPARIN SOD,PORK IN 0.45% NACL 25,000 UNIT in 0.45% NACL 1 250ML.BAG IV SCH (16:52)
[2020-12-16] MEDS: METOCLOPRAMIDE 10 MG TAB PO PRN (17:02)
[2020-12-16 17:16] LABS: Glucose,Whole Blood 191 mg/dL (75-99)
[2020-12-16 20:16] LABS: Glucose,Whole Blood 196 mg/dL (75-99)
[2020-12-16] MEDS: ATORVASTATIN 80 MG TAB PO SCH (20:38)
[2020-12-16] MEDS: MONTELUKAST 10 MG TAB PO SCH (20:39)
[2020-12-16] MEDS: HYDROcodone/APAP 7.5-325MG 1 EACH TAB PO PRN (20:42)
[2020-12-16 23:35] LABS: Glucose,Whole Blood 60 mg/dL (75-99)
[2020-12-16 23:59] LABS: Glucose,Whole Blood 109 mg/dL (75-99)
[2020-12-17] MEDS: HEPARIN SODIUM 1,000 UN/ML (10ML VL) IV PRN (00:30)
[2020-12-17] MEDS: PANTOPRAZOLE 40 MG TABLET PO SCH ×2 (05:40→16:37)
[2020-12-17] MEDS: HYDROcodone/APAP 7.5-325MG 1 EACH TAB PO PRN ×2 (05:57→16:37)
[2020-12-17 06:02] LABS: Glucose,Whole Blood 103 mg/dL (75-99)
[2020-12-17] MEDS: INSULIN ASPART (NovoLOG) 100 UNIT/ML VIAL SQ SCH ×4 (06:09→21:06)
[2020-12-17 07:58] LABS: Anisocytosis Slight; Basophils % (A) 0 %; Eosinophils # (A) 0.3 k/uL (0-0.7); Eosinophils % (A) 3 %; HCT 32.7 % (34.0-46.0); HGB 9.9 gm/dL (11.4-16.0); Hypochromasia Marked; Lymphocytes # (A) 1.8 k/uL (1.0-4.8); Lymphocytes % (A) 22 %; MCH 24.3 pg (25.0-35.0); MCHC 30.4 g/dL (31.0-37.0); Mean Platelet Volume 7.5; Microcytosis Slight; Monocytes # (A) 0.7 k/uL (0-1.0); Monocytes % (A) 8 %; Neutrophils # (A) 5.5 k/uL (1.3-7.7); Neutrophils % (A) 65 %; Platelet Count 270 k/uL (150-450); RBC 4.09 m/uL (3.80-5.40); RDW 16.2 % (11.5-15.5); WBC 8.4 k/uL (3.8-10.6)
[2020-12-17] MEDS: IPRATROPIUM 0.5 MG/2.5 ML NEBU INHALATION SCH ×4 (08:01→20:40)
[2020-12-17] MEDS: SYMBICORT 160-4.5 MCG INHALER INHALATION SCH ×2 (08:01→20:40)
[2020-12-17] MEDS: FERROUS SULFATE 325 MG TAB PO SCH (08:02)
[2020-12-17] MEDS: RANOLAZINE 500 MG TAB.ER.12H PO SCH ×2 (08:02→21:05)
[2020-12-17] MEDS: SUCRALFATE 1 GM TAB PO SCH ×4 (08:02→21:09)
[2020-12-17] MEDS: hydrALAZINE HCL 50 MG TAB PO SCH ×2 (08:02→21:05)
[2020-12-17] MEDS: METOPROLOL TARTRATE 25 MG TAB PO SCH ×2 (08:02→21:05)
[2020-12-17] MEDS: ISOSORBIDE MONONITRATE ER 60 MG TAB.ER.24H PO SCH (08:02)
[2020-12-17] MEDS: lisinopriL 20 MG TAB PO SCH ×2 (08:02→21:05)
[2020-12-17] MEDS: rOPINIRole HCL 4 MG TABLET PO SCH ×3 (08:09→21:09)
[2020-12-17] MEDS: FUROSEMIDE 40 MG TAB PO SCH (08:18)
[2020-12-17 08:22] LABS: Albumin 3.5 g/dL (3.5-5.0); Calcium 9.5 mg/dL (8.4-10.2); Magnesium 1.5 mg/dL (1.6-2.3); Potassium 4.4 mmol/L (3.5-5.1); Total Bilirubin 0.2 mg/dL (0.2-1.3); Total Protein 6.2 g/dL (6.3-8.2)
[2020-12-17] MEDS ORDERED: ASPIRIN 325 MG TAB PO SCH (09:00)
--- NOTE | 2020-12-17 09:09 | P.NPCON ---
History of Present Illness - Reason for Consult acute renal failure - History of Present Illness Reason for consultation: Acute kidney injury History of present illness: Patient is a 75-year-old female seen in consultation for acute kidney injury. Patient denies any prior history of kidney disease and does not follow with a csr technician outpatient. Patient presented to the hospital with chest pain and shortness of breath. She is currently on heparin drip and is scheduled to undergo cardiac catheterization today at noon. She is receiving IV fluids with normal saline running at 100 mL an hour. Admits to good urine output. No vomiting or diarrhea. Patient has history of coronary artery disease with prior stenting. She is long-standing history of diabetes mellitus. She denies use of nonsteroidals. Denies family history of renal disease. No fever or chills. Creatinine was 1.5-1 admission and is down to 0.91 today. Hemodynamically stable. Vital signs are stable. General: The patient appeared well nourished and normally developed. HEENT: Head exam is unremarkable. Neck is without jugular venous distension. LUNGS: Breath sounds decreased. HEART: Rate and Rhythm are regular. ABDOMEN: Soft, no distention. EXTREMITITES: No edema. 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/pulmonary edema/respiratory failure, cardiomyopathy, NI DDM type II, neuropathy bilateral feet, bilateral diabetic foot ulcers, past cellulitis, pneumonias, past R lung pne with empyema/surgery, gastritis, colitis/frequent diarrhea, benign colon polyps, renal disease stage III, IRA with no device used d/t severe clausterphobia, home oxygen at 2L/NC, occasional lower leg edema, RLS, recent fall with bruising, laquita feet lt foot 2nd toe wound has lt foot cast Last Myocardial Infarction Date:: 2020 History of Any Multi-Drug Resistant Organisms: None Reported Past Surgical History: Appendectomy, Breast Surgery, Cholecystectomy, Heart Catheterization, Heart Catheterization With Stent Additional Past Surgical History / Comment(s): PCI with stents, R lung thoracotomy/decortication for empyema, bilateral feet/sores debrided, L breast benign bx, colonoscopy/benign polypectomy, EGD Past Anesthesia/Blood Transfusion Reactions: No Reported Reaction Additional Past Anesthesia/Blood Transfusion Reaction / Comment(s): severe claustrophobia Date of Last Stent Placement:: 11/27/19 Past Psychological History: No Psychological Hx Reported Additional Psychological History / Comment(s): Severe claustrophobia. Pt resides alone in her home. She has 14 stair steps to get up to her bathroom/bedroom. She is established with [facility]- a nurse for wound care and PT and has Dr. Kebede for home wound care. Smoking Status: Former smoker Past Alcohol Use History: None Reported Additional Past Alcohol Use History / Comment(s): STARTED SMOKING AGE 18 (1963) AND QUIT 1994. SMOKED 1 PPD. STATES SHE IS AN ALCOHOLIC AND QUIT DRINKING over 30 yrs ago Past Drug Use History: None Reported - Past Family History Brother(s) Family Medical History: Cancer Additional Family Medical History / Comment(s): Colon cancer Father Family Medical History: Chest Pain / Angina Additional Family Medical History / Comment(s): Father of a IN at the age of 77yrs. Mother Family Medical History: Chest Pain / Angina Additional Family Medical History / Comment(s): Mother of a IN at the age of 74yrs. Medications and Allergies Home Medications Medication Instructions Recorded Confirmed Type Clopidogrel [Plavix] 75 mg PO DAILY 09/05/15 12/15/20 History Montelukast Sodium [Singulair] 10 mg PO HS #30 tab 10/25/15 12/15/20 Rx Dulaglutide [Trulicity] 1.5 mg SQ KISER 08/15/19 12/15/20 History Insulin Aspart Protam & Aspart 30 unit SQ BID 08/15/19 12/15/20 History [NovoLOG MIX 70-30 Flexpen] Ranolazine [Ranexa] 500 mg PO Q12HR #60 tab.er.12h 11/08/19 12/15/20 Rx Atorvastatin [Lipitor] 80 mg PO HS 02/09/20 12/15/20 History metFORMIN HCL [Glucophage] 1,000 mg PO BID 02/09/20 12/15/20 History HYDROcodone/APAP 7.5-325MG [[place] 1 tab PO Q6H PRN 04/12/20 12/15/20 History 7.5-325] Nitroglycerin Sl Tabs [Nitrostat] 0.4 mg SL Q5M PRN 04/12/20 12/15/20 History Pantoprazole [Protonix] 40 mg PO AC-BID 30 Days #60 07/08/20 12/15/20 Rx tablet. Spironolactone [Aldactone] 25 mg PO DAILY 90 Days #90 tab 07/08/20 12/15/20 Rx Budesonide/Formoterol Fumarate 2 puff INHALATION RT-BID 09/30/20 12/15/20 History [Symbicort 160-4.5 Mcg Inhaler] lisinopriL [Zestril] 20 mg PO BID 09/30/20 12/15/20 History Furosemide [Lasix] 40 mg PO DAILY tab 10/04/20 12/15/20 Rx Isosorbide Mononitrate ER [Imdur] 60 mg PO DAILY 12/01/20 12/15/20 History Metoclopramide [Reglan] 10 mg PO QID PRN 12/01/20 12/15/20 History Metoprolol Tartrate [Lopressor] 75 mg PO BID 12/01/20 12/15/20 History Sucralfate [Carafate] 1 gm PO QID 12/01/20 12/15/20 History Tiotropium 18 Mcg/Puff [Spiriva] 1 puff INHALATION RT-BID 12/01/20 12/15/20 History hydrALAZINE HCL [Apresoline] 50 mg PO BID 12/01/20 12/15/20 History rOPINIRole HCL [Requip] 4 mg PO TID 12/01/20 12/15/20 History Aspirin EC [Ecotrin] 325 mg PO DAILY 12/15/20 12/15/20 History Ferrous Sulfate [Feosol] 325 mg PO DAILY 12/15/20 12/15/20 History Allergies Allergy/AdvReac Type Severity Reaction Status Date / Time amoxicillin [From Augmentin] Allergy Rash/Hives Verified 12/15/20 20:22 cefuroxime Allergy Unknown Verified 12/15/20 20:22 ciprofloxacin [From Cipro] Allergy Unknown Verified 12/15/20 20:22 clavulanic acid Allergy Rash/Hives Verified 12/15/20 20:22 [From Augmentin] doxycycline Allergy Unknown Verified 12/15/20 20:22 metronidazole [From Flagyl] Allergy Nausea & Verified 12/15/20 20:22 Vomiting adhesive tape AdvReac bruises,"paper Verified 12/15/20 20:22 tape is ok" albuterol AdvReac Rapid Verified 12/15/20 20:22 Heart Rate stress test injection Allergy Anaphylaxis Uncoded 12/15/20 20:22 Physical Exam Vitals: Vital Signs Temp Pulse Pulse Resp BP Pulse Ox 12/17/20 08:14 74 12/17/20 08:02 74 96 12/17/20 08:00 97.8 F 70 18 117/72 99 12/17/20 04:00 68 18 126/77 98 12/17/20 00:00 64 18 95/59 98 12/16/20 20:00 98.3 F 67 18 119/72 96 12/16/20 19:26 72 12/16/20 19:18 72 12/16/20 15:25 72 12/16/20 15:16 72 12/16/20 15:15 97.6 F 65 16 103/65 99 12/16/20 12:46 72 12/16/20 12:36 72 12/16/20 11:27 97.7 F 66 18 126/75 98 Intake and Output 12/16/20 12/17/20 12/17/20 22:59 06:59 14:59 Intake Total 352.492 580.227 0 Output Total 325 Balance 27.492 580.227 0 Intake: Intake, IV Titration 172.492 100.227 Amount Heparin Sod,Pork in 0.45% 172.492 100.227 NaCl 25,000 unit In 0.45 % NaCl 1 250ml.bag @ 8. 999 UNITS/KG/HR 10.001 mls/hr IV .Q24H [facility] Rx#: [id number] Oral 180 480 0 Output: Urine 325 Other: Voiding Method Bedside Commode Bedside Commode Bedside Commode # Voids 2 Results - Lab Results Most recent lab results Calcium 9.5 mg/dL (8.4-10.2) 12/17/20 07:18 Magnesium 1.5 mg/dL (1.6-2.3) L 12/17/20 07:18 12/17/20 07:18 12/17/20 07:18 Assessment and Plan Plan: Assessment: 1. Acute kidney injury mostly prerenal improved with IV hydration. Creatinine 1.52 on admission and is 0.91 today. 2. Hypovolemic hyponatremia improved with IV hydration. Also component of hy pertonicity from hyperglycemia. 3. Chest pain with concern for acute coronary syndrome scheduled for cardiac catheterization today. On heparin drip. Cardiology following. 4. Diabetes mellitus. 5. Metabolic acidosis secondary to acute kidney injury and IV fluids. Better. 6. Hypomagnesemia from diuresis. 7. Benign hypertension. Controlled. Plan: Maintain IV fluids. Hep-Lock 8 hours after cardiac catheterization. Resume Lasix tomorrow. Replace magnesium. Check UA. Avoid nephrotoxins. Continue to monitor renal function and urine output. Worsening renal function, potentially require renal replacement therapy, post-IV contrast exposure was discussed with the patient. She understands. Thank you for the consultation. I will continue to follow the patient with you during her hospital stay.
[2020-12-17] MEDS: metFORMIN 500 MG TAB PO SCH ×2 (09:13→21:05)
[2020-12-17] MEDS: MAGNESIUM SULFATE-D5W PMX 1 GM in DEXTROSE/WATER 1 100ML.BAG IVPB SCH ×2 (09:15→10:46)
--- NOTE | 2020-12-17 09:57 | HP ---
HISTORY AND PHYSICAL [id number]-old white female with history of coronary artery disease, percutaneous revascularization of the left main left anterior descending artery, left circumflex who came to the emergency room with severe chest discomfort, taken multiple nitroglycerin sublingual all day long. Most recent angioplasty was the ostium of left circumflex, her main left anterior descending artery was patent but she came in with increasing chest pain, diaphoresis, and scheduled for heart catheterization in the morning, ejection fraction 35% to 40%. Coronary risk factors: Diabetes, hypertension, dyslipidemia. MEDICATIONS: Medications include aspirin, Symbicort, Plavix, Trulicity, iron, Lasix, isosorbide mononitrate, metoprolol tartrate, Protonix, spironolactone, hydralazine, Zestril, metformin, Lipitor, Reglan, Singulair. REVIEW OF SYSTEMS: Fourteen-point review of systems is negative except for as mentioned in the history of present illness. PAST MEDICAL HISTORY: Ischemic cardiomyopathy, coronary artery disease. PHYSICAL EXAMINATION: Vital signs: Blood pressure 118/70, heart rate in the 60s. Psych: Alert and oriented x3. Cardiovascular: S1 and S2. Neuro: Alert and oriented x3. Ophthalmologic: Pupils equal, round, and reactive. Lungs: Lungs are clear. Abdomen: Abdomen is soft and nontender. Extremities: There is a cast on the left leg. EKG shows sinus rhythm, ST-T changes inferolateral leads, borderline intraventricular conduction ventricular delay, evidence of prior myocardial infarction, similar ST-T changes in the past. ASSESSMENT: Unstable angina, rule out myocardial infarction. Cardiomyopathy. Ischemic cardiomyopathy. History of coronary artery disease, multiple stents. Diabetes mellitus. Osteomyelitis of the left foot. Dyslipidemia. Prognosis is guarded. Continue current treatment. Heart catheterization in the morning. MMODL / IJN: [id number] /
[2020-12-17] MEDS: INSULN ASP PRT/INSULIN ASPART 100 UNIT/ML 10 ML VIAL SQ SCH ×2 (10:47→21:07)
[2020-12-17] MEDS ORDERED: IV FLUID CONTINUATION 300 ML IV ONE ×2 (11:35→11:52)
[2020-12-17] MEDS ORDERED: LIDOCAINE 1% INJ 10MG/ML (20 ML MDV) SQ ONE ×4 (11:48→12:15)
[2020-12-17] MEDS ORDERED: MIDAZOLAM 2 MG/2 ML VIAL ONE (11:53)
[2020-12-17] MEDS ORDERED: PHENYLEPHRINE-0.9% NACL SYG 1,000 MCG/10 ML SYRINGE ONE (11:53)
[2020-12-17] MEDS ORDERED: LIDOCAINE 1% INJ 10MG/ML (20 ML MDV) ONE (11:53)
[2020-12-17] MEDS ORDERED: SUCCINYLCHOLINE CHLORIDE 100 MG/5 ML SYR IV ONE (11:53)
[2020-12-17] MEDS ORDERED: ePHEDrine SULFATE/0.9% NACL/PF 50 MG/5 ML SYRINGE IV ONE (11:53)
[2020-12-17] MEDS ORDERED: ETOMIDATE 2 MG/ML 10 ML VIAL ONE (11:53)
[2020-12-17] MEDS ORDERED: diphenhydrAMINE 50 MG/ML 1 ML VIAL ONE (11:53)
[2020-12-17] MEDS ORDERED: fentaNYL (PF) 50 MCG/ML 2 ML AMP ONE (11:53)
[2020-12-17] MEDS: HEPARIN SODIUM 1,000 UN/ML (10ML VL) IV ONE ×2 (12:28→12:58)
[2020-12-17] MEDS ORDERED: NITROGLYCERIN SL TABS 0.4 MG TAB SUBLINGUAL PRN (12:51)
[2020-12-17] MEDS ORDERED: RX INFO: IV CONTRAST WAS GIVEN 1 EACH MISC MISCELLANE PRN (12:51)
[2020-12-17] MEDS ORDERED: ZOLPIDEM 5 MG TAB PO PRN (12:51)
[2020-12-17] MEDS ORDERED: ATROPINE SULFATE 0.1 MG/ML 10ML SYRINGE IV PRN (12:51)
[2020-12-17] MEDS ORDERED: MAG HYDROX/AL HYDROX/SIMETH 30 ML CUP PO PRN (12:51)
[2020-12-17] MEDS ORDERED: CLOPIDOGREL 75 MG TAB PO ONE (12:57)
[2020-12-17] MEDS ORDERED: SODIUM CHLORIDE 0.9% 1,000 ML IV SCH (13:00)
[2020-12-17 13:25] LABS: Glucose,Whole Blood 118 mg/dL (75-99)
--- NOTE | 2020-12-17 14:52 | CC ---
CARDIAC CATHETERIZATION REPORT DATE OF SERVICE: December 17, 2020. PERFORMING PHYSICIAN: Freddie Caro MD. PROCEDURE PERFORMED: 1. Selective left coronary angiogram. 2. Successful stenting of the ostial left circumflex using 3.0 x 12 mm Xience drug- eluting stent with an excellent angiographic results and reduction of stenosis from 90% to 0%. 3. Selective right common femoral artery angiogram. INDICATION: This is a 75-year-old female patient who is known to have chronic total occlusion of the right coronary artery, known to have severe CAD and stenting of the LAD and circumflex presented to the hospital complaining of chest discomfort and she was ruled in for acute coronary event. Because of that, a heart catheterization with possible PCI was advised. APPROACH: Right common femoral artery. COMPLICATION: None. LEVEL OF SEDATION: Moderate with sedation length of 33 minutes. PROCEDURE DESCRIPTION: After obtaining informed consent, the patient was brought to the cardiac laboratory associate. Please note that the patient the procedure was performed under general anesthesia. The right common femoral artery was cannulated using micropuncture technique, the micropuncture wire passed easily. Then I placed a 6-Egyptian sheath at the right common femoral artery. After I had pre-dilated using 5-Egyptian and 7-Egyptian dilator. After that, I did selective left coronary angiogram using JL4 guiding catheter. After that I did intervene on the left circumflex please see a separate paragraph for that. Subsequently I did selective right common femoral artery angiogram. The procedure was completed without any complication. SELECTIVE CORONARY ANGIOGRAM: 1. The right coronary artery was not opacified because it is known to be chronically occluded from prior heart catheterization. 2. The left main appeared to have mild disease only. It bifurcates into left circumflex and left anterior descending artery. 3. The left circumflex: The ostial left circumflex which was ballooned before appeared to have haziness with a lesion appeared to be in the range of 99.9%. The proximal left circumflex has another lesion appeared to be in the range of 70%. The left circumflex after that appeared to have mild disease only. 4. Left anterior descending artery: The proximal LAD is stented with mild in-stent restenosis. The mid and distal LAD appeared to have mild disease only. The LAD gives rise into a diagonal branch which has mild disease only as well. PCI OF THE LEFT CIRCUMFLEX: Anticoagulation was initiated using heparin with continuous ACT monitoring throughout the procedure. Subsequently I did wire the left circumflex and LAD using a run-through wire. Balloon angioplasty of the left circumflex was performed using 3.0 x 12 mm balloon before I deployed 3.0 x 12 mm Xience drug-eluting stent where the stent was positioned under fluoroscopy guidance and deployed under 12 atmospheres for 20 seconds. After that, I did balloon angioplasty of the proximal left circumflex with in-stent restenosis appeared to be in the range of 60%, seems to be hazy as well. The final angiogram showed excellent angiographic results and the procedure was completed without any complication. POSTPROCEDURE MANAGEMENT: 1. Dual anti-platelet therapy. 2. Aggressive cholesterol control. 3. Risk factor modifications. 4. Follow up with the patient. MMPEÑA / FELICITASN: [id number] /
[2020-12-17 15:27] LABS: Appearance,Urine Clear (Clear); Bilirubin,Urine Negative (Negative); Blood,Urine Negative (Negative); Color,Urine Light Yellow; Glucose,Urine (UA) Negative (Negative); Ketones,Urine Negative (Negative); Leukocyte Esterase,Urine Small (Negative); Mucus,Urine Rare /hpf; Nitrite,Urine Negative (Negative); PH, Urine 6.5 (5.0-8.0); Protein,Urine Negative (Negative); RBC,Urine <1 /hpf (0-5); Specific Gravity,Urine 1.019 (1.001-1.035); Squamous Epithelial Cell,Urine 2 /hpf (0-4); Urobilinogen,Urine <2.0 mg/dL (<2.0); WBC,Urine 2 /hpf (0-5)
[2020-12-17] MEDS: SPIRONOLACTONE 25 MG TAB PO SCH (16:37)
[2020-12-17 16:48] LABS: Glucose,Whole Blood 131 mg/dL (75-99)
--- NOTE | 2020-12-17 19:49 | PN ---
PROGRESS NOTE DATE OF SERVICE: 12/17/2020 REASON FOR FOLLOWUP: Bilateral diabetic foot ulcer and left second toe osteomyelitis. INTERVAL HISTORY: The patient is currently afebrile. The patient is status post angioplasty and stent placement. Patient tolerated the procedure denies any chest pain, shortness of breath, abdominal pain or pain to the lower extremity. PHYSICAL EXAMINATION: Blood pressure 145/84, pulse of 84, temperature 99, she is 98% on 2 L nasal cannula. General description is an elderly female lying in bed in no distress. Respiratory system: Unlabored breathing. Clear to auscultation anteriorly. Heart S1, S2. Regular rate and rhythm. Abdomen soft, no tenderness. Right foot wound no slough tissue. Left foot is currently covered with cast. LABS: Hemoglobin 9.1, white count 8.4, BUN of 39, creatinine 0.91. DIAGNOSTIC IMPRESSION AND PLAN: 1. Patient with left diabetic foot infection with osteomyelitis of the left second toe. Wound culture multiple pathogens, patient covered with Rocephin 2 grams daily to continue finishing 6 week course of therapy. 2. Patient with right diabetic foot ulcer. Local care with Aquacel Silver dressing. Discussed with the RN. MMPERIL / IJN: [id number] /
[2020-12-17 20:23] LABS: Glucose,Whole Blood 136 mg/dL (75-99)
[2020-12-17] MEDS: METOCLOPRAMIDE 10 MG TAB PO PRN (21:05)
[2020-12-17] MEDS: ATORVASTATIN 80 MG TAB PO SCH (21:05)
[2020-12-17] MEDS: MONTELUKAST 10 MG TAB PO SCH (21:05)
[2020-12-18 06:08] LABS: Glucose,Whole Blood 102 mg/dL (75-99)
[2020-12-18] MEDS: INSULIN ASPART (NovoLOG) 100 UNIT/ML VIAL SQ SCH ×4 (06:08→20:50)
--- NOTE | 2020-12-18 06:13 | PN ---
PROGRESS NOTE 75-year-old white female, status post cardiac catheterization with stenting of the ostial left circumflex, stenosis from 90 to 0%. Cardiovascular S1-S2. Lungs clear. GI soft. Hematology negative Homans. Psych: Fair mood and affect. Left main only has mild disease. Dual antiplatelet agent. Cholesterol control. Risk factor modifications. Follow up soon. Dr. Caro catheterization. MMODL / IJN: [id number] /
[2020-12-18] MEDS: HYDROcodone/APAP 7.5-325MG 1 EACH TAB PO PRN ×2 (06:27→18:21)
[2020-12-18] MEDS: PANTOPRAZOLE 40 MG TABLET PO SCH ×2 (06:27→17:42)
[2020-12-18] MEDS: SYMBICORT 160-4.5 MCG INHALER INHALATION SCH ×2 (07:53→20:01)
[2020-12-18] MEDS: IPRATROPIUM 0.5 MG/2.5 ML NEBU INHALATION SCH ×4 (07:53→20:01)
[2020-12-18 08:15] LABS: Calcium 9.5 mg/dL (8.4-10.2); Magnesium 1.6 mg/dL (1.6-2.3); Potassium 4.4 mmol/L (3.5-5.1)
[2020-12-18 09:30] LABS: Glucose,Whole Blood 325 mg/dL (75-99)
[2020-12-18] MEDS: rOPINIRole HCL 4 MG TABLET PO SCH ×3 (09:30→20:49)
[2020-12-18] MEDS: RANOLAZINE 500 MG TAB.ER.12H PO SCH ×2 (09:31→19:47)
[2020-12-18] MEDS: SUCRALFATE 1 GM TAB PO SCH ×4 (09:31→19:47)
[2020-12-18] MEDS: ISOSORBIDE MONONITRATE ER 60 MG TAB.ER.24H PO SCH (09:31)
[2020-12-18] MEDS: SPIRONOLACTONE 25 MG TAB PO SCH (09:31)
[2020-12-18] MEDS: metFORMIN 500 MG TAB PO SCH ×2 (09:31→19:40)
[2020-12-18] MEDS: lisinopriL 20 MG TAB PO SCH ×2 (09:31→19:47)
[2020-12-18] MEDS: FERROUS SULFATE 325 MG TAB PO SCH (09:31)
[2020-12-18] MEDS: ASPIRIN 81 MG PO SCH (09:31)
[2020-12-18] MEDS: hydrALAZINE HCL 50 MG TAB PO SCH ×2 (09:31→19:47)
[2020-12-18] MEDS: METOPROLOL TARTRATE 25 MG TAB PO SCH ×2 (09:31→19:47)
[2020-12-18] MEDS: FUROSEMIDE 40 MG TAB PO SCH (09:31)
[2020-12-18] MEDS: CLOPIDOGREL 75 MG TAB PO SCH (09:32)
[2020-12-18] MEDS: INSULN ASP PRT/INSULIN ASPART 100 UNIT/ML 10 ML VIAL SQ SCH ×2 (09:32→20:50)
--- NOTE | 2020-12-18 09:46 | P.PN ---
Subjective Patient is seen in follow-up for acute kidney injury. GFR is at baseline. Underwent cardiac catheterization December 17 with a stent placement to the circumflex. No active chest pain or shortness of breath now. IV fluids have been discontinued. Vital signs are stable. General: The patient appeared well nourished and normally developed. HEENT: Head exam is unremarkable. LUNGS:Breath sounds decreased. HEART: Rate and Rhythm are regular. ABDOMEN: Soft, no distention. EXTREMITITES: No edema. Objective - Vital Signs Vital signs: Vital Signs Temp 98.1 F 12/18/20 04:00 Pulse 70 12/18/20 08:05 Resp 20 12/18/20 04:00 BP 134/65 12/18/20 04:00 Pulse Ox 99 12/18/20 04:00 Intake & Output 12/17/20 12/18/20 12/18/20 18:59 06:59 18:59 Intake Total 590 Output Total 225 500 Balance 365 -500 Weight 108.1 kg Intake: IV 100 Intake, IV Titration 250 Amount Magnesium Sulfate-D5w Pmx 200 1 gm In Dextrose/Water 1 100ml.bag @ 100 mls/hr IVPB Q1H [facility] Rx#: [id number] cefTRIAXone 2 gm In 50 Sodium Chloride 0.9% 50 ml @ 100 mls/hr IVPB Q24HR [facility] Rx#:[id number] Oral 240 Output: Urine 225 500 Other: Voiding Method Bedside Commode Bedside Commode # Voids 1 - Labs CBC & Chem 7: 12/17/20 07:18 12/18/20 07:26 Labs: Abnormal Lab Results - Last 24 Hours (Table) 12/17/20 12/17/20 12/17/20 Range/Units 13:23 15:09 16:46 Sodium (137-145) mmol/L BUN (7-17) mg/dL Glucose (74-99) mg/dL POC Glucose (mg/dL) 118 H 131 H (75-99) mg/dL Ur Leukocyte Esterase Small H (Negative) Urine Mucus Rare H (None) /hpf 12/17/20 12/18/20 12/18/20 Range/Units 20:21 06:07 07:26 Sodium 135 L (137-145) mmol/L BUN 19 H (7-17) mg/dL Glucose 110 H (74-99) mg/dL POC Glucose (mg/dL) 136 H 102 H (75-99) mg/dL Ur Leukocyte Esterase (Negative) Urine Mucus (None) /hpf 12/18/20 Range/Units 09:29 Sodium (137-145) mmol/L BUN (7-17) mg/dL Glucose (74-99) mg/dL POC Glucose (mg/dL) 325 H (75-99) mg/dL Ur Leukocyte Esterase (Negative) Urine Mucus (None) /hpf Assessment and Plan Plan: Assessment: 1. Acute kidney injury mostly prerenal improved with IV hydration. Creatinine 1.52 on admission and is 0.79 today. UA benign. 2. Hypovolemic hyponatremia improved with IV hydration. Also component of hypertonicity from hyperglycemia. Better. 3. Chest pain with concern for acute coronary syndrome status post cardiac catheterization on December 17 with stenting of the circumflex. 4. Diabetes mellitus. 5. Metabolic acidosis secondary to acute kidney injury and IV fluids. Better. 6. Hypomagnesemia from diuresis. 7. Benign hypertension. Controlled. Plan: Maintain oral Lasix. Replace magnesium. Avoid nephrotoxins. Continue to monitor renal function and urine output to monitor for contrast- induced acute kidney injury.
[2020-12-18 10:12] VITALS: BMI 37.3
[2020-12-18] MEDS: MAGNESIUM SULFATE-D5W PMX 1 GM in DEXTROSE/WATER 1 100ML.BAG IVPB SCH ×2 (11:35→13:14)
[2020-12-18 11:49] LABS: Glucose,Whole Blood 166 mg/dL (75-99)
--- NOTE | 2020-12-18 13:03 | P.PN ---
Subjective This is a 75-year-old female with a past medical history significant for coronary artery disease s/p multiple PCI left pain, LAD, left circumflex, is chemic cardiomyopathy EF 35-40% by echo in September 2020, COPD, diabetes mellitus, DVT, hypertension, hyperlipidemia, and nonhealing wound to the left lower extremity. Patient follows in the office with Dr. Mccullough. We have been asked to see the patient in consultation for chest pain. She underwent cardiac catheterization with Dr. Caro on 12/17/20 which revealed RCA chronically occluded, left main appeared to be mild disease only, ostial left circumflex lesion 99.9%, proximal left circumflex with lesion 70%, proximal LAD with mild in stent restenosis. Mid and distal LAD appear to have mild disease only. Patient subsequently underwent PCI ostial left circumflex 12/18/2020: Patient seen and examined at bedside, no acute distress. She denies any chest pain, shortness of breath, heaviness, dizziness. Blood pressure 100/61, heart rate 84, afebrile, maintaining saturations 95% on 2 L nasal cannula. Laboratory data reviewed sodium 135, potassium 4.4, BUN 19, serum creatinine 0.79, magnesium 1.6. Patient maintained on aspirin 1 mg daily, atorvastatin 80 mg daily, Plavix 75 mg daily, Lasix 40 mg daily, hydralazine 50 mg twice a day, Imdur 60 mg daily, lisinopril 20 mg twice a day, metoprolol titrate 75 mg twice a day, spironolactone 25 mg daily PHYSICAL EXAM: VITAL SIGNS: Reviewed. GENERAL: Well-developed in no acute distress. HEENT: Head is normocephalic.Neck supple. No JVD LUNGS: Respirations even and unlabored. Lungs diminished bilaterally. HEART: Regular rate and rhythm. S1 and S2 heard. ABDOMEN: Soft. Nondistended. Nontender. EXTREMITIES: Normal range of motion. No clubbing or cyanosis. Peripheral pulses intact. No lower extremity edema. Cast to left lower extremity noted. SKIN: Cath site right femoral site clean, dry, intact, 2+ peripheral pulses. NEUROLOGIC: Awake and alert. Oriented x 3. 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 Patient in the outpatient setting with Dr. Mccullough one week Objective - Vital Signs Vital signs: Vital Signs Temp 97.7 F 12/16/20 07:00 Pulse 72 12/16/20 12:46 Resp 17 12/16/20 08:00 BP 118/74 12/16/20 07:00 Pulse Ox 98 12/16/20 07:00 Intake & Output 12/15/20 12/16/20 12/16/20 18:59 06:59 18:59 Intake Total 77.508 Balance 77.508 Weight 111.13 kg Intake: Intake, IV Titration 77.508 Amount Heparin Sod,Pork in 0.45% 77.508 NaCl 25,000 unit In 0.45 % NaCl 1 250ml.bag @ 8. 999 UNITS/KG/HR 10.001 mls/hr IV .Q24H [facility] Rx#: [id number] Other: Voiding Method Toilet Bedside Commode # Voids 1 - Labs CBC & Chem 7: 12/17/20 07:18 12/18/20 07:26 Labs: Abnormal Lab Results - Last 24 Hours (Table) 12/15/20 12/15/20 12/15/20 Range/Units 19:27 19:27 21:18 WBC 11.2 H (3.8-10.6) k/uL Hgb 10.6 L (11.4-16.0) gm/dL Hct 33.5 L (34.0-46.0) % MCV 77.2 L (80.0-100.0) fL MCH 24.6 L (25.0-35.0) pg RDW 16.2 H (11.5-15.5) % APTT (22.0-30.0) sec Sodium 129 L (137-145) mmol/L Potassium 5.3 H (3.5-5.1) mmol/L Carbon Dioxide 17 L (22-30) mmol/L BUN 87 H (7-17) mg/dL Creatinine 1.52 H (0.52-1.04) mg/dL Glucose 308 H (74-99) mg/dL POC Glucose (mg/dL) 251 H (75-99) mg/dL Troponin I (0.000-0.034) ng/mL 12/15/20 12/16/20 12/16/20 Range/Units 22:54 02:39 02:39 WBC (3.8-10.6) k/uL Hgb (11.4-16.0) gm/dL Hct (34.0-46.0) % MCV (80.0-100.0) fL MCH (25.0-35.0) pg RDW (11.5-15.5) % APTT 31.7 H (22.0-30.0) sec Sodium (137-145) mmol/L Potassium (3.5-5.1) mmol/L Carbon Dioxide (22-30) mmol/L BUN (7-17) mg/dL Creatinine (0.52-1.04) mg/dL Glucose (74-99) mg/dL POC Glucose (mg/dL) (75-99) mg/dL Troponin I 0.210 H* 1.030 H* (0.000-0.034) ng/mL 12/16/20 12/16/20 12/16/20 Range/Units 06:51 09:44 11:57 WBC (3.8-10.6) k/uL Hgb (11.4-16.0) gm/dL Hct (34.0-46.0) % MCV (80.0-100.0) fL MCH (25.0-35.0) pg RDW (11.5-15.5) % APTT 45.5 H (22.0-30.0) sec Sodium (137-145) mmol/L Potassium (3.5-5.1) mmol/L Carbon Dioxide (22-30) mmol/L BUN (7-17) mg/dL Creatinine (0.52-1.04) mg/dL Glucose (74-99) mg/dL POC Glucose (mg/dL) 130 H 155 H (75-99) mg/dL Troponin I (0.000-0.034) ng/mL
--- NOTE | 2020-12-18 16:45 | PN ---
PROGRESS NOTE DATE OF SERVICE: 12/18/2020. FOR FOLLOWUP: Bilateral diabetic foot ulcer with osteomyelitis of the left second toe. INTERVAL HISTORY: Patient is afebrile. The patient is breathing comfortably. Denies any chest pain. No shortness of breath. No cough. No abdominal pain. No pain to the lower extremity. PHYSICAL EXAMINATION: Blood pressure 141/60 with a pulse of 78, temperature 98. She is 95% on room air. General description is an elderly female lying in bed in no distress. Respiratory system: Unlabored breathing, clear to auscultation anteriorly. Heart S1, S2. Regular rate and rhythm. Abdomen soft, no tenderness. Left foot is currently covered with cast. Right foot is dressed. LABS: BUN of 19, creatinine 0.79. DIAGNOSTIC IMPRESSION AND PLAN: 1. Patient with left second toe osteomyelitis. Culture positive for Enterobacter in this patient. Patient is covered with Rocephin. She will get a PICC line. Plan for 6 weeks of antibiotic and weekly blood work. Continue with cast to the left leg, can be opened up tomorrow. 2. Right foot wound. Local care with Aquacel dressing. MMODL / IJN: [id number] /
[2020-12-18 17:07] LABS: Glucose,Whole Blood 138 mg/dL (75-99)
[2020-12-18] MEDS ORDERED: MAGNESIUM HYDROXIDE 2,400 MG/10 ML CUP PO PRN (18:18)
[2020-12-18] MEDS: ATORVASTATIN 80 MG TAB PO SCH (19:47)
[2020-12-18] MEDS: MONTELUKAST 10 MG TAB PO SCH (19:47)
[2020-12-18 20:16] LABS: Glucose,Whole Blood 212 mg/dL (75-99)
[2020-12-18] MEDS ORDERED: bisacodyL 10 MG SUPP RECTAL SCH (21:00)
--- NOTE | 2020-12-18 23:46 | PN ---
PROGRESS NOTE 75-year-old white female was admitted with atypical chest pain, status post angioplasty, possibly can be discharged home tomorrow. Cardiovascular S1-S2. Lungs clear. GI soft. Hematology negative Homans. ASSESSMENT: 1. Status post PTCA. 2. Coronary artery disease. CONDITION: Stable. PROGNOSIS: Guarded. Ambulate as tolerated. Follow up in the next 24 to 48 hours after discharge. MMODL / IJN: [id number] /
[2020-12-19] MEDS: HYDROcodone/APAP 7.5-325MG 1 EACH TAB PO PRN (03:58)
[2020-12-19 06:03] LABS: Glucose,Whole Blood 148 mg/dL (75-99)
[2020-12-19] MEDS: PANTOPRAZOLE 40 MG TABLET PO SCH ×2 (06:32→17:22)
[2020-12-19] MEDS: INSULIN ASPART (NovoLOG) 100 UNIT/ML VIAL SQ SCH ×3 (06:32→17:08)
[2020-12-19] MEDS: METOPROLOL TARTRATE 25 MG TAB PO SCH (07:59)
[2020-12-19] MEDS: ISOSORBIDE MONONITRATE ER 60 MG TAB.ER.24H PO SCH (07:59)
[2020-12-19] MEDS: ASPIRIN 81 MG PO SCH (07:59)
[2020-12-19] MEDS: SUCRALFATE 1 GM TAB PO SCH ×3 (08:00→17:22)
[2020-12-19] MEDS: lisinopriL 20 MG TAB PO SCH (08:00)
[2020-12-19] MEDS: INSULN ASP PRT/INSULIN ASPART 100 UNIT/ML 10 ML VIAL SQ SCH (08:00)
[2020-12-19] MEDS: RANOLAZINE 500 MG TAB.ER.12H PO SCH (08:00)
[2020-12-19] MEDS: hydrALAZINE HCL 50 MG TAB PO SCH (08:00)
[2020-12-19] MEDS: FUROSEMIDE 40 MG TAB PO SCH (08:00)
[2020-12-19] MEDS: SPIRONOLACTONE 25 MG TAB PO SCH (08:00)
[2020-12-19] MEDS: metFORMIN 500 MG TAB PO SCH (08:00)
[2020-12-19] MEDS: CLOPIDOGREL 75 MG TAB PO SCH (08:00)
[2020-12-19] MEDS: FERROUS SULFATE 325 MG TAB PO SCH (08:00)
[2020-12-19] MEDS: rOPINIRole HCL 4 MG TABLET PO SCH ×2 (08:01→17:22)
[2020-12-19 08:07] VITALS: RESP 16; TEMP 98.3
[2020-12-19] MEDS: IPRATROPIUM 0.5 MG/2.5 ML NEBU INHALATION SCH ×3 (09:16→15:51)
[2020-12-19] MEDS: SYMBICORT 160-4.5 MCG INHALER INHALATION SCH (09:16)
[2020-12-19 09:32] LABS: Calcium 9.5 mg/dL (8.4-10.2); Magnesium 1.6 mg/dL (1.6-2.3); Potassium 4.4 mmol/L (3.5-5.1)
--- NOTE | 2020-12-19 09:53 | P.PN ---
Subjective Patient is seen in follow-up for acute kidney injury. GFR is at baseline. Underwent cardiac catheterization December 17 with a stent placement to the circumflex. No active chest pain or shortness of breath now. IV fluids have been discontinued. Blood pressure stable. Vital signs are stable. General: The patient appeared well nourished and normally developed. HEENT: Head exam is unremarkable. LUNGS:Breath sounds decreased. HEART: Rate and Rhythm are regular. ABDOMEN: Soft, no distention. EXTREMITITES: No edema. Objective - Vital Signs Vital signs: Vital Signs Temp 98.3 F 12/19/20 08:00 Pulse 72 12/19/20 09:26 Resp 16 12/19/20 08:00 BP 143/65 12/19/20 08:00 Pulse Ox 95 12/19/20 08:00 Intake & Output 12/18/20 12/19/20 12/19/20 18:59 06:59 18:59 Intake Total 1360 240 Balance 1360 240 Weight 108.1 kg 109.5 kg Intake: Oral 1360 240 Other: Voiding Method Bedside Commode # Voids 2 1 - Labs CBC & Chem 7: 12/17/20 07:18 12/19/20 08:21 Labs: Abnormal Lab Results - Last 24 Hours (Table) 12/18/20 12/18/20 12/18/20 Range/Units 11:46 17:05 20:15 Sodium (137-145) mmol/L Chloride (98-107) mmol/L Glucose (74-99) mg/dL POC Glucose (mg/dL) 166 H 138 H 212 H (75-99) mg/dL 12/19/20 12/19/20 Range/Units 06:02 08:21 Sodium 131 L (137-145) mmol/L Chloride 97 L (98-107) mmol/L Glucose 148 H (74-99) mg/dL POC Glucose (mg/dL) 148 H (75-99) mg/dL Assessment and Plan Plan: Assessment: 1. Acute kidney injury mostly prerenal improved with IV hydration. Creatinine 1.52 on admission and is 0.85 today. UA benign. 2. Hyponatremia, now euvolemic. Blood sugars not too elevated. 3. Coronary artery disease status post cardiac catheterization with stenting of the circumflex this admission. 4. Diabetes mellitus. 5. Metabolic acidosis secondary to acute kidney injury and IV fluids. Better. 6. Hypomagnesemia from diuresis. 7. Benign hypertension. Controlled. Plan: Maintain oral Lasix. 1200 mL fluid restriction. Replace magnesium. I will also add oral magnesium oxide. Avoid nephrotoxins. Continue to monitor renal function and urine output to monitor for contrast- induced acute kidney injury.
--- NOTE | 2020-12-19 11:23 | P.PN ---
Subjective This is a 75-year-old female with a past medical history significant for coronary artery disease s/p multiple PCI left pain, LAD, left circumflex, is chemic cardiomyopathy EF 35-40% by echo in September 2020, COPD- on home O2., diabetes mellitus, DVT, hypertension, hyperlipidemia, and nonhealing wound to the left lower extremity. Patient follows in the office with Dr. Mccullough. We have been asked to see the patient in consultation for chest pain. She underwent cardiac catheterization with Dr. Caro on 12/17/20 which revealed RCA chronically occluded, left main appeared to be mild disease only, ostial left circumflex lesion 99.9%, proximal left circumflex with lesion 70%, proximal LAD with mild in stent restenosis. Mid and distal LAD appear to have mild disease only. Patient subsequently underwent PCI ostial left circumflex 12/19/2020: Patient seen and examined at bedside, no acute distress. Patient states she was short of breath last night, and had oxygen placed on. She usually wears oxygen at home. She denies any chest pain, shortness of breath, heaviness, dizziness. Blood pressure 143/65, heart rate 69, afebrile, maintaining saturations on 2 L nasal cannula. Laboratory data reviewed sodium 131, potassium 4.4, BUN 17, serum creatinine 0.8, magnesium 1.6 Patient maintained on aspirin 1 mg daily, atorvastatin 80 mg daily, Plavix 75 mg daily, Lasix 40 mg daily, hydralazine 50 mg twice a day, Imdur 60 mg daily, lisinopril 20 mg twice a day, metoprolol titrate 75 mg twice a day, spironolactone 25 mg daily PHYSICAL EXAM: VITAL SIGNS: Reviewed. GENERAL: Well-developed in no acute distress. HEENT: Head is normocephalic.Neck supple. No JVD LUNGS: Respirations even and unlabored. Lungs diminished bilaterally. HEART: Regular rate and rhythm. S1 and S2 heard. ABDOMEN: Soft. Nondistended. Nontender. EXTREMITIES: Normal range of motion. No clubbing or cyanosis. Peripheral pulses intact. No lower extremity edema. Cast to left lower extremity noted. SKIN: Cath site right femoral site clean, dry, intact, 2+ peripheral pulses. NEUROLOGIC: Awake and alert. Oriented x 3. 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 Patient to follow up in the outpatient setting with Dr. Mccullough one week Objective - Vital Signs Vital signs: Vital Signs Temp 98.3 F 12/19/20 08:00 Pulse 72 12/19/20 09:26 Resp 16 12/19/20 08:00 BP 143/65 12/19/20 08:00 Pulse Ox 95 12/19/20 08:00 Intake & Output 12/18/20 12/19/20 12/19/20 18:59 06:59 18:59 Intake Total 1360 240 Balance 1360 240 Weight 108.1 kg 109.5 kg Intake: Oral 1360 240 Other: Voiding Method Bedside Commode Bedside Commode # Voids 2 1 - Labs CBC & Chem 7: 12/17/20 07:18 12/19/20 08:21 Labs: Abnormal Lab Results - Last 24 Hours (Table) 12/18/20 12/18/20 12/18/20 Range/Units 11:46 17:05 20:15 Sodium (137-145) mmol/L Chloride (98-107) mmol/L Glucose (74-99) mg/dL POC Glucose (mg/dL) 166 H 138 H 212 H (75-99) mg/dL 12/19/20 12/19/20 Range/Units 06:02 08:21 Sodium 131 L (137-145) mmol/L Chloride 97 L (98-107) mmol/L Glucose 148 H (74-99) mg/dL POC Glucose (mg/dL) 148 H (75-99) mg/dL
[2020-12-19 11:48] LABS: Glucose,Whole Blood 111 mg/dL (75-99)
[2020-12-19] MEDS: MAGNESIUM SULFATE-D5W PMX 1 GM in DEXTROSE/WATER 1 100ML.BAG IVPB SCH ×2 (12:33→14:20)
--- NOTE | 2020-12-19 13:23 | PN ---
PROGRESS NOTE DATE OF SERVICE: 12/19/2020. REASON FOR FOLLOWUP: 1. Left second toe osteomyelitis, acute with underlying diabetes mellitus secondary Enterobacter. 2. Right diabetic foot ulcer, no cellulitis. INTERVAL HISTORY: The patient is afebrile. The patient is breathing comfortably. No chest pain, shortness of breath or cough. No abdominal pain or pain to the lower extremity. PHYSICAL EXAMINATION: Blood pressure 143/55, pulse of 69, temperature 98.3. She is 95% on 2 L nasal cannula. General description is an elderly female up in the chair in no distress. Respiratory system: Unlabored breathing, clear to auscultation anteriorly. Heart S1, S2. Regular rate and rhythm. Abdomen soft, no tenderness. Right foot is currently dressed. Left foot is covered with cast. LABS: Creatinine 0.95. DIAGNOSTIC IMPRESSION AND PLAN: 1. Patient with acute left second toe osteomyelitis secondary to Enterobacter with underlying diabetes mellitus. The patient to continue Rocephin 2 grams daily for a total of 6 weeks. Local care to continue with total cast which will be removed [facility] if the patient ends up getting discharged. If not, will be just removed here. 2. Right foot diabetic foot ulcer with no cellulitis. Local care with dry Aquacel Silver dressing. MMODL / IJN: [id number] /
[2020-12-19 17:28] LABS: Glucose,Whole Blood 131 mg/dL (75-99)
[2020-12-19 17:29] VITALS: BP 140/65; PULSE 65
[2020-12-20] MEDS ORDERED: MAGNESIUM OXIDE 400 MG TAB PO SCH (09:00)
== END 2020-12-19 18:31 | disposition home or self-care (01) | DRG 247 ==
LOC: EC 19:13 → 6NMEDSUR 20:26 → 3SCARD 12-16 10:24 → OBSVTOIN 12-16 13:35
PROVIDERS: ADMIT Family Medicine; ATTEND Family Medicine
PROC: B2111ZZ Fluoroscopy of Multiple Coronary Arteries using Low Osmolar Contrast (ICD-10-PCS; 2020-12-17)
PROC: 027034Z Dilation of Coronary Artery, One Artery with Drug-eluting Intraluminal Device, Percutaneous Approach (ICD-10-PCS; principal; 2020-12-17 09:00)
PROC: B41F1ZZ Fluoroscopy of Right Lower Extremity Arteries using Low Osmolar Contrast (ICD-10-PCS; 2020-12-17 12:00)
DX: I21.4 Non-ST elevation (NSTEMI) myocardial infarction (principal); I50.22 Chronic systolic (congestive) heart failure; M86.172 Other acute osteomyelitis, left ankle and foot; N17.9 Acute kidney failure, unspecified; E87.1 Hypo-osmolality and hyponatremia; T82.855A Stenosis of coronary artery stent, initial encounter; E87.2 Acidosis; I25.110 Atherosclerotic heart disease of native coronary artery with unstable angina pectoris; E11.621 Type 2 diabetes mellitus with foot ulcer; Z95.5 Presence of coronary angioplasty implant and graft; E86.0 Dehydration; Z79.02 Long term (current) use of antithrombotics/antiplatelets; Z79.51 Long term (current) use of inhaled steroids; Z82.49 Family history of ischemic heart disease and other diseases of the circulatory system; I11.0 Hypertensive heart disease with heart failure; I25.5 Ischemic cardiomyopathy; Z86.718 Personal history of other venous thrombosis and embolism; E78.5 Hyperlipidemia, unspecified; L97.529 Non-pressure chronic ulcer of other part of left foot with unspecified severity; E83.42 Hypomagnesemia; Y83.1 Surgical operation with implant of artificial internal device as the cause of abnormal reaction of the patient, or of later complication, without mention of misadventure at the time of the procedure; J44.9 Chronic obstructive pulmonary disease, unspecified; L97.519 Non-pressure chronic ulcer of other part of right foot with unspecified severity; Z79.4 Long term (current) use of insulin; Z79.82 Long term (current) use of aspirin; Z79.899 Other long term (current) drug therapy; I25.2 Old myocardial infarction; F40.240 Claustrophobia; E86.1 Hypovolemia; E11.69 Type 2 diabetes mellitus with other specified complication; Z80.0 Family history of malignant neoplasm of digestive organs; Z87.19 Personal history of other diseases of the digestive system; Z87.891 Personal history of nicotine dependence
CPT/HCPCS: 36415; 36573; 71046; 80048; 80053; 80061; 81001; 83735; 84484; 85025; 85610; 85730; 93005; 93454; 94640; 94760; 96374; 96375; 99285

== ENCOUNTER 2021-02-15 16:34 | Inpatient (IN) | payer MEDICARE, OTHER ==
--- NOTE | 2021-02-15 18:07 | ED ---
General Adult HPI - General Chief complaint: Weakness Stated complaint: weakness Time Seen by Provider: 02/15/21 17:18 Source: patient, EMS Mode of arrival: EMS Limitations: no limitations - History of Present Illness Initial comments: Dictation was produced using [employer]ward[employer] dictation software. please excuse any grammatical, word or spelling errors. Chief Complaint: 75-year-old female with extensive cardiac history presents emergency department for weakness and tremulousness to the extremities History of Present Illness: She is 75-year-old female. She is brought in by son. Patient was feeling really weak today. She started to have episodes of tremulousness to the extremities. Most noticeable on her hands. Patient states she has a mild ache to her right shoulder. Denies any chest pain. No shortness of breath. Patient allegedly was just started on a new medication prescribed by her primary care doctor to treat shingles. She does not know the exact name of the medication. Denies any constitutional symptoms. No nausea or vomiting. No abdominal pain or chest pain. The ROS documented in this emergency department record has been reviewed and confirmed by me. Those systems with pertinent positive or negative responses have been documented in the HPI. All other systems are other negative and/or noncontributory. PHYSICAL EXAM: General Impression: Alert and oriented x3, not in acute distress HEENT: Normocephalic atraumatic, extra-ocular movements intact, pupils equal and reactive to light bilaterally, mucous membranes moist. Cardiovascular: Heart regular rate and rhythm Chest: Able to complete full sentences, no retractions, no tachypnea Abdomen: abdomen soft, non-tender, non-distended, no organomegaly Musculoskeletal: Pulses present and equal in all extremities, no peripheral edema Motor: no focal deficits noted Neurological: CN II-XII grossly intact, no focal motor or sensory deficits noted Skin: Intact with no visualized rashes Psych: Normal affect and mood ED course: 75-year-old female presents to the emergency department for weakness. Vital signs upon arrival shows heart rate of 44, blood pressure 96/50. Rest vital signs within acceptable limits. EKG was obtained showing diffuse ST d epressions. This appears to be typical of patient's EKG. Patient's EKG compared to 12/15/2020 per CBC same. Posterior EKG was obtained showing no ST elevations. Patient does not have any before meals his symptoms at this time. She has no chest pain or shortness of breath. Patient denies that her symptoms today are not comparable to what she's had a heart attack in the past. She does have this mild shoulder ache. EKG interpretation: Ventricular rate 41, bradycardia, QRS 90, QTC 371. No [place] prolongation, no QTC prolongation, no ST or T-wave changes noted. EKG compared to 12/15/2020 showing no changes. Overall, this EKG is unremarkable Laboratory evaluation obtained. Mild leukocytosis of 13.0. Says likely stress leukocytosis. There is heme of 9.3. This appears to be patient's baseline. Microcytic anemia. Coag panel is negative. Metabolic panel shows a 131, pot assium 6.0 with hemolysis. Mild gap acidosis. Elevated renal markers. Lactate dose of Zosyn 3.4. Troponin 0.014. Elevated BNP. 4 plex viral PCR is negative. Chest x-ray shows no acute processes. Clinical presentation consistent with acute kidney injury. Patient's bradycardia is accompanied with normal blood pressure. Cardiology was consulted. Patient has no ACS symptoms. Patient treated with intravenous fluids. Given the patient has history of heart failure patient will need gentle hydration. Case discussed with primary care doctor Dr. Grande was willing to accept patients care. Nephrology and cardiology be consulted. - Related Data Home Medications Medication Instructions Recorded Confirmed Dulaglutide [Trulicity] 1.5 mg SQ KISER 08/15/19 02/15/21 Insulin Aspart Protam & Aspart 30 unit SQ BID 08/15/19 02/15/21 [NovoLOG MIX 70-30 Flexpen] Atorvastatin [Lipitor] 80 mg PO HS 02/09/20 02/15/21 metFORMIN HCL [Glucophage] 1,000 mg PO BID 02/09/20 02/15/21 HYDROcodone/APAP 7.5-325MG [[place] 1 tab PO Q6H 04/12/20 02/15/21 7.5-325] Budesonide/Formoterol Fumarate 2 puff INHALATION RT-BID 09/30/20 02/15/21 [Symbicort 160-4.5 Mcg Inhaler] lisinopriL [Zestril] 20 mg PO BID 09/30/20 02/15/21 Isosorbide Mononitrate ER [Imdur] 60 mg PO DAILY 12/01/20 02/15/21 Metoclopramide [Reglan] 10 mg PO QID PRN 12/01/20 02/15/21 Metoprolol Tartrate [Lopressor] 75 mg PO BID 12/01/20 02/15/21 Sucralfate [Carafate] 1 gm PO QID 12/01/20 02/15/21 Tiotropium 18 Mcg/Puff [Spiriva] 1 puff INHALATION RT-BID 12/01/20 02/15/21 hydrALAZINE HCL [Apresoline] 50 mg PO BID 12/01/20 02/15/21 rOPINIRole HCL [Requip] 4 mg PO TID 12/01/20 02/15/21 Ferrous Sulfate [Iron (65 MG 325 mg PO DAILY 12/15/20 02/15/21 Elemental)] Previous Rx's Medication Instructions Recorded Montelukast Sodium [Singulair] 10 mg PO HS #30 tab 10/25/15 Ranolazine [Ranexa] 500 mg PO Q12HR #60 tab.er.12h 11/08/19 Pantoprazole [Protonix] 40 mg PO AC-BID 30 Days #60 07/08/20 tablet. Spironolactone [Aldactone] 25 mg PO DAILY 90 Days #90 tab 07/08/20 Furosemide [Lasix] 40 mg PO DAILY tab 10/04/20 Aspirin 81 mg PO DAILY chew 12/18/20 Clopidogrel [Plavix] 75 mg PO DAILY tab 12/18/20 Nitroglycerin Sl Tabs [Nitrostat] 0.4 mg SUBLINGUAL Q5M PRN tab 12/18/20 Allergies Allergy/AdvReac Type Severity Reaction Status Date / Time amoxicillin [From Augmentin] Allergy Rash/Hives Verified 02/15/21 19:23 cefuroxime Allergy Unknown Verified 02/15/21 19:23 ciprofloxacin [From Cipro] Allergy Unknown Verified 02/15/21 19:23 clavulanic acid Allergy Rash/Hives Verified 02/15/21 19:23 [From Augmentin] doxycycline Allergy Unknown Verified 02/15/21 19:23 metronidazole [From Flagyl] Allergy Nausea & Verified 02/15/21 19:23 Vomiting adhesive tape AdvReac bruises,"paper Verified 02/15/21 19:23 tape is ok" albuterol AdvReac Rapid Verified 02/15/21 19:23 Heart Rate stress test injection Allergy Anaphylaxis Uncoded 02/15/21 19:23 Review of Systems ROS Statement: Those systems with pertinent positive or pertinent negative responses have been documented in the HPI. ROS Other: All systems not noted in ROS Statement are negative. 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, cardiomyopathy, NIDDM type II, neuropathy bilateral feet, bilateral diabetic foot ulcers, past cellulitis, pneumonias, past R lung pne with empyema/surgery, gastritis, colitis/frequent diarrhea, benign colon polyps, renal disease stage III, IRA with no device used d/t severe clausterphobia, home oxygen at 2L/NC, occasional lower leg edema, RLS, recent fall with bruising, laquita feet lt foot 2nd toe wound has lt foot cast Last Myocardial Infarction Date:: 2020 History of Any Multi-Drug Resistant Organisms: None Reported Past Surgical History: Appendectomy, Breast Surgery, Cholecystectomy, Heart Catheterization, Heart Catheterization With Stent Additional Past Surgical History / Comment(s): PCI with stents, R lung thoracotomy/decortication for empyema, bilateral feet/sores debrided, L breast benign bx, colonoscopy/benign polypectomy, EGD Past Anesthesia/Blood Transfusion Reactions: No Reported Reaction Additional Past Anesthesia/Blood Transfusion Reaction / Comment(s): severe claustrophobia Date of Last Stent Placement:: 11/27/19 Past Psychological History: No Psychological Hx Reported Smoking Status: Former smoker Past Alcohol Use History: None Reported Past Drug Use History: None Reported - Past Family History Brother(s) Family Medical History: Cancer Additional Family Medical History / Comment(s): Colon cancer Father Family Medical History: Chest Pain / Angina Additional Family Medical History / Comment(s): Father of a HI at the age of 77yrs. Mother Family Medical History: Chest Pain / Angina Additional Family Medical History / Comment(s): Mother of a HI at the age of 74yrs. General Exam Limitations: no limitations Course Vital Signs 02/15/21 02/15/21 02/15/21 16:45 16:50 17:48 Temperature 97.8 F Pulse Rate 44 L 40 L Respiratory 20 20 18 Rate Blood Pressure 96/58 96/37 O2 Sat by Pulse 99 97 Oximetry 02/15/21 18:48 Temperature Pulse Rate 41 L Respiratory 18 Rate Blood Pressure 103/34 O2 Sat by Pulse 97 Oximetry Medical Decision Making - Lab Data Result diagrams: 02/15/21 18:09 02/15/21 18:09 Lab Results 02/15/21 02/15/21 02/15/21 Range/Units 18:09 18:09 18:09 WBC 13.0 H (3.8-10.6) k/uL RBC 4.02 (3.80-5.40) m/uL Hgb 9.3 L (11.4-16.0) gm/dL Hct 31.5 L (34.0-46.0) % MCV 78.4 L (80.0-100.0) fL MCH 23.2 L (25.0-35.0) pg MCHC 29.5 L (31.0-37.0) g/dL RDW 17.7 H (11.5-15.5) % Plt Count 334 (150-450) k/uL MPV 7.2 Neutrophils % 78 % Lymphocytes % 13 % Monocytes % 6 % Eosinophils % 1 % Basophils % 0 % Neutrophils # 10.2 H (1.3-7.7) k/uL Lymphocytes # 1.7 (1.0-4.8) k/uL Monocytes # 0.8 (0-1.0) k/uL Eosinophils # 0.1 (0-0.7) k/uL Basophils # 0.0 (0-0.2) k/uL Hypochromasia Marked Anisocytosis Slight Microcytosis Slight PT 9.8 (9.0-12.0) sec INR 0.9 (<1.2) APTT 21.7 L (22.0-30.0) sec Sodium 131 L (137-145) mmol/L Potassium 6.0 H (3.5-5.1) mmol/L Chloride 102 (98-107) mmol/L Carbon Dioxide 16 L (22-30) mmol/L Anion Gap 13 mmol/L BUN 57 H (7-17) mg/dL Creatinine 1.95 H (0.52-1.04) mg/dL Est GFR (CKD-EPI)AfAm 29 (>60 ml/min/1.73 sqM) Est GFR (CKD-EPI)NonAf 25 (>60 ml/min/1.73 sqM) Glucose 126 H (74-99) mg/dL Plasma Lactic Acid Mesfin (0.7-2.0) mmol/L Calcium 8.9 (8.4-10.2) mg/dL Magnesium 1.8 (1.6-2.3) mg/dL Total Bilirubin 0.6 (0.2-1.3) mg/dL AST 62 H (14-36) U/L ALT 44 H (4-34) U/L Alkaline Phosphatase 85 (38-126) U/L Troponin I (0.000-0.034) ng/mL NT-Pro-B Natriuret Pep pg/mL Total Protein 6.6 (6.3-8.2) g/dL Albumin 3.7 (3.5-5.0) g/dL Influenza Type A (PCR) (Not Detectd) Influenza Type B (PCR) (Not Detectd) RSV (PCR) (Not Detectd) SARS-CoV-2 (PCR) (Not Detectd) 02/15/21 02/15/21 02/15/21 Range/Units 18:09 18:09 18:09 WBC (3.8-10.6) k/uL RBC (3.80-5.40) m/uL Hgb (11.4-16.0) gm/dL Hct (34.0-46.0) % MCV (80.0-100.0) fL MCH (25.0-35.0) pg MCHC (31.0-37.0) g/dL RDW (11.5-15.5) % Plt Count (150-450) k/uL MPV Neutrophils % % Lymphocytes % % Monocytes % % Eosinophils % % Basophils % % Neutrophils # (1.3-7.7) k/uL Lymphocytes # (1.0-4.8) k/uL Monocytes # (0-1.0) k/uL Eosinophils # (0-0.7) k/uL Basophils # (0-0.2) k/uL Hypochromasia Anisocytosis Microcytosis PT (9.0-12.0) sec INR (<1.2) APTT (22.0-30.0) sec Sodium (137-145) mmol/L Potassium (3.5-5.1) mmol/L Chloride (98-107) mmol/L Carbon Dioxide (22-30) mmol/L Anion Gap mmol/L BUN (7-17) mg/dL Creatinine (0.52-1.04) mg/dL Est GFR (CKD-EPI)AfAm (>60 ml/min/1.73 sqM) Est GFR (CKD-EPI)NonAf (>60 ml/min/1.73 sqM) Glucose (74-99) mg/dL Plasma Lactic Acid Mesfin 3.4 H* (0.7-2.0) mmol/L Calcium (8.4-10.2) mg/dL Magnesium (1.6-2.3) mg/dL Total Bilirubin (0.2-1.3) mg/dL AST (14-36) U/L ALT (4-34) U/L Alkaline Phosphatase (38-126) U/L Troponin I 0.014 (0.000-0.034) ng/mL NT-Pro-B Natriuret Pep 4830 pg/mL Total Protein (6.3-8.2) g/dL Albumin (3.5-5.0) g/dL Influenza Type A (PCR) (Not Detectd) Influenza Type B (PCR) (Not Detectd) RSV (PCR) (Not Detectd) SARS-CoV-2 (PCR) (Not Detectd) 02/15/21 Range/Units 18:09 WBC (3.8-10.6) k/uL RBC (3.80-5.40) m/uL Hgb (11.4-16.0) gm/dL Hct (34.0-46.0) % MCV (80.0-100.0) fL MCH (25.0-35.0) pg MCHC (31.0-37.0) g/dL RDW (11.5-15.5) % Plt Count (150-450) k/uL MPV Neutrophils % % Lymphocytes % % Monocytes % % Eosinophils % % Basophils % % Neutrophils # (1.3-7.7) k/uL Lymphocytes # (1.0-4.8) k/uL Monocytes # (0-1.0) k/uL Eosinophils # (0-0.7) k/uL Basophils # (0-0.2) k/uL Hypochromasia Anisocytosis Microcytosis PT (9.0-12.0) sec INR (<1.2) APTT (22.0-30.0) sec Sodium (137-145) mmol/L Potassium (3.5-5.1) mmol/L Chloride (98-107) mmol/L Carbon Dioxide (22-30) mmol/L Anion Gap mmol/L BUN (7-17) mg/dL Creatinine (0.52-1.04) mg/dL Est GFR (CKD-EPI)AfAm (>60 ml/min/1.73 sqM) Est GFR (CKD-EPI)NonAf (>60 ml/min/1.73 sqM) Glucose (74-99) mg/dL Plasma Lactic Acid Mesfin (0.7-2.0) mmol/L Calcium (8.4-10.2) mg/dL Magnesium (1.6-2.3) mg/dL Total Bilirubin (0.2-1.3) mg/dL AST (14-36) U/L ALT (4-34) U/L Alkaline Phosphatase (38-126) U/L Troponin I (0.000-0.034) ng/mL NT-Pro-B Natriuret Pep pg/mL Total Protein (6.3-8.2) g/dL Albumin (3.5-5.0) g/dL Influenza Type A (PCR) Not Detected (Not Detectd) Influenza Type B (PCR) Not Detected (Not Detectd) RSV (PCR) Not Detected (Not Detectd) SARS-CoV-2 (PCR) Not Detected (Not Detectd) Disposition Clinical Impression: JAZZ (acute kidney injury) Disposition: ADMITTED IP TO THIS [facility] Condition: Fair Referrals: Medardo Grande MD [Primary Care Provider] - 1-2 days
--- NOTE | 2021-02-15 18:32 | XR ---
EXAMINATION TYPE: XR chest 1V portable DATE OF EXAM: 02/15/2021 COMPARISON: NONE HISTORY: Chest pain TECHNIQUE: Single view FINDINGS: Heart is enlarged. There is no gross heart failure. There is slight coarsening of interstit ial markings. There are chest leads. There is slight blunting of the right costophrenic angle. IMPRESSION: There is some pleural diaphragmatic scarring right lung base without change. Cardiomegaly without change. No heart failure seen.
[2021-02-15] MEDS ORDERED: SODIUM CHLORIDE 0.9% 500 ML 500 ML IV STA (18:38)
[2021-02-15 18:40] LABS: Albumin 3.7 g/dL (3.5-5.0); Calcium 8.9 mg/dL (8.4-10.2); Magnesium 1.8 mg/dL (1.6-2.3); Total Bilirubin 0.6 mg/dL (0.2-1.3); Total Protein 6.6 g/dL (6.3-8.2)
[2021-02-15 18:42] LABS: INR 0.9 (<1.2); Prothrombin Time 9.8 sec (9.0-12.0)
[2021-02-15 18:43] LABS: Anisocytosis Slight; Basophils % (A) 0 %; Eosinophils # (A) 0.1 k/uL (0-0.7); Eosinophils % (A) 1 %; HCT 31.5 % (34.0-46.0); HGB 9.3 gm/dL (11.4-16.0); Hypochromasia Marked; Lymphocytes # (A) 1.7 k/uL (1.0-4.8); Lymphocytes % (A) 13 %; MCH 23.2 pg (25.0-35.0); MCHC 29.5 g/dL (31.0-37.0); MCV 78.4 fL (80.0-100.0); Mean Platelet Volume 7.2; Microcytosis Slight; Monocytes # (A) 0.8 k/uL (0-1.0); Monocytes % (A) 6 %; Neutrophils # (A) 10.2 k/uL (1.3-7.7); Neutrophils % (A) 78 %; Platelet Count 334 k/uL (150-450); RBC 4.02 m/uL (3.80-5.40); RDW 17.7 % (11.5-15.5)
[2021-02-15 18:55] LABS: Partial Thromboplastin Time 21.7 sec (22.0-30.0)
[2021-02-15] MEDS ORDERED: NALOXONE 0.4 MG/ML 1 ML VIAL IV PRN (19:47)
[2021-02-15] MEDS ORDERED: SODIUM CHLORIDE 0.9% 1,000 ML IV SCH (20:00)
[2021-02-15] MEDS ORDERED: HYDROcodone/APAP 5-325MG 1 EACH TAB PO STA (20:02)
[2021-02-15 20:08] LABS: Appearance,Urine Turbid (Clear); Bacteria,Urine Many /hpf; Bilirubin,Urine Negative (Negative); Blood,Urine Small (Negative); Color,Urine Yellow; Glucose,Urine (UA) Negative (Negative); Hyaline Casts,Urine 6 /lpf (0-2); Ketones,Urine Negative (Negative); Leukocyte Esterase,Urine Large (Negative); Mucus,Urine Rare /hpf; Nitrite,Urine Negative (Negative); Protein,Urine Negative (Negative); RBC,Urine 26 /hpf (0-5); Specific Gravity,Urine 1.009 (1.001-1.035); Squamous Epithelial Cell,Urine 8 /hpf (0-4); Urobilinogen,Urine <2.0 mg/dL (<2.0); WBC,Urine >182 /hpf (0-5)
[2021-02-15] MEDS ORDERED: METOCLOPRAMIDE 10 MG TAB PO PRN (20:49)
[2021-02-15] MEDS ORDERED: lisinopriL 20 MG TAB PO SCH (21:00)
[2021-02-15] MEDS ORDERED: ERTAPENEM 1 GM in SODIUM CHLORIDE 0.9% 50 ML IVPB SCH (21:00)
[2021-02-15] MEDS ORDERED: METOPROLOL TARTRATE 25 MG TAB PO SCH (21:00)
[2021-02-15] MEDS ORDERED: metFORMIN 500 MG TAB PO SCH (21:00)
[2021-02-15] MEDS: rOPINIRole HCL 4 MG TABLET PO SCH (21:59)
[2021-02-15] MEDS: ATORVASTATIN 80 MG TAB PO SCH (22:47)
[2021-02-15] MEDS: RANOLAZINE 500 MG TAB.ER.12H PO SCH (22:47)
[2021-02-15] MEDS: SUCRALFATE 1 GM TAB PO SCH (22:47)
[2021-02-15] MEDS: MONTELUKAST 10 MG TAB PO SCH (22:47)
--- NOTE | 2021-02-16 01:04 | HP ---
HISTORY AND PHYSICAL HISTORY OF PRESENT ILLNESS: 75-year-old white female came in for weakness, tremulousness to her extremities and near fall. She was found to be uroseptic, started on broad-spectrum antibiotics. She has diabetic wound infections in her feet also. Denies any shortness of breath. She has mild ache to the right shoulder. No nausea, vomiting. No abdominal pain or chest pain. REVIEW OF SYMPTOMS: 14-point review of systems otherwise negative. PHYSICAL EXAMINATION: CARDIOVASCULAR S1-S2. LUNGS are clear. GI is distended, obesity. EXTREMITIES: She has open wounds to her ankles and heels are wrapped. ABDOMEN: Tenderness to palpation suprapubic area, questionable flank pain. PSYCH: Fair mood and affect. NEUROLOGIC: Alert and orient x3. LAB: Show white count 13, hemoglobin 9.3, potassium 6.0. Sodium 131. Troponin 0.014. Mild gap acidosis. Troponin 0.014. Elevated BNP. Chest x-ray is negative. ASSESSMENT AND PLAN: 1. The patient has bradycardia, normal blood pressure. 2. Treated with IV fluids for prerenal renal insufficiency. 3. Treated with broad-spectrum antibiotics for urosepsis. 4. Nephrology for acute renal insufficiency, chronic renal disease stage 3 with acute tubular necrosis. 5. Insulin-dependent diabetes mellitus. Diabetic wound infection. Continue with insulin from home. 6. Chronic pain control. 7. Coronary artery disease, 5 stents. Continue home cardiac medicines. 8. Continue current treatment. 9. Follow up in next 24 to 48 hours. 10.Wait for Cardiology and Renal, Infectious Disease consults. MMODL / IJN: [id number] /
[2021-02-16] MEDS: ONDANSETRON 4 MG/2 ML VIAL IVP PRN (02:00)
[2021-02-16] MEDS: HYDROcodone/APAP 7.5-325MG 1 EACH TAB PO SCH ×4 (02:19→20:36)
[2021-02-16] MEDS: NITROGLYCERIN SL TABS 0.4 MG TAB SUBLINGUAL PRN ×4 (03:33→14:12)
[2021-02-16 05:41] LABS: Anisocytosis Slight; Basophils % (A) 0 %; Eosinophils % (A) 0 %; HCT 35.8 % (34.0-46.0); HGB 10.6 gm/dL (11.4-16.0); Hypochromasia Marked; Lymphocytes # (A) 1.8 k/uL (1.0-4.8); Lymphocytes % (A) 12 %; MCH 23.2 pg (25.0-35.0); MCHC 29.7 g/dL (31.0-37.0); MCV 78.1 fL (80.0-100.0); Microcytosis Slight; Monocytes # (A) 1.1 k/uL (0-1.0); Monocytes % (A) 7 %; Neutrophils # (A) 12.2 k/uL (1.3-7.7); Neutrophils % (A) 80 %; Platelet Count 343 k/uL (150-450); RBC 4.58 m/uL (3.80-5.40); RDW 17.8 % (11.5-15.5); WBC 15.3 k/uL (3.8-10.6)
[2021-02-16 07:07] LABS: ALT 257 U/L (4-34); AST 262 U/L (14-36); African American GFR (CKD) 27 (>60 ml/min/1.73 sqM); Albumin 3.8 g/dL (3.5-5.0); Albumin/Globulin Ratio 1.3; Alkaline Phosphatase 114 U/L (38-126); Anion Gap 11 mmol/L; Blood Urea Nitrogen 60 mg/dL (7-17); Calcium 9.3 mg/dL (8.4-10.2); Carbon Dioxide 21 mmol/L (22-30); Chloride 101 mmol/L (98-107); Globulin 2.9 g/dL; Glucose 82 mg/dL (74-99); Non-African American GFR(CKD) 23 (>60 ml/min/1.73 sqM); Potassium 5.7 mmol/L (3.5-5.1); Sodium 133 mmol/L (137-145); Total Bilirubin 0.4 mg/dL (0.2-1.3); Total Protein 6.7 g/dL (6.3-8.2)
[2021-02-16] MEDS: FERROUS SULFATE 325 MG TAB PO SCH (07:25)
[2021-02-16] MEDS: ASPIRIN 81 MG PO SCH (07:25)
[2021-02-16] MEDS: SUCRALFATE 1 GM TAB PO SCH ×2 (07:25→07:27)
[2021-02-16] MEDS: ISOSORBIDE MONONITRATE ER 60 MG TAB.ER.24H PO SCH (07:27)
[2021-02-16] MEDS: rOPINIRole HCL 4 MG TABLET PO SCH ×3 (07:27→20:35)
[2021-02-16] MEDS: PANTOPRAZOLE 40 MG TABLET PO SCH ×2 (07:27→17:31)
[2021-02-16] MEDS: RANOLAZINE 500 MG TAB.ER.12H PO SCH ×2 (07:27→20:36)
[2021-02-16] MEDS: CLOPIDOGREL 75 MG TAB PO SCH (07:27)
[2021-02-16 08:00] LABS: Glucose,Whole Blood 85 mg/dL (75-99)
[2021-02-16] MEDS: INSULN ASP PRT/INSULIN ASPART 100 UNIT/ML 10 ML VIAL SQ SCH ×2 (08:16→17:28)
[2021-02-16] MEDS: IPRATROPIUM 0.5 MG/2.5 ML NEBU INHALATION SCH ×4 (08:32→20:10)
[2021-02-16] MEDS ORDERED: FUROSEMIDE 10 MG/ML 4 ML VIAL IV STA (10:47)
--- NOTE | 2021-02-16 10:49 | P.NPCON ---
History of Present Illness - Reason for Consult acute renal failure - History of Present Illness Reason for consultation: Acute kidney injury History of present illness: Patient is a 75-year-old female seen in renal consultation for acute kidney injury. Creatinine was 1.95 on admission and is up to 2.06 today. Creatinine is a December 192020 was 0.85. Potassium level was also high at 6 and came down to 5.1 and is back up to 5.7 this morning. Patient presented to the hospital due to generalized weakness. Patient states she went up some stairs to use the bathroom and was then unable to get up from the toilet seat. Her blood pressure was low in the systolic 90s on admission initially and was up to 143/69 this morning. She did receive 1 L bolus of normal saline and then normal saline at 75 mL an hour overnight. She was also taking lisinopril 20 mg twice daily. She does have long-standing history of diabetes. No hematuria. No vomiting or diarrhea. Denies use of nonsteroidals. Vital signs are stable. General: On nasal cannula. HEENT: Head exam is unremarkable. LUNGS: Breath sounds decreased. HEART: Rate and Rhythm are regular. ABDOMEN: Soft, obese. EXTREMITITES: 1+ edema. Past Medical History Past Medical History: Asthma, Coronary Artery Disease (CAD), Chest Pain / Angina, Heart Failure, COPD, Diabetes Mellitus, Deep Vein Thrombosis (DVT), GERD/Reflux, Hyperlipidemia, Hypertension, Myocardial Infarction (MN), Osteoarthritis (OA), Pneumonia, Renal Disease, Skin Disorder, Sleep Apnea/CPAP/BIPAP Additional Past Medical History / Comment(s): Other hx: MIs with last MN 11/2019 with cardiogenic shock/pulmonary edema/respiratory failure, cardiomyopathy, NIDDM type II, neuropathy bilateral feet, bilateral diabetic foot ulcers, past cellulitis, pneumonias, past R lung pne with empyema/surgery, gastritis, colit is/frequent diarrhea, benign colon polyps, renal disease stage III, IRA with no device used d/t severe clausterphobia, home oxygen at 2L/NC, occasional lower leg edema, RLS, recent fall with bruising, laquita feet lt foot 2nd toe wound has lt foot cast Last Myocardial Infarction Date:: 2020 History of Any Multi-Drug Resistant Organisms: None Reported Past Surgical History: Appendectomy, Breast Surgery, Cholecystectomy, Heart Catheterization, Heart Catheterization With Stent Additional Past Surgical History / Comment(s): PCI with stents, R lung thoracotomy/decortication for empyema, bilateral feet/sores debrided, L breast benign bx, colonoscopy/benign polypectomy, EGD Past Anesthesia/Blood Transfusion Reactions: No Reported Reaction Additional Past Anesthesia/Blood Transfusion Reaction / Comment(s): severe claustrophobia Date of Last Stent Placement:: 11/27/19 Past Psychological History: No Psychological Hx Reported Additional Psychological History / Comment(s): Severe claustrophobia. Pt resides alone in her home. She has 14 stair steps to get up to her bathro om/bedroom. She is established with [facility]- a nurse for wound care and PT and has Dr. Kebede for home wound care. Smoking Status: Former smoker Past Alcohol Use History: None Reported Additional Past Alcohol Use History / Comment(s): STARTED SMOKING AGE 18 (1963) AND QUIT 1994. SMOKED 1 PPD. STATES SHE IS AN ALCOHOLIC AND QUIT DRINKING over 30 yrs ago Past Drug Use History: None Reported - Past Family History Brother(s) Family Medical History: Cancer Additional Family Medical History / Comment(s): Colon cancer Father Family Medical History: Chest Pain / Angina Additional Family Medical History / Comment(s): Father of a MN at the age of 77yrs. Mother Family Medical History: Chest Pain / Angina Additional Family Medical History / Comment(s): Mother of a MN at the age of 74yrs. Medications and Allergies Home Medications Medication Instructions Recorded Confirmed Type Montelukast Sodium [Singulair] 10 mg PO HS #30 tab 10/25/15 02/15/21 Rx Dulaglutide [Trulicity] 1.5 mg SQ KISER 08/15/19 02/15/21 History Insulin Aspart Protam & Aspart 30 unit SQ BID 08/15/19 02/15/21 History [NovoLOG MIX 70-30 Flexpen] Ranolazine [Ranexa] 500 mg PO Q12HR #60 tab.er.12h 11/08/19 02/15/21 Rx Atorvastatin [Lipitor] 80 mg PO HS 02/09/20 02/15/21 History metFORMIN HCL [Glucophage] 1,000 mg PO BID 02/09/20 02/15/21 History HYDROcodone/APAP 7.5-325MG [[place] 1 tab PO Q6H 04/12/20 02/15/21 History 7.5-325] Pantoprazole [Protonix] 40 mg PO AC-BID 30 Days #60 07/08/20 02/15/21 Rx tablet. Spironolactone [Aldactone] 25 mg PO DAILY 90 Days #90 tab 07/08/20 02/15/21 Rx Budesonide/Formoterol Fumarate 2 puff INHALATION RT-BID 09/30/20 02/15/21 History [Symbicort 160-4.5 Mcg Inhaler] lisinopriL [Zestril] 20 mg PO BID 09/30/20 02/15/21 History Furosemide [Lasix] 40 mg PO DAILY tab 10/04/20 02/15/21 Rx Isosorbide Mononitrate ER [Imdur] 60 mg PO DAILY 12/01/20 02/15/21 History Metoclopramide [Reglan] 10 mg PO QID PRN 12/01/20 02/15/21 History Metoprolol Tartrate [Lopressor] 75 mg PO BID 12/01/20 02/15/21 History Sucralfate [Carafate] 1 gm PO QID 12/01/20 02/15/21 History Tiotropium 18 Mcg/Puff [Spiriva] 1 puff INHALATION RT-BID 12/01/20 02/15/21 History hydrALAZINE HCL [Apresoline] 50 mg PO BID 12/01/20 02/15/21 History rOPINIRole HCL [Requip] 4 mg PO TID 12/01/20 02/15/21 History Ferrous Sulfate [Iron (65 MG 325 mg PO DAILY 12/15/20 02/15/21 History Elemental)] Aspirin 81 mg PO DAILY chew 12/18/20 02/15/21 Rx Clopidogrel [Plavix] 75 mg PO DAILY tab 12/18/20 02/15/21 Rx Nitroglycerin Sl Tabs [Nitrostat] 0.4 mg SUBLINGUAL Q5M PRN tab 12/18/20 02/15/21 Rx Allergies Allergy/AdvReac Type Severity Reaction Status Date / Time amoxicillin [From Augmentin] Allergy Rash/Hives Verified 02/15/21 19:23 cefuroxime Allergy Unknown Verified 02/15/21 19:23 ciprofloxacin [From Cipro] Allergy Unknown Verified 02/15/21 19:23 clavulanic acid Allergy Rash/Hives Verified 02/15/21 19:23 [From Augmentin] doxycycline Allergy Unknown Verified 02/15/21 19:23 metronidazole [From Flagyl] Allergy Nausea & Verified 02/15/21 19:23 Vomiting adhesive tape AdvReac bruises,"paper Verified 02/15/21 19:23 tape is ok" albuterol AdvReac Rapid Verified 02/15/21 19:23 Heart Rate stress test injection Allergy Anaphylaxis Uncoded 02/15/21 19:23 Physical Exam Vitals: Vital Signs Temp Pulse Pulse Resp BP BP BP 02/16/21 08:47 72 02/16/21 08:32 72 02/16/21 07:00 98.2 F 74 17 143/69 02/16/21 02:00 97.6 F 78 20 169/85 02/15/21 22:23 43 L 18 02/15/21 21:59 98.2 F 63 18 115/63 02/15/21 20:53 40 L 18 106/53 02/15/21 18:48 41 L 18 103/34 02/15/21 17:48 40 L 18 96/37 02/15/21 16:50 20 02/15/21 16:45 97.8 F 44 L 20 96/58 Pulse Ox 02/16/21 08:47 02/16/21 08:32 02/16/21 07:00 95 02/16/21 02:00 95 02/15/21 22:23 02/15/21 21:59 100 02/15/21 20:53 100 02/15/21 18:48 97 02/15/21 17:48 97 02/15/21 16:50 02/15/21 16:45 99 Intake and Output 02/15/21 02/16/21 02/16/21 22:59 06:59 14:59 Other: Voiding Method Bedside Commode Bedside Commode External Catheter External Catheter # Voids 0 Weight 114.305 kg Results - Lab Results Most recent lab results Calcium 9.3 mg/dL (8.4-10.2) 02/16/21 05:56 Magnesium 1.9 mg/dL (1.6-2.3) 02/16/21 05:56 02/16/21 04:17 10/03/21 05:56 Assessment and Plan Plan: Assessment: 1. Acute kidney injury secondary to ATN secondary to hypotension and further worsened with the use of lisinopril. Creatinine 2.06 today. No proteinuria on UA. 2. Hyperkalemia secondary to acute kidney injury, metabolic acidosis and lisinopril. 3. Metabolic acidosis secondary to acute kidney injury and lactic acidosis. 4. UTI maintained on antibiotics. 5. Diabetes mellitus. Plan: Hep-Lock IV fluids. Lasix 40 mg IV once today. Repeat potassium level this evening. Stop lisinopril. Avoid nephrotoxins. Follow-up urine culture. Low potassium diet. Check renal ultrasound. Check bladder scan to rule out urinary retention. Thank you for the consultation. I will continue to follow the patient with you during her hospital stay.
[2021-02-16] MEDS ORDERED: SODIUM CHLORIDE 0.9% 1,000 ML IV SCH (11:30)
[2021-02-16] MEDS ORDERED: SODIUM POLYSTYRENE SULFONATE 15 GM/60 ML BOTTLE PO STA (11:41)
[2021-02-16] MEDS ORDERED: SODIUM BICARB 8.4% 50 ML SYR (1 MEQ/ML) IV STA (11:42)
--- NOTE | 2021-02-16 12:46 | US ---
EXAMINATION TYPE: US kidneys/renal and bladder DATE OF EXAM: 02/16/2021 COMPARISON: CT July 07, 2019 CLINICAL HISTORY: jazz. JAZZ EXAM MEASUREMENTS: Right Kidney: 12.8 x 4.8 x 5.8 cm Left Kidney: 11.7 x 6.4 x 6.1 cm Right Kidney: Appeared wnl Left Kidney: Difficult to visualize due to large pt body habitus and overlying bowel/ No evidence of hydro Bladder: [place] distended at 1,407 ml, pt states she is unable to void Bilateral Jets seen: Only right jet visualized There is no evidence for hydronephrosis at this point in time. No nephrolithiasis is seen. No keke s are identified on images saved. The urinary bladder is satisfactorily distended. Bilateral ureter al jets are not seen. IMPRESSION: Suboptimal study but no hydronephrosis is seen bilaterally.
[2021-02-16 13:05] LABS: Glucose,Whole Blood 139 mg/dL (75-99)
--- NOTE | 2021-02-16 13:06 | CONS ---
CONSULTATION HISTORY: This is a 75-year-old lady with a known history of CAD, prior multivessel stenting, diabetes, hypertension, and mild chronic kidney disease. She came into the hospital with complaints of weakness, lack of energy and also complained of some shortness of breath. She also received some Lasix downstairs. Clinical picture suggests that of acute kidney injury, but I am not seeing any clinical evidence to suggest heart failure. She is resting comfortably without symptoms. Her creatinine has actually gone up from 1.95 yesterday to 2.06 and potassium is 5.7. Given her episode of bradycardia and what seems to be acute kidney injury with hyperkalemia, I am suggesting that we give her 30 g of Kayexalate orally and also hydrate her cautiously at 75 cc/hour normal saline for about 12 hours. I will request Nephrology to OK this. Her troponin is unremarkable. BNP is modestly elevated at 4830. She is resting comfortably without symptoms. White count however is elevated. Her last intervention was of ostium of circumflex stenting by Dr. Caro on December 17. She is resting comfortably at the time of my evaluation. PAST MEDICAL HISTORY: 1. CAD with multivessel stenting. 2. Hypertension. 3. Right type 2 diabetes. 4. Hyperlipidemia. MEDICATIONS: Medications at home include metformin, lisinopril, Aldactone, hydralazine, Protonix, metoprolol tartrate 75 mg b.i.d., Lasix 40 mg daily, Plavix 75 mg daily, aspirin 81 daily and atorvastatin 80 mg daily. PHYSICAL EXAMINATION: On examination, blood pressure is 130/70, pulse rate is about 70 per minute and regular. HEENT unremarkable. Fundus was not examined by me. Neck is supple. There is JVD of 1 cm. No carotid bruit. S1-S2 heard normally with a short systolic murmur. Lungs reveal decent air entry. Abdomen is soft, nontender. Lower extremities reveal diminished pulses. Central nervous system grossly within normal limits. EKG revealed a junctional rhythm initially with inferior ST and T-wave abnormality. Patient was hyperkalemic and now the rhythm strip actually reveals a sinus mechanism and heart rate of about 70 beats per minute. IMPRESSION: 1. Acute kidney injury with hyperkalemia. 2. CAD with multivessel PCI. 3. Probably some prerenal azotemia. 4. Diabetes. 5. Hypertension. 6. CAD. RECOMMENDATIONS: I am recommending cautious hydration, Kayexalate and based on clinical progress will make further recommendations. We will avoid PAPI inhibitors in the current setting of rising creatinine and acute kidney injury. Thank you very much for the consult. ANTHONY / JIMENA: [id number] /
[2021-02-16 17:26] LABS: Glucose,Whole Blood 144 mg/dL (75-99)
[2021-02-16 19:57] LABS: Glucose,Whole Blood 151 mg/dL (75-99)
[2021-02-16] MEDS: MONTELUKAST 10 MG TAB PO SCH (20:35)
[2021-02-16] MEDS: ATORVASTATIN 80 MG TAB PO SCH (20:35)
[2021-02-16] MEDS: ERTAPENEM 0.5 GM in SODIUM CHLORIDE 0.9% 50 ML IVPB SCH (20:37)
--- NOTE | 2021-02-16 22:21 | P.PN ---
Progress Note - Text Progress Note Date: 02/16/21 Presenting complaint: Tired Interval history: I'm rounding for Dr. Medardo Grande today Patient presented with weakness. And tremulousness to the extremities. Especially the hands. Found to be an acute kidney injury with hyperkalemia. February 16: Patient appetite is better. No nausea vomiting. Patient says ulcers on the lower extremity. Has a cast on the left leg. Follows at the wound care center by Dr. Pendleton. Patient's tremulousness has gone. Sitting at the edge of the bed. Review of systems: Was done for constitutional, cardiovascular, GI, pulmonary. relevant finding as above Active Medications Hydrocodone Bitart/Acetaminophen (Hydrocodone/Apap 7.5-325mg 1 Each Tab) 1 each PO Q6H [facility] Last Admin: 02/16/21 20:36 Dose: 1 each Documented by: Aspirin (Aspirin 81 Mg) 81 mg PO DAILY [facility] Last Admin: 02/16/21 07:25 Dose: 81 mg Documented by: Atorvastatin Calcium (Atorvastatin 80 Mg Tab) 80 mg PO [facility] Last Admin: 02/16/21 20:35 Dose: 80 mg Documented by: Clopidogrel Bisulfate (Clopidogrel 75 Mg Tab) 75 mg PO DAILY [facility] Last Admin: 02/16/21 07:27 Dose: 75 mg Documented by: Ferrous Sulfate (Ferrous Sulfate 325 Mg Tab) 325 mg PO DAILY [facility] Last Admin: 02/16/21 07:25 Dose: 325 mg Documented by: Sodium Chloride (Saline 0.9%) 1,000 mls @ 75 mls/hr IV .[id number] [facility] Stop: 02/16/21 23:30 Last Admin: 02/16/21 11:51 Dose: 75 mls/hr Documented by: Ertapenem 0.5 gm/ Sodium (Chloride) 50 mls @ 100 mls/hr IVPB [facility]; Protocol Last Admin: 02/16/21 20:37 Dose: 100 mls/hr Documented by: Insulin Aspart (Insuln Asp Prt/Insulin Aspart 100 Unit/Ml 10 Ml Vial) 30 unit SQ BID-W/MEALS [facility] Last Admin: 02/16/21 17:28 Dose: 30 unit Documented by: Ipratropium [place] (Ipratropium 0.5 Mg/2.5 Ml Nebu) 0.5 mg INHALATION RT-QID [facility] Last Admin: 02/16/21 20:10 Dose: 0.5 mg Documented by: Isosorbide Mononitrate (Isosorbide Mononitrate Er 60 Mg Tab.Er.24h) 60 mg PO DAILY [facility] Last Admin: 02/16/21 07:27 Dose: 60 mg Documented by: Metoclopramide HCl (Metoclopramide 10 Mg Tab) 10 mg PO QID PRN PRN Reason: GERD Montelukast Sodium (Montelukast 10 Mg Tab) 10 mg PO HS [facility] Last Admin: 02/16/21 20:35 Dose: 10 mg Documented by: Naloxone HCl (Naloxone 0.4 Mg/Ml 1 Ml Vial) 0.2 mg IV Q2M PRN PRN Reason: Opioid Reversal Nitroglycerin (Nitroglycerin Sl Tabs 0.4 Mg Tab) 0.4 mg SUBLINGUAL Q5M PRN PRN Reason: Chest Pain Last Admin: 02/16/21 14:12 Dose: 0.4 mg Documented by: Ondansetron HCl (Ondansetron 4 Mg/2 Ml Vial) 4 mg IVP Q8HR PRN PRN Reason: Nausea And Vomiting Last Admin: 02/16/21 02:00 Dose: 4 mg Documented by: Pantoprazole Sodium (Pantoprazole 40 Mg Tablet) 40 mg PO AC-BID [facility] Last Admin: 02/16/21 17:31 Dose: 40 mg Documented by: Ranolazine (Ranolazine 500 Mg Tab.Er.12h) 500 mg PO Q12HR [facility] Last Admin: 02/16/21 20:36 Dose: 500 mg Documented by: Ropinirole HCl (Ropinirole Hcl 4 Mg Tablet) 4 mg PO TID [facility] Last Admin: 02/16/21 20:35 Dose: 4 mg Documented by: On examination: VITAL SIGNS: 98.2, 74, 17, 143 with 69, 95% on 3 L GENERAL APPEARANCE: BMI 39.5, sitting of the edge of the bed, cast in the left leg HEENT: Normal external appearance of nose and ear. Oral cavity normal EYES: Pupils equal. Conjunctiva normal. NECK: JVD not raised. Mass not palpable. RESPIRATORY: Respiratory effort normal. Lungs clear to auscultation. CARDIOVASCULAR: First and second sounds normal. Mild edema ABDOMEN: Soft. Liver and spleen not palpable. No tenderness. No mass palpable. PSYCHIATRY: Alert and oriented x3. Mood and affect normal. INVESTIGATIONS, reviewed in the clinical context: WBC 15.3 hemoglobin 10.6 platelets 343 potassium 5.7 BUN 60 creatinine 2.06 bicarb 21 AST 262 ALT 257 Renal ultrasound: Suboptimal study. But no hydronephrosis reported. Assessment and plan: -Acute kidney injury secondary to ATN likely from hypo-tension Normal saline. Follow labs. Nephrology. Hold Lasix, Aldactone, lisinopril -Hyperkalemia secondary to acute kidney injury Kayexalate 30 g given -Metabolic acidosis due to acute kidney injury Sodium bicarbonate -Coronary artery disease with history of stent Aspirin, Plavix, Ranexa -Chronic congestive heart failure Follow clinically -COPD in a previous smoker Symbicort 160/4.52 puffs twice a day -Diabetes mellitus type 2, chronically on insulin NovoLog mix units twice a day. Follow Accu-Cheks. Hold Glucophage -GERD Protonix 40 mg twice a day -Hyperlipidemia Hold Lipitor because of liver function -Essential hypertension Hydralazine 50 mg twice a day Lopressor 75 mg twice a day -Primary osteoarthritis Pain medications needed -Bilateral peripheral neuropathy -Bilateral diabetic foot ulcers with left leg in a cast. Being followed by Dr. Pendleton and of the wound center Consult Dr. Pendleton from [place] -Chronic kidney disease stage III, likely diabetic nephropathy and nephrosclerosis Follow with nephrology -Obstructive sleep apnea, does not use as device -Chronic hypoxic respiratory failure and home oxygen 2 L Oxygen supplementation -Restless leg syndrome Requip 4 mg 3 times a day -Acute UTI with cystitis IV Invanz -Acute hepatitis, could be ischemic: Diagnosis Hold Lipitor. Acute hepatitis panel. Repeat labs in the morning. Continue current medication treatment plan. Hold Lipitor. Repeat liver f unction tests in the morning. IV fluids. Follow with [facility], nephrology
--- NOTE | 2021-02-16 23:31 | P.CONS ---
History of Present Illness - Reason for Consult Consult date: 02/16/21 urosepsis Requesting physician: Medardo Grande - Chief Complaint weakness x 1 day - History of Present Illness History of present illness : Patient is 75-year-old female with a past medical history significant for diabetes mellitus in this patient who did have bilateral diabetic foot ulcer currently being treated at [facility] wound care center patient presented to the [facility] ER yesterday for evaluation of feeling very weak episode of tremors weakness the extremities most noticeable in her hands mild ache to the right shoulder the patient denies having any headache or any fever and no fever has been recorded since admission to the hospital patient presented to hospital did have white count of 13 repeat is 15.3 with a left shift she did have elevated BUN and creatinine as well as elevated lactic acid and liver enzymes patient did have a positive UA wallace PCR was negative patient did have a chest x-ray pleural diaphragmatic scarring no other acute changes patient did have a abdominal bladder ultrasound suboptimal study but no hydronephrosis is seen bilaterally patient did have multiple antibiotic allergies he was started on Invanz infectious was consulted for further management of antibiotics and underlying UTI/sepsis Review of system: CONSTITUTIONAL: Positive for weakness however denies fever. EYES: No complaint. ENT: No complaint. RESPIRATORY: No complaint. CARDIOVASCULAR: No complaint. GENITOURINARY: Concentrated urine no suprapubic or flank pain . GASTROINTESTINAL: No complaint. MUSCULOSKELETAL: No complaint. INTEGUMENTARY: No complaint. PSYCHOLOGIC: No complaint. ENDOCRINE: No complaint. NEUROLOGIC: No complaint. Past medical history : Reviewed, documented below Past surgical history : Reviewed, documented below Social history: Reviewed, documented below Medications: Reviewed, as documented below EXAMINATION: Vital sigans= Reviewed and documented below GENERAL DESCRIPTION: Elderly female lying in bed, no distress. No tachypnea or accessory muscle of respiration use. HEENT: Shows Pallor , no scleral icterus. Oral mucous membrane is dry. NECK: Trachea central, no thyromegaly. LUNGS: Unlabored breathing. Clear to auscultation anteriorly. No wheeze or crackle. HEART: S1, S2, regular rate and rhythm. ABDOMEN: Soft, no tenderness , guarding or rigidity EXTREMITIES: Bilateral feet wounds are currently dressed with a total contact cast to the left foot and leg area. SKIN: No rash, no masses palpable. NEUROLOGICAL: The patient is awake, alert, oriented x3, mood and affect normal. LABS AND RADIOLOGY: Reviewed results see below Assessment :1- Patient presented to hospital with weakness tremors in this patient on presentation to the hospital did have a elevated white count positive UA concerning for asymptomatic urinary tract infection 2-bilateral diabetic foot ulcer no cellulitis 3-patient with multiple antibiotic allergies that would limit the number of antibiotics safe to use Plan: 1-patient to continue with Invanz while waiting for the culture to finalize 2-gentle IV fluid 3-dry Aquacel dressing to the right foot wound and keep the total contact cast to the left foot wound We will follow on clinical condition and cultures to further adjust medication if needed Thank you for this consultation we will follow the patient along with you Past Medical History Past Medical History: Asthma, Coronary Artery Disease (CAD), Chest Pain / Angina, Heart Failure, COPD, Diabetes Mellitus, Deep Vein Thrombosis (DVT), GERD/Reflux, Hyperlipidemia, Hypertension, Myocardial Infarction (DE), Osteoarthritis (OA), Pneumonia, Renal Disease, Skin Disorder, Sleep Apnea/CPAP/BIPAP Additional Past Medical History / Comment(s): Other hx: MIs with last DE 11/2019 with cardiogenic shock/pulmonary edema/respiratory failure, cardiomyopathy, NIDDM type II, neuropathy bilateral feet, bilateral diabetic foot ulcers, past cellulitis, pneumonias, past R lung pne with empyema/surgery, gastritis, colitis/frequent diarrhea, benign colon polyps, renal disease stage III, IRA with no device used d/t severe clausterphobia, home oxygen at 2L/NC, occasional lower leg edema, RLS, recent fall with bruising, laquita feet lt foot 2nd toe wound has lt foot cast Last Myocardial Infarction Date:: 2020 History of Any Multi-Drug Resistant Organisms: None Reported Past Surgical History: Appendectomy, Breast Surgery, Cholecystectomy, Heart Catheterization, Heart Catheterization With Stent Additional Past Surgical History / Comment(s): PCI with stents, R lung thoracotomy/decortication for empyema, bilateral feet/sores debrided, L breast benign bx, colonoscopy/benign polypectomy, EGD Past Anesthesia/Blood Transfusion Reactions: No Reported Reaction Additional Past Anesthesia/Blood Transfusion Reaction / Comm: severe claustrophobia Date of Last Stent Placement:: 11/27/19 Past Psychological History: No Psychological Hx Reported Additional Psychological History / Comment(s): Severe claustrophobia. Pt resid es alone in her home. She has 14 stair steps to get up to her bathroom/bedroom. She is established with [facility]- a nurse for wound care and PT and has Dr. Kebede for home wound care. Smoking Status: Former smoker Past Alcohol Use History: None Reported Additional Past Alcohol Use History / Comment(s): STARTED SMOKING AGE 18 (1963) AND QUIT 1994. SMOKED 1 PPD. STATES SHE IS AN ALCOHOLIC AND QUIT DRINKING over 30 yrs ago Past Drug Use History: None Reported - Past Family History Brother(s) Family Medical History: Cancer Additional Family Medical History / Comment(s): Colon cancer Father Family Medical History: Chest Pain / Angina Additional Family Medical History / Comment(s): Father of a DE at the age of 77yrs. Mother Family Medical History: Chest Pain / Angina Additional Family Medical History / Comment(s): Mother of a DE at the age of 74yrs. Medications and Allergies Home Medications Medication Instructions Recorded Confirmed Type Montelukast Sodium [Singulair] 10 mg PO HS #30 tab 10/25/15 02/15/21 Rx Dulaglutide [Trulicity] 1.5 mg SQ KISER 08/15/19 02/15/21 History Insulin Aspart Protam & Aspart 30 unit SQ BID 08/15/19 02/15/21 History [NovoLOG MIX 70-30 Flexpen] Ranolazine [Ranexa] 500 mg PO Q12HR #60 tab.er.12h 11/08/19 02/15/21 Rx Atorvastatin [Lipitor] 80 mg PO HS 02/09/20 02/15/21 History metFORMIN HCL [Glucophage] 1,000 mg PO BID 02/09/20 02/15/21 History HYDROcodone/APAP 7.5-325MG [[place] 1 tab PO Q6H 04/12/20 02/15/21 History 7.5-325] Pantoprazole [Protonix] 40 mg PO AC-BID 30 Days #60 07/08/20 02/15/21 Rx tablet. Spironolactone [Aldactone] 25 mg PO DAILY 90 Days #90 tab 07/08/20 02/15/21 Rx Budesonide/Formoterol Fumarate 2 puff INHALATION RT-BID 09/30/20 02/15/21 History [Symbicort 160-4.5 Mcg Inhaler] lisinopriL [Zestril] 20 mg PO BID 09/30/20 02/15/21 History Furosemide [Lasix] 40 mg PO DAILY tab 10/04/20 02/15/21 Rx Isosorbide Mononitrate ER [Imdur] 60 mg PO DAILY 12/01/20 02/15/21 History Metoclopramide [Reglan] 10 mg PO QID PRN 12/01/20 02/15/21 History Metoprolol Tartrate [Lopressor] 75 mg PO BID 12/01/20 02/15/21 History Sucralfate [Carafate] 1 gm PO QID 12/01/20 02/15/21 History Tiotropium 18 Mcg/Puff [Spiriva] 1 puff INHALATION RT-BID 12/01/20 02/15/21 History hydrALAZINE HCL [Apresoline] 50 mg PO BID 12/01/20 02/15/21 History rOPINIRole HCL [Requip] 4 mg PO TID 12/01/20 02/15/21 History Ferrous Sulfate [Iron (65 MG 325 mg PO DAILY 12/15/20 02/15/21 History Elemental)] Aspirin 81 mg PO DAILY chew 12/18/20 02/15/21 Rx Clopidogrel [Plavix] 75 mg PO DAILY tab 12/18/20 02/15/21 Rx Nitroglycerin Sl Tabs [Nitrostat] 0.4 mg SUBLINGUAL Q5M PRN tab 12/18/20 02/15/21 Rx Allergies Allergy/AdvReac Type Severity Reaction Status Date / Time amoxicillin [From Augmentin] Allergy Rash/Hives Verified 02/15/21 19:23 cefuroxime Allergy Unknown Verified 02/15/21 19:23 ciprofloxacin [From Cipro] Allergy Unknown Verified 02/15/21 19:23 clavulanic acid Allergy Rash/Hives Verified 02/15/21 19:23 [From Augmentin] doxycycline Allergy Unknown Verified 02/15/21 19:23 metronidazole [From Flagyl] Allergy Nausea & Verified 02/15/21 19:23 Vomiting adhesive tape AdvReac bruises,"paper Verified 02/15/21 19:23 tape is ok" albuterol AdvReac Rapid Verified 02/15/21 19:23 Heart Rate stress test injection Allergy Anaphylaxis Uncoded 02/15/21 19:23 Physical Exam Vitals: Vital Signs Temp Pulse Pulse Resp BP BP BP 02/16/21 14:13 77 135/67 02/16/21 13:59 137/74 02/16/21 12:03 76 02/16/21 11:51 72 02/16/21 08:47 72 02/16/21 08:32 72 02/16/21 07:00 98.2 F 74 17 143/69 02/16/21 02:00 97.6 F 78 20 169/85 02/15/21 22:23 43 L 18 02/15/21 21:59 98.2 F 63 18 115/63 02/15/21 20:53 40 L 18 106/53 02/15/21 18:48 41 L 18 103/34 02/15/21 17:48 40 L 18 96/37 02/15/21 16:50 20 02/15/21 16:45 97.8 F 44 L 20 96/58 Pulse Ox 02/16/21 14:13 02/16/21 13:59 02/16/21 12:03 02/16/21 11:51 02/16/21 08:47 02/16/21 08:32 02/16/21 07:00 95 02/16/21 02:00 95 02/15/21 22:23 02/15/21 21:59 100 02/15/21 20:53 100 02/15/21 18:48 97 02/15/21 17:48 97 02/15/21 16:50 02/15/21 16:45 99 Intake and Output 02/15/21 02/16/21 02/16/21 22:59 06:59 14:59 Output Total 3300 Balance -3300 Output: Urine 2100 Post Void Residual 1200 Other: Voiding Method Bedside Commode Bedside Commode External Catheter External Catheter # Voids 0 Weight 114.305 kg Results CBC & Chem 7: 02/16/21 04:17 02/16/21 16:30 Labs: Abnormal Lab Results - Last 24 Hours (Table) 02/15/21 02/15/21 02/15/21 Range/Units 18:09 18:09 18:09 WBC 13.0 H (3.8-10.6) k/uL Hgb 9.3 L (11.4-16.0) gm/dL Hct 31.5 L (34.0-46.0) % MCV 78.4 L (80.0-100.0) fL MCH 23.2 L (25.0-35.0) pg MCHC 29.5 L (31.0-37.0) g/dL RDW 17.7 H (11.5-15.5) % Neutrophils # 10.2 H (1.3-7.7) k/uL Monocytes # (0-1.0) k/uL APTT 21.7 L (22.0-30.0) sec Sodium 131 L (137-145) mmol/L Potassium 6.0 H (3.5-5.1) mmol/L Carbon Dioxide 16 L (22-30) mmol/L BUN 57 H (7-17) mg/dL Creatinine 1.95 H (0.52-1.04) mg/dL Glucose 126 H (74-99) mg/dL POC Glucose (mg/dL) (75-99) mg/dL Plasma Lactic Acid Mesfin (0.7-2.0) mmol/L AST 62 H (14-36) U/L ALT 44 H (4-34) U/L Urine Appearance (Clear) Urine Blood (Negative) Ur Leukocyte Esterase (Negative) Urine RBC (0-5) /hpf Urine WBC (0-5) /hpf Urine WBC Clumps (None) /hpf Ur Squamous Epith Cells (0-4) /hpf Urine Bacteria (None) /hpf Hyaline Casts (0-2) /lpf Urine Mucus (None) /hpf 02/15/21 02/15/21 02/15/21 Range/Units 18:09 19:04 20:57 WBC (3.8-10.6) k/uL Hgb (11.4-16.0) gm/dL Hct (34.0-46.0) % MCV (80.0-100.0) fL MCH (25.0-35.0) pg MCHC (31.0-37.0) g/dL RDW (11.5-15.5) % Neutrophils # (1.3-7.7) k/uL Monocytes # (0-1.0) k/uL APTT (22.0-30.0) sec Sodium (137-145) mmol/L Potassium (3.5-5.1) mmol/L Carbon Dioxide (22-30) mmol/L BUN (7-17) mg/dL Creatinine (0.52-1.04) mg/dL Glucose (74-99) mg/dL POC Glucose (mg/dL) (75-99) mg/dL Plasma Lactic Acid Mesfin 3.4 H* 3.8 H* (0.7-2.0) mmol/L AST (14-36) U/L ALT (4-34) U/L Urine Appearance Turbid H (Clear) Urine Blood Small H (Negative) Ur Leukocyte Esterase Large H (Negative) Urine RBC 26 H (0-5) /hpf Urine WBC >182 H (0-5) /hpf Urine WBC Clumps Many H (None) /hpf Ur Squamous Epith Cells 8 H (0-4) /hpf Urine Bacteria Many H (None) /hpf Hyaline Casts 6 H (0-2) /lpf Urine Mucus Rare H (None) /hpf 02/16/21 02/16/21 02/16/21 Range/Units 00:11 04:17 05:56 WBC 15.3 H (3.8-10.6) k/uL Hgb 10.6 L (11.4-16.0) gm/dL Hct (34.0-46.0) % MCV 78.1 L (80.0-100.0) fL MCH 23.2 L (25.0-35.0) pg MCHC 29.7 L (31.0-37.0) g/dL RDW 17.8 H (11.5-15.5) % Neutrophils # 12.2 H (1.3-7.7) k/uL Monocytes # 1.1 H (0-1.0) k/uL APTT (22.0-30.0) sec Sodium 133 L (137-145) mmol/L Potassium 5.7 H (3.5-5.1) mmol/L Carbon Dioxide 21 L (22-30) mmol/L BUN 60 H (7-17) mg/dL Creatinine 2.06 H (0.52-1.04) mg/dL Glucose (74-99) mg/dL POC Glucose (mg/dL) (75-99) mg/dL Plasma Lactic Acid [place]fin 2.2 H* (0.7-2.0) mmol/L AST 262 H (14-36) U/L ALT 257 H (4-34) U/L Urine Appearance (Clear) Urine Blood (Negative) Ur Leukocyte Esterase (Negative) Urine RBC (0-5) /hpf Urine WBC (0-5) /hpf Urine WBC Clumps (None) /hpf Ur Squamous Epith Cells (0-4) /hpf Urine Bacteria (None) /hpf Hyaline Casts (0-2) /lpf Urine Mucus (None) /hpf 02/16/21 Range/Units 13:03 WBC (3.8-10.6) k/uL Hgb (11.4-16.0) gm/dL Hct (34.0-46.0) % MCV (80.0-100.0) fL MCH (25.0-35.0) pg MCHC (31.0-37.0) g/dL RDW (11.5-15.5) % Neutrophils # (1.3-7.7) k/uL Monocytes # (0-1.0) k/uL APTT (22.0-30.0) sec Sodium (137-145) mmol/L Potassium (3.5-5.1) mmol/L Carbon Dioxide (22-30) mmol/L BUN (7-17) mg/dL Creatinine (0.52-1.04) mg/dL Glucose (74-99) mg/dL POC Glucose (mg/dL) 139 H (75-99) mg/dL Plasma Lactic Acid Mesfin (0.7-2.0) mmol/L AST (14-36) U/L ALT (4-34) U/L Urine Appearance (Clear) Urine Blood (Negative) Ur Leukocyte Esterase (Negative) Urine RBC (0-5) /hpf Urine WBC (0-5) /hpf Urine WBC Clumps (None) /hpf Ur Squamous Epith Cells (0-4) /hpf Urine Bacteria (None) /hpf Hyaline Casts (0-2) /lpf Urine Mucus (None) /hpf Microbiology - Last 24 Hours (Table) 02/15/21 19:04 Urine Culture - Preliminary Urine,Voided
[2021-02-17] MEDS: HYDROcodone/APAP 7.5-325MG 1 EACH TAB PO SCH ×4 (02:15→22:06)
[2021-02-17] MEDS: NITROGLYCERIN SL TABS 0.4 MG TAB SUBLINGUAL PRN ×2 (02:15→02:19)
[2021-02-17 05:46] LABS: Anisocytosis Slight; Basophils % (A) 0 %; Eosinophils # (A) 0.3 k/uL (0-0.7); Eosinophils % (A) 2 %; HCT 32.2 % (34.0-46.0); HGB 9.6 gm/dL (11.4-16.0); Hypochromasia Moderate; Lymphocytes # (A) 1.5 k/uL (1.0-4.8); Lymphocytes % (A) 13 %; MCHC 29.9 g/dL (31.0-37.0); MCV 76.9 fL (80.0-100.0); Mean Platelet Volume 7.2; Microcytosis Slight; Monocytes # (A) 0.6 k/uL (0-1.0); Monocytes % (A) 5 %; Neutrophils # (A) 8.9 k/uL (1.3-7.7); Neutrophils % (A) 78 %; Platelet Count 352 k/uL (150-450); Poikilocytosis Slight; RBC 4.19 m/uL (3.80-5.40); RDW 18.2 % (11.5-15.5); WBC 11.4 k/uL (3.8-10.6)
[2021-02-17 06:32] LABS: ALT 215 U/L (4-34); AST 121 U/L (14-36); Albumin 3.6 g/dL (3.5-5.0); Albumin/Globulin Ratio 1.3; Alkaline Phosphatase 107 U/L (38-126); Globulin 2.7 g/dL; Total Bilirubin 0.5 mg/dL (0.2-1.3); Total Protein 6.3 g/dL (6.3-8.2)
[2021-02-17 07:34] LABS: Glucose,Whole Blood 112 mg/dL (75-99)
[2021-02-17 08:01] LABS: African American GFR (CKD) 70 (>60 ml/min/1.73 sqM); Anion Gap 8 mmol/L; Blood Urea Nitrogen 34 mg/dL (7-17); Calcium 9.3 mg/dL (8.4-10.2); Carbon Dioxide 23 mmol/L (22-30); Chloride 105 mmol/L (98-107); Glucose 104 mg/dL (74-99); Magnesium 1.9 mg/dL (1.6-2.3); Non-African American GFR(CKD) 61 (>60 ml/min/1.73 sqM); Potassium 4.5 mmol/L (3.5-5.1); Sodium 136 mmol/L (137-145)
[2021-02-17] MEDS: IPRATROPIUM 0.5 MG/2.5 ML NEBU INHALATION SCH ×4 (08:05→19:50)
[2021-02-17] MEDS: FERROUS SULFATE 325 MG TAB PO SCH (08:31)
[2021-02-17] MEDS: metFORMIN 500 MG TAB PO SCH ×2 (08:32→22:06)
[2021-02-17] MEDS: rOPINIRole HCL 4 MG TABLET PO SCH ×3 (08:32→23:26)
[2021-02-17] MEDS: ASPIRIN 81 MG PO SCH (08:32)
[2021-02-17] MEDS: ISOSORBIDE MONONITRATE ER 60 MG TAB.ER.24H PO SCH (08:32)
[2021-02-17] MEDS: RANOLAZINE 500 MG TAB.ER.12H PO SCH ×2 (08:33→22:07)
[2021-02-17] MEDS: INSULN ASP PRT/INSULIN ASPART 100 UNIT/ML 10 ML VIAL SQ SCH ×2 (08:49→17:27)
[2021-02-17] MEDS: PANTOPRAZOLE 40 MG TABLET PO SCH ×2 (08:49→16:38)
[2021-02-17] MEDS: CLOPIDOGREL 75 MG TAB PO SCH (08:49)
--- NOTE | 2021-02-17 10:09 | P.PN ---
Subjective HISTORY OF PRESENTING ILLNESS Patient is a pleasant 75-year-old female with history of coronary artery disease with numerous stenting, diabetes mellitus, hypertension, mild CK D who presented to the hospital 02/15/2021 with weakness, lack of energy, shortness breath. She states she was started on a new medication approximately one week ago for r estless leg syndrome and believes there may been a complication from that. She initially presented with feeling shaky and off balance and lightheaded when she was standing and believes it may have been related to her medications. She was initially found to be in acute kidney injury and given IV fluids and PAPI inhibitor was held. 02/17/2021 Patient seen and examined. Patient admits the last few mornings she has been having a chest pressure/congestion that does not feel anything like her prior MIs. She states previously with her [facility] at felt like a substernal this pain with diaphoresis and shortness breath and this just feels more like a pressure and believes she may be "coming down with a cold". She admits to mild shortness breath. She denies any cough. Blood work shows white blood cell 11.4, hemoglobin 9.6, sodium 136, BUN 34, creatinine 0.9. She does have chronic lower extremity edema related to chronic venous insufficiency and admits she does not keep her legs elevated enough. PHYSICAL EXAMINATION Vital signs reviewed. CONSTITUTIONAL: No apparent distress. HEENT: Head is normocephalic. Pupils are equal, round. Sclerae anicteric. Mucous membranes of the mouth are moist. No JVD. No carotid bruit. CHEST EXAMINATION: Lungs are clear to auscultation. No chest wall tenderness is noted on palpation or with deep breathing. HEART EXAMINATION: Regular rate and rhythm. S1, S2 heard. No murmurs, gallops or rub. ABDOMEN: Soft, nontender. Positive bowel sounds. EXTREMITIES: 2+ peripheral pulses, no lower extremity edema and no calf tenderness. NEUROLOGIC EXAMINATION: Patient is awake, alert and oriented x3. ASSESSMENT 1. Atypical chest pain, not similar to her prior angina per patient 2. Coronary artery disease with history of PCI 3. Diabetes mellitus type 2 4. Presentation with lightheadedness, shaky. May have been from new medication started 1 week ago 5. Acute kidney injury, improving 6. Fatigue, shortness breath 7. Chronic venous insufficiency 8. Elevated AST, ALT 9. Chronic systolic heart failure 10. Cardiomyopathy ejection fraction 35-40% PLAN Continue to hold lisinopril secondary to acute kidney injury however improving. She appears euvolemic at this time. Initial complaints of weakness, legs shaking may be met effect from recent addition of new medication 1 week ago for restless leg syndrome. Continue to hold Lipitor at this time given elevated AST, ALT. Check troponins given atypical chest pain this morning however patient does not believe it feels similar to prior angina. Objective - Vital Signs Vital signs: Vital Signs Temp 97.9 F 02/17/21 07:00 Pulse 90 02/17/21 08:19 Resp 17 02/17/21 07:00 BP 162/84 02/17/21 07:00 Pulse Ox 98 02/17/21 08:07 Intake & Output 02/16/21 02/17/21 02/17/21 18:59 06:59 18:59 Intake Total 180 Output Total 3300 2900 800 Balance -3300 -2900 -620 Intake: Oral 180 Output: Urine 2100 2900 800 Post Void Residual 1200 Other: Voiding Method Bedside Commode Bedside Commode External Catheter - Labs CBC & Chem 7: 02/17/21 05:25 02/17/21 05:25 Labs: Abnormal Lab Results - Last 24 Hours (Table) 02/16/21 02/16/21 02/16/21 Range/Units 13:03 17:25 19:55 WBC (3.8-10.6) k/uL Hgb (11.4-16.0) gm/dL Hct (34.0-46.0) % MCV (80.0-100.0) fL MCH (25.0-35.0) pg MCHC (31.0-37.0) g/dL RDW (11.5-15.5) % Neutrophils # (1.3-7.7) k/uL Sodium (137-145) mmol/L BUN (7-17) mg/dL Glucose (74-99) mg/dL POC Glucose (mg/dL) 139 H 144 H 151 H (75-99) mg/dL AST (14-36) U/L ALT (4-34) U/L 02/17/21 02/17/21 02/17/21 Range/Units 05:25 05:25 07:14 WBC 11.4 H (3.8-10.6) k/uL Hgb 9.6 L (11.4-16.0) gm/dL Hct 32.2 L (34.0-46.0) % MCV 76.9 L (80.0-100.0) fL MCH 23.0 L (25.0-35.0) pg MCHC 29.9 L (31.0-37.0) g/dL RDW 18.2 H (11.5-15.5) % Neutrophils # 8.9 H (1.3-7.7) k/uL Sodium 136 L (137-145) mmol/L BUN 34 H (7-17) mg/dL Glucose 104 H (74-99) mg/dL POC Glucose (mg/dL) 112 H (75-99) mg/dL AST 121 H (14-36) U/L ALT 215 H (4-34) U/L Microbiology - Last 24 Hours (Table) 02/15/21 19:04 Urine Culture - Preliminary Urine,Voided
[2021-02-17 10:32] LABS: Hepatitis A Antibody IgM Nonreactive (Nonreactive); Hepatitis B Core IgM Nonreactive (Nonreactive); Hepatitis B Surface Antigen Nonreactive (Nonreactive); Hepatitis C IgG Antibody Nonreactive (Nonreactive)
[2021-02-17] MEDS ORDERED: HEPARIN SODIUM 1,000 UN/ML (10ML VL) IV PRN (11:22)
[2021-02-17] MEDS ORDERED: HEPARIN SODIUM 1,000 UN/ML (10ML VL) IV ONE (11:22)
[2021-02-17] MEDS: HEPARIN SOD,PORK IN 0.45% NACL 25,000 UNIT in 0.45% NACL 1 250ML.BAG IV SCH (12:17)
[2021-02-17 12:37] LABS: Glucose,Whole Blood 85 mg/dL (75-99)
[2021-02-17 13:43] LABS: INR 1.1 (<1.2); Partial Thromboplastin Time 67.8 sec (22.0-30.0); Prothrombin Time 11.4 sec (9.0-12.0)
[2021-02-17 13:51] LABS: Anisocytosis Slight; Basophils # (A) 0.1 k/uL (0-0.2); Basophils % (A) 0 %; Eosinophils # (A) 0.2 k/uL (0-0.7); Eosinophils % (A) 2 %; HCT 30.8 % (34.0-46.0); HGB 9.6 gm/dL (11.4-16.0); Hypochromasia Moderate; Lymphocytes # (A) 1.8 k/uL (1.0-4.8); Lymphocytes % (A) 17 %; MCH 23.7 pg (25.0-35.0); MCHC 31.2 g/dL (31.0-37.0); MCV 75.8 fL (80.0-100.0); Mean Platelet Volume 7.4; Microcytosis Slight; Monocytes # (A) 0.7 k/uL (0-1.0); Monocytes % (A) 6 %; Neutrophils # (A) 7.9 k/uL (1.3-7.7); Neutrophils % (A) 73 %; Platelet Count 365 k/uL (150-450); Poikilocytosis Slight; RBC 4.06 m/uL (3.80-5.40); RDW 18.1 % (11.5-15.5); WBC 10.8 k/uL (3.8-10.6)
[2021-02-17 16:44] LABS: Glucose,Whole Blood 121 mg/dL (75-99)
[2021-02-17 19:54] LABS: Glucose,Whole Blood 96 mg/dL (75-99)
[2021-02-17] MEDS: ERTAPENEM 0.5 GM in SODIUM CHLORIDE 0.9% 50 ML IVPB SCH (22:07)
[2021-02-17] MEDS: MONTELUKAST 10 MG TAB PO SCH (22:07)
[2021-02-18 03:24] LABS: Anisocytosis Slight; Basophils # (A) 0.1 k/uL (0-0.2); Basophils % (A) 1 %; Eosinophils # (A) 0.3 k/uL (0-0.7); Eosinophils % (A) 3 %; HCT 31.7 % (34.0-46.0); HGB 9.9 gm/dL (11.4-16.0); Hypochromasia Moderate; Lymphocytes # (A) 3.4 k/uL (1.0-4.8); Lymphocytes % (A) 26 %; MCH 23.8 pg (25.0-35.0); MCHC 31.2 g/dL (31.0-37.0); MCV 76.3 fL (80.0-100.0); Mean Platelet Volume 7.8; Microcytosis Slight; Monocytes # (A) 0.9 k/uL (0-1.0); Monocytes % (A) 7 %; Neutrophils # (A) 7.8 k/uL (1.3-7.7); Neutrophils % (A) 61 %; Platelet Count 401 k/uL (150-450); Poikilocytosis Slight; RBC 4.15 m/uL (3.80-5.40); RDW 18.2 % (11.5-15.5); WBC 12.9 k/uL (3.8-10.6)
[2021-02-18 03:34] LABS: Partial Thromboplastin Time 43.3 sec (22.0-30.0); Prothrombin Time 10.4 sec (9.0-12.0)
[2021-02-18] MEDS: ONDANSETRON 4 MG/2 ML VIAL IVP PRN (03:34)
[2021-02-18 05:39] LABS: Glucose,Whole Blood 141 mg/dL (75-99)
[2021-02-18] MEDS: HEPARIN SOD,PORK IN 0.45% NACL 25,000 UNIT in 0.45% NACL 1 250ML.BAG IV SCH (06:52)
[2021-02-18] MEDS: PANTOPRAZOLE 40 MG TABLET PO SCH ×2 (06:55→16:56)
[2021-02-18] MEDS: IPRATROPIUM 0.5 MG/2.5 ML NEBU INHALATION SCH ×4 (07:16→19:12)
[2021-02-18] MEDS: CLOPIDOGREL 75 MG TAB PO SCH (08:08)
[2021-02-18] MEDS: ISOSORBIDE MONONITRATE ER 60 MG TAB.ER.24H PO SCH (08:08)
[2021-02-18] MEDS: FERROUS SULFATE 325 MG TAB PO SCH (08:08)
[2021-02-18] MEDS: ASPIRIN 81 MG PO SCH (08:08)
[2021-02-18] MEDS: rOPINIRole HCL 4 MG TABLET PO SCH ×3 (08:09→22:53)
[2021-02-18] MEDS: metFORMIN 500 MG TAB PO SCH ×2 (08:09→22:51)
[2021-02-18] MEDS: RANOLAZINE 500 MG TAB.ER.12H PO SCH ×2 (08:09→22:51)
[2021-02-18] MEDS: INSULN ASP PRT/INSULIN ASPART 100 UNIT/ML 10 ML VIAL SQ SCH ×2 (08:11→16:49)
[2021-02-18] MEDS: carvediloL 6.25 MG TAB PO SCH ×2 (10:30→16:56)
[2021-02-18 11:32] LABS: Glucose,Whole Blood 135 mg/dL (75-99)
--- NOTE | 2021-02-18 11:35 | HP ---
HISTORY AND PHYSICAL Patient was admitted with urosepsis, weakness and atypical chest pain. She came in because she was having shaking and tremors to her extremities and weakness in her extremities. She was found to have urosepsis, lactic acidosis. UA, wallace PCR was negative. No hydronephrosis was seen. She has MULTIPLE ANTIBIOTIC ALLERGIES. She was started on IV Ancef. Infectious Disease was consulted for UTI and sepsis. Cardiology is to see her for elevated troponin. weakness. No fevers. Tremor, shakiness as mentioned above. Past medical history, surgical history and social history: See old chart. PHYSICAL EXAMINATION: Vital signs stable. Afebrile. She is an obese white female in no acute distress. Trachea is midline. Lungs are clear. Cardiac: S1, S2. ABDOMEN: Soft. No guarding. Bilateral feet wounds are currently dressed with total contact cast to the left foot and leg area. Alert and oriented x3. She has weakness, tremors. UTI with urosepsis. Bilateral diabetic foot ulcers with no cellulitis. MULTIPLE ANTIBIOTIC ALLERGIES. Infectious Disease agreed to continue with Invanz, IV fluid and Aquacel Silver. Elevated troponins. Cardiology will evaluate for possible heart catheterization. MMODL / IJN: [id number] /
--- NOTE | 2021-02-18 11:35 | PN ---
PROGRESS NOTE DATE OF SERVICE: 02/17/2021 REASON FOR FOLLOWUP: 1. Urinary tract infection. 2. Bilateral diabetic foot ulcers. INTERVAL HISTORY: The patient is afebrile. The patient is breathing slightly comfortably. The patient denies having any chest pain or cough. No abdominal pain or pain to the bilateral foot wound areas. PHYSICAL EXAMINATION: Blood pressure 179/80 with a pulse of 84, temperature 97. She is 95% on 3 L nasal cannula. General description is an elderly female up in the bed in no distress. RESPIRATORY SYSTEM: Unlabored breathing. Decreased intensity of breath sounds. No wheeze. HEART: S1, S2. Regular rate and rhythm. ABDOMEN: Soft. No tenderness. LABS: Hemoglobin is 9.3, white count 10.8. Urine is showing Gram-negative bacilli. DIAGNOSTIC IMPRESSION AND PLAN: 1. Patient admitted to hospital with weakness, multifactorial, in this patient who did have a possible component of Gram-negative urinary tract infection with MULTIPLE ANTIBIOTIC ALLERGIES, currently covered with Invanz; to continue while waiting for the culture to finalize. 2. Patient with bilateral diabetic foot ulcers. No cellulitis. Local care to continue as ordered. Monitor clinical course closely. MMODL / IJN: [id number] /
--- NOTE | 2021-02-18 13:49 | P.PN ---
Subjective Progress Note Date: 02/18/21 HISTORY OF PRESENT ILLNESS: Patient is a pleasant 75-year-old female with history of coronary artery disease with numerous stenting, diabetes mellitus, hypertension, mild CK D who presented to the hospital 02/15/2021 with weakness, lack of energy, shortness breath. She states she was started on a new medication approximately one week ago for restless leg syndrome and believes there may been a complication from that. She initially presented with feeling shaky and off balance and lightheaded when she was standing and believes it may have been related to her medications. She was initially found to be in acute kidney injury and given IV fluids and PAPI inhibitor was held. 02/17/2021 Patient seen and examined. Patient admits the last few mornings she has been having a chest pressure/congestion that does not feel anything like her prior MIs. She states previously with her [place] at felt like a substernal this pain with diaphoresis and shortness breath and this just feels more like a pressure and believes she may be "coming down with a cold". She admits to mild shortness breath. She denies any cough. Blood work shows white blood cell 11.4, hemoglobin 9.6, sodium 136, BUN 34, creatinine 0.9. She does have chronic lower extremity edema related to chronic venous insufficiency and admits she does not keep her legs elevated enough. 02/18/2021 Patient examined this morning at the bedside. Patient denies chest pain or pressure. She denies shortnesss of breath. Vital signs are stable. Echo reveals EF 45-50%, basal inferior LV wall hypokinesis, apical lateral LV hypokinesis, and severe pulmonary hypertension. PHYSICAL EXAM: VITAL SIGNS: Reviewed. GENERAL: Well-developed in no acute distress. NECK: Supple. No JVD or thyromegaly LUNGS: Respirations even and unlabored. Lungs essentially clear to auscultation bilaterally. HEART: Regular rate and rhythm. S1 and S2 heard. EXTREMITIES: Normal range of motion. No clubbing or cyanosis. Peripheral pulses intact. No lower extremity edema ASSESSMENT: Chest pain NSTEMI Coronary artery disease with previous PCI Acute kidney injury, resolved Elevated LFTs Chronic systolic heart failure Ischemic cardiomyopathy with ejection fraction 35-40% PLAN: Discontinue IV heparin per Dr. Rios Begin coreg 6.25mg BID Continue additional cardiac medications Statin on hold due to LFTs PAPI/ARB on hold due to JAZZ, although resolving. May resume outpatient. No plans for cardiac cath at this time secondary to JAZZ on admission to the hospital. Patient may follow up on an outpatient basis. Further recommendations pending patient course Nurse practitioner note has been reviewed by physician. Signing provider agrees with the documented findings, assessment, and plan of care. Objective - Vital Signs Vital signs: Vital Signs Temp 97.6 F 02/18/21 12:00 Pulse 79 02/18/21 12:00 Resp 18 02/18/21 12:00 BP 169/73 02/18/21 12:00 Pulse Ox 97 02/18/21 12:00 Intake & Output 02/17/21 02/18/21 02/18/21 18:59 06:59 18:59 Intake Total 200 232.886 240 Output Total 1400 1000 Balance -1200 -767.114 240 Weight 115.8 kg Intake: Intake, IV Titration 20 232.886 Amount Heparin Sod,Pork in 0.45% 20 232.886 NaCl 25,000 unit In 0.45 % NaCl 1 250ml.bag @ 8. 748 UNITS/KG/HR 9.999 mls /hr IV .Q24H ANDREW Rx#: [id number] Oral 180 240 Output: Urine 1400 1000 Other: Voiding Method Bedside Commode Bedside Commode Bedside Commode # Voids 1 1 1 - Labs CBC & Chem 7: 02/18/21 02:29 02/17/21 05:25 Labs: Abnormal Lab Results - Last 24 Hours (Table) 02/17/21 02/17/21 02/17/21 Range/Units 12:51 12:51 12:51 WBC 10.8 H (3.8-10.6) k/uL Hgb 9.6 L (11.4-16.0) gm/dL Hct 30.8 L (34.0-46.0) % MCV 75.8 L (80.0-100.0) fL MCH 23.7 L (25.0-35.0) pg RDW 18.1 H (11.5-15.5) % Neutrophils # 7.9 H (1.3-7.7) k/uL APTT 67.8 H (22.0-30.0) sec POC Glucose (mg/dL) (75-99) mg/dL Troponin I 0.278 H* (0.000-0.034) ng/mL 02/17/21 02/17/21 02/18/21 Range/Units 16:20 18:58 02:29 WBC 12.9 H (3.8-10.6) k/uL Hgb 9.9 L (11.4-16.0) gm/dL Hct 31.7 L (34.0-46.0) % MCV 76.3 L (80.0-100.0) fL MCH 23.8 L (25.0-35.0) pg RDW 18.2 H (11.5-15.5) % Neutrophils # 7.8 H (1.3-7.7) k/uL APTT 31.3 H (22.0-30.0) sec POC Glucose (mg/dL) 121 H (75-99) mg/dL Troponin I (0.000-0.034) ng/mL 02/18/21 02/18/21 02/18/21 Range/Units 02:29 05:38 08:53 WBC (3.8-10.6) k/uL Hgb (11.4-16.0) gm/dL Hct (34.0-46.0) % MCV (80.0-100.0) fL MCH (25.0-35.0) pg RDW (11.5-15.5) % Neutrophils # (1.3-7.7) k/uL APTT 43.3 H 51.2 H (22.0-30.0) sec POC Glucose (mg/dL) 141 H (75-99) mg/dL Troponin I (0.000-0.034) ng/mL 02/18/21 Range/Units 11:30 WBC (3.8-10.6) k/uL Hgb (11.4-16.0) gm/dL Hct (34.0-46.0) % MCV (80.0-100.0) fL MCH (25.0-35.0) pg RDW (11.5-15.5) % Neutrophils # (1.3-7.7) k/uL APTT (22.0-30.0) sec POC Glucose (mg/dL) 135 H (75-99) mg/dL Troponin I (0.000-0.034) ng/mL Microbiology - Last 24 Hours (Table) 02/15/21 19:04 Urine Culture - Preliminary Urine,Voided Citrobacter braakii
[2021-02-18] MEDS: HYDROcodone/APAP 7.5-325MG 1 EACH TAB PO SCH ×4 (14:49→22:52)
[2021-02-18 16:44] LABS: Glucose,Whole Blood 149 mg/dL (75-99)
--- NOTE | 2021-02-18 17:28 | PN ---
PROGRESS NOTE Patient is being seen for followup for acute kidney injury. Serum creatinine had improved to 0.9 from 1.9 and 2.0 initially. She currently denies any significant complaints. Patient has been voiding. On examination today, blood pressure is 123/60, heart rate 80 per minute. She is afebrile. EXAMINATION OF THE HEART: S1 and S2. EXAMINATION OF LUNGS: Bilateral breath sounds are heard. Abdomen is soft, non-tender. Examination of lower extremities shows 1+ edema. FISH ROD MAKER EXAM: Grossly intact. Labs are not available from today. On February 17, sodium 136, potassium 4.5, BUN 34, creatinine 0.94, hemoglobin 9.6 g/dL. ASSESSMENT: 1. Acute kidney injury, mostly prerenal, currently improved with IV hydration. Creatinine was down to 0.9 yesterday. Continue off of IV fluids for now. 2. Urinary tract infection with urine culture growing Citrobacter braakii, maintained on ertapenem. 3. Mild volume overload. I will give her a dose of IV Lasix today. 4. Type 2 diabetes. 5. Hyperkalemia associated acute kidney injury, metabolic acidosis, currently improved. 6. Lactic acidosis, now improved. PLAN: Repeat labs in a.m. IV Lasix x1. Continue off of IV fluids. MMODL / IJN: [id number] /
--- NOTE | 2021-02-18 17:32 | PN ---
PROGRESS NOTE DATE OF SERVICE: 02/17/2021 Patient is seen for followup for acute kidney injury. She was admitted with a creatinine of around 1.9, which increased to 2.0 yesterday. Patient states overall she is feeling better. She is status post IV fluids. She has had good urine output. On examination, blood pressure 162/84, heart rate of 80 per minute. Patient is afebrile. EXAMINATION OF THE HEART: S1 and S2. EXAMINATION OF LUNGS: Bilateral breath sounds are heard. Abdomen is soft, non-tender, obese. Examination of lower extremities shows edema 1+ bilaterally. CENTRAL OFFICE WORKER EXAM: Grossly intact. Labs show sodium 136, potassium 4.5, chloride 105. CO2 is 23, BUN 34, creatinine 0.9, hemoglobin 9.6 g/dL. ASSESSMENT: 1. Acute kidney injury, prerenal, currently improved. Patient received IV fluids. She is mildly hypervolemic. I will continue off of fluids. Avoid hypotension and continue to hold off on lisinopril for now. UA is fairly benign. 2. Hyperkalemia associated acute kidney injury, metabolic acidosis and PAPI inhibitors, now improved. 3. Metabolic acidosis secondary to acute kidney injury and lactic acidosis. 4. Urinary tract infection. 5. Type 2 diabetes. PLAN: Continue off of IV fluids. Repeat labs in a.m. Continue to hold PAPI inhibitors for now. MMODL / IJN: [id number] /
[2021-02-18] MEDS ORDERED: BENZONATATE 100 MG CAP PO PRN (17:49)
[2021-02-18 19:53] LABS: Glucose,Whole Blood 160 mg/dL (75-99)
[2021-02-18] MEDS: MONTELUKAST 10 MG TAB PO SCH (22:52)
[2021-02-19 05:37] LABS: Appearance,Urine Cloudy (Clear); Bacteria,Urine Rare /hpf; Bilirubin,Urine Negative (Negative); Blood,Urine Negative (Negative); Color,Urine Yellow; Glucose,Urine (UA) Negative (Negative); Hyaline Casts,Urine 27 /lpf (0-2); Ketones,Urine Negative (Negative); Leukocyte Esterase,Urine Small (Negative); Mucus,Urine Rare /hpf; Nitrite,Urine Negative (Negative); Protein,Urine Trace (Negative); RBC,Urine 1 /hpf (0-5); Specific Gravity,Urine 1.017 (1.001-1.035); Squamous Epithelial Cell,Urine 9 /hpf (0-4); Urobilinogen,Urine <2.0 mg/dL (<2.0); WBC,Urine 6 /hpf (0-5)
--- NOTE | 2021-02-19 05:41 | PN ---
PROGRESS NOTE DATE OF SERVICE: 02/18/2021 REASON FOR FOLLOWUP: 1. Bilateral diabetic foot ulcer. No cellulitis. 2. Urinary tract infection. INTERVAL HISTORY: Patient is afebrile. The patient is breathing comfortably. The patient denies any chest pain. Occasional cough. No abdominal pain or pain to the bilateral lower extremity wound area. PHYSICAL EXAMINATION: Blood pressure 144/67, pulse of 71. Temperature 97.4. She is 95% on 2 L nasal cannula. General description is an elderly female lying in bed in no distress. Respiratory system: Unlabored breathing. Clear to auscultation anteriorly. Heart S1, S2. Regular rate and rhythm. Abdomen soft, no tenderness. LABS: Urine has been finalized with Citrobacter with intermittent sensitivity to Invanz. DIAGNOSTIC IMPRESSION AND PLAN: 1. Patient with Citrobacter urinary tract infection with intermittent sensitivity to Invanz. Antibiotic adjusted to cefepime. Patient does have CEFUROXIME ALLERGIES mostly GI side effect and not true allergy. UA will be repeated. 2. Patient with bilateral diabetic foot ulcer. Local care to continue as ordered and monitor clinical course. MMODL / IJN: [id number] /
[2021-02-19 06:02] LABS: Glucose,Whole Blood 142 mg/dL (75-99)
--- NOTE | 2021-02-19 06:30 | PN ---
PROGRESS NOTE Came in with urosepsis, atypical chest pain, elevated troponins, most likely urosepsis, possible Citrobacter . Sensitive to amikacin and cefepime, oral ciprofloxacin, gentamicin, imipenem, and Levofloxacin. She will be switched to Levaquin, possibly switched home tomorrow as she is much better. Seen by Cardiology and Renal Physicians. Lungs are clear. Cardiovascular S1, S2. Abdomen is soft. Sitting up in bed. ASSESSMENT: 1. Acute on chronic renal injury prerenal. 2. Hyperkalemia. 3. Metabolic acidosis secondary to acute kidney injury. 4. Lactic acidosis. 5. Urinary tract infection. 6. Type 2 diabetes mellitus. Possibly sent home on Levaquin tomorrow. She has MULTIPLE ALLERGIES though, she may have to go home on a different antibiotic. Await for Dr. Perez's recommendations on antibiotics to go home on. MMODL / IJN: [id number] /
[2021-02-19] MEDS: PANTOPRAZOLE 40 MG TABLET PO SCH ×2 (06:37→17:34)
[2021-02-19] MEDS: carvediloL 6.25 MG TAB PO SCH (06:37)
[2021-02-19] MEDS: HYDROcodone/APAP 7.5-325MG 1 EACH TAB PO SCH ×4 (06:39→20:41)
[2021-02-19] MEDS: IPRATROPIUM 0.5 MG/2.5 ML NEBU INHALATION SCH ×4 (08:25→20:06)
[2021-02-19 08:57] LABS: Anisocytosis Slight; Basophils % (A) 0 %; Eosinophils # (A) 0.1 k/uL (0-0.7); Eosinophils % (A) 1 %; HCT 30.9 % (34.0-46.0); HGB 9.1 gm/dL (11.4-16.0); Hypochromasia Marked; Lymphocytes # (A) 1.7 k/uL (1.0-4.8); Lymphocytes % (A) 19 %; MCH 23.2 pg (25.0-35.0); MCHC 29.6 g/dL (31.0-37.0); MCV 78.5 fL (80.0-100.0); Mean Platelet Volume 7.3; Microcytosis Slight; Monocytes # (A) 0.7 k/uL (0-1.0); Monocytes % (A) 8 %; Neutrophils # (A) 6.5 k/uL (1.3-7.7); Neutrophils % (A) 70 %; Platelet Count 308 k/uL (150-450); RBC 3.94 m/uL (3.80-5.40); RDW 18.4 % (11.5-15.5); WBC 9.3 k/uL (3.8-10.6)
[2021-02-19] MEDS: INSULN ASP PRT/INSULIN ASPART 100 UNIT/ML 10 ML VIAL SQ SCH ×2 (09:09→17:34)
[2021-02-19 09:19] LABS: Albumin 3.4 g/dL (3.5-5.0); Calcium 9.1 mg/dL (8.4-10.2); Potassium 5.2 mmol/L (3.5-5.1); Total Bilirubin 0.4 mg/dL (0.2-1.3); Total Protein 6.2 g/dL (6.3-8.2)
[2021-02-19] MEDS: ASPIRIN 81 MG PO SCH (09:20)
[2021-02-19] MEDS: FERROUS SULFATE 325 MG TAB PO SCH (09:20)
[2021-02-19] MEDS: CEFEPIME 2 GM in SODIUM CHLORIDE 0.9% 100 ML IVPB SCH ×2 (09:20→20:33)
[2021-02-19] MEDS: CLOPIDOGREL 75 MG TAB PO SCH (09:20)
[2021-02-19] MEDS: ISOSORBIDE MONONITRATE ER 60 MG TAB.ER.24H PO SCH (09:20)
[2021-02-19] MEDS: rOPINIRole HCL 4 MG TABLET PO SCH ×3 (09:21→20:33)
[2021-02-19] MEDS: metFORMIN 500 MG TAB PO SCH ×2 (09:21→20:33)
[2021-02-19] MEDS: RANOLAZINE 500 MG TAB.ER.12H PO SCH ×2 (09:21→20:33)
[2021-02-19] MEDS: ERTAPENEM 0.5 GM in SODIUM CHLORIDE 0.9% 50 ML IVPB SCH (10:44)
[2021-02-19 11:34] LABS: Glucose,Whole Blood 158 mg/dL (75-99)
[2021-02-19] MEDS ORDERED: FUROSEMIDE 10 MG/ML 4 ML VIAL IV STA (11:43)
--- NOTE | 2021-02-19 12:45 | P.PN ---
Subjective Progress Note Date: 02/19/21 HISTORY OF PRESENT ILLNESS: Patient is a pleasant 75-year-old female with history of coronary artery disease with numerous stenting, diabetes mellitus, hypertension, mild CK D who presented to the hospital 02/15/2021 with weakness, lack of energy, shortness breath. She states she was started on a new medication approximately one week ago for restless leg syndrome and believes there may been a complication from that. She initially presented with feeling shaky and off balance and lightheaded when she was standing and believes it may have been related to her medications. She was initially found to be in acute kidney injury and given IV fluids and PAPI inhibitor was held. 02/17/2021 Patient seen and examined. Patient admits the last few mornings she has been having a chest pressure/congestion that does not feel anything like her prior MIs. She states previously with her [place] at felt like a substernal this pain with diaphoresis and shortness breath and this just feels more like a pressure and believes she may be "coming down with a cold". She admits to mild shortness breath. She denies any cough. Blood work shows white blood cell 11.4, hemoglobin 9.6, sodium 136, BUN 34, creatinine 0.9. She does have chronic lower extremity edema related to chronic venous insufficiency and admits she does not keep her legs elevated enough. 02/18/2021 Patient examined this morning at the bedside. Patient denies chest pain or pressure. She denies shortnesss of breath. Vital signs are stable. Echo reveals EF 45-50%, basal inferior LV wall hypokinesis, apical lateral LV hypokinesis, and severe pulmonary hypertension. 02/19/2021 Patient examined this morning at the bedside. Patient denies chest pain or pressure. She denies shortness of breath. She has been up ambulate in her room with physical therapy. Telemetry reveals sinus mechanism. Vital signs are st able. PHYSICAL EXAM: VITAL SIGNS: Reviewed. GENERAL: Well-developed in no acute distress. NECK: Supple. No JVD or thyromegaly LUNGS: Respirations even and unlabored. Lungs essentially clear to auscultation bilaterally. HEART: Regular rate and rhythm. S1 and S2 heard. EXTREMITIES: Normal range of motion. No clubbing or cyanosis. Peripheral pulses intact. No lower extremity edema ASSESSMENT: Chest pain NSTEMI Coronary artery disease with previous PCI Acute kidney injury, resolved Elevated LFTs Chronic systolic heart failure Ischemic cardiomyopathy with ejection fraction 35-40% PLAN: Increase Coreg to 12.5 mg twice a day Continue additional cardiac medications Statin on hold due to LFTs PAPI/ARB on hold due to JAZZ, although resolving. May resume outpatient. No further inpatient recommendations from a cardiac standpoint. We will sign off. Please reconsult if needed. Nurse practitioner note has been reviewed by physician. Signing provider agrees with the documented findings, assessment, and plan of care. Objective - Vital Signs Vital signs: Vital Signs Temp 98.2 F 02/19/21 11:23 Pulse 74 02/19/21 11:51 Resp 18 02/19/21 11:23 BP 150/76 02/19/21 11:23 Pulse Ox 95 02/19/21 11:23 Intake & Output 02/18/21 02/19/21 02/19/21 18:59 06:59 18:59 Intake Total 660 180 Output Total 600 Balance 660 -600 180 Weight 116.7 kg Intake: Oral 660 180 Output: Urine 600 Other: Voiding Method Toilet Toilet Toilet # Voids 0 1 # Bowel Movements 0 - Labs CBC & Chem 7: 02/19/21 07:56 02/19/21 07:56 Labs: Abnormal Lab Results - Last 24 Hours (Table) 02/18/21 02/18/21 02/19/21 Range/Units 16:42 19:51 04:23 Hgb (11.4-16.0) gm/dL Hct (34.0-46.0) % MCV (80.0-100.0) fL MCH (25.0-35.0) pg MCHC (31.0-37.0) g/dL RDW (11.5-15.5) % Sodium (137-145) mmol/L Potassium (3.5-5.1) mmol/L BUN (7-17) mg/dL Creatinine (0.52-1.04) mg/dL Glucose (74-99) mg/dL POC Glucose (mg/dL) 149 H 160 H (75-99) mg/dL AST (14-36) U/L ALT (4-34) U/L Total Protein (6.3-8.2) g/dL Albumin (3.5-5.0) g/dL Urine Appearance Cloudy H (Clear) Urine Protein Trace H (Negative) Ur Leukocyte Esterase Small H (Negative) Urine WBC 6 H (0-5) /hpf Ur Squamous Epith Cells 9 H (0-4) /hpf Urine Bacteria Rare H (None) /hpf Hyaline Casts 27 H (0-2) /lpf Urine Mucus Rare H (None) /hpf 02/19/21 02/19/21 02/19/21 Range/Units 06:00 07:56 07:56 Hgb 9.1 L (11.4-16.0) gm/dL Hct 30.9 L (34.0-46.0) % MCV 78.5 L (80.0-100.0) fL MCH 23.2 L (25.0-35.0) pg MCHC 29.6 L (31.0-37.0) g/dL RDW 18.4 H (11.5-15.5) % Sodium 130 L (137-145) mmol/L Potassium 5.2 H (3.5-5.1) mmol/L BUN 26 H (7-17) mg/dL Creatinine 1.36 H (0.52-1.04) mg/dL Glucose 135 H (74-99) mg/dL POC Glucose (mg/dL) 142 H (75-99) mg/dL AST 73 H (14-36) U/L ALT 180 H (4-34) U/L Total Protein 6.2 L (6.3-8.2) g/dL Albumin 3.4 L (3.5-5.0) g/dL Urine Appearance (Clear) Urine Protein (Negative) Ur Leukocyte Esterase (Negative) Urine WBC (0-5) /hpf Ur Squamous Epith Cells (0-4) /hpf Urine Bacteria (None) /hpf Hyaline Casts (0-2) /lpf Urine Mucus (None) /hpf 02/19/21 Range/Units 11:32 Hgb (11.4-16.0) gm/dL Hct (34.0-46.0) % MCV (80.0-100.0) fL MCH (25.0-35.0) pg MCHC (31.0-37.0) g/dL RDW (11.5-15.5) % Sodium (137-145) mmol/L Potassium (3.5-5.1) mmol/L BUN (7-17) mg/dL Creatinine (0.52-1.04) mg/dL Glucose (74-99) mg/dL POC Glucose (mg/dL) 158 H (75-99) mg/dL AST (14-36) U/L ALT (4-34) U/L Total Protein (6.3-8.2) g/dL Albumin (3.5-5.0) g/dL Urine Appearance (Clear) Urine Protein (Negative) Ur Leukocyte Esterase (Negative) Urine WBC (0-5) /hpf Ur Squamous Epith Cells (0-4) /hpf Urine Bacteria (None) /hpf Hyaline Casts (0-2) /lpf Urine Mucus (None) /hpf Microbiology - Last 24 Hours (Table) 02/15/21 19:04 Urine Culture - Final Urine,Voided Citrobacter braakii Klebsiella pneumoniae
--- NOTE | 2021-02-19 14:17 | PN ---
PROGRESS NOTE Patient is seen for followup for acute kidney injury. Renal function has improved. Serum creatinine, however, slightly high at 1.3 from 0.9 two days ago. Previous creatinine has been 0.7-0.8 mg/dL. Currently patient has evidence of volume overload. She was maintained on IV fluids which are now discontinued. No significant complaints of chest pains or shortness of breath. PHYSICAL EXAMINATION: On examination today, blood pressure 150/76, heart rate 71 per minute. She is afebrile. Examination of the heart S1, S2. Examination of the lungs, bilateral breath sounds are heard. Decreased breath sounds at bases. Abdomen is soft, obese, nontender. Examination of lower extremities shows edema 2+ bilaterally. GLASS INSPECTOR exam grossly intact. LAB: Show sodium 130, potassium 5.2, BUN 26, creatinine 1.36, hemoglobin 9.1 g/dL. ASSESSMENT: 1. Acute kidney injury, currently improved. 2. Volume overload. I will resume loop diuretics. 3. Urinary tract infection with urine culture growing Citrobacter Braaki maintained on Ertapenem. 4. Hyperkalemia associated with acute kidney injury, metabolic acidosis, Aldactone currently improved. 5. Lactic acidosis, now improved. PLAN: Continue off IV fluids. Resume diuretics. Repeat labs in a.m. MMODL / IJN: [id number] /
[2021-02-19 16:15] LABS: Glucose,Whole Blood 124 mg/dL (75-99)
[2021-02-19] MEDS: FUROSEMIDE 40 MG TAB PO SCH (17:33)
[2021-02-19] MEDS: carvediloL 12.5 MG TAB PO SCH (17:33)
[2021-02-19 19:50] LABS: Glucose,Whole Blood 147 mg/dL (75-99)
[2021-02-19] MEDS: INSULIN ASPART (NovoLOG) 100 UNIT/ML VIAL SQ SCH (20:33)
[2021-02-19] MEDS: MONTELUKAST 10 MG TAB PO SCH (20:33)
--- NOTE | 2021-02-19 23:35 | PN ---
PROGRESS NOTE DATE OF SERVICE: 02/19/2021 REASON FOR FOLLOWUP: 1. Urinary tract infection. 2. cellulitis. INTERVAL HISTORY: Patient is afebrile. The patient is breathing comfortably, feeling better after she did have bowel movement. No chest pain, shortness of breath or cough. No abdominal pain or pain to the lower extremity wound area. PHYSICAL EXAMINATION: Blood pressure 113/74, pulse of 71, temperature 98.1. She is 93% on room air. General description is an elderly female up in the chair in no distress. Respiratory system: Unlabored breathing, clear to auscultation anteriorly. Heart S1, S2. Regular rate and rhythm. Abdomen soft, no tenderness. LABS: Hemoglobin is 9.1, white count 9.3, creatinine 1.36. Repeat urine is significantly negative. DIAGNOSTIC IMPRESSION AND PLAN: 1. Patient with gram-negative urinary tract infection with Acinetobacter and Klebsiella, adequately treated. The patient will not need antibiotic on discharge. 2. Patient with bilateral diabetic foot ulcer and if the patient ends up staying here on Wednesday we will have the wound care remove the cast. Continue supportive care. MMODL / IJN: [id number] /
--- NOTE | 2021-02-19 23:52 | PN ---
PROGRESS NOTE The patient has a UTI with urosepsis, chronic kidney disease, hypertension, diabetes mellitus, atrial fibrillation. She has a drug-resistant UTI. She wants to go to a rehab center, [facility]. Continues with physical therapy. Cardiovascular: S1, S2. Lungs: Clear. GI soft. Hematology negative Homans. Psych: Fair mood and affect. ASSESSMENT: 1. Chest pain, non STEMI. 2. Coronary artery disease. 3. Acute kidney injury. 4. Elevated LFTs. 5. Chronic systolic heart failure. 6. Ischemic cardiomyopathy. 7. Urinary tract infection with urosepsis. Coreg, statins, PAPI, ARB, cefepime, per Dr. Perez. Follow up with the rehab center at [facility] under Dr. Medardo Grande. MMODL / FELICITASN: [id number] /
[2021-02-20] MEDS: HYDROcodone/APAP 7.5-325MG 1 EACH TAB PO SCH ×4 (02:25→20:32)
[2021-02-20 07:03] LABS: Glucose,Whole Blood 108 mg/dL (75-99)
[2021-02-20] MEDS: INSULIN ASPART (NovoLOG) 100 UNIT/ML VIAL SQ SCH ×4 (07:05→20:31)
[2021-02-20 07:06] LABS: Anisocytosis Slight; Basophils % (A) 0 %; Eosinophils # (A) 0.2 k/uL (0-0.7); Eosinophils % (A) 3 %; HCT 31.4 % (34.0-46.0); HGB 9.6 gm/dL (11.4-16.0); Hypochromasia Moderate; Lymphocytes # (A) 0.9 k/uL (1.0-4.8); Lymphocytes % (A) 11 %; MCH 23.7 pg (25.0-35.0); MCHC 30.7 g/dL (31.0-37.0); MCV 77.4 fL (80.0-100.0); Mean Platelet Volume 6.6; Microcytosis Slight; Monocytes # (A) 0.6 k/uL (0-1.0); Monocytes % (A) 7 %; Neutrophils # (A) 6.2 k/uL (1.3-7.7); Neutrophils % (A) 78 %; Platelet Count 291 k/uL (150-450); RBC 4.05 m/uL (3.80-5.40); RDW 18.7 % (11.5-15.5)
[2021-02-20 07:54] LABS: Albumin 3.3 g/dL (3.5-5.0); Calcium 9.4 mg/dL (8.4-10.2); Potassium 4.6 mmol/L (3.5-5.1); Total Bilirubin 0.6 mg/dL (0.2-1.3); Total Protein 6.1 g/dL (6.3-8.2)
[2021-02-20] MEDS: IPRATROPIUM 0.5 MG/2.5 ML NEBU INHALATION SCH ×4 (07:56→21:27)
[2021-02-20] MEDS: ASPIRIN 81 MG PO SCH (08:58)
[2021-02-20] MEDS: metFORMIN 500 MG TAB PO SCH ×2 (08:58→20:31)
[2021-02-20] MEDS: FERROUS SULFATE 325 MG TAB PO SCH (08:59)
[2021-02-20] MEDS: ISOSORBIDE MONONITRATE ER 60 MG TAB.ER.24H PO SCH (08:59)
[2021-02-20] MEDS: carvediloL 12.5 MG TAB PO SCH ×2 (08:59→16:45)
[2021-02-20] MEDS: FUROSEMIDE 40 MG TAB PO SCH ×2 (08:59→16:45)
[2021-02-20] MEDS: PANTOPRAZOLE 40 MG TABLET PO SCH ×2 (08:59→16:45)
[2021-02-20] MEDS: CLOPIDOGREL 75 MG TAB PO SCH (08:59)
--- NOTE | 2021-02-20 09:46 | CDI ---
Documentation Clarification Form Date: 02/20/2021 09:05:00 AM From: Cherry Noel RN, CCDS Admit Date: 02/15/2021 07:47:00 PM Patient Name: Lorelei Brand Visit Number: [id number] Discharge Date: ATTENTION: The Clinical Documentation Specialists (CDI) and [facility] Coding Staff appreciate your assistance in clarifying documentation. Please respond to the clarification below the line at the bottom and electronically sign. The CDI & [facility] Coding staff will review the response and follow-up if needed. Please note: Queries are made part of the Legal Health Record. If you have any questions, please contact the author of this message via ITS. Dr. Medardo Grande There is documentation of Urosepsis is in the H/P and subsequent progress notes. Additional clarification is requested. 02/16 ID: Patient positive weakness denies fever, elevated white count positive UA concerning for asymptomatic urinary tract infection. History/Risk Factors: Diabetic Foot ulcer, Diabetes mellitus, Hypertension, Clinical Indicators: 75-year-old female came in for weakness, was found to have a UTI with final culture on 02/15/21 showing Citrobacter braaki Klebsiella pneumonia and was ruled in for sepsis. 02/15 Vital signs: 96/58 44 20 97.8 99 % 3/L NC, 96/37 40 19 97% 3/L NC 02/15 Labs: WBC 13.0, Neutrophils 10.2, Potassium 6.0, BUN 57, CR 1.95, Lactic acid 3.4,3.8; UA Large Leukocyte Esterase WBC many Treatment: Cefepime HCL 2 GM IVPB Q12HR 02/19- Invanz 1 GM IVPB 02/15 Invanz .5 GM IVPB Q HS 02/16-02/19 Monitor Vital signs, labs per orders/protocol Can you please clarify Urosepsis? [ ] UTI [ ] UTI with Sepsis (specify indications for sepsis) [ ] Other, please specify [ ] Unable to determine (Template Last Revised: July 2020) 9.Urinary tract infection with sepsis, present on admission. Dictated By: Marcelle Gee MD Signed By: ITALO/ 10 TD/TT:02/20/[id number] SE
[2021-02-20] MEDS: RANOLAZINE 500 MG TAB.ER.12H PO SCH ×2 (10:03→20:33)
[2021-02-20] MEDS: CEFEPIME 2 GM in SODIUM CHLORIDE 0.9% 100 ML IVPB SCH ×2 (10:03→20:32)
[2021-02-20] MEDS: rOPINIRole HCL 4 MG TABLET PO SCH ×3 (11:04→21:39)
[2021-02-20 11:18] LABS: Glucose,Whole Blood 156 mg/dL (75-99)
--- NOTE | 2021-02-20 12:43 | ECHOF ---
Referral Reason:re: NSTEMI MEASUREMENTS -------- HEIGHT: 170.2 cm WEIGHT: 114.3 kg BP: 162/84 RVIDd: 3.5 cm (< 3.3) IVSd: 1.5 cm (0.6 - 1.1) LVIDd: 5.1 cm (3.9 - 5.3) LVPWd: 1.3 cm (0.6 - 1.1) IVSs: 1.6 cm LVIDs: 3.8 cm LVPWs: 2.1 cm LA Diam: 4.6 cm (2.7 - 3.8) LAESV Index (A-L): 29.09 ml/m Ao Diam: 3.2 cm (2.0 - 3.7) AV Cusp: 2.0 cm (1.5 - 2.6) MV EXCURSION: 15.119 mm (> 18.000) MV EF SLOPE: 32 mm/s (70 - 150) EPSS: 2.0 cm MV E Dorian: 0.98 m/s MV DecT: 154 ms MV A Dorian: 1.15 m/s MV E/A Ratio: 0.86 RAP: 15.00 mmHg RVSP: 62.82 mmHg FINDINGS -------- Sinus rhythm. This was a technically difficult study with suboptimal views. The left ventricular size is normal. There is moderate concentric left ventricular hypertrophy. O verall left ventricular systolic function is mildly impaired with, an EF between 45 - 50 %. Basal i nferior LV wall motion is hypokinetic. Apical lateral LV wall motion is hypokinetic. 5.0mg of Lumason was utilized for enhancement of images Interatrial and interventricular septum intact. There is mild aortic valve sclerosis. Mild mitral annular calcification present. There is trace to mild mitral regurgitation. Mild tricuspid regurgitation present. There is severe pulmonary hypertension. The right ventricul ar systolic pressure, as measured by Doppler, is 62.82mmHg. Trace/mild (physiologic) pulmonic regurgitation. The aortic root size is normal. The inferior vena cava is dilated with no significant inspiratory collapse which is consistent estima severo right atrial pressure of >15 mmHg. There is no pericardial effusion. CONCLUSIONS -------- 1. The left ventricular size is normal. 2. There is moderate concentric left ventricular hypertrophy. 3. Overall left ventricular systolic function is mildly impaired with, an EF between 45 - 50 %. 4. Basal inferior LV wall motion is hypokinetic. 5. Apical lateral LV wall motion is hypokinetic. 6. 5.0mg of Lumason was utilized for enhancement of images 7. Mild mitral annular calcification present. 8. There is trace to mild mitral regurgitation. 9. Mild tricuspid regurgitation present. 10. There is severe pulmonary hypertension. 11. The right ventricular systolic pressure, as measured by Doppler, is 62.82mmHg. 12. Trace/mild (physiologic) pulmonic regurgitation. 13. The inferior vena cava is dilated with no significant inspiratory collapse which is consistent es timated right atrial pressure of >15 mmHg. 14. There is no pericardial effusion. [employer]CRA[employer] UPHOLSTERER: Shabana Nova RDCS
[2021-02-20 14:37] VITALS: BMI 40.3
[2021-02-20 16:43] LABS: Glucose,Whole Blood 131 mg/dL (75-99)
--- NOTE | 2021-02-20 17:04 | PN ---
PROGRESS NOTE DATE OF SERVICE: 02/20/2021 REASON FOR FOLLOWUP: 1. Urinary tract infection. 2. Bilateral diabetic foot ulcers and cellulitis. INTERVAL HISTORY: The patient is afebrile. The patient is currently breathing comfortably. Denies any chest pain, shortness of breath or cough. No nausea, no vomiting. No abdominal pain or pain to the lower extremity wound areas. PHYSICAL EXAMINATION: Blood pressure is 138/58 with a pulse of 63, temperature 98.8. She is 92% on 2 L nasal cannula. General description is an elderly female lying in bed in no distress. RESPIRATORY SYSTEM: Unlabored breathing. Clear to auscultation anteriorly. HEART: S1, S2. Regular rate and rhythm. ABDOMEN: Soft. No tenderness. LABS: Hemoglobin is 9.3, white count 8.0. BUN of 24, creatinine 0.92. Repeat urine is negative so far. DIAGNOSTIC IMPRESSION AND PLAN: 1. Patient with Citrobacter and Klebsiella urinary tract infection, drug-resistant, adequately treated. Repeat urine is negative. There is no need for antibiotic on discharge. 2. Patient with a left diabetic foot wound with ulcer, currently being treated with should be removed by the wound care team tomorrow. Subsequently apply Aquacel Silver dressing. 3. Right diabetic foot ulcer. Local care to continue with Aquacel Silver dressing. Continue with supportive care. MMODL / IJN: [id number] /
[2021-02-20] MEDS: MONTELUKAST 10 MG TAB PO SCH (20:30)
[2021-02-20 20:31] LABS: Glucose,Whole Blood 149 mg/dL (75-99)
[2021-02-20 21:29] VITALS: RESP 17
--- NOTE | 2021-02-20 21:45 | PN ---
PROGRESS NOTE DATE OF SERVICE: 02/20/2021 This 75-year-old woman was admitted with UTI, chronic kidney disease has CHF also. Patient also has gait dysfunction. PT/OT is evaluating the patient for ECF rehab. No chest pain. No palpitations. No fever. PHYSICAL EXAMINATION: Alert and oriented x3. Pulse 63, blood pressure 113/58, respirations 17, temperature 98.8, pulse ox 92% on 2 L. HEENT: Conjunctivae normal. NECK: No jugular venous distention. CARDIOVASCULAR: S1, S2 muffled. RESPIRATION: Breath sounds diminished at the bases. A few scattered rhonchi. ABDOMEN: Soft. NERVOUS SYSTEM: No focal deficit. LABS: Hemoglobin 9.6. Sodium 130. Other labs are noted. ASSESSMENT: 1. Chest pain; acute klm-HD-ejhpykz-elevation myocardial infarction. 2. Acute urinary tract infection. 3. Acute kidney injury. 4. History of coronary artery disease. 5. Elevated liver function tests. 6. History of congestive heart failure, chronic systolic. 7. History of ischemic cardiomyopathy. 8. Gait dysfunction. 9. Urinary tract infection with sepsis, present on admission. RECOMMENDATIONS AND DISCUSSION: I recommend to continue current medications, continue with symptomatic treatment. Follow closely with Infectious Disease. PT/OT evaluation; possible ECF rehab. Guarded prognosis. Further recommendations to follow. The patient would like to go to [facility] under Dr. Grande. ANTHONY / JIMENA: [id number] /
[2021-02-21] MEDS: HYDROcodone/APAP 7.5-325MG 1 EACH TAB PO SCH ×5 (03:00→16:23)
[2021-02-21 06:53] LABS: Glucose,Whole Blood 112 mg/dL (75-99)
[2021-02-21] MEDS: INSULIN ASPART (NovoLOG) 100 UNIT/ML VIAL SQ SCH ×2 (07:05→12:28)
[2021-02-21] MEDS: carvediloL 12.5 MG TAB PO SCH (08:47)
[2021-02-21] MEDS: PANTOPRAZOLE 40 MG TABLET PO SCH (08:47)
[2021-02-21] MEDS: CLOPIDOGREL 75 MG TAB PO SCH (08:47)
[2021-02-21] MEDS: ISOSORBIDE MONONITRATE ER 60 MG TAB.ER.24H PO SCH (08:47)
[2021-02-21] MEDS: metFORMIN 500 MG TAB PO SCH (08:47)
[2021-02-21] MEDS: FUROSEMIDE 40 MG TAB PO SCH ×2 (08:47→16:23)
[2021-02-21] MEDS: ASPIRIN 81 MG PO SCH (08:47)
[2021-02-21] MEDS: CEFEPIME 2 GM in SODIUM CHLORIDE 0.9% 100 ML IVPB SCH (08:47)
[2021-02-21] MEDS: FERROUS SULFATE 325 MG TAB PO SCH (08:47)
[2021-02-21] MEDS: rOPINIRole HCL 4 MG TABLET PO SCH ×2 (08:50→16:25)
[2021-02-21] MEDS: RANOLAZINE 500 MG TAB.ER.12H PO SCH (08:50)
[2021-02-21] MEDS: IPRATROPIUM 0.5 MG/2.5 ML NEBU INHALATION SCH ×2 (09:09→11:48)
--- NOTE | 2021-02-21 10:25 | P.CONS ---
History of Present Illness - Reason for Consult Consult date: 02/21/21 wound care - History of Present Illness this is a 75-year-old patient being seen on 4 S. by the wound care center for nonhealing ulceration to bilateral plantar aspects of the forefoot. Patient currently has a total contact cast in place to her left lower extremity. She is followed at [facility]. Her right plantar ulceration is being treated with absorptive Silver. Total contact cast has been on for a pproximately 7 days. Patient states that she will have it removed today. She is anticipating to be discharged today to rehab. Patient's past medical history significant for asthma, coronary artery disease, heart failure, COPD, diabetes, acid reflux, hyperlipidemia, hypertension, myocardial infarction, osteoporosis, neuropathy to bilateral feet, and obstructive sleep apnea Review Of Systems: Constitutional: No fever, no chills, no night sweats. No weight change. No weakness, fatigue or lethargy. No daytime sleepiness. Integumentary:reports wounds, no lesions. No rash or pruritus. No unusual bruising. No change in hair or nails. Physical exam: General Appearance: Alert, cooperative, no distress, appears stated age. Skin: See HPI all other Skin color, texture, tugor normal, no rashes or lesions. Neurologic: Alert oriented x3 Assessment/plan: 1. Diabetic foot ulcer right plantar.. Continue with absorptive silver 2. Diabetic foot ulcer left plantar. Total contact cast in place. Remove TCC today by wound care center. Apply collagen silver, saline moist gauze, dry gauze and rolled gauze and secure with tape. thank you for the consultation any questions please contact the wound care center DNP note has been reviewed and discussed with Dr. Hinson and the impression a nd plan of care has been directed as dictated. 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, cardiomyopathy, N IDDM type II, neuropathy bilateral feet, bilateral diabetic foot ulcers, past cellulitis, pneumonias, past R lung pne with empyema/surgery, gastritis, colitis/frequent diarrhea, benign colon polyps, renal disease stage III, IRA with no device used d/t severe clausterphobia, home oxygen at 2L/NC, occasional lower leg edema, RLS, recent fall with bruising, laquita feet lt foot 2nd toe wound has lt foot cast Last Myocardial Infarction Date:: 2020 History of Any Multi-Drug Resistant Organisms: None Reported Past Surgical History: Appendectomy, Breast Surgery, Cholecystectomy, Heart Catheterization, Heart Catheterization With Stent Additional Past Surgical History / Comment(s): PCI with stents, R lung thoracotomy/decortication for empyema, bilateral feet/sores debrided, L breast benign bx, colonoscopy/benign polypectomy, EGD Past Anesthesia/Blood Transfusion Reactions: No Reported Reaction Additional Past Anesthesia/Blood Transfusion Reaction / Comm: severe claustrophobia Date of Last Stent Placement:: 11/27/19 Past Psychological History: No Psychological Hx Reported Additional Psychological History / Comment(s): Severe claustrophobia. Pt resides alone in her home. She has 14 stair steps to get up to her bathroom/bedroom. She is established with [facility]- a nurse for wound care and PT and has Dr. Kebede for home wound care. Smoking Status: Former smoker Past Alcohol Use History: None Reported Additional Past Alcohol Use History / Comment(s): STARTED SMOKING AGE 18 (1963) AND QUIT 1994. SMOKED 1 PPD. STATES SHE IS AN ALCOHOLIC AND QUIT DRINKING over 30 yrs ago Past Drug Use History: None Reported - Past Family History Brother(s) Family Medical History: Cancer Additional Family Medical History / Comment(s): Colon cancer Father Family Medical History: Chest Pain / Angina Additional Family Medical History / Comment(s): Father of a LA at the age of 77yrs. Mother Family Medical History: Chest Pain / Angina Additional Family Medical History / Comment(s): Mother of a LA at the age of 74yrs. Medications and Allergies Home Medications Medication Instructions Recorded Confirmed Type Montelukast Sodium [Singulair] 10 mg PO HS #30 tab 10/25/15 02/15/21 Rx Dulaglutide [Trulicity] 1.5 mg SQ KISER 08/15/19 02/15/21 History Insulin Aspart Protam & Aspart 30 unit SQ BID 08/15/19 02/15/21 History [NovoLOG MIX 70-30 Flexpen] Ranolazine [Ranexa] 500 mg PO Q12HR #60 tab.er.12h 11/08/19 02/15/21 Rx Atorvastatin [Lipitor] 80 mg PO HS 02/09/20 02/15/21 History metFORMIN HCL [Glucophage] 1,000 mg PO BID 02/09/20 02/15/21 History HYDROcodone/APAP 7.5-325MG [[place] 1 tab PO Q6H 04/12/20 02/15/21 History 7.5-325] Pantoprazole [Protonix] 40 mg PO AC-BID 30 Days #60 07/08/20 02/15/21 Rx tablet. Spironolactone [Aldactone] 25 mg PO DAILY 90 Days #90 tab 07/08/20 02/15/21 Rx Budesonide/Formoterol Fumarate 2 puff INHALATION RT-BID 09/30/20 02/15/21 History [Symbicort 160-4.5 Mcg Inhaler] lisinopriL [Zestril] 20 mg PO BID 09/30/20 02/15/21 History Furosemide [Lasix] 40 mg PO DAILY tab 10/04/20 02/15/21 Rx Isosorbide Mononitrate ER [Imdur] 60 mg PO DAILY 12/01/20 02/15/21 History Metoclopramide [Reglan] 10 mg PO QID PRN 12/01/20 02/15/21 History Metoprolol Tartrate [Lopressor] 75 mg PO BID 12/01/20 02/15/21 History Sucralfate [Carafate] 1 gm PO QID 12/01/20 02/15/21 History Tiotropium 18 Mcg/Puff [Spiriva] 1 puff INHALATION RT-BID 12/01/20 02/15/21 History hydrALAZINE HCL [Apresoline] 50 mg PO BID 12/01/20 02/15/21 History rOPINIRole HCL [Requip] 4 mg PO TID 12/01/20 02/15/21 History Ferrous Sulfate [Iron (65 MG 325 mg PO DAILY 12/15/20 02/15/21 History Elemental)] Aspirin 81 mg PO DAILY chew 12/18/20 02/15/21 Rx Clopidogrel [Plavix] 75 mg PO DAILY tab 12/18/20 02/15/21 Rx Nitroglycerin Sl Tabs [Nitrostat] 0.4 mg SUBLINGUAL Q5M PRN tab 12/18/20 02/15/21 Rx Allergies Allergy/AdvReac Type Severity Reaction Status Date / Time amoxicillin [From Augmentin] Allergy Rash/Hives Verified 02/15/21 19:23 cefuroxime Allergy Unknown Verified 02/15/21 19:23 ciprofloxacin [From Cipro] Allergy Unknown Verified 02/15/21 19:23 clavulanic acid Allergy Rash/Hives Verified 02/15/21 19:23 [From Augmentin] doxycycline Allergy Unknown Verified 02/15/21 19:23 metronidazole [From Flagyl] Allergy Nausea & Verified 02/15/21 19:23 Vomiting adhesive tape AdvReac bruises,"paper Verified 02/15/21 19:23 tape is ok" albuterol AdvReac Rapid Verified 02/15/21 19:23 Heart Rate stress test injection Allergy Anaphylaxis Uncoded 02/15/21 19:23 Physical Exam Vitals: Vital Signs Temp Pulse Pulse Resp BP BP Pulse Ox 02/21/21 09:21 84 02/21/21 09:09 80 02/21/21 07:45 98.4 F 78 17 119/57 92 L 02/21/21 01:24 97.2 F L 69 143/75 95 02/20/21 21:35 72 02/20/21 21:27 70 02/20/21 19:40 97.9 F 83 17 150/82 143/76 95 02/20/21 16:58 68 02/20/21 16:48 64 02/20/21 14:00 98.8 F 63 17 113/58 92 L 02/20/21 11:33 70 02/20/21 11:24 76 Intake and Output 02/20/21 02/21/21 02/21/21 22:59 06:59 14:59 Intake Total 350 Output Total 300 Balance 50 Intake: Oral 350 Output: Urine 300 Other: Voiding Method Toilet Toilet # Voids 3 5 # Bowel Movements 1 Results CBC & Chem 7: 02/20/21 06:26 02/20/21 06:26 Labs: Abnormal Lab Results - Last 24 Hours (Table) 02/20/21 02/20/21 02/20/21 Range/Units 11:17 16:41 20:25 POC Glucose (mg/dL) 156 H 131 H 149 H (75-99) mg/dL 02/21/21 Range/Units 06:52 POC Glucose (mg/dL) 112 H (75-99) mg/dL Assessment and Plan (1) Diabetes mellitus with foot ulcer Current Visit: No Status: Acute Code(s): E11.621 - TYPE 2 DIABETES MELLITUS WITH FOOT ULCER; L97.509 - NON-PRESSURE CHRONIC ULCER OTH PRT UNSP FOOT W UNSP SEVERITY SNOMED Code(s): 30833718 (2) Non-healing ulcer of left foot with fat layer exposed Current Visit: No Status: Acute Code(s): L97.522 - NON-PRS CHRONIC ULCER OTH PRT LEFT FOOT W FAT LAYER EXPOSED SNOMED Code(s): 462971630 (3) Non-healing ulcer of right foot with fat layer exposed Current Visit: No Status: Acute Code(s): L97.512 - NON-PRS CHRONIC ULCER OTH PRT RIGHT FOOT W FAT LAYER EXPOSED SNOMED Code(s): 406137253
[2021-02-21 11:00] LABS: Glucose,Whole Blood 144 mg/dL (75-99)
--- NOTE | 2021-02-21 14:21 | PN ---
PROGRESS NOTE DATE OF SERVICE: 02/21/2021 REASON FOR FOLLOWUP: 1. Urinary tract infection. 2. Bilateral diabetic foot ulcers. INTERVAL HISTORY: The patient is afebrile. The patient is breathing comfortably. The patient denies having any chest pain, shortness of breath or cough. No abdominal pain or pain to the bilateral foot wound areas. PHYSICAL EXAMINATION: Blood pressure 119/57, pulse of 78, temperature 98.4. She is 92% on room air. General description is an elderly female lying in bed in no distress. RESPIRATORY SYSTEM: Unlabored breathing. Clear to auscultation anteriorly. HEART: S1, S2. Regular rate and rhythm. ABDOMEN: Soft. No tenderness. Bilateral foot wounds with no significant swelling, redness or drainage. DIAGNOSTIC IMPRESSION AND PLAN: 1. Patient with a urinary tract infection, adequately treated. No need for antibiotic on discharge. 2. Bilateral foot ulcers. No cellulitis. Local care with Aquacel Silver dressing. To follow up in the Wound Center post discharge. MMODL / IJN: [id number] /
--- NOTE | 2021-02-21 14:34 | P.DS ---
Providers Date of admission: 02/15/21 19:47 Expected date of discharge: 02/21/21 Attending physician: Medardo Grande Consults: 02/15/21 19:57 Consult Physician Routine Consulting Provider: Ilya Sims Consult Reason/Comments: shala Do you want consulting provider notified?: Yes 02/15/21 20:54 Consult Physician Routine Consulting Provider: Joanne Preez Consult Reason/Comments: urosepsis Do you want consulting provider notified?: Yes 02/19/21 13:07 Consult Physician Routine Consulting Provider: Joanne Perez Consult Reason/Comments: home iv abs Do you want consulting provider notified?: Yes [facility]: Final diagnosis Chest pain, acute non-ST segment elevation myocardial infarction Bilateral diabetic foot ulcers Acute kidney injury Hyponatremia History of coronary artery disease with an elevated liver function tests history of congestive heart failure chronic systolic history of ischemic cardiomyopathy Gait dysfunction Urinary tract infection with sepsis, present on admission Full code Discharge disposition Patient is being discharged in a stable condition with guarded prognosis to [facility]. Patient will follow-up with Dr. Moran upon discharge. Patient will continue to follow-up at the wound care center in the outpatient setting. Patient will also continue on a prednisone taper in the outpatient setting. Total time taken is 35 minutes. Hospital course This is a 75-year-old female who was recently admitted with urinary tract infection, chronic kidney disease and also CHF and was being closely monitored. Patient also had extreme weakness and bilateral foot ulcers from diabetes with continued gait dysfunction. patient being closely followed by infectious disease along with wound care center and patient to continue with local wound care with Aquacel silver dressing to the right diabetic foot ulcer along with the left foot as well and wound care center has removed the total contact cast. No antibiotics required on discharge per infectious disease. Patient was adequately treated for urinary tract infection drug-resistant with Citrobacter and Klebsiella with repeat culture being negative. Patient will need to continue to follow with the wound care center in the outpatient center in closely. Patient continues to be weak requiring PT/OT therapy and will be going to [facility] today. Currently no reports of chest pain, shortness of breath, or palpitations. Patient is afebrile. No reports of nausea or vomiting and patient is tolerating diet. Patient will be discharged to [facility] today. Guarded prognosis. On exam vital signs are stable. Cardio S1, S2 are muffled. Respiratory shows diminished breath sounds at the bases with no wheezing or rhonchi noted. Abdomen is soft and nontender. Nervous system shows mild diffuse weakness. Please refer to medication reconciliation sheet for a list of medications. Patient Condition at Discharge: Fair Plan - Discharge Summary Discharge Rx Participant: Yes New Discharge Prescriptions: New carvediloL [Coreg*] 12.5 mg PO BID-W/MEALS tab Furosemide [Lasix] 40 mg PO BID@0900,1600 tab Benzonatate [Tessalon Perles] 100 mg PO TID PRN cap PRN Reason: Cough Continue Montelukast Sodium [Singulair] 10 mg PO HS #30 tab Insulin Aspart Protam & Aspart [NovoLOG MIX 70-30 Flexpen] 30 unit SQ BID Dulaglutide [Trulicity] 1.5 mg SQ KISER Ranolazine [Ranexa] 500 mg PO Q12HR #60 tab.er.12h metFORMIN HCL [Glucophage] 1,000 mg PO BID Pantoprazole [Protonix] 40 mg PO AC-BID 30 Days #60 tablet. Isosorbide Mononitrate ER [Imdur] 60 mg PO DAILY Ferrous Sulfate [Iron (65 MG Elemental)] 325 mg PO DAILY Nitroglycerin Sl Tabs [Nitrostat] 0.4 mg SUBLINGUAL Q5M PRN tab PRN Reason: Chest Pain Budesonide/Formoterol Fumarate [Symbicort 160-4.5 Mcg Inhaler] 2 puff INHALATION RT-BID Metoclopramide [Reglan] 10 mg PO QID PRN PRN Reason: GERD rOPINIRole HCL [Requip] 4 mg PO TID Tiotropium 18 Mcg/Puff [Spiriva] 1 puff INHALATION RT-BID Aspirin 81 mg PO DAILY chew Clopidogrel [Plavix] 75 mg PO DAILY tab HYDROcodone/APAP 7.5-325MG [Sharon 7.5-325] 1 tab PO Q6H #10 tab Discontinued Atorvastatin [Lipitor] 80 mg PO HS Spironolactone [Aldactone] 25 mg PO DAILY 90 Days #90 tab lisinopriL [Zestril] 20 mg PO BID Furosemide [Lasix] 40 mg PO DAILY tab hydrALAZINE HCL [Apresoline] 50 mg PO BID Metoprolol Tartrate [Lopressor] 75 mg PO BID Sucralfate [Carafate] 1 gm PO QID Discharge Medication List Montelukast Sodium [Singulair] 10 mg PO HS #30 tab 10/25/15 [Rx] Dulaglutide [Trulicity] 1.5 mg SQ KISER 08/15/19 [History] Insulin Aspart Protam & Aspart [NovoLOG MIX 70-30 Flexpen] 30 unit SQ BID 08/15/19 [History] Ranolazine [Ranexa] 500 mg PO Q12HR #60 tab.er.12h 11/08/19 [Rx] metFORMIN HCL [Glucophage] 1,000 mg PO BID 02/09/20 [History] Pantoprazole [Protonix] 40 mg PO AC-BID 30 Days #60 tablet.dr 07/08/20 [Rx] Budesonide/Formoterol Fumarate [Symbicort 160-4.5 Mcg Inhaler] 2 puff INHALATION RT-BID 09/30/20 [History] Isosorbide Mononitrate ER [Imdur] 60 mg PO DAILY 12/01/20 [History] Metoclopramide [Reglan] 10 mg PO QID PRN 12/01/20 [History] Tiotropium 18 Mcg/Puff [Spiriva] 1 puff INHALATION RT-BID 12/01/20 [History] rOPINIRole HCL [Requip] 4 mg PO TID 12/01/20 [History] Ferrous Sulfate [Iron (65 MG Elemental)] 325 mg PO DAILY 12/15/20 [History] Aspirin 81 mg PO DAILY chew 12/18/20 [Rx] Clopidogrel [Plavix] 75 mg PO DAILY tab 12/18/20 [Rx] Nitroglycerin Sl Tabs [Nitrostat] 0.4 mg SUBLINGUAL Q5M PRN tab 12/18/20 [Rx] Benzonatate [Tessalon Perles] 100 mg PO TID PRN cap 02/21/21 [Rx] Furosemide [Lasix] 40 mg PO BID@0900,1600 tab 02/21/21 [Rx] HYDROcodone/APAP 7.5-325MG [Sharon 7.5-325] 1 tab PO Q6H #10 tab 02/21/21 [Rx] carvediloL [Coreg*] 12.5 mg PO BID-W/MEALS tab 02/21/21 [Rx] Follow up Appointment(s)/Referral(s): Medardo Grande MD [Primary Care Provider] - 1-2 days [facility] on [facility], [NON-STAFF] - As Needed [facility] [NON-STAFF] - Ambulatory/Diagnostic Orders: Complete Blood Count w/diff [LAB.AMB] Time Frame: 3 Days, Location: None Selected Activity/Diet/Wound Care/Special Instructions: Patient is going to [facility] [place] Activity as tolerated Patient follow with Dr. Dee Recommend Accu-Cheks before meals and at bedtime Continue to follow closely with the wound care center and TCC to be removed today Wound care consists of cleansing with normal saline on Mondays/Wednesdays/Wednesday or as needed if becoming soiled and use collagen silver, saline moist gauze, dry gauze, rolled gauze then secured paper tape and nonweightbearing to the left foot and utilize walker Continue with renal diet low potassium, low phosphorus, low sodium with no carrots or scrambled eggs Continue with Glucerna supplements of chocolate with breakfast Discharge Disposition: TRANSFER TO SNF/ECF
[2021-02-21 14:49] VITALS: BP 109/59; PULSE 67; TEMP 98.6
== END 2021-02-21 16:36 | DRG 871 ==
LOC: EC 16:34 → 6NMEDSUR 19:47 → OBSVTOIN 19:47 → 3SCARD 02-17 14:43 → 4SSUR 02-19 23:38
PROVIDERS: ADMIT Family Medicine; ATTEND Family Medicine
DX: A41.9 Sepsis, unspecified organism (principal); I21.4 Non-ST elevation (NSTEMI) myocardial infarction; N17.0 Acute kidney failure with tubular necrosis; B17.9 Acute viral hepatitis, unspecified; E87.1 Hypo-osmolality and hyponatremia; E87.2 Acidosis; I50.22 Chronic systolic (congestive) heart failure; I13.0 Hypertensive heart and chronic kidney disease with heart failure and stage 1 through stage 4 chronic kidney disease, or unspecified chronic kidney disease; J96.11 Chronic respiratory failure with hypoxia; L03.90 Cellulitis, unspecified; B02.9 Zoster without complications; B96.1 Klebsiella pneumoniae [K. pneumoniae] as the cause of diseases classified elsewhere; B96.89 Other specified bacterial agents as the cause of diseases classified elsewhere; D50.9 Iron deficiency anemia, unspecified; E11.22 Type 2 diabetes mellitus with diabetic chronic kidney disease; E11.40 Type 2 diabetes mellitus with diabetic neuropathy, unspecified; E11.621 Type 2 diabetes mellitus with foot ulcer; E78.5 Hyperlipidemia, unspecified; E87.5 Hyperkalemia; F40.240 Claustrophobia; G25.81 Restless legs syndrome; Z20.822 Contact with and (suspected) exposure to COVID-19; G47.33 Obstructive sleep apnea (adult) (pediatric); G89.29 Other chronic pain; L97.512 Non-pressure chronic ulcer of other part of right foot with fat layer exposed; I25.10 Atherosclerotic heart disease of native coronary artery without angina pectoris; I25.2 Old myocardial infarction; I25.5 Ischemic cardiomyopathy; I27.20 Pulmonary hypertension, unspecified; I48.91 Unspecified atrial fibrillation; I87.2 Venous insufficiency (chronic) (peripheral); J44.9 Chronic obstructive pulmonary disease, unspecified; K21.9 Gastro-esophageal reflux disease without esophagitis; L97.522 Non-pressure chronic ulcer of other part of left foot with fat layer exposed; M19.91 Primary osteoarthritis, unspecified site; M81.0 Age-related osteoporosis without current pathological fracture; N18.30 Chronic kidney disease, stage 3 unspecified; N30.90 Cystitis, unspecified without hematuria; R00.1 Bradycardia, unspecified; Z79.02 Long term (current) use of antithrombotics/antiplatelets; Z79.4 Long term (current) use of insulin; Z79.51 Long term (current) use of inhaled steroids; Z79.82 Long term (current) use of aspirin; R26.9 Unspecified abnormalities of gait and mobility; Z79.899 Other long term (current) drug therapy; Z80.0 Family history of malignant neoplasm of digestive organs; Z82.49 Family history of ischemic heart disease and other diseases of the circulatory system; Z87.891 Personal history of nicotine dependence; Z88.1 Allergy status to other antibiotic agents; Z95.5 Presence of coronary angioplasty implant and graft; Z86.010 Personal history of colon polyps
CPT/HCPCS: 36415; 71045; 76770; 80053; 80074; 81001; 83605; 83735; 83880; 84132; 84484; 85025; 85610; 85730; 87077; 87086; 87186; 87636; 93005; 93306; 94640; 94760; 99285